=== PATIENT | female | born 1965 | race Caucasian/White ===

== ENCOUNTER 2018-01-13 14:55 | Emergency (ER) | payer MEDICARE, SELFPAY ==
[2018-01-13 14:55] VITALS: BP 124/55; PULSE 64; RESP 16; TEMP 36.6; O2SAT 97; BMI 36.5
--- NOTE | 2018-01-13 15:13 | RAD_ITS ---
STUDY: X-RAY - LUMBAR SPINE REASON FOR EXAM: Female, 52 years old. Was pumping gas and had a sharp pain in left hip TECHNIQUE: 3 view(s) of the lumbar spine were obtained. COMPARISON: None FINDINGS: Normal lumbar lordosis. There is no substantial scoliosis. There is a normal alignment of the vertebrae. There is multilevel endplate spondylosis of the lumbar vertebrae. There is multi-level degenerative disc disease with multi-level disc space narrowing. There are atherosclerotic vascular calcifications. There is bilateral facet arthropathy. The soft tissue structures are unremarkable. RAD/Lumbar Spine 2 or 3 Views IMPRESSION: Degenerative changes of the spine, as detailed above. There are atherosclerotic vascular calcifications. Electronically Signed: Maicol Rutherford MD at 16:25 EDT , Service support ,
[2018-01-13 15:47] LABS: International Normalized Ratio 2.4; Prothrombin Time (Protime)PT. 26.1 SECONDS (11.7-14.9)
[2018-01-13] MEDS: fentaNYL 100 MCG/2 ML Ampul 50 MCG IM (15:49)
[2018-01-13] MEDS: Ondansetron 4 MG/2 ML Vial IM (15:49)
--- NOTE | 2018-01-13 16:00 | RAD_ITS ---
STUDY: X-RAY - PELVIS AND LEFT HIP REASON FOR EXAM: Female, 52 years old. Was pumping gas and had a sharp pain in left hip TECHNIQUE: Radiological exam, hip, unilateral, with pelvis when performed; 2 or 3 views. COMPARISON: None. FINDINGS: There is a non-specific bowel gas pattern. Normal visualized soft tissue structures. Normal bilateral iliac wings, sacroiliac joints and visualized sacrum. Normal bilateral superior and inferior pubic rami. Normal pubic symphysis. Normal bilateral ischial tuberosities. Normal visualized femoral head. Normal acetabulum. Normal hip joint. RAD/Hip 2-3 Views with Pelvis IMPRESSION: Normal x-ray examination of the pelvis and hip. Electronically Signed: Maicol Rutherford MD at 16:35 EDT , Service support ,
--- NOTE | 2018-01-13 16:53 | ED.DCSUM_ITS ---
- ER Visit Summary Date of Service: 01/13/18 Chief Complaint: Left hip pain and back pain History of Present Illness: The patient is a 52 F who twisted her left hip and back when getting out of a car earlier today. This happened at 10 AM, and it has continued to get worse. She denies any history of this. She did not fall. The pain does radiate down her left leg and she reports some numbness and tingling in her left toes. Denies abdominal pain or GI symptoms. Denies any urinary symptoms. She does not make very much urine and has end-stage renal disease. She did go to dialysis today. She also takes Coumadin and she is unsure of her INR. No fevers, skin changes, or any other associated symptoms. Physical Examination: Vital signs unremarkable and patient is afebrile. She appears uncomfortable but not toxic or in distress. Heart regular. Lungs clear. Abdomen soft, nontender, nondistended, no masses. Back was nontender and showed a normal inspection. Left hip showed a normal inspection. She did have diffuse pain on palpation over the greater trochanter region. Negative logroll. No shortening or abnormal rotation. She was neurovascularly intact distally. The skin appeared normal. Test Results: X-rays of the lumbar back and left hip show degenerative changes and vascular calcifications, but otherwise no acute abnormalities. Emergency Department Course and Treatment: Patient was treated with fentanyl and Zofran while awaiting results. She did have improvement in her pain. Her INR was therapeutic at 2.4. Her symptoms improved, but she had no change in her exam. She was able to ambulate without assistance. She would like to go home. I encouraged her to monitor for any new or worsening symptoms, abdominal pain, change in sensation, redness, warmth, swelling, fevers, or any other concerning symptoms. Return right away for any problems. Treatment Plan: Prescription database was unremarkable for any opioids. She was given a short course of Percocet and also some Flexeril. Disposition: Discharged Impression: 1. Left hip pain This note was generated with [employer] dictation software. It may contain incorrect words, spelling, and punctuation that were not noted in review of the chart prior to signing ED Disposition - Plan for ED Patient: Chief Complaint: Back Referrals: Tai Vieyra MD [Primary Care Provider] -
--- NOTE | 2018-01-13 16:53 | ED.DEP ---
ED Disposition - Plan for ED Patient: Chief Complaint: Back Instructions: ED Low Back Pain Injury Prescriptions: Oxycodone HCl/Acetaminophen [Percocet 5/325] 1 tab PO Q6H PRN PRN 3 Days #12 tab PRN Reason: Pain Cyclobenzaprine [Flexeril] 10 mg PO TID PRN #20 tab PRN Reason: Muscle Spasm Referrals: Tai Vieyra MD [Primary Care Provider] -
== END 2018-01-13 17:10 | disposition home or self-care (01) ==
PROVIDERS: Emergency Provider Emergency Medicine; Family Provider Family Medicine; PCP Family Medicine
DX: M25.552 Pain in left hip (principal); I25.10 Atherosclerotic heart disease of native coronary artery without angina pectoris; I12.0 Hypertensive chronic kidney disease with stage 5 chronic kidney disease or end stage renal disease; N18.6 End stage renal disease; Z86.718 Personal history of other venous thrombosis and embolism; Z79.01 Long term (current) use of anticoagulants; Z79.899 Other long term (current) drug therapy
CPT/HCPCS: 72100; 73502; 85610; 96372; 99282; J7030; A4216; J2405

== ENCOUNTER → 2018-02-23 10:37 | Outpatient (CLI) | payer MEDICARE, SELFPAY | PROVIDERS: Family Provider Family Medicine; PCP Family Medicine; Visit Provider Family Medicine | DX: M17.0 Bilateral primary osteoarthritis of knee (principal) | CPT/HCPCS: 73564 ==

== ENCOUNTER → 2018-03-02 12:04 | Outpatient (CLI) | payer MEDICARE, SELFPAY | PROVIDERS: Family Provider Family Medicine; PCP Family Medicine; Visit Provider Family Medicine | DX: M19.91 Primary osteoarthritis, unspecified site (principal) | CPT/HCPCS: 73560 ==

== ENCOUNTER 2018-04-08 10:36 | Emergency (ER) | payer MEDICARE, SELFPAY ==
[2018-04-08 10:37] VITALS: BP 135/70; PULSE 71; RESP 16; TEMP 36.4; O2SAT 96; BMI 37.8
--- NOTE | 2018-04-08 10:56 | VDLE_ITS ---
Reason For Study: LEG PAIN RIGHT LEFT CFV is compressible, spontaneous, phasic, GSV is normal. competent and demonstrates normal CFV is compressible, spontaneous, phasic, augmentation. competent, and demonstrates normal Procedure augmentation. Exam performed portable in ED. FV is compressible, spontaneous, phasic, A preliminary report was called and/or faxed competent and demonstrates normal to Dr. Cadena. augmentation. POP V is compressible, spontaneous, phasic, competent and demonstrates normal augmentation. T/P Trunk is compressible. PTV is compressible. LT PerV is compressible. Interpretation Summary There is no evidence of left lower extremity deep vein thrombosis. Left greater saphenous vein appears patent and compressible segmentally. Normal flow patterns right common femoral vein Ordering Physician: Harrison Cadena Referring Physician: John Bell Performed By: Serena Palacios RVT
--- NOTE | 2018-04-08 12:12 | ED.DCSUM_ITS ---
- ER Visit Summary Date of Service: 04/08/18 Chief Complaint: [Left leg pain] History of Present Illness: The patient is a 52 F [since the emergency department complaint of pain in her left leg that started about 5 days ago. Patient denies any significant trauma other than her niece's dog jumped onto her left leg and caused a slight scratch the back of her calf. Patient describes pain mostly in her calf that is worse with standing and walking. Patient states that today she had severe pain in her left calf and foot kind of went numb so she fell and then did not want to bear any weight afterwards due to the pain. Patient denies any other injuries. Patient concerned that she does have a history of DVT in that leg however she is on Coumadin currently. Patient states that she had an INR checked 2 days ago and it was elevated 3.7 therefore she was told to hold her Coumadin and have it rechecked in 2 days.] Physical Examination: [HEENT-PERRLA, EOMI. Cranial nerves II through XII grossly intact. TMs clear. Mucous membranes moist. No adenopathy. Cardiovascular-regular rate and rhythm without murmur or ectopy Lungs-clear to auscultation, chest wall stable without crepitus or subcu emphysema Abdomen-normoactive bowel sounds, soft, nontender, no rebound or rigidity, no peritoneal signs. Extremities-intact ?4, normal range of motion, normal pulses. Left calf-patient has diffuse tenderness to palpation over the calf. There is no erythema or warmth noted. No ropes or cords are palpated. She is nervously intact with normal dorsal pedal, posterior tibial, popliteal, and femoral pulses in the leg. Test Results: [Venous duplex of the left lower extremity obtained showed no evidence of DVT.] Emergency Department Course and Treatment: [Patient will be given crutches and a prescription for [place] for pain.] Treatment Plan: [Patient will be given referral to orthopedics for follow-up.] Disposition: [Discharged home in stable condition] Impression: [Left calf strain] This note was generated with [employer] software. It may contain incorrect words, spelling, and punctuation that were not noted in review of the chart prior to signing ED Disposition - Plan for ED Patient: Chief Complaint: Lower Extremity Injury Referrals: Tai Vieyra MD [Primary Care Provider] -
--- NOTE | 2018-04-08 12:14 | DCINST.ED_ITS ---
ED Disposition - Plan for ED Patient: Chief Complaint: Lower Extremity Injury Instructions: ED Strain Muscle Ext Prescriptions: Hydrocodone/Acetaminophen [[place] 5-325 Tablet] 1 - 2 ea PO 4X/DAY PRN PRN 5 Days #20 tab PRN Reason: Pain Referrals: Tai Vieyra MD [Primary Care Provider] - Spencer Spivey MD [STAFF PHYSICIAN] - 3-5 Days
[2018-04-08 12:55] VITALS: BP 137/69; PULSE 77; RESP 15; O2SAT 96
== END 2018-04-08 12:56 | disposition home or self-care (01) ==
LOC: ED 11:08
PROVIDERS: Emergency Provider Emergency Medicine; Family Provider Family Medicine; PCP Family Medicine
DX: S86.912A Strain of unspecified muscle(s) and tendon(s) at lower leg level, left leg, initial encounter (principal); W54.1XXA Struck by dog, initial encounter; Y93.9 Activity, unspecified; Y92.9 Unspecified place or not applicable; I25.10 Atherosclerotic heart disease of native coronary artery without angina pectoris; E78.00 Pure hypercholesterolemia, unspecified; I12.9 Hypertensive chronic kidney disease with stage 1 through stage 4 chronic kidney disease, or unspecified chronic kidney disease; N18.9 Chronic kidney disease, unspecified; Z99.2 Dependence on renal dialysis; Z86.718 Personal history of other venous thrombosis and embolism; Z79.01 Long term (current) use of anticoagulants; Z79.899 Other long term (current) drug therapy; M79.662 Pain in left lower leg
CPT/HCPCS: 93971; 99283

== ENCOUNTER → 2019-01-25 | Outpatient (CLI) | payer MEDICARE, SELFPAY ==
[2018-08-10 10:39] VITALS: BMI 38.4
== END | disposition home or self-care (01) ==
LOC: LABSPEC 10:14
PROVIDERS: Family Provider Family Medicine; PCP Family Medicine; Referring Provider Family Medicine; Visit Provider Family Medicine
DX: J06.9 Acute upper respiratory infection, unspecified (principal)
CPT/HCPCS: 87070

== ENCOUNTER → 2019-07-07 12:00 | Outpatient (CLI) | payer MEDICARE, SELFPAY ==
[2019-03-13 07:52] VITALS: BMI 38.5
[2019-07-07 13:05] LABS: Potassium 4.7 mmol/L (3.5-5.1)
== END ==
PROVIDERS: Family Provider Family Medicine; PCP Family Medicine; Visit Provider Internal Medicine Nephrology
DX: E87.5 Hyperkalemia (principal); N18.6 End stage renal disease
CPT/HCPCS: 84132

== ENCOUNTER → 2019-11-16 14:26 | Outpatient (CLI) | payer MEDICARE, MEDICAID, SELFPAY ==
[2019-03-13 07:52] VITALS: BMI 38.5
[2019-11-16 17:37] LABS: Anion Gap 11 (5-15); BUN 30 mg/dL (7-18); BUN/Creat Ratio 4.1 RATIO (10-20); Calcium,Total 7.7 mg/dL (8.5-10.1); Chloride 95 mmol/L (98-107); Creatinine, Serum 7.28 mg/dL (0.55-1.02); EST Glomerular Filtration Rate 6 mL/min (>60); Est Glom Filt Rate - Afr Amer 8 mL/min (>60); Glucose 98 mg/dL (74-106); Potassium 3.6 mmol/L (3.5-5.1); Sodium Level 136 mmol/L (136-145)
[2019-11-16 17:39] LABS: Hematocrit 52.5 % (37-47); Hemoglobin 15.9 g/dL (12.0-15.0); Mean Corp Hgb Conc 30.3 g/dL (32-36); Mean Corpuscular Hgb 26.9 pg (27.0-32.0); Mean Corpuscular Volume 88.8 fL (81-99); Mean Platelet Vol. 9.1 fl (6.2-12.0); Platelet Count 338 K/mm3 (150-450); RBC Distribution Width CV 15.9 % (11.6-14.6); RBC Distribution Width SD 51.5 fl (35.1-43.9); Red Blood Count 5.91 M/mm3 (4.2-5.4); White Blood Count 8.1 K/mm3 (4.4-11.0)
[2019-11-16 17:44] LABS: Prothrombin Time (Protime)PT. 43.6 SECONDS (11.7-14.9)
[2019-11-16 18:50] LABS: International Normalized Ratio 4.6
== END ==
PROVIDERS: PCP Family Medicine
DX: Z01.818 Encounter for other preprocedural examination (principal); Z79.01 Long term (current) use of anticoagulants
CPT/HCPCS: 36415; 80048; 85027; 85610

== ENCOUNTER → 2019-11-29 13:26 | Outpatient (CLI) | payer MEDICARE, MEDICAID, SELFPAY ==
[2019-03-13 07:52] VITALS: BMI 38.5
[2019-11-29 15:44] LABS: International Normalized Ratio 2.3; Prothrombin Time (Protime)PT. 24.5 SECONDS (11.7-14.9)
== END ==
PROVIDERS: PCP Family Medicine; Referring Provider Family Medicine; Visit Provider Family Medicine
DX: I82.621 Acute embolism and thrombosis of deep veins of right upper extremity (principal)
CPT/HCPCS: 36415; 85610

== ENCOUNTER 2019-12-11 01:14 | Emergency (ER) | payer MEDICARE, MEDICAID, SELFPAY ==
[2019-03-13 07:52] VITALS: BMI 38.5
[2019-12-11 01:15] VITALS: BP 113/59; PULSE 78; RESP 16; TEMP 36.6; O2SAT 97; BMI 38.7
--- NOTE | 2019-12-11 01:43 | ED.DCSUM_ITS ---
History of Present Illness Chief Complaint: Nosebleed Informant: Patient Onset: Hours - 3 hours Current Severity: Mild Maximum Severity: Moderate Narrative: Patient presents with right-sided nosebleed for the past 3 hours. Symptoms started after she blew her nose. She is currently on Coumadin as well as Plavix. She denies recent URI symptoms or facial trauma. - Past Medical History (1) Atherosclerosis of coronary artery of [place] heart without angina pectoris Status: Chronic (2) Benign essential hypertension Status: Chronic (3) ESRD (end stage renal disease) on dialysis Status: Chronic (4) History of DVT (deep vein thrombosis) Status: Chronic Comment: LLE (5) Hyperlipidemia Status: Chronic (6) History of coronary artery stent placement Status: Resolved Comment: [id number] RCA w/ 3.5 x 15 mm Xience Stent, Mid RCA w/ 3.25 x 23 mm Xience Stent and POBA-RBLB 04/21/2016; PCI-Distal RCA/PDA B ifurcation with T stent w/ 2.75 x 18 mm Xience Stent and [id number] w/ 2.5 x 23 mm Xience Stent and Mid-LAD w/ 3.0 x 15 mm Xience Stent 04/22/16 Past Medical History - Allergies and Home Meds Allergies/Adverse Reactions: Allergies amoxicillin Allergy (Verified 12/11/19 01:52) Rash doxercalciferol [From Hectorol] Allergy (Verified 12/11/19 01:52) Hives etodolac Allergy (Verified 12/11/19 01:52) Rash Penicillins [PCN] Allergy (Verified 12/11/19 01:52) Rash sulfamethoxazole [From Bactrim] Allergy (Verified 12/11/19 01:52) Rash tramadol Allergy (Verified 12/11/19 01:52) Rash trimethoprim [From Bactrim] Allergy (Verified 12/11/19 01:52) Rash strawberry Adverse Reaction (Verified 12/11/19 01:52) Vomiting Primary Care Physician: Tai Vieyra MD [Primary Care Provider] - Prior records reviewed: Yes Surgical History: noncontributory, angioplasty Smoking Status: Never smoker - Family History Sibling Family History: Family History (Last Reviewed 01/30/19 @ 08:39 by Hanane Barth) Father Hypertension Kidney disease Mother Diabetes Family History: Reports: Renal Disease - Polycystic kidney disease?brother Paternal Family History: Family History (Last Reviewed 01/30/19 @ 08:39 by Hanane Barth) Father Hypertension Kidney disease Mother Diabetes Family History: Reports: Renal Disease - PCKD father; Maternal Family History: Family History (Last Reviewed 01/30/19 @ 08:39 by Hanane Barth) Father Hypertension Kidney disease Mother Diabetes Family History: Reports: Diabetes Review of Systems General: Denies: Chills, Fever Eyes: Denies: Visual changes - bilaterally ENT: Reports: - - Epistaxis right nare Cardiovascular: Denies: Chest pain Respiratory: Denies: Dyspnea, Cough Gastrointestinal: Denies: Abdominal pain, Nausea, Vomiting, Diarrhea Skin: Denies: Rash Neurological: Denies: Headache Hematologic: Denies: Easy bruising, Easy bleeding Allergy: Denies: Uticaria Physical Exam Vital Signs/Narrative: Vital Signs Temp Pulse Resp BP Pulse Ox 12/11/19 01:15 97.9 F 78 16 113/59 L 97 Inital Vital Signs reviewed: Yes General: Well nourished, Well developed Head: Normocephalic ENT: Moist mucous membranes Neck: Supple Cardiovascular: Regular rate, Regular rhythm Respiratory: No distress, CTA bilaterally Abdomen: Soft, Nontender Skin: Normal color Neurological: Alert, Oriented x3 Diagnostic/Tx/Re-eval Laboratory Results 12/11/19 12/11/19 02:21 02:21 WBC 7.3 RBC 5.26 Hgb 13.8 Hct 46.2 MCV 87.8 MCH 26.2 L MCHC 29.9 L RDW Std Deviation 52.8 H RDW Coeff of Tana 16.5 H Plt Count 308 MPV 8.9 Immature Gran % (Auto) 0.100 Neut % (Auto) 64.6 Lymph % (Auto) 18.1 L [place] % (Auto) 9.7 Eos % (Auto) 6.7 H Baso % (Auto) 0.8 Absolute Neuts (auto) 4.7 Absolute Lymphs (auto) 1.33 Nucleated RBC % 0 PT 34.9 H INR 3.5 H* - Medical Decision Making [place] soaked with Afrin and Cetacaine is placed in the right nare. After 5 minutes this is removed. Examination does reveal some blood noted in the proximal portion of the nose. There is inflammation but no definitive source of bleeding noted. Merisel packing is placed. On repeat evaluation she is had no further bleeding. INR is elevated at 3.5 and patient was advised to hold her Coumadin tonight. She is referred to Dr. Fleming for follow-up in the next 48 to 72 hours. ED Disposition - Plan for ED Patient: Disposition: Home or Assisted Living Diagnosis: Nosebleed Instructions: ED Epistaxis Adult Referrals: Jett Barron MD [STAFF PHYSICIAN] - 2 Days
[2019-12-11] MEDS: Oxymetazoline 0.05% 1 SPRAY SPRAY.BTL 2 SPRAY NASAL (02:16)
[2019-12-11] MEDS: Tetracaine/Benzocaine/Butamben 1 APPLIC TOPICAL (02:17)
[2019-12-11 02:27] LABS: Absolute Lymphocyte Count 1.33 X10^3/uL (0.83-4.51); Absolute Neutrophil Count 4.7 X10^3/uL (2.0-7.7); Basophil# 0.06 X10^3/uL; Basophil% 0.8 % (0-1); Eosinophil# 0.49 X10^3/uL; Eosinophils% 6.7 % (0-5); Hematocrit 46.2 % (37-47); Hemoglobin 13.8 g/dL (12.0-15.0); Lymphocyte # 1.33 X10^3/ul (4.0); Lymphocyte % 18.1 % (19-41); Mean Corp Hgb Conc 29.9 g/dL (32-36); Mean Corpuscular Hgb 26.2 pg (27.0-32.0); Mean Corpuscular Volume 87.8 fL (81-99); Mean Platelet Vol. 8.9 fl (6.2-12.0); Monocyte# 0.71 X10^3/uL; Monocyte% 9.7 % (0-10); NRBC Flagged by Analyzer 0 % (0-5); Neutrophil # 4.73 X10^3/uL (2.7-7.7); Neutrophil % 64.6 % (47-70); Platelet Count 308 K/mm3 (150-450); RBC Distribution Width CV 16.5 % (11.6-14.6); RBC Distribution Width SD 52.8 fl (35.1-43.9); Red Blood Count 5.26 M/mm3 (4.2-5.4); White Blood Count 7.3 K/mm3 (4.4-11.0)
[2019-12-11 02:36] LABS: Prothrombin Time (Protime)PT. 34.9 SECONDS (11.7-14.9)
[2019-12-11 02:40] LABS: International Normalized Ratio 3.5
[2019-12-11 02:54] VITALS: BP 139/74; PULSE 82; RESP 15; O2SAT 98
== END 2019-12-11 03:19 | disposition home or self-care (01) ==
LOC: ED 02:51
PROVIDERS: Emergency Provider Emergency Medicine; PCP Family Medicine
DX: R04.0 Epistaxis (principal); I12.0 Hypertensive chronic kidney disease with stage 5 chronic kidney disease or end stage renal disease; N18.6 End stage renal disease; Z99.2 Dependence on renal dialysis; I25.10 Atherosclerotic heart disease of native coronary artery without angina pectoris; E78.5 Hyperlipidemia, unspecified; Z79.01 Long term (current) use of anticoagulants; Z79.02 Long term (current) use of antithrombotics/antiplatelets; Z79.899 Other long term (current) drug therapy; Z88.0 Allergy status to penicillin; Z88.1 Allergy status to other antibiotic agents; Z88.2 Allergy status to sulfonamides; Z88.8 Allergy status to other drugs, medicaments and biological substances; Z88.5 Allergy status to narcotic agent; Z86.718 Personal history of other venous thrombosis and embolism; Z95.5 Presence of coronary angioplasty implant and graft
CPT/HCPCS: 36415; 85025; 85610; 99282

== ENCOUNTER → 2019-12-18 14:29 | Outpatient (CLI) | payer MEDICARE, MEDICAID, SELFPAY ==
[2019-12-11 01:15] VITALS: BMI 38.7
[2019-12-18 17:48] LABS: International Normalized Ratio 1.6; Prothrombin Time (Protime)PT. 18.5 SECONDS (11.7-14.9)
== END ==
PROVIDERS: PCP Family Medicine; Referring Provider Family Medicine; Visit Provider Family Medicine
DX: I82.621 Acute embolism and thrombosis of deep veins of right upper extremity (principal)
CPT/HCPCS: 36415; 85610

== ENCOUNTER 2019-12-28 14:27 | Outpatient (RCR) | payer MEDICARE, SELFPAY ==
[2019-12-25 11:31] VITALS: BMI 38.2
[2019-12-28 18:08] LABS: International Normalized Ratio 2.4; Prothrombin Time (Protime)PT. 25.9 SECONDS (11.7-14.9)
== END 2019-12-28 18:00 | disposition home or self-care (01) ==
LOC: MTLAB 14:27
PROVIDERS: PCP Family Medicine; Referring Provider Family Medicine; Visit Provider Family Medicine
DX: I82.621 Acute embolism and thrombosis of deep veins of right upper extremity (principal)
CPT/HCPCS: 36415; 85610

== ENCOUNTER 2020-02-19 13:54 | Outpatient (RCR) | payer MEDICARE, SELFPAY ==
[2019-12-25 11:31] VITALS: BMI 38.2
[2020-02-19 15:18] LABS: International Normalized Ratio 1.7; Prothrombin Time (Protime)PT. 19.7 SECONDS (11.7-14.9)
== END 2020-03-10 23:59 ==
LOC: MFPLAB 13:54
PROVIDERS: PCP Family Medicine; Referring Provider Family Medicine; Visit Provider Family Medicine
DX: I82.621 Acute embolism and thrombosis of deep veins of right upper extremity (principal)
CPT/HCPCS: 36415; 85610

== ENCOUNTER → 2020-02-22 08:47 | Outpatient (CLI) | payer MEDICARE, MEDICAID, SELFPAY ==
[2019-12-25 11:31] VITALS: BMI 38.2
[2020-02-22 10:02] LABS: International Normalized Ratio 1.9; Prothrombin Time (Protime)PT. 21.3 SECONDS (11.7-14.9)
== END ==
PROVIDERS: PCP Family Medicine; Referring Provider Family Medicine; Visit Provider Family Medicine
DX: I82.621 Acute embolism and thrombosis of deep veins of right upper extremity (principal)
CPT/HCPCS: 36415; 85610

== ENCOUNTER → 2020-02-28 14:33 | Outpatient (CLI) | payer MEDICARE, MEDICAID, SELFPAY ==
[2019-12-25 11:31] VITALS: BMI 38.2
[2020-02-28 18:20] LABS: International Normalized Ratio 2.3; Prothrombin Time (Protime)PT. 25.2 SECONDS (11.7-14.9)
== END ==
PROVIDERS: PCP Family Medicine; Referring Provider Family Medicine; Visit Provider Family Medicine
DX: I82.621 Acute embolism and thrombosis of deep veins of right upper extremity (principal)
CPT/HCPCS: 36415; 85610

== ENCOUNTER → 2020-03-13 09:06 | Outpatient (CLI) | payer MEDICARE, MEDICAID, SELFPAY ==
[2019-12-25 11:31] VITALS: BMI 38.2
--- NOTE | 2020-03-13 09:10 | RAD_ITS ---
STUDY: X-RAY - ABDOMEN/PELVIS REASON FOR EXAM: Female, 54 years old. Abdominal pain, colicky TECHNIQUE: 3 frontal images of the abdomen were obtained. COMPARISON: Lumbar spine dated 01/13/2018 FINDINGS: Normal visualized lung bases. There is an unremarkable bowel gas pattern. There is no demonstrated free abdominal air. There are grossly stable somewhat serpiginous calcifications projecting over the mid and lower abdomen. Normal soft tissue structures. Normal visualized osseous structures. RAD/Abd Inc Decub and/or Erect IMPRESSION: Nonspecific bowel gas pattern. Electronically Signed: Gabrielle Chandler MD at 19:46 EDT Tel , Service support ,
[2020-03-13 12:50] LABS: ALB/GLOB Ratio 0.9 RATIO (0.9-2.4); AST(SGOT) 20 U/L (15-37); Alanine Aminotransfer ALT/SGPT 25 U/L (13-56); Albumin, Serum 3.4 g/dL (3.2-5.0); Alkaline Phosphatase 84 U/L (45-117); Anion Gap 9 (5-15); BUN 39 mg/dL (7-18); BUN/Creat Ratio 3.8 RATIO (10-20); Calcium,Total 7.4 mg/dL (8.5-10.1); Chloride 99 mmol/L (98-107); EST Glomerular Filtration Rate 4 mL/min (>60); Est Glom Filt Rate - Afr Amer 5 mL/min (>60); Globulin 3.9 g/dL (2.2-4.2); Glucose 94 mg/dL (74-106); Potassium 4.4 mmol/L (3.5-5.1); Protein, Total 7.3 g/dL (6.4-8.2); Sodium Level 137 mmol/L (136-145)
[2020-03-13 12:51] LABS: Absolute Lymphocyte Count 0.88 X10^3/uL (0.83-4.51); Absolute Neutrophil Count 4.1 X10^3/uL (2.0-7.7); Basophil# 0.03 X10^3/uL; Basophil% 0.5 % (0-1); Eosinophil# 0.11 X10^3/uL; Hematocrit 48.9 % (37-47); Hemoglobin 14.8 g/dL (12.0-15.0); Lymphocyte # 0.88 X10^3/ul (4.0); Lymphocyte % 15.9 % (19-41); Mean Corp Hgb Conc 30.3 g/dL (32-36); Mean Corpuscular Hgb 25.5 pg (27.0-32.0); Mean Corpuscular Volume 84.3 fL (81-99); Mean Platelet Vol. 9.1 fl (6.2-12.0); Monocyte# 0.37 X10^3/uL; Monocyte% 6.7 % (0-10); NRBC Flagged by Analyzer 0 % (0-5); Neutrophil # 4.14 X10^3/uL (2.7-7.7); Neutrophil % 74.7 % (47-70); Platelet Count 326 K/mm3 (150-450); RBC Distribution Width CV 18.8 % (11.6-14.6); RBC Distribution Width SD 54.6 fl (35.1-43.9); White Blood Count 5.5 K/mm3 (4.4-11.0)
[2020-03-13 12:56] LABS: Erythrocyte Sedimentation Rate 35 mm/hr (0-30)
== END ==
PROVIDERS: PCP Family Medicine; Referring Provider Family Medicine; Visit Provider Family Medicine
DX: R10.84 Generalized abdominal pain (principal)
CPT/HCPCS: 36415; 74019; 80053; 85025; 85652; 86140; 87086; 87088

== ENCOUNTER → 2020-03-19 06:56 | Outpatient (CLI) | payer MEDICARE, MEDICAID, SELFPAY ==
[2019-12-25 11:31] VITALS: BMI 38.2
--- NOTE | 2020-03-19 06:56 | CT_ITS ---
STUDY: CT ABDOMEN WITHOUT CONTRAST REASON FOR EXAM: Female, 54 years old. Abdomen pain, fullness/distention, hx polycystic kidney disease on dialysis x 12 years, defibrillator. RADIATION DOSAGE (If Supplied By Facility): CTDIvol = ( 20.22 ) mGy, DLP = ( 970.51 ) mGycm TECHNIQUE: Transaxial images were obtained without intravenous contrast, and oral contrast. Sagittal and coronal images were reconstructed. Individualized dose optimization techniques were used for this CT. COMPARISON: None. FINDINGS: The visualized lung bases are unremarkable. Coronary artery calcification. Small pericardial effusion. There is decreased attenuation of the liver consistent with steatosis. Hepatomegaly. Normal gallbladder and extrahepatic biliary system. Normal spleen. Normal pancreas. Normal bilateral adrenal glands. Markedly enlarged bilateral kidneys with multiple cysts and rim-like calcifications involving the cysts in keeping with the patient''s history of polycystic kidney disease. Normal visualized stomach. Normal small intestine. Normal colon. The appendix is visualized and appears normal. There is diffuse atherosclerotic calcification of the abdominal aorta and its major visceral branches, without a demonstrated aneurysm. Normal inferior vena cava. Normal retroperitoneum. Normal abdominal wall. Straightening of the normal lumbar lordosis. CT/Abdomen without IV Contrast IMPRESSION: Marked enlargement of both kidneys with multiple bilateral renal cysts with rim-like calcifications. Hepatomegaly with fatty infiltration of the liver. Electronically Signed: West Best, at 10:40 EDT , Service support ,
== END ==
PROVIDERS: PCP Family Medicine; Referring Provider Family Medicine; Visit Provider Family Medicine
DX: R10.84 Generalized abdominal pain (principal)
CPT/HCPCS: 74150

== ENCOUNTER 2020-04-07 08:14 | Outpatient (RCR) | payer MEDICARE, MEDICAID, SELFPAY ==
[2019-12-25 11:31] VITALS: BMI 38.2
[2020-04-07 10:02] LABS: Prothrombin Time (Protime)PT. 41.2 SECONDS (11.7-14.9)
[2020-04-07 10:13] LABS: International Normalized Ratio 4.3
== END 2020-04-09 23:59 ==
LOC: MFPLAB 08:14
PROVIDERS: PCP Family Medicine; Referring Provider Family Medicine; Visit Provider Family Medicine
DX: I82.621 Acute embolism and thrombosis of deep veins of right upper extremity (principal)
CPT/HCPCS: 36415; 85610

== ENCOUNTER → 2020-04-11 09:01 | Outpatient (CLI) | payer MEDICARE, MEDICAID, SELFPAY ==
[2019-12-25 11:31] VITALS: BMI 38.2
[2020-04-11 10:25] LABS: International Normalized Ratio 2.1; Prothrombin Time (Protime)PT. 23.4 SECONDS (11.7-14.9)
== END ==
PROVIDERS: PCP Family Medicine; Referring Provider Family Medicine; Visit Provider Family Medicine
DX: I82.621 Acute embolism and thrombosis of deep veins of right upper extremity (principal)
CPT/HCPCS: 36415; 85610

== ENCOUNTER → 2020-06-13 08:45 | Outpatient (CLI) | payer MEDICARE, MEDICAID, SELFPAY ==
[2019-12-25 11:31] VITALS: BMI 38.2
[2020-06-13 10:27] LABS: Prothrombin Time (Protime)PT. 38.2 SECONDS (11.7-14.9)
[2020-06-13 10:53] LABS: International Normalized Ratio 3.9
== END ==
PROVIDERS: PCP Family Medicine; Referring Provider Family Medicine; Visit Provider Family Medicine
DX: I82.409 Acute embolism and thrombosis of unspecified deep veins of unspecified lower extremity (principal)
CPT/HCPCS: 36415; 85610

== ENCOUNTER → 2020-09-16 14:19 | Outpatient (CLI) | payer MEDICARE, MEDICAID, SELFPAY ==
[2019-12-25 11:31] VITALS: BMI 38.2
[2020-09-16 17:52] LABS: International Normalized Ratio 2.8; Prothrombin Time (Protime)PT. 29.1 SECONDS (11.7-14.9)
== END ==
PROVIDERS: PCP Family Medicine; Visit Provider Family Medicine
DX: I82.621 Acute embolism and thrombosis of deep veins of right upper extremity (principal)
CPT/HCPCS: 36415; 85610

== ENCOUNTER 2020-09-23 08:00 | Outpatient (RCR) | payer MEDICARE, SELFPAY ==
[2019-12-25 11:31] VITALS: BMI 38.2
[2020-09-23] MEDS: COVID-19 VACC, MRNA(PFIZER)/PF 30 MCG/0.3 ML SYRINGE IM (13:19)
[2020-10-14] MEDS: COVID-19 VACC, MRNA(PFIZER)/PF 30 MCG/0.3 ML SYRINGE IM (13:13)
== END 2020-12-16 23:59 ==
LOC: IMMUN 08:00
PROVIDERS: PCP Family Medicine; Visit Provider Family Medicine
DX: Z23 Encounter for immunization (principal)
CPT/HCPCS: 0001A; 0002A; 91300

== ENCOUNTER → 2020-10-07 09:57 | Outpatient (CLI) | payer MEDICARE, MEDICAID, SELFPAY ==
[2019-12-25 11:31] VITALS: BMI 38.2
[2020-09-30 09:36] VITALS: BMI 37.6
--- NOTE | 2020-10-07 09:59 | ART_ITS ---
Reason For Study: ATHEROSCLEROSIS Procedure A bilateral lower extremity continuous wave Doppler with analog waveform analysis,segmental pressures,and ankle brachial indexes with exercise. Ordered as KEITH w/ exercise. Left Segmental Pressures Left brachial= N/AmmHg. Left posterior tibial artery = 116mmHg. Left dorsalis pedis artery = 120mmHg. Left digit = 86 mmHg. The left dorsalis pedis waveforms are monophasic. The left posterior tibial artery waveforms are monophasic. Unable to get Left Brachial pressure d/t fistula placement for HD. Right Segmental Pressures Right brachial= 146mmHg. Right posterior tibial artery = NCmmHg. Right dorsalis pedis artery = 196mmHg. Right digit = 84 mmHg. The right posterior tibial artery waveforms are biphasic. The right dorsalis pedis waveforms are monophasic. Indices The right ankle brachial index by the dorsalis pedis is 1.34. The right ankle brachial index by the posterior tibial artery is N/A. The right digital-brachial index is .58. The right ankle brachial index by the dorsalis pedis post exercise is .89. The left ankle brachial index by the dorsalis pedis is .82. The left ankle brachial index by the posterior tibial artery is .79. The left digital- brachial index is .59. The left dorsalis pedis index post exercise is .78. VL/Ankle Brachial Index Interpretation Summary Artificially elevated systolic pressure right PT making the ankle-brachial inde x not calculable Right DP ankle-brachial index is normal but may also be artificially elevated. Abnormal Doppler waveforms right posterior tibial is biphasic and right dorsali s pedis monophasic consistent with multi segmental or severe disease Abnormal left PT and DP index consistent with moderately severe disease althoug h the left PT and DP Doppler waveforms are monophasic consistent with a more severe level disease. Abnormal bilateral digital brachial indices Exercise indices are difficult to interpret as the patient was not exercised on a treadmill. There is slight decline on the right with recovery by 5 minutes. There is no signific ant change after exercise on the left. These findings do not correlate well with the resting tadeo dy. Ordering Physician: Tai Vieyra Referring Physician: Tai Vieyra Performed By: CHIDI BLANDON JENN
== END ==
PROVIDERS: PCP Family Medicine; Referring Provider Family Medicine; Visit Provider Family Medicine
DX: I70.92 Chronic total occlusion of artery of the extremities (principal)
CPT/HCPCS: 93922

== ENCOUNTER → 2021-02-04 08:56 | Outpatient (CLI) | payer MEDICARE, MEDICAID, SELFPAY ==
[2020-09-30 09:36] VITALS: BMI 37.6
[2021-02-04 10:21] LABS: Prothrombin Time (Protime)PT. 38.4 SECONDS (11.7-14.9)
== END ==
PROVIDERS: PCP Family Medicine; Referring Provider Family Medicine; Visit Provider Family Medicine
DX: I82.621 Acute embolism and thrombosis of deep veins of right upper extremity (principal)
CPT/HCPCS: 36415; 85610

== ENCOUNTER → 2021-02-17 13:37 | Outpatient (CLI) | payer MEDICARE, MEDICAID, SELFPAY ==
[2020-09-30 09:36] VITALS: BMI 37.6
[2021-02-17 15:29] LABS: International Normalized Ratio 3.5; Prothrombin Time (Protime)PT. 34.4 SECONDS (11.7-14.9)
== END ==
PROVIDERS: PCP Family Medicine; Referring Provider Family Medicine; Visit Provider Family Medicine
DX: Z79.01 Long term (current) use of anticoagulants (principal)
CPT/HCPCS: 36415; 85610

== ENCOUNTER → 2021-02-26 16:19 | Outpatient (CLI) | payer MEDICARE, MEDICAID, SELFPAY ==
[2021-02-26 17:48] LABS: International Normalized Ratio 2.9; Prothrombin Time (Protime)PT. 29.4 SECONDS (11.7-14.9)
== END ==
PROVIDERS: PCP Family Medicine; Referring Provider Family Medicine; Visit Provider Family Medicine
DX: I82.621 Acute embolism and thrombosis of deep veins of right upper extremity (principal)
CPT/HCPCS: 36415; 85610

== ENCOUNTER 2021-04-07 15:08 | Outpatient (RCR) | payer MEDICARE, MEDICAID, SELFPAY ==
[2021-04-07 15:34] LABS: International Normalized Ratio 3.4; Prothrombin Time (Protime)PT. 33.8 SECONDS (11.7-14.9)
== END 2021-04-09 23:59 ==
LOC: LABSPEC 15:08
PROVIDERS: PCP Family Medicine; Visit Provider Family Medicine
DX: I82.401 Acute embolism and thrombosis of unspecified deep veins of right lower extremity (principal)
CPT/HCPCS: 36415; 85610

== ENCOUNTER → 2021-04-23 11:57 | Outpatient (CLI) | payer MEDICARE, MEDICAID, SELFPAY ==
[2021-04-23 15:00] LABS: International Normalized Ratio 3.2; Prothrombin Time (Protime)PT. 31.9 SECONDS (11.7-14.9)
== END ==
PROVIDERS: PCP Family Medicine; Referring Provider Family Medicine; Visit Provider Family Medicine
DX: Z79.01 Long term (current) use of anticoagulants (principal)
CPT/HCPCS: 36415; 85610

== ENCOUNTER → 2021-06-09 16:31 | Outpatient (CLI) | payer MEDICARE, MEDICAID, SELFPAY ==
[2021-06-09 17:56] LABS: International Normalized Ratio 3.7; Prothrombin Time (Protime)PT. 36.2 SECONDS (11.7-14.9)
== END ==
PROVIDERS: PCP Family Medicine; Referring Provider Family Medicine; Visit Provider Family Medicine
DX: Z79.01 Long term (current) use of anticoagulants (principal)
CPT/HCPCS: 36415; 85610

== ENCOUNTER → 2021-06-23 | Outpatient (CLI) | payer MEDICARE, MEDICAID, SELFPAY ==
[2021-06-29 14:17] LABS: HPV Reflexed? YES, CHARGE PATIENT
== END | disposition home or self-care (01) ==
LOC: LABSPEC 15:58
PROVIDERS: PCP Family Medicine; Referring Provider Family Medicine; Visit Provider Family Medicine
DX: Z12.4 Encounter for screening for malignant neoplasm of cervix (principal)
CPT/HCPCS: 87624; 88175; G0145

== ENCOUNTER 2021-07-21 15:14 | Outpatient (RCR) | payer MEDICARE, MEDICAID, SELFPAY ==
[2021-07-21 15:57] LABS: International Normalized Ratio 3.3; Prothrombin Time (Protime)PT. 32.6 SECONDS (11.7-14.9)
== END 2021-08-10 18:00 | disposition home or self-care (01) ==
LOC: LAB 15:14
PROVIDERS: PCP Family Medicine; Visit Provider Family Medicine
DX: I82.621 Acute embolism and thrombosis of deep veins of right upper extremity (principal)
CPT/HCPCS: 85610

== ENCOUNTER 2021-07-30 15:05 | Outpatient (CLI) | payer MEDICARE, MEDICAID, SELFPAY ==
[2021-07-30 18:00] LABS: International Normalized Ratio 2.6; Prothrombin Time (Protime)PT. 26.6 SECONDS (11.7-14.9)
== END 2021-07-30 23:59 | disposition short-term general hospital (02) ==
LOC: MFPLAB 15:08
PROVIDERS: PCP Family Medicine; Referring Provider Family Medicine; Visit Provider Family Medicine
DX: Z79.01 Long term (current) use of anticoagulants (principal)
CPT/HCPCS: 36415; 85610

== ENCOUNTER 2021-08-18 15:39 | Outpatient (RCR) | payer MEDICARE, MEDICAID, SELFPAY | END 2021-09-07 23:59 | LOC: LABSPEC 15:39 | PROVIDERS: PCP Family Medicine; Visit Provider Family Medicine | DX: I82.621 Acute embolism and thrombosis of deep veins of right upper extremity (principal) | CPT/HCPCS: 36415; 85610 ==

== ENCOUNTER 2021-09-29 15:23 | Outpatient (CLI) | payer MEDICARE, MEDICAID, SELFPAY ==
[2021-09-29 17:55] LABS: International Normalized Ratio 2.2; Prothrombin Time (Protime)PT. 23.5 SECONDS (11.7-14.9)
== END 2021-09-29 23:59 | disposition home or self-care (01) ==
LOC: MFPLAB 15:24
PROVIDERS: PCP Family Medicine; Referring Provider Family Medicine; Visit Provider Family Medicine
DX: I82.621 Acute embolism and thrombosis of deep veins of right upper extremity (principal)
CPT/HCPCS: 36415; 85610

== ENCOUNTER 2021-11-25 15:00 | Outpatient (RCR) | payer MEDICARE, MEDICAID, SELFPAY ==
[2021-11-25 18:34] LABS: International Normalized Ratio 2.7; Prothrombin Time (Protime)PT. 28.2 SECONDS (11.7-14.9)
[2022-01-06 20:19] LABS: International Normalized Ratio 3.4; Prothrombin Time (Protime)PT. 33.8 SECONDS (11.7-14.9)
== END 2021-12-08 23:59 ==
LOC: LAB 15:00
PROVIDERS: PCP Family Medicine; Visit Provider Family Medicine
DX: Z86.718 Personal history of other venous thrombosis and embolism (principal)
CPT/HCPCS: 36415; 85610

== ENCOUNTER → 2022-01-18 | Outpatient (CLI) | payer MEDICARE, MEDICAID, SELFPAY ==
--- NOTE | 2022-01-18 09:06 | BI_ITS ---
MAMMOGRAPHY - BILATERAL SCREENING REASON FOR EXAM: Female, 56 years old. Routine annual screening examination. PERTINENT HISTORY: Mother with breast cancer. TECHNIQUE: Digital bilateral breast becky (3D mammographic acquisition) in the CC and MLO projections. 2-D mediolateral oblique (MLO) and craniocaudad (CC) views of both breasts were obtained. CAD: Full Field Digital Mammography with Computer Added Detection was performed. COMPARISON: None. Baseline examination. FINDINGS: Breast Composition: There are scattered areas of fibroglandular density. There is a 1.6 cm x 2.5 cm lobular mass in the slightly upper inner aspect of the right breast. There is a 5.7 mm nodule in the slightly upper lateral aspect of the left breast. Correlation with ultrasound of both breasts recommended. No other significant abnormalities are identified. BI/SCRN MAMM (CAD)W/BECKY BILAT IMPRESSION: Bilateral breast nodules as described. Targeted bilateral breast ultrasound recommended. ASSESSMENT CATEGORY: BIRADS Category 0: Incomplete. Need additional imaging evaluation. A letter regarding these results will be sent to the patient by the facility within 30 days. Approximately 10% of breast cancers are not detected by mammography. A normal mammogram should not delay biopsy of a clinically suspicious abnormality. [id number] Electronically Signed: West Best MD at 10:22 EDT ,
== END | disposition home or self-care (01) ==
LOC: OPBI 09:04
PROVIDERS: PCP Family Medicine; Visit Provider Family Medicine
DX: Z12.31 Encounter for screening mammogram for malignant neoplasm of breast (principal); Z80.3 Family history of malignant neoplasm of breast
CPT/HCPCS: 77063; 77067

== ENCOUNTER → 2022-01-22 | Outpatient (CLI) | payer MEDICARE, MEDICAID, SELFPAY ==
--- NOTE | 2022-01-22 08:05 | US_ITS ---
STUDY: ULTRASOUND BREAST - RIGHT REASON FOR EXAM: Female, 56 years old. Abnormal screening mammogram. TECHNIQUE: Axial and longitudinal images of the RIGHT breast were performed with a high resolution ultrasound transducer. # OF IMAGES: 30 COMPARISON: Comparison is made with prior mammogram dated 01/18/2022. FINDINGS: RIGHT Breast: The mammographic abnormality corresponds to a 2.7 cm x 1.8 cm x 1.4 cm complex solid and cystic mass at the 1 o''clock position of the breast at 12 cm from nipple. Overlying this nodule, there is evidence of bruising from recent breast injury. With this history, a 3 month follow-up sonogram is recommended. IMPRESSION: The mammographic abnormality corresponds to a 2.7 cm x 1.8 cm x 1.4 cm complex solid and cystic nodule at the 1 o''clock position of the breast at 12 cm from nipple. With the history of bruising from recent injury, this may represent a resolving hematoma. A follow-up sonogram in 3 months is recommended. ASSESSMENT CATEGORY: BIRADS Category 3: Probably Benign - Short-Interval Follow-up Suggested. A letter regarding these results will be sent to the patient by the facility within 30 days. Electronically Signed: West Best MD at 9:37 EDT , STUDY: ULTRASOUND BREAST - LEFT REASON FOR EXAM: Female, 56 years old. Abnormal screening mammogram. TECHNIQUE: Axial and longitudinal images of the LEFT breast were performed with a high resolution ultrasound transducer. # OF IMAGES: 30 COMPARISON: Comparison is made with prior mammogram dated 01/18/2022. FINDINGS: LEFT Breast: The mammographic abnormality corresponds to a 8 mm x 8 mm x 4 mm cyst at the 2 o''clock position of the breast at 3 cm from the nipple. US/Breast Limited Unilateral IMPRESSION: The mammographic abnormality corresponds to an 8 mm x 8 mm x 4 mm cyst at the 2 o''clock position in the breast at 3 cm from the nipple. ASSESSMENT CATEGORY: BIRADS Category 2: Benign. A letter regarding these results will be sent to the patient by the facility within 30 days. Electronically Signed: West Best MD at 9:38 EDT ,
== END | disposition home or self-care (01) ==
LOC: OPUS 08:03
PROVIDERS: PCP Family Medicine; Visit Provider Family Medicine
DX: R92.8 Other abnormal and inconclusive findings on diagnostic imaging of breast (principal); N63.10 Unspecified lump in the right breast, unspecified quadrant; N63.20 Unspecified lump in the left breast, unspecified quadrant
CPT/HCPCS: 76642

== ENCOUNTER 2022-01-26 09:49 | Emergency (ER) | payer MEDICARE, MEDICAID, SELFPAY ==
[2022-01-26 09:49] VITALS: BP 154/70; PULSE 80; RESP 20; TEMP 36.8; BMI 36.3
[2022-01-26 09:52] VITALS: BP 154/70; PULSE 80; RESP 20; TEMP 36.8
--- NOTE | 2022-01-26 10:11 | US_ITS ---
STUDY: RENAL ULTRASOUND - COMPLETE REASON FOR EXAM: Female, 56 years old. Hematuria, hx of polycystic kidney disease TECHNIQUE: Ultrasound evaluation of the kidneys was performed with real-time and static huerta-scale imaging. COMPARISON: None. FINDINGS: RIGHT KIDNEY: with moderate renal hypertrophy. The right kidney measures 1.2 cm x 11.9 cm x 11 cm. There is diffuse thinning of the renal cortex. The renal cortex measures 0.6 cm. Multiple renal cysts. There are no right renal calculi. There is no right hydronephrosis. DISTAL RIGHT URETER: There is non-visualization of the distal right ureter. There is no demonstrated right ureterovesical junction calculus. There is no demonstrated right ureteral jet. LEFT KIDNEY: with moderate renal hypertrophy. The left kidney measures 21.1 cm x 10.7 cm x 10.9 cm. There is diffuse thinning of the renal cortex. The renal cortex measures 0.7 cm. There is no left renal mass or cyst. There are no left renal calculi. There is no left hydronephrosis. DISTAL LEFT URETER: There is non-visualization of the distal left ureter. There is no demonstrated left ureterovesical junction calculus. There is no demonstrated left ureteral jet. BLADDER: The urinary bladder is not adequately distended for assessment. US/Kidney and Bladder IMPRESSION: Bilateral renal atrophy with multiple bilateral renal cysts in keeping with polycystic kidney disease. Electronically Signed: West Best MD at 11:53 EDT ,
[2022-01-26 10:32] LABS: Absolute Lymphocyte Count 0.83 X10^3/uL (0.83-4.51); Absolute Neutrophil Count 4.1 X10^3/uL (2.0-7.7); Basophil# 0.04 X10^3/uL; Basophil% 0.7 % (0-1); Eosinophil# 0.18 X10^3/uL; Eosinophils% 3.2 % (0-5); Hematocrit 34.3 % (37-47); Hemoglobin 10.2 g/dL (12.0-15.0); Lymphocyte # 0.83 X10^3/ul (0.83-4.51); Lymphocyte % 14.8 % (19-41); Mean Corp Hgb Conc 29.7 g/dL (32-36); Mean Corpuscular Hgb 26.2 pg (27.0-32.0); Mean Corpuscular Volume 87.9 fL (81-99); Mean Platelet Vol. 9.1 fl (6.2-12.0); Monocyte# 0.42 X10^3/uL; Monocyte% 7.5 % (0-10); NRBC Flagged by Analyzer 0 % (0-5); Neutrophil # 4.13 X10^3/uL (2.7-7.7); Neutrophil % 73.6 % (47-70); Platelet Count 359 K/mm3 (150-450); RBC Distribution Width SD 50.7 fl (35.1-43.9); White Blood Count 5.6 K/mm3 (4.4-11.0)
--- NOTE | 2022-01-26 10:34 | EDS_ITS ---
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 Patient states she has been having some hematuria for the past month and a half however today she started passing significant clots. States she does not normally urinate more than 1/4 cup of urine regularly. She follows with a urologist and [facility], Dr. Nguyen, who recently performed MRI of her abdomen with IV contrast as well as an x-ray at last . She is scheduled to have cystoscopy shortly. Last night she noticed an increased pressure in her lower abdomen which has been going on for the past month and a half. Today she had urgency with urination and felt a pop and then started passing clots out of her urethra. She feels certain that this is not coming from her vagina. She notes for the past month or so she has been feeling a sensation of pressure in her lower abdomen and feel like she is constipated. She has been taking laxatives and has been passing gas and having bowel movements but just not large ones. Patient denies any other complaints at this time. Patient notes that her hemoglobin is normally normal and at dialysis yesterday they redrew her H&H. The month before it was 10. She does not receive the results back yet. [facility] Medical History (Updated 01/26/22 @ 15:[address] Padmini Wen, ) Atherosclerosis of coronary artery of [place] heart without angina pectoris Benign essential hypertension Congenital polycystic kidney disease ESRD (end stage renal disease) on dialysis History of allergic rhinitis History of DVT (deep vein thrombosis) History of recurrent miscarriages, not currently History of torsades de pointes Hyperlipidemia Hypertriglyceridemia Ischemic cardiomyopathy Nonsustained ventricular tachycardia Obesity Sudden cardiac Syncope and collapse Ventricular fibrillation Home Medications sertraline 50 mg tablet 50 mg PO QHS depression 01/19/17 [History Last Taken 12/10/19] warfarin 1 mg tablet 7.5 mg PO QHS blood thinner 01/19/17 [History Last Taken 12/10/19] zolpidem 5 mg tablet 10 mg PO QHS PRN PRN Insomnia 01/19/17 [History Last Taken 12/10/19] cholecalciferol (vitamin D3) 25 mcg (1,000 unit) tablet 1,000 unit PO QDAY 10/24/17 [History Last Taken 12/10/19] vitamin B complex-vitamin C-folic acid 0.8 mg tablet (Nephro-Yahir) 1 tab PO DAILY 03/13/19 [History Last Taken Unknown] nitroglycerin 0.4 mg sublingual tablet 0.4 mg sublingual Q5M PRN Chest Pain #25 tabs 06/23/20 [Rx Last Taken Unknown] clopidogrel 75 mg tablet 75 mg PO DAILY prevents clots #90 tabs 02/09/21 [Rx Last Taken Unknown] sevelamer carbonate 800 mg tablet 800 mg PO TID 30 days #90 tabs 06/11/21 [History Last Taken Unknown] atorvastatin 40 mg tablet 40 mg PO QHS cholesterol #90 tabs 11/20/21 [Rx Last Taken Unknown] metoprolol tartrate 25 mg tablet 25 mg PO DAILY This is a dose increase #90 tabs 11/20/21 [Rx Last Taken Unknown] cephalexin 500 mg capsule 500 mg PO DAILY #7 caps 01/26/22 [Rx Last Taken Unknown] hydrocodone-acetaminophen 5-325mg 5mg-325mg 1 tab PO TID PRN pain 3 days #9 tabs 01/26/22 [Rx Last Taken Unknown] Allergy/AdvReac Type Severity Reaction Status Date / Time amoxicillin Allergy Rash Verified 01/26/22 10:23 doxercalciferol Allergy Hives Verified 01/26/22 10:23 [From Hectorol] etodolac Allergy Rash Verified 01/26/22 10:23 Penicillins [PCN] Allergy Rash Verified 01/26/22 10:23 sulfamethoxazole Allergy Rash Verified 01/26/22 10:23 [From Bactrim] tramadol Allergy Rash Verified 01/26/22 10:23 trimethoprim [From Bactrim] Allergy Rash Verified 01/26/22 10:23 strawberry AdvReac Vomiting Verified 01/26/22 10:23 Family History Father Hypertension Kidney disease Mother Diabetes Surgical History fistulogram History of coronary artery stent placement (04/22/16) History of implantable cardiac defibrillator (ICD) (11/22/19) History of thyroid surgery Social History Smoking Status: Never smoker alcohol intake: never substance use type: does not use diet: other caffeine: No what type of physical activity do you participate in: none seatbelt use: always do you feel safe at home: Yes ROS ROS ED Constitutional Constitutional ED: Denies chills or fever(s) Eyes Eyes: Denies diplopia ENT ENT ED: Denies rhinorrhea or sore throat Cardiovascular Cardiovascular: Denies chest pain or palpitations Respiratory/Chest Respiratory/Chest: Denies cough Gastrointestinal Gastrointestinal: Reports abdominal pain and constipation; Denies melena, nausea or vomiting Genitourinary Genitourinary ED: Reports hematuria and other Details: urgency, large clots Integumentary Denies Abrasions or rash Neurologic Neurologic: Reports weakness; Denies headache(s) Psychiatric Psychiatric: Denies anxiety Hematologic/Lymphatic Hematologic/Lymphatic: Reports easy bleeding and easy bruising EXAM Physical Exam Const Vital Signs: 01/26/22 09:49 01/26/22 09:52 01/26/22 12:09 Temperature 98.3 F 98.3 F Temperature Source Temporal Temporal Pulse Rate 80 80 68 Respiratory Rate 20 H 20 H 16 Blood Pressure 154/70 H 154/70 H 129/56 H Blood Pressure Mean 98 80 Pulse Ox 99 Oxygen Delivery Method Room Air 01/26/22 13:01 Temperature Temperature Source Pulse Rate 70 Respiratory Rate 16 Blood Pressure 136/74 H Blood Pressure Mean 94 Pulse Ox 96 Oxygen Delivery Method Room Air Positive well nourished and well developed General Appearance ED: well developed and NAD HEENT Reports moist mucous membranes Negative for tenderness Eyes PERRL and EOMs intact bilaterally General Eye ED: Negative for pale conjunctiva Neck supple and no JVD Chest Wall inspection of chest normal and palpation of chest normal Resp normal respiratory effort and clear to auscultation bilaterally Cardio regular rate, regular rhythm and no murmurs GI non-distended GI Narrative: Palpable mass right lower quadrant Palpation: soft and tender suprapubic; Negative for guarding Back/Spine no CVA tenderness Extremity normal to inspection Extremity Narrative: AV fistula in the left upper extremity with palpable thrill. Neuro oriented x3 Motor Exam: Negative for general weakness Psych mental status grossly normal Skin no rashes or lesions noted and no wounds MDM MDM MDM Narrative Medical decision making narrative: Evaluated for pelvic discomfort and gross hematuria. She is a complex medical history including end-stage renal disease secondary to polycystic kidney disease. She is on dialysis had a full session yesterday. Hemoglobin is 10.2 today. Patient states she had a hemoglobin around 10 a month ago as well. This appears to be stable. She is hemodynamically stable in the emergency room. Her INR today is 4.2. Renal ultrasound obtained looking for signs of bladder distention. Renal ultrasound shows a decompressed bladder with renal atrophy and changes consistent with polycystic kidney disease. Case is discussed with her urologist, Dr. Juju Rowley. There was a delay in getting his call back which extended the patient's ER stay. Ultimately he recommended sending her urine for culture, course of antibiotics and outpatient follow-up. Patient is instructed to hold her INR for the next 2 doses and then half it after that. She is encouraged to follow-up closely with her PCP who does her INR checks. She is counseled she will need a repeat INR check in 2 to 3 days. They can make further adjustments as needed. Patient is placed on renally dosed Keflex. She is given return precautions. She is given a short course of pain medication for her pelvic pain. I suspect that is associated with irritation from the hematuria as well as her cyst. She is discharged home in stable condition. Lab Data Attestation: I reviewed the patient's lab results. Labs: Laboratory Results - last 24 hr 01/26/22 01/26/22 01/26/22 10:25 10:25 10:25 WBC 5.6 RBC 3.90 L Hgb 10.2 L Hct 34.3 L MCV 87.9 MCH 26.2 L MCHC 29.7 L RDW Std Deviation 50.7 H RDW Coeff of Tana 16.0 H Plt Count 359 MPV 9.1 Immature Gran % (Auto) 0.200 Neut % (Auto) 73.6 H Lymph % (Auto) 14.8 L Clark % (Auto) 7.5 Eos % (Auto) 3.2 Baso % (Auto) 0.7 Absolute Neuts (auto) 4.1 Absolute Lymphs (auto) 0.83 Nucleated RBC % 0 PT 40.1 H INR 4.2 H* Sodium 137 Potassium 4.8 Chloride 98 Carbon Dioxide 31.0 Anion Gap 8 BUN 23 H Creatinine 8.25 H* Estim Creat Clear Calc 5.95 Est GFR (MDRD) Af Amer 6 L Est GFR (MDRD) Non-Af 5 L BUN/Creatinine Ratio 2.8 L Glucose 105 Calcium 9.0 Radiography Diagnostic Testing: Clinical Impression(s) from Imaging Studies Renal Ultrasound 01/26/22 10:11 IMPRESSION: Bilateral renal atrophy with multiple bilateral renal cysts in keeping with polycystic kidney disease. Electronically Signed: West Best MD at 11:53 EDT , Discharge Plan Triage Chief Complaint: Complaint ED Provider: Padmini Wen Dx/Rx/DC Orders Clinical Impression: Gross hematuria, Supratherapeutic INR, Anemia Instructions: ED Hematuria Prescriptions: New hydrocodone-acetaminophen 5-325 mg tablet 1 tab PO TID PRN (Reason: pain) 3 Days Qty: 9 0RF cephalexin 500 mg capsule 500 mg PO DAILY Qty: 7 0RF Rx Instructions: renal dosed No Action cholecalciferol (vitamin D3) 1,000 unit tablet 1,000 unit PO QDAY sevelamer carbonate 800 mg tablet 800 mg PO TID 30 Days Qty: 90 Label Comments: 4 tabs tid Nephro-Yahir 0.8 mg tablet 1 tab PO DAILY zolpidem 5 MG tablet 10 mg PO QHS PRN PRN (Reason: Insomnia) warfarin 1 MG tablet 7.5 mg PO QHS sertraline 50 MG tablet 50 mg PO QHS nitroglycerin 0.4 mg tablet, sublingual 0.4 mg SUBLINGUAL Q5M PRN (Reason: Chest Pain) Qty: 25 2RF clopidogrel 75 mg tablet 75 mg PO DAILY Qty: 90 3RF metoprolol tartrate 25 mg tablet 25 mg PO DAILY Qty: 90 3RF atorvastatin 40 mg tablet 40 mg PO QHS Qty: 90 3RF Primary Care Provider: Tai Vieyra Referrals: Tai Vieyra MD [Primary Care Provider] - Activity Restrictions/Additional Instructions: Please call your urologist for outpatient follow-up. Your INR today was 4.2. Your hemoglobin 10.2. Please hold your Coumadin today and tomorrow. Cut your Coumadin in half after that. You have been placed on an antibiotic which will raise your INR further which is why we are making these adjustments. Please follow-up with Dr. Vieyra in 2 to 3 days for an INR check and for further recommendations for your Coumadin management. Disposition Disposition: Home, Self Care
[2022-01-26 10:46] LABS: Prothrombin Time (Protime)PT. 40.1 SECONDS (11.7-14.9)
[2022-01-26 10:49] LABS: International Normalized Ratio 4.2
[2022-01-26 10:58] LABS: BUN 23 mg/dL (7-18); BUN/Creat Ratio 2.8 RATIO (10-20); Chloride 98 mmol/L (98-107); Creatinine, Serum 8.25 mg/dL (0.55-1.02); EST Glomerular Filtration Rate 5 mL/min (>60); Est Glom Filt Rate - Afr Amer 6 mL/min (>60); Estimated Creatinine Clearance 5.95 ml/min; Glucose 105 mg/dL (74-106); Potassium 4.8 mmol/L (3.5-5.1); Sodium Level 137 mmol/L (136-145)
[2022-01-26 10:59] LABS: Anion Gap 8 (5-15)
--- NOTE | 2022-01-26 11:57 | NURSING ---
CALLING DR CHRISTIANO CLOUD [facility] UROLOGIST [phone]
[2022-01-26 12:09] VITALS: BP 129/56; PULSE 68; RESP 16; O2SAT 99
[2022-01-26] MEDS: fentaNYL 100 MCG/2 ML Ampul 50 MCG IV (13:00)
[2022-01-26 13:01] VITALS: BP 136/74; PULSE 70; RESP 16; O2SAT 96
--- NOTE | 2022-01-26 13:22 | NURSING ---
CALLED DR CLOUD'S OFFICE. HE'S IN A SURGERY CASE UNTIL [phone]
--- NOTE | 2022-01-26 14:18 | NURSING ---
CALLED DR CLOUD'S OFFICE. HIS SURGERY IS RUNNING LATE. ANOTHER MESSAGE WILL BE SENT TO HIM.
--- NOTE | 2022-01-26 15:04 | NURSING ---
DR CLOUD CALLED BACK
[2022-01-26] MEDS: Cephalexin 250 MG Capsule 500 MG PO (15:30)
== END 2022-01-26 15:39 | disposition home or self-care (01) ==
PROVIDERS: Emergency Provider Emergency Medicine; PCP Family Medicine; Visit Provider Emergency Medicine
DX: Q61.3 Polycystic kidney, unspecified (principal); Z99.2 Dependence on renal dialysis; I12.0 Hypertensive chronic kidney disease with stage 5 chronic kidney disease or end stage renal disease; N18.6 End stage renal disease; D68.8 Other specified coagulation defects; R31.0 Gross hematuria; D64.9 Anemia, unspecified; I25.10 Atherosclerotic heart disease of native coronary artery without angina pectoris; E78.5 Hyperlipidemia, unspecified; Z79.01 Long term (current) use of anticoagulants; Z79.899 Other long term (current) drug therapy
CPT/HCPCS: 76770; 80048; 85025; 85610; 87086; 87088; 96374; 99284; A4216

== ENCOUNTER 2022-01-30 15:40 | Emergency (ER) | payer MEDICARE, MEDICAID, SELFPAY ==
[2022-01-30 15:42] VITALS: BP 159/71; PULSE 80; RESP 16; TEMP 36.8; O2SAT 98; BMI 36.2
--- NOTE | 2022-01-30 16:12 | ED.VIS.FEGU ---
HPI HPI - Female History of Present Illness Chief Complaint: Complaint Informant: patient Narrative Narrative: 56-year-old female presenting to the emergency department stating she is unable to urinate. Patient states that she is a dialysis patient typically will urinate maybe 1/4 cup of urine a day. She has been experiencing intermittent hematuria with clots and was seen on Tuesday. She then followed up with her urologist Dr. Teo Reaves in [place] on and had a cystoscopy. She states that the cystoscopy was normal. She has polycystic kidney disease and they believe that the bleeding is coming from her kidney. Patient states that today she is experiencing pelvic pressure and burning that feels like spasms. She states she tries to urinate but just cannot. She wonders if there is a clot that is preventing her from urinating. She is currently on an antibiotic. Patient is on Plavix. She is also on Coumadin. [facility] Medical History (Updated 01/30/22 @ 16:[address] Vivek Corona, ) Atherosclerosis of coronary artery of [place] heart without angina pectoris Benign essential hypertension Congenital polycystic kidney disease ESRD (end stage renal disease) on dialysis History of allergic rhinitis History of DVT (deep vein thrombosis) History of recurrent miscarriages, not currently History of torsades de pointes Hyperlipidemia Hypertriglyceridemia Ischemic cardiomyopathy Nonsustained ventricular tachycardia Obesity Sudden cardiac Syncope and collapse Ventricular fibrillation Home Medications sertraline 50 mg tablet 50 mg PO QHS depression 01/19/17 [History Last Taken 12/10/19] warfarin 1 mg tablet 7.5 mg PO QHS blood thinner 01/19/17 [History Last Taken 12/10/19] zolpidem 5 mg tablet 10 mg PO QHS PRN PRN Insomnia 01/19/17 [History Last Taken 12/10/19] cholecalciferol (vitamin D3) 25 mcg (1,000 unit) tablet 1,000 unit PO QDAY 10/24/17 [History Last Taken 12/10/19] vitamin B complex-vitamin C-folic acid 0.8 mg tablet (Nephro-Yahir) 1 tab PO DAILY 03/13/19 [History Last Taken Unknown] nitroglycerin 0.4 mg sublingual tablet 0.4 mg sublingual Q5M PRN Chest Pain #25 tabs 06/23/20 [Rx Last Taken Unknown] clopidogrel 75 mg tablet 75 mg PO DAILY prevents clots #90 tabs 02/09/21 [Rx Last Taken Unknown] sevelamer carbonate 800 mg tablet 800 mg PO TID 30 days #90 tabs 06/11/21 [History Last Taken Unknown] atorvastatin 40 mg tablet 40 mg PO QHS cholesterol #90 tabs 11/20/21 [Rx Last Taken Unknown] metoprolol tartrate 25 mg tablet 25 mg PO DAILY This is a dose increase #90 tabs 11/20/21 [Rx Last Taken Unknown] cephalexin 500 mg capsule 500 mg PO DAILY #7 caps 01/26/22 [Rx Last Taken Unknown] hydrocodone-acetaminophen 5-325mg 5mg-325mg 1 tab PO TID PRN pain 3 days #9 tabs 01/26/22 [Rx Last Taken Unknown] belladonna alkaloids-opium 16.2 mg-30 mg rectal suppository 1 supp HI TID PRN pain 7 days #12 ea 01/30/22 [Rx Last Taken Unknown] Allergy/AdvReac Type Severity Reaction Status Date / Time amoxicillin Allergy Rash Verified 01/30/22 15:45 doxercalciferol Allergy Hives Verified 01/30/22 15:45 [From Hectorol] etodolac Allergy Rash Verified 01/30/22 15:45 Penicillins [PCN] Allergy Rash Verified 01/30/22 15:45 sulfamethoxazole Allergy Rash Verified 01/30/22 15:45 [From Bactrim] tramadol Allergy Rash Verified 01/30/22 15:45 trimethoprim [From Bactrim] Allergy Rash Verified 01/30/22 15:45 strawberry AdvReac Vomiting Verified 01/30/22 15:45 Family History Father Hypertension Kidney disease Mother Diabetes Surgical History fistulogram History of coronary artery stent placement (04/22/16) History of implantable cardiac defibrillator (ICD) (11/22/19) History of thyroid surgery Social History Smoking Status: Never smoker alcohol intake: never substance use type: does not use diet: other caffeine: No what type of physical activity do you participate in: none seatbelt use: always do you feel safe at home: Yes ROS ROS ED Constitutional Constitutional ED: Denies chills or weight loss Eyes Eyes: Denies change in vision or diplopia ENT ENT ED: Denies ear pain, rhinorrhea or sore throat Cardiovascular Cardiovascular: Denies chest pain, orthopnea, palpitations or racing heartbeat Respiratory/Chest Respiratory/Chest: Denies cough, dyspnea or orthopnea Gastrointestinal Gastrointestinal: Denies abdominal pain, diarrhea, nausea or vomiting Genitourinary Genitourinary ED: Reports dysuria, hematuria and other Details: Pelvic pressure ; Denies urinary frequency Musculoskeletal Musculoskeletal: Denies arthralgias or myalgias Integumentary Denies abscess or rash Neurologic Neurologic: Denies headache(s) or weakness Psychiatric Psychiatric: Denies anxiety, depression, suicidal ideation or suicidal thoughts Endocrine Endocrinology: Denies polydipsia, polyphagia or polyuria Allergic/Immunologic Allergic/Immunologic ED: Denies mouth swelling, tongue swelling or urticaria EXAM Physical Exam Const Vital Signs: 01/30/22 15:42 Temperature 98.3 F Temperature Source Temporal Pulse Rate 80 Respiratory Rate 16 Blood Pressure 159/71 H Blood Pressure Mean 100 Pulse Ox 98 Oxygen Delivery Method Room Air Positive well nourished and well developed General Appearance ED: well developed HEENT Reports normocephalic, head/scalp atraumatic and moist mucous membranes Eyes PERRL and EOMs intact bilaterally Neck no lymphadenopathy, supple and no JVD Resp normal respiratory effort and clear to auscultation bilaterally Cardio regular rate, regular rhythm and no murmurs GI normal to inspection, nondistended, normoactive bowel sounds and non-tender Palpation: soft Back/Spine no CVA tenderness and normal ROM Extremity normal to inspection General Extremety ED: Negative for edema General Extremity: Negative for edema Neuro oriented x3 and CN's II-XII intact bilaterally Sensorium / Orientation: alert Motor Exam: strength 5/5 throughout Psych mental status grossly normal Mood & Affect: Negative for depressed or tearful Skin no rashes or lesions noted and no wounds MDM MDM MDM Narrative Medical decision making narrative: Plan was to perform bladder irrigation. Fortunately however the patient was able to urinate and there was a substantial amount of clots. She states her pain has now resolved. Patient is in a difficult situation because it is apparently the polycystic kidney that is bleeding. I cannot have her drink more fluids because she does not make very much urine to begin with. I fear that if we place a Michaels catheter this will clot off. I will write for some BNO suppositories and have her call her urologist on Tuesday return if worsening or concerns Discharge Plan Triage Chief Complaint: Complaint ED Provider: Vivek Corona Dx/Rx/DC Orders Clinical Impression: Acute urinary retention, Gross hematuria Instructions: ED Hematuria Prescriptions: New belladonna alkaloids-opium 16.2-30 mg suppository 1 supp HI TID PRN (Reason: pain) 7 Days Qty: 12 0RF No Action cholecalciferol (vitamin D3) 1,000 unit tablet 1,000 unit PO QDAY sevelamer carbonate 800 mg tablet 800 mg PO TID 30 Days Qty: 90 Label Comments: 4 tabs tid Nephro-Yahir 0.8 mg tablet 1 tab PO DAILY zolpidem 5 MG tablet 10 mg PO QHS PRN PRN (Reason: Insomnia) warfarin 1 MG tablet 7.5 mg PO QHS sertraline 50 MG tablet 50 mg PO QHS hydrocodone-acetaminophen 5-325 mg tablet 1 tab PO TID PRN (Reason: pain) 3 Days Qty: 9 0RF cephalexin 500 mg capsule 500 mg PO DAILY Qty: 7 0RF Rx Instructions: renal dosed nitroglycerin 0.4 mg tablet, sublingual 0.4 mg SUBLINGUAL Q5M PRN (Reason: Chest Pain) Qty: 25 2RF clopidogrel 75 mg tablet 75 mg PO DAILY Qty: 90 3RF metoprolol tartrate 25 mg tablet 25 mg PO DAILY Qty: 90 3RF atorvastatin 40 mg tablet 40 mg PO QHS Qty: 90 3RF Primary Care Provider: Tai Vieyra Referrals: Tai Vieyra MD [Primary Care Provider] - Activity Restrictions/Additional Instructions: Please call your urologist office on Tuesday. Disposition Disposition: Home, Self Care
== END 2022-01-30 16:30 | disposition home or self-care (01) ==
PROVIDERS: Emergency Provider Emergency Medicine; PCP Family Medicine; Visit Provider Emergency Medicine
DX: R33.9 Retention of urine, unspecified (principal); I12.0 Hypertensive chronic kidney disease with stage 5 chronic kidney disease or end stage renal disease; N18.6 End stage renal disease; I82.621 Acute embolism and thrombosis of deep veins of right upper extremity; R31.0 Gross hematuria; E78.5 Hyperlipidemia, unspecified; I25.5 Ischemic cardiomyopathy; I25.10 Atherosclerotic heart disease of native coronary artery without angina pectoris; Q61.3 Polycystic kidney, unspecified; E78.1 Pure hyperglyceridemia; E66.9 Obesity, unspecified; Z79.01 Long term (current) use of anticoagulants; Z79.02 Long term (current) use of antithrombotics/antiplatelets; Z95.5 Presence of coronary angioplasty implant and graft; Z95.810 Presence of automatic (implantable) cardiac defibrillator
CPT/HCPCS: 36415; 85610; 99282

== ENCOUNTER 2022-01-30 16:47 | Outpatient (RCR) | payer MEDICARE, MEDICAID, SELFPAY ==
[2022-01-30 17:04] LABS: International Normalized Ratio 1.8; Prothrombin Time (Protime)PT. 20.6 SECONDS (11.7-14.9)
== END 2022-02-07 02:58 | disposition home or self-care (01) ==
LOC: LAB 16:47
PROVIDERS: PCP Family Medicine; Visit Provider Family Medicine
DX: I82.409 Acute embolism and thrombosis of unspecified deep veins of unspecified lower extremity (principal)
CPT/HCPCS: 36415; 85610

== ENCOUNTER → 2022-02-01 | Outpatient (CLI) | payer MEDICARE, MEDICAID, SELFPAY | END | disposition home or self-care (01) | LOC: LABSPEC 15:14 | PROVIDERS: PCP Family Medicine | DX: R31.9 Hematuria, unspecified (principal) | CPT/HCPCS: 85018 ==

== ENCOUNTER → 2022-02-18 | Outpatient (CLI) | payer MEDICARE, MEDICAID, SELFPAY ==
--- NOTE | 2022-02-18 07:35 | ECHOD_ITS ---
Version 2 Reason For Study: ARRYHTHMIA Procedure This was a 2D Doppler, Color Flow transthoracic echocardiogram. Exam performed in department. Left Ventricle Normal LV size. Left ventricular systolic function is normal. The estimated ejection fraction is 65 %. Stage 1 diastolic dysfunction. No regional wall motion abnormalities noted. Right Ventricle Normal RV size. ICD or pacer leads identified within the right ventricle. Normal systolic function. Atria Normal left atrium. Normal right atrium. Mitral Valve Normal mitral valve. Tricuspid Valve Normal tricuspid valve. Mild tricuspid valve insufficiency. Pulmonary artery systolic pressure is 34 mmHg. Aortic Valve Normal aortic valve. Trisinus/trileaflet aortic valve. Pulmonic Valve Normal pulmonic valve. Great Vessels Normal aortic root. The pulmonary artery is normal size. Normal inferior vena cava. Pericardium/Pleural No pericardial effusion. MMode/2D Measurements & Calculations LVIDd: 5.0 cm IVSd: 0.92 cm LVOT diam: 2.0 cm LVIDs: 3.1 cm LVPWd: 0.99 cm LVOT area: 3.0 cm2 RVDd: 3.3 cm FS: 36.9 % Ao root diam: 3.0 cm LAV(MOD-bp): 46.4 ml LVAd ap4: 28.8 cm2 LAV(MOD-bp) Indexed: 24.3 ml/m2 LVLd ap4: 7.2 cm LAV(MOD-sp2): 43.2 ml EDV(MOD-sp4): 92.2 ml LAV(MOD-sp4): 49.7 ml EDV(sp4-el): 97.0 ml LVAs ap4: 14.9 cm2 LVLs ap4: 5.9 cm ESV(MOD-sp4): 32.5 ml ESV(sp4-el): 31.7 ml EF(MOD-sp4): 64.7 % EF(sp4-el): 67.3 % SV(MOD-sp4): 59.6 ml SV(sp4-el): 65.3 ml LA A4 area: 17.4 cm2 LA dimension(2D): 4.4 cm RA A4 area: 14.4 cm2 Time Measurements MV dec time: 0.25 sec Doppler Measurements & Calculations MV E max navi: 98.8 cm/sec Lat Peak E' Navi: 7.3 cm/sec Med Peak E' Navi: 6.3 cm/sec MV A max navi: 118.7 cm/sec E/E' lat: 13.5 E/E' med: 15.7 MV E/A: 0.83 Ao V2 max: 172.4 cm/sec LV V1 max: 144.1 cm/sec PA V2 max: 133.8 cm/sec Ao max P.9 mmHg LV V1 max P.3 mmHg LORY(V,D): 2.5 cm2 TR max navi: 274.8 cm/sec TR max P.2 mmHg ECHO/Echo Complete Interpretation Summary Normal LV size. Left ventricular systolic function is normal. The estimated ejection fraction is 65 %. Stage 1 diastolic dysfunction. Pulmonary artery systolic pressure is 34 mmHg. Ordering Physician: Ernesto Garvin Referring Physician: TREVOR SCHULTE Performed By: Matilde Early RDCS
--- NOTE | 2022-02-18 14:55 | STRESSREP_ITS ---
Stress Test Report Pharmacologic myocardial perfusion stress test. 56-year-old lady with a history of chest pain for preop cardiac evaluation. Stress protocol: Resting EKG demonstrates normal sinus rhythm with a rate of 70 bpm normal intervals are noted. 0.4 mg of regadenoson was infused per usual protocol followed by rapid intravenous saline flush injection continuous EKG monitoring was performed. The maximum heart rate attained was 89 bpm which was 54% of max impacted heart rate the maximum workload was 1 metabolic equivalent. At rest there were no ST or T wave changes noted to suggest abnormal flow reserve and at peak infusion nonspecific ST changes were noted with did not meet the criteria for ischemia. No clinical angina was noted. The resting blood pressure was 124/70 and remained throughout the infusion. Myocardial perfusion protocol. 12.0 mCi of technetium 99m sestamibi was injected at rest. 0.4 mg of regadenoson was infused per usual protocol. At peak infusion 34.1 mCi of technetium 99m sestamibi was injected stress images were obtained stress and rest images were reconstructed in comparing the short axis vertical long and hor izontal long axis. Gated images were also obtained. Perfusion SPECT analysis: Review of the stress images demonstrate normal uptake of tracer noted in all areas of the myocardium. The resting images similarly demonstrate normal uptake of tracer noted in all areas of the myocardium. No areas of reversibility are noted to suggest ischemia and no previous infarct is noted. Gated SPECT analysis: The gated ejection fraction is 75%. Conclusion: Normal pharmacologic myocardial perfusion stress test. Preserved ejection fraction.
== END | disposition home or self-care (01) ==
LOC: CVS 07:34
PROVIDERS: PCP Family Medicine; Referring Provider Internal Medicine Cardiovascular Disease; Visit Provider Internal Medicine Cardiovascular Disease
DX: Q61.3 Polycystic kidney, unspecified (principal); Z99.2 Dependence on renal dialysis; I12.0 Hypertensive chronic kidney disease with stage 5 chronic kidney disease or end stage renal disease; N18.6 End stage renal disease; I46.9 Cardiac arrest, cause unspecified; Z95.810 Presence of automatic (implantable) cardiac defibrillator; R10.2 Pelvic and perineal pain; I25.10 Atherosclerotic heart disease of native coronary artery without angina pectoris; E78.1 Pure hyperglyceridemia; E78.5 Hyperlipidemia, unspecified; Z95.5 Presence of coronary angioplasty implant and graft; Z86.79 Personal history of other diseases of the circulatory system
CPT/HCPCS: 78452; 93017; 93306; A9500; A4216; J2785

== ENCOUNTER 2022-03-15 08:23 | Emergency (ER) | payer MEDICARE, MEDICAID, SELFPAY ==
[2022-03-15 08:24] VITALS: PULSE 83; RESP 20; TEMP 36.7; O2SAT 95; BMI 34.0
[2022-03-15 08:31] VITALS: O2SAT 98
[2022-03-15 08:32] VITALS: BP 199/72; PULSE 83; RESP 28; O2SAT 98
--- NOTE | 2022-03-15 09:03 | RAD_ITS ---
STUDY: X-RAY CHEST REASON FOR EXAM: Female, 56 years old. cough, sob TECHNIQUE: PA and lateral views of the chest. COMPARISON: 05/17/2017 FINDINGS: Electronic device in the left side of the chest. The lungs are clear and expanded. Small bilateral pleural effusions with some bibasilar atelectasis. Normal size heart. Normal mediastinum and ana. Normal visualized pulmonary arteries. Normal visualized aortic arch and descending thoracic aorta. Normal visualized thoracic spine. Normal visualized ribs, clavicles, and shoulders. There is no demonstrated abnormality of the visualized soft tissue structures of the upper abdomen. RAD/Chest PA and Lateral IMPRESSION: Small bilateral pleural effusions with some bibasilar atelectasis. Electronically Signed: Burke Louis MD at 9:46 EDT ,
--- NOTE | 2022-03-15 09:03 | EKG12_ITS ---
Test Reason : SOB Blood Pressure : / mmHG Vent. Rate : 081 BPM Atrial Rate : 081 BPM P-R Int : 148 ms QRS Dur : 074 ms QT Int : 416 ms P-R-T Axes : 038 041 052 degrees QTc Int : 483 ms Normal sinus rhythm Prolonged QT Abnormal ECG Confirmed by CALEB DAVIS, LOULOU ([id number]), editor trade journal FARHAN AGUILAR ([id number]) on 03/16/2022 9:47:18 AM Referred By: ROBB Confirmed By:LOULOU ELLIS MD
--- NOTE | 2022-03-15 09:05 | ED.VIS.DYS ---
HPI History of Present Illness Chief Complaint: Shortness of Breath Informant: patient Onset/Context/Timing Onset: Days (3) Context: gradual and onset Timing: Continuous Quality: Positive for Dyspnea on exertion Current Severity: Mild Maximum Severity: Moderate Worsened by: Exertion, Lying flat and Coughing Relieved by: Rest Associated Symptoms cough Chest Pain: Positive for None Narrative Narrative: Patient states she has had a cough and shortness of breath along with pain in the left mid-posterolateral back/ribs for the past 3 days (nursing note indicates it has been 3 weeks, since the patient's kidney surgery, patient denies this and states it has only been for the past 3 days). She had a nephrectomy 3 weeks ago at [facility], she states it was related to hematuria and polycystic kidney disease. She was on and off of her warfarin and Plavix as a result of this, she has coronary stents and an AICD, she states that the defibrillator is due to a dysrhythmia rather than congestive heart failure, and 1 week ago her left arm AV fistula clotted off and she needed to have surgery on that as well. Now she is getting dialysis again and using it without difficulty, her last dialysis session was 3 days ago when she started feeling symptoms. Also states that for the past 3 weeks since her nephrectomy she has been having soreness in her right abdomen, she does not state that the pain has been increasing there but since she has been having pain is just concerned about that area as well. [facility] Medical History Atherosclerosis of coronary artery of [place] heart without angina pectoris Benign essential hypertension Congenital polycystic kidney disease ESRD (end stage renal disease) on dialysis History of allergic rhinitis History of DVT (deep vein thrombosis) History of recurrent miscarriages, not currently History of torsades de pointes Hyperlipidemia Hypertriglyceridemia Ischemic cardiomyopathy Nonsustained ventricular tachycardia Obesity Polycystic kidney disease Sudden cardiac Syncope and collapse Ventricular fibrillation Home Medications sertraline 50 mg tablet 50 mg PO QHS depression 01/19/17 [History Last Taken 12/10/19] warfarin 1 mg tablet 7.5 mg PO QHS blood thinner 01/19/17 [History Last Taken 12/10/19] zolpidem 5 mg tablet 10 mg PO QHS PRN PRN Insomnia 01/19/17 [History Last Taken 12/10/19] cholecalciferol (vitamin D3) 25 mcg (1,000 unit) tablet 1,000 unit PO QDAY 10/24/17 [History Last Taken 12/10/19] vitamin B complex-vitamin C-folic acid 0.8 mg tablet (Nephro-Yahir) 1 tab PO DAILY 03/13/19 [History Last Taken Unknown] nitroglycerin 0.4 mg sublingual tablet 0.4 mg sublingual Q5M PRN Chest Pain #25 tabs 06/23/20 [Rx Last Taken Unknown] sevelamer carbonate 800 mg tablet 800 mg PO TID 30 days #90 tabs 06/11/21 [History Last Taken Unknown] metoprolol tartrate 25 mg tablet 25 mg PO DAILY This is a dose increase #90 tabs 11/20/21 [Rx Last Taken Unknown] cephalexin 500 mg capsule 500 mg PO DAILY #7 caps 01/26/22 [Rx Last Taken Unknown] hydrocodone-acetaminophen 5-325mg 5mg-325mg 1 tab PO TID PRN pain 3 days #9 tabs 01/26/22 [Rx Last Taken Unknown] belladonna alkaloids-opium 16.2 mg-30 mg rectal suppository 1 supp OR TID PRN pain 7 days #12 ea 01/30/22 [Rx Last Taken Unknown] clopidogrel 75 mg tablet 75 mg PO DAILY prevents clots #90 tabs 02/12/22 [Rx Last Taken Unknown] atorvastatin 40 mg tablet 40 mg PO QHS cholesterol #90 tabs 03/12/22 [Rx Last Taken Unknown] Allergy/AdvReac Type Severity Reaction Status Date / Time amoxicillin Allergy Rash Verified 03/15/22 08:24 doxercalciferol Allergy Hives Verified 03/15/22 08:24 [From Hectorol] etodolac Allergy Rash Verified 03/15/22 08:24 Penicillins [PCN] Allergy Rash Verified 03/15/22 08:24 sulfamethoxazole Allergy Rash Verified 03/15/22 08:24 [From Bactrim] tramadol Allergy Rash Verified 03/15/22 08:24 trimethoprim [From Bactrim] Allergy Rash Verified 03/15/22 08:24 strawberry AdvReac Vomiting Verified 03/15/22 08:24 Family History Father Hypertension Kidney disease Mother Diabetes Surgical History fistulogram History of coronary artery stent placement (04/22/16) History of implantable cardiac defibrillator (ICD) (11/22/19) History of thyroid surgery Social History Smoking Status: Never smoker alcohol intake: never substance use type: does not use diet: other caffeine: No what type of physical activity do you participate in: none seatbelt use: always do you feel safe at home: Yes ROS ROS ED Constitutional Constitutional ED: Denies chills or fever(s) Eyes Eyes: Denies change in vision or diplopia ENT ENT ED: Denies rhinorrhea or sore throat Cardiovascular Cardiovascular: Reports orthopnea; Denies chest pain or palpitations Respiratory/Chest Respiratory/Chest: Reports cough, dyspnea, dyspnea on exertion and orthopnea; Denies sputum Gastrointestinal Gastrointestinal: Reports abdominal pain and other Details: Nausea once after she coughed suggesting she swallows. ; Denies diarrhea or vomiting Genitourinary Genitourinary ED: Reports other Details: Patient barely produces any urine ; Denies dysuria or hematuria Musculoskeletal Musculoskeletal: Reports back pain; Denies neck pain Integumentary Denies abscess or rash Neurologic Neurologic: Denies headache(s), paresthesias or weakness Psychiatric Psychiatric: Denies anxiety or suicidal thoughts Hematologic/Lymphatic Hematologic/Lymphatic: Reports easy bleeding and easy bruising EXAM Physical Exam Const Vital Signs: 03/15/22 08:24 03/15/22 08:31 03/15/22 08:32 Temperature 98.1 F Temperature Source Temporal Pulse Rate 83 83 Respiratory Rate 20 H 28 H Respiratory Effort Short of Breath Respiratory Depth Normal Respiratory Pattern Normal Blood Pressure 199/72 H Blood Pressure Mean 114 Pulse Ox 95 98 Oxygen Delivery Method Room Air Nasal Cannula Nasal Cannula Oxygen Flow Rate (L/min) 2 2 03/15/22 09:49 03/15/22 10:51 03/15/22 11:02 Temperature Temperature Source Pulse Rate 79 83 77 Respiratory Rate 20 H 16 24 H Respiratory Effort Respiratory Depth Respiratory Pattern Blood Pressure 183/67 H 179/62 H Blood Pressure Mean 105 101 Pulse Ox 96 93 93 Oxygen Delivery Method Nasal Cannula Nasal Cannula Nasal Cannula Oxygen Flow Rate (L/min) 2 2 2 Positive well nourished and well developed General Appearance ED: well developed and NAD HEENT Reports moist mucous membranes normocephalic and atraumatic Eyes PERRL and EOMs intact bilaterally Neck full ROM, no lymphadenopathy, supple and no meningeal signs Chest Wall Chest Narrative: NT Resp normal respiratory effort and clear to auscultation bilaterally Effort and Inspection: other Pain in the left posterior lower rib cage with movement, states it hurts with breathing but no splinting Cardio regular rate, regular rhythm and no murmurs GI non-distended GI Narrative: Well-healed surgical incisions right abdomen, mild tenderness surrounding this area, no guarding or rebound, no palpable collections around the areas of several incisions. No signs of erythema or dehiscence. Auscultation: normoactive bowel sounds Palpation: soft Back/Spine no CVA tenderness Back/Spine Narrative: Tender in the left lower-middle lateral-posterior rib cage. No step-off, no signs of injury, no ecchymosis or purpura or other rash/lesions, fairly focal. General Back: tenderness and other FROM Extremity normal to inspection General Extremety ED: Negative for edema, pulses abnormal or tenderness General Extremity: Negative for edema or pulses abnormal Neuro oriented x3, CN's II-XII intact bilaterally and no sensory deficits noted Sensorium / Orientation: awake and alert Motor Exam: strength 5/5 throughout Skin no rashes or lesions noted and no wounds MDM MDM MDM Narrative Medical decision making narrative: Chest x-ray my interpretation shows and possibly some mild bibasilar edema, cardiomegaly, possibly small infiltrates. Radiology interpretation noted. She has significant renal failure with a creatinine over 10 she is due for dialysis today, she is anemia at a hemoglobin of 8.0 assume that this is related to her chronic renal disease, as she has had no bleeding from anywhere recently or melena. Her troponin is slightly elevated and her BNP are elevated but this could be related to her renal disease. Her EKG is normal except for a borderline prolonged QTC at 483. Given that her chest x-ray shows very mild abnormalities that do not necessarily explain her symptoms, especially her unilateral posterior thoracic discomfort on the left, and although her INR is therapeutic at 2.[address] her [address] angiography of the chest in order to evaluate for possible pulmonary embolus since she has been off and on her warfarin recently since she has had several surgical procedures. It showed no evidence of a pulmonary embolus locally, but it does confirm my suspicion for congestive heart failure. She had an echocardiogram just under 1 month ago that showed an ejection fraction of 55% and stage I diastolic dysfunction and really was not fairly unremarkable for the symptoms she is having now. Therefore discussed all this with cardiology Dr. Snyder. Discussed ancillaries with him as well. He suggest that the patient be discharged and have more fluid taken off at dialysis today, which is occurring right after she leaves the emergency department, and to follow-up with cardiology as an outpatient. Discussed with the patient and she is comfortable with that plan. With regards to her dialysis, because of her fistula not working she did have 5 days without dialysis, her AV fistula was fixed 1 week ago today, then she had dialysis sessions Tuesday, Tuesday, and Tuesday this past week and today is Tuesday. It is possible that she is playing catch up with regards to her fluid status and the fact that she recently had a nephrectomy as well. I spoke with the package checker on-call for her group, Dr. Maurice Acevedo, who will discuss with her dialysis center. Lab Data Attestation: I reviewed the patient's lab results. Labs: Laboratory Results - last 24 hr 03/15/22 03/15/22 03/15/22 08:49 08:49 08:49 WBC 6.2 RBC 3.17 L Hgb 8.0 L Hct 27.8 L MCV 87.7 MCH 25.2 L MCHC 28.8 L RDW Std Deviation 53.1 H RDW Coeff of Tana 17.0 H Plt Count 354 MPV 9.5 Immature Gran % (Auto) 0.300 Neut % (Auto) 66.6 Lymph % (Auto) 14.4 L Beaver % (Auto) 5.0 Eos % (Auto) 12.6 H Baso % (Auto) 1.1 H Absolute Neuts (auto) 4.1 Absolute Lymphs (auto) 0.89 Nucleated RBC % 0 PT 21.9 H INR 2.0 Sodium 143 Potassium 5.0 Chloride 105 Carbon Dioxide 28.0 Anion Gap 10 BUN 40 H Creatinine 10.30 H* Estim Creat Clear Calc 4.77 Est GFR (MDRD) Af Amer 5 L Est GFR (MDRD) Non-Af 4 L BUN/Creatinine Ratio 3.9 L Glucose 106 Calcium 9.1 Troponin I High Sens 62 H B-Natriuretic Peptide 03/15/22 08:49 WBC RBC Hgb Hct MCV MCH MCHC RDW Std Deviation RDW Coeff of Tana Plt Count MPV Immature Gran % (Auto) Neut % (Auto) Lymph % (Auto) Beaver % (Auto) Eos % (Auto) Baso % (Auto) Absolute Neuts (auto) Absolute Lymphs (auto) Nucleated RBC % PT INR Sodium Potassium Chloride Carbon Dioxide Anion Gap BUN Creatinine Estim Creat Clear Calc Est GFR (MDRD) Af Amer Est GFR (MDRD) Non-Af BUN/Creatinine Ratio Glucose Calcium Troponin I High Sens B-Natriuretic Peptide 972.2 H Radiography Diagnostic Testing: Clinical Impression(s) from Imaging Studies Chest X-Ray 03/15/22 09:03 IMPRESSION: Small bilateral pleural effusions with some bibasilar atelectasis. Electronically Signed: Burke Loius MD at 9:46 EDT Reading Location ID and State: [id number] / [employer] , Service support , Chest CTA 03/15/22 09:57 IMPRESSION: 1. No CT evidence of pulmonary embolism. 2. Suspect congestive heart failure with cardiomegaly, small pericardial effusion, early alveolar pulmonary edema, and moderate bilateral pleural effusions with bibasilar atelectasis. Electronically Signed: Burke Louis MD at 11:11 EDT Reading Location ID and State: [id number] / [employer] , Service support , Rhythm Strip Rhythm Strip: Sinus Rhythm Rate: 80 Ectopy: None EKG Initial EKG: Attestation: I personally reviewed and interpreted this EKG as follows: Interpretation: Sinus Rhythm and No Acute Injury Pattern Comments: QTC 483 Discharge Plan Triage Chief Complaint: Shortness of Breath ED Provider: Junior Bass Dx/Rx/DC Orders Clinical Impression: Acute diastolic CHF (congestive heart failure), Acute left-sided thoracic back pain, ESRD (end stage renal disease) on dialysis Instructions: ED Heart Failure, Congestive (CHF) Prescriptions: No Action cholecalciferol (vitamin D3) 1,000 unit tablet 1,000 unit PO QDAY sevelamer carbonate 800 mg tablet 800 mg PO TID 30 Days Qty: 90 Label Comments: 4 tabs tid Nephro-Yahir 0.8 mg tablet 1 tab PO DAILY zolpidem 5 MG tablet 10 mg PO QHS PRN PRN (Reason: Insomnia) warfarin 1 MG tablet 7.5 mg PO QHS sertraline 50 MG tablet 50 mg PO QHS hydrocodone-acetaminophen 5-325 mg tablet 1 tab PO TID PRN (Reason: pain) 3 Days Qty: 9 0RF cephalexin 500 mg capsule 500 mg PO DAILY Qty: 7 0RF Rx Instructions: renal dosed belladonna alkaloids-opium 16.2-30 mg suppository 1 supp OR TID PRN (Reason: pain) 7 Days Qty: 12 0RF nitroglycerin 0.4 mg tablet, sublingual 0.4 mg SUBLINGUAL Q5M PRN (Reason: Chest Pain) Qty: 25 2RF metoprolol tartrate 25 mg tablet 25 mg PO DAILY Qty: 90 3RF clopidogrel 75 mg tablet 75 mg PO DAILY Qty: 90 3RF atorvastatin 40 mg tablet 40 mg PO QHS Qty: 90 3RF Primary Care Provider: Tai Vieyra Referrals: Ernesto Garvin MD [Med Staff - Active Staff] - 3-5 Days (call for appt when office is open) Tai Vieyra MD [Primary Care Provider] - Activity Restrictions/Additional Instructions: Go directly to dialysis after you are discharged Disposition Disposition: Home, Self Care
[2022-03-15 09:22] LABS: Absolute Lymphocyte Count 0.89 X10^3/uL (0.83-4.51); Absolute Neutrophil Count 4.1 X10^3/uL (2.0-7.7); Basophil# 0.07 X10^3/uL; Basophil% 1.1 % (0-1); Eosinophil# 0.78 X10^3/uL; Eosinophils% 12.6 % (0-5); Hematocrit 27.8 % (37-47); Lymphocyte # 0.89 X10^3/ul (0.83-4.51); Lymphocyte % 14.4 % (19-41); Mean Corp Hgb Conc 28.8 g/dL (32-36); Mean Corpuscular Hgb 25.2 pg (27.0-32.0); Mean Corpuscular Volume 87.7 fL (81-99); Mean Platelet Vol. 9.5 fl (6.2-12.0); Monocyte# 0.31 X10^3/uL; NRBC Flagged by Analyzer 0 % (0-5); Neutrophil % 66.6 % (47-70); Platelet Count 354 K/mm3 (150-450); RBC Distribution Width SD 53.1 fl (35.1-43.9); Red Blood Count 3.17 M/mm3 (4.2-5.4); White Blood Count 6.2 K/mm3 (4.4-11.0)
[2022-03-15 09:34] LABS: Prothrombin Time (Protime)PT. 21.9 SECONDS (11.7-14.9)
[2022-03-15 09:47] LABS: Anion Gap 10 (5-15); BUN 40 mg/dL (7-18); BUN/Creat Ratio 3.9 RATIO (10-20); Calcium,Total 9.1 mg/dL (8.5-10.1); Chloride 105 mmol/L (98-107); EST Glomerular Filtration Rate 4 mL/min (>60); Est Glom Filt Rate - Afr Amer 5 mL/min (>60); Estimated Creatinine Clearance 4.77 ml/min; Glucose 106 mg/dL (74-106); Sodium Level 143 mmol/L (136-145); Troponin-I HS 62 pg/mL (3.0-54.0)
[2022-03-15] MEDS: Acetaminophen 500 MG Tablet 1000 MG PO (09:48)
[2022-03-15 09:49] VITALS: BP 183/67; PULSE 79; RESP 20; O2SAT 96
[2022-03-15 09:49] LABS: BNP,B-Type NATRIURETIC PEPTIDE 972.2 pg/mL (0-100)
--- NOTE | 2022-03-15 09:57 | CT_ITS ---
STUDY: CTA CHEST REASON FOR EXAM: Female, 56 years old. sob, left thoracic pain, hx clots RADIATION DOSAGE (If Supplied By Facility): CTDIvol = ( 11.96 ) mGy, DLP = ( 473.18 ) mGycm TECHNIQUE: The examination was performed with the intravenous administration of IV 75mL [id number]-370. Post-processing of the angiographic images was performed, with multiplanar reformation and 3D reconstruction. Individualized dose optimization techniques were used for this CT. COMPARISON: Chest x-ray earlier today FINDINGS: Electronic device in the left side of the chest. Normal enhancement of the main pulmonary artery and right and left pulmonary arteries. Normal enhancement of the bilateral peripheral pulmonary arteries. There is no demonstrated pulmonary embolism. Normal thoracic aorta and visualized great vessels. There is no demonstrated aortic dissection. There is a small pericardial effusion. There are calcifications of the coronary arteries. Normal mediastinum. Normal hilar regions. Normal visualized trachea and bronchi. The lungs are well expanded. Groundglass densities in the bilateral perihilar lungs consistent with the pulmonary edema. Moderate bilateral pleural effusions with bibasilar atelectasis. Normal chest wall structures. Normal osseous structures. 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 CT/CTA Chest W/WO Contrast IMPRESSION: 1. No CT evidence of pulmonary embolism. 2. Suspect congestive heart failure with cardiomegaly, small pericardial effusion, early alveolar pulmonary edema, and moderate bilateral pleural effusions with bibasilar atelectasis. Electronically Signed: Burke Louis MD at 11:11 EDT ,
[2022-03-15 10:51] VITALS: PULSE 83; RESP 16; O2SAT 93
[2022-03-15 11:02] VITALS: BP 179/62; PULSE 77; RESP 24; O2SAT 93
== END 2022-03-15 12:07 | disposition home or self-care (01) ==
PROVIDERS: Emergency Provider Emergency Medicine; PCP Family Medicine; Visit Provider Emergency Medicine
DX: I12.0 Hypertensive chronic kidney disease with stage 5 chronic kidney disease or end stage renal disease (principal); Z99.2 Dependence on renal dialysis; I50.31 Acute diastolic (congestive) heart failure; N18.6 End stage renal disease; R10.9 Unspecified abdominal pain; Q61.3 Polycystic kidney, unspecified; E78.5 Hyperlipidemia, unspecified; M54.6 Pain in thoracic spine; I25.5 Ischemic cardiomyopathy; R31.9 Hematuria, unspecified; I25.10 Atherosclerotic heart disease of native coronary artery without angina pectoris; E66.9 Obesity, unspecified; Z79.01 Long term (current) use of anticoagulants; Z79.899 Other long term (current) drug therapy; Z90.5 Acquired absence of kidney; Z95.5 Presence of coronary angioplasty implant and graft
CPT/HCPCS: 71046; 71275; 80048; 83880; 84484; 85025; 85610; 87428; 93005; 99285; Q9967

== ENCOUNTER 2022-03-30 15:00 | Outpatient (RCR) | payer MEDICARE, MEDICAID, SELFPAY ==
[2022-03-30 16:30] LABS: International Normalized Ratio 2.1
== END 2022-03-30 18:00 | disposition home or self-care (01) ==
LOC: LAB 15:00
PROVIDERS: PCP Family Medicine; Visit Provider Family Medicine
DX: Z79.01 Long term (current) use of anticoagulants (principal)
CPT/HCPCS: 36415; 85610

== ENCOUNTER → 2022-05-27 | Outpatient (CLI) | payer MEDICARE, MEDICAID, SELFPAY ==
[2022-05-27 16:49] LABS: International Normalized Ratio 3.6; Prothrombin Time (Protime)PT. 35.4 SECONDS (11.7-14.9)
== END | disposition home or self-care (01) ==
LOC: LAB 15:56
PROVIDERS: PCP Family Medicine; Visit Provider Family Medicine
DX: Z79.01 Long term (current) use of anticoagulants (principal)
CPT/HCPCS: 85610

== ENCOUNTER → 2022-07-20 | Outpatient (CLI) | payer MEDICARE, MEDICAID, SELFPAY ==
[2022-07-20 15:25] LABS: Prothrombin Time (Protime)PT. 43.9 SECONDS (11.7-14.9)
[2022-07-20 15:29] LABS: International Normalized Ratio 4.7
[2022-07-20 15:32] LABS: Hemoglobin A1c 5.4 % (3.8-5.6)
[2022-07-20 15:38] LABS: Cholesterol 167 mg/dL (200); High Density Lipoprotein 41 mg/dL; Thyroid Stim Hormone (TSH) 2.59 uIU/mL (0.358-3.74); Triglycerides 195 mg/dL; Very Low Density Lipoprotein 39 mg/dL (5-40)
== END | disposition home or self-care (01) ==
LOC: MFPLAB 11:49
PROVIDERS: PCP Family Medicine; Visit Provider Family Medicine
DX: E03.9 Hypothyroidism, unspecified (principal); E78.5 Hyperlipidemia, unspecified; Z79.01 Long term (current) use of anticoagulants
CPT/HCPCS: 36415; 80061; 83036; 84439; 84443; 85610

== ENCOUNTER → 2022-07-29 | Outpatient (CLI) | payer MEDICARE, MEDICAID, SELFPAY ==
[2022-07-29 17:55] LABS: International Normalized Ratio 1.9; Prothrombin Time (Protime)PT. 21.7 SECONDS (11.7-14.9)
== END | disposition home or self-care (01) ==
LOC: MFPLAB 16:24
PROVIDERS: PCP Family Medicine; Visit Provider Family Medicine
DX: Z79.01 Long term (current) use of anticoagulants (principal)
CPT/HCPCS: 36415; 85610

== ENCOUNTER 2022-08-17 15:11 | Outpatient (RCR) | payer MEDICARE, MEDICAID, SELFPAY ==
[2022-08-17 15:26] LABS: International Normalized Ratio 2.9; Prothrombin Time (Protime)PT. 30.1 SECONDS (11.7-14.9)
== END 2022-08-17 18:00 | disposition home or self-care (01) ==
LOC: LAB 15:11
PROVIDERS: PCP Family Medicine; Visit Provider Family Medicine
DX: Z79.01 Long term (current) use of anticoagulants (principal)
CPT/HCPCS: 36415; 85610

== ENCOUNTER 2022-09-09 16:00 | Outpatient (RCR) | payer MEDICARE, MEDICAID, SELFPAY ==
[2022-09-09 16:42] LABS: International Normalized Ratio 3.5; Prothrombin Time (Protime)PT. 35.2 SECONDS (11.7-14.9)
== END 2022-10-09 | disposition home or self-care (01) ==
LOC: LAB 16:00
PROVIDERS: PCP Family Medicine; Visit Provider Family Medicine
DX: Z79.01 Long term (current) use of anticoagulants (principal)
CPT/HCPCS: 36415; 85610

== ENCOUNTER → 2022-10-19 | Outpatient (CLI) | payer MEDICARE, MEDICAID, SELFPAY ==
[2022-10-19 12:44] LABS: Prothrombin Time (Protime)PT. 42.9 SECONDS (11.7-14.9)
[2022-10-19 13:52] LABS: International Normalized Ratio 4.5
== END | disposition home or self-care (01) ==
PROVIDERS: PCP Family Medicine; Referring Provider Family Medicine; Visit Provider Family Medicine
DX: Z79.01 Long term (current) use of anticoagulants (principal)
CPT/HCPCS: 36415; 85610

== ENCOUNTER 2022-10-25 15:10 | Outpatient (RCR) | payer MEDICARE, MEDICAID, SELFPAY ==
[2022-10-25 12:19] LABS: International Normalized Ratio 1.4; Prothrombin Time (Protime)PT. 17.1 SECONDS (11.7-14.9)
[2022-11-04 20:08] LABS: International Normalized Ratio 2.4; Prothrombin Time (Protime)PT. 25.4 SECONDS (11.7-14.9)
== END 2022-11-07 23:59 ==
LOC: MFPLAB 15:10
PROVIDERS: PCP Family Medicine; Visit Provider Family Medicine
DX: Z79.01 Long term (current) use of anticoagulants (principal)
CPT/HCPCS: 36415; 85610

== ENCOUNTER → 2022-10-28 | Outpatient (CLI) | payer MEDICARE, MEDICAID, SELFPAY ==
[2022-10-28 13:30] LABS: International Normalized Ratio 1.7
== END | disposition home or self-care (01) ==
LOC: MFPLAB 10:58
PROVIDERS: PCP Family Medicine; Visit Provider Family Medicine
DX: Z79.01 Long term (current) use of anticoagulants (principal)
CPT/HCPCS: 36415; 85610

== ENCOUNTER 2022-11-16 17:15 | Outpatient (RCR) | payer MEDICAID, SELFPAY ==
[2022-11-16 17:48] LABS: International Normalized Ratio 2.7; Prothrombin Time (Protime)PT. 28.8 SECONDS (11.7-14.9)
== END 2022-12-08 23:59 ==
LOC: MFPLAB 17:15
PROVIDERS: PCP Family Medicine; Visit Provider Family Medicine
DX: Z79.01 Long term (current) use of anticoagulants (principal)
CPT/HCPCS: 85610

== ENCOUNTER 2022-12-09 17:54 | Outpatient (RCR) | payer MEDICARE, MEDICAID, SELFPAY ==
[2022-12-09 18:19] LABS: International Normalized Ratio 2.8; Prothrombin Time (Protime)PT. 29.5 SECONDS (11.7-14.9)
== END 2022-12-09 18:00 | disposition home or self-care (01) ==
LOC: LAB 17:54
PROVIDERS: PCP Family Medicine; Visit Provider Family Medicine
DX: Z79.01 Long term (current) use of anticoagulants (principal)
CPT/HCPCS: 85610

== ENCOUNTER 2023-01-20 15:22 | Outpatient (RCR) | payer MEDICARE, MEDICAID, SELFPAY ==
[2023-01-20 15:52] LABS: Prothrombin Time (Protime)PT. 31.2 SECONDS (11.7-14.9)
== END 2023-02-07 18:00 | disposition home or self-care (01) ==
LOC: LAB 15:22
PROVIDERS: PCP Family Medicine; Visit Provider Family Medicine
DX: Z79.01 Long term (current) use of anticoagulants (principal)
CPT/HCPCS: 36415; 85610

== ENCOUNTER 2023-03-16 14:05 | Emergency (ER) | payer MEDICARE, MEDICAID, SELFPAY ==
[2023-03-16 14:07] VITALS: BP 158/70; PULSE 67; RESP 14; TEMP 36.8; O2SAT 94; BMI 34.0
--- NOTE | 2023-03-16 14:29 | EKG12_ITS ---
Test Reason : PALPATATIONS Blood Pressure : / mmHG Vent. Rate : 069 BPM Atrial Rate : 069 BPM P-R Int : 156 ms QRS Dur : 082 ms QT Int : 452 ms P-R-T Axes : 025 036 052 degrees QTc Int : 484 ms Normal sinus rhythm Prolonged QT Abnormal ECG Confirmed by CALEB DAVIS, LOULOU ([id number]), scientific publications editor GALO OLGUIN ([id number]) on 03/18/2023 1:13:47 PM Referred By: Confirmed By:LOULOU ELLIS MD
--- NOTE | 2023-03-16 14:31 | EX.ED.DYSGE1 ---
HPI History of Present Illness Chief Complaint: Palpitations Informant: patient Narrative Narrative: Presents with dyspnea palpitations and chest heaviness. This patient had the above symptoms that really kicked in after dialysis today. This patient has a history of polycystic kidney disease. She had her right kidney taken out about a year ago due to recurrent bleeding. 2 weeks ago she had her left kidney taken out at [facility] due to chronic discomfort in the area. She was already on dialysis. She was due to have dialysis on Tuesday. But her access on the left was clotted. They could not get this cleared out till yesterday so sure he had dialysis this morning between 8 AM and 1130. She states she has not been feeling well for the last few days. But not chest pain and dyspnea. They placed her on oxygen at dialysis but she does not recall why. They just stated they felt they should. There is no report of a low oxygen level or any other issues. She states they are still trying to sort out her dry weight because of the recent surgery. But she went in with what sounds like 3.2 kg of weight up and they were able to get 2.6 kg off today. Currently she has no symptoms and feels back to baseline except a little bit tired after dialysis. However, her daughter picked her up after dialysis. She was going home. She stated she felt like her heart was pounding. She could feel it pound. She had some heaviness in her chest. Triage note says 10 out of 10 pain. She denies any pain to me she states it did not hurt at all but it was just pressure. She also felt short of breath with it it is now gone. She states the nitroglycerin that was given her by EMS did not seem to do anything at all. She does have a history of heart disease and has 6 prior stents. I also reviewed her medical record where she had a relatively normal stress test about a year ago. She has been eating and drinking. No fevers. She is healing well from her surgery. With this episode she also stated that she just felt tingly all over and generalized weakness. This was not focal or limited to one side. [facility] Medical History Atherosclerosis of coronary artery of [place] heart without angina pectoris Benign essential hypertension Congenital polycystic kidney disease ESRD (end stage renal disease) on dialysis History of allergic rhinitis History of DVT (deep vein thrombosis) History of recurrent miscarriages, not currently History of torsades de pointes Hyperlipidemia Hypertriglyceridemia Ischemic cardiomyopathy Nonsustained ventricular tachycardia Obesity Polycystic kidney disease Sudden cardiac Syncope and collapse Ventricular fibrillation Home Medications sertraline 50 mg tablet 50 mg PO QHS depression 01/19/17 [History Last Taken 03/15/23] warfarin 1 mg tablet See Rx Instructions PO QHS blood thinner 01/19/17 [History Last Taken 03/15/23] zolpidem 5 mg tablet 10 mg PO QHS PRN PRN Insomnia 01/19/17 [History Last Taken 12/10/19] cholecalciferol (vitamin D3) 25 mcg (1,000 unit) tablet 1,000 unit PO QDAY 10/24/17 [History Last Taken 03/15/23] vitamin B complex-vitamin C-folic acid 0.8 mg tablet (Nephro-Yahir) 1 tab PO DAILY 03/13/19 [History Last Taken 03/15/23] sevelamer carbonate 800 mg tablet 800 mg PO TID 30 days #90 tabs 06/11/21 [History Last Taken 03/15/23] belladonna alkaloids-opium 16.2 mg-30 mg rectal suppository 1 supp TX TID PRN pain 7 days #12 ea 01/30/22 [Rx Last Taken 03/15/23] atorvastatin 40 mg tablet 40 mg PO QHS cholesterol #90 tabs 03/12/22 [Rx Last Taken 03/15/23] calcium carbonate 200 mg calcium (500 mg) chewable tablet (Tums) 400 mg PO BID 03/30/22 [History Last Taken 03/15/23] nitroglycerin 0.4 mg sublingual tablet 0.4 mg sublingual Q5M PRN Chest Pain #25 tabs 10/14/22 [Rx Last Taken 03/15/23] fludrocortisone 0.1 mg tablet 0.1 mg PO DAILY #30 tabs 01/20/23 [Rx Last Taken 03/15/23] Allergy/AdvReac Type Severity Reaction Status Date / Time amoxicillin Allergy Rash Verified 03/16/23 14:15 doxercalciferol Allergy Hives Verified 03/16/23 14:15 [From Hectorol] etodolac Allergy Rash Verified 03/16/23 14:15 Penicillins [PCN] Allergy Rash Verified 03/16/23 14:15 sulfamethoxazole Allergy Rash Verified 03/16/23 14:15 [From Bactrim] tramadol Allergy Rash Verified 03/16/23 14:15 trimethoprim [From Bactrim] Allergy Rash Verified 03/16/23 14:15 strawberry AdvReac Vomiting Verified 03/16/23 14:15 Family History Father Hypertension Kidney disease Mother Diabetes Surgical History fistulogram History of coronary artery stent placement (04/22/16) History of implantable cardiac defibrillator (ICD) (11/22/19) History of thyroid surgery Social History Smoking Status: Never smoker alcohol intake: never substance use type: does not use diet: other caffeine: No what type of physical activity do you participate in: none seatbelt use: always do you feel safe at home: Yes ROS ROS ED ROS Narrative A complete review of systems was performed and is negative except as documented in the history of present illness. Some specific details below. Constitutional: No recent fevers or chills. No malaise but she does feel a bit tired today. EYE: No discharge, visual complaints, or pain. ENT: No difficulty swallowing. No swelling. No pain. No reflux symptoms. CV: See history of present illness. Respiratory: See history of present illness. He also tells me that over the last day or 2 she has had a mild dry cough. No sputum production. She thinks she had this when she had congestive heart failure once. GI: No abdominal pain. No nausea vomiting diarrhea. No blood in stool. : No frequency dysuria or hematuria. Musculoskeletal: No recent trauma. No pains. She did have some swelling of her feet and hands when she missed dialysis for 5 days but she states after dialysis that is already better. Skin: No rash. Nondiaphoretic. Neuro: No or lateralizing weakness or numbness. EXAM Physical Exam Narrative Exam Narrative: CONSTITUTIONAL: Patient is nontoxic in appearance. The patient looks comfortable. Work of breathing looks normal. Done a normal uncomfortable conversation. HEENT: No notable trauma. Mucous membranes a little bit dry. No sinus tenderness. No indication of pain with swallowing. EYES: No conjunctival injection. No proptosis. NECK:No JVD. No stridor. CARDIOVASCULAR: Regular rate. Regular rhythm. No notable murmur. No JVD. Full tones. At first I thought I heard a slight systolic murmur near the right upper sternal border could not hear it consistently. RESPIRATORY: No respiratory distress. Breathing is unlabored. No wheezes. No rhonchi. Minimal crackles near the base. But these improved with several deep breaths. No pain with a deep breath. Her oxygen saturation is normal at 97% on the monitor on room air while I am in the room. She does have an occasional dry cough with taking deep breaths. GASTROINTESTINAL: Not distended. Bowel sounds are normal. Incision in the left lower quadrant as well as 3 port sites all look like they are healing well. They are not draining. No herniation. Overall her abdomen is relatively benign considering she had surgery just 2 weeks ago. GENITOURINARY: No tenderness over the bladder. No CVA tenderness. MUSCULOSKELETAL: Atraumatic. No peripheral edema at this time. No cord. No tenderness along the deep venous system. No asymmetry. No distended veins. NEUROLOGICAL: Patient is alert and appropriate. No focal deficit noted. SKIN: No noted rashes. No diaphoresis. Healing as above. PSYCHIATRIC: Patient is calm. Mood is appropriate. Const Vital Signs: 03/16/23 14:07 03/16/23 14:11 03/16/23 15:17 Temperature 98.2 F Temperature Source Oral Pulse Rate 67 Respiratory Rate 14 Respiratory Effort Normal Blood Pressure 158/70 H Blood Pressure Mean 99 Pulse Ox 94 Oxygen Delivery Method Room Air Room Air 03/16/23 16:56 03/16/23 17:50 Temperature Temperature Source Pulse Rate 64 62 Respiratory Rate 16 16 Respiratory Effort Blood Pressure 121/52 H 130/62 H Blood Pressure Mean 75 84 Pulse Ox 98 96 Oxygen Delivery Method Room Air Room Air MDM MDM MDM Narrative Medical decision making narrative: CBC shows improved hemoglobin. This may be due to removal of fluid at dialysis. White count is normal. Platelets are normal. Patient's INR is therapeutic at 2.6. Patient's electrolytes show overall relatively normal electrolytes but she has elevated creatinine consistent with her chronic kidney disease and dialysis. Patient's magnesium is normal. Patient's troponin is normal. Patient's BNP is elevated but less than other measures. It is currently 456. My independent interpretation of the patient's single AP chest x-ray shows presence of her ICD and a stent in the left arm area. There may be small amount of fluid on the left. Reading also notes possible left basilar infiltrate or atelectasis. John is unchanged at 27. Patient's been feeling well. We let her rest. We walked her then. She stated 96% sat and felt well. She would like to go home. She thinks a lot of this is due to the fluid shifts and problems that she has had getting dialysis for 5 days. They are getting get her in again tomorrow to slowly get her down to what they feels her dry weight. Although the x-ray is showing possible atelectasis versus infiltrate, she has no fever sputum production or high white count. At this point I do not think this is likely infectious but we discussed returning if she develops sputum fever shortness of breath or other symptoms. Lab Data Attestation: I reviewed the patient's lab results. Labs: Laboratory Results - last 24 hr 03/16/23 03/16/23 14:45 17:01 WBC 6.8 RBC 4.59 Hgb 11.8 L Hct 38.5 MCV 83.9 MCH 25.7 L MCHC 30.6 L RDW Std Deviation 53.7 H RDW Coeff of Tana 17.8 H Plt Count 300 MPV 9.0 Immature Gran % (Auto) 0.300 Neut % (Auto) 73.2 H Lymph % (Auto) 10.8 L Winkler % (Auto) 4.6 Eos % (Auto) 10.2 H Baso % (Auto) 0.9 Absolute Neuts (auto) 5.0 Absolute Lymphs (auto) 0.73 L Nucleated RBC % 0 PT 28.3 H INR 2.6 Sodium 135 L Potassium 4.4 Chloride 98 Carbon Dioxide 30.0 Anion Gap 7 BUN 26 H Creatinine 7.75 H* Estim Creat Clear Calc 6.26 Est GFR (MDRD) Af Amer 7 L Est GFR (MDRD) Non-Af 6 L BUN/Creatinine Ratio 3.4 L Glucose 108 H Calcium 9.1 Magnesium 2.4 Troponin I High Sens 27 27 B-Natriuretic Peptide 456.7 H Radiography Diagnostic Testing: Clinical Impression(s) from Imaging Studies Chest X-Ray 03/16/23 15:05 IMPRESSION: Left basilar infiltrate and/or atelectasis with small left pleural effusion. Electronically Signed: West Best MD at 15:24 EDT , EKG Initial EKG: Comments: Independent interpretation of this patient's EKG shows normal sinus rhythm with a rate of 69. No ectopy. No acute ST elevation or depression. TX interval, QRS duration are normal. QTc is a little bit toward the long end at 484 ms. Discharge Plan Triage Chief Complaint: Palpitations ED Provider: Salas Basilio Dx/Rx/DC Orders Clinical Impression: Heart palpitations, Chest pressure, ESRD (end stage renal disease) on dialysis Instructions: ED Palpitations Prescriptions: No Action cholecalciferol (vitamin D3) 1,000 unit tablet 1,000 unit PO QDAY sevelamer carbonate 800 mg tablet 800 mg PO TID 30 Days Qty: 90 Patient Comments: 4 tabs tid Nephro-Yahir 0.8 mg tablet 1 tab PO DAILY calcium carbonate [Tums] 200 mg calcium (500 mg) tablet,chewable 400 mg PO BID fludrocortisone 0.1 mg tablet 0.1 mg PO DAILY Qty: 30 6RF zolpidem 5 MG tablet 10 mg PO QHS PRN PRN (Reason: Insomnia) warfarin 1 MG tablet See Rx Instructions PO QHS Rx Instructions: 7 mg orally at bedtime; sertraline 50 MG tablet 50 mg PO QHS belladonna alkaloids-opium 16.2-30 mg suppository 1 supp TX TID PRN (Reason: pain) 7 Days Qty: 12 0RF atorvastatin 40 mg tablet 40 mg PO QHS Qty: 90 3RF nitroglycerin 0.4 mg tablet, sublingual 0.4 mg SUBLINGUAL Q5M PRN (Reason: Chest Pain) Qty: 25 2RF Primary Care Provider: Tai Vieyra Referrals: Tai Vieyra MD [Primary Care Provider] - 3-5 Days Disposition Disposition: Home, Self Care
[2023-03-16 14:56] LABS: Absolute Lymphocyte Count 0.73 X10^3/uL (0.83-4.51); Basophil# 0.06 X10^3/uL; Basophil% 0.9 % (0-1); Eosinophil# 0.69 X10^3/uL; Eosinophils% 10.2 % (0-5); Hematocrit 38.5 % (37-47); Hemoglobin 11.8 g/dL (12.0-15.0); Lymphocyte # 0.73 X10^3/ul (0.83-4.51); Lymphocyte % 10.8 % (19-41); Mean Corp Hgb Conc 30.6 g/dL (32-36); Mean Corpuscular Hgb 25.7 pg (27.0-32.0); Mean Corpuscular Volume 83.9 fL (81-99); Monocyte# 0.31 X10^3/uL; Monocyte% 4.6 % (0-10); NRBC Flagged by Analyzer 0 % (0-5); Neutrophil # 4.96 X10^3/uL (2.7-7.7); Neutrophil % 73.2 % (47-70); Platelet Count 300 K/mm3 (150-450); RBC Distribution Width CV 17.8 % (11.6-14.6); RBC Distribution Width SD 53.7 fl (35.1-43.9); Red Blood Count 4.59 M/mm3 (4.2-5.4); White Blood Count 6.8 K/mm3 (4.4-11.0)
--- NOTE | 2023-03-16 15:05 | RAD_ITS ---
STUDY: X-RAY CHEST REASON FOR EXAM: Female, 57 years old. Chest pain and chest heaviness. TECHNIQUE: Single AP portable view of the chest. COMPARISON: Comparison is made with prior study June 14, 2022. FINDINGS: EKG electrodes are seen. A left-sided pacemaker device is seen and this is unchanged. Vascular stents are seen in the left subclavian region. Small left pleural effusion with left basilar infiltrate and/or atelectasis. There is no demonstrated pleural abnormality. Normal size heart. Normal mediastinum and ana. Normal visualized pulmonary arteries. There is atherosclerotic calcification of the aortic arch with tortuosity. There are diffuse degenerative changes of the visualized thoracic spine. Normal visualized ribs, clavicles, and shoulders. There is no demonstrated abnormality of the visualized soft tissue structures of the upper abdomen. RAD/Chest 1 View (Portable) IMPRESSION: Left basilar infiltrate and/or atelectasis with small left pleural effusion. Electronically Signed: West Best MD at 15:24 EDT ,
[2023-03-16 15:11] LABS: BNP,B-Type NATRIURETIC PEPTIDE 456.7 pg/mL (0-100)
[2023-03-16 15:15] LABS: International Normalized Ratio 2.6; Prothrombin Time (Protime)PT. 28.3 SECONDS (11.7-14.9)
[2023-03-16 15:20] LABS: Anion Gap 7 (5-15); BUN 26 mg/dL (7-18); BUN/Creat Ratio 3.4 RATIO (10-20); Calcium,Total 9.1 mg/dL (8.5-10.1); Chloride 98 mmol/L (98-107); Creatinine, Serum 7.75 mg/dL (0.55-1.02); EST Glomerular Filtration Rate 6 mL/min (>60); Est Glom Filt Rate - Afr Amer 7 mL/min (>60); Estimated Creatinine Clearance 6.26 ml/min; Glucose 108 mg/dL (74-106); Magnesium 2.4 mg/dL (1.6-2.6); Potassium 4.4 mmol/L (3.5-5.1); Sodium Level 135 mmol/L (136-145); Troponin-I HS (w/2H Reflex) 27 pg/mL (3.0-54.0)
[2023-03-16 16:53] LABS: Reflex Troponin-HS? (from REC) Y
[2023-03-16 16:56] VITALS: BP 121/52; PULSE 64; RESP 16; O2SAT 98
[2023-03-16 17:29] LABS: Troponin-I HS 27 pg/mL (3.0-54.0)
[2023-03-16 17:50] VITALS: BP 130/62; PULSE 62; RESP 16; O2SAT 96
== END 2023-03-16 18:43 | disposition home or self-care (01) ==
PROVIDERS: Emergency Provider Emergency Medicine; PCP Family Medicine; Visit Provider Emergency Medicine
DX: R00.2 Palpitations (principal); Z99.2 Dependence on renal dialysis; I12.0 Hypertensive chronic kidney disease with stage 5 chronic kidney disease or end stage renal disease; N18.6 End stage renal disease; R07.89 Other chest pain; E78.5 Hyperlipidemia, unspecified; I25.10 Atherosclerotic heart disease of native coronary artery without angina pectoris; Q61.3 Polycystic kidney, unspecified; E66.9 Obesity, unspecified; Z68.34 Body mass index [BMI] 34.0-34.9, adult; Z90.5 Acquired absence of kidney; Z95.5 Presence of coronary angioplasty implant and graft; Z95.810 Presence of automatic (implantable) cardiac defibrillator; Z79.01 Long term (current) use of anticoagulants; Z79.899 Other long term (current) drug therapy; Z86.718 Personal history of other venous thrombosis and embolism
CPT/HCPCS: 71045; 80048; 83735; 83880; 84484; 85025; 85610; 93005; 99284; A4216

== ENCOUNTER 2023-03-31 08:28 | Outpatient (CLI) | payer MEDICARE, MEDICAID, SELFPAY ==
[2023-03-31 10:28] LABS: Prothrombin Time (Protime)PT. 22.4 SECONDS (11.7-14.9)
== END 2023-03-31 23:59 | disposition home or self-care (01) ==
LOC: MFPLAB 08:33
PROVIDERS: PCP Family Medicine; Visit Provider Family Medicine
DX: Z79.01 Long term (current) use of anticoagulants (principal)
CPT/HCPCS: 36415; 85610

== ENCOUNTER → 2023-04-07 | Outpatient (CLI) | payer MEDICARE, MEDICAID, SELFPAY ==
[2023-04-07 11:06] LABS: Syphilis Antibodies Non-reactive; Vitamin B12 883 pg/mL (211-911)
[2023-04-07 11:49] LABS: Ferritin 292 ng/mL (8-252); Free T3 2.3 pg/mL (2.18-3.98); Iron 118 ug/dL (50-170); T4 Free Direct 0.66 ng/dL (0.76-1.46); Thyroid Stim Hormone (TSH) 3.92 uIU/mL (0.358-3.74)
[2023-04-15 18:08] LABS: Zinc, Plasma or Serum 68 ug/dL (44-115)
== END | disposition home or self-care (01) ==
LOC: MFPLAB 08:51
PROVIDERS: PCP Family Medicine; Visit Provider Family Medicine
DX: R20.2 Paresthesia of skin (principal); N18.6 End stage renal disease
CPT/HCPCS: 36415; 82607; 82728; 82746; 83540; 84439; 84443; 84481; 84630; 86780

== ENCOUNTER 2023-05-10 09:00 | Outpatient (RCR) | payer MEDICARE, MEDICAID, SELFPAY ==
--- NOTE | 2023-04-12 15:55 | HP.OTEVAL ---
Patient's Visit Information Visit Information Visit Information: SPENCER ALLEN is a 57 year old F, referred to Occupational Therapy by Dr. Tai Vieyra MD, with a diagnosis of Bilateral. Date of Evaluation: 04/12/23 Occupational Therapist: Madya Bush, ANABELL/Valentine, CHT Subjective Subjective: This 57 year old female was seen for OT eval with dx of Bilateral hand paresthesia- right arm paresthesia. Pt states she has had increase numbness in right hand last two weeks where she wakes up and her arm is numb and needs to wake up and move around - pt states stays numb for almost an hour. Dialysis 3x week -- ( old fistula in right arm since 2011 but unable to get it to work ) left fistula placed 2011. pt states hand will also hurt pt states she can not put right hand behind her head it will go numb. pt states Dr. fu order bilateral wrist braces and she will get them this . Pt states in Feb. she had her Kidney removed and was walking with a walker and now uses can at times. pt states she may have been leaning heavily on the walker during this time and hunching forward as well. pt states she would like the numbness to decrease so she has less pain and interruption of sleep and use of right hand with ADLs and IADls. ADLs Kitchen: Open jars Miscellaneous: Use cell phone, Write and Drive Comments: all fingers will go numb with increase use of phone Comments: pt sates driving short distance hands will go numb Pain right: Current Pain Intensity: 0 Pain Intensity Range: 7 ROM Forearm: right sup 50 left 70 Wrist: right 40/45 left 45/45 ROM Comments: pt demo full composite fist Strength Certification Engineer: right 20# left 20# Lateral Pinch: right 4# left 8# Tripod Pinch: right 6# left 10# Tip-to-Tip Pinch: right 2# left 6# Sensation Thumb: right /left 2.83 interpretation Normal sensation Index: right /left 2.83 interpretation Normal sensation Middle: right /left 2.83 interpretation Normal sensation Ring: right /left 2.83 interpretation Normal sensation Little: right /left 2.83 interpretation Normal sensation Quick DASH-Disab of Arm,Shoulder& Hand Quick DASH Score: 43.1800 Goals Goal:: pt will demo a increase in bilateral customer operations intern strength by 10# to increase pts ind. with ADls and IADLS by dMaria Doloresc Goal:: pt will demo the ability to sit with correct seated posture for therapy session indicating pt is understanding how posture can affect UE circulation and nerve compression by dc. Pt will report the ability to ambulate with WW without leaning heavily throughout arms by end of 3rd session. Goal:: pt will demo the ability to mixing picker tender small and med. size objects without dropping to increase ind with ADLs by ines Goal:: pt will report a decrease in tingling/numbness by 50% indication of a decrease in nerve compression by d.c Goal:: Pt will demo understanding of using supportive bracing 80% of workday/ADLS to decrease stress on tendon origin to allow healing and decrease pain by end of 2nd session. Rehabilitation General Assessment: pt demo with positive symptoms of nerve compression in bilateral UE. Due to pts recent need of using a walker and cane to ambulate as well as posture concerns. pt would benefit from skilled OT services 1-2x week for 4 weeks to ed. pt on conservative treatment- median and ulnar nerve glides- use of brace and postural strengthening. pt demo understanding and agree to POC. Rehabilitation Potential: Good Anticipated Interventions Anticipated Interventions: A/AAROM/PROM, Strengthening, Triggerpoint Release, Modalities, Orthoses, Joint Protection/Energy Conservation, Education re Diagnosis and Home Program Visit Plan Frequency: 1-2x /Week Duration: 2 Months General Plan: median nerve glide ulnar nerve glide postural correction for seated/ww amb. etc (isometric) pt has fistula in bilateral UE no repetitive strengthening TEXT: Thank you for the opportunity to evaluate your patient. For Medicare and Medicare HMO plans, please review the plan of care and approve it. It will need to be FAXED BACK to us at [phone] for Medicare purposes. Please let me know if there are questions or concerns regarding this plan of care. Physician Signature: Date:
== END 2023-05-10 19:00 | disposition home or self-care (01) ==
LOC: OT 09:00
PROVIDERS: PCP Family Medicine; Visit Provider Family Medicine
DX: R20.2 Paresthesia of skin (principal)
CPT/HCPCS: 97110; 97140; 97166; 97530

== ENCOUNTER → 2023-06-15 | Outpatient (CLI) | payer MEDICARE, MEDICAID, SELFPAY ==
--- NOTE | 2023-06-15 12:38 | NEURO ---
NCS and/or EMG Patient Report Ordering Doctor: Tai Vieyra DATE OF SERVICE: 06/15/23 Kianna presents for electrodiagnostic testing of the upper limbs. She reports numbness and tingling in both hands over the past several months. Electrodiagnostic findings: Right median motor nerve demonstrates prolonged latency with normal amplitude and borderline reduced conduction velocity. Left median motor nerve demonstrates normal distal latency and amplitude with normal conduction conduction velocity. Normal right ulnar motor response. Left ulnar motor response above the elbow cannot be obtained, though this may be complicated by presence of a skin graft. Normal median and ulnar F-waves are noted. Prolonged right median sensory latency at the wrist. Normal left median sensory response. Absent right median palmar response. Normal radial and ulnar sensory responses bilaterally. Needle EMG testing was performed in the upper limbs. All muscles tested showed no evidence of denervation with normal motor unit action potentials. Electrodiagnostic impression: This is an abnormal study in the upper limbs 1. Electrodiagnostic findings suggestive of right-sided median mononeuropathy. This is consistent with a mild right carpal tunnel syndrome. There is no definitive electrodiagnostic evidence for a left-sided carpal tunnel syndrome. 2. No electrodiagnostic evidence is noted for cervical radiculopathy. Multi Select Codes Neurology Neurology Interp Codes: 81899-53 Musc test done w/n test comp (interp) (2) and 36918-10 Nrv cndj test 13/> studies (interp)
== END | disposition home or self-care (01) ==
LOC: PSN 09:59
PROVIDERS: PCP Family Medicine; Referring Provider Family Medicine; Visit Provider Family Medicine
DX: R20.2 Paresthesia of skin (principal)
CPT/HCPCS: 95886; 95913

== ENCOUNTER → 2023-06-23 | Outpatient (CLI) | payer MEDICARE, MEDICAID, SELFPAY ==
[2023-06-23 15:28] LABS: International Normalized Ratio 2.6; Prothrombin Time (Protime)PT. 27.9 SECONDS (11.7-14.9)
[2023-06-23 16:21] LABS: Free T3 2.6 pg/mL (2.18-3.98); T4 Free Direct 0.81 ng/dL (0.76-1.46); Thyroid Stim Hormone (TSH) 1.43 uIU/mL (0.358-3.74)
== END | disposition home or self-care (01) ==
LOC: MFPLAB 11:49
PROVIDERS: PCP Family Medicine; Visit Provider Family Medicine
DX: E03.9 Hypothyroidism, unspecified (principal); Z79.01 Long term (current) use of anticoagulants
CPT/HCPCS: 36415; 84439; 84443; 84481; 85610

== ENCOUNTER 2023-10-28 14:28 | Outpatient (RCR) | payer MEDICARE, MEDICAID, SELFPAY ==
[2023-10-28 14:52] LABS: International Normalized Ratio 2.3; Prothrombin Time (Protime)PT. 25.5 SECONDS (11.7-14.9)
== END 2023-11-08 23:47 | disposition home or self-care (01) ==
LOC: LAB 14:28
PROVIDERS: PCP Family Medicine; Visit Provider Family Medicine
DX: Z79.01 Long term (current) use of anticoagulants (principal)
CPT/HCPCS: 36415; 85610

== ENCOUNTER 2023-12-01 13:19 | Outpatient (RCR) | payer MEDICARE, MEDICAID, SELFPAY ==
[2023-12-01 15:39] LABS: International Normalized Ratio 1.8; Prothrombin Time (Protime)PT. 20.6 SECONDS (11.7-14.9)
== END 2023-12-01 18:00 | disposition home or self-care (01) ==
LOC: MTLAB 13:19
PROVIDERS: PCP Family Medicine; Referring Provider Family Medicine; Visit Provider Family Medicine
DX: Z79.01 Long term (current) use of anticoagulants (principal)
CPT/HCPCS: 36415; 85610

== ENCOUNTER 2024-03-27 09:00 | Outpatient (RCR) | payer MEDICARE, MEDICAID, SELFPAY ==
--- NOTE | 2024-02-27 17:57 | HP.OTEVAL ---
Patient's Visit Information Visit Information Visit Information: SPENCER ALLEN is a 58 year old F, referred to Occupational Therapy by Dr. Tai Vieyra MD, with a diagnosis of trigger thumb and 4th finger L hand. Date of Evaluation: 02/27/24 Occupational Therapist: Maday Bush, ANABELL/Valentine, CHT Subjective Subjective: This 58-year-old female arrives with dx of L trigger thumb. Started triggering about a month ago. Triggering gets worse throughout the day especially when repetitive squeezing and pinching. Pt is R handed. Currently not working. Pt states triggering affects her the most when driving, bathing (washing her back), pulling when dressing and putting on bra. Pain L thumb: Current Pain Intensity: 0 Pain Intensity Range: 8 Objective Objective/Observation: pt arrives using cane as means of mobility ROM MP: L 50* R 50* IP: L 54* R 80* ROM Comments: no noted trigger of her thumb with this session- but pt limited her ROM due to pain Strength Remote Computer Terminal Operator: L 13# R 25# Lateral Pinch: L 4# R 8# Tripod Pinch: L 2# 5# Strength Comments: pt demo with a decrease in left interim controller strength Sensation Sensation Comments: denies Quick DASH-Disab of Arm,Shoulder& Hand Quick DASH Score: 27.2725 Goals Goal:100% adherence to protocol: Yes Comment: trigger thumb guidelines Goal:ROM equal to unaffected hand: Yes Goal:Remote Computer Terminal Operator/Pinch strength at least 75% of unaffected hand: Yes Goal:No pain with affected hand use: Yes Goal:Full use of affected hand in daily activities including work: Yes Other Goal: pt will demo 100% adherence to joint protection techniques by end of POC. pt will demo understanding of using brace by end of 1st session Rehabilitation General Assessment: this 58-year-old female arrives with dx of L trigger thumb resulting in impairment in L hand ROM, strength, and pain impacting pt ability to bathe washing back, dressing putting on bra, driving, pinching/squeezing, and other daily functional activities. pt is recommended to complete OT services 2x a week for 3 weeks. Therapy session was directly supervised and doc. approved by Maday HUNG/Valentine,MELISSAT. Rehabilitation Potential: Good Anticipated Interventions Anticipated Interventions: A/AAROM/PROM, Strengthening, Triggerpoint Release, Modalities, Orthoses, Joint Protection/Energy Conservation, Ergonomic Education, Education re assistive Equipment, Education re Diagnosis and Home Program Visit Plan Frequency: 2x /Week Duration: 3 Weeks General Plan: decrease pain improve ROM increase strength use hand normally again TEXT: Thank you for the opportunity to evaluate your patient. For Medicare and Medicare HMO plans, please review the plan of care and approve it. It will need to be FAXED BACK to us at [phone] for Medicare purposes. Please let me know if there are questions or concerns regarding this plan of care. Physician Signature: Date:
--- NOTE | 2024-08-16 10:22 | HP.OT.NRP ---
Patient Information Patient Information: SPENCER ALLEN was seen in my office for initial evaluation on 02/27/24. The following Plan of Care was established for this patient: POC Established Initial Frequency: 2x /Week Initial Duration: 3 Weeks Anticipated Interventions Anticipated Interventions: A/AAROM/PROM, Strengthening, Triggerpoint Release, Modalities, Orthoses, Joint Protection/Energy Conservation, Ergonomic Education, Education re assistive Equipment, Education re Diagnosis and Home Program Last Seen Last Seen: This patient was last seen in our office 03/27/24. Pertinent comments regarding their Occupational therapy will appear below: Due to time lapse in services pt is d/c at this time. At this point I will be discontinuing this patient from occupational therapy. I would be happy to see this patient again in the future if found appropriate by the physician. Thank you! Maday Bush, OTR/L, CHT
== END 2024-03-27 19:00 | disposition home or self-care (01) ==
LOC: OT 09:00
PROVIDERS: PCP Family Medicine; Referring Provider Family Medicine; Visit Provider Family Medicine
DX: M65.312 Trigger thumb, left thumb (principal); M65.342 Trigger finger, left ring finger
CPT/HCPCS: 97035; 97140; 97165; 97166; 97530

== ENCOUNTER 2024-05-08 14:27 | Outpatient (RCR) | payer MEDICARE, MEDICAID, SELFPAY ==
[2024-05-08 17:21] LABS: International Normalized Ratio 2.1; Prothrombin Time (Protime)PT. 23.7 SECONDS (11.7-14.9)
== END 2024-05-10 23:59 ==
LOC: WOBLAB 14:27
PROVIDERS: PCP Family Medicine; Referring Provider Family Medicine; Visit Provider Family Medicine
DX: I25.10 Atherosclerotic heart disease of native coronary artery without angina pectoris (principal)
CPT/HCPCS: 36415; 85610

== ENCOUNTER 2024-06-06 16:38 | Outpatient (RCR) | payer MEDICARE, MEDICAID, SELFPAY ==
[2024-06-06 17:20] LABS: International Normalized Ratio 1.3; Prothrombin Time (Protime)PT. 16.6 SECONDS (11.7-14.9)
== END 2024-06-09 23:59 ==
LOC: BWCLAB 16:38
PROVIDERS: PCP Family Medicine; Referring Provider Family Medicine; Visit Provider Family Medicine
DX: I25.10 Atherosclerotic heart disease of native coronary artery without angina pectoris (principal)
CPT/HCPCS: 36415; 85610

== ENCOUNTER 2024-06-18 09:29 | Outpatient (RCR) | payer MEDICARE, MEDICAID, SELFPAY ==
[2024-06-18 11:47] LABS: International Normalized Ratio 1.9; Prothrombin Time (Protime)PT. 21.2 SECONDS (11.7-14.9)
[2024-07-05 18:06] LABS: International Normalized Ratio 1.8
== END 2024-07-10 23:59 ==
LOC: BWCLAB 09:29
PROVIDERS: PCP Family Medicine; Referring Provider Family Medicine; Visit Provider Family Medicine
DX: I25.10 Atherosclerotic heart disease of native coronary artery without angina pectoris (principal)
CPT/HCPCS: 36415; 85610

== ENCOUNTER 2024-07-08 16:36 | Emergency (ER) | payer MEDICARE, MEDICAID, SELFPAY ==
[2024-07-08 16:40] VITALS: BP 153/61; PULSE 78; RESP 18; TEMP 36.6; O2SAT 99; BMI 33.9
--- NOTE | 2024-07-08 16:48 | EDS_ITS ---
HPI History of Present Illness Chief Complaint: Palpitations Informant: patient Onset/Context/Timing Onset: Today Context: Sudden Onset Timing: Intermittent and Lasts (Approximately 20 minutes) Quality: Racing, heaviness Location: Chest Worsened by: Nothing Relieved by: Valsalva maneuver Narrative Narrative: Patient presents with palpitations that began today. Patient states she was towards the end of her dialysis when she felt her heart racing. Patient states she was having some heaviness in her chest at that time. Patient states she completed her dialysis. Patient states that EMS noted she was in A-fib with RVR. EMS had the patient perform a Valsalva maneuver which resolved her symptoms. Currently, patient denies any palpitations, chest pain, or shortness of breath. Patient denies any recent fevers or chills. [facility] Medical History Polycystic kidney disease Sudden cardiac Hypertriglyceridemia Hyperlipidemia History of torsades de pointes Atherosclerosis of coronary artery of [place] heart without angina pectoris Syncope and collapse Ventricular fibrillation Ischemic cardiomyopathy ESRD (end stage renal disease) on dialysis Nonsustained ventricular tachycardia History of recurrent miscarriages, not currently History of DVT (deep vein thrombosis) Congenital polycystic kidney disease History of allergic rhinitis Obesity Benign essential hypertension Home Medications ?Medication ?Instructions ?Recorded ?Last Taken ?Type sertraline 50 mg tablet 50 mg PO QHS depression 01/19/17 03/15/23 History warfarin 1 mg tablet See Rx Instructions PO QHS blood 01/19/17 03/15/23 History thinner cholecalciferol (vitamin D3) 25 1,000 unit PO QDAY 10/24/17 03/15/23 History mcg (1,000 unit) tablet vitamin B complex-vitamin C-folic 1 tab PO DAILY 03/13/19 03/15/23 History acid 0.8 mg tablet (Nephro-Yahir) sevelamer carbonate 800 mg tablet 800 mg PO TID 30 days #90 tabs 06/11/21 03/15/23 History belladonna alkaloids-opium 16.2 1 supp IN TID PRN pain 7 days #12 01/30/22 03/15/23 Rx mg-30 mg rectal suppository ea calcium carbonate (Tums) 400 mg PO BID 03/30/22 03/15/23 History nitroglycerin 0.4 mg sublingual 0.4 mg sublingual Q5M PRN Chest 10/14/22 03/15/23 Rx tablet Pain #25 tabs fludrocortisone 0.1 mg tablet 0.1 mg PO DAILY #30 tabs 01/20/23 03/15/23 Rx ipratropium bromide 21 mcg (0.03 2 spray intranasal BID 05/10/23 Unknown History %) nasal spray levothyroxine 25 mcg capsule 25 mcg PO DAILY 05/10/23 Unknown History zolpidem 5 mg tablet 10 mg PO QHS PRN PRN Insomnia 05/10/23 Unknown History midodrine 2.5 mg tablet 5 mg (2 x 2.5 mg) PO TID #90 tabs 06/01/23 Unknown Rx atorvastatin 40 mg tablet 40 mg PO QHS cholesterol #90 tabs 06/04/24 Unknown Rx Allergy/AdvReac Type Severity Reaction Status Date / Time amoxicillin Allergy Rash Verified 05/10/23 10:33 doxercalciferol (From Allergy Hives Verified 05/10/23 10:33 Hectorol) etodolac Allergy Rash Verified 05/10/23 10:33 Penicillins (PCN) Allergy Rash Verified 05/10/23 10:33 sulfamethoxazole (From Allergy Rash Verified 05/10/23 10:33 Bactrim) tramadol Allergy Rash Verified 05/10/23 10:33 trimethoprim (From Bactrim) Allergy Rash Verified 05/10/23 10:33 strawberry AdvReac Vomiting Verified 05/10/23 10:33 Family History Father Hypertension Kidney disease Mother Diabetes Surgical History Hx of kidney removal History of implantable cardiac defibrillator (ICD) (11/22/19) History of coronary artery stent placement (04/22/16) fistulogram History of thyroid surgery Social History Smoking Status: Never smoker alcohol intake: never substance use type: does not use diet: other caffeine: No what type of physical activity do you participate in: none seatbelt use: always do you feel safe at home: Yes ROS ROS ED Constitutional Constitutional ED: Denies chills or fever(s) Eyes Eyes: Denies blurry vision or change in vision ENT ENT ED: Denies rhinorrhea or sore throat Cardiovascular Cardiovascular: Reports chest pain and palpitations Respiratory/Chest Respiratory/Chest: Denies cough or dyspnea Gastrointestinal Gastrointestinal: Denies nausea or vomiting Genitourinary Genitourinary ED: Denies dysuria or hematuria Musculoskeletal Musculoskeletal: Reports back pain; Denies neck pain Integumentary Denies abscess or rash Neurologic Neurologic: Reports headache(s); Denies weakness Allergic/Immunologic Allergic/Immunologic ED: Denies mouth swelling or urticaria EXAM Physical Exam Const Vital Signs: 07/08/24 16:40 Temperature 98 F Temperature Source Oral Pulse Rate 78 Respiratory Rate 18 Blood Pressure 153/61 H Blood Pressure Mean 91 Pulse Ox 99 Oxygen Delivery Method Room Air Positive well nourished and well developed General Appearance ED: well developed and NAD HEENT Reports moist mucous membranes Neck supple and no JVD Resp normal respiratory effort and clear to auscultation bilaterally Cardio regular rate and regular rhythm GI non-tender and non-distended Palpation: soft Extremity General Extremety ED: Negative for edema or tenderness General Extremity: Negative for edema Neuro oriented x3 and CN's II-XII intact bilaterally Sensorium / Orientation: alert Motor Exam: strength 5/5 throughout Psych mental status grossly normal MDM MDM MDM Narrative Medical decision making narrative: Differential diagnosis includes cardiac dysrhythmia, cardiac ischemia, electrolyte abnormality, and congestive heart failure. EKG will be obtained to assess for cardiac dysrhythmia and cardiac ischemia. Chest x-ray will be obtained to assess for congestive heart failure. CBC will be obtained to assess for leukocytosis and anemia. Basic metabolic profile will be obtained to assess for electrolyte abnormality and renal function. High-sensitivity troponin will be obtained to assess for cardiac ischemia. History & Record Review Discussion w/independent historian: EMS personnel Additional record(s) reviewed:: Prior labs Lab Data Attestation: I reviewed the patient's lab results. Lab results narrative: CBC was reviewed. There is a mild anemia with a hemoglobin of 10.7 and alejandro tocrit of 32.3. White blood cell count was slightly low at 4.1. Platelets were normal. Basic metabolic profile was reviewed. Potassium was slightly low at 3.1. BUN was normal at 12. Creatinine was elevated at 4.21. This was improved from previous results. High-sensitivity troponin was reviewed and was normal at 42. Labs: Laboratory Results - last 24 hr 07/08/24 17:13 WBC 4.1 L RBC 3.46 L Hgb 10.7 L Hct 32.3 L MCV 93.4 MCH 30.9 MCHC 33.1 RDW Std Deviation 52.8 H RDW Coeff of Tana 15.9 H Plt Count 224 MPV 9.2 Immature Gran % (Auto) 0.200 Neut % (Auto) 56.4 Lymph % (Auto) 21.0 [place] % (Auto) 8.2 Eos % (Auto) 13.0 H Baso % (Auto) 1.2 H Absolute Neuts (auto) 2.3 Absolute Lymphs (auto) 0.87 Nucleated RBC % 0 Sodium 138 Potassium 3.1 L Chloride 94 L Carbon Dioxide 34.0 H Anion Gap 10 BUN 12 Creatinine 4.21 H Estim Creat Clear Calc 14.48 Est GFR (MDRD) Af Amer 14 L Est GFR (MDRD) Non-Af 11 L BUN/Creatinine Ratio 2.9 L Glucose 111 H Calcium 8.0 L Troponin I High Sens 42 EKG Initial EKG: Attestation: I personally reviewed and interpreted this EKG as follows: Interpretation: Sinus Rhythm (77) and No Acute Injury Pattern Comments: EKG was obtained. On my independent interpretation, it showed a normal sinus rhythm with a rate of 77. IN interval and QRS interval was within normal limits. QTc interval was slightly prolonged at 529 ms. Twisp was normal. There are no acute ST or T wave changes. Prior EKG tracings: available for review Prior: Unchanged (03/16/2023) Treatment and Re-Evaluation :: Patient was advised of her findings. Patient has a HEART score of 3. Patient was advised that this is low risk for acute cardiac event. Patient was instructed to follow-up with her primary care physician in 5 to 7 days. Patient was instructed to perform a Valsalva maneuver of her palpitations recurred. Patient was instructed return if the Valsalva maneuver does not convert her palpitations. Patient was instructed to return if worse in any way. Patient understood and was agreeable with the plan. All questions were answered. Discharge Plan Triage Chief Complaint: Palpitations ED Provider: Tai Preston Dx/Rx/DC Orders Clinical Impression: Heart palpitations, ESRD (end stage renal disease) on dialysis Instructions: ED Palpitations Prescriptions: No Action cholecalciferol (vitamin D3) 1,000 unit tablet 1,000 unit PO QDAY sevelamer carbonate 800 mg tablet 800 mg PO TID 30 Days Qty: 90 Patient Comments: 4 tabs tid Nephro-Yahir 0.8 mg tablet 1 tab PO DAILY calcium carbonate [Tums] 200 mg calcium (500 mg) tablet,chewable 400 mg PO BID fludrocortisone 0.1 mg tablet 0.1 mg PO DAILY Qty: 30 6RF levothyroxine 25 mcg capsule 25 mcg PO DAILY ipratropium bromide 21 mcg (0.03 %) spray,non-aerosol 2 spray intranasal BID Rx Instructions: administer into each nostril warfarin 1 MG tablet See Rx Instructions PO QHS Rx Instructions: 7 mg orally at bedtime; sertraline 50 MG tablet 50 mg PO QHS zolpidem 5 mg tablet 10 mg PO QHS PRN PRN (Reason: Insomnia) belladonna alkaloids-opium 16.2-30 mg suppository 1 supp IN TID PRN (Reason: pain) 7 Days Qty: 12 0RF nitroglycerin 0.4 mg tablet, sublingual 0.4 mg SUBLINGUAL Q5M PRN (Reason: Chest Pain) Qty: 25 2RF midodrine 2.5 mg tablet 5 mg PO TID Qty: 90 11RF atorvastatin 40 mg tablet 40 mg PO QHS Qty: 90 3RF Primary Care Provider: Tai Vieyra Referrals: Tai Vieyra MD [Primary Care Provider] - 5-7 Days Print Language: Bulgarian Disposition Disposition: Home, Self Care
--- NOTE | 2024-07-08 17:01 | EKG12_ITS ---
Test Reason : PALPITATIONS Blood Pressure : */* mmHG Vent. Rate : 77 BPM Atrial Rate : 77 BPM P-R Int : 174 ms QRS Dur : 84 ms QT Int : 468 ms P-R-T Axes : 59 43 64 degrees QTcB Int : 529 ms Normal sinus rhythm Abnormal ECG Confirmed by CALEB DAVIS, LOULOU ([id number]), loan expeditor FARHAN AGUILAR ([id number]) on 07/09/2024 11:05:44 AM Referred By: Confirmed By: LOULOU ELLIS MD
[2024-07-08 17:19] LABS: Absolute Lymphocyte Count 0.87 X10^3/uL (0.83-4.51); Absolute Neutrophil Count 2.3 X10^3/uL (2.0-7.7); Basophil# 0.05 X10^3/uL; Basophil% 1.2 % (0-1); Eosinophil# 0.54 X10^3/uL; Hematocrit 32.3 % (37-47); Hemoglobin 10.7 g/dL (12.0-15.0); Lymphocyte # 0.87 X10^3/ul (0.83-4.51); Mean Corp Hgb Conc 33.1 g/dL (32-36); Mean Corpuscular Hgb 30.9 pg (27.0-32.0); Mean Corpuscular Volume 93.4 fL (81-99); Mean Platelet Vol. 9.2 fl (6.2-12.0); Monocyte# 0.34 X10^3/uL; Monocyte% 8.2 % (0-10); NRBC Flagged by Analyzer 0 % (0-5); Neutrophil # 2.33 X10^3/uL (2.7-7.7); Neutrophil % 56.4 % (47-70); Platelet Count 224 K/mm3 (150-450); RBC Distribution Width CV 15.9 % (11.6-14.6); RBC Distribution Width SD 52.8 fl (35.1-43.9); Red Blood Count 3.46 M/mm3 (4.2-5.4); White Blood Count 4.1 K/mm3 (4.4-11.0)
[2024-07-08 17:37] LABS: Anion Gap 10 (5-15); BUN 12 mg/dL (7-18); BUN/Creat Ratio 2.9 RATIO (10-20); Chloride 94 mmol/L (98-107); Creatinine, Serum 4.21 mg/dL (0.55-1.02); EST Glomerular Filtration Rate 11 mL/min (>60); Est Glom Filt Rate - Afr Amer 14 mL/min (>60); Estimated Creatinine Clearance 14.48 ml/min; Glucose 111 mg/dL (74-106); Potassium 3.1 mmol/L (3.5-5.1); Sodium Level 138 mmol/L (136-145); Troponin-I HS 42 pg/mL (3.0-54.0)
--- NOTE | 2024-07-08 17:45 | RAD_ITS ---
STUDY: XR Chest 2 Views 07/08/2024 5:50 PM REASON FOR EXAM: Female, 58 years old. Palpitations COMPARISON: 9.6.23 TECHNIQUE: XR Chest 2 Views FINDINGS: There is no demonstrated pleural abnormality. Left axillary stent graft. Left-sided battery pack. Enlarged heart size. Normal mediastinum. Normal ana. Prominent appearing increased interstitial lung markings. Normal visualized pulmonary arteries. There is atherosclerotic calcification of the aortic arch with tortuosity. There are diffuse degenerative changes of the visualized thoracic spine. There is degenerative osteoarthritis of the bilateral shoulders. There are no acute findings of the upper abdomen. RAD/Chest PA and Lateral IMPRESSION: There are no acute findings. Electronically Signed: Maicol Rutherfodr MD at 18:19 EST ,
[2024-07-08 18:27] VITALS: BP 122/50; PULSE 69; RESP 18; TEMP 36.8; O2SAT 97
== END 2024-07-08 18:36 | disposition home or self-care (01) ==
PROVIDERS: Emergency Provider Emergency Medicine; PCP Family Medicine; Visit Provider Emergency Medicine
DX: R00.2 Palpitations (principal); N18.6 End stage renal disease; I12.0 Hypertensive chronic kidney disease with stage 5 chronic kidney disease or end stage renal disease; I25.10 Atherosclerotic heart disease of native coronary artery without angina pectoris; Z99.2 Dependence on renal dialysis; I25.5 Ischemic cardiomyopathy; E78.1 Pure hyperglyceridemia; E78.5 Hyperlipidemia, unspecified; Z79.890 Hormone replacement therapy; Z79.01 Long term (current) use of anticoagulants; Z79.899 Other long term (current) drug therapy; Z95.810 Presence of automatic (implantable) cardiac defibrillator; Z95.5 Presence of coronary angioplasty implant and graft
CPT/HCPCS: 71046; 80048; 84484; 85025; 93005; 99284; A4216

== ENCOUNTER 2024-07-18 10:32 | Outpatient (RCR) | payer MEDICARE, MEDICAID, SELFPAY ==
[2024-07-18 12:33] LABS: International Normalized Ratio 2.1; Prothrombin Time (Protime)PT. 23.8 SECONDS (11.7-14.9)
[2024-08-09 17:16] LABS: International Normalized Ratio 1.9; Prothrombin Time (Protime)PT. 22.2 SECONDS (11.7-14.9)
== END 2024-08-10 23:59 ==
LOC: BWCLAB 10:32
PROVIDERS: PCP Family Medicine; Referring Provider Family Medicine; Visit Provider Family Medicine
DX: I25.10 Atherosclerotic heart disease of native coronary artery without angina pectoris (principal)
CPT/HCPCS: 36415; 85610

== ENCOUNTER → 2024-07-23 | Outpatient (CLI) | payer MEDICARE, MEDICAID, SELFPAY ==
[2024-07-23 12:29] LABS: Prothrombin Time (Protime)PT. 22.8 SECONDS (11.7-14.9)
== END | disposition home or self-care (01) ==
LOC: MFPLAB 10:13
PROVIDERS: PCP Family Medicine; Referring Provider Family Medicine; Visit Provider Family Medicine
DX: I77.0 Arteriovenous fistula, acquired (principal)
CPT/HCPCS: 36415; 85610

== ENCOUNTER 2024-09-04 14:17 | Outpatient (RCR) | payer MEDICARE, MEDICAID, SELFPAY ==
[2024-08-28 12:35] LABS: International Normalized Ratio 2.4; Prothrombin Time (Protime)PT. 26.5 SECONDS (11.7-14.9)
[2024-09-04 15:32] LABS: International Normalized Ratio 2.1; Prothrombin Time (Protime)PT. 23.6 SECONDS (11.7-14.9)
== END 2024-09-07 23:59 ==
LOC: BWCLAB 14:17
PROVIDERS: PCP Family Medicine; Referring Provider Family Medicine; Visit Provider Family Medicine
DX: I25.10 Atherosclerotic heart disease of native coronary artery without angina pectoris (principal)
CPT/HCPCS: 36415; 85610

== ENCOUNTER 2024-09-11 16:28 | Outpatient (RCR) | payer MEDICARE, MEDICAID, SELFPAY ==
[2024-09-11 17:07] LABS: International Normalized Ratio 2.2; Prothrombin Time (Protime)PT. 25.3 SECONDS (11.7-14.9)
== END 2024-10-08 23:59 ==
LOC: BWCLAB 16:28
PROVIDERS: PCP Family Medicine; Referring Provider Family Medicine; Visit Provider Family Medicine
DX: I25.10 Atherosclerotic heart disease of native coronary artery without angina pectoris (principal)
CPT/HCPCS: 36415; 85610

== ENCOUNTER 2024-09-17 16:07 | Emergency (ER) | payer MEDICARE, MEDICAID, SELFPAY ==
[2024-09-17 16:08] VITALS: BP 127/104; PULSE 162; RESP 22; TEMP 37; O2SAT 99; BMI 34.4
--- NOTE | 2024-09-17 16:19 | EKG12_ITS ---
Test Reason : REPEAT Blood Pressure : */* mmHG Vent. Rate : 96 BPM Atrial Rate : 96 BPM P-R Int : 144 ms QRS Dur : 84 ms QT Int : 422 ms P-R-T Axes : * 19 64 degrees QTcB Int : 533 ms Sinus rhythm with frequent Premature ventricular complexes Prolonged QT Abnormal ECG Confirmed by Jeremy Vega ([id number]), editor publications FARHAN AGUILAR ([id number]) on 09/18/2024 10:56:35 AM Referred By: Confirmed By: Jeremy Vega
--- NOTE | 2024-09-17 16:20 | EX.ED.DYSGE1 ---
HPI History of Present Illness Chief Complaint: Chest Pain Narrative Narrative: 59-year-old female past medical history of end-stage renal disease, coronary artery disease and ICD presents with heart palpitations and minimal chest pressure at dialysis today. Started about 2 hours and 20 minutes ago. She was unable to receive her full dialysis, last was on Tuesday, 3 days ago as she usually receives it every Tuesday, Tuesday and Tuesday. She relates history that she had heart palpitations and rapid heart rate a few months ago, just before [place]. They never found what was going on. She states that EMS had have her do Valsalva maneuvers which alleviated her rapid heart rate. However, they tried this multiple times at dialysis without resolution. 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 [facility] Medical History Polycystic kidney disease Sudden cardiac Hypertriglyceridemia Hyperlipidemia History of torsades de pointes Atherosclerosis of coronary artery of [place] heart without angina pectoris Syncope and collapse Ventricular fibrillation Ischemic cardiomyopathy ESRD (end stage renal disease) on dialysis Nonsustained ventricular tachycardia History of recurrent miscarriages, not currently History of DVT (deep vein thrombosis) Congenital polycystic kidney disease History of allergic rhinitis Obesity Benign essential hypertension Home Medications ?Medication ?Instructions ?Recorded ?Last Taken ?Type sertraline 50 mg tablet 50 mg PO QHS depression 01/19/17 03/15/23 History warfarin 1 mg tablet See Rx Instructions PO QHS blood 01/19/17 03/15/23 History thinner cholecalciferol (vitamin D3) 25 1,000 unit PO QDAY 10/24/17 03/15/23 History mcg (1,000 unit) tablet vitamin B complex-vitamin C-folic 1 tab PO DAILY 03/13/19 03/15/23 History acid 0.8 mg tablet (Nephro-Yahir) sevelamer carbonate 800 mg tablet 800 mg PO TID 30 days #90 tabs 06/11/21 03/15/23 History belladonna alkaloids-opium 16.2 1 supp MA TID PRN pain 7 days #12 01/30/22 03/15/23 Rx mg-30 mg rectal suppository ea calcium carbonate (Tums) 400 mg PO BID 03/30/22 03/15/23 History nitroglycerin 0.4 mg sublingual 0.4 mg sublingual Q5M PRN Chest 10/14/22 03/15/23 Rx tablet Pain #25 tabs fludrocortisone 0.1 mg tablet 0.1 mg PO DAILY #30 tabs 01/20/23 03/15/23 Rx ipratropium bromide 21 mcg (0.03 2 spray intranasal BID 05/10/23 Unknown History %) nasal spray levothyroxine 25 mcg capsule 25 mcg PO DAILY 05/10/23 Unknown History zolpidem 5 mg tablet 10 mg PO QHS PRN PRN Insomnia 05/10/23 Unknown History midodrine 2.5 mg tablet 5 mg (2 x 2.5 mg) PO TID #90 tabs 06/01/23 Unknown Rx atorvastatin 40 mg tablet 40 mg PO QHS cholesterol #90 tabs 06/04/24 Unknown Rx methylprednisolone 4 mg tablets in See Rx Instructions PO PER PKG DIR 08/21/24 Unknown Rx a dose pack (Medrol (Aime)) #21 tabs digoxin 125 mcg (0.125 mg) tablet 125 mcg PO QODAY #30 tabs 09/17/24 Unknown Rx Allergy/AdvReac Type Severity Reaction Status Date / Time amoxicillin Allergy Rash Verified 09/17/24 16:08 doxercalciferol (From Allergy Hives Verified 09/17/24 16:08 Hectorol) etodolac Allergy Rash Verified 09/17/24 16:08 Penicillins (PCN) Allergy Rash Verified 09/17/24 16:08 sulfamethoxazole (From Allergy Rash Verified 09/17/24 16:08 Bactrim) tramadol Allergy Rash Verified 09/17/24 16:08 trimethoprim (From Bactrim) Allergy Rash Verified 09/17/24 16:08 strawberry AdvReac Vomiting Verified 09/17/24 16:08 Family History Father Hypertension Kidney disease Mother Diabetes Surgical History Hx of kidney removal History of implantable cardiac defibrillator (ICD) (11/22/19) History of coronary artery stent placement (04/22/16) fistulogram History of thyroid surgery Social History Smoking Status: Never smoker alcohol intake: never substance use type: does not use diet: other caffeine: No what type of physical activity do you participate in: none seatbelt use: always do you feel safe at home: Yes ROS ROS ED ROS Narrative Constitutional: No fever, no chills. HEENT: No sore throat. No neck pain. No loss of vision. No rhinorrhea. Cardiovascular: Minimal chest discomfort, feels more heart racing and positive heart palpitations and rapid heart rate. No pedal edema. Respiratory: No cough, no shortness of breath. Abdominal: No abdominal pain. No nausea. No vomiting. Genitourinary: No dysuria. No hematuria. Musculoskeletal: No myalgias. No arthralgias. Neurologic: No headaches. No dizziness. No lightheadedness. Skin: No rash. No change in color. Psychiatric: No depression. No anxiety. EXAM Physical Exam Narrative Exam Narrative: Afebrile. Vital signs noted. Nontoxic-appearing. Cardiovascular examination reveals an irregularly irregular tachycardia at 162 bpm. Lungs clear to auscultation bilaterally. Abdomen soft nontender. Neurological examination nonfocal and nonlateralizing. No appreciated pedal edema. Const Vital Signs: 09/17/24 16:08 09/17/24 17:11 Temperature 98.6 F Temperature Source Oral Pulse Rate 162 H 91 Respiratory Rate 22 H 17 Blood Pressure 127/104 H 102/51 L Blood Pressure Mean 111 68 Pulse Ox 99 95 MDM MDM MDM Narrative Medical decision making narrative: Differential diagnosis includes but not limited to paroxysmal SVT versus A-fib with RVR versus sinus tachycardia. Given her history of ICD as well as coronary artery disease, comprehensive workup was pursued. EKG obtained and interpreted by myself independently does show an irregularly irregular tachycardia at 162 bpm although it is being read as sinus tachycardia electronically. She will be given Cardizem as I feel she probably has more atrial fibrillation with RVR. It has not broken with Valsalva maneuvers already so I do not feel adenosine is indicated. I reviewed her laboratory work and she has normal white count of 5.9 with hemoglobin stable at 11.6 with platelet count normal at 207. INR is appropriately elevated at 2.5 with her use of Coumadin. I reviewed her BMP which shows BUN of 25 and creatinine 6.01 consistent with her end-stage renal disease. LFTs are grossly unremarkable. Anion gap slightly elevated at 17 with chloride low at 89. Chest x-ray in 1 view interpreted by myself independently shows no acute process, no pneumonia or pneumothorax. I reviewed the radiology report which confirms my independent interpretation. After 20 mg of Cardizem intravenously, repeat EKG was obtained and interpreted by myself which shows normal sinus rhythm at 96 bpm with PVCs. I discussed patient with Dr. Vega with cardiology as she sees Dr. Garvin. He would like her to have 0.5 mg of digoxin intravenously, then she was written a prescription for 125 mcg which she is supposed to take every other day for rate control. This was advised because she has history of hypotension. She is to follow-up in 2 to 3 weeks with cardiology for digoxin level. Repeat examination after rate control shows that she feels improved and is no longer having chest discomfort. She is currently rate controlled. I do feel that she cardioverted as well. I do not feel she requires observation or admission at this time. Disposition is discharged home in stable condition. History & Record Review Discussion w/independent historian: Patient Lab Data Attestation: I reviewed the patient's lab results. Labs: Laboratory Results - last 24 hr 09/17/24 16:23 WBC 5.9 RBC 3.51 L Hgb 11.6 L Hct 34.0 L MCV 96.9 MCH 33.0 H MCHC 34.1 RDW Std Deviation 51.5 H RDW Coeff of Tana 14.8 H Plt Count 207 MPV 9.3 Immature Gran % (Auto) 0.200 Neut % (Auto) 68.7 Lymph % (Auto) 18.8 L [place] % (Auto) 6.6 Eos % (Auto) 5.2 H Baso % (Auto) 0.5 Absolute Neuts (auto) 4.1 Absolute Lymphs (auto) 1.11 Nucleated RBC % 0 PT 27.9 H INR 2.5 Sodium 139 Potassium 3.5 Chloride 89 L Carbon Dioxide 33.0 H Anion Gap 17 H BUN 25 H Creatinine 6.01 H Estim Creat Clear Calc 10.10 L Est GFR (MDRD) Non-Af 7 L BUN/Creatinine Ratio 4.2 L Glucose 93 Calcium 8.5 Total Bilirubin 0.26 AST 25 ALT 23 Alkaline Phosphatase 96 Total Protein 7.6 Albumin 4.5 Globulin 3.1 Albumin/Globulin Ratio 1.4 Radiography Chest X-Ray - ED: 1 View, Read by ED Physician and Read by Radiologist Diagnostic Testing: Clinical Impression(s) from Imaging Studies Chest X-Ray 09/17/24 16:28 IMPRESSION: Stable chest radiograph. Reading Location: [facility] Management Discussion w/another healthcare provider: Monitor Worker (Dr. Vega, cardiology) Discharge Plan Triage Chief Complaint: Chest Pain ED Provider: Marques Peace Dx/Rx/DC Orders Clinical Impression: Atrial fibrillation with rapid ventricular response, ESRD (end stage renal disease) on dialysis, care home current use of anticoagulant Instructions: ED AFIB Prescriptions: New digoxin 125 mcg (0.125 mg) tablet 125 mcg PO QODAY Qty: 30 0RF No Action cholecalciferol (vitamin D3) 1,000 unit tablet 1,000 unit PO QDAY sevelamer carbonate 800 mg tablet 800 mg PO TID 30 Days Qty: 90 Patient Comments: 4 tabs tid Nephro-Yahir 0.8 mg tablet 1 tab PO DAILY calcium carbonate [Tums] 200 mg calcium (500 mg) tablet,chewable 400 mg PO BID fludrocortisone 0.1 mg tablet 0.1 mg PO DAILY Qty: 30 6RF levothyroxine 25 mcg capsule 25 mcg PO DAILY ipratropium bromide 21 mcg (0.03 %) spray,non-aerosol 2 spray intranasal BID Rx Instructions: administer into each nostril methylprednisolone [Medrol (Aime)] 4 mg tablets,dose pack See Rx Instructions PO PER PKG DIR Qty: 21 0RF Rx Instructions: PO PER PKG DIR warfarin 1 MG tablet See Rx Instructions PO QHS Rx Instructions: 7 mg orally at bedtime; sertraline 50 MG tablet 50 mg PO QHS zolpidem 5 mg tablet 10 mg PO QHS PRN PRN (Reason: Insomnia) belladonna alkaloids-opium 16.2-30 mg suppository 1 supp MA TID PRN (Reason: pain) 7 Days Qty: 12 0RF nitroglycerin 0.4 mg tablet, sublingual 0.4 mg SUBLINGUAL Q5M PRN (Reason: Chest Pain) Qty: 25 2RF midodrine 2.5 mg tablet 5 mg PO TID Qty: 90 11RF atorvastatin 40 mg tablet 40 mg PO QHS Qty: 90 3RF Primary Care Provider: Tai Vieyra Referrals: Ernesto Garvin MD [Med Staff - Active Staff] - 1-2 Weeks Tai Vieyra MD [Primary Care Provider] - Activity Restrictions/Additional Instructions: Take the digoxin every other day starting 2 days from now. You will need to have a digoxin level checked. Follow-up with your esthetics instructor in approximately 2 to 3 weeks. Return with elevated heart rate, new or worsening symptoms. Print Language: Vietnamese Disposition Disposition: Home, Self Care
--- NOTE | 2024-09-17 16:28 | RAD_ITS ---
PROCEDURE: CHEST 1 VIEW (PORTABLE) REASON FOR EXAM: 59-year-old female, palpitations, coronary artery disease. TECHNIQUE: Frontal view of the chest. COMPARISON: Chest radiograph 07/08/2024. FINDINGS: Partially visualized vascular stent overlying the left axilla. Left chest wall cardiac conduction device Stable mild cardiomegaly. Calcification of the thoracic aorta. No focal consolidation, pleural effusion or pneumothorax. Degenerative changes are identified within the thoracic spine. RAD/Chest 1 View (Portable) IMPRESSION: Stable chest radiograph. Reading Location: [id number]
[2024-09-17 16:29] LABS: Absolute Lymphocyte Count 1.11 X10^3/uL (0.83-4.51); Absolute Neutrophil Count 4.1 X10^3/uL (2.0-7.7); Basophil# 0.03 X10^3/uL; Basophil% 0.5 % (0-1); Eosinophil# 0.31 X10^3/uL; Eosinophils% 5.2 % (0-5); Hemoglobin 11.6 g/dL (12.0-15.0); Lymphocyte # 1.11 X10^3/ul (0.83-4.51); Lymphocyte % 18.8 % (19-41); Mean Corp Hgb Conc 34.1 g/dL (32-36); Mean Corpuscular Volume 96.9 fL (81-99); Mean Platelet Vol. 9.3 fl (6.2-12.0); Monocyte# 0.39 X10^3/uL; Monocyte% 6.6 % (0-10); NRBC Flagged by Analyzer 0 % (0-5); Neutrophil # 4.06 X10^3/uL (2.7-7.7); Neutrophil % 68.7 % (47-70); Platelet Count 207 K/mm3 (150-450); RBC Distribution Width CV 14.8 % (11.6-14.6); RBC Distribution Width SD 51.5 fl (35.1-43.9); Red Blood Count 3.51 M/mm3 (4.2-5.4); White Blood Count 5.9 K/mm3 (4.4-11.0)
[2024-09-17] MEDS: dilTIAZem 25 MG/5 ML Vial 20 MG IV BOLUS (16:33)
[2024-09-17 16:49] LABS: International Normalized Ratio 2.5; Prothrombin Time (Protime)PT. 27.9 SECONDS (11.7-14.9)
[2024-09-17 17:11] VITALS: BP 102/51; PULSE 91; RESP 17; O2SAT 95
--- NOTE | 2024-09-17 17:11 | EKG12_ITS ---
Test Reason : Blood Pressure : */* mmHG Vent. Rate : 162 BPM Atrial Rate : 162 BPM P-R Int : 136 ms QRS Dur : 74 ms QT Int : 268 ms P-R-T Axes : 40 49 220 degrees QTcB Int : 439 ms Critical Test Result: High HR Atrial fibrillation with rapid ventricular response Marked ST abnormality, possible lateral subendocardial injury Abnormal ECG Confirmed by Jeremy Vega ([id number]), news video editor FARHAN AGUILAR ([id number]) on 09/18/2024 10:48:43 AM Referred By: Confirmed By: Jeremy Vega
[2024-09-17 17:13] LABS: ALB/GLOB Ratio 1.4 RATIO (0.9-2.4); AST(SGOT) 25 U/L (<=31); Alanine Aminotransfer ALT/SGPT 23 U/L (<=34); Albumin, Serum 4.5 g/dL (3.4-4.8); Alkaline Phosphatase 96 U/L (35-104); Anion Gap 17 (5-15); BUN 25 mg/dL (4-19); BUN/Creat Ratio 4.2 RATIO (10-20); Calcium,Total 8.5 mg/dL (7.6-11.0); Chloride 89 mmol/L (98-108); Creatinine, Serum 6.01 mg/dL (0.70-1.20); EST Glomerular Filtration Rate 7 (>60); Globulin 3.1 g/dL (2.2-4.2); Glucose 93 mg/dL (70-99); Potassium 3.5 mmol/L (3.3-5.1); Protein, Total 7.6 g/dL (5.9-8.4); Sodium Level 139 mmol/L (133-145); Total Bilirubin 0.26 mg/dL (0.00-1.30)
[2024-09-17] MEDS: Digoxin 250 MCG/ML Ampul 500 MCG IV (18:31)
[2024-09-17 18:32] VITALS: BP 98/44; PULSE 92; RESP 20; O2SAT 97
== END 2024-09-17 18:37 | disposition home or self-care (01) ==
PROVIDERS: Emergency Provider Emergency Medicine; PCP Family Medicine; Visit Provider Emergency Medicine
DX: R07.9 Chest pain, unspecified (principal); I12.0 Hypertensive chronic kidney disease with stage 5 chronic kidney disease or end stage renal disease; N18.6 End stage renal disease; I48.91 Unspecified atrial fibrillation; I25.10 Atherosclerotic heart disease of native coronary artery without angina pectoris; E78.5 Hyperlipidemia, unspecified; Q61.3 Polycystic kidney, unspecified; E78.1 Pure hyperglyceridemia; E66.9 Obesity, unspecified; Z95.5 Presence of coronary angioplasty implant and graft; Z79.899 Other long term (current) drug therapy; Z99.2 Dependence on renal dialysis; Z79.01 Long term (current) use of anticoagulants
CPT/HCPCS: 71045; 80053; 85025; 85610; 93005; 96374; 96375; 99285

== ENCOUNTER 2024-10-11 10:37 | Outpatient (RCR) | payer MEDICARE, MEDICAID, SELFPAY ==
[2024-10-11 12:19] LABS: Prothrombin Time (Protime)PT. 23.1 SECONDS (11.7-14.9)
== END 2024-11-07 23:59 ==
LOC: BWCLAB 10:37
PROVIDERS: PCP Family Medicine; Referring Provider Family Medicine; Visit Provider Family Medicine
DX: I25.10 Atherosclerotic heart disease of native coronary artery without angina pectoris (principal)
CPT/HCPCS: 36415; 85610

== ENCOUNTER → 2024-10-18 | Outpatient (CLI) | payer MEDICARE, MEDICAID, SELFPAY ==
[2024-10-18 13:23] LABS: Digoxin Level 0.68 ng/mL (0.00-2.00)
== END | disposition home or self-care (01) ==
LOC: BWCLAB 08:49
PROVIDERS: PCP Family Medicine; Referring Provider Nurse Practitioner Family; Visit Provider Nurse Practitioner Family
DX: I48.0 Paroxysmal atrial fibrillation (principal)
CPT/HCPCS: 36415; 80162

== ENCOUNTER 2024-11-23 10:34 | Outpatient (RCR) | payer MEDICARE, MEDICAID, SELFPAY ==
[2024-11-15 17:06] LABS: International Normalized Ratio 1.6; Prothrombin Time (Protime)PT. 19.5 SECONDS (11.7-14.9)
[2024-11-23 12:15] LABS: International Normalized Ratio 1.9; Prothrombin Time (Protime)PT. 22.2 SECONDS (11.7-14.9)
[2024-11-30 11:40] LABS: International Normalized Ratio 2.5; Prothrombin Time (Protime)PT. 27.8 SECONDS (11.7-14.9)
== END 2024-12-08 23:59 ==
LOC: BWCLAB 10:34
PROVIDERS: PCP Family Medicine; Referring Provider Family Medicine; Visit Provider Family Medicine
DX: I25.10 Atherosclerotic heart disease of native coronary artery without angina pectoris (principal)
CPT/HCPCS: 36415; 85610

== ENCOUNTER 2024-12-17 10:36 | Outpatient (RCR) | payer MEDICARE, MEDICAID, SELFPAY ==
[2024-12-17 12:26] LABS: International Normalized Ratio 2.5; Prothrombin Time (Protime)PT. 27.3 SECONDS (11.7-14.9)
[2024-12-29 17:59] LABS: International Normalized Ratio 2.7; Prothrombin Time (Protime)PT. 28.9 SECONDS (11.7-14.9)
== END 2025-01-07 23:59 ==
LOC: BWCLAB 10:36
PROVIDERS: PCP Family Medicine; Referring Provider Family Medicine; Visit Provider Family Medicine
DX: Z00.00 Encounter for general adult medical examination without abnormal findings (principal)
CPT/HCPCS: 36415; 85610

== ENCOUNTER 2025-01-15 16:05 | Outpatient (RCR) | payer MEDICARE, MEDICAID, SELFPAY ==
[2025-01-15 16:51] LABS: Prothrombin Time (Protime)PT. 27.0 SECONDS (11.7-14.9)
== END 2025-02-07 23:59 ==
LOC: BWCLAB 16:05
PROVIDERS: PCP Family Medicine; Referring Provider Family Medicine; Visit Provider Family Medicine
DX: I25.10 Atherosclerotic heart disease of native coronary artery without angina pectoris (principal)
CPT/HCPCS: 36415; 85610

== ENCOUNTER 2025-02-19 15:29 | Outpatient (RCR) | payer MEDICARE, MEDICAID, SELFPAY ==
[2025-02-19 16:52] LABS: Prothrombin Time (Protime)PT. 28.4 SECONDS (11.7-14.9)
== END 2025-03-10 23:59 ==
LOC: BWCLAB 15:29
PROVIDERS: PCP Family Medicine; Referring Provider Family Medicine; Visit Provider Family Medicine
DX: Z00.00 Encounter for general adult medical examination without abnormal findings (principal)
CPT/HCPCS: 36415; 85610

== ENCOUNTER 2025-03-28 16:48 | Emergency (ER) | payer MEDICARE, MEDICAID, SELFPAY ==
[2025-03-28] VITALS (8 sets, daily range): BP systolic 191–219; BP diastolic 53–69; PULSE 63–75; RESP 12–21; TEMP 36.6–36.9; O2SAT 92–100; BMI 35.9
--- NOTE | 2025-03-28 17:17 | EKG12_ITS ---
Test Reason : CP Blood Pressure : */* mmHG Vent. Rate : 71 BPM Atrial Rate : 71 BPM P-R Int : 176 ms QRS Dur : 84 ms QT Int : 472 ms P-R-T Axes : 1 33 79 degrees QTcB Int : 512 ms Normal sinus rhythm Nonspecific ST and T wave abnormality Prolonged QT Abnormal ECG Confirmed by CALEB DAVIS, LOULOU ([id number]), design editor GALO OLGUIN ([id number]) on 03/29/2025 10:48:03 AM Referred By: LICO Confirmed By: LOULOU ELLIS MD
--- NOTE | 2025-03-28 17:30 | RAD_ITS ---
PROCEDURE: CHEST PA AND LATERAL 03/28/2025 REASON FOR EXAM: CHEST PRESSURE, DYSPNEA AND ELEVATED BLOOD PRESSUR TECHNIQUE: Procedure Code: RADCXR Modality: DX Procedure: CHEST PA AND LATERAL COMPARISON: 09/17/2024 FINDINGS: Devices: Anterior left chest wall subcutaneous ICD. Lungs/Pleura: Small bibasilar pleural effusions and/or atelectasis. No pneumothorax. No focal airspace consolidation. Heart/Mediastinum: Mildly enlarged. Aortic arch calcification. Bones/Soft tissues: Degenerative changes of the spine. Left axillary vascular stent. RAD/Chest PA and Lateral IMPRESSION: Mild cardiomegaly. Small bibasilar pleural effusions/atelectasis. Reading Location: [facility]
[2025-03-28 17:38] LABS: Hematocrit 28.5 % (37-47); Hemoglobin 9.1 g/dL (12.0-15.0); Immature Granulocytes Count 0.010 X10^3/uL (0.0-0.0); Mean Corp Hgb Conc 31.9 g/dL (32-36); Mean Corpuscular Volume 91.6 fL (81-99); Mean Platelet Vol. 9.4 fl (6.2-12.0); NRBC Flagged by Analyzer 0.6 % (0-5); Platelet Count 266 K/mm3 (150-450); RBC Distribution Width CV 16.6 % (11.6-14.6); RBC Distribution Width SD 52.5 fl (35.1-43.9); Red Blood Count 3.11 M/mm3 (4.2-5.4); White Blood Count 4.8 K/mm3 (4.4-11.0)
[2025-03-28 17:57] LABS: Anion Gap 16 (5-15); BUN 27 mg/dL (4-19); BUN/Creat Ratio 3.6 RATIO (10-20); Calcium,Total 8.7 mg/dL (7.6-11.0); Carbon Dioxide 28.8 mmol/L (21.0-32.0); Chloride 96 mmol/L (98-108); Glucose 115 mg/dL (70-99); Potassium 4.0 mmol/L (3.3-5.1)
[2025-03-28 18:00] LABS: Troponin T High Sensitivity 63 ng/L (<=14)
--- NOTE | 2025-03-28 20:27 | ED.VIS.CHEST ---
HPI History of Present Illness Chief Complaint: Chest Pain Detail of Chief Complaint: Chest pressure and elevated blood pressure. Informant: patient Onset/Context/Timing Onset: Today and Yesterday Activity at onset: sudden and rest (Today occurred during dialysis.) Timing: Continuous (Today) and Intermittent (Lasted approximate hour yesterday) Quality: Positive for Pressure Location: Substernal Current Severity: Mild Maximum Severity: Moderate Worsened By: - (Usually occurs during dialysis.) Relieved By: Nothing Associated Symptoms: Positive for Nausea and Dyspnea; Negative for Vomiting, Diaphoresis, Cough, Fever, Lightheadedness, Acid Reflux or Palpitations Narrative Narrative: Patient is a 59-year-old woman. She has history of end-stage renal dialysis status post bilateral nephrectomy due to polycystic kidney disease. She is on hemodialysis Tuesday, and Tuesday. She has a history of paroxysmal atrial fibrillation, DVT, ICD, coronary artery disease with stent placement many years ago. She also has history of torsades de point and benign essential hypertension. Patient presents because of chest discomfort. This occurred during dialysis. She still having some discomfort. She denies radiation of the pain. She has slight nausea and shortness of breath. She denies abdominal pain, vomiting or diarrhea. She makes no urine since she is status post nephrectomy bilaterally. She denies history of trauma. She denies headache, visual, ocular auditory symptoms. She has no upper respiratory tract infectious symptoms. She denies fever or chills. Prior Similar Symptoms: Yes Recent Illness/Hospitalization: No CVD Risk Factors: Positive for Hypertension and Hypercholesterolemia PE Risk Factors: Positive for Prior DVT or PE and OCP + Smoking + >/=35; Negative for Recent Travel/Surgery, Recent Immobilization or Cancer TAD Risk Factors: Positive for Hypertension; Negative for Marfan's Syndrome or Family History [facility] Medical History Polycystic kidney disease Sudden cardiac Hypertriglyceridemia Hyperlipidemia History of torsades de pointes Atherosclerosis of coronary artery of [place] heart without angina pectoris Syncope and collapse Ventricular fibrillation Ischemic cardiomyopathy ESRD (end stage renal disease) on dialysis Nonsustained ventricular tachycardia History of recurrent miscarriages, not currently History of DVT (deep vein thrombosis) Congenital polycystic kidney disease History of allergic rhinitis Obesity Benign essential hypertension Home Medications ?Medication ?Instructions ?Recorded ?Last Taken ?Type sertraline 50 mg tablet 50 mg PO QHS depression 01/19/17 03/15/23 History cholecalciferol (vitamin D3) 25 1,000 unit PO QDAY 10/24/17 03/15/23 History mcg (1,000 unit) tablet sevelamer carbonate 800 mg tablet 800 mg PO TID 30 days #90 tabs 06/11/21 03/15/23 History calcium carbonate (Tums) 400 mg PO BID 03/30/22 03/15/23 History nitroglycerin 0.4 mg sublingual 0.4 mg sublingual Q5M PRN Chest 10/14/22 03/15/23 Rx tablet Pain #25 tabs ipratropium bromide 21 mcg (0.03 2 spray intranasal BID 05/10/23 Unknown History %) nasal spray atorvastatin 10 mg tablet 10 mg PO DAILY #30 tabs 10/11/24 Unknown Rx levothyroxine 25 mcg tablet 25 mcg PO QDAY 10/11/24 Unknown History midodrine 10 mg tablet 10 mg PO DAILY 10/11/24 Unknown History vitamin B complex-vitamin C-folic 1 tab PO QDAY 10/11/24 Unknown History acid 0.8 mg tablet (Rani-Yahir) warfarin 2 mg tablet 2 mg PO QDAY 10/11/24 Unknown History warfarin 3 mg tablet 3 mg PO 3XW 10/11/24 Unknown History warfarin 5 mg tablet 5 mg PO QDAY 10/11/24 Unknown History zolpidem 10 mg tablet 10 mg PO QHS PRN insomnia 10/11/24 Unknown History digoxin 125 mcg (0.125 mg) tablet 125 mcg PO QODAY #30 tabs 01/09/25 Unknown Rx Allergy/AdvReac Type Severity Reaction Status Date / Time amoxicillin Allergy Rash Verified 03/28/25 16:50 doxercalciferol (From Allergy Hives Verified 03/28/25 16:50 Hectorol) etodolac Allergy Rash Verified 03/28/25 16:50 Penicillins (PCN) Allergy Rash Verified 03/28/25 16:50 sulfamethoxazole (From Allergy Rash Verified 03/28/25 16:50 Bactrim) tramadol Allergy Rash Verified 03/28/25 16:50 trimethoprim (From Bactrim) Allergy Rash Verified 03/28/25 16:50 strawberry AdvReac Vomiting Verified 03/28/25 16:50 Family History Father Hypertension Kidney disease Mother Diabetes Surgical History Hx of kidney removal History of implantable cardiac defibrillator (ICD) (11/22/19) History of coronary artery stent placement (04/22/16) fistulogram History of thyroid surgery Social History Smoking Status: Never smoker alcohol intake: never substance use type: does not use diet: other caffeine: No what type of physical activity do you participate in: none seatbelt use: always do you feel safe at home: Yes ROS ROS ED Constitutional Constitutional ED: Denies chills, fever(s), subjective or sweats Eyes Eyes: Reports none ENT ENT ED: Denies ear pain, rhinorrhea or sore throat Cardiovascular Cardiovascular: Reports as per HPI; Denies orthopnea or paroxysmal nocturnal dyspnea Respiratory/Chest Respiratory/Chest: Reports dyspnea; Denies cough, dyspnea on exertion, orthopnea, paroxysmal nocturnal dyspnea or sputum Gastrointestinal Gastrointestinal: Reports nausea; Denies abdominal pain, constipation, diarrhea, melena or vomiting Musculoskeletal Musculoskeletal: Denies arthralgias, back pain, myalgias or neck pain Integumentary Denies rash Neurologic Neurologic: Denies headache(s) or paresthesias Endocrine Endocrinology: Denies cold intolerance or heat intolerance Hematologic/Lymphatic Hematologic/Lymphatic: Denies easy bleeding or easy bruising EXAM Physical Exam Const Vital Signs: 03/28/25 16:49 03/28/25 17:04 03/28/25 17:05 Temperature 98.5 F Temperature Source Oral Pulse Rate 75 73 Respiratory Rate 16 21 H Respiratory Effort Normal Non-Labored Respiratory Pattern Normal Blood Pressure 219/69 H 200/59 H Blood Pressure Mean 119 106 Pulse Ox 100 92 Oxygen Delivery Method Room Air Room Air Oxygen Flow Rate (L/min) 03/28/25 18:34 03/28/25 18:37 03/28/25 19:00 Temperature Temperature Source Pulse Rate 67 66 Respiratory Rate 12 18 Respiratory Effort Respiratory Pattern Blood Pressure 194/59 H 196/56 H Blood Pressure Mean 104 102 Pulse Ox 94 97 95 Oxygen Delivery Method Nasal Cannula Nasal Cannula Oxygen Flow Rate (L/min) 2 2 03/28/25 20:00 03/28/25 21:00 Temperature Temperature Source Pulse Rate 66 65 Respiratory Rate 15 13 Respiratory Effort Respiratory Pattern Blood Pressure 192/58 H 191/53 H Blood Pressure Mean 102 99 Pulse Ox 98 99 Oxygen Delivery Method Nasal Cannula Nasal Cannula Oxygen Flow Rate (L/min) 2 2 Positive well nourished and well developed Constitutional Narrative: Patient appears in no distress. General Appearance ED: well developed HEENT Reports moist mucous membranes normocephalic Eyes PERRL and EOMs intact bilaterally General Eye ED: Negative for pale conjunctiva or scleral icterus Neck no lymphadenopathy, supple and no JVD Chest Wall inspection of chest normal and palpation of chest normal Resp normal respiratory effort and clear to auscultation bilaterally Cardio regular rate, regular rhythm, S1 normal heart sound, S2 normal heart sound and no murmurs GI normal to inspection, nondistended, normoactive bowel sounds, soft to palpation, non-tender, non-distended and no masses; Negative for hepatosplenomegaly Back/Spine no CVA tenderness and no thoracic nor lumbar tenderness Extremity normal to inspection Neuro oriented x3, CN's II-XII intact bilaterally and no sensory deficits noted Sensorium / Orientation: awake and alert Psych mental status grossly normal Skin no rashes or lesions noted and no wounds MDM MDM MDM Narrative Medical decision making narrative: Differential diagnosis cardiac versus noncardiac chest pain. Noncardiac would be reflux, hiatal hernia, peptic ulcer disease, pulmonary. History and physical not consistent with pulmonary embolus or aortic dissection. In light of her history of cardiac disease will obtain EKG troponins. CBC to assess H&H. BMP to assess BUN and creatinine. Her symptoms are consistent with pericarditis either. Lab Data Attestation: I reviewed the patient's lab results. Lab results narrative: CBC reveals mild anemia with an H&H of 9.1 and 28.5. Basic metabolic panel reveals a BUN and creatinine of 27 and 7.43. CO2 is normal. Glucose was slightly low at 115. First troponin is elevated 63. This is probably due to the fact that she has no kidneys. 2 hours pending. Labs: Laboratory Results - last 24 hr 03/28/25 03/28/25 17:30 19:32 WBC 4.8 RBC 3.11 L Hgb 9.1 L Hct 28.5 L MCV 91.6 MCH 29.3 MCHC 31.9 L RDW Std Deviation 52.5 H RDW Coeff of Tana 16.6 H Plt Count 266 MPV 9.4 Immature Gran % (Auto) 0.200 Neut % (Auto) 66.8 Lymph % (Auto) 16.3 L [place] % (Auto) 7.6 Eos % (Auto) 8.7 H Baso % (Auto) 0.4 Absolute Neuts (auto) 3.2 Absolute Lymphs (auto) 0.79 L Nucleated RBC % 0.6 Sodium 140 Potassium 4.0 Chloride 96 L Carbon Dioxide 28.8 Anion Gap 16 H BUN 27 H Creatinine 7.43 H* Est GFR (MDRD) Non-Af 6 L BUN/Creatinine Ratio 3.6 L Glucose 115 H Calcium 8.7 Troponin T High Sens 63 H* Troponin T Hi Sens 2 Hr 64 H* . 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 Suspect patient's troponin is elevated due to the fact she has had bilateral nephrectomy. Will discharge to home. Of note her blood pressure is elevated. Her blood pressure has been labile. She states is either very low or very high. 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 Since there is no evidence of endorgan dysfunction, aortic dissection, CT she will be discharged to home to have this treated as an outpatient Radiography Diagnostic Testing: Clinical Impression(s) from Imaging Studies Chest X-Ray 03/28/25 17:30 IMPRESSION: Mild cardiomegaly. Small bibasilar pleural effusions/atelectasis. Reading Location: [facility] Discharge Plan Triage Chief Complaint: Chest Pain Other Complaint: Hypertension ED Provider: Yaniv Aguero Dx/Rx/DC Orders Clinical Impression: Chest pressure, Accelerated essential hypertension, Atherosclerosis of coronary artery of [place] heart without angina pectoris, ESRD (end stage renal disease) on dialysis, Hyperlipidemia Instructions: ED Chest Pain, Uncertain Cause, ED High Blood Pressure Hypertension Prescriptions: No Action cholecalciferol (vitamin D3) 1,000 unit tablet 1,000 unit PO QDAY sevelamer carbonate 800 mg tablet 800 mg PO TID 30 Days Qty: 90 Patient Comments: 4 tabs tid calcium carbonate [Tums] 200 mg calcium (500 mg) tablet,chewable 400 mg PO BID ipratropium bromide 21 mcg (0.03 %) spray,non-aerosol 2 spray intranasal BID Rx Instructions: administer into each nostril midodrine 10 mg tablet 10 mg PO DAILY levothyroxine 25 mcg tablet 25 mcg PO QDAY warfarin 3 mg tablet 3 mg PO 3XW warfarin 2 mg tablet 2 mg PO QDAY warfarin 5 mg tablet 5 mg PO QDAY Rx Instructions: Managed by PCP Rani-Yahir 0.8 mg tablet 1 tab PO QDAY zolpidem 10 mg tablet 10 mg PO QHS PRN (Reason: insomnia) atorvastatin 10 mg tablet 10 mg PO DAILY Qty: 30 12RF sertraline 50 MG tablet 50 mg PO QHS nitroglycerin 0.4 mg tablet, sublingual 0.4 mg SUBLINGUAL Q5M PRN (Reason: Chest Pain) Qty: 25 2RF digoxin 125 mcg (0.125 mg) tablet 125 mcg PO QODAY Qty: 30 11RF Primary Care Provider: Tai Vieyra Referrals: Tai Vieyra MD [Primary Care Provider, Family Practice] - 3-5 Days Print Language: Yi Disposition Disposition: Home, Self Care
[2025-03-28 20:44] LABS: Troponin T High Sens 2 HR 64 ng/L (<=14)
[2025-03-28 22:15] LABS: Troponin T High Sens 4 HR 65 ng/L (<=14)
== END 2025-03-28 22:02 | disposition home or self-care (01) ==
PROVIDERS: Emergency Provider Emergency Medicine; PCP Family Medicine; Visit Provider Emergency Medicine
DX: R07.9 Chest pain, unspecified (principal); I12.0 Hypertensive chronic kidney disease with stage 5 chronic kidney disease or end stage renal disease; N18.6 End stage renal disease; I48.0 Paroxysmal atrial fibrillation; Z99.2 Dependence on renal dialysis; Z90.5 Acquired absence of kidney; E78.5 Hyperlipidemia, unspecified; I25.10 Atherosclerotic heart disease of native coronary artery without angina pectoris; Z95.5 Presence of coronary angioplasty implant and graft; Z79.899 Other long term (current) drug therapy; Z79.01 Long term (current) use of anticoagulants; Z95.810 Presence of automatic (implantable) cardiac defibrillator
CPT/HCPCS: 99285; 71046; 80048; 84484; 85025; 93005; A4216

== ENCOUNTER 2025-03-29 15:13 | Inpatient (IN) | payer MEDICARE, MEDICAID, SELFPAY ==
[2025-03-29] VITALS (9 sets, daily range): BP systolic 147–197; BP diastolic 54–66; PULSE 61–74; RESP 16–22; TEMP 36.6–36.9; O2SAT 93–96; BMI 33.5; BMI 32.3
[2025-03-29 16:24] LABS: Hematocrit 27.0 % (37-47); Hemoglobin 8.8 g/dL (12.0-15.0); Immature Granulocytes Count 0.010 X10^3/uL (0.0-0.0); Mean Corp Hgb Conc 32.6 g/dL (32-36); Mean Corpuscular Volume 91.2 fL (81-99); Mean Platelet Vol. 9.2 fl (6.2-12.0); NRBC Flagged by Analyzer 0 % (0-5); Platelet Count 220 K/mm3 (150-450); RBC Distribution Width CV 16.9 % (11.6-14.6); RBC Distribution Width SD 52.8 fl (35.1-43.9); Red Blood Count 2.96 M/mm3 (4.2-5.4); White Blood Count 4.2 K/mm3 (4.4-11.0)
--- NOTE | 2025-03-29 16:33 | RAD_ITS ---
EXAM: XR Chest, 1 View CLINICAL INDICATION: CHEST PAIN TECHNIQUE: Frontal view of the chest. COMPARISON: XR Chest dated 03/28/2025 FINDINGS: LUNGS AND PLEURAL SPACES: Bibasilar atelectasis or pneumonia. Bilateral pleural effusions. HEART: Cardiomegaly with mild congestion. MEDIASTINUM: Unremarkable. Normal mediastinal contour. BONES/JOINTS: Unremarkable. No acute fracture. SOFT TISSUES: Left axillary stents. TUBES, LINES AND DEVICES: Left-sided cardiac pacemaker. RAD/Chest PA and Lateral IMPRESSION: 1. Bibasilar atelectasis or pneumonia. 2. Cardiomegaly with mild congestion. 3. No significant change from the prior exam. 4. Bilateral pleural effusions. Reading Location: [id number]
[2025-03-29 17:12] LABS: Anion Gap 14 (5-15); BUN 19 mg/dL (4-19); BUN/Creat Ratio 3.4 RATIO (10-20); Calcium,Total 7.9 mg/dL (7.6-11.0); Carbon Dioxide 30.5 mmol/L (21.0-32.0); Chloride 94 mmol/L (98-108); Estimated Creatinine Clearance 10.56 ml/min (50-250); Glucose 101 mg/dL (70-99); Potassium 3.7 mmol/L (3.3-5.1); Troponin T High Sensitivity 62 ng/L (<=14)
[2025-03-29 17:18] LABS: Prothrombin Time (Protime)PT. 24.1 SECONDS (11.7-14.9)
--- NOTE | 2025-03-29 18:09 | ED.RN ---
Pt had approximately 10 beats of vtach on monitor. This RN tried to admitt Pt into monitor in order to print strip. When Pt entered into monitor the strip would no longer pull up. Dr Wen notified.
[2025-03-29 18:11] LABS: Magnesium 2.0 mg/dL (1.5-2.2)
--- NOTE | 2025-03-29 18:14 | ED.VIS.CHEST ---
HPI History of Present Illness Chief Complaint: Chest Pain Informant: patient Narrative Narrative: Patient is a 59 year old female with history of end-stage renal disease secondary to bilateral nephrectomy for polycystic kidney disease on hemodialysis ( M,W,F), coronary artery disease, history of torsades de point and ICD placement in 2019 as well as atrial fibrillation and history of DVT (on Coumadin). She is presenting today with recurrent episode of chest pain. Patient states that over the past few weeks has not been feeling right and they have been trying to manage her blood pressure. She has had blood pressures over 200. She is recently started on telmisartan, digoxin and carvedilol. She was seen in the ER yesterday for chest pressure as well and ultimately discharged home. She notes while at dialysis today her blood pressure was elevated and she started having chest pain. She was given nitroglycerin as well as clonidine 0.1 mg. She had dialysis for 2 hours and 10 minutes no sent to the ER for further evaluation. She states she has also been having ongoing cough. She states she feels short of breath and has to cough to clear it. She notes that she is actually under her dry weight. She denies any fever or chills. The pressure is on the left side of her chest. While in the ER patient did also have an episode of a burning chest pain that felt different than her other chest pains. Nursing states this correlated for about a 10 beat run of V. tach. [facility] Medical History Polycystic kidney disease Sudden cardiac Hypertriglyceridemia Hyperlipidemia History of torsades de pointes Atherosclerosis of coronary artery of [place] heart without angina pectoris Syncope and collapse Ventricular fibrillation Ischemic cardiomyopathy ESRD (end stage renal disease) on dialysis Nonsustained ventricular tachycardia History of recurrent miscarriages, not currently History of DVT (deep vein thrombosis) Congenital polycystic kidney disease History of allergic rhinitis Obesity Benign essential hypertension Home Medications ?Medication ?Instructions ?Recorded ?Last Taken ?Type sertraline 50 mg tablet 75 mg PO QHS depression 01/19/17 03/15/23 History cholecalciferol (vitamin D3) 25 1,000 unit PO QDAY 10/24/17 03/15/23 History mcg (1,000 unit) tablet sevelamer carbonate 800 mg tablet 4,000 mg PO TID 30 days #90 tabs 06/11/21 03/15/23 History calcium carbonate (Tums) 400 mg PO BID 03/30/22 03/15/23 History nitroglycerin 0.4 mg sublingual 0.4 mg sublingual Q5M PRN Chest 10/14/22 03/15/23 Rx tablet Pain #25 tabs ipratropium bromide 21 mcg (0.03 2 spray intranasal DAILY 05/10/23 Unknown History %) nasal spray atorvastatin 10 mg tablet 10 mg PO DAILY #30 tabs 10/11/24 Unknown Rx levothyroxine 25 mcg tablet 25 mcg PO QDAY 10/11/24 Unknown History vitamin B complex-vitamin C-folic 1 tab PO QDAY 10/11/24 Unknown History acid 0.8 mg tablet (Rani-Yahir) warfarin 2 mg tablet 9 mg PO SUTUTHSA 10/11/24 Unknown History warfarin 3 mg tablet 8 mg PO MOWEFR 10/11/24 Unknown History zolpidem 10 mg tablet 10 mg PO QHS PRN insomnia 10/11/24 Unknown History digoxin 125 mcg (0.125 mg) tablet 125 mcg PO QODAY #30 tabs 01/09/25 Unknown Rx carvedilol 6.25 mg tablet 6.25 mg PO BID blood pressure 03/29/25 Unknown History telmisartan 40 mg tablet 40 mg PO BID blood pressure 03/29/25 Unknown History Allergy/AdvReac Type Severity Reaction Status Date / Time amoxicillin Allergy Rash Verified 03/29/25 15:14 doxercalciferol (From Allergy Hives Verified 03/29/25 15:14 Hectorol) etodolac Allergy Rash Verified 03/29/25 15:14 Penicillins (PCN) Allergy Rash Verified 03/29/25 15:14 sulfamethoxazole (From Allergy Rash Verified 03/29/25 15:14 Bactrim) tramadol Allergy Rash Verified 03/29/25 15:14 trimethoprim (From Bactrim) Allergy Rash Verified 03/29/25 15:14 strawberry AdvReac Vomiting Verified 03/29/25 15:14 Family History Father Hypertension Kidney disease Mother Diabetes Family History no significant family his Surgical History Hx of kidney removal History of implantable cardiac defibrillator (ICD) (11/22/19) History of coronary artery stent placement (04/22/16) fistulogram History of thyroid surgery Surgical History no surgical history Social History household members: none Smoking Status: Never smoker alcohol intake: never substance use type: does not use diet: other caffeine: No what type of physical activity do you participate in: none seatbelt use: always do you feel safe at home: Yes ROS ROS ED Constitutional Constitutional ED: Reports other Details: Fatigue, increased sleeping ; Denies fever(s) ENT ENT ED: Denies rhinorrhea Cardiovascular Cardiovascular: Reports chest pain Respiratory/Chest Respiratory/Chest: Reports cough and dyspnea Gastrointestinal Gastrointestinal: Denies nausea or vomiting Musculoskeletal Musculoskeletal: Denies arthralgias or myalgias Integumentary Denies rash Neurologic Neurologic: Reports weakness Hematologic/Lymphatic Hematologic/Lymphatic: Reports easy bleeding, easy bruising and other Details: On Coumadin EXAM Physical Exam Const Vital Signs: 03/29/25 15:14 03/29/25 16:13 03/29/25 17:00 Temperature 98 F Temperature Source Oral Pulse Rate 64 61 65 Respiratory Rate 16 16 Blood Pressure 174/61 H 172/61 H 196/66 H Blood Pressure Mean 98 98 109 Pulse Ox 94 93 94 Oxygen Delivery Method Room Air Room Air Room Air 03/29/25 18:00 03/29/25 19:00 03/29/25 19:29 Temperature 98.4 F Temperature Source Pulse Rate 65 65 65 Respiratory Rate 20 H 20 H 20 H Blood Pressure 181/58 H 193/62 H 197/65 H Blood Pressure Mean 99 105 109 Pulse Ox 95 96 95 Oxygen Delivery Method Room Air Room Air Positive well nourished and well developed General Appearance ED: well developed and NAD; Negative for pallor HEENT Reports moist mucous membranes Neck supple and no JVD Chest Wall inspection of chest normal Resp normal respiratory effort Resp Narrative: Mildly diminished breath sounds at the bases Cardio regular rate, regular rhythm and no murmurs Cardio Narrative: AV fistula in the left upper extremity with palpable thrill GI normal to inspection, nondistended, normoactive bowel sounds and soft to palpation Extremity normal to inspection General Extremety ED: Negative for edema General Extremity: Negative for edema Neuro oriented x3 Sensorium / Orientation: awake Motor Exam: general weakness Psych mental status grossly normal Skin no rashes or lesions noted and no wounds General Skin Exam: Negative for pallor Heart Score History: Moderately Suspicious ECG: Nonspecific Repolarization Age: >45 - <65 years Risk Factors: >/= 3 Risk Factors or History of CAD Troponin: >1 - <3 Normal Limit Score: 6 MDM MDM MDM Narrative Medical decision making narrative: Patient evaluated for recurrent chest pressure while at dialysis today. Not been feeling well recently. 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 Differential includes not limited to hypertensive emergency, ACS, arrhythmia, symptomatic anemia, pneumonia, pneumothorax, pleural effusion, electrolyte derangements. While in the ER patient is also have a run of V. tach however she does have an ICD and it does not fire. Unfortunately it was witnessed by nurse staff on telemetry but not captured for the records. Patient's CBC shows anemia with a hemoglobin 8.8 which is consistent with her baseline. She has a mild leukopenia at a white blood cell count of 4.2 which is nonspecific. BMP consistent with end-stage renal disease with elevated creatinine however she otherwise does not have a significant Jennifer abnormalities. INR is therapeutic at 2.1. Low suspicion for PE as a cause of her symptoms. High since he troponin is elevated at 62 and 63 however this appears to be her baseline and consistent with where she was yesterday. Chest x-ray viewed by myself as well as radiology shows bibasilar atelectasis or pneumonia and cardiomegaly with mild congestion. CT of the chest is added on for further evaluation and to see if there is truly an underlying pneumonia versus this is more cardiac in nature. CT of the chest shows cardiomegaly with small pericardial effusion but no signs of pneumonia. Will hold off on any antibiotic treatment at this time so she has not been having any fevers. Patient was given hydralazine for hypertension in the emergency room. Given her recurrent chest pain, cardiac risk factors and elevated blood pressure in emergency room will admit for further cardiac workup to try to determine the cause for her pain and also obtain better blood pressure control. Patient agreeable with this. Case discussed with hospitalist, Dr. Valencia for admission. Lab Data Attestation: I reviewed the patient's lab results. Labs: Laboratory Results - last 24 hr 03/29/25 03/29/25 03/29/25 16:03 16:20 18:13 WBC 4.2 L RBC 2.96 L Hgb 8.8 L Hct 27.0 L MCV 91.2 MCH 29.7 MCHC 32.6 RDW Std Deviation 52.8 H RDW Coeff of Tana 16.9 H Plt Count 220 MPV 9.2 Immature Gran % (Auto) 0.200 Neut % (Auto) 67.8 Lymph % (Auto) 15.8 L [place] % (Auto) 8.0 Eos % (Auto) 7.5 H Baso % (Auto) 0.7 Absolute Neuts (auto) 2.9 Absolute Lymphs (auto) 0.67 L Nucleated RBC % 0 ESR 6 PT 24.1 H INR 2.1 Sodium 139 Potassium 3.7 Chloride 94 L Carbon Dioxide 30.5 Anion Gap 14 BUN 19 Creatinine 5.66 H Estim Creat Clear Calc 10.56 L Est GFR (MDRD) Non-Af 8 L BUN/Creatinine Ratio 3.4 L Glucose 101 H Calcium 7.9 Magnesium 2.0 Troponin T High Sens 62 H* Troponin T Hi Sens 2 Hr 63 H* C-React Prot Ext Range < 3.00 Radiography Diagnostic Testing: Clinical Impression(s) from Imaging Studies Chest X-Ray 03/29/25 16:33 IMPRESSION: 1. Bibasilar atelectasis or pneumonia. 2. Cardiomegaly with mild congestion. 3. No significant change from the prior exam. 4. Bilateral pleural effusions. Reading Location: [facility] Chest CT 03/29/25 18:15 IMPRESSION: 1. Cardiomegaly with small pericardial effusion. 2. Scattered mediastinal lymph nodes some of which are upper limits of normal in size and are most likely reactive lymph nodes. Reading Location: [facility] Rhythm Strip Rhythm Strip: Sinus Rhythm Rate: 62 Ectopy: None EKG Initial EKG: Attestation: I personally reviewed and interpreted this EKG as follows: Interpretation: Sinus Rhythm Comments: Normal sinus rhythm rate of 62 bpm Normal axis Nonspecific ST segment changes Mildly prolonged QTc No significant change prior to prior EKG Management Discussion w/another healthcare provider: Hospitalist Discharge Plan Dx/Rx/DC Orders Clinical Impression: Accelerated essential hypertension, Chest pressure, History of implantable cardiac defibrillator (ICD), ESRD (end stage renal disease) on dialysis Disposition Disposition: Acute Care Hospital [facility] Discharge Date/Time: 03/29/25 20:34
--- NOTE | 2025-03-29 18:15 | CT_ITS ---
EXAM: CT Chest Without Intravenous Contrast CLINICAL INDICATION: CHEST PAIN, ABNORMAL CXR TECHNIQUE: Axial computed tomography images of the chest without intravenous contrast. This CT exam was performed using one or more of the following dose reduction techniques: automated exposure control, adjustment of the mA and/or kV according to patient size, and/or use of iterative reconstruction technique. COMPARISON: CTA chest 03/15/2022 FINDINGS: LUNGS AND PLEURAL SPACES: Bilateral pleural effusion with compressive atelectasis. Superimposed pneumonia can not be excluded. Lung emphysema. No mass. HEART: Cardiomegaly with small pericardial effusion. Calcified coronary arterial disease. MEDIASTINUM: Scattered mediastinal lymph nodes some of which are upper limits of normal in size and are most likely reactive lymph nodes. BONES/JOINTS: Unremarkable. No acute fracture. SOFT TISSUES: Unremarkable. VASCULATURE: See above. LYMPH NODES: See above. CT/Chest without Contrast IMPRESSION: 1. Cardiomegaly with small pericardial effusion. 2. Scattered mediastinal lymph nodes some of which are upper limits of normal in size and are most likely reactive lymph nodes. Reading Location: [id number]
[2025-03-29 19:48] LABS: Troponin T High Sens 2 HR 63 ng/L (<=14)
--- NOTE | 2025-03-29 19:48 | PCM.HP.STD ---
HPI - General General Date of Admission: 03/29/25 Date of Service: 03/29/25 Chief Complaint: Chest pain, Dyspnea, elevated BP. HPI Narrative The patient is a 59 y/o F w/ PMHx: Polycystic kidney disease status post bilateral nephrectomies ESRD on HD M/W/F, Chronic normocytic anemia/AOCD, Orthostatic hypotension, CAD, PAF, history torsades/VT, Hypothyroidism, Obesity, HTN, HLD, Anxiety and Depression, recent ED evaluation 03/28/2025 secondary to chest pressure occurring during dialysis and intermittently in the last several weeks lasting approximately an hour in the substernal region described as mild to moderate usually occurring dialysis with associated nausea as well as dyspnea but no emesis nor any diaphoresis with no radiation of the chest discomfort with the ED evaluation at that time with indeterminate cardiac enzymes felt stable likely secondary to underlying renal disease status post bilateral nephrectomy with blood pressure labile with plan for discharge to home with follow-up with nephrology and cardiology as they are working on a regimen to improve her blood pressure control with also unremarkable chest x-ray and EKG with no acute evidence of ischemia now presenting again to the [facility] ED on 03/29/2025 with ongoing dyspnea in addition to a nonproductive cough reporting that she is actually at her dry weight with persistent pressure now on the left side of her chest with also an episode of burning sensation in the ED with at that time incidentally noted 10 beat run of V. tach with elevated persistent blood pressures despite recently initiated regimen of telmisartan, digoxin and Coreg prompting repeat ED evaluation. Workup in the ED included T98, heart rate 64, BP 174/61, respiratory rate 16, 94% on room air with most recent repeat vitals T98.4, heart rate 65, BP 197/65, respiratory rate 20, 95% room air, CBC with WBC 4.2, hemoglobin 8.8, MCV 91.2, platelet 220 with lymphopenia, coags with INR 2.1, BMP with chloride 94, BUN/creatinine 19/5.66, GFR 8, glucose 101, magnesium 2.0, troponin initial 62 with repeat delta 2-hour pending, chest x-ray with basilar atelectasis, cardiomegaly with mild congestion, bilateral pleural effusions with no significant change since prior evaluation, CT chest with cardiomegaly with small pericardial effusion, scattered mediastinal lymph nodes likely reactive, EKG with SR with mildly prolonged QTC, T wave morphology change of unclear significance with no acute evidence of ischemia similar to prior. In the ED patient ministered hydralazine 10 mg IV x 1. PFSH Medical History Polycystic kidney disease Sudden cardiac Hypertriglyceridemia Hyperlipidemia History of torsades de pointes Atherosclerosis of coronary artery of zuni heart without angina pectoris Syncope and collapse Ventricular fibrillation Ischemic cardiomyopathy ESRD (end stage renal disease) on dialysis Nonsustained ventricular tachycardia History of recurrent miscarriages, not currently History of DVT (deep vein thrombosis) Congenital polycystic kidney disease History of allergic rhinitis Obesity Benign essential hypertension Home Medications ?Medication ?Instructions ?Recorded ?Last Taken ?Type sertraline 50 mg tablet 75 mg PO QHS depression 01/19/17 03/15/23 History cholecalciferol (vitamin D3) 25 1,000 unit PO QDAY 10/24/17 03/15/23 History mcg (1,000 unit) tablet sevelamer carbonate 800 mg tablet 4,000 mg PO TID 30 days #90 tabs 06/11/21 03/15/23 History calcium carbonate (Tums) 400 mg PO BID 03/30/22 03/15/23 History nitroglycerin 0.4 mg sublingual 0.4 mg sublingual Q5M PRN Chest 10/14/22 03/15/23 Rx tablet Pain #25 tabs ipratropium bromide 21 mcg (0.03 2 spray intranasal DAILY 05/10/23 Unknown History %) nasal spray atorvastatin 10 mg tablet 10 mg PO DAILY #30 tabs 10/11/24 Unknown Rx levothyroxine 25 mcg tablet 25 mcg PO QDAY 10/11/24 Unknown History vitamin B complex-vitamin C-folic 1 tab PO QDAY 10/11/24 Unknown History acid 0.8 mg tablet (Rani-Yahri) warfarin 2 mg tablet 9 mg PO SUTUTHSA 10/11/24 Unknown History warfarin 3 mg tablet 8 mg PO MOWEFR 10/11/24 Unknown History zolpidem 10 mg tablet 10 mg PO QHS PRN insomnia 10/11/24 Unknown History digoxin 125 mcg (0.125 mg) tablet 125 mcg PO QODAY #30 tabs 01/09/25 Unknown Rx carvedilol 6.25 mg tablet 6.25 mg PO BID blood pressure 03/29/25 Unknown History telmisartan 40 mg tablet 40 mg PO BID blood pressure 03/29/25 Unknown History Allergy/AdvReac Type Severity Reaction Status Date / Time amoxicillin Allergy Rash Verified 03/29/25 15:14 doxercalciferol (From Allergy Hives Verified 03/29/25 15:14 Hectorol) etodolac Allergy Rash Verified 03/29/25 15:14 Penicillins (PCN) Allergy Rash Verified 03/29/25 15:14 sulfamethoxazole (From Allergy Rash Verified 03/29/25 15:14 Bactrim) tramadol Allergy Rash Verified 03/29/25 15:14 trimethoprim (From Bactrim) Allergy Rash Verified 03/29/25 15:14 strawberry AdvReac Vomiting Verified 03/29/25 15:14 Family History Father Hypertension Kidney disease Mother Diabetes Family History no significant family his Surgical History Hx of kidney removal History of implantable cardiac defibrillator (ICD) (11/22/19) History of coronary artery stent placement (04/22/16) fistulogram History of thyroid surgery Surgical History no surgical history Social History household members: none Smoking Status: Never smoker alcohol intake: never substance use type: does not use diet: other caffeine: No what type of physical activity do you participate in: none seatbelt use: always do you feel safe at home: Yes ROS ROS Narrative Admission Review of Systems: CONSTITUTIONAL: No weight loss, fever, chills, + weakness or fatigue. HEENT: Eyes: No visual loss, blurred vision, double vision or yellow sclerae. Ears, Nose, Throat: No hearing loss, sneezing, congestion, runny nose or sore throat. SKIN: No rash or itching, lesions, wounds. CARDIOVASCULAR: + Chest pain/burning sensation. No specific palpitations, edema, orthopnea, syncopal events. RESPIRATORY: + Dyspnea with nonproductive cough. No wheezing, hemoptysis. GASTROINTESTINAL: No anorexia, nausea, vomiting or diarrhea, abdominal pain, melena, BRBPR. GENITOURINARY: No dysuria, frequency, urgency or retention. NEUROLOGICAL: No headache, dizziness, syncope, paralysis, ataxia, numbness or tingling in the extremities, focal weakness, change in bowel or bladder control, seizure. MUSCULOSKELETAL: No muscle, back pain, joint pain or stiffness. HEMATOLOGIC: + Chronic anemia, easy bleeding/bruising. LYMPHATICS: No enlarged nodes. No history of splenectomy. PSYCHIATRIC: + History of anxiety and depression. ENDOCRINOLOGIC: No reports of sweating, cold or heat intolerance. No polyuria or polydipsia. ALLERGIES: + History of hives, allergic rhinitis. Vital Signs Vital Signs Vital Signs: 03/29/25 15:14 03/29/25 16:13 03/29/25 17:00 Temperature 98 F Temperature Source Oral Pulse Rate 64 61 65 Respiratory Rate 16 16 Blood Pressure 174/61 H 172/61 H 196/66 H Blood Pressure Mean 98 98 109 Pulse Ox 94 93 94 Oxygen Delivery Method Room Air Room Air Room Air 03/29/25 18:00 03/29/25 19:00 03/29/25 19:29 Temperature 98.4 F Temperature Source Pulse Rate 65 65 65 Respiratory Rate 20 H 20 H 20 H Blood Pressure 181/58 H 193/62 H 197/65 H Blood Pressure Mean 99 105 109 Pulse Ox 95 96 95 Oxygen Delivery Method Room Air Room Air Weight Weight: 182 lb 15.739 oz Body Mass Index (BMI) 33.5 Physical Exam Narrative Physical Examination: General: Awake, alert, oriented x 3 and cooperative, seated upright in the bed, notes currently mild generalized headache there is no current chest pain. Skin: Normal color, normal turgor, no icterus, no cyanosis except occasional stage ecchymoses, abrasions. HEENT: AT/NC, EOMI, PERRLA, mildly dry MM, no carotid bruits or JVD noted. Lungs: Mildly diminished, greater bases, poor effort, no rales, ronchi or wheezing, no pain elicited with palpation of the anterior chest. Heart: Regular rate and rhythm; no gallop, rub audible. Abdomen: Soft, obese, NTTP, ND, mildly hyperactive BS, no appreciated HSM. Extremities: No cyanosis, no clubbing, mild ankle not markedly pitting edema. Neurological: Patient awake, alert, oriented as noted, cognitive function intact; pupils equally reactive to light and accommodation, cranial nerves grossly normal, moving all 4 extremities, no focal deficits, strength mildly to moderately globally decreased. Psychiatric: Affect appears fatigued, no acute evidence of depressive or anxiety feelings, does have a history of insomnia. Results Lab / Micro Data 03/29/25 16:20 03/29/25 16:20 Labs: Laboratory Results - last 24 hr 03/29/25 16:03: Magnesium 2.0 03/29/25 16:20: WBC 4.2 L, RBC 2.96 L, Hgb 8.8 L, Hct 27.0 L, MCV 91.2, MCH 29.7, MCHC 32.6, RDW Std Deviation 52.8 H, RDW Coeff of Tana 16.9 H, Plt Count 220, MPV 9.2, Immature Gran % (Auto) 0.200, Neut % (Auto) 67.8, Lymph % (Auto) 15.8 L, [place] % (Auto) 8.0, Eos % (Auto) 7.5 H, Baso % (Auto) 0.7, Absolute Neuts (auto) 2.9, Absolute Lymphs (auto) 0.67 L, Nucleated RBC % 0, PT 24.1 H, INR 2.1, Sodium 139, Potassium 3.7, Chloride 94 L, Carbon Dioxide 30.5, Anion Gap 14, BUN 19, Creatinine 5.66 H, Estim Creat Clear Calc 10.56 L, Est GFR (MDRD) Non-Af 8 L, BUN/Creatinine Ratio 3.4 L, Glucose 101 H, Calcium 7.9, Troponin T High Sens 62 H* Imaging Radiology Impression Chest X-Ray 03/29/25 16:33 IMPRESSION: 1. Bibasilar atelectasis or pneumonia. 2. Cardiomegaly with mild congestion. 3. No significant change from the prior exam. 4. Bilateral pleural effusions. Reading Location: [facility] Chest CT 03/29/25 18:15 IMPRESSION: 1. Cardiomegaly with small pericardial effusion. 2. Scattered mediastinal lymph nodes some of which are upper limits of normal in size and are most likely reactive lymph nodes. Reading Location: [id number] Assessment & Plan Assessment/Plan (1) Chest pressure: PLAN: Plan The patient is a 59 y/o F w/ PMHx: Polycystic kidney disease status post bilateral nephrectomies ESRD on HD M/W/F, Chronic normocytic anemia/AOCD, Orthostatic hypotension, CAD, PAF, history torsades/VT, Hypothyroidism, Obesity, HTN, HLD, Anxiety and Depression, recent ED evaluation 03/28/2025 secondary to chest pressure occurring during dialysis and intermittently in the last several weeks lasting approximately an hour in the substernal region described as mild to moderate usually occurring dialysis with associated nausea as well as dyspnea but no emesis nor any diaphoresis with no radiation of the chest discomfort with the ED evaluation at that time with indeterminate cardiac enzymes felt stable likely secondary to underlying renal disease status post bilateral nephrectomy with blood pressure labile with plan for discharge to home with follow-up with nephrology and cardiology as they are working on a regimen to improve her blood pressure control with also unremarkable chest x-ray and EKG with no acute evidence of ischemia now presenting again to the [facility] ED on 03/29/2025 with ongoing dyspnea in addition to a nonproductive cough reporting that she is actually at her dry weight with persistent pressure now on the left side of her chest with also an episode of burning sensation in the ED with at that time incidentally noted 10 beat run of V. tach with elevated persistent blood pressures despite recently initiated regimen of telmisartan, digoxin and Coreg prompting repeat ED evaluation. #1. Concern Accelerated Hypertension/Urgency (suspect enzymes indeterminant secondary to her renal disease) with associated Chest Pain with incidentally noted small pericardial effusion: EKG with SR with mildly prolonged QTC, T wave morphology change of unclear significance with no acute evidence of ischemia similar to prior; however, patient did have burst of VT in the ED suspected to be symptomatic, CXR w/ with bibasilar atelectasis, cardiomegaly with mild congestion, bilateral pleural effusions, initial trop 62 with repeat delta pending. Will admit to PCU, place on a monitored bed to assure no acute myocardial infarction with serial cardiac enzymes and EKGs. Magnesium level per ED normal. Will monitor EKGs for QTc and adjust/alter/avoid medications as needed. Will obtain repeat echocardiogram given noted pericardial effusion to be cautious. ESR and CRP requested for trending purposes although would expect some elevation given underlying renal disease. If repeat serial cardiac enzymes remain similar will plan a.m. cardiac stress testing. ECHO requested given effusion noted. NG TD will be initiated, morphine. Interrogation attempted in the ED with noted AF with no firing. #2. Polycystic kidney disease status post bilateral nephrectomy with ESRD: Patient with ongoing dialysis Tuesday, Tuesday, Tuesday, encourage continued follow-up with nephrology given issues with blood pressure and low threshold to consult given they have been working with cardiology directly for an improved hypertensive regimen. Will continue patient home several [place] regimen. #3. Chronic normocytic anemia/AOCD: Admission hemoglobin 8.8, MCV 91.2, baseline hemoglobin ranges primarily 9-11, most recently previous 03/28/2025 hemoglobin 9.1, will continue to trend. #4. Orthostatic hypotension: Given patient recent increased blood pressures although labile especially dialysis will hold midodrine regimen at this time. #5. CAD: Status post previous PCI 2015, will continue Coumadin, statin, Coreg, telmisartan regimen with hold parameters as needed. #6. PAF: Will continue patient home digoxin and Coumadin regimen, not on any other rate or rhythm agent of note. #7. History of torsades, recent as noted symptomatic VT burst: Status post previous AICD placement 2019, Will continue digoxin, coreg regimen. Interrogation attempted in the ED with noted AF with no firing. #8. Hypothyroidism: Will continue patient levothyroxine regimen, TSH requested #9. Obesity: Weight loss and lifestyle changes encouraged. #10. Anxiety and depression: Will continue patient home sertraline regimen. #11. Hyperlipidemia: Will continue patient on statin therapy, FLP in AM. #12. DVT prophylaxis: Coumadin with INR trending. #13. CODE status: Patient NATALIIA is her daughter who is present and living will is currently in place. Discussed CODE status at length including difference between FULL code, DNR-CCA and DNR-CC status. Following discussions about the differences in these status, requested Full Code status. Advanced Care Planning Face to Face Time: 16 minutes. Charges/Coding Visit Charges Inpatient E&M: 64443 Init Hosp L3 Procedures Hospitalists Procedures: 03117 Advncd Care Plan 30 Min
--- NOTE | 2025-03-29 19:49 | ED.RN ---
Critical troponin of [address] Wen notified.
--- NOTE | 2025-03-29 19:57 | EKG12_ITS ---
Test Reason : Blood Pressure : */* mmHG Vent. Rate : 72 BPM Atrial Rate : 72 BPM P-R Int : 134 ms QRS Dur : 88 ms QT Int : 478 ms P-R-T Axes : -28 44 42 degrees QTcB Int : 523 ms Normal sinus rhythm Nonspecific ST and T wave abnormality Prolonged QT Abnormal ECG When compared with ECG of 31-Mar-2025 08:02, MANUAL COMPARISON REQUIRED DATA IS UNCONFIRMED Confirmed by CALEB DAVIS, LOULOU ([id number]), tape editor GALO OLGUIN ([id number]) on 04/01/2025 10:33:41 AM Referred By: Confirmed By: LOULOU ELLIS MD
--- OUTSIDE RECORDS SUMMARY | 2025-03-29 20:11 | XMS RPT_ITS | CCD ---
Author Organization [facility] CliniSyar Care Team Providers Care Entry Level Web Developer Name Role Phone Radha Blanton RN Unavailable Unavailable DeFinis, Harkathryn Y Unavailable Unavailable DeFinis, Harumi Y Unavailable Unavailable Mcshannic, Sandip Unavailable Unavailable Adalberto Vieyraic Unavailable Unavailable Vieyra, Trevor Unavailable Unavailable Mcshannic, Sandip Unavailable Unavailable Vieyra, Trevor Unavailable Unavailable Jarrell, Trevor Unavailable Unavailable KennyZunilda stephena Unavailable Unavailable Trevor Vieyra Unavailable Unavailable Jarrell, Trevor Unavailable Unavailable Zunilda Coxa Unavailable Unavailable Trevor Vieyra Unavailable Unavailable Trevor Vieyra Unavailable Unavailable Radha Blanton RN Unavailable Unavailable Trevor Vieyra Primary Care Provider Trevor Vieyra Primary Care Provider Trevor Vieyra Primary Care Provider [phone] Trevor Vieyra Primary Care Provider [phone] Trevor Vieyra Referring Provider Valarie RIGGINS, PA Maday Darby Attending Provider Trevor Vieyra MD Primary Care Provider Trevor Vieyra MD Primary Care Provider Dr. Trevor Vieyra Primary Care Provider Dr. Ernesto Garvin Attending Provider Trevor Vieyra MD Primary Care Provider Dr. Trevor Vieyra Referring Provider Valarie RIGGINS, PA Maday Darby Attending Provider Dr. Trevor Vieyra Primary Care Provider [phone] Ernesto Garvin Attending Provider Dr. Trevor Vieyra Referring Provider GILSON Whelan Attending Provider Dr. Trevor Vieyra Primary Care Provider Dr. Trevor Vieyra Referring Provider GILSON Whelan Attending Provider Dr. Trevor Vieyra Primary Care Provider [phone] Trevor Vieyra Referring Provider GILSON Whelan Attending Provider Jarrell DAVIS, Trevor Malone Primary Care Provider [phone] Trevor Vieyra Primary Care Provider [phone] CHRISTIANO HUNTLEY Attending Unavailable VIEYRA, TREVOR A Primary Care Unavailable CHRISTIANO HUNTLEY Referring Unavailable TREVOR VIEYRA A Primary Care Unavailable CHRISTIANO HUNTLEY Attending Unavailable JARRELL, TREVOR A Primary Care Unavailable Dr. Trevor Vieyra Primary Care Provider [phone] Trevor Vieyra Referring Provider [phone] GILSON Whelan Attending Provider Dr. Trevor Vieyra Other Provider Dr. Camille Heller Attending Provider Jarrell DAVIS, Trevor Malone Primary Care Provider [phone] CHRISTIANO HUNTLEY Referring Unavailable TREVOR VIEYRA A Primary Care Unavailable VIEYRA, TREVOR A Primary Care Unavailable CHRISTIANO HUNTLEY Referring Unavailable Dr. Trevor Vieyra MD Primary Care Provider Dr. Trevor Vieyra MD Attending Provider [phone] Trevor Vieyra MD Referring Provider [phone] Trevor Preston DO Attending Provider Dr. Trevor Preston DO Emergency Provider Kieran Hilton Attending Provider [phone] Marques Peace MD Emergency Provider Dr. Trevor Vieyra MD Primary Care Provider Jarrell DAVIS, Dr. Lujan Attending Provider [phone] Jarrell DAVIS, Dr. Lujan Referring Provider Marques Peace MD Attending Provider Jarrell DAVIS, Dr. Lujan Primary Care Provider Jarrell DAVIS, Dr. Lujan Attending Provider Jarrell DAVIS, Dr. Lujan Referring Provider Roof LEAD DATA ENTRY OPERATOR-C, Christiano H Attending Provider Roof LEAD DATA ENTRY OPERATOR-C, Christiano H Referring Provider Jarrell DAVIS, Dr. Lujan Primary Care Provider Jarrell DAVIS, Dr. Lujan Referring Provider Jarrell DAVIS, Dr. Lujan Attending Provider Jarrell DAVIS, Dr. Lujan Primary Care Provider Jarrell DAVIS, Dr. Lujan Attending Provider Jarrell DAVIS, Dr. Lujan Referring Provider Jarrell DAVIS, Dr. Lujan Primary Care Provider Jarrell DAVIS, Dr. Lujan Referring Provider Jarrell DAVIS, Dr. Lujan Attending Provider Jarrell DAVIS, Dr. Lujan Primary Care Provider Jarrell DAVIS, Dr. Lujan Attending Provider Jarrell DAVIS, Dr. Lujan Referring Provider Vieyra, Trevor Attending Unavailable Vieyra, Trevor Referring Unavailable Vieyra, Trevor Primary Care Unavailable Vieyra, Trevor Referring Unavailable Vieyra, Trevor Attending Unavailable Vieyra, Trevor Primary Care Unavailable Vieyra, Trevor Referring Unavailable Vieyra, Trevor Attending Unavailable Vieyra, Trevor Primary Care Unavailable Vieyra, Trevor Attending Unavailable Vieyra, Trevor Referring Unavailable Vieyra, Trevor Primary Care Unavailable Vieyra, Trevor Attending Unavailable Vieyra, Trevor Referring Unavailable Vieyra, Trevor Primary Care Unavailable Vieyra, Trevor Referring Unavailable Vieyra, Trevor Attending Unavailable Vieyra, Trevor Primary Care Unavailable Roof LEAD DATA ENTRY OPERATOR, Christiano H Referring Unavailable Roof LEAD DATA ENTRY OPERATOR, Christiano H Attending Unavailable Vieyra, Trevor Primary Care Unavailable Vieyra, Trevor Attending Unavailable Vieyra, Trevor Referring Unavailable Vieyra, Trevor Primary Care Unavailable Vieyra, Trevor Primary Care Unavailable Vieyra, Trevor Referring Unavailable Vieyra, Trevor Attending Unavailable Vieyra, Trevor Primary Care Unavailable Vieyra, Trevor Referring Unavailable Vieyra, Trevor Attending Unavailable Vieyra, Trevor Attending Unavailable Vieyra, Trevor Referring Unavailable Vieyra, Trevor Primary Care Unavailable Vieyra, Trevor Attending Unavailable Vieyra, Trevor Referring Unavailable Vieyra, Trevor Primary Care Unavailable Vieyra, Trevor Primary Care Unavailable Marques Peace Attending Unavailable Vieyra, Trevor Primary Care Unavailable Kary, Trevor Attending Unavailable Vieyra, Trevor Referring Unavailable Nay LEAD DATA ENTRY OPERATOR, Christiano Florez Attending Unavailable Vieyra, Trevor Primary Care Unavailable Vieyra, Trevor Referring Unavailable Vieyra, Trevor Primary Care Unavailable Memo RIGGINS, Kieran Darby Attending Unavailable Vieyra, Trevor Referring Unavailable Vieyra, Trevor Attending Unavailable Vieyra, Trevor Primary Care Unavailable Vieyra, Trevor Primary Care Unavailable Vieyra, Trevor Referring Unavailable Vieyra, Trevor Attending Unavailable Vieyra, Trevor Attending Unavailable Vieyra, Trevor Referring Unavailable Vieyra, Trevor Primary Care Unavailable VEIYRA, TREVOR Primary Care Unavailable VIEYRA, TREVOR Primary Care Unavailable VIEYRA, TREVOR Primary Care Unavailable VIEYRA, TREVOR Primary Care Unavailable GILBERTO VIEYRA Attending Unavailable VIEYRA, TREVOR Primary Care Unavailable Allergies Allergy Classification Reported Allergen(s) Allergy Type Date of Onset Reaction(s) Facility (20 sources) amoxicillin; Translations: [amoxicillin] Drug Allergy 05-03-20 16 Rash [facility] Work Phone: (4 sources) doxercalciferol Drug Allergy 05-03-20 16 Severe N/V [facility] Work Phone: (4 sources) etodolac Drug Allergy 05-03-20 16 Rash [facility] Work Phone: [phone] (4 sources) penicillin Drug Allergy 04-15-20 17 rash [facility] Work Phone: (4 sources) sevelamer Drug Allergy 05-03-20 16 Nausea [facility] Work Phone: [phone] (4 sources) strawberry; Translations: [STRAWBERRIES] food allergy 04-15-20 17 rash [facility] Work Phone: (4 sources) sulfamethoxazole / trimethoprim Drug Allergy 05-03-20 16 Nausea [facility] Work Phone: (20 sources) traMADol; Translations: [TRAMADOL] Drug Allergy 05-03-20 16 Rash, Intolerance [facility] Work Phone: (20 sources) Doxercalciferol Drug Allergy 11-04-19 16 Other (See Comments), Other: See Comments, Unknown [place], [place] (20 sources) Etodolac; Translations: [ETODOLAC] Drug Allergy 05-03-20 16 Other (See Comments), Rash [place], [place] (13 sources) Penicillins; Translations: [PENICILLINS] Propensity to adverse reactions to drug 11-05-19 16 Other (See Comments), Hives, Rash [place] (20 sources) Sulfamethoxazole / Trimethoprim; Translations: [SULFAMETHOXAZOLE-T RIMETHOPRIM] Drug Allergy 05-03-20 16 Rash, GI Upset [place], [place] (20 sources) strawberry allergenic extract Drug Allergy 04-15-20 17 Nausea And Vomiting, Vomiting, Rash [place] (20 sources) sevelamer; Translations: [SEVELAMER] Drug Allergy 05-03-20 16 GI Upset [facility] (20 sources) Sulfamethoxazole Drug Allergy 06-11-20 21 [facility] (20 sources) Trimethoprim Drug Allergy 10-01-19 21 [facility] (3 sources) Penicillins Drug Allergy 11-05-19 16 Hives, [facility] (20 sources) Penicillins Drug Allergy 11-05-19 16 Hives, [facility] (20 sources) Penicillins Allergy to substance 03-15-20 22 [facility] (3 sources) strawberry allergenic extract; Translations: [STRAWBERRY] Drug Allergy 04-15-20 17 [facility] (2 sources) Doxercalciferol Drug Allergy 11-04-19 16 [facility] (2 sources) Etodolac Allergy to substance 05-03-20 16 Rash [facility] (2 sources) Penicillins Drug Allergy 11-05-19 16 Hives, [facility] (2 sources) sevelamer Drug Allergy 05-03-20 16 [facility] (2 sources) [place] Allergy to substance 04-15-20 17 Nausea And Vomiting, Rash [facility] (2 sources) Sulfamethoxazole Allergy to substance 10-01-19 [facility] (1 source) Doxercalciferol Drug Allergy 10-12-19 [facility] (1 source) Etodolac Drug Allergy 10-12-19 [facility] (1 source) Penicillins Drug allergy (disorder) 10-12-19 [facility] (1 source) Sulfamethoxazole Drug Allergy 10-12-19 [facility] (1 source) Trimethoprim Drug Allergy 10-12-19 [facility] Medications Current Medications Medication Drug Class(es) Dates Sig (Normalized) Sig (Original) acetaminophen 325 mg oral tablet (1 source) Start: 11-22-2019 acetaminophen (TYLENOL) tablet 650 mg acetaminophen 325 mg / oxyCODONE hydrochloride 5 mg oral tablet (20 sources) Opioid Agonist Start: 03-03-2023 take 1 tablet by mouth every six hours as needed oxyCODONE-acetamino phen (Percocet) 5-325 MG tablet Take 1 tablet by mouth every 6 hours as needed. 03/03/2023 Active Start: 02-25-2022 End: 02-28-2022 take 1 tablet by mouth every four hours as needed for pain oxyCODONE-acetaminophen (PERCOCET) 5-325 mg tablet Indications: Polycystic kidney Take 1 tablet by mouth every 4 hours as needed for pain for up to 3 days. 5 tablet 0 02/25/2022 02/28/2022 Active Start: 11-22-2019 End: 11-29-2019 take 1 tablet by mouth every eight hours as needed for pain, then take 1 tablet by mouth as needed for pain oxyCODONE-acetaminophen (PERCOCET) 5-325 MG per tablet Indications: Acute pain Take 1 tablet by mouth every 8 hours as needed for Pain for up to 7 days. Intended supply: 7 days. Take lowest dose possible to manage pain 21 tablet 0 11/22/2019 11/29/2019 Active Start: 11-22-2019 oxyCODONE-acet aminophen (PERCOCET) 5-325 MG per tablet 1 tablet Start: 01-13-2018 End: 06-29-2018 Oxycodone-Acetaminophen 1 TA BLET tablet Discontinued 1 {tbl} PO EVERY 6 HOURS NEEDED as needed for Pain 12 3 0 January 13, 2018 12:00am June 29, 2018 1:54pm Pain of left hip Pain in left hip Start: 01-13-2018 End: 06-29-2018 take 1 tablet by mouth every six hours as needed Oxycodone-Acetaminophen Discontinued 1 TABLET PO EVERY 6 HOURS NEEDED 12 January 13, 2018 12:00am June 29, 2018 1:54pm Comment on above: Take 1 tablet by morgan th every 4 hours as needed for pain for up to 3 days. ascorbic acid / D-biotin / folic acid / niacinamide / pantothenate / pyridoxine / riboflavin / thiamine / vitamin B12 (5 sources) Vitamin B12, Vitamin C Start: 3 take 1 tablet by mouth once RANI-YAHIR 0.8 mg tab Take 1 tablet by mouth every afternoon. 0 11/28/2022 Active Comment on above: Take 1 tablet by morgan th every afternoon. atorvastatin 10 mg oral tablet (20 sources) HMG-CoA Reductase Inhibitor Start: 5 take 1 tablet by mouth once daily Atorvastatin 10 mg tablet Active 10 mg PO DAILY 30 October 11, 2024 12:00am Start: 08-24-2017 take 0.5 tablet by m outh once daily at bedtime atorvastatin (LIPITOR) 80 MG tablet Indications: Coronary artery disease involving [place] coronary artery of [place] heart, angina presence unspecified TAKE 1/2 TABLET BY MOUTH EVERY NIGHT AT BEDTIME 45 tablet 0 08/24/2017 Active Start: 01-19-2017 End: 02-20-2018 Atorvastatin 80 MG tablet Discontinued 40 mg PO AT BEDTIME January 19, 2017 12:00am February 20, 2018 8:38am cholesterol Start: 01-19-2017 End: 02-20-2018 take 40 mg by mouth at bedtime Atorvastatin Discontinu ed 40 MG PO AT BEDTIME January 19, 2017 12:00am February 20, 2018 8:38am Start: 06-08-2016 End: 10-11-2024 take 1 tablet by mouth at bedtime Atorvastatin 40 mg tablet Discontinued 40 mg PO AT BEDTIME 90 June 04, 2024 9:57am October 11, 2024 9:30am cholesterol Start: 06-08-2016 take 1 tablet by morgan th once daily in the evening ATORVASTATIN CALCIUM 80 MG TABS one tablet by mouth every evening ATORVASTATIN CALCIUM [id number] Hanane Barth RN Comment on above: TAKE 1 TABLET BY MORGAN TH EVERY DAY AT BEDTIME FOR CHOLESTEROL B Xiiirki-K-Dgfxz Acid (RANI-YAHIR PO) (2 sources) Start: 11-28-2022 take 1 tablet by mouth in the morning B Tuwzaoe-H-Jtqby Acid (RANI-YAHIR PO) Take 1 tablet by mouth in the morning. 11/28/2022 Active Start: 11-28-2022 take 1 tablet by morgan th in the morning B Nvvdhul-R-Wwkcg Acid (RANI-YAHIR PO) Take 1 tablet by mouth in the morning. 0 11/28/2022 Active B Complex-Vitamin C-Folic Acid (Nephro-Yahir) 0.8 mg tablet (20 sources) Start: 03-13-2019 take 1 tablet by mouth once daily B Complex-Vitamin C-Folic Acid (Nephro-Yahir) 0.8 mg tablet Active 1 TABLET PO DAILY March 13, 2019 10:15am Start: 03-13-2019 End: 10-11-2024 B Complex-Vitamin C-Folic Ac id (Nephro-Yahir) 0.8 mg tablet Discontinued 1 {tbl} PO DAILY March 13, 2019 12:00am October 11, 2024 9:29am Start: 03-13-2019 B Complex-Amna min C-Folic Acid (Nephro-Yahir) 0.8 mg tablet Active 1 {tbl} PO DAILY March 13, 2019 12:00am Start: 03-13-2019 take 1 tablet by morgan th once daily B Complex-Vitamin C-Folic Acid (Nephro-Yahir) 0.8 mg tablet Active 1 TABLET PO DAILY March 12, 2019 11:00pm Start: 03-13-2019 take 1 tablet by morgan th once daily B Complex-Vitamin C-Folic Acid (Nephro-Yahir) 0.8 mg tablet Active 1 TABLET PO DAILY March 13, 2019 12:00am B Complex-Vitamin C-Folic Acid (Rani-Yahir) 0.8 mg tablet (5 sources) Start: 10-11-2024 take 1 tablet by mouth once daily B Complex-Vitamin C-Folic Acid (Rani-Yahir) 0.8 mg tablet Active 1 {tbl} PO daily October 11, 2024 12:00am calcium carbonate 500 mg chewable tablet (20 sources) Start: 03-30-2022 take 1 tablet by mouth twice daily Calcium Carbonate (Tums) 200 mg calcium (500 mg) tablet,chewable Active 400 mg PO TWICE A DAY March 30, 2022 12:00am Start: 06-29-2018 End: 03-13-2019 take 1 tablet by mouth twice daily Calcium Carbonate 200 mg calcium (500 mg) tablet,chewable Discontinued 1000 mg PO TWICE A DAY June 29, 2018 1:54pm March 13, 2019 10:15am supplement Start: 05-17-2017 End: 06-29-2018 take 2 tablets by mouth three times daily at mealtime Calcium Carbonate 500 MG tablet Discontinued 1000 mg PO 3 TIMES DAILY WITH MEALS May 17, 2017 1:00am June 29, 2018 1:54pm supplement Start: 05-17-2017 End: 06-29-2018 take 1000 mg by mouth three times daily at mealtime Calcium Carbonate Discontinued 1000 MG PO 3 TIMES DAILY WITH MEALS May 17, 2017 1:00am June 29, 2018 1:54pm Start: 09-05-2014 End: 04-15-2017 take 2 tablets by mouth once daily CALCIUM CARBONATE ANTACID 500 MG CHEW Two tablets by mouth daily CALCIUM CARBONATE ANTACID [id number] Hanane Barth RN calcium carbonat e (Tums Ultra) 1000 MG chewable tablet Chew 1,000 mg in the morning. Active take 2 tablets by mo [facility] twice daily calcium carbonate (TUMS) 500 MG chewable tablet Take 2 tablets by mouth 2 times daily 0 Active Comment on above: Take 1,000 mg by morgan once daily. cholecalciferol 0.025 mg oral tablet (20 sources) Vitamin D Start: 10-25-19 take 1 tablet by mouth once daily Cholecalciferol (Vitamin D3) 1,000 unit tablet Active 1000 U PO daily October 24, 2017 12:00am cholecalciferol (Vitamin D-3) 50 MCG (2000 UT) capsule Take by mouth daily. Active Cholecalciferol, Vitamin D3, 50 mcg (2,000 unit) cap Take by mouth. 0 Active Comment on above: Take by mouth. Take by mouth once d aily. docusate sodium 100 mg oral capsule (13 sources) Start: 03-03-2023 End: 03-13-2023 take 1 capsule by mouth twice daily docusate sodium (COLACE) 100 mg capsule Take 1 capsule by mouth twice daily for 10 days. 20 capsule 0 03/03/2023 03/13/2023 Active Start: 02-25-2022 End: 02-28-2022 take 1 capsule by mouth twice daily docusate sodium (COLACE) 100 mg capsule Take 1 capsule by mouth twice daily for 3 days. 6 capsule 0 02/25/2022 02/28/2022 Active Start: 09-05-2014 End: 04-15-2017 take 1 tablet by mouth twice daily COLACE 100 MG CAPS One tablet by mouth twice daily DOCUSATE SODIUM [id number] Radha Blanton RN Comment on above: Take 1 capsule by mo ut twice daily for 3 days. Take 1 capsule by mo [facility] twice daily for 10 days. fluticasone propionate 0.05 mg/actuat metered dose nasal spray (9 sources) Corticosteroid Start: take 1 spray(s) nasal route twice daily fluticasone (Flonase) 50 MCG/ACT nasal spray 1 (ONE) SPRAY(S) TWICE DAILY EACH NOSTRIL 03/31/2023 Active Start: 09-05-2014 End: 04-26-2017 FLUTICASONE PROPIONATE 50 MC G/ACT SUSP 1-2 times daily FLUTICASONE PROPIONATE [id number] Teresita Dunaway gabapentin 600 mg oral tablet (20 sources) Anti-epileptic Agent take 1 tablet by mouth once daily at bedtime gabapentin (NEURONTIN) 600 mg tablet Take 600 mg by mouth daily at bedtime. 0 Active take 1 tablet by mouth twice kali ly gabapentin (NEURONTIN) 600 mg tablet Take 600 mg by mouth twice daily. 1/2 morning and 1 at night 0 Active Comment on above: Take 600 mg by mouth twice daily. 1/2 morning and 1 at night Take 600 mg by mouth daily at bedtime. ipratropium bromide 0.021 mg/actuat metered dose nasal spray (20 sources) Anticholinergic Start: 05-10-2023 Ipratropium [place] 21 mcg (0.03 %) spray,non-aerosol Active 2 NMA INTRANASAL TWICE A DAY May 10, 2023 12:00am administer into each nostril Start: 05-10-2023 take 1 spray(s) nasa l route twice daily Ipratropium [place] Active 2 SPRAY INTRANASAL TWICE A DAY May 10, 2023 12:00am administer into each nostril Start: 03-31-2023 take 1-2 spray(s) na [place] route every six hours at bedtime for cough ipratropium (Atrovent) 0.03 % nasal spray 1-2 SPRAY(S) EACH NOSTRIL BEFORE BEDTIME AND NEEDEDE EVERY 6 HOURS FOR COUGH, MUCOUS, RUNNY NOSE 03/31/2023 Active Start: 01-19-2017 End: 11-15-2017 Ipratropium [place] 15 ML spray,non-aerosol Discontinued 2 NMA NS EVERY 6 HOURS as needed for Not Specified January 19, 2017 12:00am November 15, 2017 3:57pm Start: 01-19-2017 End: 11-15-2017 Ipratropium [place] Disconti nued 2 SPRAY NS EVERY 6 HOURS January 19, 2017 12:00am November 15, 2017 3:57pm Start: 09-05-2014 IPRATROPIUM BR OMIDE 0.03 % SOLN as directed IPRATROPIUM BROMIDE [id number] Teresita Dunaway ipratropium (ATR OVENT) 0.03 % nasal spray 2 sprays by Nasal route as needed 0 Active ipratropium (ATR OVENT) 0.03 % nasal spray Indications: at bedtime prn 2 sprays by Nasal route daily Indications: at bedtime prn 0 Active iv contrast (will be provided with radiology test) (2 sources) Start: 12-16-2021 End: 12-17-2021 iv contrast (will be provided with radiology test) MRI ABD/PEL UROGRAM Inject, intravenously, once for 1 dose. No IV access, insert saline lock prior to the beginning of sedation, infusion, injection of imaging exam. Discontinue saline lock post exam. If Pt has a central line or IVAD, may access for administration according to line specific nursing protocol. Once exam is complete flush line and de-access according to line specific nursing protocol in the MR contrast administration guidelines link 1 Each 0 12/16/2021 12/17/2021 Active Comment on above: MRI ABD/PEL UROGRAM Inject, intravenously, once for 1 dose. No IV access, insert saline lock prior to the beginning of sedation, infusion, injection of imaging exam. Discontinue saline lock post exam. If Pt has a central line or IVAD, may access for administration according to line specific nursing protocol. Once exam is complete flush line and de-access according to line specific nursing protocol in the MR contrast administration guidelines link levothyroxine sodium 0.025 mg oral tablet (18 sources) l-Thyroxine Start: 10-11-2024 take 1 tablet by mouth once daily Levothyroxine 25 mcg tablet Active 25 ug PO daily October 11, 2024 12:00am Start: 05-10-2023 End: 10-11-2024 take 1 capsule by mouth once daily Levothyroxine 25 mcg capsule Discontinued 25 ug PO DAILY May 10, 2023 12:00am October 11, 2024 9:26am Start: 04-07-2023 take 1 tablet by morgan th once daily levothyroxine (Synthroid, Levoxyl) 25 MCG tablet Take 25 mcg by mouth daily. 04/07/2023 Active lidocaine 25 mg/ml / prilocaine 25 mg/ml topical cream (3 sources) Antiarrhythmic, Amide Local Anesthetic lidocaine-prilocaine (EMLA) 2.5-2.5 % cream Apply topically as needed for Pain Apply topically as needed. 0 Active midodrine hydrochloride 10 mg oral tablet (20 sources) alpha-Adrenergic Agonist Start: 2024 take 1 tablet by mouth once daily Midodrine 10 mg tablet Active 10 mg PO DAILY October 11, 2024 12:00am Start: 06-01-2023 End: 10-11-2024 take 2 tablets by mouth three times daily Midodrine 2.5 mg tablet Discontinued 5 mg PO THREE TIMES A DAY June 01, 2023 12:52pm October 11, 2024 9:25am Start: 06-01-2023 take 5 mg by mouth t hree times daily Midodrine Active 5 MG PO THREE TIMES A DAY June 01, 2023 12:52pm Start: 05-10-2023 End: 06-01-2023 take 1 tablet by mouth three times daily Midodrine 2.5 mg tablet Discontinued 2.5 mg PO THREE TIMES A DAY May 10, 2023 12:00am June 01, 2023 12:52pm Start: 11-26-2022 End: 01-20-2023 take 1 tablet by mouth once daily at bedtime Midodrine 5 mg tablet Discontinued 5 mg PO THREE TIMES A DAY 90 November 30, 2022 10:14am January 20, 2023 2:55pm this is a dose do not give last dose of day after 6PM or within 4 hrs of bedtime Start: 10-06-2022 End: 11-26-2022 take 1 tablet by mouth three times daily Midodrine 2.5 mg tablet Discontinued 2.5 mg PO THREE TIMES A DAY 90 October 29, 2022 1:45pm November 26, 2022 11:52am sertraline 50 mg oral tablet (20 sources) Serotonin Reuptake Inhibitor Start: 09-05-2014 take 1 tablet by mouth at bedtime Sertraline 50 MG tablet Active 50 mg PO AT BEDTIME January 19, 2017 12:00am depression take 1.5 tablets by mouth once d aily sertraline (ZOLOFT) 50 MG tablet Take 50 mg by mouth 1.5 tablets daily 0 Active Comment on above: Take 50 mg by mouth. Take 50 mg by mouth once daily. 1000 ml sodium chloride 9 mg/ml injection (3 sources) Start: 09-23-2021 0.9 % sodium chloride infusion Start: 11-22-2019 0.9 % sodium c hloride infusion Start: 11-13-2019 0.9 % sodium c hloride infusion warfarin sodium 3 mg oral tablet (20 sources) Vitamin K Antagonist Start: 10-11-2024 take 1 tablet by mouth once daily Warfarin 2 mg tablet Active 2 mg PO daily October 11, 2024 12:00am Start: 10-11-2024 take 1 tablet by morgan th three times weekly Warfarin 3 mg tablet Active 3 mg PO 3 TIMES A WEEK October 11, 2024 12:00am Start: 10-11-2024 take 1 tablet by morgan th once daily Warfarin 5 mg tablet Active 5 mg PO daily October 11, 2024 12:00am Managed by PCP Start: 12-01-2019 take 7 mg by mouth once daily warfarin (COUMADIN) 7.5 mg tablet Indications: ok to restart on 03/05 Take 7 mg by mouth once daily. 0 12/01/2019 Active Start: 01-19-2017 End: 10-11-2024 take 7 mg by mouth at bedtime Warfarin 1 MG tablet Dis continued 0 PO AT BEDTIME January 19, 2017 12:00am October 11, 2024 9:31am blood thinner 7 mg orally at bedtime; Start: 01-19-2017 take 7 mg by mouth at bedtime Warfarin Active 0 PO AT BEDTIME January 19, 2017 12:00am 7 mg orally at bedtime; Start: 01-19-2017 take 7.5 mg by mouth at bedtim e Warfarin Active 7.5 MG PO AT BEDTIME January 19, 2017 12:00am Start: 09-05-2014 End: 04-15-2017 take 1 tablet by mouth once daily COUMADIN 2.5 MG TABS One tablet by mouth daily WARFARIN SODIUM [id number] Teresita Da Silva Miomelissa Start: 09-05-2014 take 1 tablet by morgan th once daily warfarin (COUMADIN) 7.5 mg tablet Take 7.5 mg by mouth once daily. 0 12/01/2019 Active take 1 tablet by mouth once warf ashley (Coumadin) 2 MG tablet Take 2 mg by mouth. Take as directed per After Visit Summary. Active take 1 tablet by mouth once warf ashley (Coumadin) 5 MG tablet Take 5 mg by mouth. Take as directed per After Visit Summary. Active Comment on above: Take 7.5 mg by mouth once daily. Take 7 mg by mouth o nce daily. zolpidem tartrate 10 mg oral tablet (20 sources) gamma-Aminobutyric Acid-ergic Agonist Start: 10-11-2024 take 1 tablet by mouth at bedtime as needed Zolpidem 10 mg tablet Active 10 mg PO AT BEDTIME as needed for insomnia October 11, 2024 12:00am Start: 04-28-2023 take 1 tablet by morgan th once daily as needed zolpidem (Ambien) 10 MG tablet Take 10 mg by mouth Nightly as needed. 04/28/2023 Active Start: 01-19-2017 End: 05-10-2023 take 10 mg by mouth at bedtime as needed Zolpidem Active 10 MG PO AT BEDTIME NEEDED May 10, 2023 10:34am Start: 09-05-2014 End: 10-11-2024 take 2 tablets by mouth at bedtime as needed Zolpidem 5 mg tablet Discontinued 10 mg PO AT BEDTIME NEEDED as needed for Insomnia May 10, 2023 10:34am October 11, 2024 9:31am Start: 09-05-2014 take 1 tablet by morgan th at bedtime as needed ZOLPIDEM TARTRATE 5 MG TABS One tablet by mouth at bedtime. as needed ZOLPIDEM TARTRATE [id number] Ernesto Garvin MD Comment on above: Take 10 mg by mouth. Take 10 mg by mouth at bedtime as needed. Completed/Discontinued Medications Medication Drug Class(es) Dates Sig (Normalized) Sig (Original) acetaminophen 325 mg / HYDROcodone bitartrate 5 mg oral tablet (20 sources) Opioid Agonist Start: 01-26-2022 End: 03-30-2022 Hydrocodone-Acetami nophen 5-325 mg tablet Discontinued 1 {tbl} PO THREE TIMES A DAY as needed for pain 9 3 January 26, 2022 March 30, 2022 2:43pm Pain in pelvis Pelvic and perineal pain Start: 01-26-2022 End: 03-30-2022 take 1 tablet by mouth three times daily Hydrocodone-Acetaminophen Discontinued 1 TABLET PO THREE TIMES A DAY 9 3 January 26, 2022 March 30, 2022 2:43pm Start: 04-08-2018 End: 04-13-2018 Hydrocodone-Acetaminophen 1 EACH tablet Discontinued 1 - 2 NMA PO 4 TIMES DAILY NEEDED as needed for Pain 20 April 08, 2018 12:00am April 12, 2018 12:00am April 13, 2018 12:07am Pain of lower extremity Pain in leg, unspecified Start: 04-08-2018 End: 04-13-2018 Hydrocodone-Acetaminophen Di scontinued 1 - 2 EACH PO 4 TIMES DAILY NEEDED 27 11April 08, 2018 12:00am April 13, 2018 12:07am ascorbic acid 500 mg oral tablet (20 sources) Vitamin C Start: 05-17-2017 End: 11-15-2017 take 1 tablet by mouth once daily Ascorbic Acid (Vitamin C) 500 MG tablet Discontinued 500 mg PO DAILY@0800 May 17, 2017 1:00am November 15, 2017 3:57pm supplement Start: 09-05-2014 End: 04-15-2017 take 1 tablet by mouth once daily VITAMIN C 500 MG TABS One tablet by mouth daily ASCORBIC ACID [id number] Teresita Dunaway ascorbic acid 100 mg / biotin 0.15 mg / calcium pantothenate 5 mg / folic acid 1 mg / niacin 20 mg / pyridoxine 10 mg / riboflavin 1.7 mg / thiamine mononitrate 1.5 mg / vitamin b 12 0.006 mg oral capsule (7 sources) Nicotinic Acid, Vitamin B12, Vitamin C Start: 09-05-2014 take 1 tablet by mouth once daily NEPHROCAPS 1 MG CAPS One tablet by mouth daily B [id number] ACID [id number] Teresita Dunaway take 0.8 mg by mouth once daily b jsctglk-[id number] acid (NEPHROCAPS) 1 MG capsule Take 1 capsule by mouth daily 0.8 mg 0 Active aspirin 81 mg delayed release oral tablet (8 sources) Platelet Aggregation Inhibitor, Nonsteroidal Anti-inflammatory Drug Start: 06-08-2016 End: 04-15-2017 take 1 tablet by mouth once daily ASPIRIN EC 81 MG TBEC One tablet by mouth daily ASPIRIN [id number] Hanane Barth RN B [id number] ACID (4 sources) Start: 09-05-2014 take 1 tablet by mouth once daily RENAL-YAHIR 0.8 MG TABS One tablet by mouth daily B [id number] ACID [id number] Radha Blanton RN B Complex-Vitamin C-Folic Acid (20 sources) Start: 01-19-2017 End: 11-15-2017 take 1 tablet by mouth at bedtime B Complex-Vitamin C-Folic Acid Discontinued 1 TABLET PO AT BEDTIME January 19, 2017 2:50pm November 15, 2017 3:57pm Start: 01-19-2017 End: 11-15-2017 take 1 tablet by mouth at bedtime B Complex-Vitamin C-Folic Acid Discontinued 1 TABLET PO AT BEDTIME January 18, 2017 11:00pm November 15, 2017 2:57pm Start: 01-19-2017 End: 11-15-2017 take 1 tablet by mouth at bedtime B Complex-Vitamin C-Folic Acid Discontinued 1 TABLET PO AT BEDTIME January 19, 2017 12:00am November 15, 2017 3:57pm B Complex-Vitamin C-Folic Ac id 0.8 MG tablet (7 sources) Start: 01-19-2017 End: 11-15-2017 B Complex-Vitamin C-Folic Ac id 0.8 MG tablet Discontinued 1 {tbl} PO AT BEDTIME January 19, 2017 12:00am November 15, 2017 3:57pm supplement Start: 01-19-2017 End: 11-15-2017 B Complex-Vitamin C-Folic Ac id 0.8 MG tablet Discontinued 1 {tbl} PO AT BEDTIME January 19, 2017 12:00am November 15, 2017 3:57pm B-COMPLEX W/ C & FOLIC ACID CAPS (3 sources) Start: 04-26-2017 take 1 tablet by mouth once daily RENAL CAPS One tablet by mouth daily B-COMPLEX W/ C & FOLIC ACID CAPS [id number] Ernesto Garvin MD belladonna alkaloids 16.2 mg / opium 30 mg rectal suppository (20 sources) Start: 01-30-2022 End: 10-11-2024 Belladonna Alkaloids-Opium 16.2-30 mg suppository Discontinued 1 NMA RC THREE TIMES A DAY as needed for pain 12 7 0 January 30, 2022 October 11, 2024 9:30am Gross hematuria Gross hematuria Start: 01-30-2022 Belladonna Alk aloids-Opium Active 1 SUPP RC THREE TIMES A DAY 12 7 January 30, 2022 benzonatate 200 mg oral capsule (7 sources) Non-narcotic Antitussive Start: 08-21-2024 End: 09-17-2024 take 1 capsule by mouth three times daily as needed for cough Benzonatate 200 mg capsule Discontinued 200 mg PO THREE TIMES A DAY as needed for cough 20 0 August 21, 2024 1:00am September 17, 2024 4:16pm calcitriol 0.84611 mg oral capsule (8 sources) Vitamin D3 Analog Start: 06-08-2016 End: 04-15-2017 take 1 tablet by mouth at bedtime CALCITRIOL 0.25 MCG CAPS one tablet by mouth after meals and at bedtime CALCITRIOL [id number] Hanane Barth RN calcium acetate 667 mg oral capsule (4 sources) Start: 09-05-2014 take 1 tablet by mouth three times daily CALCIUM ACETATE 667 MG CAPS One tablet by mouth three times daily CALCIUM ACETATE (PHOS BINDER) [id number] Teresita Truongeloymelissa cephalexin 500 mg oral capsule (20 sources) Cephalosporin Antibacterial Start: 01-26-2022 End: 03-30-2022 take 1 capsule by mouth once daily Cephalexin 500 mg capsule Discontinued 500 mg PO DAILY 7 January 26, 2022 12:00am March 30, 2022 2:43pm renal dosed Comment on above: Take by mouth. cetirizine hydrochloride 10 mg oral tablet (8 sources) Histamine-1 Receptor Antagonist Start: 09-05-2014 End: 05-03-2016 take 1 tablet by mouth once daily SB ALLERGY 10 MG TABS One tablet by mouth daily CETIRIZINE HCL [id number] Maday Yee RN clopidogrel 75 mg oral tablet (20 sources) [id number] Platelet Inhibitor Start: 06-08-2016 End: 02-16-2023 take 1 tablet by mouth once daily Clopidogrel 75 mg tablet Discontinued 75 mg PO DAILY 90 February 12, 2022 4:48pm March 30, 2022 5:42pm prevents clots Comment on above: Take 75 mg by mouth. Take 75 mg by mouth once daily. cyclobenzaprine hydrochloride 10 mg oral tablet (20 sources) Muscle Relaxant Start: 01-13-2018 End: 06-29-2018 take 1 tablet by mouth three times daily as needed for muscle spasms Cyclobenzaprine 10 MG tablet Discontinued 10 mg PO THREE TIMES A DAY as needed for Muscle Spasm 20 January 13, 2018 12:00am June 29, 2018 1:54pm digoxin 0.125 mg oral tablet (16 sources) Cardiac Glycoside Start: 09-17-2024 End: 01-09-2025 take 1 tablet by mouth every other day Digoxin 125 mcg (0.125 mg) tablet Discontinued 125 ug PO EVERY OTHER DAY 09 06January 07, 2025 10:26am January 09, 2025 1:16pm 24 hr felodipine 10 mg extended release oral tablet (8 sources) Dihydropyridine Calcium Channel Genesis Start: 06-08-2016 End: 04-15-2017 FELODIPINE ER 10 MG [id number] one tabletevery night FELODIPINE [id number] Hanane Barth, CONSTANZA 2 ml fentaNYL 0.05 mg/ml injection (1 source) Opioid Agonist Start: 09-23-2021 End: 09-23-2021 fentaNYL (SUBLIMAZE) injection fludrocortisone acetate 0.1 mg oral tablet (18 sources) Start: 01-20-2023 End: 10-11-2024 take 1 tablet by mouth once daily Fludrocortisone 0.1 mg tablet Discontinued 0.1 mg PO DAILY 07 01January 20, 2023 12:00am October 11, 2024 9:29am Comment on above: Take 0.1 mg by mouth once daily. hydrOXYzine hydrochloride 25 mg oral tablet (12 sources) Antihistamine Start: 05-03-2016 End: 04-15-2017 take 1 tablet by mouth three times daily HYDROXYZINE HCL 25 MG TABS One tablet by mouth three times daily HYDROXYZINE HCL [id number] Hanane Barth RN Start: 05-03-2016 take 1 tablet by morgan th every eight hours HYDROXYZINE HCL 25 MG TABS One half tablet by mouth Q8Hrs HYDROXYZINE HCL [id number] Maday Yee RN lactulose 667 mg/ml oral solution (8 sources) Osmotic Laxative Start: 05-03-2016 End: 04-15-2017 take 1 [tsp_us] by mouth once daily LACTULOSE 10 GM/15ML SOLN 1 tsp by mouth daily LACTULOSE [id number] Radha Blanton RN lidocaine hydrochloride 0.02 mg/mg topical gel (3 sources) Antiarrhythmic, Amide Local Anesthetic Start: 01-28-2022 End: 01-28-2022 lidocaine 2 % (XYLOCAINE) Start: 09-23-2021 End: 09-23-2021 lidocaine PF 1 % injection Start: 11-13-2019 End: 11-13-2019 lidocaine PF 1 % injection lisinopril 10 mg oral tablet (20 sources) Angiotensin Converting Enzyme Inhibitor Start: 06-08-2016 End: 04-15-2017 take 1 tablet by mouth once daily Lisinopril 10 MG tablet Discontinued 10 mg PO DAILY January 19, 2017 12:00am March 08, 2017 5:31pm blood pressure methocarbamol 500 mg oral tablet (8 sources) Muscle Relaxant Start: 09-05-2014 End: 06-08-2016 take 1 tablet by mouth twice daily as needed METHOCARBAMOL 500 MG TABS One tablet by mouth twice daily as needed METHOCARBAMOL [id number] Teresita Da Silva Gume methylPREDNISolone 4 mg oral tablet (7 sources) Corticosteroid Start: 08-21-2024 End: 10-11-2024 take 1 tablet by mouth once Methylprednisolone (Medrol (Aime)) 4 mg tablets,dose pack Discontinued 0 PO per package directions 21 August 21, 2024 1:00am October 11, 2024 9:30am PO PER PKG DIR metoprolol tartrate 25 mg oral tablet (20 sources) beta-Adrenergic Genesis Start: 10-01-2021 End: 11-19-2021 take 0.5 tablet by mouth once daily Metoprolol Tartrate 25 mg tablet Discontinued 0 .ROUTE .COMPLEX 45 October 01, 2021 8:50am November 19, 2021 4:30pm TAKE 1/2 TABLET BY MOUTH DAY Start: 12-28-2019 End: 06-20-2023 take 1 tablet by mouth once daily Metoprolol Tartrate 25 mg tablet Discontinued 25 mg PO DAILY 90 November 20, 2021 9:21am October 06, 2022 10:18am This is a dose increase On Hold: low bp Start: 12-28-2019 metoprolol tar trate, short acting, (LOPRESSOR) 25 mg tablet Take 12.5 mg by mouth twice daily. 0 12/28/2019 Active Start: 12-11-2019 End: 11-21-2020 Metoprolol Tartrate 25 mg ta blet Discontinued 12.5 mg PO DAILY 45 3 September 30, 2020 10:01am November 21, 2020 2:08pm Start: 12-11-2019 End: 11-21-2020 take 12.5 mg by mouth once daily Metoprolol Tartrate Discontinued 12.5 MG PO DAILY 45 September 30, 2020 10:01am November 21, 2020 2:08pm Start: 05-18-2017 End: 12-11-2019 Metoprolol Tartrate 25 mg ta blet Discontinued 12.5 mg PO TWICE A DAY 09 07August 27, 2019 5:05pm December 11, 2019 1:47am Start: 05-18-2017 End: 12-11-2019 take 12.5 mg by mouth twice daily Metoprolol Tartrate Discontinued 12.5 MG PO TWICE A DAY August 27, 2019 5:05pm December 11, 2019 1:47am Start: 06-08-2016 End: 04-15-2017 take 1 tablet by mouth once daily METOPROLOL SUCCINATE ER 100 MG [id number] One tablet by mouth daily METOPROLOL SUCCINATE [id number] Hanane Barth RN take 0.5 tablet by m outh once daily metoprolol tartrate (LOPRESSOR) 25 MG tablet Take 25 mg by mouth Take 1/2 tab daily 0 Active take 0.5 tablet by m outh twice daily metoprolol tartrate (LOPRESSOR) 25 MG tablet Take 25 mg by mouth 2 times daily Take 1/2 tab twice a day 0 Active Comment on above: Take 12.5 mg by mout h twice daily. Take 25 mg by mouth once daily. 1 ml midazolam 5 mg/ml cartridge (1 source) Benzodiazepine Start: 09-23-2021 End: 09-23-2021 midazolam (VERSED) injection nitroglycerin 0.4 mg sublingual tablet (20 sources) Nitrate Vasodilator Start: 05-17-2017 End: 10-14-2022 Nitroglycerin 0.4 mg tablet, sublingual Discontinued 0.4 mg SL Q5M as needed for Chest Pain 04 09May 14, 2022 12:58pm October 14, 2022 1:33pm Start: 05-17-2017 End: 10-14-2022 nitroglycerin sublingual (NI TROQUICK) 0.4 mg SL tablet DISSOLVE 1 TAB UNDER THE TONGUE EVERY 5 MINUTES NEEDED FOR CHEST PAIN 0 12/28/2019 Active Comment on above: DISSOLVE 1 TAB UNDER THE TONGUE EVERY 5 MINUTES NEEDED FOR CHEST PAIN PROMETHAZINE HCL SOLN (8 sources) Phenothiazine Start: 06-08-2016 End: 04-15-2017 PHENERGAN SOLN as direceted PROMETHAZINE HCL SOLN [id number] Radha Blanton RN Start: 06-08-2016 PHENERGAN SOLN as direceted PROMETHAZINE HCL SOLN [id number] Hanane Barth RN sevelamer carbonate 800 mg oral tablet (20 sources) Phosphate Binder Start: 06-29-2018 End: 06-11-2021 take 1 tablet by mouth three times daily Sevelamer Carbonate 800 mg tablet Discontinued 800 mg PO THREE TIMES A DAY 90 30 0 March 13, 2019 10:13am June 11, 2021 2:56pm Start: 06-29-2018 End: 03-13-2019 Sevelamer Carbonate 800 mg t ablet Discontinued PO 270 30 0 June 29, 2018 1:00am March 13, 2019 10:15am Start: 05-17-2017 End: 11-15-2017 take 2 tablets by mouth three times daily at mealtime Sevelamer Carbonate 800 MG tablet Discontinued 1600 mg PO 3 TIMES DAILY WITH MEALS May 17, 2017 1:00am November 15, 2017 3:57pm kidneys Start: 05-17-2017 End: 11-15-2017 take 1600 mg by mouth three times daily at mealtime Sevelamer Carbonate Discontinued 1600 MG PO 3 TIMES DAILY WITH MEALS May 17, 2017 1:00am November 15, 2017 3:57pm Start: 05-03-2016 End: 04-15-2017 RENVELA 800 MG TABS As direc audelia SEVELAMER CARBONATE [id number] Maday Yee RN take 5 tablets by mo uth three times daily sevelamer carbonate (Renvela) 800 MG tablet Take 5 tablets by mouth 3 times daily. Active take 4 tablets by mo uth three times daily at mealtime sevelamer carbonate (RENVELA) 800 mg tablet Take 4 tablets by mouth three times daily with meals. 0 Active take 3 tablets by mo uth three times daily at mealtime sevelamer (RENVELA) 800 MG tablet Take 3 tablets by mouth 3 times daily (with meals) 0 Active Comment on above: Take 4 tablets by mo uth. Take 4 tablets by mo uth three times daily with meals. Take 5 tablets by mo uth three times daily with meals. sucroferric oxyhydroxide 500 mg chewable tablet (5 sources) Start: 04-15-2017 take 1 tablet by mouth three times daily VELPHORO 500 MG CHEW Two tablets by mouth three times daily SUCROFERRIC OXYHYDROXIDE [id number] Radha Blanton RN Sucroferric Oxyh ydroxide (VELPHORO) 500 MG CHEW Take by mouth 2 with every meal 0 Active sulfacetamide sodium 0.1 mg/mg ophthalmic ointment (20 sources) Sulfonamide Antibacterial Start: 05-17-2017 End: 11-15-2017 Sulfacetamide Sodium 3.5 GM ointment Discontinued 1 APPLICATIO EACH EYE 4 TIMES DAILY May 17, 2017 1:00am November 15, 2017 3:57pm to affected eye 200 ml vancomycin 5 mg/ml injection (1 source) Glycopeptide Antibacterial Start: 11-22-2019 End: 11-22-2019 vancomycin (VANCOCIN) 1000 mg in dextrose 5% 200 mL IVPB vitamin d 1000 unt oral tablet (3 sources) Start: 04-26-2017 take 1 tablet by mouth once daily VITAMIN D 1000 UNIT TABS One tablet by mouth daily CHOLECALCIFEROL [id number] Ernesto Garvin MD Problems Active Problems Problem Classification Problem Date Documented Da te Episodic/Chronic Abdominal pain (20 sources) Pain in pelvis; Translations: [Pelvic and perineal pain] Onset: 02-10-2023 Episodic Cardiac and circulatory congenital anomalies (17 sources) Disorder of coronary artery; Translations: [Malformation of coronary vessels] Onset: 02-03-2022 Chronic Cardiac arrest and ventricular fibrillation (20 sources) Ventricular fibrillation; Translations: [Sudden cardiac ] Onset: 06-08-2016 06-08-2016 Chronic Cardiac dysrhythmias (20 sources) Ventricular tachycardia; Translations: [Ventricular tachycardia] Onset: 06-08-2016 06-08-2016 Chronic Chronic kidney disease (20 sources) End stage renal disease; Translations: [End stage renal disease] Onset: 09-08-2007 05-03-2016 Chronic Comment on above: Congenital polycysti c kidney disease Coagulation and hemorrhagic disorders (20 sources) Platelet count below reference range; Translations: [Thrombocytopenia, unspecified] 12-11-2019 Chronic Conduction disorders (20 sources) Cardiac defibrillator in situ; Translations: [Presence of automatic (implantable) cardiac defibrillator] Onset: 06-21-2018 06-21-2018 Chronic Comment on above: subcutaneous ICD 06/2016 implant, gen changed 11/22/2019 Congestive heart failure; nonhypertensive (20 sources) Left ventricular cardiac dysfunction; Translations: [Heart disease, unspecified] Onset: 05-04-2016 05-04-2016 Chronic Coronary atherosclerosis and other heart disease (20 sources) Generalized ischemic myocardial dysfunction; Translations: [Coronary arteriosclerosis] Onset: 05-03-2016 06-08-2016 Chronic Coronary atherosclerosis and other heart disease (2 sources) Stented coronary artery; Translations: [Presence of stent in coronary artery] 05-04-2016 Deficiency and other anemia (20 sources) Anemia; Translations: [Anemia, unspecified] 02-03-2022 Episodic Disorders of lipid metabolism (20 sources) Hypertriglyceridemia ; Translations: [Pure hyperglyceridemia] Onset: 02-17-2023 Chronic Essential hypertension (20 sources) Hypertensive disorder; Translations: [Essential (primary) hypertension] Onset: 05-03-2016 05-03-2016 Chronic Fluid and electrolyte disorders (20 sources) Hypokalemia; Translations: [Hypokalemia] 12-11-2019 Episodic Genitourinary congenital anomalies (20 sources) Multiple congenital cysts of kidney; Translations: [Polycystic kidney, unspecified] Onset: 05-03-2016 05-03-2016 Chronic Genitourinary symptoms and ill-defined conditions (20 sources) Basil hematuria; Translations: [Gross hematuria] Onset: 01-28-2022 Episodic Other aftercare (7 sources) Long-term current use of anticoagulant; Translations: [snf (current) use of anticoagulants] 09-17-2024 Episodic Other circulatory disease (1 source) Arteriovenous fistula, acquired; Translations: [Arteriovenous fistula, acquired] Onset: 08-14-2024 Chronic Other circulatory disease (20 sources) History of torsades type ventricular tachycardia due to prolonged QT interval; Translations: [Personal history of other diseases of the circulatory system] 12-11-2019 Episodic Other circulatory disease (20 sources) Low blood pressure; Translations: [Hypotension, unspecified] 10-06-2022 Episodic Other nervous system disorders (20 sources) Paresthesia of hand ; Translations: [Anesthesia of skin] 12-11-2019 Episodic Other nutritional; endocrine; and metabolic disorders (14 sources) Obese class II; Translations: [Obesity, unspecified] Onset: 02-09-2022 02-09-2022 Chronic Other nutritional; endocrine; and metabolic disorders (6 sources) Obese class I; Translations: [Obesity, unspecified] Onset: 02-12-2023 02-12-2023 Chronic Other screening for suspected conditions (not mental disorders or infectious disease) (20 sources) INR raised; Translations: [Abnormal coagulation profile] 02-03-2022 Episodic Other upper respiratory disease (20 sources) Bleeding from nose; Translations: [Epistaxis] 12-12-2019 Episodic Mela-; endo-; and myocarditis; cardiomyopathy (except that caused by tuberculosis or sexually transmitted disease) (10 sources) Cardiomyopathy; Translations: [Cardiomyopathy, unspecified] Onset: 05-03-2016 05-03-2016 Chronic Phlebitis; thrombophlebitis and thromboembolism (20 sources) H/O: thrombosis; Translations: [Deep venous thrombosis] Onset: 07-11-2006 05-03-2016 Episodic Comment on above: LLE Residual codes; unclassified (1 source) Acute pain; Translations: [Acute pain] Episodic Residual codes; unclassified (1 source) Early satiety; Translations: [Early satiety] Episodic Spondylosis; intervertebral disc disorders; other back problems (8 sources) Degeneration of cervical intervertebral disc; Translations: [Cervical radiculopathy] Onset: 09-05-2014 09-13-2014 Chronic Spondylosis; intervertebral disc disorders; other back problems (20 sources) Neck pain; Translations: [Acute thoracic back pain] Onset: 09-05-2014 09-05-2014 Episodic Syncope (20 sources) Syncope and collapse; Translations: [Syncope and collapse] Onset: 05-03-2016 05-03-2016 Episodic Unclassified (4 sources) Drug therapy finding; Translations: [snf (current) use of anticoagulants] Onset: 05-03-2016 05-03-2016 Unclassified (4 sources) Warfarin therapy started; Translations: [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] Onset: 05-03-2016 05-03-2016 Unclassified (3 sources) Placement of stent in coronary artery ; Translations: [Presence of coronary angioplasty implant and graft] Onset: 06-08-2016 06-08-2016 Unclassified (1 source) Cough, unspecified; Translations: [Cough, unspecified] Onset: 08-21-2024 Unclassified (2 sources) Annual Exam; Translations: [Annual Exam] Onset: 07-09-2024 Past or Other Problems Problem Classification Problem Date Documented Da te Episodic/Chronic Cardiac dysrhythmias (20 sources) Palpitations; Translations: [Palpitations] Onset: 08-02-2024 03-16-2023 Episodic Coronary atherosclerosis and other heart disease (6 sources) Stented coronary artery; Translations: [Presence of coronary angioplasty implant and graft] Onset: 05-04-2016 05-04-2016 Episodic E Codes: Adverse effects of medical drugs (1 source) Adverse effect of cardiac-stimulant glycosides and drugs of similar action, initial encounter; Translations: [Adverse effect of cardiac-stimulant glycosides and drugs of similar action, initial encounter] Onset: 10-11-2024 Episodic Nonspecific chest pain (20 sources) Chest pain; Translations: [Chest pain, unspecified] Onset: 05-03-2016 Resolved: 06-08-2016 06-08-2016 Episodic Other aftercare (1 source) 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; Translations: [snf (current) use of anticoagulants] Onset: 07-11-2024 Episodic Other aftercare (1 source) Long-term (current) use of anticoagulants; Translations: [Long-term (current) use of anticoagulants] Onset: 07-11-2024 Episodic Other circulatory disease (12 sources) Hypotension, unspecified; Translations: [Hypotension, unspecified] Onset: 10-11-2024 10-06-2022 Episodic Other diseases of kidney and ureters (20 sources) Hydronephrosis; Translations: [Unspecified hydronephrosis] Onset: 01-28-2022 Episodic Other non-traumatic joint disorders (4 sources) Facet joint pain; Translations: [Dorsalgia, unspecified] Onset: 09-05-2014 09-13-2014 Episodic Results Test Name Value Interpretation Reference Range Facility 36on 03-18-2025 36 Per secure chaat pt needing 1yr fu w JKS, and in office device check JKS yrly fu 07/01/25 at 10am [facility] normalized rat io (INR) calculationOrdered By: Trevor Vieyra on 02-19-2025 INR Coag (Bld) [Relative time] 2.6 {INR} [facility] Prothrombin Time w/INRon INR Coag (PPP) [Relative time] 2.6 {INR} Normal [facility] Comment on above: Performed By: #### L 100.0100, L300.3900, L500.4050 #### [facility] [place] [address], [address] PT Coag (PPP) [Time] 28.4 s High 11.7-14.9 [facility] Comment on above: Performed By: #### L 100.0100, L300.3900, L500.4050 #### [facility] [address] [place], [address] Prothrombin timeOrdered By: Trevor Vieyra on 02-19-2025 PT Coag (PPP) [Time] 28.4 s High 11.7-14.9 [facility] normalized rat io (INR) calculationOrdered By: Trevor Vieyra on 01-15-2025 INR Coag (Bld) [Relative time] 2.4 {INR} [facility] Prothrombin Time w/INRon INR Coag (PPP) [Relative time] 2.4 {INR} Normal [facility] Comment on above: Performed By: #### L 100.0100, L300.3900, L500.4050 #### [facility] [address] [place], [address] PT Coag (PPP) [Time] 27.0 s High 11.7-14.9 [facility] Comment on above: Performed By: #### L 100.0100, L300.3900, L500.4050 #### [facility] [address] [place], [address] Prothrombin timeOrdered By: Trevor Vieyra on 01-15-2025 PT Coag (PPP) [Time] 27.0 s High 11.7-14.9 [facility] International normalized rat io (INR) calculationOrdered By: Trevor Vieyra on 12-29-2024 INR Coag (Bld) [Relative time] 2.7 {INR} [facility] Prothrombin Time w/INRon INR Coag (PPP) [Relative time] 2.7 {INR} Normal [facility] Comment on above: Performed By: #### L 100.0100, L300.3900, L500.4050 #### [facility] [address] [place], [address] Prothrombin timeOrdered By: Trevor Vieyra on 12-29-2024 PT Coag (PPP) [Time] 28.9 s High 11.7-14.9 [facility] Comment on above: Performed By: #### L 100.0100, L300.3900, L500.4050 #### [facility] [address] [place], [address] Prothrombin Time w/INRon INR Coag (PPP) [Relative time] 2.5 {INR} Normal [facility] Comment on above: Performed By: #### L 300.3900 #### [facility] [address] [place], [address] PT Coag (PPP) [Time] 27.3 s High 11.7-14.9 [facility] Comment on above: Performed By: #### L 300.3900 #### [facility] [address] [place], [address] International normalized rat io (INR) calculationOrdered By: Trevor Vieyra on 11-30-2024 INR Coag (Bld) [Relative time] 2.5 {INR} [facility] Prothrombin Time w/INRon INR Coag (PPP) [Relative time] 2.5 {INR} Normal [facility] Comment on above: Performed By: #### L 300.3900 #### [facility] [address] [place], [address] PT Coag (PPP) [Time] 27.8 s High 11.7-14.9 [facility] Comment on above: Performed By: #### L 300.3900 #### [facility] [address] [place], [address] Prothrombin timeOrdered By: Trevor Vieyra on 11-30-2024 PT Coag (PPP) [Time] 27.8 s High 11.7-14.9 [facility] Prothrombin Time w/INRon INR Coag (PPP) [Relative time] 1.9 {INR} Normal [facility] Comment on above: Performed By: #### L 100.0100, L300.3900, L500.4050 #### [facility] [address] [place], [address] PT Coag (PPP) [Time] 22.2 s High 11.7-14.9 [facility] Comment on above: Performed By: #### L 100.0100, L300.3900, L500.4050 #### [facility] [address] [place], [address] Prothrombin Time w/INRon INR Coag (PPP) [Relative time] 1.6 {INR} Normal [facility] Comment on above: Performed By: #### L 100.0100, L300.3900, L500.4050 #### [facility] [address] [place], [address] PT Coag (PPP) [Time] 19.5 s High 11.7-14.9 [facility] Comment on above: Performed By: #### L 100.0100, L300.3900, L500.4050 #### [facility] [address] [place], [address] Digoxin Levelon 10-18-2024 DIG 0.68 ng/mL Normal 0.00-2.00 [facility] Comment on above: Performed By: #### L 300.3900 #### [facility] [address] [place], [address] Digoxin [Mass/Vol]Ordered By : Christiano Tee on 10-18-2024 Digoxin Level 0.68 ng/mL 0.00-2.00 [facility] Serum or plasma digoxin destini urement (mass/volume)Ordered By: Christiano Tee on 10-18-2024 Digoxin [Mass/Vol] 0.68 ng/mL 0.00-2.00 [facility] 12 Lead EKG performed by [facility] [place] on 10-11-2024 12 Lead EKG performed by [facility] [address] [place] [address] 12 Lead EKG performed by [facility] [place] 10/11/2458 MR#: [id number] Acct: [id number] Name: SPENCER REDDING Rep #: [id number] : 1965 59 From: Christiano Tee NP LEAD DATA ENTRY OPERATOR-C Attending Dr: Christiano Tee LEAD DATA ENTRY OPERATOR-C Status: DEP AMB Ordering Dr: Christiano Tee NP LEAD DATA ENTRY OPERATOR-C Date: 10/11/24 [place] [facility] [place] Sex: F C Admitted: BMS/12 Lead EKG performed by [facility] [place] ECG Report Interpretation ---Atrial Rhythm P:QRS - 1:1, Abnormal P axis, H Rate 75WITHIN NORMAL LIMITSElectronically signed on 10/17/2024 at 11:37 by Ernesto Garvin Software Version 8610 10/17/24 1140 Date Christiano Tee NP LEAD DATA ENTRY OPERATOR-C CC: Dr. Trevor Vieyra MD Date Dictated: 10/11/24957 Date Transcribed: 10/11/24957 Centrifugal Extractor Operator: JJ Signed Normal [facility] Cardiology Visit Reporton Cardiology Visit Report [facility] [address] [place] [address] OFFICE VISIT Date of Service: 10/11/24 MR#: [id number] Acct: [id number] Name: SPENCER REDDING Rep #: [id number] : 1965 Provider: LEAD DATA ENTRY OPERATOR-C Christiano garcia Age/Sex: 59/F [place] [facility] [place] Status: Signed HPI HPI History of Present Illness Details: SPENCER REDDING, is a 59 F who presents for a cardiovascular outpatient follow-up. She has a history of coronary artery disease with a known high-grade lesion of the right coronary artery diagnosed in April 2016 after she had developed torsade de pointes. She underwent angioplasty and stenting of the above. She did have angioplasty and stenting of her moderate 60 to 70% lesion in the left anterior descending artery which was stented and a moderate 60% lesion in the circumflex artery which was managed medically. As a result of the above she also underwent implantation of a subcutaneous defibrillator in July 2016. She had generator changed in November 2019. She continues on dialysis 3 times a week M,W, and F. She also has a history of hypertension, hyperparathyroidism, and anemia. She does have her ICD checked routinely through [facility]. Her INR is managed by her PCP. She did have a left nephrectomy in February of 2023. Unfortunately she continues with low BP issues. She has tried compression stockings, this has not made a difference. BP have been low with dialysis. She presented to the Emergency Department on 09/17/2024 for chest pain. On account of such, her dialysis was cut short. Received Cardizem to assist with atrial fibrillation RVR. She was started on diltiazem therapy. Noted to be in sinus rhythm with a controlled rate. She denies chest, arm, jaw, or neck discomfort. She states infrequent palpitations that she describes as fast. She denies bilateral lower extremity edema. She denies claudication. She denies shortness of breath with activity, shortness of breath at rest, orthopnea, or PND. She denies chronic cough. She denies significant, sudden weight gain. She states lightheadedness, dizziness, near-syncope, and syncope. She denies blood in urine, blood in stool, or epistaxis. He denies fever with chills. She denies myalgia. She acknowledges fatigue. Her exercise level has remained stable. Intake Vital Signs 07/08/24 16:40 09/17/24 16:08 10/11/24 09:18 Height 5 ft 2 in 5 ft 2 in 5 ft 2 in Weight: 185 lb BMI 33.8 BP 92/61 Blood Pressure Location Rt brachial Position Sitting Respiration 18 Pulse 84 Pulse Source NIBP Intake Visit Reasons: S/P [facility] 09/17 Bung Sewer Required: No Is patient in pain?: No Allergies amoxicillin Allergy (Verified 10/11/24 09:23) Rash doxercalciferol (From Hectorol) Allergy (Verified 10/11/24 09:23) Hives etodolac Allergy (Verified 10/11/24 09:23) Rash Penicillins (PCN) Allergy (Verified 10/11/24 09:23) Rash sulfamethoxazole (From Bactrim) Allergy (Verified 10/11/24 09:23) Rash tramadol Allergy (Verified 10/11/24 09:23) Rash trimethoprim (From Bactrim) Allergy (Verified 10/11/24 09:23) Rash strawberry Adverse Reaction (Verified 10/11/24 09:23) Vomiting Medications ???Medication ???Instructions ???Recorded ???Confirmed ???Type sertraline 50 mg tablet 50 mg PO QHS depression 01/19/17 0 10/11/24 History cholecalciferol (vitamin D3) 25 1,000 unit PO QDAY 10/24/17 History mcg (1,000 unit) tablet sevelamer carbonate 800 mg tablet 800 mg PO TID 30 days #90 tabs 10/11/24 History calcium carbonate (Tums) 400 mg PO BID 03/30/22 10/11/24 Hi story nitroglycerin 0.4 mg sublingual 0.4 mg sublingual Q5M PRN Chest 10/11/24 Rx tablet Pain #25 tabs ipratropium bromide 21 mcg (0.03 2 spray intranasal BID 05/10/23 History %) nasal spray digoxin 125 mcg (0.125 mg) tablet 125 mcg PO QODAY #30 tabs 5 10/11/24 Rx atorvastatin 10 mg tablet 10 mg PO DAILY #30 tabs 10/11/24 0 10/11/24 Rx levothyroxine 25 mcg tablet 25 mcg PO QDAY 10/11/24 10/11/24 H istory midodrine 10 mg tablet 10 mg PO DAILY 10/11/24 10/11/24 H istory vitamin B complex-vitamin C-folic 1 tab PO QDAY 10/11/24 10/11/24 H istory acid 0.8 mg tablet (Rani-Yahir) warfarin 2 mg tablet 2 mg PO QDAY 10/11/24 10/11/24 His tory warfarin 3 mg tablet 3 mg PO 3XW 10/11/24 10/11/24 Hist ory warfarin 5 mg tablet 5 mg PO QDAY 10/11/24 10/11/24 His tory zolpidem 10 mg tablet 10 mg PO QHS PRN insomnia 10/11/24 10/11/24 History Ejection fraction %: 65 Have you fallen in the past year?: Yes (BP dropped and she went to the floor) PFSH Medical History Polycystic kidney disease Sudden cardiac Hypertriglyceridemia Hyperlipidemia History of torsades de pointes Atherosclerosis of patel (more content not included)... Normal [facility] International normalized rat io (INR) calculationOrdered By: Trevor Vieyra on 10-11-2024 INR Coag (Bld) [Relative time] 2.0 {INR} [facility] Prothrombin Time w/INRon INR Coag (PPP) [Relative time] 2.0 {INR} Normal [facility] Comment on above: Performed By: #### L 300.3900 #### [facility] [address] [place], [address] PT Coag (PPP) [Time] 23.1 s High 11.7-14.9 [facility] Comment on above: Performed By: #### L 300.3900 #### [facility] [address] [facility] [place], [address] Prothrombin timeOrdered By: Trevor Vieyra on 10-11-2024 PT Coag (PPP) [Time] 23.1 s High 11.7-14.9 [facility] 12 Lead EKGon 09-17-2024 12 Lead EKG [facility] Cardiovascular Services [address] [place] [address] 12 Lead EKG 09/17/24 1611 MR#: [id number] Acct: [id number] Name: SPENCER REDDING Rep #: [id number] : 1965 59 From: Jeremy Vega MD Attending Dr: Status: DEP ER Ordering Dr: Marques Peace MD Date: 09/17/24 Location: ED Sex: F C Admitted: Test Reason : Blood Pressure : */* mmHG Vent. Rate : 162 BPM Atrial Rate : 162 BPM P-R Int : 136 ms QRS Dur : 74 ms QT Int : 268 ms P-R-T Axes : 40 49 220 degrees QTcB Int : 439 ms Critical Test Result: High HR Atrial fibrillation with rapid ventricular response Marked ST abnormality, possible lateral subendocardial injury Abnormal ECG Confirmed by Jeremy Vega ([id number]), sports editor FARHAN AGUILAR ([id number]) on 09/18/2024 10:48:43 AM Referred By: Confirmed By: Jeremy Vega 09/18/24 1048 Date Jeremy Vega MD CC: Dr. Marques Peace MD; Dr. Trevor Vieyra MD Signed Normal [facility] 12 Lead EKG [facility] Cardiovascular Services [address] [place] [address] 12 Lead EKG 09/17/24 1648 MR#: [id number] Acct: [id number] Name: SPENCER REDDING Rep #: [id number] : 1965 59 From: Jeremy Vega MD Attending Dr: Status: DEP ER Ordering Dr: Marques Peace MD Date: 09/17/24 Location: ED Sex: F C Admitted: Test Reason : REPEAT Blood Pressure : */* mmHG Vent. Rate : 96 BPM Atrial Rate : 96 BPM P-R Int : 144 ms QRS Dur : 84 ms QT Int : 422 ms P-R-T Axes : * 19 64 degrees QTcB Int : 533 ms Sinus rhythm with frequent Premature ventricular complexes Prolonged QT Abnormal ECG Confirmed by Jeremy Vega ([id number]), sports editor FARHAN AGUILAR ([id number]) on 09/18/2024 10:56:35 AM Referred By: Confirmed By: Jeremy Vega 09/18/24 1056 Date Jeremy Vega MD CC: Dr. Marques Peace MD; Dr. Trevor Vieyra MD Signed Normal [facility] Absolute lymphocyte countOrd ered By: Marques Peace on 09-17-2024 Lymphocytes Auto (Unsp spec) [#/Vol] 1.11 10*3/uL 0.83-4.51 [facility] Absolute neutrophil countOrd ered By: Marques Peace on 09-17-2024 Neutrophils (Bld) [#/Vol] 4.1 10*3/uL 2.0-7.7 [facility] Anion gap in Serum or Plasma Ordered By: Marques Peace on 09-17-2024 Anion gap [Moles/Vol] 17 mmol/L High 5-15 [facility] Automated lymphocyte count a s percentage of total leukocytesOrdered By: Marques Peace on 09-17-2024 Lymphocytes/100 WBC Auto (Unsp spec) 18.8 % Low 19-41 [facility] BUN/creatinine ratioOrdered By: Marques Peace on 09-17-2024 Urea nitrogen/Creatinine [Mass ratio] 4.2 mg/mg Low 10-20 [facility] Basophil percentageOrdered B y: Marques Peace on 09-17-2024 Basophils/100 WBC (Bld) 0.5 % 0-1 [facility] Bilirubin, totalOrdered By: Marques Peace on 09-17-2024 Bilirubin [Mass/Vol] 0.26 mg/dL 0.00-1.30 [facility] CBC W/Diff, Automatedon 09-08 Absolute Lymph 1.11 X10 3/uL Normal 0.83-4.51 [facility] Comment on above: Performed By: #### L 100.0100, L300.3900, L500.4050 #### [facility] [address] [place], [address] Absolute Neut 4.1 X10 3/uL Normal 2.0-7.7 [facility] Comment on above: Performed By: #### L 100.0100, L300.3900, L500.4050 #### [facility] [address] [place], [address] Basophils/100 WBC (Bld) 0.5 % Normal 0-1 [facility] Comment on above: Performed By: #### L 100.0100, L300.3900, L500.4050 #### [facility] [address] [place], [address] Eosinophils/100 WBC (Bld) 5.2 % High 0-5 [facility] Comment on above: Performed By: #### L 100.0100, L300.3900, L500.4050 #### [facility] [address] [place], [address] Erythrocyte distribution width (RBC) [Ratio] 14.8 % High 11.6-14.6 [facility] Comment on above: Performed By: #### L 100.0100, L300.3900, L500.4050 #### [facility] [address] [place], [address] Hematocrit (Bld) [Volume fraction] 34.0 % Low 37-47 [facility] Comment on above: Performed By: #### L 100.0100, L300.3900, L500.4050 #### [facility] [address] [place], [address] Hemoglobin (Bld) [Mass/Vol] 11.6 g/dL Low 12.0-15.0 [facility] Comment on above: Performed By: #### L 100.0100, L300.3900, L500.4050 #### [facility] [address] [place], [address] IG% 0.200 Normal 0.0-0.9 [facility] Comment on above: Result Comment: IG% - Immature Granulocytes (promyelocytes, myelocytes and metamyelocytes) > 1% indicates that a LEFT SHIFT is Present. Performed By: #### L 100.0100, L300.3900, L500.4050 #### [facility] [address] [place], [address] Lymphocytes/100 WBC (Bld) 18.8 % Low 19-41 [facility] Comment on above: Performed By: #### L 100.0100, L300.3900, L500.4050 #### [facility] [address] [place], [address] MCH (RBC) [Entitic mass] 33.0 pg High 27.0-32.0 [facility] Comment on above: Performed By: #### L 100.0100, L300.3900, L500.4050 #### [facility] [address] [place], [address] MCHC (RBC) [Mass/Vol] 34.1 g/dL Normal 32-36 [facility] Comment on above: Performed By: #### L 100.0100, L300.3900, L500.4050 #### [facility] [address] [place], [address] MCV (RBC) [Entitic vol] 96.9 fL Normal 81-99 [facility] Comment on above: Performed By: #### L 100.0100, L300.3900, L500.4050 #### [facility] [address] [place], [address] Monocytes/100 WBC (Bld) 6.6 % Normal 0-10 [facility] Comment on above: Performed By: #### L 100.0100, L300.3900, L500.4050 #### [facility] [address] [place], [address] Neutrophils/100 WBC (Bld) 68.7 % Normal 47-70 [facility] Comment on above: Performed By: #### L 100.0100, L300.3900, L500.4050 #### [facility] [address] [place], [address] Nucleated RBC (Bld) [#/Vol] 0 10*3/uL Normal 0-5 [facility] Comment on above: Performed By: #### L 100.0100, L300.3900, L500.4050 #### [facility] [address] [place], [address] Platelet mean volume (Bld) [Entitic vol] 9.3 fL Normal 6.2-12.0 [facility] Comment on above: Performed By: #### L 100.0100, L300.3900, L500.4050 #### [facility] [address] [place], [address] Platelets (Bld) [#/Vol] 207 10*3/uL Normal 150-450 [facility] Comment on above: Performed By: #### L 100.0100, L300.3900, L500.4050 #### [facility] [address] [place], [address] RBC (Bld) [#/Vol] 3.51 10*6/uL Low 4.2-5.4 [facility] Comment on above: Performed By: #### L 100.0100, L300.3900, L500.4050 #### [facility] [address] [place], [address] RDW SD 51.5 fl High 35.1-43.9 [facility] Comment on above: Performed By: #### L 100.0100, L300.3900, L500.4050 #### [facility] [address] [place], [address] WBC (Bld) [#/Vol] 5.9 10*3/uL Normal 4.4-11.0 [facility] Comment on above: Performed By: #### L 100.0100, L300.3900, L500.4050 #### [facility] [address] [place], [place], [address] Carbon dioxide, total [Moles /volume] in Central venous bloodOrdered By: Marques Peace on 09-17-2024 CO2 [Moles/Vol] 33.0 mmol/L High 21.0-32.0 [facility] Chest 1 View (Portable)on Chest 1 View (Portable) [facility] Imaging Services [address] [place] [address] Chest 1 View (Portable) MR#: [id number] Acct: [id number] Name: SPENCER REDDING Rep #: [id number] : 1965 F 59 From: Yoon Olmos nd, MD PCP: Dr. Trevor Vieyra MD Status: PRE ER Study: Chest 1 View (Portable) Date of Exam: 09/17/24 Exam# [id number] Ordering Dr: Marques Peace MD PROCEDURE: CHEST 1 VIEW (PORTABLE) REASON FOR EXAM: 59-year-old female, palpitations, coronary artery disease. TECHNIQUE: Frontal view of the chest. COMPARISON: Chest radiograph 07/08/2024. FINDINGS: Partially visualized vascular stent overlying the left axilla. Left chest wall cardiac conduction device Stable mild cardiomegaly. Calcification of the thoracic aorta. No focal consolidation, pleural effusion or pneumothorax. Degenerative changes are identified within the thoracic spine. RAD/Chest 1 View (Portable) IMPRESSION: Stable chest radiograph. Reading Location: [facility] CC: Dr. Marques Peace MD; Dr. Trevor Vieyra MD Centrifugal Extractor Operator: Signed Normal [facility] Chloride assayOrdered By: Alfred Peace on 09-17-2024 Chloride [Moles/Vol] 89 mmol/L Low 98-108 [facility] Comprehensive Metabolic Prof ilon 09-17-2024 Albumin [Mass/Vol] 4.5 g/dL Normal 3.4-4.8 [facility] Comment on above: Performed By: #### L 100.0100, L300.3900, L500.4050 #### [facility] [address] [place], [address] Albumin/Globulin [Mass ratio] 1.4 {ratio} Normal 0.9-2.4 [facility] Comment on above: Performed By: #### L 100.0100, L300.3900, L500.4050 #### [facility] [address] [place], [address] ALK PHOS 96 U/L Normal 35-104 [facility] Comment on above: Performed By: #### L 100.0100, L300.3900, L500.4050 #### [facility] [address] [place], [address] ALT [Catalytic activity/Vol] 23 U/L Normal <=34 [facility] Comment on above: Performed By: #### L 100.0100, L300.3900, L500.4050 #### [facility] [address] [place], [address] AST [Catalytic activity/Vol] 25 U/L Normal <=31 [facility] Comment on above: Performed By: #### L 100.0100, L300.3900, L500.4050 #### [facility] [address] [place], [address] Bilirubin [Mass/Vol] 0.26 mg/dL Normal 0.00-1.30 [facility] Comment on above: Performed By: #### L 100.0100, L300.3900, L500.4050 #### [facility] [address] [place], [address] BUN/CRE 4.2 RATIO Low 10-20 [facility] Comment on above: Performed By: #### L 100.0100, L300.3900, L500.4050 #### [facility] [address] [place], [address] Calcium [Mass/Vol] 8.5 mg/dL Normal 7.6-11.0 [facility] Comment on above: Performed By: #### L 100.0100, L300.3900, L500.4050 #### [facility] [address] [place], [address] Chloride [Moles/Vol] 89 mmol/L Low 98-108 [facility] Comment on above: Performed By: #### L 100.0100, L300.3900, L500.4050 #### [facility] [address] [place], [address] CO2 [Moles/Vol] 33.0 mmol/L High 21.0-32.0 [facility] Comment on above: Performed By: #### L 100.0100, L300.3900, L500.4050 #### [facility] [address] [place], [address] Creatinine [Mass/Vol] 6.01 mg/dL High 0.70-1.20 [facility] Comment on above: Performed By: #### L 100.0100, L300.3900, L500.4050 #### [facility] [address] [place], [address] ECRCL 10.10 ml/min Low 50-250 [facility] Comment on above: Performed By: #### L 100.0100, L300.3900, L500.4050 #### [facility] [address] [place], [address] GAP 17 High 5-15 [facility] Comment on above: Performed By: #### L 100.0100, L300.3900, L500.4050 #### [facility] [address] [place], [address] GFR/1.73 sq M.predicted among non-blacks MDRD (S/P/Bld) [Vol rate/Area] 7 mL/min/{1.73_m2} Low >60 [facility] Comment on above: Result Comment: mL/m in/1.73m2 CKD-EPI Creatinine Equation (2020) Performed By: #### L 100.0100, L300.3900, L500.4050 #### [facility] [address] [place], [address] Globulin (S) [Mass/Vol] 3.1 g/dL Normal 2.2-4.2 [facility] Comment on above: Performed By: #### L 100.0100, L300.3900, L500.4050 #### [facility] [address] [place], [address] Glucose [Mass/Vol] 93 mg/dL Normal 70-99 [facility] Comment on above: Performed By: #### L 100.0100, L300.3900, L500.4050 #### [facility] [address] [place], [address] Potassium [Moles/Vol] 3.5 mmol/L Normal 3.3-5.1 [facility] Comment on above: Result Comment: Hemo lysis present, Results??could be affected. ?? Performed By: #### L 100.0100, L300.3900, L500.4050 #### [facility] [address] [place], [address] Sodium [Moles/Vol] 139 mmol/L Normal 133-145 [facility] Comment on above: Performed By: #### L 100.0100, L300.3900, L500.4050 #### [facility] [address] [place], [address] T PROT 7.6 g/dL Normal 5.9-8.4 [facility] Comment on above: Performed By: #### L 100.0100, L300.3900, L500.4050 #### [facility] [address] [place], [address] Urea nitrogen [Mass/Vol] 25 mg/dL High 4- [facility] Comment on above: Performed By: #### L 100.0100, L300.3900, L500.4050 #### [facility] [address] [place], [address] Emergency Department Summary on 09-17-2024 Emergency Department Summary [facility] Medical Records Department [address] [place] [address] Emergency Department Summary 09/17/24 MR#: [id number] Acct: [id number] Name: SPENCER REDDING Rep #: [id number] : 1965 59 From: Marques Peace MD PCP: Dr. Trevor Vieyra MD Status:REG ER Location: ED HPI History of Present Illness Chief Complaint: Chest Pain Narrative Narrative: 59-year-old female past medical history of end-stage renal disease, coronary artery disease and ICD presents with heart palpitations and minimal chest pressure at dialysis today. Started about 2 hours and 20 minutes ago. She was unable to receive her full dialysis, last was on Tuesday, 3 days ago as she usually receives it every Tuesday, Tuesday and Tuesday. She relates history that she had heart palpitations and rapid heart rate a few months ago, just before Leroy. They never found what was going on. She states that EMS had have her do Valsalva maneuvers which alleviated her rapid heart rate. However, they tried this multiple times at dialysis without resolution. 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 [facility] Medical History Polycystic kidney disease Sudden cardiac Hypertriglyceridemia Hyperlipidemia History of torsades de pointes Atherosclerosis of coronary artery of [place] heart without angina pectoris Syncope and collapse Ventricular fibrillation Ischemic cardiomyopathy ESRD (end stage renal disease) on dialysis Nonsustained ventricular tachycardia History of recurrent miscarriages, not currently History of DVT (deep vein thrombosis) Congenital polycystic kidney disease History of allergic rhinitis Obesity Benign essential hypertension Home Medications ???Medication ???Instructions ???Recorded ???Last Taken ???Type sertraline 50 mg tablet 50 mg PO QHS depression 01/19/17 0 03/15/23 History warfarin 1 mg tablet See Rx Instructions PO QHS blood 0 01/19/17 03/15/23 History thinner cholecalciferol (vitamin D3) 25 1,000 unit PO QDAY 10/24/17 History mcg (1,000 unit) tablet vitamin B complex-vitamin C-folic 1 tab PO DAILY 03/13/19 03/15/23 History acid 0.8 mg tablet (Nephro-Yahir) sevelamer carbonate 800 mg tablet 800 mg PO TID 30 days #90 tabs 03/15/23 History belladonna alkaloids-opium 16.2 1 supp ND TID PRN pain 7 days #12 01/30/22 03/15/23 Rx mg-30 mg rectal suppository ea calcium carbonate (Tums) 400 mg PO BID 03/30/22 03/15/23 Hi story nitroglycerin 0.4 mg sublingual 0.4 mg sublingual Q5M PRN Chest 03/15/23 Rx tablet Pain #25 tabs fludrocortisone 0.1 mg tablet 0.1 mg PO DAILY #30 tabs 01/20/23 03/15/23 Rx ipratropium bromide 21 mcg (0.03 2 spray intranasal BID 05/10/23 Un known History %) nasal spray levothyroxine 25 mcg capsule 25 mcg PO DAILY 05/10/23 Unknown H istory zolpidem 5 mg tablet 10 mg PO QHS PRN PRN Insomnia 04/12 08/02 Unknown History midodrine 2.5 mg tablet 5 mg (2 x 2.5 mg) PO TID #90 tabs 06/01/23 Unknown Rx atorvastatin 40 mg tablet 40 mg PO QHS cholesterol #90 tabs 06/04/24 Unknown Rx methylprednisolone 4 mg tablets in See Rx Instructions PO PER PKG D IR 08/21/24 Unknown Rx a dose pack (Medrol (Aime)) #21 tabs digoxin 125 mcg (0.125 mg) tablet 125 mcg PO QODAY #30 tabs 5 Unknown Rx Allergy/AdvReac Type Severity Reaction Status Date / Time amoxicillin Allergy Rash Verified 09/17/24 16:08 doxercalciferol (From Allergy Hives Verified 09/17/24 16:08 Hectorol) etodolac Allergy Rash Verified 09/17/24 16:08 Penicillins (PCN) Allergy Rash Verified 09/17/24 16:08 sulfamethoxazole (From Allergy Rash Verified 09/17/24 16:08 Bactrim) tramadol Allergy Rash Verified 09/17/24 16:08 trimethoprim (From Bactrim) Allergy Rash Verified 09/17/24 16:08 strawberry AdvReac Vomiting Verified 09/17/24 16:08 Family History Father Hypertension Kidney disease Mother Diabetes Surgical History Hx of kidney removal History of implantable cardiac defibrillator (ICD) (11/22/19) History of coronary artery stent placement (04/22/16) fistulogram History of thyroid surgery Social History Smoking Status: Never smoker alcohol intake: never substance use type: does not use diet: other caffeine: No what type of physical activity do you participate in: none seatbelt use: always do you feel safe at home: Yes ROS ROS ED ROS Narrative Constitutional: No fever, no chills. HEENT: No sore throat. No neck pain. No loss of vision. No rhinorrhea. Cardiovascular: Minimal chest discomfort, feels more heart racing and positive heart palpitations and rapid he (more content not included)... Normal [facility] Eosinophil percentageOrdered By: Marques Peace on 09-17-2024 Eosinophils/100 WBC (Bld) 5.2 % High 0-5 [facility] Erythrocyte distribution wid th ratioOrdered By: Marques Peace on 09-17-2024 Erythrocyte distribution width (RBC) [Ratio] 14.8 % High 11.6-14.6 [facility] Erythrocyte distribution wid th standard deviationOrdered By: Marques Peace on 09-17-2024 Erythrocyte distribution width (RBC) [Entitic vol] 51.5 fL High 35.1-43.9 [facility] Erythrocyte distribution width (RBC) [Ratio] 51.5 fl High 35.1-43.9 [facility] Estimation of creatinine anatoliy aranceOrdered By: Marques Peace on 09-17-2024 Estimated Creatinine Clearance Calc 10.10 ml/min Low 50-250 [facility] GFR/1.73 sq M.predicted anay g non-blacks MDRD (S/P/Bld) [Vol rate/Area]Ordered By: Marques Peace on 09-17-2024 Estimated GFR (MDRD) Non-Af Amer 7 Low >60 [facility] Comment on above: mL/min/1.73m2 CKD-EP I Creatinine Equation (2020) Glomerular filtration rate ( GFR) estimation/1.73 sq m using serum, plasma, or whole bOrdered By: Marques Peace on 09-17-2024 GFR/1.73 sq M.predicted among non-blacks MDRD (S/P/Bld) [Vol rate/Area] 7 mL/min/{1.73_m2} Low >60 [facility] Comment on above: mL/min/1.73m2 CKD-EP I Creatinine Equation (2020) Hematocrit Auto (Bld) [Volum e fraction]Ordered By: Marques Peace on 09-17-2024 Hematocrit (Bld) [Volume fraction] 34.0 % Low 37-47 [facility] Hemoglobin measurementOrdere d By: Marques Peace on 09-17-2024 Hemoglobin (Bld) [Mass/Vol] 11.6 g/dL Low 12.0-15.0 [facility] Immature granulocytes/100 WB C Auto (Bld)Ordered By: Marques Peace on 09-17-2024 Immature granulocytes/100 WBC (Bld) 0.200 % 0.0-0.9 [facility] Comment on above: IG% - Immature Granu locytes (promyelocytes, myelocytes and metamyelocytes) > 1% indicates that a LEFT SHIFT is Present. International normalized rat io (INR) calculationOrdered By: Marques Peace on 09-17-2024 INR Coag (Bld) [Relative time] 2.5 {INR} [facility] Laboratory - Chemistry and C hemistry - challengeOrdered By: Marques Peace on 09-17-2024 AST [Catalytic activity/Vol] 25 U/L <32 [facility] Lymphocytes Auto (Unsp spec) [#/Vol]Ordered By: Marques Peace on 09-17-2024 Lymphocytes (Bld) [#/Vol] 1.11 10*3/uL 0.83-4.51 [facility] Lymphocytes/100 WBC Auto (Un sp spec)Ordered By: Marques Peace on 09-17-2024 Lymphocytes/100 WBC (Bld) 18.8 % Low 19-41 [facility] MCV (mean corpuscular volume ) determinationOrdered By: Marques Peace on 09-17-2024 MCV (RBC) [Entitic vol] 96.9 fL 81-99 [facility] Mean corpuscular hemoglobin (MCH) determinationOrdered By: Marques Peace on 09-17-2024 MCH (RBC) [Entitic mass] 33.0 pg High 27.0-32.0 [facility] Mean corpuscular hemoglobin concentration (MCHC) determinationOrdered By: Marques Peace on 09-17-2024 MCHC (RBC) [Mass/Vol] 34.1 g/dL 32-36 [facility] Mean platelet volume determi nationOrdered By: Marques Peace on 09-17-2024 Platelet mean volume (Bld) [Entitic vol] 9.3 fL 6.2-12.0 [facility] Monocyte percentageOrdered B y: Marques Peace on 09-17-2024 Monocytes/100 WBC (Bld) 6.6 % 0-10 [facility] Neutrophil percentageOrdered By: Marques Peace on 09-17-2024 Neutrophils/100 WBC (Bld) 68.7 % 47-70 [facility] Nucleated red blood cell per centageOrdered By: Marques Peace on 09-17-2024 Nucleated RBC/100 WBC (Bld) [Ratio] 0 % 0-5 [facility] Platelet countOrdered By: Alfred Peace on 09-17-2024 Platelets (Bld) [#/Vol] 207 10*3/uL 150-450 [facility] Potassium (Unsp spec) [Mass/ Vol]Ordered By: Marques Peace on 09-17-2024 Potassium [Moles/Vol] 3.5 mmol/L 3.3-5.1 [facility] Comment on above: Hemolysis present, R esults could be affected. Potassium measurement (mass/ volume)Ordered By: Marques Peace on 09-17-2024 Potassium (Unsp spec) [Mass/Vol] 3.5 mmol/L 3.3-5.1 [facility] Comment on above: Hemolysis present, R esults could be affected. Prothrombin Time w/INRon INR Coag (PPP) [Relative time] 2.5 {INR} Normal [facility] Comment on above: Performed By: #### L 100.0100, L300.3900, L500.4050 #### [facility] [address] [place], [address] PT Coag (PPP) [Time] 27.9 s High 11.7-14.9 [facility] Comment on above: Performed By: #### L 100.0100, L300.3900, L500.4050 #### [facility] [address] [place], [address] Prothrombin timeOrdered By: Marques Peace on 09-17-2024 PT Coag (PPP) [Time] 27.9 s High 11.7-14.9 [facility] RBC Auto (Bld) [#/Vol]Ordere d By: Marques Peace on 09-17-2024 RBC (Bld) [#/Vol] 3.51 10*6/uL Low 4.2-5.4 [facility] Serum creatinine measurement (mass/volume)Ordered By: Marques Peace on 09-17-2024 Creatinine [Mass/Vol] 6.01 mg/dL High 0.70-1.20 [facility] Serum globulin measurementOr dered By: Marques Peace on 09-17-2024 Globulin (S) [Mass/Vol] 3.1 g/dL 2.2-4.2 [facility] Serum glucose measurement (m ass/volume)Ordered By: Marques Peace on 09-17-2024 Glucose [Mass/Vol] 93 mg/dL 70-99 [facility] Serum or plasma alanine cervantes otransferase (ALT) measurementOrdered By: Marques Peace on 09-17-2024 ALT [Catalytic activity/Vol] 23 U/L <35 [facility] Serum or plasma albumin destini urement (mass/volume)Ordered By: Marques Peace on 09-17-2024 Albumin [Mass/Vol] 4.5 g/dL 3.4-4.8 [facility] Serum or plasma albumin/glob ulin mass ratioOrdered By: Marques Peace on 09-17-2024 Albumin/Globulin [Mass ratio] 1.4 {ratio} 0.9-2.4 [facility] Serum or plasma alkaline josé miguel sphatase measurementOrdered By: Marques Peace on 09-17-2024 ALP [Catalytic activity/Vol] 96 U/L 35-104 [facility] Serum or plasma calcium destini urement (mass/volume)Ordered By: Marques Peace on 09-17-2024 Calcium [Mass/Vol] 8.5 mg/dL 7.6-11.0 [facility] Serum or plasma urea nitroge n measurement (mass/volume)Ordered By: Marques Peace on 09-17-2024 Urea nitrogen [Mass/Vol] 25 mg/dL High 4-19 [facility] Sodium levelOrdered By: Marques Peace on 09-17-2024 Sodium [Moles/Vol] 139 mmol/L 133-145 [facility] Total proteinOrdered By: Verito Peace on 09-17-2024 Protein [Mass/Vol] 7.6 g/dL 5.9-8.4 [facility] White blood cell (WBC) count Ordered By: Marques Peace on 09-17-2024 WBC (Bld) [#/Vol] 5.9 10*3/uL 4.4-11.0 [facility] International normalized rat io (INR) calculationOrdered By: Trevor Vieyra on 09-11-2024 INR Coag (Bld) [Relative time] 2.2 {INR} [facility] Prothrombin Time w/INRon INR Coag (PPP) [Relative time] 2.2 {INR} Normal [facility] Comment on above: Performed By: #### L 300.0223 #### [facility] [address] [place], [address] PT Coag (PPP) [Time] 25.3 s High 11.7-14.9 [facility] Comment on above: Performed By: #### L 300.3900 #### [facility] [address] [place], [address] Prothrombin timeOrdered By: Trevor Vieyra on 09-11-2024 PT Coag (PPP) [Time] 25.3 s High 11.7-14.9 [facility] International normalized rat io (INR) calculationOrdered By: Trevor Vieyra on 09-04-2024 INR Coag (Bld) [Relative time] 2.1 {INR} [facility] Prothrombin Time w/INRon INR Coag (PPP) [Relative time] 2.1 {INR} Normal [facility] Comment on above: Performed By: #### L 300.3900 #### [facility] [address] [place], [address] PT Coag (PPP) [Time] 23.6 s High 11.7-14.9 [facility] Comment on above: Performed By: #### L 300.3900 #### [facility] [address] [place], [address] Prothrombin timeOrdered By: Trevor Vieyra on 09-04-2024 PT Coag (PPP) [Time] 23.6 s High 11.7-14.9 [facility] Prothrombin Time w/INRon INR Coag (PPP) [Relative time] 2.4 {INR} Normal [facility] Comment on above: Performed By: #### L 100.0100, L300.3900, L500.4050 #### [facility] [address] [place], [address] PT Coag (PPP) [Time] 26.5 s High 11.7-14.9 [facility] Comment on above: Performed By: #### L 100.0100, L300.3900, L500.4054 #### [facility] [address] [place], [address] No Panel InformationOrdered By: Kieran Hampton on 08-21-2024 POC SARS CoV-2 Antigen Negative [facility] Influenza Types A,B Rapid (Clinic) Negative [facility] Urgent Care Visit Reporton 0 08-21-2024 Urgent Care Visit Report [facility] [address], [address] [place] [address] OFFICE VISIT Date of Service: 08/21/24 MR#: [id number] Acct: [id number] Name: SPENCER REDDING Rep #: [id number] : 1965 Provider: GILSON Ku Age/Sex: 58/F Location: [facility] Status: Signed Intake Vital Signs 07/08/24 16:40 08/21/24 08:58 Height 5 ft 2 in BP 118/60 Blood Pressure Location Lt brachial Position Sitting Respiration 12 Pulse 65 Pulse Source NIBP Temp 98.8 F Temp Source Oral Pulse Oximetry (%) 96 Oxygen Delivery Method room air Intake Visit Reasons: ST/COUGH/SINUS COMP/MOHAMUD Chief Complaint: st, cough, sinus congestion, MOHAMUD, BA Allergies amoxicillin Allergy (Verified 08/21/24 08:59) Rash doxercalciferol (From Hectorol) Allergy (Verified 08/21/24 08:59) Hives etodolac Allergy (Verified 08/21/24 08:59) Rash Penicillins (PCN) Allergy (Verified 08/21/24 08:59) Rash sulfamethoxazole (From Bactrim) Allergy (Verified 08/21/24 08:59) Rash tramadol Allergy (Verified 08/21/24 08:59) Rash trimethoprim (From Bactrim) Allergy (Verified 08/21/24 08:59) Rash strawberry Adverse Reaction (Verified 08/21/24 08:59) Vomiting Medications ???Medication ???Instructions ???Recorded ???Confirmed ???Type sertraline 50 mg tablet 50 mg PO QHS depression 01/19/17 0 08/21/24 History warfarin 1 mg tablet See Rx Instructions PO QHS blood 0 01/19/17 08/21/24 History thinner cholecalciferol (vitamin D3) 25 1,000 unit PO QDAY 10/24/17 History mcg (1,000 unit) tablet vitamin B complex-vitamin C-folic 1 tab PO DAILY 03/13/19 08/21/24 History acid 0.8 mg tablet (Nephro-Yahir) sevelamer carbonate 800 mg tablet 800 mg PO TID 30 days #90 tabs 08/21/24 History belladonna alkaloids-opium 16.2 1 supp ND TID PRN pain 7 days #12 01/30/22 08/21/24 Rx mg-30 mg rectal suppository ea calcium carbonate (Tums) 400 mg PO BID 03/30/22 08/21/24 Hi story nitroglycerin 0.4 mg sublingual 0.4 mg sublingual Q5M PRN Chest 08/21/24 Rx tablet Pain #25 tabs fludrocortisone 0.1 mg tablet 0.1 mg PO DAILY #30 tabs 01/20/23 08/21/24 Rx ipratropium bromide 21 mcg (0.03 2 spray intranasal BID 05/10/23 History %) nasal spray levothyroxine 25 mcg capsule 25 mcg PO DAILY 05/10/23 08/21/24 History zolpidem 5 mg tablet 10 mg PO QHS PRN PRN Insomnia 04/1208/21/24 History midodrine 2.5 mg tablet 5 mg (2 x 2.5 mg) PO TID #90 tabs 06/01/23 08/21/24 Rx atorvastatin 40 mg tablet 40 mg PO QHS cholesterol #90 tabs 06/04/24 08/21/24 Rx benzonatate 200 mg capsule 200 mg PO TID PRN cough #20 caps 0 08/21/24 08/21/24 Rx methylprednisolone 4 mg tablets in See Rx Instructions PO PER PKG D IR 08/21/24 08/21/24 Rx a dose pack (Medrol (Aime)) #21 tabs Nurse's Note: Patient here for BA, MOHAMUD, cough, congestion, ST x1 day. Ran rapid covid/flu. PFSH Medical History Polycystic kidney disease Sudden cardiac Hypertriglyceridemia Hyperlipidemia History of torsades de pointes Atherosclerosis of coronary artery of [place] heart without angina pectoris Syncope and collapse Ventricular fibrillation Ischemic cardiomyopathy ESRD (end stage renal disease) on dialysis Nonsustained ventricular tachycardia History of recurrent miscarriages, not currently History of DVT (deep vein thrombosis) Congenital polycystic kidney disease History of allergic rhinitis Obesity Benign essential hypertension Surgical History Hx of kidney removal History of implantable cardiac defibrillator (ICD) (11/22/19) History of coronary artery stent placement (04/22/16) fistulogram History of thyroid surgery Family History Father Hypertension Kidney disease Mother Diabetes Social History Smoking Status: Never smoker alcohol intake: never substance use type: does not use diet: other caffeine: No what type of physical activity do you participate in: none seatbelt use: always do you feel safe at home: Yes HPI HPI Chief Complaint: st, cough, sinus congestion, MOHAMUD, BA Details: SPENCER REDDING, is a 58 F who presents to the office today for initial evaluation in the [facility] for approximately 48-hour history of persistent chills, cough, MOHAMUD, myalgias, fatigue, congestion/ runny nose. Patient notes no complaints of chest pain or shortness of breath or dyspnea on exertion. Several close contacts recently dx???d w/ similar URI complaints. No [id number] taken to assist. No other associated symptoms and no other alleviating/aggravating factors. ROS Const (more content not included)... Normal [facility] OT D/C of Non Returning Pton 08-16-2024 OT D/C of Non Returning Pt [facility] Occupational Therapy [facility] [address] [place] [address] / REHABILITATION SERVICES DISCHARGE SUMMARY MR#: [id number] Acct: [id number] Name: SPENCER REDDING Rep #: [id number] : 1965 58 From: Maday Bush OTR/Valent[place], CHT Referring Dr.: Dr. Trevor Vieyra MD Status: REG R CR Eval Date: Discharge Date: Patient Information Patient Information: SPENCER REDDING was seen in my office for initial evaluation on 02/27/24. The following Plan of Care was established for this patient: POC Established Initial Frequency: 2x /Week Initial Duration: 3 Weeks Anticipated Interventions Anticipated Interventions: A/AAROM/PROM, Strengthening, Triggerpoint Release, Modalities, Orthoses, Joint Protection/Energy Conservation, Ergonomic Education, Education re assistive Equipment, Education re Diagnosis and Home Program Last Seen Last Seen: This patient was last seen in our office 03/27/24. Pertinent comments regarding their Occupational therapy will appear below: Due to time lapse in services pt is d/c at this time. At this point I will be discontinuing this patient from occupational therapy. I would be happy to see this patient again in the future if found appropriate by the physician. Thank you! Maday Bush, CATHRYNR/Valentine, CHT 08/16/24 1022 CC: Dr. Trevor Vieyra MD MK Signed Normal [facility] International normalized rat io (INR) calculationOrdered By: Trevor Vieyra on 08-09-2024 INR Coag (Bld) [Relative time] 1.9 {INR} [facility] Prothrombin Time w/INRon INR Coag (PPP) [Relative time] 1.9 {INR} Normal [facility] Comment on above: Performed By: #### L 100.0100, L300.3900, L500.4050 #### [facility] [address] [place], [address] PT Coag (PPP) [Time] 22.2 s High 11.7-14.9 [facility] Comment on above: Performed By: #### L 100.0100, L300.3900, L500.4050 #### [facility] [address] [place], [address] Prothrombin timeOrdered By: Trevor Vieyra on 08-09-2024 PT Coag (PPP) [Time] 22.2 s High 11.7-14.9 [facility] International normalized rat io (INR) calculationOrdered By: Trevor Vieyra on 07-23-2024 INR Coag (Bld) [Relative time] 2.0 {INR} [facility] Prothrombin Time w/INRon INR Coag (PPP) [Relative time] 2.0 {INR} Normal [facility] Comment on above: Order Comment: Inter face Comments:standing orderOrder Date: 07/23/24Order Info: [id number] - PTComments: standing order Performed By: #### L 100.0100, L300.3900, L500.4050 #### [facility] [address] [place], [place], [id number] PT Coag (PPP) [Time] 22.8 s High 11.7-14.9 [facility] Comment on above: Order Comment: Inter face Comments:standing orderOrder Date: 07/23/24Order Info: [id number] - PTComments: standing order Performed By: #### L 100.0100, L300.3900, L500.4050 #### [facility] [address] [place], [place], [address] Prothrombin timeOrdered By: Trevor Vieyra on 07-23-2024 PT Coag (PPP) [Time] 22.8 s High 11.7-14.9 [facility] Prothrombin Time w/INRon INR Coag (PPP) [Relative time] 2.1 {INR} Normal [facility] Comment on above: Performed By: #### L 300.3900 #### [facility] [address] [place], [address] PT Coag (PPP) [Time] 23.8 s High 11.7-14.9 [facility] Comment on above: Performed By: #### L 300.3900 #### [facility] [address] [place], [address] Office Visiton 07-09-2024 Follow-up visit [id number] Spencer Redding 1965 F Date Provider Department Center 07/09/2024 [id number] VIEYRA [facility] [address] Family History Problem Relation Age of Onset Cancer Mother Kidney disease Brother Kidney disease Father Heart disease Father High Blood Pressure Father Diabetes Mother Family Status - Relation Status Age at Mother Brother Father Level of Service:43721 ND OFFICE/OUTPATIENT ESTABLISHED LOW [facility] 20 MIN Reason for Visit and Comments: Annual Exam [83] Normal [employer] [facility] Progress Noteon 07-09-2024 Progress Note [facility] Cardiology Note Chief Complaint: Chief Complaint Patient presents with Annual Exam History of Present Illness: Spencer Redding is a 58 y.o. female presents for follow-up status post subcutaneous ICD implantation and generator change in the setting of ventricular tachycardia. She also had hypotension and was previously on midodrine and Florinef. As of late, the last 3 to 4 weeks she has been hypertensive. Today 162/70. No trouble at the ICD site. Device interrogations are reviewed demonstrating good sensing and impedance and no significant arrhythmia. Past Medical History: Past Medical History: Diagnosis Date Abnormal EKG CAD (coronary artery disease) Cardiac arrest ([facility]) Chest pain, unspecified CHF (congestive heart failure) ([facility]) ([facility]) Chronic kidney disease Depression DVT (deep venous thrombosis) ([facility]) 2006 Left below knee End stage renal disease on dialysis ([facility]) Endocarditis Hypertension Left ventricular dysfunction Osteoarthritis Presence of stent in coronary artery Ventricular tachycardia Past Surgical History Past Surgical History: Procedure Laterality Date AV FISTULA REPAIR Right 06/24/2015 CARDIAC DEFIBRILLATOR PLACEMENT 06/21/2016 SUBCUTANEOUS IMPLANTABLE CARDIOVERTER DEFIBRILLATOR SYSTEM IMPLANTATION CARDIAC DEFIBRILLATOR PLACEMENT 11/22/2019 SUBCUTANEOUS ICD SYSTEM GENERATOR CHANGE. CARDIAC PROCEDURE Bilateral 04/22/2016 Right and Left coronary angiography CARDIAC PROCEDURE Left 06/17/2016 CORONARY ANGIOPLASTY 04/22/2016 RCA/PDA, LAD. Balloon angioplasty/Stent. CORONARY ANGIOPLASTY WITH STENT PLACEMENT Left 04/21/2016 [facility] DIALYSIS FISTULA CREATION Left 12/23/2015 [place] [facility] DIALYSIS FISTULA CREATION Left 12/26/2006 upper arm DIALYSIS FISTULA CREATION Right 02/20/2015 brachiocephalic NEPHRECTOMY Right 02/2022 OTHER SURGICAL HISTORY removal of nodes x3 Family History Family History Problem Relation Name Age of Onset Cancer Mother Kidney disease Brother Kidney disease Father Heart disease Father High Blood Pressure Father Diabetes Mother Social History Social History Tobacco Use Smoking status: Never Smokeless tobacco: Never Substance Use Topics Alcohol use: No Alcohol/week: 0.0 standard drinks of alcohol Drug use: No Allergies: Allergies Allergen Reactions Doxercalciferol Other reaction(s): Hives, Hives, Other (See Comments), Severe N/V Penicillins Hives and Rash [place] Extract Nausea And Vomiting and Rash Other reaction(s): Vomiting, Vomiting Etodolac Rash Sevelamer Other reaction(s): GI Upset, Nausea, Unknown Sulfamethoxazole-Trimet hoprim Rash Other reaction(s): GI Upset Tramadol Rash Other reaction(s): Intolerance, Nausea Sulfamethoxazole Other reaction(s): Rash Trimethoprim Other reaction(s): Rash Medications: Current Outpatient Medications: atorvastatin (Lipitor) 40 MG tablet, Take 40 mg by mouth Nightly. for cholesterol, Disp: , Rfl: B Wrmhofc-M-Nrbal Acid (RANI-YAHIR PO), Take 1 tablet by mouth in the morning., Disp: , Rfl: calcium carbonate (Tums Ultra) 1000 MG chewable tablet, Chew 1,000 mg in the morning., Disp: , Rfl: cholecalciferol (Vitamin D-3) 50 MCG (2000 UT) capsule, Take by mouth daily., Disp: , Rfl: fluticasone (Flonase) 50 MCG/ACT nasal spray, 1 (ONE) SPRAY(S) TWICE DAILY EACH NOSTRIL, Disp: , Rfl: ipratropium (Atrovent) 0.03 % nasal spray, 1-2 SPRAY(S) EACH NOSTRIL BEFORE BEDTIME AND NEEDEDE EVERY 6 HOURS FOR COUGH, MUCOUS, RUNNY NOSE, Disp: , Rfl: levothyroxine (Synthroid, Levoxyl) 25 MCG tablet, Take 25 mcg by mouth daily., Disp: , Rfl: midodrine (Proamatine) 2.5 MG tablet, Take 2.5 mg by mouth 3 times daily., Disp: , Rfl: oxyCODONE-acetaminophen (Percocet) 5-325 MG tablet, Take 1 tablet by mouth every 6 hours as needed., Disp: , Rfl: sertraline (Zoloft) 50 MG tablet, Take 50 mg by mouth daily., Disp: , Rfl: sevelamer carbonate (Renvela) 800 MG tablet, Take 5 tablets by mouth 3 times daily., Disp: , Rfl: warfarin (Coumadin) 2 MG tablet, Take 2 mg by mouth. Take as directed per After Visit Summary., Disp: , Rfl: warfarin (Coumadin) 5 MG tablet, Take 5 mg by mouth. Take as directed per After Visit Summary., Disp: , Rfl: zolpidem (Ambien) 10 MG tablet, Take 10 mg by mouth Nightly as needed., Disp: , Rfl: Review of Systems: Review of Systems Constitutional: Negative. Negative for activity change, chills, diaphoresis, fatigue and fever. HENT: Negative. Negative for nosebleeds and trouble swallowing. Eyes: Negative. Negative for discharge and visual disturbance. Respiratory: Negative. Negative for apnea, cough, chest tightness, shortness of breath and wheezing. Cardiovascular: Positive for palpitations. Negative for chest pain and leg swelling. Gastrointestinal: Negative. Negative for abdominal distention, abdominal pain, blood in stool, diarrhea, nausea and vomiting. Endocrine: (more content not included)... Normal [facility] 12 Lead EKGon 07-08-2024 12 Lead EKG [facility] Cardiovascular Services [address] [place] [address] 12 Lead EKG 07/08/24 1657 MR#: [id number] Acct: [id number] Name: SPENCER REDDING Rep #: [id number] : 1965 58 From: Ernesto Garvin MD Attending Dr: Status: DEP ER Ordering Dr: Trevor Preston DO Date: 07/08/24 Location: ED Sex: F C Admitted: Test Reason : PALPITATIONS Blood Pressure : */* mmHG Vent. Rate : 77 BPM Atrial Rate : 77 BPM P-R Int : 174 ms QRS Dur : 84 ms QT Int : 468 ms P-R-T Axes : 59 43 64 degrees QTcB Int : 529 ms Normal sinus rhythm Abnormal ECG Confirmed by CALEB DAVIS, ERNESTO ([id number]), sports editor FARHAN AGUILAR ([id number]) on 07/09/2024 11:05:44 AM Referred By: Confirmed By: ERNESTO GARVIN MD 07/09/24 1105 Date Ernesto Garvin MD CC: Dr. Trevor Preston, DO; Dr. Trevor Vieyra MD Signed Normal [facility] Absolute neutrophil countOrd ered By: Trevor Preston on 07-08-2024 Neutrophils (Bld) [#/Vol] 2.3 10*3/uL 2.0-7.7 [facility] Basic Metabolic Profile (BMP )on 07-08-2024 BUN/CRE 2.9 RATIO Low 10-20 [facility] Comment on above: Order Comment: 'TROP ' Serial specimen #1, #2 or #3: 1 Performed By: #### L 501.4020, L500.2500, L100.0100 #### [facility] [address] [place], [address] CA,Total 8.0 mg/dL Low 8.5-10.1 [facility] Comment on above: Order Comment: 'TROP ' Serial specimen #1, #2 or #3: 1 Performed By: #### L 501.4020, L500.2500, L100.0100 #### [facility] [address] [place], [address] Chloride [Moles/Vol] 94 mmol/L Low 98-107 [facility] Comment on above: Order Comment: 'TROP ' Serial specimen #1, #2 or #3: 1 Performed By: #### L 501.4020, L500.2500, L100.0100 #### [facility] [address] [place], [address] CO2 [Moles/Vol] 34.0 mmol/L High 21.0-32.0 [facility] Comment on above: Order Comment: 'TROP ' Serial specimen #1, #2 or #3: 1 Performed By: #### L 501.4020, L500.2500, L100.0100 #### [facility] [address] [place], [address] Creatinine [Mass/Vol] 4.21 mg/dL High 0.55-1.02 [facility] Comment on above: Order Comment: 'TROP ' Serial specimen #1, #2 or #3: 1 Result Comment: The validity of the calculated GFR GFRAA in patients over 70 years has not been determined. Clinical correlation is essential. Performed By: #### L 501.4020, L500.2500, L100.0100 #### [facility] [address] [place], [address] ECRCL 14.48 ml/min Normal [facility] Comment on above: Order Comment: 'TROP ' Serial specimen #1, #2 or #3: 1 Performed By: #### L 501.4020, L500.2500, L100.0100 #### [facility] [address] [place], [address] EST GFR - AA 14 mL/min Low >60 [facility] Comment on above: Order Comment: 'TROP ' Serial specimen #1, #2 or #3: 1 Result Comment: Afri can Indonesian GFR Calc Performed By: #### L 501.4020, L500.2500, L100.0100 #### [facility] [address] [place], [address] GAP 10 Normal 5-15 [facility] Comment on above: Order Comment: 'TROP ' Serial specimen #1, #2 or #3: 1 Performed By: #### L 501.4020, L500.2500, L100.0100 #### [facility] [address] [place], [address] GFR/1.73 sq M.predicted among non-blacks MDRD (S/P/Bld) [Vol rate/Area] 11 mL/min/{1.73_m2} Low >60 [facility] Comment on above: Order Comment: 'TROP ' Serial specimen #1, #2 or #3: 1 Result Comment: Non- GFR Calc Performed By: #### L 501.4020, L500.2500, L100.0100 #### [facility] [address] [place], [address] Glucose [Mass/Vol] 111 mg/dL High 74-106 [facility] Comment on above: Order Comment: 'TROP ' Serial specimen #1, #2 or #3: 1 Result Comment: Fast ing Glucose result from 100 to 125 mg/dL suggests IMPAIRED HOMEOSTASIS per A.D.A. criteria. Performed By: #### L 501.4020, L500.2500, L100.0100 #### [facility] [address] [place], [address] Potassium [Moles/Vol] 3.1 mmol/L Low 3.5-5.1 [facility] Comment on above: Order Comment: 'TROP ' Serial specimen #1, #2 or #3: 1 Performed By: #### L 501.4020, L500.2500, L100.0100 #### [facility] [address] [place], [address] Sodium [Moles/Vol] 138 mmol/L Normal 136-145 [facility] Comment on above: Order Comment: 'TROP ' Serial specimen #1, #2 or #3: 1 Performed By: #### L 501.4020, L500.2500, L100.0100 #### [facility] [address] [place], [address] Urea nitrogen [Mass/Vol] 12 mg/dL Normal 7-18 [facility] Comment on above: Order Comment: 'TROP ' Serial specimen #1, #2 or #3: 1 Performed By: #### L 501.4020, L500.2500, L100.0100 #### [facility] [address] [place], [address] Basophil percentageOrdered B y: Trevor Preston on 07-08-2024 Basophils/100 WBC (Bld) 1.2 % High 0-1 [facility] Blood urea nitrogen (BUN)/cr eatinine ratioOrdered By: Trevor Preston on 07-08-2024 Urea nitrogen/Creatinine [Mass ratio] 2.9 mg/mg Low 10-20 [facility] CBC W/Diff, Automatedon - Absolute Lymph 0.87 X10 3/uL Normal 0.83-4.51 [facility] Comment on above: Performed By: #### L 501.4020, L500.2500, L100.0100 #### [facility] [address] [place], [address] Absolute Neut 2.3 X10 3/uL Normal 2.0-7.7 [facility] Comment on above: Performed By: #### L 501.4020, L500.2500, L100.0100 #### [facility] [address] [place], [address] Basophils/100 WBC (Bld) 1.2 % High 0-1 [facility] Comment on above: Performed By: #### L 501.4020, L500.2500, L100.0100 #### [facility] [address] [place], [address] Eosinophils/100 WBC (Bld) 13.0 % High 0-5 [facility] Comment on above: Performed By: #### L 501.4020, L500.2500, L100.0100 #### [facility] [address] [place], [address] Erythrocyte distribution width (RBC) [Ratio] 15.9 % High 11.6-14.6 [facility] Comment on above: Performed By: #### L 501.4020, L500.2500, L100.0100 #### [facility] [address] [place], [address] Hematocrit (Bld) [Volume fraction] 32.3 % Low 37-47 [facility] Comment on above: Performed By: #### L 501.4020, L500.2500, L100.0100 #### [facility] [address] [place], [address] Hemoglobin (Bld) [Mass/Vol] 10.7 g/dL Low 12.0-15.0 [facility] Comment on above: Performed By: #### L 501.4020, L500.2500, L100.0100 #### [facility] [address] [place], [address] IG% 0.200 Normal 0.0-0.9 [facility] Comment on above: Result Comment: IG% - Immature Granulocytes (promyelocytes, myelocytes and metamyelocytes) > 1% indicates that a LEFT SHIFT is Present. Performed By: #### L 501.4020, L500.2500, L100.0100 #### [facility] [address] [place], [address] Lymphocytes/100 WBC (Bld) 21.0 % Normal 19-41 [facility] Comment on above: Performed By: #### L 501.4020, L500.2500, L100.0100 #### [facility] [address] [place], [address] MCH (RBC) [Entitic mass] 30.9 pg Normal 27.0-32.0 [facility] Comment on above: Performed By: #### L 501.4020, L500.2500, L100.0100 #### [facility] [address] [place], [address] MCHC (RBC) [Mass/Vol] 33.1 g/dL Normal 32-36 [facility] Comment on above: Performed By: #### L 501.4020, L500.2500, L100.0100 #### [facility] [address] [place], [address] MCV (RBC) [Entitic vol] 93.4 fL Normal 81-99 [facility] Comment on above: Performed By: #### L 501.4020, L500.2500, L100.0100 #### [facility] [address] [place], [address] Monocytes/100 WBC (Bld) 8.2 % Normal 0-10 [facility] Comment on above: Performed By: #### L 501.4020, L500.2500, L100.0100 #### [facility] [address] [place], [address] Neutrophils/100 WBC (Bld) 56.4 % Normal 47-70 [facility] Comment on above: Performed By: #### L 501.4020, L500.2500, L100.0100 #### [facility] [address] [place], [address] Nucleated RBC (Bld) [#/Vol] 0 10*3/uL Normal 0-5 [facility] Comment on above: Performed By: #### L 501.4020, L500.2500, L100.0100 #### [facility] [address] [place], [address] Platelet mean volume (Bld) [Entitic vol] 9.2 fL Normal 6.2-12.0 [facility] Comment on above: Performed By: #### L 501.4020, L500.2500, L100.0100 #### [facility] [address] [place], [address] Platelets (Bld) [#/Vol] 224 10*3/uL Normal 150-450 [facility] Comment on above: Performed By: #### L 501.4020, L500.2500, L100.0100 #### [facility] [address] [place], [address] RBC (Bld) [#/Vol] 3.46 10*6/uL Low 4.2-5.4 [facility] Comment on above: Performed By: #### L 501.4020, L500.2500, L100.0100 #### [facility] [address] [place], [address] RDW SD 52.8 fl High 35.1-43.9 [facility] Comment on above: Performed By: #### L 501.4020, L500.2500, L100.0100 #### [facility] [address] [place], [address] WBC (Bld) [#/Vol] 4.1 10*3/uL Low 4.4-11.0 [facility] Comment on above: Performed By: #### L 501.4020, L500.2500, L100.0100 #### [facility] [address] [place], [address] Carbon dioxide measurementOr dered By: Trevor Preston on 07-08-2024 CO2 [Moles/Vol] 34.0 mmol/L High 21.0-32.0 [facility] Chest PA and Lateralon 07-08 Chest PA and Lateral [facility] Imaging Services [address] [place] [address] Chest PA and Lateral MR#: [id number] Acct: [id number] Name: SPENCER REDDING Rep #: [id number] : 1965 F 58 From: Maicol Martinez PCP: Dr. Trevor Vieyra MD Status: REG ER Study: Chest PA and Lateral Date of Exam: 07/08/24 Exam# [id number] Ordering Dr: [place] [id number] STUDY: XR Chest 2 Views 07/08/2024 5:50 PM REASON FOR EXAM: Female, 58 years old. Palpitations COMPARISON: 03.16.23 TECHNIQUE: XR Chest 2 Views FINDINGS: There is no demonstrated pleural abnormality. Left axillary stent graft. Left-sided battery pack. Enlarged heart size. Normal mediastinum. Normal ana. Prominent appearing increased interstitial lung markings. Normal visualized pulmonary arteries. There is atherosclerotic calcification of the aortic arch with tortuosity. There are diffuse degenerative changes of the visualized thoracic spine. There is degenerative osteoarthritis of the bilateral shoulders. There are no acute findings of the upper abdomen. RAD/Chest PA and Lateral IMPRESSION: There are no acute findings. Electronically Signed: Maicol Rutherford MD at 18:19 EST Reading Location ID and State: [facility] / [place] , Service support , CC: Dr. Trevor Preston DO; Dr. 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 Trevor Vieyra MD Status:DEP ER Location: ED HPI History of Present Illness Chief Complaint: Palpitations Informant: patient Onset/Context/Timing Onset: Today Context: Sudden Onset Timing: Intermittent and Lasts (Approximately 20 minutes) Quality: Racing, heaviness Location: Chest Worsened by: Nothing Relieved by: Valsalva maneuver Narrative Narrative: Patient presents with palpitations that began today. Patient states she was towards the end of her dialysis when she felt her heart racing. Patient states she was having some heaviness in her chest at that time. Patient states she completed her dialysis. Patient states that EMS noted she was in A-fib with RVR. EMS had the patient perform a Valsalva maneuver which resolved her symptoms. Currently, patient denies any palpitations, chest pain, or shortness of breath. Patient denies any recent fevers or chills. [facility] Medical History Polycystic kidney disease Sudden cardiac Hypertriglyceridemia Hyperlipidemia History of torsades de pointes Atherosclerosis of coronary artery of [place] heart without angina pectoris Syncope and collapse Ventricular fibrillation Ischemic cardiomyopathy ESRD (end stage renal disease) on dialysis Nonsustained ventricular tachycardia History of recurrent miscarriages, not currently History of DVT (deep vein thrombosis) Congenital polycystic kidney disease History of allergic rhinitis Obesity Benign essential hypertension Home Medications ???Medication ???Instructions ???Recorded ???Last Taken ???Type sertraline 50 mg tablet 50 mg PO QHS depression 01/19/17 03/15/23 History warfarin 1 mg tablet See Rx Instructions PO QHS blood 01/19/17 03/15/23 History thinner cholecalciferol (vitamin D3) 25 1,000 unit PO QDAY 10/24/17 03/15/23 History mcg (1,000 unit) tablet vitamin B complex-vitamin C-folic 1 tab PO DAILY 03/13/19 03/15/23 History acid 0.8 mg tablet (Nephro-Yahir) sevelamer carbonate 800 mg tablet 800 mg PO TID 30 days #90 tabs 06/11/21 03/15/23 History belladonna alkaloids-opium 16.2 1 supp ND TID PRN pain 7 days #12 01/30/22 03/15/23 Rx mg-30 mg rectal suppository ea calcium carbonate (Tums) 400 mg PO BID 03/30/22 03/15/23 History nitroglycerin 0.4 mg sublingual 0.4 mg sublingual Q5M PRN Chest 10/14/22 03/15/23 Rx tablet Pain #25 tabs fludrocortisone 0.1 mg tablet 0.1 mg PO DAILY #30 tabs 01/20/23 03/15/23 Rx ipratropium bromide 21 mcg (0.03 2 spray intranasal BID 05/10/23 Unknown History %) nasal spray levothyroxine 25 mcg capsule 25 mcg PO DAILY 05/10/23 Unknown History zolpidem 5 mg tablet 10 mg PO QHS PRN PRN Insomnia 05/10/23 Unknown History midodrine 2.5 mg tablet 5 mg (2 x 2.5 mg) PO TID #90 tabs 06/01/23 Unknown Rx atorvastatin 40 mg tablet 40 mg PO QHS cholesterol #90 tabs 06/04/24 Unknown Rx Allergy/AdvReac Type Severity Reaction Status Date / Time amoxicillin Allergy Rash Verified 05/10/23 10:33 doxercalciferol (From Allergy Hives Verified 05/10/23 10:33 Hectorol) etodolac Allergy Rash Verified 05/10/23 10:33 Penicillins (PCN) Allergy Rash Verified 05/10/23 10:33 sulfamethoxazole (From Allergy Rash Verified 05/10/23 10:33 Bactrim) tramadol Allergy Rash Verified 05/10/23 10:33 trimethoprim (From Bactrim) Allergy Rash Verified 05/10/23 10:33 strawberry AdvReac Vomiting Verified 05/10/23 10:33 Family History Father Hypertension Kidney disease Mother Diabetes Surgical History Hx of kidney removal History of implantable cardiac defibrillator (ICD) (11/22/19) History of coronary artery stent placement (04/22/16) fistulogram History of thyroid surgery Social History Smoking Status: Never smoker alcohol intake: never substance use type: does not use diet: other caffeine: No what type of physical activity do you participate in: none seatbelt use: always do you feel safe at home: Yes ROS ROS ED Constitutional Constitutional ED: Denies chills or fever(s) Eyes Eyes: Denies blurry vision or change in vision ENT ENT ED: Denies rhinorrhea or sore throat Cardiovascular Cardiovascular: Reports chest pain and palpitations Respiratory/Chest Respiratory/Chest: Denies cough or dyspnea Gastrointestinal Gastrointestinal: Denies nausea or vomiting Genitourinary Genitourinary ED: Denies dysuria or hematuria Musculoske (more content not included)... Normal [facility] Eosinophil percentageOrdered By: Trevor Preston on 07-08-2024 Eosinophils/100 WBC (Bld) 13.0 % High 0-5 [facility] Erythrocyte distribution wid th ratioOrdered By: Trevor Preston on 07-08-2024 Erythrocyte distribution width (RBC) [Ratio] 15.9 % High 11.6-14.6 [facility] Erythrocyte distribution wid th standard deviationOrdered By: Trevor Preston on 07-08-2024 Erythrocyte distribution width (RBC) [Entitic vol] 52.8 fL High 35.1-43.9 [facility] Estimated glomerular filtrat ion rate (GFR) AmericanOrdered By: Trevor Preston on 07-08-2024 Estimated GFR (MDRD) Amer 14 mL/min Low >60 [facility] Comment on above: GFR Calc Estimation of creatinine anatoliy aranceOrdered By: Trevor Preston on 07-08-2024 Estimated Creatinine Clearance Calc 14.48 ml/min [facility] Glomerular filtration rate ( GFR) estimationOrdered By: Trevor Preston on 07-08-2024 Estimated GFR (MDRD) Non-Af Amer 11 mL/min Low >60 [facility] Comment on above: Non- GFR Calc Glucose measurementOrdered B y: Trevor Prestno on 07-08-2024 Glucose [Mass/Vol] 111 mg/dL High 74-106 [facility] Comment on above: Fasting Glucose resu lt from 100 to 125 mg/dL suggests IMPAIRED HOMEOSTASIS per A.D.A. criteria. Hematocrit Auto (Bld) [Volum e fraction]Ordered By: Trevor Preston on 07-08-2024 Hematocrit (Bld) [Volume fraction] 32.3 % Low 37-47 [facility] Hemoglobin measurementOrdere d By: Trevor Preston on 07-08-2024 Hemoglobin (Bld) [Mass/Vol] 10.7 g/dL Low 12.0-15.0 [facility] Immature granulocytes/100 WB C Auto (Bld)Ordered By: Trevor Preston on 07-08-2024 Immature granulocytes/100 WBC (Bld) 0.200 % 0.0-0.9 [facility] Comment on above: IG% - Immature Granu locytes (promyelocytes, myelocytes and metamyelocytes) > 1% indicates that a LEFT SHIFT is Present. L501.4020on 07-08-2024 TROPONIN-I HS 42 pg/mL Normal 3.0-54.0 [facility] Comment on above: Order Comment: 'TROP ' Serial specimen #1, #2 or #3: 1 Result Comment: Plea se Note: New Test Units and Gender Specific Reference Ranges. For more information see Policy Stat Procedure [place] High Sensitivity Troponin (TNIH) and attachments. Performed By: #### L 501.4020, L500.2500, L100.0100 #### [facility] [address] [place], [place], [address] Lymphocytes Auto (Unsp spec) [#/Vol]Ordered By: Trevor Preston on 07-08-2024 Lymphocytes (Bld) [#/Vol] 0.87 10*3/uL 0.83-4.51 [facility] Lymphocytes/100 WBC Auto (Un sp spec)Ordered By: Trevor Preston on 07-08-2024 Lymphocytes/100 WBC (Bld) 21.0 % 19-41 [facility] MCV (mean corpuscular volume ) determinationOrdered By: Trevor Preston on 07-08-2024 MCV (RBC) [Entitic vol] 93.4 fL 81-99 [facility] Mean corpuscular hemoglobin (MCH) determinationOrdered By: Trevor Preston on 07-08-2024 MCH (RBC) [Entitic mass] 30.9 pg 27.0-32.0 [facility] Mean corpuscular hemoglobin concentration (MCHC) determinationOrdered By: Trevor Preston on 07-08-2024 MCHC (RBC) [Mass/Vol] 33.1 g/dL 32-36 [facility] Mean platelet volume determi nationOrdered By: Trevor Preston on 07-08-2024 Platelet mean volume (Bld) [Entitic vol] 9.2 fL 6.2-12.0 [facility] Monocyte percentageOrdered B y: Trevor Preston on 07-08-2024 Monocytes/100 WBC (Bld) 8.2 % 0-10 [facility] Neutrophil percentageOrdered By: Trevor Preston on 07-08-2024 Neutrophils/100 WBC (Bld) 56.4 % 47-70 [facility] Nucleated red blood cell per centageOrdered By: Trevor Preston on 07-08-2024 Nucleated RBC/100 WBC (Bld) [Ratio] 0 % 0-5 [facility] Platelet countOrdered By: Adalberto Preston on 07-08-2024 Platelets (Bld) [#/Vol] 224 10*3/uL 150-450 [facility] Potassium measurementOrdered By: Trevor Preston on 07-08-2024 Potassium [Moles/Vol] 3.1 mmol/L Low 3.5-5.1 [facility] RBC Auto (Bld) [#/Vol]Ordere d By: Trevor Preston on 07-08-2024 RBC (Bld) [#/Vol] 3.46 10*6/uL Low 4.2-5.4 [facility] Serum anion gap measurementO rdered By: Trevor Preston on 07-08-2024 Anion gap [Moles/Vol] 10 mmol/L 5-15 [facility] Serum or plasma calcium destini urement (mass/volume)Ordered By: Trevor Preston on 07-08-2024 Calcium [Mass/Vol] 8.0 mg/dL Low 8.5-10.1 [facility] Serum or plasma creatinine m easurement (mass/volume)Ordered By: Trevor Preston on 07-08-2024 Creatinine [Mass/Vol] 4.21 mg/dL High 0.55-1.02 [facility] Comment on above: The validity of the calculated GFR & GFRAA in patients over 70 years has not been determined. Clinical correlation is essential. Serum or plasma urea nitroge n measurement (mass/volume)Ordered By: Trevor Preston on 07-08-2024 Urea nitrogen [Mass/Vol] 12 mg/dL 7-18 [facility] Sodium levelOrdered By: Trevor Preston on 07-08-2024 Sodium [Moles/Vol] 138 mmol/L 136-145 [facility] Troponin IOrdered By: Trevor wick on 07-08-2024 Troponin I High Sensitivity 42 pg/mL 3.0-54.0 [facility] Comment on above: Please Note: New Chandrika t Units and Gender Specific Reference Ranges. For more information see Policy Stat Procedure [facility] High Sensitivity Troponin (TNIH) and attachments. White blood cell (WBC) count Ordered By: Trevor Preston on 07-08-2024 WBC (Bld) [#/Vol] 4.1 10*3/uL Low 4.4-11.0 [facility] International normalized rat io (INR) calculationOrdered By: Trevor Vieyra on 07-05-2024 INR Coag (Bld) [Relative time] 1.8 {INR} [facility] Prothrombin Time w/INRon INR Coag (PPP) [Relative time] 1.8 {INR} Normal [facility] Comment on above: Performed By: #### L 100.0100, L300.3900, L500.4050 #### [facility] [address] [place], [address] PT Coag (PPP) [Time] 21.0 s High 11.7-14.9 [facility] Comment on above: Performed By: #### L 100.0100, L300.3900, L500.4050 #### [facility] [address] [place], [address] Prothrombin timeOrdered By: Trevor Vieyra on 07-05-2024 PT Coag (PPP) [Time] 21.0 s High 11.7-14.9 [facility] Prothrombin Time w/INRon INR Coag (PPP) [Relative time] 1.9 {INR} Normal [facility] Comment on above: Order Comment: Order Date: 05/10/24Order Info: [id number] - PT Performed By: #### L 300.3900 #### [facility] [address] [place], [address] PT Coag (PPP) [Time] 21.2 s High 11.7-14.9 [facility] Comment on above: Order Comment: Order Date: 05/10/24Order Info: [id number] - PT Performed By: #### L 300.3900 #### [facility] [address] [place], [address] ([address] International normalized rat io (INR) calculationOrdered By: Trevor Vieyra on 06-06-2024 INR Coag (Bld) [Relative time] 1.3 {INR} [facility] Prothrombin Time w/INRon INR Coag (PPP) [Relative time] 1.3 {INR} Normal [facility] Comment on above: Order Comment: Order Date: 05/10/24Order Info: [id number] - PT Performed By: #### L 300.3900 #### [facility] [address] [place], [place], [address] ([address] PT Coag (PPP) [Time] 16.6 s High 11.7-14.9 [facility] Comment on above: Order Comment: Order Date: 05/10/24Order Info: [id number] - PT Performed By: #### L 300.3900 #### [facility] [address] [place], [place], [id number] ([address] Prothrombin timeOrdered By: Trevor Vieyra on 06-06-2024 PT Coag (PPP) [Time] 16.6 s High 11.7-14.9 [facility] Prothrombin Time w/INRon INR Coag (PPP) [Relative time] 2.1 {INR} Normal [facility] Comment on above: Order Comment: Order Date: 05/04/24Order Info: [id number] - PTComments: STANDING ORDER NEEDED X1 YEAR Performed By: #### L 300.3900 #### [facility] [address] [place], [address] PT Coag (PPP) [Time] 23.7 s High 11.7-14.9 [facility] Comment on above: Order Comment: Order Date: 05/04/24Order Info: [id number] - PTComments: STANDING ORDER NEEDED X1 YEAR Performed By: #### L [id number] #### [facility] [address] [place], [address] Laboratory - CoagulationOrde red By: Trevor Vieyra on 10-28-2023 INR Coag (Bld) [Relative time] 2.3 {INR} [facility] PT Coag (PPP) [Time] 25.5 s 11.7-14.9 [facility] INR in Blood by Coagulation assayOrdered By: Trevor Vieyra on 06-23-2023 INR Coag (Bld) [Relative time] 2.6 {INR} [facility] - Chemistry and C hemistry - challengeOrdered By: Trevor Vieyra on 06-23-2023 Free T4 [Mass/Vol] 0.81 ng/dL 0.76-1.46 [facility] Laboratory - CoagulationOrde red By: Trevor Vieyra on 06-23-2023 PT Coag (PPP) [Time] 27.9 s 11.7-14.9 [facility] No Panel InformationOrdered By: Trevor Vieyra on 06-23-2023 Free Triiodothyronine (T3) pg/dL 2.6 pg/mL 2.18-3.98 [facility] Thyroid Stimulating Hormone (TSH) 1.43 uIU/mL 0.358-3.74 [facility] CNOVon 04-28-2023 CNOV Office Visit (UROCAMILA ) SPENCER REDDING ([id number]) 1965 F Date Time Provider Department 04/28/23 11:15 AM CHRISTIANO HUNTLEY During your visit today, we recorded the following information about you: Christiano Huntley MD 04/28/2023 11:20 AM Signed HISTORY OF PRESENT ILLNESS: Spencer Redding is a 57 year old female with complaints of cystic kidneys status post left radical nephrectomy. She is recovered well from her procedure 02/28/2023: RAL Left Radical Nephrectomy: PCKD 02/22/2022: RAL Right Radical Nephrectomy: PCKD A. Kidney, right, radical nephrectomy: - Benign kidney with histologic changes of end stage renal disease, innumerable cysts, severe nephrocalcinosis and calcific arteriosclerosis, clinically polycystic kidney disease. - Unremarkable margins of the resection. 01/28/2022: Cystoscopy: Sunset appearing bladder, blood emanating from the right ureteral orifice 02/15/2020: Cystoscopy and pyelograms: (-). 2017: Coronary stents x 5 09/02/2015: Cystoscopy and pyelograms: Negative 06/27/2015: Right upper extremity fistula 07/11/2007: Left upper extremity fistula 2003: DVT without PE No results found for this basename: uglucpoc,ubilipoc,uketo npoc,usgpoc,uhbpoc,uphp oc,upropoc,uuropoc,unit poc,uwbcpo- c,ucolpoc,uclarpoc @[email or web address]@ ALLERGIES ALLERGIES Allergen Reactions Penicillins Hives, Rash [place] Vomiting, Rash Etodolac Rash Sevelamer GI Upset Sulfamethoxazole-Tr* GI Upset, Rash Tramadol Intolerance, Rash MEDICATIONS: fludrocortisone (FLORINEF) 0.1 mg tablet Take 0.1 mg by mouth once daily. RANI-YAHIR 0.8 mg tab Take 1 tablet by mouth every afternoon. calcium carbonate (TUMS ULTRA) 400 mg (1,000 mg) chew Take 1,000 mg by mouth once daily. gabapentin (NEURONTIN) 600 mg tablet Take 600 mg by mouth daily at bedtime. (Patient not taking: Reported on 02/18/2023) sevelamer carbonate (RENVELA) 800 mg tablet Take 5 tablets by mouth three times daily with meals. Cholecalciferol, Vitamin D3, 50 mcg (2,000 unit) cap Take by mouth once daily. zolpidem (AMBIEN) 5 mg tablet Take 10 mg by mouth at bedtime as needed. nitroglycerin sublingual (NITROQUICK) 0.4 mg SL tablet DISSOLVE 1 TAB UNDER THE TONGUE EVERY 5 MINUTES NEEDED FOR CHEST PAIN atorvastatin (LIPITOR) 40 mg tablet TAKE 1 TABLET BY MOUTH EVERY DAY AT BEDTIME FOR CHOLESTEROL metoprolol tartrate, short acting, (LOPRESSOR) 25 mg tablet Take 25 mg by mouth once daily. (Patient not taking: Reported on 02/18/2023) warfarin (COUMADIN) 7.5 mg tablet Take 7 mg by mouth once daily. sertraline (ZOLOFT) 50 mg tablet Take 50 mg by mouth once daily. HISTORIES PAST MEDICAL HISTORY Diagnosis Date AICD (automatic cardioverter/defibrilla tor) present 06/2016 Anxiety Arthritis Blood clot in vein lower left leg CAD (coronary artery disease) s/p cardiac stent x6 2015; last cardiology visit 12/25/[address] Garvin; pt taking Plavix Chronic kidney disease Delayed emergence from general anesthesia Depression DVT (deep vein thrombosis) in 2006 left below the knee ESRD (end stage renal disease) on dialysis (HCC) MWF/[facility] [place] 025 [id number] [id number] History of coronary artery stent placement 04/22/2016 Hx of cardiovascular stress test 2016 negative for ischemia, EF 70% Hx of echocardiogram 02/2017 EF 60% moderate LVH, no valvular abnormalities- received from [facility]- on hard chart Hx of sudden cardiac successfully resuscitated Hyperlipidemia Hypertension Osteoarthritis of multiple joints Polycystic kidney disease Thyroid disease Ventricular tachycardia (HCC) S/P defibrillator 2015 PAST SURGICAL HISTORY Procedure Laterality Date AV FISTULA OR GRAFT VENOUS Left 2016 AV FISTULA REPAIR HX Right 06/24/2015 CYST/MOLE REMOVAL benign- on neck CYSTOSCOPY 02/2020 RETROPYELOGRAM FISTULA Left 08/2016 dialysis FISTULA Right 2014 dialysis LEFT HEART CATH,PERCUTANEOUS 04/22/2016 PTCA stent RCA/PDA, LAD PAST SURGICAL HISTORY OF 06/2016 Defibrillator placed 2015; generator change 11/2019 PAST SURGICAL HISTORY OF 02/22/2022 obotic Assisted Laparoscopic Right Radical Nephrectomy, robotic renal cyst decortication Dr. Huntley PICC LINE PRQ CARDIAC STENT W/ANGIO 1 VSL 2015 6 cardic stents THYROIDECTOMY TOTAL/COMPLETE FAMILY HISTORY Problem Relation Age of Onset Diabetes Mother Cancer Mother Heart Father Kidney Disease Father other (HTN) Father Diabetes Sister Heart Brother Kidney Disease Brother Diabetes Maternal Grandmother Social History Tobacco Use Smoking status: Never Smokeless tobacco: Never Vaping Use Vaping Use: Never used Substance Use Topics Alcohol use: Not Currently Drug use: Never REVIEW OF SYSTEMS: Const: Well appearing, in no acute distress, well-hydrated, well-nourished, alert, awake, oriented to time, plac (more content not included)... Normal [facility] Iron measurement (mass/mass) Ordered By: Trevor Vieyra on 04-07-2023 Iron (Unsp spec) [Mass/Mass] 118 ug/dL 50-170 [facility] Laboratory - Chemistry and C hemistry - challengeOrdered By: Trevor Vieyra on 04-07-2023 Cobalamin (Vitamin B12) [Mass/Vol] 883 pg/mL 211-911 [facility] Free T4 [Mass/Vol] 0.66 ng/dL 0.76-1.46 [facility] No Panel InformationOrdered By: Trevor Vieyra on 04-07-2023 Free Triiodothyronine (T3) pg/dL 2.3 pg/mL 2.18-3.98 [facility] Thyroid Stimulating Hormone (TSH) 3.92 uIU/mL 0.358-3.74 [facility] Serum Treponema species anti body detectionOrdered By: Trevor Vieyra on 04-07-2023 Treponema sp Ab Ql (S) Non-Reactive [facility] Serum or plasma ferritin anthony surement (mass/volume)Ordered By: Trevor Vieyra on 04-07-2023 Ferritin [Mass/Vol] 292 ng/mL 8-252 [facility] Serum or plasma folate measu rement (mass/volume)Ordered By: Trevor Vieyra on 04-07-2023 Folate [Mass/Vol] 19.30 ng/mL 3.1-55.4 [facility] Serum or plasma zinc measure ment (mass/volume)Ordered By: Trevor Vieyra on 04-07-2023 Zinc [Mass/Vol] 68 ug/dL 44-115 [facility] Comment on above: Detection Limit = 5P erformed at: [facility] [id number] Director: Gloria Singer MD, Phone: [phone] INR in Blood by Coagulation assayOrdered By: Trevor Vieyra on 03-31-2023 INR Coag (Bld) [Relative time] 2.0 {INR} [facility] - CoagulationOrde red By: Trevor Vieyra on 03-31-2023 PT Coag (PPP) [Time] 22.4 s 11.7-14.9 [facility] Absolute lymphocyte countOrd ered By: Salas Basilio on 03-16-2023 Lymphocytes Auto (Unsp spec) [#/Vol] 0.73 10*3/uL 0.83-4.51 [facility] Basophil percentageOrdered B y: Salas Basilio on 03-16-2023 Basophils/100 WBC (Bld) 0.9 % 0-1 [facility] Chloride [Moles/Vol] 98 mmol/L 98-107 [facility] Eosinophils/100 WBC (Bld) 10.2 % 0-5 [facility] Glucose [Mass/Vol] 108 mg/dL 74-106 [facility] Comment on above: Fasting Glucose resu lt from 100 to 125 mg/dL suggests IMPAIRED HOMEOSTASIS per A.D.A. criteria. Neutrophils (Bld) [#/Vol] 5.0 10*3/uL 2.0-7.7 [facility] Neutrophils/100 WBC (Bld) 73.2 % 47-70 [facility] Potassium [Moles/Vol] 4.4 mmol/L 3.5-5.1 [facility] Sodium [Moles/Vol] 135 mmol/L 136-145 [facility] WBC (Bld) [#/Vol] 6.8 10*3/uL 4.4-11.0 [facility] Blood erythrocytes count (nu mber/volume)Ordered By: Salas Basilio on 03-16-2023 RBC (Bld) [#/Vol] 4.59 10*6/uL 4.2-5.4 [facility] Blood hemoglobin measurement (mass/volume)Ordered By: Salas Basilio on 03-16-2023 Hemoglobin (Bld) [Mass/Vol] 11.8 g/dL 12.0-15.0 [facility] Blood lymphocytes/100 leukoc ytesOrdered By: Salas Basilio on 03-16-2023 Lymphocytes/100 WBC (Bld) 10.8 % 19-41 [facility] Blood monocytes/100 leukocyt esOrdered By: Salas Basilio on 03-16-2023 Monocytes/100 WBC (Bld) 4.6 % 0-10 [facility] Blood platelet mean volumeOr dered By: Salas Basilio on 03-16-2023 Platelet mean volume (Bld) [Entitic vol] 9.0 fL 6.2-12.0 [facility] Determination of erythrocyte mean corpuscular volume (MCV)Ordered By: Salas Basilio on 03-16-2023 MCV (RBC) [Entitic vol] 83.9 fL 81-99 [facility] Hematocrit Auto (Bld) [Volum e fraction]Ordered By: Salas Basilio on 03-16-2023 Hematocrit (Bld) [Volume fraction] 38.5 % 37-47 [facility] INR in Blood by Coagulation assayOrdered By: Salas Basilio on 03-16-2023 INR Coag (Bld) [Relative time] 2.6 {INR} [facility] Laboratory - Chemistry and C hemistry - challengeOrdered By: Salas Basilio on 03-16-2023 CO2 [Moles/Vol] 30.0 mmol/L 21.0-32.0 [facility] Magnesium [Mass/Vol] 2.4 mg/dL 1.6-2.6 [facility] Natriuretic peptide B (Bld) [Mass/Vol] 456.7 pg/mL 0-100 [facility] Urea nitrogen/Creatinine [Mass ratio] 3.4 mg/mg 10-20 [facility] Laboratory - CoagulationOrde red By: Salas Basilio on 03-16-2023 PT Coag (PPP) [Time] 28.3 s 11.7-14.9 [facility] Laboratory - Hematology and Cell countsOrdered By: Salas Basilio on 03-16-2023 Erythrocyte distribution width (RBC) [Entitic vol] 53.7 fL 35.1-43.9 [facility] Erythrocyte distribution width (RBC) [Ratio] 17.8 % 11.6-14.6 [facility] Immature granulocytes/100 WBC (Bld) 0.300 % 0.0-0.9 [facility] Comment on above: IG% - Immature Granu locytes (promyelocytes, myelocytes and metamyelocytes) > 1% indicates that a LEFT SHIFT is Present. MCH (RBC) [Entitic mass] 25.7 pg 27.0-32.0 [facility] Nucleated RBC/100 WBC (Bld) [Ratio] 0 % 0-5 [facility] ([facility]BC) [Mass/Vol]Or dered By: Salas Basilio on 03-16-2023 MCHC (RBC) [Mass/Vol] 30.6 g/dL 32-36 [facility] No Panel InformationOrdered By: Salas Basilio on 03-16-2023 Troponin I High Sensitivity 27 pg/mL 3.0-54.0 [facility] Comment on above: Please Note: New Chandrika t Units and Gender Specific Reference Ranges. For more information see Policy Stat Procedure [facility] High Sensitivity Troponin (TNIH) and attachments. Estimated Creatinine Clearance Calc 6.26 ml/min [facility] Estimated GFR (MDRD) Amer 7 mL/min >60 [facility] Comment on above: GFR Calc Estimated GFR (MDRD) Non-Af Amer 6 mL/min >60 [facility] Comment on above: Non- GFR Calc Platelets bldOrdered By: Esteban Basilio on 03-16-2023 Platelets (Bld) [#/Vol] 300 10*3/uL 150-450 [facility] Serum or plasma calcium destini urement (mass/volume)Ordered By: Salas Basilio on 03-16-2023 Calcium [Mass/Vol] 9.1 mg/dL 8.5-10.1 [facility] Serum or plasma creatinine m easurement (mass/volume)Ordered By: Salas aBsilio on 03-16-2023 Creatinine [Mass/Vol] 7.75 mg/dL 0.55-1.02 [facility] Comment on above: Critical Result(s) C alled at: 15:17:43 03/16/2023 by: FRANKIE PATEL TO RENÉE VELASQUEZ. Results read back by same.The validity of the calculated GFR & GFRAA in patients over 70 years has not been determined. Clinical correlation is essential. Serum or plasma urea nitroge n measurement (mass/volume)Ordered By: Salas Basilio on 03-16-2023 Urea nitrogen [Mass/Vol] 26 mg/dL 7-18 [facility] Thin prep Papanicolaou smear with manual screeningOrdered By: Salas Basilio on 03-16-2023 Thin prep Papanicolaou smear with manual screening 7 5-15 [facility] CNPNon 03-08-2023 CNPN Telephone (PODCCP) SPENCER REDDING ([id number]) 1965 F Date Time Provider Department 03/08/23 ANDREA MADDEN PODCCP During your visit today, we recorded the following information about you: Andrea Madden RN 03/08/2023 3:36 PM Signed PATIENT INFORMATION Record ID: [id number] Patient Name: Spencer Redding Hospital: [facility] [place]: [facility] [place] Attending: Christiano Huntley Center: Urology INSTRUCTIONS All Clear If patient has a Physician- transfer to Appointment Center at [phone] at end of script [facility] to [place] [facility] [phone] (CARE) If patient has a community physician, transfer to [facility]; Any other physician recommend patient follow-up with their physician at the end of script All Clear All Clear All Clear SURVEY INFORMATION Medical/Nurse Social Science Teacher: Andrea Madden 1. Your discharge instructions are important in guiding you through the recovery process. Is there anything I could help you clarify on your discharge instructions? (Standard Question) No 2. Do you have your follow up appointment related to your hospital stay scheduled within the next 30 days? (Standard Question) No, patient prefers to schedule in own time 3. Do you have all the necessary equipment and supplies at home? (Standard Question) Yes 4. Many patients have concerns about their medications once they are home. Do you have any questions about getting or taking your medications? (Standard Question) No 5. Do you have any new or different symptoms? (Standard Question) No Allergies As of Date: 03/08/2023 Noted Allergy Reaction PENICILLINS 11/05/2015 4 - Hives 2 - Rash STRAWBERRY 04/15/2017 11 - Vomiting 2 - Rash ETODOLAC 05/03/2016 2 - Rash SEVELAMER 05/03/2016 8 - GI Upset SULFAMETHOXAZOLE-TRIMET HOPRIM 05/03/2016 8 - GI Upset 2 - Rash TRAMADOL 05/03/2016 5 - Intolerance 2 - Rash Date Reviewed: 03/03/2023 Reviewed by: Karissa Mesa RN - Fully Assessed Reason for Visit: Follow Up Phone Call [[phone]] Follow Up [171] Cmt: All Clear Prescriptions as of 03/08/2023 - docusate sodium (COLACE) 100 mg capsule Take 1 capsule by mouth twice daily for 10 days. - fludrocortisone (FLORINEF) 0.1 mg tablet Take 0.1 mg by mouth once daily. - RANI-YAHIR 0.8 mg tab Take 1 tablet by mouth every afternoon. - calcium carbonate (TUMS ULTRA) 400 mg (1,000 mg) chew Take 1,000 mg by mouth once daily. - gabapentin (NEURONTIN) 600 mg tablet Take 600 mg by mouth daily at bedtime. - sevelamer carbonate (RENVELA) 800 mg tablet Take 5 tablets by mouth three times daily with meals. - Cholecalciferol, Vitamin D3, 50 mcg (2,000 unit) cap Take by mouth once daily. - zolpidem (AMBIEN) 5 mg tablet Take 10 mg by mouth at bedtime as needed. - nitroglycerin sublingual (NITROQUICK) 0.4 mg SL tablet DISSOLVE 1 TAB UNDER THE TONGUE EVERY 5 MINUTES NEEDED FOR CHEST PAIN - atorvastatin (LIPITOR) 40 mg tablet TAKE 1 TABLET BY MOUTH EVERY DAY AT BEDTIME FOR CHOLESTEROL - metoprolol tartrate, short acting, (LOPRESSOR) 25 mg tablet Take 25 mg by mouth once daily. - warfarin (COUMADIN) 7.5 mg tablet Take 7 mg by mouth once daily. - sertraline (ZOLOFT) 50 mg tablet Take 50 mg by mouth once daily. Problem List As Of Date 03/08/2023 Noted Resolved Polycystic kidney [Q61.3] 01/28/2022 Gross hematuria [R31.0] 01/28/2022 Hydronephrosis of right kidney [N13.30] 01/28/2022 Coronary artery abnormality [Q24.5] 02/03/2022 History of recurrent deep vein thrombosis (DVT)*02/03/2022 Obesity, Class II, BMI 35-39.9 [E66.9] 02/09/2022 Abdominal pain [R10.9] 02/10/2023 Obesity, Class I, BMI 30-34.9 [E66.9] 02/12/2023 Preop examination [Z01.818] 02/16/2023 Primary hypertension [I10] 05/03/2016 Anemia in chronic kidney disease [N18.9, D63.1] 06/12/2013 Atherosclerosis of coronary artery [I25.10] 05/04/[address] [Z95.810] 06/21/2018 Cardiomyopathy (HCC) [I42.9] 05/03/2016 Dependence on renal dialysis (HCC) [Z99.2] 09/08/2007 DVT (deep venous thrombosis) (HCC) [I82.409] 07/11/2006 End-stage renal disease (HCC) [N18.6] 05/03/2016 History of thrombosis [Z86.718] 05/03/2016 Mixed hyperlipidemia [E78.2] 02/17/2023 Left flank pain [R10.9] 02/28/2023 Encounter Status:Closed by ANDREA MADDEN on 03/08/23 Normal [facility] Basic metabolic 2000 panelon 03-03-2023 Anion gap [Moles/Vol] 9 mmol/L Normal 9-18 [facility] Comment on above: Order Comment: Speci men Type: BLOOD SPECIMENOrdering Facility: [facility] Address: [address] [place] [address] Performed By: #### 2 4321-2 ####[facility] LABORATORYCLIA [id number] [place] [address] [place] Calcium [Mass/Vol] 7.6 mg/dL Low 8.5-10.2 [facility] Comment on above: Order Comment: Speci men Type: BLOOD SPECIMENOrdering Facility: [facility] Address: [address] [address] Performed By: #### 2 4321-2 ####[facility] LABORATORYCLIA [id number] [place] [address] [place] Chloride [Moles/Vol] 96 mmol/L Low 97-105 [facility] Comment on above: Order Comment: Speci men Type: BLOOD SPECIMENOrdering Facility: [facility] Address: [address] [place] [address] Performed By: #### 2 4321-2 ####[facility] LABORATORYCLIA [id number] [address] [place] CO2 [Moles/Vol] 26 mmol/L Normal 22-30 [facility] Comment on above: Order Comment: Speci men Type: BLOOD SPECIMENOrdering Facility: [facility] Address: [address] [place] [address] Performed By: #### 2 4321-2 ####[facility] [id number] [address] Creatinine [Mass/Vol] 8.32 mg/dL High 0.58-0.96 [facility] Comment on above: Order Comment: Speci men Type: BLOOD SPECIMENOrdering Facility: [facility] Address: [address] [address] Performed By: #### 2 4321-2 ####[facility] [id number] [address] Creatinine and Glomerular filtration rate.predicted panel (S/P/Bld) 5 mL/min/1.73m??? Low >=60 [facility] Comment on above: Order Comment: Speci men Type: BLOOD SPECIMENOrdering Facility: [facility] Address: [address] [place] [address] Result Comment: Lynne mated Glomerular Filtration Rate (eGFR) is calculated using the 2020 CKD-EPI creatinine equation. This equation utilizes serum creatinine, sex, and age as parameters. The creatinine assay has traceable calibration to isotope dilution-mass spectrometry. Refer to KDIGO guidelines for clinical interpretation. In patients with unstable renal function, e.g. those with acute kidney injury, the eGFR may not accurately reflect actual GFR. Performed By: #### 2 4321-2 ####[facility] LABORATORYCLIA [id number] [place] [address] [place] Glucose [Mass/Vol] 101 mg/dL High 74-99 [facility] Comment on above: Order Comment: Speci men Type: BLOOD SPECIMENOrdering Facility: [facility] Address: [address] [place] [address] Result Comment: The [place] [employer] (ADA) provides guidance for cutoff values for fasting glucose and random glucose. The ADA defines fasting as no caloric intake for at least 8 hours. Fasting plasma glucose results between 100 to 125 mg/dL indicate increased risk for diabetes (prediabetes). Fasting plasma glucose results greater than or equal to 126 mg/dL meet the criteria for diagnosis of diabetes. In the absence of unequivocal hyperglycemia, results should be confirmed by repeat testing. In a patient with classic symptoms of hyperglycemia or hyperglycemic crisis, random plasma glucose results greater than or equal to 200 mg/dL meet the criteria for diagnosis of diabetes. Reference: Standards of Medical Care in Diabetes 2016, [place] [employer]. Diabetes Care. 2016.39(Suppl 1). Performed By: #### 2 4321-2 ####[facility] LABORATORYCLIA [id number] [place] [address] [place] Potassium [Moles/Vol] 4.1 mmol/L Normal 3.7-5.1 [facility] Comment on above: Order Comment: Marielos siu Type: BLOOD SPECIMENOrdering Facility: [facility] Address: [address] [place] [address] Performed By: #### 2 4321-2 ####[facility] LABORATORYCLIA [id number] [place] [address] [place] Sodium [Moles/Vol] 131 mmol/L Low 136-144 [facility] Comment on above: Order Comment: Speci men Type: BLOOD SPECIMENOrdering Facility: [facility] Address: [address] [place] [address] Performed By: #### 2 4321-2 ####[facility] LABORATORYCLIA [id number] [place] [address] [place] Urea nitrogen [Mass/Vol] 30 mg/dL High 7-21 [facility] Comment on above: Order Comment: Speci men Type: BLOOD SPECIMENOrdering Facility: [facility] Address: [address] [address] Performed By: #### 2 4321-2 ####[employer] LABORATORYCLIA [id number] [address] CBC panel Auto (Bld)on 03-03 Erythrocyte distribution width (RBC) [Ratio] 19.5 % High 11.5-15.0 [facility] Comment on above: Order Comment: Speci men Type: BLOOD SPECIMEN Ordering Facility: [facility] Address: [address] [address] Performed By: #### 5 8410-2 #### [employer] [facility] CLIA [id number] [address] Hematocrit (Bld) [Volume fraction] 41.9 % Normal 36.0-46.0 [facility] Comment on above: Order Comment: Speci men Type: BLOOD SPECIMEN Ordering Facility: [facility] Address: [address] [address] Performed By: #### 5 8410-2 #### [facility] CLIA [id number] [address] Hemoglobin (Bld) [Mass/Vol] 12.5 g/dL Normal 11.5-15.5 [facility] Comment on above: Order Comment: Speci men Type: BLOOD SPECIMEN Ordering Facility: [facility] Address: [address] [address] Performed By: #### 5 8410-2 #### [employer] [facility] CLIA [id number] [address] MCH (RBC) [Entitic mass] 26.0 pg Normal 26.0-34.0 [facility] Comment on above: Order Comment: Speci men Type: BLOOD SPECIMEN Ordering Facility: [facility] Address: [address] [address] Performed By: #### 5 8410-2 #### [employer] [facility] CLIA [id number] [address] [place] [address] MCHC (RBC) [Mass/Vol] 29.8 g/dL Low 30.5-36.0 [facility] Comment on above: Order Comment: Speci men Type: BLOOD SPECIMEN Ordering Facility: [facility] Address: [address] [address] Performed By: #### 5 8410-2 #### [facility] CLIA [id number] [address] MCV (RBC) [Entitic vol] 87.3 fL Normal 80.0-100.0 [facility] Comment on above: Order Comment: Speci men Type: BLOOD SPECIMEN Ordering Facility: [facility] Address: [address] [address] Performed By: #### 5 8410-2 #### [facility] CLIA [id number] [address] Nucleated RBC (Bld) [#/Vol] 10*3/uL Normal <0.01 [facility] Comment on above: Order Comment: Speci men Type: BLOOD SPECIMEN Ordering Facility: [facility] Address: [address] [address] Performed By: #### 5 8410-2 #### [facility] CLIA [id number] [address] Platelet mean volume (Bld) [Entitic vol] 9.1 fL Normal 9.0-12.7 [facility] Comment on above: Order Comment: Speci men Type: BLOOD SPECIMEN Ordering Facility: [facility] Address: [address] [address] Performed By: #### 5 8410-2 #### [facility] CLIA [id number] [address] [place] Platelets (Bld) [#/Vol] 210 10*3/uL Normal 150-400 [facility] Comment on above: Order Comment: Speci men Type: BLOOD SPECIMEN Ordering Facility: [facility] Address: [address] [address] Performed By: #### 5 8410-2 #### [facility] CLIA [id number] [address] [facility] RBC (Bld) [#/Vol] 4.80 10*6/uL Normal 3.90-5.20 [facility] Comment on above: Order Comment: Speci men Type: BLOOD SPECIMEN Ordering Facility: [facility] Address: [address] [address] Performed By: #### 5 8410-2 #### [facility] CLIA [id number] [address] WBC (Bld) [#/Vol] 7.76 10*3/uL Normal 3.70-11.00 [facility] Comment on above: Order Comment: Speci men Type: BLOOD SPECIMEN Ordering Facility: [facility] Address: [address] [address] Performed By: #### 5 8410-2 #### [facility] CLIA [id number] [address] CNDSon 03-03-2023 CNDS HNO ID: [id number] Author: Christiano Huntley MD Service: Urology Author Type: Physician Type: Discharge Summary Filed: 03/03/2023 9:05 AM Note Text: DISCHARGE SUMMARY PATIENT NAME: Spencer Redding ADMISSION DATE: 02/28/2023 DISCHARGE DATE: 03/03/2023 Attending Physician: Christiano Huntley MD Reason for Hospitalization: Principal Problem: Left flank pain (POA: Yes) Active Problems: Obesity, Class I, BMI 30-34.9 (POA: Unknown) Resolved Problems: * No resolved hospital problems. 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 She tolerated well and was managed on the regular nursing floor. Nephrology was consulted for dialysis. She underwent dialysis on POD1 and POD2. She was ambulating, tolerating regular diet, and pain was controlled on POD3. After discussion with nephrology, she was deemed fit for discharge on POD3. Labs and Procedures Pending at Discharge: No pending results. Consulting Teams During Hospitalization: nephrology Patient Condition @ Discharge: Stable Discharge Disposition: Home with Self Care Information Provided to Patient: See discharge instructions Discharge Medications: Medication List START taking these medications docusate sodium 100 mg capsule Commonly known as: COLACE Take 1 capsule by mouth twice daily for 10 days. oxyCODONE-acetaminophen 5-325 mg tablet Commonly known as: PERCOCET Take 1 tablet by mouth every 6 hours as needed for pain for up to 3 days. CONTINUE taking these medications atorvastatin 40 mg tablet Commonly known as: LIPITOR Cholecalciferol (Vitamin D3) 50 mcg (2,000 unit) Cap fludrocortisone 0.1 mg tablet Commonly known as: FLORINEF nitroglycerin sublingual 0.4 mg SL tablet Commonly known as: NITROQUICK RANI-YAHIR 0.8 mg Tab Generic drug: B Complex-Vitamin C-Folic Acid sertraline 50 mg tablet Commonly known as: ZOLOFT sevelamer carbonate 800 mg tablet Commonly known as: RENVELA TUMS ULTRA 400 mg (1,000 mg) Chew Generic drug: calcium carbonate warfarin 7.5 mg tablet Commonly known as: COUMADIN zolpidem 5 mg tablet Commonly known as: AMBIEN ASK your doctor about these medications gabapentin 600 mg tablet Commonly known as: NEURONTIN metoprolol tartrate (short acting) 25 mg tablet Commonly known as: LOPRESSOR Where to Get Your Medications These medications were sent to e- [id number] [place] [address] - [address] [facility] - [phone] [facility] [place] [address] [address] [facility], [facility] [address] docusate sodium 100 mg capsule oxyCODONE-acetaminophen 5-325 mg tablet Future Appointments: Follow Up with Dr. Huntley TIME OF CARE: Discharge Management: I personally spent less than 30 minutes involved in the discharge management of this patient. SIGNATURE: Sandip Allen MD DATE: March 03, 2023 TIME: 8:24 AM I evaluated the patient. Discussed with the resident and agree with resident's findings and plan as documented in the resident's note. Normal [facility] Basic metabolic 2000 panelon 03-02-2023 Anion gap [Moles/Vol] 14 mmol/L Normal 9-18 [facility] Comment on above: Order Comment: Speci men Type: BLOOD SPECIMENOrdering Facility: [facility] Address: [address] [place] [address] Performed By: #### 2 4321-2 ####[facility] LABORATORYCLIA [id number] [place] [address] [place] Calcium [Mass/Vol] 7.4 mg/dL Low 8.5-10.2 [facility] Comment on above: Order Comment: Speci men Type: BLOOD SPECIMENOrdering Facility: [facility] Address: [address] [place] [address] Performed By: #### 2 4321-2 ####[facility] LABORATORYCLIA [id number] [place] [address] [place] Chloride [Moles/Vol] 93 mmol/L Low 97-105 [facility] Comment on above: Order Comment: Speci men Type: BLOOD SPECIMENOrdering Facility: [facility] Address: [address] [place] [address] Performed By: #### 2 4321-2 ####[facility] LABORATORYCLIA [id number] [place] [address] [place] CO2 [Moles/Vol] 26 mmol/L Normal 22-30 [facility] Comment on above: Order Comment: Speci men Type: BLOOD SPECIMENOrdering Facility: [facility] Address: [address] [address] Performed By: #### 2 4321-2 ####[facility] LABORATORYCLIA [id number] [place] [address] [place] Creatinine [Mass/Vol] 10.27 mg/dL High 0.58-0.96 [facility] Comment on above: Order Comment: Speci men Type: BLOOD SPECIMENOrdering Facility: [facility] Address: [address] [address] Performed By: #### 2 4321-2 ####[facility] LABORATORYCLIA [id number] [place] [address] [place] Creatinine and Glomerular filtration rate.predicted panel (S/P/Bld) 4 mL/min/1.73m??? Low >=60 [facility] Comment on above: Order Comment: Marielos siu Type: BLOOD SPECIMENOrdering Facility: [facility] Address: [address] [place] [address] Result Comment: Lynne mated Glomerular Filtration Rate (eGFR) is calculated using the 2020 CKD-EPI creatinine equation. This equation utilizes serum creatinine, sex, and age as parameters. The creatinine assay has traceable calibration to isotope dilution-mass spectrometry. Refer to KDIGO guidelines for clinical interpretation. In patients with unstable renal function, e.g. those with acute kidney injury, the eGFR may not accurately reflect actual GFR. Performed By: #### 2 4321-2 ####[facility] LABORATORYCLIA [id number] [place] [address] [place] Glucose [Mass/Vol] 99 mg/dL Normal 74-99 [facility] Comment on above: Order Comment: Marielos siu Type: BLOOD SPECIMENOrdering Facility: [facility] Address: [address] [address] Result Comment: The [place] Diabetes Association (ADA) provides guidance for cutoff values for fasting glucose and random glucose. The ADA defines fasting as no caloric intake for at least 8 hours. Fasting plasma glucose results between 100 to 125 mg/dL indicate increased risk for diabetes (prediabetes). Fasting plasma glucose results greater than or equal to 126 mg/dL meet the criteria for diagnosis of diabetes. In the absence of unequivocal hyperglycemia, results should be confirmed by repeat testing. In a patient with classic symptoms of hyperglycemia or hyperglycemic crisis, random plasma glucose results greater than or equal to 200 mg/dL meet the criteria for diagnosis of diabetes. Reference: Standards of Medical Care in Diabetes 2016, [place] [employer]. Diabetes Care. 2016.39(Suppl 1). Performed By: #### 2 4321-2 ####[facility] LABORATORYCLIA [id number] [place] [address] [place] Potassium [Moles/Vol] 4.0 mmol/L Normal 3.7-5.1 [facility] Comment on above: Order Comment: Speci men Type: BLOOD SPECIMENOrdering Facility: [facility] Address: [address] [address] Performed By: #### 2 4321-2 ####[facility] LABORATORYCLIA [id number] [address] Sodium [Moles/Vol] 133 mmol/L Low 136-144 [facility] Comment on above: Order Comment: Speci men Type: BLOOD SPECIMENOrdering Facility: [facility] Address: [address] [address] Performed By: #### 2 4321-2 ####[facility] LABORATORYCLIA [id number] [address] Urea nitrogen [Mass/Vol] 34 mg/dL High 7-21 [facility] Comment on above: Order Comment: Speci men Type: BLOOD SPECIMENOrdering Facility: [facility] Address: [address] [address] Performed By: #### 2 4321-2 ####[facility] LABORATORYCLIA [id number] [address] CBC panel Auto (Bld)on 03-02 Erythrocyte distribution width (RBC) [Ratio] 19.8 % High 11.5-15.0 [facility] Comment on above: Order Comment: Speci men Type: BLOOD SPECIMENOrdering Facility: [facility] Address: [address] [address] Performed By: #### 5 8410-2 ####[facility] LABORATORYCLIA [id number] [address] Hematocrit (Bld) [Volume fraction] 39.9 % Normal 36.0-46.0 [facility] Comment on above: Order Comment: Speci men Type: BLOOD SPECIMENOrdering Facility: [facility] Address: [address] [address] Performed By: #### 5 8410-2 ####[facility] LABORATORYCLIA [id number] [address] Hemoglobin (Bld) [Mass/Vol] 12.0 g/dL Normal 11.5-15.5 [facility] Comment on above: Order Comment: Speci men Type: BLOOD SPECIMENOrdering Facility: [facility] Address: [address] [address] Performed By: #### 5 8410-2 ####[facility] LABORATORYCLIA [id number] [address] MCH (RBC) [Entitic mass] 25.4 pg Low 26.0-34.0 [facility] Comment on above: Order Comment: Speci men Type: BLOOD SPECIMENOrdering Facility: [facility] Address: [address] [place] [address] Performed By: #### 5 8410-2 ####[facility] LABORATORYCLIA [id number] [address] MCHC (RBC) [Mass/Vol] 30.1 g/dL Low 30.5-36.0 [facility] Comment on above: Order Comment: Speci men Type: BLOOD SPECIMENOrdering Facility: [facility] Address: [address] [address] Performed By: #### 5 8410-2 ####[facility] LABORATORYCLIA [id number] [address] MCV (RBC) [Entitic vol] 84.4 fL Normal 80.0-100.0 [facility] Comment on above: Order Comment: Speci men Type: BLOOD SPECIMENOrdering Facility: [facility] Address: [address] [address] Performed By: #### 5 8410-2 ####[facility] LABORATORYCLIA [id number] [address] Nucleated RBC (Bld) [#/Vol] 10*3/uL Normal <0.01 [facility] Comment on above: Order Comment: Speci men Type: BLOOD SPECIMENOrdering Facility: [facility] Address: [address] [place], [place] [address] Performed By: #### 5 8410-2 ####[facility] LABORATORYCLIA [id number] [address] Platelet mean volume (Bld) [Entitic vol] 8.9 fL Low 9.0-12.7 [facility] Comment on above: Order Comment: Speci men Type: BLOOD SPECIMENOrdering Facility: [facility] Address: [address] [place] [address] Performed By: #### 5 8410-2 ####[facility] LABORATORYCLIA [id number] [address] [place] Platelets (Bld) [#/Vol] 193 10*3/uL Normal 150-400 [facility] Comment on above: Order Comment: Speci men Type: BLOOD SPECIMENOrdering Facility: [facility] Address: [address] [place] [address] Performed By: #### 5 8410-2 ####[facility] LABORATORYCLIA [id number] [address] [place] RBC (Bld) [#/Vol] 4.73 10*6/uL Normal 3.90-5.20 [facility] Comment on above: Order Comment: Speci men Type: BLOOD SPECIMENOrdering Facility: [facility] Address: [address] [place] [address] Performed By: #### 5 8410-2 ####[facility] LABORATORYCLIA [id number] [address] [place] WBC (Bld) [#/Vol] 7.49 10*3/uL Normal 3.70-11.00 [facility] Comment on above: Order Comment: Speci men Type: BLOOD SPECIMENOrdering Facility: [facility] Address: [address] [address] Performed By: #### 5 8410-2 ####[facility] LABORATORYCLIA [id number] [address] [place] NURSING PROGon 03-02-2023 NURSING PROG HNO ID: [id number] Author: Karissa Spivey, RN Service: Nursing Author Type: Registered Nurse Type: Nursing Progress Note Filed: 03/02/2023 12:39 PM Note Text: Pt bp 90/[address] Randa Reaves with urology notified. No new orders received at this time. Normal [facility] ALLIED HEALTHon 03-01-2023 ALLIED HEALTH HNO ID: [id number] Author: Sophia Bain Chaplain Service: Spiritual Care Author Type: Resource Manager Forester Type: Allied Health Filed: 03/01/2023 11:28 AM Note Text: SPIRITUAL CARE PROGRESS NOTE SERVICE DATE: 03/01/2023 SERVICE TIME: 10:28 am Short visit with patient. Mrs. Redding shared that she had no need for Spiritual Care services at this time. To contact the Spiritual Care Department: Please call [phone]. SIGNATURE: Chaplain Mark PATIENT NAME: Spencer Redding DATE: March 01, 2023 TIME: 11:27 AM PAGER/CONTACT #: [phone] Normal [facility] Basic metabolic 2000 panelon 03-01-2023 Anion gap [Moles/Vol] 18 mmol/L Normal 9-18 [facility] Comment on above: Order Comment: Speci men Type: BLOOD SPECIMENOrdering Facility: [facility] Address: [address] [address] Performed By: #### 2 4321-2, 2777- ####[facility] LABORATORYCLIA [id number] [place] [address] [place] Calcium [Mass/Vol] 8.2 mg/dL Low 8.5-10.2 [facility] Comment on above: Order Comment: Speci men Type: BLOOD SPECIMENOrdering Facility: [facility] Address: [address] [address] Performed By: #### 2 4321-2, 2777-1 ####[facility] LABORATORYCLIA [id number] [place] [address] [place] Chloride [Moles/Vol] 98 mmol/L Normal 97-105 [facility] Comment on above: Order Comment: Speci men Type: BLOOD SPECIMENOrdering Facility: [facility] Address: [address] [address] Performed By: #### 2 432-2, 2776-07 ####[facility] LABORATORYCLIA [id number] [address] CO2 [Moles/Vol] 23 mmol/L Normal 22-30 [facility] Comment on above: Order Comment: Speci men Type: BLOOD SPECIMENOrdering Facility: [facility] Address: [address] [address] Performed By: #### 2 4322, 2776-07 ####[facility] [id number] [address] Creatinine [Mass/Vol] 12.22 mg/dL High 0.58-0.96 [facility] Comment on above: Order Comment: Speci men Type: BLOOD SPECIMENOrdering Facility: [facility] Address: [address] [address] Performed By: #### 2 4322, 2776-07 ####[facility] [id number] [address] Creatinine and Glomerular filtration rate.predicted panel (S/P/Bld) 3 mL/min/1.73m??? Low >=60 [facility] Comment on above: Order Comment: Speci men Type: BLOOD SPECIMENOrdering Facility: [facility] Address: [address] [address] Result Comment: Lynne mated Glomerular Filtration Rate (eGFR) is calculated using the 2020 CKD-EPI creatinine equation. This equation utilizes serum creatinine, sex, and age as parameters. The creatinine assay has traceable calibration to isotope dilution-mass spectrometry. Refer to KDIGO guidelines for clinical interpretation. In patients with unstable renal function, e.g. those with acute kidney injury, the eGFR may not accurately reflect actual GFR. Performed By: #### 2 432-2, 2776-07 ####[facility] LABORATORYCLIA [id number] [place] [address] [place] Glucose [Mass/Vol] 95 mg/dL Normal 74-99 [facility] Comment on above: Order Comment: Speci men Type: BLOOD SPECIMENOrdering Facility: [facility] Address: [address] [address] Result Comment: The [place] Diabetes Association (ADA) provides guidance for cutoff values for fasting glucose and random glucose. The ADA defines fasting as no caloric intake for at least 8 hours. Fasting plasma glucose results between 100 to 125 mg/dL indicate increased risk for diabetes (prediabetes). Fasting plasma glucose results greater than or equal to 126 mg/dL meet the criteria for diagnosis of diabetes. In the absence of unequivocal hyperglycemia, results should be confirmed by repeat testing. In a patient with classic symptoms of hyperglycemia or hyperglycemic crisis, random plasma glucose results greater than or equal to 200 mg/dL meet the criteria for diagnosis of diabetes. Reference: Standards of Medical Care in Diabetes 2016, [place] [employer] Association. Diabetes Care. 2016.39(Suppl 1). Performed By: #### 2 432-2, 2776-07 ####[facility] LABORATORYCLIA [id number] [place] [address] [place] Potassium [Moles/Vol] 4.8 mmol/L Normal 3.7-5.1 [facility] Comment on above: Order Comment: Marielos siu Type: BLOOD SPECIMENOrdering Facility: [facility] Address: [address] [place] [address] Performed By: #### 2 43207-12, 2776-07 ####[facility] LABORATORYCLIA [id number] [place] [address] [place] Sodium [Moles/Vol] 139 mmol/L Normal 136-144 [facility] Comment on above: Order Comment: Lewisi men Type: BLOOD SPECIMENOrdering Facility: [facility] Address: [address] [address] Performed By: #### 2 43207-12, 2776-07 ####[facility] LABORATORYCLIA [id number] [place] [address] [place] Urea nitrogen [Mass/Vol] 41 mg/dL High 7-21 [facility] Comment on above: Order Comment: Speci men Type: BLOOD SPECIMENOrdering Facility: [facility] Address: [address] [place] [place] [address] Performed By: #### 2 4321-2, 2777-1 ####[facility] LABORATORYCLIA [id number] [address] STATES OF [facility] CBC panel Auto (Bld)on 03-01 Erythrocyte distribution width (RBC) [Ratio] 19.9 % High 11.5-15.0 [facility] Comment on above: Order Comment: Speci men Type: BLOOD SPECIMENOrdering Facility: [facility] Address: [address] [place] [address] Performed By: #### 5 8410-2 ####[facility] LABORATORYCLIA [id number] [address] STATES OF [facility] Hematocrit (Bld) [Volume fraction] 44.6 % Normal 36.0-46.0 [facility] Comment on above: Order Comment: Speci men Type: BLOOD SPECIMENOrdering Facility: [facility] Address: [address] [place] [address] Performed By: #### 5 8410-2 ####[facility] LABORATORYCLIA [id number] [address] [place] Hemoglobin (Bld) [Mass/Vol] 13.6 g/dL Normal 11.5-15.5 [facility] Comment on above: Order Comment: Speci men Type: BLOOD SPECIMENOrdering Facility: [facility] Address: [address] [place] [address] Performed By: #### 5 8410-2 ####[facility] LABORATORYCLIA [id number] [address] STATES [facility] MCH (RBC) [Entitic mass] 26.5 pg Normal 26.0-34.0 [facility] Comment on above: Order Comment: Speci men Type: BLOOD SPECIMENOrdering Facility: [facility] Address: [address] [place] [address] Performed By: #### 5 8410-2 ####[facility] LABORATORYCLIA [id number] [address] STATES OF [facility] MCHC (RBC) [Mass/Vol] 30.5 g/dL Normal 30.5-36.0 [facility] Comment on above: Order Comment: Speci men Type: BLOOD SPECIMENOrdering Facility: [facility] Address: [address] [place] [address] Performed By: #### 5 8410-2 ####[facility] LABORATORYCLIA [id number] [address] [place] MCV (RBC) [Entitic vol] 86.9 fL Normal 80.0-100.0 [facility] Comment on above: Order Comment: Speci men Type: BLOOD SPECIMENOrdering Facility: [facility] Address: [address] [place] [address] Performed By: #### 5 8410-2 ####[facility] LABORATORYCLIA [id number] [address] [place] Nucleated RBC (Bld) [#/Vol] 10*3/uL Normal <0.01 [facility] Comment on above: Order Comment: Speci men Type: BLOOD SPECIMENOrdering Facility: [facility] Address: [address] [place] [address] Performed By: #### 5 8410-2 ####[facility] LABORATORYCLIA [id number] [address] [place] Platelet mean volume (Bld) [Entitic vol] 9.8 fL Normal 9.0-12.7 [facility] Comment on above: Order Comment: Speci men Type: BLOOD SPECIMENOrdering Facility: [facility] Address: [address] [place] [address] Performed By: #### 5 8410-2 ####[facility] LABORATORYCLIA [id number] [address] [place] Platelets (Bld) [#/Vol] 227 10*3/uL Normal 150-400 [facility] Comment on above: Order Comment: Speci men Type: BLOOD SPECIMENOrdering Facility: [facility] Address: [address] [place] [address] Performed By: #### 5 8410-2 ####[facility] LABORATORYCLIA [id number] [address] OF [facility] RBC (Bld) [#/Vol] 5.13 10*6/uL Normal 3.90-5.20 [facility] Comment on above: Order Comment: Speci men Type: BLOOD SPECIMENOrdering Facility: [facility] Address: [address] [place] [address] Performed By: #### 5 8410-2 ####[facility] LABORATORYCLIA [id number] [address] WBC (Bld) [#/Vol] 6.21 10*3/uL Normal 3.70-11.00 [facility] Comment on above: Order Comment: Speci men Type: BLOOD SPECIMENOrdering Facility: [facility] Address: [address] [place] [address] Performed By: #### 5 8410-2 ####[facility] LABORATORYCLIA [id number] [address] CONSULTon 03-01-2023 CONSULT HNO ID: [id number] Author: Maurice Acevedo DO Service: Nephrology Author Type: Physician Type: Consults Filed: 03/01/2023 2:31 PM Note Text: NEPHROLOGY CONSULT NOTE PATIENT NAME: Spencer Redding ROOM: [id number]/[place] [address] 1* SERVICE DATE: 03/01/2023 SERVICE TIME: 2:05 PM LENGTH OF STAY: 1 day(s) REFERRING PHYSICIAN: Christiano Huntley MD PRIMARY CARE PHYSICIAN: Trevor Vieyra MD OUTPATIENT INVESTIGATOR INTERNAL REVENUE: Keyanna Castellanos MD Subjective/HPI Spencer Redding is a 57 year old female with PMHx significant for ESRD on HD (per MWF schedule at [facility]), ADPKD (with prior history of right nephrectomy in February 2022 2/2 hematuria), prior HTN (now with chronic hypotension on midodrine and fludrocortisone), HLD, CAD, VTach (s/p AICD placement), hyperparathyroidism (with history of parathyroidectomy), anemia, history of VTE (prior DVT), arthritis, anxiety, depression, obesity who initially presented to [facility] on 02/28/23 for scheduled surgery and was admitted following robotic assisted left radical nephrectomy. The nephrology service was consulted for the provision of inpatient dialysis. The patient was seen and examined this afternoon following her HD treatment, and family was present at the bedside. The patient last received dialysis on Tuesday02/26/23 off schedule in anticipation of the procedure she underwent yesterday. Patient reports that she experienced some cramping while on treatment earlier today and ended her session after 3 hours. She states that her ability to take analgesics is limited by her chronic hypotension, but she did earlier receive a medication that was not Tylenol. Patient states that she has not been able to pass flatus or have a BM as of yet. She notes that she does not feel ready for discharge at present as she has not been able to sit up yet. She completed a 3 hour HD treatment earlier today with 2 L UF. She is amenable to having dialysis tomorrow again to reestablish her usual MWF maintenance schedule. Review of Systems: Constitutional: +fatigue, no fever, no chills Eye: no double vision, no visual disturbances Ear/Nose/Mouth/Throat: no nasal congestion, no sore throat Respiratory: no shortness of breath, no cough, no sputum production Cardiovascular: no chest pain, no palpitations, no peripheral edema Gastrointestinal: +nausea, no vomiting, no diarrhea, no constipation, no abdominal pain Genitourinary: no dysuria, no hematuria, no change in urine stream Musculoskeletal: no joint pain, +muscle pain Integumentary: no rash, no breakdown, no skin lesion Neurologic: no confusion, no numbness, no tingling Medical History: PAST MEDICAL HISTORY Diagnosis Date AICD (automatic cardioverter/defibrilla tor) present 06/2016 Anxiety Arthritis Blood clot in vein lower left leg CAD (coronary artery disease) s/p cardiac stent x6 2015; last cardiology visit 12/25/[address] Garvin; pt taking Plavix Chronic kidney disease Delayed emergence from general anesthesia Depression DVT (deep vein thrombosis) in 2006 left below the knee ESRD (end stage renal disease) on dialysis (HCC) MWF/[facility] in [place] [phone] History of coronary artery stent placement 04/22/2016 Hx of cardiovascular stress test 2016 negative for ischemia, EF 70% Hx of echocardiogram 02/2017 EF 60% moderate LVH, no valvular abnormalities- received from [facility]- on hard chart Hx of sudden cardiac successfully resuscitated Hyperlipidemia Hypertension Osteoarthritis of multiple joints Polycystic kidney disease Thyroid disease Ventricular tachycardia (HCC) S/P defibrillator 2015 PAST SURGICAL HISTORY Procedure Laterality Date AV FISTULA OR GRAFT VENOUS Left 2016 AV FISTULA REPAIR HX Right 06/24/2015 CYST/MOLE REMOVAL benign- on neck CYSTOSCOPY 02/2020 RETROPYELOGRAM FISTULA Left 08/2016 dialysis FISTULA Right 2014 dialysis LEFT HEART CATH,PERCUTANEOUS 04/22/2016 PTCA stent RCA/PDA, LAD PAST SURGICAL HISTORY OF 06/2016 Defibrillator placed 2015; generator change 11/2019 PAST SURGICAL HISTORY OF 02/22/2022 obotic Assisted Laparoscopic Right Radical Nephrectomy, robotic renal cyst decortication Dr. Huntley PICC LINE PRQ CARDIAC STENT W/ANGIO 1 VSL 2015 6 cardic stents THYROIDECTOMY TOTAL/COMPLETE FAMILY HISTORY Problem Relation Age of Onset Diabetes Mother Cancer Mother Heart Father Kidney Disease Father other (HTN) Father Diabetes Sister Heart Brother Kidney Disease Brother Diabetes Maternal Grandmother Social History Tobacco Use Smoking status: Never Smokeless tobacco: Never Vaping Use Vaping Use: Never used Substance Use Topics Alcohol use: Not Currently Drug use: Never Allergies: ALLERGIES Allergen Reactions Penicillins Hives, Rash [place] Vomiting, Rash Etodolac Rash Sevelamer GI Upset Sulfamethoxazole-Tr* GI Upset, Rash Tramadol I (more content not included)... Normal [facility] Phosphate SerPl-mCncon 03-01 Phosphate [Mass/Vol] 7.5 mg/dL High 2.7-4.8 [facility] Comment on above: Order Comment: Speci men Type: BLOOD SPECIMENOrdering Facility: [facility] Address: [address] [place] [id number] Performed By: #### 2 4321-2, 2777-1 ####[facility] LABORATORYCLIA [id number] [place] [address] [place] ANES POSTPROC EVALon 023 ANES POSTPROC EVAL HNO ID: [id number] Author: Jeremy Scott DO Service: Anesthesiology Author Type: Physician Type: Anesthesia Postprocedure Evaluation Filed: 02/28/2023 5:35 PM Note Text: POST ANESTHESIA EVALUATION NOTE : 1965 Procedure Summary Date: 02/28/23 Room / Location: MD OR [address] [place] [address] OR Anesthesia Start: 1242 Anesthesia Stop: 1701 Procedure: XI ROBOTIC LAPAROSCOPIC NEPHRECTOMY RADICAL (Left: Kidney) Diagnosis: Polycystic kidney (Polycystic kidney [Q61.3]) Surgeons: Christiano Huntley MD Responsible Provider: Jeremy Scott DO Anesthesia Type: general ASA Status: 3 Anesthesia Type: general Airway Type: ETT Last Vitals Vitals Value Taken Time BP 99/43 02/28/23 1730 Temp 36.2 ?C (97.2 ?F) 02/28/23 1659 Pulse 67 02/28/23 1735 Resp 22 02/28/23 1735 SpO2 93 % 02/28/23 1735 Vitals shown include unvalidated device data. Post Anesthesia Patient Status Patient Evaluation: PACU. PACU/ICU Patient Condition: stable. Anticipated Disposition: inpatient floor planned admission. Neurological Status: sleepy but arousable. Pulmonary Status: breathing comfortably on supplemental oxygen Airway Control: returned to baseline unsupported. Cardiovascular Status: stable. Pain Management: clinically adequate Postoperative Hydration: acceptable. Intraoperative Events: no significant anesthesia events Post Operative Nausea/Vomiting Status: no significant post operative nausea or vomiting Recommendation: continue current plan of care. Anesthesia Observations No Documentation SIGNATURE: Jeremy Scott DO PATIENT NAME: Spencer Redding DATE: February 28, 2023 TIME: 5:35 PM CSN: [id number] [facility] ANES PRE-OPon 02-28-2023 ANES PRE-OP HNO ID: [id number] Author: Jeremy Scott DO Service: Anesthesiology Author Type: Physician Type: Anesthesia Preprocedure Evaluation Filed: 02/28/2023 5:34 PM Note Text: ANESTHESIOLOGY DAY OF SURGERY NOTE : 1965 Procedure Information Anesthesia Start Date/Time: 02/28/23 1242 Procedure: XI ROBOTIC LAPAROSCOPIC NEPHRECTOMY RADICAL (Left: Kidney) Location: [place] OR 03 / [place] Surgeons: Christiano Huntley MD Estimated body mass index is 34.02 kg/m? as calculated from the following: Height as of 02/18/23: 158.8 cm (5' 2.5). Weight as of 02/18/23: 85.7 kg (189 lb). Most recent hematocrit and potassium results: Hematocrit 50.7 02/28/2023 Potassium 4.7 02/28/2023 Relevant Problems CARDIO (+) Atherosclerosis of coronary artery (+) Coronary artery abnormality (+) DVT (deep venous thrombosis) (HCC) (+) Primary hypertension -RENAL (+) Dependence on renal dialysis (HCC) (+) End-stage renal disease (HCC) (+) Hydronephrosis of right kidney (+) Polycystic kidney NEURO-PSYCH (+) History of recurrent deep vein thrombosis (DVT) (+) History of thrombosis I - PHYSICAL EVALUATION AIRWAY Patient intubated: No. Tracheostomy tube not present Mallampati: II. TM distance: >3 FB. Neck ROM: full ROM without neurological symptoms. Mouth opening: adequate. Short neck: no. Thick neck: no DENTAL Dental findings: teeth intact. Additional exam findings: no II - ANESTHESIA PLAN ASA Score: 3 Anesthetic Plan: general Airway type: ETT NPO Status: adequate Beta [employer] Monitoring Plan Monitoring plan: standard ASA. Post Procedure Analgesic Plan Postoperative analgesic plan: multimodal analgesia and parenteral or oral opioids. Patient / Surrogate agrees to blood products: blood products not planned Significant changes in the patient condition since the History and Physical, not otherwise documented in primary service progress note: no. Potential Anesthesia issues that may suggest increased risk of complications or contraindication to planned procedure: none. Vitals Value Taken Time BP 115/64 02/28/23 1159 Pulse 70 02/28/23 1159 Resp 18 02/28/23 1159 Temp 36 ?C (96.8 ?F) 02/28/23 1159 SpO2 97 % 02/28/23 1159 Facility-Administered Medications as of 02/28/2023 Medication Dose Route Frequency - [COMPLETED] acetaminophen 975 mg tab(s) (TYLENOL) 975 mg ORAL Pre-Op Once - [COMPLETED] gabapentin 300 mg cap(s) (NEURONTIN) 300 mg ORAL Pre-Op Once - lactated ringers iv infusion 125 mL/hr INTRAVENOUS CONTINUOUS - fentaNYL 50 mcg/mL 50 mcg injection (SUBLIMAZE) 50 mcg INTRAVENOUS q 5 MIN PRN - HYDROmorphone (PF) 0.5 mg injection (DILAUDID) 0.5 mg INTRAVENOUS q 10 MIN PRN - oxyCODONE IR 5 mg tab(s) (ROXICODONE) 5 mg ORAL PRN - ondansetron (PF) 4 mg injection (ZOFRAN) 4 mg INTRAVENOUS PRN - diphenhydrAMINE 25 mg injection (BENADRYL) 25 mg INTRAVENOUS q 4 H PRN - haloperidol lactate 1 mg short-acting injection (HALDOL) 1 mg INTRAVENOUS ONCE Outpatient Medications as of 02/28/2023 Medication Sig - RANI-YAHIR 0.8 mg tab Take 1 tablet by mouth every afternoon. - Cholecalciferol, Vitamin D3, 50 mcg (2,000 unit) cap Take by mouth once daily. - zolpidem (AMBIEN) 5 mg tablet Take 10 mg by mouth at bedtime as needed. - atorvastatin (LIPITOR) 40 mg tablet TAKE 1 TABLET BY MOUTH EVERY DAY AT BEDTIME FOR CHOLESTEROL - sertraline (ZOLOFT) 50 mg tablet Take 50 mg by mouth once daily. - gabapentin (NEURONTIN) 600 mg tablet Take 600 mg by mouth daily at bedtime. (Patient not taking: Reported on 02/18/2023) - sevelamer carbonate (RENVELA) 800 mg tablet Take 5 tablets by mouth three times daily with meals. - nitroglycerin sublingual (NITROQUICK) 0.4 mg SL tablet DISSOLVE 1 TAB UNDER THE TONGUE EVERY 5 MINUTES NEEDED FOR CHEST PAIN - metoprolol tartrate, short acting, (LOPRESSOR) 25 mg tablet Take 25 mg by mouth once daily. (Patient not taking: Reported on 02/18/2023) - warfarin (COUMADIN) 7.5 mg tablet Take 7 mg by mouth once daily. I have interviewed and examined the patient. I have reviewed the medical record and/or the pre-anesthesia evaluation, pertinent labs, and test results. This contains updated information obtained within 48 hours of Surgery/Procedure. SIGNATURE: Jeremy Scott DO PATIENT NAME: Spencer Redding DATE: February 28, 2023 TIME: 5:33 PM CSN: [id number] [facility] Basic metabolic 2000 panelon 02-28-2023 Anion gap [Moles/Vol] 16 mmol/L Normal 9-18 [facility] Comment on above: Order Comment: Speci men Type: BLOOD SPECIMENOrdering Facility: [facility] Address: [address] [place] [address] Performed By: #### 2 4321-2 ####[facility] LABORATORYCLIA [id number] [place] [address] [place] Calcium [Mass/Vol] 9.4 mg/dL Normal 8.5-10.2 [facility] Comment on above: Order Comment: Speci men Type: BLOOD SPECIMENOrdering Facility: [facility] Address: [address] [place] [address] Performed By: #### 2 4321-2 ####[facility] LABORATORYCLIA [id number] [place] [address] [place] Chloride [Moles/Vol] 96 mmol/L Low 97-105 [facility] Comment on above: Order Comment: Speci men Type: BLOOD SPECIMENOrdering Facility: [facility] Address: [address] [place] [address] Performed By: #### 2 4321-2 ####[facility] LABORATORYCLIA [id number] [place] [address] [place] CO2 [Moles/Vol] 26 mmol/L Normal 22-30 [facility] Comment on above: Order Comment: Speci men Type: BLOOD SPECIMENOrdering Facility: [facility] Address: [address] [place] [address] Performed By: #### 2 4321-2 ####[facility] LABORATORYCLIA [id number] [place] [address] [place] Creatinine [Mass/Vol] 11.91 mg/dL High 0.58-0.96 [facility] Comment on above: Order Comment: Speci men Type: BLOOD SPECIMENOrdering Facility: [facility] Address: [address] [place] [address] Performed By: #### 2 4321-2 ####[facility] POINTCLIA [id number] [place] [id number] [place] Creatinine and Glomerular filtration rate.predicted panel (S/P/Bld) 3 mL/min/1.73m??? Low >=60 [facility] Comment on above: Order Comment: Lewistraci siu Type: BLOOD SPECIMENOrdering Facility: [facility] Address: [address] [address] Result Comment: Lynne mated Glomerular Filtration Rate (eGFR) is calculated using the 2020 CKD-EPI creatinine equation. This equation utilizes serum creatinine, sex, and age as parameters. The creatinine assay has traceable calibration to isotope dilution-mass spectrometry. Refer to KDIGO guidelines for clinical interpretation. In patients with unstable renal function, e.g. those with acute kidney injury, the eGFR may not accurately reflect actual GFR. Performed By: #### 2 4321-2 ####[facility] HOSPITALIA [id number] [place] [address] [place] Glucose [Mass/Vol] 86 mg/dL Normal 74-99 [facility] Comment on above: Order Comment: Spectraci siu Type: BLOOD SPECIMENOrdering Facility: [facility] Address: [address] [address] Result Comment: The [place] Diabetes Association (ADA) provides guidance for cutoff values for fasting glucose and random glucose. The ADA defines fasting as no caloric intake for at least 8 hours. Fasting plasma glucose results between 100 to 125 mg/dL indicate increased risk for diabetes (prediabetes). Fasting plasma glucose results greater than or equal to 126 mg/dL meet the criteria for diagnosis of diabetes. In the absence of unequivocal hyperglycemia, results should be confirmed by repeat testing. In a patient with classic symptoms of hyperglycemia or hyperglycemic crisis, random plasma glucose results greater than or equal to 200 mg/dL meet the criteria for diagnosis of diabetes. Reference: Standards of Medical Care in Diabetes 2016, [place] Diabetes Association. Diabetes Care. 2016.39(Suppl 1). Performed By: #### 2 4321-2 ####[facility] LABORATORYCLIA [id number] [place] [id number] [place] Potassium [Moles/Vol] 4.7 mmol/L Normal 3.7-5.1 [facility] Comment on above: Order Comment: Speci men Type: BLOOD SPECIMENOrdering Facility: [facility] Address: [address] [place] [address] Performed By: #### 2 4321-2 ####[facility] LABORATORYCLIA [id number] [address] STATES OF [facility] Sodium [Moles/Vol] 138 mmol/L Normal 136-144 [facility] Comment on above: Order Comment: Speci men Type: BLOOD SPECIMENOrdering Facility: [facility] Address: [address] [place] [address] Performed By: #### 2 4321-2 ####[facility] LABORATORYCLIA [id number] [address] [place] Urea nitrogen [Mass/Vol] 37 mg/dL High 7- [facility] Comment on above: Order Comment: Speci men Type: BLOOD SPECIMENOrdering Facility: [facility] Address: [address] [place] [address] Performed By: #### 2 4321-2 ####[facility] LABORATORYCLIA [id number] [address] [place] CBC panel Auto (Bld)on 02-28 Erythrocyte distribution width (RBC) [Ratio] 19.9 % High 11.5-15.0 [facility] Comment on above: Order Comment: Speci men Type: BLOOD SPECIMENOrdering Facility: [facility] Address: [address] [place] [place] [address] Performed By: #### 5 8410-2 ####[facility] LABORATORYCLIA [id number] [address] STATES [facility] Hematocrit (Bld) [Volume fraction] 50.7 % High 36.0-46.0 [facility] Comment on above: Order Comment: Speci men Type: BLOOD SPECIMENOrdering Facility: [facility] Address: [address] [address] Performed By: #### 5 8410-2 ####[facility] LABORATORYCLIA [id number] [address] OF [facility] Hemoglobin (Bld) [Mass/Vol] 15.3 g/dL Normal 11.5-15.5 [facility] Comment on above: Order Comment: Speci men Type: BLOOD SPECIMENOrdering Facility: [facility] Address: [address] [address] Performed By: #### 5 8410-2 ####[facility] LABORATORYCLIA [id number] [address] MCH (RBC) [Entitic mass] 25.7 pg Low 26.0-34.0 [facility] Comment on above: Order Comment: Speci men Type: BLOOD SPECIMENOrdering Facility: [facility] Address: [address] [address] Performed By: #### 5 8410-2 ####[facility] LABORATORYCLIA [id number] [address] MCHC (RBC) [Mass/Vol] 30.2 g/dL Low 30.5-36.0 [facility] Comment on above: Order Comment: Speci men Type: BLOOD SPECIMENOrdering Facility: [facility] Address: [address] [place] [address] Performed By: #### 5 8410-2 ####[facility] LABORATORYCLIA [id number] [address] OF [facility] MCV (RBC) [Entitic vol] 85.2 fL Normal 80.0-100.0 [facility] Comment on above: Order Comment: Speci men Type: BLOOD SPECIMENOrdering Facility: [facility] Address: [address] [address] Performed By: #### 5 8410-2 ####[facility] LABORATORYCLIA [id number] [address] Nucleated RBC (Bld) [#/Vol] 10*3/uL Normal <0.01 [facility] Comment on above: Order Comment: Speci men Type: BLOOD SPECIMENOrdering Facility: [facility] Address: [address] [place] [address] Performed By: #### 5 8410-2 ####[facility] LABORATORYCLIA [id number] [address] Platelet mean volume (Bld) [Entitic vol] 9.3 fL Normal 9.0-12.7 [facility] Comment on above: Order Comment: Speci men Type: BLOOD SPECIMENOrdering Facility: [facility] Address: [address] [place] [address] Performed By: #### 5 8410-2 ####[facility] LABORATORYCLIA [id number] [address] [place] Platelets (Bld) [#/Vol] 264 10*3/uL Normal 150-400 [facility] Comment on above: Order Comment: Speci men Type: BLOOD SPECIMENOrdering Facility: [facility] Address: [address] [place] [address] Performed By: #### 5 8410-2 ####[facility] LABORATORYCLIA [id number] [place] [address] [place] RBC (Bld) [#/Vol] 5.95 10*6/uL High 3.90-5.20 [facility] Comment on above: Order Comment: Speci men Type: BLOOD SPECIMENOrdering Facility: [facility] Address: [address] [place] [address] Performed By: #### 5 8410-2 ####[facility] LABORATORYCLIA [id number] [address] [place] WBC (Bld) [#/Vol] 6.35 10*3/uL Normal 3.70-11.00 [facility] Comment on above: Order Comment: Speci men Type: BLOOD SPECIMENOrdering Facility: [facility] Address: [address] [place] [address] Performed By: #### 5 8410-2 ####[facility] LABORATORYCLIA [id number] [place] [address] [place] Claudia 02-28-2023 ALFAN Telephone (UROLANikia) ALEJANDROSPENCER Valentine ([id number]) 1965 F Date Time Provider Department 02/28/23 CHRISTIANO HUNTLEY During your visit today, we recorded the following information about you: Christiano Huntley MD 02/28/2023 4:34 PM Signed 02/28/2023: RAL Left Radical Nephrectomy F/u 6 weeks Laya Alonzo 03/03/2023 11:13 AM Signed Patient is still admitted in the hospital. I will contact to arrange once she is discharged. Laya Alonzo 03/07/2023 3:05 PM Signed Patient was discharged on 03/03/23. Left message for her to call to make post op appointment. Laya Alonzo 03/10/2023 12:11 PM Signed I called and spoke with patient. Appointment made on 04/28/23 11:15 AM Janene. Allergies As of Date: 02/28/2023 Noted Allergy Reaction PENICILLINS 11/05/2015 4 - Hives 2 - Rash STRAWBERRY 04/15/2017 11 - Vomiting 2 - Rash ETODOLAC 05/03/2016 2 - Rash SEVELAMER 05/03/2016 8 - GI Upset SULFAMETHOXAZOLE-TRIMET HOPRIM 05/03/2016 8 - GI Upset 2 - Rash TRAMADOL 05/03/2016 5 - Intolerance 2 - Rash Date Reviewed: 02/28/2023 Reviewed by: Georgette Harvey, CONSTANZA - Fully Assessed Reason for Visit: Surgical Followup [104] Prescriptions as of 03/10/2023 - docusate sodium (COLACE) 100 mg capsule Take 1 capsule by mouth twice daily for 10 days. - fludrocortisone (FLORINEF) 0.1 mg tablet Take 0.1 mg by mouth once daily. - RANI-YAHIR 0.8 mg tab Take 1 tablet by mouth every afternoon. - calcium carbonate (TUMS ULTRA) 400 mg (1,000 mg) chew Take 1,000 mg by mouth once daily. - gabapentin (NEURONTIN) 600 mg tablet Take 600 mg by mouth daily at bedtime. - sevelamer carbonate (RENVELA) 800 mg tablet Take 5 tablets by mouth three times daily with meals. - Cholecalciferol, Vitamin D3, 50 mcg (2,000 unit) cap Take by mouth once daily. - zolpidem (AMBIEN) 5 mg tablet Take 10 mg by mouth at bedtime as needed. - nitroglycerin sublingual (NITROQUICK) 0.4 mg SL tablet DISSOLVE 1 TAB UNDER THE TONGUE EVERY 5 MINUTES NEEDED FOR CHEST PAIN - atorvastatin (LIPITOR) 40 mg tablet TAKE 1 TABLET BY MOUTH EVERY DAY AT BEDTIME FOR CHOLESTEROL - metoprolol tartrate, short acting, (LOPRESSOR) 25 mg tablet Take 25 mg by mouth once daily. - warfarin (COUMADIN) 7.5 mg tablet Take 7 mg by mouth once daily. - sertraline (ZOLOFT) 50 mg tablet Take 50 mg by mouth once daily. Problem List As Of Date 02/28/2023 Noted Resolved Polycystic kidney [Q61.3] 01/28/2022 Gross hematuria [R31.0] 01/28/2022 Hydronephrosis of right kidney [N13.30] 01/28/2022 Coronary artery abnormality [Q24.5] 02/03/2022 History of recurrent deep vein thrombosis (DVT)*02/03/2022 Obesity, Class II, BMI 35-39.9 [E66.9] 02/09/2022 Abdominal pain [R10.9] 02/10/2023 Obesity, Class I, BMI 30-34.9 [E66.9] 02/12/2023 Preop examination [Z01.818] 02/16/2023 Primary hypertension [I10] 05/03/2016 Anemia in chronic kidney disease [N18.9, D63.1] 06/12/2013 Atherosclerosis of coronary artery [I25.10] 05/04/[address] [Z95.810] 06/21/2018 Cardiomyopathy (HCC) [I42.9] 05/03/2016 Dependence on renal dialysis (HCC) [Z99.2] 09/08/2007 DVT (deep venous thrombosis) ([facility]) [I82.409] 07/11/2006 End-stage renal disease (HCC) [N18.6] 05/03/2016 History of thrombosis [Z86.718] 05/03/2016 Mixed hyperlipidemia [E78.2] 02/17/2023 Left flank pain [R10.9] 02/28/2023 Encounter Status:Closed by CHRISTIANO HUNTLEY on 02/28/23 [facility] NURSING PROGon 02-28-2023 NURSING PROG HNO ID: [id number] Author: Veronica Leon, CONSTANZA Service: Nursing Author Type: Registered Nurse Type: Nursing Progress Note Filed: 02/28/2023 8:58 PM Note Text: Notified Marlon Francis MD that patient is declining continual IV fluids and that the patient takes all her medications at night. Okay to retime medications for bedtime. Will monitor vitals without fluids given patients BP was running low. [facility] NURSING PROG HNO ID: [id number] Author: Lorena Freitas RN Service: Nursing Author Type: Registered Nurse Type: Nursing Progress Note Filed: 02/28/2023 12:31 PM Note Text: Notified edr gerardo prior to huddle that pt has icd [employer]... no pacing ability just defib. Recommendations to deactivate it pt is sinus rhythm . [facility] NURSING PROG HNO ID: [id number] Author: Lorena Freitas RN Service: Nursing Author Type: Registered Nurse Type: Nursing Progress Note Filed: 02/28/2023 12:21 PM Note Text: Device [facility]inic notified and recommends deactivating ICD pt has under lying rhytm of sinus no pacing . [place] [employer] [facility] OPERATIVE NOon 02-28-2023 OPERATIVE NO HNO ID: [id number] Author: Christiano Huntley MD Service: Urology Author Type: Physician Type: Operative Report Filed: 03/01/2023 9:10 AM Note Text: OPERATIVE/PROCEDURE REPORT LOG ID: [id number] SURGERY/PROCEDURE DATE: 02/28/2023 INCISION/PROCEDURE START TIME: 1:11 PM INCISION CLOSE/PROCEDURE END TIME: 4:50 PM SURGEON(S)/PROCEDURALIS T(S) AND INSTRUCTOR KINDERGARTEN(S): Surgeon(s) and Role: * Christiano Huntley MD - Primary * Sandip Allen MD - Resident - Assisting Natural Science Curator: Salma Almodovar, ; Paul Cherry (), ; Frankie Ely (), SURGERY/PROCEDURE(S): Robotic assisted left radical nephrectomy PRE-OP/PRE-PROCEDURE DIAGNOSIS: polycystic kidney disease, ESRD, flank pain POST-OP/POST-PROCEDURE DIAGNOSIS: same ANESTHESIA: General ESTIMATED BLOOD LOSS: 75 mls IVF: 1,000 milliliters crystalloid UO: 0 milliliters SPECIMENS: left kidney IMPLANTABLE DEVICES: NONE DRAINS: None COMPLICATIONS: None PARTICIPATION IN SURGERY/PROCEDURE: I/primary surgeon/proceduralist performed the procedure with assistance. OPERATIVE INDICATIONS: Spencer Redding is a 57 year old year old patient with history of polycystic kidney disease, ESRD on HD, and left flank pain presents for left radical nephrectomy. Patient was advised of her options for treatment including all risks, benefits and alternatives to surgery.She ultimately elected to undergo robotic left radical nephrectomy. Patient was explained the risks, benefits, options and expected outcomes of the procedure and possible complications preoperatively. Informed consent was obtained. Patient was given perioperative antibiotics in preop holding area. General anesthesia was administered. A time out was performed and all present were in agreement. OPERATIVE PROCEDURE: A Michaels catheter was placed. Patient was placed in the left lateral decubitus position. All the pressure points were padded and patient secured to the table with Velcro foam straps and tape. Patient was prepped with Chloroprep and draped in usual sterile fashion. A Veress needle was placed lateral to the palpable kidney at the level of the tip of the 11th rib through an incision. Appropriate placement was confirmed by aspiration, drop test and low initial pressures. Pneumoperitoneum of 20 mmHg was established with expected abdominal distention. Using a 8-mm cannula, a robotic port was placed at the site of the veress needle. Initial view of the peritoneum demonstrated no intraabdominal injuries from the Veress needle. There were no adhesions. All other ports were placed under direct vision. Two additional 8 mm robotic ports and one 12mm robotic port under direct visualization. An 8 mm airseal port was placed just lateral to umbilicus inferior to the camera port. After placing the ports the pneumoperitoneum pressure was decreased to 15 mmHg. The robot was then docked to the ports. The peritoneum was incised lateral to the colon at the white line of Toldt from the kidney to the pelvic brim. The plane was found between the mesentery and Gerota's fascia. The kidney was extremely large with many visible cysts. The size of the kidney made dissection much more difficult and time consuming, especially at the inferior aspect of the dissection. The ureter and gonadal vessels were then identified. The psoas muscle was found laterally. The gonadal vein was able to be traced to the renal hilum, where it was seen inserting into the renal vein. The renal hilum was carefully dissected to isolate the renal vessels. Single renal vein and single renal artery were found and isolated and skeletenized free of hilar fat. These vessels were smaller than normal because of her known kidney disease. A robotic stapler was then used to staple across the renal vein/artery. There was no bleeding from the vessels stumps. Dissection was continued superiorly in order to isolate the kidney from the medial attachments. An adrenal sparing approach was taken by staying close to the kidney both medially and superiorly. Next, the lateral attachments were taken down with electrocautery. The ureter was stapled along with a few adjacent vessels. The kidney was finally freed. Pneumoperitoneum was decreased to 5 mmHg and hemostasis checked. There was great hemostasis at this time. The robot was undocked. The camera port and the port inferior were connected with the knife. The fascia was incised and the muscle was split in order to gain access to the peritoneum. The kidney was removed in its entirety. The left renal fossa was packed. There was a small bleeder that was controlled with a clip. Hemostasis was excellent. The posterior sheath was closed in running fashion with 0 PDS suture. The anterior sheath was closed in the same manner. The subcutaneous tissue was closed in running fashion with 3-0 vicryl. Exparel was injected into each incision (60cc total). The skin was closed with 4-0 (more content not included)... Normal [facility] PT panel Coag (PPP)on 2022 INR Coag (PPP) [Relative time] 1.2 {INR} Normal 0.9-1.3 [facility] Comment on above: Order Comment: Marielos siu Type: BLOOD SPECIMENOrdering Facility: [facility] Address: [address] [address] Result Comment: Amna min K Antagonist (VKA) Therapeutic Range: INR 2 to 3 (Target INR of 2.5) Note: For patients treated with VKA drugs, such as warfarin, the [employer] 2012 Guideline recommends a therapeutic INR range of 2 to 3 (target INR of 2.5). This recommendation includes high-risk patients with antiphospholipid syndrome with previous arterial or venous thromboembolism, current-generation mechanical or bioprosthetic aortic heart valve replacement. Note: Patients with mechanical aortic valve replacement and additional risk factors for thromboembolic events (atrial fibrillation, previous thromboembolism, LV dysfunction, hypercoagulable conditions) or an older generation mechanical AVR (i.e., ball in-Cage) or any mechanical MVR should have a INR therapeutic range of 2.5 to 3.5 (target INR of 3). Meena GH, et al. Chest 2012, 141:7S-47S Vladislav RA, et al. [facility] 2017, 70: 252-289 Performed By: #### 3 4528-0 ####[facility] LABORATORYCLIA [id number] [place] [address] [place] PT Coag (PPP) [Time] 12.3 s Normal 9.7-13.0 [facility] Comment on above: Order Comment: Marielos siu Type: BLOOD SPECIMENOrdering Facility: [facility] Address: [address] [address] Performed By: #### 3 4528-0 ####[facility] LABORATORYCLIA [id number] [address] [place] SURGICAL PATHOLOGYon 023 CASE REPORT Normal [facility] Comment on above: Order Comment: Marielos siu Type: TISSUE SPECIMENOrdering Facility: [facility] Address: [address] [address] Result Comment: Surg ical Pathology Report Case: [id number] Authorizing Provider: Christiano Huntley MD Collected: 02/28/2023 02:15 PM Ordering Location: [facility] Received: 03/01/2023 09:08 AM Pathologist: Janneth Galdamez MD Specimen: KIDNEY RADICAL RESECTION LEFT, left kidney for permanent Performed By: #### S ####[facility] LABORATORYCLIA [id number] [address] CLINICAL HISTORY Normal [facility] Comment on above: Order Comment: Speci men Type: TISSUE SPECIMENOrdering Facility: [facility] Address: [address] [address] Result Comment: Pre- op diagnosis: Polycystic kidney [Q61.3] Performed By: #### S ####[facility] LABORATORYCLIA [id number] [address] FINAL DIAGNOSIS Normal [facility] Comment on above: Order Comment: Speci men Type: TISSUE SPECIMENOrdering Facility: [facility] Address: [address] [place] [address] Result Comment: Mercedes islas, left, radical nephrectomy: - Benign kidney with numerous cysts, global sclerosis, tubular atrophy, interstitial fibrosis, chronic inflammation and nephrocalcinosis, clinically polycystic kidney disease. - Vascular calcifications. - Unremarkable margins of resection. Performed By: #### S ####[facility] LABORATORYCLIA [id number] [address] FINAL PERFORMING LAB Normal [facility] Comment on above: Order Comment: Speci men Type: TISSUE SPECIMENOrdering Facility: [facility] Address: [address] [place] [address] Result Comment: Diag nostic interpretation performed at [facility], [address] [place] [address] CLIA# [id number] Mechanical Planner: Trevor Curry M.D. Performed By: #### S ####[facility] LABORATORYCLIA [id number] [address] GROSS DESCRIPTION Normal [facility] Comment on above: Order Comment: Speci men Type: TISSUE SPECIMENOrdering Facility: [facility] Address: [place] [address] Result Comment: Mercedes ISLAS RADICAL RESECTION LEFT Received in formalin labeled with patient's name and left radical kidney resection is a 2920 g, 28 x 18 x 10 cm product of a left nephrectomy.The ureter is 7 cm in length and of normal caliber. The arterial margins show soft, moderate atherosclerotic plaque. The venous margin appears dilated. Gerota's fascia is present. There is a moderate amount of adherent perirenal fat. The specimen is bivalved and sectioned to show innumerable cystic lesions measuring up to 6.5 x 3.5 x 3 cm. The lesions appear to be filled with brown (blood-tinged) fluid and a small amount of dark red clotted blood. The cyst hannon show scattered calcification. There is a small amount of intervening normal appearing parenchyma. The pelvis is pale-rodas smooth and dilated. No tumor masses are grossly identified. Gas Cutting Machine Operator sections are submitted following decalcification in 5 cassettes as follows: A1 vascular and ureteral margins A 2-4 cystic lesions and intervening renal parenchyma A5 pelvic mucosa Gross examination performed at [facility], [address] [place] [address] CLIA# [id number] [facility] March 01, 2023 11:00 AM Performed By: #### S ####[facility] LABORATORYCLIA [id number] [place] [address] [place] Claudia 02-18-2023 ALFAN Telephone (UROLAE) SPENCER REDDING ([id number]) 1965 F Date Time Provider Department 02/18/23 CHRISTIANO HUNTLEY During your visit today, we recorded the following information about you: Laya Alonzo 02/18/2023 3:40 PM Signed ----- Message from Christiano Huntley MD sent at 02/17/2023 4:55 PM EDT ----- Here are the test results.Keep follow up appointment for nephrectomy as planned Laya Alonzo 02/18/2023 3:41 PM Signed I called and notified the patient about the CT results and the message noted below from Dr. Huntley. She seemed to have a clear understanding. Allergies As of Date: 02/18/2023 Noted Allergy Reaction PENICILLINS 11/05/2015 4 - Hives 2 - Rash STRAWBERRY 04/15/2017 11 - Vomiting 2 - Rash ETODOLAC 05/03/2016 2 - Rash SEVELAMER 05/03/2016 8 - GI Upset SULFAMETHOXAZOLE-TRIMET HOPRIM 05/03/2016 8 - GI Upset 2 - Rash TRAMADOL 05/03/2016 5 - Intolerance 2 - Rash Date Reviewed: 02/18/2023 Reviewed by: Licha Hoffmann APRN.WIRE FRAME 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 - Fully Assessed Reason for Visit: Results (CT) [Other] Prescriptions as of 02/18/2023 - fludrocortisone (FLORINEF) 0.1 mg tablet Take 0.1 mg by mouth once daily. - RANI-YAHIR 0.8 mg tab Take 1 tablet by mouth every afternoon. - calcium carbonate (TUMS ULTRA) 400 mg (1,000 mg) chew Take 1,000 mg by mouth once daily. - gabapentin (NEURONTIN) 600 mg tablet Take 600 mg by mouth daily at bedtime. - sevelamer carbonate (RENVELA) 800 mg tablet Take 5 tablets by mouth three times daily with meals. - Cholecalciferol, Vitamin D3, 50 mcg (2,000 unit) cap Take by mouth once daily. - zolpidem (AMBIEN) 5 mg tablet Take 10 mg by mouth at bedtime as needed. - nitroglycerin sublingual (NITROQUICK) 0.4 mg SL tablet DISSOLVE 1 TAB UNDER THE TONGUE EVERY 5 MINUTES NEEDED FOR CHEST PAIN - atorvastatin (LIPITOR) 40 mg tablet TAKE 1 TABLET BY MOUTH EVERY DAY AT BEDTIME FOR CHOLESTEROL - metoprolol tartrate, short acting, (LOPRESSOR) 25 mg tablet Take 25 mg by mouth once daily. - warfarin (COUMADIN) 7.5 mg tablet Take 7 mg by mouth once daily. - sertraline (ZOLOFT) 50 mg tablet Take 50 mg by mouth once daily. Problem List As Of Date 02/18/2023 Noted Resolved Polycystic kidney [Q61.3] 01/28/2022 Gross hematuria [R31.0] 01/28/2022 Hydronephrosis of right kidney [N13.30] 01/28/2022 Coronary artery abnormality [Q24.5] 02/03/2022 History of recurrent deep vein thrombosis (DVT)*02/03/2022 Obesity, Class II, BMI 35-39.9 [E66.9] 02/09/2022 Abdominal pain [R10.9] 02/10/2023 Obesity, Class I, BMI 30-34.9 [E66.9] 02/12/2023 Preop examination [Z01.818] 02/16/2023 Primary hypertension [I10] 05/03/2016 Anemia in chronic kidney disease [N18.9, D63.1] 06/12/2013 Atherosclerosis of coronary artery [I25.10] 05/04/[address] [Z95.810] 06/21/2018 Cardiomyopathy (HCC) [I42.9] 05/03/2016 Dependence on renal dialysis (HCC) [Z99.2] 09/08/2007 DVT (deep venous thrombosis) (HCC) [I82.409] 07/11/2006 End-stage renal disease (HCC) [N18.6] 05/03/2016 History of thrombosis [Z86.718] 05/03/2016 Mixed hyperlipidemia [E78.2] 02/17/2023 Encounter Status:Closed by LAYA ALONZO on 02/18/23 [facility] HISTORY PHYSICALon 3 HISTORY PHYSICAL HNO ID: [id number] Author: Licha Hoffmann APRN.CNP Service: ? Author Type: Nurse Practitioner Type: HANDP Filed: 02/18/2023 12:24 PM Note Text: HISTORY AND PHYSICAL EXAMINATION SERVICE DATE: 02/18/2023 SERVICE TIME: 8:40 AM PRIMARY CARE PHYSICIAN: Trevor Vieyra MD REASON FOR VISIT: Spencer Redding is a 57 year old female who is scheduled for Procedure(s): XI ROBOTIC LAPAROSCOPIC NEPHRECTOMY RADICAL (Left) at the request of Dr. Christiano Huntley for routine HANDP. My final recommendation will be communicated back to the requesting physician by way of shared medical record or letter. To perform a comprehensive review of the patients past medical history, assess their current health status and obtain any additional testing required based on anesthesia guidelines. To assess and identify potential anesthesia problems, particularly those that may suggest potential complications or contraindications to the planned procedure. Subjective The patient has the following: ACTIVE PROBLEM LIST Polycystic Kidney Gross Hematuria Hydronephrosis of Right Kidney Coronary Artery Abnormality History of Recurrent Deep Vein Thrombosis (Dvt) Obesity, Class II, Bmi 35-39.9 Abdominal Pain Obesity, Class I, Bmi 30-34.9 Preop Examination Primary Hypertension Anemia in Chronic Kidney Disease Atherosclerosis of Coronary Artery Cardiac Defibrillator in Place Cardiomyopathy (Hcc) Dependence On Renal Dialysis (Hcc) Dvt (Deep Venous Thrombosis) (Hcc) End-Stage Renal Disease (Hcc) History of Thrombosis Mixed Hyperlipidemia COVID-19 Immunization Status Overdue - COVID-19 VACCINE (4 - Pfizer series) Overdue since 07/10/2021 05/15/2021 Imm Admin: COVID-19 original vaccine, full dose, monovalent (MODERNA) 10/14/2020 Imm Admin: COVID-19 original vaccine, age 12+ yr, monovalent (PFIZER-BIONTECH - PURPLE TOP) 09/23/2020 Imm Admin: COVID-19 original vaccine, age 12+ yr, monovalent (PFIZER-BIONTECH - PURPLE TOP) CHIEF COMPLAINT: Polycystic kidney, Preopeartive evaluation HPI: 57 year old female presents for presurgical testing. She has been diagnosed with polycystic kidney disease. She has been on hemodialysis for 15 years. She receives hemodialysis Tuesday, Tuesday and Tuesday at [facility]. She has a left upper arm graft. She is status post right radical nephrectomy 02/22/2022. Current surgery scheduled is left radical nephrectomy. She reports constant left back/kidney, flank and abdominal achiness 12/18. After discussion with the surgeon patient has agreed to surgical intervention. REVIEW OF SYSTEMS: General: No weight loss, malaise or fevers. Neurological: Negative for: dementia, headaches, impaired sensorium, multiple sclerosis, Parkinson's disease, seizures, TIA and strokes. Respiratory: No history of current cough or dyspnea, or pneumonia in the past 6 weeks. No history of respiratory/pulmonary symptoms or problems. Negative for: tobacco use and obstructive sleep apnea. Cardiovascular: Positive for: [facility] anticoagulation therapy, CAD and hypertension Patient's last office visit with liquid chlorine operator, Dr. Garvin, was February 2023. Negative for: angina, arrhythmia, atrial fibrillation, chest pain, CHF, DVT/PE, hyperlipidemia, murmur/valvular heart disease, PTCA, PVD, open heart surgery and valve surgery. GI: No history of GI symptoms or problems. No history of esophageal varices, recent ascites, or ETOH greater than 2 drinks per day. Negative for: abdominal pain, dysphagia, nausea and vomiting. : See HPI. Positive for: on dialysis and renal failure. The dialysis type is HD. Patient's renal failure is chronic. Endocrine: No history of diabetes. Has not taken steroids within the past 30 days. No history of endocrinological symptoms or problems. Hematology: Positive for: chronic anti-coagulation/platel et meds. Patient is on anti-coagulation/platel et medication(s): Coumadin. Negative for: anemia, bruises/bleeds easily, factor V Leiden, hemophilia, thrombocytopenia, von Willebrand disease and transfusion of at least 4 units within 72 hours prior to surgery. Oncology: No history of CA metastasis, chemo within 30 days, or radiotherapy within 90 days. No history of oncological symptoms or problems. Psych: No history of psychiatric symptoms or problems. Musculoskeletal: Negative for joint pain or swelling, back pain or muscle pain. Skin: Negative for lesions, rash and itching. PAST MEDICAL HISTORY Diagnosis Date AICD (automatic cardioverter/defibrilla tor) present 06/2016 Anxiety Arthritis Blood clot in vein lower left leg CAD (coronary artery disease) s/p cardiac stent x6 2015; last cardiology visit 12/25/[address] Garvin; pt taking Plavix Chronic kidney disease Delayed emergence from general anesthesia Depression DVT (deep vein thrombosis) in 2006 left bel (more content not included)... Normal [facility] TYPE AND SCREEN,30 DAYon ABO O Normal [facility] Comment on above: Order Comment: Speci men Type: BLOOD SPECIMENOrdering Facility: [facility] Address: [address] [place] [id number] Performed By: #### T SCR30 ####[facility] BLOOD BANKCLIA [id number] [address] HISTORICAL AB SCR STATUS Negative Normal [facility] Comment on above: Order Comment: Speci men Type: BLOOD SPECIMENOrdering Facility: [facility] Address: [address] [place] [address] Performed By: #### T SCR30 ####[facility] BLOOD BANKCLIA [id number] [address] Rh Nom (Bld) Negative Normal [facility] Comment on above: Order Comment: Speci men Type: BLOOD SPECIMENOrdering Facility: [facility] Address: [address] [place] [address] Performed By: #### T SCR30 ####[facility] BLOOD BANKCLIA [id number] [address] NURSING PROGon 02-17-2023 NURSING PROG HNO ID: [id number] Author: Gracie Glass RN Service: ? Author Type: Registered Nurse Type: Nursing Progress Note Filed: 02/17/2023 9:05 AM Note Text: Type of Device:SICD AICD?:Yes Brand: VivoText, Magnet rate: N/A Indication: NOT INDICATED Pacemaker Dependent: No Underlying Rhythm: SINUS AT 60 Recommendations: DEACTIVATE ICD Call back number with questions: [phone] Normal [facility] CT ABD/PEL WO IVCONon 2022 CT ABD/PEL WO IVCON * * *Final Report* * * DATE OF EXAM: Feb 16 2023 8:49AM [facility] 0531 - CT ABD/PEL WO IVCON / PROCEDURE REASON: Polycystic kidney * * * * Physician Interpretation * * * * EXAMINATION: CT ABDOMEN AND PELVIS WITHOUT IV CONTRAST CLINICAL HISTORY: Polycystic kidney. TECHNIQUE: Non-IV contrast imaging of the abdomen and pelvis was performed using standard technique, scanning from just above the dome of the diaphragm to the symphysis pubis. Unenhanced imaging is limited for the evaluation of some intra-abdominal and pelvic pathology. MQ: CTAPWO_3 Contrast: IV: None CT Radiation dose: Integrated Dose-length product (DLP) for this visit = 634 mGy*cm. CT Dose Reduction Employed: Automated exposure control(AEC) and iterative recon COMPARISON: CT flank on 02/25/2022 RESULT: Abdomen / Pelvis: Liver: Unremarkable. Biliary: No bile duct dilation. No visible gallbladder stones. Spleen: Borderline splenomegaly is noted. No mass lesion seen. Pancreas: Unremarkable. Adrenals: No mass. Kidneys: The right kidney is absent. There is a significantly enlarged left kidney, with innumerable cysts with variable sizes. Numerous punctate and linear calcifications also noted in the kidney. No left-sided hydronephrosis. GI Tract: No bowel dilation. The appendix is identified and normal in appearance. No diverticulitis. Lymph Nodes: No lymphadenopathy. Mesentery/peritoneum: No ascites. Retroperitoneum: No mass. Vasculature: There are atherosclerotic calcifications in the abdomen aorta and its branches. Pelvis: No mass or ascites. Bones/Soft Tissues: Small fat-containing paraumbilical hernia is visualized. The spine shows degenerative changes. Lower thorax: No pleural effusions. Mild left basilar atelectasis is demonstrated. There is a small hiatal hernia. There are atherosclerotic calcifications in the coronary circulations, with what appears to be a coronary stent. Anatomy Professor (topogram) images: No additional findings. IMPRESSION: Polycystic kidney disease. Borderline splenomegaly. Centrifugal Extractor Operator: ROSY Transcribe Date/Time: Feb 17 2023 3:01P Dictated by : MYLA EASON MD This examination was interpreted and the report reviewed and electronically signed by: MYLA EASON MD on Feb 17 2023 3:09PM EST [id number] Normal [facility] CNOVon 02-10-2023 CNOV Office Visit (UROLMD ) SPENCER REDDING ([id number]) 1965 F Date Time Provider Department 02/10/23 8:45 AM CHRISTIANO HUNTLEY UROLMD During your visit today, we recorded the following information about you: Weight Height 84.8 kg 1.588 m Christiano Huntley MD 02/10/2023 9:21 AM Signed HISTORY OF PRESENT ILLNESS: Spencer Redding is a 57 year old female with complaints of left flank pain. She is. That resolved after right radical nephrectomy. She currently makes urine. The drain was clear on the right side 02/22/2022: RAL Lap Right Radical Nephrectomy A. Kidney, right, radical nephrectomy: - Benign kidney with histologic changes of end stage renal disease, innumerable cysts, severe nephrocalcinosis and calcific arteriosclerosis, clinically polycystic kidney disease. - Unremarkable margins of the resection. 01/28/2022: Cystoscopy: Sunset appearing bladder, blood emanating from the right ureteral orifice 02/15/2020: Cystoscopy and pyelograms: (-). 2017: Coronary stents x 5 09/02/2015: Cystoscopy and pyelograms: Negative 06/27/2015: Right upper extremity fistula 07/11/2007: Left upper extremity fistula 2004: DVT without PE No results found for this basename: uglucpoc,ubilipoc,uketo npoc,usgpoc,uhbpoc,uphp oc,upropoc,uuropoc,unit poc,uwbcpo- c,ucolpoc,uclarpoc @[facility]@ ALLERGIES ALLERGIES Allergen Reactions Penicillins Hives, Rash [place] Vomiting, Rash Etodolac Rash Sevelamer GI Upset Sulfamethoxazole-Tr* GI Upset, Rash Tramadol Intolerance, Rash MEDICATIONS: gabapentin (NEURONTIN) 600 mg tablet Take 600 mg by mouth daily at bedtime. sevelamer carbonate (RENVELA) 800 mg tablet Take 5 tablets by mouth three times daily with meals. Cholecalciferol, Vitamin D3, 50 mcg (2,000 unit) cap Take by mouth once daily. clopidogrel (PLAVIX) 75 mg tablet Take 75 mg by mouth once daily. (Patient not taking: Reported on 04/08/2022) zolpidem (AMBIEN) 5 mg tablet Take 10 mg by mouth at bedtime as needed. nitroglycerin sublingual (NITROQUICK) 0.4 mg SL tablet DISSOLVE 1 TAB UNDER THE TONGUE EVERY 5 MINUTES NEEDED FOR CHEST PAIN atorvastatin (LIPITOR) 40 mg tablet TAKE 1 TABLET BY MOUTH EVERY DAY AT BEDTIME FOR CHOLESTEROL metoprolol tartrate, short acting, (LOPRESSOR) 25 mg tablet Take 25 mg by mouth once daily. warfarin (COUMADIN) 7.5 mg tablet Take 7.5 mg by mouth once daily. sertraline (ZOLOFT) 50 mg tablet Take 50 mg by mouth once daily. HISTORIES PAST MEDICAL HISTORY Diagnosis Date Anxiety Arthritis CAD (coronary artery disease) s/p cardiac stent x6 2015; last cardiology visit 12/25/[address] Garvin; pt taking Plavix Delayed emergence from general anesthesia Depression DVT (deep vein thrombosis) in 2006 pt taking Warfarin ESRD (end stage renal disease) on dialysis (HCC) MWF Hx of cardiovascular stress test 2016 negative for ischemia, EF 70% Hx of echocardiogram 02/2017 EF 60% moderate LVH, no valvular abnormalities- received from [facility]- on hard chart Hyperlipidemia Hypertension Polycystic kidney disease Thyroid disease Ventricular tachycardia (HCC) S/P defibrillator 2015 PAST SURGICAL HISTORY Procedure Laterality Date AV FISTULA OR GRAFT VENOUS Left 2016 AV FISTULA REPAIR HX Right 2014 CYST/MOLE REMOVAL benign- on neck CYSTOSCOPY 02/2020 RETROPYELOGRAM FISTULA Left 08/2016 dialysis FISTULA Right 2015 dialysis PAST SURGICAL HISTORY OF Defibrillator placed 2015; generator change 11/2019 PAST SURGICAL HISTORY OF 02/22/2022 obotic Assisted Laparoscopic Right Radical Nephrectomy, robotic renal cyst decortication Dr. Huntley PICC LINE PRQ CARDIAC STENT W/ANGIO 1 VSL 2015 6 cardic stents THYROIDECTOMY TOTAL/COMPLETE FAMILY HISTORY Problem Relation Age of Onset Diabetes Mother Diabetes Sister Diabetes Maternal Grandmother Heart Father Kidney Disease Father Heart Brother Kidney Disease Brother Social History Tobacco Use Smoking status: Never Smokeless tobacco: Never Vaping Use Vaping Use: Never used Substance Use Topics Alcohol use: Not Currently Drug use: Never REVIEW OF SYSTEMS: Const: Well appearing, in no acute distress, well-hydrated, well-nourished, alert, awake, oriented to time, place and person. : See HPI The remainder of the ROS was reviewed and is negative. PHYSICAL EXAMINATION: VITAL SIGNS: Ht 5' 2.5 (1.59m) Wt 187 lb (84.8kg) BMI 33.64 kg/(m2). General appearance: Well appearing, in no acute distress, well-hydrated, well-nourished, alert, awake, oriented to time, place and person. Heart: RRR without murmur, gallop, or rubs. No ectopy Lungs: Lungs clear to auscultation. No wheezing, rhonchi, rales Neck: Normal Abdomen: Normal abdominal exam, soft, nontender, right-sided incisions are all intact without evidence of hernia nor paresthesias. There is significa (more content not included)... Normal [facility] INR in Blood by Coagulation assayOrdered By: Trevor Vieyra on 01-20-2023 INR Coag (Bld) [Relative time] 3.0 {INR} [facility] Laboratory - CoagulationOrde red By: Trevor Vieyra on 01-20-2023 PT Coag (PPP) [Time] 31.2 s 11.7-14.9 [facility] INR in Blood by Coagulation assayOrdered By: Trevor Vieyra on 12-09-2022 INR Coag (Bld) [Relative time] 2.8 {INR} [facility] Laboratory - CoagulationOrde red By: Trevor Vieyra on 12-09-2022 PT Coag (PPP) [Time] 29.5 s 11.7-14.9 [facility] INR in Blood by Coagulation assayOrdered By: Dr. Vieyra on 11-16-2022 INR Coag (Bld) [Relative time] 2.7 {INR} [facility] Laboratory - CoagulationOrde red By: Dr. Vieyra on 11-16-2022 PT Coag (PPP) [Time] 28.8 s 11.7-14.9 [facility] INR in Blood by Coagulation assayOrdered By: Dr. Vieyra on 11-04-2022 INR Coag (Bld) [Relative time] 2.4 {INR} [facility] Laboratory - CoagulationOrde red By: Dr. Vieyra on 11-04-2022 PT Coag (PPP) [Time] 25.4 s 11.7-14.9 [facility] INR in Blood by Coagulation assayOrdered By: Dr. Vieyra on 10-28-2022 INR Coag (Bld) [Relative time] 1.7 {INR} [facility] Laboratory - CoagulationOrde red By: Dr. Vieyra on 10-28-2022 PT Coag (PPP) [Time] 20.0 s 11.7-14.9 [facility] INR in Blood by Coagulation assayOrdered By: Dr. Vieyra on 10-25-2022 INR Coag (Bld) [Relative time] 1.4 {INR} [facility] Laboratory - CoagulationOrde red By: Dr. Vieyra on 10-25-2022 PT Coag (PPP) [Time] 17.1 s 11.7-14.9 [facility] INR in Blood by Coagulation assayOrdered By: Dr. Vieyra on 10-19-2022 INR Coag (Bld) [Relative time] 4.5 {INR} [facility] Comment on above: CRITICAL VALUE VERIF IED. [facility] Queta Medeiros.RESULTS READ BACK BY SAME . Laboratory - CoagulationOrde red By: Dr. Vieyra on 10-19-2022 PT Coag (PPP) [Time] 42.9 s 11.7-14.9 [facility] INR in Blood by Coagulation assayOrdered By: Dr. Vieyra on 2022 INR Coag (Bld) [Relative time] 3.5 {INR} [facility] Laboratory - CoagulationOrde red By: Dr. Vieyra on 2022 PT Coag (PPP) [Time] 35.2 s 11.7-14.9 [facility] INR in Blood by Coagulation assayOrdered By: Dr. Vieyra on 08-17-2022 INR Coag (Bld) [Relative time] 2.9 {INR} [facility] Laboratory - CoagulationOrde red By: Dr. Vieyra on 08-17-2022 PT Coag (PPP) [Time] 30.1 s 11.7-14.9 [facility] INR in Blood by Coagulation assayOrdered By: Dr. Vieyra on 07-29-2022 INR Coag (Bld) [Relative time] 1.9 {INR} [facility] Laboratory - CoagulationOrde red By: Dr. Vieyra on 07-29-2022 PT Coag (PPP) [Time] 21.7 s 11.7-14.9 [facility] Basophil percentageOrdered B y: Dr. Vieyra on 07-20-2022 Cholesterol [Mass/Vol] 167 mg/dL <200 [facility] Comment on above: <200 mg/dL Desirable 200-240 mg/dL Borderline >240 mg/dL High Risk Triglyceride [Mass/Vol] 195 mg/dL <199 [facility] Comment on above: The drugs N-Acetylcy steine and Metamizole may falsely depress this assay.Serum Triglycerides Reference Interval Normal <150 mg/dL Borderline high 150 - 199 mg/dL High 200 - 499 mg/dL Very High > or = 500 mg/dL INR in Blood by Coagulation assayOrdered By: Dr. Vieyra on 07-20-2022 INR Coag (Bld) [Relative time] 4.7 {INR} [facility] Comment on above: CRITICAL VALUE VERIF IED. CALLED TO KIYA APODACA (PLAB)07/20/22 1528 Rl Gorman.RESULTS READ BACK BY SAME. Laboratory - Chemistry and C hemistry - challengeOrdered By: Dr. Vieyra on 07-20-2022 Free T4 [Mass/Vol] 0.60 ng/dL 0.76-1.46 [facility] Laboratory - CoagulationOrde red By: Dr. Vieyra on 07-20-2022 PT Coag (PPP) [Time] 43.9 s 11.7-14.9 [facility] No Panel InformationOrdered By: Dr. Vieyra on 07-20-2022 Thyroid Stimulating Hormone (TSH) 2.59 uIU/mL 0.358-3.74 [facility] Serum or plasma cholesterol in HDL measurement (mass/volume)Ordered By: Dr. Vieyra on 07-20-2022 Cholesterol in HDL [Mass/Vol] 41 mg/dL >40 [facility] Comment on above: The drugs N-Acetylcy steine and Metamizole may falsely depress this assay. Reference Range HDL <40 mg/dL Low HDL Cholesterol HDL >or= 60 mg/dL High HDL Cholesterol Serum or plasma cholesterol in VLDL measurement (mass/volume)Ordered By: Dr. Vieyra on 07-20-2022 Cholesterol in VLDL [Mass/Vol] 39 mg/dL 5-40 [facility] Serum or plasma low density lipoprotein (LDL) cholesterol measurement (mass/volume)Ordered By: Dr. Vieyra on 07-20-2022 Cholesterol in LDL [Mass/Vol] 87 mg/dL 0-130 [facility] Whole blood hemoglobin A1c/t otal hemoglobin ratio (mass fraction)Ordered By: Dr. Vieyra on 07-20-2022 HbA1c (Bld) [Mass fraction] 5.4 % 3.8-5.6 [facility] Comment on above: Normal < 5.7 % Predi abetic 5.7 - 6.4 % Diabetic >or= 6.5 % Please note range changes. INR in Blood by Coagulation assayOrdered By: Dr. Vieyra on 05-27-2022 INR Coag (Bld) [Relative time] 3.6 {INR} [facility] Laboratory - CoagulationOrde red By: Dr. Vieyra on 05-27-2022 PT Coag (PPP) [Time] 35.4 s 11.7-14.9 [facility] INR in Blood by Coagulation assayon 03-30-2022 INR Coag (Bld) [Relative time] 2.1 {INR} [facility] Work Phone: Laboratory - Coagulationon 0 03-30-2022 PT Coag (PPP) [Time] 23.0 s 11.7-14.9 [facility] Work Phone: Absolute lymphocyte counton 03-15-2022 Lymphocytes Auto (Unsp spec) [#/Vol] 0.89 10*3/uL 0.83-4.51 [facility] Work Phone: Basophil percentageon 2021 Basophils/100 WBC (Bld) 1.1 % 0-1 [facility] Work Phone: Chloride [Moles/Vol] 105 mmol/L 98-107 [facility] Work Phone: Eosinophils/100 WBC (Bld) 12.6 % 0-5 [facility] Work Phone: Glucose [Mass/Vol] 106 mg/dL 74-106 [facility] Work Phone: Comment on above: Fasting Glucose resu lt from 100 to 125 mg/dL suggests IMPAIRED HOMEOSTASIS per A.D.A. criteria. Neutrophils (Bld) [#/Vol] 4.1 10*3/uL 2.0-7.7 [facility] Work Phone: Neutrophils/100 WBC (Bld) 66.6 % 47-70 [facility] Work Phone: Potassium [Moles/Vol] 5.0 mmol/L 3.5-5.1 [facility] Work Phone: Sodium [Moles/Vol] 143 mmol/L 136-145 [facility] Work Phone: [phone] WBC (Bld) [#/Vol] 6.2 10*3/uL 4.4-11.[address] [facility] Work Phone: Blood erythrocytes count (nu mber/volume)on 03-15-2022 RBC (Bld) [#/Vol] 3.17 10*6/uL 4.2-5.4 [facility] Work Phone: Blood hemoglobin measurement (mass/volume)on 03-15-2022 Hemoglobin (Bld) [Mass/Vol] 8.0 g/dL 12.0-15.0 [facility] Work Phone: [phone] Blood lymphocytes/100 leukoc yteson 03-15-2022 Lymphocytes/100 WBC (Bld) 14.4 % 19-41 [facility] Work Phone: Blood monocytes/100 leukocyt eson 03-15-2022 Monocytes/100 WBC (Bld) 5.0 % 0-10 [facility] Work Phone: Blood platelet mean volumeon 03-15-2022 Platelet mean volume (Bld) [Entitic vol] 9.5 fL 6.2-12.0 [facility] Work Phone: Determination of erythrocyte mean corpuscular volume (MCV)on 03-15-2022 MCV (RBC) [Entitic vol] 87.7 fL 81-99 [facility] Work Phone: Hematocrit Auto (Bld) [Volum e fraction]on 03-15-2022 Hematocrit (Bld) [Volume fraction] 27.8 % 37-47 [facility] Work Phone: INR in Blood by Coagulation assayon 03-15-2022 INR Coag (Bld) [Relative time] 2.0 {INR} [facility] Work Phone: Laboratory - Chemistry and C hemistry - challengeon 03-15-2022 CO2 [Moles/Vol] 28.0 mmol/L 21.0-32.0 [facility] Work Phone: Natriuretic peptide B (Bld) [Mass/Vol] 972.2 pg/mL 0-100 [facility] Work Phone: Urea nitrogen/Creatinine [Mass ratio] 3.9 mg/mg 10-20 [facility] Work Phone: Laboratory - Coagulationon 0 03-15-2022 PT Coag (PPP) [Time] 21.9 s 11.7-14.9 [facility] Work Phone: Laboratory - Hematology and Cell countson 03-15-2022 Erythrocyte distribution width (RBC) [Entitic vol] 53.1 fL 35.1-43.9 [facility] Work Phone: Erythrocyte distribution width (RBC) [Ratio] 17.0 % 11.6-14.6 [facility] Work Phone: Immature granulocytes/100 WBC (Bld) 0.300 % 0.0-0.9 [facility] Work Phone: Comment on above: IG% - Immature Granu locytes (promyelocytes, myelocytes and metamyelocytes) > 1% indicates that a LEFT SHIFT is Present. MCH (RBC) [Entitic mass] 25.2 pg 27.0-32.0 [facility] Work Phone: Nucleated RBC/100 WBC (Bld) [Ratio] 0 % 0-5 [facility] Work Phone: MCHC Auto (RBC) [Mass/Vol]on 03-15-2022 MCHC (RBC) [Mass/Vol] 28.8 g/dL 32-36 [facility] Work Phone: No Panel Informationon 09-05 -2022 Estimated Creatinine Clearance Calc 4.77 ml/min [facility] Work Phone: Estimated GFR (MDRD) Amer 5 mL/min >60 [facility] Work Phone: Comment on above: GFR Calc Estimated GFR (MDRD) Non-Af Amer 4 mL/min >60 [facility] Work Phone: Comment on above: Non- GFR Calc Troponin I High Sensitivity 62 pg/mL 3.0-54.0 [facility] Work Phone: Comment on above: Please Note: New Chandrika t Units and Gender Specific Reference Ranges. For more information see Policy Stat Procedure [place] High Sensitivity Troponin (TNIH) and attachments. Platelets bldon 03-15-2022 Platelets (Bld) [#/Vol] 354 10*3/uL 150-450 [facility] Work Phone: Serum or plasma calcium destini urement (mass/volume)on 03-15-2022 Calcium [Mass/Vol] 9.1 mg/dL 8.5-10.1 [facility] Work Phone: Serum or plasma creatinine m easurement (mass/volume)on 03-15-2022 Creatinine [Mass/Vol] 10.30 mg/dL 0.55-1.02 [facility] Work Phone: Comment on above: Critical Result(s) C alled at: 09:52:38 03/15/2022 by: Víctor Wang. Niels Ott RN (ER). Results read back by same.The validity of the calculated GFR & GFRAA in patients over 70 years has not been determined. Clinical correlation is essential. Serum or plasma urea nitroge n measurement (mass/volume)on 03-15-2022 Urea nitrogen [Mass/Vol] 40 mg/dL 7-18 [facility] Work Phone: Thin prep Papanicolaou smear with manual screeningon 03-15-2022 Thin prep Papanicolaou smear with manual screening 10 5-15 [facility] Work Phone: [facility] CHECKon 2 Detection Configuration (Vent) 2 - Zone [facility] FastVT_Detection Interval 300 ms [facility] FastVT_Therapy Configuration 0 ATP(s) + 1 Shock(s) [facility] ICD FastVT DetectionStatus ENABLED [facility] ICD-Device Mfg BSX [facility] ICD-Rhythm Sinus rhythm @ 63 bpm [facility] [id number] 0 [facility] ICD-SHOCKSDELIVEREDVENT RICULAR 0 [facility] Lead1 Mfg [place] [employer] [facility] Location Unknown [facility] MDT_PROG_TACHY_ZONE_DET ECTIONS_STATUS ENABLED [facility] Model A219 EMBLEM MRI S-ICD [place] [facility] Model 3401 EMBLEM S-ICD Electrode [facility] Pacemaker Dependent? NO [facility] Serial Number [id number] [facility] Serial Number [id number] [facility] Therapy Status (Vent) Enabled [facility] VF Zone Detection Interval 240 ms [facility] VF Zone Therapy Configuration 0 ATP(s) + 1 Shock(s) [facility] No Panel Informationon 02-22 BLANK _ [facility] Implant Date 11/21/2019 [facility] CONFIRM BLOOD TYPEon 022 ABO O [facility] Rh Nom (Bld) Negative [facility] HEMOGLOBIN (HGB)on Hemoglobin (Bld) [Mass/Vol] 10.0 g/dL Low 11.5 - 15.5 g/dL [facility] Hematocrit Auto (Bld) [Volum e fraction]on 02-11-2022 Hematocrit (Bld) [Volume fraction] 35.7 % Low 36.0 - 46.0 % [facility] Blood hemoglobin measurement (mass/volume)on 02-01-2022 Hemoglobin (Bld) [Mass/Vol] 9.0 g/dL 12.0-15.0 [facility] Work Phone: INR in Blood by Coagulation assayon 01-30-2022 INR Coag (Bld) [Relative time] 1.8 {INR} [facility] Work Phone: Laboratory - Coagulationon 0 01-30-2022 PT Coag (PPP) [Time] 20.6 s 11.7-14.9 [facility] Work Phone: Absolute lymphocyte counton 01-26-2022 Lymphocytes Auto (Unsp spec) [#/Vol] 0.83 10*3/uL 0.83-4.51 [facility] Work Phone: Basophil percentageon 2021 Basophils/100 WBC (Bld) 0.7 % 0-1 [facility] Work Phone: Chloride [Moles/Vol] 98 mmol/L 98-107 [facility] Work Phone: Eosinophils/100 WBC (Bld) 3.2 % 0-5 [facility] Work Phone: Glucose [Mass/Vol] 105 mg/dL 74-106 [facility] Work Phone: Comment on above: Fasting Glucose resu lt from 100 to 125 mg/dL suggests IMPAIRED HOMEOSTASIS per A.D.A. criteria. Neutrophils (Bld) [#/Vol] 4.1 10*3/uL 2.0-7.7 [facility] Work Phone: Neutrophils/100 WBC (Bld) 73.6 % 47-70 [facility] Work Phone: Potassium [Moles/Vol] 4.8 mmol/L 3.5-5.1 [facility] Work Phone: Sodium [Moles/Vol] 137 mmol/L 136-145 [facility] Work Phone: WBC (Bld) [#/Vol] 5.6 10*3/uL 4.4-11.0 [facility] Work Phone: Blood erythrocytes count (nu mber/volume)on 01-26-2022 RBC (Bld) [#/Vol] 3.90 10*6/uL 4.2-5.4 [facility] Work Phone: Blood hemoglobin measurement (mass/volume)on 01-26-2022 Hemoglobin (Bld) [Mass/Vol] 10.2 g/dL 12.0-15.0 [facility] Work Phone: Blood lymphocytes/100 leukoc yteson 01-26-2022 Lymphocytes/100 WBC (Bld) 14.8 % 19-41 [facility] Work Phone: Blood monocytes/100 leukocyt eson 01-26-2022 Monocytes/100 WBC (Bld) 7.5 % 0-10 [facility] Work Phone: Blood platelet mean volumeon 01-26-2022 Platelet mean volume (Bld) [Entitic vol] 9.1 fL 6.2-12.0 [facility] Work Phone: Determination of erythrocyte mean corpuscular volume (MCV)on 01-26-2022 MCV (RBC) [Entitic vol] 87.9 fL 81-99 [facility] Work Phone: Hematocrit Auto (Bld) [Volum e fraction]on 01-26-2022 Hematocrit (Bld) [Volume fraction] 34.3 % 37-47 [facility] Work Phone: INR in Blood by Coagulation assayon 01-26-2022 INR Coag (Bld) [Relative time] 4.2 {INR} [facility] Work Phone: Comment on above: CRITICAL VALUE VERIF IED. CALLED TO CNOSTANZA MCCOY ED01/26/22 [facility] Lucita Chow.RESULTS READ BACK BY SAME . Laboratory - Chemistry and C hemistry - challengeon 01-26-2022 CO2 [Moles/Vol] 31.0 mmol/L 21.0-32.0 [facility] Work Phone: Urea nitrogen/Creatinine [Mass ratio] 2.8 mg/mg 10-20 [facility] Work Phone: Laboratory - Coagulationon 0 01-26-2022 PT Coag (PPP) [Time] 40.1 s 11.7-14.9 [facility] Work Phone: Laboratory - Hematology and Cell countson 01-26-2022 Erythrocyte distribution width (RBC) [Entitic vol] 50.7 fL 35.1-43.9 [facility] Work Phone: Erythrocyte distribution width (RBC) [Ratio] 16.0 % 11.6-14.6 [facility] Work Phone: Immature granulocytes/100 WBC (Bld) 0.200 % 0.0-0.9 [facility] Work Phone: Comment on above: IG% - Immature Granu locytes (promyelocytes, myelocytes and metamyelocytes) > 1% indicates that a LEFT SHIFT is Present. MCH (RBC) [Entitic mass] 26.2 pg 27.0-32.0 [facility] Work Phone: Nucleated RBC/100 WBC (Bld) [Ratio] 0 % 0-5 [facility] Work Phone: MCHC Auto (RBC) [Mass/Vol]on 01-26-2022 MCHC (RBC) [Mass/Vol] 29.7 g/dL 32-36 [facility] Work Phone: No Panel Informationon 01-26 Estimated Creatinine Clearance Calc 5.95 ml/min [facility] Work Phone: Estimated GFR (MDRD) Amer 6 mL/min >60 [facility] Work Phone: Comment on above: GFR Calc Estimated GFR (MDRD) Non-Af Amer 5 mL/min >60 [facility] Work Phone: Comment on above: Non- GFR Calc Platelets bldon 01-26-2022 Platelets (Bld) [#/Vol] 359 10*3/uL 150-450 [facility] Work Phone: Serum or plasma calcium destini urement (mass/volume)on 01-26-2022 Calcium [Mass/Vol] 9.0 mg/dL 8.5-10.1 [facility] Work Phone: Serum or plasma creatinine m easurement (mass/volume)on 01-26-2022 Creatinine [Mass/Vol] 8.25 mg/dL 0.55-1.02 [facility] Work Phone: Comment on above: Critical Result(s) C alled at: 11:04:48 01/26/2022 by: Ange Iraheta to [email or web address]. Results read back by same.The validity of the calculated GFR & GFRAA in patients over 70 years has not been determined. Clinical correlation is essential. Serum or plasma urea nitroge n measurement (mass/volume)on 01-26-2022 Urea nitrogen [Mass/Vol] 23 mg/dL 18 [facility] Work Phone: Thin prep Papanicolaou smear with manual screeningon 01-26-2022 Thin prep Papanicolaou smear with manual screening 8 11-22 [facility] Work Phone: ICD CLINIC CHECKon 2 Detection Configuration (Vent) 2 - Zone [facility] FastVT_Detection Interval 300 ms [facility] FastVT_Therapy Configuration 0 ATP(s) + 1 Shock(s) [facility] ICD FastVT DetectionStatus ENABLED [facility] ICD-Device Mfg BSX [facility] [id number] 0 [facility] ICD-SHOCKSDELIVEREDVENT RICULAR 0 [facility] Lead1 Mfg BSX [facility] Location Unknown [facility] MDT_PROG_TACHY_ZONE_DET ECTIONS_STATUS ENABLED [facility] Model 3401 SQ PARASTERNAL LEAD [facility] Serial Number [id number] [facility] Serial Number [id number] [facility] Therapy Status (Vent) Enabled [facility] VF Zone Detection Interval 240 ms [facility] VF Zone Therapy Configuration 0 ATP(s) + 1 Shock(s) [facility] Detection Configuration (Vent) 2 - Zone [facility] FastVT_Detection Interval 300 ms [facility] FastVT_Therapy Configuration 0 ATP(s) + 1 Shock(s) [facility] ICD FastVT DetectionStatus ENABLED [facility] ICD-Device Mfg BSX [facility] [id number] 0 [facility] ICD-SHOCKSDELIVEREDVENT RICULAR 0 [facility] Lead1 Mfg BSX [facility] Location Unknown [facility] MDT_PROG_TACHY_ZONE_DET ECTIONS_STATUS ENABLED [facility] Model A219 EMBM MRI S-ICD [facility] Model 3401 SQ PARASTERNAL LEAD [facility] Serial Number [id number] [facility] Serial Number [id number] [facility] Therapy Status (Vent) Enabled [facility] VF Zone Detection Interval 240 ms [facility] VF Zone Therapy Configuration 0 ATP(s) + 1 Shock(s) [facility] No Panel Informationon 01-21 BLANK _ [facility] Implant Date 11/22/2019 [facility] BLANK _ [facility] Implant Date 11/22/2019 [facility] XR CHEST 2V FRONTAL/LATon [facility] INR in Blood by Coagulation assayon 01-06-2022 INR Coag (Bld) [Relative time] 3.4 {INR} [facility] Work Phone: Laboratory - Coagulationon 0 01-06-2022 PT Coag (PPP) [Time] 33.8 s 11.7-14.9 [facility] Work Phone: Blood hemoglobin measurement (mass/volume)on 11-25-2021 Hemoglobin (Bld) [Mass/Vol] 12.5 g/dL 12.0-15.0 [facility] Work Phone: INR in Blood by Coagulation assayon 11-25-2021 INR Coag (Bld) [Relative time] 2.7 {INR} [facility] Work Phone: Laboratory - Coagulationon 0 11-25-2021 PT Coag (PPP) [Time] 28.2 s 11.7-14.9 [facility] Work Phone: INR in Blood by Coagulation assayon 09-29-2021 INR Coag (Bld) [Relative time] 2.2 {INR} [facility] Work Phone: Laboratory - Coagulationon 0 09-29-2021 PT Coag (PPP) [Time] 23.5 s 11.7-14.9 [facility] Work Phone: Platelet Counton 09-23-2021 Platelets (Bld) [#/Vol] 323 10*3/uL Normal 140-440 [facility] Comment on above: Performed By: #### P LTCT, PT #### [facility] [address] [place] [address] Platelets (Bld) [#/Vol] 323 10*3/uL 140 - 440 10*3/uL [facility] Test Performed by [facility], [address] [place] [address] - [facility] Prothrombin Timeon INR 2.0 High 0.9-1.1 [facility] Comment on above: Result Comment: Saroj mmended Anticoagulant Therapy: SEE BELOW ----- INR of 2.0 - 3.0 : - Prophylaxis of Venous Thrombosis (high-risk surgery) - Treatment of Venous Thrombosis - Treatment of Pulmonary Embolism (Includes tissue heart valves, Acute Myocardial Infarction to prevent systemic embolism, Valvular Heart Disease, and Atrial Fibrillation) ----- INR of 2.5 - 3.5 : - Mechanical Prosthetic Valves (high risk) - If oral anticoagulant therapy is used to prevent Myocardial Infarction Performed By: #### P LTCT, PT #### [place] [address] [place], [place] PT Coag (PPP) [Time] 20.3 s High 9.0-12.0 [facility] Comment on above: Result Comment: . Performed By: #### P LTCT, PT #### [place] [address] [place], [place] Protime-INRon 09-23-2021 INR Coag (Bld) [Relative time] 2.0 {INR} High [facility] Comment on above: Recommended Anticoag ulant Therapy: SEE BELOW ----- INR of 2.0 - 3.0 : - Prophylaxis of Venous Thrombosis (high-risk surgery) - Treatment of Venous Thrombosis - Treatment of Pulmonary Embolism (Includes tissue heart valves, Acute Myocardial Infarction to prevent systemic embolism, Valvular Heart Disease, and Atrial Fibrillation) ----- INR of 2.5 - 3.5 : - Mechanical Prosthetic Valves (high risk) - If oral anticoagulant therapy is used to prevent Myocardial Infarction Interpretation and review of laboratory results Abnormal [facility] PT Coag (PPP) [Time] 20.3 s High 9.0 - 1 2.0 s [facility] Comment on above: . Test Performed by [facility], [address] [place] [address] - [facility] 09-23-2021 Patient [facility]: [facility] REDD[id number] Special Procedures ACCESSION EXAM DATE/TIME PROCEDURE ORDERING PROVIDER [id number] 09/23/2021 14:10 EDT [facility] Special Angiography KEYANNA CASTELLANOS Procedure Reason For Exam ([facility] Special Angiography Procedure) fistulogram. decrease in access flow. dx code N18.6. Report AV fistulogram with angioplasty, 09/23/2021. Reason for procedure: Decreased access flow using left arm AV graft for dialysis. Anesthesia: The procedure was performed with local anesthesia and moderate intravenous sedation. Sedation consisted of 1 mg of Versed, IV, and 50 mcg of fentanyl, IV. Sedation was administered with continuous cardiopulmonary monitoring performed by myself and independent special procedure nursing. Intra service time was 30 minutes. Contrast: Approximately 50 mL of Isovue-300. Fluoroscopy time: 1.4 minutes. Images obtained: Two digital subtraction angiographic runs, two fluoroscopy cine loops, and seven fluoroscopy screen save images. COMPLICATIONS: None immediate. Procedure details and findings: Patient's previous studies were reviewed. After obtaining informed consent, the patient was brought to the special procedure suite and positioned supine on the angiographic table with left arm extended. Physical examination demonstrates a mildly pulsatile thrill in the patient's left arm AV graft. The left arm was prepped and draped in usual sterile fashion. Elements of sterile technique utilized include cap, mask, sterile gown, appropriate hand hygiene with sterile gloves, long sterile drape, and 2 percent chlorhexidine solution for skin antisepsis. Following administration of local anesthetic, and creation of a small dermatotomy, antegrade access was obtained into the graft near the arterial anastomosis using a micropuncture set. Fistulography was performed through the micropuncture sheath. Fistulography demonstrated three mild to moderate stenoses in the graft, as well as a small to moderate pseudoaneurysm in the arterial limb which appears relatively similar to the prior study. A short 6 [place]er vascular sheath was placed in the antegrade direction over a 0.035 inch angled tip Glidewire. Angioplasty was performed at the identified stenoses using a 7 x 80 mm balloon. Repeated and prolonged inflations were performed. Following angioplasty, there was no significant residual stenosis in the graft. There is brisk antegrade flow. Special Procedures Report The procedure was terminated at this point. Sheath and guidewire were removed. A tip stop was used for hemostasis at the access site. Sterile dressing was applied. IMPRESSION: 1. 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 2. Satisfactory treatment of these stenoses with angioplasty. 3. 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 Report Dictated on --- Final --- Dictated: 09/23/2021 2:10 pm Dictating Physician: MD SAUCEDA JOE M Signed Date and Time: 09/23/2021 2:21 pm Signed by: MD SAUCEDA JOE M Transcribed Date and Time: 09/23/2021 2:10 [facility] Juanpablo Sauceda MD - 09/23/2021 Patient Name: [facility] REDD[id number] Special Procedures ACCESSION EXAM DATE/TIME PROCEDURE ORDERING PROVIDER [id number] 09/23/2021 14:10 EDT XA Special Angiography KEYANNA CASTELLANOS Procedure Reason For Exam (XA Special Angiography Procedure) fistulogram. decrease in access flow. dx code N18.6. Report AV fistulogram with angioplasty, 09/23/2021. Reason for procedure: Decreased access flow using left arm AV graft for dialysis. Anesthesia: The procedure was performed with local anesthesia and moderate intravenous sedation. Sedation consisted of 1 mg of Versed, IV, and 50 mcg of fentanyl, IV. Sedation was administered with continuous cardiopulmonary monitoring performed by myself and independent special procedure nursing. Intra service time was 30 minutes. Contrast: Approximately 50 mL of Isovue-300. Fluoroscopy time: 1.4 minutes. Images obtained: Two digital subtraction angiographic runs, two fluoroscopy cine loops, and seven fluoroscopy screen save images. COMPLICATIONS: None immediate. Procedure details and findings: Patient's previous studies were reviewed. After obtaining informed consent, the patient was brought to the special procedure suite and positioned supine on the angiographic table with left arm extended. Physical examination demonstrates a mildly pulsatile thrill in the patient's left arm AV graft. The left arm was prepped and draped in usual sterile fashion. Elements of sterile technique utilized include cap, mask, sterile gown, appropriate hand hygiene with sterile gloves, long sterile drape, and 2 percent chlorhexidine solution for skin antisepsis. Following administration of local anesthetic, and creation of a small dermatotomy, antegrade access was obtained into the graft near the arterial anastomosis using a micropuncture set. Fistulography was performed through the micropuncture sheath. Fistulography demonstrated three mild to moderate stenoses in the graft, as well as a small to moderate pseudoaneurysm in the arterial limb which appears relatively similar to the prior study. A short 6 [place]er vascular sheath was placed in the antegrade direction over a 0.035 inch angled tip Glidewire. Angioplasty was performed at the identified stenoses using a 7 x 80 mm balloon. Repeated and prolonged inflations were performed. Following angioplasty, there was no significant residual stenosis in the graft. There is brisk antegrade flow. Special Procedures Report The procedure was terminated at this point. Sheath and guidewire were removed. A tip stop was used for hemostasis at the access site. Sterile dressing was applied. IMPRESSION: 1. 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 2. Satisfactory treatment of these stenoses with angioplasty. 3. 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 Report Dictated on --- Final --- Dictated: 09/23/2021 2:10 pm Dictating Physician: MD SAUCEDA JOE M Signed Date and Time: 09/23/2021 2:21 pm Signed by: MD SAUCEDA JOE M Transcribed Date and Time: 09/23/2021 2:10 [facility] Work Phone: [facility] Work Phone: Radiology Study observation (narrative) [facility] Work Phone: XA Special Angiography Proce amanda 09-23-2021 XA Special Angiography Procedure Patient Name: SPENECR REDDING [facility] [id number] Special Procedures ACCESSION EXAM DATE/TIME PROCEDURE ORDERING PROVIDER [id number] 09/23/2021 14:10 EDT XA Special Angiography KEYANNA CASTELLANOS Procedure Reason For Exam (XA Special Angiography Procedure) fistulogram. decrease in access flow. dx code N18.6. Report AV fistulogram with angioplasty, 09/23/2021. Reason for procedure: Decreased access flow using left arm AV graft for dialysis. Anesthesia: The procedure was performed with local anesthesia and moderate intravenous sedation. Sedation consisted of 1 mg of Versed, IV, and 50 mcg of fentanyl, IV. Sedation was administered with continuous cardiopulmonary monitoring performed by myself and independent special procedure nursing. Intra service time was 30 minutes. Contrast: Approximately 50 mL of Isovue-300. Fluoroscopy time: 1.4 minutes. Images obtained: Two digital subtraction angiographic runs, two fluoroscopy cine loops, and seven fluoroscopy screen save images. COMPLICATIONS: None immediate. Procedure details and findings: Patient's previous studies were reviewed. After obtaining informed consent, the patient was brought to the special procedure suite and positioned supine on the angiographic table with left arm extended. Physical examination demonstrates a mildly pulsatile thrill in the patient's left arm AV graft. The left arm was prepped and draped in usual sterile fashion. Elements of sterile technique utilized include cap, mask, sterile gown, appropriate hand hygiene with sterile gloves, long sterile drape, and 2 percent chlorhexidine solution for skin antisepsis. Following administration of local anesthetic, and creation of a small dermatotomy, antegrade access was obtained into the graft near the arterial anastomosis using a micropuncture set. Fistulography was performed through the micropuncture sheath. Fistulography demonstrated three mild to moderate stenoses in the graft, as well as a small to moderate pseudoaneurysm in the arterial limb which appears relatively similar to the prior study. A short 6 [place]er vascular sheath was placed in the antegrade direction over a 0.035 inch angled tip Glidewire. Angioplasty was performed at the identified stenoses using a 7 x 80 mm balloon. Repeated and prolonged inflations were performed. Following angioplasty, there was no significant residual stenosis in the graft. There is brisk antegrade flow. Special Procedures Report The procedure was terminated at this point. Sheath and guidewire were removed. A tip stop was used for hemostasis at the access site. Sterile dressing was applied. IMPRESSION: 1. 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 2. Satisfactory treatment of these stenoses with angioplasty. 3. 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 Report Dictated on Final Dictated: 09/23/2021 2:10 pm Dictating Physician: MD SAUCEDA JOE M Signed Date and Time: 09/23/2021 2:21 pm Signed by: MD SAUCEDA JOE M Transcribed Date and Time: 09/23/2021 2:10 Normal [facility] INR in Blood by Coagulation assayon 08-18-2021 INR Coag (Bld) [Relative time] 3.0 {INR} [facility] Work Phone: Laboratory - Coagulationon 0 08-18-2021 PT Coag (PPP) [Time] 30.0 s 11.7-14.9 [facility] Work Phone: INR in Blood by Coagulation assayon 07-30-2021 INR Coag (Bld) [Relative time] 2.6 {INR} [facility] Work Phone: Laboratory - Coagulationon 0 07-30-2021 PT Coag (PPP) [Time] 26.6 s 11.7-14.9 [facility] Work Phone: INR in Blood by Coagulation assayon 07-21-2021 INR Coag (Bld) [Relative time] 3.3 {INR} [facility] Work Phone: Laboratory - Coagulationon 0 07-21-2021 PT Coag (PPP) [Time] 32.6 s 11.7-14.9 [facility] Work Phone: Cervical or vagninal specime n microscopic examination by cytology stain (reported ason 06-23-2021 Cytology report Cyto stain Doc (Cvx/Vag) Comment [facility] Work Phone: Comment on above: The Pap smear is a s creening test designed to aid in thedetection of premalignant and malignant conditions of theuterine cervix. It is not a diagnostic procedure andshould not be used as the sole means of detecting cervicalcancer. Both false-positive and false-negative reports dooccur. Laboratory - Cytologyon - Net Sorter Cyto stain Nom (Cvx/Vag) [ID] Comment [facility] Work Phone: Comment on above: Shannen Burnett [employer] hnologist (ASCP) Laboratory - Miscellaneous t estson 06-23-2021 Service comment (Unsp spec) [Interp] Comment [facility] Work Phone: Comment on above: This liquid based Th inPrep(R) pap test was screened withthe use of an image guided system. Service comment (Unsp spec) [Interp] . [facility] Work Phone: No Panel Informationon 06-23 Pathology report final diagnosis Narrative Comment [facility] Work Phone: Comment on above: NEGATIVE FOR INTRAEP ITHELIAL LESION OR MALIGNANCY. XR RETROGRADE PYELOGRAM RTon 02-15-2020 XR RETROGRADE PYELOGRAM RT Final Report DATE OF EXAM: Feb 15 2020 1:04PM [id number] - XR RETROGRADE PYELOGRAM RT / PROCEDURE REASON: surgery Physician Interpretation EXAM TITLE: XR RETROGRADE PYELOGRAM RT, XR RETROGRADE PYELOGRAM LT DATE: 02/15/2020 1:49 PM INDICATION: Intraoperative examination. Hematuria. Polycystic kidney disease COMPARISON: Ultrasound from 01/29/2020 FINDINGS: 43 seconds of fluoroscopy time was provided. 6 spot images were obtained. These views demonstrate retrograde injection of radiographic contrast into the ureters. There is no evidence for hydroureter. There is distortion of the pelvicalyceal system bilaterally consistent with numerous cysts causing mass effect on these structures. Otherwise, no filling defects are noted. IMPRESSION: Intraoperative exam. Refer to the operative report for details. Centrifugal Extractor Operator: PSCB Transcribe Date/Time: Feb 15 2020 1:49P Dictated by : HEATHER BRICE MD This examination was interpreted and the report reviewed and electronically signed by: HEATHER BRICE MD on Feb 15 2020 1:51PM EST Normal [facility] XR RETROGRADE PYELOGRAM LTon 02-15-2020 XR RETROGRADE PYELOGRAM LT Final Report DATE OF EXAM: Feb 15 2020 1:04PM [id number] - XR RETROGRADE PYELOGRAM LT / PROCEDURE REASON: surgery Physician Interpretation EXAM TITLE: XR RETROGRADE PYELOGRAM RT, XR RETROGRADE PYELOGRAM LT DATE: 02/15/2020 1:49 PM INDICATION: Intraoperative examination. Hematuria. Polycystic kidney disease COMPARISON: Ultrasound from 01/29/2020 FINDINGS: 43 seconds of fluoroscopy time was provided. 6 spot images were obtained. These views demonstrate retrograde injection of radiographic contrast into the ureters. There is no evidence for hydroureter. There is distortion of the pelvicalyceal system bilaterally consistent with numerous cysts causing mass effect on these structures. Otherwise, no filling defects are noted. IMPRESSION: Intraoperative exam. Refer to the operative report for details. Centrifugal Extractor Operator: PSCB Transcribe Date/Time: Feb 15 2020 1:49P Dictated by : HEATHER BRICE MD This examination was interpreted and the report reviewed and electronically signed by: HEATHER BRICE MD on Feb 15 2020 1:51PM EST Normal [facility] Otheron 01-18-2020 Bacteria Auto (Urine sed) [#/Area] NONE None [facility] Bilirubin Ql (U) * Negative [facility] Epithelial cells Auto (Urine sed) [#/Area] NONE 0.0 - 5.0 /hpf [facility] Hemoglobin Ql (U) * Negative [facility] Hyaline casts Auto (Urine sed) [#/Area] 0.0-2 0.0 - 1.0 /lpf [facility] Leukocyte esterase Auto test strip Ql (U) * Negative [facility] Nitrite Auto test strip Ql (U) * Negative [facility] pH (U) * 5.0 - 8.0 [facility] Protein Ql (U) * Negative mg/dL [facility] RBC Auto (Urine sed) [#/Area] >50.0 High 0.0 - 5.0 /hpf [facility] Urobilinogen Auto test strip Ql (U) * 0.2 - 1.0 EU/dL [facility] WBC Auto (Urine sed) [#/Area] 2.0-5 0.0 - 5.0 /hpf [facility] Urinalysison 01-18-2020 Appearance (U) BLOODY [facility] Color (U) RED [facility] Glucose Ql (U) * Negative mg/dL [facility] Ketones Ql (U) * Negative mg/dL [facility] Specific gravity (U) [Rel density] 1.002 1.005 - 1.030 [facility] Urine sediment comments LM Maxx (Urine sed) See Below [facility] Urinalysis Routineon 020 Appearance (U) BLOODY Normal [facility] Comment on above: Performed By: #### U RIN2 #### [place] [address] Bacteria LM.HPF (Urine sed) [#/Area] NONE Normal None [facility] Comment on above: Performed By: #### U RIN2 #### [place] [address] Bilirubin (U) [Mass/Vol] * Normal Negative [facility] Comment on above: Performed By: #### U RIN2 #### [place] [address] Color (U) RED Normal [facility] Comment on above: Performed By: #### U RIN2 #### [place] [address] Comment Urines See Below Normal [facility] Comment on above: Result Comment: [place] r abnormal-macroscopic not done. Performed By: #### U RIN2 #### [place] [address] Ep Cells Urine NONE Normal 0.0-5.0 [facility] Comment on above: Performed By: #### U RIN2 #### [place] [address] Glucose Ql (U) * Normal Negative [facility] Comment on above: Performed By: #### U RIN2 #### [place] [address] Hemoglobin,Urine * Normal Negative [facility] Comment on above: Performed By: #### U RIN2 #### [place] [address] Hyaline Cast 0.0-2 Normal 0.0-1.0 [facility] Comment on above: Performed By: #### U RIN2 #### [place] [address] Ketone Urine * Normal Negative [facility] Comment on above: Performed By: #### U RIN2 #### [address] [place], [place] [address] Leukocytes Esterase * Normal Negative [facility] Comment on above: Performed By: #### U RIN2 #### [facility] [address] [place] [address] Nitrites Urine * Normal Negative [facility] Comment on above: Performed By: #### U RIN2 #### [facility] [address] [place] [address] pH (U) * Normal 5.0-8.0 [facility] Comment on above: Performed By: #### U RIN2 #### [facility] [address] [place] [address] Protein (U) [Mass/Vol] * Normal Negative [facility] Comment on above: Performed By: #### U RIN2 #### [place] [address] RBC LM.HPF (Urine sed) [#/Area] /[HPF] High 0.0-5.0 [facility] Comment on above: Performed By: #### U RIN2 #### [place] [address] Specific [place], Ur 1.002 Normal 1.005-1.030 [facility] Comment on above: Performed By: #### U RIN2 #### [place] [address] Urobilinogen,Ur * Normal 0.2-1.0 [facility] Comment on above: Performed By: #### U RIN2 #### [place] [address] WBC LM.HPF (Urine sed) [#/Area] 2.0-5 Normal 0.0-5.0 [facility] Comment on above: Performed By: #### U RIN2 #### [place] [address] Cult Urineon 01-17-2020 Cult Urine Test performed at [facility] No growth <1,000 CFU/ml. Normal [facility] Comment on above: Performed By: #### C _URI #### [place] [address] CBCon 11-22-2019 Erythrocyte distribution width (RBC) [Ratio] 18.0 % High 11.5 - 14.5 % [place], [place] Hematocrit (Bld) [Volume fraction] 47.8 % High 35 - 47 % [place] Hemoglobin (Bld) [Mass/Vol] 15.4 g/dL 11.7 - 16 g/dL [place] Interpretation and review of laboratory results Abnormal [place] MCH (RBC) [Entitic mass] 27.8 pg 26 - 34 pg [place] MCHC (RBC) [Mass/Vol] 32.2 % 32 - 36 % [place] MCV (RBC) [Entitic vol] 86.2 fL 79 - 98 fL [place], [place] Platelet mean volume (Bld) [Entitic vol] 7.6 fL 7.4 - 10.4 fL [place] Platelets (Bld) [#/Vol] 302 10*3/uL 140 - 440 10*3/uL [place] RBC (Bld) [#/Vol] 5.54 10*6/uL High 3.8 - 5.2 10*6/uL [place] WBC (Bld) [#/Vol] 7.8 10*3/uL 3.6 - 10.7 10*3/uL [place] Test Performed by [facility], [address] [place] [id number] [place] [address] ELECTROPHYSIOLOGYon 11-22-19 20 Gilberto Vieyra M D - 11/22/2019 9:48 AM EDT [facility] PATIENT: SPENCER REDDING MEDICAL RECORD#: [id number] LOCATION: [place] [address] DATE OF SERVICE: 11/22/2019 DATE OF : 1965 AGE: 54 REFERRING PHYSICIAN: DICTATING PHYSICIAN: Gilberto Vieyra MD CASE #: ?? ELECTROPHYSIOLOGY STUDY Procedure: SUBCUTANEOUS ICD SYSTEM GENERATOR CHANGE. History Of Present Illness: The patient is a 54-year-old woman, status post implantation of subcutaneous of ICD system. Her current device is at elective replacement. Description of Procedure: After informed consent was obtained, the patient was brought to the electrophysiology laboratory in the fasting non-sedated state. The left lateral chest was prepped and draped in the usual sterile fashion. Using 2% Xylocaine and 0.5% bupivacaine and a regional block per Anesthesia, the subcutaneous tissues in the left infraclavicular space were anesthetized. After anesthesia, 15-blade was used to open the old incision. Blunt dissection and electrocautery were taken down to the level of the ICD pocket. The ICD pocket was fully opened with a combination of blunt dissection and electrocautery. The device was explanted. Disconnected from the lead. The tip was cleaned, dry, and fasted into the new device. The system was placed inside the pocket with care taken to orient the leads in its chronic position. The wound was then vigorously irrigated with gentamicin solution, closed in several layers with the lowest layer being interrupted 2-0 Vicryl followed by running 3-0 and 4-0 Dexon. Steri-Strips were placed across the incision and a dry sterile dressing was placed atop the ICD implantation site. The patient tolerated the procedure very well, and left the EP lab in stable condition. There were no apparent complications. Device Data: The implanted device is a [employer], model A219, serial [id number]. Summary: Status post subcutaneous ICD system generator change. Diskriter Job ID: [id number] Gilberto Vieyra MD DOD: 11/22/2019 09:16 A Shantel DOT: 11/22/2019 09:48 A Job Number: [id number] Document Number: [id number] cc: [place], [place] POC INRon 11-22-2019 INR Coag (Bld) [Relative time] 1.4 {INR} High [place], [place] Comment on above: Performed by [employer] CLIA ID: [id number] [place], [place] Recommended Anticoagulant Therapy: See Below ----- INR of 2.0 - 3.0: - Prophylaxis of Venous Thrombosis (high-risk surgery) - Treatment of Venous Thrombosis - Treatment of Pulmonary Embolism (includes tissue heart valves, Acute Myocardial Infarction to prevent systemic embolism, Valvular Heart Disease, and Atrial Fibrillation) ----- INR of 2.5 - 3.5: - Mechanical Prosthetic Valves (high risk) - If oral anticoagulant therapy is used to prevent Myocardial Infarction Interpretation and review of laboratory results Abnormal [facility] [place], [place] Office Visiton 04-26-2017 Dietary management education, guidance, and counseling (procedure) yes Invalid Interpretation Code [facility] Work Phone: [phone] Documentation of current medications (procedure) Done Invalid Interpretation Code [facility] Work Phone: [phone] Clinical Lists Update: 04-15-2017 Left ventricular Ejection fraction 60 % Invalid Interpretation Code [facility] Work Phone: [phone] Clinical Lists Update: 05-03-2016 Tobacco smoking status NHIS Never smoker Invalid Interpretation Code [facility] Work Phone: [phone] Tobacco use CPHS Never smoker Invalid Interpretation Code [facility] Work Phone: [phone] Clinical Lists Update: 04-10-2016 Calcium mass conc 7.9 mg/dL Invalid Interpretation Code [facility] Work Phone: [phone] Chloride molar conc 99 mmol/L Invalid Interpretation Code [facility] Work Phone: [phone] CO2 31.0 mmol/L Invalid Interpretation Code [facility] Work Phone: [phone] CO2 ppres (BldV) 31.0 mmol/L Invalid Interpretation Code [facility] Work Phone: [phone] Creatinine mass conc 6.40 mg/dL Invalid Interpretation Code [facility] Work Phone: [phone] Glucose mass conc 94 mg/dL Invalid Interpretation Code [facility] Work Phone: [phone] Hematocrit Auto Volume Fraction (Bld) 34.2 % Invalid Interpretation Code [facility] Work Phone: [phone] Hemoglobin mass conc (Bld) 10.6 g/dL Invalid Interpretation Code [facility] Work Phone: [phone] Platelets Auto #/vol (Bld) 223 10*3/mm3 Invalid Interpretation Code [facility] Work Phone: [phone] Potassium molar conc 4.0 mmol/L Invalid Interpretation Code [facility] Work Phone: [phone] Sodium molar conc 137 mmol/L Invalid Interpretation Code [facility] Work Phone: [phone] Urea nitrogen mass conc 25 mg/dL Invalid Interpretation Code [facility] Work Phone: [phone] Urea nitrogen/Creatinine mass ratio 3.9 mg/mg Invalid Interpretation Code [facility] Work Phone: [phone] WBC Auto #/vol (Bld) 4.4 10*3/uL Invalid Interpretation Code [facility] Work Phone: [phone] Clinical Lists Update: 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 Trevor Vieyra MD Work Phone: [facility] 10-11-2024 09:18-0400 Body mass index (BMI) [Ratio] 33.8 kg/m2 Dr. Trevor Vieyra MD Work Phone: [facility] 10-11-2024 09:18-0400 Body weight 83.[address] Trevor Vieyra MD Work Phone: [facility] 10-11-2024 09:18-0400 Diastolic blood pressure 61 mm[Hg] Dr. Trevor Vieyra MD Work Phone: [facility] 10-11-2024 09:18-0400 Heart rate 84 /min Dr. Trevor Vieyra MD Work Phone: [facility] 10-11-2024 09:18-0400 Respiratory rate 18 /min Dr. Trevor Vieyra MD Work Phone: 2(872)875-162537 [place] [address] 10-11-2024 09:18-0400 Systolic blood pressure 92 mm[Hg] Dr. Trevor Vieyra MD Work Phone: 1(952)557-738537 [place] [address] 09-17-2024 18:32-0400 Diastolic blood pressure 44 mm[Hg] Dr. Trevor Vieyra MD Work Phone: 8(801)402-775437 [place] [address] 09-17-2024 18:32-0400 Heart rate 92 /min Dr. Trevor Vieyra MD Work Phone: 9(600)558-864937 [place] [address] 09-17-2024 18:32-0400 Respiratory rate 20 /min Dr. Trevor Vieyra MD Work Phone: 3(886)875-920037 [place] [address] 09-17-2024 18:32-0400 SaO2% (BldA) [Mass fraction] 97 % Dr. Trevor Vieyra MD Work Phone: 1(717)376-043537 [place] [address] 09-17-2024 18:32-0400 Systolic blood pressure 98 mm[Hg] Dr. Trevor Vieyra MD Work Phone: 1(958)478-550237 [place] [address] 09-17-2024 16:08-0400 Body height 157.[address] Trevor Vieyra MD Work Phone: 3(249)315-669737 [place] [address] 09-17-2024 16:08-0400 Body mass index (BMI) [Ratio] 34.4 kg/m2 Dr. Trevor Vieyra MD Work Phone: 0(948)102-668437 [place] [address] 09-17-2024 16:08-0400 Body temperature 98.6 [degF] Dr. Trevor Vieyra MD Work Phone: 9(763)512-219737 [place] [address] 09-17-2024 16:08-0400 Body weight 85.[address] Trevor Vieyra MD Work Phone: 5(086)402-982537 [place] [address] 08-21-2024 08:58-0500 Body temperature 98.8 [degF] Dr. Trevor Vieyra MD Work Phone: 7(251)601-957037 [place] [address] 08-21-2024 08:58-0500 Diastolic blood pressure 60 mm[Hg] Dr. Trevor Vieyra MD Work Phone: 3(724)697-272237 [place] [address] 08-21-2024 08:58-0500 Heart rate 65 /min Dr. Trevor Vieyra MD Work Phone: [facility] 08-21-2024 08:58-0500 Respiratory rate 12 /min Dr. Trevor Vieyra MD Work Phone: [facility] 08-21-2024 08:58-0500 SaO2% (BldA) [Mass fraction] 96 % Dr. Trevor Vieyra MD Work Phone: [facility] 08-21-2024 08:58-0500 Systolic blood pressure 118 mm[Hg] Dr. Trevor Vieyra MD Work Phone: [facility] 07-09-2024 10:11-0500 Diastolic blood pressure 70 mm[Hg] Gilberto Vieyra MD Work Phone: [facility] 07-09-2024 10:11-0500 Systolic blood pressure 162 mm[Hg] Gilberto Vieyra MD Work Phone: [facility] 07-09-2024 09:57-0500 Body height 152.4 cm Gilberto Vieyra MD Work Phone: [facility] 07-09-2024 09:57-0500 Body mass index (BMI) [Ratio] 35.74 kg/m2 Gilberto Vieyra MD Work Phone: [facility] 07-09-2024 09:57-0500 Body weight 83.01 kg Gilberto Vieyra MD Work Phone: [facility] 07-09-2024 09:57-0500 Heart rate 72 /min Gilberto Vieyra MD Work Phone: [facility] 07-09-2024 09:57-0500 SaO2% (BldA) [Mass fraction] 98 % Gilberto Vieyra MD Work Phone: [facility] 07-08-2024 18:27-0500 Body temperature 98.2 [degF] Dr. Trevor Vieyra MD Work Phone: [facility] 07-08-2024 18:27-0500 Diastolic blood pressure 50 mm[Hg] Dr. Trevor Vieyra MD Work Phone: [facility] 07-08-2024 18:27-0500 Heart rate 69 /min Dr. Trevor Vieyra MD Work Phone: [facility] 07-08-2024 18:27-0500 Respiratory rate 18 /min Dr. Trevor Vieyra MD Work Phone: [facility] 07-08-2024 18:27-0500 SaO2% (BldA) [Mass fraction] 97 % Dr. Trevor Vieyra MD Work Phone: [facility] 07-08-2024 18:27-0500 Systolic blood pressure 122 mm[Hg] Dr. Trevor Vieyra MD Work Phone: [facility] 07-08-2024 16:40-0500 Body mass index (BMI) [Ratio] 33.9 kg/m2 Dr. Trevor Vieyra MD Work Phone: [facility] 07-08-2024 16:40-0500 Body weight 84.[address] Trevor Vieyra MD Work Phone: [facility] 06-20-2023 09:16-0500 Body mass index (BMI) [Ratio] 33.62 kg/m2 Gilberto Vieyra MD Work Phone: [facility] 06-20-2023 09:16-0500 Body weight 84.73 kg Gilberto Vieyra MD Work Phone: [facility] 06-20-2023 09:16-0500 Diastolic blood pressure 54 mm[Hg] Gilberto Vieyra MD Work Phone: [facility] 06-20-2023 09:16-0500 Heart rate 59 /min Gilberto Vieyra MD Work Phone: [facility] 06-20-2023 09:16-0500 SaO2% (BldA) [Mass fraction] 98 % Gilberto Vieyra MD Work Phone: [facility] 06-20-2023 09:16-0500 Systolic blood pressure 128 mm[Hg] Gilberto Vieyra MD Work Phone: [facility] 05-10-2023 10:32-0400 Body height 157.[address] Trevor Vieyra Work Phone: [facility] 05-10-2023 10:32-0400 Body mass index (BMI) [Ratio] 33.5 kg/m2 Dr. Trevor Vieyra Work Phone: [facility] 05-10-2023 10:32-0400 Body weight [address] Trevor Vieyra Work Phone: [facility] 05-10-2023 10:32-0400 Diastolic blood pressure 61 mm[Hg] Dr. Trevor Vieyra Work Phone: [facility] 05-10-2023 10:32-0400 Heart rate 79 /min Dr. Trevor Vieyra Work Phone: [facility] 05-10-2023 10:32-0400 Respiratory rate 16 /min Dr. Trevor Vieyra Work Phone: [facility] 05-10-2023 10:32-0400 Systolic blood pressure 98 mm[Hg] Dr. Trevor Vieyra Work Phone: [facility] 03-16-2023 17:50-0400 Diastolic blood pressure 62 mm[Hg] Dr. Trevor Vieyra Work Phone: [facility] 03-16-2023 17:50-0400 Heart rate 62 /min Dr. Trevor Vieyra Work Phone: [facility] 03-16-2023 17:50-0400 Respiratory rate 16 /min Dr. Trevor Vieyra Work Phone: [facility] 03-16-2023 17:50-0400 SaO2% (BldA) [Mass fraction] 96 % Dr. Trevor Vieyra Work Phone: [facility] 03-16-2023 17:50-0400 Systolic blood pressure 130 mm[Hg] Dr. Trevor Vieyra Work Phone: [facility] 03-16-2023 14:07-0400 Body height 157.[address] Trevor Vieyra Work Phone: [facility] 03-16-2023 14:07-0400 Body mass index (BMI) [Ratio] 34 kg/m2 Dr. Trevor Vieyra Work Phone: [facility] 03-16-2023 14:07-0400 Body temperature 98.2 [degF] Dr. Trevor Vieyra Work Phone: [facility] 03-16-2023 14:07-0400 Body weight 84.[address] Trevor Vieyra Work Phone: [facility] 02-18-2023 09:05-0400 Body height 158.8 cm P[address] 1 [facility] 02-18-2023 09:05-0400 Body temperature 97.3 [degF] Pst 1 [facility] 02-18-2023 09:05-0400 Body weight 85.73 kg Pst 1 [facility] 02-18-2023 09:05-0400 Diastolic blood pressure 66 mm[Hg] Pst 1 [facility] 02-18-2023 09:05-0400 Heart rate 77 /min Pst 1 [facility] 02-18-2023 09:05-0400 Respiratory rate 18 /min Pst 1 [facility] 02-18-2023 09:05-0400 SaO2% (BldA) [Mass fraction] 99 % Pst 1 [facility] 02-18-2023 09:05-0400 Systolic blood pressure 104 mm[Hg] Pst 1 [facility] 02-10-2023 08:43-0400 Body height 158.8 cm Christiano Huntley MD Work Phone: [facility] 02-10-2023 08:43-0400 Body weight 84.82 kg Christiano Huntley MD Work Phone: [facility] 01-20-2023 14:33-0400 Body height 157.[address] Trevor Vieyra Work Phone: [facility] 01-20-2023 14:33-0400 Body mass index (BMI) [Ratio] 34.4 kg/m2 Dr. Trevor Vieyra Work Phone: [facility] 01-20-2023 14:33-0400 Body weight 85.[address] Trevor Vieyra Work Phone: [facility] 01-20-2023 14:33-0400 Diastolic blood pressure 68 mm[Hg] Dr. Trevor Vieyra Work Phone: [facility] 01-20-2023 14:33-0400 Heart rate 85 /min Dr. Trevor Vieyra Work Phone: [facility] 01-20-2023 14:33-0400 Respiratory rate 18 /min Dr. Trevor Vieyra Work Phone: [facility] 01-20-2023 14:33-0400 SaO2% (BldA) [Mass fraction] 94 % Dr. Trevor Vieyra Work Phone: [facility] 01-20-2023 14:33-0400 Systolic blood pressure 109 mm[Hg] Dr. Trevor Vieyra Work Phone: [facility] 10-06-2022 10:05-0400 Body height 157.[address] Trevor Vieyra Work Phone: [facility] 10-06-2022 10:05-0400 Body mass index (BMI) [Ratio] 34.4 kg/m2 Dr. Trevor Vieyra Work Phone: [facility] 10-06-2022 10:05-0400 Body weight 85.[address] Trevor Vieyra Work Phone: [facility] 10-06-2022 10:05-0400 Diastolic blood pressure 72 mm[Hg] Dr. Trevor Vieyra Work Phone: [facility] 10-06-2022 10:05-0400 Heart rate 82 /min Dr. Trevor Vieyra Work Phone: [facility] 10-06-2022 10:05-0400 Respiratory rate 18 /min Dr. Trevor Vieyra Work Phone: [facility] 10-06-2022 10:05-0400 SaO2% (BldA) [Mass fraction] 97 % Dr. Trevor Vieyra Work Phone: [facility] 10-06-2022 10:05-0400 Systolic blood pressure 127 mm[Hg] Dr. Trevor Vieyra Work Phone: [facility] 04-08-2022 10:57-0400 Body height 158.8 cm Christiano Huntley MD Work Phone: [facility] 04-08-2022 10:57-0400 Body weight 79.88 kg Christiano Huntley MD Work Phone: [facility] 03-30-2022 14:39-0400 Body height 157.[address] Trevor Vieyra Work Phone: [facility] Work Phone: 03-30-2022 14:39-0400 Body mass index (BMI) [Ratio] 32.5 kg/m2 Dr. Trevor Vieyra Work Phone: [facility] Work Phone: 03-30-2022 14:39-0400 Body weight 80.[address] Trevor Vieyra Work Phone: [facility] Work Phone: 03-30-2022 14:39-0400 Diastolic blood pressure 64 mm[Hg] Dr. Trevor Vieyra Work Phone: [facility] Work Phone: 03-30-2022 14:39-0400 Heart rate 82 /min Dr. Trevor Vieyra Work Phone: [facility] Work Phone: 03-30-2022 14:39-0400 Respiratory rate 16 /min Dr. Trevor Vieyra Work Phone: [facility] Work Phone: 03-30-2022 14:39-0400 Systolic blood pressure 112 mm[Hg] Dr. Trevor Vieyra Work Phone: [facility] Work Phone: 03-15-2022 11:02-0400 Diastolic blood pressure 62 mm[Hg] Dr. Trevor Vieyra Work Phone: [facility] Work Phone: 03-15-2022 11:02-0400 Heart rate 77 /min Dr. Trevor Vieyra Work Phone: [facility] Work Phone: 03-15-2022 11:02-0400 Inhaled oxygen flow rate 2 L/min Dr. Trevor Vieyra Work Phone: [facility] Work Phone: 03-15-2022 11:02-0400 Respiratory rate 24 /min Dr. Trevor Vieyra Work Phone: [facility] Work Phone: 03-15-2022 11:02-0400 SaO2% (BldA) [Mass fraction] 93 % Dr. Trevor Vieyra Work Phone: [facility] Work Phone: 03-15-2022 11:02-0400 Systolic blood pressure 179 mm[Hg] Dr. Trevor Vieyra Work Phone: [facility] Work Phone: 03-15-2022 08:24-0400 Body height 157.[address] Trevor Vieyra Work Phone: [facility] Work Phone: 03-15-2022 08:24-0400 Body mass index (BMI) [Ratio] 34 kg/m2 Dr. Trevor Vieyra Work Phone: [facility] Work Phone: 03-15-2022 08:24-0400 Body temperature 98.1 [degF] Dr. Trevor Vieyra Work Phone: [facility] Work Phone: 03-15-2022 08:24-0400 Body weight 84.[address] Trevor Vieyra Work Phone: [facility] Work Phone: 02-11-2022 13:30-0400 Body height 158.8 cm Pst 2 [facility] 02-11-2022 13:30-0400 Body temperature 97.5 [degF] Pst 2 [facility] 02-11-2022 13:30-0400 Body weight 90.54 kg Pst 2 [facility] 02-11-2022 13:30-0400 Diastolic blood pressure 49 mm[Hg] Pst 2 [facility] 02-11-2022 13:30-0400 Heart rate 78 /min Pst 2 [facility] 02-11-2022 13:30-0400 Respiratory rate 18 /min Pst 2 [facility] 02-11-2022 13:30-0400 SaO2% (BldA) [Mass fraction] 98 % Pst 2 [facility] 02-11-2022 13:30-0400 Systolic blood pressure 121 mm[Hg] Pst 2 [facility] 02-03-2022 10:28-0400 Body height 158.8 cm Christiano Huntley MD Work Phone: [facility] 02-03-2022 10:28-0400 Body weight 90.27 kg Christiano Huntley MD Work Phone: [facility] 02-03-2022 10:28-0400 Diastolic blood pressure 70 mm[Hg] Christiano Huntley MD Work Phone: [facility] 02-03-2022 10:28-0400 Systolic blood pressure 124 mm[Hg] Christiano Huntley MD Work Phone: [facility] 01-30-2022 15:42-0400 Body height 157.48 cm [facility] Work Phone: 01-30-2022 15:42-0400 Body mass index (BMI) [Ratio] 36.2 kg/m2 [facility] Work Phone: 01-30-2022 15:42-0400 Body temperature 98.3 [degF] [facility] Work Phone: 01-30-2022 15:42-0400 Body weight 89.81 kg [facility] Work Phone: 01-30-2022 15:42-0400 Diastolic blood pressure 71 mm[Hg] [facility] Work Phone: 01-30-2022 15:42-0400 Heart rate 80 /min [facility] Work Phone: 01-30-2022 15:42-0400 Respiratory rate 16 /min [facility] Work Phone: 01-30-2022 15:42-0400 SaO2% (BldA) [Mass fraction] 98 % [facility] Work Phone: 01-30-2022 15:42-0400 Systolic blood pressure 159 mm[Hg] [facility] Work Phone: 01-28-2022 10:49-0400 Body height 158.8 cm Christiano Huntley MD Work Phone: [facility] 01-28-2022 10:49-0400 Body weight 91.63 kg Christiano Huntley MD Work Phone: [facility] 01-28-2022 10:49-0400 Diastolic blood pressure 64 mm[Hg] Christiano Huntley MD Work Phone: [facility] 01-28-2022 10:49-0400 Heart rate 87 /min Christiano Huntley MD Work Phone: [facility] 01-28-2022 10:49-0400 Respiratory rate 20 /min Christiano Huntley MD Work Phone: [facility] 01-28-2022 10:49-0400 Systolic blood pressure 125 mm[Hg] Christiano Huntley MD Work Phone: [facility] 01-26-2022 13:01-0400 Diastolic blood pressure 74 mm[Hg] [facility] Work Phone: 01-26-2022 13:01-0400 Heart rate 70 /min [facility] Work Phone: 01-26-2022 13:01-0400 Respiratory rate 16 /min [facility] Work Phone: 01-26-2022 13:01-0400 SaO2% (BldA) [Mass fraction] 96 % [facility] Work Phone: 01-26-2022 13:01-0400 Systolic blood pressure 136 mm[Hg] [facility] Work Phone: 01-26-2022 09:52-0400 Body temperature 98.3 [degF] [facility] Work Phone: 01-26-2022 09:49-0400 Body height 157.48 cm [facility] Work Phone: 01-26-2022 09:49-0400 Body mass index (BMI) [Ratio] 36.3 kg/m2 [facility] Work Phone: 01-26-2022 09:49-0400 Body weight 90.3 kg [facility] Work Phone: 01-21-2022 14:40-0400 Diastolic blood pressure 48 mm[Hg] Mri (I-Stat/1.5t/3t) Work Phone: [facility] 01-21-2022 14:40-0400 Heart rate 69 /min Mri (I-Stat/1.5t/3t) Work Phone: [facility] 01-21-2022 14:40-0400 SaO2% (BldA) [Mass fraction] 99 % Mri (I-Stat/1.5t/3t) Work Phone: [facility] 01-21-2022 14:40-0400 Systolic blood pressure 131 mm[Hg] Mri (I-Stat/1.5t/3t) Work Phone: [facility] 12-15-2021 10:25-0400 Body height 158.8 cm Deb Howard 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 Work Phone: [facility] 12-15-2021 10:25-0400 Body weight 91.17 kg Deb Howard 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 Work Phone: [facility] 09-23-2021 14:00-0400 Diastolic blood pressure 64 mm[Hg] Keyanna Castellanos MD Work Phone: [facility] 09-23-2021 14:00-0400 Heart rate 68 /min Keyanna Castellanos MD Work Phone: [facility] 09-23-2021 14:00-0400 Respiratory rate 17 /min Keyanna Castellanos MD Work Phone: [facility] 09-23-2021 14:00-0400 SaO2% (BldA) [Mass fraction] 98 % Keyanna Castellanos MD Work Phone: [facility] 09-23-2021 14:00-0400 Systolic blood pressure 134 mm[Hg] Keyanna Castellanos MD Work Phone: [facility] 09-23-2021 12:13-0400 Body height 158.8 cm Keyanna Castellanos MD Work Phone: [facility] 09-23-2021 12:13-0400 Body mass index (BMI) [Ratio] 36.36 kg/m2 Keyanna Castellanos MD Work Phone: [facility] 09-23-2021 12:13-0400 Body temperature 98.1 [degF] Keyanna Castellanos MD Work Phone: [facility] 09-23-2021 12:13-0400 Body weight 91.63 kg Keyanna Castellanos MD Work Phone: [facility] 06-11-2021 11:51-0500 Body height 157.[address] Trevor Vieyra Work Phone: [facility] Work Phone: 06-11-2021 11:51-0500 Body weight 92.[address] Trevor Vieyra Work Phone: [facility] Work Phone: 06-11-2021 11:51-0500 Diastolic blood pressure 73 mm[Hg] Dr. Trevor Veiyra Work Phone: [facility] Work Phone: 06-11-2021 11:51-0500 Heart rate 73 /min Dr. Trevor Vieyra Work Phone: [facility] Work Phone: 06-11-2021 11:51-0500 Respiratory rate 18 /min Dr. Trevor Vieyra Work Phone: [facility] Work Phone: 06-11-2021 11:51-0500 SaO2% (BldA) [Mass fraction] 94 % Dr. Trevor Vieyra Work Phone: [facility] Work Phone: 06-11-2021 11:51-0500 Systolic blood pressure 137 mm[Hg] Dr. Trevor Vieyra Work Phone: [facility] Work Phone: 09-30-2020 09:36-0400 Body mass index (BMI) [Ratio] 37.6 kg/m2 Dr. Trevor Vieyra Work Phone: [facility] Work Phone: 11-22-2019 10:45-0400 BP Diastolic 53 mm[Hg] [facility] , [place] 11-22-2019 10:45-0400 BP Systolic 104 mm[Hg] [place] 11-22-2019 10:45-0400 Pulse (Heart Rate) 71 /min [place], [place] 11-22-2019 10:45-0400 Respiratory Rate 11 /min [facility], [place] 11-22-2019 10:15-0400 Body Temperature 97 [degF] [place], [place] 11-22-2019 10:15-0400 Pulse Oximetry 99 % [place] 11-13-2019 15:35-0400 BP Diastolic 63 mm[Hg] [facility] , [place] 11-13-2019 15:35-0400 BP Systolic 118 mm[Hg] [place], [place] 11-13-2019 15:35-0400 Pulse (Heart Rate) 71 /min [facility] [place] 11-13-2019 15:35-0400 Pulse [facility] 98 % [facility] [place] 11-13-2019 15:35-0400 Respiratory Rate 17 /min Queta Kenny [facility], [place] 11-13-2019 12:15-0400 BMI (Body Mass Index) 37.58 [facility] [place] 11-13-2019 12:15-0400 Body Temperature 97.81 [degF] [facility] [place] 11-13-2019 12:15-0400 Body weight 94.7 kg [facility] , [place] 11-13-2019 12:15-0400 Height 158.8 cm [place], [place] 04-26-2017 12:58-0400 BMI (Body Mass Index) 35.84 kg/m2 [facility] Judysamir [facility] Work Phone: 04-26-2017 12:58-0400 BP Diastolic 60 mm[Hg] Harumi DeFinis [facility] Work Phone: 04-26-2017 12:58-0400 BP Systolic 108 mm[Hg] Harumi DeFinis [facility] Work Phone: 04-26-2017 12:58-0400 [facility] Work Phone: 04-26-2017 12:58-0400 Pulse (Heart Rate) 78 /min Harumi DeFinis [facility] Work Phone: 04-26-2017 12:58-0400 Respiratory Rate 18 /min Harumi DeFinis [facility] Work Phone: 04-26-2017 12:58-0400 Weight 88.91 kg Rohanumi DeFinis [facility] Work Phone: 09-05-2014 14:22-0500 BMI (Body Mass Index) 38.41 kg/m2 Radha Blanton RN [facility] Work Phone: 09-05-2014 14:22-0500 BP Diastolic 72 mm[Hg] Radha Blanton RN [facility] Work Phone: 09-05-2014 14:22-0500 BP Systolic 104 mm[Hg] Radha Blanton RN [facility] Work Phone: 09-05-2014 14:22-0500 Height 157.48 cm Radha Blanton RN [facility] Work Phone: 09-05-2014 14:22-0500 Pulse (Heart Rate) 89 /min Radha Blanton RN [facility] Work Phone: 09-05-2014 14:22-0500 Weight 95.26 kg Radha Blanton RN [facility] Work Phone: Encounters Encounter Date Encounter Type Care Provider Facility Start: 03-21-2025 ambulatory Trevor Vieyra Facility:[facility] Start: 03-18-2025 End: 03-18-2025 ambulatory [facility] Start: 02-19-2025 End: 03-10-[address] Trevor Vieyra MD -Lab [facility] Start: 02-19-2025 End: 03-10-[address] Trevor Vieyra MD Work Phone: -[facility] Start: 01-15-2025 End: 02-07-[address] Trevor Vieyra MD -Lab [facility] Start: 01-15-2025 End: 02-07-[address] Trevor Vieyra MD Work Phone: -Lab [facility] Start: 12-17-2024 End: 01-07-[address] Trevor Vieyra MD -Lab [facility] Start: 12-17-2024 End: 01-07-[address] Trevor Vieyra MD Work Phone: -Lab [facility] Start: 12-10-2024 End: 12-10-2024 ambulatory [facility] Start: 11-23-2024 End: 12-08-[address] Trevor Vieyra MD Work Phone: [facility] Work Phone: Start: 11-23-2024 End: 12-08-[address] Trevor Amaro [facility] Start: 10-18-2024 End: 10-18-[address] Trevor Vieyra MD Work Phone: [facility] Work Phone: Start: 10-18-2024 End: 10-18-2024 Patient encounter procedure Christiano Tee NP-C -Lab, [facility] Start: 10-18-2024 End: 10-18-2024 ambulatory Christiano Tee NP Facility:[facility] Start: 10-11-2024 End: 11-07-[address] Trevor Amaro [facility] Start: 10-11-[address] 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 Trevor Vieyra MD Work Phone: -Emergency Department Work Phone: Start: 09-11-2024 End: 10-08-[address] Trevor FloresLab, [facility] Start: 09-11-[address] Trevor FloresLab, [facility] Start: 09-11-2024 End: 10-08-[address] Trevor Vieyra MD Work Phone: [facility] Work Phone: Start: 09-04-2024 End: 09-07-2024 ambulatory Trevor [place] Facility:[facility] Start: 09-04-2024 End: 09-07-[address] Trevor Vieyra MD -Lab, [facility] Start: 09-03-2024 End: 09-03-2024 ambulatory [facility] Start: 08-21-2024 End: 08-21-2024 Patient encounter procedure Kieran Hampton [facility] -[facility] Work Phone: Start: 08-21-2024 End: 08-21-2024 ambulatory [facility] Facility:[facility] Start: 07-23-2024 End: 07-23-[address] Trevor Vieyra MD -Laboratory, [facility] Start: 07-23-2024 End: 07-23-2024 ambulatory Trevor Vieyra Facility:[facility] Start: 07-18-2024 End: 08-10-[address] Trevor Vieyra MD -Lab, [facility] Start: 07-18-2024 End: 08-10-2024 ambulatory Trevor Vieyra Facility:[facility] Start: 07-09-2024 End: 07-09-2024 Office outpatient visit 15 minutes Gilberto Vieyra MD Work Phone: [facility] - [place] Comment on above: Ventricular tachycar pradeep (HCC) (Primary Dx) Start: 07-09-2024 End: 07-09-2024 ambulatory [facility] Start: 07-08-2024 End: 07-08-2024 Emergency department patient visit Dr. Trevor Preston DO -Emergency Department Work Phone: Start: 06-18-2024 End: 07-10-[address] Trevor Vieyra MD -Lab, [facility] Start: 06-18-2024 End: 07-10-2024 ambulatory Trevor Vieyra [facility] Start: 06-06-2024 End: 06-09-[address] Trevor Vieyra MD -Lab, [facility] Start: 06-06-2024 End: 06-09-2024 ambulatory Trevor Vieyra Facility:[facility] Start: 05-28-2024 End: 05-28-2024 ambulatory TREVORSTEPH VIEYRA [facility] Start: 05-08-2024 End: 05-10-2024 ambulatory Trevor Vieyra Facility:[facility] Start: 03-27-2024 End: 03-27-2024 ambulatory Trevor Jarrell Facility:[facility] Start: 02-13-2024 ambulatory Lucas Ruff RN AG [facility] Start: 02-13-2024 Home visit Lucas Ruff RN AG [facility] Comment on above: Population Health Na vigation Outreach ([facility] Attributed Member - Added to Attribution List ) Start: 10-28-2023 End: 11-08-2023 ambulatory [facility] Work Phone: Start: 10-28-2023 End: 11-08-2023 Discharged Recurring [facility]-Laboratory Work Phone: Start: 06-23-2023 End: 06-23-[address] Trevor Vieyra Work Phone: [facility] Work Phone: Start: 06-23-2023 End: 06-23-[address] [facility]ieyra [facility] Start: 06-20-2023 End: 06-20-2023 Office outpatient visit 25 minutes Gilberto Vieyra MD Work Phone: [facility] Cardiology Comment on above: Ventricular tachycar pradeep (HCC) Start: 06-15-2023 Non-patient / Non-visit Dr. Adalberto Vieyra Work Phone: [facility] Start: 06-15-2023 End: 06-15-[address] Trevor Vieyra Work Phone: [facility] Work Phone: Start: 06-15-2023 End: 06-15-[address] Trevor Vieyra Work Phone: [facility]-Pulmonary Services/Neurology Work Phone: Start: 05-11-2023 Telephone encounter Gilberto Vieyra MD Work Phone: [facility] Cardiology Comment on above: Missed Appointment Start: 05-10-2023 End: 05-10-[address] Trevor Vieyra Work Phone: [facility] Work Phone: Start: 05-10-2023 End: 05-10-[address] Trevor Vieyra Work Phone: [facility] Work Phone: Start: 05-10-2023 End: 05-10-[address] Trevor Vieyra Work Phone: [facility]-Occupational Therapy Work Phone: Start: 05-10-[address] Trevor Vieyra Work Phone: [facility]Occ[facility]ational Therapy Work Phone: Start: 04-28-2023 End: 04-28-2023 ambulatory CHRISTIANO HUNTLEY Facility:[facility] Start: 04-28-2023 End: 04-28-2023 Patient encounter procedure Christiano Huntley MD Work Phone: Urology Comment on above: Polycystic kidney, u nspecified (Primary Dx) Start: 04-07-2023 End: 04-07-[address] Trevor Vieyra Work Phone: [facility] Start: 03-31-2023 End: 03-31-[address] Trevor Vieyra Work Phone: [facility] Start: 03-16-2023 End: 03-16-2023 Emergency department patient visit Dr. [facility]ra [facility] Work [facility]: Start: 03-08-2023 Telephone encounter Andrea Madden RN NOC Comment on above: Follow Up Phone Call ; Follow Up (All Clear) Start: 02-18-2023 Telephone encounter Christiano Huntley MD Work Phone: Urology Comment on above: Results (CT) Start: 02-18-2023 End: 02-18-2023 Admission to establishment [facility] Start: 02-18-2023 End: 02-18-2023 Preprocedural examination done Pst 1 [facility] Work Phone: Start: 02-18-2023 End: 02-18-2023 ambulatory TREVOR VIEYRA Pre Surgical Testing Comment on above: Preop examination; Polycystic kidney; Cardiac defibrillator in place; Atherosclerosis of [place] coronary artery of [place] heart without angina pectoris; Mixed hyperlipidemia; End-stage renal disease (HCC) Start: 02-16-2023 Preprocedural examin ation done Pst 1 [facility] Work Phone: Start: 02-16-2023 Telephone encounter Doris Garvin [facility] Cardiology Start: 02-16-2023 Encounter for other preprocedural examination CHRISTIANO HUNTLEY [facility] Start: 02-16-2023 End: 02-16-2023 ambulatory CHRISTIANO HUNTLEY Facility:[facility] Start: 02-16-2023 End: 02-16-2023 Subsequent hospital visit by physician [facility] W[facility] (I-Stat) Work Phone: Cat Scan Comment on above: Polycystic kidney [Q 61.3] Start: 02-11-2023 Orders Only Christiano lópez MD Work Phone: Urology Comment on above: Polycystic kidney (P rimary Dx) Start: 02-10-2023 End: 02-10-2023 ambulatory CHRISTIANO HUNTLEY Facility:[facility] Start: 02-10-2023 End: 02-10-2023 Patient encounter procedure Christiano Huntely MD Work Phone: Urology Comment on above: Polycystic kidney (P rimary Dx); Abdominal pain, unspecified abdominal location Start: 01-20-2023 End: 02-07-[address] Trevor Vieyra Work Phone: [facility] Work Phone: Start: 01-20-2023 End: 02-07-[address] [facility]ra [facility]: Start: 01-20-2023 End: 01-20-[address] Trevor Vieyra Work Phone: [facility] Work Phone: Start: 12-09-2022 End: 12-09-[address] Trevor Vieyra Work Phone: [facility] Work Phone: Start: 12-09-2022 End: 12-09-[address] [facility] Vieyra [facility]: Start: 11-16-2022 End: 12-08-[address] Trevor Vieyra Work Phone: [facility] Work Phone: Start: 11-16-2022 End: 12-08-[address] Trevor Vieyra Work Phone: [facility] Start: 10-28-2022 End: 10-28-[address] Trevor Vieyra Work Phone: [facility] Work Phone: Start: 10-28-2022 End: 10-28-[address] Trevor Vieyra Work Phone: [facility] Start: 10-25-2022 End: 11-07-[address] Trevor Vieyra Work Phone: [facility] Work Phone: Start: 10-25-2022 End: 11-07-[address] Trevor Vieyra Work Phone: [facility] Start: 10-25-[address] Trevor Vieyra Work Phone: [facility] Start: 10-19-2022 End: 10-19-[address] Trevor Vieyra Work Phone: [facility] Work Phone: Start: 10-19-2022 End: 10-19-[address] Trevor Vieyra Work Phone: [facility] Start: 10-06-2022 End: 10-06-[address] Trevor Vieyra Work Phone: [facility] Start: 2022 End: 10-09-[address] Trevor Vieyra Work Phone: [facility] Work Phone: Start: 2022 End: 10-09-[address] Trevor Vieyra Work Phone: [facility] Start: 08-17-2022 End: 08-17-2022 ambulatory [facility] Work Phone: Start: 08-17-2022 End: 08-17-2022 Discharged Recurring [facility] Start: 07-29-2022 End: 07-29-2022 ambulatory [facility] Work Phone: Start: 07-29-2022 End: 07-29-2022 Patient encounter procedure [facility] Start: 07-20-2022 End: 07-20-2022 ambulatory [facility] Work Phone: Start: 07-20-2022 End: 07-20-2022 Patient encounter procedure [facility] Start: 05-27-2022 End: 05-27-[address] Trevor Vieyra Work Phone: [facility] Work Phone: Start: 05-27-2022 End: 05-27-[address] Trevor Vieyra Work Phone: [facility]-Laboratory Start: 04-08-2022 End: 04-08-2022 Patient encounter procedure Christiano Huntley MD Work Phone: Urology Comment on above: Polycystic kidney (P rimary Dx); Gross hematuria Start: 03-30-2022 End: 03-30-[address] Trevor Vieyra Work Phone: [facility] Work Phone: Start: 03-30-2022 End: 03-30-[address] Trevor Vieyra Work Phone: [facility]-Laboratory Start: 03-30-2022 End: 03-30-[address] Trevor Vieyra Work Phone: [facility] Start: 03-15-2022 End: 03-15-2022 Emergency department patient visit Dr. Trevor Vieyra Work Phone: [facility]-Emergency Department Start: 02-27-2022 Telephone encounter Eduardo Martinez [facility] Department Comment on above: PostOp Follow-up Start: 02-24-2022 Telephone encounter Christiano Huntley MD Work Phone: [place] [facility] Comment on above: Results Start: 02-22-2022 Follow-up encounter Ann-Marie Figueroa MD Work Phone: [facility] Start: 02-22-2022 Patient encounter procedure Ann-Marie iFgueroa MD Work Phone: [place] [facility] Start: 02-22-2022 Telephone encounter Christiano Huntley MD Work Phone: Urology Comment on above: Surgical Followup Start: 02-18-2022 Non-patient / Non-visit Dr. Adalberto Vieyra Work Phone: [facility] Start: 02-18-2022 End: 02-18-[address] Trevor Vieyra Work Phone: [facility]-Cardiovascula r Services Start: 02-11-2022 End: 02-11-2022 Admission to [facility] Start: 02-11-2022 End: 02-11-2022 ambulatory Pst 2 Pre Surgical Testing Comment on above: Pre-op exam (Primary Dx); Polycystic kidney disease; Coronary artery disease involving [place] heart without angina pectoris, unspecified vessel or lesion type; Primary hypertension; Hyperlipidemia, unspecified hyperlipidemia type; Stage 5 chronic kidney disease not on chronic dialysis (HCC); History of DVT (deep vein thrombosis) Start: 02-11-2022 End: 02-11-2022 Preprocedural examination done Pst 2 Pre Surgical Testing Start: 02-08-2022 Telephone encounter Christiano Huntley MD Work Phone: Urology Comment on above: Surgery Scheduled Start: 02-03-2022 End: 02-03-2022 Patient encounter procedure Christiano Huntley MD Work Phone: Urology Comment on above: Gross hematuria (Delisa janet Dx); Polycystic kidney; Coronary artery abnormality; History of recurrent deep vein thrombosis (DVT); Early satiety; Abdominal pain, unspecified abdominal location Start: 02-02-2022 Orders Only Christiano lópez MD Work Phone: Urology Comment on above: Polycystic kidney (P rimary Dx) Start: 02-01-2022 End: 02-01-2022 Patient encounter procedure [facility]-Laboratory, Specimen Start: 01-30-2022 End: 02-07-2022 Discharged Recurring [facility] Start: 01-30-2022 End: 01-30-2022 Emergency department patient visit [facility]-Emergency Department Start: 01-29-2022 Telephone encounter Christiano Huntley MD Work Phone: Urology Comment on above: Surgery Scheduled Gross hematuria (Delisa janet Dx) Start: 01-28-2022 End: 01-28-2022 Patient encounter procedure Christiano Huntley MD Work Phone: Urology Comment on above: Gross hematuria (Delisa janet Dx); Polycystic kidney, unspecified; Hydronephrosis of right kidney Start: 01-26-2022 Telephone encounter Christiano Huntley MD Work Phone: Urology Comment on above: Please Return ER Luis najera Call Start: 01-26-2022 End: 01-26-2022 Emergency department patient visit [facility]-Emergency Department Start: 01-22-2022 Telephone encounter Deb lester 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 Work Phone: Urology Comment on above: Results; Appointment Start: 01-22-2022 End: 01-22-2022 Patient encounter procedure [facility]patient Pav[facility] Ultrasound Start: 01-21-2022 Follow-up encounter Matthew Chen MD Work Phone: [facility] Start: 01-21-2022 Patient encounter procedure Matthew Chen MD Work Phone: [facility] Department Start: 01-21-2022 End: 01-21-2022 Subsequent hospital visit by physician Mri 3 Radio Main Q (I-Stat/1.5t/3t) Work Phone: MRI Q Comment on above: Gross hematuria [R31 .0] Start: 01-21-2022 End: 01-21-2022 Subsequent hospital visit by physician Xr Chest Main J1 Work Phone: Radiology Comment on above: Microscopic hematuri a [R31.29] Start: 01-18-2022 End: 01-18-2022 Patient encounter procedure [facility]-Outpatient Breast Imaging Start: 12-17-2021 Telephone encounter Deb lester 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 Work Phone: Urology Comment on above: Results Start: 12-16-2021 Telephone encounter Deb lester 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 Work Phone: General Surgery Comment on above: Results Start: 12-15-2021 End: 12-15-2021 Patient encounter procedure Deb Howard 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 Work Phone: Urology Comment on above: Gross hematuria (Delisa janet Dx); Polycystic kidney, unspecified Start: 11-25-2021 End: 12-08-2021 [facility]charged [facility] Start: 11-25-2021 [facility] Start: 09-29-2021 End: 09-29-[address] Trevor [facility]ieyra [facility] Start: 09-23-2021 End: 09-23-2021 Subsequent hospital visit by physician Keyanna Castellanos MD Work Phone: [facility] General Surgery Start: 08-18-2021 End: 09-07-[address] Trevor Vieyra [facility] Start: 07-30-2021 End: 07-30-[address] Trevor Vieyra Work Phone: [facility] Start: 07-21-2021 End: 08-10-[address] Trevor [facility]ra [facility] Start: 06-23-2021 End: 06-23-[address] Trveor Vieyra [facility] Start: 06-11-2021 End: 06-11-[address] Trevor Vieyra Work Phone: [facility] Start: 01-17-2020 End: 01-17-2020 Subsequent hospital visit by physician Trevor Vieyra LAB E[facility] Comment on above: Gross hematuria [R31 .0] Start: 11-22-2019 End: 11-22-2019 Subsequent hospital visit by physician Gilberto Vieyra Work Phone: [facility] [employer] Comment on above: Acute pain (Primary Dx) Start: 11-13-2019 End: 11-13-2019 Subsequent hospital visit by physician Queta Cox Work Phone: [facility] General Surgery Comment on above: Arrived Start: 12-13-[address] [facility] Start: 08-25-[address] [facility] Start: 05-26-2017 Ambulatory Sandip [facility] Start: 05-24-2017 [facility] Sandip [facility] Procedures Date Procedure Procedure Detail Performing Clinician Start: 10-11-2024 Evaluation of diagno stic study results Dr. Trevor Vieyra MD Work Phone: Start: 09-17-2024 Plain chest X-ray Dr. Nikia Vieyra MD Work Phone: Start: 09-17-[address] Trevor Vieyra MD Work Phone: Start: 07-08-2024 X-ray of chest, PA a nd lateral views Dr. Trevor Vieyra MD Work Phone: Start: 06-20-2023 Ecg routine ecg w/le ast 12 lds trcg only w/o i&r Gilberto Vieyra MD Work Phone: Start: 03-16-2023 Plain chest X-ray Dr. Nikia Vieyra Work Phone: Start: 02-18-2023 Antibody screen CHRISTIANO KINNEY Comment on above: Order Comment: Speci men Type: BLOOD SPECIMENOrdering Facility: [facility] Address: [address] [place], [place] [id number] Performed By: #### T [id number] ####[facility] BLOOD BANKCLIA [id number] [place] [address] [place] Start: 02-16-2023 Ct abdomen & pelvis w/o contrast material Christiano Huntley MD Work Phone: Start: 03-15-2022 CT angiography of ch est with contrast Dr. Trevor Vieyra Work Phone: Start: 03-15-2022 Plain chest X-ray Dr. Nikia Vieyra Work Phone: Start: 02-22-2022 ICD CLINIC CHECK Anjelica Figueroa MD Work Phone: Start: 02-18-2022 Cardiovascular stres s test using pharmacologic stress agent Dr. Trevor Vieyra Work Phone: Start: 01-26-2022 US urinary tract Start: 01-22-2022 End: 01-22-2022 Ultrasonography of breast Start: 01-21-2022 Mri abdomen w/o & w/ contrast material Deb Howard 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 Work Phone: Start: 01-21-2022 ICD CLINIC CHECK Rafiq Chen MD Work Phone: Start: 01-21-2022 ICD CLINIC CHECK Rafiq Chen MD Work Phone: Start: 01-21-2022 Radiologic exam ches t 2 views Deb Howard 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 Work Phone: Start: 01-18-2022 End: 01-18-2022 Screening mammography Start: 09-23-2021 Special diagnostic procedures Keyanna Castellanos MD Work Phone: Start: 09-23-2021 Blood count platelet automated Juanpablo Sauceda MD Work Phone: Start: 01-17-2020 URINALYSIS, WITH MICROSCOPIC Sophia (Pa) Valarie Work Phone: Start: 11-22-2019 ELECTROPHYSIOLOGY Gilberto Vieyra Work Phone: Start: 11-22-2019 EP NURSE PROCEDURE REPORT 3m Scanning Start: 11-22-2019 Ecg routine ecg w/le ast 12 lds w/i&r Radha P Lute Work Phone: Start: 11-22-2019 Blood count complete automated Radha P Lute Work Phone: Start: 11-22-2019 POC INR Unknown Pr ovider Result Start: 04-26-2017 End: 04-26-2017 Follow Up Appt 6 months Mehnaz Parker Start: 04-26-2017 End: 04-26-2017 CAMACHO Garvin MD Start: 06-08-2016 Placement of stent i n coronary artery Status post cardiac stent placement Radha Blanton RN Start: 04-22-2016 History of placement of stent for coronary artery disease History of coronary artery stent placement Christiano Tee LEAD DATA ENTRY OPERATORMarkC Comment on above: TDE-[id number] RCA w/ 3.5 x 15 mm Xience Stent, Mid RCA w/ 3.25 x 23 mm Xience Stent and POBA-RBLB 04/21/2016; PCI-Distal RCA/PDA Bifurcation with T stent w/ 2.75 x 18 mm Xience Stent and DUD-Xcml-CLF w/ 2.5 x 23 mm Xience Stent and Mid-LAD w/ 3.0 x 15 mm Xience Stent 04/22/16 SARS-CoV-2 & FLU Ant igen (Rapid) Dr. Trevor Vieyra Work Phone: Urine culture Plan of Treatment Date Care Activity Detail Author Start: 09-10-2039 RSV Immunization for Adults (1 - 1-dose 75+ series) RSV Immunization for Adults (1 - 1-dose 75+ series) [facility] Start: 10-19-2032 DTaP/Tdap/Td Vaccines (2 - Td or Tdap) DTaP/Tdap/Td Vaccines (2 - Td or Tdap) [facility] Start: 10-19-2032 Urine microalbumin profile DTaP,Tdap,Td Vaccine (2 - Td or Tdap) [facility] Start: 2029 PNEUMOCOCCAL (4 - PPSV23 or PCV20) PNEUMOCOCCAL (4 - PPSV23 or PCV20) [facility] Start: 2029 Pneumococcal 0-64 years Vaccine (4 of 4 - PPSV23) Pneumococcal 0-64 years Vaccine (4 of 4 - PPSV23) [facility] Start: 2029 Pneumococcal vaccination [facility] Start: 2029 Pneumococcal Vaccine: Pediatrics (0 to 5 Years) and At-Risk Patients (6 to 64 Years) (4 - PPSV23 if available, else PCV20) Pneumococcal Vaccine: Pediatrics (0 to 5 Years) and At-Risk Patients (6 to 64 Years) (4 - PPSV23 if available, else PCV20) [facility] Start: 2029 Pneumococcal Vaccine: Pediatrics (0 to 5 Years) and At-Risk Patients (6 to 64 Years) (4 - PPSV23 or PCV20) Pneumococcal Vaccine: Pediatrics (0 to 5 Years) and At-Risk Patients (6 to 64 Years) (4 - PPSV23 or PCV20) [facility] Start: 06-26-2026 Pneumococcal Vaccine: 50+ Years (3 of 3 - PCV20 or PCV21) Pneumococcal Vaccine: 50+ Years (3 of 3 - PCV20 or PCV21) [facility] Start: 03-03-2026 DIABETES SCREEN DIABETES SCREEN [facility] Start: 03-03-2026 Diabetes Screening Diabetes Screening [facility] Start: 02-25-2025 DIABETES SCREEN DIABETES SCREEN [facility] Start: 02-24-2025 DIABETES SCREEN DIABETES SCREEN [facility] Start: 02-22-2025 DIABETES SCREEN DIABETES SCREEN [facility] Start: 09-17-2024 [facility] Start: 2024 RSV Immunization aged 60 or older (1 - 1-dose 60+ series) RSV Immunization aged 60 or older (1 - 1-dose 60+ series) [facility] Start: 09-03-2024 End: 09-03-2024 Professional / ancillary services management 09/03/2024 4:30 PM EST Ancillary Procedure [facility] [address] [place] [address] [facility] Start: 07-08-2024 [facility] Start: 06-20-2024 End: 06-20-2024 Patient encounter procedure 06/20/2024 8:30 AM EST Office Visit [facility] [address] [place] [address] Gilberto Vieyra MD [address] [address] [facility] Start: 03-11-2024 COVID-19 Vaccine ( season) COVID-19 Vaccine ( season) [facility] Start: 03-11-2024 Influenza vaccination Influenza Vaccine (#1) [facility] Start: 03-03-2024 Complete blood count Hemoglobin/Hematocrit [facility] Start: 03-03-2024 Creatinine measurement Serum Creatinine [facility] Start: 03-03-2024 HEMOGLOBIN/HEMATOCRIT HEMOGLOBIN/HEMATOCRIT [facility] Start: 03-03-2024 SERUM CREATININE SERUM CREATININE [facility] Start: 02-19-2024 BP CONTROLLED (<130/80) BP CONTROLLED (<130/80) [facility] Start: 07-19-2023 End: 07-19-2023 Professional / ancillary services management 07/19/2023 7:00 AM EST Ancillary Procedure [facility] [address] [place] [id number] [facility] Start: 07-11-2023 Medicare Advantage Annual Wellness Visit Medicare [facility] Annual Wellness Visit [facility] Start: 06-20-2023 End: 06-20-2023 Patient encounter procedure 06/20/2023 9:00 AM EST Office Visit [facility] [address] [place] [address] Gilberto Vieyra MD [address] [address] [facility] Start: 03-21-2023 End: 03-21-2023 Professional / ancillary services management 03/21/2023 7:00 AM EDT Ancillary Procedure [facility] [address] [place] [address] [facility] Start: 03-16-2023 [facility] Start: 03-11-2023 Covid-19 Vaccine ( season) Covid-19 Vaccine ( season) [facility] Start: 03-11-2023 Influenza vaccination [facility] Start: 02-25-2023 HEMOGLOBIN/HEMATOCRIT HEMOGLOBIN/HEMATOCRIT [facility] Start: 02-25-2023 SERUM CREATININE SERUM CREATININE [facility] Start: 02-18-2023 End: 04-20-2023 Bacteria identified in Urine by Culture URINE CULTURE Microbiology Routine Polycystic kidney Expected: 02/18/2023, Expires: 04/20/2023 [facility] Work Phone: Comment on above: Expected: 02/18/2023, Expires: Start: 02-18-2023 End: 04-20-2023 TYPE AND SCREEN,30 DAY TYPE AND SCREEN,30 DAY Blood Bank Routine Polycystic kidney Expected: 02/18/2023, Expires: 04/20/2023 [facility] Work Phone: Comment on above: Expected: 02/18/2023, Expires: 3 Start: 01-18-2023 Screening for malignant neoplasm of breast Mammogram [facility] Start: 07-11-2022 DEPRESSION ASSESSMENT DEPRESSION ASSESSMENT [facility] Start: 03-11-2022 Influenza vaccination INFLUENZA (#1) [facility] Start: 02-22-2022 End: 04-24-2022 Bacteria identified in Urine by Culture URINE CULTURE Microbiology Routine Gross hematuria Expected: 02/22/2022, Expires: 04/24/2022 [facility] Work Phone: Comment on above: Expected: 02/22/2022, Expires: 2 Start: 02-02-2022 End: 02-02-2023 SARS-CoV-2 (COVID-19) RNA [Presence] in Respiratory specimen by MISAEL with probe detection PRE-PROCEDURE & PRE-OPERATIVE COVID Microbiology Routine Polycystic kidney Expected: 02/02/2022, Expires: 02/02/2023 [facility] Work Phone: Comment on above: Expected: 02/02/2022, Expires: 3 Start: 12-29-2021 End: 12-29-2021 Nursing evaluation of patient and report 12/29/2021 Nurse Only Cardiology [facility] Start: 09-12-2021 COVID-19 VACCINE (4 - Booster for Pfizer series) COVID-19 VACCINE (4 - Booster for Pfizer series) [facility] Start: 07-11-2021 DEPRESSION ASSESSMENT DEPRESSION ASSESSMENT [facility] Start: 07-10-2021 COVID-19 VACCINE (4 - Booster for Pfizer series) COVID-19 VACCINE (4 - Booster for Pfizer series) [facility] Start: 07-10-2021 COVID-19 VACCINE (4 - Pfizer series) COVID-19 VACCINE (4 - Pfizer series) [facility] Start: 03-16-2021 COVID-19 Vaccine (3 - Booster for Pfizer series) COVID-19 Vaccine (3 - Booster for Pfizer series) [facility] Start: 03-11-2020 Influenza vaccination [facility] [place] Start: 12-06-2019 End: 12-06-2019 Nurse Only 12/06/2019 Nurse Only Cardiology Doris Webber, RN [facility] Start: 06-17-2019 Diabetes screen Diabetes screen [place], [place] Start: 12-27-2018 Annual Wellness Visit (AWV) Annual Wellness Visit (AWV) [facility] Start: 10-25-2017 End: 10-25-2017 Appointment Appointment [facility] Work Phone: Start: 06-21-2017 Creatinine measurement Creatinine monitoring [facility] Start: 06-21-2017 Potassium monitoring Potassium monitoring [facility] Start: 04-26-2017 End: 04-26-2017 Follow Up Appt 6 months Follow Up Appt 6 months [facility] Work Phone: Start: 04-26-2017 End: 04-26-2017 MMM MMM [facility] [employer] Work Phone: Start: 04-26-2017 End: 04-26-2017 Appointment Appointment [facility] Work Phone: Start: 04-22-2017 Lipid panel Lipid screen [facility] Start: 02-08-2017 Pneumococcal 0-64 years Vaccine (2 of 3 - PCV13) Pneumococcal 0-64 years Vaccine (2 of 3 - PCV13) [place], [place] Start: 09-25-2014 End: 09-25-2014 Mri spinal canal cervical w/o contrast matrl MRI Cervical Spine [facility] Work Phone: Start: 2014 Screening for malignant neoplasm of breast Breast cancer screen [facility] Start: 2014 Screening for malignant neoplasm of colon Colon cancer screen colonoscopy [place], [place] Start: 2014 Shingles Vaccine (1 of 2) Shingles Vaccine (1 of 2) [facility] Start: 2014 SHINGRIX VACCINE (1 of 2) SHINGRIX VACCINE (1 of 2) [facility] Start: 2014 Tuberculosis screening COLORECTAL CANCER SCREENING,SEE MODIFIER [facility] Start: 2014 Zoster Vaccines (1 of 2) Zoster Vaccines (1 of 2) [facility] Start: 09-05-2014 End: 09-05-2014 Radex spine cervical 2 or 3 views X-Ray, Spine, Cervical [facility] Work Phone: Start: 04-23-2014 Hepatitis B Vaccine (4 of 5 - Risk Dialysis 4-dose series) Hepatitis B Vaccine (4 of 5 - Risk Dialysis 4-dose series) [facility] Start: 04-23-2014 Hepatitis B Vaccines (3 of 3 - 19+ 3-dose series) Hepatitis B Vaccines (3 of 3 - 19+ 3-dose series) [facility] Start: 02-11-2014 HEPATITIS B (4 of 4 - 4-dose series) HEPATITIS B (4 of 4 - 4-dose series) [facility] Start: 02-11-2014 Hepatitis B Vaccines (4 of 4 - 4-dose series) Hepatitis B Vaccines (4 of 4 - 4-dose series) [facility] Start: 2009 COLOGUARD (FIT-DNA) COLOGUARD (FIT-DNA) [facility] Start: 2009 Colonoscopy COLONOSCOPY [facility] Start: 2009 COLORECTAL CANCER SCREENING COLORECTAL CANCER SCREENING [facility] Start: [address] COLONOGRAPHY [facility] Start: 2009 DIABETES SCREEN DIABETES SCREEN [facility] Start: 2009 FECAL OCCULT BLOOD FECAL OCCULT BLOOD [facility] Start: 2009 Lipid 1996 panel - Serum or Plasma Lipid Screening [facility] Start: 2009 Lipid panel Lipid Screening [facility] Start: 2009 LIPID SCREEN LIPID SCREEN [facility] Start: 2009 Screening for malignant neoplasm of colon [facility] Start: 2009 SIGMOIDOSCOPY SIGMOIDOSCOPY [facility] Start: 2004 Mammography [facility] Start: 2004 Screening for malignant neoplasm of breast Mammogram Screening [facility] Start: 1994 HPV TESTING HPV TESTING [facility] Start: 1994 Screening for malignant neoplasm of cervix [facility] Start: 1985 PAP TESTING PAP TESTING [facility] Start: 1985 Screening for malignant neoplasm of cervix [facility] Start: 09-10-1983 DTaP/Tdap/Td vaccine (1 - Tdap) DTaP/Tdap/Td vaccine (1 - Tdap) [facility] Start: 09-10-1983 DTaP/Tdap/Td Vaccines (1 - Tdap) DTaP/Tdap/Td Vaccines (1 - Tdap) [facility] Start: 09-10-1983 Urine microalbumin profile DTAP,TDAP,TD (1 - Tdap) [facility] Start: 1982 ANNUAL PCP TEAM CHRONIC DISEASE VISIT ANNUAL PCP TEAM CHRONIC DISEASE VISIT [facility] Start: 1982 Anxiety Screening Anxiety Screening [facility] Start: 1982 Depression Screening Depression Screening [facility] Start: 1982 Diabetes mellitus screening Diabetes Screening [facility] Start: 1982 Hepatitis B surface antibody level LDL CHOLESTEROL [facility] Start: 1982 HEPATITIS C SCREENING HEPATITIS C SCREENING [facility] Start: 1982 Hepatitis C screening Hepatitis C Screening [facility] Start: 1982 HIV SCREENING HIV SCREENING [facility] Start: 1982 HIV screening HIV Screening [facility] Start: 09-10-1979 HIV screening HIV screen [facility] Start: 1976 Adult depression screening assessment DEPRESSION SCREENING [facility] Start: 1976 Depression Screen Depression Screen [facility] Start: 1965 MMR Vaccines (1 of 1 - Standard series) MMR Vaccines (1 of 1 - Standard series) [facility] Start: 1964 HEPATITIS B (1 of 3 - 3-dose series) HEPATITIS B (1 of 3 - 3-dose series) [facility] Start: 1964 Hepatitis C screening Hepatitis C screen [facility] Start: 1964 HIV screening HIV Screening [facility] Start: 1964 Lipid panel Lipid Panel [facility] Start: 1964 Medicare Advantage Annual Wellness Visit (AWV) Medicare Advantage Annual Wellness Visit (AWV) [facility] Start: 1964 Screening for malignant neoplasm of colon [facility] Start: 1964 Thyroid stimulating hormone measurement TSH Level [facility] Bacteria identified in Urine by Culture URINE CULTURE Microbiology Routine Gross hematuria Polycystic kidney, unspecified Ordered: 12/15/2021 [facility] Work Phone: Comment on above: Ordered: 12/15/2021 End: 03-11-2024 Ct abdomen & pelvis w/o contrast material CT ABD/PEL WO IVCON Radiology Routine Polycystic kidney 1 Occurrences starting 02/10/2023 until 03/11/2024 [facility] Work Phone: Comment on above: 1 Occurrences starting 02/10/2023 until 03/11/2024 Cystourethroscopy CYSTO.PANENDO Procedures Routine Gross hematuria Ordered: 12/16/2021 [facility] Work Phone: Comment on above: Ordered: 12/16/2021 End: 11-22-2019 Diagnostic Cardiac Bowling Pin Refinisher Procedure Diagnostic Cardiac Bowling Pin Refinisher Procedure Cardiac Cath Routine One Time for 1 Occurrences starting 11/22/2019 until 11/22/2019 [facility] Comment on above: One Time for 1 Occurrences starting 11/08 until 11/22/2019 ECG 12 lead - CLINIC PERFORMED ECG 12 lead - CLINIC PERFORMED CV ECG Routine Ventricular tachycardia (HCC) 06/20/2023 9:15 AM [facility] [employer] Work Phone: Electrocardiogram, 12-lead Elect rocardiogram, 12-lead ECG Routine 11/22/2019 8:00 AM EDT [facility] [place] End: 11-22-2019 ELECTROPHYSIOLOGY DEVICE ELECTROPHYSIOLOGY DEVICE Echocardiography Routine One Time for 1 Occurrences starting 11/22/2019 until 11/22/2019 [facility] Comment on above: One Time for 1 Occurrences starting 11/08 until 11/22/2019 H&P for surgery H&P FOR SURGERY Procedures Routine Gross hematuria Ordered: 01/29/2022 [facility] Work Phone: Comment on above: Ordered: 01/29/2022 H&P for surgery H&P FOR SURGERY Procedures Routine Polycystic kidney Ordered: 02/11/2023 [facility] Work Phone: Comment on above: Ordered: 02/11/2023 Initiate Oxygen Ther apy Protocol Initiate Oxygen Therapy Protocol Respiratory Care Routine Daily until discontinued starting 11/22/2019 [facility] Comment on above: Daily until discontinued starting 2019 End: 01-15-2023 Mri abdomen w/o & w/contrast material MRI ABDOMEN URO WO/W IVCON Radiology Routine Gross hematuria 1 Occurrences starting 12/16/2021 until 01/15/2023 [facility] Work Phone: Comment on above: 1 Occurrences starting 12/16/2021 until 01/15/2023 Mri abdomen w/o & w/contrast material MRI ABDOMEN URO WO/W IVCON Radiology Routine Gross hematuria 01/21/2022 2:51 PM EDT [facility] Work Phone: End: 01-15-2023 Mri pelvis w/o & w/contrast material MRI PELVIS URO WO/W IVCON Radiology Routine Gross hematuria 1 Occurrences starting 12/16/2021 until 01/15/2023 [facility] Work Phone: Comment on above: 1 Occurrences starting 12/16/2021 until 01/15/2023 Mri pelvis w/o & w/contrast material MRI PELVIS URO WO/W IVCON Radiology Routine Gross hematuria 01/21/2022 2:51 PM EDT [facility] Work Phone: Patient Education [facility] Work Phone: Patient referral [facility] Work Phone: End: 11-13-2019 XA SPECIAL PROCEDURE XA SPECIAL PROCEDURE Imaging Routine Once for 1 Occurrences starting 11/13/2019 until 11/13/2019 [place] Comment on above: Once for 1 Occurrences starting 11/13/19 20 until 11/13/2019 XA SPECIAL PROCEDURE XA SPECIAL PROCEDURE Imaging Routine 11/13/2019 3:00 PM EDT [facility] Immunizations Immunization Date Immunization Notes Care Provider [facility] 04-18-2023 Seasonal, quadrivale nt, recombinant, injectable influenza vaccine, preservative free Christiano Huntley MD Work Phone: [facility] 04-18-2023 influenza virus vacc ine, unspecified formulation Lucas Ruff RN [facility] 10-19-2022 tetanus toxoid, redu colten diphtheria toxoid, and acellular pertussis vaccine, adsorbed Christiano Huntley MD Work Phone: [facility] 03-29-2022 influenza, injectabl e, quadrivalent, preservative free Christiano Huntley MD Work Phone: [facility] 03-29-2022 influenza virus vacc ine, unspecified formulation Doris Webber RN [facility] 06-26-2021 pneumococcal polysaccharide vaccine, 23 valalicia Huntley MD Work Phone: [facility] 04-06-2021 influenza, injectabl e, quadrivalent, preservative free Christiano Huntley MD Work Phone: [facility] 04-06-2021 influenza, seasonal, injectable, preservative free Deb Coyner 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 Work Phone: [facility] 10-14-2020 Covid (Pfizer) Dr. Trevor florez Work Phone: [facility] 09-23-2020 Covid (Pfizer) Dr. Trevor florez Work Phone: [facility] 07-18-2019 pneumococcal conjuga te vaccine, 13 valalicia Huntley MD Work Phone: [facility] 04-09-2019 influenza, seasonal, injectable, preservative free Deb Coyner 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 Work Phone: [facility] 03-26-2019 influenza, seasonal, injectable, preservative free Deb Coyner 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 Work Phone: [facility] 04-05-2018 influenza, seasonal, injectable, preservative free Deb Coyner 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 Work Phone: [facility] 03-13-2018 influenza, seasonal, injectable, preservative free Deb Coyner 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 Work Phone: [facility] 04-20-2017 influenza, seasonal, injectable, preservative free Deb Coyner 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 Work Phone: [facility] 04-08-[address] Trevor Vieyra Work Phone: [facility] 04-08-2017 influenza, seasonal, injectable, preservative free Deb Coyner 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 Work Phone: [facility] 03-11-2017 influenza, seasonal, injectable, preservative free Deb Coyner 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 Work Phone: [facility] 04-26-[address] Trevor Vieyra Work Phone: [facility] 04-26-2016 influenza, seasonal, injectable, preservative free Deb Coyner 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 Work Phone: [facility] 02-09-2016 pneumococcal polysaccharide vaccine, [address] Trevor Vieyra Work Phone: [facility] 12-12-2015 pneumococcal polysaccharide vaccine, 23 valent Christiano Huntley MD Work Phone: [facility] 12-24-2013 hepatitis B vaccine, adult dosage Christiano Huntley MD Work Phone: [facility] 12-24-2013 hepatitis B vaccine, unspecified formulation Christiano Huntley MD Work Phone: [facility] 11-21-2013 hepatitis B vaccine, adult dosage Christiano Huntley MD Work Phone: [facility] 10-22-2013 hepatitis B vaccine, adult dosage Christiano Huntley MD Work Phone: [facility] 04-10-2013 influenza, seasonal, injectable Christiano Huntley MD Work Phone: [facility] Payers Date Payer Category Payer Self-pay [id number] 2024 Unknown [id number] 2022 Medicare HMO [employer] JOY ROY [id number] 2020 Medicaid [facility] MEDICAID [facility] ARE [facility] MEDICAID [id number] 2020-Present [phone] [address] [place] [address] Medicaid [id number] 2019 Medicaid [id number] 2019 Medicare 2019 Medicare [facility] MEDICARE [facility] MEDICARE COMPLETE xxxxxxxxx 2019-Present xxxxxxxxx [id number] 2019 Private Health Insurance [id number]. [id number] 2007 Medicare [id number] Unknown [id number] 2.840.1.148094.3.579.2. 462 Unknown [id number] 2.840.1.763266.3.579.2. 462 Unknown [id number] 2.840.1.175465.3.579.2. 462 Unknown [id number] 2.840.1.676849.3.579.2. 462 Unknown [id number] 2.840.1.071598.3.579.2. 462 Unknown [id number] 2.840.1.163297.3.579.2. 462 Unknown [id number] 2.840.1.000053.3.579.2. 462 Unknown [id number] 2.840.1.777791.3.579.2. 462 Unknown [id number] 2.16.840.1.312777.3.579.2. 462 Unknown [id number] 2.16.840.1.855261.3.579.2. 462 Unknown [id number] 2.16.840.1.301900.3.579.2. 462 Unknown [id number] 2.16.840.1.925671.3.579.2. 462 Unknown [id number] 2.16.840.1.335140.3.579.2. 462 Unknown [id number] 2.16.840.1.879671.3.579.2. 462 Unknown [id number] 2.16.840.1.690510.3.579.2. 462 Unknown [id number] 2.16.840.1.428924.3.579.2. 462 Unknown [id number] 2.16.840.1.579745.3.579.2. 462 Unknown [id number] 2.16.840.1.385796.3.579.2. 462 Unknown [id number] 2.16.840.1.862536.3.579.2. 462 Social History Date Type Detail Facility Start: 11-13-2019 End: 09-17-2024 Tobacco smoking status NHIS Never smoker [place], [place] Start: 11-13-2019 End: 04-20-2022 Alcohol intake Current non-drinker of alcohol (finding) [place], [place] Start: 1965 Sex Assigned At Not on file M [place], [place] Start: 01-17-2020 End: 02-22-2022 Tobacco use and exposure [facility] used [facility] Start: 01-17-2020 End: 02-28-2023 Alcohol intake Ex-drinker (finding) [facility] Start: 01-17-2020 End: 02-15-2020 History SDOH Alcohol Frequency 1 [facility] Start: 12-05-2021 End: 04-08-2022 Exposure to SARS-CoV-2 (event) Not sure [facility] Start: 09-23-2021 End: 04-20-2022 Alcohol intake [facility] Work Phone: Start: 06-24-2020 End: 05-10-2023 Tobacco smoking status NHIS Unknown if ever smoked [facility] Start: 02-04-2021 None [facility] Start: 02-04-2021 Homeless [facility] Start: 05-17-2017 Non-smoker [facility] Start: 1965 Sex Assigned At Female W [facility] Start: 02-15-2020 End: 04-20-2022 Alcohol Use Disorder Identification Test - Consumption [AUDIT-C] [facility] Work Phone: How often to you hav e a drink containing alcohol? Never [facility] Work Phone: Average Number of Drinks Not on file [facility] Work Phone: How hard is it for y ou to pay for the very basics like food, housing, medical care, and heating Not very hard [facility] Work Phone: (I/We) worried cindy er (my/our) food would run out before (I/we) got money to buy more. Never true [facility] Work Phone: In the past 12 month s, was there a time when you were not able to pay the mortgage or rent on time? No [facility] Work Phone: Start: 02-08-2022 End: 10-23-2024 Sex Female (finding) [facility] Medical Equipment Procedure Code Equipment Code Equipment Origin al Text Equipment Identifier Dates Clip Weck Hem-O- Janelle Xl Gold Polymer Internal Ligate Laparoscopic Sterile - [id number] Start: 02-22-2022 Cheryl [id number] Sq-[id number] St art: 06-20-2016 Cheryl A219 Barnett Mri [id number] Start: 11-21-2019 Clip Weck Hem-O- Janelle Xl Gold Polymer Internal Ligate Laparoscopic Sterile - [id number] Start: 02-22-2022 Icd-A219 Barnett Mri [id number] Start: 11-22-2019 Mental Status Date Assessment Result Facility 09-17-2024 Cognitive function Voice/Name [facility] Work Phone: 03-16-2023 Cognitive function Level Of Cons ciousness Awake;Alert [facility] Work Phone: Clinical Notes 11-22-2019 to 10-11-2024 Note Date & Type Note Facility 10-11-2024 Evaluation note Diagnosis Onset Date Resolution History of DVT (deep vein thrombosis) acute October 11, 2024 9:07am Hypotension acute October 11 9:07am Paroxysmal atrial fibrillation acute October 11, 2024 9:07am History of implantable cardiac defibrillator (ICD) November 22, 2019 chronic October 11, 2024 9:07am Hyperlipidemia chronic October 11, 2024 9:07am History of coronary artery stent placement April 22, 2016 resolved October 11, 2024 9:07am [facility] Work Phone: 1(137) 425-117403-31-2025 Hospital Discharge instructions Additional Instructions Take the digoxin every other day starting 2 days from now. You will need to have a digoxin level checked. Follow-up with your liquid chlorine operator in approximately 2 to 3 weeks. Return with elevated heart rate, new or worsening symptoms.[facility] Work Phone: 1(972) 861-418403-10-2025 Discharge summary [facility] Medical Records Department [address] [place] [address] Emergency Department Summary 09/17/24 MR#: [id number] Acct: [id number] Name: PSENCER REDDING Rep #:[id number] : 1965 59 From: Marques Peace MD PCP: Dr. Trevor Vieyra MD Status:REG ER Location: ED HPI History of Present Illness Chief Complaint: Chest Pain Narrative Narrative: 59-year-old female past medical history of end-stage renal disease, coronary artery disease and ICDpresents with heart palpitations and minimal chest pressure at dialysis today. Started about 2 hours and 20 minutes ago. She was unable to receive her full dialysis, last was on Tuesday, 3 days ago asshe usually receives it every Tuesday, Tuesday and Tuesday. She relates history that she had heart palpitations and rapid heart rate a few months ago, just before [place]. They never found what wasgoing on. She states that EMS had have her do Valsalva maneuvers which alleviated her rapid heart rate. However, they tried this multiple times at dialysis without resolution. 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 [facility] Medical History Polycystic kidney disease Sudden cardiac Hypertriglyceridemia Hyperlipidemia History of torsades de pointes Atherosclerosis of coronary artery of [place] heart without angina pectoris Syncope and collapse Ventricular fibrillation Ischemic cardiomyopathy ESRD (end stage renal disease) on dialysis Nonsustained ventricular tachycardia History of recurrent miscarriages, not currently History of DVT (deep vein thrombosis) Congenital polycystic kidney disease History of allergic rhinitis Obesity Benign essential hypertension Home Medications ?Medication ?Instructions ?Recorded ?Last Taken ?Type sertraline 50 mg tablet 50 mg PO QHS depression 01/0803/15/23 History warfarin 1 mg tablet See Rx Instructions PO QHS b lood 01/19/17 03/15/23 History thinner cholecalciferol (vitamin D3) 25 1,000 unit PO QDAY 03/15/23 History mcg (1,000 unit) tablet vitamin B complex-vitamin C-folic 1 tab PO DAILY 03/1303/15/23 History acid 0.8 mg tablet (Nephro-Yahir) sevelamer carbonate 800 mg tablet 800 mg PO TID 30 day s #90 tabs 06/11/21 03/15/23 History belladonna alkaloids-opium 16.2 1 supp ND TID PRN pain 7 days #12 01/30/22 03/15/23 Rx mg-30 mg rectal suppository ea calcium carbonate (Tums) 400 mg PO BID 03/30/2203/15 History nitroglycerin 0.4 mg sublingual 0.4 mg sublingual Q5M PRN Chest 10/14/22 03/15/23 Rx tablet Pain #25 tabs fludrocortisone 0.1 mg tablet 0.1 mg PO DAILY #30 tabs 01/20/23 03/15/23 Rx ipratropium bromide 21 mcg (0.03 2 spray intranasal BI D 05/10/23 Unknown History %) nasal spray levothyroxine 25 mcg capsule 25 mcg PO DAILY 05/10/23 Unknown History zolpidem 5 mg tablet 10 mg PO QHS PRN PRN Insomni a 05/10/23 Unknown History midodrine 2.5 mg tablet 5 mg (2 x 2.5 mg) PO TID #90 tabs 06/01/23 Unknown Rx atorvastatin 40 mg tablet 40 mg PO QHS cholesterol #90 tabs 06/04/24 Unknown Rx methylprednisolone 4 mg tablets in See Rx Instructions PO PER PKG DIR 08/21/24 Unknown Rx a dose pack (Medrol (Aime)) #21 tabs digoxin 125 mcg (0.125 mg) tablet 125 mcg PO QODAY #30 tabs 09/17/24 Unknown Rx Allergy/AdvReac Type Severity Reaction Status Date / Time amoxicillin Allergy Rash Verified 09/17/24 16:08 doxercalciferol (From Allergy Hives Verified 09/17/24 16:08 Hectorol) etodolac Allergy Rash Verified 09/17/24 16:08 Penicillins (PCN) Allergy Rash Verified 09/17/24 16:08 sulfamethoxazole (From Allergy Rash Verified 09/17/24 16:08 Bactrim) tramadol Allergy Rash Verified 09/17/24 16:08 trimethoprim (From Bactrim) Allergy Rash Verified 09/17/24 16:08 strawberry AdvReac Vomiting Verified 09/17/24 16:08 Family History Father Hypertension Kidney disease Mother Diabetes Surgical History Hx of kidney removal History of implantable cardiac defibrillator (ICD) (11/22/19) History of coronary artery stent placement (04/22/16) fistulogram History of thyroid surgery Social History Smoking Status: Never smoker alcohol intake: never substance use type: does not use diet: other caffeine: No what type of physical activity do you participate in: none seatbelt use: always do you feel safe at home: Yes ROS ROS ED ROS Narrative Constitutional: No fever, no chills. HEENT: No sore throat. No neck pain. No loss of vision. No rhinorrhea. Cardiovascular: Minimal chest discomfort, feels more heart racing and positive heart palpitations and rapid heart rate. No pedal edema. Respiratory: No cough, no shortness of breath. Abdominal: No abdominal pain. No nausea. No vomiting. Genitourinary: No dysuria. No hematuria. Musculoskeletal: No myalgias. No arthralgias. Neurologic: No headaches. No dizziness. No lightheadedness. Skin: No rash. No change in color. Psychiatric: No depression. No anxiety. EXAM Physical Exam Narrative Exam Narrative: Afebrile. Vital signs noted. Nontoxic-appearing. Cardiovascular examination reveals an irregularly irregular tachycardia at 162 bpm. Lungs clear to auscultation bilaterally. Abdomen soft nontender. Neurological examination nonfocal and nonlateralizing. No appreciated pedal edema. Const Vital Signs: 09/17/24 16:08 09/17/24 17:11 Temperature 98.6 F Temperature Source Oral Pulse Rate 162 H 91 Respiratory Rate 22 H 17 Blood Pressure 127/104 H 102/51 L Blood Pressure Mean 111 68 Pulse Ox 99 95 MDM MDM MDM Narrative Medical decision making narrative: Differential diagnosis includes but not limited to paroxysmal SVT versus A-fib with RVR versus sinus tachycardia. Given her history of ICD as well as coronaryartery disease, comprehensive workup was pursued. EKG obtained and interpreted by myself independently does show an irregularly irregular tach ycardia at 162 bpm although it is being read as sinus tachycardia electronically. She will be givenCardizem as I feel she probably has more atrial fibrillation with RVR. Ithas not broken with Valsalva maneuvers already so I do not feel adenosine is indicated. I reviewed her laboratory work and she has normal white count of 5.9 with hemoglobin stable at 11.6with platelet count normal at 207. INR is appropriately elevated at 2.5 with her use of Coumadin. Ireviewed her BMP which shows BUN of 25 and creatinine 6.01 consistent with her end-stage renal disease. LFTs are grossly unremarkable. Anion gap slightly elevated at 17 withchloride low at 89. Chest x-ray in 1 view interpreted by myself independently shows no acute process, no pneumonia or pneumothorax. I reviewed the radiology report which confirms my independent interpretation. After 20 mg of Cardizem intravenously, repeat EKG was obtained and interpreted by myself which shows normal sinus rhythm at 96 bpm with PVCs. I discussed patient with Dr. Vega with cardiology as she sees Dr. Garvin. He would like her to have 0.5 mg of digoxin intravenously, then she was written a prescription for 125 mcg which she is supposed to take every other day for rate control. This was advised because she has history of hypotension. She is to follow-up in 2 to 3 weeks with cardiology for digoxin level. Repeat examinationafter rate control shows that she feels improved and is no longer having chest discomfort. She is currentlyrate controlled. I do feel that she cardioverted as well. I do not feel she requires observation oradmission at this time. Disposition is discharged home in stable condition. History & Record Review Discussion w/independent historian: Patient Lab Data Attestation: I reviewed the patient's lab results. Labs: Laboratory Results - last 24 hr 09/17/24 16:23 WBC 5.9 RBC 3.51 L Hgb 11.6 L Hct 34.0 L MCV 96.9 MCH 33.0 H MCHC 34.1 RDW Std Deviation 51.5 H RDW Coeff of Tana 14.8 H Plt Count 207 MPV 9.3 Immature Gran % (Auto) 0.200 Neut % (Auto) 68.7 Lymph % (Auto) 18.8 L [place] % (Auto) 6.6 Eos % (Auto) 5.2 H Baso % (Auto) 0.5 Absolute Neuts (auto) 4.1 Absolute Lymphs (auto) 1.11 Nucleated RBC % 0 PT 27.9 H INR 2.5 Sodium 139 Potassium 3.5 Chloride 89 L Carbon Dioxide 33.0 H Anion Gap 17 H BUN 25 H Creatinine 6.01 H Estim Creat Clear Calc 10.10 L Est GFR (MDRD) Non-Af 7 L BUN/Creatinine Ratio 4.2 L Glucose 93 Calcium 8.5 Total Bilirubin 0.26 AST 25 ALT 23 Alkaline Phosphatase 96 Total Protein 7.6 Albumin 4.5 Globulin 3.1 Albumin/Globulin Ratio 1.4 Radiography Chest X-Ray - ED: 1 View, Read by ED Physician and Read by Radiologist Diagnostic Testing: Clinical Impression(s) from Imaging Studies Chest X-Ray 09/17/24 16:28 IMPRESSION: Stable chest radiograph. Reading Location: [facility] Management Discussion w/another healthcare provider: Engineering Recruiter (Dr. Vega, cardiology) Discharge Plan Triage Chief Complaint: Chest Pain ED Provider: Marques Peace Dx/Rx/DC Orders Clinical Impression: Atrial fibrillation with rapid ventricular response, ESRD (end stage renal disease) on dialysis, snf current use of anticoagulant Instructions: ED AFIB Prescriptions: New digoxin 125 mcg (0.125 mg) tablet 125 mcg PO QODAY Qty: 30 0RF No Action cholecalciferol (vitamin D3) 1,000 unit tablet 1,000 unit PO QDAY sevelamer carbonate 800 mg tablet 800 mg PO TID 30 Days Qty: 90 Patient Comments: 4 tabs tid Nephro-Yahir 0.8 mg tablet 1 tab PO DAILY calcium carbonate [Tums] 200 mg calcium (500 mg) tablet,chewable 400 mg PO BID fludrocortisone 0.1 mg tablet 0.1 mg PO DAILY Qty: 30 6RF levothyroxine 25 mcg capsule 25 mcg PO DAILY ipratropium bromide 21 mcg (0.03 %) spray,non-aerosol 2 spray intranasal BID Rx Instructions: administer into each nostril methylprednisolone [Medrol (Aime)] 4 mg tablets,dose pack See Rx Instructions PO PER PKG DIR Qty: 21 0RF Rx Instructions: PO PER PKG DIR warfarin 1 MG tablet See Rx Instructions PO QHS Rx Instructions: 7 mg orally at bedtime; sertraline 50 MG tablet 50 mg PO QHS zolpidem 5 mg tablet 10 mg PO QHS PRN PRN (Reason: Insomnia) belladonna alkaloids-opium 16.2-30 mg suppository 1 supp ND TID PRN (Reason: pain) 7 Days Qty: 12 0RF nitroglycerin 0.4 mg tablet, sublingual 0.4 mg SUBLINGUAL Q5M PRN (Reason: Chest Pain) Qty: 25 2RF midodrine 2.5 mg tablet 5 mg PO TID Qty: 90 11RF atorvastatin 40 mg tablet 40 mg PO QHS Qty: 90 3RF Primary Care Provider: Trevor Vieyra Referrals: Ernesto Garvin MD [Med Staff - Active Staff] - 1-2 Weeks Trevor Vieyra MD [Primary Care Provider] - Activity Restrictions/Additional Instructions: Take the digoxin every other day starting 2 days from now. You will need to have a digoxin level checked. Follow-up with your liquid chlorine operator in approximately2 to 3 weeks. Return with elevated heart rate, new or worsening symptoms. Print Language: Palestinian Disposition Disposition: Home, Self Care What to do if you have Problems For any increased pain, shortness of breath, bleeding, nausea or vomiting, chestpain, or any unexpected problems, contact your Primary Care Provider. Call [facility] ([phone]) or report tothe closest Emergency Room. Call 911 if necessary. 09/17/24 1821 Cosigner Signature (if applicable): CC: Dr. Trevor Vieyra MD ~ Signed [facility]03-10-2025 Radiology Diagnostic study note [facility] Imaging Services [address] [place] [address] Chest 1 View (Portable) MR#: [id number] Acct: [id number] Name: SPENCER REDDING Rep #: [id number] : 1965 F 59 From: Joycelyn Hernandez MD PCP: Dr. Trevor Vieyra MD Status: PRE ER Study:Chest 1 View (Portable) Date of Exam: 09/17/24 Exam# [id number] Ordering Dr: Marques Peace MD PROCEDURE: CHEST 1 VIEW (PORTABLE) REASON FOR EXAM: 59-year-old female, palpitations, coronary artery disease. TECHNIQUE: Frontal view of the chest. COMPARISON: Chest radiograph 07/08/2024. FINDINGS: Partially visualized vascular stent overlying the left axilla. Left chest wall cardiac conduction device Stable mild cardiomegaly. Calcification of the thoracic aorta. No focal consolidation, pleural effusion or pneumothorax. Degenerative changes are identified within the thoracic spine. RAD/Chest 1 View (Portable) IMPRESSION: Stable chest radiograph. Reading Location: [id number] CC: Dr. Marques Peace MD; Dr. Trevor Vieyra MD ~ Centrifugal Extractor Operator: Signed [facility]03-10-2025 Discharge summary Author Marques Peace [facility] Note Date/Time September 17, 2024 6:2 1pm [facility] Medical Records Department [address] [place] [address] Emergency Department Summary 09/17/24 MR#: [id number] Acct: [id number] Name: SPENCER REDDING Rep #:[id number] : 1965 59 From: Marques Peace MD PCP: Dr. Trevor Vieyra MD Status:REG ER Location: ED HPI History of Present Illness Chief Complaint: Chest Pain Narrative Narrative: 59-year-old female past medical history of end-stage renal disease, coronary artery disease and ICD presents with heart palpitations and minimal chest pressure at dialysis today. Started about 2 hours and 20 minutes ago. She was unable to receive her full dialysis, last was on Tuesday, 3 days ago as she usually receives it every Tuesday, Tuesday and Tuesday. She relates history that she had heart palpitations and rapid heart rate a few months ago, just before [place]. They never found what was going on. She states that EMS had have her do Valsalva maneuvers which alleviated her rapid heart rate. However, they tried this multiple times at dialysis without resolution. 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 [facility]SH [facility] Medical History Polycystic kidney disease Sudden cardiac Hypertriglyceridemia Hyperlipidemia History of torsades de pointes Atherosclerosis of coronary artery of [place] heart without angina pectoris Syncope and collapse Ventricular fibrillation Ischemic cardiomyopathy ESRD (end stage renal disease) on dialysis Nonsustained ventricular tachycardia History of recurrent miscarriages, not currently History of DVT (deep vein thrombosis) Congenital polycystic kidney disease History of allergic rhinitis Obesity Benign essential hypertension Home Medications ?Medication ?Instructions ?Recorded ?Last Taken ?Type sertraline 50 mg tablet 50 mg PO QHS depression 01/0803/15/23 History warfarin 1 mg tablet See Rx Instructions PO QHS b lood 01/19/17 03/15/23 History thinner cholecalciferol (vitamin D3) 25 1,000 unit PO QDAY 03/15/23 History mcg (1,000 unit) tablet vitamin B complex-vitamin C-folic 1 tab PO DAILY 03/1303/15/23 History acid 0.8 mg tablet (Nephro-Yahir) sevelamer carbonate 800 mg tablet 800 mg PO TID 30 day s #90 tabs 06/11/21 03/15/23 History belladonna alkaloids-opium 16.2 1 supp ND TID PRN pain 7 days #12 01/30/22 03/15/23 Rx mg-30 mg rectal suppository ea calcium carbonate (Tums) 400 mg PO BID 03/30/2203/15 History nitroglycerin 0.4 mg sublingual 0.4 mg sublingual Q5M PRN Chest 10/14/22 03/15/23 Rx tablet Pain #25 tabs fludrocortisone 0.1 mg tablet 0.1 mg PO DAILY #30 tabs 01/20/23 03/15/23 Rx ipratropium bromide 21 mcg (0.03 2 spray intranasal BI D 05/10/23 Unknown History %) nasal spray levothyroxine 25 mcg capsule 25 mcg PO DAILY 05/10/23 Unknown History zolpidem 5 mg tablet 10 mg PO QHS PRN PRN Insomni a 05/10/23 Unknown History midodrine 2.5 mg tablet 5 mg (2 x 2.5 mg) PO TID #90 tabs 06/01/23 Unknown Rx atorvastatin 40 mg tablet 40 mg PO QHS cholesterol #90 tabs 06/04/24 Unknown Rx methylprednisolone 4 mg tablets in See Rx Instructions PO PER PKG DIR 08/21/24 Unknown Rx a dose pack (Medrol (Aime)) #21 tabs digoxin 125 mcg (0.125 mg) tablet 125 mcg PO QODAY #30 tabs 09/17/24 Unknown Rx Allergy/AdvReac Type Severity Reaction Status Date / Time amoxicillin Allergy Rash Verified 09/17/24 16:08 doxercalciferol (From Allergy Hives Verified 09/17/24 16:08 Hectorol) etodolac Allergy Rash Verified 09/17/24 16:08 Penicillins (PCN) Allergy Rash Verified 09/17/24 16:08 sulfamethoxazole (From Allergy Rash Verified 09/17/24 16:08 Bactrim) tramadol Allergy Rash Verified 09/17/24 16:08 trimethoprim (From Bactrim) Allergy Rash Verified 09/17/24 16:08 strawberry AdvReac Vomiting Verified 09/17/24 16:08 Family History Father Hypertension Kidney disease Mother Diabetes Surgical History Hx of kidney removal History of implantable cardiac defibrillator (ICD) (11/22/19) History of coronary artery stent placement (04/22/16) fistulogram History of thyroid surgery Social History Smoking Status: Never smoker alcohol intake: never substance use type: does not use diet: other caffeine: No what type of physical activity do you participate in: none seatbelt use: always do you feel safe at home: Yes ROS ROS ED ROS Narrative Constitutional: No fever, no chills. HEENT: No sore throat. No neck pain. No loss of vision. No rhinorrhea. Cardiovascular: Minimal chest discomfort, feels more heart racing and positive heart palpitations and rapid heart rate. No pedal edema. Respiratory: No cough, no shortness of breath. Abdominal: No abdominal pain. No nausea. No vomiting. Genitourinary: No dysuria. No hematuria. Musculoskeletal: No myalgias. No arthralgias. Neurologic: No headaches. No dizziness. No lightheadedness. Skin: No rash. No change in color. Psychiatric: No depression. No anxiety. EXAM Physical Exam Narrative Exam Narrative: Afebrile. Vital signs noted. Nontoxic-appearing. Cardiovascular examination reveals an irregularly irregular tachycardia at 162 bpm. Lungs clear to auscultation bilaterally. Abdomen soft nontender. Neurological examination nonfocal and nonlateralizing. No appreciated pedal edema. Const Vital Signs: 09/17/24 16:08 09/17/24 17:11 Temperature 98.6 F Temperature Source Oral Pulse Rate 162 H 91 Respiratory Rate 22 H 17 Blood Pressure 127/104 H 102/51 L Blood Pressure Mean 111 68 Pulse Ox 99 95 MDM MDM MDM Narrative Medical decision making narrative: Differential diagnosis includes but not limited to paroxysmal SVT versus A-fib with RVR versus sinus tachycardia. Given her history of ICD as well as coronaryartery disease, comprehensive workup was pursued. EKG obtained and interpreted by myself independently does show an irregularly irregular tachycardia at 162 bpm although it is being read as sinus tachycardia electronically. She will be given Cardizem as I feel she probably has more atrial fibrillation with RVR. Ithas not broken with Valsalva maneuvers already so I do not feel adenosine is indicated. I reviewed her laboratory work and she has normal white count of 5.9 with hemoglobin stable at 11.6 with platelet count normal at 207. INR is appropriately elevated at 2.5 with her use of Coumadin. I reviewed her BMP which shows BUN of 25 and creatinine 6.01 consistent with her end-stage renal disease. LFTs are grossly unremarkable. Anion gap slightly elevated at 17 withchloride low at 89. Chest x-ray in 1 view interpreted by myself independently shows no acute process, no pneumonia or pneumothorax. I reviewed the radiology report which confirms my independent interpretation. After 20 mg of Cardizem intravenously, repeat EKG was obtained and interpreted by myself which shows normal sinus rhythm at 96 bpm with PVCs. I discussed patient with Dr. Vega with cardiology as she sees Dr. Garvin. He would like her to have 0.5 mg of digoxin intravenously, then she was written a prescription for 125 mcg which she is supposed to take every other day for rate control. This was advised because she has history of hypotension. She is to follow-up in 2 to 3 weeks with cardiology for digoxin level. Repeat examinationafter rate control shows that she feels improved and is no longer having chest discomfort. She is currently rate controlled. I do feel that she cardioverted as well. I do not feel she requires observation or admission at this time. Disposition is discharged home in stable condition. History & Record Review Discussion w/independent historian: Patient Lab Data Attestation: I reviewed the patient's lab results. Labs: Laboratory Results - last 24 hr 09/17/24 16:23 WBC 5.9 RBC 3.51 L Hgb 11.6 L Hct 34.0 L MCV 96.9 MCH 33.0 H MCHC 34.1 RDW Std Deviation 51.5 H RDW Coeff of Tana 14.8 H Plt Count 207 MPV 9.3 Immature Gran % (Auto) 0.200 Neut % (Auto) 68.7 Lymph % (Auto) 18.8 L [place] % (Auto) 6.6 Eos % (Auto) 5.2 H Baso % (Auto) 0.5 Absolute Neuts (auto) 4.1 Absolute Lymphs (auto) 1.11 Nucleated RBC % 0 PT 27.9 H INR 2.5 Sodium 139 Potassium 3.5 Chloride 89 L Carbon Dioxide 33.0 H Anion Gap 17 H BUN 25 H Creatinine 6.01 H Estim Creat Clear Calc 10.10 L Est GFR (MDRD) Non-Af 7 L BUN/Creatinine Ratio 4.2 L Glucose 93 Calcium 8.5 Total Bilirubin 0.26 AST 25 ALT 23 Alkaline Phosphatase 96 Total Protein 7.6 Albumin 4.5 Globulin 3.1 Albumin/Globulin Ratio 1.4 Radiography Chest X-Ray - ED: 1 View, Read by ED Physician and Read by Radiologist Diagnostic Testing: Clinical Impression(s) from Imaging Studies Chest X-Ray 09/17/24 16:28 IMPRESSION: Stable chest radiograph. Reading Location: [facility] Management Discussion w/another healthcare provider: Engineering Recruiter (Dr. Vega, cardiology) Discharge Plan Triage Chief Complaint: Chest Pain ED Provider: Marques Peace Dx/Rx/DC Orders Clinical Impression: Atrial fibrillation with rapid ventricular response, ESRD (end stage renal disease) on dialysis, snf current use of anticoagulant Instructions: ED AFIB Prescriptions: New digoxin 125 mcg (0.125 mg) tablet 125 mcg PO QODAY Qty: 30 0RF No Action cholecalciferol (vitamin D3) 1,000 unit tablet 1,000 unit PO QDAY sevelamer carbonate 800 mg tablet 800 mg PO TID 30 Days Qty: 90 Patient Comments: 4 tabs tid Nephro-Yahir 0.8 mg tablet 1 tab PO DAILY calcium carbonate [Tums] 200 mg calcium (500 mg) tablet,chewable 400 mg PO BID fludrocortisone 0.1 mg tablet 0.1 mg PO DAILY Qty: 30 6RF levothyroxine 25 mcg capsule 25 mcg PO DAILY ipratropium bromide 21 mcg (0.03 %) spray,non-aerosol 2 spray intranasal BID Rx Instructions: administer into each nostril methylprednisolone [Medrol (Aime)] 4 mg tablets,dose pack See Rx Instructions PO PER PKG DIR Qty: 21 0RF Rx Instructions: PO PER PKG DIR warfarin 1 MG tablet See Rx Instructions PO QHS Rx Instructions: 7 mg orally at bedtime; sertraline 50 MG tablet 50 mg PO QHS zolpidem 5 mg tablet 10 mg PO QHS PRN PRN (Reason: Insomnia) belladonna alkaloids-opium 16.2-30 mg suppository 1 supp ND TID PRN (Reason: pain) 7 Days Qty: 12 0RF nitroglycerin 0.4 mg tablet, sublingual 0.4 mg SUBLINGUAL Q5M PRN (Reason: Chest Pain) Qty: 25 2RF midodrine 2.5 mg tablet 5 mg PO TID Qty: 90 11RF atorvastatin 40 mg tablet 40 mg PO QHS Qty: 90 3RF Primary Care Provider: Trevor Vieyra Referrals: Ernesto Garvin MD [Med Staff - Active Staff] - 1-2 Weeks Trevor Vieyra MD [Primary Care Provider] - Activity Restrictions/Additional Instructions: Take the digoxin every other day starting 2 days from now. You will need to have a digoxin level checked. Follow-up with your liquid chlorine operator in approximately2 to 3 weeks. Return with elevated heart rate, new or worsening symptoms. Print Language: Palestinian Disposition Disposition: Home, Self Care What to do if you have Problems For any increased pain, shortness of breath, bleeding, nausea or vomiting, chestpain, or any unexpected problems, contact your Primary Care Provider. Call [facility] ([phone]) or report to the closest Emergency Room. Call 911 if necessary. 09/17/241820 <Electronically signed by Marques Peace MD> Cosigner Signature (if applicable): CC: Dr. Trevor Vieyra MD ~ Signed [facility] Work Phone: 1(394) 336-920412-30-2024 History of Present illness Narrative* Gilberto Vieyra MD - 07/09/2024 10:00 AM EST [facility] Cardiology Note Chief Complaint: Chief Complaint Patient presents with Annual Exam History of Present Illness: Spencer Redding is a 58 y.o. female presents for follow-up status post subcutaneous ICD implantation and generator change in the setting of ventricular tachycardia. She also had hypotension and was previously on midodrine and Florinef. As of late, the last 3 to 4 weeks she has been hypertensive. Birxb105/70. No trouble at the ICD site. Device interrogations are reviewed demonstrating good sensing and impedance and no significant arrhythmia. Past Medical History: Past Medical History: Diagnosis Date Abnormal EKG CAD (coronary artery disease) Cardiac arrest (HCC) Chest pain, unspecified CHF (congestive heart failure) ([facility]/HCC) ([facility]) Chronic kidney disease Depression DVT (deep venous thrombosis) ([facility]) 2006 Left below knee End stage renal disease on dialysis ([facility]) Endocarditis Hypertension Left ventricular dysfunction Osteoarthritis Presence of stent in coronary artery Ventricular tachycardia Past Surgical History Past Surgical History: Procedure Laterality Date AV FISTULA REPAIR Right 06/24/2015 CARDIAC DEFIBRILLATOR PLACEMENT 06/21/2016 SUBCUTANEOUS IMPLANTABLE CARDIOVERTER DEFIBRILLATOR SYSTEM IMPLANTATION CARDIAC DEFIBRILLATOR PLACEMENT 11/22/2019 SUBCUTANEOUS ICD SYSTEM GENERATOR CHANGE. CARDIAC PROCEDURE Bilateral 04/22/2016 Right and Left coronary angiography CARDIAC PROCEDURE Left 06/17/2016 CORONARY ANGIOPLASTY 04/22/2016 RCA/PDA, LAD. Balloon angioplasty/Stent. CORONARY ANGIOPLASTY WITH STENT PLACEMENT Left 04/21/2016 [facility] DIALYSIS FISTULA CREATION Left 12/23/2015 [facility] AVG DIALYSIS FISTULA CREATION Left 12/26/2006 upper arm DIALYSIS FISTULA CREATION Right 02/20/2015 brachiocephalic NEPHRECTOMY Right 02/2022 OTHER SURGICAL HISTORY removal of nodes x3 Family History Family History Problem Relation Name Age of Onset Cancer Mother Kidney disease Brother Kidney disease Father Heart disease Father High Blood Pressure Father Diabetes Mother Social History Social History Tobacco Use Smoking status: Never Smokeless tobacco: Never Substance Use Topics Alcohol use: No Alcohol/week: 0.0 standard drinks of alcohol Drug use: No Allergies: Allergies Allergen Reactions Doxercalciferol Other reaction(s): Hives, Hives, Other (See Comments), Severe N/V Penicillins Hives and Rash [place] Extract Nausea And Vomiting and Rash Other reaction(s): Vomiting, Vomiting Etodolac Rash Sevelamer Other reaction(s): GI Upset, Nausea, Unknown Sulfamethoxazole-Trimethoprim Rash Other reaction(s): GI Upset Tramadol Rash Other reaction(s): Intolerance, Nausea Sulfamethoxazole Other reaction(s): Rash Trimethoprim Other reaction(s): Rash Medications: Current Outpatient Medications: atorvastatin (Lipitor) 40 MG tablet, Take 40 mg by mouth Nightly. for cholesterol, Disp: , Rfl: B Lpabgjd-P-Xadks Acid (RANI-YAHIR PO), Take 1 tablet by mouth in the morning., Disp: , Rfl: calcium carbonate (Tums Ultra) 1000 MG chewable tablet, Chew 1,000 mg in the morning., Disp: , Rfl: cholecalciferol (Vitamin D-3) 50 MCG (1999) capsule, Take by mouth daily., Disp: , Rfl: fluticasone (Flonase) 50 MCG/ACT nasal spray, 1 (ONE) SPRAY(S) TWICE DAILY EACH NOSTRIL, Disp: , Rfl: ipratropium (Atrovent) 0.03 % nasal spray, 1-2 SPRAY(S) EACH NOSTRIL BEFORE BEDTIME AND NEEDEDE EVERY 6 HOURS FOR COUGH, MUCOUS, RUNNY NOSE, Disp: , Rfl: levothyroxine (Synthroid, Levoxyl) 25 MCG tablet, Take 25 mcg by mouth daily., Disp: , Rfl: midodrine (Proamatine) 2.5 MG tablet, Take 2.5 mg by mouth 3 times daily., Disp: , Rfl: oxyCODONE-acetaminophen (Percocet) 5-325 MG tablet, Take 1 tablet by mouth every 6 hours as needed., Disp: , Rfl: sertraline (Zoloft) 50 MG tablet, Take 50 mg by mouth daily., Disp: , Rfl: sevelamer carbonate (Renvela) 800 MG tablet, Take 5 tablets by mouth 3 times daily., Disp: , Rfl: warfarin (Coumadin) 2 MG tablet, Take 2 mg by mouth. Take as directed per After Visit Summary., Disp: , Rfl: warfarin (Coumadin) 5 MG tablet, Take 5 mg by mouth. Take as directed per After Visit Summary., Disp: , Rfl: zolpidem (Ambien) 10 MG tablet, Take 10 mg by mouth Nightly as needed., Disp: , Rfl: Review of Systems: Review of Systems Constitutional: Negative. Negative for activity change, chills, diaphoresis, fatigue and fever. HENT: Negative. Negative for nosebleeds and trouble swallowing. Eyes: Negative. Negative for discharge and visual disturbance. Respiratory: Negative. Negative for apnea, cough, chest tightness, shortness of breath and wheezing. Cardiovascular: Positive for palpitations. Negative for chest pain and leg swelling. Gastrointestinal: Negative. Negative for abdominal distention, abdominal pain, blood in stool, diarrhea, nausea and vomiting. Endocrine: Negative. Negative for cold intolerance and heat intolerance. Genitourinary: Negative. Negative for hematuria. Musculoskeletal: Negative. Negative for gait problem and myalgias. Skin: Negative. Negative for color change and rash. Neurological: Negative. Negative for dizziness, seizures, syncope, facial asymmetry, speech difficulty, weakness, light-headedness, numbness and headaches. Hematological: Negative. Does not bruise/bleed easily. Psychiatric/Behavioral: Negative. Negative for dysphoric mood. Physical Examination: Vitals: Vitals: 07/09/24 0957 BP: (!) 152/70 BP Location: Right arm Patient Position: Sitting BP Cuff Size: Large adult Pulse: 72 SpO2: 98% Weight: 183 lb (83 kg) Height: 5' (1.524 m) Body mass index is 35.74 kg/m . Physical Exam Vitals reviewed. Constitutional: Appearance: Normal appearance. HENT: Head: Normocephalic. Right Ear: External ear normal. Left Ear: External ear normal. Nose: Nose normal. Mouth/Throat: Mouth: Mucous membranes are moist. Eyes: Pupils: Pupils are equal, round, and reactive to light. Cardiovascular: Rate and Rhythm: Normal rate and regular rhythm. Heart sounds: No murmur heard. Pulmonary: Effort: No respiratory distress. Musculoskeletal: General: Normal range of motion. Right lower leg: No edema. Left lower leg: No edema. Skin: General: Skin is warm and dry. Coloration: Skin is not jaundiced. Neurological: General: No focal deficit present. Mental Status: She is alert. Motor: No weakness. Psychiatric: Mood and Affect: Mood normal. Behavior: Behavior normal. Thought Content: Thought content normal. Judgment: Judgment normal. Laboratory Tests: Lab Results Component Value Date WBC 7.8 11/22/2019 HGB 15.4 11/22/2019 MCV 86.2 11/22/2019 No results found for: GLUCOSE, CALCIUM, NA, K, CO2, CL, BUN, CREATININE @LASTCMP@ No results found for: CHLPL, CHOL No results found for: TRIG No results found for: HDL No results found for: LDLCALC Assessment and Plan: Ventricular tachycardia: Status post subcutaneous ICD implantation. Device remains well-healed and is functioning normally. We will continue to follow device clinic per routine. Now that she is hypertensive beta-genesis is being added by her coupon collection clerk. From a rhythm standpoint she is doing well we will see her yearly documented in this [facility]08-05-2024 NoteHNO ID: [id number] Author: LUCAS RUFF RN Service: ? Author Type: Registered Nurse Type: Progress Notes Filed: 02/13/2024 13:26 Note Text: [facility] POPULATION HEALTH NAVIGATION OUTREACH Action/FYI Patient Identified by Name and : Yes, via phone Reason for Outreach Attribution: Attribution review/confirmation Care Gap Reviewed:: Outreach Outcome/Action Unable to reach patient: Left message Population Health Navigation Workflow Attribution Payer: [facility] Navigation Signature: Lucas Ruff RN February 13, 2024 1:25 [facility]08-05-2024 History of Present illness Narrative* Lucas Ruff RN - 02/13/2024 1:25 PM EDT [facility] POPULATION HEALTH NAVIGATION OUTREACH Action/FYI Patient Identified by Name and : Yes, via phone Reason for Outreach Attribution: Attribution review/confirmation Care Gap Reviewed:: Outreach Outcome/Action Unable to reach patient: Left message Population Health Navigation Workflow Attribution Payer: [facility] Navigation Signature: Lucas Ruff RN February 13, 2024 1:25 PM [facility] NotePatient Outreach (AGACM) SPENCER REDDING ([id number]) 1965 F Date Time Provider Department 02/13/24 LUCAS RUFF AGA During your visit today, we recorded the following information about you: Lucas Ruff RN 02/13/2024 1:26 PM Signed [facility] POPUL[facility] HEALTH NAVIGATION OUTREACH Action/FYI Patient Identified by Name and : Yes, via phone Reason for Outreach Attribution: Attribution review/confirmation Care Gap Reviewed:: Outreach Outcome/Action Unable to reach patient: Left message Population Health Navigation Workflow Attribution Payer: [facility] Navigation Signature: Lucas Ruff RN February 13, 2024 1:25 PM Allergies As of Date: 02/13/2024 Noted Allergy Reaction PENICILLINS 11/05/2015 4 - Hives 2 - Rash STRAWBERRY 04/15/2017 11 - Vomiting 2 - Rash ETODOLAC 05/03/2016 2 - Rash SEVELAMER 05/03/2016 8 - GI Upset SULFAMETHOXAZOLE-TRIMETHOPRIM 05/03/2016 8 - GI Upset 2 - Rash TRAMADOL 05/03/2016 5 - Intolerance 2 - Rash Date Reviewed: 04/28/2023 Reviewed by: Baljit Hernandez MA - Fully Assessed Reason for Visit: Population Health Navigation Outreach [[id number]] Cmt: [facility] Attributed Member - Added to Attribution List Prescriptions as of 02/13/2024 - fludrocortisone (FLORINEF) 0.1 mg tablet Take 0.1 mg by mouth once daily. - RANI-YAHIR 0.8 mg tab Take 1 tablet by mouth every afternoon. - calcium carbonate (TUMS ULTRA) 400 mg (1,000 mg) chew Take 1,000 mg by mouth once daily. - gabapentin (NEURONTIN) 600 mg tablet Take 600 mg by mouth daily at bedtime. - sevelamer carbonate (RENVELA) 800 mg tablet Take 5 tablets by mouth three times daily with meals. - Cholecalciferol, Vitamin D3, 50 mcg (2,000 unit) cap Take by mouth once daily. - zolpidem (AMBIEN) 5 mg tablet Take 10 mg by mouth at bedtime as needed. - nitroglycerin sublingual (NITROQUICK) 0.4 mg SL tablet DISSOLVE 1 TAB UNDER THE TONGUE EVERY 5 MINUTES NEEDED FOR CHEST PAIN - atorvastatin (LIPITOR) 40 mg tablet TAKE 1 TABLET BY MOUTH EVERY DAY AT BEDTIME FOR CHOLESTEROL - metoprolol tartrate, short acting, (LOPRESSOR) 25 mg tablet Take 25 mg by mouth once daily. - warfarin (COUMADIN) 7.5 mg tablet Take 7 mg by mouth once daily. - sertraline (ZOLOFT) 50 mg tablet Take 50 mg by mouth once daily. Problem List As Of Date 02/13/2024 Noted Resolved Polycystic kidney [Q61.3] 01/28/2022 Gross hematuria [R31.0] 01/28/2022 Hydronephrosis of right kidney [N13.30] 01/28/2022 Coronary artery abnormality [Q24.5] 02/03/2022 History of recurrent deep vein thrombosis (DVT)*02/03/2022 Obesity, Class II, BMI 35-39.9 [E66.9] 02/09/2022 Abdominal pain [R10.9] 02/10/2023 Obesity, Class I, BMI 30-34.9 [E66.9] 02/12/2023 Preop examination [Z01.818] 02/16/2023 Primary hypertension [I10] 05/03/2016 Anemia in chronic kidney disease [N18.9, D63.1] 06/12/2013 Atherosclerosis of coronary artery [I25.10] 05/04/[address] [Z95.810] 06/21/2018 Cardiomyopathy (HCC) [I42.9] 05/03/2016 Dependence on renal dialysis (HCC) [Z99.2] 09/08/2007 DVT (deep venous thrombosis) (HCC) [I82.409] 07/11/2006 End-stage renal disease (HCC) [N18.6] 05/03/2016 History of thrombosis [Z86.718] 05/03/2016 Mixed hyperlipidemia [E78.2] 02/17/2023 Left flank pain [R10.9] 02/28/2023 Encounter Status:Closed by LUCAS RUFF on 02/13/24[facility]-20-[facility] History of Present illness Narrative* Gilberto Vieyra MD - 06/20/2023 9:00 AM EST [facility] Cardiology Note Chief Complaint: Chief Complaint Patient presents with 1 Year Follow-up History of Present Illness: Spencer Redding is a 57 y.o. female presenting for follow-up status post subcutaneous ICD generator change the setting of ventricular tachycardia renal failure on dialysis. She is now status post left nephrectomy. She had significant issue with hypotension. Pressures with sustained in the 80s. She is now off of her beta-genesis on midodrine and feeling much improved. It was to the point where she was reluctantto leave her home. She was symptomatic with hypotension while driving. No further issues once medications had been discontinued. No significant shortness of breath. No trouble at the site. Past Medical History: Past Medical History: Diagnosis Date Abnormal EKG CAD (coronary artery disease) Cardiac arrest ([facility]) Chest pain, unspecified CHF (congestive heart failure) ([facility]/HCC) ([facility]) Chronic kidney disease Depression DVT (deep venous thrombosis) ([facility]) 2006 Left below knee End stage renal disease on dialysis ([facility]) Endocarditis Hypertension Left ventricular dysfunction Osteoarthritis Presence of stent in coronary artery Ventricular tachycardia Past Surgical History Past Surgical History: Procedure Laterality Date AV FISTULA REPAIR Right 06/24/2015 CARDIAC DEFIBRILLATOR PLACEMENT 06/21/2016 SUBCUTANEOUS IMPLANTABLE CARDIOVERTER DEFIBRILLATOR SYSTEM IMPLANTATION CARDIAC DEFIBRILLATOR PLACEMENT 11/22/2019 SUBCUTANEOUS ICD SYSTEM GENERATOR CHANGE. CARDIAC PROCEDURE Bilateral 04/22/2016 Right and Left coronary angiography CARDIAC PROCEDURE Left 06/17/2016 CORONARY ANGIOPLASTY 04/22/2016 RCA/PDA, LAD. Balloon angioplasty/Stent. CORONARY ANGIOPLASTY WITH STENT PLACEMENT Left 04/21/2016 [facility] DIALYSIS FISTULA CREATION Left 12/23/2015 [facility] AVG DIALYSIS FISTULA CREATION Left 12/26/2006 upper arm DIALYSIS FISTULA CREATION Right 02/20/2015 brachiocephalic NEPHRECTOMY Right 02/2022 OTHER SURGICAL HISTORY removal of nodes x3 Family History Family History Problem Relation Name Age of Onset Cancer Mother Kidney disease Brother Kidney disease Father Heart disease Father High Blood Pressure Father Diabetes Mother Social History Social History Tobacco Use Smoking status: Never Smokeless tobacco: Never Substance Use Topics Alcohol use: No Alcohol/week: 0.0 standard drinks of alcohol Drug use: No Allergies: Allergies Allergen Reactions Doxercalciferol Other reaction(s): Hives, Hives, Other (See Comments), Severe N/V Penicillins Hives and Rash [place] Extract Nausea And Vomiting and Rash Other reaction(s): Vomiting, Vomiting Etodolac Rash Sevelamer Other reaction(s): GI Upset, Nausea, Unknown Sulfamethoxazole-Trimethoprim Rash Other reaction(s): GI Upset Tramadol Rash Other reaction(s): Intolerance, Nausea Sulfamethoxazole Other reaction(s): Rash Trimethoprim Other reaction(s): Rash Medications: Current Outpatient Medications: atorvastatin (Lipitor) 40 MG tablet, Take 40 mg by mouth Nightly. for cholesterol, Disp: , Rfl: B Bhfzldj-M-Dnkwn Acid (RANI-YAHIR PO), Take 1 tablet by mouth in the morning., Disp: , Rfl: calcium carbonate (Tums Ultra) 1000 MG chewable tablet, Chew 1,000 mg in the morning., Disp: , Rfl: cholecalciferol (Vitamin D-3) 50 MCG (2000 UT) capsule, Take by mouth daily., Disp: , Rfl: fluticasone (Flonase) 50 MCG/ACT nasal spray, 1 (ONE) SPRAY(S) TWICE DAILY EACH NOSTRIL, Disp: , Rfl: ipratropium (Atrovent) 0.03 % nasal spray, 1-2 SPRAY(S) EACH NOSTRIL BEFORE BEDTIME AND NEEDEDE EVERY 6 HOURS FOR COUGH, MUCOUS, RUNNY NOSE, Disp: , Rfl: levothyroxine (Synthroid, Levoxyl) 25 MCG tablet, Take 25 mcg by mouth daily., Disp: , Rfl: metoprolol tartrate (Lopressor) 25 MG tablet, Take 25 mg by mouth daily., Disp: , Rfl: oxyCODONE-acetaminophen (Percocet) 5-325 MG tablet, Take 1 tablet by mouth every 6 hours as needed., Disp: , Rfl: sertraline (Zoloft) 50 MG tablet, Take 50 mg by mouth daily., Disp: , Rfl: sevelamer carbonate (Renvela) 800 MG tablet, Take 5 tablets by mouth 3 times daily., Disp: , Rfl: zolpidem (Ambien) 10 MG tablet, Take 10 mg by mouth Nightly as needed., Disp: , Rfl: Review of Systems: Review of Systems Constitutional: Negative. Negative for activity change, chills, diaphoresis, fatigue and fever. HENT: Negative. Negative for nosebleeds and trouble swallowing. Eyes: Negative. Negative for discharge and visual disturbance. Respiratory: Negative. Negative for apnea, cough, chest tightness, shortness of breath and wheezing. Cardiovascular: Negative. Negative for chest pain, palpitations and leg swelling. Gastrointestinal: Negative. Negative for abdominal distention, abdominal pain, blood in stool, diarrhea, nausea and vomiting. Endocrine: Negative. Negative for cold intolerance and heat intolerance. Genitourinary: Negative. Negative for hematuria. Musculoskeletal: Negative. Negative for gait problem and myalgias. Skin: Negative. Negative for color change and rash. Neurological: Positive for light-headedness. Negative for dizziness, seizures, syncope, facial asymmetry, speech difficulty, weakness, numbness and headaches. Hematological: Negative. Does not bruise/bleed easily. Psychiatric/Behavioral: Negative. Negative for dysphoric mood. Physical Examination: Vitals: Vitals: 06/20/23 0916 BP: 128/54 BP Location: Right arm Patient Position: Sitting BP Cuff Size: Large adult Pulse: 59 SpO2: 98% Weight: 186 lb 12.8 oz (84.7 kg) Body mass index is 33.62 kg/m . Physical Exam Vitals reviewed. Constitutional: Appearance: Normal appearance. HENT: Head: Normocephalic. Right Ear: External ear normal. Left Ear: External ear normal. Nose: Nose normal. Mouth/Throat: Mouth: Mucous membranes are moist. Eyes: Pupils: Pupils are equal, round, and reactive to light. Cardiovascular: Rate and Rhythm: Normal rate and regular rhythm. Heart sounds: Murmur heard. Pulmonary: Effort: No respiratory distress. Breath sounds: No wheezing. Musculoskeletal: General: Normal range of motion. Right lower leg: No edema. Left lower leg: No edema. Skin: General: Skin is warm and dry. Coloration: Skin is not jaundiced. Neurological: General: No focal deficit present. Mental Status: She is alert. Psychiatric: Mood and Affect: Mood normal. Behavior: Behavior normal. Thought Content: Thought content normal. Judgment: Judgment normal. Laboratory Tests: Lab Results Component Value Date WBC 7.8 11/22/2019 HGB 15.4 11/22/2019 MCV 86.2 11/22/2019 No results found for: GLUCOSE, CALCIUM, NA, K, CO2, CL, BUN, CREATININE @LASTCMP@ No results found for: CHLPL, CHOL No results found for: TRIG No results found for: HDL No results found for: LDLCALC Assessment and Plan: Ventricular tachycardia: Status post ICD implantation with subsequent generator change with a subcutaneous system. Rhythm has remained stable. Device interrogations normal. She unfortunately is unable to take beta-blockade given significant hypotension. We discussed that though this is not ideal, it has allowed her to be more functional. LV dysfunction: Ejection fraction last time around 40. Given hypotension she cannot take any of theguideline directed medical therapy. Certainly not ideal but again she feels much improved and prefers quality over quantity of life at this point. DVT: She maintains warfarin for an INR between 2 and 3. documented in this [facility]12-06-2023 Procedure [facility]11-02-2023 Telephone encounter Note* Telephone Encounter - Jaquelin Moyer RN - 05/12/2023 9:22 AM EDT Patient came to office today. Thought both JKS and Clinic appts were today. Will check device. [facility] be [id number] Miscellaneous Notes* Telephone Encounter - Jaquelin Moyer RN - 05/12/2023 9:22 AM EDT Patient came to office today. Thought both JKS and Clinic appts were today. Will check device. JKS appt to be rescheduled * Telephone Encounter - Aym Terry RN - 05/11/2023 3:29 PM EDT Barbra pt missed her in OV device check appt today w/ JKS appt to follow. She is due for software update on her device. Doris follows her so I tentatively arranged a remote for 07/19/23. Can you please call or send pt a letter advising of missed appt and need to contact office to reschedule both appts. Device check can be with which ever device nurse is available. Also noted, her transmitter box is not connected per website. Maybe send certified letter? Ty documented in this [facility]11-01-2023 Telephone encounter Note* Telephone Encounter - Amy Terry RN - 05/11/2023 3:29 PM EDT Barbra pt missed her in OV device check appt today w/ JKS appt to follow. She is due for software update on her device. Doris follows her so I tentatively arranged a remote for 07/19/23. Can you please call or send pt a letter advising of missed appt and need to contact office to reschedule both appts. Device check can be with which ever device nurse is available. Also noted, her transmitter box is not connected per website. Maybe send certified letter? Ty Keyshawn [id number] NoteHNO ID: [id number] Author: Christiano Huntley MD Service: ? Author Type: Physician Type: Progress Notes Filed: 04/28/2023 11:20 AM Note Text: HISTORY OF PRESENT ILLNESS: Spencer Redding is a 57 year old female with complaints of cystic kidneys status post left radical nephrectomy. She is recovered well from her procedure 02/28/2023: RAL Left Radical Nephrectomy: PCKD 02/22/2022: RAL Right Radical Nephrectomy: PCKD A. Kidney, right, radical nephrectomy: - Benign kidney with histologic changes of end stage renal disease, innumerable cysts, severe nephrocalcinosis and calcific arteriosclerosis, clinically polycystic kidney disease. - Unremarkable margins of the resection. 01/28/2022: Cystoscopy: Sunset appearing bladder, blood emanating from the right ureteral orifice 02/15/2020: Cystoscopy and pyelograms: (-). 2017: Coronary stents x 5 09/02/2015: Cystoscopy and pyelograms: Negative 06/27/2015: Right upper extremity fistula 07/11/2007: Left upper extremity fistula 2004: DVT without PE No results found for this basename: uglucpoc,ubilipoc,uketonpoc,usgpoc,uhbpoc,uphpoc,upropoc,uuropoc,unitpoc,uw bcpoc,ucolpoc,uclarpoc @KATTY@ ALLERGIES ALLERGIES Allergen Reactions Penicillins Hives, Rash [place] Vomiting, Rash Etodolac Rash Sevelamer GI Upset Sulfamethoxazole-Tr* GI Upset, Rash Tramadol Intolerance, Rash MEDICATIONS: fludrocortisone (FLORINEF) 0.1 mg tablet Take 0.1 mg by mouth once daily. RANI-YAHIR 0.8 mg tab Take 1 tablet by mouth every afternoon. calcium carbonate (TUMS ULTRA) 400 mg (1,000 mg) chew Take 1,000 mg by mouth once daily. gabapentin (NEURONTIN) 600 mg tablet Take 600 mg by mouth daily at bedtime. (Patient not taking: Reported on 02/18/2023) sevelamer carbonate (RENVELA) 800 mg tablet Take 5 tablets by mouth three times daily with meals. Cholecalciferol, Vitamin D3, 50 mcg (2,000 unit) cap Take by mouth once daily. zolpidem (AMBIEN) 5 mg tablet Take 10 mg by mouth at bedtime as needed. nitroglycerin sublingual (NITROQUICK) 0.4 mg SL tablet DISSOLVE 1 TAB UNDER THE TONGUE EVERY 5 MINUTES NEEDED FOR CHEST PAIN atorvastatin (LIPITOR) 40 mg tablet TAKE 1 TABLET BY MOUTH EVERY DAY AT BEDTIME FOR CHOLESTEROL metoprolol tartrate, short acting, (LOPRESSOR) 25 mg tablet Take 25 mg by mouth once daily. (Patient not taking: Reported on 02/18/2023) warfarin (COUMADIN) 7.5 mg tablet Take 7 mg by mouth once daily. sertraline (ZOLOFT) 50 mg tablet Take 50 mg by mouth once daily. HISTORIES PAST MEDICAL HISTORY Diagnosis Date AICD (automatic cardioverter/defibrillator) present 06/2016 Anxiety Arthritis Blood clot in vein lower left leg CAD (coronary artery disease) s/p cardiac stent x6 2015; last cardiology visit 12/25/[address] Garvin; pt taking Plavix Chronic kidney disease Delayed emergence from general anesthesia Depression DVT (deep vein thrombosis) in 2006 left below the knee ESRD (end stage renal disease) on dialysis ([facility]) MWF/[facility] [place] [phone] History of coronary artery stent placement 04/22/2016 Hx of cardiovascular stress test 2017 negative for ischemia, EF 70% Hx of echocardiogram 02/2017 EF 60% moderate LVH, no valvular abnormalities- received from [facility]- on hard chart Hx of sudden cardiac successfully resuscitated Hyperlipidemia Hypertension Osteoarthritis of multiple joints Polycystic kidney disease Thyroid disease Ventricular tachycardia (HCC) S/P defibrillator 2016 PAST SURGICAL HISTORY Procedure Laterality Date AV FISTULA OR GRAFT VENOUS Left 2016 AV FISTULA REPAIR HX Right 06/24/2015 CYST/MOLE REMOVAL benign- on neck CYSTOSCOPY 02/2020 RETROPYELOGRAM FISTULA Left 08/2016 dialysis FISTULA Right 2014 dialysis LEFT HEART CATH,PERCUTANEOUS 04/22/2016 PTCA stent RCA/PDA, LAD PAST SURGICAL HISTORY OF 06/2016 Defibrillator placed 2015; generator change 11/2019 PAST SURGICAL HISTORY OF 02/22/2022 obotic Assisted Laparoscopic Right Radical Nephrectomy, robotic renal cyst decortication Dr. Huntley PICC LINE PRQ CARDIAC STENT W/ANGIO 1 VSL 2015 6 cardic stents THYROIDECTOMY TOTAL/COMPLETE FAMILY HISTORY Problem Relation Age of Onset Diabetes Mother Cancer Mother Heart Father Kidney Disease Father other (HTN) Father Diabetes Sister Heart Brother Kidney Disease Brother Diabetes Maternal Grandmother Social History Tobacco Use Smoking status: Never Smokeless tobacco: Never Vaping Use Vaping Use: Never used Substance Use Topics Alcohol use: Not Currently Drug use: Never REVIEW OF SYSTEMS: Const: Well appearing, in no acute distress, well-hydrated, well-nourished, alert, awake, oriented to time, place and person. : See HPI The remainder of the ROS was reviewed and is negative. PHYSICAL EXAMINATION: VITAL SIGNS: There were no vitals taken for this visit. General appearance: We (more content not included)...[facility] 04-28-2023 History of Present illness Narrative* Christiano Huntley MD - 04/28/2023 11:13 AM EDT HISTORY OF PRESENT ILLNESS: Spencer Redding is a 57 year old female with complaints of cystic kidneys status post left radical nephrectomy. She is recovered well from her procedure 02/28/2023: RAL Left Radical Nephrectomy: PCKD 02/22/2022: RAL Right Radical Nephrectomy: PCKD A. Kidney, right, radical nephrectomy: - Benign kidney with histologic changes of end stage renal disease, innumerable cysts, severe nephrocalcinosis and calcific arteriosclerosis, clinically polycystic kidney disease. - Unremarkable margins of the resection. 01/28/2022: Cystoscopy: Sunset appearing bladder, blood emanating from the right ureteral orifice 02/15/2020: Cystoscopy and pyelograms: (-). 2017: Coronary stents x 5 09/02/2015: Cystoscopy and pyelograms: Negative 06/27/2015: Right upper extremity fistula 07/11/2007: Left upper extremity fistula 2004: DVT without PE No results found for this basename: uglucpoc,ubilipoc,uketonpoc,usgpoc,uhbpoc,uphpoc,upropoc,uuropoc ,unitpoc,bcpoc,olpoc,[facility] @KATTY@ ALLERGIES ALLERGIES Allergen Reactions Penicillins Hives, Rash [place] Vomiting, Rash Etodolac Rash Sevelamer GI Upset Sulfamethoxazole-Tr* GI Upset, Rash Tramadol Intolerance, Rash MEDICATIONS: fludrocortisone (FLORINEF) 0.1 mg tablet Take 0.1 mg by mouth once daily. RANI-YAHIR 0.8 mg tab Take 1 tablet by mouth every afternoon. calcium carbonate (TUMS ULTRA) 400 mg (1,000 mg) chew Take 1,000 mg by mouth once daily. gabapentin (NEURONTIN) 600 mg tablet Take 600 mg by mouth daily at bedtime. (Patient not taking: Reported on 02/18/2023) sevelamer carbonate (RENVELA) 800 mg tablet Take 5 tablets by mouth three times daily with meals. Cholecalciferol, Vitamin D3, 50 mcg (2,000 unit) cap Take by mouth once daily. zolpidem (AMBIEN) 5 mg tablet Take 10 mg by mouth at bedtime as needed. nitroglycerin sublingual (NITROQUICK) 0.4 mg SL tablet DISSOLVE 1 TAB UNDER THE TONGUE EVERY 5 MINUTES NEEDED FOR CHEST PAIN atorvastatin (LIPITOR) 40 mg tablet TAKE 1 TABLET BY MOUTH EVERY DAY AT BEDTIME FOR CHOLESTEROL metoprolol tartrate, short acting, (LOPRESSOR) 25 mg tablet Take 25 mg by mouth once daily. (Patient not taking: Reported on 02/18/2023) warfarin (COUMADIN) 7.5 mg tablet Take 7 mg by mouth once daily. sertraline (ZOLOFT) 50 mg tablet Take 50 mg by mouth once daily. HISTORIES PAST MEDICAL HISTORY Diagnosis Date AICD (automatic cardioverter/defibrillator) present 06/2016 Anxiety Arthritis Blood clot in vein lower left leg CAD (coronary artery disease) s/p cardiac stent x6 2015; last cardiology visit 12/25/[address] Garvin; pt taking Plavix Chronic kidney disease Delayed emergence from general anesthesia Depression DVT (deep vein thrombosis) in 2006 left below the knee ESRD (end stage renal disease) on dialysis ([facility]) MWF/[facility] [place] [phone] History of coronary artery stent placement 04/22/2016 Hx of cardiovascular stress test 2017 negative for ischemia, EF 70% Hx of echocardiogram 02/2017 EF 60% moderate LVH, no valvular abnormalities- received from [facility]- on hard chart Hx of sudden cardiac successfully resuscitated Hyperlipidemia Hypertension Osteoarthritis of multiple joints Polycystic kidney disease Thyroid disease Ventricular tachycardia (HCC) S/P defibrillator 2015 PAST SURGICAL HISTORY Procedure Laterality Date AV FISTULA OR GRAFT VENOUS Left 2015 AV FISTULA REPAIR HX Right 06/24/2015 CYST/MOLE REMOVAL benign- on neck CYSTOSCOPY 02/2020 RETROPYELOGRAM FISTULA Left 08/2016 dialysis FISTULA Right 2014 dialysis LEFT HEART CATH,PERCUTANEOUS 04/22/2016 PTCA stent RCA/PDA, LAD PAST SURGICAL HISTORY OF 06/2016 Defibrillator placed 2015; generator change 11/2019 PAST SURGICAL HISTORY OF 02/22/2022 obotic Assisted Laparoscopic Right Radical Nephrectomy, robotic renal cyst decortication Dr. Huntley PICC LINE PRQ CARDIAC STENT W/ANGIO 1 VSL 2015 6 cardic stents THYROIDECTOMY TOTAL/COMPLETE FAMILY HISTORY Problem Relation Age of Onset Diabetes Mother Cancer Mother Heart Father Kidney Disease Father other (HTN) Father Diabetes Sister Heart Brother Kidney Disease Brother Diabetes Maternal Grandmother Social History Tobacco Use Smoking status: Never Smokeless tobacco: Never Vaping Use Vaping Use: Never used Substance Use Topics Alcohol use: Not Currently Drug use: Never REVIEW OF SYSTEMS: Const: Well appearing, in no acute distress, well-hydrated, well-nourished, alert, awake, oriented to time, place and person. : See HPI The remainder of the ROS was reviewed and is negative. PHYSICAL EXAMINATION: VITAL SIGNS: There were no vitals taken for this visit. General appearance: Well appearing, in no acute distress, well-hydrated, well- nourished, alert, awake, oriented to time, place and person. Abdomen: Normal abdominal exam, soft, nontender, incisions have all healed without evidence of hernia nor paresthesias I personally reviewed the patient's radiology images and dictation and I agree with the radiologist's opinion. I personally reviewed the patient's laboratory studies. 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 Patient will call if worsening symptoms, no improvement, or any other concerns. Plan discussed. Christiano Huntley MD Electronically Signed: Christiano Huntley MD April 28, 2023 11:17 AM This note was partially created using voice recognition software and is inherently subject to errors including those of syntax and sound-alike substitutions which may escape proofreading. In such instances, original meaning may be extrapolated by contextual derivation. [facility] Discharge summary Author Salas Basilio [facility] March 16, 2023 6:09pm Note Date/Time March 16, 2023 2:37pm [facility] Medical Records Department [address] [place] [address] Emergency Department Summary 03/16/23 MR#: [id number] Acct: [id number] Name: SPENCER REDDING Rep #:[id number] : 1965 57 From: Salas Basilio MD PCP: Dr. Trevor Vieyra MD Status:REG ER Location: ED HPI History of Present Illness Chief Complaint: Palpitations Informant: patient Narrative Narrative: Presents with dyspnea palpitations and chest heaviness. This patient had the above symptoms that really kicked in after dialysis today. This patient has a history of polycystic kidney disease. She had her right kidney taken out about a year ago due to recurrent bleeding. 2 weeks ago she had her left kidney taken out at [facility] due to chronic discomfort in the area. She was already on dialysis. She was due to have dialysis on Tuesday. But her access on the left was clotted. They could not get this cleared out till yesterday so sure he had dialysis this morning between 8 AM and 1130. She states she has not been feeling well for the last few days. But not chest pain and dyspnea. They placed her on oxygen at dialysis but she does not recall why. They just stated they felt they should. There is no report of a low oxygen level or any other issues. She states they are still trying to sort out her dryweight because of the recent surgery. But she went in with what sounds like 3.2kg of weight up and they were able to get 2.6 kg off today. Currently she has no symptoms and feels back to baseline except a little bit tired after dialysis. However, her daughter picked her up after dialysis. She was going home. She stated she felt like her heart was pounding. She could feel it pound. She had some heaviness in her chest. Triage note says 10 out of 10 pain. She denies any pain to me she states it did not hurt at all but it was just pressure. She also felt short of breath with it it is now gone. She states the nitroglycerin that was given her by EMS did not seem to do anything at all. She does have a history of heart disease and has 6 prior stents. I also reviewed her medical record where she had a relatively normal stress test about a year ago. She has been eating and drinking. No fevers. She is healing well from her surgery. With this episode she also stated that she just felt tingly all over and generalized weakness. This was not focal or limited to one side. [facility] Medical History Atherosclerosis of coronary artery of [place] heart without angina pectoris Benign essential hypertension Congenital polycystic kidney disease ESRD (end stage renal disease) on dialysis History of allergic rhinitis History of DVT (deep vein thrombosis) History of recurrent miscarriages, not currently History of torsades de pointes Hyperlipidemia Hypertriglyceridemia Ischemic cardiomyopathy Nonsustained ventricular tachycardia Obesity Polycystic kidney disease Sudden cardiac Syncope and collapse Ventricular fibrillation Home Medications sertraline 50 mg tablet 50 mg PO QHS depression 01/19/17 [History Last Taken 03/15/23] warfarin 1 mg tablet See Rx Instructions PO QHS blood thinner 01/19/17 [History Last Taken 03/15/23] zolpidem 5 mg tablet 10 mg PO QHS PRN PRN Insomnia 01/19/17 [History Last Taken 12/10/19] cholecalciferol (vitamin D3) 25 mcg (1,000 unit) tablet 1,000 unit PO QDAY 10/24/17 [History Last Taken 03/15/23] vitamin B complex-vitamin C-folic acid 0.8 mg tablet (Nephro-Yahir) 1 tab PO DAILY 03/13/19 [History Last Taken 03/15/23] sevelamer carbonate 800 mg tablet 800 mg PO TID 30 days #90 tabs 06/11/21 [History Last Taken 03/15/23] belladonna alkaloids-opium 16.2 mg-30 mg rectal suppository 1 supp ND TID PRN pain 7 days #12 ea 01/30/22 [Rx Last Taken 03/15/23] atorvastatin 40 mg tablet 40 mg PO QHS cholesterol #90 tabs 03/12/22 [Rx Last Taken 03/15/23] calcium carbonate 200 mg calcium (500 mg) chewable tablet (Tums) 400 mg PO BID 03/30/22 [History Last Taken 03/15/23] nitroglycerin 0.4 mg sublingual tablet 0.4 mg sublingual Q5M PRN Chest Pain #25 tabs 10/14/22 [Rx Last Taken 03/15/23] fludrocortisone 0.1 mg tablet 0.1 mg PO DAILY #30 tabs 01/20/23 [Rx Last Taken 03/15/23] Allergy/AdvReac Type Severity Reaction Status Date / Time amoxicillin Allergy Rash Verified 03/16/23 14:15 doxercalciferol Allergy Hives Verified 03/16/23 14:15 [From Hectorol] etodolac Allergy Rash Verified 03/16/23 14:15 Penicillins [PCN] Allergy Rash Verified 03/16/23 14:15 sulfamethoxazole Allergy Rash Verified 03/16/23 14:15 [From Bactrim] tramadol Allergy Rash Verified 03/16/23 14:15 trimethoprim [From Bactrim] Allergy Rash Verified 03/16/23 14:15 strawberry AdvReac Vomiting Verified 03/16/23 14:15 Family History Father Hypertension Kidney disease Mother Diabetes Surgical History fistulogram History of coronary artery stent placement (04/22/16) History of implantable cardiac defibrillator (ICD) (11/22/19) History of thyroid surgery Social History Smoking Status: Never smoker alcohol intake: never substance use type: does not use diet: other caffeine: No what type of physical activity do you participate in: none seatbelt use: always do you feel safe at home: Yes ROS ROS ED ROS Narrative A complete review of systems was performed and is negative except as documented in the history of present illness. Some specific details below. Constitutional: No recent fevers or chills. No malaise but she does feel a bit tired today. EYE: No discharge, visual complaints, or pain. ENT: No difficulty swallowing. No swelling. No pain. No reflux symptoms. CV: See history of present illness. Respiratory: See history of present illness. He also tells me that over the last day or 2 she has had a mild dry cough. No sputum production. She thinks she had this when she had congestive heart failure once. GI: No abdominal pain. No nausea vomiting diarrhea. No blood in stool. : No frequency dysuria or hematuria. Musculoskeletal: No recent trauma. No pains. She did have some swelling of her feet and hands when she missed dialysis for 5 days but she states after dialysisthat is already better. Skin: No rash. Nondiaphoretic. Neuro: No or lateralizing weakness or numbness. EXAM Physical Exam Narrative Exam Narrative: CONSTITUTIONAL: Patient is nontoxic in appearance. The patient looks comfortable. Work of breathing looks normal. Done a normal uncomfortable conversation. HEENT: No notable trauma. Mucous membranes a little bit dry. No sinus tenderness. No indication of pain with swallowing. EYES: No conjunctival injection. No proptosis. NECK:No JVD. No stridor. CARDIOVASCULAR: Regular rate. Regular rhythm. No notable murmur. No JVD. Full tones. At first I thought I heard a slight systolic murmur near the right uppersternal border could not hear it consistently. RESPIRATORY: No respiratory distress. Breathing is unlabored. No wheezes. No rhonchi. Minimal crackles near the base. But these improved with several deep breaths. No pain with a deep breath. Her oxygen saturation is normal at 97% onthe monitor on room air while I am in the room. She does have an occasional drycough with taking deep breaths. GASTROINTESTINAL: Not distended. Bowel sounds are normal. Incision in the left lower quadrant as well as 3 port sites all look like they are healing well. They are not draining. No herniation. Overall her abdomen is relatively benignconsidering she had surgery just 2 weeks ago. GENITOURINARY: No tenderness over the bladder. No CVA tenderness. MUSCULOSKELETAL: Atraumatic. No peripheral edema at this time. No cord. No tenderness along the deep venous system. No asymmetry. No distended veins. NEUROLOGICAL: Patient is alert and appropriate. No focal deficit noted. SKIN: No noted rashes. No diaphoresis. Healing as above. PSYCHIATRIC: Patient is calm. Mood is appropriate. Const Vital Signs: 03/16/23 14:07 03/16/23 14:11 03/16/23 15:17 Temperature 98.2 F Temperature Source Oral Pulse Rate 67 Respiratory Rate 14 Respiratory Effort Normal Blood Pressure 158/70 H Blood Pressure Mean 99 Pulse Ox 94 Oxygen Delivery Method Room Air Room Air 03/16/23 16:56 03/16/23 17:50 Temperature Temperature Source Pulse Rate 64 62 Respiratory Rate 16 16 Respiratory Effort Blood Pressure 121/52 H 130/62 H Blood Pressure Mean 75 84 Pulse Ox 98 96 Oxygen Delivery Method Room Air Room Air MDM MDM MDM Narrative Medical decision making narrative: CBC shows improved hemoglobin. This may be due to removal of fluid at dialysis. White count is normal. Platelets are normal. Patient's INR is therapeutic at 2.6. Patient's electrolytes show overall relatively normal electrolytes but she has elevated creatinine consistent with her chronic kidney disease and dialysis. Patient's magnesium is normal. Patient's troponin is normal. Patient's BNP is elevated but less than other measures. It is currently 456. My independent interpretation of the patient's single AP chest x-ray shows presence of her ICD and a stent in the left arm area. There may be small amountof fluid on the left. Reading also notes possible left basilar infiltrate or atelectasis. John is unchanged at 27. Patient's been feeling well. We let her rest. We walked her then. She stated 96% sat and felt well. She would like to go home. She thinks a lot of this is due to the fluid shifts and problems that she has had getting dialysis for 5 days. They are getting get her in again tomorrow to slowly get her down to whatthey feels her dry weight. Although the x-ray is showing possible atelectasis versus infiltrate, she has no fever sputum production or high white count. At this point I do not think this is likely infectious but we discussed returning if she develops sputum fever shortness of breath or other symptoms. Lab Data Attestation: I reviewed the patient's lab results. Labs: Laboratory Results - last 24 hr 03/16/23 03/16/23 14:45 17:01 WBC 6.8 RBC 4.59 Hgb 11.8 L Hct 38.5 MCV 83.9 MCH 25.7 L MCHC 30.6 L RDW Std Deviation 53.7 H RDW Coeff of Tana 17.8 H Plt Count 300 MPV 9.0 Immature Gran % (Auto) 0.300 Neut % (Auto) 73.2 H Lymph % (Auto) 10.8 L [place] % (Auto) 4.6 Eos % (Auto) 10.2 H Baso % (Auto) 0.9 Absolute Neuts (auto) 5.0 Absolute Lymphs (auto) 0.73 L Nucleated RBC % 0 PT 28.3 H INR 2.6 Sodium 135 L Potassium 4.4 Chloride 98 Carbon Dioxide 30.0 Anion Gap 7 BUN 26 H Creatinine 7.75 H* Estim Creat Clear Calc 6.26 Est GFR (MDRD) Af Amer 7 L Est GFR (MDRD) Non-Af 6 L BUN/Creatinine Ratio 3.4 L Glucose 108 H Calcium 9.1 Magnesium 2.4 Troponin I High Sens 27 27 B-Natriuretic Peptide 456.7 H Radiography Diagnostic Testing: Clinical Impression(s) from Imaging Studies Chest X-Ray 03/16/23 15:05 IMPRESSION: Left basilar infiltrate and/or atelectasis with small left pleural effusion. Electronically Signed: West Best MD at 15:24 EDT , EKG Initial EKG: Comments: Independent interpretation of this patient's EKG shows normal sinus rhythm with a rate of 69. No ectopy. No acute ST elevation or depression. ND interval, QRS duration are normal. QTc is a little bit toward the long end at 484 ms. Discharge Plan Triage Chief Complaint: Palpitations ED Provider: Salas Basilio Dx/Rx/DC Orders Clinical Impression: Heart palpitations, Chest pressure, ESRD (end stage renal disease) on dialysis Instructions: ED Palpitations Prescriptions: No Action cholecalciferol (vitamin D3) 1,000 unit tablet 1,000 unit PO QDAY sevelamer carbonate 800 mg tablet 800 mg PO TID 30 Days Qty: 90 Patient Comments: 4 tabs tid Nephro-Yahir 0.8 mg tablet 1 tab PO DAILY calcium carbonate [Tums] 200 mg calcium (500 mg) tablet,chewable 400 mg PO BID fludrocortisone 0.1 mg tablet 0.1 mg PO DAILY Qty: 30 6RF zolpidem 5 MG tablet 10 mg PO QHS PRN PRN (Reason: Insomnia) warfarin 1 MG tablet See Rx Instructions PO QHS Rx Instructions: 7 mg orally at bedtime; sertraline 50 MG tablet 50 mg PO QHS belladonna alkaloids-opium 16.2-30 mg suppository 1 supp ND TID PRN (Reason: pain) 7 Days Qty: 12 0RF atorvastatin 40 mg tablet 40 mg PO QHS Qty: 90 3RF nitroglycerin 0.4 mg tablet, sublingual 0.4 mg SUBLINGUAL Q5M PRN (Reason: Chest Pain) Qty: 25 2RF Primary Care Provider: Trevor Vieyra Referrals: Trevor Vieyra MD [Primary Care Provider] - 3-5 Days Disposition Disposition: Home, Self Care What to do if you have Problems For any increased pain, shortness of breath, bleeding, nausea or vomiting, chestpain, or any unexpected problems, contact your Primary Care Provider. Call [facility] ([phone]) or report to the closest Emergency Room. Call 911 if necessary. 03/16/231808 <Electronically signed by Salas Basilio MD> Cosigner Signature (if applicable): CC: Dr. Trevor Vieyra MD ~ Signed [facility] Work Phone: [phone] 151-282008-29-2023 Miscellaneous Notes* Telephone Encounter - Andrea Madden RN - 03/08/2023 3:35 PM EDT PATIENT INFORMATION Record ID: [id number] Patient Name: [facility]: [facility] [place]: [facility] [place] Attending: Christiano Huntley Center: Urology INSTRUCTIONS All Clear If patient has a CC Physician- transfer to Appointment Center at [phone] at end of script [facility]- [facility] to [facility] [phone] (CARE) If patient has a community physician, transfer to [facility]; Any other physician recommend patient follow-up with their physician at the end of script All Clear All Clear All Clear SURVEY INFORMATION Medical/Nurse Social Science Teacher: Andrea Madden 1. Your discharge instructions are important in guiding you through the recovery process. Is there anything I could help you clarify on your discharge instructions? (Standard Question) No 2. Do you have your follow up appointment related to your hospital stay scheduled within the next 30 days? (Standard Question) No, patient prefers to schedule in own time 3. Do you have all the necessary equipment and supplies at home? (Standard Question) Yes 4. Many patients have concerns about their medications once they are home. Do you have any questions about getting or taking your medications? (Standard Question) No 5. Do you have any new or different symptoms? (Standard Question) No [facility]23 NoteHNO ID: [id number] Author: Jaquelin Tinoco RN Service: Care Management Author Type: Registered Nurse Type: Care Mgt Progress Note Filed: 03/03/2023 11:31 AM Note Text: CARE MANAGEMENT DISCHARGE NOTE SERVICE DATE: March 03, 2023 SERVICE TIME: 9:29 AM Admission Date: 02/28/2023 LOS: 3 days Discharge Arrangement Discharge Arrangement: Home with Self Care Services Arranged Medical Services: Other: See Comment (none indicated) Caregiver Assessment Caregiver is ready, willing and able to meet the patient's needs as recommended by the inter-professional team: No Caregiver needed Transportation Arrangements Transportation Arrangements: Car Handoff Communication: Handoff to: Primary Care Physician Primary Care Physician Name/Phone: summary of care to PCPTrevor Additional Information: Met with patient in room. DC plan is home with self care and resumption of HD at [facility] tomorrow. Patient is in agreement with plans. Her daughter will be picking her up. Discussed again with patient that if she has issues finding transport for HD sessions that she can utilize her [facility] transport benefit and will need to schedule transport 48 hrs in advance. IMM Follow Up Copy Given: Yes Copy given to:: Patient Method: In Person SIGNATURE: Jaquelin Tinoco RN PATIENT NAME: Spencer Redding DATE: March 03, 2023 TIME: 11:28 AM CONTACT #: [phone]-24-[facility]23 NoteHNO ID: [id number] Author: Sandip Allen MD Service: Urology Author Type: Resident Type: Progress Notes Filed: 03/03/2023 8:15 AM Note Text: Attestation signed by Silverio Reaves MD at 03/03/2023 5:06 PM Urology Attending Attestation: Discussed with the resident and agree with resident's findings and plan as documented in the resident's note. Silverio Reaves MD [facility] [place] [facility] UROLOGY PROGRESS NOTE PATIENT NAME: Spencer Redding DATE OF : 1965 ADMISSION DATE: 02/28/2023 10:35 AM Subjective Doing well this morning Up and out of bed some yesterday Tolerating regular diet No nausea or vomiting Dialysis yesterday, feels better today Feels up to going home today Objective VS: BP 112/50 Pulse 67 Temp 36.5 ?C (97.7 ?F) (Oral) Resp 18 Ht 158.8 cm (5' 2.5) Wt 87.1 kg (192 lb 0.3 oz) SpO2 97% BMI 34.56 kg/m? I AND O - 24hr: Intake/Output Summary (Last 24 hours) at 03/03/2023 0813 Last data filed at 03/03/2023 0403 Gross per 24 hour Intake 760 ml Output 2300 ml Net -1540 ml Physical Exam: General: Neck: Resp: Abdomen: No acute distress Supple Normal effort Soft, tender on left, non-distended. Clean, dry, intact incision sites. : Deferred Labs and Imaging Studies LABS: BMP: Component Ref Range AND Units 5:48 AM (03/01/23) 1 d ago (02/28/23) 1 yr ago (02/25/22) 1 yr ago (02/24/22) 1 yr ago (02/23/22) 1 yr ago (02/23/22) 1 yr ago (02/22/22) Glucose 74 - 99 mg/dL 95 86 CM 98 CM 99 CM 93 CM 109 High CM 86 CM BUN 7 - 21 mg/dL 41 High 37 High 28 High 44 High 36 High 33 High 24 High Creatinine 0.58 - 0.96 mg/dL 12.22 High 11.91 High 7.86 High 11.69 High 10.15 High 9.47 High 7.88 High Sodium 136 - 144 mmol/L 139 138 134 Low 131 Low 137 138 140 Potassium 3.7 - 5.1 mmol/L 4.8 4.7 4.9 5.4 High 5.0 5.6 High 4.5 Chloride 97 - 105 mmol/L 98 96 Low 94 Low 91 Low 95 Low 96 Low 98 CO2 22 - 30 mmol/L 23 26 28 26 27 28 31 High Anion Gap 9 - 18 mmol/L 18 16 12 14 15 14 11 Calcium, Total 8.5 - 10.2 mg/dL 8.2 Low 9.4 8.1 Low 8.1 Low 8.2 Low 8.1 Low 9.0 Estimated Glomerular Filtration Rate >=60 mL/min/1.73m? 3 Low 3 Low CM 6 Low CM CBC: Component Ref Range AND Units 5:48 AM (03/01/23) 1 d ago (02/28/23) 1 yr ago (02/25/22) 1 yr ago (02/24/22) 1 yr ago (02/23/22) 1 yr ago (02/11/22) 1 yr ago (02/11/22) WBC 3.70 - 11.00 k/uL 6.21 6.35 5.30 6.38 6.01 RBC 3.90 - 5.20 m/uL 5.13 5.95 High 3.34 Low 3.66 Low 3.76 Low Hemoglobin 11.5 - 15.5 g/dL 13.6 15.3 8.5 Low 9.3 Low 9.4 Low 10.0 Low Hematocrit 36.0 - 46.0 % 44.6 50.7 High 28.0 Low 31.8 Low 33.2 Low 35.7 Low MCV 80.0 - 100.0 fL 86.9 85.2 83.8 86.9 88.3 MCH 26.0 - 34.0 pg 26.5 25.7 Low 25.4 Low 25.4 Low 25.0 Low MCHC 30.5 - 36.0 g/dL 30.5 30.2 Low 30.4 Low 29.2 Low 28.3 Low RDW-CV 11.5 - 15.0 % 19.9 High 19.9 High 17.0 High 17.5 High 17.1 High Platelet Count 150 - 400 k/uL 227 264 280 282 310 MPV 9.0 - 12.7 fL 9.8 9.3 9.5 9.5 9.8 Absolute nRBC <0.01 k/uL <0.01 <0.01 <0.01 <0.01 Urinalysis: Specific [place], Ur Date Value Ref Range Status 01/17/2020 1.002 1.005 - 1.030 Final Glucose, Urine Date Value Ref Range Status 01/17/2020 * Negative mg/dL Final Bilirubin, Urine Date Value Ref Range Status 01/17/2020 * Negative Final Ketones, Urine Date Value Ref Range Status 01/17/2020 * Negative mg/dL Final Protein, Urine Date Value Ref Range Status 01/17/2020 * Negative mg/dL Final Urobilinogen, Urine Date Value Ref Range Status 01/17/2020 * 0.2 - 1.0 EU/dL Final Nitrites Urine Date Value Ref Range Status 01/17/2020 * Negative Final WBC, Urine Date Value Ref Range Status 01/17/2020 2.0-5 0.0 - 5.0 /hpf Final Urine Culture: Urine Culture (no units) Date Value 01/17/2020 No growth <1,000 CFU/ml. RADIOLOGY: Pre-operative imaging reviewed Assessment/Plan ASSESSMENT: 57 year old female POD3 robotic left radical nephrectomy PLAN: -nephro c/s - dialysis last two days -fluids per nephro -Pain control -Diet: Regular -Incentive spirometry -continue to encourage ambulation -DVT ppx: SCDs, SQH -coumadin plan - restart 5 days post-op -potential discharge later today Ezequiel Allen MD Urology, PGY-5 March 03, 2023 8:[address] supervisor [facility] Note HNO ID: [id number] Author: Maurice Acevedo DO Service: Nephrology Author Type: Physician Type: Progress Notes Filed: 03/02/2023 1:31 PM Note Text: NEPHROLOGY PROGRESS NOTE PATIENT NAME: Spencer Redding ROOM: [place] [address] [address]* SERVICE DATE: 03/02/2023 SERVICE TIME: 1:25 PM LENGTH OF STAY: 2 day(s) REFERRING PHYSICIAN: Christiano Huntley MD PRIMARY CARE PHYSICIAN: Trevor Vieyra MD OUTPATIENT INVESTIGATOR INTERNAL REVENUE: Keyanna Castellanos MD Subjective/HPI Patient was seen and examined this afternoon following her dialysis session, and she admits to increased pain following treatment. She denies dyspnea, nausea, pruritus, or worsening peripheral edema. She admits to increased pain to her surgical site also with coughing. Family was present at the bedside on evaluation. She completed a 4 hour HD session today with 1.9 L UF. Objective Physical Exam Patient Vitals for the past 24 hrs: BP Temp Temp src Pulse Resp SpO2 Height Weight 03/01/23 1233 (!) 83/39 36.4 ?C (97.5 ?F) Axillary 60 15 95 % -- -- 03/01/23 0740 (!) 97/45 (!) 35.8 ?C (96.4 ?F) Axillary 62 14 96 % -- -- 03/01/23 0447 112/50 36.4 ?C (97.5 ?F) Axillary 61 14 97 % -- -- 03/01/23 0131 116/55 -- -- -- -- -- -- -- 02/28/23 2337 (!) 90/41 36.3 ?C (97.3 ?F) Oral 62 17 96 % -- -- 08/21/23 1917 -- -- -- -- -- -- 158.8 cm (5' 2.5) 87.1 kg (192 lb 0.3 oz) 02/28/231914 (!) 43 36.4 ?C (97.5 ?F) Oral 67 18 98 % -- -- 02/28/23 1851 -- -- -- 66 18 96 % -- -- 02/28/23 1850 104/53 -- -- 65 14 95 % -- -- 02/28/23 184 101/51 -- -- 64 12 93 % -- -- 02/28/23 184 97/52 -- -- 63 12 93 % -- -- 02/28/23 183 (!) 95/38 -- -- 63 15 94 % -- -- 02/28/231821 (!) 10148 -- -- 70 14 96 % -- -- 02/28/23 182 (!) 48 -- -- 67 16 96 % -- -- 02/28/23 181 (!) -- -- 68 13 94 % -- -- 02/28/23 181 (!) -- -- 69 19 93 % -- -- 02/28/23 1800 (!) -- -- 66 17 94 % -- -- 02/28/23 175 (!) 95/46 36.3 ?C (97.3 ?F) Temporal 65 14 94 % -- -- 02/28/23 174 (!) 94/44 -- -- 67 16 94 % -- -- 02/28/23 173 (!) 98/44 -- -- 66 16 94 % -- -- 02/28/23 173 -- -- -- 69 19 96 % -- -- 02/28/23 173 (!) 99/ -- -- 66 15 94 % -- -- 02/28/23 172 (!) / -- -- 68 18 94 % -- -- 02/28/23 172 (!) -- -- 68 19 94 % -- -- 02/28/23 171 (!) -- -- 72 14 93 % -- -- 02/28/23 1707 -- -- -- 70 17 93 % -- -- 02/28/23 1700 (!) -- -- 71 17 92 % -- -- 02/28/23 1659 (!) 116/42 36.2 ?C (97.2 ?F) Temporal 70 19 92 % -- -- I/Os: Intake/Output 02/28/23 0700 - 03/01/23 0659 03/01/23 0700 - 03/02/23 0659 03/02/23 0700 - 03/03/23 0659 Intake (ml) 1804.4 -- 400 Output (ml) -- -- 2300 Net (ml) 1804.4 -- -1900 Weight: Weight on Admission: 87.1 kg (192 lb 0.3 oz) Last Wt 02/28/23 : 87.1 kg (192 lb 0.3 oz) 02/18/23 : 85.7 kg (189 lb) 02/10/23 : 84.8 kg (187 lb) 04/08/22 : 79.9 kg (176 lb 1.6 oz) 02/24/22 : 90.5 kg (199 lb 8.3 oz) General: NAD, pleasant, cooperative Head: normocephalic, atraumatic Eyes: EOMI, sclera are anicteric ENT: hearing intact to spoken voice, mucus membranes are moist Cardiovascular: +S1 AND S2 sounds, regular rate and rhythm, there is no LE edema, with LUE AVG in place with +thrill AND bruit Pulmonary: lungs are grossly CTA anteriorly Gastrointestinal: abdomen is soft, non-tender, non-distended Neurological: awake, alert Skin: warm and dry, without rash to visible skin, with SCDs to B/L LEs Recent Labs: Recent Labs 03/02/23 0222 03/01/23 0548 02/28/23 1216 NA 133* 139 138 K 4.0 4.8 4.7 CHLOR 93* 98 96* CO2 26 23 26 BUN 34* 41* 37* CREAT 10.27* 12.22* 11.91* GLUC 99 95 86 ANION 14 18 16 CA 7.4* 8.2* 9.4 P -- 7.5* -- No results for input(s): LACT, AST, ALT, TBILI, DIRBILI in the last 168 hours. No results for input(s): PTH, IMVJHUPI79W, TSHREFL, URICACID, AMM, VANCORA in the last 2160 hours. Recent Labs 03/02/23 0222 03/01/23 0548 02/28/23 1216 WBC 7.49 6.21 6.35 HB 12.0 13.6 15.3 HCT 39.9 44.6 50.7* PLT 193 227 264 MCV 84.4 86.9 85.2 No results for input(s): FE, TRANSFERSAT, DAVID, FOLATE, B12 in the last 2160 hours. Recent Labs 02/28/23 1216 02/28/23 1215 INR 1.2 1.3* No results for input(s): HGBU, NITRITES, SPGR, UPH, LEUKEST, URBC, UWBC, BACTERIAUR, HYALC in the last 168 hours. No results for input(s): MACREATRAT, UPROT, PCRAT, EOSINSCRN, UCR, SSNA24, UUNUR, SSK24U in the last 2160 hours. No results for input(s): JESSICA, ANAEIA, CANCAFL, CANCA, PANCAF, PANCA, ANCSTF, RF, HBSAG, AHBSQ in the last 720 hours. No results for input(s): MPAIGG, MPAIGA, MPAIGM, INTP, MPASTF, UMPARSLT, UMPASTREV in the last 720 hours. No results for input(s): CCLUR24, CA24HR, UCITC, UNAT, UOXALC, UURICC in the last 720 hours. Current Inpatient Medications: Current Facility-Administered Medications Medication Dose Route Frequency (more content not included)...[facility]08-23-2023 NoteHNO ID: [id number] Author: Kimberlyn Reaves, RN Service: ? Author Type: Registered Nurse Type: Progress Notes Filed: 03/02/2023 12:34 PM Note Text: Hemodialysis completed, pt tolerated well. See flow sheet. Fluid balance -1900 [facility]08-23-2023 NoteHNO ID: [id number] Author: Sandip Allen MD Service: Urology Author Type: Resident Type: Progress Notes Filed: 03/02/2023 6:46 AM Note Text: Attestation signed by Sarkis Murguia MD at 03/02/2023 8:41 AM Attending Note I evaluated the patient and personally participated in the lam components. I agree with the resident's findings and plan as documented and have discussed the case and management of the patient's care with the resident. Sarkis Murguia MD Date: 03/02/23 Time: 8:41 AM UROLOGY PROGRESS NOTE PATIENT NAME: Spencer Redding DATE OF : 1965 ADMISSION DATE: 02/28/2023 10:35 AM Subjective Sleeping but arousable Doing ok, having a decent amount of pain No nausea or vomiting Tolerating diet Ambulating a small amount, pain limits Objective VS: BP (!) 121/41 Pulse 71 Temp 37 ?C (98.6 ?F) (Oral) Resp 14 Ht 158.8 cm (5' 2.5) Wt 87.1 kg (192 lb 0.3 oz) SpO2 93% BMI 34.56 kg/m? I AND O - 24hr: No intake or output data in the 24 hours ending 03/02/23 0643 Physical Exam: General: Neck: Resp: Abdomen: No acute distress Supple Normal effort Soft, tender on left, non-distended. Clean, dry, intact incision sites. : Deferred Labs and Imaging Studies LABS: BMP: Component Ref Range AND Units 5:48 AM (03/01/23) 1 d ago (02/28/23) 1 yr ago (02/25/22) 1 yr ago (02/24/22) 1 yr ago (02/23/22) 1 yr ago (02/23/22) 1 yr ago (02/22/22) Glucose 74 - 99 mg/dL 95 86 CM 98 CM 99 CM 93 CM 109 High CM 86 CM BUN 7 - 21 mg/dL 41 High 37 High 28 High 44 High 36 High 33 High 24 High Creatinine 0.58 - 0.96 mg/dL 12.22 High 11.91 High 7.86 High 11.69 High 10.15 High 9.47 High 7.88 High Sodium 136 - 144 mmol/L 139 138 134 Low 131 Low 137 138 140 Potassium 3.7 - 5.1 mmol/L 4.8 4.7 4.9 5.4 High 5.0 5.6 High 4.5 Chloride 97 - 105 mmol/L 98 96 Low 94 Low 91 Low 95 Low 96 Low 98 CO2 22 - 30 mmol/L 23 26 28 26 27 28 31 High Anion Gap 9 - 18 mmol/L 18 16 12 14 15 14 11 Calcium, Total 8.5 - 10.2 mg/dL 8.2 Low 9.4 8.1 Low 8.1 Low 8.2 Low 8.1 Low 9.0 Estimated Glomerular Filtration Rate >=60 mL/min/1.73m? 3 Low 3 Low CM 6 Low CM CBC: Component Ref Range AND Units 5:48 AM (03/01/23) 1 d ago (02/28/23) 1 yr ago (02/25/22) 1 yr ago (02/24/22) 1 yr ago (02/23/22) 1 yr ago (02/11/22) 1 yr ago (02/11/22) WBC 3.70 - 11.00 k/uL 6.21 6.35 5.30 6.38 6.01 RBC 3.90 - 5.20 m/uL 5.13 5.95 High 3.34 Low 3.66 Low 3.76 Low Hemoglobin 11.5 - 15.5 g/dL 13.6 15.3 8.5 Low 9.3 Low 9.4 Low 10.0 Low Hematocrit 36.0 - 46.0 % 44.6 50.7 High 28.0 Low 31.8 Low 33.2 Low 35.7 Low MCV 80.0 - 100.0 fL 86.9 85.2 83.8 86.9 88.3 MCH 26.0 - 34.0 pg 26.5 25.7 Low 25.4 Low 25.4 Low 25.0 Low MCHC 30.5 - 36.0 g/dL 30.5 30.2 Low 30.4 Low 29.2 Low 28.3 Low RDW-CV 11.5 - 15.0 % 19.9 High 19.9 High 17.0 High 17.5 High 17.1 High Platelet Count 150 - 400 k/uL 227 264 280 282 310 MPV 9.0 - 12.7 fL 9.8 9.3 9.5 9.5 9.8 Absolute nRBC <0.01 k/uL <0.01 <0.01 <0.01 <0.01 Urinalysis: Specific [place], Ur Date Value Ref Range Status 01/17/2020 1.002 1.005 - 1.030 Final Glucose, Urine Date Value Ref Range Status 01/17/2020 * Negative mg/dL Final Bilirubin, Urine Date Value Ref Range Status 01/17/2020 * Negative Final Ketones, Urine Date Value Ref Range Status 01/17/2020 * Negative mg/dL Final Protein, Urine Date Value Ref Range Status 01/17/2020 * Negative mg/dL Final Urobilinogen, Urine Date Value Ref Range Status 01/17/2020 * 0.2 - 1.0 EU/dL Final Nitrites Urine Date Value Ref Range Status 01/17/2020 * Negative Final WBC, Urine Date Value Ref Range Status 01/17/2020 2.0-5 0.0 - 5.0 /hpf Final Urine Culture: Urine Culture (no units) Date Value 01/17/2020 No growth <1,000 CFU/ml. RADIOLOGY: Pre-operative imaging reviewed Assessment/Plan ASSESSMENT: 57 year old female POD2 robotic left radical nephrectomy PLAN: -nephro consulted - dialysis again today to establish MWF routine -fluids per nephro -Pain control with tylenol/hydromorphone/oxycodone as ordered -Diet: Regular -Incentive spirometry -continue to encourage ambulation -DVT ppx: SCDs, SQH -coumadin plan TBD -potential discharge later today after dialysis Ezequiel Allen MD Urology, PGY-5 March 02, 2023 6:[address] supervisor [facility] Note HNO ID: [id number] Author: Jaquelin Tinoco RN Service: Care Management Author Type: Registered Nurse Type: Care Mgt Initial Assessment Filed: 03/01/2023 3:46 PM Note Text: CARE MANAGEMENT: ASSESSMENT AND DISCHARGE PLAN SERVICE DATE: March 01, 2023 SERVICE TIME: 3:18 PM PCP: Trevor Vieyra MD Primary Contact: Extended Emergency Contact Information Primary Emergency Contact: Jaquelin Redding Mobile Relation: Daughter Admission Status: Inpatient Insurance Provider: ANA [facility] MEDICARE Discharge Planning requested by: Per Department Practice Potential Transition Plans Home Advance Directives Current Advance Directive: Health Care Power of Produce Service Team Member In Chart: Yes Up To Date and Valid: Yes Current Living Arrangements and Support Lives with: Children Type of Residence: Private Residence (Apartment or Condo) Support: Family members How do you manage to accomplish the following: Independent: Ambulation;Bathe/Shower;Dress;Meals/Meal Prep;Going to the bathroom;Medication Management;Transportation to appointments/community Current Services/Equipment Current Post-Acute Service(s): DME, Dialysis Current DME Type: Cane Current Post-Acute Service(s) Provider: [facility] Discharge Planning Patient Goal(s): Be able to go home, General wellness [place] of Choice Explained: [place] of Choice Given: No Reason Not Given: No placements necessary Are you interested in bedside delivery of your medications? No Discharge Planning Participant(s): Patient Patient/Family Comments: Caregiver Assessment: Caregiver is ready, willing and able to meet the patient's needs as recommended by the inter-professional team: No Caregiver needed Transport at Discharge: Transportation Arrangements: To Be Determined Needs Prior to Discharge: Needs Prior to Discharge: To Be Determined Post-Acute Discharge Plan: Chart reviewed and met with patient. Patient is from home with her daughter. 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 Patient is active with Yes[facility] Crain for HD on MWF schedule. DC plan is home, patient is unsure if she will have transport. Her daughter works 2nd shift so would prefer AM discharge. Did discuss with her that transport home could be arranged through her insurance if needed. No skilled needs indicated at this time. SIGNATURE: Jaquelin Tinoco RN PATIENT NAME: Spencer Redding DATE: March 01, 2023 TIME: 3:40 PM CONTACT #: [phone]23 Note HNO ID: [id number] Author: Gabrielle Sotomayor RN Service: Dialysis Author Type: Registered Nurse Type: Progress Notes Filed: 03/01/2023 12:45 PM Note Text: Tolerated 3 hr tx well, net UF 2000 ml. See scanned treatment sheet for details.[facility]08[facility]-2023 NoteHNO ID: [id number] Author: Maurice Acevedo DO Service: Nephrology Author Type: Physician Type: Plan of Care Filed: 03/01/2023 7:48 AM Note Text: Brief nephrology note Patient's primary coupon collection clerk Dr. Castellanos provided notice that patient is currently hospitalized - [facility] will assume nephrology care of this patient. We will continue to follow along with you. Please text/call/page with any questions or concerns. Maurice Acevedo DO Nephrology [facility] ([facility]) Pager: [phone] Office Office Electronically Signed on 03/01/2023 at 7:47 AMMainegeneral [facility] 03-01-2023 NoteHNO ID: [id number] Author: Christiano Huntley MD Service: Urology Author Type: Physician Type: Progress Notes Filed: 03/01/2023 11:32 AM Note Text: UROLOGY PROGRESS NOTE PATIENT NAME: Spencer Redding DATE OF : 1965 ADMISSION DATE: 02/28/2023 10:35 AM Subjective Patient declined maintenance IV LR overnight. Patient is in 5/10 pain and reports no fevers/chills or nausea/vomiting. Patient has no concerns at this time. Objective VS: BP 112/50 Pulse 61 Temp 36.4 ?C (97.5 ?F) (Axillary) Resp 14 Ht 158.8 cm (5' 2.5) Wt 87.1 kg (192 lb 0.3 oz) SpO2 97% BMI 34.56 kg/m? I AND O - 24hr: Intake/Output Summary (Last 24 hours) at 03/01/2023 0526 Last data filed at 02/28/2023 1838 Gross per 24 hour Intake 1804.38 ml Output -- Net 1804.38 ml Physical Exam: General: Neck: Resp: Abdomen: No acute distress Supple Normal effort Soft, tender on left, non-distended. Clean, dry, intact incision sites. : Deferred Labs and Imaging Studies LABS: BMP: Component Ref Range AND Units 5:48 AM (03/01/23) 1 d ago (02/28/23) 1 yr ago (02/25/22) 1 yr ago (02/24/22) 1 yr ago (02/23/22) 1 yr ago (02/23/22) 1 yr ago (02/22/22) Glucose 74 - 99 mg/dL 95 86 CM 98 CM 99 CM 93 CM 109 High CM 86 CM BUN 7 - 21 mg/dL 41 High 37 High 28 High 44 High 36 High 33 High 24 High Creatinine 0.58 - 0.96 mg/dL 12.22 High 11.91 High 7.86 High 11.69 High 10.15 High 9.47 High 7.88 High Sodium 136 - 144 mmol/L 139 138 134 Low 131 Low 137 138 140 Potassium 3.7 - 5.1 mmol/L 4.8 4.7 4.9 5.4 High 5.0 5.6 High 4.5 Chloride 97 - 105 mmol/L 98 96 Low 94 Low 91 Low 95 Low 96 Low 98 CO2 22 - 30 mmol/L 23 26 28 26 27 28 31 High Anion Gap 9 - 18 mmol/L 18 16 12 14 15 14 11 Calcium, Total 8.5 - 10.2 mg/dL 8.2 Low 9.4 8.1 Low 8.1 Low 8.2 Low 8.1 Low 9.0 Estimated Glomerular Filtration Rate >=60 mL/min/1.73m? 3 Low 3 Low CM 6 Low CM CBC: Component Ref Range AND Units 5:48 AM (03/01/23) 1 d ago (02/28/23) 1 yr ago (02/25/22) 1 yr ago (02/24/22) 1 yr ago (02/23/22) 1 yr ago (02/11/22) 1 yr ago (02/11/22) WBC 3.70 - 11.00 k/uL 6.21 6.35 5.30 6.38 6.01 RBC 3.90 - 5.20 m/uL 5.13 5.95 High 3.34 Low 3.66 Low 3.76 Low Hemoglobin 11.5 - 15.5 g/dL 13.6 15.3 8.5 Low 9.3 Low 9.4 Low 10.0 Low Hematocrit 36.0 - 46.0 % 44.6 50.7 High 28.0 Low 31.8 Low 33.2 Low 35.7 Low MCV 80.0 - 100.0 fL 86.9 85.2 83.8 86.9 88.3 MCH 26.0 - 34.0 pg 26.5 25.7 Low 25.4 Low 25.4 Low 25.0 Low MCHC 30.5 - 36.0 g/dL 30.5 30.2 Low 30.4 Low 29.2 Low 28.3 Low RDW-CV 11.5 - 15.0 % 19.9 High 19.9 High 17.0 High 17.5 High 17.1 High Platelet Count 150 - 400 k/uL 227 264 280 282 310 MPV 9.0 - 12.7 fL 9.8 9.3 9.5 9.5 9.8 Absolute nRBC <0.01 k/uL <0.01 <0.01 <0.01 <0.01 Urinalysis: Specific [place], Ur Date Value Ref Range Status 01/17/2020 1.002 1.005 - 1.030 Final Glucose, Urine Date Value Ref Range Status 01/17/2020 * Negative mg/dL Final Bilirubin, Urine Date Value Ref Range Status 01/17/2020 * Negative Final Ketones, Urine Date Value Ref Range Status 01/17/2020 * Negative mg/dL Final Protein, Urine Date Value Ref Range Status 01/17/2020 * Negative mg/dL Final Urobilinogen, Urine Date Value Ref Range Status 01/17/2020 * 0.2 - 1.0 EU/dL Final Nitrites Urine Date Value Ref Range Status 01/17/2020 * Negative Final WBC, Urine Date Value Ref Range Status 01/17/2020 2.0-5 0.0 - 5.0 /hpf Final Urine Culture: Urine Culture (no units) Date Value 01/17/2020 No growth <1,000 CFU/ml. 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 Discussed with the resident and agree with resident's findings and plan as documented in the resident's note.[facility]08-21-2023 NoteHNO ID: [id number] Author: Georgette Harvey RN Service: Nursing Author Type: Registered Nurse Type: Nursing Progress Note Filed: 02/28/2023 6:31 PM Note Text: Dr. Scott at bedsideMainegeneral Medical Center08-21-2023 NoteHNO ID: [id number] Author: Georgette Harvey RN Service: Nursing Author Type: Registered Nurse Type: Nursing Progress Note Filed: 02/28/2023 6:19 PM Note Text: Pt instructed on use of IS, able to return demonstrate proper use.[facility]08-21-2023 NoteHNO ID: [id number] Author: Georgette Harvey RN Service: Nursing Author Type: Registered Nurse Type: Nursing Progress Note Filed: 02/28/2023 6:05 PM Note Text: Dr. Scott in to see pt. Sat's 92-94 on 3liters, BP 80's. Pt asymptomatic. New orders receivedMainegeneral Medical Center08-21-2023 NoteHNO ID: [id number] Author: Sugar Rhodes APRN.MUD WORKER Service: Anesthesiology Author Type: Nurse Respiratory Technician Type: Anesthesia Procedure Notes Filed: 02/28/2023 1:28 PM Note Text: ANESTHESIOLOGY PROCEDURE NOTE Airway General Information Procedure Start Time/Medication Administration: 02/28/2023 12:53 PM Patient location during procedure: OR Consent Obtained: Yes Patient identity confirmed: arm band Staffing Anesthesiologist: Jeremy Scott DO MUD WORKER: Sugar Rhodes APRN.MUD WORKER Performed by: ROSELYN Indications and Patient Condition Indications for airway management: anesthesia Preoxygenated: yes anesthesia circuit Patient position: sniffing Method: sleep Cricoid Pressure: No Manual In-Line Stabilization: No Difficult Mask: No Final Airway Details Final airway type: endotracheal airway Final Endotracheal Airway: ETT Cuffed: yes Successful intubation technique: direct laryngoscopy Endotracheal tube insertion site: oral Blade: Shane Blade size: #4 ETT size (mm): 7.0 Measured from: gums Measurement (cm): 22 Placement verified by: capnometry Cormack-Lehane Classification: grade I - full view of glottis Number of attempts at approach: 1 Failed airway: no Unrecognized esophageal intubation: no Airway not difficult SIGNATURE: Sugar Rhodes APRN.MUD WORKER PATIENT NAME: Spencer Redding DATE: February 28, 2023 TIME: 1:27 PM CSN: [id number] NoteHNO ID: [id number] Author: Mayda Jaramillo APRN.CNP Service: General Surgery Author Type: Nurse Practitioner Type: Progress Notes Filed: 02/22/2023 12:50 PM Note Text: Summary: PAT LISA Asif at Dr. Huntley's office asking for cardiac and medical optimization to be scanned in epic. Richelle please follow up.[facility]08-11-2023 Miscellaneous Notes* Telephone Encounter - Laya Alonzo - 02/18/2023 3:40 PM EDT I called and notified the patient about the CT results and the message noted below from Dr. Huntley.She seemed to have a clear understanding. * Telephone Encounter - Laya Alonzo - 02/18/2023 3:40 PM EDT ----- Message from Christiano Huntley MD sent at 02/17/2023 4:55 PM EDT ----- Here are the test results.Keep follow up appointment for nephrectomy as planned [facility] History and physical note * Licha Hoffmann APRN.WIRE FRAME 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 - 02/18/2023 8:40 AM EDT HISTORY AND PHYSICAL EXAMINATION SERVICE DATE: 02/18/2023 SERVICE TIME: 8:40 AM PRIMARY CARE PHYSICIAN: Trevor Vieyra MD REASON FOR VISIT: Spencer Redding is a 57 year old female who is scheduled for Procedure(s): XI ROBOTIC LAPAROSCOPIC NEPHRECTOMY RADICAL (Left) at the request of Dr. Christiano Huntley for routine H&P. My final recommendation will be communicated back to the requesting physician by way ofshared medical record or letter. To perform a comprehensive review of the patients past medical history, assess their current healthstatus and obtain any additional testing required based on anesthesia guidelines. To assess and identify potential anesthesia problems, particularly those that may suggest potential complications or contraindications to the planned procedure. Subjective The patient has the following: ACTIVE PROBLEM LIST Polycystic Kidney Gross Hematuria Hydronephrosis of Right Kidney Coronary Artery Abnormality History of Recurrent Deep Vein Thrombosis (Dvt) Obesity, Class II, Bmi 35-39.9 Abdominal Pain Obesity, Class I, Bmi 30-34.9 Preop Examination Primary Hypertension Anemia in Chronic Kidney Disease Atherosclerosis of Coronary Artery Cardiac Defibrillator in Place Cardiomyopathy (Hcc) Dependence On Renal Dialysis (Hcc) Dvt (Deep Venous Thrombosis) (Hcc) End-Stage Renal Disease (Hcc) History of Thrombosis Mixed Hyperlipidemia COVID-19 Immunization Status Overdue - COVID-19 VACCINE (4 - Pfizer series) Overdue since 07/10/2021 05/15/2021 Imm Admin: COVID-19 original vaccine, full dose, monovalent (MODERNA) 10/14/2020 Imm Admin: COVID-19 original vaccine, age 12+ yr, monovalent (PFIZER- BIONTECH - PURPLE TOP) 09/23/2020 Imm Admin: COVID-19 original vaccine, age 12+ yr, monovalent (PFIZER- BIONTECH - PURPLE TOP) CHIEF COMPLAINT: Polycystic kidney, Preopeartive evaluation HPI: 57 year old female presents for presurgical testing. She has been diagnosed with polycystic kidney disease. She has been on hemodialysis for 15 years. She receives hemodialysis Tuesday, Tuesdayand Tuesday at [facility] in [place]. She has a left upper arm graft. She is status post right radical nephrectomy 02/22/2022. Current surgery scheduled is left radical nephrectomy. She reports constant left back/kidney, flank and abdominal achiness 12/18. After discussion with the surgeon patient has agreed to surgical intervention. REVIEW OF SYSTEMS: General: No weight loss, malaise or fevers. Neurological: Negative for: dementia, headaches, impaired sensorium, multiple sclerosis, Parkinson's disease, seizures, TIA and strokes. Respiratory: No history of current cough or dyspnea, or pneumonia in the past 6 weeks. No history of respiratory/pulmonary symptoms or problems. Negative for: tobacco use and obstructive sleep apnea. Cardiovascular: Positive for: AICD/PPM (followed by [facility]. Recommendations in [facility]), anticoagulation therapy, CAD and hypertension Patient's last office visit with liquid chlorine operator, Dr. Garvin, was February 2023. Negative for: angina, arrhythmia, atrial fibrillation, chest pain, CHF, DVT/PE, hyperlipidemia, murmur/valvular heart disease, PTCA, PVD, open heart surgery and valve surgery. GI: No history of GI symptoms or problems. No history of esophageal varices, recent ascites, or ETOH greater than 2 drinks per day. Negative for: abdominal pain, dysphagia, nausea and vomiting. : See HPI. Positive for: on dialysis and renal failure. The dialysis type is HD. Patient's renal failure is chronic. Endocrine: No history of diabetes. Has not taken steroids within the past 30 days. No history of endocrinological symptoms or problems. Hematology: Positive for: chronic anti-coagulation/platelet meds. Patient is on anti- coagulation/platelet medication(s): Coumadin. Negative for: anemia, bruises/bleeds easily, factor V Leiden, hemophilia, thrombocytopenia, von Willebrand disease and transfusion of at least 4 units within 72 hours prior to surgery. Oncology: No history of CA metastasis, chemo within 30 days, or radiotherapy within 90 days. No history of oncological symptoms or problems. Psych: No history of psychiatric symptoms or problems. Musculoskeletal: Negative for joint pain or swelling, back pain or muscle pain. Skin: Negative for lesions, rash and itching. PAST MEDICAL HISTORY Diagnosis Date AICD (automatic cardioverter/defibrillator) present 06/2016 Anxiety Arthritis Blood clot in vein lower left leg CAD (coronary artery disease) s/p cardiac stent x6 2015; last cardiology visit 12/25/[address] Garvin; pt taking Plavix Chronic kidney disease Delayed emergence from general anesthesia Depression DVT (deep vein thrombosis) in 2006 left below the knee ESRD (end stage renal disease) on dialysis ([facility]) MWF/[facility] in [place] [id number] History of coronary artery stent placement 04/22/2016 Hx of cardiovascular stress test 2017 negative for ischemia, EF 70% Hx of echocardiogram 02/2017 EF 60% moderate LVH, no valvular abnormalities- received from [facility]- on hard chart Hx of sudden cardiac successfully resuscitated Hyperlipidemia Hypertension Osteoarthritis of multiple joints Polycystic kidney disease Thyroid disease Ventricular tachycardia (HCC) S/P defibrillator 2015 PAST SURGICAL HISTORY Procedure Laterality Date AV FISTULA OR GRAFT VENOUS Left 2016 AV FISTULA REPAIR HX Right 06/24/2015 CYST/MOLE REMOVAL benign- on neck CYSTOSCOPY 02/2020 RETROPYELOGRAM FISTULA Left 08/2016 dialysis FISTULA Right 2014 dialysis LEFT HEART CATH,PERCUTANEOUS 04/22/2016 PTCA stent RCA/PDA, LAD PAST SURGICAL HISTORY OF 06/2016 Defibrillator placed 2015; generator change 11/2019 PAST SURGICAL HISTORY OF 02/22/2022 obotic Assisted Laparoscopic Right Radical Nephrectomy, robotic renal cyst decortication Dr. Huntley PICC LINE PRQ CARDIAC STENT W/ANGIO 1 VSL 2015 6 cardic stents THYROIDECTOMY TOTAL/COMPLETE FAMILY HISTORY Problem Relation Age of Onset Diabetes Mother Cancer Mother Heart Father Kidney Disease Father other (HTN) Father Diabetes Sister Heart Brother Kidney Disease Brother Diabetes Maternal Grandmother Social History Tobacco Use Smoking status: Never Smokeless tobacco: Never Vaping Use Vaping Use: Never used Substance Use Topics Alcohol use: Not Currently Drug use: Never Prior to Admission medications as of 02/18/23 0852 Medication Sig Last Dose Taking fludrocortisone (FLORINEF) 0.1 mg tablet Take 0.1 mg by mouth once daily. Taking Yes RANI-YAHIR 0.8 mg tab Take 1 tablet by mouth every afternoon. Taking Yes calcium carbonate (TUMS ULTRA) 400 mg (1,000 mg) chew Take 1,000 mg by mouth once daily. Taking Yes sevelamer carbonate (RENVELA) 800 mg tablet Take 5 tablets by mouth three times daily with meals. Taking Yes Cholecalciferol, Vitamin D3, 50 mcg (2,000 unit) cap Take by mouth once daily. Taking Yes zolpidem (AMBIEN) 5 mg tablet Take 10 mg by mouth at bedtime as needed. Taking Yes atorvastatin (LIPITOR) 40 mg tablet TAKE 1 TABLET BY MOUTH EVERY DAY AT BEDTIME FOR CHOLESTEROL Taking Yes warfarin (COUMADIN) 7.5 mg tablet Take 7 mg by mouth once daily. Taking Yes sertraline (ZOLOFT) 50 mg tablet Take 50 mg by mouth once daily. Taking Yes gabapentin (NEURONTIN) 600 mg tablet Take 600 mg by mouth daily at bedtime. Patient not taking: Reported on 02/18/2023 Not Taking nitroglycerin sublingual (NITROQUICK) 0.4 mg SL tablet DISSOLVE 1 TAB UNDER THE TONGUE EVERY 5 MINUTES NEEDED FOR CHEST PAIN metoprolol tartrate, short acting, (LOPRESSOR) 25 mg tablet Take 25 mg by mouth once daily. Patient not taking: Reported on 02/18/2023 Not Taking No medication comments found. ALLERGIES Allergen Reactions Penicillins Hives, Rash [place] Vomiting, Rash Etodolac Rash Sevelamer GI Upset Sulfamethoxazole-Tr* GI Upset, Rash Tramadol Intolerance, Rash Objective PHYSICAL EXAM: General: alert and oriented and healthy appearance. Pertinent negatives noted - not distressed. Skin: normal color, no rash or lesions. HEENT: No additional findings for patient's neck. Cardiovascular: regular rate and rhythm, normal S1 and S2, no rub, murmurs, or gallop. Respiratory: normal breath sounds, no wheezes or crackles. Abdomen: bowel sounds present and soft. Pertinent negatives noted - not tender. Extremities: no deformity, no edema or tenderness, no joint swelling or clubbing. Neurological: normal cognition and motor skills. PAIN ASSESSMENT: Pain Pain Level: 6 VITALS: BP 104/66 Pulse 77 Temp 97.3 Resp 18 Ht 5' 2.5 (1.59m) Wt 189 lb (85.7kg) SpO2 99% BMI 34.00 kg/(m^2). Diagnostic tests reviewed for today's visit: Lab Value Units Date High Low HB No results within date range. HCT No results within date range. WBC No results within date range. PLT No results within date range. NA No results within date range. K No results within date range. GLUC No results within date range. BUN No results within date range. CREAT No results within date range. PTSEC No results within date range. INR No results within date range. APTT No results within date range. ALT No results within date range. AST No results within date range. TBILI No results within date range. TSH No results within date range. Lab Value Units Date High Low HCGQT No results within date range. UHCG No results within date range. HCG, BODY* No results within date range. Lab Value Units Date High Low ABORHD No results within date range. ABSCREEN No results within date range. No results found for: HBA1C No results found for this or any previous visit (from the past 8760 hour(s)). No results found for this or any previous visit (from the past 49079 hour(s)). Assessment Implantable Devices: AICD Blood thinners: Pt. taking warfarin. Instructed to call surgeon and prescribing provider for preop instructions. Assessment/Plan DIAGNOSIS Preoperative evaluation Polycystic kidney [Q61.3] PLAN Planned Procedure: Procedure(s): XI ROBOTIC LAPAROSCOPIC NEPHRECTOMY RADICAL (Left) The Following Tests/Procedures Have Been Initiated: Orders Placed This Encounter fludrocortisone (FLORINEF) 0.1 mg tablet Sig: Take 0.1 mg by mouth once daily. RANI-YAHIR 0.8 mg tab Sig: Take 1 tablet by mouth every afternoon. calcium carbonate (TUMS ULTRA) 400 mg (1,000 mg) chew Sig: Take 1,000 mg by mouth once daily. Ordered per surgeon in [facility]: Urine culture, type and screen H&H 14.2/42.6 02/07/23 at [facility]. Results on chart. BMP 01/17/23 from [facility] reviewed Pt. Reports she is anuric and she is unable to give urine sample Pt. Reports labs to be drawn again 02/21 at dialysis I spent a total of 65 minutes on the date of the service which included preparing to see the patient, [id number] patient care, completing clinical documentation, obtaining and/or reviewing separately obtained history, performing a medically appropriate examination, counseling and educating the pat ient/family/caregiver, ordering medications, tests, or procedures, communicating with other HCPs (not separately reported), independently interpreting results (not separately reported), communicatingresults to the patient/family/caregiver, and care coordination (not separately reported). Patient has the following medical conditions which may affect mela-operative course: Preop examination See A/P for medical conditions which may affect mela-operative course Polycystic kidney For surgery Cardiac defibrillator in place Hx of sudden cardiac successfully resuscitated Hx of Ventricular tachycardia S/P AICD 06/2016; generator change 2019 Managed by [facility] device clinic and [facility] cardiologyGilberto. Remote device check 01/21/23. Report in [facility]. Device recommendations in [facility] Atherosclerosis of coronary artery Stable. Denies cardiac symptoms Hx of coronary artery stent 2015 Medically managed. Advised to continue same medication and take day of surgery. Cardiac clearance is pending Mixed hyperlipidemia Statin. Advised to continue same medication and take day of surgery. End-stage renal disease (HCC) Hemodialysis Tuesday [facility] in [place] Chávez Activity Status Index: METS: Climb a flight of stairs or walk up a hill (5.50 METs) DASI Score: 5.5 Patient denies any chest pain or undue shortness of breath with the above physical activity. ARISCAT Score: Age: 51-80 Preoperative SpO2: >=96% Respiratory infection in the last month: No Preoperative anemia: Yes Surgical incision: upper abdominal Duration of surgery: >3 hrs Emergency procedure: No ARISCAT Score: 52 ANESTHESIA FINDINGS: Intubation History: Significant Anesthesia Considerations: potential slow emergence Airway History: I - PHYSICAL EVALUATION AIRWAY Patient intubated: No. DENTAL Dental findings: teeth intact and missing tooth/teeth. II - ANESTHESIA PLAN Anesthetic Plan: general Beta Genesis Monitoring Plan Post Procedure Analgesic Plan Prepared for Surgery: CONSULTS: The following consults have been initiated at this time: cardiology, primary care/internal medicine and renal (in [facility]). Planned Anesthetic: general The Following Tests/Procedures Have Been Initiated: Orders Placed This Encounter fludrocortisone (FLORINEF) 0.1 mg tablet Sig: Take 0.1 mg by mouth once daily. RANI-YAHIR 0.8 mg tab Sig: Take 1 tablet by mouth every afternoon. calcium carbonate (TUMS ULTRA) 400 mg (1,000 mg) chew Sig: Take 1,000 mg by mouth once daily. Instructions Given to Patient: Instructions located in the after visit summary. Patient given verbal and written preop instructions and voices comprehension and compliance. SIGNATURE: Licha Hoffmann APRN.CNP PATIENT NAME: Spencer Redding DATE: February 18, 2023 TIME: 7:55 AM PAGER/CONTACT #: documented in this [facility]-09-2023 Telephone encounter Note * Telephone Encounter - Barbra Clark - 02/16/2023 2:55 PM EDT Faxed over per their request latest interrogation. [phone] Miscellaneous Notes* Telephone Encounter - Barbra Clark - 02/16/2023 2:55 PM EDT Faxed over per their request latest interrogation. documented in this encounterSUniversity Hospitals Conneaut Medical [id number] Instructions* Patient Instructions* Licha Hoffmann APRN.CNP - 02/16/2023 2:00 PM EDT PATIENT PREOPERATIVE INSTRUCTIONS Christiano Huntley MD has scheduled you for your procedure at this surgery center: [facility]: [phone], [address] [phone] Please read below carefully for your personalized instructions. Surgery: DATE: 02/28/2023 Your surgeon's office will call you with your ARRIVAL TIME for surgery the afternoon before surgerywith a scheduled arrival time. If you are scheduled for a Tuesday surgery they will call you Tuesday for your arrival time. Please be aware that emergency situations arise, which may delay or change your surgical time. If this happens, we will notify you as soon as possible and regret any inconvenience. Dietary Restrictions: - No solid food after midnight. - You may have 12 ounces of clear liquids (water, clear juices such as apple juice or gatorade, carbonated beverages, clear tea, black coffee, jello) until 2 hours before scheduled arrival at facility. Do not eat or drink anything, including water and coffee, after that time on the morning of your surgery. This is important because if you do, your surgery may have to be cancelled - Do not drink any alcohol after midnight the night before your surgery. Medications: Approved medications can be taken the morning of surgery with a sip of water. AVS was given to patient and specific instructions for each medication reviewed. See medication list. Please continue to take blood pressure medications including day of surgery. Approved medications to take the morning of surgery with a sip of water: blood pressure, heart, thyroid, psych, seizure, and pain medications excluding NSAIDS. Use inhalersas prescribed. Please bring inhalers. Please follow up with the provider that manages your diabetes on how to prepare you for surgery. Any oral diabetic medications should be held day of surgery. Do not take the morning of surgery; Trajenta, Metformin, Actos/Pioglitazone and Amaryl/Glimepiride. For the following Medications, please HOLD 2 DAYS PRIOR TO SURGERY: Glucotrol/Glipizide, Januvia/Sitagliptin, Glyburide, Prandin/Repaglinide, Starlix/Nateglinide,Symlin/Pramlintide, Dulaglutide/Trulicity, Exenatide (Bydureon/Byetta), Semaglutide (Ozempic, Rybelsus, Wegovy), Laraglutide (Victoza/Saxenda), Lixsenstide (Adlyxin), Mounjaro. For the following Medications, please HOLD 3 DAYS PRIOR TO SURGERY: Canagliflozin/Invokana, Dapagliflozin/Farxiga ,Empagliflozin/Jardiance, Invokamet/canagliflozin and metformin, Xigduo XR/ dapagliglozin and metformin, Glyxambi/ empagliflozin and metformin, Syndardy/ empagliflozin and metformin For the following Medications, please HOLD 4 DAYS PRIOR TO SURGERY: Ertugliflozin/Steglatro Insulin Medication Instructions: Please follow up with the provider that manages your Insulin and how to prepare you for surgery. Blood Thinning Medications: - Stop NSAIDS (Ibuprofen, Advil, Aleve, Motrin, Celebrex, Mobic, etc.) 7 days before surgery, as directed by your surgeon. - If you take any of the following blood thinners, please contact your surgeon and the physician who prescribes it for you in order to get perioperative instructions as soon as possible Blood thinners: Aspirin,Coumadin, Plavix, Eliquis, Pradaxa, Xarelto, Lovenox, Brilinta, Effient, Savaysa, Arixtra etc. - Stop Vitamin E, fish oil, Ginko, [place]'s Wort, flax seed oil, multivitamins, CBD oil, marijuana and other over the counter herbals and dietary supplements 7 days before surgery. - This would not apply to cancer patients who are prescribed Marinol or any other prescription formof marijuana or CBD. Pain Medications: - You may take Tylenol (Acetaminophen) or any of your current prescribed pain medications that do not contain aspirin or NSAIDS as needed. If you start any new medications after today's visit, please contact the surgeon's office. Important Reminders: - If you have a stimulator, implant or pump that requires a remote please bring the remote with youday of surgery - If you use CPAP/BIPAP, bring the machine with you to the surgery center. - If you are prescribed inhalers for breathing, continue using them AND bring them to the surgery center. - Candy, mints, gum and tobacco products are NOT permitted the morning of surgery. - Hearing aids, dentures and glasses may be worn the morning of surgery. - NO jewelry, body piercings, makeup, hairpins or contacts are to be worn the day of surgery. - NO keys, wallet, watches, or purses - NO lotion, creams, powders or deodorants on the skin the day of surgery - Wear loose, comfortable clothing that will accommodate bandages. - Your length of stay will be determined by your surgeon - You will need to have someone else (Family or friend) drive you home once discharged from the hospital. You are not allowed to drive yourself home after surgery. - YOU MUST HAVE A RESPONSIBLE SAXOPHONE ASSEMBLER TAKE YOU HOME. A CHEMIST ASSISTANT, CAB OR UBER SAXOPHONE ASSEMBLER CANNOT BE MADEA RESPONSIBLE SAXOPHONE ASSEMBLER. - We recommend that a responsible person stays with you overnight to take care of you. - You cannot stay in a hotel alone after outpatient surgery. You will not be permitted to have yoursurgery, if you do not have someone to take care of you. --IF you are having a TOTAL KNEE, HIP REPLACEMENT OR ORTHOPEDIC SURGERY: -Ambulatory surgery center [place] - orthopedic patients needing a walker should bring the walker intothe building day of surgery. -[facility] into [facility]. -Orthopedic patients having surgery [facility] listed as to be admitted should leave their walkers in the car or with a family member. Surgical scrub given day of PST. Oral hygiene and a shower or bath is required the evening before or the morning of surgery. Use the Hibiclens body wash supplied to you along with the instruction. It is recommended patients have a 72 hour period between getting a vaccine and date of surgery. If you develop symptoms such as a fever, cold, or flu, or have other changes to your health within TWO DAYS of scheduled surgery or the morning of surgery, please contact the surgery center above. Personal Belongings: - Leave ALL valuables and money at home or with family members. - You will need a form of ID and insurance card to check in the morning of surgery. - You will have to wear a hospital gown during your stay but if you wish to bring undergarments forafter surgery you may. Current policy will allow for up to 2 visitors on the day of surgery/procedure. ASC Pre surgery - One visitor in Pre-surgery due to limited space. ASC PACU - No visitors in PACU unless it's a minor due to limited space. If you already have an Advance Directive, please fax a copy to [phone] or email to for it to be added to your chart. If you do not have an Advance Directive, you can find the appropriate form and more information at [email or web address]. We recommend that youcomplete the Advance Directive form found on the website and bring it with you the day of your surgery. It can be witnessed and scanned into your chart that day. Licha Hoffmann APRN.CNP documented in this encounterC[facility]-09-[facility]23 NoteHNO ID: [id number] Author: Shanika Ewing RT(R) Service: ? Author Type: Wash Driller Type: Progress Notes Filed: 02/16/2023 1:50 PM Note Text: Radiology Service Progress Note PATIENT NAME: Spencer Redding DATE OF SERVICE: February 16, 2023 TIME: 1:50 PM PATIENT IDENTITY VERIFICATION COMPLETED USING TWO (2) IDENTIFIERS: Name and Date of confirmed by patient verbally. FALL SCREENING: Has the patient had 2 falls in the last year or 1 fall with injury or currently using an Ambulatory Assistive Device (Walker, Cane, Wheelchair, Crutches, etc.)? No PATIENT GENDER DATA: Female. status: : No status: NO. PATIENT RELEVANT IMPLANT DATA REVIEWED: Yes RADIOLOGY DEPARTMENT: CT; Exam(s) Completed: Abdomen/Pelvis PERIPHERAL IV DATA: Not applicable SIGNED BY: RT Yg(Lelia) February 16, 2023 1:50 [facility]08-09-2023 History of Present illness Narrative* Shanika Ewing RT(R) - 02/16/2023 8:20 AM EDT Radiology Service Progress Note PATIENT NAME: Spencer Redding DATE OF SERVICE: February 16, 2023 TIME: 1:50 PM PATIENT IDENTITY VERIFICATION COMPLETED USING TWO (2) IDENTIFIERS: Name and Date of confirmedby patient verbally. FALL SCREENING: Has the patient had 2 falls in the last year or 1 fall with injury or currently using an Ambulatory Assistive Device (Walker, Cane, Wheelchair, Crutches, etc.)? No PATIENT GENDER DATA: Female. status: : No status: NO. PATIENT RELEVANT IMPLANT DATA REVIEWED: Yes RADIOLOGY DEPARTMENT: CT; Exam(s) Completed: Abdomen/Pelvis PERIPHERAL IV DATA: Not applicable SIGNED BY: RT Yg(R) February 16, 2023 1:50 PM documented in this encounterC[facility]08-09-2023 Miscellaneous Notes* Result Encounter Note - Christiano Huntley MD - 02/16/2023 8:20 AM EDT Here are the test results.Keep follow up appointment for nephrectomy as planned documented in this encounterC[facility]08-03-2023 NoteHNO ID: [id number] Author: Christiano Huntley MD Service: ? Author Type: Physician Type: Progress Notes Filed: 02/10/2023 9:21 AM Note Text: HISTORY OF PRESENT ILLNESS: Spencer Redding is a 57 year old female with complaints of left flank pain. She is. That resolved after right radical nephrectomy. She currently makes urine. The drain was clear on the right side 02/22/2022: RAL Lap Right Radical Nephrectomy A. Kidney, right, radical nephrectomy: - Benign kidney with histologic changes of end stage renal disease, innumerable cysts, severe nephrocalcinosis and calcific arteriosclerosis, clinically polycystic kidney disease. - Unremarkable margins of the resection. 01/28/2022: Cystoscopy: Sunset appearing bladder, blood emanating from the right ureteral orifice 02/15/2020: Cystoscopy and pyelograms: (-). 2017: Coronary stents x 5 09/02/2015: Cystoscopy and pyelograms: Negative 06/27/2015: Right upper extremity fistula 07/11/2007: Left upper extremity fistula 2004: DVT without PE No results found for this basename: uglucpoc,ubilipoc,uketonpoc,usgpoc,uhbpoc,uphpoc,upropoc,uuropoc,unitpoc,uw bcpoc,ucolpoc,[facility] @KATTY@ ALLERGIES ALLERGIES Allergen Reactions Penicillins Hives, Rash [place] Vomiting, Rash Etodolac Rash Sevelamer GI Upset Sulfamethoxazole-Tr* GI Upset, Rash Tramadol Intolerance, Rash MEDICATIONS: gabapentin (NEURONTIN) 600 mg tablet Take 600 mg by mouth daily at bedtime. sevelamer carbonate (RENVELA) 800 mg tablet Take 5 tablets by mouth three times daily with meals. Cholecalciferol, Vitamin D3, 50 mcg (2,000 unit) cap Take by mouth once daily. clopidogrel (PLAVIX) 75 mg tablet Take 75 mg by mouth once daily. (Patient not taking: Reported on 04/08/2022) zolpidem (AMBIEN) 5 mg tablet Take 10 mg by mouth at bedtime as needed. nitroglycerin sublingual (NITROQUICK) 0.4 mg SL tablet DISSOLVE 1 TAB UNDER THE TONGUE EVERY 5 MINUTES NEEDED FOR CHEST PAIN atorvastatin (LIPITOR) 40 mg tablet TAKE 1 TABLET BY MOUTH EVERY DAY AT BEDTIME FOR CHOLESTEROL metoprolol tartrate, short acting, (LOPRESSOR) 25 mg tablet Take 25 mg by mouth once daily. warfarin (COUMADIN) 7.5 mg tablet Take 7.5 mg by mouth once daily. sertraline (ZOLOFT) 50 mg tablet Take 50 mg by mouth once daily. HISTORIES PAST MEDICAL HISTORY Diagnosis Date Anxiety Arthritis CAD (coronary artery disease) s/p cardiac stent x6 2015; last cardiology visit 12/25/[address] Garvin; pt taking Plavix Delayed emergence from general anesthesia Depression DVT (deep vein thrombosis) in 2006 pt taking Warfarin ESRD (end stage renal disease) on dialysis (HCC) MWF Hx of cardiovascular stress test 2016 negative for ischemia, EF 70% Hx of echocardiogram 02/2017 EF 60% moderate LVH, no valvular abnormalities- received from [facility]- on hard chart Hyperlipidemia Hypertension Polycystic kidney disease Thyroid disease Ventricular tachycardia (HCC) S/P defibrillator 2016 PAST SURGICAL HISTORY Procedure Laterality Date AV FISTULA OR GRAFT VENOUS Left 2016 AV FISTULA REPAIR HX Right 2015 CYST/MOLE REMOVAL benign- on neck CYSTOSCOPY 02/2020 RETROPYELOGRAM FISTULA Left 08/2016 dialysis FISTULA Right 2014 dialysis PAST SURGICAL HISTORY OF Defibrillator placed 2015; generator change 11/2019 PAST SURGICAL HISTORY OF 02/22/2022 obotic Assisted Laparoscopic Right Radical Nephrectomy, robotic renal cyst decortication Dr. Huntley PICC LINE PRQ CARDIAC STENT W/ANGIO 1 VSL 2016 6 cardic stents THYROIDECTOMY TOTAL/COMPLETE FAMILY HISTORY Problem Relation Age of Onset Diabetes Mother Diabetes Sister Diabetes Maternal Grandmother Heart Father Kidney Disease Father Heart Brother Kidney Disease Brother Social History Tobacco Use Smoking status: Never Smokeless tobacco: Never Vaping Use Vaping Use: Never used Substance Use Topics Alcohol use: Not Currently Drug use: Never REVIEW OF SYSTEMS: Const: Well appearing, in no acute distress, well-hydrated, well-nourished, alert, awake, oriented to time, place and person. : See HPI The remainder of the ROS was reviewed and is negative. PHYSICAL EXAMINATION: VITAL SIGNS: Ht 5' 2.5 (1.59m) Wt 187 lb (84.8kg) BMI 33.64 kg/(m2). General appearance: Well appearing, in no acute distress, well-hydrated, well-nourished, alert, awake, oriented to time, place and person. Heart: RRR without murmur, gallop, or rubs. No ectopy Lungs: Lungs clear to auscultation. No wheezing, rhonchi, rales Neck: Normal Abdomen: Normal abdominal exam, soft, nontender, right-sided incisions are all intact without evidence of hernia nor paresthesias. There is significant fullness left side of the abdomen related to the kidney. I personally reviewed the patient's radiology images and dictation and I agree with the radiologist's opinion. I personally reviewed the patient's laborat (more content not included)... [facility]08-03-2023 History of Present illness Narrative* Christiano Huntley MD - 02/10/2023 9:04 AM EDT HISTORY OF PRESENT ILLNESS: Spencer Redding is a 57 year old female with complaints of left flank pain. She is. That resolved after right radical nephrectomy. She currently makes urine. The drain was clear on the right side 02/22/2022: RAL Lap Right Radical Nephrectomy A. Kidney, right, radical nephrectomy: - Benign kidney with histologic changes of end stage renal disease, innumerable cysts, severe nephrocalcinosis and calcific arteriosclerosis, clinically polycystic kidney disease. - Unremarkable margins of the resection. 01/28/2022: Cystoscopy: Sunset appearing bladder, blood emanating from the right ureteral orifice 02/15/2020: Cystoscopy and pyelograms: (-). 2017: Coronary stents x 5 09/02/2015: Cystoscopy and pyelograms: Negative 06/27/2015: Right upper extremity fistula 07/11/2007: Left upper extremity fistula 2003: DVT without PE No results found for this basename: uglucpoc,ubilipoc,uketonpoc,usgpoc,uhbpoc,uphpoc,upropoc,uuropoc ,unitpoc,uwbcpoc,ucolpoc,uclarpoc @KATTY@ ALLERGIES ALLERGIES Allergen Reactions Penicillins Hives, Rash [place] Vomiting, Rash Etodolac Rash Sevelamer GI Upset Sulfamethoxazole-Tr* GI Upset, Rash Tramadol Intolerance, Rash MEDICATIONS: gabapentin (NEURONTIN) 600 mg tablet Take 600 mg by mouth daily at bedtime. sevelamer carbonate (RENVELA) 800 mg tablet Take 5 tablets by mouth three times daily with meals. Cholecalciferol, Vitamin D3, 50 mcg (2,000 unit) cap Take by mouth once daily. clopidogrel (PLAVIX) 75 mg tablet Take 75 mg by mouth once daily. (Patient not taking: Reported on 04/08/2022) zolpidem (AMBIEN) 5 mg tablet Take 10 mg by mouth at bedtime as needed. nitroglycerin sublingual (NITROQUICK) 0.4 mg SL tablet DISSOLVE 1 TAB UNDER THE TONGUE EVERY 5 MINUTES NEEDED FOR CHEST PAIN atorvastatin (LIPITOR) 40 mg tablet TAKE 1 TABLET BY MOUTH EVERY DAY AT BEDTIME FOR CHOLESTEROL metoprolol tartrate, short acting, (LOPRESSOR) 25 mg tablet Take 25 mg by mouth once daily. warfarin (COUMADIN) 7.5 mg tablet Take 7.5 mg by mouth once daily. sertraline (ZOLOFT) 50 mg tablet Take 50 mg by mouth once daily. HISTORIES PAST MEDICAL HISTORY Diagnosis Date Anxiety Arthritis CAD (coronary artery disease) s/p cardiac stent x6 2015; last cardiology visit 12/25/[address] Garvin; pt taking Plavix Delayed emergence from general anesthesia Depression DVT (deep vein thrombosis) in 2006 pt taking Warfarin ESRD (end stage renal disease) on dialysis ([facility]) MWF Hx of cardiovascular stress test 2016 negative for ischemia, EF 70% Hx of echocardiogram 02/2017 EF 60% moderate LVH, no valvular abnormalities- received from [facility]- on hard chart Hyperlipidemia Hypertension Polycystic kidney disease Thyroid disease Ventricular tachycardia (HCC) S/P defibrillator 2016 PAST SURGICAL HISTORY Procedure Laterality Date AV FISTULA OR GRAFT VENOUS Left 2016 AV FISTULA REPAIR HX Right 2015 CYST/MOLE REMOVAL benign- on neck CYSTOSCOPY 02/2020 RETROPYELOGRAM FISTULA Left 08/2016 dialysis FISTULA Right 2014 dialysis PAST SURGICAL HISTORY OF Defibrillator placed 2015; generator change 11/2019 PAST SURGICAL HISTORY OF 02/22/2022 obotic Assisted Laparoscopic Right Radical Nephrectomy, robotic renal cyst decortication Dr. Huntley PICC LINE PRQ CARDIAC STENT W/ANGIO 1 VSL 2015 6 cardic stents THYROIDECTOMY TOTAL/COMPLETE FAMILY HISTORY Problem Relation Age of Onset Diabetes Mother Diabetes Sister Diabetes Maternal Grandmother Heart Father Kidney Disease Father Heart Brother Kidney Disease Brother Social History Tobacco Use Smoking status: Never Smokeless tobacco: Never Vaping Use Vaping Use: Never used Substance Use Topics Alcohol use: Not Currently Drug use: Never REVIEW OF SYSTEMS: Const: Well appearing, in no acute distress, well-hydrated, well-nourished, alert, awake, oriented to time, place and person. : See HPI The remainder of the ROS was reviewed and is negative. PHYSICAL EXAMINATION: VITAL SIGNS: Ht 5' 2.5 (1.59m) Wt 187 lb (84.8kg) BMI 33.64 kg/(m^2). General appearance: Well appearing, in no acute distress, well-hydrated, well- nourished, alert, awake, oriented to time, place and person. Heart: RRR without murmur, gallop, or rubs. No ectopy Lungs: Lungs clear to auscultation. No wheezing, rhonchi, rales Neck: Normal Abdomen: Normal abdominal exam, soft, nontender, right-sided incisions are all intact without evidence of hernia nor paresthesias. There is significant fullness left side of the abdomen related to the kidney. I personally reviewed the patient's radiology images and dictation and I agree with the radiologist's opinion. I personally reviewed the patient's laboratory studies. IMPRESSION: Polycystic kidney disease End stage renal disease on dialysis History of right nephrectomy. The adrenal was spared Worsening left flank pain renal cystic kidneys. We discussed risk benefits options patient She is at increased risk of bowel injury due to her previous surgeries and possible scar tissue. We discussed loss of her adrenal gland and the indication of bilateral adrenal loss. Indication from her previous surgery present the adrenal gland was spared. The pathology adrenal and her interval CT clearly demonstrates a right adrenal. PLAN: CT scan without contrast to rule out other causes for her pain. Bladder cystoscopy laparoscopic left radical nephrectomy Plan to spare the adrenal gland We will try to get a urine culture preoperatively patient presents the urine. We will get clearance from her medical team and nephrology preoperative Written and verbal health teaching given to patient, patient verbalizes understanding and agrees with treatment plan. Patient will call if worsening symptoms, no improvement, or any other concerns. Plan discussed. Christiano Huntley MD Electronically Signed: Christiano Huntley MD February 10, 2023 9:04 AM This note was partially created using voice recognition software and is inherently subject to errors including those of syntax and sound-alike substitutions which may escape proofreading. In such instances, original meaning may be extrapolated by contextual derivation. Medical Decision Making: Problems: Moderate: 2+ stable chronic illnesses Data: Unique test result(s) reviewed: 2 Unique test(s) ordered: 2 Risk: Moderate: Decision on elective major surgery w/o risk factors Medical Decision Making Level: 4 - Moderate documented in this encounterC[facility]09-29-2022 History of Present illness Narrative* Christiano Huntley MD - 04/08/2022 11:15 AM EDT HISTORY OF PRESENT ILLNESS: Spencer Redding is a 56 year old female with complaints of cholecystic kidneys. She underwent a robotic right nephrectomy due to bleeding cysts and hematuria.She has had no further hematuria since her surgery. She is recovered very nicely from her surgery. 02/22/2022: RAL Lap Right Radical Nephrectomy A. Kidney, right, radical nephrectomy: - Benign kidney with histologic changes of end stage renal disease, innumerable cysts, severe nephrocalcinosis and calcific arteriosclerosis, clinically polycystic kidney disease. - Unremarkable margins of the resection. 01/28/2022: Cystoscopy: Sunset appearing bladder, blood emanating from the right ureteral orifice 02/15/2020: Cystoscopy and pyelograms: (-). 2017: Coronary stents x 5 09/02/2015: Cystoscopy and pyelograms: Negative 06/27/2015: Right upper extremity fistula 07/11/2007: Left upper extremity fistula 2004: DVT without PE No results found for this basename: uglucpoc,ubilipoc,uketonpoc,usgpoc,uhbpoc,uphpoc,upropoc,uuropoc ,unitpoc,uwbcpoc,ucolpoc,[facility] @KATTY@ ALLERGIES ALLERGIES Allergen Reactions Penicillins Hives, Rash [place] Vomiting, Rash Etodolac Rash Sevelamer GI Upset Sulfamethoxazole-Tr* GI Upset, Rash Tramadol Intolerance, Rash MEDICATIONS: gabapentin (NEURONTIN) 600 mg tablet Take 600 mg by mouth daily at bedtime. sevelamer carbonate (RENVELA) 800 mg tablet Take 5 tablets by mouth three times daily with meals. Cholecalciferol, Vitamin D3, 50 mcg (2,000 unit) cap Take by mouth once daily. zolpidem (AMBIEN) 5 mg tablet Take 10 mg by mouth at bedtime as needed. nitroglycerin sublingual (NITROQUICK) 0.4 mg SL tablet DISSOLVE 1 TAB UNDER THE TONGUE EVERY 5 MINUTES NEEDED FOR CHEST PAIN atorvastatin (LIPITOR) 40 mg tablet TAKE 1 TABLET BY MOUTH EVERY DAY AT BEDTIME FOR CHOLESTEROL metoprolol tartrate, short acting, (LOPRESSOR) 25 mg tablet Take 25 mg by mouth once daily. warfarin (COUMADIN) 7.5 mg tablet Take 7.5 mg by mouth once daily. sertraline (ZOLOFT) 50 mg tablet Take 50 mg by mouth once daily. clopidogrel (PLAVIX) 75 mg tablet Take 75 mg by mouth once daily. (Patient not taking: Reported on 04/08/2022) HISTORIES PAST MEDICAL HISTORY Diagnosis Date Anxiety Arthritis CAD (coronary artery disease) s/p cardiac stent x6 2015; last cardiology visit 12/25/[address] Garvin; pt taking Plavix Delayed emergence from general anesthesia Depression DVT (deep vein thrombosis) in 2006 pt taking Warfarin ESRD (end stage renal disease) on dialysis (HCC) MWF Hx of cardiovascular stress test 2016 negative for ischemia, EF 70% Hx of echocardiogram 02/2017 EF 60% moderate LVH, no valvular abnormalities- received from [facility]- on hard chart Hyperlipidemia Hypertension Polycystic kidney disease Thyroid disease Ventricular tachycardia (HCC) S/P defibrillator 2016 PAST SURGICAL HISTORY Procedure Laterality Date AV FISTULA OR GRAFT VENOUS Left 2016 AV FISTULA REPAIR HX Right 2015 CYST/MOLE REMOVAL benign- on neck CYSTOSCOPY 02/2020 RETROPYELOGRAM FISTULA Left 08/2016 dialysis FISTULA Right 2015 dialysis PAST SURGICAL HISTORY OF Defibrillator placed 2016; generator change 11/2019 PAST SURGICAL HISTORY OF 02/22/2022 obotic Assisted Laparoscopic Right Radical Nephrectomy, robotic renal cyst decortication Dr. Huntley PICC LINE PRQ CARDIAC STENT W/ANGIO 1 VSL 2016 6 cardic stents THYROIDECTOMY TOTAL/COMPLETE FAMILY HISTORY Problem Relation Age of Onset Diabetes Mother Diabetes Sister Diabetes Maternal Grandmother Heart Father Kidney Disease Father Heart Brother Kidney Disease Brother Social History Tobacco Use Smoking status: Never Smokeless tobacco: Never Vaping Use Vaping Use: Never used Substance Use Topics Alcohol use: Not Currently Drug use: Never REVIEW OF SYSTEMS: Const: Well appearing, in no acute distress, well-hydrated, well-nourished, alert, awake, oriented to time, place and person. : See HPI The remainder of the ROS was reviewed and is negative. PHYSICAL EXAMINATION: VITAL SIGNS: Ht 5' 2.52 (1.59m) Wt 176 lb 1.6 oz (79.9kg) BMI 31.68 kg/(m^2). General appearance: Well appearing, in no acute distress, well-hydrated, well- nourished, alert, awake, oriented to time, place and person. Abdomen: Normal abdominal exam, soft, nontender, incisions are all healing nicely without evidence of hernia. She does have some paresthesias associated with her paramedian incision I personally reviewed the patient's radiology images and dictation and I agree with the radiologist's opinion. I personally reviewed the patient's laboratory studies. IMPRESSION: Polycystic kidney disease status post right nephrectomy for bleeding. Her hematuria has resolved No current indication for a left nephrectomy. PLAN: Follow-up with me as needed Written and verbal health teaching given to patient, patient verbalizes understanding and agrees with treatment plan. Patient will call if worsening symptoms, no improvement, or any other concerns. Plan discussed. Christiano Huntley MD Electronically Signed: Christiano Huntley MD April 08, 2022 11:20 AM This note was partially created using voice recognition software and is inherently subject to errors including those of syntax and sound-alike substitutions which may escape proofreading. In such instances, original meaning may be extrapolated by contextual derivation. documented in this encounterC[facility]08-20-2022 Miscellaneous Notes* Telephone Encounter - Eduardo - 02/27/2022 1:33 AM EDT Record ID: [id number] Patient name: Spencer Redding Date: February 26, 2022 - 08:33 Administered by: EDUARDO Protocol: Did you receive your discharge instructions? -> yes Do you have any questions about your discharge instructions? Or do you need clarification on anything? -> no Is that correct? -> yes Do you think you'll be able to attend your follow-up appointment? -> yes Do you have any questions about getting or taking your medications? -> no Do you have any new or worsening symptoms? -> no How likely is it that you would recommend [facility] to a friend or family member? -> likely Please tell me what you liked best about your hospital experience: -> The nurses were all very kind documented in this encounterCleveland Clinic [facility]08-17-2022 Miscellaneous Notes* Telephone Encounter - LONG Addison - 02/24/2022 3:46 PM EDT Phoned patient and notified of results as /per provider . Patient acknowledge understanding of instructions and has no further questions. LONG Addison * Telephone Encounter - LONG Addison - 02/24/2022 3:46 PM EDT ----- Message from Christiano Huntley MD sent at 02/24/2022 2:17 PM EDT ----- Great. No cancer! Here are the test results.Keep follow up appointment to discuss the results. documented in this encounterC[facility] Clinic [facility]08-15-2022 Miscellaneous Notes* Telephone Encounter - Christiano Huntley MD - 02/22/2022 1:26 PM EDT 02/22/2022: RAL Lap Right Radical Nephrectomy F/u 6 weeks documented in this encounterCleveland Clinic [facility]08-04-2022 History of Present illness Narrative* Anitha Cobian APRN.ALFA - 02/11/2022 1:51 PM EDT Patient is oliguric, states she barely urinates once a day. Unable to provide urine sample for urine culture ordered by surgeon. Notified Laya in Dr. Huntley's office whom states she will notify Dr. Huntley. documented in this encounterCleveland Clinic [facility]08-04-2022 History and physical note * Anitha Cobian APRN.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 - 02/11/2022 1:40 PM EDT HISTORY AND PHYSICAL EXAMINATION SERVICE DATE: 02/11/2022 SERVICE TIME: 1:32 PM PRIMARY CARE PHYSICIAN: Trevor Vieyra MD, MD REASON FOR VISIT: Spencer Redding is a 56 year old female who is scheduled for Procedure(s): XI ROBOTIC LAPAROSCOPIC NEPHRECTOMY RADICAL (Right) at the request of Dr. Christiano Huntley for routine H&P. My final recommendation will be communicated back to the requesting physician by way of shared medical record or letter. Subjective The patient has the following: ACTIVE PROBLEM LIST Polycystic Kidney Gross Hematuria Hydronephrosis of Right Kidney Coronary Artery Abnormality History of Recurrent Deep Vein Thrombosis (Dvt) Obesity, Class II, Bmi 35-39.9 COVID-19 Immunization Status Overdue - COVID-19 VACCINE (4 - Booster for Pfizer series) Overdue since 09/12/2021 05/15/2021 Imm Admin: COVID-19 vaccine, full dose (MODERNA) 10/14/2020 Imm Admin: COVID-19 vaccine, age 12+ yr (PFIZER-BIONTECH - PURPLE TOP) 09/23/2020 Imm Admin: COVID-19 vaccine, age 12+ yr (PFIZER-BIONTECH - PURPLE TOP) CHIEF COMPLAINT: pre-op exam HPI: Spencer is a 56 year old female who presents for presurgical testing. She has a history of polycystic kidney disease and has been on dialysis for the past 14 years. She states she has had blood andblots in her urine for the past two months. She had imaging done, discussed options with the surgeon and is agreeable to surgical intervention. REVIEW OF SYSTEMS: General: No weight loss, malaise or fevers. Neurological: Negative for: headaches, seizures and strokes. Respiratory: Negative for: asthma, COPD, current cough, dyspnea, tobacco use and obstructive sleep apnea. Cardiovascular: Positive for: AICD/PPM (Defibrillator ), anticoagulation therapy, CAD, DVT/PE (LLE ), hyperlipidemia and hypertension Patient's last office visit with liquid chlorine operator, Dr. Unger , The following tests and/or procedures were performed: cardiac stents (x 6- last stent in 2018). Negative for: arrhythmia, atrial fibrillation, chest pain and CHF. GI: Negative for: abdominal pain, dysphagia, nausea and vomiting. : + polycystic kidney disease + dialysis Mon, Tue, Tue Dialysis for 14 years Positive for: hematuria (+ oliguria ) and renal failure. Patient's renal failure is chronic. Negative for: frequent urination and urgency. Endocrine: Negative for: diabetes mellitus, hyperthyroidism, hypothyroidism and hyperparathyroidism. Hematology: Positive for: chronic anti-coagulation/platelet meds. Patient is on anti- coagulation/platelet medication(s): Plavix and Coumadin. Negative for: anemia and bruises/bleeds easily. Oncology: No history of CA metastasis, chemo within 30 days, or radiotherapy within 90 days. No history of oncological symptoms or problems. Psych: Positive for: anxiety and depression. Musculoskeletal: + right knee pain Skin: Negative for lesions, rash and itching. PAST MEDICAL HISTORY Diagnosis Date Anxiety CAD (coronary artery disease) s/p cardiac stent x6 2015; last cardiology visit 12/25/[address] Garvin; pt taking Plavix Depression DVT (deep vein thrombosis) in 2006 pt taking Warfarin ESRD (end stage renal disease) on dialysis (HCC) MWF Hx of cardiovascular stress test 2017 negative for ischemia, EF 70% Hx of echocardiogram 02/2017 EF 60% moderate LVH, no valvular abnormalities- received from [facility]- on hard chart Hyperlipidemia Hypertension Polycystic kidney disease Ventricular tachycardia (HCC) S/P defibrillator 2016 PAST SURGICAL HISTORY Procedure Laterality Date AV FISTULA OR GRAFT VENOUS Left 2016 AV FISTULA REPAIR HX Right 2015 CYST/MOLE REMOVAL benign- on neck CYSTOSCOPY 02/2020 RETROPYELOGRAM FISTULA Left 08/2016 dialysis FISTULA Right 2014 dialysis PAST SURGICAL HISTORY OF Defibrillator placed 2015; generator change 11/2019 PICC LINE PRQ CARDIAC STENT W/ANGIO 1 VSL 2016 6 cardic stents THYROIDECTOMY TOTAL/COMPLETE FAMILY HISTORY Problem Relation Age of Onset Diabetes Mother Diabetes Sister Diabetes Maternal Grandmother Heart Father Kidney Disease Father Heart Brother Kidney Disease Brother Social History Tobacco Use Smoking status: Never Smoker Smokeless tobacco: Never Used Vaping Use Vaping Use: Never used Substance Use Topics Alcohol use: Not Currently Drug use: Never Prior to Admission medications as of 02/11/22 1319 Medication Sig Last Dose Taking gabapentin (NEURONTIN) 600 mg tablet Take 600 mg by mouth daily at bedtime. Taking Yes sevelamer carbonate (RENVELA) 800 mg tablet Take 5 tablets by mouth three times daily with meals. Taking Yes Cholecalciferol, Vitamin D3, 50 mcg (2,000 unit) cap Take by mouth once daily. Taking Yes clopidogrel (PLAVIX) 75 mg tablet Take 75 mg by mouth once daily. Taking Yes zolpidem (AMBIEN) 5 mg tablet Take 10 mg by mouth at bedtime as needed. Taking Yes nitroglycerin sublingual (NITROQUICK) 0.4 mg SL tablet DISSOLVE 1 TAB UNDER THE TONGUE EVERY 5 MINUTES NEEDED FOR CHEST PAIN Taking Yes atorvastatin (LIPITOR) 40 mg tablet TAKE 1 TABLET BY MOUTH EVERY DAY AT BEDTIME FOR CHOLESTEROL Taking Yes metoprolol tartrate, short acting, (LOPRESSOR) 25 mg tablet Take 25 mg by mouth once daily. Taking Yes warfarin (COUMADIN) 7.5 mg tablet Take 7.5 mg by mouth once daily. Taking Yes sertraline (ZOLOFT) 50 mg tablet Take 50 mg by mouth once daily. Taking Yes No medication comments found. ALLERGIES Allergen Reactions Doxercalciferol Other: See Comments, Unknown Unknown Penicillins Hives, Rash [place] Vomiting, Rash Etodolac Rash Sevelamer GI Upset Sulfamethoxazole-Tr* GI Upset, Rash Tramadol Intolerance, Rash Objective PHYSICAL EXAM: General: alert and oriented and healthy appearance. Pertinent negatives noted - not distressed. Skin: normal color, no rash or lesions. HEENT: EOM intact and pupils equal round. Cardiovascular: regular rate and rhythm, normal S1 and S2, no rub, murmurs, or gallop. Respiratory: normal breath sounds, no wheezes or crackles. No chest wall deformity or tenderness. Abdomen: bowel sounds present and soft. Pertinent negatives noted - not tender. Extremities: no deformity, no edema or tenderness, no joint swelling or clubbing. + CAMELIA AV graft- . Neurological: normal cognition and motor skills. Positive for abnormal gait (ambulating with cane ). PAIN ASSESSMENT: VITALS: There were no vitals taken for this visit. Diagnostic tests reviewed for today's visit: No results found for: HBA1C No results found for this or any previous visit (from the past 8760 hour(s)). No results found for this or any previous visit (from the past 48393 hour(s)). Assessment No problem-specific Assessment & Plan notes found for this encounter. Chávez Activity Status Index: METS: Climb a flight of stairs or walk up a hill (5.50 METs) DASI Score: 5.5 Patient denies any chest pain or undue shortness of breath with the above physical activity. Clinical Frailty Scale: 3. Well, with treated comorbid disease ARISCAT Score: Age: 51-80 Preoperative SpO2: >=96% Respiratory infection in the last month: No Preoperative anemia: No Surgical incision: peripheral Duration of surgery: >3 hrs Emergency procedure: No ARISCAT Score: 26 ANESTHESIA FINDINGS: Intubation History: No history of difficult intubation Significant Anesthesia Considerations: none Airway History: No history of difficult airway I - PHYSICAL EVALUATION DENTAL Dental findings: teeth intact and missing tooth/teeth. II - ANESTHESIA PLAN Prepared for Surgery: CONSULTS: The following consults have been initiated at this time: cardiology (letter sent to liquid chlorine operator- pt has stress test and EKG scheduled next 02/18/2022) and primary care/internal medicine (letter sent to PCP ). Planned Anesthetic: The Following Tests/Procedures Have Been Initiated: Orders Placed This Encounter HEMOGLOBIN (HGB) Standing Status: Future Standing Expiration Date: 04/13/2022 HEMATOCRIT (HCT) Standing Status: Future Standing Expiration Date: 04/13/2022 Confirm Blood Type Order Comments: Draw separate from TSCR Standing Status: Future Standing Expiration Date: 04/13/2022 Order Specific Question: Did Blood Bank direct you to place this order: Answer: No - Presurgical Workflow Implantable Devices: cardiac stents x 6 Patient has the following medical conditions which may affect mela-operative course CAD - Stable and medication(s) reviewed. Pt has history of cardiac stents x 6. On plavix. Followingwith cardiology- Dr. Unger. Pt has cardiac clearance appt coming up- scheduled for stress test andEKG next . Instructed to talk to liquid chlorine operator about plavix instructions. CIED - Defibrillator last checked 12/29/2021. . HTN - Well controlled, 121/49. Metoprolol- pt takes at bedtime. Hyperlipidemia- statin Renal Failure - ESRD on HD Hx of DVT LLE- pt has been on coumadin for the past several years for history of LLE DVT- states she has tried to come off of it three times however has not been successful. Managed by PCP. Last INR last Tuesday per pt- between 2-3 no changes made to her dose. Per pt is to hold coumadin for 5 days before procedure- no bridge. Medical clearance appt tomorrow with PCP. Assessment/Plan PLAN Diagnosis: Procedure Diagnosis: Polycystic kidney [Q61.3] Planned Procedure: Procedure(s): XI ROBOTIC LAPAROSCOPIC NEPHRECTOMY RADICAL (Right) The Following Tests/Procedures Have Been Initiated: COVID testing ordered per surgeon. T/S and urine culture ordered per surgeon. CONABO and H/H ordered per AMPOULE SEALER. FERMINICLENS chlorhexidine gluconate wash given with patient instructions. Instructions Given to Patient: Instructions located in the after visit summary. Patient given verbal and written preop instructions and voices comprehension and compliance. SIGNATURE: Anitha Cobian APRN.CNP PATIENT NAME: Spencer Redding DATE: February 11, 2022 TIME: 7:42 AM PAGER/CONTACT #: documented in this encounterC[facility] Instructions* Patient Instructions* Anitha Cobian APRN.CNP - 02/11/2022 1:40 PM EDT PATIENT PREOPERATIVE INSTRUCTIONS Christiano Huntley MD has scheduled you for your procedure at this surgery center: [facility]: [phone], [address], [place] [address] Please read below carefully for your personalized instructions. Arrive at main entrance of hospital. Follow the sign to the blue elevators, the surgery welcome center will be on the left hand side. Date of Surgery:02/22/2022 Time of surgery:8 am Arrival Time for Surgery: 6 am Please be aware that emergency situations arise, which may delay or change your surgical time. If this happens, we will notify you as soon as possible and regret any inconvenience. Dietary Restrictions: -Nothing to eat or drink after midnight except small sip of water with approved medications on AVS. Medications: AVS was given to patient and specific instructions for each medication reviewed. Please continue totake blood pressure medications including day of surgery. Any oral diabetic medications should be held day of surgery. If you are taking insulin please discuss with prescribing physician for pre op instructions. Blood Thinning Medications: - Stop NSAIDS (Ibuprofen, Advil, Aleve, Motrin, Celebrex, Mobic, naproxen, diclofenac, voltaren etc.) 7 days before surgery, as directed by your surgeon. - If you take any of the following blood thinners, please contact your surgeon and the physician who prescribes it for you in order to get perioperative instructions as soon as possible Blood thinners: Aspirin,Coumadin, Plavix, Eliquis, Pradaxa, Xarelto, Lovenox, Brilinta, Effient, Savaysa, etc. - Stop Vitamin E, fish oil, Ginko, Sheila's Wort, flax seed oil, multivitamins, CBD oil, marijuana and other over the counter herbals and dietary supplements 7 days before surgery. This would not apply to cancer patients who are prescribed Marinol or any other prescription form of marijuana or CBD. Please follow up with the provider that manages your diabetes on how to prepare you for surgery. If you are taking the following medications for Type 2 diabetes: Canagliflozin (INVOKANA), dapagliflozin (FARXIGA), and empagliflozin (JARDIANCE) should each be discontinued at least 3 days before scheduled surgery. Ertugliflozin (STEGLATRO) should be discontinued at least four days before scheduled surgery. Pain Medications: - You may take Tylenol (Acetaminophen) or any of your current prescribed pain medications that do not contain aspirin or NSAIDS as needed. Approved medications can be taken the morning of surgery with a sip of water. If you start any new medications after today's visit, please contact the surgeon's office. Important Reminders: - If you use CPAP/BIPAP, bring the machine with you to the surgery center. - If you are prescribed inhalers for breathing, continue using them AND bring them to the surgery center. - Candy, mints, gum and tobacco products are NOT permitted the morning of surgery. - Hearing aids, dentures and glasses may be worn the morning of surgery. - NO jewelry, body piercings, makeup, hairpins or contacts are to be worn the day of surgery. - NO lotion, creams, powders or deodorants on the skin the day of surgery - You will need to have someone else (Family or friend) drive you home once discharged from the hospital. You cannot take a cab or Uber. You are not allowed to drive yourself home after surgery. -If you have a stimulator, implant or pump that requires a remote please bring the remote with you day of surgery. - testing Anesthesia requires testing on all females under the age of 55 without history of tubal ligation or hysterectomy. - If you are scheduled for a COVID vaccine please make sure it is atleast 72 hours before your scheduled surgery. Surgical scrub given day of PST. Please wash with soap either the night before or morning of surgery. Use directly on your skin or with a washcloth. No sponge or loofa. You can use it everywhere except your face. If you are a joint replacement please wash with soap on both the night before and morning of surgery. If you develop symptoms such as a fever, cold, or flu, or have other changes to your health within TWO DAYS of scheduled surgery or the morning of surgery, please contact the surgery center above. Please confirm with your surgeon's office if you need a COVID test prior to your procedure. Currently we are allowing two visitors to accompany you prior to surgery. When you go into surgery your visitors will be able to go the the surgery [facility] if they have a mask on. You are allowed to have one visitor with you back in pre-op. Personal Belongings: - Leave ALL valuables and money at home or with family members. - You will need a form of ID and insurance card to check in the morning of surgery. - You will have to wear a hospital gown during your stay but if you wish to bring undergarments forafter surgery you may. Our anesthesia department recommends reading Prepare for Surgery, Heal Faster: A Guide of [employer] by Carina Mohr prior to surgery. Anitha Cobian APRN.ALFA documented in this encounterC[facility]08-01-2022 Miscellaneous Notes* Telephone Encounter - Laya Cordova - 02/08/2022 1:50 PM EDT I called and spoke with patient. She was at dialysis and said she will call me tomorrow morning to confirm so she can check the dates and write everything down. * Telephone Encounter - Laya Cordova - 02/08/2022 11:55 AM EDT RAL Right Radical Nephrectomy Polycystic kidney PST: 02/11/22 1:40 PM [facility] UCX, H&P, T&S Covid Test: 02/19/22 11:00 AM [facility] Surgery: 02/22/22 8:00 AM [facility] Arrive at 6:00 AM Takes Coumadin & Plavix - stop 5 days prior Surgical Clearance: Trevor Vieyra MD (PCP, manages Warfarin)\ Ernesto Unger MD (Dry Cleaning Machine Operator, manages Plavix) Contact patient to confirm surgery. documented in this encounterC[facility]07-27-2022 History of Present illness Narrative* Christiano Huntley MD - 02/03/2022 10:38 AM EDT HISTORY OF PRESENT ILLNESS: Spencer Redding is a 56 year old female with complaints of recurrent gross hematuria and polycystic kidneys She has end-stage renal disease 01/28/2022: Cystoscopy: Sunset appearing bladder, blood emanating from the right ureteral orifice 02/15/2020: Cystoscopy and pyelograms: (-). 09/02/2015: Cystoscopy and pyelograms: Negative 06/27/2015: Right upper extremity fistula 07/11/2007: Left upper extremity fistula No results found for this basename: uglucpoc,ubilipoc,uketonpoc,usgpoc,uhbpoc,uphpoc,upropoc,uuropoc ,unitpoc,uwbcpoc,ucolpoc,uclarpoc @[email or web address]@ [email or web address] ALLERGIES Allergen Reactions Doxercalciferol Other: See Comments, Unknown Unknown Penicillins Hives, Rash [place] Vomiting, Rash Etodolac Rash Sevelamer GI Upset Sulfamethoxazole-Tr* GI Upset, Rash Tramadol Intolerance, Rash MEDICATIONS: cephALEXin (KEFLEX) 500 mg capsule Take by mouth. gabapentin (NEURONTIN) 600 mg tablet Take 600 mg by mouth twice daily. 1/2 morning and 1 at night sevelamer carbonate (RENVELA) 800 mg tablet Take 4 tablets by mouth three times daily with meals. Cholecalciferol, Vitamin D3, 50 mcg (2,000 unit) cap Take by mouth. clopidogrel (PLAVIX) 75 mg tablet Take 75 mg by mouth once daily. zolpidem (AMBIEN) 5 mg tablet Take 10 mg by mouth at bedtime as needed. nitroglycerin sublingual (NITROQUICK) 0.4 mg SL tablet DISSOLVE 1 TAB UNDER THE TONGUE EVERY 5 MINUTES NEEDED FOR CHEST PAIN atorvastatin (LIPITOR) 40 mg tablet TAKE 1 TABLET BY MOUTH EVERY DAY AT BEDTIME FOR CHOLESTEROL metoprolol tartrate, short acting, (LOPRESSOR) 25 mg tablet Take 12.5 mg by mouth twice daily. warfarin (COUMADIN) 7.5 mg tablet Take 7.5 mg by mouth once daily. sertraline (ZOLOFT) 50 mg tablet Take 50 mg by mouth once daily. HISTORIES PAST MEDICAL HISTORY Diagnosis Date Anxiety CAD (coronary artery disease) s/p cardiac stent x6 2015; last cardiology visit 12/25/[address] Garvin; pt taking Plavix Depression DVT (deep vein thrombosis) in 2006 pt taking Warfarin ESRD (end stage renal disease) on dialysis (HCC) MWF Hx of cardiovascular stress test 2016 negative for ischemia, EF 70% Hx of echocardiogram 02/2017 EF 60% moderate LVH, no valvular abnormalities- received from [facility]- on hard chart Hyperlipidemia Hypertension Polycystic kidney disease Ventricular tachycardia (HCC) S/P defibrillator 2015 PAST SURGICAL HISTORY Procedure Laterality Date CYST/MOLE REMOVAL benign- on neck PAST SURGICAL HISTORY OF Defibrillator placed 2015; generator change 11/2019 PICC LINE PRQ CARDIAC STENT W/ANGIO 1 VSL 6 cardic stents THYROIDECTOMY TOTAL/COMPLETE FAMILY HISTORY Problem Relation Age of Onset Diabetes Mother Diabetes Sister Diabetes Maternal Grandmother Heart Father Kidney Disease Father Heart Brother Kidney Disease Brother Social History Tobacco Use Smoking status: Never Smoker Smokeless tobacco: Never Used Vaping Use Vaping Use: Never used Substance Use Topics Alcohol use: Not Currently Drug use: Never REVIEW OF SYSTEMS: Const: Well appearing, in no acute distress, well-hydrated, well-nourished, alert, awake, oriented to time, place and person. : See HPI The remainder of the ROS was reviewed and is negative. PHYSICAL EXAMINATION: VITAL SIGNS: BP 124/70 Ht 5' 2.5 (1.59m) Wt 199 lb (90.3kg) BMI 35.80 kg/(m^2). General appearance: Well appearing, in no acute distress, well-hydrated, well- nourished, alert, awake, oriented to time, place and person. Heart: RRR with murmur, without gallop, or rubs. No ectopy Lungs: Lungs clear to auscultation. No wheezing, rhonchi, rales Neck: Normal Abdomen: Normal abdominal exam, soft, nontender, Obese I personally reviewed the patient's radiology images and dictation and I agree with the radiologist's opinion. I personally reviewed the patient's laboratory studies. I had an extended discussion with the patient regarding renal lesion and further evaluation modalities including serial ultrasound, CT, MRI and biopsy. I had an extended discussion with the patient regarding renal lesion and treatment options: observation, cryotherapy, RFA (radio frequency ablation), partial and radical nephrectomy with open and laparoscopic technique. I explained that solid masses have approximately 80% chance malignancy. 20-30% of renal malignancies are aggressive. Small lesions (<3cm) have <3% chance spread annually with growth likely <3mm annually. I explained the various possible complications of this surgical procedure. These included perforation of the colon, a possible temporary or permanent colostomy, sudden and chronic blood loss during surgery, possible ureteral injury, swelling of the abdomen post-operatively, post-operative ileus, post-operative infection of the wound, thrombophlebitis, incisional hernia and wound separation. I explained the possibility of lung injury, liver/spleen injury, large and small bowel injury, treatment failure, heart attack, stroke and . IMPRESSION: Polycystic kidney disease with early satiety and abdominal discomfort. Gross hematuria coming from her right kidney. End-stage kidney disease Anuria History of DVT on Coumadin History of coronary stents x5 on Plavix We discussed the risk benefits options and expectations regarding further evaluation treatment. At this point I think she has enough indications to proceed with right radical nephrectomy. She understands that if this happened to log turner to be a urothelial malignancy that the ureteral stump may be left behind. She also understands that she may have an increased chance of complications secondary to interrupting her anticoagulation for both DVT and coronary stents. We have agreed to proceed with right radical nephrectomy as this is the kidney that has been causing her bleeding. She does comment that the left kidney has historically been the 1 that has given her more discomfort. We could always consider left nephrectomy in the future if indicated. PLAN: Robot-assisted laparoscopic right radical nephrectomy Urine culture 10 days preoperatively Clearance from Dr. Vieyra to interrupt Coumadin perioperatively Clearance from Dr. Vanegas to interrupt Plavix perioperatively. We will certainly permit a baby aspirin daily perioperatively Questions were answered and consent was obtained Written and verbal health teaching given to patient, patient verbalizes understanding and agrees with treatment plan. Patient will call if worsening symptoms, no improvement, or any other concerns. Plan discussed. Christiano Huntley MD Electronically Signed: Christiano Huntley MD February 03, 2022 10:38 AM This note was partially created using voice recognition software and is inherently subject to errors including those of syntax and sound-alike substitutions which may escape proofreading. In such instances, original meaning may be extrapolated by contextual derivation. Medical Decision Making: Problems: Moderate: 1+ chronic illnesses with change and 2+ stable chronic illnesses Data: Unique test result(s) reviewed: 2 Unique test(s) ordered: 1 Risk: Moderate: Decision on elective major surgery w/o risk factors Medical Decision Making Level: 4 - Moderate documented in this encounterC[facility]07-22-2022 Miscellaneous Notes* Telephone Encounter - Laya Cordova - 01/29/2022 12:36 PM EDT Cystoscopy & Pyelogram Gross hematuria PST: 02/22/22 1:40 PM [facility] UCx, H&P Surgery: 03/05/22 12:15 PM [facility] Arrive at 10:15 AM Takes Warfarin & Plavix - stop 5 days prior (cleared to stop both 02/05/20, check w/ Dr. Huntley to see if it is okay to use) Surgical Clearance: Trevor Vieyra MD (PCP, manages Warfarin)\ Ernesto Unger MD (Dry Cleaning Machine Operator, manages Plavix) Contact patient to confirm surgery. documented in this encounterCleveland Clinic [facility]07-21-2022 Nurse Note* Magali Terrazas LPN - 01/28/2022 11:55 AM EDT AMBULATORY CYSTOSCOPY PROCEDURE PREOPERATIVE/PROCEDURAL VERIFICATION: Patient verified by: Name and Date of UNIVERSAL PROTOCOL / SAFETY CHECKLIST Procedure to be Performed: Cystoscopy Sign In: A Moment of CARE was completed. Personnel directly involved with the procedure wore the appropriate PPE (Personal Protective Equipment). Patient/Surrogate Stated/Verified: PATIENT VERIFIED(optional for EMERGENT procedures): Patient name, Date of , Relevant allergies and The intended procedure Time Out Communication: Intended patient and procedure match the source documents. Consent documented and matches the intended procedure. Sign Out: SIGN OUT (optional for EMERGENT procedures): No specimen collected. Magali Terrazas LPN Medications and allergies reviewed and updated. Latex Allergy:No Pre-Procedure Antibiotics: Keflex 500 mg orally given during visit @ 10:56 , by patient brought medication with her took in front of this nurse as preventative Pre-Procedure Vital Signs: BP BP 125/64 Pulse 87 Resp 20 Ht 158.8 cm (5' 2.5) Wt 91.6 kg (202 lb) BMI 36.36 kg/m . Current pain intensity is 0 on a scale of 0-10. Patient Prepped with Betadine Scrub to perineum and placement of sterile drape. Anesthetic Given: 6cc 2% Lidocaine Jelly into Urethra. Instruction sheet given and reviewed: Yes Patient verbalizes understanding: Yes Post- procedure Vital Signs: B/P: 135/64 P: 82 R:20 Pain Ratin on a scale of 0 to 10. Specimens: Unable to give urine specimen. Dr notified. Nurse: Magali Terrazas LPN documented in this encounterCleveland Clinic [facility]07-21-2022 Procedure note* Christiano Huntley MD - 01/28/2022 11:26 AM EDT CYSTOSCOPY PROCEDURE NOTE: Spencer Redding is a 56 year old female who presents with Hematuria gross for cystoscopy. Pt ID verified with patient: Yes Procedure verified with patient: Yes Procedure confirmed with physician and product support technician: Yes UNIVERSAL PROTOCOL / SAFETY CHECKLIST Procedure to be Performed: [id number] Sign In: A Moment of CARE was completed. Personnel directly involved with the procedure wore the appropriate PPE (Personal Protective Equipment). Patient/Surrogate Stated/Verified: PATIENT VERIFIED(optional for EMERGENT procedures): Patient name, Date of , Relevant allergies and The intended procedure Time Out Communication: Intended patient and procedure match the source documents. Consent documented and matches the intended procedure. Sign Out: SIGN OUT (optional for EMERGENT procedures): No specimen collected. Christiano Huntley MD A urinalysis was performed revealing no evidence of infection. The benefits, risks, alternatives of the cystoscopy procedure and personnel were discussed with thepatient. The verbal consent was obtained and the patient agrees to proceed. Procedure: The patient was placed on the procedure table in the supine position and prepped and draped in the usual sterile fashion. 2% Lidocaine Jelly was placed per urethra as an anesthetic in the standard fashion. Once adequate local anesthesia was achieved, the tip of the flexible cystoscope was carefully placed into the urethra under direct visual guidance. with no evidence of stricture. Thebladder was entered and careful arrieta endoscopy was carried out. The posterior, superior and lateral hannon and dome of the bladder were all well visualized and the scope was retroflexed upon itself. The findings were consistent with no evidence of bladder mucosal pathology. The findings were consistent with smooth, not trabeculated. At the conclusion of the procedure, the flexible cystoscope was removed atraumatically. The patienttolerated the procedure without complications. Patient was given standard post-procedure instructions, and was directed to complete the course of oral antibiotics and increase oral fluid intake as directed. IMPRESSION: Gross hematuria Polycystic kidneys Anuria LARGE AMOUNT OF NON-ENHANCING BLOOD BYPRODUCTS WITHIN THE MARKEDLY DILATED RIGHT PELVICALYCEAL SYSTEM TO THE LEVEL OF THE UPJ PLAN: Cystoscopy and pyelograms with ureteral barbotage Ureteroscopy is not likely to be possible secondary to her anuria and likely atretic ureters Blood was seen emanating from the right ureteral orifice on today cystoscopy. This is consistent with her MRI findings. Additionally she has significant early satiety, constipation and generalized discomfort from her polycystic kidneys. I think she would be a good candidate for a right nephrectomy once her hematuria work-up is completed Christiano Huntley MD Electronically Signed: Christiano Huntley MD January 28, 2022 11:26 AM This note was partially created using voice recognition software and is inherently subject to errors including those of syntax and sound-alike substitutions which may escape proofreading. In such instances, original meaning may be extrapolated by contextual derivation. documented in this encounterC[facility]-2022 Instructions* Patient Instructions* Magali Terrazas LPN - 01/28/2022 10:41 AM EDT [facility] Department of Urology After your Cystoscopy You have undergone a cystoscopy. Your doctor has inserted a telescope into your urinary bladder through your urethra to view the inside of your bladder. WHAT TO EXPECT: Possible burning during urination and /or blood tinged urine. WHAT TO DO: Resume normal activity and medications. Drink 6-8 glasses of fluid each day for 3 days to help flush your urinary system. MEDICATIONS: You were given Keflex, a preventative antibiotic, prior to the procedure. WHEN TO CALL DOCTOR: IF you have a fever over 100 degrees Farenheit. IF you are unable to urinate IF blood clots form in your urine IF your urine becomes very bloody and does not clear with drinking extra fluids. Please call [facility] office at [phone] M-F 8:00 am to 5:00pm With any questions you may have and ask for the Triage Nurse After 5:00 pm or weekends [phone] Thank you 05/16/13 KW documented in this encounterC[facility]07-19-2022 Miscellaneous Notes* Telephone Encounter - Christiano Huntley MD - 01/26/2022 3:09 PM EDT Need appt * Telephone Encounter - Anastasiia Barrett PSS - 01/26/2022 12:00 PM EDT [facility] called requesting you call their ER physician. Her name is Dr. Padmini Wen and she canbe reached at [phone]. FYI...patient is scheduled for a Cysto with you on 01/28/22. Thank you, Anastasiia Barrett PSS documented in this encounterC[facility]07-17-2022 Miscellaneous Notes* Telephone Encounter - Christiano Huntley MD - 01/24/2022 5:48 PM EDT She needs an appt with me * Telephone Encounter - Deb Howard APRN.W[employer] 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 - 01/22/2022 3:14 PM EDT MRI reviewed Contacted by radiologist. I would like the patient to be seen by Dr. Huntley to discuss the findings and determine if she needs to complete retrograde pyelograms. Please schedule with Dr. Huntley in person or virtual. I contacted the patient regarding her results documented in this encounterC[facility]07-14-2022 History of Present illness Narrative* RT Zhang(R) - 01/21/2022 1:00 PM EDT Radiology Service Progress Note PATIENT NAME: Spencer Redding DATE OF SERVICE: January 21, 2022 TIME: 2:12 PM PATIENT IDENTITY VERIFICATION COMPLETED USING TWO (2) IDENTIFIERS: Name and Date of confirmedby patient verbally. FALL SCREENING: Has the patient had 2 falls in the last year or 1 fall with injury or currently using an Ambulatory Assistive Device (Walker, Cane, Wheelchair, Crutches, etc.)? No PATIENT GENDER DATA: Female. status: : No status: NO. PATIENT RELEVANT IMPLANT DATA REVIEWED: Yes All precautions followed for cardiac device RADIOLOGY DEPARTMENT: MR; Exam(s) Completed: Body: MRUrogram PERIPHERAL IV DATA: Site assessment: Clean,Dry and Intact, Site disposition Discontinued SIGNED BY: RT Zhang(R) January 21, 2022 2:12 PM * Luli Scott RN - 01/21/2022 1:00 PM EDT Radiology Service Progress Note PATIENT NAME: Spencer Redding DATE OF SERVICE: January 21, 2022 TIME: 1:21 PM PATIENT IDENTITY VERIFICATION COMPLETED USING TWO (2) STANDARD IDENTIFIERS: Name and Date of confirmed by patient verbally and Name and Date of confirmed by identification band. PATIENT GENDER DATA: Female. status: : No status: NO. PATIENT RELEVANT IMPLANT DATA REVIEWED: Yes ALLERGIES: Reviewed and unchanged MEDICATIONS REVIEWED: YES PROCEDURE: MRI -ICD IV SITE: Ambulatory: A peripheral IV was started in the Right forearm with a Angio cath: 22 gauge. and A Saline lock was inserted per protocol PERIPHERAL IV ACCESS: Discontinued PATIENT TOLERATED PROCEDURE: Without incident. PATIENT DISCHARGED TO: Home/Self Care SIGNED BY: Luli Scott RN January 21, 2022 1:21 PM * Jany Choudhury RN - 01/21/2022 1:00 PM EDT Radiology Service Progress Note DATE OF SERVICE: January 21, 2022 TIME: 12:26 PM PATIENT WEIGHT: 201LBS PATIENT IDENTITY VERIFICATION COMPLETED USING TWO (2) STANDARD IDENTIFIERS: Name and Date of confirmed by patient verbally and Name and Date of confirmed by identification band. FALL SCREENING: Has the patient had 2 falls in the last year or 1 fall with injury or currently using an Ambulatory Assistive Device (Walker, Cane, Wheelchair, Crutches, etc.)? No PATIENT GENDER DATA: Female. status: : No status: NO. ALLERGIES: Reviewed and unchanged CONTRAST ALLERGY: No EXAM: MRI - CONTRAST TYPE: GROUP II IV SITE: Ambulatory: A peripheral IV was started in the Right forearm with a Angio cath: 22 gauge. and A Saline lock was inserted per protocol IV SITE APPEARANCE: Clean,Dry and Intact SIGNATURE: Jany Choudhury RN PATIENT NAME: Spencer Redding DATE: January 21, 2022 TIME: 12:26 PM documented in this encounterC[facility]07-14-2022 History of Present illness Narrative* RT Addy(R) - 01/21/2022 10:45 AM EDT Radiology Service Progress Note PATIENT NAME: Spencer Redding DATE OF SERVICE: January 21, 2022 TIME: 10:17 AM PATIENT IDENTITY VERIFICATION COMPLETED USING TWO (2) IDENTIFIERS: Name and Date of confirmedby patient verbally. FALL SCREENING: Has the patient had 2 falls in the last year or 1 fall with injury or currently using an Ambulatory Assistive Device (Walker, Cane, Wheelchair, Crutches, etc.)? No PATIENT GENDER DATA: Female. status: : No status: NO. PATIENT RELEVANT IMPLANT DATA REVIEWED: Not Applicable RADIOLOGY DEPARTMENT: General X-ray: Exam(s) Completed: Chest X-Ray PERIPHERAL IV DATA: Not applicable SIGNED BY: RT Addy(R) January 21, 2022 10:17 AM documented in this encounterCleveland Clinic [facility]06-09-2022 Miscellaneous Notes* Telephone Encounter - Dedra Engle RN - 12/17/2021 11:43 AM EDT Patient made aware of message. Aware of plan of care. No other questions. Encounter closed. * Telephone Encounter - Dedra Engle RN - 12/17/2021 11:42 AM EDT ----- Message from Maday Loco APRN.W[employer] 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 sent at 12/16/2021 4:04 PM EDT ----- Deb is out of the office today. Please let her patient know that the urine culture was negative for an infection Maday Loco APRN.ALFA documented in this encounterC[facility] Clinic [facility]06-09-2022 Miscellaneous Notes* Telephone Encounter - Monalisa Delgado - 12/17/2021 8:49 AM EDT Spoke with Spencer and let her know that Deb orderd these tests/procedures for her. I provided the number for her to schedule these and she thanked me for my call * Telephone Encounter - Deb Howard APRN.CNP - 12/16/2021 8:58 PM EDT Please let the patient know that I have placed an order for a mr urogram and cystoscopy. She can call [phone] to schedule. The MR urogram can be done at [facility] if that is better for her. Cystoscopy at [facility] * Telephone Encounter - Monalisa Delgado - 12/16/2021 4:15 PM EDT Made Spencer aware of her negative urine culture. She would like to know what the next steps are regarding her hematuria. Please advise. documented in this encounterC[facility]06-07-2022 History of Present illness Narrative* Deb Howard APRN.CNP - 12/15/2021 10:44 AM EDT Spencer Redding is a 56 year old female who presents today for a follow up for Patient presents with: Blood In Urine CHIEF COMPLAINT & HISTORY OF PRESENT ILLNESS CC: blood in urine 56 year old female with a history of DVT, CAD, hematuria presents today for complaints of gross hematuria that began 6 days ago, she currently is on HD for polycystic disease, 3 times per week, she denies fever, chills, flank pain. She typically voids 2-3 times per day in a very small amount. 04/2020 negative hematuria work up 02/15/2020: Cystoscopy and pyelograms: (-). 09/02/2015: Cystoscopy and pyelograms: Negative Never smoked No family history of urological cancer VITALS: Height 158.8 cm (5' 2.5), weight 91.2 kg (201 lb). ALLERGIES: Doxercalciferol, Penicillins, [place], Etodolac, Sevelamer, Sulfamethoxazole-Trimethoprim, and Tramadol MEDICATIONS: Current Outpatient Medications Medication Sig Dispense Refill gabapentin (NEURONTIN) 600 mg tablet Take 600 mg by mouth twice daily. 1/2 morning and 1 at night sevelamer carbonate (RENVELA) 800 mg tablet Take 4 tablets by mouth three times daily with meals. Cholecalciferol, Vitamin D3, 50 mcg (2,000 unit) cap Take by mouth. clopidogrel (PLAVIX) 75 mg tablet Take 75 mg by mouth once daily. zolpidem (AMBIEN) 5 mg tablet Take 10 mg by mouth at bedtime as needed. nitroglycerin sublingual (NITROQUICK) 0.4 mg SL tablet DISSOLVE 1 TAB UNDER THE TONGUE EVERY 5 MINUTES NEEDED FOR CHEST PAIN atorvastatin (LIPITOR) 40 mg tablet TAKE 1 TABLET BY MOUTH EVERY DAY AT BEDTIME FOR CHOLESTEROL metoprolol tartrate, short acting, (LOPRESSOR) 25 mg tablet Take 12.5 mg by mouth twice daily. warfarin (COUMADIN) 7.5 mg tablet Take 7.5 mg by mouth once daily. sertraline (ZOLOFT) 50 mg tablet Take 50 mg by mouth once daily. No current facility-administered medications for this visit. SOCIAL HISTORY: Social History Tobacco Use Smoking status: Never Smoker Smokeless tobacco: Never Used Vaping Use Vaping Use: Never used Substance Use Topics Alcohol use: Not Currently Drug use: Never PAST MEDICAL HISTORY: PAST MEDICAL HISTORY Diagnosis Date Anxiety CAD (coronary artery disease) s/p cardiac stent x6 2015; last cardiology visit 12/25/[address] Garvin; pt taking Plavix Depression DVT (deep vein thrombosis) in 2006 pt taking Warfarin ESRD (end stage renal disease) on dialysis (HCC) MWF Hx of cardiovascular stress test 2016 negative for ischemia, EF 70% Hx of echocardiogram 02/2017 EF 60% moderate LVH, no valvular abnormalities- received from [facility]- on hard chart Hyperlipidemia Hypertension Polycystic kidney disease Ventricular tachycardia (HCC) S/P defibrillator 2015 PAST SURGICAL HISTORY: PAST SURGICAL HISTORY Procedure Laterality Date CYST/MOLE REMOVAL benign- on neck PAST SURGICAL HISTORY OF Defibrillator placed 2015; generator change 11/2019 PICC LINE PRQ CARDIAC STENT W/ANGIO 1 VSL 6 cardic stents THYROIDECTOMY TOTAL/COMPLETE FAMILY HISTORY: FAMILY HISTORY Problem Relation Age of Onset Diabetes Mother Diabetes Sister Diabetes Maternal Grandmother Heart Father Kidney Disease Father Heart Brother Kidney Disease Brother All histories reviewed on this date 12/15/2021: Yes REVIEW OF SYSTEMS: CONSTITUTIONAL: Patient reports no recent fever or weight loss EYES: Negative for redness, blurry vision, double vision or loss of vision EAR, NOSE AND THROAT: DENIES HAVING: Dysphagia CARDIOVASCULAR: Negative for chest pain. RESPIRATORY: Negative for cough, hemoptysis, wheezing, COPD, dyspnea or shortness of breath GI: No nausea, vomiting, or diarrhea MUSCULOSKELETAL: denies back pain or muscular weakness SKIN: Negative for lesions, rash, and itching PSYCH: Negative for sleep disturbance, mood disorder and recent psychosocial stressors. HEMATOLOGY/LYMPHOLOGY Negative for prolonged bleeding, bruising easily or swollen nodes ENDOCRINE: Negative for cold or heat intolerance, polyuria, polydipsia and goiter All other systems reviewed and are negative other than HPI. PHYSICAL EXAM: constitutional: appears healthy in no acute distress respiratory: normal respiratory motion gi: abdomen soft, non-tender without masses, hernia or organomegaly gu: bladder: not palpable, no tenderness. no CVAT Neuro: Gait normal. Sensation grossly intact. RADIOLOGY REPORTS REVIEWED: Yes LAB RESULTS REVIEWED: Yes IMAGING STUDIES INDEPENDENTLY REVIEWED: No OLD RECORDS REVIEWED: Yes: Extensive: No ASSESSMENT/PLAN: ASSESSMENT/PLAN: 1. Gross hematuria - ICD9: 599.71, ICD10: R31.0 (primary diagnosis) -rule out infection if negative then she will need a MR urogram and cystoscopy -last hematuria work up in 2019 was negative -currently on plavix and coumadin - URINE CULTURE 2. Polycystic kidney, unspecified - ICD9: 753.12, ICD10: Q61.3 -noted -currently on HD -no recent labs in [facility] - URINE CULTURE Patient is instructed to schedule a follow up based on results Deb Howard APRN.ALFA documented in this encounterCleveland [facility]03-16-2022 Hospital Discharge instructions* Instructions* Michelle Cole, RN - 09/23/2021 Fistulagram Hemodialysis Access: What to Expect at Home You have had a procedure to evaluate your fistula or graft. These instructions will help you to care for the procedure site(s), tell you what you can and cannot do, and give you helpful information when you are at home. Hemodialysis is a way to remove wastes from the blood when your kidneys can no longer do the job. It is not a cure, but it can help you live longer and feel better. It is a lifesaving treatment when you have kidney failure. Hemodialysis is often called dialysis. Your doctor created a place (called an access or fistula) in your arm for your blood to flow in and out of your body during your dialysis sessions. You should always be able to feel blood rushing through the fistula or graft. It feels like a slight vibration when you put your fingers on the skin over the fistula or graft. This feeling is called a thrill or pulse. How can you care for yourself at home? Rest when you feel tired. Getting enough sleep will help you recover. Do not lie on or sleep on thearm with the access. Avoid activities such as washing windows or gardening that put stress on the arm with the access. You may use your arm, but do not lift anything that weighs more than about 5 pounds for 24 hours.. This may include a child, heavy grocery bags, a heavy briefcase or backpack, cat litter or dog food bags, or a vacuum graffiti cleaner. Your dressing will be removed at your next dialysis treatment. If there are stitches, they may be removed by your dialysis nurse after your next dialysis treatment or they may request that you return to Special Procedures for suture removal. If there is a small pad that is dried and crusted, it may be gently soaked and removed with your next dialysis treatment. If your dressing gets soaked with blood, apply pressure, and go to the nearest Emergency room. Soreness or tenderness can last up to a week A small (quarter size) spot with blood from your incision is normal Bruising can last up to two weeks Diet Follow an eating plan that is good for your kidneys. A registered dietitian can help you make a meal plan that is right for you. You may need to limit protein, salt, fluids, and certain foods Other instructions Every day, check your access for a pulse or thrill in the fistula or graft area. A thrill is a vibration. To feel a pulse or thrill, place the first two fingers of your hand over the access. Do not bump your arm. Do not wear tight clothing, jewelry, or anything else that may squeeze the access. Use your other arm to have blood drawn or blood pressure taken. Do not put cream or lotion on or near the access. Make sure all doctors you deal with know you have a vascular access. Follow-up care is a lam part of your treatment and safety. Be sure to make and go to all appointments, and call your doctor if you are having problems. It's also a good idea to know your test resultsand keep a list of the medicines you take. When should you call for help? Call 911 anytime you think you may need emergency care. For example, call if: You passed out (lost consciousness). You have severe trouble breathing. You have sudden chest pain and shortness of breath, or you cough up blood. You have a rapid pulse or heartbeat. Call your doctor now or seek immediate medical care if: Your hand or arm is cold or dark-colored. You have sudden bulging around your access. You have no pulse or thrill in your access, or you hear no sound of blood in your access. Bleeding after dialysis lasts longer than usual. You have severe pain that does not get better after you take pain medicine. You have a fever over 100 F. You have signs of infection, such as: Increased pain, swelling, warmth, or redness. Red streaks leading from the incision. Pus draining from the incision. Swollen lymph nodes in your neck, armpits, or groin. A fever. Watch closely for changes in your health, and be sure to contact your doctor if you have any problems. If you have any questions or problems following your procedure, please call: Special Procedures at . After hours (before 7 am and after 4 pm) call and ask for the Interventional Radiologist division road supervisor. Where can you learn more? Go to [email or web address] and sign in to your [employer] account. Enter P616 in the Search Health Information box to learn more about Hemodialysis Access: What to Expect at Home. If you do not have an account, please click on the Sign Up Now link. Current as of: May 26, 2016 Content Version: 11.2 5180-9137 [employer]. Care instructions adapted under license by [employer]. If youhave questions about a medical condition or this instruction, always ask your healthcare professional. [employer] disclaims any warranty or liability for your use of this information. SEDATION / ANALGESIA INFORMATION / HOME GOING ADVICE You have received the sedation/analgesia medication during your visit Sedation/analgesia is used during short medical procedures under controlled supervision. The medication will produce a strong relaxation. You will be able to hear, speak and follow instructions, but your memory and alertness will be decreased. You will be able to swallow and breathe on your own. During sedation/analgesia your blood pressure,heart and breathing will be watched closely. After the procedure, you may not remember what was said or done. You may have the following effects from the medication. Drowsiness, dizziness, sleepiness or confusion. Difficulty remembering or delayed reaction times. Loss of fine muscle control or difficulty with your balance especially while walking. Difficulty focusing or blurred vision. You may not be aware of slight changes in your behavior and/or your reaction time because of the medication used during the procedure. Therefore you should follow these instructions. Have someone responsible help you with your care. Do not drive for 24 hours. Do not operate equipment for 24 hours (lawnmowers, power tools, kitchen accessories, stove). Do not drink any alcoholic beverages for a minimum of 24 hours. Do not make important personal, legal or business decisions for 24 hours. You may experience dizziness or lightheadedness. Move slowly and carefully, do not make sudden position changes. Drink extra amounts of fluids today. Increase your diet as tolerated (unless you have received specific instructions from your doctor). If you feel nauseated, continue with liquids until the nausea is gone. Notify your physician if you have not urinated within 8 hours after the procedure. Resume your medications unless otherwise instructed. Contact your physician if you have any questions or concerns. You may contact Special Procedures at with any questions or concerns. After hours (before 7 am and after 5 pm) call and ask for the Interventional Radiologist division road supervisor. IF YOU REPORT TO AN EMERGENCY ROOM, DOCTOR'S OFFICE OR HOSPITAL WITHIN 24 HOURS AFTER YOUR PROCEDURE, BRING THIS SHEET AND YOUR AFTER VISIT SUMMARY WITH YOU AND GIVE IT TO THE PHYSICIAN OR NURSE ATTENDING YOU. documented in this encounterSUMMA Work Phone: [phone]) 432-563603-16-2022 History of Present illness Narrative* Michelle Cole RN - 09/23/2021 1:49 PM EDT Patient arrived from [facility], Dr. Sauceda in to speak with the patient regarding CAMELIA fistulagram, consent obtained. Patient was placed supine on exam table prepped and draped in sterile fashion. Telemetry monitors placed, 2L NC, continuous VS and conscious sedation administered. Pt remained stabke throughout procedure. Sutures placed at completion and dressing applied. Site hemostatic. Patient tolerated procedure well. Education and discharge instructions attached and reviewed with patient. All questions answered and patient verbalizes understanding. Transfer to IR observation for discharge. documented in this [facility] Work Phone: 1(818) 240-567012-14-2021 NotePap Smear Specimen AdequacyDecember 2020 10:17aommentSatisfactory for evaluation. Endocervical and/or squamous metaplasticcells (endocervical component)are present.[facility] INTERFACED A#[id number] Work Phone: Comment on above:Satisfactory for evaluation. Endocervical and/or squamous metaplasticcells (endocervical component)are present.11-22-2019 Evaluation note* Diagnosis Onset Date Resolution Status Atherosclerosis of coronary artery of [place] heart without angina pectoris chronic Benign essential hypertension chronic History of implantable cardiac defibrillator (ICD) November 22, 2019 chronic Hyperlipidemia chronic [facility] Work Phone: [phone]) 263-401505-14-2020 Evaluation note* Diagnosis Onset Date Resolution Status History of DVT (deep vein thrombosis) acute Hypotension acute Atherosclerosis of coronary artery of [place] heart without angina pectoris chronic History of implantable cardiac defibrillator (ICD) November 22, 2019 chronic Hyperlipidemia chronic [facility] Work Phone: Evaluation noteNo assessment information available [facility] Work Phone: Evaluiqopn note* Diagnosis Gross hematuria- Primary Polycystic kidney, unspecified documented in this encounter [facility]* Diagnosis Gross hematuria- Primary documented in this [facility] Diagnosis Microscopic hematuria [facility] Diagnosis Gross hematuria- Primary Polycystic kidney, unspecified Hydronephrosis of right kidney Hydronephrosis [facility] Diagnosis Gross hematuria- Primary Gross hematuria [facility] Diagnosis Polycystic kidney- Primary Polycystic kidney, unspecified type [facility] Diagnosis Gross hematuria- Primary Polycystic kidney Polycystic kidney, unspecified type 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) Early satiety Abdominal pain, unspecified abdominal location [facility] Diagnosis Obesity, Class II, BMI 35-39.9 Obesity, unspecified Pre-op exam- Primary Preoperative examination, unspecified Polycystic kidney disease Polycystic kidney, unspecified type Coronary artery disease involving [place] heart without angina pectoris, unspecified vessel or lesion type Primary hypertension Unspecified essential hypertension Hyperlipidemia, unspecified hyperlipidemia type Stage 5 chronic kidney disease not on chronic dialysis (HCC) History of DVT (deep vein thrombosis) Personal history of venous thrombosis and embolism Polycystic kidney Polycystic kidney, unspecified type documented in this encounter [facility] note* Diagnosis Polycystic kidney- Primary Polycystic kidney, unspecified type Gross hematuria documented in this encounter [facility] note* Diagnosis Polycystic kidney- Primary Polycystic kidney, unspecified type Abdominal pain, unspecified abdominal location documented in this encounter [facility] note* Diagnosis Polycystic kidney- Primary Polycystic kidney, unspecified type Polycystic kidney Polycystic kidney, unspecified type documented in this encounter [facility] note* Diagnosis Obesity, Class I, BMI 30-34.9 Obesity, unspecified Preop examination Preoperative examination, unspecified Polycystic kidney Polycystic kidney, unspecified type Cardiac defibrillator in place Automatic implantable cardiac defibrillator in situ Atherosclerosis of [place] coronary artery of [place] heart without angina pectoris Mixed hyperlipidemia End-stage renal disease (HCC) End stage renal disease Polycystic kidney Polycystic kidney, unspecified type documented in this encounter [facility] note* Diagnosis Polycystic kidney, unspecified- Primary documented in this encounter [facility] note* Diagnosis Polycystic kidney Polycystic kidney, unspecified type documented in this encounter [facility] note* Diagnosis Ventricular tachycardia (HCC) Paroxysmal ventricular tachycardia Encounter for adjustment or management of cardiac device documented in this encounter [facility] note* Diagnosis Ventricular tachycardia (HCC)- Primary Paroxysmal ventricular tachycardia Encounter for adjustment or management of cardiac device documented in this encounter [facility] Discharge instructions Additional Instructions [facility] Hospital Discharge instructions Additional Instructions Take the digoxin every other day starting 2 days from now. You will need to have a digoxin level checked. Follow-up with your liquid chlorine operator in approximately 2 to 3 weeks. 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 Advance Directives and Living Will Power of Produce Service Team Member Latest Code Status on File Code Status Date Activated Date Inactivated Comments Full Code 11/22/2019 10:17 AM Full Code 11/22/2019 7:25 AM 11/22/2019 10:17 AM Documents on File Type Date Recorded Patient Gas Cutting Machine Operator Expl anation ACP-Advance Directive ACP-Power of Produce Service Team Member Latest Code Status on File Code Status Date Activated Date Inactivated Comments Full Code 11/22/2019 10:17 AM 11/22/2019 4:07 PM Advance Directive Response Recorded Date/ Time Advance Directives No June 3:58pm Living Will No December 11, 2019 1 :17am Power of Produce Service Team Member No December 11, 2019 1:17am Documents on File Type Date Recorded Patient Gas Cutting Machine Operator Expl anation Advance Directive(s) 02/15/2020 8:23 AM Documents on File Type Date Recorded Patient Gas Cutting Machine Operator Expl anation Advance Directive(s) 02/15/2020 8:23 AM Advance Directive Response Recorded Date/ Time Advance Directives No June 3:58pm Living Will No January 26, 2022 10:22am Power of Produce Service Team Member No January 26 10:22am Advance Directive Response Recorded Date/ Time Advance Directives No June 3:58pm Living Will No January 30, 2022 4:19pm Power of Produce Service Team Member No January 30 4:19pm Advance Directive Response Recorded Date/ Time Name of Medical Power of Produce Service Team Member Katrin, sister, Jaquelin-daughter March 15, 2022 8:30am Advance Directives No June 3:58pm Living Will No March 15 8:30am Power of Produce Service Team Member Yes March 15, 2022 8:30am Advance Directive Response Recorded Date/ Time Name of Medical Power of Produce Service Team Member Katrin, sister, Jaquelin-daughter March 15, 2022 7:30am Advance Directives No June 2:58pm Living Will No Sara 5th, 2 022 7:30am Power of Produce Service Team Member Yes March 15, 2022 7:30am Advance Directive Response Recorded Date/ Time Advance Directives No June 2:58pm Living Will No March 15, 2 022 7:30am Power of Produce Service Team Member Yes March 15, 2022 7:30am Advance Directive Response Recorded Date/ Time Advance Directives No June 3:58pm Living Will No March 15, 022 8:30am Power of Produce Service Team Member Yes March 15, 2022 8:30am Documents on File Type Date Recorded Patient Gas Cutting Machine Operator Expl anation Advance Directive(s) 02/28/2023 10:29 AM Advance Directive Response Recorded Date/ Time Name of Medical Power of Produce Service Team Member Katrin Cardoza & Jaquelin Redding March 16, 2023 2:11pm Advance Directives No June 3:58pm Living Will No March 16, 023 2:11pm Power of Produce Service Team Member Yes March 16, 2023 2:11pm Documents on File Type Date Recorded Patient Gas Cutting Machine Operator Expl anation Advance Directive(s) 02/28/2023 10:29 AM Advance Directive Response Recorded Date/ Time Name of Medical Power of Produce Service Team Member Katrin Cardoza & Jaquelin Redding March 16, 2023 1:11pm Advance Directives No June 2:58pm Living Will No March 16, 2 023 1:11pm Power of Produce Service Team Member Yes March 16, 2023 1:11pm Advance Directive Response Recorded Date/ Time Advance Directives No June 2:58pm Living Will No March 16, 2 023 1:11pm Power of Produce Service Team Member Yes March 16, 2023 1:11pm Advance Directive Response Recorded Date/ Time Advance Directives No June 3:58pm Living Will No March 16, 2 023 2:11pm Power of Produce Service Team Member Yes March 16, 2023 2:11pm Advance Directive Response Recorded Date/ Time Living Will No August 11 3:25am Power of Produce Service Team Member Yes August 11, 2024 3:25am Living Will No September 08, 2024 2:19am Power of Produce Service Team Member Yes September 08 2:19am Living Will No March 16, 2 023 2:11pm Power of Produce Service Team Member Yes March 16, 2023 2:11pm Living Will No June 10 1:53am Power of Produce Service Team Member Yes June 10, 2024 1:53am Living Will No July 08 024 5:43pm Power of Produce Service Team Member Yes July 08, 2024 5:43pm Name of Medical Power of Produce Service Team Member LIZZETH July 08, 2024 5:43pm Living Will No July 11 1:48am Power of Produce Service Team Member Yes July 11 025 1:48am Living Will No September 17, 2024 4:34pm Power of Produce Service Team Member No September 17 4:34pm Advance Directives No June 3:58pm Advance Directive Response Recorded Date/ Time Living Will No August 11 3:25am Do you have a Healthcare Power of Produce Service Team Member? Yes August 11, 2024 3:25am Living Will No September 08, 2024 2:19am Do you have a Healthcare Power of Produce Service Team Member? Yes September 08, 2024 2:19am Living Will No June 10 1:53am Do you have a Healthcare Power of Produce Service Team Member? Yes June 10, 2024 1:53am Living Will No July 08 024 5:43pm Do you have a Healthcare Power of Produce Service Team Member? Yes July 08, 2024 5:43pm Name of Medical Power of Produce Service Team Member LIZZETH July 08, 2024 5:43pm Living Will No July 11 1:48am Do you have a Healthcare Power of Produce Service Team Member? Yes July 11, 2024 1:48am Living Will No September 17, 2024 4:34pm Do you have a Healthcare Power of Produce Service Team Member? No September 17, 2024 4:34pm Advance Directives No June 3:58pm Advance Directive Response Recorded Date/ Time Living Will No August 11 3:25am Do you have a Healthcare Power of Produce Service Team Member? Yes August 11, 2024 3:25am Living Will No September 08, 2024 2:19am Do you have a Healthcare Power of Produce Service Team Member? Yes September 08, 2024 2:19am Living Will No July 08 024 5:43pm Do you have a Healthcare Power of Produce Service Team Member? Yes July 08, 2024 5:43pm Name of Medical Power of Produce Service Team Member LIZZETH July 08, 2024 5:43pm Living Will No July 11 1:48am Do you have a Healthcare Power of Produce Service Team Member? Yes July 11, 2024 1:48am Living Will No September 17, 2024 4:34pm Do you have a Healthcare Power of Produce Service Team Member? No September 17, 2024 4:34pm Living Will No October 09, 2024 12:21am Do you have a Healthcare Power of Produce Service Team Member? Yes October 09, 2024 12:21am Advance Directives No June 3:58pm Advance Directive Response Recorded Date/ Time Living Will No August 11 3:25am Do you have a Healthcare Power of Produce Service Team Member? Yes August 11, 2024 3:25am Living Will No September 08, 2024 2:19am Do you have a Healthcare Power of Produce Service Team Member? Yes September 08, 2024 2:19am Living Will No September 17, 2024 4:34pm Do you have a Healthcare Power of Produce Service Team Member? No September 17, 2024 4:34pm Living Will No October 09, 2024 12:21am Do you have a Healthcare Power of Produce Service Team Member? Yes October 09, 2024 12:21am Living Will No November 08, 2024 12 :29am Do you have a Healthcare Power of Produce Service Team Member? Yes November 08, 2024 12:29am Advance Directives No June 3:58pm Advance Directive Response Recorded Date/ Time Living Will No September 08, 2024 2:19am Do you have a Healthcare Power of Produce Service Team Member? Yes September 08, 2024 2:19am Living Will No December 09, 2024 1 2:35am Do you have a Healthcare Power of Produce Service Team Member? Yes December 09, 2024 12:35am Living Will No September 17, 2024 4:34pm Do you have a Healthcare Power of Produce Service Team Member? No September 17, 2024 4:34pm Living Will No October 09, 2024 12:21am Do you have a Healthcare Power of Produce Service Team Member? Yes October 09, 2024 12:21am Living Will No November 08, 2024 12 :29am Do you have a Healthcare Power of Produce Service Team Member? Yes November 08, 2024 12:29am Advance Directives No June 3:58pm Advance Directive Response Recorded Date/ Time Living Will No December 09, 2024 1 2:35am Do you have a Healthcare Power of Produce Service Team Member? Yes December 09, 2024 12:35am Living Will No October 09, 2024 12:21am Do you have a Healthcare Power of Produce Service Team Member? Yes October 09, 2024 12:21am Living Will No November 08, 2024 12 :29am Do you have a Healthcare Power of Produce Service Team Member? Yes November 08, 2024 12:29am Advance Directives No June 3:58pm Advance Directive Response Recorded Date/ Time Living Will No December 09, 2024 1 2:35am Do you have a Healthcare Power of Produce Service Team Member? Yes December 09, 2024 12:35am Living Will No November 08, 2024 12 :29am Do you have a Healthcare Power of Produce Service Team Member? Yes November 08, 2024 12:29am Advance Directives No June 3:58pm Discharge Instructions * Instructions* Nikky Meza RN - 11/13/2019 Fistulagram Hemodialysis Access: What to Expect at Home You have had a procedure to evaluate your fistula or graft. These instructions will help you to care for the procedure site(s), tell you what you can and cannot do, and give you helpful information when you are at home. Hemodialysis is a way to remove wastes from the blood when your kidneys can no longer do the job. It is not a cure, but it can help you live longer and feel better. It is a lifesaving treatment when you have kidney failure. Hemodialysis is often called dialysis. Your doctor created a place (called an access or fistula) in your arm for your blood to flow in and out of your body during your dialysis sessions. You should always be able to feel blood rushing through the fistula or graft. It feels like a slight vibration when you put your fingers on the skin over the fistula or graft. This feeling is called a thrill or pulse. How can you care for yourself at home? Rest when you feel tired. Getting enough sleep will help you recover. Do not lie on or sleep on thearm with the access. Avoid activities such as washing windows or gardening that put stress on the arm with the access. You may use your arm, but do not lift anything that weighs more than about 5 pounds for 24 hours.. This may include a child, heavy grocery bags, a heavy briefcase or backpack, cat litter or dog food bags, or a vacuum graffiti cleaner. Your dressing will be removed at your next dialysis treatment. If there are stitches, they may be removed by your dialysis nurse after your next dialysis treatment or they may request that you return to Special Procedures for suture removal. If there is a small pad that is dried and crusted, it may be gently soaked and removed with your next dialysis treatment. If your dressing gets soaked with blood, apply pressure, and go to the nearest Emergency room. Soreness or tenderness can last up to a week A small (quarter size) spot with blood from your incision is normal Bruising can last up to two weeks Diet Follow an eating plan that is good for your kidneys. A registered dietitian can help you make a meal plan that is right for you. You may need to limit protein, salt, fluids, and certain foods Other instructions Every day, check your access for a pulse or thrill in the fistula or graft area. A thrill is a vibration. To feel a pulse or thrill, place the first two fingers of your hand over the access. Do not bump your arm. Do not wear tight clothing, jewelry, or anything else that may squeeze the access. Use your other arm to have blood drawn or blood pressure taken. Do not put cream or lotion on or near the access. Make sure all doctors you deal with know you have a vascular access. Follow-up care is a lam part of your treatment and safety. Be sure to make and go to all appointments, and call your doctor if you are having problems. It's also a good idea to know your test resultsand keep a list of the medicines you take. When should you call for help? Call 911 anytime you think you may need emergency care. For example, call if: You passed out (lost consciousness). You have severe trouble breathing. You have sudden chest pain and shortness of breath, or you cough up blood. You have a rapid pulse or heartbeat. Call your doctor now or seek immediate medical care if: Your hand or arm is cold or dark-colored. You have sudden bulging around your access. You have no pulse or thrill in your access, or you hear no sound of blood in your access. Bleeding after dialysis lasts longer than usual. You have severe pain that does not get better after you take pain medicine. You have a fever over 100 F. You have signs of infection, such as: Increased pain, swelling, warmth, or redness. Red streaks leading from the incision. Pus draining from the incision. Swollen lymph nodes in your neck, armpits, or groin. A fever. Watch closely for changes in your health, and be sure to contact your doctor if you have any problems. If you have any questions or problems following your procedure, please call: Special Procedures at . After hours (before 7 am and after 4 pm) call and ask for the Interventional Radiologist division road supervisor. Where can you learn more? Go to [email or web address] and sign in to your [employer] account. Enter P616 in the Search Health Information box to learn more about Hemodialysis Access: What to Expect at Home. If you do not have an account, please click on the Sign Up Now link. Current as of: May 26, 2016 Content Version: 11.2 9238-5055 [employer]. Care instructions adapted under license by [employer]. If youhave questions about a medical condition or this instruction, always ask your healthcare professional. [employer] disclaims any warranty or liability for your use of this information. documented in this encounter* Instructions* Radha [facility], ANDI - WIRE FRAME 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 - 11/22/2019 Generator Change Discharge Instructions Incision Care: 1. Keep original bandage on. Remove it on__11/27/2019 . Leave incision open to air. Donot remove steri-strips (tape) from incision line if present. Do not put any creams, powders or ointments on incision. Allow steri- strips to fall off naturally. If still on 10 days post-op may remove. 2. If you have a pressure dressing (rodas colored, elastic tape covering your shoulder) remove this when you get home. Pull the tape off slowly to avoid skin tears. There will be another dressing underneath-leave this one on for 5 days. 3. You may take a sponge bath up until __11/24/19 , and then you may shower. 4. Observe area for redness, swelling or drainage. If these symptoms occur, notify the device clinic immediately. [phone]. 5. If the area around your generator/incision becomes painful to touch after early soreness has gone away, or if you experience chills or fever, notify the device clinic immediately 6. For bleeding that does not stop or increased swelling, come to the Emergency Department. Sedation: 1. If you have received sedation: you must have someone drive you home 2. You should not drive a car, operate machinery, drink alcohol or perform any activity that requires alertness for the rest of the day. The effects of the sedative should resolve by tomorrow. Activity: 1. Activity may be gradually increased as tolerated. 2. You may resume driving in 3-4 days or as instructed by your doctor. 3. Always avoid activity that involves rough contact with the upper chest area. Follow up care and appointments: 1. Take all your medications as prescribed by your doctor Please have your INR checked 11/26/2019. documented in this encounter History of Present Illness * Ruth Santiago RN - 11/13/2019 12:30 PM EDT Patient arrived ambulatory and ID verified. Vital signs stable. Call light in reach. Denies nausea and vomiting. Daughter at bedside. Pt states has defibrillator that is at 16% per last check. Info passed to anesthesia. documented in this encounter Assessments Diagnosis Acute pain Other acute pain Cardiac defibrillator in place Automatic implantable cardiac defibrillator in situ Chief Complaint and Reason for Visit Chief Complaint Admit Date S/P [facility] 09/17October 11, 2024 9:07 am Reason for Visit Admit Date History of DVT (deep vein thrombosis) Ap ril 2024 9:07am Hypotension October 11, 2024 9:07 am Paroxysmal atrial fibrillation October 9:07am History of implantable cardiac defibrill ator (ICD) October 11, 2024 9:07am Hyperlipidemia October 11, 2024 9:07 am History of coronary artery stent placeme nt October 11, 2024 9:07am Chief Complaint Admit Date high heart rate September 17, 2024 4:0 7pm S/P [facility] 09/17October 11, 2024 9:07 am Chief Complaint 6-8 MO 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 Reason for Visit Atherosclerosis of c oronary artery of [place] heart without angina pectoris Benign essential hypertension History of implantable cardiac defibrillator (ICD) Hyperlipidemia Chief Complaint DX-ESRD Chief Complaint DX-ESRD SCREENING ABNORMAL MAMMOGRAM Chief Complaint DX-ESRD SCREENING ABNORMAL MAMMOGRAM HEMATURIA Chief Complaint DX-ESRD SCREENING ABNORMAL MAMMOGRAM HEMATURIA UNABLE TO URINATE Chief Complaint DX-ESRD SCREENING ABNORMAL MAMMOGRAM HEMATURIA UNABLE TO URINATE DX-HEMATURIA Chief Complaint DX-ESRD SCREENING ABNORMAL MAMMOGRAM HEMATURIA UNABLE TO URINATE DX-HEMATURIA CAD LEXISCAN Chief Complaint DX-ESRD SCREENING ABNORMAL MAMMOGRAM HEMATURIA UNABLE TO URINATE DX-HEMATURIA CAD LEXISCAN SOB Chief Complaint SCREENING ABNORMAL MAMMOGRAM HEMATURIA UNABLE TO URINATE DX-HEMATURIA CAD LEXISCAN SOB 1 Y FU/ was in ER 03-15-22 Reason for Visit Atherosclerosis of c oronary artery of [place] heart without angina pectoris Benign essential hypertension History of implantable cardiac defibrillator (ICD) Hyperlipidemia Chief Complaint CAD LEXISCAN SOB 1 Y FU/ was in ER 03-15-22 Reason for Visit Atherosclerosis of c oronary artery of [place] heart without angina pectoris Benign essential hypertension History of implantable cardiac defibrillator (ICD) Hyperlipidemia Chief Complaint 6 M FU Reason for Visit History of DVT (deep vein thrombosis) Hypotension Atherosclerosis of coronary artery of [place] heart without angina pectoris History of implantable cardiac defibrillator (ICD) Hyperlipidemia Chief Complaint FU PER MMM Reason for Visit History of DVT (deep vein thrombosis) Hypotension Atherosclerosis of coronary artery of [place] heart without angina pectoris History of implantable cardiac defibrillator (ICD) Hyperlipidemia Chief Complaint FU PER MMM palpitations Reason for Visit History of DVT (deep vein thrombosis) Hypotension Atherosclerosis of coronary artery of [place] heart without angina pectoris History of implantable cardiac defibrillator (ICD) Hyperlipidemia Chief Complaint palpitations BILATERAL HAND PARESTHESIA. RX HERE 1 Y FU/PREV PFM BILAT UPPER EXT PARESTHESIA BILAT UPPER EXT PARESTHESIA Reason for Visit History of DVT (deep vein thrombosis) Hypotension Atherosclerosis of coronary artery of [place] heart without angina pectoris History of implantable cardiac defibrillator (ICD) Hyperlipidemia Chief Complaint BILATERAL HAND PARES THESIA. RX HERE 1 Y FU/PREV PFM BILAT UPPER EXT PARESTHESIA BILAT UPPER EXT PARESTHESIA Reason for Visit History of DVT (deep vein thrombosis) Hypotension Atherosclerosis of coronary artery of [place] heart without angina pectoris History of implantable cardiac defibrillator (ICD) Hyperlipidemia Chief Complaint Admit Date PALPATION July 08, 2024 4:36pm ST/COUGH/SINUS COMP/MOHAMUD August 21 8:45am high heart rate September 17, 2024 4:0 7pm Chief Complaint Admit Date PALPATION July 08, 2024 4:36pm ST/COUGH/SINUS COMP/MOHAMUD August 21 8:45am high heart rate September 17, 2024 4:0 7pm S/P [facility] 09/17October 11, 2024 9:07 am Chief Complaint Admit Date ST/COUGH/SINUS COMP/MOHAMUD August 21 8:45am high heart rate September 17, 2024 4:0 7pm S/P [facility] 09/17October 11, 2024 9:07 am Reason for Referral Specialty Diagnoses / Procedures Referred By Contac t Referred To Contact MR IMAGING Diagnoses Gross hematuria Procedures MRI PELVIS URO WO/W IVCON MRI PELVIS W/O & W/CONTRAST MATERIAL Deb Howard, 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 [address] [place] [address] Mr Imaging Referral ID Status Reason Start Date Expiration Date Visits Requested Visits Authorized [id number] Pending Review Auto-Generat ed Referral 12/16/2021 01/15/2023 1 1 Specialty Diagnoses / Procedures Referred By Contac t Referred To Contact MR IMAGING Diagnoses Gross hematuria Procedures MRI ABDOMEN URO WO/W IVCON MRI ABDOMEN W/O & W/CONTRAST MATERIAL Deb Howard, 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 [address] [place] [address] Mr Imaging Referral ID Status Reason Start Date Expiration Date Visits Requested Visits Authorized [id number] Pending Review Auto-Generat ed Referral 12/16/2021 01/15/2023 1 1 Referral ID Status Reason Start Date Expiration Date V isits Requested Visits Authorized [id number] Closed Auto-Generate d Referral 12/16/2021 01/15/2023 1 1 Referral ID Status Reason Start Date Expiration Date V isits Requested Visits Authorized [id number] Closed Auto-Generate d Referral 12/16/2021 01/15/2023 1 1 Specialty Diagnoses / Procedures Referred By Contac t Referred To Contact CT IMAGING Diagnoses Polycystic kidney Procedures CT ABD/PEL WO IVCON CT ABD & PELVIS W/O CONTRAST Christiano Huntley MD [address] [place] [address] Ct Imaging Referral ID Status Reason Start Date Expiration Date Visits Requested Visits Authorized [id number] Pending Review Auto-Generat ed Referral 02/10/2023 03/11/2024 1 1 Specialty Diagnoses / Procedures Referred By Contac t Referred To Contact CT IMAGING Diagnoses Polycystic kidney Procedures CT ABD/PEL WO IVCON CT ABD & PELVIS W/O CONTRAST Christiano Huntley MD [address] [place] [address] Ct Imaging [id number] Referral ID Status Reason Start Date Expiration Date V isits Requested Visits Authorized [id number] Closed Auto-Generate d Referral 02/10/2023 03/11/2024 1 1 Medications Administered Section Inactive Administered Medications - up to 3 most recent administrations Medication Order MAR Action Action Date Dose Rate Site lidocaine 2 % (XYLOCAINE) URETHRAL, ONCE, 1 dose, On Sissy 01/28/22 at 1130, FOR EXTERNAL USE ONLY APPLY TO: 6 ml Given 01/28/2022 11:00 AM EDT 6 mL Additional Source Comments INFORMATION SOURCE (unrecogn ized section and content) DATE CREATED AUTHOR 01/14/2018 [facility] DATE CREATED AUTHOR AUTHOR'S ORGANIZ ATION 04/10/2020 [facility] DATE CREATED AUTHOR AUTHOR'S ORGANIZ ATION 05/07/2022 [facility] DATE CREATED AUTHOR AUTHOR'S ORGANIZ ATION 04/30/2023 [facility] DATE CREATED AUTHOR AUTHOR'S ORGANIZ ATION 02/15/2024 [facility] DATE CREATED AUTHOR AUTHOR'S ORGANIZ ATION 03/11/2025 [facility] DATE CREATED AUTHOR AUTHOR'S ORGANIZ ATION 03/23/2025 [facility] Source Comments (unrecognize d section and content) In the event this informatio n is protected by the Federal Confidentiality of Alcohol and Drug Abuse Patient Records regulations: The Federal rules restrict any use of the information to criminally investigate or prosecute any alcohol or drug abuse patient.[facility] the event this information is protected by the Federal Confidentiality of Alcohol and Drug Abuse Patient Records regulations: The Federal rules restrict any use of the information to criminally investigate or prosecute any alcohol or drug abuse patient.[facility] GeneralIn the event this information is protected by the Federal Confidentiality of Alcohol and Drug Abuse Patient Records regulations: The Federal rules restrict any use of the information to criminally investigate or prosecute any alcohol or drug abuse patient.[facility] GeneralIn the event this information is protected by the Federal Confidentiality of Alcohol and Drug Abuse Patient Records regulations: The Federal rules restrict any use of the information to criminally investigate or prosecute any alcohol or drug abuse patient.[facility] GeneralIn the event this information is protected by the Federal Confidentiality of Alcohol and Drug Abuse Patient Records regulations: The Federal rules restrict any use of the information to criminally investigate or prosecute any alcohol or drug abuse patient.[facility] GeneralIn the event this information is protected by the Federal Confidentiality of Alcohol and Drug Abuse Patient Records regulations: The Federal rules restrict any use of the information to criminally investigate or prosecute any alcohol or drug abuse patient.[facility] GeneralIn the event this information is protected by the Federal Confidentiality of Alcohol and Drug Abuse Patient Records regulations: The Federal rules restrict any use of the information to criminally investigate or prosecute any alcohol or drug abuse patient.[facility] GeneralIn the event this information is protected by the Federal Confidentiality of Alcohol and Drug Abuse Patient Records regulations: The Federal rules restrict any use of the information to criminally investigate or prosecute any alcohol or drug abuse patient.[facility] GeneralIn the event this information is protected by the Federal Confidentiality of Alcohol and Drug Abuse Patient Records regulations: The Federal rules restrict any use of the information to criminally investigate or prosecute any alcohol or drug abuse patient.[facility] GeneralIn the event this information is protected by the Federal Confidentiality of Alcohol and Drug Abuse Patient Records regulations: The Federal rules restrict any use of the information to criminally investigate or prosecute any alcohol or drug abuse patient.[facility] GeneralIn the event this information is protected by the Federal Confidentiality of Alcohol and Drug Abuse Patient Records regulations: The Federal rules restrict any use of the information to criminally investigate or prosecute any alcohol or drug abuse patient.[facility] GeneralIn the event this information is protected by the Federal Confidentiality of Alcohol and Drug Abuse Patient Records regulations: The Federal rules restrict any use of the information to criminally investigate or prosecute any alcohol or drug abuse patient.[facility] GeneralIn the event this information is protected by the Federal Confidentiality of Alcohol and Drug Abuse Patient Records regulations: The Federal rules restrict any use of the information to criminally investigate or prosecute any alcohol or drug abuse patient.[facility] GeneralIn the event this information is protected by the Federal Confidentiality of Alcohol and Drug Abuse Patient Records regulations: The Federal rules restrict any use of the information to criminally investigate or prosecute any alcohol or drug abuse patient.[facility] GeneralIn the event this information is protected by the Federal Confidentiality of Alcohol and Drug Abuse Patient Records regulations: The Federal rules restrict any use of the information to criminally investigate or prosecute any alcohol or drug abuse patient.[facility] GeneralIn the event this information is protected by the Federal Confidentiality of Alcohol and Drug Abuse Patient Records regulations: The Federal rules restrict any use of the information to criminally investigate or prosecute any alcohol or drug abuse patient.[facility] GeneralIn the event this information is protected by the Federal Confidentiality of Alcohol and Drug Abuse Patient Records regulations: The Federal rules restrict any use of the information to criminally investigate or prosecute any alcohol or drug abuse patient.[facility] GeneralIn the event this information is protected by the Federal Confidentiality of Alcohol and Drug Abuse Patient Records regulations: The Federal rules restrict any use of the information to criminally investigate or prosecute any alcohol or drug abuse patient.[facility] GeneralIn the event this information is protected by the Federal Confidentiality of Alcohol and Drug Abuse Patient Records regulations: The Federal rules restrict any use of the information to criminally investigate or prosecute any alcohol or drug abuse patient.[facility] GeneralIn the event this information is protected by the Federal Confidentiality of Alcohol and Drug Abuse Patient Records regulations: The Federal rules restrict any use of the information to criminally investigate or prosecute any alcohol or drug abuse patient.[facility] GeneralIn the event this information is protected by the Federal Confidentiality of Alcohol and Drug Abuse Patient Records regulations: The Federal rules restrict any use of the information to criminally investigate or prosecute any alcohol or drug abuse patient.[facility] GeneralIn the event this information is protected by the Federal Confidentiality of Alcohol and Drug Abuse Patient Records regulations: The Federal rules restrict any use of the information to criminally investigate or prosecute any alcohol or drug abuse patient.[facility] GeneralIn the event this information is protected by the Federal Confidentiality of Alcohol and Drug Abuse Patient Records regulations: The Federal rules restrict any use of the information to criminally investigate or prosecute any alcohol or drug abuse patient.[facility] GeneralIn the event this information is protected by the Federal Confidentiality of Alcohol and Drug Abuse Patient Records regulations: The Federal rules restrict any use of the information to criminally investigate or prosecute any alcohol or drug abuse patient.[facility] GeneralIn the event this information is protected by the Federal Confidentiality of Alcohol and Drug Abuse Patient Records regulations: The Federal rules restrict any use of the information to criminally investigate or prosecute any alcohol or drug abuse patient.[facility] GeneralIn the event this information is protected by the Federal Confidentiality of Alcohol and Drug Abuse Patient Records regulations: The Federal rules restrict any use of the information to criminally investigate or prosecute any alcohol or drug abuse patient.[facility] GeneralIn the event this information is protected by the Federal Confidentiality of Alcohol and Drug Abuse Patient Records regulations: The Federal rules restrict any use of the information to criminally investigate or prosecute any alcohol or drug abuse patient.[facility] GeneralIn the event this information is protected by the Federal Confidentiality of Alcohol and Drug Abuse Patient Records regulations: The Federal rules restrict any use of the information to criminally investigate or prosecute any alcohol or drug abuse patient.[facility] GeneralIn the event this information is protected by the [facility] Confidentiality of Alcohol and Drug Abuse Patient Records regulations: The Federal rules restrict any use of the information to criminally investigate or prosecute any alcohol or drug abuse patient.[facility] GeneralIn the event this information is protected by the Federal Confidentiality of Alcohol and Drug Abuse Patient Records regulations: The Federal rules restrict any use of the information to criminally investigate or prosecute any alcohol or drug abuse patient.[facility] Continuous Active and Recently Administ ered Medications (unrecognized section and content) Medication Order 09/21/2021 09/22/2021 09/23/2021 0.9 % sodium chloride infusion IntraVENous, at 50 mL/hr, CONTINUOUS, Starting on Tue09/23/21 at 1230, Pre-op (day of surgery) 1230 (Due) PRN Medication Order 09/21/2021 09/22/2021 09/23/2021 fentaNYL (SUBLIMAZE) injection (COMPLETED) ONCE PRN, Starting on Tue09/23/21 at 1345, For 1 dose 1345 (Given - Provid er: Michelle Cole RN) lidocaine PF 1 % injection (COMPLETED) ONCE PRN, Starting on Tue09/23/21 at 1345, For 1 dose 1345 (Given - Provid er: Juanpablo Sauceda MD) midazolam (VERSED) injection (COMPLETED) ONCE PRN, Starting on Tue09/23/21 at 1345, For 1 dose 1345 (Given - Provid er: Michelle Cloe RN) Care Teams (unrecognized sec tion and content) Entry Level Web Developer Relationship Specialty Start Date End Date Trevor Vieyra PCP - General 02/03/15 [facility] 10/10/15 Entry Level Web Developer Relationship Specialty Start Date End Date Trevor Vieyra MD [address] [place] [address] PCP - General Family Practice 01/16/20 Entry Level Web Developer Relationship Specialty Start Date End Date Trevor Vieyra MD [address] [place] [address] PCP - General Family Practice 01/16/20 Entry Level Web Developer Relationship Specialty Start Date End Date Trevor Vieyra MD [address] [place] [address] PCP - General Family Practice 01/16/20 Entry Level Web Developer Relationship Specialty Start Date End Date Trevor Vieyra MD [address] [place] [address] PCP - General Family Practice 01/16/20 Entry Level Web Developer Relationship Specialty Start Date End Date Trevor Vieyra MD [address] [place] [address] PCP - General Family Practice 01/16/20 Entry Level Web Developer Relationship Specialty Start Date End Date Trevor Vieyra MD [address] [place] [address] PCP - General Family Practice 01/16/20 Entry Level Web Developer Relationship Specialty Start Date End Date Trevor Vieyra MD [address] [place] [address] PCP - General Family Practice 01/16/20 Entry Level Web Developer Relationship Specialty Start Date End Date Trevor Vieyra MD [address] [place] [address] PCP - General Family Practice 01/16/20 Entry Level Web Developer Relationship Specialty Start Date End Date Trevor Vieyra MD [address] [place] [address] PCP - General Family Practice 01/16/20 Entry Level Web Developer Relationship Specialty Start Date End Date Trevor Vieyra MD [address] [place] [address] PCP - General Family Practice 01/16/20 Entry Level Web Developer Relationship Specialty Start Date End Date Trevor Vieyra MD [address] [place] [address] PCP - General Family Practice 01/16/20 Entry Level Web Developer Relationship Specialty Start Date End Date Trevor Vieyra MD [address] [place] [address] PCP - General Family Practice 01/16/20 Entry Level Web Developer Relationship Specialty Start Date End Date Trevor Vieyra MD [address] [place] [address] PCP - General Family Practice 01/16/20 Entry Level Web Developer Relationship Specialty Start Date End Date Trevor Vieyra MD [address] [place] [address] PCP - General Family Practice 01/16/20 Entry Level Web Developer Relationship Specialty Start Date End Date Trevor Vieyra MD [address] [place] [address] PCP - General Family Medicine 01/16/20 Team Status: Active Member Role Status Dates Dr. Trevor Vieyra MD Family Provider Active Dr. Trevor Vieyra MD Primary Care Provider Active Team Status: Inactive Member Role Status Dates Dr. Trevor Vieyra MD Primary Care Provider, Attending P rowes Active Team Status: Active Member Role Status Dates Dr. Trevor Vieyra MD Primary Care Provider, Attending P rowes Active Team Status: Inactive Member Role Status Dates Dr. Trevor Vieyra MD Primary Care Provider, Referring P rovider Active Maday Sheppard PA, PA Attending Provider Active Team Status: Active Member Role Status Dates Dr. Trevor Vieyra MD Primary Care Provide r, Attending Provider, Referring Provider Active Team Status: Inactive Member Role Status Dates Dr. Trevor Vieyra MD Primary Care Provide r, Attending Provider, Referring Provider Active Entry Level Web Developer Relationship Specialty Start Date End Date Trevor Vieyra MD [address] [place], [place] [address] PCP - General Family Medicine 01/16/20 Entry Level Web Developer Relationship Specialty Start Date End Date Trevor Vieyra MD [address] [facility] [address] [place], [place] [address] PCP - General Family Medicine 01/16/20 Entry Level Web Developer Relationship Specialty Start Date End Date Trevor Vieyra [address] [facility] [address] [place] [address] PCP - General 02/03/15 Entry Level Web Developer Relationship Specialty Start Date End Date Trevor Vieyra MD [address] [facility] [address] [place] [id number] PCP - General Family Medicine 01/16/20 Entry Level Web Developer Relationship Specialty Start Date End Date Trevor Vieyra MD [address] [facility] [address] [place], [place] [id number] PCP - General Family Medicine 01/16/20 Entry Level Web Developer Relationship Specialty Start Date End Date Trevor Vieyra MD [address] [place] [address] PCP - General Family Medicine 01/16/20 Team Status: Inactive Member Role Status Dates Dr. Trevor Vieyra MD Primary Care Provider Active Dr. Salas Basilio MD Emergency Provider Active Entry Level Web Developer Relationship Specialty Start Date End Date Trevor Vieyra MD [address] [facility] [address] [place] [address] PCP - General Family Medicine 01/16/20 Entry Level Web Developer Relationship Specialty Start Date End Date Trevor Vieyra [address] [place] [address] PCP - General 02/03/15 Entry Level Web Developer Relationship Specialty Start Date End Date Trevor Vieyra [address] [place] [address] PCP - General 02/03/15 Team Status: Active Member Role Status Dates Dr. Trevor Vieyra MD Primary Care Provide r, Referring Provider, Other Provider Active Dr. Camille Heller MD Attending Provider Active Team Status: Inactive Member Role Status Dates Dr. Trevor Vieyra MD Primary Care Provider Active Dr. Salas Basilio MD Attending Provider, Emergency Provider Active Entry Level Web Developer Relationship Specialty Start Date End Date Trevor Vieyra MD [address] [place] [address] PCP - General Family Medicine 01/16/20 Entry Level Web Developer Relationship Specialty Start Date End Date Trevor Vieyra [address] [place] [address] PCP - General 7/27/15 Team Status: Active Member Role Status Dates Dr. Trevor Vieyra MD Primary Care Provider Active Team Status: Inactive Member Role Status Dates Dr. Trevor Vieyra MD Primary Care Provider Active Start: June 06, 2024 End: June 09, 2024 Dr. Trevor Vieyra MD Attending Provider Active St art: June 06, 2024 End: June 09, 2024 Dr. Trevor Vieyra MD Referring Provider Active St art: June 06, 2024 End: June 09, 2024 Team Status: Inactive Member Role Status Dates Dr. Trevor Vieyra MD Primary Care Provider Active Start: June 18, 2024 End: July 10, 2024 Dr. Trevor Vieyra MD Attending Provider Active St art: June 18, 2024 End: July 10, 2024 Dr. Trevor Vieyra MD Referring Provider Active St art: June 18, 2024 End: July 10, 2024 Team Status: Inactive Member Role Status Dates Dr. Trevor Vieyra MD Primary Care Provider Active Start: July 08, 2024 End: July 08, 2024 Dr. Trevor Preston DO Attending Provider Active Start: July 08, 2024 End: July 08, 2024 Dr. Trevor Preston DO Emergency Provider Active Start: July 08, 2024 End: July 08, 2024 Team Status: Inactive Member Role Status Dates Dr. Trevor Vieyra MD Primary Care Provider Active Start: July 18, 2024 End: August 10, 2024 Dr. Trevor Vieyra MD Attending Provider Active St art: July 18, 2024 End: August 10, 2024 Dr. Trevor Vieyra MD Referring Provider Active St art: July 18, 2024 End: August 10, 2024 Team Status: Inactive Member Role Status Dates Dr. Trevor Vieyra MD Primary Care Provider Active Start: July 23, 2024 End: July 23, 2024 Dr. Trevor Vieyra MD Attending Provider Active St art: July 23, 2024 End: July 23, 2024 Dr. Trevor Vieyra MD Referring Provider Active St art: July 23, 2024 End: July 23, 2024 Team Status: Inactive Member Role Status Dates Dr. Trevor Vieyra MD Primary Care Provider Active Start: August 21, 2024 End: August 21, 2024 Dr. Trevor Vieyra MD Referring Provider Active St art: August 21, 2024 End: August 21, 2024 Kieran Hampton PA, PA Attending Provider Active Start: August 21, 2024 End: August 21, 2024 Team Status: Inactive Member Role Status Dates Dr. Trevor Vieyra MD Primary Care Provider Active Start: September 04, 2024 End: September 07, 2024 Dr. Trevor Vieyra MD Attending Provider Active St art: September 04, 2024 End: September 07, 2024 Dr. Trevor Vieyra MD Referring Provider Active St art: September 04, 2024 End: September 07, 2024 Team Status: Active Member Role Status Dates Dr. Trevor Vieyra MD Primary Care Provider Active Start: September 11, 2024 Dr. Trevor Vieyra MD Attending Provider Active St art: September 11, 2024 Dr. Trevor Vieyra MD Referring Provider Active St art: September 11, 2024 Team Status: Inactive Member Role Status Dates Dr. Trevor Vieyra MD Primary Care Provider Active Start: September 17, 2024 End: September 17, 2024 Marques Peace MD Emergency Provider Active Star t: September 17, 2024 End: September 17, 2024 Team Status: Inactive Member Role Status Dates Dr. Trevor Vieyra MD Primary Care Provider Active Start: September 11, 2024 End: October 08, 2024 Dr. Trevor Vieyra MD Attending Provider Active St art: September 11, 2024 End: October 08, 2024 Dr. Trevor Vieyra MD Referring Provider Active St art: September 11, 2024 End: October 08, 2024 Team Status: Inactive Member Role Status Dates Dr. Trevor Vieyra MD Primary Care Provider Active Start: September 17, 2024 End: September 17, 2024 Marques Peace MD Attending Provider Active Star t: September 17, 2024 End: September 17, 2024 Marques Peace MD Emergency Provider Active Star t: September 17, 2024 End: September 17, 2024 Team Status: Inactive Member Role Status Dates Dr. Trevor Vieyra MD Primary Care Provider Active Start: October 11, 2024 End: October 11, 2024 Dr. Trevor Vieyra MD Referring Provider Active St art: October 11, 2024 End: October 11, 2024 Christiano Tee LEAD DATA ENTRY OPERATOR, LEAD DATA ENTRY OPERATOR-C Attending Provider Active S tart: October 11, 2024 End: October 11, 2024 Team Status: Active Member Role Status Dates Dr. Trevor Vieyra MD Primary Care Provider Active Start: October 11, 2024 Dr. Trevor Vieyra MD Attending Provider Active St art: October 11, 2024 Dr. Trevor Vieyra MD Referring Provider Active St art: October 11, 2024 Team Status: Inactive Member Role Status Dates Dr. Trevor Vieyra MD Primary Care Provider Active Start: October 18, 2024 End: October 18, 2024 Chrisitano Tee LEAD DATA ENTRY OPERATOR, LEAD DATA ENTRY OPERATOR-C Attending Provider Active S tart: October 18, 2024 End: October 18, 2024 Christiano Tee LEAD DATA ENTRY OPERATOR, LEAD DATA ENTRY OPERATOR-C Referring Provider Active S tart: October 18, 2024 End: October 18, 2024 Team Status: Inactive Member Role Status Dates Dr. Trevor Vieyra MD Primary Care Provider Active Start: October 11, 2024 End: November 07, 2024 Dr. Trevor Vieyra MD Attending Provider Active St art: October 11, 2024 End: November 07, 2024 Dr. Trevor Vieyra MD Referring Provider Active St art: October 11, 2024 End: November 07, 2024 Team Status: Inactive Member Role Status Dates Dr. Trevor Vieyra MD Primary Care Provider Active Start: November 23, 2024 End: December 08, 2024 Dr. Trevor Vieyra MD Attending Provider Active St art: November 23, 2024 End: December 08, 2024 Dr. Trevor Vieyra MD Referring Provider Active St art: November 23, 2024 End: December 08, 2024 Team Status: Active Member Role/Relationship Status Dates Dr. Trevor Vieyra MD Primary Care Provider Active Team Status: Inactive Member Role/Relationship Status Dates Dr. Trevor Vieyra MD Primary Care Provider Active Start: September 11, 2024 End: October 08, 2024 Dr. Trevor Vieyra MD Attending Provider Active St art: September 11, 2024 End: October 08, 2024 Dr. Trevor Vieyra MD Referring Provider Active St art: September 11, 2024 End: October 08, 2024 Team Status: Inactive Member Role/Relationship Status Dates Dr. Trevor Vieyra MD Primary Care Provider Active Start: September 17, 2024 End: September 17, 2024 Marques Peace MD Attending Provider Active Star t: September 17, 2024 End: September 17, 2024 Marques Peace MD Emergency Provider Active Star t: September 17, 2024 End: September 17, 2024 Team Status: Inactive Member Role/Relationship Status Dates Dr. Trevor Vieyra MD Primary Care Provider Active Start: October 11, 2024 End: October 11, 2024 Dr. Trevor Vieyra MD Referring Provider Active St art: October 11, 2024 End: October 11, 2024 Christiano Tee LEAD DATA ENTRY OPERATOR, LEAD DATA ENTRY OPERATOR-C Attending Provider Active S tart: October 11, 2024 End: October 11, 2024 Team Status: Inactive Member Role/Relationship Status Dates Dr. Trevor Vieyra MD Primary Care Provider Active Start: October 11, 2024 End: November 07, 2024 Dr. Trevor Vieyra MD Attending Provider Active St art: October 11, 2024 End: November 07, 2024 Dr. Trevor Vieyra MD Referring Provider Active St art: October 11, 2024 End: November 07, 2024 Team Status: Inactive Member Role/Relationship Status Dates Dr. Trevor Vieyra MD Primary Care Provider Active Start: October 18, 2024 End: October 18, 2024 Christiano Tee LEAD DATA ENTRY OPERATOR, LEAD DATA ENTRY OPERATOR-C Attending Provider Active S tart: October 18, 2024 End: October 18, 2024 Christiano Tee LEAD DATA ENTRY OPERATOR, LEAD DATA ENTRY OPERATOR-C Referring Provider Active S tart: October 18, 2024 End: October 18, 2024 Team Status: Inactive Member Role/Relationship Status Dates Dr. Trevor Vieyra MD Primary Care Provider Active Start: November 23, 2024 End: December 08, 2024 Dr. Trevor Vieyra MD Attending Provider Active St art: November 23, 2024 End: December 08, 2024 Dr. Trevor Vieyra MD Referring Provider Active St art: November 23, 2024 End: December 08, 2024 Team Status: Inactive Member Role/Relationship Status Dates Dr. Trevor Vieyra MD Primary Care Provider Active Start: December 17, 2024 End: January 07, 2025 Dr. Trevor Vieyra MD Attending Provider Active St art: December 17, 2024 End: January 07, 2025 Dr. Trevor Vieyra MD Referring Provider Active St art: December 17, 2024 End: January 07, 2025 Team Status: Inactive Member Role/Relationship Status Dates Dr. Trevor Vieyra MD Primary Care Provider Active Start: October 11, 2024 End: October 11, 2024 Dr. Trevor Vieyra MD Referring Provider Active St art: October 11, 2024 End: October 11, 2024 Christiano Tee LEAD DATA ENTRY OPERATOR, LEAD DATA ENTRY OPERATOR-C Attending Provider Active S tart: October 11, 2024 End: October 11, 2024 Team Status: Inactive Member Role/Relationship Status Dates Dr. Trevor Vieyra MD Primary Care Provider Active Start: October 11, 2024 End: November 07, 2024 Dr. Trevor Vieyra MD Attending Provider Active St art: October 11, 2024 End: November 07, 2024 Dr. Trevor Vieyra MD Referring Provider Active St art: October 11, 2024 End: November 07, 2024 Team Status: Inactive Member Role/Relationship Status Dates Dr. Trevor Vieyra MD Primary Care Provider Active Start: October 18, 2024 End: October 18, 2024 Christiano Tee LEAD DATA ENTRY OPERATOR, LEAD DATA ENTRY OPERATOR-C Attending Provider Active S tart: October 18, 2024 End: October 18, 2024 Christiano Tee LEAD DATA ENTRY OPERATOR, LEAD DATA ENTRY OPERATOR-C Referring Provider Active S tart: October 18, 2024 End: October 18, 2024 Team Status: Inactive Member Role/Relationship Status Dates Dr. Trevor Vieyra MD Primary Care Provider Active Start: November 23, 2024 End: December 08, 2024 Dr. Trevor Vieyra MD Attending Provider Active St art: November 23, 2024 End: December 08, 2024 Dr. Trevor Vieyra MD Referring Provider Active St art: November 23, 2024 End: December 08, 2024 Team Status: Inactive Member Role/Relationship Status Dates Dr. Trevor Vieyra MD Primary Care Provider Active Start: December 17, 2024 End: January 07, 2025 Dr. Trevor Vieyra MD Attending Provider Active St art: December 17, 2024 End: January 07, 2025 Dr. Trevor Vieyra MD Referring Provider Active St art: December 17, 2024 End: January 07, 2025 Team Status: Inactive Member Role/Relationship Status Dates Dr. Trevor Vieyra MD Primary Care Provider Active Start: January 15, 2025 End: February 07, 2025 Dr. Trevor Vieyra MD Attending Provider Active St art: January 15, 2025 End: February 07, 2025 Dr. Trevor Vieyra MD Referring Provider Active St art: January 15, 2025 End: February 07, 2025 Team Status: Inactive Member Role/Relationship Status Dates Dr. Trevor Vieyra MD Primary Care Provider Active Start: November 23, 2024 End: December 08, 2024 Dr. Trevor Vieyra MD Attending Provider Active St art: November 23, 2024 End: December 08, 2024 Dr. Trevor Vieyra MD Referring Provider Active St art: November 23, 2024 End: December 08, 2024 Team Status: Inactive Member Role/Relationship Status Dates Dr. Trevor iVeyra MD Primary Care Provider Active Start: December 17, 2024 End: January 07, 2025 Dr. Trevor Vieyra MD Attending Provider Active St art: December 17, 2024 End: January 07, 2025 Dr. Trevor Vieyra MD Referring Provider Active St art: December 17, 2024 End: January 07, 2025 Team Status: Inactive Member Role/Relationship Status Dates Dr. Trevor Vieyra MD Primary Care Provider Active Start: January 15, 2025 End: February 07, 2025 Dr. Trevor Vieyar MD Attending Provider Active St art: January 15, 2025 End: February 07, 2025 Dr. Trevor Vieyra MD Referring Provider Active St art: January 15, 2025 End: February 07, 2025 Team Status: Inactive Member Role/Relationship Status Dates Dr. Trevor Vieyra MD Primary Care Provider Active Start: February 19, 2025 End: March 10, 2025 Dr. Trevor Vieyra MD Attending Provider Active St art: February 19, 2025 End: March 10, 2025 Dr. Trevor Vieyra MD Referring Provider Active St art: February 19, 2025 End: March 10, 2025 Goals (unrecognized section and content) Goals may be documented in a n alternate sectionGoals may be documented in an alternate sectionGoals may be documented in an alternate sectionGoals may be documented in an alternate sectionGoals may be documented in an alternate sectionGoals may be documented in an alternate sectionGoals may be documented in an alternate sectionGoals may be documented in an alternate sectionGoals may be documented in an alternate sectionGoals may be documented in an alternate sectionGoals may be documented in an alternate sectionGoals may be documented in an alternate sectionGoals may be documented in an alternate sectionGoals may be documented in an alternate sectionGoals may be documented in an alternate sectionGoals may be documented in an alternate sectionGoals may be documented in an alternate sectionGoals may be documented in an alternate sectionGoals may be documented in an alternate sectionGoals may be documented in an alternate sectionGoals may be documented in an alternate sectionGoals may be documented in an alternate sectionGoals may be documented in an alternate sectionGoals may be documented in an alternate sectionGoals may be documented in an alternate sectionGoals may be documented in an alternate sectionGoals may be documented in an alternate sectionGoals may be documented in an alternate sectionGoals may be documented in an alternate sectionGoals may be documented in an alternate sectionGoals may be documented in an alternate sectionGoals may be documented in an alternate section Reason for Visit (unrecogniz ed section and content) Reason Comments Blood In Urine Reason Comments Results Reason Comments Results Reason Comments Radiology MRI Urogram Specialty Diagnoses / Procedures [facility] To Contact [facility] IMAGING Diagnoses Gross hematuria Procedures MRI PELVIS URO WO/W IVCON MRI PELVIS W/O & W/CONTRAST MATERIAL Deb Howard, 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 [address] [place] [address] Mr Imaging Referral ID Status Reason Start Date Expiration Date V isits Requested Visits Authorized [id number] Closed Auto-Generate d Referral 12/16/2021 01/15/2023 1 1 Reason Comments Radio Main J1 Reason Comments Results Appointment Reason Comments Please Return ER Physician Call Reason Comments Cystoscopy-1 Reason Comments Surgery Scheduled Reason Comments Surgical Followup Reason Comments Post Op 02/22/22- Robotic Ass isted Laparoscopic Right Radical Nephrectomy, robotic renal cyst decortication Reason Comments Established Patient Left kidney issues Reason Comments Results (CT) Reason Comments Follow Up Phone Call Follow Up All Clear Reason Comments Post-Op Visit Reason Comments Radiology CT Specialty Diagnoses / Procedures [facility] Ref[facility] To Contact CT IMAGING Diagnoses Polycystic kidney Procedures CT ABD/PEL WO IVCON CT ABD & PELVIS W/O CONTRAST Christiano Huntley MD [address] [place] [address] [place] [address] Referral ID Status Reason Start Date Expiration Date V isits Requested Visits Authorized [id number] Closed Auto-Generate d Referral 02/10/2023 03/11/2024 1 1 Reason Onset Date Comments Missed Appointment 05/11/2023 Reason Comments 1 Year Follow-up Reason Onset Date Comments Population Health Navigation Outreach 02/13/2024 [facility] Attributed Member - Added to Attribution List Reason Comments Annual Exam FOR RECORDS PERTAINING TO PATIENTS WHO ARE OR HAVE BEEN ENROLLED IN A CHEMICAL DEPENDENCY/SUBSTANCEABUSE PROGRAM, SOME INFORMATION MAY BE OMITTED. This clinical summary was aggregated from multiple sources. Caution should be exercised in using it in the provision of clinical care. This summary normalizes information from multiple sources, and as a consequence, information in this document may materially change the coding, format and clinical context of patient data. In addition, data may be omitted in some cases. CLINICAL DECISIONS SHOULD BE BASED ON THE PRIMARY CLINICAL RECORDS. [employer] provides no warranty or guarantee of the accuracy or completeness of information in this document.
[2025-03-29 20:32] LABS: CRP < 3.00 mg/L (0.0-3.0)
--- NOTE | 2025-03-29 20:38 | ECHOD_ITS ---
Reason For Study : PERICARDIAL EFFUSION Procedure This was a 2D Doppler, Color Flow transthoracic echocardiogram. The patient was scanned supine. Exam performed in department. Left Ventricle Normal LV size. Left ventricular systolic function is normal. The left ventricular ejection fraction is 65 %. Stage 2 diastolic dysfunction. No regional wall motion abnormalities noted. Right Ventricle Normal RV size. Normal systolic function. Atria Normal left atrium. Normal right atrium. Mitral Valve There is moderate mitral annular calcification. Mild-Moderate (1-2+) eccentric mitral valve insufficiency. Tricuspid Valve Normal tricuspid valve. Mild (1+) tricuspid valve insufficiency. Pulmonary artery systolic pressure is 40 mmHg. Aortic Valve Trisinus/trileaflet aortic valve. Mild focal aortic valve calcification. Pulmonic Valve Normal pulmonic valve. Great Vessels Normal aortic root. The pulmonary artery is normal size. Inferior vena cava collapse with respiration. Pericardium/Pleural Small (<1.0 cm) pericardial effusion. MMode/2D Measurements & Calculations LVIDd: 5.3 cm IVSd: 1.1 cm LVOT diam: 1.9 cm LVIDs: 3.8 cm LVPWd: 0.96 cm LVOT area: 2.8 cm2 RVDd: 3.3 cm FS: 28.0 % asc Aorta Diam: 3.4 cm LAV(MOD-bp): 78.9 ml LVAd ap4: 31.5 cm2 LAV(MOD-bp) Indexed: 43.6 ml/m2 LVLd ap4: 8.0 cm LAV(MOD-sp2): 66.0 ml EDV(MOD-sp4): 100.2 ml LAV(MOD-sp4): 84.1 ml EDV(sp4-el): 105.8 ml LVAs ap4: 16.7 cm2 LVLs ap4: 6.5 cm ESV(MOD-sp4): 36.3 ml ESV(sp4-el): 36.3 ml EF(MOD-sp4): 63.8 % EF(sp4-el): 65.7 % LVAd ap2: 31.3 cm2 SV(MOD-sp4): 63.9 ml SV(MOD-sp2): 57.9 ml LVLd ap2: 8.4 cm SI(MOD-sp4): 35.3 ml/m2 SI(MOD-sp2): 32.0 ml/m2 EDV(MOD-sp2): 98.9 ml EDV(sp2-el): 99.4 ml LVAs ap2: 18.3 cm2 LVLs ap2: 7.0 cm ESV(MOD-sp2): 41.0 ml ESV(sp2-el): 40.3 ml EF(MOD-sp2): 58.5 % SV(sp4-el): 69.5 ml Ao sinus diam: 2.[address] Junction: 2.0 cm LA dimension(2D): 4.8 cm LA A4 area: 25.2 cm2 RA A4 area: 10.7 cm2 TAPSE: 1.6 cm Time Measurements MV dec time: 0.13 sec Doppler Measurements & Calculations MV E max navi: 151.8 cm/sec Lat Peak E' Navi: 10.6 cm/sec Med Peak E' Navi: 9.3 cm/sec MV A max navi: 128.7 cm/sec E/E' lat: 14.3 E/E' med: 16.3 MV E/A: 1.2 MV V2 max: 159.4 cm/sec MV dec slope: 1130 cm/sec2 Ao V2 max: 215.7 cm/sec MV max P.2 mmHg Ao max P.6 mmHg MV V2 mean: 109.3 cm/sec Ao V2 mean: 141.3 cm/sec MV mean P.3 mmHg Ao mean P.2 mmHg MV V2 VTI: 48.4 cm Ao V2 VTI: 51.2 cm MVA(VTI): 1.9 cm2 AV (velocity ratio): 0.66 LORY(I,D): 1.8 cm2 LORY(V,D): 1.8 cm2 LV V1 max: 137.6 cm/sec SV(LVOT): 93.7 ml PA V2 max: 130.4 cm/sec LV V1 max P.6 mmHg LV V1 mean P.0 mmHg LV V1 mean: 93.8 cm/sec LV V1 VTI: 33.7 cm PI end-d navi: 165.1 cm/sec TR max navi: 297.5 cm/sec TR max P.4 mmHg ECHO/Echo Complete Interpretation Summary Normal LV size. Left ventricular systolic function is normal. The left ventricular ejection fraction is 65 %. Stage 2 diastolic dysfunction. Pulmonary artery systolic pressure is 40 mmHg. Small (<1.0 cm) pericardial effusion. Ordering Physician: Saadia Valencia Performed By: Jane Arnold RDCS
[2025-03-29] MEDS: Warfarin (PBKC) 4 MG Tablet 8 MG PO (21:29)
[2025-03-29] MEDS: Nitroglycerin Oint 1 INCH PACKET 0.5 INCH TD (21:29)
[2025-03-29 21:45] LABS: Troponin T High Sens 4 HR 66 ng/L (<=14)
--- NOTE | 2025-03-29 22:13 | EKG12_ITS ---
Test Reason : CP Blood Pressure : */* mmHG Vent. Rate : 62 BPM Atrial Rate : 62 BPM P-R Int : 170 ms QRS Dur : 88 ms QT Int : 540 ms P-R-T Axes : 5 43 68 degrees QTcB Int : 548 ms Normal sinus rhythm Nonspecific ST abnormality Prolonged QT Abnormal ECG Confirmed by CALEB DAVIS, LOULOU ([id number]), editor managing newspaper GALO OLGUIN ([id number]) on 04/01/2025 8:13:12 AM Referred By: CG/ER Confirmed By: LOULOU ELLIS MD
--- NOTE | 2025-03-29 23:03 | PCM.HOSP.N ---
Hospitalist Note C/o burning in her chest, repeat EKG performed at 2226-No STEMI, no change except for continued prolongation of QT/QTc lengths, 502/537ms up to 510/558ms, when compared to EKG from ER time at 2013. Noted EKG from 9.18.25 with QT/QTc of 472/512ms. Reviewed current medication list for QT prolonging medications: Zolpidem was not continued from home med list; stopped ondansetron, prochlorperazine, and sertraline. Pharmacy asked to review medlist as well, they concur wuth actions taken.
[2025-03-30] VITALS (15 sets, daily range): BP systolic 162–202; BP diastolic 49–85; PULSE 63–83; RESP 16–28; TEMP 36.4–36.9; O2SAT 90–100; BMI 32.3
[2025-03-30] MEDS: Nitroglycerin Oint 1 INCH PACKET 0.5 INCH TD (00:23)
[2025-03-30] MEDS: Scopolamine 1mg/72hr Patch 1 PATCH TD (04:41)
--- NOTE | 2025-03-30 05:55 | EKG12_ITS ---
Test Reason : AM EKG Blood Pressure : */* mmHG Vent. Rate : 67 BPM Atrial Rate : 67 BPM P-R Int : 176 ms QRS Dur : 88 ms QT Int : 490 ms P-R-T Axes : 7 48 85 degrees QTcB Int : 517 ms Normal sinus rhythm Nonspecific ST and T wave abnormality Prolonged QT Abnormal ECG When compared with ECG of 29-Mar-2025 22:26, MANUAL COMPARISON REQUIRED DATA IS UNCONFIRMED Confirmed by CALEB DAVIS, LOULOU ([id number]), web editor GALO OLGUIN ([id number]) on 04/01/2025 8:32:49 AM Referred By: Confirmed By: LOULOU ELLIS MD
[2025-03-30 07:35] LABS: AST(SGOT) 23 U/L (<=31); Alanine Aminotransfer ALT/SGPT 19 U/L (<=34); Albumin, Serum 3.6 g/dL (3.4-4.8); Alkaline Phosphatase 47 U/L (35-104); Anion Gap 15 (5-15); BUN 27 mg/dL (4-19); BUN/Creat Ratio 3.6 RATIO (10-20); CRP < 3.00 mg/L (0.0-3.0); Calcium,Total 8.2 mg/dL (7.6-11.0); Carbon Dioxide 27.1 mmol/L (21.0-32.0); Chloride 95 mmol/L (98-108); Estimated Creatinine Clearance 8.07 ml/min (50-250); Globulin 2.2 g/dL (2.2-4.2); Glucose 102 mg/dL (70-99); Magnesium 2.3 mg/dL (1.5-2.2); Potassium 3.9 mmol/L (3.3-5.1)
--- NOTE | 2025-03-30 07:42 | PCM.PN.HOSP ---
Reason for Visit Chief Complaint: Chest pain, Dyspnea, elevated BP. Objective Data Objective Data Vital Signs: Vital Signs Temp Pulse Resp BP Pulse Ox O2 Del Method 97.8 F 64 16 180/57 H 93 Room Air 03/30/25 04:20 03/30/25 04:20 03/30/25 04:20 03/30/25 04:20 03/30/25 07:29 03/30/25 07:29 Oxygen Delivery Method Room Air Weight: 176 lb 12.972 oz Body Mass Index (BMI) 32.3 Intake & Output: Intake and Output for Last 24 Hours 03/28/25 03/29/25 03/30/25 23:59 23:59 23:59 Intake Total 400 / 400 0 / 0 Balance 400 / 400 0 / 0 Lab / Micro Data 03/30/25 05:22 03/30/25 05:22 Labs: Laboratory Results - last 24 hr 03/29/25 16:03: Magnesium 2.0 03/29/25 16:20: WBC 4.2 L, RBC 2.96 L, Hgb 8.8 L, Hct 27.0 L, MCV 91.2, MCH 29.7, MCHC 32.6, RDW Std Deviation 52.8 H, RDW Coeff of Tana 16.9 H, Plt Count 220, MPV 9.2, Immature Gran % (Auto) 0.200, Neut % (Auto) 67.8, Lymph % (Auto) 15.8 L, Levy % (Auto) 8.0, Eos % (Auto) 7.5 H, Baso % (Auto) 0.7, Absolute Neuts (auto) 2.9, Absolute Lymphs (auto) 0.67 L, Nucleated RBC % 0, ESR 6, PT 24.1 H, INR 2.1, Sodium 139, Potassium 3.7, Chloride 94 L, Carbon Dioxide 30.5, Anion Gap 14, BUN 19, Creatinine 5.66 H, Estim Creat Clear Calc 10.56 L, Est GFR (MDRD) Non-Af 8 L, BUN/Creatinine Ratio 3.4 L, Glucose 101 H, Calcium 7.9, Troponin T High Sens 62 H* 03/29/25 18:13: Troponin T Hi Sens 2 Hr 63 H*, C-React Prot Ext Range < 3.00 03/29/25 21:00: Troponin T Hi Sens 4Hr 66 H* 03/30/25 05:22: ESR 4, Sodium 136, Potassium 3.9, Chloride 95 L, Carbon Dioxide 27.1, Anion Gap 15, BUN 27 H, Creatinine 7.27 H, Estim Creat Clear Calc 8.07 L*, Est GFR (MDRD) Non-Af 6 L, BUN/Creatinine Ratio 3.6 L, Glucose 102 H, Calcium 8.2, Phosphorus 4.0, Magnesium 2.3 H, Total Bilirubin 0.54, AST 23, ALT 19, Alkaline Phosphatase 47, C-React Prot Ext Range < 3.00, Total Protein 5.8 L, Albumin 3.6, Globulin 2.2, Albumin/Globulin Ratio 1.6, TSH 3.440 Radiography Diagnostic Testing: Radiology Impression Chest X-Ray 03/29/25 16:33 IMPRESSION: 1. Bibasilar atelectasis or pneumonia. 2. Cardiomegaly with mild congestion. 3. No significant change from the prior exam. 4. Bilateral pleural effusions. Reading Location: [facility] Chest CT 03/29/25 18:15 IMPRESSION: 1. Cardiomegaly with small pericardial effusion. 2. Scattered mediastinal lymph nodes some of which are upper limits of normal in size and are most likely reactive lymph nodes. Reading Location: [facility] Rhythm Strip Rhythm Strip: Sinus Rhythm Rate: 62 Ectopy: None Physical Exam Narrative Patient said she has high blood pressure at home systolic more than 200s. Yesterday in dialysis session, she felt chest pain more like a squeezing sensation/tightness over left chest without radiation. She was not feeling short of breath though she was put on oxygen. No syncope. She had a stress test in the morning. She has bilateral mastectomy in the past for polycystic kidney disease. She is on hemodialysis for 17 years. Loose bowel movement yesterday. Denies URI symptoms Physical exam General: Alert, Oriented x3, Cooperative HEENT: Atraumatic, PERRLA, EOMI, Normocephalic. Oral: No Gingival or Mucosal Lesions/ Ulcerations Neck: Supple, No JVD, Negative Carotid Bruits Chest wall/Lungs: Air entry diminished in bilateral lung bases. No crepitation/rhonchi Cardiovascular: Regular rate and rhythm, Normal S1,S2, No M/G/R Abdomen: Bowel Sounds Present, Soft, Non Tender, Non-Distended : Anuric. Status post bilateral nephrectomy. Extremities: No edema, Capillary Refill Less than 3 Seconds Skin: No rashes, No breakdown Musculoskeletal: No Tenderness to Palpation of Joints or Extremities Neurological: Cranial nerves II-XII grossly intact, DTR 2+/4. No acute focal neurological deficit. Psych/Mental Status: Normal Affect, Appropriate. Assessment & Plan Assessment/Plan (1) Chest pressure: PLAN: Plan The patient is a 59 y/o F who was admitted with left-sided chest pain and upper abdominal pain while on dialysis. She also noted 10 weeks of NSVT. She states her blood pressure at home is more than 200 systolic. #1. Hypertensive urgency: Patient blood pressure is high chronically systolic more than 200. At home patient is on telmisartan, carvedilol and digoxin but not on diuretic. Patient is started on chlorthalidone 12.5 mg daily. On IV hydralazine and labetalol as needed SBP more than 180 mmHg. Blood pressure still high 180/57, 172/56. and blood pressure is controlled about systolic 150s patient can be discharged and advised follow-up with brand attendant for better control of blood pressure. 2. Atypical chest pain, localized: ACS ruled out. Twelve-lead EKG nondiagnostic of ACS. Serial troponins were mildly elevated 60-63 and 66. patient had nuclear stress test negative for acute ischemia. ACS ruled out. 2D echo shows EF 65% with stage II diastolic dysfunction, mild TR PASP 43. Overall suggestive of chronic HFpEF #2. Polycystic kidney disease status post bilateral nephrectomy with ESRD: Patient with ongoing dialysis Tuesday, Tuesday, Tuesday,: Patient did not have any need for hemodialysis. Pipe Processor consulted electrolytes in normal limit. BUN/creatinine high 27/7.27. Serum magnesium 2.0. #3. Chronic normocytic anemia/AOCD: Admission hemoglobin 8.8, MCV 91.2, baseline hemoglobin ranges primarily 9-11, most recently previous 03/28/2025 hemoglobin 9.1, hemoglobin 8.8. On baseline #4. Orthostatic hypotension: Given patient recent increased blood pressures although labile especially dialysis will hold midodrine regimen at this time. #5. CAD: Status post previous PCI 2015, continue Coumadin, statin, Coreg, telmisartan regimen with hold parameters as needed. #6. PAF: continue patient home digoxin and Coumadin regimen, INR 2.3, therapeutic #7. History of torsades, recent as noted symptomatic VT burst: Status post previous AICD placement 2019, Will continue digoxin, coreg regimen. Interrogation attempted in the ED with noted AF with no firing. #8. Hypothyroidism: On levothyroxine. TSH normal. #9. Obesity: Weight loss and lifestyle changes encouraged. #10. Anxiety and depression: Will continue patient home sertraline regimen. #11. Hyperlipidemia: Will continue patient on statin therapy, #12. DVT prophylaxis: Coumadin with INR trending. #13. CODE status: Patient NATALIIA is her daughter who is present and living will is currently in place. Discussed CODE status at length including difference between FULL code, DNR-CCA and DNR-CC status. Following discussions about the differences in these status, requested Full Code status. Laboratory Results 03/29/25 16:03: Magnesium 2.0 03/29/25 16:20: WBC 4.2 L, RBC 2.96 L, Hgb 8.8 L, Hct 27.0 L, MCV 91.2, MCH 29.7, MCHC 32.6, RDW Std Deviation 52.8 H, RDW Coeff of Tana 16.9 H, Plt Count 220, MPV 9.2, Immature Gran % (Auto) 0.200, Neut % (Auto) 67.8, Lymph % (Auto) 15.8 L, Levy % (Auto) 8.0, Eos % (Auto) 7.5 H, Baso % (Auto) 0.7, Absolute Neuts (auto) 2.9, Absolute Lymphs (auto) 0.67 L, Nucleated RBC % 0, ESR 6, PT 24.1 H, INR 2.1, Sodium 139, Potassium 3.7, Chloride 94 L, Carbon Dioxide 30.5, Anion Gap 14, BUN 19, Creatinine 5.66 H, Estim Creat Clear Calc 10.56 L, Est GFR (MDRD) Non-Af 8 L, BUN/Creatinine Ratio 3.4 L, Glucose 101 H, Calcium 7.9, Troponin T High Sens 62 H* 03/29/25 18:13: Troponin T Hi Sens 2 Hr 63 H*, C-React Prot Ext Range < 3.00 03/29/25 21:00: Troponin T Hi Sens 4Hr 66 H* 03/30/25 05:22: WBC 4.5, RBC 2.93 L, Hgb 8.6 L, Hct 26.9 L, MCV 91.8, MCH 29.4, MCHC 32.0, RDW Std Deviation 53.4 H, RDW Coeff of Tana 17.2 H, Plt Count 230, MPV 10.1, Immature Gran % (Auto) 0.400, Neut % (Auto) 70.6 H, Lymph % (Auto) 14.4 L, Levy % (Auto) 7.3, Eos % (Auto) 6.4 H, Baso % (Auto) 0.9, Absolute Neuts (auto) 3.2, Absolute Lymphs (auto) 0.65 L, Nucleated RBC % 0, ESR 4, PT 26.2 H, INR 2.3, Sodium 136, Potassium 3.9, Chloride 95 L, Carbon Dioxide 27.1, Anion Gap 15, BUN 27 H, Creatinine 7.27 H, Estim Creat Clear Calc 8.07 L*, Est GFR (MDRD) Non-Af 6 L, BUN/Creatinine Ratio 3.6 L, Glucose 102 H, Calcium 8.2, Phosphorus 4.0, Magnesium 2.3 H, Total Bilirubin 0.54, AST 23, ALT 19, Alkaline Phosphatase 47, C-React Prot Ext Range < 3.00, Total Protein 5.8 L, Albumin 3.6, Globulin 2.2, Albumin/Globulin Ratio 1.6, TSH 3.440 Echo 03/30/2025 Interpretation Summary Normal LV size. Left ventricular systolic function is normal. The left ventricular ejection fraction is 65 %. Stage 2 diastolic dysfunction. Pulmonary artery systolic pressure is 40 mmHg. Charges/Coding Visit Charges Inpatient E&M: 60932 Subs Hosp L2
[2025-03-30 07:43] LABS: Hematocrit 26.9 % (37-47); Hemoglobin 8.6 g/dL (12.0-15.0); Immature Granulocytes Count 0.020 X10^3/uL (0.0-0.0); Mean Corp Hgb Conc 32.0 g/dL (32-36); Mean Corpuscular Volume 91.8 fL (81-99); Mean Platelet Vol. 10.1 fl (6.2-12.0); NRBC Flagged by Analyzer 0 % (0-5); Platelet Count 230 K/mm3 (150-450); RBC Distribution Width CV 17.2 % (11.6-14.6); RBC Distribution Width SD 53.4 fl (35.1-43.9); Red Blood Count 2.93 M/mm3 (4.2-5.4); White Blood Count 4.5 K/mm3 (4.4-11.0)
[2025-03-30 07:44] LABS: Prothrombin Time (Protime)PT. 26.2 SECONDS (11.7-14.9)
--- NOTE | 2025-03-30 12:31 | STRESSREP ---
Stress Test Report Pharmacologic myocardial perfusion stress test. 59-year-old lady with a history of chest pain, coronary disease, ischemic cardiomyopathy. Resting EKG demonstrates normal sinus rhythm with a rate of 69 bpm. Resting blood pressure is 192/60 mmHg. 0.4 mg of regadenoson was infused per usual protocol followed by rapid intravenous saline flush injection. Continuous EKG monitoring was performed. The maximum heart rate was 83 bpm which was 51% of max impacted heart rate the maximum workload was 1 metabolic equivalent. At rest there were no ST or T wave changes noted to suggest ischemia and at peak infusion nonspecific ST changes were noted which did not meet the criteria for ischemia. No clinical angina is noted. The final blood pressure was 180/52 mmHg. Myocardial perfusion protocol. 12 mCi of technetium 99m sestamibi was injected at rest. 0.4 mg of regadenoson was infused per usual protocol. At peak infusion 36 mCi of technetium 99m sestamibi was injected stress images were obtained stress and rest images were reconstructed and compared in the short axis vertical long and horizontal long axis. Gated images were also obtained. Perfusion SPECT analysis: Review of the stress images demonstrate normal uptake of tracer noted in all areas of the myocardium. The resting images similar demonstrated normal uptake of tracer noted in all areas of the myocardium. No areas of reversibility are noted to suggest ischemia and no previous infarct is noted. Gated SPECT analysis: The gated ejection fraction is 56%. Conclusion: Normal pharmacologic myocardial perfusion stress test. Preserved ejection fraction.
[2025-03-30] MEDS: 0.9% Saline Lock 10 ML Syringe IV ×2 (14:55→19:45)
--- NOTE | 2025-03-30 15:23 | CASEMGMT ---
CONSTANZA CM in to complete JENSEN Form with patient. RN VELVET explained JENSEN Form to patient, patient voiced understanding. Patient signed JENSEN Form and filed in chart. Patient provided with copy of signed JENSEN Form. Patient had no further questions or concerns.
--- NOTE | 2025-03-30 15:30 | NURSING ---
Addendum entered by Kimber Browning 03/31/25 08:57: Dr. Garcia was notified of unsuccessful interrogation attempt. Elizabeth APODACA Original Note: Attempt was made x3 to interrogate Pt ICD, located at L ribcage, but was unsuccessful. Interrogation monitor continuously read identifying device but was never able to read pts ICD. Malinda
--- NOTE | 2025-03-30 16:05 | RAD_ITS ---
PROCEDURE: ABD INC DECUB AND/OR ERECT 03/30/2025 REASON FOR EXAM: CONSTIPATION TECHNIQUE: Procedure Code: RADABDMV Modality: DX Procedure: ABD INC DECUB AND/OR ERECT COMPARISON: None FINDINGS: Limitation: Free air and air-fluid levels can not be assessed on the views obtained. Gastrointestinal: Small amount of gas seen within the left upper quadrant, likely gastric and nonspecific. No asymmetric significant gaseous small bowel dilation to suggest a complete obstruction. No significant gaseous or fecal distention of colon to suggest significant constipation. Nonspecific gas is seen overlying the abdomen as well as the pelvis. If intraperitoneal inflammatory changes are suspected, consider CT with contrast. Soft tissue: Extensive vascular calcifications noted. Soft tissue abnormality is not well assessed by this technique. Lung bases: Bibasal opacities noted which may be due to trace amount of pleural fluid, atelectasis and/or scarring. Osseous: Bony degenerative changes noted. RAD/Abd Inc Decub and/or Erect IMPRESSION: Nonspecific findings. - Findings and recommendations discussed above in detail. Reading Location: [id number]
[2025-03-30] MEDS: Warfarin (PBKC) 3 MG Tablet 9 MG PO (17:14)
[2025-03-30] MEDS: SEVELAMER CARBONATE 800 MG TABLET 4000 MG PO (17:14)
--- NOTE | 2025-03-30 18:31 | EKG12_ITS ---
Test Reason : CHEST BURNING Blood Pressure : */* mmHG Vent. Rate : 72 BPM Atrial Rate : 72 BPM P-R Int : 176 ms QRS Dur : 86 ms QT Int : 510 ms P-R-T Axes : 8 42 10 degrees QTcB Int : 558 ms Critical Test Result: Long QTc Normal sinus rhythm ST & T wave abnormality, consider anterior ischemia Prolonged QT Abnormal ECG When compared with ECG of 29-Mar-2025 20:14, MANUAL COMPARISON REQUIRED DATA IS UNCONFIRMED Confirmed by CALEB DAVIS, LOULOU ([id number]), editorial assistant GALO OLGUIN ([id number]) on 04/01/2025 8:33:18 AM Referred By: Confirmed By: LOULOU ELLIS MD
--- NOTE | 2025-03-30 19:42 | PN.HOSP_ITS ---
Hospitalist Note Patient had runs of NSVT about 7 to 8 weeks since afternoon. one strip looked like changing QRS axes therefore suspicious of torsade. Magnesium was 2.20, confirmed). Due to recurrent NSVT, twelve-lead EKG was done. QTc interval 543 ms. 12 lead EKG shows NSR 66b/m, pr 172 ms. She has PPM/ICD. Pacemaker interrogation was ordered but couldnt be done. Server Manager consulted. Magnesium sulphate 2 gm IV one dose ordered for Prolonged QTc. Web Application Developer is also consulted. Clinical Impression(s) from Imaging Studies Chest X-Ray 03/29/25 16:33 IMPRESSION: 1. Bibasilar atelectasis or pneumonia. 2. Cardiomegaly with mild congestion. 3. No significant change from the prior exam. 4. Bilateral pleural effusions. Reading Location: [facility] Chest CT 03/29/25 18:15 IMPRESSION: 1. Cardiomegaly with small pericardial effusion. 2. Scattered mediastinal lymph nodes some of which are upper limits of normal in size and are most likely reactive lymph nodes. Reading Location: [facility] Echocardiogram 03/29/25 20:38 Interpretation Summary Normal LV size. Left ventricular systolic function is normal. The left ventricular ejection fraction is 65 %. Stage 2 diastolic dysfunction. Pulmonary artery systolic pressure is 40 mmHg. Ordering Physician: Saadia Valencia Performed By: Jane Arnold RDCS Abdomen X-Ray 03/30/25 16:05 IMPRESSION: Nonspecific findings. - Findings and recommendations discussed above in detail. Reading Location: [facility]
[2025-03-30] MEDS: Magnesium Sulfate 2 GM in Dextrose 5%-Water (100mL Bag) 100 ML IV (19:45)
--- NOTE | 2025-03-30 19:57 | CON.PCM.RE_ITS ---
Assessment & Plan Assessment/Plan (1) ESRD (end stage renal disease) on dialysis: (2) Benign essential hypertension: PLAN: Plan Assessment/Plan: Patient is a 59-year-old female with past history of ESRD secondary to ADPKD status post bilateral nephrectomies, hypertension, CAD, paroxysmal atrial fibrillation, ventricular tachycardia, hypothyroidism, hyperlipidemia, anemia, major depressive disorder, and generalized anxiety disorder. Patient presented to hospital on 03/29/2025 with chest pain, abdominal pain and dyspnea while she is getting dialysis on 03/29/2025. Patient was also found to have severe hypertension on presentation. Nephrology is asked to see the patient because of ESRD and for dialysis management. ESRD. Patient usually dialyzes on MWF schedule. Patient was dialyzed yesterday on 03/29/2025 prior to admission. There is no hyperkalemia, metabolic acidosis or significant volume overload today. There is no need for dialysis today. Will plan on dialyzing patient on 04/01/2025 on her usual schedule. Hypertension. BP has been as high as 219/69 mmHg when patient presented on 03/28/2025. BP has trended down since admission. Patient is currently on carvedilol 12.5 mg twice daily, losartan 100 mg daily, and chlorthalidone 12.5 mg daily. Chlorthalidone is unlikely to be effective for BP control in the setting of ESRD. Patient is also anephric from bilateral nephrectomy. I would recommend stopping chlorthalidone and starting calcium channel genesis such as amlodipine instead. HPI Consult Data Date of Consult: 03/31/25 HPI Narrative Reason for Consultation: ESRD. 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 Patient presented to hospital on 03/29/2025 with chest pain, abdominal pain and dyspnea while she is getting dialysis on 03/29/2025. Patient was also found to have severe hypertension on presentation. Nephrology is asked to see the patient because of ESRD and for dialysis management. Patient normally dialyzes on MWF schedule. She was dialyzed prior to admission. Patient denies chest pain, dyspnea, or nausea/vomiting. There has been no diarrhea. Patient does complain of cough which is productive for the past 2 weeks. [facility] Medical History Polycystic kidney disease Sudden cardiac Hypertriglyceridemia Hyperlipidemia History of torsades de pointes Atherosclerosis of coronary artery of [place] heart without angina pectoris Syncope and collapse Ventricular fibrillation Ischemic cardiomyopathy ESRD (end stage renal disease) on dialysis Nonsustained ventricular tachycardia History of recurrent miscarriages, not currently History of DVT (deep vein thrombosis) Congenital polycystic kidney disease History of allergic rhinitis Obesity Benign essential hypertension Home Medications ?Medication ?Instructions ?Recorded ?Last Taken ?Type sertraline 50 mg tablet 75 mg PO QHS depression 01/0803/15/23 History cholecalciferol (vitamin D3) 25 1,000 unit PO QDAY sup plement 10/24/17 03/15/23 History mcg (1,000 unit) tablet sevelamer carbonate 800 mg tablet 4,000 mg PO TID bind er 30 days #90 06/11/21 03/15/23 History tabs calcium carbonate (Tums) 400 mg PO BID 03/30/2203/15 History nitroglycerin 0.4 mg sublingual 0.4 mg sublingual Q5M PRN Chest 10/14/22 03/15/23 Rx tablet Pain #25 tabs ipratropium bromide 21 mcg (0.03 2 spray intranasal DA SHANNON 05/10/23 Unknown History %) nasal spray atorvastatin 10 mg tablet 10 mg PO DAILY cholesterol # 30 tabs 10/11/24 Unknown Rx levothyroxine 25 mcg tablet 25 mcg PO QDAY thyroid 10/02 Unknown History vitamin B complex-vitamin C-folic 1 tab PO QDAY supple ment 10/11/24 Unknown History acid 0.8 mg tablet (Rani-Yahir) warfarin 2 mg tablet 9 mg PO SUTUTHSA blood thinn er 10/11/24 Unknown History warfarin 3 mg tablet 8 mg PO MOWEFR blood thinner 10/11/24 Unknown History zolpidem 10 mg tablet 10 mg PO QHS PRN insomnia Unknown History digoxin 125 mcg (0.125 mg) tablet 125 mcg PO QODAY hea rt #30 tabs 01/09/25 Unknown Rx carvedilol 6.25 mg tablet 6.25 mg PO BID blood pressur e 03/29/25 Unknown History telmisartan 40 mg tablet 40 mg PO BID blood pressure 03/29/25 Unknown History Allergy/AdvReac Type Severity Reaction Status Date / Time amoxicillin Allergy Rash Verified 03/29/25 15:14 doxercalciferol (From Allergy Hives Verified 03/29/25 15:14 Hectorol) etodolac Allergy Rash Verified 03/29/25 15:14 Penicillins (PCN) Allergy Rash Verified 03/29/25 15:14 sulfamethoxazole (From Allergy Rash Verified 03/29/25 15:14 Bactrim) tramadol Allergy Rash Verified 03/29/25 15:14 trimethoprim (From Bactrim) Allergy Rash Verified 03/29/25 15:14 strawberry AdvReac Vomiting Verified 03/29/25 15:14 Family History Father Hypertension Kidney disease Mother Diabetes Family History no significant family his Surgical History Hx of kidney removal History of implantable cardiac defibrillator (ICD) (11/22/19) History of coronary artery stent placement (04/22/16) fistulogram History of thyroid surgery Surgical History no surgical history Social History household members: none Smoking Status: Never smoker alcohol intake: never substance use type: does not use diet: other caffeine: No what type of physical activity do you participate in: none seatbelt use: always do you feel safe at home: Yes ROS ROS Narrative As per HPI, otherwise noncontributory. Physical Exam Narrative General: Alert and oriented x3, NAD. HEENT: Normocephalic, atraumatic. Mucous membrane moist without erythema. PERRLA, EOMI. Hearing is intact. Neck: Supple, no JVD. Trachea is midline. No thyromegaly or lymphadenopathy. Cardiovascular: Normal S1, S2. No rubs, murmurs, or gallops. Respiratory: Lungs are clear to auscultation bilaterally. No wheezing, rhonchi, or rales. Abdomen: Normal bowel sounds, soft, nontender, no guarding or rebound, no organomegaly. Extremities: No clubbing, cyanosis, or edema. Musculoskeletal: Full passive range of motion, no joint swelling. Psychiatric: Normal mood and affect. Skin: Warm and dry, no rash. Neurologic: Cranial nerve II to XII are grossly intact. No focal neurologic deficits. Lab / Micro Data 03/30/25 05:22 03/30/25 05:22 Labs: Laboratory Results - last 24 hr 03/29/25 16:20: ESR 6 03/29/25 18:13: C-React Prot Ext Range < 3.00 03/29/25 21:00: Troponin T Hi Sens 4Hr 66 H* 03/30/25 05:22: WBC 4.5, RBC 2.93 L, Hgb 8.6 L, Hct 26.9 L, MCV 91.8, MCH 29.4, MCHC 32.0, RDW Std Deviation 53.4 H, RDW Coeff of Tana 17.2 H, Plt Count 230, MPV 10.1, Immature Gran % (Auto) 0.400, Neut % (Auto) 70.6 H, Lymph % (Auto) 14.4 L, [place] % (Auto) 7.3, Eos % (Auto) 6.4 H, Baso % (Auto) 0.9, Absolute Neuts (auto) 3.2, Absolute Lymphs (auto) 0.65 L, Nucleated RBC % 0, ESR 4, PT 26.2 H, INR 2.3, Sodium 136, Potassium 3.9, Chloride 95 L, Carbon Dioxide 27.1, Anion Gap 15, BUN 27 H, Creatinine 7.27 H, Estim Creat Clear Calc 8.07 L*, Est GFR (MDRD) Non-Af 6 L, BUN/Creatinine Ratio 3.6 L, Glucose 102 H, Calcium 8.2, Phosphorus 4.0, Magnesium 2.3 H, Total Bilirubin 0.54, AST 23, ALT 19, Alkaline Phosphatase 47, C-React Prot Ext Range < 3.00, Total Protein 5.8 L, Albumin 3.6, Globulin 2.2, Albumin/Globulin Ratio 1.6, TSH 3.440 Rhythm Strip Rhythm Strip: Sinus Rhythm Rate: 62 Ectopy: None Imaging Radiology Impression Echocardiogram 03/29/25 20:38 Interpretation Summary Normal LV size. Left ventricular systolic function is normal. The left ventricular ejection fraction is 65 %. Stage 2 diastolic dysfunction. Pulmonary artery systolic pressure is 40 mmHg. Ordering Physician: Saadia Valencia Performed By: Jane Arnold RDCS Abdomen X-Ray 03/30/25 16:05 IMPRESSION: Nonspecific findings. - Findings and recommendations discussed above in detail. Reading Location: [id number]
--- NOTE | 2025-03-30 20:02 | PN.HOSP_ITS ---
Hospitalist Note Patient with intermittent bursts torsades, symptomatic. Hospitalist team reviewed case with Cardiology Dr. Garvin, recommended transition to the ICU and will initiate Isoproterenol at 5 mcg/min. Will also continue mag infusion. Changed her status to full admission. Yarn Mercerizer Operator Helper and PCU updated about plan of care.
[2025-03-30] MEDS: DEXTROSE 5% IV (21:14)
[2025-03-30] MEDS: WATER IV (21:14)
[2025-03-30] MEDS: ISOPROTERENOL HCL IV (21:14)
[2025-03-31] VITALS (23 sets, daily range): BP systolic 139–183; BP diastolic 41–75; PULSE 60–107; RESP 14–30; O2SAT 87–100; BMI 32.5
[2025-03-31] MEDS: WATER IV ×4 (00:35→11:14)
[2025-03-31] MEDS: ISOPROTERENOL HCL IV ×4 (00:35→11:14)
[2025-03-31] MEDS: DEXTROSE 5% IV ×4 (00:35→11:14)
[2025-03-31 06:23] LABS: Hematocrit 27.7 % (37-47); Hemoglobin 9.1 g/dL (12.0-15.0); Immature Granulocytes Count 0.020 X10^3/uL (0.0-0.0); Mean Corp Hgb Conc 32.9 g/dL (32-36); Mean Corpuscular Volume 90.5 fL (81-99); Mean Platelet Vol. 9.1 fl (6.2-12.0); NRBC Flagged by Analyzer 0 % (0-5); Platelet Count 232 K/mm3 (150-450); RBC Distribution Width CV 17.6 % (11.6-14.6); RBC Distribution Width SD 54.9 fl (35.1-43.9); Red Blood Count 3.06 M/mm3 (4.2-5.4); White Blood Count 6.5 K/mm3 (4.4-11.0)
[2025-03-31 07:06] LABS: Cholesterol 155 mg/dL (<=200); Low Density Lipoprotein Calc. 95 mg/dL; Triglycerides 166 mg/dL; Very Low Density Lipoprotein 33 mg/dL (5-40); cholesterol:hdl ratio screen 5.83
[2025-03-31 07:07] LABS: Anion Gap 18 (5-15); BUN 37 mg/dL (4-19); BUN/Creat Ratio 4.0 RATIO (10-20); Calcium,Total 8.0 mg/dL (7.6-11.0); Carbon Dioxide 23.0 mmol/L (21.0-32.0); Chloride 89 mmol/L (98-108); Estimated Creatinine Clearance 6.33 ml/min (50-250); Glucose 156 mg/dL (70-99); Potassium 3.5 mmol/L (3.3-5.1)
--- NOTE | 2025-03-31 08:02 | EKG12_ITS ---
Test Reason : O Blood Pressure : */* mmHG Vent. Rate : 81 BPM Atrial Rate : 81 BPM P-R Int : 160 ms QRS Dur : 88 ms QT Int : 498 ms P-R-T Axes : 45 43 57 degrees QTcB Int : 578 ms Critical Test Result: Long QTc Sinus rhythm with frequent and consecutive Premature ventricular complexes in a pattern of bigeminy Nonspecific ST and T wave abnormality Abnormal ECG When compared with ECG of 30-Mar-2025 19:03, MANUAL COMPARISON REQUIRED DATA IS UNCONFIRMED Confirmed by CALEB DAVIS, LOULOU ([id number]), editor greeting card GALO OLGUIN ([id number]) on 04/01/2025 10:41:18 AM Referred By: Confirmed By: LOULOU ELLIS MD
--- NOTE | 2025-03-31 08:25 | CON.PCM.CA_ITS ---
Assessment & Plan Assessment/Plan (1) Torsades de pointes: PLAN: She does present with symptomatic torsade de pointes. The plan will be to try and keep her potassium at 4.0 or higher. She will be given extra potassium this morning not with standing renal problems. She is also on the Isopril which will be continued but we will reduce the dose to 2.5 mics per minute. Will continue to monitor her with serial EKGs. (2) Accelerated essential hypertension: PLAN: Her blood pressure was elevated overnight. Will adjust her medications and increase amlodipine to 10 mg a day and continue her other current medications. Will discuss with nephrology about continued use of [place]. (3) History of implantable cardiac defibrillator (ICD): PLAN: She is status post implantable defibrillator. No defibrillator discharges have been noted. (4) History of coronary artery stent placement: PLAN: She does have a history of coronary artery disease coronary artery stenting of the right coronary artery and the left anterior descending artery. Stress test performed during this admission demonstrates no evidence of ischemia. (5) Benign essential hypertension: PLAN: Her blood pressure is elevated and we will try and make appropriate adjustments. Echocardiogram demonstrated preserved ejection fraction of 65%. (6) Hyperlipidemia: QUALIFIERS: Hyperlipidemia type: unspecified Qualified Code(s): E 78.5 - Hyperlipidemia, unspecified PLAN: She does have a history of hyperlipidemia and will continue with risk factor modification. HPI Consult Data Date of Consult: 03/31/25 HPI Narrative HPI Narrative: SPENCER ALLEN, is a 59 F who presents to the emergency room with complaints of chest discomfort, dyspnea and elevated blood pressure. She was also noted to have a 10 beat run of a wide-complex tachycardia. She was admitted to the telemetry unit and underwent an echocardiogram which demonstrated preserved ejection fraction as well as myocardial perfusion stress test which demonstrated no evidence of ischemia. While on the telemetry floor the patient was noted to have wide-complex tachycardia in the pattern of torsade. Cardiology was called for evaluation and management. Patient was noted to have a prolonged QT interval. She had been on digoxin. She has a history of coronary artery disease with a known high-grade lesion of the right coronary artery diagnosed in April 2016 after she had developed torsade de pointes. She underwent angioplasty and stenting of the above. She did have angioplasty and stenting of her moderate 60 to 70% lesion in the left anterior descending artery which was stented and a moderate 60% lesion in the circumflex artery which was managed medically. As a result of her rhythm abnormalities of the above she also underwent implantation of a subcutaneous defibrillator in July 2016. She had generator changed in November 2019. She continues on dialysis 3 times a week M,W, and F. She also has a history of hypertension, hyperparathyroidism, and anemia. She does have her ICD checked routinely through [facility]. Her INR is managed by her PCP. When she was last seen in the office,She denies chest, arm, jaw, or neck discomfort. She states infrequent palpitations that she describes as fast. She denies bilateral lower extremity edema. She denies claudication. She denies shortness of breath with activity, shortness of breath at rest, orthopnea, or PND. She denies chronic cough. She denies significant, sudden weight gain. She states lightheadedness, dizziness, near-syncope, and syncope. She denies blood in urine, blood in stool, or epistaxis. He denies fever with chills. She denies myalgia. She acknowledges fatigue. Her exercise level has remained stable. EKG on the telemetry floor demonstrated prolonged QT of 540 ms and resulting torsade de pointes. She was transferred to the telemetry intensive care unit and started on intravenous Isopril. This morning she is doing so much better with no further rhythm abnormalities present. [facility] Medical History Polycystic kidney disease Sudden cardiac Hypertriglyceridemia Hyperlipidemia History of torsades de pointes Atherosclerosis of coronary artery of [place]' heart without angina pectoris Syncope and collapse Ventricular fibrillation Ischemic cardiomyopathy ESRD (end stage renal disease) on dialysis Nonsustained ventricular tachycardia History of recurrent miscarriages, not currently History of DVT (deep vein thrombosis) Congenital polycystic kidney disease History of allergic rhinitis Obesity Benign essential hypertension Home Medications ?Medication ?Instructions ?Recorded ?Last Taken ?Type sertraline 50 mg tablet 75 mg PO QHS depression 01/0803/15/23 History cholecalciferol (vitamin D3) 25 1,000 unit PO QDAY sup plement 10/24/17 03/15/23 History mcg (1,000 unit) tablet sevelamer carbonate 800 mg tablet 4,000 mg PO TID bind er 30 days #90 06/11/21 03/15/23 History tabs calcium carbonate (Tums) 400 mg PO BID 03/30/2203/15 History nitroglycerin 0.4 mg sublingual 0.4 mg sublingual Q5M PRN Chest 10/14/22 03/15/23 Rx tablet Pain #25 tabs ipratropium bromide 21 mcg (0.03 2 spray intranasal DA SHANNON 05/10/23 Unknown History %) nasal spray atorvastatin 10 mg tablet 10 mg PO DAILY cholesterol # 30 tabs 10/11/24 Unknown Rx levothyroxine 25 mcg tablet 25 mcg PO QDAY thyroid 10/02 Unknown History vitamin B complex-vitamin C-folic 1 tab PO QDAY supple ment 10/11/24 Unknown History acid 0.8 mg tablet (Rani-Yahir) warfarin 2 mg tablet 9 mg PO SUTUTHSA blood thinn er 10/11/24 Unknown History warfarin 3 mg tablet 8 mg PO MOWEFR blood thinner 10/11/24 Unknown History zolpidem 10 mg tablet 10 mg PO QHS PRN insomnia Unknown History digoxin 125 mcg (0.125 mg) tablet 125 mcg PO QODAY hea rt #30 tabs 01/09/25 Unknown Rx carvedilol 6.25 mg tablet 6.25 mg PO BID blood pressur e 03/29/25 Unknown History telmisartan 40 mg tablet 40 mg PO BID blood pressure 03/29/25 Unknown History Allergy/AdvReac Type Severity Reaction Status Date / Time amoxicillin Allergy Rash Verified 03/29/25 15:14 doxercalciferol (From Allergy Hives Verified 03/29/25 15:14 Hectorol) etodolac Allergy Rash Verified 03/29/25 15:14 Penicillins (PCN) Allergy Rash Verified 03/29/25 15:14 sulfamethoxazole (From Allergy Rash Verified 03/29/25 15:14 Bactrim) tramadol Allergy Rash Verified 03/29/25 15:14 trimethoprim (From Bactrim) Allergy Rash Verified 03/29/25 15:14 strawberry AdvReac Vomiting Verified 03/29/25 15:14 Family History Father Hypertension Kidney disease Mother Diabetes Family History no significant family his Surgical History Hx of kidney removal History of implantable cardiac defibrillator (ICD) (11/22/19) History of coronary artery stent placement (04/22/16) fistulogram History of thyroid surgery Surgical History no surgical history Social History household members: none Smoking Status: Never smoker alcohol intake: never substance use type: does not use diet: other caffeine: No what type of physical activity do you participate in: none seatbelt use: always do you feel safe at home: Yes ROS Constitutional Constitutional: Denies fever(s) or weight loss Eyes Eyes: Reports systems reviewed and no addt'l complaints, except as documented ENT HEENT: Reports systems reviewed and no addt'l complaints, except as documented Cardiovascular Cardiovascular: Denies chest pain at rest, chest pain with activity, dyspnea at rest, dyspnea on exertion, edema, palpitations or paroxysmal nocturnal dyspnea Respiratory/Chest Respiratory/Chest: Denies dyspnea on exertion, productive cough, shortness of breath at rest or shortness of breath with exertion Gastrointestinal Gastrointestinal: Denies change in bowel habits, nausea, vomiting or weight changes Genitourinary Genitourinary: Denies difficulty urinating Musculoskeletal Musculoskeletal: Denies joint stiffness or muscle weakness Integumentary Integumentary: Denies lesions Neurologic Neurologic: Denies dizziness or syncope Psychiatric Psychiatric: Denies anxiety Endocrine Endocrinology: Denies excessive sweating or fatigue Hematologic/Lymphatic Hematologic/Lymphatic: Denies anemia Allergic/Immunologic Allergic/Immunologic: Denies seasonal rhinorrhea Objective Data Vital Signs: Vital Signs Temp Pulse Resp BP Pulse Ox O2 Del Method O2 Flow Rate 98.0 F 88 23 H 163/62 H 100 Nasal Cannula 2 03/30/25 20:30 03/31/25 06:00 03/31/25 06:00 03/31/25 06:00 03/31/25 06:00 03/31/25 06:00 03/31/25 06:00 Oxygen Flow Rate (L/min) 2 Oxygen Delivery Method Nasal Cannula Weight: 178 lb 5.663 oz Body Mass Index (BMI) 32.5 Intake & Output: Intake and Output for Last 24 Hours 03/29/25 03/30/25 03/31/25 23:59 23:59 23:59 Intake Total 400 / 400 104 / 104 676.25 / 676.25 Output Total 0 / 0 Balance 400 / 400 104 / 104 676.25 / 676.25 Lab / Micro Data 03/31/25 06:08 03/31/25 06:08 Labs: Laboratory Results - last 24 hr 03/31/25 06:08: WBC 6.5, RBC 3.06 L, Hgb 9.1 L, Hct 27.7 L, MCV 90.5, MCH 29.7, MCHC 32.9, RDW Std Deviation 54.9 H, RDW Coeff of Tana 17.6 H, Plt Count 232, MPV 9.1, Immature Gran % (Auto) 0.300, Neut % (Auto) 77.4 H, Lymph % (Auto) 11.1 L, [place] % (Auto) 8.0, Eos % (Auto) 2.9, Baso % (Auto) 0.3, Absolute Neuts (auto) 5.0, Absolute Lymphs (auto) 0.72 L, Nucleated RBC % 0, Sodium 130 L, Potassium 3.5, Chloride 89 L, Carbon Dioxide 23.0, Anion Gap 18 H, BUN 37 H, Creatinine 9.32 H*, Estim Creat Clear Calc 6.33 L*, Est GFR (MDRD) Non-Af 4 L, B UN/Creatinine Ratio 4.0 L, Glucose 156 H, Calcium 8.0, Triglycerides 166, Cholesterol 155, LDL Cholesterol, Calc 95, VLDL Cholesterol 33, HDL Cholesterol 27 L, Cholesterol/HDL Ratio 5.83 Rhythm Strip Rhythm Strip: Sinus Rhythm Rate: 62 Ectopy: None Cardiology Labs/Tests 03/31/25 06:08: WBC 6.5, RBC 3.06 L, Hgb 9.1 L, Hct 27.7 L, MCV 90.5, MCH 29.7, MCHC 32.9, Plt Count 232, MPV 9.1, Immature Gran % (Auto) 0.300, Neut % (Auto) 77.4 H, Lymph % (Auto) 11.1 L, [place] % (Auto) 8.0, Eos % (Auto) 2.9, Baso % (Auto) 0.3, Absolute Neuts (auto) 5.0, Nucleated RBC % 0, Sodium 130 L, Potassium 3.5, Chloride 89 L, Carbon Dioxide 23.0, Anion Gap 18 H, BUN 37 H, C reatinine 9.32 H*, Est GFR (MDRD) Non-Af 4 L, BUN/Creatinine Ratio 4.0 L, G lucose 156 H, Calcium 8.0, Triglycerides 166, Cholesterol 155, VLDL Cholesterol 33, HDL Cholesterol 27 L, Cholesterol/HDL Ratio 5.83 Rhythm: EKG: ECHO: Stress Test: Cardiac Cath: PCI: CT Surgery: Holter monitor: EPS: PPM: CXR: Chest CT Scan: Radiography Diagnostic Testing: Radiology Impression Echocardiogram 03/29/25 20:38 Interpretation Summary Normal LV size. Left ventricular systolic function is normal. The left ventricular ejection fraction is 65 %. Stage 2 diastolic dysfunction. Pulmonary artery systolic pressure is 40 mmHg. Ordering Physician: Saadia Valencia Performed By: Jane Arnold, CS Abdomen X-Ray 03/30/25 16:05 IMPRESSION: Nonspecific findings. - Findings and recommendations discussed above in detail. Reading Location: [facility] Risk Score for UA/STEMI Assesmment (YES = 1) Risk Stratification Applicable: No
--- NOTE | 2025-03-31 08:25 | EKG12_ITS ---
Test Reason : ARRYTHMIA Blood Pressure : */* mmHG Vent. Rate : 66 BPM Atrial Rate : 66 BPM P-R Int : 172 ms QRS Dur : 86 ms QT Int : 518 ms P-R-T Axes : 5 39 60 degrees QTcB Int : 543 ms Normal sinus rhythm Nonspecific ST and T wave abnormality Prolonged QT Abnormal ECG When compared with ECG of 30-Mar-2025 05:12, MANUAL COMPARISON REQUIRED DATA IS UNCONFIRMED Confirmed by CALEB DAVIS, LOULOU ([id number]), editor school photograph GALO OLGUIN ([id number]) on 04/01/2025 10:32:28 AM Referred By: AMANDA Confirmed By: LOULOU ELLIS MD
[2025-03-31 08:44] LABS: Magnesium 2.8 mg/dL (1.5-2.2)
[2025-03-31] MEDS: TITRATION PARAMETER CHANGE 1 EACH IV (08:53)
[2025-03-31] MEDS: SEVELAMER CARBONATE 800 MG TABLET 4000 MG PO ×3 (08:53→16:53)
[2025-03-31] MEDS: Potassium Chloride Oral Tablet 20 MEQ 40 MEQ PO (09:04)
--- NOTE | 2025-03-31 09:51 | PN.HOSP_ITS ---
Subjective Subjective She went into torsades last night and had to be transferred back to the ICU. No chest pain or lightheadedness. Objective Data Objective Data Vital Signs: Vital Signs Temp Pulse Resp BP Pulse Ox O2 Del Method O2 Flow Rate 98.0 F 72 18 151/65 H 95 Room Air 2 03/30/25 20:30 03/31/25 09:00 03/31/25 09:00 03/31/25 09:00 03/31/25 09:00 03/31/25 09:00 03/31/25 06:00 Oxygen Flow Rate (L/min) 2 Oxygen Delivery Method Room Air Weight: 178 lb 5.663 oz Body Mass Index (BMI) 32.5 Intake & Output: Intake and Output for Last 24 Hours 03/30/25 03/31/25 04/01/25 03:59 03:59 03:59 Intake Total 400 / 400 564 / 564 386.88 / 386.88 Output Total 0 / 0 0 / 0 Balance 400 / 400 564 / 564 386.88 / 386.88 Lab / Micro Data 03/31/25 06:08 03/31/25 06:08 Labs: Laboratory Results - last 24 hr 03/31/25 06:08: WBC 6.5, RBC 3.06 L, Hgb 9.1 L, Hct 27.7 L, MCV 90.5, MCH 29.7, MCHC 32.9, RDW Std Deviation 54.9 H, RDW Coeff of Tana 17.6 H, Plt Count 232, MPV 9.1, Immature Gran % (Auto) 0.300, Neut % (Auto) 77.4 H, Lymph % (Auto) 11.1 L, [place] % (Auto) 8.0, Eos % (Auto) 2.9, Baso % (Auto) 0.3, Absolute Neuts (auto) 5.0, Absolute Lymphs (auto) 0.72 L, Nucleated RBC % 0, Sodium 130 L, Potassium 3.5, Chloride 89 L, Carbon Dioxide 23.0, Anion Gap 18 H, BUN 37 H, Creatinine 9.32 H*, Estim Creat Clear Calc 6.33 L*, Est GFR (MDRD) Non-Af 4 L, B UN/Creatinine Ratio 4.0 L, Glucose 156 H, Calcium 8.0, Magnesium 2.8 H, Triglycerides 166, Cholesterol 155, LDL Cholesterol, Calc 95, VLDL Cholesterol 33, HDL Cholesterol 27 L, Cholesterol/HDL Ratio 5.83 Radiography Diagnostic Testing: Radiology Impression Echocardiogram 03/29/25 20:38 Interpretation Summary Normal LV size. Left ventricular systolic function is normal. The left ventricular ejection fraction is 65 %. Stage 2 diastolic dysfunction. Pulmonary artery systolic pressure is 40 mmHg. Ordering Physician: Saadia Valencia Performed By: Jane Arnold RDCS Abdomen X-Ray 03/30/25 16:05 IMPRESSION: Nonspecific findings. - Findings and recommendations discussed above in detail. Reading Location: [facility] Rhythm Strip Rhythm Strip: Sinus Rhythm Rate: 62 Ectopy: None Physical Exam Narrative General: Alert, Oriented x3, Cooperative, No apparent distress HEENT: Atraumatic, PERRLA, EOMI, Normocephalic Oral: Moist Mucosa Neck: Supple, No JVD Lungs: Diminished, Normal air movement, No rhonchi, No wheeze, No rales Cardiovascular: Regular rate, Regular Rhythm, Normal S1, Normal S2, No murmurs Abdomen: Soft, Non Tender, Non-Distended, No Hepato-splenomegaly Extremities: No edema, Capillary Refill Less than 3 Seconds Skin: No rashes, No breakdown Musculoskeletal: No Tenderness to Palpation of Joints or Extremities Neurological: No focal neurological deficits, Motor Exam 5/5 strength throughout, Sensory exam intact to light touch and pain Psych/Mental Status: Normal Affect, Appropriate Assessment & Plan Assessment/Plan (1) Chest pressure: PLAN: Plan #1. Hypertensive urgency: Patient blood pressure is high chronically systolic more than 200. At home patient is on telmisartan, carvedilol and digoxin but not on diuretic. Patient is started on chlorthalidone 12.5 mg daily. On IV hydralazine and labetalol as needed SBP more than 180 mmHg. Blood pressure still high 180/57, 172/56. and blood pressure is controlled about systolic 150s patient can be discharged and advised follow-up with aquatic performer for better control of blood pressure. 2. Atypical chest pain, localized: ACS ruled out. Twelve-lead EKG nondiagnostic of ACS. Serial troponins were mildly elevated 60-63 and 66. patient had nuclear stress test negative for acute ischemia. ACS ruled out. 2D echo shows EF 65% with stage II diastolic dysfunction, mild TR PASP 43. Overall suggestive of chronic HFpEF #2. Polycystic kidney disease status post bilateral nephrectomy with ESRD: Patient with ongoing dialysis Tuesday, Tuesday, Tuesday,: Patient did not have any need for hemodialysis. Head Of Ethics And Compliance consulted electrolytes in normal limit. BUN/creatinine high 27/7.27. Serum magnesium 2.0. 03/31/2025: Appreciate nephrology's assistance #3. Chronic normocytic anemia/AOCD: Admission hemoglobin 8.8, MCV 91.2, baseline hemoglobin ranges primarily 9-11, most recently previous 03/28/2025 hemoglobin 9.1, hemoglobin 8.8. On baseline #4. Orthostatic hypotension: Given patient recent increased blood pressures although labile especially dialysis will hold midodrine regimen at this time. #5. CAD: Status post previous PCI 2015, continue Coumadin, statin, Coreg, telmisartan regimen with hold parameters as needed. #6. PAF: continue patient home digoxin and Coumadin regimen, INR 2.3, therapeutic #7. History of torsades, recent as noted symptomatic VT burst: Status post previous AICD placement 2019, Will continue digoxin, coreg regimen. Interrogation attempted in the ED with noted AF with no firing. 03/31/2025: Transferred to the ICU overnight for symptomatic torsades, appreciate cardiology's assistance. Will maintain potassium greater than 4 and magnesium is 2.8 today #8. Hypothyroidism: On levothyroxine. TSH normal. #9. Obesity: Weight loss and lifestyle changes encouraged. #10. Anxiety and depression: Will continue patient home sertraline regimen. #11. Hyperlipidemia: Will continue patient on statin therapy, DVT: Coumadin Charges/Coding Visit Charges Inpatient E&M: 24257 Subs Hosp L2
[2025-03-31 15:35] LABS: Prothrombin Time (Protime)PT. 29.6 SECONDS (11.7-14.9)
[2025-03-31] MEDS: Warfarin (PBKC) 3 MG Tablet 9 MG PO (16:53)
[2025-03-31] MEDS: 0.9% Saline Lock 10 ML Syringe IV (16:54)
[2025-04-01] VITALS (31 sets, daily range): BP systolic 153–208; BP diastolic 48–80; PULSE 53–76; RESP 15–26; TEMP 36.2–36.4; O2SAT 91–98; BMI 32.8; BMI 33.0; BMI 31.9
[2025-04-01 06:06] LABS: Hematocrit 27.6 % (37-47); Hemoglobin 9.1 g/dL (12.0-15.0); Immature Granulocytes Count 0.030 X10^3/uL (0.0-0.0); Mean Corp Hgb Conc 33.0 g/dL (32-36); Mean Corpuscular Volume 91.4 fL (81-99); Mean Platelet Vol. 9.2 fl (6.2-12.0); NRBC Flagged by Analyzer 0 % (0-5); Platelet Count 246 K/mm3 (150-450); RBC Distribution Width CV 18.0 % (11.6-14.6); RBC Distribution Width SD 58.0 fl (35.1-43.9); Red Blood Count 3.02 M/mm3 (4.2-5.4); White Blood Count 7.2 K/mm3 (4.4-11.0)
[2025-04-01 06:39] LABS: Anion Gap 18 (5-15); BUN 50 mg/dL (4-19); BUN/Creat Ratio 4.5 RATIO (10-20); Calcium,Total 7.7 mg/dL (7.6-11.0); Carbon Dioxide 22.4 mmol/L (21.0-32.0); Chloride 91 mmol/L (98-108); Estimated Creatinine Clearance 5.33 ml/min (50-250); Glucose 91 mg/dL (70-99); Potassium 4.5 mmol/L (3.3-5.1)
--- NOTE | 2025-04-01 06:46 | PN.CARD_ITS ---
Subjective Subjective Patient seen and evaluated. Doing well. No complaints. No further rhythm disturbances Objective Data Vital Signs: Vital Signs Temp Pulse Resp BP Pulse Ox O2 Del Method O2 Flow Rate 98.0 F 65 16 168/65 H 95 Nasal Cannula 2 03/30/25 20:30 04/01/25 06:00 04/01/25 06:00 04/01/25 06:00 04/01/25 06:00 04/01/25 06:00 04/01/25 06:00 Oxygen Flow Rate (L/min) 2 Oxygen Delivery Method Nasal Cannula Weight: 179 lb 7.3 oz Body Mass Index (BMI) 32.8 Intake & Output: Intake and Output for Last 24 Hours 03/30/25 03/31/25 04/01/25 23:59 23:59 23:59 Intake Total 104 / 104 1015.00 / 1015.00 Output Total 0 / 0 0 / 0 Balance 104 / 104 1015.00 / 1015.00 0 / 0 Lab / Micro Data 04/01/25 05:55 04/01/25 05:55 Labs: Laboratory Results - last 24 hr 03/31/25 06:08: Sodium 130 L, Potassium 3.5, Chloride 89 L, Carbon Dioxide 23.0, Anion Gap 18 H, BUN 37 H, Creatinine 9.32 H*, Estim Creat Clear Calc 6.33 L*, E st GFR (MDRD) Non-Af 4 L, BUN/Creatinine Ratio 4.0 L, Glucose 156 H, Calcium 8.0, Magnesium 2.8 H, Triglycerides 166, Cholesterol 155, LDL Cholesterol, Calc 95, VLDL Cholesterol 33, HDL Cholesterol 27 L, Cholesterol/HDL Ratio 5.83 03/31/25 15:15: PT 29.6 H, INR 2.7 04/01/25 05:55: WBC 7.2, RBC 3.02 L, Hgb 9.1 L, Hct 27.6 L, MCV 91.4, MCH 30.1, MCHC 33.0, RDW Std Deviation 58.0 H, RDW Coeff of Tana 18.0 H, Plt Count 246, MPV 9.2, Immature Gran % (Auto) 0.400, Neut % (Auto) 66.8, Lymph % (Auto) 16.4 L, [place] % (Auto) 7.5, Eos % (Auto) 8.2 H, Baso % (Auto) 0.7, Absolute Neuts (auto) 4.8, Absolute Lymphs (auto) 1.18, Nucleated RBC % 0, Sodium 131 L, Potassium 4.5, Chloride 91 L, Carbon Dioxide 22.4, Anion Gap 18 H, BUN 50 H, Creatinine 11.10 H*, Estim Creat Clear Calc 5.33 L*, Est GFR (MDRD) Non-Af 4 L, B UN/Creatinine Ratio 4.5 L, Glucose 91, Calcium 7.7 Rhythm Strip Rhythm Strip: Sinus Rhythm Rate: 62 Ectopy: None Cardiology Labs/Tests 03/31/25 06:08: Sodium 130 L, Potassium 3.5, Chloride 89 L, Carbon Dioxide 23.0, Anion Gap 18 H, BUN 37 H, Creatinine 9.32 H*, Est GFR (MDRD) Non-Af 4 L, B UN/Creatinine Ratio 4.0 L, Glucose 156 H, Calcium 8.0, Magnesium 2.8 H, Triglycerides 166, Cholesterol 155, VLDL Cholesterol 33, HDL Cholesterol 27 L, Cholesterol/HDL Ratio 5.83 03/31/25 15:15: PT 29.6 H, INR 2.7 04/01/25 05:55: WBC 7.2, RBC 3.02 L, Hgb 9.1 L, Hct 27.6 L, MCV 91.4, MCH 30.1, MCHC 33.0, Plt Count 246, MPV 9.2, Immature Gran % (Auto) 0.400, Neut % (Auto) 66.8, Lymph % (Auto) 16.4 L, [place] % (Auto) 7.5, Eos % (Auto) 8.2 H, Baso % (Auto) 0.7, Absolute Neuts (auto) 4.8, Nucleated RBC % 0, Sodium 131 L, Potassium 4.5, Chloride 91 L, Carbon Dioxide 22.4, Anion Gap 18 H, BUN 50 H, C reatinine 11.10 H*, Est GFR (MDRD) Non-Af 4 L, BUN/Creatinine Ratio 4.5 L, Glucose 91, Calcium 7.7 Rhythm: EKG: ECHO: Stress Test: Cardiac Cath: PCI: CT Surgery: Holter monitor: EPS: PPM: CXR: Chest CT Scan: Physical Exam Const alert, oriented x3 and no apparent distress General Appearance: cooperative HEENT hearing grossly normal bilaterally Head and Scalp: atraumatic Eyes EOMs intact bilaterally Neck General: normal visual inspection Chest inspection of chest normal and palpation of chest normal Resp normal respiratory effort Auscultation: clear to auscultation bilaterally Cardio regular rate, regular rhythm, S1 normal heart sound and S2 normal heart sound Jugular Venous Distention: JVD GI normal to inspection, nondistended, normoactive bowel sounds Extremity normal capillary refill and no pedal edema Peripheral Pulses: Yes pulses 2+ throughout and femoral pulses present Skin no rashes or lesions noted Neuro oriented x3 and CN's II-XII intact bilaterally Psych Appearance: grossly normal and appropriate Assessment & Plan Assessment/Plan (1) Torsades de pointes: PLAN: She does present with symptomatic torsade de pointes. This was likely due to digoxin. The above has resolved. Isopril can be discontinued She can undergo dialysis today then consider discharge with outpatient Holter monitor. (2) Accelerated essential hypertension: PLAN: Her blood pressure was elevated overnight. Continue current antihypertensive medications. (3) History of implantable cardiac defibrillator (ICD): PLAN: She is status post implantable defibrillator. No defibrillator discharges have been noted. (4) History of coronary artery stent placement: PLAN: She does have a history of coronary artery disease coronary artery stenting of the right coronary artery and the left anterior descending artery. Stress test performed during this admission demonstrates no evidence of ischemia. (5) Benign essential hypertension: PLAN: Her blood pressure is elevated and we will try and make appropriate adjustments. Echocardiogram demonstrated preserved ejection fraction of 65%. (6) Hyperlipidemia: QUALIFIERS: Hyperlipidemia type: unspecified Qualified Code(s): E 78.5 - Hyperlipidemia, unspecified PLAN: She does have a history of hyperlipidemia and will continue with risk factor modification.
[2025-04-01] MEDS: 0.9% Normal Saline 1,000 ML IV.SOLN. 1000 ML OPERA.SITE (08:41)
[2025-04-01] MEDS: PureFlow B 3K Dialysis Soln 1 BAG 6 BAG PF (08:41)
--- NOTE | 2025-04-01 10:59 | CON.PCM.RE_ITS ---
Assessment & Plan Assessment/Plan (1) ESRD (end stage renal disease) on dialysis: PLAN: Seen on dialysis today. See orders/flowsheets. Will use 3K bath in view of arrhythmia. HPI Consult Data Date of Consult: 04/01/25 HPI Narrative Reason for Consultation: ESRD HPI Narrative: SPENCER ALLEN, is a 59 F who presents to the hospital with tachyarrhythmias. Nephrology on consultation in view of ESRD. On hemodialysis Tuesday, Tuesday, Tuesday. [facility] Medical History Polycystic kidney disease Sudden cardiac Hypertriglyceridemia Hyperlipidemia History of torsades de pointes Atherosclerosis of coronary artery of [place] heart without angina pectoris Syncope and collapse Ventricular fibrillation Ischemic cardiomyopathy ESRD (end stage renal disease) on dialysis Nonsustained ventricular tachycardia History of recurrent miscarriages, not currently History of DVT (deep vein thrombosis) Congenital polycystic kidney disease History of allergic rhinitis Obesity Benign essential hypertension Home Medications ?Medication ?Instructions ?Recorded ?Last Taken ?Type sertraline 50 mg tablet 75 mg PO QHS depression 01/0803/15/23 History cholecalciferol (vitamin D3) 25 1,000 unit PO QDAY sup plement 10/24/17 03/15/23 History mcg (1,000 unit) tablet sevelamer carbonate 800 mg tablet 4,000 mg PO TID bind er 30 days #90 06/11/21 03/15/23 History tabs calcium carbonate (Tums) 400 mg PO BID 03/30/2203/15 History nitroglycerin 0.4 mg sublingual 0.4 mg sublingual Q5M PRN Chest 10/14/22 03/15/23 Rx tablet Pain #25 tabs ipratropium bromide 21 mcg (0.03 2 spray intranasal DA SHANNON 05/10/23 Unknown History %) nasal spray atorvastatin 10 mg tablet 10 mg PO DAILY cholesterol # 30 tabs 10/11/24 Unknown Rx levothyroxine 25 mcg tablet 25 mcg PO QDAY thyroid 10/02 Unknown History vitamin B complex-vitamin C-folic 1 tab PO QDAY supple ment 10/11/24 Unknown History acid 0.8 mg tablet (Rani-Yahir) warfarin 2 mg tablet 9 mg PO SUTUTHSA blood thinn er 10/11/24 Unknown History warfarin 3 mg tablet 8 mg PO MOWEFR blood thinner 10/11/24 Unknown History zolpidem 10 mg tablet 10 mg PO QHS PRN insomnia Unknown History digoxin 125 mcg (0.125 mg) tablet 125 mcg PO QODAY hea rt #30 tabs 01/09/25 Unknown Rx carvedilol 6.25 mg tablet 6.25 mg PO BID blood pressur e 03/29/25 Unknown History telmisartan 40 mg tablet 40 mg PO BID blood pressure 03/29/25 Unknown History Allergy/AdvReac Type Severity Reaction Status Date / Time amoxicillin Allergy Rash Verified 03/29/25 15:14 doxercalciferol (From Allergy Hives Verified 03/29/25 15:14 Hectorol) etodolac Allergy Rash Verified 03/29/25 15:14 Penicillins (PCN) Allergy Rash Verified 03/29/25 15:14 sulfamethoxazole (From Allergy Rash Verified 03/29/25 15:14 Bactrim) tramadol Allergy Rash Verified 03/29/25 15:14 trimethoprim (From Bactrim) Allergy Rash Verified 03/29/25 15:14 strawberry AdvReac Vomiting Verified 03/29/25 15:14 Family History Father Hypertension Kidney disease Mother Diabetes Family History no significant family his Surgical History Hx of kidney removal History of implantable cardiac defibrillator (ICD) (11/22/19) History of coronary artery stent placement (04/22/16) fistulogram History of thyroid surgery Surgical History no surgical history Social History household members: none Smoking Status: Never smoker alcohol intake: never substance use type: does not use diet: other caffeine: No what type of physical activity do you participate in: none seatbelt use: always do you feel safe at home: Yes ROS ROS Narrative Negative except above Physical Exam Narrative no obvious distress no pallor no icterus no JVD s1s2 no murmurs lungs clear abdomen soft no organomegaly no edema Lab / Micro Data 04/01/25 05:55 04/01/25 05:55 Labs: Laboratory Results - last 24 hr 03/31/25 15:15: PT 29.6 H, INR 2.7 04/01/25 05:55: WBC 7.2, RBC 3.02 L, Hgb 9.1 L, Hct 27.6 L, MCV 91.4, MCH 30.1, MCHC 33.0, RDW Std Deviation 58.0 H, RDW Coeff of Tana 18.0 H, Plt Count 246, MPV 9.2, Immature Gran % (Auto) 0.400, Neut % (Auto) 66.8, Lymph % (Auto) 16.4 L, [place] % (Auto) 7.5, Eos % (Auto) 8.2 H, Baso % (Auto) 0.7, Absolute Neuts (auto) 4.8, Absolute Lymphs (auto) 1.18, Nucleated RBC % 0, Sodium 131 L, Potassium 4.5, Chloride 91 L, Carbon Dioxide 22.4, Anion Gap 18 H, BUN 50 H, Creatinine 11.10 H*, Estim Creat Clear Calc 5.33 L*, Est GFR (MDRD) Non-Af 4 L, B UN/Creatinine Ratio 4.5 L, Glucose 91, Calcium 7.7 Rhythm Strip Rhythm Strip: Sinus Rhythm Rate: 62 Ectopy: None
--- NOTE | 2025-04-01 11:50 | PCM.DC ---
Discharge Instructions DC O2, CPAP, BIPAP needs Home O2 Discharge instructions: No Dressing / Incision Discharge Activity: Return to Normal Activity Dressing / Incision Call your doctor if you observe: Fever of 101 or Higher, Shortness of breath, Dizziness, Fainting spells, Swelling in the ankles, Chest pain and Increased palpitations (irregular heartbeat) Follow Up Care Test Results: Test results from this visit will be discussed in further detail at your follow-up appointment, if applicable. Discharge Plan Admission Admit Date/Time: 03/30/25 20:01 Attending Provider: Armando Booker Primary Care Provider: Tai Vieyra Consulting Providers: Saadia Valencia; Ernesto Garvin; Watson Dalal; Sudarshan Garcia Discharge Orders/Prescriptions Prescriptions: New amlodipine 10 mg Tablet 10 mg PO DAILY 30 Days Qty: 30 0RF Continued cholecalciferol (vitamin D3) 1,000 unit tablet 1,000 unit PO QDAY sevelamer carbonate 800 mg tablet 4,000 mg PO TID 30 Days Qty: 90 calcium carbonate [Tums] 200 mg calcium (500 mg) tablet,chewable 400 mg PO BID ipratropium bromide 21 mcg (0.03 %) spray,non-aerosol 2 spray intranasal DAILY Rx Instructions: administer into each nostril levothyroxine 25 mcg tablet 25 mcg PO QDAY warfarin 3 mg tablet 8 mg PO MOWEFR warfarin 2 mg tablet 9 mg PO SUTUTHSA Rani-Yahir 0.8 mg tablet 1 tab PO QDAY zolpidem 10 mg tablet 10 mg PO QHS PRN (Reason: insomnia) atorvastatin 10 mg tablet 10 mg PO DAILY Qty: 30 12RF sertraline 50 MG tablet 75 mg PO QHS carvedilol 6.25 mg tablet 6.25 mg PO BID telmisartan 40 mg tablet 40 mg PO BID nitroglycerin 0.4 mg tablet, sublingual 0.4 mg SUBLINGUAL Q5M PRN (Reason: Chest Pain) Qty: 25 2RF Discontinued digoxin 125 mcg (0.125 mg) tablet 125 mcg PO QODAY Qty: 30 11RF Other Ambulatory Orders: Cardiac Holter Monitor, 48 Hrs (Routine) Timeframe: 1 Day Facility: [facility] - Location: Cardiovascular Services Ordered By: Dr. Armando F Kotsonis Referrals / Follow Up: Ernesto Garvin MD [Med Staff - Active Staff, Cardiology] - Within 1 Month Tai Vieyra MD [Primary Care Provider, Family Practice] - Within 1 Week Disposition Disposition (needs filled in before D/C Order can be placed): Home, Self Care
--- NOTE | 2025-04-01 12:15 | CASEMGMT ---
RN CM Assessment Face to Face with patient for initial transition planning/care coordination assessment. RN CM introduced self and role at [facility], pt voices understanding. Pt is A&Ox4 and is resting comfortably in bed and is calm. Care providers, pharmacy, and demographics verified. Admitting dx: ALBERTO BUSBY Strata: 3 PCP: Tai Vieyra Specialists: Emanuel (Nephro) [facility]erred Pharmacy: [facility] Insurance: [facility] , [facility]. Pt states that she has a CM through her insurance but cannot recall the name and does not currently have their number. Pt states that her CM calls her once a month and offers resources but the pt declines and states that she currently does not need any. Prescription Benefit: Yes LNOK: Jaquelin Redding (Daughter), Katrin Cardoza (Sister) Living Arrangements: Pt lives with her daughter in a single story home with 2 steps to enter ADLs/IADLs: Pt states that she is indep and denies needs or concerns. Current 6-Click score is 20 Transportation: Self, daughter. Pt states that her daughter will be her ride home once she gets off. Pt states that she normally drives herself to HD DME: [employer]. Cane. Shower chair. Grab bar HHC/SNF: Denies hx or needs OP HD: Pt states that she [facility] with a chair time of 1230. Per chart review and ICU rounds, pt was sent to [facility] from the dialysis center so they are aware of pt's admission. Pt?s goal: Home Plan: Home with the continuation of OP HD. Pt denies the need for HH or OP Tx. Pt states that she feels safe returning home with her daughter. Pt states that her daughter works at [facility] and that she will not be able to get a ride home until she gets off around 1630. Noted the pt's most recent BP reading is significantly elevated. Notified the HD nurse and pt's RN who report they will notify the MD. Pt denies further questions or concerns at this time. Pedro Spivey RN, CM
[2025-04-01] MEDS: SEVELAMER CARBONATE 800 MG TABLET 4000 MG PO (12:48)
--- NOTE | 2025-04-01 15:18 | PCM.DC.SUM ---
Providers Date of Admission: 03/30/25 Primary Care Physician: Dr. Tai Vieyra MD Consultations 03/30/25 07:42 Consult: Nephrology Routine Consulting Provider: Watson Dalal Reason for Consult: ESRD m,w,f EMERGENT Consult: No Notified: Yes Date Notified: 03/30/25 Time Notified: 07:43 Method of Notification: Text 03/30/25 19:47 Consult: Cardiology Routine Consulting Provider: Ernesto Garvin Reason for Consult: Prolonged QTc, recurrent NSVT. stress test negative. EMERGENT Consult: No Notified: Yes Date Notified: 03/30/25 Time Notified: 19:20 Method of Notification: Text Reason For Visit: CHEST PAIN Diagnosis Discharge Diagnosis (1) ESRD (end stage renal disease) on dialysis: Status: Chronic Code(s): N18.6 - End stage renal disease; Z99.2 - Dependence on renal dialysis Medications at Discharge Home Medications sertraline 50 mg tablet 75 mg PO QHS depression 01/19/17 cholecalciferol (vitamin D3) 25 mcg (1,000 unit) tablet 1,000 unit PO QDAY supplement 10/24/17 sevelamer carbonate 800 mg tablet 4,000 mg PO TID binder 30 days #90 tabs 06/11/21 calcium carbonate (Tums) 400 mg PO BID 03/30/22 nitroglycerin 0.4 mg sublingual tablet 0.4 mg sublingual Q5M PRN Chest Pain #25 tabs 10/14/22 ipratropium bromide 21 mcg (0.03 %) nasal spray 2 spray intranasal DAILY 05/10/23 atorvastatin 10 mg tablet 10 mg PO DAILY cholesterol #30 tabs 10/11/24 levothyroxine 25 mcg tablet 25 mcg PO QDAY thyroid 10/11/24 vitamin B complex-vitamin C-folic acid 0.8 mg tablet (Rani-Yahir) 1 tab PO QDAY supplement 10/11/24 warfarin 2 mg tablet 9 mg PO SUTUTHSA blood thinner 10/11/24 warfarin 3 mg tablet 8 mg PO MOWEFR blood thinner 10/11/24 zolpidem 10 mg tablet 10 mg PO QHS PRN insomnia 10/11/24 carvedilol 6.25 mg tablet 6.25 mg PO BID blood pressure 03/29/25 telmisartan 40 mg tablet 40 mg PO BID blood pressure 03/29/25 amlodipine 10 mg tablet 10 mg PO DAILY 30 days #30 tabs 04/01/25 Hospital Course Operations None Procedures 2-D Echocardiogram Summary of Care Provided Minutes Spent on Discharge: 37 Hospital Course: Per HPI: The patient is a 59 y/o F w/ PMHx: Polycystic kidney disease status post bilateral nephrectomies ESRD on HD M/W/F, Chronic normocytic anemia/AOCD, Orthostatic hypotension, CAD, PAF, history torsades/VT, Hypothyroidism, Obesity, HTN, HLD, Anxiety and Depression, recent ED evaluation 03/28/2025 secondary to chest pressure occurring during dialysis and intermittently in the last several weeks lasting approximately an hour in the substernal region described as mild to moderate usually occurring dialysis with associated nausea as well as dyspnea but no emesis nor any diaphoresis with no radiation of the chest discomfort with the ED evaluation at that time with indeterminate cardiac enzymes felt stable likely secondary to underlying renal disease status post bilateral nephrectomy with blood pressure labile with plan for discharge to home with follow-up with nephrology and cardiology as they are working on a regimen to improve her blood pressure control with also unremarkable chest x-ray and EKG with no acute evidence of ischemia now presenting again to the [facility] ED on 03/29/2025 with ongoing dyspnea in addition to a nonproductive cough reporting that she is actually at her dry weight with persistent pressure now on the left side of her chest with also an episode of burning sensation in the ED with at that time incidentally noted 10 beat run of V. tach with elevated persistent blood pressures despite recently initiated regimen of telmisartan, digoxin and Coreg prompting repeat ED evaluation. Workup in the ED included T98, heart rate 64, BP 174/61, respiratory rate 16, 94% on room air with most recent repeat vitals T98.4, heart rate 65, BP 197/65, respiratory rate 20, 95% room air, CBC with WBC 4.2, hemoglobin 8.8, MCV 91.2, platelet 220 with lymphopenia, coags with INR 2.1, BMP with chloride 94, BUN/creatinine 19/5.66, GFR 8, glucose 101, magnesium 2.0, troponin initial 62 with repeat delta 2-hour pending, chest x-ray with basilar atelectasis, cardiomegaly with mild congestion, bilateral pleural effusions with no significant change since prior evaluation, CT chest with cardiomegaly with small pericardial effusion, scattered mediastinal lymph nodes likely reactive, EKG with SR with mildly prolonged QTC, T wave morphology change of unclear significance with no acute evidence of ischemia similar to prior. In the ED patient ministered hydralazine 10 mg IV x 1. Hospital Course: #1. Hypertensive urgency: Patient blood pressure is high chronically systolic more than 200. At home patient is on telmisartan, carvedilol and digoxin but not on diuretic. Patient is started on chlorthalidone 12.5 mg daily. On IV hydralazine and labetalol as needed SBP more than 180 mmHg. Blood pressure still high 180/57, 172/56. 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 04/01/2025: Chlorthalidone was discontinued given her renal failure. She was started on Norvasc and resumed on her Coreg at 6.25 mg p.o. twice daily. I recommend outpatient monitoring with her PCP and cardiology for further adjustments. I discussed with her the plan for discharge and she expressed understanding of the risks and benefits of going home and would like to go home today. Her digoxin was also discontinued as there was concern that this was the cause of her symptomatic episode of torsades. 2. Atypical chest pain, localized: ACS ruled out. Twelve-lead EKG nondiagnostic of ACS. Serial troponins were mildly elevated 60-63 and 66. patient had nuclear stress test negative for acute ischemia. ACS ruled out. 2D echo shows EF 65% with stage II diastolic dysfunction, mild TR PASP 43. Overall suggestive of chronic HFpEF #2. Polycystic kidney disease status post bilateral nephrectomy with ESRD: Patient with ongoing dialysis Tuesday, Tuesday, Tuesday,: Patient did not have any need for hemodialysis. Dehydration Plant Operator consulted electrolytes in normal limit. BUN/creatinine high 27/7.27. Serum magnesium 2.0. 03/31/2025: Appreciate nephrology's assistance #3. Chronic normocytic anemia/AOCD: Admission hemoglobin 8.8, MCV 91.2, baseline hemoglobin ranges primarily 9-11, most recently previous 03/28/2025 hemoglobin 9.1, hemoglobin 8.8. On baseline #4. Orthostatic hypotension: Given patient recent increased blood pressures although labile especially dialysis will hold midodrine regimen at this time. #5. CAD: Status post previous PCI 2015, continue Coumadin, statin, Coreg, telmisartan regimen with hold parameters as needed. #6. PAF: continue patient home digoxin and Coumadin regimen, INR 2.3, therapeutic #7. History of torsades, recent as noted symptomatic VT burst: Status post previous AICD placement 2019, Will continue digoxin, coreg regimen. Interrogation attempted in the ED with noted AF with no firing. 03/31/2025: Transferred to the ICU overnight for symptomatic torsades, appreciate cardiology's assistance. Will maintain potassium greater than 4 and magnesium is 2.8 today 04/01/2025: Potassium is greater than 4 and her torsades has resolved. Will place her on a Holter monitor on discharge and have her follow-up with cardiology and her primary care physician on discharge #8. Hypothyroidism: On levothyroxine. TSH normal. #9. Obesity: Weight loss and lifestyle changes encouraged. #10. Anxiety and depression: Will continue patient home sertraline regimen. #11. Hyperlipidemia: Will continue patient on statin therapy, Physical Exam Narrative General: Alert, Oriented x3, Cooperative, No apparent distress HEENT: Atraumatic, PERRLA, EOMI, Normocephalic Oral: Moist Mucosa Neck: Supple, No JVD Lungs: Diminished, Normal air movement, No rhonchi, No wheeze, No rales Cardiovascular: Regular rate, Regular Rhythm, Normal S1, Normal S2, No murmurs Abdomen: Soft, Non Tender, Non-Distended, No Hepato-splenomegaly Extremities: No edema, Capillary Refill Less than 3 Seconds Skin: No rashes, No breakdown Musculoskeletal: No Tenderness to Palpation of Joints or Extremities Neurological: No focal neurological deficits, Motor Exam 5/5 strength throughout, Sensory exam intact to light touch and pain Psych/Mental Status: Normal Affect, Appropriate Weight / BMI Weight Weight: 173 lb 11.588 oz Body Mass Index (BMI) 31.9 ABG / Lab / Microbiology Data 04/01/25 05:55 04/01/25 05:55 Laboratory: Laboratory Results - last 24 hr 03/31/25 15:15: PT 29.6 H, INR 2.7 04/01/25 05:55: WBC 7.2, RBC 3.02 L, Hgb 9.1 L, Hct 27.6 L, MCV 91.4, MCH 30.1, MCHC 33.0, RDW Std Deviation 58.0 H, RDW Coeff of Tana 18.0 H, Plt Count 246, MPV 9.2, Immature Gran % (Auto) 0.400, Neut % (Auto) 66.8, Lymph % (Auto) 16.4 L, [place] % (Auto) 7.5, Eos % (Auto) 8.2 H, Baso % (Auto) 0.7, Absolute Neuts (auto) 4.8, Absolute Lymphs (auto) 1.18, Nucleated RBC % 0, Sodium 131 L, Potassium 4.5, Chloride 91 L, Carbon Dioxide 22.4, Anion Gap 18 H, BUN 50 H, Creatinine 11.10 H*, Estim Creat Clear Calc 5.33 L*, Est GFR (MDRD) Non-Af 4 L, BUN/Creatinine Ratio 4.5 L, Glucose 91, Calcium 7.7 Radiography Diagnostic Testing: Radiology Impression Echocardiogram 03/29/25 20:38 Interpretation Summary Normal LV size. Left ventricular systolic function is normal. The left ventricular ejection fraction is 65 %. Stage 2 diastolic dysfunction. Pulmonary artery systolic pressure is 40 mmHg. Small (<1.0 cm) pericardial effusion. Ordering Physician: Saadia Valencia Performed By: Jane Arnold RDCS D/C Instructions Call your doctor if you observe: Fever of 101 or Higher, Shortness of breath, Dizziness, Fainting spells, Swelling in the ankles, Chest pain and Increased palpitations (irregular heartbeat) DC O2, CPAP, BIPAP Needs Home O2 Discharge instructions: No Meaningful Use Info Meaningful Use Meaningful Use Diagnoses (Choose all that apply): None applicable Discharge Plan Admission Admit Date/Time: 03/30/25 20:01 Attending Provider: Armando Booker Primary Care Provider: Tai Vieyra Consulting Providers: Saadia Valencia; Ernesto Garvin; Watson Dalal; Sudarshan Garcia Discharge Orders/Prescriptions Prescriptions: New amlodipine 10 mg Tablet 10 mg PO DAILY 30 Days Qty: 30 0RF Continued cholecalciferol (vitamin D3) 1,000 unit tablet 1,000 unit PO QDAY sevelamer carbonate 800 mg tablet 4,000 mg PO TID 30 Days Qty: 90 calcium carbonate [Tums] 200 mg calcium (500 mg) tablet,chewable 400 mg PO BID ipratropium bromide 21 mcg (0.03 %) spray,non-aerosol 2 spray intranasal DAILY Rx Instructions: administer into each nostril levothyroxine 25 mcg tablet 25 mcg PO QDAY warfarin 3 mg tablet 8 mg PO MOWEFR warfarin 2 mg tablet 9 mg PO SUTUTHSA Rani-Yahir 0.8 mg tablet 1 tab PO QDAY zolpidem 10 mg tablet 10 mg PO QHS PRN (Reason: insomnia) atorvastatin 10 mg tablet 10 mg PO DAILY Qty: 30 12RF sertraline 50 MG tablet 75 mg PO QHS carvedilol 6.25 mg tablet 6.25 mg PO BID telmisartan 40 mg tablet 40 mg PO BID nitroglycerin 0.4 mg tablet, sublingual 0.4 mg SUBLINGUAL Q5M PRN (Reason: Chest Pain) Qty: 25 2RF Discontinued digoxin 125 mcg (0.125 mg) tablet 125 mcg PO QODAY Qty: 30 11RF Other Ambulatory Orders: Cardiac Holter Monitor, 48 Hrs (Routine) Timeframe: 1 Day Facility: [facility] - Location: Cardiovascular Services Ordered By: Dr. Armando Booker Referrals / Follow Up: Ernesto Garvin MD [Med Staff - Active Staff, Cardiology] - Within 1 Month aTi Vieyra MD [Primary Care Provider, Family Practice] - Within 1 Week Disposition Disposition (needs filled in before D/C Order can be placed): Home, Self Care Charges/Coding Visit Charges Inpatient E&M: 95693 Subs Hosp L2
== END 2025-04-01 17:15 | disposition home or self-care (01) | DRG 308 ==
LOC: ED 19:59 → PCU 20:05 → ICU 03-30 20:34
PROVIDERS: Internal Medicine; Internal Medicine Cardiovascular Disease; Admitting Provider Family Medicine; Emergency Provider Emergency Medicine; PCP Family Medicine; Visit Provider Family Medicine
DX: I47.21 Torsades de pointes (principal); N18.6 End stage renal disease; I13.2 Hypertensive heart and chronic kidney disease with heart failure and with stage 5 chronic kidney disease, or end stage renal disease; Q61.2 Polycystic kidney, adult type; I50.32 Chronic diastolic (congestive) heart failure; D63.1 Anemia in chronic kidney disease; I16.0 Hypertensive urgency; E03.9 Hypothyroidism, unspecified; I07.1 Rheumatic tricuspid insufficiency; E66.9 Obesity, unspecified; I48.0 Paroxysmal atrial fibrillation; I95.1 Orthostatic hypotension; I25.10 Atherosclerotic heart disease of native coronary artery without angina pectoris; I25.5 Ischemic cardiomyopathy; D72.819 Decreased white blood cell count, unspecified; E78.5 Hyperlipidemia, unspecified; F41.9 Anxiety disorder, unspecified; Z99.2 Dependence on renal dialysis; K52.9 Noninfective gastroenteritis and colitis, unspecified; T46.0X5A Adverse effect of cardiac-stimulant glycosides and drugs of similar action, initial encounter; Y92.239 Unspecified place in hospital as the place of occurrence of the external cause; Z68.33 Body mass index [BMI] 33.0-33.9, adult; Z79.01 Long term (current) use of anticoagulants; Z79.890 Hormone replacement therapy; Z79.899 Other long term (current) drug therapy; Z90.5 Acquired absence of kidney; Z95.5 Presence of coronary angioplasty implant and graft; Z95.810 Presence of automatic (implantable) cardiac defibrillator
CPT/HCPCS: 36415; 71046; 71250; 74019; 78452; 80048; 80053; 80061; 83735; 84100; 84443; 84484; 85025; 85610; 85652; 86140; 90937; 93005; 93017; 93225; 93226; 93306; 94668; 94762; 99285; A9500; A4216; G0257; J2785

== ENCOUNTER 2025-04-25 02:21 | Emergency (ER) | payer MEDICARE, MEDICAID, SELFPAY ==
[2025-04-25 02:22] VITALS: BP 152/72; PULSE 75; RESP 18; TEMP 36.9; O2SAT 96
--- NOTE | 2025-04-25 02:29 | EKG12_ITS ---
Test Reason : CP Blood Pressure : */* mmHG Vent. Rate : 75 BPM Atrial Rate : 75 BPM P-R Int : 168 ms QRS Dur : 86 ms QT Int : 468 ms P-R-T Axes : 4 47 59 degrees QTcB Int : 522 ms Normal sinus rhythm Prolonged QT Abnormal ECG Confirmed by CALEB DAVIS, LOULOU ([id number]), avid editor FARHAN AGUILAR ([id number]) on 04/25/2025 9:57:58 AM Referred By: SUSAN Confirmed By: LOULOU ELLIS MD
[2025-04-25 02:42] LABS: Hematocrit 31.6 % (37-47); Hemoglobin 9.8 g/dL (12.0-15.0); Immature Granulocytes Count 0.010 X10^3/uL (0.0-0.0); Mean Corp Hgb Conc 31.0 g/dL (32-36); Mean Corpuscular Volume 91.3 fL (81-99); Mean Platelet Vol. 10.2 fl (6.2-12.0); NRBC Flagged by Analyzer 0 % (0-5); Platelet Count 309 K/mm3 (150-450); RBC Distribution Width CV 16.4 % (11.6-14.6); RBC Distribution Width SD 54.1 fl (35.1-43.9); Red Blood Count 3.46 M/mm3 (4.2-5.4); White Blood Count 4.6 K/mm3 (4.4-11.0)
--- NOTE | 2025-04-25 02:42 | RAD_ITS ---
PROCEDURE: CHEST PA AND LATERAL 04/25/2025 REASON FOR EXAM: CHEST PAIN TECHNIQUE: Procedure Code: RADCXR Modality: DX Procedure: CHEST PA AND LATERAL COMPARISON: CT scan on 03/29/2025. FINDINGS: Mild decrease in bilateral pleural effusions. Mild decrease in passive atelectatic airspace disease of the lower lobes. Unchanged mild central pulmonary venous congestion. Unchanged cardiac pacer device. Unremarkable left brachial/axillary endovascular stents. Enlarged cardiac silhouette. Normal mediastinum and ana. Normal visualized pulmonary arteries. Atheromatous plaques of the visualized aortic arch and descending thoracic aorta. Diffuse spondylosis of the visualized thoracic spine. Normal visualized ribs, clavicles. Degenerative joint disease. There is no demonstrated abnormality of the visualized soft tissue structures of the upper abdomen. RAD/Chest PA and Lateral IMPRESSION: Mild decrease in bilateral pleural effusions. Mild decrease in passive atelectatic airspace disease of the lower lobes. Unchanged mild central pulmonary venous congestion. Unchanged cardiac pacer device. Unremarkable left brachial/axillary endovascular stents. Enlarged cardiac silhouette. [facility]
--- NOTE | 2025-04-25 02:44 | ED.VIS.CHEST ---
HPI History of Present Illness Chief Complaint: Chest Pain Narrative Narrative: Patient is a 59-year-old female past medical history of polycystic kidney disease, hyperlipidemia, ventricular fibrillation, end-stage renal disease on dialysis Tuesday, DVT on warfarin, hypertension who presented to the emergency department the chief complaint of chest pain. Patient states that she was lying in bed this evening and notes that she developed chest pain and she states that it this had been progressively getting worse prompting her to come to the emergency department. Patient states that coughing makes this worse and notes that her chest pain has been constant. Patient once again is a work-related injury she has been taking her medications as prescribed not missing any doses. Patient had her full dialysis session today. Patient states that she was recently here had full cardiac workup including stress testing that was normal. [facility] Medical History Polycystic kidney disease Sudden cardiac Hypertriglyceridemia Hyperlipidemia History of torsades de pointes Atherosclerosis of coronary artery of [place] heart without angina pectoris Syncope and collapse Ventricular fibrillation Ischemic cardiomyopathy ESRD (end stage renal disease) on dialysis Nonsustained ventricular tachycardia History of recurrent miscarriages, not currently History of DVT (deep vein thrombosis) Congenital polycystic kidney disease History of allergic rhinitis Obesity Benign essential hypertension Home Medications ?Medication ?Instructions ?Recorded ?Last Taken ?Type sertraline 50 mg tablet 75 mg PO QHS depression 01/19/17 03/15/23 History cholecalciferol (vitamin D3) 25 1,000 unit PO QDAY supplement 10/24/17 03/15/23 History mcg (1,000 unit) tablet sevelamer carbonate 800 mg tablet 4,000 mg PO TID binder 30 days #90 06/11/21 03/15/23 History tabs calcium carbonate (Tums) 400 mg PO BID 03/30/22 03/15/23 History nitroglycerin 0.4 mg sublingual 0.4 mg sublingual Q5M PRN Chest 10/14/22 03/15/23 Rx tablet Pain #25 tabs ipratropium bromide 21 mcg (0.03 2 spray intranasal DAILY 05/10/23 Unknown History %) nasal spray atorvastatin 10 mg tablet 10 mg PO DAILY cholesterol #30 tabs 10/11/24 Unknown Rx levothyroxine 25 mcg tablet 25 mcg PO QDAY thyroid 10/11/24 Unknown History vitamin B complex-vitamin C-folic 1 tab PO QDAY supplement 10/11/24 Unknown History acid 0.8 mg tablet (Rani-Yahir) warfarin 2 mg tablet 9 mg PO SUTUTHSA blood thinner 10/11/24 Unknown History warfarin 3 mg tablet 8 mg PO MOWEFR blood thinner 10/11/24 Unknown History zolpidem 10 mg tablet 10 mg PO QHS PRN insomnia 10/11/24 Unknown History carvedilol 6.25 mg tablet 6.25 mg PO BID blood pressure 03/29/25 Unknown History telmisartan 40 mg tablet 80 mg PO BID blood pressure 03/29/25 Unknown History amlodipine 10 mg tablet 10 mg PO DAILY 30 days #30 tabs 04/01/25 Unknown Rx azelastine 137 mcg (0.1 %) nasal 1 spray intranasal BID 04/16/25 Unknown History spray baclofen 10 mg tablet 10 mg PO TID PRN pain 04/16/25 Unknown History Held on 04/25/25. Instructions: pt stopped taking gabapentin 100 mg capsule 100 mg PO TID 04/16/25 Unknown History Held on 04/25/25. Instructions: pt not taking benzonatate 100 mg capsule 100 mg PO TID PRN cough #30 caps 04/25/25 Unknown Rx Allergy/AdvReac Type Severity Reaction Status Date / Time amoxicillin Allergy Rash Verified 04/25/25 02:22 doxercalciferol (From Allergy Hives Verified 04/25/25 02:22 Hectorol) etodolac Allergy Rash Verified 04/25/25 02:22 Penicillins (PCN) Allergy Rash Verified 04/25/25 02:22 sulfamethoxazole (From Allergy Rash Verified 04/25/25 02:22 Bactrim) tramadol Allergy Rash Verified 04/25/25 02:22 trimethoprim (From Bactrim) Allergy Rash Verified 04/25/25 02:22 strawberry AdvReac Vomiting Verified 04/25/25 02:22 Family History Father Hypertension Kidney disease Mother Diabetes Surgical History Hx of kidney removal History of implantable cardiac defibrillator (ICD) (11/22/19) History of coronary artery stent placement (04/22/16) fistulogram History of thyroid surgery Social History household members: none Smoking Status: Never smoker alcohol intake: never substance use type: does not use diet: other caffeine: No what type of physical activity do you participate in: none seatbelt use: always do you feel safe at home: Yes ROS ROS ED ROS Narrative Constitutional: Complains of chills denies any fevers, headaches Eyes: Denies double vision Cardiovascular: Complains of chest pain as noted above denies palpitations Respiratory: Complains of cough as noted above Abdomen: Denies abdominal pain nausea vomit diarrhea : Denies urinary symptoms Neurological: Denies any numbness, weakness, tingling Musculoskeletal: Denies back pain Skin: Denies any rashes or lesions EXAM Physical Exam Narrative Exam Narrative: General: Patient lying in bed rest comfortably did not appear to be in acute distress Head: Atraumatic, normocephalic Eyes: PERRL bilaterally, EOMI bilaterally, no conjunctival injection noted Neck: Soft, supple, trachea midline Cardiovascular: Regular rate and rhythm Respiratory: Clear to auscultation bilaterally Abdomen: No tenderness to palpation Extremities: +5/5 strength noted in the bilateral upper and lower extremities Neurological: Patient follow commands that she was at [facility] year is 2024 Skin: Warm, dry, intact no rashes or lesions noted Const Vital Signs: 04/25/25 02:22 04/25/25 02:28 04/25/25 04:21 Temperature 98.5 F Temperature Source Oral Pulse Rate 75 60 Respiratory Rate 18 18 Respiratory Effort Normal Blood Pressure 152/72 H 177/60 H Blood Pressure Mean 98 99 Pulse Ox 96 Oxygen Delivery Method Room Air MDM MDM MDM Narrative Medical decision making narrative: Patient is a 59-year-old female who presents to the emergency department the chief complaint of chest pain. On the differential diagnose includes but not limited to ACS, pneumonia, pneumothorax, pleural effusion. Once workup is obtained reviewed she will be reevaluated Patient CBC reviewed and showed no evidence leukocytosis white blood count of 4.6, hemoglobin 9.8, platelet count was noted to be 309. Patient INR was therapeutic at 2.8, she is on warfarin. Patient sodium was 136, potassium was 4.3, creatinine was elevated 5.96 however she is on dialysis and just had dialysis today. Patient's troponin was 61 with a delta troponin of 62 this is likely secondary to her end-stage renal disease and when compared to her blood draw from March these were same. Patient is EKG reviewed which showed sinus rhythm rate of 75 bpm MD interval 168. Patient chest x-ray reviewed by myself and by radiology which showed mild decrease in bilateral pleural effusions. Mild decrease in passive atelectatic airspace disease of the lower lobes. Unchanged central pulmonary venous congestion. Unchanged cardiac pacemaker device and unremarkable left brachial/axillary and vascular stents. Enlarged cardiac silhouette noted. I did review the patient's stress test that she had on 03/30/2025 that was unremarkable. I reviewed the patient's most recent cardiology visit from earlier this month April 16, 2025 which states he will continue current plan Patient ambulated here in the emergency department without any hypoxia or tachycardia. At this point have a low suspicion for cardiac etiology given her recent cardiac workup and her pain is constant and is worse with coughing does not get worse with exertion or any other activity. Patient was vies follow-up with her doctors outpatient setting return with worsening symptoms or concerns. She is given prescription for Tessalon Perles for cough. She is agreeable to plan all course concerns answered she was discharged home in stable condition. Lab Data Labs: Laboratory Results - last 24 hr 04/25/25 04/25/25 02:35 04:40 WBC 4.6 RBC 3.46 L Hgb 9.8 L Hct 31.6 L MCV 91.3 MCH 28.3 MCHC 31.0 L RDW Std Deviation 54.1 H RDW Coeff of Tana 16.4 H Plt Count 309 MPV 10.2 Immature Gran % (Auto) 0.200 Neut % (Auto) 68.9 Lymph % (Auto) 16.9 L [place] % (Auto) 7.2 Eos % (Auto) 5.9 H Baso % (Auto) 0.9 Absolute Neuts (auto) 3.2 Absolute Lymphs (auto) 0.78 L Nucleated RBC % 0 PT 29.9 H INR 2.8 APTT 47.4 H Sodium 136 Potassium 4.3 Chloride 94 L Carbon Dioxide 29.3 Anion Gap 13 BUN 22 H Creatinine 5.96 H Est GFR (MDRD) Non-Af 8 L BUN/Creatinine Ratio 3.6 L Glucose 113 H Calcium 8.7 Troponin T High Sens 61 H* Troponin T Hi Sens 2 Hr 62 H* Radiography Diagnostic Testing: Clinical Impression(s) from Imaging Studies Chest X-Ray 04/25/25 02:42 IMPRESSION: Mild decrease in bilateral pleural effusions. Mild decrease in passive atelectatic airspace disease of the lower lobes. Unchanged mild central pulmonary venous congestion. Unchanged cardiac pacer device. Unremarkable left brachial/axillary endovascular stents. Enlarged cardiac silhouette. Reading Location: [place] [address] Discharge Plan Triage Chief Complaint: Chest Pain ED Provider: Cong Powers Dx/Rx/DC Orders Clinical Impression: Benign essential hypertension, ESRD (end stage renal disease) on dialysis, Chest pain, Cough Prescriptions: New benzonatate 100 mg capsule 100 mg PO TID PRN (Reason: cough) Qty: 30 0RF No Action cholecalciferol (vitamin D3) 1,000 unit tablet 1,000 unit PO QDAY sevelamer carbonate 800 mg tablet 4,000 mg PO TID 30 Days Qty: 90 calcium carbonate [Tums] 200 mg calcium (500 mg) tablet,chewable 400 mg PO BID ipratropium bromide 21 mcg (0.03 %) spray,non-aerosol 2 spray intranasal DAILY Rx Instructions: administer into each nostril levothyroxine 25 mcg tablet 25 mcg PO QDAY warfarin 3 mg tablet 8 mg PO MOWEFR warfarin 2 mg tablet 9 mg PO SUTUTHSA Rani-Yahir 0.8 mg tablet 1 tab PO QDAY zolpidem 10 mg tablet 10 mg PO QHS PRN (Reason: insomnia) atorvastatin 10 mg tablet 10 mg PO DAILY Qty: 30 12RF baclofen 10 mg tablet 10 mg PO TID PRN (Reason: pain) Rx Instructions: 1/2 tab tid for cough or chest wall pain gabapentin 100 mg capsule 100 mg PO TID azelastine 137 mcg (0.1 %) spray,non-aerosol 1 spray intranasal BID Rx Instructions: administer into each nostril sertraline 50 MG tablet 75 mg PO QHS carvedilol 6.25 mg tablet 6.25 mg PO BID telmisartan 40 mg tablet 80 mg PO BID amlodipine 10 mg Tablet 10 mg PO DAILY 30 Days Qty: 30 0RF nitroglycerin 0.4 mg tablet, sublingual 0.4 mg SUBLINGUAL Q5M PRN (Reason: Chest Pain) Qty: 25 2RF Primary Care Provider: Tai Vieyra Referrals: Tai Vieyra MD [Primary Care Provider, Family Practice] Activity Restrictions/Additional Instructions: Follow-up your doctors in outpatient setting. Return with worsening symptoms or other concerns. Use prescriptions have sent to your pharmacy as prescribed. Your blood work and your chest x-ray did not show any acute findings today. Print Language: Macedonian Disposition Disposition: Home, Self Care
--- OUTSIDE RECORDS SUMMARY | 2025-04-25 02:44 | XMS RPT_ITS | CCD ---
Author Organization [facility] CliniSyin Care Team Providers Care Operations/Dispatch Name Role Phone Radha Blanotn RN Unavailable Unavailable DeFinis, Harumi Y Unavailable Unavailable DeFinis, Harumi Y Unavailable [...] Unavailable VIEYRA, TREVOR A Primary Care Unavailable CHRISTINAO HUNTLEY Referring Unavailable Dr. Trevor Vieyra MD Primary Care Provider Dr. Trevor Vieyra MD Attending Provider [phone] Trevor Vieyra MD Referring Provider [phone] Trevor Preston DO Attending Provider Dr. Trevor Preston DO Emergency Provider Kieran Hilton Attending Provider Marques Peace MD Emergency Provider [phone] Trevor Vieyra MD Primary Care Provider Jarrell DAVIS, Dr. Lujan Attending Provider Jarrell DAVIS, Dr. Lujan Referring Provider Marques Peace MD Attending Provider Jarrell DAVIS, Dr. Lujan Primary Care Provider Jarrell DAVIS, Dr. Lujan Attending Provider Jarrell DAVIS, Dr. Lujan Referring Provider Roof BOARD OF DIRECTORS-C, Christiano H Attending Provider Roof BOARD OF DIRECTORS-C, Christiano H Referring Provider Jarrell DAVIS, Dr. [...] Provider Jarrell DAVIS, Dr. Lujan Primary Care Physician Jarrell DAVIS, Dr. Lujan Attending Physician Jarrell DAVIS, Dr. Lujan Referring Provider Laci DAVIS, Dr. Purvis Attending Physician [phone] Laci DAVIS, Dr. Purvis Emergency Department Physician Dr. Padmini Wen DO Emergency Department Physi segundo Annie DAVIS, Dr. Saadia Grijalva Admitting Physician Annie DAVIS, Dr. Saadia Grijalva Attending Physician Annie DAVIS, Dr. Saadia Grijalva Nurse Practitioner Jose DAVIS, Dr. Heaton Attending Physician Jose DAVIS, Dr. Heaton Nurse Practitioner Mulugeta DAVIS, Dr. Chaudhari Nurse Practitioner Bharathi DAVIS, Dr. Orozco Attending Physician Bharathi DAVIS, Dr. Orozco Nurse Practitioner Ade DAVIS, Dr. Armando Marquez Attending Physician Ade DAVIS, Dr. Armando Marquez Nurse Practitioner Ade DAVIS, Dr. Armando Marquez Referring Provider Nay NELSON-Christiano Martinez Attending Physician Vieyra, Trevor Referring Unavailable Kieran Hilton Attending Unavailable Vieyra, Trevor Primary Care Unavailable Christiano Tee NP Attending Unavailable Vieyra, Trevor Primary Care Unavailable Vieyra, Trevor Referring Unavailable Marques Peace Attending Unavailable Vieyra, Trevor Primary Care Unavailable Armando Booker Attending Unavailable Saadia Valencia Consulting Unavailable Vieyra, Trevor Primary Care Unavailable Saadia Valencia Admitting Unavailable Bharathi, [place] Consulting Unavailable Mulugeta, Jayaprakas Consulting Unavailable Jose, Sudarshan Consulting Unavailable Armando Booker Consulting Unavailable WhiteSaadia Consulting Unavailable Saadia Valencia Admitting Unavailable Jose, Sudarshan Attending Unavailable Vieyra, Trevor Primary Care Unavailable Mulugeta, Jayaprakas Consulting Unavailable Jose, Sudarshan Consulting Unavailable WhiteSaadia L Attending Unavailable Vieyra, Trevor Primary Care Unavailable Vieyra, Trevor Referring Unavailable Vieyra, Trevor Attending Unavailable Vieyra, Trevor Attending Unavailable Vieyra, Trevor Primary Care Unavailable Vieyra, Trevor Referring Unavailable Yaniv Aguero Attending Unavailable Vieyra, Trevor Primary Care Unavailable Vieyra, Trevor Primary Care Unavailable Schwjonathan, Trevor Attending Unavailable Vieyra, Trevor Attending Unavailable Vieyra, Trevor Primary Care Unavailable Vieyra, Trevor Referring Unavailable Vieyra, Trevor Attending Unavailable Vieyra, Trevor Primary Care Unavailable Vieyra, Trevor Referring Unavailable Christiano Tee NP Referring Unavailable Nay NELSON, Christiano Florez Attending Unavailable Vieyra, Trevor Primary Care Unavailable Bharathi, Ernesto Attending Unavailable Bharathi, [place] Attending Unavailable Vieyra, Trevor Primary Care Unavailable Vieyra, Trevor Primary Care Unavailable Seth Figueroa Attending Unavailable Vieyra, Trevor Referring Unavailable Armando Booker Attending Unavailable White, Saadia L Consulting Unavailable White, Saadia L Admitting Unavailable Vieyra, Trevor Primary Care Unavailable Bharathi, [place] Consulting Unavailable Armaan Dalalkas Consulting Unavailable Sudarshan Garcia Consulting Unavailable Roof BOARD OF DIRECTORS, Christiano Florez Attending Unavailable Vieyra, Trevor Primary [...] Primary Care Unavailable Vieyra, Trevor Attending Unavailable VIEYRA, TREVOR Primary Care Unavailable VIEYRA, TREVOR Primary Care Unavailable VIEYRA, TREVOR Primary Care Unavailable VIEYRA, TREVOR Primary Care Unavailable VIEYRAFLOYDGILBERTO Attending Unavailable VIEYRA, TREVOR Primary Care Unavailable Allergies Allergy Classification Reported Allergen(s) Allergy Type Date of Onset Reaction(s) Facility (20 sources) amoxicillin; Translations: [amoxicillin] Drug Allergy 05-03-20 16 Rash [facility] Work Phone: (4 sources) doxercalciferol Drug Allergy 05-03-20 16 Severe N/V [facility] Work Phone: (4 sources) etodolac Drug Allergy 05-03-20 16 Rash [facility] Work Phone: (4 sources) penicillin Drug Allergy 04-15-20 17 rash [facility] Work Phone: (4 sources) sevelamer Drug Allergy 05-03-20 16 Nausea [facility] Work Phone: (4 sources) strawberry; Translations: [STRAWBERRIES] food allergy 04-15-20 17 rash [facility] Work Phone: (4 sources) sulfamethoxazole / trimethoprim Drug Allergy 05-03-20 16 Nausea [facility] Work Phone: (20 sources) traMADol; Translations: [TRAMADOL] Drug Allergy 05-03-20 16 Rash, Intolerance [facility] Work Phone: (20 sources) Doxercalciferol Drug Allergy 11-04-19 16 Other (See Comments), Other: See Comments, Unknown [place], [place] (20 sources) Etodolac; Translations: [ETODOLAC] Drug Allergy 05-03-20 16 Other (See Comments), [place], [place] (13 sources) Penicillins; Translations: [PENICILLINS] Propensity to adverse reactions to drug 11-05-19 16 Other (See Comments), Hives, [place], [place] (20 sources) Sulfamethoxazole / Trimethoprim; Translations: [SULFAMETHOXAZOLE-T RIMETHOPRIM] Drug Allergy 05-03-20 16 Rash, GI Upset [place], [place] (20 sources) strawberry allergenic extract Drug Allergy 04-15-20 17 Nausea And Vomiting, Vomiting, [place], [place] (20 sources) sevelamer; Translations: [SEVELAMER] Drug Allergy 05-03-20 16 GI Upset [facility] (20 sources) Sulfamethoxazole Drug Allergy 06-11-20 21 [facility] (20 sources) Trimethoprim Drug Allergy 10-01-19 21 [facility] (3 sources) Penicillins Drug Allergy 11-05-19 16 Hives, [facility] (20 sources) Penicillins Drug Allergy 11-05-19 16 Hives, [facility] (20 sources) Penicillins Allergy to substance 03-15-20 22 [facility] (3 sources) strawberry allergenic extract; Translations: [STRAWBERRY] Drug Allergy 04-15-20 17 [facility] (3 sources) Doxercalciferol Drug Allergy 11-04-19 16 [facility] (3 sources) Etodolac Allergy to substance 05-03-20 16 [facility] (3 sources) Penicillins Drug Allergy 11-05-19 16 Hives, [facility] (3 sources) sevelamer Drug Allergy 05-03-20 16 [facility] (3 sources) [place] Allergy to substance 04-15-20 17 Nausea And Vomiting, [facility] (3 sources) Sulfamethoxazole Allergy to substance 10-01-19 [facility] (1 source) Doxercalciferol Drug Allergy 04-16-20 [facility] (1 source) Etodolac Drug Allergy 04-16-20 [facility] (1 source) Penicillins Drug allergy (disorder) 04-16-20 [facility] (1 source) Sulfamethoxazole Drug Allergy 04-16-20 [facility] (1 source) Trimethoprim Drug Allergy 04-16-20 [facility] Medications Current Medications Medication Drug [...] HOURS NEEDED as needed for Pain 12 January 13, 2018 12:00am June 29, [...] for pain for up to 3 days. amLODIPine 10 mg oral tablet (4 sources) Dihydropyridine Calcium Channel Genesis Start: take 1 tablet by mouth once daily Amlodipine 10 mg Tablet Active 10 mg PO DAILY April 01, 2025 12:00am Complies with drug therapy Start: 04-01-2025 take 1 tablet by mouth once da bhanu Start: 04-01-2025 take 1 tablet by mouth once da bhanu ascorbic acid / D-biotin / folic acid / niacinamide / pantothenate / pyridoxine / riboflavin / thiamine / vitamin B12 (5 sources) Vitamin B12, Vitamin C Start: 11-28-2022 take 1 tablet by mouth once RANI-YAHIR 0.8 mg tab Take 1 tablet by mouth every afternoon. 0 11/28/2022 Active Comment on above: Take 1 tablet by morgan th every afternoon. atorvastatin 10 mg oral tablet (20 sources) HMG-CoA Reductase Inhibitor Start: 10-11-2024 take 1 tablet by mouth once daily Atorvastatin 10 mg tablet Active 10 mg PO DAILY 09 07October 11, 2024 12:00am cholesterol Complies with drug therapy Start: 08-24-2017 take 0.5 tablet by m outh once daily at bedtime atorvastatin (LIPITOR) 80 MG tablet Indications: Coronary artery disease involving [place] coronary artery of [place] heart, angina presence unspecified TAKE 1/2 TABLET [...] take 1 tablet by mouth once daily for hyperlipidemia atorvastatin (Lipitor) 40 MG tablet Take 40 mg by mouth Nightly. for cholesterol 02/25/2023 Active Start: 06-08-2016 take 1 tablet by morgan th once daily in the evening ATORVASTATIN CALCIUM 80 MG TABS one tablet by mouth every evening ATORVASTATIN CALCIUM [id number] Hanane Barth RN Comment on above: TAKE 1 TABLET BY MORGAN TH EVERY DAY AT BEDTIME FOR CHOLESTEROL azelastine hydrochloride 0.137 mg/actuat metered dose nasal spray (1 source) Histamine-1 Receptor Antagonist Start: 5 Azelastine 137 mcg (0.1 %) spray,non-aerosol Active 1 NMA INTRANASAL TWICE A DAY April 16, 2025 12:00am administer into each nostril Complies with drug therapy B Pxehakw-D-Qwebm Acid (RANI-YAHIR PO) (3 sources) Start: 3 take 1 tablet by mouth in the morning B Qmoylad-G-Qrkzk Acid (RANI-YAHIR PO) Take 1 tablet by mouth in the morning. 11/28/2022 Active Start: 11-28-2022 take 1 tablet by morgan th in the morning B Elhsktc-V-Ylbwk Acid (RANI-YAHIR PO) Take 1 tablet by [...] Complex-Vitamin C-Folic Acid (Rani-Yahir) 0.8 mg tablet (9 sources) Start: 10-11-2024 take 1 tablet by mouth once daily B Complex-Vitamin C-Folic Acid (Rani-Yahir) 0.8 mg tablet Active 1 {tbl} PO daily October 11, 2024 12:00am supplement Complies with drug therapy Start: 10-11-2024 take 1 tablet by mouth once da bhanu Start: 10-11-2024 take 1 tablet by mouth once da bhanu B Complex-Vitamin C-Folic Acid (Rani-Yahir) 0.8 mg tablet Active 1 {tbl} PO daily October 11, 2024 12:00am baclofen 10 mg oral tablet (1 source) gamma-Aminobutyric Acid-ergic Agonist Start: 04-16-2025 take 0.5 tablet by mouth three times daily as needed for pain Baclofen 10 mg tablet Active 10 mg PO THREE TIMES A DAY as needed April 16, 2025 12:00am 1/2 tab tid for cough or chest wall pain Complies with drug therapy calcium carbonate 500 mg chewable tablet (20 sources) Start: 03-30-2022 take 1 tablet by mouth twice daily Calcium Carbonate (Tums) 200 mg calcium (500 mg) tablet,chewable Active 400 mg PO TWICE A DAY March 30, 2022 12:00am Complies with drug therapy Start: 06-29-2018 End: 03-13-2019 take 1 tablet [...] tablets by mouth daily CALCIUM CARBONATE ANTACID [id number] Hanane Barth RN calcium carbonat e (Tums Ultra) 1000 MG chewable tablet Chew 1,000 mg in the morning. Active take 2 tablets by mo [facility] twice daily calcium carbonate (TUMS) 500 MG chewable tablet Take 2 tablets by mouth 2 times daily 0 Active Comment on above: Take 1,000 mg by morgan once daily. carvedilol 6.25 mg oral tablet (4 sources) alpha-Adrenergic Genesis, beta-Adrenergic Genesis Start: 03-29-20 25 take 1 tablet by mouth twice daily Carvedilol 6.25 mg tablet Active 6.25 mg PO TWICE A DAY March 29, 2025 12:00am blood pressure Complies with drug therapy cholecalciferol 0.025 mg oral tablet (20 sources) Vitamin D Start: 10-25-19 18 take 1 tablet by mouth once daily Cholecalciferol (Vitamin D3) 1,000 unit tablet Active 1000 U PO daily October 24, 2017 12:00am supplement Complies with drug therapy cholecalciferol (Vitamin D-3) 50 MCG (2000 UT) [...] tablet by mouth twice daily DOCUSATE SODIUM [id number] Radha Blanton RN Comment on above: Take 1 capsule by [facility] twice daily for 3 days. Take 1 capsule by [facility] twice daily for 10 days. fluticasone propionate 0.05 mg/actuat metered dose nasal spray (10 sources) Corticosteroid Start: take 1 spray(s) nasal route twice daily fluticasone (Flonase) 50 MCG/ACT nasal spray 1 (ONE) SPRAY(S) TWICE DAILY EACH NOSTRIL 03/31/2023 Active Start: 09-05-2014 End: 04-26-2017 FLUTICASONE PROPIONATE 50 MC G/ACT SUSP 1-2 times daily FLUTICASONE PROPIONATE [id number] Teresita Dunaway gabapentin 100 mg oral capsule (20 sources) Anti-epileptic Agent Start: 04-16-2025 take 1 capsule by mouth three times daily Gabapentin 100 mg capsule Active 100 mg PO THREE TIMES A DAY April 16, 2025 12:00am Complies with drug therapy take 1 tablet by morgan once daily at bedtime gabapentin (NEURONTIN) 600 mg tablet Yosvany e 600 mg by mouth daily at bedtime. [...] spray (20 sources) Anticholinergic Start: 05-10-2023 Ipratropium [place] 21 mcg (0.03 %) spray,non-aerosol Active 2 NMA INTRANASAL DAILY May 10, 2023 12:00am administer into each nostril Complies with drug therapy Start: 05-10-2023 Ipratropium Br omide 21 mcg (0.03 %) spray,non-aerosol Active 2 NMA INTRANASAL TWICE A DAY May 10, 2023 12:00am administer into each nostril Start: 05-10-2023 take 1 spray(s) nasa l route twice daily Ipratropium [place] Active 2 SPRAY INTRANASAL TWICE A DAY May 10, 2023 12:00am administer into each nostril Start: 03-31-2023 take 1-2 spray(s) na [place] route every six hours at bedtime for cough ipratropium (Atrovent) 0.03 % nasal spray 1-2 SPRAY(S) EACH NOSTRIL BEFORE BEDTIME AND NEEDEDE EVERY 6 HOURS FOR COUGH, MUCOUS, RUNNY NOSE 03/31/2023 Active Start: 01-19-2017 End: 11-15-2017 Ipratropium [place] 15 ML spray,non-aerosol Discontinued 2 NMA NS EVERY 6 HOURS as needed for Not Specified January 19, 2017 12:00am November 15, 2017 3:57pm Start: 01-19-2017 End: 11-15-2017 Ipratropium [place] Disconti nued 2 SPRAY NS EVERY 6 HOURS January 19, 2017 12:00am November 15, 2017 3:57pm Start: 09-05-2014 IPRATROPIUM BR OMIDE 0.03 % SOLN as directed IPRATROPIUM BROMIDE [id number] Teresita Dunaway ipratropium (ATR OVENT) 0.03 % [...] link levothyroxine sodium 0.025 mg oral tablet (20 sources) l-Thyroxine Start: 05-10-2023 End: 10-11-2024 take 1 capsule by mouth once daily Levothyroxine 25 mcg capsule Discontinued 25 ug PO DAILY May 10, 2023 12:00am October 11, 2024 9:26am Start: 04-07-2023 take 1 tablet by morgan th once daily Levothyroxine 25 mcg tablet Active 25 ug PO daily October 11, 2024 12:00am thyroid Complies with drug therapy lidocaine 25 mg/ml / prilocaine 25 mg/ml topical cream (3 sources) Antiarrhythmic, Amide Local Anesthetic lidocaine-prilocaine (EMLA) 2.5-2.5 % cream Apply topically as needed for Pain Apply topically as needed. 0 Active sertraline 50 mg oral tablet (20 sources) Serotonin Reuptake Inhibitor Start: 7 Sertraline 50 MG tablet Active 75 mg PO AT BEDTIME January 19, 2017 12:00am depression Complies with drug therapy Start: 09-05-2014 take 1 tablet by morgan th once daily sertraline (Zoloft) 50 MG tablet Take 50 mg by mouth daily. 04/07/2023 Active take 1.5 tablets by mouth once daily sertraline (ZOLOFT) 50 MG tablet Take 50 mg by mouth 1.5 tablets daily 0 Active Comment on above: Take 50 mg by mouth. Take 50 mg by mouth once daily. sevelamer carbonate 800 mg oral tablet (20 sources) Phosphate Binder Start: 06-11-2021 take 5 tablets by mouth three times daily Start: 06-29-2018 End: 06-11-2021 take 1 tablet [...] MG TABS As direc audelia SEVELAMER CARBONATE [id number] Maday Yee RN take 4 tablets by mo ut three times daily at mealtime sevelamer carbonate (RENVELA) 800 mg tablet Take 4 tablets by mouth three times daily with meals. 0 Active take 3 tablets by mo ut three times daily at mealtime sevelamer (RENVELA) 800 MG tablet Take 3 tablets by mouth 3 times daily (with meals) 0 Active Comment on above: Take 4 tablets by mo uth. Take 4 tablets by mo uth three times daily with meals. Take 5 tablets by mo uth three times daily with meals. 1000 ml sodium chloride 9 mg/ml injection (3 sources) Start: 09-23-2021 0.9 % sodium chloride infusion Start: 11-22-2019 0.9 % sodium c hloride infusion Start: 11-13-2019 0.9 % sodium c hloride infusion telmisartan 40 mg oral tablet (4 sources) Angiotensin 2 Receptor Genesis Start: 03-29-2025 take 1 tablet by mouth twice daily Telmisartan 40 mg tablet Active 40 mg PO TWICE A DAY March 29, 2025 12:00am blood pressure Complies with drug therapy warfarin sodium 3 mg oral tablet (20 sources) Vitamin K Antagonist Start: 10-11-2024 take 1 tablet by mouth once daily Warfarin 2 mg tablet Active 2 mg PO daily October 11, 2024 12:00am Start: 10-11-2024 take 9 mg by mouth once Warfar in 2 mg tablet Active 9 mg PO every Tuesday, , Th, Sat October 11, 2024 12:00am blood thinner Complies with drug therapy Start: 10-11-2024 Warfarin 3 mg tablet Active 8 mg PO MOWEFR October 11, 2024 12:00am blood thinner Complies with drug therapy Start: 10-11-2024 take 1 tablet by morgan th three times weekly Warfarin 3 mg tablet Active 3 mg PO 3 TIMES A WEEK October 11, 2024 12:00am Start: 10-11-2024 End: 03-29-2025 take 1 tablet by mouth once daily Warfarin 5 mg tablet Discontinued 5 mg PO daily October 11, 2024 12:00am March 29, 2025 7:26pm Managed by PCP Start: 12-01-2019 take 7 [...] One tablet by mouth daily WARFARIN SODIUM [id number] Teresita Dunaway Start: 09-05-2014 take 1 tablet by morgan th once daily warfarin (COUMADIN) 7.5 mg tablet Take 7.5 mg by mouth once daily. 0 12/01/2019 Active Comment on above: Take 7.5 mg by mouth once daily. Take 7 mg by mouth o nce daily. zolpidem tartrate 10 mg oral tablet (20 sources) gamma-Aminobutyric Acid-ergic Agonist Start: 04-28-2023 take 1 tablet by mouth at bedtime as needed Zolpidem 10 mg tablet Active 10 mg PO AT BEDTIME as needed for insomnia October 11, 2024 12:00am Complies with drug therapy Start: 01-19-2017 End: 05-10-2023 take 10 mg [...] mouth at bedtime. as needed ZOLPIDEM TARTRATE [id number] Ernesto Garvin MD Comment on above: Take [...] DAY as needed for pain 9 3 0 January 26, 2022 March 30, 2022 2:43pm [...] DAILY NEEDED as needed for Pain 20 5 0 April 08, 2018 12:00am April 12, 2018 [...] One tablet by mouth daily ASCORBIC ACID [id number] Teresita Dunaway ascorbic acid 100 mg / [...] CAPS One tablet by mouth daily B OCEDOVA-W-BGFGA ACID [id number] Teresita Dunaway take 0.8 mg by mouth once daily b iauumlo-D-lvjaj acid (NEPHROCAPS) 1 MG capsule Take 1 capsule by mouth daily 0.8 mg 0 Active aspirin 81 mg delayed release oral tablet (8 sources) Platelet Aggregation Inhibitor, Nonsteroidal Anti-inflammatory Drug Start: 06-08-2016 End: 04-15-2017 take 1 tablet by mouth once daily ASPIRIN EC 81 MG TBEC One tablet by mouth daily ASPIRIN [id number] Hanane Barth RN B DYVYKRR-Z-[id number] ACID (4 sources) Start: 09-05-2014 take 1 tablet by mouth once daily RENAL-YAHIR 0.8 MG TABS One tablet by mouth daily B LUUPLGG-N-[id number] ACID [id number] Radha Blanton RN B Complex-Vitamin C-Folic Acid [...] Complex-Vitamin C-Folic Ac id 0.8 MG tablet (11 sources) Start: 01-19-2017 End: 11-15-2017 B Complex-Vitamin [...] B-COMPLEX W/ C & FOLIC ACID CAPS [id number] Ernesto Garvin MD belladonna alkaloids 16.2 mg / opium 30 mg rectal suppository (20 sources) Start: 01-30-2022 End: 10-11-2024 Belladonna Alkaloids-Opium 16.2-30 mg suppository Discontinued 1 NMA RC THREE TIMES A DAY as needed for pain 7 January 30, 2022 October 11, 2024 9:30am Gross hematuria Gross hematuria Start: 01-30-2022 Belladonna Alk aloids-Opium Active 1 SUPP RC THREE TIMES A DAY 12 January 30, 2022 benzonatate 200 mg oral capsule (11 sources) Non-narcotic Antitussive Start: 08-21-2024 End: 09-17-2024 take 1 capsule by mouth three times daily as needed for cough Benzonatate 200 mg capsule Discontinued 200 mg PO THREE TIMES A DAY as needed for cough August 21, 2024 1:00am September 17, 2024 4:16pm calcitriol 0.71723 mg oral capsule (8 sources) Vitamin D3 Analog Start: 06-08-2016 End: 04-15-2017 take 1 tablet by mouth at bedtime CALCITRIOL 0.25 MCG CAPS one tablet by mouth after meals and at bedtime CALCITRIOL [id number] Hanane Barth RN calcium acetate 667 mg oral capsule (4 sources) Start: 09-05-2014 take 1 tablet by mouth three times daily CALCIUM ACETATE 667 MG CAPS One tablet by mouth three times daily CALCIUM ACETATE (PHOS BINDER) [id number] Teresita Dunaway cephalexin 500 mg oral capsule (20 sources) Cephalosporin Antibacterial Start: 01-26-2022 End: 03-30-2022 take 1 capsule by mouth once daily Cephalexin 500 mg capsule Discontinued 500 mg PO DAILY January 26, 2022 12:00am March 30, 2022 2:43pm renal dosed Comment on above: Take by mouth. cetirizine hydrochloride 10 mg oral tablet (8 sources) Histamine-1 Receptor Antagonist Start: 09-05-2014 End: 05-03-2016 take 1 tablet by mouth once daily SB ALLERGY 10 MG TABS One tablet by mouth daily CETIRIZINE HCL [id number] Maday Yee RN clopidogrel 75 mg oral tablet (20 sources) [id number] Platelet Inhibitor Start: 06-08-2016 End: 02-16-2023 take 1 tablet by mouth once daily Clopidogrel 75 mg tablet Discontinued 75 mg PO DAILY February 12, 2022 4:48pm March 30, 2022 [...] 2018 1:54pm digoxin 0.125 mg oral tablet (20 sources) Cardiac Glycoside Start: 09-17-2024 End: 04-01-2025 take 1 tablet by mouth every other day Digoxin 125 mcg (0.125 mg) tablet Discontinued 125 ug PO EVERY OTHER DAY 30 January 09, 2025 1:16pm April 01, 2025 11:51am heart 24 hr felodipine 10 mg extended release oral tablet (8 sources) Dihydropyridine Calcium Channel Genesis Start: 06-08-2016 End: 04-15-2017 FELODIPINE ER 10 MG [id number] one tabletevery night FELODIPINE [id number] Hanane Barth RN 2 ml fentaNYL 0.05 mg/ml injection (1 source) Opioid Agonist Start: 09-23-2021 End: 09-23-2021 fentaNYL (SUBLIMAZE) injection fludrocortisone acetate 0.1 mg oral tablet (20 sources) Start: 01-20-2023 End: 10-11-2024 take 1 [...] by mouth three times daily HYDROXYZINE HCL [id number] Hanane Barth RN Start: 05-03-2016 take 1 tablet by morgan th every eight hours HYDROXYZINE HCL 25 MG TABS One half tablet by mouth Q8Hrs HYDROXYZINE HCL [id number] Maday Yee RN lactulose 667 mg/ml oral solution (8 sources) Osmotic Laxative Start: 05-03-2016 End: 04-15-2017 take 1 [tsp_us] by mouth once daily LACTULOSE 10 GM/15ML SOLN 1 tsp by mouth daily LACTULOSE [id number] Radha A Franny RN lidocaine hydrochloride 0.02 mg/mg topical gel [...] by mouth twice daily as needed METHOCARBAMOL [id number] Teresita Dunaway methylPREDNISolone 4 mg oral tablet (11 sources) Corticosteroid Start: 08-21-2024 End: 10-11-2024 take 1 tablet by mouth once Methylprednisolone (Medrol (Aime)) 4 mg tablets,dose pack Discontinued 0 PO per package directions August 21, 2024 1:00am October 11, 2024 9:30am PO PER PKG DIR metoprolol tartrate 25 mg oral tablet (20 sources) beta-Adrenergic Genesis Start: 10-01-2021 End: 11-19-2021 take 0.5 tablet by mouth once daily Metoprolol Tartrate 25 mg tablet Discontinued 0 .ROUTE .COMPLEX 45 October 01, 2021 8:50am November 19, 2021 4:30pm TAKE 1/2 TABLET BY MOUTH RICHIE DAY Start: 12-28-2019 End: 06-20-2023 take 1 tablet by mouth once daily Metoprolol Tartrate 25 mg tablet Discontinued 25 mg PO DAILY 90 3 November 20, 2021 9:21am October 06, 2022 10:18am This is a dose increase On Hold: low bp Start: 12-28-2019 metoprolol tar trate, short acting, (LOPRESSOR) 25 mg tablet Take 12.5 mg by mouth twice daily. 0 12/28/2019 Active Start: 12-11-2019 End: 11-21-2020 Metoprolol Tartrate 25 mg ta blet Discontinued 12.5 mg PO DAILY 45 September 30, 2020 10:01am November 21, 2020 2:08pm Start: 12-11-2019 End: 11-21-2020 take 12.5 mg by mouth once daily Metoprolol Tartrate Discontinued 12.5 MG PO DAILY 45 September 30, 2020 10:01am November 21, 2020 2:08pm Start: 05-18-2017 End: 12-11-2019 Metoprolol Tartrate 25 mg ta blet Discontinued 12.5 mg PO TWICE A DAY 30 August 27, 2019 5:05pm December 11, 2019 1:47am Start: 05-18-2017 End: 12-11-2019 take 12.5 mg by mouth twice daily Metoprolol Tartrate Discontinued 12.5 MG PO TWICE A DAY August 27, 2019 5:05pm December 11, 2019 1:47am Start: 06-08-2016 End: 04-15-2017 take 1 tablet by mouth once daily METOPROLOL SUCCINATE ER 100 MG [id number] One tablet by mouth daily METOPROLOL SUCCINATE [id number] Hanane Barth RN take 0.5 tablet by [...] 5 mg/ml cartridge (1 source) Benzodiazepine Start: 09-24-19 End: 09-24-19 midazolam (VERSED) injection midodrine hydrochloride 10 mg oral tablet (20 sources) alpha-Adrenergic Agonist Start: 10-12-19 End: 03-29-20 take 1 tablet by mouth once daily Midodrine 10 mg tablet Discontinued 10 mg PO DAILY October 11, 2024 12:00am March 29, 2025 7:28pm Start: 06-01-2023 End: 10-11-2024 take 2 tablets by mouth three times daily Midodrine 2.5 mg tablet Discontinued 5 mg PO THREE TIMES A DAY 90 June 01, 2023 12:52pm October 11, 2024 9:25am Start: 06-01-2023 take 5 mg by mouth t hree times daily Midodrine Active 5 MG PO THREE TIMES A DAY 90 June 01, 2023 12:52pm Start: 05-10-2023 End: 06-01-2023 take 1 tablet by mouth three times daily Midodrine 2.5 mg tablet Discontinued 2.5 mg PO THREE TIMES A DAY 90 May 10, 2023 12:00am June 01, 2023 [...] 29, 2022 1:45pm November 26, 2022 11:52am nitroglycerin 0.4 mg sublingual tablet (20 sources) [...] PHENERGAN SOLN as direceted PROMETHAZINE HCL SOLN [id number] Radha Blanton RN Start: 06-08-2016 PHENERGAN SOLN as direceted PROMETHAZINE HCL SOLN [id number] Hanane Barth RN sucroferric oxyhydroxide 500 mg chewable tablet (5 sources) Start: 04-15-2017 take 1 tablet by mouth three times daily VELPHORO 500 MG CHEW Two tablets by mouth three times daily SUCROFERRIC OXYHYDROXIDE [id number] Radha Blanton RN Sucroferric Oxyh ydroxide (VELPHORO) [...] TABS One tablet by mouth daily CHOLECALCIFEROL [id number] Ernesto Garvin MD Problems Active Problems Problem [...] Chronic Coronary atherosclerosis and other heart disease (8 sources) Stented coronary artery; Translations: [Presence of coronary angioplasty implant and graft] Onset: 05-04-2016 05-04-2016 Episodic Coronary atherosclerosis and other heart disease (2 [...] hematuria; Translations: [Gross hematuria] Onset: 01-28-2022 Episodic Nonspecific chest pain (20 sources) Chest pain; Translations: [Chest pain, unspecified] Onset: 05-03-2016 Resolved: 06-08-2016 06-08-2016 Episodic Other aftercare (11 sources) Long-term current use of anticoagulant; Translations: [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 anticoagulants] 09-17-2024 Episodic Other [...] Translations: [Cardiomyopathy, unspecified] Onset: 05-03-2016 05-03-2016 Chronic Residual codes; unclassified (1 source) Acute pain; [...] Unclassified (4 sources) Drug therapy finding; Translations: [prison (current) use of anticoagulants] Onset: 05-03-2016 05-03-2016 Unclassified (4 sources) Warfarin therapy started; Translations: [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 anticoagulants] Onset: 05-03-2016 05-03-2016 Unclassified (3 sources) Placement of stent in coronary artery ; Translations: [Presence of coronary angioplasty implant and graft] Onset: 06-08-2016 06-08-2016 Unclassified (2 sources) Torsades de pointes; Translations: [Torsades de pointes] Onset: 04-12-2025 Unclassified (1 source) Cough, unspecified; Translations: [Cough, unspecified] Onset: 08-21-2024 Unclassified (2 sources) Annual Exam; Translations: [Annual Exam] Onset: 07-09-2024 Past or Other Problems Problem Classification Problem Date Documented Da te Episodic/Chronic Cardiac dysrhythmias (20 sources) Palpitations; Translations: [Palpitations] Onset: 08-02-2024 03-16-2023 Episodic E Codes: Adverse effects of medical drugs (1 source) Adverse effect of cardiac-stimulant glycosides and drugs of similar action, initial encounter; Translations: [Adverse effect of cardiac-stimulant glycosides and drugs of similar action, initial encounter] Onset: 10-11-2024 Episodic Other aftercare (1 source) prison (current) use of anticoagulants; Translations: [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 Placed on the desk of [email or web address] for review. Patient has an upcoming visit on 07/01. Normal [facility] Cardiology Visit Reporton Cardiology Visit Report [facility] [address] [place] [address] OFFICE VISIT Date of Service: 04/16/25 MR#: [id number] Acct: [id number] Name: SPENCER REDDING Rep #: [id number] : 1965 Provider: LEILA marquez Age/Sex: 59/F Location: [facility] Status: Signed HPI HPI History of Present [...] does have her ICD checked routinely through [facility]. Her INR is managed by her [...] sinus rhythm with a controlled rate. She presented to the emergency room on 03/29/2025 for chest pain. In the ER she was noted to have a 10 beat run of ventricular tachycardia. She was started on chlorthalidone for better blood pressure control, but ultimately discontinued due to kidney function. She was started on Norvasc and resumed back on carvedilol. During hospitalization she was noted to have symptomatic torsades de pointes that was related to digoxin therapy in the setting of kidney disease. Noted goal was to keep potassium is close to 4 as possible. Echocardiogram showed ejection fraction 65%. She had a stress test that was negative for ischemia. She denies chest, arm, jaw, or neck discomfort. She denies palpitations. She states occasional, bilateral lower extremity edema. This is worse after longer periods sitting. She denies claudication. She denies shortness of breath with activity, shortness of breath at rest, orthopnea, or PND. She denies chronic cough. She denies significant, sudden weight gain. She denies lightheadedness, dizziness, near-syncope, or syncope. She denies blood in urine, blood in stool, or epistaxis. He denies fever with chills. She denies myalgia. She denies fatigue. Her exercise level has remained stable. Intake Vital Signs 04/01/25 10:02 04/16/25 07:48 Height 5 ft 2 in 5 ft 2 in Weight: 177 lb BMI 32.3 BP 141/76 H Blood Pressure Location Rt brachial Position Sitting Respiration 18 Pulse 63 Pulse Source Monitor Pulse Oximetry (%) 97 Intake Visit Reasons: S/P [facility] 04/01 Manager Acquisition Required: No Is patient in pain?: No Allergies amoxicillin Allergy (Verified 04/16/25 10:00) Rash doxercalciferol (From Hectorol) Allergy (Verified 04/16/25 10:00) Hives etodolac Allergy (Verified 04/16/25 10:00) Rash Penicillins (PCN) Allergy (Verified 04/16/25 10:00) Rash sulfamethoxazole (From Bactrim) Allergy (Verified 04/16/25 10:00) Rash tramadol Allergy (Verified 04/16/25 10:00) Rash trimethoprim (From Bactrim) Allergy (Verified 04/16/25 10:00) Rash strawberry Adverse Reaction (Verified 04/16/25 10:00) Vomiting Medications ???Medication ???Instructions ???Recorded ???Confirmed ???Type sertraline 50 mg tablet 75 mg PO QHS depression 01/19/17 1 History cholecalciferol (vitamin D3) 25 1,000 unit PO QDAY supplement 10/0904/16/25 History mcg (1,000 unit) tablet sevelamer carbonate 800 mg tablet 4,000 mg PO TID binder 30 days #9 0 06/11/21 03/30/25 History tabs calcium carbonate (Tums) 400 mg PO BID 03/30/22 04/16/25 Hi story nitroglycerin 0.4 mg sublingual 0.4 mg sublingual Q5M PRN Chest 04/16/25 Rx tablet Pain #25 tabs ipratropium bromide 21 mcg (0.03 2 spray intranasal DAILY 05/10/23 04/16/25 History %) nasal spray atorvastatin 10 mg tablet 10 mg PO DAILY cholesterol #30 tab s 10/11/24 04/16/25 Rx levothyroxine 25 mcg tablet 25 mcg PO QDAY thyroid 10/11/24 History vitamin B complex-vitamin C-folic 1 tab PO QDAY supplement 10/11/24 04/16/25 History acid 0.8 mg tablet (Rani-Yahir) warfarin 2 mg tablet 9 mg PO SUTUTHSA blood thinner (more content not included)... Normal [facility] Prothrombin Time w/INRon INR Normal [facility] Comment on above: Result Comment: Canc elled via OM: Order cancelled - Patient discharged Performed By: #### L 300.3900 #### [facility] [address] [place], [place], [id number] PROTIME Normal 11.7-14.9 [facility] Comment on above: Result Comment: Canc elled via OM: Order cancelled - Patient discharged Performed By: #### L 300.3900 #### [facility] [address] [place], [address] Absolute lymphocyte countOrd ered By: Armando Booker on 04-01-2025 Lymphocytes Auto (Unsp spec) [#/Vol] 1.18 10*3/uL 0.83-4.51 [facility] Absolute neutrophil countOrd ered By: Armando Booker on 04-01-2025 Neutrophils (Bld) [#/Vol] 4.8 10*3/uL 2.0-7.7 [facility] Anion gap in Serum or Plasma Ordered By: Armando Booker on 04-01-2025 Anion gap [Moles/Vol] 18 mmol/L High 5-15 [facility] Automated lymphocyte count a s percentage of total leukocytesOrdered By: Armando Booker on 04-01-2025 Lymphocytes/100 WBC Auto (Unsp spec) 16.4 % Low 19-41 [facility] BUN/creatinine ratioOrdered By: Armando Booker on 04-01-2025 Urea nitrogen/Creatinine [Mass ratio] 4.5 mg/mg Low 10-20 [facility] Basic Metabolic Profile (BMP )on 04-01-2025 BUN/CRE 4.5 RATIO Low 10-20 [facility] Comment on above: Performed By: #### L 300.3900, L500.4050, L100.0100 #### [facility] [address] [place], [address] Calcium [Mass/Vol] 7.7 mg/dL Normal 7.6-11.0 [facility] Comment on above: Performed By: #### L 300.3900, L500.4050, L100.0100 #### [facility] [address] [place], [address] Chloride [Moles/Vol] 91 mmol/L Low 98-108 [facility] Comment on above: Performed By: #### L 300.3900, L500.4050, L100.0100 #### [facility] [address] [place], [address] CO2 [Moles/Vol] 22.4 mmol/L Normal 21.0-32.0 [facility] Comment on above: Performed By: #### L 300.3900, L500.4050, L100.0100 #### [facility] [address] [place], [address] Creatinine [Mass/Vol] 11.10 mg/dL Invalid Interpretation Code 0.70-1.20 [facility] Comment on above: Result Comment: Crit ical Result(s) Called at 0638: by: MAKSIM IRAHETA TO RAYA. ??Results read back by same. Performed By: #### L 300.3900, L500.4050, L100.0100 #### [facility] [address] [place], [address] ECRCL 5.33 ml/min Invalid Interpretation Code 50-250 [facility] Comment on above: Performed By: #### L 300.3900, L500.4050, L100.0100 #### [facility] [address] [place], [address] GAP 18 High 5-15 [facility] Comment on above: Performed By: #### L 300.3900, L500.4050, L100.0100 #### [facility] [address] [place], [address] GFR/1.73 sq M.predicted among non-blacks MDRD (S/P/Bld) [Vol rate/Area] 4 mL/min/{1.73_m2} Low >60 [facility] Comment on above: Result Comment: mL/m in/1.73m2 CKD-EPI Creatinine Equation (2020) Performed By: #### L 300.3900, L500.4050, L100.0100 #### [facility] [address] [place], [address] Glucose [Mass/Vol] 91 mg/dL Normal 70-99 [facility] Comment on above: Performed By: #### L 300.3900, L500.4050, L100.0100 #### [facility] [address] [place], [address] Potassium [Moles/Vol] 4.5 mmol/L Normal 3.3-5.1 [facility] Comment on above: Performed By: #### L 300.3900, L500.4050, L100.0100 #### [facility] [address] [place], [address] Sodium [Moles/Vol] 131 mmol/L Low 133-145 [facility] Comment on above: Performed By: #### L 300.3900, L500.4050, L100.0100 #### [facility] [address] [place], [address] Urea nitrogen [Mass/Vol] 50 mg/dL High 4-19 [facility] Comment on above: Performed By: #### L 300.3900, L500.4050, L100.0100 #### [facility] [address] [place], [address] Basophil percentageOrdered B y: Armando Booker on 04-01-2025 Basophils/100 WBC (Bld) 0.7 % 0-[address] [facility] CBC W/Diff, Automatedon 03-12 Absolute Lymph 1.18 X10 3/uL Normal 0.83-4.51 [facility] Comment on above: Performed By: #### L 300.3900, L500.4050, L100.0100 #### [facility] [address] [place], [address] Absolute Neut 4.8 X10 3/uL Normal 2.0-7.7 [facility] Comment on above: Performed By: #### L 300.3900, L500.4050, L100.0100 #### [facility] [address] [place], [address] Basophils/100 WBC (Bld) 0.7 % Normal 0-[address] [facility] Comment on above: Performed By: #### L 300.3900, L500.4050, L100.0100 #### [facility] [address] [place], [address] Eosinophils/100 WBC (Bld) 8.2 % High 0-5 [facility] Comment on above: Performed By: #### L 300.3900, L500.4050, L100.0100 #### [facility] [address] [place], [address] Erythrocyte distribution width (RBC) [Ratio] 18.0 % High 11.6-14.6 [facility] Comment on above: Performed By: #### L 300.3900, L500.4050, L100.0100 #### [facility] [address] [place], [address] Hematocrit (Bld) [Volume fraction] 27.6 % Low 37-47 [facility] Comment on above: Performed By: #### L 300.3900, L500.4050, L100.0100 #### [facility] [address] [place], [address] Hemoglobin (Bld) [Mass/Vol] 9.1 g/dL Low 12.0-15.0 [facility] Comment on above: Performed By: #### L 300.3900, L500.4050, L100.0100 #### [facility] [address] [place], [address] IG% 0.400 Normal 0.0-0.9 [facility] Comment on above: Result Comment: IG% - Immature Granulocytes (promyelocytes, myelocytes and metamyelocytes) > 1% indicates that a LEFT SHIFT is Present. Performed By: #### L 300.3900, L500.4050, L100.0100 #### [facility] [address] [place], [address] Lymphocytes/100 WBC (Bld) 16.4 % Low 19-41 [facility] Comment on above: Performed By: #### L 300.3900, L500.4050, L100.0100 #### [facility] [address] [place], [address] MCH (RBC) [Entitic mass] 30.1 pg Normal 27.0-32.0 [facility] Comment on above: Performed By: #### L 300.3900, L500.4050, L100.0100 #### [facility] [address] [place], [address] MCHC (RBC) [Mass/Vol] 33.0 g/dL Normal 32-36 [facility] Comment on above: Performed By: #### L 300.3900, L500.4050, L100.0100 #### [facility] [address] [place], [address] MCV (RBC) [Entitic vol] 91.4 fL Normal 81-99 [facility] Comment on above: Performed By: #### L 300.3900, L500.4050, L100.0100 #### [facility] [address] [place], [address] Monocytes/100 WBC (Bld) 7.5 % Normal 0-10 [facility] Comment on above: Performed By: #### L 300.3900, L500.4050, L100.0100 #### [facility] [address] [place], [address] Neutrophils/100 WBC (Bld) 66.8 % Normal 47-70 [facility] Comment on above: Performed By: #### L 300.3900, L500.4050, L100.0100 #### [facility] [address] [place], [address] Nucleated RBC (Bld) [#/Vol] 0 10*3/uL Normal 0-5 [facility] Comment on above: Performed By: #### L 300.3900, L500.4050, L100.0100 #### [facility] [address] [place], [address] Platelet mean volume (Bld) [Entitic vol] 9.2 fL Normal 6.2-12.0 [facility] Comment on above: Performed By: #### L 300.3900, L500.4050, L100.0100 #### [facility] [address] [place], [address] Platelets (Bld) [#/Vol] 246 10*3/uL Normal 150-450 [facility] Comment on above: Performed By: #### L 300.3900, L500.4050, L100.0100 #### [facility] [address] [place], [address] RBC (Bld) [#/Vol] 3.02 10*6/uL Low 4.2-5.4 [facility] Comment on above: Performed By: #### L 300.3900, L500.4050, L100.0100 #### [facility] [address] [place], [address] RDW SD 58.0 fl High 35.1-43.9 [facility] Comment on above: Performed By: #### L 300.3900, L500.4050, L100.0100 #### [facility] [address] [place], [address] WBC (Bld) [#/Vol] 7.2 10*3/uL Normal 4.4-11.0 [facility] Comment on above: Performed By: #### L 300.3900, L500.4050, L100.0100 #### [facility] [address] [place], [address] Carbon dioxide, total [Moles /volume] in Central venous bloodOrdered By: Armando Booker on 04-01-2025 CO2 [Moles/Vol] 22.4 mmol/L 21.0-32.0 [facility] Chloride assayOrdered By: Radha Booker on 04-01-2025 Chloride [Moles/Vol] 91 mmol/L Low 98-108 [facility] Consultation - Nephrologyon 04-01-2025 Consultation - Nephrology [facility] Medical Records Department [address] [place] [address] Consultation - Nephrology 04/01/25 1059 MR#: [id number] Acct: [id number] Name: SPENCER REDDING Rep #: [id number] : 1965 59 From: Watson Dalal MD PCP: Dr. Trevor Vieyra MD Status:ADM IN Location: ICU ICU02-1 Assessment Plan Assessment/Plan (1) ESRD (end stage renal disease) on dialysis: PLAN: Seen on dialysis today. See orders/flowsheets. Will use 3K bath in view of arrhythmia. HPI Consult Data Date of Consult: 04/01/25 HPI Narrative Reason for Consultation: ESRD HPI Narrative: SPENCER REDDING, is a 59 F who presents to the hospital with tachyarrhythmias. Nephrology on consultation in view of ESRD. On hemodialysis Tuesday, Tuesday, Tuesday. [facility] Medical History Polycystic kidney disease Sudden cardiac Hypertriglyceridemia Hyperlipidemia History of torsades de pointes Atherosclerosis of coronary artery of [place] heart without angina pectoris Syncope and collapse Ventricular fibrillation Ischemic cardiomyopathy ESRD (end stage renal disease) on dialysis Nonsustained ventricular tachycardia History of recurrent miscarriages, not currently History of DVT (deep vein thrombosis) Congenital polycystic kidney disease History of allergic rhinitis Obesity Benign essential hypertension Home Medications ???Medication ???Instructions ???Recorded ???Last Taken ???Type sertraline 50 mg tablet 75 mg PO QHS depression 01/19/17 0 03/15/23 History cholecalciferol (vitamin D3) 25 1,000 unit PO QDAY supplement 10/0903/15/23 History mcg (1,000 unit) tablet sevelamer carbonate 800 mg tablet 4,000 mg PO TID binder 30 days #9 0 06/11/21 03/15/23 History tabs calcium carbonate (Tums) 400 mg PO BID 03/30/22 03/15/23 Hi story nitroglycerin 0.4 mg sublingual 0.4 mg sublingual Q5M PRN Chest 03/15/23 Rx tablet Pain #25 tabs ipratropium bromide 21 mcg (0.03 2 spray intranasal DAILY 05/10/23 Unknown History %) nasal spray atorvastatin 10 mg tablet 10 mg PO DAILY cholesterol #30 tab s 10/11/24 Unknown Rx levothyroxine 25 mcg tablet 25 mcg PO QDAY thyroid 10/11/24 Un known History vitamin B complex-vitamin C-folic 1 tab PO QDAY supplement 10/11/24 Unknown History acid 0.8 mg tablet (Rani-Yahir) warfarin 2 mg tablet 9 mg PO SUTUTHSA blood thinner 10/02 Unknown History warfarin 3 mg tablet 8 mg PO MOWEFR blood thinner 10/11 Unknown History zolpidem 10 mg tablet 10 mg PO QHS PRN insomnia 10/11/24 Unknown History digoxin 125 mcg (0.125 mg) tablet 125 mcg PO QODAY heart #30 tabs 0 01/09/25 Unknown Rx carvedilol 6.25 mg tablet 6.25 mg PO BID blood pressure 03/11 04/04 Unknown History telmisartan 40 mg tablet 40 mg PO BID blood pressure Unknown History Allergy/AdvReac Type Severity Reaction Status Date / Time amoxicillin Allergy Rash Verified 03/29/25 15:14 doxercalciferol (From Allergy Hives Verified 03/29/25 15:14 Hectorol) etodolac Allergy Rash Verified 03/29/25 15:14 Penicillins (PCN) Allergy Rash Verified 03/29/25 15:14 sulfamethoxazole (From Allergy Rash Verified 03/29/25 15:14 Bactrim) tramadol Allergy Rash Verified 03/29/25 15:14 trimethoprim (From Bactrim) Allergy Rash Verified 03/29/25 15:14 strawberry AdvReac Vomiting Verified 03/29/25 15:14 Family History Father Hypertension Kidney disease Mother Diabetes Family History no significant family his Surgical History Hx of kidney removal History of implantable cardiac defibrillator (ICD) (11/22/19) History of coronary artery stent placement (04/22/16) fistulogram History of thyroid surgery Surgical History no surgical history Social History household members: none Smoking Status: Never smoker alcohol intake: never substance use type: does not use diet: other caffeine: No what type of physical activity do you participate in: none seatbelt use: always do you feel safe at home: Yes ROS ROS Narrative Negative except above Physical Exam Narrative no obvious distress no pallor no icterus no JVD s1s2 no murmurs lungs clear abdomen soft no organomegaly no edema Lab / Micro Data 04/01/25 05:55 04/01/25 05:55 Labs: Laboratory Results - last 24 hr 03/31/25 15:15: PT 29.6 H, INR 2.7 04/01/25 05:55: WBC 7.2, RBC 3.02 L, Hgb 9.1 L, Hct 27.6 L, MCV 91.4, MCH 30.1, MCHC 33.0, RDW Std Deviation 58.0 H, RDW Coeff of Tana 18.0 H, Plt Count 246, MPV 9.2, Immature Gran % (Auto) 0.400, Neut % (Auto) 66.8, Lymph % (Auto) 16.4 L, [place] % (Auto) 7.5, Eos % (Auto) (more content not included)... Normal [facility] Discharge Instructionon 03-12 Discharge Instruction [facility] Medical Records Department [address] [place] [address] Instructions for Home/Discharge Instructions 04/01/25 1150 MR#: [id number] Acct: [id number] Name: SPENCER REDDING Rep #: [id number] : 1965 59 From: Armando Booker MD PCP: Dr. Trevor Vieyra MD Status:ADM IN Discharge Instructions DC O2, CPAP, BIPAP needs Home O2 Discharge instructions: No Dressing / Incision Discharge Activity: Return to Normal Activity Dressing / Incision Call your doctor if you observe: Fever of 101 or Higher, Shortness of breath, Dizziness, Fainting spells, Swelling in the ankles, Chest pain and Increased palpitations (irregular heartbeat) Follow Up Care Test Results: Test results from this visit will be discussed in further detail at your follow-up appointment, if applicable. Discharge Plan Admission Admit Date/Time: 03/30/25 20:01 Attending Provider: Armando Booker Primary Care Provider: Trevor Vieyra Consulting Providers: Saadia Valencia; Ernesto Garvin; Watson Dalal; Sudarshan Garcia Discharge Orders/Prescriptions Prescriptions: New amlodipine 10 mg Tablet 10 mg PO DAILY 30 Days Qty: 30 0RF Continued cholecalciferol (vitamin D3) 1,000 unit tablet 1,000 unit PO QDAY sevelamer carbonate 800 mg tablet 4,000 mg PO TID 30 Days Qty: 90 calcium carbonate [Tums] 200 mg calcium (500 mg) tablet,chewable 400 mg PO BID ipratropium bromide 21 mcg (0.03 %) spray,non-aerosol 2 spray intranasal DAILY Rx Instructions: administer into each nostril levothyroxine 25 mcg tablet 25 mcg PO QDAY warfarin 3 mg tablet 8 mg PO MOWEFR warfarin 2 mg tablet 9 mg PO SUTUTHSA Rani-Yahir 0.8 mg tablet 1 tab PO QDAY zolpidem 10 mg tablet 10 mg PO QHS PRN (Reason: insomnia) atorvastatin 10 mg tablet 10 mg PO DAILY Qty: 30 12RF sertraline 50 MG tablet 75 mg PO QHS carvedilol 6.25 mg tablet 6.25 mg PO BID telmisartan 40 mg tablet 40 mg PO BID nitroglycerin 0.4 mg tablet, sublingual 0.4 mg SUBLINGUAL Q5M PRN (Reason: Chest Pain) Qty: 25 2RF Discontinued digoxin 125 mcg (0.125 mg) tablet 125 mcg PO QODAY Qty: 30 11RF Other Ambulatory Orders: Cardiac Holter Monitor, 48 Hrs (Routine) Timeframe: 1 Day Facility: [facility] - Location: Cardiovascular Services Ordered By: Dr. Armando Booker Referrals / Follow Up: Ernesto Garvin MD [Med Staff - Active Staff, Cardiology] - Within 1 Month Trevor Vieyra MD [Primary Care Provider, Family Practice] - Within 1 Week Disposition Disposition (needs filled in before D/C Order can be placed): Home, Self Care 04/01/25 1157 Armando Booker MD CC: Dr. Saadia Valencia MD; Dr. Ernesto Garvin MD; Dr. Trevor Vieyra MD; Dr. Watson Dalal MD; Dr. Sudarshan Garcia MD Signed Normal [facility] Echocardiogram study reportO rdered By: Ernesto Garvin on 04-01-2025 Study report [facility] Cardiovascular Services [address] [place] [address] Echo Complete 03/30/25 0843 MR#: [id number] Acct: [id number] Name: SPENCER REDDING Rep #:[id number] : 1965 59 From: Ernesto Martinez Attending Dr: Dr. Armando Booker MD Status: ADM IN Ordering Dr: Saadia Valencia MD Date: 03/29/25 Location: ICU Sex: F C Admitted: 03/30/25 Reason For Study : PERICARDIAL EFFUSION Procedure This was a 2D Doppler, Color Flow transthoracic echocardiogram. The patient was scanned supine. Exam performed in department. Left Ventricle Normal LV size. Left ventricular systolic function is normal. The left ventricular ejection fraction is 65 %. Stage 2 diastolic dysfunction. No regional wall motion abnormalities noted. Right Ventricle Normal RV size. Normal systolic function. Atria Normal left atrium. Normal right atrium. Mitral Valve There is moderate mitral annular calcification. Mild-Moderate (1-2+) eccentric mitral valve insufficiency. Tricuspid Valve Normal tricuspid valve. Mild (1+) tricuspid valve insufficiency. Pulmonary artery systolic pressure is 40 mmHg. Aortic Valve Trisinus/trileaflet aortic valve. Mild focal aortic valve calcification. Pulmonic Valve Normal pulmonic valve. Great Vessels Normal aortic root. The pulmonary artery is normal size. Inferior vena cava collapse with respiration. Pericardium/Pleural Small (<1.0 cm) pericardial effusion. MMode/2D Measurements & Calculations LVIDd: 5.3 cm IVSd: 1.1 cm LVOT diam: 1.9 cm LVIDs: 3.8 cm LVPWd: 0.96 cm LVOT area: 2.8 cm2 RVDd: 3.3 cm FS: 28.0 % asc Aorta Diam: 3.4 cm LAV(MOD-bp): 78.9 ml LVAd ap4: 31.5 cm2 LAV(MOD-bp) Indexed: 43.6 ml/m2 LVLd ap4: 8.0 cm LAV(MOD-sp2): 66.0 ml EDV(MOD-sp4): 100.2 ml LAV(MOD-sp4): 84.1 ml EDV(sp4-el): 105.8 ml LVAs ap4: 16.7 cm2 LVLs ap4: 6.5 cm ESV(MOD-sp4): 36.3 ml ESV(sp4-el): 36.3 ml EF(MOD-sp4): 63.8 % EF(sp4-el): 65.7 % LVAd ap2: 31.3 cm2 SV(MOD-sp4): 63.9 ml SV(MOD-sp2): 57.9 ml LVLd ap2: 8.4 cm SI(MOD-sp4): 35.3 ml/m2 SI(MOD-sp2): 32.0 ml/m2 EDV(MOD-sp2): 98.9 ml EDV(sp2-el): 99.4 ml LVAs ap2: 18.3 cm2 LVLs ap2: 7.0 cm ESV(MOD-sp2): 41.0 ml ESV(sp2-el): 40.3 ml EF(MOD-sp2): 58.5 % SV(sp4-el): 69.5 ml Ao sinus diam: 2.[address] Junction: 2.0 cm LA dimension(2D): 4.8 cm LA A4 area: 25.2 cm2 RA A4 area: 10.7 cm2 TAPSE: 1.6 cm Time Measurements MV dec time: 0.13 sec Doppler Measurements & Calculations MV E max nicolasa: 151.8 cm/sec Lat Peak E' Nicolasa: 10.6 cm/sec Med Peak E' Nicolasa: 9.3 cm/sec MV A max nicolasa: 128.7 cm/sec E/E' lat: 14.3 E/E' med: 16.3 MV E/A: 1.2 MV V2 max: 159.4 cm/sec MV dec slope: 1130 cm/sec2 Ao V2 max: 215.7 cm/sec MV max P.2 mmHg Ao max P.6 mmHg MV V2 mean: 109.3 cm/sec Ao V2 mean: 141.3 cm/sec MV mean P.3 mmHg Ao mean P.2 mmHg MV V2 VTI: 48.4 cm Ao V2 VTI: 51.2 cm MVA(VTI): 1.9 cm2 AV (velocity ratio): 0.66 LORY(I,D): 1.8 cm2 LORY(V,D): 1.8 cm2 LV V1 max: 137.6 cm/sec SV(LVOT): 93.7 ml PA V2 max: 130.4 cm/sec LV V1 max P.6 mmHg LV V1 mean P.0 mmHg LV V1 mean: 93.8 cm/sec LV V1 VTI: 33.7 cm PI end-d nicolasa: 165.1 cm/sec TR max nicolasa: 297.5 cm/sec TR max P.4 mmHg ECHO/Echo Complete Interpretation Summary Normal LV size. Left ventricular systolic function is normal. The left ventricular ejection fraction is 65 %. Stage 2 diastolic dysfunction. Pulmonary artery systolic pressure is 40 mmHg. Small (<1.0 cm) pericardial effusion. Ordering Physician: Saadia Valencia Performed By: Jane Arnold RDCS 04/01/25 1419 Date _ Ernesto Garvin MD CC: Dr. Saadia Valencia MD; Dr. Trevor Vieyra MD; Dr. Armando Booker MD ~ Date Dictated: 03/30/25 0843 Date Transcribed: 03/30/25 1105 Clearing Distribution Clerk: Signed [facility] Work Phone: Electrocardiogram reportOrde red By: Ernesto Garvin on 04-01-2025 EKG study [facility] Cardiovascular Services [address] [place] [address] 12 Lead EKG 03/31/25 0802 MR#: [id number] Acct: [id number] Name: SPENCER REDDING Rep #:[id number] : 1965 59 From: Ernesto Garvin MD Attending Dr: Dr. Armando Booker MD Status: ADM IN Ordering Dr: Armando Booker MD Da te: 03/31/25 Location: ICU Sex: F C Admitted: 03/30/25 Test Reason : O Blood Pressure : */* mmHG Vent. Rate : 81 BPM Atrial Rate : 81 BPM P-R Int : 160 ms QRS Dur : 88 ms QT Int : 498 ms P-R-T Axes : 45 43 57 degrees QTcB Int : 578 ms Critical Test Result: Long QTc Sinus rhythm with frequent and consecutive Premature ventricular complexes in a pattern of bigeminy Nonspecific ST and T wave abnormality Abnormal ECG When compared with ECG of 30-Mar-2025 19:03, MANUAL COMPARISON REQUIRED DATA IS UNCONFIRMED Confirmed by ERNESTO GARVIN MD ([id number]), fashion editor GALO OLGUIN ([id number]) on 04/01/2025 10:41:18 AM Referred By: Confirmed By: ERNESTO GARVIN MD 04/01/25 1041 Date _ Ernesto Garvin MD CC: Dr. Trevor Vieyra MD; Dr. Armando Booker MD ~ Signed [facility] Work Phone: EKG study [facility] Cardiovascular Services [address] [place] [address] 12 Lead EKG 03/31/25 0950 MR#: [id number] Acct: [id number] Name: SPENCER REDDING Rep #:[id number] : 1965 59 From: Ernesto Garvin MD Attending Dr: Dr. Armando Bookre MD Status: ADM IN Ordering Dr: Saadia Valencia MD Date: 03/29/25 Location: ICU Sex: F C Admitted: 03/30/25 Test Reason : Blood Pressure : */* mmHG Vent. Rate : 72 BPM Atrial Rate : 72 BPM P-R Int : 134 ms QRS Dur : 88 ms QT Int : 478 ms P-R-T Axes : -28 44 42 degrees QTcB Int : 523 ms Normal sinus rhythm Nonspecific ST and T wave abnormality Prolonged QT Abnormal ECG When compared with ECG of 31-Mar-2025 08:02, MANUAL COMPARISON REQUIRED DATA IS UNCONFIRMED Confirmed by ERNESTO GARVIN MD ([id number]), fashion editor GALO OLGUIN ([id number]) on 04/01/2025 10:33:41 AM Referred By: Confirmed By: ERNESTO GARVIN MD 04/01/25 1033 Date _ Ernesto Garvin MD CC: Dr. Saadia Valencia MD; Dr. Trevor Vieyra MD; Dr. Armando Booker MD ~ Signed [facility] Work Phone: EKG study [facility] Cardiovascular Services [address] [place] [address] 12 Lead EKG 03/30/25 1903 MR#: [id number] Acct: [id number] Name: SPENCER REDDING Rep #:[id number] : 1965 59 From: Ernesto Garvin MD Attending Dr: Dr. Armando Booker MD Status: ADM IN Ordering Dr: Ernesto Garvin MD Date: Location: ICU Sex: F C Admitted: 03/30/25 Test Reason : ARRYTHMIA Blood Pressure : */* mmHG Vent. Rate : 66 BPM Atrial Rate : 66 BPM P-R Int : 172 ms QRS Dur : 86 ms QT Int : 518 ms P-R-T Axes : 5 39 60 degrees QTcB Int : 543 ms Normal sinus rhythm Nonspecific ST and T wave abnormality Prolonged QT Abnormal ECG When compared with ECG of 30-Mar-2025 05:12, MANUAL COMPARISON REQUIRED DATA IS UNCONFIRMED Confirmed by BHARATHI DAVIS, ERNESTO ([id number]), fashion editor GALO OLGUIN ([id number]) on 04/01/2025 10:32:28 AM Referred By: ANNIE Confirmed By: ERNESTO GARVIN MD 04/01/25 1032 Date _ Ernesto Garvin MD CC: Dr. Ernesto Garvin MD; Dr. Trevor Vieyra MD; Dr. Armando Booker MD ~ Signed [facility] Work Phone: EKG study [facility] Cardiovascular Services [address] [place] [address] 12 Lead EKG 03/29/25 2226 MR#: [id number] Acct: [id number] Name: SPENCER REDDING Rep #:[id number] : 1965 59 From: Ernesto Garvin MD Attending Dr: Dr. Armando Booker MD Status: ADM IN Ordering Dr: Sudarshan Garcia MD Date: 0 03/30/25 Location: ICU Sex: F C Admitted: 03/30/25 Test Reason : CHEST BURNING Blood Pressure : */* mmHG Vent. Rate : 72 BPM Atrial Rate : 72 BPM P-R Int : 176 ms QRS Dur : 86 ms QT Int : 510 ms P-R-T Axes : 8 42 10 degrees QTcB Int : 558 ms Critical Test Result: Long QTc Normal sinus rhythm ST & T wave abnormality, consider anterior ischemia Prolonged QT Abnormal ECG When compared with ECG of 29-Mar-2025 20:14, MANUAL COMPARISON REQUIRED DATA IS UNCONFIRMED Confirmed by BHARATHI DAVIS, ERNESTO ([id number]), fashion editor GALO OLGUIN ([id number]) on 04/01/2025 8:33:18 AM Referred By: Confirmed By: ERNESTO GARVIN MD 04/01/25 0833 Date _ Ernesto Garvin MD CC: Dr. Trevor Vieyra MD; Dr. Armando Booker MD; Dr. Sudarshan Garcia MD ~ Signed [facility] Work Phone: EKG study [facility] Cardiovascular Services [address] [place] [address] 12 Lead EKG 03/30/25 0512 MR#: [id number] Acct: [id number] Name: SPENCER REDDING Rep #:[id number] : 1965 59 From: Ernesto Garvin MD Attending Dr: Dr. Armando Booker MD Status: ADM IN Ordering Dr: Saadia Valencia MD Date: 03/30/25 Location: ICU Sex: F C Admitted: 03/30/25 Test Reason : AM EKG Blood Pressure : */* mmHG Vent. Rate : 67 BPM Atrial Rate : 67 BPM P-R Int : 176 ms QRS Dur : 88 ms QT Int : 490 ms P-R-T Axes : 7 48 85 degrees QTcB Int : 517 ms Normal sinus rhythm Nonspecific ST and T wave abnormality Prolonged QT Abnormal ECG When compared with ECG of 29-Mar-2025 22:26, MANUAL COMPARISON REQUIRED DATA IS UNCONFIRMED Confirmed by ERNESTO GARVIN MD ([id number]), fashion editor GALO OLGUIN ([id number]) on 04/01/2025 8:32:49 AM Referred By: Confirmed By: ERNESTO GARVIN MD 04/01/25 0832 Date _ Ernesto Garvin MD CC: Dr. Saadia Valencia MD; Dr. Trevor Vieyra MD; Dr. Armando Booker MD ~ Signed [facility] Work Phone: EKG study [facility] Cardiovascular Services [address] [place] [address] 12 Lead EKG 03/29/25 1525 MR#: [id number] Acct: [id number] Name: SPENCER REDDING Rep #:[id number] : 1965 59 From: Ernesto Garvin MD Attending Dr: Dr. Armando Booker MD Status: ADM IN Ordering Dr: Saadia Valencia MD Date: 03/29/25 Location: ICU Sex: F C Admitted: 03/30/25 Test Reason : CP Blood Pressure : */* mmHG Vent. Rate : 62 BPM Atrial Rate : 62 BPM P-R Int : 170 ms QRS Dur : 88 ms QT Int : 540 ms P-R-T Axes : 5 43 68 degrees QTcB Int : 548 ms Normal sinus rhythm Nonspecific ST abnormality Prolonged QT Abnormal ECG Confirmed by ERNESTO GARVIN MD ([id number]), fashion editor GALO OLGUIN ([id number]) on 04/01/2025 8:13:12 AM Referred By: CG/ER Confirmed By: ERNESTO GARVIN MD 04/01/2513 Date _ Ernesto Garvin MD CC: Dr. Saadia Valencia MD; Dr. Trevor Vieyra MD; Dr. Armando Booker MD ~ Signed [facility] Work Phone: [phone] Eosinophil percentageOrdered By: Armando Booker on 04-01-2025 Eosinophils/100 WBC (Bld) 8.2 % High 0-5 [facility] Erythrocyte distribution wid th ratioOrdered By: Armando Booker on 04-01-2025 Erythrocyte distribution width (RBC) [Ratio] 18.0 % High 11.6-14.6 [facility] Erythrocyte distribution wid th standard deviationOrdered By: Armando Booker on 04-01-2025 Erythrocyte distribution width (RBC) [Ratio] 58.0 fl High 35.1-43.9 [facility] Glomerular filtration rate ( GFR) estimation/1.73 sq m using serum, plasma, or whole bOrdered By: Armando Booker on 04-01-2025 GFR/1.73 sq M.predicted among non-blacks MDRD (S/P/Bld) [Vol rate/Area] 4 mL/min/{1.73_m2} Low >60 [facility] Comment on above: mL/min/1.73m2 CKD-EP I Creatinine Equation (2020) Hematocrit Auto (Bld) [Volum e fraction]Ordered By: Armando Booker on 04-01-2025 Hematocrit (Bld) [Volume fraction] 27.6 % Low 37-47 [facility] Hemoglobin measurementOrdere d By: Armando Booker on 04-01-2025 Hemoglobin (Bld) [Mass/Vol] 9.1 g/dL Low 12.0-15.0 [facility] Immature granulocytes/100 WB C Auto (Bld)Ordered By: Armando Booker on 04-01-2025 Immature granulocytes/100 WBC (Bld) 0.400 % 0.0-0.9 [facility] Comment on above: IG% - Immature Granu locytes (promyelocytes, myelocytes and metamyelocytes) > 1% indicates that a LEFT SHIFT is Present. MCV (mean corpuscular volume ) determinationOrdered By: Armando Booker on 04-01-2025 MCV (RBC) [Entitic vol] 91.4 fL 81-[address] [facility] Mean corpuscular hemoglobin (MCH) determinationOrdered By: Armando Booker on 04-01-2025 MCH (RBC) [Entitic mass] 30.1 pg 27.0-32.0 [facility] Mean corpuscular hemoglobin concentration (MCHC) determinationOrdered By: Armando Booker on 04-01-2025 MCHC (RBC) [Mass/Vol] 33.0 g/dL 32-36 [facility] Mean platelet volume determi nationOrdered By: Armando Booker on 04-01-2025 Platelet mean volume (Bld) [Entitic vol] 9.2 fL 6.2-12.0 [facility] Monocyte percentageOrdered B y: Armando Booker on 04-01-2025 Monocytes/100 WBC (Bld) 7.5 % 0-[address] [facility] Neutrophil percentageOrdered By: Armando Booker on 04-01-2025 Neutrophils/100 WBC (Bld) 66.8 % 47-70 [facility] Nucleated red blood cell per centageOrdered By: Armando Booker on 04-01-2025 Nucleated RBC/100 WBC (Bld) [Ratio] 0 % 0-5 [facility] Platelet countOrdered By: Radha Booker on 04-01-2025 Platelets (Bld) [#/Vol] 246 10*3/uL 150-450 [facility] Potassium measurement (mass/ volume)Ordered By: Armando Booker on 04-01-2025 Potassium (Unsp spec) [Mass/Vol] 4.5 mmol/L 3.3-5.1 [facility] Prothrombin Time w/INRon INR Normal [facility] Comment on above: Result Comment: ZENAIDA ENT DISCHARGED, NEVER RECEIVED SPECIMEN 04/01/252150 Amy Thomas Performed By: #### L 300.3900, L500.4050, L100.0100 #### [facility] Laboratory [address] [place], [address] PROTIME Normal 11.7-14.9 [facility] Comment on above: Result Comment: ZENAIDA ENT DISCHARGED, NEVER RECEIVED SPECIMEN 04/01/252150 Amy Chamberlainard Performed By: #### L 300.3900, L500.4050, L100.0100 #### [facility] [address] [place], [address] RBC Auto (Bld) [#/Vol]Ordere d By: Armando Booker on 04-01-2025 RBC (Bld) [#/Vol] 3.02 10*6/uL Low 4.2-5.4 [facility] Serum creatinine measurement (mass/volume)Ordered By: Armando Booker on 04-01-2025 Creatinine [Mass/Vol] 11.10 mg/dL Critically high 0.70-1.2 0 [facility] Comment on above: Critical Result(s) C alled at 0638: by: MAKSIM DOS SANTOS. Results read back by same. Serum glucose measurement (m ass/volume)Ordered By: Armando Booker on 04-01-2025 Glucose [Mass/Vol] 91 mg/dL 70-99 [facility] Serum or plasma calcium destini urement (mass/volume)Ordered By: Armando Booker on 04-01-2025 Calcium [Mass/Vol] 7.7 mg/dL 7.6-11.0 [facility] Serum or plasma urea nitroge n measurement (mass/volume)Ordered By: Armando Booker on 04-01-2025 Urea nitrogen [Mass/Vol] 50 mg/dL High 4-19 [facility] Sodium levelOrdered By: Marino Booker on 04-01-2025 Sodium [Moles/Vol] 131 mmol/L Low 133-145 [facility] White blood cell (WBC) count Ordered By: Armando Booker on 04-01-2025 WBC (Bld) [#/Vol] 7.2 10*3/uL 4.4-11.0 [facility] 12 Lead EKGon 03-31-2025 12 Lead EKG [facility] Cardiovascular Services [address] [place] [address] 12 Lead EKG 03/30/25 1903 MR#: [id number] Acct: [id number] Name: SPENCER REDDING Rep #: [id number] : 1965 59 From: Ernesto Garvin MD Attending Dr: Dr. Armando Booker MD Status : ADM IN Ordering Dr: Ernesto Garvin MD Date: 03/31/25 Location: ICU Sex: F C Admitted: 03/30/25 Test Reason : ARRYTHMIA Blood Pressure : */* mmHG Vent. Rate : 66 BPM Atrial Rate : 66 BPM P-R Int : 172 ms QRS Dur : 86 ms QT Int : 518 ms P-R-T Axes : 5 39 60 degrees QTcB Int : 543 ms Normal sinus rhythm Nonspecific ST and T wave abnormality Prolonged QT Abnormal ECG When compared with ECG of 30-Mar-2025 05:12, MANUAL COMPARISON REQUIRED DATA IS UNCONFIRMED Confirmed by BHARATHI DAVIS, ERNESTO ([id number]), fashion editor GALO OLGUIN ([id number]) on 04/01/2025 10:32:28 AM Referred By: ANNIE Confirmed By: ERNESTO GARVIN MD 04/01/25 1032 Date Ernesto Garvin MD CC: Dr. Ernesto Garvin MD; Dr. Trevor Vieyra MD; Dr. Armando Booker MD Signed Normal [facility] 12 Lead EKG [facility] Cardiovascular Services [address] [place] [address] 12 Lead EKG 03/31/25 0802 MR#: [id number] Acct: [id number] Name: CORNELIUS REDDINGKira Grijalva Rep #: [id number] : 1965 59 From: Ernesto Garvin MD Attending Dr: Dr. Armando Booker MD Status : ADM IN Ordering Dr: Armando Booker MD Date: 03/31/25 Location: ICU Sex: F C Admitted: 03/30/25 Test Reason : O Blood Pressure : */* mmHG Vent. Rate : 81 BPM Atrial Rate : 81 BPM P-R Int : 160 ms QRS Dur : 88 ms QT Int : 498 ms P-R-T Axes : 45 43 57 degrees QTcB Int : 578 ms Critical Test Result: Long QTc Sinus rhythm with frequent and consecutive Premature ventricular complexes in a pattern of bigeminy Nonspecific ST and T wave abnormality Abnormal ECG When compared with ECG of 30-Mar-2025 19:03, MANUAL COMPARISON REQUIRED DATA IS UNCONFIRMED Confirmed by BHARATHI DAVIS, ERNESTO ([id number]), fashion editor GALO OLGUIN ([id number]) on 04/01/2025 10:41:18 AM Referred By: Confirmed By: ERNESTO GARVIN MD 04/01/25 1041 Date Ernesto Garvin MD CC: Dr. Trevor Vieyra MD; Dr. Armando Booker MD Signed Normal [facility] Basic Metabolic Profile (BMP )on 03-31-2025 BUN/CRE 4.0 RATIO Low - [facility] Comment on above: Performed By: #### L 300.3900, L500.4050, L100.0100 #### [facility] [address] [place], [address] Calcium [Mass/Vol] 8.0 mg/dL Normal 7.6-11.0 [facility] Comment on above: Performed By: #### L 300.3900, L500.4050, L100.0100 #### [facility] [address] [place], [address] Chloride [Moles/Vol] 89 mmol/L Low 98-108 [facility] Comment on above: Performed By: #### L 300.3900, L500.4050, L100.0100 #### [facility] [address] [place], [address] CO2 [Moles/Vol] 23.0 mmol/L Normal 21.0-32.0 [facility] Comment on above: Performed By: #### L 300.3900, L500.4050, L100.0100 #### [facility] [address] [place], [address] Creatinine [Mass/Vol] 9.32 mg/dL Invalid Interpretation Code 0.70-1.20 [facility] Comment on above: Result Comment: Crit ical Result(s) Called at 0707: by:?? MAKSIM JAMISON. Results read back by same. Performed By: #### L 300.3900, L500.4050, L100.0100 #### [facility] [address] [place], [address] ECRCL 6.33 ml/min Invalid Interpretation Code 50-250 [facility] Comment on above: Performed By: #### L 300.3900, L500.4050, L100.0100 #### [facility] [address] [place], [address] GAP 18 High 5-15 [facility] Comment on above: Performed By: #### L 300.3900, L500.4050, L100.0100 #### [facility] [address] [place], [address] GFR/1.73 sq M.predicted among non-blacks MDRD (S/P/Bld) [Vol rate/Area] 4 mL/min/{1.73_m2} Low >60 [facility] Comment on above: Result Comment: mL/m in/1.73m2 CKD-EPI Creatinine Equation (2021) Performed By: #### L 300.3900, L500.4050, L100.0100 #### [facility] [address] [place], [address] Glucose [Mass/Vol] 156 mg/dL High 70-99 [facility] Comment on above: Performed By: #### L 300.3900, L500.4050, L100.0100 #### [facility] [address] [place], [address] Potassium [Moles/Vol] 3.5 mmol/L Normal 3.3-5.1 [facility] Comment on above: Performed By: #### L 300.3900, L500.4050, L100.0100 #### [facility] [address] [place], [address] Sodium [Moles/Vol] 130 mmol/L Low 133-145 [facility] Comment on above: Performed By: #### L 300.3900, L500.4050, L100.0100 #### [facility] [address] [place], [address] Urea nitrogen [Mass/Vol] 37 mg/dL High 4-19 [facility] Comment on above: Performed By: #### L 300.3900, L500.4050, L100.0100 #### [facility] [address] [place], [address] CBC W/Diff, Automatedon 09-2 Absolute Lymph 0.72 X10 3/uL Low 0.83-4.51 [facility] Comment on above: Performed By: #### L 300.3900, L500.4050, L100.0100 #### [facility] [address] [place], [address] Absolute Neut 5.0 X10 3/uL Normal 2.0-7.7 [facility] Comment on above: Performed By: #### L 300.3900, L500.4050, L100.0100 #### [facility] [address] [place], [address] Basophils/100 WBC (Bld) 0.3 % Normal 0-[address] [facility] Comment on above: Performed By: #### L 300.3900, L500.4050, L100.0100 #### [facility] [address] [place], [address] Eosinophils/100 WBC (Bld) 2.9 % Normal 0-5 [facility] Comment on above: Performed By: #### L 300.3900, L500.4050, L100.0100 #### [facility] [address] [place], [address] Erythrocyte distribution width (RBC) [Ratio] 17.6 % High 11.6-14.6 [facility] Comment on above: Performed By: #### L 300.3900, L500.4050, L100.0100 #### [facility] [address] [place], [address] Hematocrit (Bld) [Volume fraction] 27.7 % Low 37-47 [facility] Comment on above: Performed By: #### L 300.3900, L500.4050, L100.0100 #### [facility] [address] [place], [address] Hemoglobin (Bld) [Mass/Vol] 9.1 g/dL Low 12.0-15.0 [facility] Comment on above: Performed By: #### L 300.3900, L500.4050, L100.0100 #### [facility] [address] [place], [address] IG% 0.300 Normal 0.0-0.9 [facility] Comment on above: Result Comment: IG% - Immature Granulocytes (promyelocytes, myelocytes and metamyelocytes) > 1% indicates that a LEFT SHIFT is Present. Performed By: #### L 300.3900, L500.4050, L100.0100 #### [facility] [address] [place], [address] Lymphocytes/100 WBC (Bld) 11.1 % Low 19-41 [facility] Comment on above: Performed By: #### L 300.3900, L500.4050, L100.0100 #### [facility] [address] [place], [address] MCH (RBC) [Entitic mass] 29.7 pg Normal 27.0-32.0 [facility] Comment on above: Performed By: #### L 300.3900, L500.4050, L100.0100 #### [facility] [address] [place], [address] MCHC (RBC) [Mass/Vol] 32.9 g/dL Normal 32-36 [facility] Comment on above: Performed By: #### L 300.3900, L500.4050, L100.0100 #### [facility] [address] [place], [address] MCV (RBC) [Entitic vol] 90.5 fL Normal 81-[address] [facility] Comment on above: Performed By: #### L 300.3900, L500.4050, L100.0100 #### [facility] [address] [place], [address] Monocytes/100 WBC (Bld) 8.0 % Normal 0-[address] [facility] Comment on above: Performed By: #### L 300.3900, L500.4050, L100.0100 #### [facility] [address] [place], [address] Neutrophils/100 WBC (Bld) 77.4 % High 47-70 [facility] Comment on above: Performed By: #### L 300.3900, L500.4050, L100.0100 #### [facility] [address] [place], [address] Nucleated RBC (Bld) [#/Vol] 0 10*3/uL Normal 0-5 [facility] Comment on above: Performed By: #### L 300.3900, L500.4050, L100.0100 #### [facility] [address] [place], [address] Platelet mean volume (Bld) [Entitic vol] 9.1 fL Normal 6.2-12.0 [facility] Comment on above: Performed By: #### L 300.3900, L500.4050, L100.0100 #### [facility] [address] [place], [address] Platelets (Bld) [#/Vol] 232 10*3/uL Normal 150-450 [facility] Comment on above: Performed By: #### L 300.3900, L500.4050, L100.0100 #### [facility] [address] [place], [address] RBC (Bld) [#/Vol] 3.06 10*6/uL Low 4.2-5.4 [facility] Comment on above: Performed By: #### L 300.3900, L500.4050, L100.0100 #### [facility] [address] [place], [address] RDW SD 54.9 fl High 35.1-43.9 [facility] Comment on above: Performed By: #### L 300.3900, L500.4050, L100.0100 #### [facility] [address] [place], [address] WBC (Bld) [#/Vol] 6.5 10*3/uL Normal 4.4-11.0 [facility] Comment on above: Performed By: #### L 300.3900, L500.4050, L100.0100 #### [facility] [address] [place], [address] Calculated very low density lipoprotein (VLDL) cholesterol measurementOrdered By: Sudarshan Garcia on 03-31-2025 Calculated very low density lipoprotein (VLDL) cholesterol measurement 33 mg/dL 5-40 [facility] Consultation - Cardiologyon 03-31-2025 Consultation - Cardiology [facility] Medical Records Department [address] [place] [address] Consultation - Cardiology 03/31/25 0825 MR#: [id number] Acct: [id number] Name: SPENCER REDDING Rep #: [id number] : 1965 59 From: Ernesto Garvin MD PCP: Dr. Trevor Vieyra MD Status:DIS IN Location: ICU ICU02-1 Assessment Plan Assessment/Plan (1) Torsades de pointes: PLAN: She does present with symptomatic torsade de pointes. The plan will be to try and keep her potassium at 4.0 or higher. She will be given extra potassium this morning not with standing renal problems. She is also on the Isopril which will be continued but we will reduce the dose to 2.5 mics per minute. Will continue to monitor her with serial EKGs. (2) Accelerated essential hypertension: PLAN: Her blood pressure was elevated overnight. Will adjust her medications and increase amlodipine to 10 mg a day and continue her other current medications. Will discuss with nephrology about continued use of [place]. (3) History of implantable cardiac defibrillator (ICD): PLAN: She is status post implantable defibrillator. No defibrillator discharges have been noted. (4) History of coronary artery stent placement: PLAN: She does have a history of coronary artery disease coronary artery stenting of the right coronary artery and the left anterior descending artery. Stress test performed during this admission demonstrates no evidence of ischemia. (5) Benign essential hypertension: PLAN: Her blood pressure is elevated and we will try and make appropriate adjustments. Echocardiogram demonstrated preserved ejection fraction of 65%. (6) Hyperlipidemia: QUALIFIERS: Hyperlipidemia type: unspecified Qualified Code(s): E78.5 - Hyperlipidemia, unspecified PLAN: She does have a history of hyperlipidemia and will continue with risk factor modification. HPI Consult Data Date of Consult: 03/31/25 HPI Narrative HPI Narrative: SPENCER REDDING, is a 59 F who presents to the emergency room with complaints of chest discomfort, dyspnea and elevated blood pressure. She was also noted to have a 10 beat run of a wide-complex tachycardia. She was admitted to the telemetry unit and underwent an echocardiogram which demonstrated preserved ejection fraction as well as myocardial perfusion stress test which demonstrated no evidence of ischemia. While on the telemetry floor the patient was noted to have wide-complex tachycardia in the pattern of torsade. Cardiology was called for evaluation and management. Patient was noted to have a prolonged QT interval. She had been on digoxin. She has a history of coronary artery [...] was managed medically. As a result of her rhythm abnormalities of the above she also underwent implantation of a subcutaneous defibrillator in July 2016. She had generator changed in November 2019. She continues on dialysis 3 times a week M,W, and F. She also has a history of hypertension, hyperparathyroidism, and anemia. She does have her ICD checked routinely through [facility]. Her INR is managed by her PCP. When she was last seen in the office,She denies chest, arm, jaw, or neck discomfort. [...] fatigue. Her exercise level has remained stable. EKG on the telemetry floor demonstrated prolonged QT of 540 ms and resulting torsade de pointes. She was transferred to the telemetry intensive care unit and started on intravenous Isopril. This morning she is doing so much better with no further rhythm abnormalities present. [facility] Medical History Polycystic kidney disease Sudden cardiac Hypertriglyceridemia Hyperlipidemia History of torsades de pointes Atherosclerosis of coronary artery of [place] heart without angina pectoris Syncope and collapse Ventricular fibrillation Ischemic cardiomyopathy ESRD (end stage renal disease) on dialysis Nonsustained ventricular tachycardia History of recurrent miscarriages, not currently History of DVT (deep vein thrombosis) Congenital polycystic kidney disease History (more content not included)... Normal [facility] normalized rat io (INR) calculationOrdered By: Sudarshan Garcia on 03-31-2025 INR Coag (Bld) [Relative time] 2.7 {INR} [facility] LDL calc ser/plasOrdered By: Sudarshan Garcia on 03-31-2025 Cholesterol in LDL [Mass/Vol] 95 mg/dL [facility] Comment on above: Woyugknrhw=707-453 m g/dL & Higher Dkkb=725 mg/dL or greaterFriedwald Equation for LDL-C Lipid Profileon 03-31-2025 CHOL:HDL 5.83 Normal [facility] Comment on above: Performed By: #### L 300.3900, L500.4050, L100.0100 #### [facility] [address] [place], [address] Cholesterol [Mass/Vol] 155 mg/dL Normal <=[address] [facility] Comment on above: Result Comment: Chol esterol level, Desirable <200 mg/dL Borderline high cholesterol 200-239 mg/dL High cholesterol >=240 mg/dL Recommendations of the NCEP Adult Treatment Panel for the following risk-cutoff thresholds for the [place] population. Performed By: #### L 300.3900, L500.4050, L100.0100 #### [facility] [address] [place], [address] Cholesterol in HDL [Mass/Vol] 27 mg/dL Low [facility] Comment on above: Result Comment: Susana onal Cholesterol Education Program (NCEP) guidelines: <40 mg/dL: Low HDL-cholesterol (major risk factor for CHD) >= 60 mg/dL: High HDL-cholesterol (negative risk factor for CHD) HDL-cholesterol is affected by a number of factors, e.g. smoking, exercise, hormones, sex and age. Performed By: #### L 300.3900, L500.4050, L100.0100 #### [facility] [address] [place], [address] Cholesterol in LDL [Mass/Vol] 95 mg/dL Normal [facility] Comment on above: Result Comment: Bord wybzyw=579-825 mg/dL Higher Ipih=775 mg/dL or greater Friedwald Equation for LDL-C Performed By: #### L 300.3900, L500.4050, L100.0100 #### [facility] [address] [place], [address] Cholesterol in VLDL [Mass/Vol] 33 mg/dL Normal 5-40 [facility] Comment on above: Performed By: #### L 300.3900, L500.4050, L100.0100 #### [facility] [address] [place], [address] Triglyceride [Mass/Vol] 166 mg/dL Normal [facility] Comment on above: Result Comment: The drugs N-Acetylcysteine and Metamizole may falsely depress this assay. Normal range: <150 mg/dL Borderline High: 150-199 mg/dL High: 200-499 mg/dL Very High: >500 mg/dL Performed By: #### L 300.3900, L500.4050, L100.0100 #### [facility] [address] [place], [address] Magnesiumon 03-31-2025 Magnesium [Mass/Vol] 2.8 mg/dL High 1.5-2.2 [facility] Comment on above: Performed By: #### L 300.3900, L500.4050, L100.0100 #### [facility] [address] [place], [address] Magnesium measurement (mass/ volume)Ordered By: Ernesto Garvin on 03-31-2025 Magnesium (Unsp spec) [Mass/Vol] 2.8 mg/dL High 1.5-2.2 [facility] Prothrombin Time w/INRon INR Coag (PPP) [Relative time] 2.7 {INR} Normal [facility] Comment on above: Performed By: #### L 300.3900, L500.4050, L100.0100 #### [facility] [address] [place], [address] PT Coag (PPP) [Time] 29.6 s High 11.7-14.9 [facility] Comment on above: Performed By: #### L 300.3900, L500.4050, L100.0100 #### [facility] [address] [place], [address] Prothrombin timeOrdered By: Sudarshan Garcia on 03-31-2025 PT Coag (PPP) [Time] 29.6 s High 11.7-14.9 [facility] Screening total cholesterol/ high density lipoprotein (HDL) cholesterol ratioOrdered By: Sudarshan Garcia on 03-31-2025 Cholesterol.total/Shelbie sterol in HDL [Mass ratio] 5.83 {ratio} [facility] Serum or plasma cholesterol in HDL measurement (mass/volume)Ordered By: Sudarshan Garcia on 03-31-2025 Cholesterol in HDL [Mass/Vol] 27 mg/dL Low >40 [facility] Comment on above: National Cholesterol Education Program (NCEP) guidelines:<40 mg/dL: Low HDL-cholesterol (major risk factor for CHD)>= 60 mg/dL: High HDL-cholesterol (negative risk factor for CHD)HDL-cholesterol is affected by a number of factors, e.g. smoking, exercise, hormones, sex and age. Serum or plasma cholesterol measurement (mass/volume)Ordered By: Sudarshan Garcia on 03-31-2025 Cholesterol [Mass/Vol] 155 mg/dL <[address] [facility] Comment on above: Cholesterol level, D esirable <200 mg/dLBorderline high cholesterol 200-239 mg/dLHigh cholesterol >=240 mg/dLRecommendations of the NCEP Adult Treatment Panel for the following risk-cutoff thresholds for the [place] population. Triglycerides measurementOrd ered By: Sudarshan Garcia on 03-31-2025 Triglyceride [Mass/Vol] 166 mg/dL <[address] [facility] Comment on above: The drugs N-Acetylcy steine and Metamizole may falsely depress this assay. Normal range: <150 mg/dLBorderline High: 150-199 mg/dLHigh: 200-499 mg/dLVery High: >500 mg/dL 12 Lead EKGon 03-30-2025 12 Lead EKG [facility] Cardiovascular Services [address] [place] [address] 12 Lead EKG 03/29/25 2226 MR#: [id number] Acct: [id number] Name: SPENCER REDDING Rep #: [id number] : 1965 59 From: Ernesto Garvin MD Attending Dr: Dr. Armando Booker MD Status : ADM IN Ordering Dr: Sudarshan Garcia MD Date: 03/30/25 Location: ICU Sex: F C Admitted: 03/30/25 Test Reason : CHEST BURNING Blood Pressure : */* mmHG Vent. Rate : 72 BPM Atrial Rate : 72 BPM P-R Int : 176 ms QRS Dur : 86 ms QT Int : 510 ms P-R-T Axes : 8 42 10 degrees QTcB Int : 558 ms Critical Test Result: Long QTc Normal sinus rhythm ST T wave abnormality, consider anterior ischemia Prolonged QT Abnormal ECG When compared with ECG of 29-Mar-2025 20:14, MANUAL COMPARISON REQUIRED DATA IS UNCONFIRMED Confirmed by ERNESTO GARVIN MD ([id number]), fashion editor GALO OLGUIN ([id number]) on 04/01/2025 8:33:18 AM Referred By: Confirmed By: ERNESTO GARVIN MD 04/01/25 0833 Date Ernesto Garvin MD CC: Dr. Trevor Vieyra MD; Dr. Armando Booker MD; Dr. Sudarshan Garcia MD Signed [facility] 12 Lead EKG [facility] Cardiovascular Services [address] [place] [address] 12 Lead EKG 03/30/25 0512 MR#: [id number] Acct: [id number] Name: SPENCER REDDING Rep #: [id number] : 1965 59 From: Ernesto Garvin MD Attending Dr: Dr. Armando Booker MD Status : ADM IN Ordering Dr: Saadia Valencia MD Date: 03/30/25 Location: ICU Sex: F C Admitted: 03/30/25 Test Reason : AM EKG Blood Pressure : */* mmHG Vent. Rate : 67 BPM Atrial Rate : 67 BPM P-R Int : 176 ms QRS Dur : 88 ms QT Int : 490 ms P-R-T Axes : 7 48 85 degrees QTcB Int : 517 ms Normal sinus rhythm Nonspecific ST and T wave abnormality Prolonged QT Abnormal ECG When compared with ECG of 29-Mar-2025 22:26, MANUAL COMPARISON REQUIRED DATA IS UNCONFIRMED Confirmed by BHARATHI DAVIS, ERNESTO ([id number]), fashion editor GALO OLGUIN ([id number]) on 04/01/2025 8:32:49 AM Referred By: Confirmed By: ERNESTO GARVIN MD 04/01/25 0832 Date Ernesto Garvin MD CC: Dr. Saadia Valencia MD; Dr. Trevor Vieyra MD; Dr. Armando Booker MD Signed [facility] Abd Inc Decub and/or Erecton 03-30-2025 Abd Inc Decub and/or Erect [facility] Imaging Services [address] [place] [address] Abd Inc Decub and/or Erect MR#: [id number] Acct: [id number] Name: SPENCER REDDING Rep #: [id number] : 1965 F 59 From: Marcin Keller MD PCP: Dr. Trevor Vieyra MD Status: ADM ISAIAS Study: Abd Inc Decub and/or Erect Date of Exam: 03/30 Exam# [id number] Ordering Dr: Sudarshan Garcia MD PROCEDURE: ABD INC DECUB AND/OR ERECT 03/30/2025 REASON FOR EXAM: CONSTIPATION TECHNIQUE: Procedure Code: RADABDMV Modality: DX Procedure: ABD INC DECUB AND/OR ERECT COMPARISON: None FINDINGS: Limitation: Free air and air-fluid levels can not be assessed on the views obtained. Gastrointestinal: Small amount of gas seen within the left upper quadrant, likely gastric and nonspecific. No asymmetric significant gaseous small bowel dilation to suggest a complete obstruction. No significant gaseous or fecal distention of colon to suggest significant constipation. Nonspecific gas is seen overlying the abdomen as well as the pelvis. If intraperitoneal inflammatory changes are suspected, consider CT with contrast. Soft tissue: Extensive vascular calcifications noted. Soft tissue abnormality is not well assessed by this technique. Lung bases: Bibasal opacities noted which may be due to trace amount of pleural fluid, atelectasis and/or scarring. Osseous: Bony degenerative changes noted. RAD/Abd Inc Decub and/or Erect IMPRESSION: Nonspecific findings. - Findings and recommendations discussed above in detail. Reading Location: [facility] CC: Dr. Trevor Vieyra MD; Dr. Sudarshan Garcia MD Clearing Distribution Clerk: Signed Normal [facility] Bilirubin, totalOrdered By: Saadia Valencia on 03-30-2025 Bilirubin [Mass/Vol] 0.54 mg/dL 0.00-1.30 [facility] CBC W/Diff, Automatedon 03-12 Absolute Lymph 0.65 X10 3/uL Low 0.83-4.51 [facility] Comment on above: Performed By: #### L 300.3900, L500.4050, L100.0100 #### [facility] [address] [place], [address] Absolute Neut 3.2 X10 3/uL Normal 2.0-7.7 [facility] Comment on above: Performed By: #### L 300.3900, L500.4050, L100.0100 #### [facility] [address] [place], [address] Basophils/100 WBC (Bld) 0.9 % Normal 0-[address] [facility] Comment on above: Performed By: #### L 300.3900, L500.4050, L100.0100 #### [facility] [address] [place], [address] Eosinophils/100 WBC (Bld) 6.4 % High 0-5 [facility] Comment on above: Performed By: #### L 300.3900, L500.4050, L100.0100 #### [facility] [address] [place], [address] Erythrocyte distribution width (RBC) [Ratio] 17.2 % High 11.6-14.6 [facility] Comment on above: Performed By: #### L 300.3900, L500.4050, L100.0100 #### [facility] [address] [place], [address] Hematocrit (Bld) [Volume fraction] 26.9 % Low 37-47 [facility] Comment on above: Performed By: #### L 300.3900, L500.4050, L100.0100 #### [facility] [address] [place], [address] Hemoglobin (Bld) [Mass/Vol] 8.6 g/dL Low 12.0-15.0 [facility] Comment on above: Performed By: #### L 300.3900, L500.4050, L100.0100 #### [facility] [address] [place], [address] IG% 0.400 Normal 0.0-0.9 [facility] Comment on above: Result Comment: IG% - Immature Granulocytes (promyelocytes, myelocytes and metamyelocytes) > 1% indicates that a LEFT SHIFT is Present. Performed By: #### L 300.3900, L500.4050, L100.0100 #### [facility] [address] [place], [address] Lymphocytes/100 WBC (Bld) 14.4 % Low 19-41 [facility] Comment on above: Performed By: #### L 300.3900, L500.4050, L100.0100 #### [facility] [address] [place], [address] MCH (RBC) [Entitic mass] 29.4 pg Normal 27.0-32.0 [facility] Comment on above: Performed By: #### L 300.3900, L500.4050, L100.0100 #### [facility] [address] [place], [address] MCHC (RBC) [Mass/Vol] 32.0 g/dL Normal 32-36 [facility] Comment on above: Performed By: #### L 300.3900, L500.4050, L100.0100 #### [facility] [address] [place], [address] MCV (RBC) [Entitic vol] 91.8 fL Normal 81-[address] [facility] Comment on above: Performed By: #### L 300.3900, L500.4050, L100.0100 #### [facility] [address] [place], [address] Monocytes/100 WBC (Bld) 7.3 % Normal 0-[address] [facility] Comment on above: Performed By: #### L 300.3900, L500.4050, L100.0100 #### [facility] [address] [place], [address] Neutrophils/100 WBC (Bld) 70.6 % High 47-70 [facility] Comment on above: Performed By: #### L 300.3900, L500.4050, L100.0100 #### [facility] [address] [place], [address] Nucleated RBC (Bld) [#/Vol] 0 10*3/uL Normal 0-5 [facility] Comment on above: Performed By: #### L 300.3900, L500.4050, L100.0100 #### [facility] [address] [place], [address] Platelet mean volume (Bld) [Entitic vol] 10.1 fL Normal 6.2-12.0 [facility] Comment on above: Performed By: #### L 300.3900, L500.4050, L100.0100 #### [facility] [address] [place], [address] Platelets (Bld) [#/Vol] 230 10*3/uL Normal 150-450 [facility] Comment on above: Performed By: #### L 300.3900, L500.4050, L100.0100 #### [facility] [address] [place], [address] RBC (Bld) [#/Vol] 2.93 10*6/uL Low 4.2-5.4 [facility] Comment on above: Performed By: #### L 300.3900, L500.4050, L100.0100 #### [facility] [address] [place], [address] RDW SD 53.4 fl High 35.1-43.9 [facility] Comment on above: Performed By: #### L 300.3900, L500.4050, L100.0100 #### [facility] [address] [place], [address] WBC (Bld) [#/Vol] 4.5 10*3/uL Normal 4.4-11.0 [facility] Comment on above: Performed By: #### L 300.3900, L500.4050, L100.0100 #### [facility] [address] [place], [address] CRPon 03-30-2025 C-REACTIVE PROT < 3.00 Normal 0.0-3.0 [facility] Comment on above: Performed By: #### L 300.3900, L500.4050, L100.0100 #### [facility] [address] [place], [address] Cardiovascular stress test r eportOrdered By: Ernesto Garvin on 03-30-2025 Study report [facility] Cardiovascular Services [address] [place] [address] MR#: [id number] Acct: [id number] Name: SPENCER REDDING Rep #: [id number] : 1965 59 From: Ernesto Garvin MD Primary Care: Dr. Trevor Vieyra MD Status: ADM ISAIAS Referring Dr: Sex: F C Stress Test Report Pharmacologic myocardial perfusion stress test. 59-year-old lady with a history of chest pain, coronary disease, ischemic cardiomyopathy. Resting EKG demonstrates normal sinus rhythm with a rate of 69 bpm. Resting blood pressure is 192/60 mmHg. 0.4 mg of regadenoson was infused per usual protocol followed by rapid intravenous saline flush injection. Continuous EKG monitoring was performed. The maximum heart rate was 83 bpm which was 51% of maximpacted heart rate the maximum workload was 1 metabolic equivalent. At rest there were no ST or T wave changes noted to suggest ischemia and at peak infusion nonspecific ST changes were noted which did not meet the criteria for ischemia. No clinical angina is noted. The final blood pressure was 180/52 mmHg. Myocardial perfusion protocol. 12 mCi of technetium 99m sestamibi was injected at rest. 0.4 mg of regadenoson was infused per usual protocol. At peak infusion 36 mCi of technetium 99m sestamibi was injected stress images were obtained stress and rest images were reconstructed and compared in the short axis vertical long and horizontal long axis. Gated images were also obtained. Perfusion SPECT analysis: Review of the stress images demonstrate normal uptake of tracer noted in all areas of the myocardium. The resting images similar demonstrated normal uptake of tracer noted in all areas of the myocardium. No areas of reversibility are noted to suggest ischemia and no previous infarct is noted. Gated SPECT analysis: The gated ejection fraction is 56%. Conclusion: Normal pharmacologic myocardial perfusion stress test. Preserved ejection fraction. 03/30/25 1233 Date _ Ernesto Garvin MD CC: Dr. Saadia Valencia MD; Dr. Padmini Wen DO; Dr. Trevor Vieyra MD; Dr. Watson Dalal MD; Dr. Sudarshan Garcia MD ~ Date Dictated: 03/30/25 1231 Date Transcribed: 03/30/25 1231 Clearing Distribution Clerk: [place] Signed [facility] Work Phone: Comprehensive Metabolic Prof [facility] 03-30-2025 Albumin [Mass/Vol] 3.6 g/dL Normal 3.4-4.8 [facility] Comment on above: Performed By: #### L 300.3900, L500.4050, L100.0100 #### [facility] Laboratory [address] [place], [address] Albumin/Globulin [Mass ratio] 1.6 {ratio} Normal 0.9-2.4 [facility] Comment on above: Performed By: #### L 300.3900, L500.4050, L100.0100 #### [facility] [address] [place], [address] ALK PHOS 47 U/L Normal 35-104 [facility] Comment on above: Performed By: #### L 300.3900, L500.4050, L100.0100 #### [facility] [address] [place], [address] ALT [Catalytic activity/Vol] 19 U/L Normal <=34 [facility] Comment on above: Performed By: #### L 300.3900, L500.4050, L100.0100 #### [facility] [address] [place], [address] AST [Catalytic activity/Vol] 23 U/L Normal <=31 [facility] Comment on above: Performed By: #### L 300.3900, L500.4050, L100.0100 #### [facility] [address] [place], [address] Bilirubin [Mass/Vol] 0.54 mg/dL Normal 0.00-1.30 [facility] Comment on above: Performed By: #### L 300.3900, L500.4050, L100.0100 #### [facility] [address] [place], [address] BUN/CRE 3.6 RATIO Low 10-20 [facility] Comment on above: Performed By: #### L 300.3900, L500.4050, L100.0100 #### [facility] [address] [place], [address] Calcium [Mass/Vol] 8.2 mg/dL Normal 7.6-11.0 [facility] Comment on above: Performed By: #### L 300.3900, L500.4050, L100.0100 #### [facility] [address] [place], [address] Chloride [Moles/Vol] 95 mmol/L Low 98-108 [facility] Comment on above: Performed By: #### L 300.3900, L500.4050, L100.0100 #### [facility] [address] [place], [address] CO2 [Moles/Vol] 27.1 mmol/L Normal 21.0-32.0 [facility] Comment on above: Performed By: #### L 300.3900, L500.4050, L100.0100 #### [facility] [address] [place], [address] Creatinine [Mass/Vol] 7.27 mg/dL High 0.70-1.20 [facility] Comment on above: Performed By: #### L 300.3900, L500.4050, L100.0100 #### [facility] [address] [place], [address] ECRCL 8.07 ml/min Invalid Interpretation Code 50-250 [facility] Comment on above: Performed By: #### L 300.3900, L500.4050, L100.0100 #### [facility] [address] [place], [address] GAP 15 Normal 5-15 [facility] Comment on above: Performed By: #### L 300.3900, L500.4050, L100.0100 #### [facility] [address] [place], [address] GFR/1.73 sq M.predicted among non-blacks MDRD (S/P/Bld) [Vol rate/Area] 6 mL/min/{1.73_m2} Low >60 [facility] Comment on above: Result Comment: mL/m in/1.73m2 CKD-EPI Creatinine Equation (2020) Performed By: #### L 300.3900, L500.4050, L100.0100 #### [facility] [address] [place], [address] Globulin (S) [Mass/Vol] 2.2 g/dL Normal 2.2-4.2 [facility] Comment on above: Performed By: #### L 300.3900, L500.4050, L100.0100 #### [facility] [address] [place], [address] Glucose [Mass/Vol] 102 mg/dL High 70-99 [facility] Comment on above: Performed By: #### L 300.3900, L500.4050, L100.0100 #### [facility] [address] [place], [address] Potassium [Moles/Vol] 3.9 mmol/L Normal 3.3-5.1 [facility] Comment on above: Performed By: #### L 300.3900, L500.4050, L100.0100 #### [facility] [address] [place], [address] Sodium [Moles/Vol] 136 mmol/L Normal 133-145 [facility] Comment on above: Performed By: #### L 300.3900, L500.4050, L100.0100 #### [facility] [address] [place], [address] T PROT 5.8 g/dL Low 5.9-8.4 [facility] Comment on above: Performed By: #### L 300.3900, L500.4050, L100.0100 #### [facility] [address] [place], [address] Urea nitrogen [Mass/Vol] 27 mg/dL High 4-19 [facility] Comment on above: Performed By: #### L 300.3900, L500.4050, L100.0100 #### [facility] [address] [place], [address] Consultation - Nephrologyon 03-30-2025 Consultation - Nephrology [facility] Medical Records Department [address] [place] [address] Consultation - Nephrology 03/30/251956 MR#: [id number] Acct: [id number] Name: SPENCER REDDING Rep #: [id number] : 1965 59 From: Ace Salgado MD PCP: Dr. 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 Patient presented to hospital on 03/29/2025 with chest pain, abdominal pain and dyspnea while she is getting dialysis on 03/29/2025. Patient was also found to have severe hypertension on presentation. Nephrology is asked to see the patient because of ESRD and for dialysis management. ESRD. Patient usually dialyzes on MWF schedule. Patient was dialyzed yesterday on 03/29/2025 prior to admission. There is no hyperkalemia, metabolic acidosis or significant volume overload today. There is no need for dialysis today. Will plan on dialyzing patient on 04/01/2025 on her usual schedule. Hypertension. BP has been as high as 219/69 mmHg when patient presented on 03/28/2025. BP has trended down since admission. Patient is currently on carvedilol 12.5 mg twice daily, losartan 100 mg daily, and chlorthalidone 12.5 mg daily. Chlorthalidone is unlikely to be effective for BP control in the setting of ESRD. Patient is also anephric from bilateral nephrectomy. I would recommend stopping chlorthalidone and starting calcium channel genesis such as amlodipine instead. HPI Consult Data Date of Consult: 03/31/25 HPI Narrative Reason for Consultation: ESRD. 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 Patient presented to hospital on 03/29/2025 with chest pain, abdominal pain and dyspnea while she is getting dialysis on 03/29/2025. Patient was also found to have severe hypertension on presentation. Nephrology is asked to see the patient because of ESRD and for dialysis management. Patient normally dialyzes on MWF schedule. She was dialyzed prior to admission. Patient denies chest pain, dyspnea, or nausea/vomiting. There has been no diarrhea. Patient does complain of cough which is productive for the past 2 weeks. [facility] Medical History Polycystic kidney disease Sudden cardiac Hypertriglyceridemia Hyperlipidemia History of torsades de pointes Atherosclerosis of coronary artery of [place] heart without angina pectoris Syncope and collapse Ventricular fibrillation Ischemic cardiomyopathy ESRD (end stage renal disease) on dialysis Nonsustained ventricular tachycardia History of recurrent miscarriages, not currently History of DVT (deep vein thrombosis) Congenital polycystic kidney disease History of allergic rhinitis Obesity Benign essential hypertension Home Medications ???Medication ???Instructions ???Recorded ???Last Taken ???Type sertraline 50 mg tablet 75 mg PO QHS depression 01/19/17 0 03/15/23 History cholecalciferol (vitamin D3) 25 1,000 unit PO QDAY supplement 10/0903/15/23 History mcg (1,000 unit) tablet sevelamer carbonate 800 mg tablet 4,000 mg PO TID binder 30 days #9 0 06/11/21 03/15/23 History tabs calcium carbonate (Tums) 400 mg PO BID 03/30/22 03/15/23 Hi story nitroglycerin 0.4 mg sublingual 0.4 mg sublingual Q5M PRN Chest 03/15/23 Rx tablet Pain #25 tabs ipratropium bromide 21 mcg (0.03 2 spray intranasal DAILY 05/10/23 Unknown History %) nasal spray atorvastatin 10 mg tablet 10 mg PO DAILY cholesterol #30 tab s 10/11/24 Unknown Rx levothyroxine 25 mcg tablet 25 mcg PO QDAY thyroid 10/11/24 Un known History vitamin B complex-vitamin C-folic 1 tab PO QDAY supplement 10/11/24 Unknown History acid 0.8 mg tablet (Rani-Yahir) warfarin 2 mg tablet 9 mg PO SUTUTHSA blood thinner 10/02 Unknown History warfarin 3 mg tablet 8 mg PO MOWEFR blood thinner 10/11 Unknown History zolpidem 10 mg tablet 10 mg PO QHS PRN insomnia 10/11/24 Unknown History digoxin 125 mcg (0.125 mg) tablet 125 mcg PO QODAY heart #30 tabs 0 01/09/25 Unknown Rx carvedilol 6.25 mg tablet 6.25 mg PO BID blood pressure 03/11 04/04 Unknown History telmisartan 40 mg tablet 40 mg PO BID blood pressure (more content not included)... Normal [facility] Erythrocyte Sed Rateon 03-30 SED RATE 4 mm/hr Normal 0-30 [facility] Comment on above: Performed By: #### L 300.3900, L500.4050, L100.0100 #### [facility] [address] [place], [address] Erythrocyte sedimentation ra teOrdered By: Saadia Valencia on 03-30-2025 ESR (Bld) [Velocity] 4 mm/h 0-30 [facility] - Chemistry and C hemistry - challengeOrdered By: Saadia Valencia on 03-30-2025 AST [Catalytic activity/Vol] 23 U/L <32 [facility] Magnesiumon 03-30-2025 Magnesium [Mass/Vol] 2.3 mg/dL High 1.5-2.2 [facility] Comment on above: Performed By: #### L 300.3900, L500.4050, L100.0100 #### [facility] [address] [place], [address] Phosphoruson 03-30-2025 Phosphate [Mass/Vol] 4.0 mg/dL Normal 2.7-4.5 [facility] Comment on above: Performed By: #### L 300.3900, L500.4050, L100.0100 #### [facility] [address] [place], [address] Prothrombin Time w/INRon INR Coag (PPP) [Relative time] 2.3 {INR} Normal [facility] Comment on above: Performed By: #### L 300.3900, L500.4050, L100.0100 #### [facility] [address] [place], [address] PT Coag (PPP) [Time] 26.2 s High 11.7-14.9 [facility] Comment on above: Performed By: #### L 300.0440, L500.7770, L100.0100 #### [facility] [address] [place], [address] Serum globulin measurementOr dered By: [facility] on 03-30-2025 Globulin (S) [Mass/Vol] 2.2 g/dL 2.2-4.[address] [facility] Serum or plasma C reactive p rotein measurement (mass/volume)Ordered By: [facility] on 03-30-2025 CRP [Mass/Vol] mg/L 0.0-3.0 [facility] Serum or plasma alanine cervantes otransferase (ALT) measurementOrdered By: [facility] on 03-30-2025 ALT [Catalytic activity/Vol] 19 U/L <35 [facility] Serum or plasma albumin destini urement (mass/volume)Ordered By: [facility] on 03-30-2025 Albumin [Mass/Vol] 3.6 g/dL 3.4-4.8 [facility] Serum or plasma albumin/glob ulin mass ratioOrdered By: [facility] on 03-30-2025 Albumin/Globulin [Mass ratio] 1.6 {ratio} 0.9-2.4 [facility] Serum or plasma alkaline josé miguel sphatase measurementOrdered By: [facility] on 03-30-2025 ALP [Catalytic activity/Vol] 47 U/L 35-104 [facility] Stress Reporton 03-30-2025 Stress Report [facility] Cardi[facility] [address] [place] [address] MR#: [id number] Acct: [id number] Name: SPENCER REDDING Rep #: [id number] : 1965 59 From: Ernesto Garvin MD Primary Care: Dr. Trevor Vieyra MD Status: A DM ISAIAS Referring Dr: Sex: F C Stress Test Report Pharmacologic myocardial perfusion stress test. 59-year-old lady with a history of chest pain, coronary disease, ischemic cardiomyopathy. Resting EKG demonstrates normal sinus rhythm with a rate of 69 bpm. Resting blood pressure is 192/60 mmHg. 0.4 mg of regadenoson was infused per usual protocol followed by rapid intravenous saline flush injection. Continuous EKG monitoring was performed. The maximum heart rate was 83 bpm which was 51% of max impacted heart rate the maximum workload was 1 metabolic equivalent. At rest there were no ST or T wave changes noted to suggest ischemia and at peak infusion nonspecific ST changes were noted which did not meet the criteria for ischemia. No clinical angina is noted. The final blood pressure was 180/52 mmHg. Myocardial perfusion protocol. 12 mCi of technetium 99m sestamibi was injected at rest. 0.4 mg of regadenoson was infused per usual protocol. At peak infusion 36 mCi of technetium 99m sestamibi was injected stress images were obtained stress and rest images were reconstructed and compared in the short axis vertical long and horizontal long axis. Gated images were also obtained. Perfusion SPECT analysis: Review of the stress images demonstrate normal uptake of tracer noted in all areas of the myocardium. The resting images similar demonstrated normal uptake of tracer noted in all areas of the myocardium. No areas of reversibility are noted to suggest ischemia and no previous infarct is noted. Gated SPECT analysis: The gated ejection fraction is 56%. Conclusion: Normal pharmacologic myocardial perfusion stress test. Preserved ejection fraction. 03/30/25 1233 Date Ernesto Garvin MD CC: Dr. Saadia Valencia MD; Dr. Padmini Wen DO; Dr. Trevor Vieyra MD; Dr. Watson Dalal MD; Dr. Sudarshan Garcia MD Date Dictated: 03/30/25 123 Date Transcribed: 03/30/25 123 Clearing Distribution Clerk: [place] Signed Normal [facility] TSH DL <= 0.005 mIU/L QnOrde red By: Saadia Valencia on 03-30-2025 TSH Qn 3.440 uIU/mL 0.300-4.200 [facility] Thyroid Stim Hormone (TSH)on 03-30-2025 TSH 3.440 uIU/mL Normal 0.300-4.200 [facility] Comment on above: Performed By: #### L 300.3900, L500.4050, L100.0100 #### [facility] [address] [place], [address] Total proteinOrdered By: Patito Valencia on 03-30-2025 Protein [Mass/Vol] 5.8 g/dL Low 5.9-8.4 [facility] 12 Lead EKGon 03-29-2025 12 Lead EKG [facility] Cardiovascular Services [address] [place] [address] 12 Lead EKG 03/29/25 1525 MR#: [id number] Acct: [id number] Name: CHRISTINACORNELIUSKira Grijalva Rep #: [id number] : 1965 59 From: Ernesto Garvin MD Attending Dr: Dr. Armando Booker MD Status : ADM IN Ordering Dr: Saadia Valencia MD Date: 03/29/25 Location: ICU Sex: F C Admitted: 03/30/25 Test Reason : CP Blood Pressure : */* mmHG Vent. Rate : 62 BPM Atrial Rate : 62 BPM P-R Int : 170 ms QRS Dur : 88 ms QT Int : 540 ms P-R-T Axes : 5 43 68 degrees QTcB Int : 548 ms Normal sinus rhythm Nonspecific ST abnormality Prolonged QT Abnormal ECG Confirmed by ERNESTO GARVIN MD ([id number]), fashion editor GALO OLGUIN ([id number]) on 04/01/2025 8:13:12 AM Referred By: CG/ER Confirmed By: ERNESOT GARVIN MD 04/01/25 0813 Date Ernesto Garvin MD CC: Dr. Saadia Valencia MD; Dr. Trevor Vieyra MD; Dr. Armando Booker MD Signed Normal [facility] 12 Lead EKG [facility] Cardiovascular Services [address] [place] [address] 12 Lead EKG 03/31/25 0950 MR#: [id number] Acct: [id number] Name: SPENCER REDDING Rep #: [id number] : 1965 59 From: Ernesto Garvin MD Attending Dr: Dr. Armando Booker MD Status : ADM IN Ordering Dr: Saadia Valencia MD Date: 03/29/25 Location: ICU Sex: F C Admitted: 03/30/25 Test Reason : Blood Pressure : */* mmHG Vent. Rate : 72 BPM Atrial Rate : 72 BPM P-R Int : 134 ms QRS Dur : 88 ms QT Int : 478 ms P-R-T Axes : -28 44 42 degrees QTcB Int : 523 ms Normal sinus rhythm Nonspecific ST and T wave abnormality Prolonged QT Abnormal ECG When compared with ECG of 31-Mar-2025 08:02, MANUAL COMPARISON REQUIRED DATA IS UNCONFIRMED Confirmed by BHARATHI DAVIS, ERNESTO ([id number]), fashion editor GALO OLGUIN ([id number]) on 04/01/2025 10:33:41 AM Referred By: Confirmed By: ERNESTO GARVIN MD 04/01/25 1033 Date Ernesto Garvin MD CC: Dr. Saadia Valencia MD; Dr. Trevor Vieyra MD; Dr. Armando Booker MD Signed Normal [facility] Basic Metabolic Profile (BMP )on 03-29-2025 BUN/CRE 3.4 RATIO Low 10-20 [facility] Comment on above: Performed By: #### L 300.3900, L500.4050, L100.0100 #### [facility] Laboratory [address] [place], [address] Calcium [Mass/Vol] 7.9 mg/dL Normal 7.6-11.0 [facility] Comment on above: Performed By: #### L 300.3900, L500.4050, L100.0100 #### [facility] [address] [place], [address] Chloride [Moles/Vol] 94 mmol/L Low 98-108 [facility] Comment on above: Performed By: #### L 300.3900, L500.4050, L100.0100 #### [facility] [address] [place], [address] CO2 [Moles/Vol] 30.5 mmol/L Normal 21.0-32.0 [facility] Comment on above: Performed By: #### L 300.3900, L500.4050, L100.0100 #### [facility] [address] [place], [address] Creatinine [Mass/Vol] 5.66 mg/dL High 0.70-1.20 [facility] Comment on above: Performed By: #### L 300.3900, L500.4050, L100.0100 #### [facility] [address] [place], [address] ECRCL 10.56 ml/min Low 50-250 [facility] Comment on above: Performed By: #### L 300.3900, L500.4050, L100.0100 #### [facility] [address] [place], [address] GAP 14 Normal 5-15 [facility] Comment on above: Performed By: #### L 300.3900, L500.4050, L100.0100 #### [facility] [address] [place], [address] GFR/1.73 sq M.predicted among non-blacks MDRD (S/P/Bld) [Vol rate/Area] 8 mL/min/{1.73_m2} Low >60 [facility] Comment on above: Result Comment: mL/m in/1.73m2 CKD-EPI Creatinine Equation (2020) Performed By: #### L 300.3900, L500.4050, L100.0100 #### [facility] [address] [place], [address] Glucose [Mass/Vol] 101 mg/dL High 70-99 [facility] Comment on above: Performed By: #### L 300.3900, L500.4050, L100.0100 #### [facility] [address] [place], [address] Potassium [Moles/Vol] 3.7 mmol/L Normal 3.3-5.1 [facility] Comment on above: Result Comment: Hemo lysis present, Results??could be affected. ?? Performed By: #### L 300.3900, L500.4050, L100.0100 #### [facility] [address] [place], [address] Sodium [Moles/Vol] 139 mmol/L Normal 133-145 [facility] Comment on above: Performed By: #### L 300.3900, L500.4050, L100.0100 #### [facility] [address] [place], [address] Urea nitrogen [Mass/Vol] 19 mg/dL Normal 4-19 [facility] Comment on above: Performed By: #### L 300.3900, L500.4050, L100.0100 #### [facility] [address] [place], [address] CBC W/Diff, Automatedon 03-11 Absolute Lymph 0.67 X10 3/uL Low 0.83-4.51 [facility] Comment on above: Performed By: #### L 300.3900, L500.4050, L100.0100 #### [facility] [address] [place], [address] Absolute Neut 2.9 X10 3/uL Normal 2.0-7.7 [facility] Comment on above: Performed By: #### L 300.3900, L500.4050, L100.0100 #### [facility] [address] [place], [address] Basophils/100 WBC (Bld) 0.7 % Normal 0-[address] [facility] [facility] Comment on above: Performed By: #### L 300.3900, L500.4050, L100.0100 #### [facility] [address] [place], [address] Eosinophils/100 WBC (Bld) 7.5 % High 0-5 [facility] Comment on above: Performed By: #### L 300.3900, L500.4050, L100.0100 #### [facility] [address] [place], [address] Erythrocyte distribution width (RBC) [Ratio] 16.9 % High 11.6-14.6 [facility] Comment on above: Performed By: #### L 300.3900, L500.4050, L100.0100 #### [facility] [address] [place], [address] Hematocrit (Bld) [Volume fraction] 27.0 % Low 37-47 [facility] Comment on above: Performed By: #### L 300.3900, L500.4050, L100.0100 #### [facility] [address] [place], [address] Hemoglobin (Bld) [Mass/Vol] 8.8 g/dL Low 12.0-15.0 [facility] Comment on above: Performed By: #### L 300.3900, L500.4050, L100.0100 #### [facility] [address] [place], [address] IG% 0.200 Normal 0.0-0.9 [facility] Comment on above: Result Comment: IG% - Immature Granulocytes (promyelocytes, myelocytes and metamyelocytes) > 1% indicates that a LEFT SHIFT is Present. Performed By: #### L 300.3900, L500.4050, L100.0100 #### [facility] [address] [place], [address] Lymphocytes/100 WBC (Bld) 15.8 % Low 19-41 [facility] Comment on above: Performed By: #### L 300.3900, L500.4050, L100.0100 #### [facility] [address] [place], [address] MCH (RBC) [Entitic mass] 29.7 pg Normal 27.0-32.0 [facility] Comment on above: Performed By: #### L 300.3900, L500.4050, L100.0100 #### [facility] [address] [place], [address] MCHC (RBC) [Mass/Vol] 32.6 g/dL Normal 32-36 [facility] Comment on above: Performed By: #### L 300.3900, L500.4050, L100.0100 #### [facility] [address] [place], [address] MCV (RBC) [Entitic vol] 91.2 fL Normal 81-99 [facility] Comment on above: Performed By: #### L 300.3900, L500.4050, L100.0100 #### [facility] [address] [place], [address] Monocytes/100 WBC (Bld) 8.0 % Normal 0-10 [facility] Comment on above: Performed By: #### L 300.3900, L500.4050, L100.0100 #### [facility] [address] [place], [address] Neutrophils/100 WBC (Bld) 67.8 % Normal 47-70 [facility] Comment on above: Performed By: #### L 300.3900, L500.4050, L100.0100 #### [facility] [address] [place], [address] Nucleated RBC (Bld) [#/Vol] 0 10*3/uL Normal 0-5 [facility] Comment on above: Performed By: #### L 300.3900, L500.4050, L100.0100 #### [facility] [address] [place], [address] Platelet mean volume (Bld) [Entitic vol] 9.2 fL Normal 6.2-12.0 [facility] Comment on above: Performed By: #### L 300.3900, L500.4050, L100.0100 #### [facility] [address] [place], [address] Platelets (Bld) [#/Vol] 220 10*3/uL Normal 150-450 [facility] Comment on above: Performed By: #### L 300.3900, L500.4050, L100.0100 #### [facility] [address] [place], [address] RBC (Bld) [#/Vol] 2.96 10*6/uL Low 4.2-5.4 [facility] Comment on above: Performed By: #### L 300.3900, L500.4050, L100.0100 #### [facility] [address] [place], [address] RDW SD 52.8 fl High 35.1-43.9 [facility] Comment on above: Performed By: #### L 300.3900, L500.4050, L100.0100 #### [facility] [address] [place], [address] WBC (Bld) [#/Vol] 4.2 10*3/uL Low 4.4-11.0 [facility] Comment on above: Performed By: #### L 300.3900, L500.4050, L100.0100 #### [facility] [address] [place], [address] CRPon 03-29-2025 C-REACTIVE PROT < 3.00 Normal 0.0-3.0 [facility] Comment on above: Order Comment: Comme nts: May add to ED labs Performed By: #### L 300.3900, L500.4050, L100.0100 #### [facility] [address] [place], [address] Chest PA and Lateralon 03-29 Chest PA and Lateral [facility] Imaging Services [address] [place] [address] Chest PA and Lateral MR#: [id number] Acct: [id number] Name: SPENCER REDDING Rep #: [id number] : 1965 F 59 From: Kenyon Miles MD PCP: Dr. Trevor Vieyra MD Status: REG ER Study: Chest PA and Lateral Date of Exam: 03/29/25 Exam# [id number] Ordering Dr: Padmini Wen DO EXAM: XR Chest, 1 View CLINICAL INDICATION: CHEST PAIN TECHNIQUE: Frontal view of the chest. COMPARISON: XR Chest dated 03/28/2025 FINDINGS: LUNGS AND PLEURAL SPACES: Bibasilar atelectasis or pneumonia. Bilateral pleural effusions. HEART: Cardiomegaly with mild congestion. MEDIASTINUM: Unremarkable. Normal mediastinal contour. BONES/JOINTS: Unremarkable. No acute fracture. SOFT TISSUES: Left axillary stents. TUBES, LINES AND DEVICES: Left-sided cardiac pacemaker. RAD/Chest PA and Lateral IMPRESSION: 1. Bibasilar atelectasis or pneumonia. 2. Cardiomegaly with mild congestion. 3. No significant change from the prior exam. 4. Bilateral pleural effusions. Reading Location: [facility] CC: Dr. Padmini Wen DO; Dr. Trevor Vieyra MD Clearing Distribution Clerk: Signed Normal [facility] Chest without Contraston Chest without Contrast [facility] Imaging Services [address] [place] [address] Chest without Contrast MR#: [id number] Acct: [id number] Name: SPENCER REDDING Rep #: [id number] : 1965 F 59 From: Kenyon Miles MD PCP: Dr. Trevor Vieyra MD Status: [facility] ER Study: Chest without Contrast Date of Exam: 03/29/25 Exam# [id number] Ordering Dr: Padmini Wen DO EXAM: CT Chest Without Intravenous Contrast CLINICAL INDICATION: CHEST PAIN, ABNORMAL CXR TECHNIQUE: Axial computed tomography images of the chest without intravenous contrast. This CT exam was performed using one or more of the following dose reduction techniques: automated exposure control, adjustment of the mA and/or kV according to patient size, and/or use of iterative reconstruction technique. COMPARISON: CTA chest 03/15/2022 FINDINGS: LUNGS AND PLEURAL SPACES: Bilateral pleural effusion with compressive atelectasis. Superimposed pneumonia can not be excluded. Lung emphysema. No mass. HEART: Cardiomegaly with small pericardial effusion. Calcified coronary arterial disease. MEDIASTINUM: Scattered mediastinal lymph nodes some of which are upper limits of normal in size and are most likely reactive lymph nodes. BONES/JOINTS: Unremarkable. No acute fracture. SOFT TISSUES: Unremarkable. VASCULATURE: See above. LYMPH NODES: See above. CT/Chest without Contrast IMPRESSION: 1. Cardiomegaly with small pericardial effusion. 2. Scattered mediastinal lymph nodes some of which are upper limits of normal in size and are most likely reactive lymph nodes. Reading Location: [facility] CC: Dr. Padmini Wen DO; Dr. Trevor Vieyra MD Clearing Distribution Clerk: Signed Normal [facility] Echo Completeon 03-29-2025 Echo Complete [facility] [address] [place] [address] Echo Complete 03/30/25 0843 MR#: [id number] Acct: [id number] Name: SPENCER REDDING Rep #: [id number] : 1965 59 From: Ernesto Garvin MD Attending Dr: Dr. Armando Booker MD Status : ADM IN Ordering Dr: Saadia Valencia MD Date: 03/29/25 Location: ICU Sex: F C Admitted: 03/30/25 Reason For Study : PERICARDIAL EFFUSION Procedure This was a 2D Doppler, Color Flow transthoracic echocardiogram. The patient was scanned supine. Exam performed in department. Left Ventricle Normal LV size. Left ventricular systolic function is normal. The left ventricular ejection fraction is 65 %. Stage 2 diastolic dysfunction. No regional wall motion abnormalities noted. Right Ventricle Normal RV size. Normal systolic function. Atria Normal left atrium. Normal right atrium. Mitral Valve There is moderate mitral annular calcification. Mild-Moderate (1-2+) eccentric mitral valve insufficiency. Tricuspid Valve Normal tricuspid valve. Mild (1+) tricuspid valve insufficiency. Pulmonary artery systolic pressure is 40 mmHg. Aortic Valve Trisinus/trileaflet aortic valve. Mild focal aortic valve calcification. Pulmonic Valve Normal pulmonic valve. Great Vessels Normal aortic root. The pulmonary artery is normal size. Inferior vena cava collapse with respiration. Pericardium/Pleural Small (<1.0 cm) pericardial effusion. MMode/2D Measurements Calculations LVIDd: 5.3 cm IVSd: 1.1 cm LVOT diam: 1.9 cm LVIDs: 3.8 cm LVPWd: 0.96 cm LVOT area: 2.8 cm2 RVDd: 3.3 cm FS: 28.0 % asc Aorta Diam: 3.4 cm LAV(MOD-bp): 78.9 ml LVAd ap4: 31.5 cm2 LAV(MOD-bp) Indexed: 43.6 ml/m2 LVLd ap4: 8.0 cm LAV(MOD-sp2): 66.0 ml EDV(MOD-sp4): 100.2 ml LAV(MOD-sp4): 84.1 ml EDV(sp4-el): 105.8 ml LVAs ap4: 16.7 cm2 LVLs ap4: 6.5 cm ESV(MOD-sp4): 36.3 ml ESV(sp4-el): 36.3 ml EF(MOD-sp4): 63.8 % EF(sp4-el): 65.7 % LVAd ap2: 31.3 cm2 SV(MOD-sp4): 63.9 ml SV(MOD-sp2): 57.9 ml LVLd ap2: 8.4 cm SI(MOD-sp4): 35.3 ml/m2 SI(MOD-sp2): 32.0 ml/m2 EDV(MOD-sp2): 98.9 ml EDV(sp2-el): 99.4 ml LVAs ap2: 18.3 cm2 LVLs ap2: 7.0 cm ESV(MOD-sp2): 41.0 ml ESV(sp2-el): 40.3 ml EF(MOD-sp2): 58.5 % SV(sp4-el): 69.5 ml Ao sinus diam: 2.[address] Junction: 2.0 cm LA dimension(2D): 4.8 cm LA A4 area: 25.2 cm2 RA A4 area: 10.7 cm2 TAPSE: 1.6 cm Time Measurements MV dec time: 0.13 sec Doppler Measurements Calculations MV E max nicolasa: 151.8 cm/sec Lat Peak E' Nicolasa: 10.6 cm/sec Med Peak E' Nicolasa: 9.3 cm/sec MV A max nicolasa: 128.7 cm/sec E/E' lat: 14.3 E/E' med: 16.3 MV E/A: 1.2 MV V2 max: 159.4 cm/sec MV dec slope: 1130 cm/sec2 Ao V2 max: 215.7 cm/sec MV max P.2 mmHg Ao max P.6 mmHg MV V2 mean: 109.3 cm/sec Ao V2 mean: 141.3 cm/sec MV mean P.3 mmHg Ao mean P.2 mmHg MV V2 VTI: 48.4 cm Ao V2 VTI: 51.2 cm MVA(VTI): 1.9 cm2 AV (velocity ratio): 0.66 LORY(I,D): 1.8 cm2 LORY(V,D): 1.8 cm2 LV V1 max: 137.6 cm/sec SV(LVOT): 93.7 ml PA V2 max: 130.4 cm/sec LV V1 max P.6 mmHg LV V1 mean P.0 mmHg LV V1 mean: 93.8 cm/sec LV V1 VTI: 33.7 cm PI end-d nicolasa: 165.1 cm/sec TR max nicolasa: 297.5 cm/sec TR max P.4 mmHg ECHO/Echo Complete Interpretation Summary Normal LV size. Left ventricular systolic function is normal. The left ventricular ejection fraction is 65 %. Stage 2 diastolic dysfunction. Pulmonary artery systolic pressure is 40 mmHg. Small (<1.0 cm) pericardial effusion. Ordering Physician: Saadia Valencia Performed By: Jane Arnold RDCS 04/01/25 1419 Date Ernesto Garvin MD CC: Dr. Saadia Valencia MD; Dr. Trevor Vieyra MD; Dr. Armando Booker MD Date Dictated: 03/30/25 0843 Date Transcribed: 03/30/25 1105 Clearing Distribution Clerk: Signed Normal [facility] Emergency Department Summary on 03-29-2025 Emergency Department Summary [facility] Medical Records Department [address] [place] [address] Emergency Department Summary 03/29/25 MR#: [id number] Acct: [id number] Name: SPENCER REDDING Rep #: [id number] : 1965 59 From: Padmini Wen DO PCP: Dr. Trevor Vieyra MD Status:ADM ISAIAS Location: [address] History of Present Illness Chief Complaint: Chest Pain Informant: patient Narrative Narrative: Patient is a 59 year old female with history of end-stage renal disease secondary to bilateral nephrectomy for polycystic kidney disease on hemodialysis ( M,W,F), coronary artery disease, history of torsades de point and ICD placement in 2019 as well as atrial fibrillation and history of DVT (on Coumadin). She is presenting today with recurrent episode of chest pain. Patient states that over the past few weeks has not been feeling right and they have been trying to manage her blood pressure. She has had blood pressures over 200. She is recently started on telmisartan, digoxin and carvedilol. She was seen in the ER yesterday for chest pressure as well and ultimately discharged home. She notes while at dialysis today her blood pressure was elevated and she started having chest pain. She was given nitroglycerin as well as clonidine 0.1 mg. She had dialysis for 2 hours and 10 minutes no sent to the ER for further evaluation. She states she has also been having ongoing cough. She states she feels short of breath and has to cough to clear it. She notes that she is actually under her dry weight. She denies any fever or chills. The pressure is on the left side of her chest. While in the ER patient did also have an episode of a burning chest pain that felt different than her other chest pains. Nursing states this correlated for about a 10 beat run of V. tach. [facility] Medical History Polycystic kidney disease Sudden cardiac Hypertriglyceridemia Hyperlipidemia History of torsades de pointes Atherosclerosis of coronary artery of [place] heart without angina pectoris Syncope and collapse Ventricular fibrillation Ischemic cardiomyopathy ESRD (end stage renal disease) on dialysis Nonsustained ventricular tachycardia History of recurrent miscarriages, not currently History of DVT (deep vein thrombosis) Congenital polycystic kidney disease History of allergic rhinitis Obesity Benign essential hypertension Home Medications ???Medication ???Instructions ???Recorded ???Last Taken ???Type sertraline 50 mg tablet 75 mg PO QHS depression 01/19/17 0 03/15/23 History cholecalciferol (vitamin D3) 25 1,000 unit PO QDAY 10/24/17 History mcg (1,000 unit) tablet sevelamer carbonate 800 mg tablet 4,000 mg PO TID 30 days #90 tabs 06/11/21 03/15/23 History calcium carbonate (Tums) 400 mg PO BID 03/30/22 03/15/23 Hi story nitroglycerin 0.4 mg sublingual 0.4 mg sublingual Q5M PRN Chest 03/15/23 Rx tablet Pain #25 tabs ipratropium bromide 21 mcg (0.03 2 spray intranasal DAILY 05/10/23 Unknown History %) nasal spray atorvastatin 10 mg tablet 10 mg PO DAILY #30 tabs 10/11/24 U nknown Rx levothyroxine 25 mcg tablet 25 mcg PO QDAY 10/11/24 Unknown Hi story vitamin B complex-vitamin C-folic 1 tab PO QDAY 10/11/24 Unknown Hi story acid 0.8 mg tablet (Rani-Yahir) warfarin 2 mg tablet 9 mg PO SUTUTHSA 10/11/24 Unknown History warfarin 3 mg tablet 8 mg PO MOWEFR 10/11/24 Unknown Hi story zolpidem 10 mg tablet 10 mg PO QHS PRN insomnia 10/11/24 Unknown History digoxin 125 mcg (0.125 mg) tablet 125 mcg PO QODAY #30 tabs 5 Unknown Rx carvedilol 6.25 mg tablet 6.25 mg PO BID blood pressure 03/11 04/04 Unknown History telmisartan 40 mg tablet 40 mg PO BID blood pressure Unknown History Allergy/AdvReac Type Severity Reaction Status Date / Time amoxicillin Allergy Rash Verified 03/29/25 15:14 doxercalciferol (From Allergy Hives Verified 03/29/25 15:14 Hectorol) etodolac Allergy Rash Verified 03/29/25 15:14 Penicillins (PCN) Allergy Rash Verified 03/29/25 15:14 sulfamethoxazole (From Allergy Rash Verified 03/29/25 15:14 Bactrim) tramadol Allergy Rash Verified 03/29/25 15:14 trimethoprim (From Bactrim) Allergy Rash Verified 03/29/25 15:14 strawberry AdvReac Vomiting Verified 03/29/25 15:14 Family History Father Hypertension Kidney disease Mother Diabetes Family History no significant family his Surgical History Hx of kidney removal History of implantable cardiac defibrillator (ICD) (11/22/19) History of coronary artery stent placement (04/22/16) fistulogram History of thyroid surgery Surgical History no surgical (more content not included)... Normal [facility] Erythrocyte Sed Rateon 03-29 SED RATE 6 mm/hr Normal 0-30 [facility] Comment on above: Performed By: #### L 300.3900, L500.4050, L100.0100 #### [facility] [address], [address] H AND P Exam - Hospitaliston 03-29-2025 H&P Exam - Hospitalist [facility] Medical Records Department [address] [place] [address] H P Exam - Hospitalist 03/29/251947 MR#: [id number] Acct: [id number] Name: SPENCER REDDING Agustin Rep #: [id number] : 1965 59 From: Saadia Valencia MD PCP: Dr. Trevor Vieyra MD Status:ADM ISAIAS Location: [place] [address] HPI - General General Date of Admission: 03/29/25 Date of Service: 03/29/25 Chief Complaint: Chest pain, Dyspnea, elevated BP. HPI Narrative The patient is a 59 y/o F w/ PMHx: Polycystic kidney disease status post bilateral nephrectomies ESRD on HD M/W/F, Chronic normocytic anemia/AOCD, Orthostatic hypotension, CAD, PAF, history torsades/VT, Hypothyroidism, Obesity, HTN, HLD, Anxiety and Depression, recent ED evaluation 03/28/2025 secondary to chest pressure occurring during dialysis and intermittently in the last several weeks lasting approximately an hour in the substernal region described as mild to moderate usually occurring dialysis with associated nausea as well as dyspnea but no emesis nor any diaphoresis with no radiation of the chest discomfort with the ED evaluation at that time with indeterminate cardiac enzymes felt stable likely secondary to underlying renal disease status post bilateral nephrectomy with blood pressure labile with plan for discharge to home with follow-up with nephrology and cardiology as they are working on a regimen to improve her blood pressure control with also unremarkable chest x-ray and EKG with no acute evidence of ischemia now presenting again to the [facility] ED on 03/29/2025 with ongoing dyspnea in addition to a nonproductive cough reporting that she is actually at her dry weight with persistent pressure now on the left side of her chest with also an episode of burning sensation in the ED with at that time incidentally noted 10 beat run of V. tach with elevated persistent blood pressures despite recently initiated regimen of telmisartan, digoxin and Coreg prompting repeat ED evaluation. Workup in the ED included T98, heart rate 64, BP 174/61, respiratory rate 16, 94% on room air with most recent repeat vitals T98.4, heart rate 65, BP 197/65, respiratory rate 20, 95% room air, CBC with WBC 4.2, hemoglobin 8.8, MCV 91.2, platelet 220 with lymphopenia, coags with INR 2.1, BMP with chloride 94, BUN/creatinine 19/5.66, GFR 8, glucose 101, magnesium 2.0, troponin initial 62 with repeat delta 2- hour pending, chest x-ray with basilar atelectasis, cardiomegaly with mild congestion, bilateral pleural effusions with no significant change since prior evaluation, CT chest with cardiomegaly with small pericardial effusion, scattered mediastinal lymph nodes likely reactive, EKG with SR with mildly prolonged QTC, T wave morphology change of unclear significance with no acute evidence of ischemia similar to prior. In the ED patient ministered hydralazine 10 mg IV x 1. PFSH Medical History Polycystic kidney disease Sudden cardiac Hypertriglyceridemia Hyperlipidemia History of torsades de pointes Atherosclerosis of coronary artery of [place] heart without angina pectoris Syncope and collapse Ventricular fibrillation Ischemic cardiomyopathy ESRD (end stage renal disease) on dialysis Nonsustained ventricular tachycardia History of recurrent miscarriages, not currently History of DVT (deep vein thrombosis) Congenital polycystic kidney disease History of allergic rhinitis Obesity Benign essential hypertension Home Medications ???Medication ???Instructions ???Recorded ???Last Taken ???Type sertraline 50 mg tablet 75 mg PO QHS depression 01/19/17 0 03/15/23 History cholecalciferol (vitamin D3) 25 1,000 unit PO QDAY 10/24/17 History mcg (1,000 unit) tablet sevelamer carbonate 800 mg tablet 4,000 mg PO TID 30 days #90 tabs 06/11/21 03/15/23 History calcium carbonate (Tums) 400 mg PO BID 03/30/22 03/15/23 Hi story nitroglycerin 0.4 mg sublingual 0.4 mg sublingual Q5M PRN Chest 03/15/23 Rx tablet Pain #25 tabs ipratropium bromide 21 mcg (0.03 2 spray intranasal DAILY 05/10/23 Unknown History %) nasal spray atorvastatin 10 mg tablet 10 mg PO DAILY #30 tabs 10/11/24 U nknown Rx levothyroxine 25 mcg tablet 25 mcg PO QDAY 10/11/24 Unknown Hi story vitamin B complex-vitamin C-folic 1 tab PO QDAY 10/11/24 Unknown Hi story acid 0.8 mg tablet (Rani-Yahir) warfarin 2 mg tablet 9 mg PO SUTUTHSA 10/11/24 Unknown History warfarin 3 mg tablet 8 mg PO MOWEFR 10/11/24 Unknown Hi story zolpidem 10 mg tablet 10 mg PO QHS PRN insomnia 10/11/24 Unknown History digoxin 125 mcg (0.125 mg) tablet 125 mcg PO QODAY #30 tabs 5 Unknown Rx carvedilol 6.25 mg tablet 6.25 mg PO BID blood pressure 09/1 9/25 Unknown History telmisartan 40 mg tablet 40 mg PO BI (more content not included)... Normal [facility] L501.4021on 03-29-2025 Trop T High Sen 62 ng/L Invalid Interpretation Code <=14 [facility] Comment on above: Result Comment: Crit ical Result(s) Called to: Oksana APODACA (ER) by: Kristy??Results read back by same. Performed By: #### L 300.3900, L500.4050, L100.0100 #### [facility] [address] [place], [address] Magnesiumon 03-29-2025 Magnesium [Mass/Vol] 2.0 mg/dL Normal 1.5-2.2 [facility] Comment on above: Performed By: #### L 300.3900 #### [facility] [address] [place], [address] Prothrombin Time w/INRon INR Coag (PPP) [Relative time] 2.1 {INR} Normal [facility] Comment on above: Performed By: #### L 300.3900, L500.4050, L100.0100 #### [facility] [address] [place], [address] PT Coag (PPP) [Time] 24.1 s High 11.7-14.9 [facility] Comment on above: Performed By: #### L 300.3900, L500.4050, L100.0100 #### [facility] [address] [place], [address] Troponin T HS 2 HRon 025 Trop T High Sen 63 ng/L Invalid Interpretation Code <=14 [facility] Comment on above: Result Comment: Crit ical Result(s) Called at: 1947 by:??TERRY ROBERTS Results read back by same. Performed By: #### L 300.3900, L500.4050, L100.0100 #### [facility] [address] [place], [address] Troponin T HS 4 HRon 025 Trop T High Sen 66 ng/L Invalid Interpretation Code <=14 [facility] Comment on above: Result Comment: Crit icaagustin Result(s) Called at: 2144 by:??TERRY DIXON TO IRMA ARIZA Results read back by same. Performed By: #### L 300.3900 #### [facility] [address] [place], [address] Troponin T.cardiac [Mass/vol ume] in Serum or Plasma by High sensitivity methodOrdered By: Padmini Wen on 03-29-2025 Troponin T.cardiac High sensitivity method [Mass/Vol] 66 ng/L Critically high <14 [facility] Comment on above: Critical Result(s) C alled at: 2144 by: TERRY ARIZA Results read back by same. Troponin T.cardiac High sensitivity method [Mass/Vol] 63 ng/L Critically high <14 [facility] Comment on above: Critical Result(s) C alled at: 1947 by: TERRY ROBERTS Results read back by same. Troponin T.cardiac High sensitivity method [Mass/Vol] 62 ng/L Critically high <14 [facility] Comment on above: Critical Result(s) C alled to: Oksana APODACA (ER) by: Kristy Results read back by same. 12 Lead EKGon 03-28-2025 12 Lead EKG [facility] Cardiovascular Services [address] [place] [address] 12 Lead EKG 03/28/25 1659 MR#: [id number] Acct: [id number] Name: SPENCER REDDING Rep #: [id number] : 1965 59 From: Ernesto Garvin MD Attending Dr: Status: DEP ER Ordering Dr: Yaniv Aguero MD Date: 03/28/25 Location: ED Sex: F C Admitted: Test Reason : CP Blood Pressure : */* mmHG Vent. Rate : 71 BPM Atrial Rate : 71 BPM P-R Int : 176 ms QRS Dur : 84 ms QT Int : 472 ms P-R-T Axes : 1 33 79 degrees QTcB Int : 512 ms Normal sinus rhythm Nonspecific ST and T wave abnormality Prolonged QT Abnormal ECG Confirmed by ERNESTO GARVIN MD ([id number]), fashion editor GALO OLGUIN ([id number]) on 03/29/2025 10:48:03 AM Referred By: LICO Confirmed By: ERNESTO GARVIN MD 03/29/25 1048 Date Ernesto Garvin MD CC: Dr. Trevor Vieyra MD; Dr. Yaniv Aguero MD Signed Normal [facility] Absolute lymphocyte countOrd ered By: Yaniv Aguero on 03-28-2025 Lymphocytes Auto (Unsp spec) [#/Vol] 0.79 10*3/uL Low 0.83-4.51 [facility] Absolute neutrophil countOrd ered By: Yaniv Aguero on 03-28-2025 Neutrophils (Bld) [#/Vol] 3.2 10*3/uL 2.0-7.7 [facility] Anion gap in Serum or Plasma Ordered By: Yaniv Aguero on 03-28-2025 Anion gap [Moles/Vol] 16 mmol/L High 5-15 [facility] Automated lymphocyte count a s percentage of total leukocytesOrdered By: Yaniv Aguero on 03-28-2025 Lymphocytes/100 WBC Auto (Unsp spec) 16.3 % Low 19-41 [facility] BUN/creatinine ratioOrdered By: Yaniv Aguero on 03-28-2025 Urea nitrogen/Creatinine [Mass ratio] 3.6 mg/mg Low 10-20 [facility] Basic Metabolic Profile (BMP )on 03-28-2025 BUN/CRE 3.6 RATIO Low - [facility] Comment on above: Performed By: #### L 300.3900, L500.4050, L100.0100 #### [facility] Laboratory [address] [place], [address] Calcium [Mass/Vol] 8.7 mg/dL Normal 7.6-11.0 [facility] Comment on above: Performed By: #### L 300.3900, L500.4050, L100.0100 #### [facility] [address] [place], [address] Chloride [Moles/Vol] 96 mmol/L Low 98-108 [facility] Comment on above: Performed By: #### L 300.3900, L500.4050, L100.0100 #### [facility] [address] [place], [address] CO2 [Moles/Vol] 28.8 mmol/L Normal 21.0-32.0 [facility] Comment on above: Performed By: #### L 300.3900, L500.4050, L100.0100 #### [facility] [address] [place], [address] Creatinine [Mass/Vol] 7.43 mg/dL Invalid Interpretation Code 0.70-1.20 [facility] Comment on above: Performed By: #### L 300.3900, L500.4050, L100.0100 #### [facility] [address] [place], [address] GAP 16 High 5-15 [facility] Comment on above: Performed By: #### L 300.3900, L500.4050, L100.0100 #### [facility] [address] [place], [address] GFR/1.73 sq M.predicted among non-blacks MDRD (S/P/Bld) [Vol rate/Area] 6 mL/min/{1.73_m2} Low >60 [facility] Comment on above: Result Comment: mL/m in/1.73m2 CKD-EPI Creatinine Equation (2020) Performed By: #### L 300.3900, L500.4050, L100.0100 #### [facility] [address] [place], [address] Glucose [Mass/Vol] 115 mg/dL High 70-99 [facility] Comment on above: Performed By: #### L 300.3900, L500.4050, L100.0100 #### [facility] [address] [place], [address] Potassium [Moles/Vol] 4.0 mmol/L Normal 3.3-5.1 [facility] Comment on above: Performed By: #### L 300.3900, L500.4050, L100.0100 #### [facility] [address] [place], [address] Sodium [Moles/Vol] 140 mmol/L Normal 133-145 [facility] Comment on above: Performed By: #### L 300.3900, L500.4050, L100.0100 #### [facility] [address] [place], [address] Urea nitrogen [Mass/Vol] 27 mg/dL High 4-19 [facility] Comment on above: Performed By: #### L 300.3900, L500.4050, L100.0100 #### [facility] [address] [place], [address] Basophil percentageOrdered B y: Yaniv Aguero on 03-28-2025 Basophils/100 WBC (Bld) 0.4 % 0-[address] [facility] CBC W/Diff, Automatedon 03-11 Absolute Lymph 0.79 X10 3/uL Low 0.83-4.51 [facility] Comment on above: Performed By: #### L 300.3900, L500.4050, L100.0100 #### [facility] [address] [place], [address] Absolute Neut 3.2 X10 3/uL Normal 2.0-7.7 [facility] Comment on above: Performed By: #### L 300.3900, L500.4050, L100.0100 #### [facility] [address] [place], [address] Basophils/100 WBC (Bld) 0.4 % Normal 0-[address] [facility] Comment on above: Performed By: #### L 300.3900, L500.4050, L100.0100 #### [facility] [address] [place], [address] Eosinophils/100 WBC (Bld) 8.7 % High 0-5 [facility] Comment on above: Performed By: #### L 300.3900, L500.4050, L100.0100 #### [facility] [address] [place], [address] Erythrocyte distribution width (RBC) [Ratio] 16.6 % High 11.6-14.6 [facility] Comment on above: Performed By: #### L 300.3900, L500.4050, L100.0100 #### [facility] [address] [place], [address] Hematocrit (Bld) [Volume fraction] 28.5 % Low 37-47 [facility] Comment on above: Performed By: #### L 300.3900, L500.4050, L100.0100 #### [facility] [address] [place], [address] Hemoglobin (Bld) [Mass/Vol] 9.1 g/dL Low 12.0-15.0 [facility] Comment on above: Performed By: #### L 300.3900, L500.4050, L100.0100 #### [facility] [address] [place], [address] IG% 0.200 Normal 0.0-0.9 [facility] Comment on above: Result Comment: IG% - Immature Granulocytes (promyelocytes, myelocytes and metamyelocytes) > 1% indicates that a LEFT SHIFT is Present. Performed By: #### L 300.3900, L500.4050, L100.0100 #### [facility] [address] [place], [address] Lymphocytes/100 WBC (Bld) 16.3 % Low 19-41 [facility] Comment on above: Performed By: #### L 300.3900, L500.4050, L100.0100 #### [facility] [address] [place], [address] MCH (RBC) [Entitic mass] 29.3 pg Normal 27.0-32.0 [facility] Comment on above: Performed By: #### L 300.3900, L500.4050, L100.0100 #### [facility] [address] [place], [address] MCHC (RBC) [Mass/Vol] 31.9 g/dL Low 32-36 [facility] Comment on above: Performed By: #### L 300.3900, L500.4050, L100.0100 #### [facility] [address] [place], [address] MCV (RBC) [Entitic vol] 91.6 fL Normal 81-[address] [facility] Comment on above: Performed By: #### L 300.3900, L500.4050, L100.0100 #### [facility] [address] [place], [address] Monocytes/100 WBC (Bld) 7.6 % Normal 0-[address] [facility] Comment on above: Performed By: #### L 300.3900, L500.4050, L100.0100 #### [facility] [address] [place], [address] Neutrophils/100 WBC (Bld) 66.8 % Normal 47-70 [facility] Comment on above: Performed By: #### L 300.3900, L500.4050, L100.0100 #### [facility] [address] [place], [address] Nucleated RBC (Bld) [#/Vol] 0.6 10*3/uL Normal 0-5 [facility] Comment on above: Performed By: #### L 300.3900, L500.4050, L100.0100 #### [facility] [address] [place], [address] Platelet mean volume (Bld) [Entitic vol] 9.4 fL Normal 6.2-12.0 [facility] Comment on above: Performed By: #### L 300.3900, L500.4050, L100.0100 #### [facility] [address] [place], [address] Platelets (Bld) [#/Vol] 266 10*3/uL Normal 150-450 [facility] Comment on above: Performed By: #### L 300.3900, L500.4050, L100.0100 #### [facility] [address] [place], [address] RBC (Bld) [#/Vol] 3.11 10*6/uL Low 4.2-5.4 [facility] Comment on above: Performed By: #### L 300.3900, L500.4050, L100.0100 #### [facility] [address] [place], [address] RDW SD 52.5 fl High 35.1-43.9 [facility] Comment on above: Performed By: #### L 300.3900, L500.4050, L100.0100 #### [facility] [address] [place], [address] WBC (Bld) [#/Vol] 4.8 10*3/uL Normal 4.4-11.0 [facility] Comment on above: Performed By: #### L 300.3900, L500.4050, L100.0100 #### [facility] [address] [place], [address] Carbon dioxide, total [Moles /volume] in Central venous bloodOrdered By: Yaniv Aguero on 03-28-2025 CO2 [Moles/Vol] 28.8 mmol/L 21.0-32.0 [facility] Chest PA and Lateralon 03-28 Chest PA and Lateral [facility] Imaging Services [address] [place], [place] [address] Chest PA and Lateral MR#: [id number] Acct: [id number] Name: SPENCER REDDING Rep #: [id number] : 1965 F 59 From: Honorio Magallon MD PCP: Dr. Trevor Vieyra MD Status: [facility] ER Study: Chest PA and Lateral Date of Exam: 03/28/25 Exam# [id number] Ordering Dr: Yaniv Aguero MD PROCEDURE: CHEST PA AND LATERAL 03/28/2025 REASON FOR EXAM: CHEST PRESSURE, DYSPNEA AND ELEVATED BLOOD PRESSUR TECHNIQUE: Procedure Code: RADCXR Modality: DX Procedure: CHEST PA AND LATERAL COMPARISON: 09/17/2024 FINDINGS: Devices: Anterior left chest wall subcutaneous ICD. Lungs/Pleura: Small bibasilar pleural effusions and/or atelectasis. No pneumothorax. No focal airspace consolidation. Heart/Mediastinum: Mildly enlarged. Aortic arch calcification. Bones/Soft tissues: Degenerative changes of the spine. Left axillary vascular stent. RAD/Chest PA and Lateral IMPRESSION: Mild cardiomegaly. Small bibasilar pleural effusions/atelectasis. Reading Location: [facility] CC: Dr. Trevor Vieyra MD; Dr. Yaniv Aguero MD Clearing Distribution Clerk: Signed Normal [facility] Chloride assayOrdered By: Joe Aguero on 03-28-2025 Chloride [Moles/Vol] 96 mmol/L Low 98-108 [facility] Electrocardiogram reportOrde red By: Ernesto Garvin on 03-28-2025 EKG study [facility] Cardiovascular Services [address] [place] [address] 12 Lead EKG 03/28/25 1659 MR#: [id number] Acct: [id number] Name: SPENCER REDDING Rep #:[id number] : 1965 59 From: Ernesto Garvin MD Attending Dr: Status: DEP E R Ordering Dr: Yaniv Aguero MD Date: 03/28 Location: ED Sex: F C Admitted: Test Reason : CP Blood Pressure : */* mmHG Vent. Rate : 71 BPM Atrial Rate : 71 BPM P-R Int : 176 ms QRS Dur : 84 ms QT Int : 472 ms P-R-T Axes : 1 33 79 degrees QTcB Int : 512 ms Normal sinus rhythm Nonspecific ST and T wave abnormality Prolonged QT Abnormal ECG Confirmed by ERNESTO GARVIN MD ([id number]), fashion editor GALO OLGUIN ([id number]) on 03/29/2025 10:48:03 AM Referred By: LICO Confirmed By: ERNESTO GARVIN MD 03/29/25 1048 Date _ Ernesto Garvin MD CC: Dr. Trevor Vieyra MD; Dr. Yaniv Aguero MD ~ Signed [facility] Work Phone: Emergency Department Summary on 03-28-2025 Emergency Department Summary [facility] Medical Records Department [address] [place] [address] Emergency Department Summary 03/28/25 MR#: [id number] Acct: [id number] Name: SPENCER REDDING Rep #: [id number] : 1965 59 From: Yaniv Aguero MD PCP: Dr. Trevor Vieyra MD Status:REG ER Location: ED HPI History of Present Illness Chief Complaint: Chest Pain Detail of Chief Complaint: Chest pressure and elevated blood pressure. Informant: patient Onset/Context/Timing Onset: Today and Yesterday Activity at onset: sudden and rest (Today occurred during dialysis.) Timing: Continuous (Today) and Intermittent (Lasted approximate hour yesterday) Quality: Positive for Pressure Location: Substernal Current Severity: Mild Maximum Severity: Moderate Worsened By: - (Usually occurs during dialysis.) Relieved By: Nothing Associated Symptoms: Positive for Nausea and Dyspnea; Negative for Vomiting, Diaphoresis, Cough, Fever, Lightheadedness, Acid Reflux or Palpitations Narrative Narrative: Patient is a 59-year-old woman. She has history of end-stage renal dialysis status post bilateral nephrectomy due to polycystic kidney disease. She is on hemodialysis Tuesday, and Tuesday. She has a history of paroxysmal atrial fibrillation, DVT, ICD, coronary artery disease with stent placement many years ago. She also has history of torsades de point and benign essential hypertension. Patient presents because of chest discomfort. This occurred during dialysis. She still having some discomfort. She denies radiation of the pain. She has slight nausea and shortness of breath. She denies abdominal pain, vomiting or diarrhea. She makes no urine since she is status post nephrectomy bilaterally. She denies history of trauma. She denies headache, visual, ocular auditory symptoms. She has no upper respiratory tract infectious symptoms. She denies fever or chills. Prior Similar Symptoms: Yes Recent Illness/Hospitalization : No CVD Risk Factors: Positive for Hypertension and Hypercholesterolemia PE Risk Factors: Positive for Prior DVT or PE and OCP + Smoking + >/=35; Negative for Recent Travel/Surgery, Recent Immobilization or Cancer TAD Risk Factors: Positive for Hypertension; Negative for Marfan's Syndrome or Family History [facility] Medical History Polycystic kidney disease Sudden cardiac Hypertriglyceridemia Hyperlipidemia History of torsades de pointes Atherosclerosis of coronary artery of [place] heart without angina pectoris Syncope and collapse [...] PO QHS depression 01/19/17 0 03/15/23 History cholecalciferol (vitamin D3) 25 1,000 unit PO QDAY 10/24/17 History mcg (1,000 unit) tablet sevelamer carbonate 800 mg tablet 800 mg PO TID 30 days #90 tabs 03/15/23 History calcium carbonate (Tums) 400 mg PO BID 03/30/22 03/15/23 Hi story nitroglycerin 0.4 mg sublingual 0.4 mg sublingual Q5M PRN Chest 03/15/23 Rx tablet Pain #25 tabs ipratropium bromide 21 mcg (0.03 2 spray intranasal BID 05/10/23 Un known History %) nasal spray atorvastatin 10 mg tablet 10 mg PO DAILY #30 tabs 10/11/24 U nknown Rx levothyroxine 25 mcg tablet 25 mcg PO QDAY 10/11/24 Unknown Hi story midodrine 10 mg tablet 10 mg PO DAILY 10/11/24 Unknown Hi story vitamin B complex-vitamin C-folic 1 tab PO QDAY 10/11/24 Unknown Hi story acid 0.8 mg tablet (Rani-Yahir) warfarin 2 mg tablet 2 mg PO QDAY 10/11/24 Unknown Hist ory warfarin 3 mg tablet 3 mg PO 3XW 10/11/24 Unknown Histo ry warfarin 5 mg tablet 5 mg PO QDAY 10/11/24 Unknown Hist ory zolpidem 10 mg tablet 10 mg PO QHS PRN insomnia 10/11/24 Unknown History digoxin 125 mcg (0.125 mg) tablet 125 mcg PO QODAY #30 tabs 5 Unknown Rx Allergy/AdvReac Type Severity Reaction Status Date / Time amoxicillin Allergy Rash Verified 03/28/25 16:50 doxercalciferol (From Allergy Hives Verified 03/28/25 16:50 Hectorol) etodolac Allergy Rash Verified 03/28/25 16:50 Penicillins (PCN) Allergy Rash Verified 03/28/25 16:50 sulfamethoxazole (From Allergy Rash Verified 03/28/25 16:50 Bactrim) tramadol Allergy Rash Verified 03/28/25 16:50 trimethoprim (From Bactrim) Allergy Rash Verified 03/28/25 16:50 strawberry AdvReac Vomiting Verified 03/28/25 16:50 Family History (Reviewed 03/28/25 @ 20 (more content not included)... Normal [facility] Eosinophil percentageOrdered By: Yaniv Aguero on 03-28-2025 Eosinophils/100 WBC (Bld) 8.7 % High 0-5 [facility] Erythrocyte distribution wid th ratioOrdered By: Yanivtenisha Aguero on 03-28-2025 Erythrocyte distribution width (RBC) [Ratio] 16.6 % High 11.6-14.6 [facility] Erythrocyte distribution wid th standard deviationOrdered By: Yanivtenisha Aguero on 03-28-2025 Erythrocyte distribution width (RBC) [Ratio] 52.5 fl High 35.1-43.9 [facility] Glomerular filtration rate ( GFR) estimation/1.73 sq m using serum, plasma, or whole bOrdered By: Yanivtenisha Aguero on 03-28-2025 GFR/1.73 sq M.predicted among non-blacks MDRD (S/P/Bld) [Vol rate/Area] 6 mL/min/{1.73_m2} Low >60 [facility] Comment on above: mL/min/1.73m2 CKD-EP I Creatinine Equation (2020) Hematocrit Auto (Bld) [Volum e fraction]Ordered By: Yaniv Aguero on 03-28-2025 Hematocrit (Bld) [Volume fraction] 28.5 % Low 37-47 [facility] Hemoglobin measurementOrdere d By: Yaniv Aguero on 03-28-2025 Hemoglobin (Bld) [Mass/Vol] 9.1 g/dL Low 12.0-15.0 [facility] Immature granulocytes/100 WB C Auto (Bld)Ordered By: Yanivtenisha Aguero on 03-28-2025 Immature granulocytes/100 WBC (Bld) 0.200 % 0.0-0.9 [facility] Comment on above: IG% - Immature Granu locytes (promyelocytes, myelocytes and metamyelocytes) > 1% indicates that a LEFT SHIFT is Present. L501.4021on 03-28-2025 Trop T High Sen 63 ng/L Invalid Interpretation Code <=14 [facility] Comment on above: Result Comment: Crit ical Result(s) Called at: 1759 by:??TERRY DIXON TO LINUS BARGER Results read back by same. Performed By: #### L 300.3900, L500.4050, L100.0100 #### [facility] Laboratory [address] [place], [address] MCV (mean corpuscular volume ) determinationOrdered By: Yaniv Aguero on 03-28-2025 MCV (RBC) [Entitic vol] 91.6 fL 81-[address] [facility] Mean corpuscular hemoglobin (MCH) determinationOrdered By: [facility] on 03-28-2025 MCH (RBC) [Entitic mass] 29.3 pg 27.0-32.0 [facility] Mean corpuscular hemoglobin concentration (MCHC) determinationOrdered By: [facility] on 03-28-2025 MCHC (RBC) [Mass/Vol] 31.9 g/dL Low 32-36 [facility] Mean platelet volume determi nationOrdered By: [facility] on 03-28-2025 Platelet mean volume (Bld) [Entitic vol] 9.4 fL 6.2-12.0 [facility] Monocyte percentageOrdered B y: [facility] on 03-28-2025 Monocytes/100 WBC (Bld) 7.6 % 0-[address] [facility] Neutrophil percentageOrdered By: [facility] on 03-28-2025 Neutrophils/100 WBC (Bld) 66.8 % 47-70 [facility] Nucleated red blood cell per centageOrdered By: Yaniv Aguero on 03-28-2025 Nucleated RBC/100 WBC (Bld) [Ratio] 0.6 % 0-5 [facility] Platelet countOrdered By: [facility] on 03-28-2025 Platelets (Bld) [#/Vol] 266 10*3/uL 150-450 [facility] Potassium measurement (mass/ volume)Ordered By: Yaniv Aguero on 03-28-2025 Potassium (Unsp spec) [Mass/Vol] 4.0 mmol/L 3.3-5.1 [facility] RBC Auto (Bld) [#/Vol]Ordere d By: Yanivtenisha Hunto on 03-28-2025 RBC (Bld) [#/Vol] 3.11 10*6/uL Low 4.2-5.4 [facility] Serum creatinine measurement (mass/volume)Ordered By: Yanivtenisha Hunto on 03-28-2025 Creatinine [Mass/Vol] 7.43 mg/dL Critically high 0.70-1.20 [facility] Serum glucose measurement (m ass/volume)Ordered By: Yanivtenisha Hunto on 03-28-2025 Glucose [Mass/Vol] 115 mg/dL High 70-99 [facility] Serum or plasma calcium destini urement (mass/volume)Ordered By: Yaniv Aguero on 03-28-2025 Calcium [Mass/Vol] 8.7 mg/dL 7.6-11.0 [facility] Serum or plasma urea nitroge n measurement (mass/volume)Ordered By: Yaniv Aguero on 03-28-2025 Urea nitrogen [Mass/Vol] 27 mg/dL High 4-19 [facility] Sodium levelOrdered By: Yaniv Aguero on 03-28-2025 Sodium [Moles/Vol] 140 mmol/L 133-145 [facility] Troponin T HS 2 HRon 025 Trop T High Sen 64 ng/L Invalid Interpretation Code <=14 [facility] Comment on above: Result Comment: Crit ical Result(s) Called at: 2043 by: ??TERRY HILDALLO TO SHANI SPARR??Results read back by same. Performed By: #### L 300.3900, L500.4050, L100.0100 #### [facility] [address] [place], [place], [id number] Troponin T HS 4 HRon 025 Trop T High Sen 65 ng/L Invalid Interpretation Code <=14 [facility] Comment on above: Result Comment: Crit ical Result(s) Called at: 2214 by: ??TERRY LOLLO TO TYLER AGUILLON??Results read back by same. Performed By: #### L 300.3900, L500.4050, L100.0100 #### [facility] [address] [place], [address] Troponin T.cardiac [Mass/vol ume] in Serum or Plasma by High sensitivity methodOrdered By: Yainv Aguero on 03-28-2025 Troponin T.cardiac High sensitivity method [Mass/Vol] 65 ng/L Critically high <14 [facility] Comment on above: Critical Result(s) C alled at: 2215 by: TERRY AGUILLON Results read back by same. Troponin T.cardiac High sensitivity method [Mass/Vol] 64 ng/L Critically high <14 [facility] Comment on above: Critical Result(s) C alled at: 2043 by: TERRY DIXON TO SHANI KAPLAN Results read back by same. Troponin T.cardiac High sensitivity method [Mass/Vol] 63 ng/L Critically high <14 [facility] Comment on above: Critical Result(s) C alled at: 1759 by: TERRY BARGER Results read back by same. White blood cell (WBC) count Ordered By: Yaniv Aguero on 03-28-2025 WBC (Bld) [#/Vol] 4.8 10*3/uL 4.4-11.0 [facility] 36on 03-18-2025 36 Per secure chaat pt needing 1yr fu w JKS, and in office device check JKS yrly fu 07/01/[address] [facility] International normalized rat io (INR) calculationOrdered By: Trevor Vieyra on 02-19-2025 INR Coag (Bld) [Relative time] 2.6 {INR} [facility] Prothrombin Time w/INRon INR Coag (PPP) [Relative time] 2.6 {INR} Normal [facility] Comment on above: Performed By: #### L 300.3900, L500.4050, L100.0100 #### [facility] [address] [place], [address] PT Coag (PPP) [Time] 28.4 s High 11.7-14.9 [facility] Comment on above: Performed By: #### L 300.3900, L500.4050, L100.0100 #### [facility] [address] [place], [address] Prothrombin timeOrdered By: Trevor Vieyra on 02-19-2025 PT Coag (PPP) [Time] 28.4 s High 11.7-14.9 [facility] International normalized rat io (INR) calculationOrdered By: Trevor Vieyra on 01-15-2025 INR Coag (Bld) [Relative time] 2.4 {INR} [facility] Prothrombin Time w/INRon INR Coag (PPP) [Relative time] 2.4 {INR} Normal [facility] Comment on above: Performed By: #### L 300.3900, L500.4050, L100.0100 #### [facility] [address] [place], [address] PT Coag (PPP) [Time] 27.0 s High 11.7-14.9 [facility] Comment on above: Performed By: #### L 300.3900, L500.4050, L100.0100 #### [facility] [address] [place], [address] Prothrombin timeOrdered By: Trevor Vieyra on 01-15-2025 PT Coag (PPP) [Time] 27.0 s High 11.7-14.9 [facility] International normalized rat io (INR) calculationOrdered By: Trevor Vieyra on 12-29-2024 INR Coag (Bld) [Relative time] 2.7 {INR} [facility] Prothrombin Time w/INRon INR Coag (PPP) [Relative time] 2.7 {INR} Normal [facility] Comment on above: Performed By: #### L 300.3900 #### [facility] [address] [place], [address] Prothrombin timeOrdered By: Trevor Vieyra on 12-29-2024 PT Coag (PPP) [Time] 28.9 s High 11.7-14.9 [facility] Comment on above: Performed By: #### L 300.3900 #### [facility] [address] [place], [address] Prothrombin Time w/INRon INR Coag (PPP) [Relative time] 2.5 {INR} Normal [facility] Comment on above: Performed By: #### L 300.3900 #### [facility] [address] [place], [address] PT Coag (PPP) [Time] 27.3 s High 11.7-14.9 [facility] Comment on above: Performed By: #### L 300.3900 #### [facility] [place], [address] International normalized rat io (INR) calculationOrdered By: Trevor Vieyra on 11-30-2024 INR Coag (Bld) [Relative time] 2.5 {INR} [facility] Prothrombin Time w/INRon INR Coag (PPP) [Relative time] 2.5 {INR} Normal [facility] Comment on above: Performed By: #### L 300.3900 #### [facility] [place], [address] PT Coag (PPP) [Time] 27.8 s High 11.7-14.9 [facility] Comment on above: Performed By: #### L 300.3900 #### [facility] [address] [place], [address] Prothrombin timeOrdered By: Trevor Vieyra on 11-30-2024 PT Coag (PPP) [Time] 27.8 s High 11.7-14.9 [facility] Prothrombin Time w/INRon INR Coag (PPP) [Relative time] 1.9 {INR} Normal [facility] Comment on above: Performed By: #### L 300.3900 #### [facility] [address] [place], [address] PT Coag (PPP) [Time] 22.2 s High 11.7-14.9 [facility] Comment on above: Performed By: #### L 300.3900 #### [facility] [address] [place], [address] Prothrombin Time w/INRon INR Coag (PPP) [Relative time] 1.6 {INR} Normal [facility] Comment on above: Performed By: #### L 300.3900 #### [facility] [address] [place], [address] PT Coag (PPP) [Time] 19.5 s High 11.7-14.9 [facility] Comment on above: Performed By: #### L 300.3900 #### [facility] [address] [place], [address] Digoxin Levelon 10-18-2024 DIG 0.68 ng/mL Normal 0.00-2.00 [facility] Comment on above: Performed By: #### L 300.3900 #### [facility] [address] [place], [address] Digoxin [Mass/Vol]Ordered By : Christiano Tee on 10-18-2024 Digoxin Level 0.68 ng/mL 0.00-2.00 [facility] Serum or plasma digoxin destini urement (mass/volume)Ordered By: Christiano Tee on 10-18-2024 Digoxin [Mass/Vol] 0.68 ng/mL 0.00-2.00 [facility] 12 Lead [place] [facility] [place] 10-11-2024 12 Lead EKG performed by [facility] [address] [place] [address] 12 Lead EKG performed [place] [facility] 10/11/24 0958 MR#: [id number] Acct: [id number] Name: SPENCER REDDING #: [id number] : 1965 59 From: Christiano DEE Attending Dr: LEILA Kidd Status: DEP AMB Ordering Dr: Christiano Tee NP Date: 10/11/24 Location: [facility] Sex: F C Admitted: [facility]/12 Lead E[place] performed [place] [facility] ECG Report Interpretation ---Atrial Rhythm P:QRS - 1:1, Abnormal P axis, H Rate 75WITHIN NORMAL LIMITSElectronically signed on 10/17/2024 at 11:37 by Ernesto Garvin Software Version 8610 10/17/24 1140 Date Christiano DEE CC: Dr. Trevor Vieyra MD Date Dictated: 10/11/24957 Date Transcribed: 10/11/24957 Clearing Distribution Clerk: JJ Signed Normal [facility] Cardiology Visit Reporton Cardiology Visit Report [facility] [address] [place] [address] OFFICE VISIT Date of Service: 10/11/24 MR#: [id number] Acct: [id number] Name: SPENCER REDDING Rep #: [id number] : 1965 Provider: LEILA marquez Age/Sex: 59/F Location: [facility] Status: Signed HPI HPI History of Present [...] does have her ICD checked routinely through [facility]. Her INR is managed by her [...] Pulse Source NIBP Intake Visit Reasons: S/P [facility] 09/17 Manager Acquisition Required: No Is patient in pain?: No [...] dropped and she went to the floor) [facility] Medical History Polycystic kidney disease Sudden cardiac Hypertriglyceridemia Hyperlipidemia History of torsades de pointes Atherosclerosis of patel (more content not included)... Normal [facility] International normalized rat io (INR) calculationOrdered By: Trevor Vieyra on 10-11-2024 INR Coag (Bld) [Relative time] 2.0 {INR} [facility] Prothrombin Time w/INRon INR Coag (PPP) [Relative time] 2.0 {INR} Normal [facility] Comment on above: Performed By: #### L 300.3900 #### [facility] [address] [place], [address] PT Coag (PPP) [Time] 23.1 s High 11.7-14.9 [facility] Comment on above: Performed By: #### L 300.3900 #### [facility] [address] [place], [address] Prothrombin timeOrdered By: Trevor Vieyra on 10-11-2024 PT Coag (PPP) [Time] 23.1 s High 11.7-14.9 [facility] 12 Lead EKGon 09-17-2024 12 Lead EKG [facility] Cardiovascular Services [address] [place] [address] 12 Lead EKG 09/17/24 1611 MR#: [id number] Acct: [id number] Name: SPENCER REDDING Rep #: [id number] : 1965 59 From: Jeremy Vega MD [...] injury Abnormal ECG Confirmed by Jeremy Vega ([id number]), fashion editor FARHAN AGUILAR ([id number]) on 09/18/2024 10:48:43 AM Referred By: Confirmed By: Jeremy Vega 09/18/24 1048 Date Jeremy Vega MD CC: Dr. Marques Peace MD; Dr. Trevor Vieyra MD Signed [facility] 12 Lead EKG [facility] Cardiovascular Services [address] [place] [address] 12 Lead EKG 09/17/24 1648 MR#: [id number] Acct: [id number] Name: SPENCER REDDING Rep #: [id number] : 1965 59 From: Jeremy Vega MD Attending Dr: Status: DEP ER Ordering Dr: Marques Paece MD Date: 09/17/24 Location: ED Sex: F [...] QT Abnormal ECG Confirmed by Jeremy Vega ([id number]), fashion editor FARHAN AGUILAR ([id number]) on 09/18/2024 10:56:35 AM Referred By: Confirmed By: Jeremy Vega 09/18/24 1056 Date Jeremy Vega MD CC: Dr. Marques Peace MD; Dr. Trevor Vieyra MD Signed [facility] Absolute lymphocyte countOrd ered By: Marques Peace on 09-17-2024 Lymphocytes Auto (Unsp spec) [#/Vol] 1.11 10*3/uL 0.83-4.51 [facility] Absolute neutrophil countOrd ered By: Marques Peace on 09-17-2024 Neutrophils (Bld) [#/Vol] 4.1 10*3/uL 2.0-7.7 [facility] Anion gap in Serum or Plasma Ordered By: Marques Peace on 09-17-2024 Anion gap [Moles/Vol] 17 mmol/L High 5-15 [facility] Automated lymphocyte count a s percentage of total leukocytesOrdered By: Marques Peace on 09-17-2024 Lymphocytes/100 WBC Auto (Unsp spec) 18.8 % Low 19-41 [facility] BUN/creatinine ratioOrdered By: Marques Peace on 09-17-2024 Urea nitrogen/Creatinine [Mass ratio] 4.2 mg/mg Low 10-20 [facility] Basophil percentageOrdered B y: Marques Peace on 09-17-2024 Basophils/100 WBC (Bld) 0.5 % 0-[address] [facility] Bilirubin, totalOrdered By: Marques Peace on 09-17-2024 Bilirubin [Mass/Vol] 0.26 mg/dL 0.00-1.30 [facility] CBC W/Diff, Automatedon 09-08 Absolute Lymph 1.11 X10 3/uL Normal 0.83-4.51 [facility] Comment on above: Performed By: #### L 300.3900, L500.4050, L100.0100 #### [facility] [address] [place], [address] Absolute Neut 4.1 X10 3/uL Normal 2.0-7.7 [facility] Comment on above: Performed By: #### L 300.3900, L500.4050, L100.0100 #### [facility] [address] [place], [address] Basophils/100 WBC (Bld) 0.5 % Normal 0-[address] [facility] Comment on above: Performed By: #### L 300.3900, L500.4050, L100.0100 #### [facility] [address] [place], [address] Eosinophils/100 WBC (Bld) 5.2 % High 0-5 [facility] Comment on above: Performed By: #### L 300.3900, L500.4050, L100.0100 #### [facility] [address] [place], [address] Erythrocyte distribution width (RBC) [Ratio] 14.8 % High 11.6-14.6 [facility] Comment on above: Performed By: #### L 300.3900, L500.4050, L100.0100 #### [facility] [address] [place], [address] Hematocrit (Bld) [Volume fraction] 34.0 % Low 37-47 [facility] Comment on above: Performed By: #### L 300.3900, L500.4050, L100.0100 #### [facility] [address] [place], [address] Hemoglobin (Bld) [Mass/Vol] 11.6 g/dL Low 12.0-15.0 [facility] Comment on above: Performed By: #### L 300.3900, L500.4050, L100.0100 #### [facility] [address] [place], [address] IG% 0.200 Normal 0.0-0.9 [facility] Comment on above: Result Comment: IG% - Immature Granulocytes (promyelocytes, myelocytes and metamyelocytes) > 1% indicates that a LEFT SHIFT is Present. Performed By: #### L 300.3900, L500.4050, L100.0100 #### [facility] [address] [place], [address] Lymphocytes/100 WBC (Bld) 18.8 % Low 19-41 [facility] Comment on above: Performed By: #### L 300.3900, L500.4050, L100.0100 #### [facility] [address] [place], [address] MCH (RBC) [Entitic mass] 33.0 pg High 27.0-32.0 [facility] Comment on above: Performed By: #### L 300.3900, L500.4050, L100.0100 #### [facility] [address] [place], [address] MCHC (RBC) [Mass/Vol] 34.1 g/dL Normal 32-36 [facility] Comment on above: Performed By: #### L 300.3900, L500.4050, L100.0100 #### [facility] [address] [place], [address] MCV (RBC) [Entitic vol] 96.9 fL Normal 81-99 [facility] Comment on above: Performed By: #### L 300.3900, L500.4050, L100.0100 #### [facility] [address] [place], [address] Monocytes/100 WBC (Bld) 6.6 % Normal 0-10 [facility] Comment on above: Performed By: #### L 300.3900, L500.4050, L100.0100 #### [facility] [address] [place], [address] Neutrophils/100 WBC (Bld) 68.7 % Normal 47-70 [facility] Comment on above: Performed By: #### L 300.3900, L500.4050, L100.0100 #### [facility] [address] [place], [address] Nucleated RBC (Bld) [#/Vol] 0 10*3/uL Normal 0-5 [facility] Comment on above: Performed By: #### L 300.3900, L500.4050, L100.0100 #### [facility] [address] [place], [address] Platelet mean volume (Bld) [Entitic vol] 9.3 fL Normal 6.2-12.0 [facility] Comment on above: Performed By: #### L 300.3900, L500.4050, L100.0100 #### [facility] [address] [place], [address] Platelets (Bld) [#/Vol] 207 10*3/uL Normal 150-450 [facility] Comment on above: Performed By: #### L 300.3900, L500.4050, L100.0100 #### [facility] [address] [place], [address] RBC (Bld) [#/Vol] 3.51 10*6/uL Low 4.2-5.4 [facility] Comment on above: Performed By: #### L 300.3900, L500.4050, L100.0100 #### [facility] [address] [place], [address] RDW SD 51.5 fl High 35.1-43.9 [facility] Comment on above: Performed By: #### L 300.3900, L500.4050, L100.0100 #### [facility] [address] [place], [address] WBC (Bld) [#/Vol] 5.9 10*3/uL Normal 4.4-11.0 [facility] Comment on above: Performed By: #### L 300.3900, L500.4050, L100.0100 #### [facility] [address] [place], [address] Carbon dioxide, total [Moles /volume] in Central venous bloodOrdered By: Marques Peace on 09-17-2024 CO2 [Moles/Vol] 33.0 mmol/L High 21.0-32.0 [facility] Chest 1 View (Portable)on Chest 1 View (Portable) [facility] Imaging Services [address] [place], [place] [id number] Chest 1 View (Portable) MR#: [id number] Acct: [id number] Name: SPENCER REDDING Rep #: [id number] : 1965 F 59 From: Yoon Olmos nd, MD PCP: Dr. Trevor Vieyra MD Status: PRE ER Study: Chest 1 View (Portable) Date of Exam: 09/17/24 Exam# [id number] Ordering Dr: Marques Peace MD PROCEDURE: CHEST [...] (Portable) IMPRESSION: Stable chest radiograph. Reading Location: [facility] CC: Dr. Marques Peace MD; Dr. Trevor Vieyra MD Clearing Distribution Clerk: Signed Normal [facility] Chloride assayOrdered By: Alfred Peace on 09-17-2024 Chloride [Moles/Vol] 89 mmol/L Low 98-108 [facility] Comprehensive Metabolic Prof ilon 09-17-2024 Albumin [Mass/Vol] 4.5 g/dL Normal 3.4-4.8 [facility] Comment on above: Performed By: #### L 300.3900, L500.4050, L100.0100 #### [facility] [address] [place], [place], [address] Albumin/Globulin [Mass ratio] 1.4 {ratio} Normal 0.9-2.4 [facility] Comment on above: Performed By: #### L 300.3900, L500.4050, L100.0100 #### [facility] [address] [place], [address] ALK PHOS 96 U/L Normal 35-104 [facility] Comment on above: Performed By: #### L 300.3900, L500.4050, L100.0100 #### [facility] [address] [place], [address] ALT [Catalytic activity/Vol] 23 U/L Normal <=34 [facility] Comment on above: Performed By: #### L 300.3900, L500.4050, L100.0100 #### [facility] [address] [place], [address] AST [Catalytic activity/Vol] 25 U/L Normal <=31 [facility] Comment on above: Performed By: #### L 300.3900, L500.4050, L100.0100 #### [facility] [address] [place], [address] Bilirubin [Mass/Vol] 0.26 mg/dL Normal 0.00-1.30 [facility] Comment on above: Performed By: #### L 300.3900, L500.4050, L100.0100 #### [facility] [address] [place], [address] BUN/CRE 4.2 RATIO Low 10-20 [facility] Comment on above: Performed By: #### L 300.3900, L500.4050, L100.0100 #### [facility] [address] [place], [address] Calcium [Mass/Vol] 8.5 mg/dL Normal 7.6-11.0 [facility] Comment on above: Performed By: #### L 300.3900, L500.4050, L100.0100 #### [facility] [address] [place], [address] Chloride [Moles/Vol] 89 mmol/L Low 98-108 [facility] Comment on above: Performed By: #### L 300.3900, L500.4050, L100.0100 #### [facility] [address] [place], [address] CO2 [Moles/Vol] 33.0 mmol/L High 21.0-32.0 [facility] Comment on above: Performed By: #### L 300.3900, L500.4050, L100.0100 #### [facility] [address] [place], [address] Creatinine [Mass/Vol] 6.01 mg/dL High 0.70-1.20 [facility] Comment on above: Performed By: #### L 300.3900, L500.4050, L100.0100 #### [facility] [address] [place], [address] ECRCL 10.10 ml/min Low 50-250 [facility] Comment on above: Performed By: #### L 300.3900, L500.4050, L100.0100 #### [facility] [address] [place], [address] GAP 17 High 5-15 [facility] Comment on above: Performed By: #### L 300.3900, L500.4050, L100.0100 #### [facility] [address] [place], [address] GFR/1.73 sq M.predicted among non-blacks MDRD (S/P/Bld) [Vol rate/Area] 7 mL/min/{1.73_m2} Low >60 [facility] Comment on above: Result Comment: mL/m in/1.73m2 CKD-EPI Creatinine Equation (2020) Performed By: #### L 300.3900, L500.4050, L100.0100 #### [facility] [address] [place], [address] Globulin (S) [Mass/Vol] 3.1 g/dL Normal 2.2-4.2 [facility] Comment on above: Performed By: #### L 300.3900, L500.4050, L100.0100 #### [facility] [address] [place], [address] Glucose [Mass/Vol] 93 mg/dL Normal 70-99 [facility] Comment on above: Performed By: #### L 300.3900, L500.4050, L100.0100 #### [facility] [address] [place], [address] Potassium [Moles/Vol] 3.5 mmol/L Normal 3.3-5.1 [facility] Comment on above: Result Comment: Hemo lysis present, Results??could be affected. ?? Performed By: #### L 300.3900, L500.4050, L100.0100 #### [facility] [address] [place], [address] Sodium [Moles/Vol] 139 mmol/L Normal 133-145 [facility] Comment on above: Performed By: #### L 300.3900, L500.4050, L100.0100 #### [facility] [address] [place], [address] T PROT 7.6 g/dL Normal 5.9-8.4 [facility] Comment on above: Performed By: #### L 300.3900, L500.4050, L100.0100 #### [facility] [address] [place], [address] Urea nitrogen [Mass/Vol] 25 mg/dL High 4-19 [facility] Comment on above: Performed By: #### L 300.3900, L500.4050, L100.0100 #### [facility] [address] [place], [address] Emergency Department Summary on 09-17-2024 Emergency Department Summary [facility] Medical Records Department [address] [place] [address] Emergency Department Summary 09/17/24 MR#: [id number] Acct: [id number] Name: SPENCER REDDING Rep #: [id number] : 1965 59 From: Marques Peace MD [...] just before Darnell. They never found what was going on. She states that EMS had have her do Valsalva maneuvers which alleviated her rapid heart rate. However, they tried this multiple times at dialysis without resolution. 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 [facility] Medical History Polycystic kidney disease Sudden cardiac Hypertriglyceridemia Hyperlipidemia History of torsades de pointes Atherosclerosis of coronary artery of [place] heart without angina pectoris Syncope and collapse [...] 03/15/23 History belladonna alkaloids-opium 16.2 1 supp [facility] TID PRN pain 7 days #12 01/30/22 [...] rapid he (more content not included)... Normal [facility] Eosinophil percentageOrdered By: Marques Peace on 09-17-2024 Eosinophils/100 WBC (Bld) 5.2 % High 0-5 [facility] Erythrocyte distribution wid th ratioOrdered By: Marques Peace on 09-17-2024 Erythrocyte distribution width (RBC) [Ratio] 14.8 % High 11.6-14.6 [facility] Erythrocyte distribution wid th standard deviationOrdered By: Marques Peace on 09-17-2024 Erythrocyte distribution width (RBC) [Entitic vol] 51.5 fL High 35.1-43.9 [facility] Erythrocyte distribution width (RBC) [Ratio] 51.5 fl High 35.1-43.9 [facility] Estimation of creatinine leo aranceOrdered By: Marques Peace on 09-17-2024 Estimated Creatinine Clearance Calc 10.10 ml/min Low 50-250 [facility] GFR/1.73 sq M.predicted anay g non-blacks MDRD (S/P/Bld) [Vol rate/Area]Ordered By: Marques Peace on 09-17-2024 Estimated GFR (MDRD) Non-Af Amer 7 Low >60 [facility] Comment on above: mL/min/1.73m2 CKD-EP I Creatinine Equation (2020) Glomerular filtration rate ( GFR) estimation/1.73 sq m using serum, plasma, or whole bOrdered By: Marques Peace on 09-17-2024 GFR/1.73 sq M.predicted among non-blacks MDRD (S/P/Bld) [Vol rate/Area] 7 mL/min/{1.73_m2} Low >60 [facility] Comment on above: mL/min/1.73m2 CKD-EP I Creatinine Equation (2020) Hematocrit Auto (Bld) [Volum e fraction]Ordered By: Marques Peace on 09-17-2024 Hematocrit (Bld) [Volume fraction] 34.0 % Low 37-47 [facility] Hemoglobin measurementOrdere d By: Marques Peace on 09-17-2024 Hemoglobin (Bld) [Mass/Vol] 11.6 g/dL Low 12.0-15.0 [facility] Immature granulocytes/100 WB C Auto (Bld)Ordered By: Marques Peace on 09-17-2024 Immature granulocytes/100 WBC (Bld) 0.200 % 0.0-0.9 [facility] Comment on above: IG% - Immature Granu locytes (promyelocytes, myelocytes and metamyelocytes) > 1% indicates that a LEFT SHIFT is Present. International normalized rat io (INR) calculationOrdered By: Marques Peace on 09-17-2024 INR Coag (Bld) [Relative time] 2.5 {INR} [facility] Laboratory - Chemistry and C hemistry - challengeOrdered By: Marques Peace on 09-17-2024 AST [Catalytic activity/Vol] 25 U/L <32 [facility] Lymphocytes Auto (Unsp spec) [#/Vol]Ordered By: Marques Peace on 09-17-2024 Lymphocytes (Bld) [#/Vol] 1.11 10*3/uL 0.83-4.51 [facility] Lymphocytes/100 WBC Auto (Un sp spec)Ordered By: Marques Peace on 09-17-2024 Lymphocytes/100 WBC (Bld) 18.8 % Low 19-41 [facility] MCV (mean corpuscular volume ) determinationOrdered By: Marques Peace on 09-17-2024 MCV (RBC) [Entitic vol] 96.9 fL 81-[address] [facility] Mean corpuscular hemoglobin (MCH) determinationOrdered By: Marques Peace on 09-17-2024 MCH (RBC) [Entitic mass] 33.0 pg High 27.0-32.0 [facility] Mean corpuscular hemoglobin concentration (MCHC) determinationOrdered By: Marques Peace on 09-17-2024 MCHC (RBC) [Mass/Vol] 34.1 g/dL 32-36 [facility] Mean platelet volume determi nationOrdered By: Marques Peace on 09-17-2024 Platelet mean volume (Bld) [Entitic vol] 9.3 fL 6.2-12.0 [facility] Monocyte percentageOrdered B y: Marques Peace on 09-17-2024 Monocytes/100 WBC (Bld) 6.6 % 0-[address] [facility] Neutrophil percentageOrdered By: Marques Peace on 09-17-2024 Neutrophils/100 WBC (Bld) 68.7 % 47-70 [facility] Nucleated red blood cell per centageOrdered By: Marques Peace on 09-17-2024 Nucleated RBC/100 WBC (Bld) [Ratio] 0 % 0-5 [facility] Platelet countOrdered By: Alfred Peace on 09-17-2024 Platelets (Bld) [#/Vol] 207 10*3/uL 150-450 [facility] Potassium (Unsp spec) [Mass/ Vol]Ordered By: Marques Peace on 09-17-2024 Potassium [Moles/Vol] 3.5 mmol/L 3.3-5.1 [facility] Comment on above: Hemolysis present, R esults could be affected. Potassium measurement (mass/ volume)Ordered By: Marques Peace on 09-17-2024 Potassium (Unsp spec) [Mass/Vol] 3.5 mmol/L 3.3-5.1 [facility] Comment on above: Hemolysis present, R esults could be affected. Prothrombin Time w/INRon INR Coag (PPP) [Relative time] 2.5 {INR} Normal [facility] Comment on above: Performed By: #### L 300.3900, L500.4050, L100.0100 #### [facility] Laboratory [address] [place], [address] PT Coag (PPP) [Time] 27.9 s High 11.7-14.9 [facility] Comment on above: Performed By: #### L 300.3900, L500.4050, L100.0100 #### [facility] [address] [place], [address] Prothrombin timeOrdered By: Marques Peace on 09-17-2024 PT Coag (PPP) [Time] 27.9 s High 11.7-14.9 [facility] RBC Auto (Bld) [#/Vol]Ordere d By: Marques Peace on 09-17-2024 RBC (Bld) [#/Vol] 3.51 10*6/uL Low 4.2-5.4 [facility] Serum creatinine measurement (mass/volume)Ordered By: Marques Peace on 09-17-2024 Creatinine [Mass/Vol] 6.01 mg/dL High 0.70-1.20 [facility] Serum globulin measurementOr dered By: Marques Peace on 09-17-2024 Globulin (S) [Mass/Vol] 3.1 g/dL 2.2-4.2 [facility] Serum glucose measurement (m ass/volume)Ordered By: Marques Peace on 09-17-2024 Glucose [Mass/Vol] 93 mg/dL 70-99 [facility] Serum or plasma alanine cervantes otransferase (ALT) measurementOrdered By: Marques Peace on 09-17-2024 ALT [Catalytic activity/Vol] 23 U/L <35 [facility] Serum or plasma albumin destini urement (mass/volume)Ordered By: Marques Peace on 09-17-2024 Albumin [Mass/Vol] 4.5 g/dL 3.4-4.8 [facility] Serum or plasma albumin/glob ulin mass ratioOrdered By: Marques Peace on 09-17-2024 Albumin/Globulin [Mass ratio] 1.4 {ratio} 0.9-2.4 [facility] Serum or plasma alkaline josé miguel sphatase measurementOrdered By: Marques Peace on 09-17-2024 ALP [Catalytic activity/Vol] 96 U/L 35-104 [facility] Serum or plasma calcium destini urement (mass/volume)Ordered By: Marques Peace on 09-17-2024 Calcium [Mass/Vol] 8.5 mg/dL 7.6-11.0 [facility] Serum or plasma urea nitroge n measurement (mass/volume)Ordered By: Marques Peace on 09-17-2024 Urea nitrogen [Mass/Vol] 25 mg/dL High 4-19 [facility] Sodium levelOrdered By: Marques Peace on 09-17-2024 Sodium [Moles/Vol] 139 mmol/L 133-145 [facility] Total proteinOrdered By: Verito Peace on 09-17-2024 Protein [Mass/Vol] 7.6 g/dL 5.9-8.4 [facility] White blood cell (WBC) count Ordered By: Marques Peace on 09-17-2024 WBC (Bld) [#/Vol] 5.9 10*3/uL 4.4-11.0 [facility] International normalized rat io (INR) calculationOrdered By: Trevor Vieyra on 09-11-2024 INR Coag (Bld) [Relative time] 2.2 {INR} [facility] Prothrombin Time w/INRon INR Coag (PPP) [Relative time] 2.2 {INR} Normal [facility] Comment on above: Performed By: #### L 527.1670 #### [facility] [address] [place], [place], [address] PT Coag (PPP) [Time] 25.3 s High 11.7-14.9 [facility] Comment on above: Performed By: #### L [id number] #### [facility] [address] [place], [place], [id number] Prothrombin timeOrdered By: Trevor Vieyra on 09-11-2024 PT Coag (PPP) [Time] 25.3 s High 11.7-14.9 [facility] International normalized rat io (INR) calculationOrdered By: Trevor Vieyra on 09-04-2024 INR Coag (Bld) [Relative time] 2.1 {INR} [facility] Prothrombin Time w/INRon INR Coag (PPP) [Relative time] 2.1 {INR} Normal [facility] Comment on above: Performed By: #### L [id number] #### [facility] [address] [place], [address] PT Coag (PPP) [Time] 23.6 s High 11.7-14.9 [facility] Comment on above: Performed By: #### L [id number] #### [facility] [address] [place], [place], [id number] Prothrombin timeOrdered By: Trevor Vieyra on 09-04-2024 PT Coag (PPP) [Time] 23.6 s High 11.7-14.9 [facility] Prothrombin Time w/INRon INR Coag (PPP) [Relative time] 2.4 {INR} Normal [facility] Comment on above: Performed By: #### L 300.3900 #### [facility] [address] [place], [address] PT Coag (PPP) [Time] 26.5 s High 11.7-14.9 [facility] Comment on above: Performed By: #### L 300.3900 #### [facility] [address] [place], [address] No Panel InformationOrdered By: Kieran Hampton on 08-21-2024 POC SARS CoV-2 Antigen Negative [facility] Influenza Types A,B Rapid (Clinic) Negative [facility] Urgent Care Visit Reporton 0 08-21-2024 Urgent Care Visit Report [facility] [address], [address] [place] [address] OFFICE VISIT Date of Service: 08/21/24 MR#: [id number] Acct: [id number] Name: SPENCER REDDING Rep #: [id number] : 1965 Provider: GILSON Ku Age/Sex: 58/F [place] [facility] Status: Signed Intake Vital Signs 07/08/24 16:40 [...] 08/21/24 History belladonna alkaloids-opium 16.2 1 supp [facility] TID PRN pain 7 days #12 01/30/22 [...] 08/21/24 08/21/24 Rx a dose pack (Medrol (Iame)) #21 tabs Nurse's Note: Patient here for BA, MOHAMUD, cough, congestion, ST x1 day. Ran rapid covid/flu. [facility] Medical History Polycystic kidney disease Sudden cardiac Hypertriglyceridemia Hyperlipidemia History of torsades de pointes Atherosclerosis of coronary artery of [place] heart without angina pectoris Syncope and collapse [...] recently dx???d w/ similar URI complaints. No epyx-mpz-zqkzsow taken to assist. No other associated symptoms and no other alleviating/aggravating factors. ROS Const (more content not included)... Normal [facility] OT D/C of Non Returning Pton 08-16-2024 OT D/C of Non Returning Pt [facility] Occupational Therapy [facility] [address] [place] [address] / REHABILITATION SERVICES DISCHARGE SUMMARY MR#: [id number] Acct: [id number] Name: PSENCER REDDING Rep #: [id number] : 1965 58 From: Maday HUNG/Agustin, CHT Referring Dr.: Dr. Trevor Vieyra MD [...] by the physician. Thank you! Maday Bush, OTR/L, CHT 08/16/24 1022 CC: Dr. Trevor Vieyra MD MK Signed Normal [facility] International normalized rat io (INR) calculationOrdered By: Trevor Vieyra on 08-09-2024 INR Coag (Bld) [Relative time] 1.9 {INR} [facility] Prothrombin Time w/INRon INR Coag (PPP) [Relative time] 1.9 {INR} Normal [facility] Comment on above: Performed By: #### L 300.3900 #### [facility] [address] [place], [place], [id number] PT Coag (PPP) [Time] 22.2 s High 11.7-14.9 [facility] Comment on above: Performed By: #### L [id number] #### [facility] [address] [place], [address] Prothrombin timeOrdered By: Trevor Vieyra on 08-09-2024 PT Coag (PPP) [Time] 22.2 s High 11.7-14.9 [facility] International normalized rat io (INR) calculationOrdered By: Trevor Vieyra on 07-23-2024 INR Coag (Bld) [Relative time] 2.0 {INR} [facility] Prothrombin Time w/INRon INR Coag (PPP) [Relative time] 2.0 {INR} Normal [facility] Comment on above: Order Comment: Inter face Comments: standing order Order Date: 07/23/24 Order Info: [id number] - PT Comments: standing order Performed By: #### L 300.3900 #### [facility] [address] [place], [place], [id number] PT Coag (PPP) [Time] 22.8 s High 11.7-14.9 [facility] Comment on above: Order Comment: Inter face Comments: standing order Order Date: 07/23/24 Order Info: [id number] - PT Comments: standing order Performed By: #### L 300.3900 #### [facility] [address] [place], [place], [address] Prothrombin timeOrdered By: Trevor Vieyra on 07-23-2024 PT Coag (PPP) [Time] 22.8 s High 11.7-14.9 [facility] Prothrombin Time w/INRon INR Coag (PPP) [Relative time] 2.1 {INR} Normal [facility] Comment on above: Performed By: #### L 300.3900 #### [facility] [address] [place], [place], [address] PT Coag (PPP) [Time] 23.8 s High 11.7-14.9 [facility] Comment on above: Performed By: #### L 300.3900 #### [facility] [address] [place], [place], [address] Office Visiton 07-09-2024 Follow-up visit [id number] Spencer Redding 1965 F Date Provider Department Center 07/09/2024 [facility] [address] Family History Problem Relation Age of Onset Cancer Mother Kidney disease Brother Kidney disease Father Heart disease Father High Blood Pressure Father Diabetes Mother Family Status - Relation Status Age at Mother Brother Father Level of Service:98624 [facility] OFFICE/OUTPATIENT ESTABLISHED LOW MDM 20 MIN Reason for Visit and Comments: Annual Exam [83] Normal [facility] Progress Noteon 07-09-2024 Progress Note [facility] Cardiology Note Chief Complaint: Chief [...] EKG CAD (coronary artery disease) Cardiac arrest ([facility]) Chest pain, unspecified CHF (congestive heart failure) ([facility]) ([facility]) Chronic kidney disease Depression DVT (deep venous thrombosis) ([facility]) 2006 Left below knee End stage renal disease on dialysis ([facility]) Endocarditis Hypertension Left ventricular dysfunction Osteoarthritis Presence [...] CORONARY ANGIOPLASTY WITH STENT PLACEMENT Left 04/21/2016 [facility] Left 12/23/2015 [facility] [...] Comments), Severe N/V Penicillins Hives and Rash [place] Extract Nausea And Vomiting and Rash Other reaction(s): Vomiting, Vomiting Etodolac Rash Sevelamer Other reaction(s): GI Upset, Nausea, Unknown Sulfamethoxazole-Trimet hoprim Rash Other reaction(s): GI Upset Tramadol Rash Other reaction(s): Intolerance, Nausea Sulfamethoxazole Other reaction(s): Rash Trimethoprim Other reaction(s): Rash Medications: Current Outpatient Medications: atorvastatin (Lipitor) 40 MG tablet, Take 40 mg by mouth Nightly. for cholesterol, Disp: , Rfl: B Fliucwy-B-Fynmf Acid (RANI-YAHIR PO), Take 1 tablet by [...] vomiting. Endocrine: (more content not included)... Normal [facility] 12 Lead EKGon 07-08-2024 12 Lead EKG [facility]ovascular Services [address] [place] [address] 12 Lead EKG 07/08/24 1657 MR#: [id number] Acct: [id number] Name: SPENCER REDDING Rep #: [id number] : 1965 58 From: Ernesto Garvin MD [...] Normal sinus rhythm Abnormal ECG Confirmed by ERNESTO GARVIN MD ([id number]), fashion editor FARHAN AGUILAR ([id number]) on 07/09/2024 11:05:44 AM Referred By: Confirmed By: ERNESTO GARVIN MD 07/09/24 1105 Date Ernesto Garvin MD CC: Dr. Trevor Preston DO; Dr. Trevor Vieyra MD Signed Normal [facility] Absolute neutrophil countOrd ered By: Trevor Preston on 07-08-2024 Neutrophils (Bld) [#/Vol] 2.3 10*3/uL 2.0-7.7 [facility] Basic Metabolic Profile (BMP )on 07-08-2024 BUN/CRE 2.9 RATIO Low 10-20 [facility] Comment on above: Order Comment: 'TROP ' Serial specimen #1, #2 or #3: 1 Performed By: #### L 300.3900 #### [facility] [address] [place], [address] CA,Total 8.0 mg/dL Low 8.5-10.1 [facility] Comment on above: Order Comment: 'TROP ' Serial specimen #1, #2 or #3: 1 Performed By: #### L 300.3900 #### [facility] [address] [place], [address] Chloride [Moles/Vol] 94 mmol/L Low 98-107 [facility] Comment on above: Order Comment: 'TROP ' Serial specimen #1, #2 or #3: 1 Performed By: #### L 300.3900 #### [facility] [address] [place], [address] CO2 [Moles/Vol] 34.0 mmol/L High 21.0-32.0 [facility] Comment on above: Order Comment: 'TROP ' Serial specimen #1, #2 or #3: 1 Performed By: #### L 300.3900 #### [facility] [address] [place], [address] Creatinine [Mass/Vol] 4.21 mg/dL High 0.55-1.02 [facility] Comment on above: Order Comment: 'TROP ' Serial specimen #1, #2 or #3: 1 Result Comment: The validity of the calculated GFR GFRAA in patients over 70 years has not been determined. Clinical correlation is essential. Performed By: #### L 300.3900 #### [facility] [address] [place], [address] ECRCL 14.48 ml/min Normal [facility] Comment on above: Order Comment: 'TROP ' Serial specimen #1, #2 or #3: 1 Performed By: #### L 300.3900 #### [facility] [address] [place], [address] EST GFR - AA 14 mL/min Low >60 [facility] Comment on above: Order Comment: 'TROP ' Serial specimen #1, #2 or #3: 1 Result Comment: Afri can Lithuanian GFR Calc Performed By: #### L 300.3900 #### [facility] [address] [place], [address] GAP 10 Normal 5-15 [facility] Comment on above: Order Comment: 'TROP ' Serial specimen #1, #2 or #3: 1 Performed By: #### L 300.3900 #### [facility] [address] [place], [address] GFR/1.73 sq M.predicted among non-blacks MDRD (S/P/Bld) [Vol rate/Area] 11 mL/min/{1.73_m2} Low >60 [facility] Comment on above: Order Comment: 'TROP ' Serial specimen #1, #2 or #3: 1 Result Comment: Non- GFR Calc Performed By: #### L 300.3900 #### [facility] [address] [place], [address] Glucose [Mass/Vol] 111 mg/dL High 74-106 [facility] Comment on above: Order Comment: 'TROP ' Serial specimen #1, #2 or #3: 1 Result Comment: Fast ing Glucose result from 100 to 125 mg/dL suggests IMPAIRED HOMEOSTASIS per A.D.A. criteria. Performed By: #### L 300.3900 #### [facility] [address] [place], [address] Potassium [Moles/Vol] 3.1 mmol/L Low 3.5-5.1 [facility] Comment on above: Order Comment: 'TROP ' Serial specimen #1, #2 or #3: 1 Performed By: #### L 300.3900 #### [facility] [address] [place], [address] Sodium [Moles/Vol] 138 mmol/L Normal 136-145 [facility] Comment on above: Order Comment: 'TROP ' Serial specimen #1, #2 or #3: 1 Performed By: #### L 300.3900 #### [facility] [address] [place], [address] Urea nitrogen [Mass/Vol] 12 mg/dL Normal 7-18 [facility] Comment on above: Order Comment: 'TROP ' Serial specimen #1, #2 or #3: 1 Performed By: #### L 300.3900 #### [facility] [address] [place], [address] Basophil percentageOrdered B y: Trevor Preston on 07-08-2024 Basophils/100 WBC (Bld) 1.2 % High 0-[address] [facility] Blood urea nitrogen (BUN)/cr eatinine ratioOrdered By: Trevor Preston on 07-08-2024 Urea nitrogen/Creatinine [Mass ratio] 2.9 mg/mg Low 10-20 [facility] CBC W/Diff, Automatedon - Absolute Lymph 0.87 X10 3/uL Normal 0.83-4.51 [facility] Comment on above: Performed By: #### L 300.3900 #### [facility] [address] [place], [address] Absolute Neut 2.3 X10 3/uL Normal 2.0-7.7 [facility] Comment on above: Performed By: #### L 300.3900 #### [facility] [address] [place], [address] Basophils/100 WBC (Bld) 1.2 % High 0-[address] [facility] Comment on above: Performed By: #### L 300.3900 #### [facility] [address] [place], [address] Eosinophils/100 WBC (Bld) 13.0 % High 0-5 [facility] Comment on above: Performed By: #### L 300.3900 #### [facility] [address] [place], [address] Erythrocyte distribution width (RBC) [Ratio] 15.9 % High 11.6-14.6 [facility] Comment on above: Performed By: #### L 300.3900 #### [facility] [address] [place], [address] Hematocrit (Bld) [Volume fraction] 32.3 % Low 37-47 [facility] Comment on above: Performed By: #### L 300.3900 #### [facility] [address] [place], [address] Hemoglobin (Bld) [Mass/Vol] 10.7 g/dL Low 12.0-15.0 [facility] Comment on above: Performed By: #### L 300.3900 #### [facility] [address] [place], [address] IG% 0.200 Normal 0.0-0.9 [facility] Comment on above: Result Comment: IG% - Immature Granulocytes (promyelocytes, myelocytes and metamyelocytes) > 1% indicates that a LEFT SHIFT is Present. Performed By: #### L 300.3900 #### [facility] [address] [place], [address] Lymphocytes/100 WBC (Bld) 21.0 % Normal 19-41 [facility] Comment on above: Performed By: #### L 300.3900 #### [facility] [address] [place], [address] MCH (RBC) [Entitic mass] 30.9 pg Normal 27.0-32.0 [facility] Comment on above: Performed By: #### L 300.3900 #### [facility] [address] [place], [address] MCHC (RBC) [Mass/Vol] 33.1 g/dL Normal 32-36 [facility] Comment on above: Performed By: #### L 300.3900 #### [facility] [address] [place], [address] MCV (RBC) [Entitic vol] 93.4 fL Normal 81-[address] [facility] Comment on above: Performed By: #### L 300.3900 #### [facility] [address] [place], [address] Monocytes/100 WBC (Bld) 8.2 % Normal 0-10 [facility] Comment on above: Performed By: #### L 300.3900 #### [facility] [address] [place], [address] Neutrophils/100 WBC (Bld) 56.4 % Normal 47-70 [facility] Comment on above: Performed By: #### L 300.3900 #### [facility] [address] [place], [address] Nucleated RBC (Bld) [#/Vol] 0 10*3/uL Normal 0-5 [facility] Comment on above: Performed By: #### L 300.3900 #### [facility] [address] [place], [address] Platelet mean volume (Bld) [Entitic vol] 9.2 fL Normal 6.2-12.0 [facility] Comment on above: Performed By: #### L 300.3900 #### [facility] [address] [place], [address] Platelets (Bld) [#/Vol] 224 10*3/uL Normal 150-450 [facility] Comment on above: Performed By: #### L 300.3900 #### [facility] [address] [place], [address] RBC (Bld) [#/Vol] 3.46 10*6/uL Low 4.2-5.4 [facility] Comment on above: Performed By: #### L 300.3900 #### [facility] [address] [place], [address] RDW SD 52.8 fl High 35.1-43.9 [facility] Comment on above: Performed By: #### L 300.3900 #### [facility] [address] [place], [address] WBC (Bld) [#/Vol] 4.1 10*3/uL Low 4.4-11.0 [facility] Comment on above: Performed By: #### L 300.3900 #### [facility] [address] [facility] [place], [address] Carbon dioxide measurementOr dered By: Trevor Preston on 07-08-2024 CO2 [Moles/Vol] 34.0 mmol/L High 21.0-32.0 [facility] Chest PA and Lateralon 07-08 Chest PA and Lateral [facility] Imaging Services [address] [place] [address] Chest PA and Lateral MR#: [id number] Acct: [id number] Name: SPENCER REDDING Rep #: [id number] : 1965 F 58 From: Maicol Martinez PCP: Dr. Trevor Vieyra MD Status: [facility] ER Study: Chest PA and Lateral Date of Exam: 07/08/24 Exam# [id number] Ordering Dr: [place] [id number] STUDY: XR Chest 2 Views 07/08/2024 5:50 [...] 18:19 EST Reading Location ID and State: [facility] / [place] , Service support , CC: Dr. Trevor Preston DO; Dr. 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 [facility] Medical History Polycystic kidney disease Sudden cardiac Hypertriglyceridemia Hyperlipidemia History of torsades de pointes Atherosclerosis of coronary artery of [place] heart without angina pectoris Syncope and collapse [...] 03/15/23 History belladonna alkaloids-opium 16.2 1 supp [facility] TID PRN pain 7 days #12 01/30/22 [...] hematuria Musculoske (more content not included)... Normal [facility] Eosinophil percentageOrdered By: Trevor Preston on 07-08-2024 Eosinophils/100 WBC (Bld) 13.0 % High 0-5 [facility] Erythrocyte distribution wid th ratioOrdered By: Trevor Preston on 07-08-2024 Erythrocyte distribution width (RBC) [Ratio] 15.9 % High 11.6-14.6 [facility] Erythrocyte distribution wid th standard deviationOrdered By: Trevor Preston on 07-08-2024 Erythrocyte distribution width (RBC) [Entitic vol] 52.8 fL High 35.1-43.9 [facility] Estimated glomerular filtrat ion rate (GFR) AmericanOrdered By: Trevor Preston on 07-08-2024 Estimated GFR (MDRD) Amer 14 mL/min Low >60 [facility] Comment on above: GFR Calc Estimation of creatinine leo aranceOrdered By: Trevor Preston on 07-08-2024 Estimated Creatinine Clearance Calc 14.48 ml/min [facility] Glomerular filtration rate ( GFR) estimationOrdered By: Trevor Preston on 07-08-2024 Estimated GFR (MDRD) Non-Af Amer 11 mL/min Low >60 [facility] Comment on above: Non- GFR Calc Glucose measurementOrdered B y: Trevor Preston on 07-08-2024 Glucose [Mass/Vol] 111 mg/dL High 74-106 [facility] Comment on above: Fasting Glucose resu lt from 100 to 125 mg/dL suggests IMPAIRED HOMEOSTASIS per A.D.A. criteria. Hematocrit Auto (Bld) [Volum e fraction]Ordered By: Trevor Preston on 07-08-2024 Hematocrit (Bld) [Volume fraction] 32.3 % Low 37-47 [facility] Hemoglobin measurementOrdere d By: Trevor Preston on 07-08-2024 Hemoglobin (Bld) [Mass/Vol] 10.7 g/dL Low 12.0-15.0 [facility] Immature granulocytes/100 WB C Auto (Bld)Ordered By: Trevor Preston on 07-08-2024 Immature granulocytes/100 WBC (Bld) 0.200 % 0.0-0.9 [facility] Comment on above: IG% - Immature Granu locytes (promyelocytes, myelocytes and metamyelocytes) > 1% indicates that a LEFT SHIFT is Present. L501.4020on 07-08-2024 TROPONIN-I HS 42 pg/mL Normal 3.0-54.0 [facility] Comment on above: Order Comment: 'TROP ' Serial specimen #1, #2 or #3: 1 Result Comment: Heather tolliver Note: New Test Units and Gender Specific Reference Ranges. For more information see Policy Stat Procedure [place] High Sensitivity Troponin (TNIH) and attachments. Performed By: #### L 300.3900 #### [facility] [address] [place], [address] Lymphocytes Auto (Unsp spec) [#/Vol]Ordered By: Trevor Preston on 07-08-2024 Lymphocytes (Bld) [#/Vol] 0.87 10*3/uL 0.83-4.51 [facility] Lymphocytes/100 WBC Auto (Un sp spec)Ordered By: Trevor Preston on 07-08-2024 Lymphocytes/100 WBC (Bld) 21.0 % 19-41 [facility] MCV (mean corpuscular volume ) determinationOrdered By: Trevor Preston on 07-08-2024 MCV (RBC) [Entitic vol] 93.4 fL 81-[address] [facility] Mean corpuscular hemoglobin (MCH) determinationOrdered By: Trevor Preston on 07-08-2024 MCH (RBC) [Entitic mass] 30.9 pg 27.0-32.0 [facility] Mean corpuscular hemoglobin concentration (MCHC) determinationOrdered By: Trevor Preston on 07-08-2024 MCHC (RBC) [Mass/Vol] 33.1 g/dL 32-36 [facility] Mean platelet volume determi nationOrdered By: Trevor Preston on 07-08-2024 Platelet mean volume (Bld) [Entitic vol] 9.2 fL 6.2-12.0 [facility] Monocyte percentageOrdered B y: Trevor Preston on 07-08-2024 Monocytes/100 WBC (Bld) 8.2 % 0-[address] [facility] Neutrophil percentageOrdered By: Trevor Preston on 07-08-2024 Neutrophils/100 WBC (Bld) 56.4 % 47-70 [facility] Nucleated red blood cell per centageOrdered By: Trevor Preston on 07-08-2024 Nucleated RBC/100 WBC (Bld) [Ratio] 0 % 0-5 [facility] Platelet countOrdered By: Adalberto Preston on 07-08-2024 Platelets (Bld) [#/Vol] 224 10*3/uL 150-450 [facility] Potassium measurementOrdered By: Trevor Preston on 07-08-2024 Potassium [Moles/Vol] 3.1 mmol/L Low 3.5-5.1 [facility] RBC Auto (Bld) [#/Vol]Ordere d By: Trevor Preston on 07-08-2024 RBC (Bld) [#/Vol] 3.46 10*6/uL Low 4.2-5.4 [facility] Serum anion gap measurementO rdered By: Trevor Preston on 07-08-2024 Anion gap [Moles/Vol] 10 mmol/L 5-15 [facility] Serum or plasma calcium destini urement (mass/volume)Ordered By: Trevor Preston on 07-08-2024 Calcium [Mass/Vol] 8.0 mg/dL Low 8.5-10.1 [facility] Serum or plasma creatinine m easurement (mass/volume)Ordered By: Trevor Preston on 07-08-2024 Creatinine [Mass/Vol] 4.21 mg/dL High 0.55-1.02 [facility] Comment on above: The validity of the calculated GFR & GFRAA in patients over 70 years has not been determined. Clinical correlation is essential. Serum or plasma urea nitroge n measurement (mass/volume)Ordered By: Trevor Preston on 07-08-2024 Urea nitrogen [Mass/Vol] 12 mg/dL 7-18 [facility] Sodium levelOrdered By: Trevor Preston on 07-08-2024 Sodium [Moles/Vol] 138 mmol/L 136-145 [facility] Troponin IOrdered By: Trevor wick on 07-08-2024 Troponin I High Sensitivity 42 pg/mL 3.0-54.0 [facility] Comment on above: Please Note: New Chandrika t Units and Gender Specific Reference Ranges. For more information see Policy Stat Procedure [place] High Sensitivity Troponin (TNIH) and attachments. White blood cell (WBC) count Ordered By: Trevor Preston on 07-08-2024 WBC (Bld) [#/Vol] 4.1 10*3/uL Low 4.4-11.0 [facility] International normalized rat io (INR) calculationOrdered By: Trevor Vieyra on 07-05-2024 INR Coag (Bld) [Relative time] 1.8 {INR} [facility] Prothrombin Time w/INRon INR Coag (PPP) [Relative time] 1.8 {INR} Normal [facility] Comment on above: Performed By: #### L 300.3900 #### [facility] [address] [place], [address] PT Coag (PPP) [Time] 21.0 s High 11.7-14.9 [facility] Comment on above: Performed By: #### L 300.3900 #### [facility] [address] [place], [address] Prothrombin timeOrdered By: Trevor Vieyra on 07-05-2024 PT Coag (PPP) [Time] 21.0 s High 11.7-14.9 [facility] Prothrombin Time w/INRon INR Coag (PPP) [Relative time] 1.9 {INR} Normal [facility] Comment on above: Order Comment: Order Date: 05/10/24 Order Info: [id number] - PT Performed By: #### L 300.3900 #### [facility] [address] [place], [address] PT Coag (PPP) [Time] 21.2 s High 11.7-14.9 [facility] Comment on above: Order Comment: Order Date: 05/10/24 Order Info: [id number] - PT Performed By: #### L 300.3900 #### [facility] [address] [place], [address] International normalized rat io (INR) calculationOrdered By: Trevor Vieyra on 06-06-2024 INR Coag (Bld) [Relative time] 1.3 {INR} [facility] Prothrombin Time w/INRon INR Coag (PPP) [Relative time] 1.3 {INR} Normal [facility] Comment on above: Order Comment: Order Date: 05/10/24 Order Info: [id number] - PT Performed By: #### L 300.3900 #### [facility] [address] [place], [place], [address] PT Coag (PPP) [Time] 16.6 s High 11.7-14.9 [facility] Comment on above: Order Comment: Order Date: 05/10/24 Order Info: [id number] - PT Performed By: #### L 300.3900 #### [facility] [address] [place], [address] Prothrombin timeOrdered By: Trevor Vieyra on 06-06-2024 PT Coag (PPP) [Time] 16.6 s High 11.7-14.9 [facility] Prothrombin Time w/INRon INR Coag (PPP) [Relative time] 2.1 {INR} Normal [facility] Comment on above: Order Comment: Order Date: 05/04/24Order Info: [id number] - PTComments: STANDING ORDER NEEDED X1 YEAR Performed By: #### L 300.3900 #### [facility] [address] [place], [place], [address] PT Coag (PPP) [Time] 23.7 s High 11.7-14.9 [facility] Comment on above: Order Comment: Order Date: 05/04/24Order Info: [id number] - PTComments: STANDING ORDER NEEDED X1 YEAR Performed By: #### L 300.3900 #### [facility] [address] [place], [address] Laboratory - CoagulationOrde red By: Trevor Vieyra on 10-28-2023 INR Coag (Bld) [Relative time] 2.3 {INR} [facility] PT Coag (PPP) [Time] 25.5 s 11.7-14.9 [facility] INR in Blood by Coagulation assayOrdered By: Trevor Vieyra on 06-23-2023 INR Coag (Bld) [Relative time] 2.6 {INR} [facility] - Chemistry and C hemistry - challengeOrdered By: Trevor Vieyra on 06-23-2023 Free T4 [Mass/Vol] 0.81 ng/dL 0.76-1.46 [facility] - CoagulationOrde red By: Trevor Vieyra on 06-23-2023 PT Coag (PPP) [Time] 27.9 s 11.7-14.9 [facility] No Panel InformationOrdered By: Trevor Vieyra on 06-23-2023 Free Triiodothyronine (T3) pg/dL 2.6 pg/mL 2.18-3.98 [facility] Thyroid Stimulating Hormone (TSH) 1.43 uIU/mL 0.358-3.74 [facility] CNOVon 04-28-2023 CNOV Office Visit (UROLMD ) SPENCER REDDING ([id number]) 1965 F Date Time Provider Department 04/28/23 [...] Unremarkable margins of the resection. 01/28/2022: Cystoscopy: [place] appearing bladder, blood emanating from the right ureteral orifice 02/15/2020: Cystoscopy and pyelograms: (-). 2017: Coronary stents x 5 09/02/2015: Cystoscopy and pyelograms: Negative 06/27/2015: Right upper extremity fistula 07/11/2007: Left upper extremity fistula 2004: DVT without PE No results found for this basename: uglucpoc,ubilipoc,uketo npoc,usgpoc,uhbpoc,uphp oc,upropoc,uuropoc,unit poc,uwbcpo- c,ucolpoc,uclarpoc @KATTY@ ALLERGIES ALLERGIES Allergen Reactions Penicillins Hives, Rash [place] Vomiting, Rash Etodolac Rash Sevelamer GI Upset [...] disease) on dialysis (HCC) MWF/[facility] in [place] [phone] History of coronary artery stent placement 04/22/2016 Hx of cardiovascular stress test 2017 negative for ischemia, EF 70% Hx of echocardiogram 02/2017 EF 60% moderate LVH, no valvular abnormalities- received from [facility]- on hard chart Hx of sudden [...] time, plac (more content not included)... Normal [facility] Iron measurement (mass/mass) Ordered By: Trevor Vieyra on 04-07-2023 Iron (Unsp spec) [Mass/Mass] 118 ug/dL 50-170 [facility] - Chemistry and C hemistry - challengeOrdered By: Trevor Vieyra on 04-07-2023 Cobalamin (Vitamin B12) [Mass/Vol] 883 pg/mL 211-911 [facility] Free T4 [Mass/Vol] 0.66 ng/dL 0.76-1.46 [facility] No Panel InformationOrdered By: Trevor Vieyra on 04-07-2023 Free Triiodothyronine (T3) pg/dL 2.3 pg/mL 2.18-3.98 [facility] Thyroid Stimulating Hormone (TSH) 3.92 uIU/mL 0.358-3.74 [facility] Serum Treponema species anti body detectionOrdered By: Trevor Vieyra on 04-07-2023 Treponema sp Ab Ql (S) Non-Reactive [facility] Serum or plasma ferritin anthony surement (mass/volume)Ordered By: Trevor Vieyra on 04-07-2023 Ferritin [Mass/Vol] 292 ng/mL 8-252 [facility] Serum or plasma folate measu rement (mass/volume)Ordered By: Trevor Vieyra on 04-07-2023 Folate [Mass/Vol] 19.30 ng/mL 3.1-55.4 [facility] Serum or plasma zinc measure ment (mass/volume)Ordered By: Trevor Vieyra on 04-07-2023 Zinc [Mass/Vol] 68 ug/dL 44-115 [facility] Comment on above: Detection Limit = 5P erformed at: [facility] [id number] Director: Gloria Singer MD, Phone: [phone] INR in Blood by Coagulation assayOrdered By: Trevor Vieyra on 03-31-2023 INR Coag (Bld) [Relative time] 2.0 {INR} [facility] - CoagulationOrde red By: Trevor Vieyra on 03-31-2023 PT Coag (PPP) [Time] 22.4 s 11.7-14.9 [facility] Absolute lymphocyte countOrd ered By: Salas Basilio on 03-16-2023 Lymphocytes Auto (Unsp spec) [#/Vol] 0.73 10*3/uL 0.83-4.51 [facility] Basophil percentageOrdered B y: Salas Basilio on 03-16-2023 Basophils/100 WBC (Bld) 0.9 % 0-[address] [facility] Chloride [Moles/Vol] 98 mmol/L 98-107 [facility] Eosinophils/100 WBC (Bld) 10.2 % 0-5 [facility] Glucose [Mass/Vol] 108 mg/dL 74-106 [facility] Comment on above: Fasting Glucose resu lt from 100 to 125 mg/dL suggests IMPAIRED HOMEOSTASIS per A.D.A. criteria. Neutrophils (Bld) [#/Vol] 5.0 10*3/uL 2.0-7.7 [facility] Neutrophils/100 WBC (Bld) 73.2 % 47-70 [facility] Potassium [Moles/Vol] 4.4 mmol/L 3.5-5.1 [facility] Sodium [Moles/Vol] 135 mmol/L 136-145 [facility] WBC (Bld) [#/Vol] 6.8 10*3/uL 4.4-11.0 [facility] Blood erythrocytes count (nu mber/volume)Ordered By: Salas Basilio on 03-16-2023 RBC (Bld) [#/Vol] 4.59 10*6/uL 4.2-5.4 [facility] Blood hemoglobin measurement (mass/volume)Ordered By: Salas Basilio on 03-16-2023 Hemoglobin (Bld) [Mass/Vol] 11.8 g/dL 12.0-15.0 [facility] Blood lymphocytes/100 leukoc ytesOrdered By: Salas Basilio on 03-16-2023 Lymphocytes/100 WBC (Bld) 10.8 % 19-41 [facility] Blood monocytes/100 leukocyt esOrdered By: Salas Basilio on 03-16-2023 Monocytes/100 WBC (Bld) 4.6 % 0-[address] [facility] Blood platelet mean volumeOr dered By: Salas Basilio on 03-16-2023 Platelet mean volume (Bld) [Entitic vol] 9.0 fL 6.2-12.0 [facility] Determination of erythrocyte mean corpuscular volume (MCV)Ordered By: Salas Basilio on 03-16-2023 MCV (RBC) [Entitic vol] 83.9 fL 81-[address] [facility] Hematocrit Auto (Bld) [Volum e fraction]Ordered By: Salas Basilio on 03-16-2023 Hematocrit (Bld) [Volume fraction] 38.5 % 37-47 [facility] INR in Blood by Coagulation assayOrdered By: Salas Basilio on 03-16-2023 INR Coag (Bld) [Relative time] 2.6 {INR} [facility] - Chemistry and C hemistry - challengeOrdered By: Salas Basilio on 03-16-2023 CO2 [Moles/Vol] 30.0 mmol/L 21.0-32.0 [facility] Magnesium [Mass/Vol] 2.4 mg/dL 1.6-2.6 [facility] Natriuretic peptide B (Bld) [Mass/Vol] 456.7 pg/mL 0-100 [facility] Urea nitrogen/Creatinine [Mass ratio] 3.4 mg/mg 10-20 [facility] - CoagulationOrde red By: Salas Basilio on 03-16-2023 PT Coag (PPP) [Time] 28.3 s 11.7-14.9 [facility] - Hematology and Cell countsOrdered By: Salas Basilio on 03-16-2023 Erythrocyte distribution width (RBC) [Entitic vol] 53.7 fL 35.1-43.9 [facility] Erythrocyte distribution width (RBC) [Ratio] 17.8 % 11.6-14.6 [facility] Immature granulocytes/100 WBC (Bld) 0.300 % 0.0-0.9 [facility] Comment on above: IG% - Immature Granu locytes (promyelocytes, myelocytes and metamyelocytes) > 1% indicates that a LEFT SHIFT is Present. MCH (RBC) [Entitic mass] 25.7 pg 27.0-32.0 [facility] Nucleated RBC/100 WBC (Bld) [Ratio] 0 % 0-5 [facility] MCHC Auto (RBC) [Mass/Vol]Or dered By: Salas Basilio on 03-16-2023 MCHC (RBC) [Mass/Vol] 30.6 g/dL 32-36 [facility] No Panel InformationOrdered By: Salas Basilio on 03-16-2023 Troponin I High Sensitivity 27 pg/mL 3.0-54.0 [facility] Comment on above: Please Note: New Chandrika t Units and Gender Specific Reference Ranges. For more information see Policy Stat Procedure [place] High Sensitivity Troponin (TNIH) and attachments. Estimated Creatinine Clearance Calc 6.26 ml/min [facility] Estimated GFR (MDRD) Amer 7 mL/min >60 [facility] Comment on above: GFR Calc Estimated GFR (MDRD) Non-Af Amer 6 mL/min >60 [facility] Comment on above: Non- GFR Calc Platelets bldOrdered By: Esteban Basilio on 03-16-2023 Platelets (Bld) [#/Vol] 300 10*3/uL 150-450 [facility] Serum or plasma calcium destini urement (mass/volume)Ordered By: Salas Basilio on 03-16-2023 Calcium [Mass/Vol] 9.1 mg/dL 8.5-10.1 [facility] Serum or plasma creatinine m easurement (mass/volume)Ordered By: Salas Basilio on 03-16-2023 Creatinine [Mass/Vol] 7.75 mg/dL 0.55-1.02 [facility] Comment on above: Critical Result(s) C alled at: 15:17:43 03/16/2023 by: FRANKIE VALENCIA TO RENÉE VELASQUEZ. Results read back by same.The validity of the calculated GFR & GFRAA in patients over 70 years has not been determined. Clinical correlation is essential. Serum or plasma urea nitroge n measurement (mass/volume)Ordered By: Salas Basilio on 03-16-2023 Urea nitrogen [Mass/Vol] 26 mg/dL 7-18 [facility] Thin prep Papanicolaou smear with manual screeningOrdered By: Salas Basilio on 03-16-2023 Thin prep Papanicolaou smear with manual screening 7 5- [facility] CNPNon 03-08-2023 CNPN Telephone (PODCCP) SPENCER REDDING ([id number]) 1965 F Date Time Provider Department 03/08/23 ANDREA MADDEN During your visit today, we recorded the following information about you: Andrea Madden RN 03/08/2023 3:36 PM Signed PATIENT INFORMATION Record ID: [id number] Patient Name: Spencer Redding [facility]: [facility] [place]: [facility] [place] Attending: Christiano Huntley Center: Urology INSTRUCTIONS All Clear If patient has a Physician- transfer to Appointment Center at [phone] at end of script If patient has [facility] Physician- transfer to [place] [facility] [phone] (CARE) If patient has a community physician, transfer to [facility]; Any other physician recommend patient follow-up with their physician at the end of script All Clear All Clear All Clear SURVEY INFORMATION Medical/Nurse Manager Winter: Andrea Madden 1. Your discharge instructions are [...] Reason for Visit: Follow Up Phone Call [2554] Follow Up [171] Cmt: All Clear Prescriptions [...] Status:Closed by ANDREA MADDEN on 03/08/23 Normal [facility] Basic metabolic 2000 panelon 03-03-2023 Anion gap [Moles/Vol] 9 mmol/L Normal 9-18 [facility] Comment on above: Order Comment: Speci men Type: BLOOD SPECIMENOrdering Facility: [facility] Address: [address] [address] Performed By: #### 2 4321-2 ####[facility] LABORATORYCLIA [id number] [place] [address] [place] Calcium [Mass/Vol] 7.6 mg/dL Low 8.5-10.2 [facility] Comment on above: Order Comment: Speci men Type: BLOOD SPECIMENOrdering Facility: [facility] Address: [address] [address] Performed By: #### 2 4321-2 ####[facility] LABORATORYCLIA [id number] [place] [address] [place] Chloride [Moles/Vol] 96 mmol/L Low 97-105 [facility] Comment on above: Order Comment: Speci men Type: BLOOD SPECIMENOrdering Facility: [facility] Address: [address] [address] Performed By: #### 2 4321-2 ####[facility] LABORATORYCLIA [id number] [address] STATES OF [facility] CO2 [Moles/Vol] 26 mmol/L Normal 22-30 [facility] Comment on above: Order Comment: Speci men Type: BLOOD SPECIMENOrdering Facility: [facility] Address: [address] [place] [address] Performed By: #### 2 4321-2 ####[facility] LABORATORYCLIA [id number] [address] STATES OF [facility] Creatinine [Mass/Vol] 8.32 mg/dL High 0.58-0.96 [facility] Comment on above: Order Comment: Speci men Type: BLOOD SPECIMENOrdering Facility: [facility] Address: [address] [place] [address] Performed By: #### 2 4321-2 ####[facility]OSPITALIA [id number] [address] Creatinine and Glomerular filtration rate.predicted panel (S/P/Bld) 5 mL/min/1.73m??? Low >=60 [facility] Comment on above: Order Comment: Speci men Type: BLOOD SPECIMENOrdering Facility: [facility] Address: [address] [place] [address] Result Comment: Lynne mated Glomerular Filtration Rate [...] actual GFR. Performed By: #### 2 4321-2 ####[facility]ATORYCLIA [id number] [address] Glucose [Mass/Vol] 101 mg/dL High 74-99 [facility] Comment on above: Order Comment: Speci men Type: BLOOD SPECIMENOrdering Facility: [facility] Address: [address] [place] [address] Result Comment: The [place] Diabetes Association (ADA) provides guidance for cutoff [...] Standards of Medical Care in Diabetes 2016, [place] [employer]. Diabetes Care. 2016.39(Suppl 1). Performed By: #### 2 4321-2 ####[facility]ORATORYCLIA [id number] [address] OF [facility] Potassium [Moles/Vol] 4.1 mmol/L Normal 3.7-5.1 [facility] Comment on above: Order Comment: Speci men Type: BLOOD SPECIMENOrdering Facility: [facility] Address: [address] [address] Performed By: #### 2 4321-2 ####[facility]ATORYCLIA [id number] [address] Sodium [Moles/Vol] 131 mmol/L Low 136-144 [facility] Comment on above: Order Comment: [facility] Type: BLOOD SPECIMENOrdering Facility: [facility] Address: [address] [address] Performed By: #### 2 4321-2 ####[facility]ATORYCLIA [id number] [address] Urea nitrogen [Mass/Vol] 30 mg/dL High 7-21 [facility] Comment on above: Order Comment: Speci men Type: BLOOD SPECIMENOrdering Facility: [facility] Address: [address] [address] Performed By: #### 2 4321-2 ####[facility]ATORYCLIA [id number] [address] CBC panel Auto (Bld)on 03-03 Erythrocyte distribution width (RBC) [Ratio] 19.5 % High 11.5-15.0 [facility] Comment on above: Order Comment: Speci men Type: BLOOD SPECIMEN [facility] Address: [address] [place] [address] Performed By: #### 5 8410-2 #### [facility] CLIA [id number] [address] Hematocrit (Bld) [Volume fraction] 41.9 % Normal 36.0-46.0 [facility] Comment on above: Order Comment: Speci men Type: BLOOD SPECIMEN [facility] Address: [address] [place] [address] Performed By: #### 5 8410-2 #### [facility] CLIA [id number] [address] Hemoglobin (Bld) [Mass/Vol] 12.5 g/dL Normal 11.5-15.5 [facility] Comment on above: Order Comment: Speci men Type: BLOOD SPECIMEN [facility] Address: [address] [place] [address] Performed By: #### 5 8410-2 #### [facility] CLIA [id number] [address] MCH (RBC) [Entitic mass] 26.0 pg Normal 26.0-34.0 [facility] Comment on above: Order Comment: Speci men Type: BLOOD SPECIMEN [facility] Address: [address] [place] [address] Performed By: #### 5 8410-2 #### [facility] CLIA [id number] [address] MCHC (RBC) [Mass/Vol] 29.8 g/dL Low 30.5-36.0 [facility] Comment on above: Order Comment: Speci men Type: BLOOD SPECIMEN [facility] Address: [address] [address] Performed By: #### 5 8410-2 #### [facility] CLIA [id number] [address] MCV (RBC) [Entitic vol] 87.3 fL Normal 80.0-100.0 [facility] Comment on above: Order Comment: Speci men Type: BLOOD SPECIMEN [facility] Address: [address] [address] Performed By: #### 5 8410-2 #### [facility] CLIA [id number] [address] Nucleated RBC (Bld) [#/Vol] 10*3/uL Normal <0.01 [facility] Comment on above: Order Comment: Speci men Type: BLOOD SPECIMEN [facility] Address: [address] [address] Performed By: #### 5 8410-2 #### [facility] CLIA [id number] [address] Platelet mean volume (Bld) [Entitic vol] 9.1 fL Normal 9.0-12.7 [facility] Comment on above: Order Comment: Speci men Type: BLOOD SPECIMEN [facility] Address: [address] [address] Performed By: #### 5 8410-2 #### [facility] CLIA [id number] [address] Platelets (Bld) [#/Vol] 210 10*3/uL Normal 150-400 [facility] Comment on above: Order Comment: Speci men Type: BLOOD SPECIMEN [facility] Address: [address] [address] Performed By: #### 5 8410-2 #### [facility] CLIA [id number] [address] [place] RBC (Bld) [#/Vol] 4.80 10*6/uL Normal 3.90-5.20 [facility] Comment on above: Order Comment: Speci men Type: BLOOD SPECIMEN [facility] Address: [address] [address] Performed By: #### 5 8410-2 #### [facility] CLIA [id number] [address] WBC (Bld) [#/Vol] 7.76 10*3/uL Normal 3.70-11.00 [facility] Comment on above: Order Comment: Speci men Type: BLOOD SPECIMEN [facility] Address: [address] [address] Performed By: #### 5 8410-2 #### [facility] CLIA [id number] [address] CNDSon 03-03-2023 CNDS HNO ID: [id number] Author: Christiano Huntley MD Service: Urology Author [...] Medications These medications were sent to e- [facility]/pharmacy #[id number] [place] [address] [address] [facility]. - [phone] [facility] [id number] [address] [facility] [address] docusate sodium 100 mg capsule oxyCODONE-acetaminophen 5-325 [...] as documented in the resident's note. Normal [facility] Basic metabolic 2000 panelon 03-02-2023 Anion gap [Moles/Vol] 14 mmol/L Normal 9-18 [facility] Comment on above: Order Comment: Speci men Type: BLOOD SPECIMENOrdering Facility: [facility] Address: [address] [place] [id number] Performed By: #### 2 4321-2 ####[facility]ATORYCLIA [id number] [address] [place] Calcium [Mass/Vol] 7.4 mg/dL Low 8.5-10.2 [facility] Comment on above: Order Comment: Speci men Type: BLOOD SPECIMENOrdering Facility: [facility] Address: [address] [place] [address] Performed By: #### 2 4321-2 ####[facility]ATORYCLIA [id number] [place] [address] [place] Chloride [Moles/Vol] 93 mmol/L Low 97-105 [facility] Comment on above: Order Comment: Speci men Type: BLOOD SPECIMENOrdering Facility: [facility] Address: [address] [place] [address] Performed By: #### 2 4321-2 ####[facility]ATORYCLIA [id number] [address] [place] CO2 [Moles/Vol] 26 mmol/L Normal 22-30 [facility] Comment on above: Order Comment: Speci men Type: BLOOD SPECIMENOrdering Facility: [facility] Address: [address] [place] [address] Performed By: #### 2 4321-2 ####[facility]ATORYCLIA [id number] [address] [place] Creatinine [Mass/Vol] 10.27 mg/dL High 0.58-0.96 [facility] Comment on above: Order Comment: Speci men Type: BLOOD SPECIMENOrdering Facility: [facility] Address: [address] [place] [address] Performed By: #### 2 4321-2 ####[facility]ATORYCLIA [id number] [address] Creatinine and Glomerular filtration rate.predicted panel (S/P/Bld) 4 mL/min/1.73m??? Low >=60 [facility] Comment on above: Order Comment: Speci men Type: BLOOD SPECIMENOrdering Facility: [facility] Address: [address] [phone] Result Comment: Lynne mated Glomerular Filtration Rate [...] actual GFR. Performed By: #### 2 4321-2 ####[facility]ATORYCLIA [id number] [place] [address] [place] Glucose [Mass/Vol] 99 mg/dL Normal 74-99 [facility] Comment on above: Order Comment: Marielos siu Type: BLOOD SPECIMENOrdering Facility: [facility] Address: [address] [place] [address] Result Comment: The [place] Diabetes Association (ADA) provides guidance for cutoff [...] Standards of Medical Care in Diabetes 2016, [place] [employer]. Diabetes Care. 2016.39(Suppl 1). Performed By: #### 2 4321-2 ####[facility]ATORYCLIA [id number] [place] [address] [place] Potassium [Moles/Vol] 4.0 mmol/L Normal 3.7-5.1 [facility] Comment on above: Order Comment: Marielos siu Type: BLOOD SPECIMENOrdering Facility: [facility] Address: [address] [phone] Performed By: #### 2 4321-2 ####[facility]ATORYCLIA [id number] [address] [place] Sodium [Moles/Vol] 133 mmol/L Low 136-144 [facility] Comment on above: Order Comment: Speci men Type: BLOOD SPECIMENOrdering Facility: [facility] Address: [address] [place] [address] Performed By: #### 2 4321-2 ####[facility]ATORYCLIA [id number] [address] [place] Urea nitrogen [Mass/Vol] 34 mg/dL High 7-21 [facility] Comment on above: Order Comment: Speci men Type: BLOOD SPECIMENOrdering Facility: [facility] Address: [address] [place] [address] Performed By: #### 2 4321-2 ####[facility]ATORYCLIA [id number] [address] [place] CBC panel Auto (Bld)on 03-02 Erythrocyte distribution width (RBC) [Ratio] 19.8 % High 11.5-15.0 [facility] Comment on above: Order Comment: Speci men Type: BLOOD SPECIMENOrdering Facility: [facility] Address: [address] [place] [address] Performed By: #### 5 8410-2 ####[facility]ATORYCLIA [id number] [address] [place] Hematocrit (Bld) [Volume fraction] 39.9 % Normal 36.0-46.0 [facility] Comment on above: Order Comment: Speci men Type: BLOOD SPECIMENOrdering Facility: [facility] Address: [address] [place] [address] Performed By: #### 5 8410-2 ####[facility]ATORYCLIA [id number] [address] [place] Hemoglobin (Bld) [Mass/Vol] 12.0 g/dL Normal 11.5-15.5 [facility] Comment on above: Order Comment: Speci men Type: BLOOD SPECIMENOrdering Facility: [facility] Address: [address] [place], [place] [phone] Performed By: #### 5 8410-2 ####[facility]ATORYCLIA [id number] [address] MCH (RBC) [Entitic mass] 25.4 pg Low 26.0-34.0 [facility] Comment on above: Order Comment: Speci men Type: BLOOD SPECIMENOrdering Facility: [facility] Address: [address] [place] [address] Performed By: #### 5 8410-2 ####[facility]ATORYCLIA [id number] [address] MCHC (RBC) [Mass/Vol] 30.1 g/dL Low 30.5-36.0 [facility] Comment on above: Order Comment: Speci men Type: BLOOD SPECIMENOrdering Facility: [facility] Address: [address] [place] [address] Performed By: #### 5 8410-2 ####[facility]ATORYCLIA [id number] [address] MCV (RBC) [Entitic vol] 84.4 fL Normal 80.0-100.0 [facility] Comment on above: Order Comment: Speci men Type: BLOOD SPECIMENOrdering Facility: [facility] Address: [address] [place] [address] Performed By: #### 5 8410-2 ####[facility]ATORYCLIA [id number] [address] Nucleated RBC (Bld) [#/Vol] 10*3/uL Normal <0.01 [facility] Comment on above: Order Comment: Speci men Type: BLOOD SPECIMENOrdering Facility: [facility] Address: [address] [place] [address] Performed By: #### 5 8410-2 ####[facility]ATORYCLIA [id number] [address] Platelet mean volume (Bld) [Entitic vol] 8.9 fL Low 9.0-12.7 [facility] Comment on above: Order Comment: Speci men Type: BLOOD SPECIMENOrdering Facility: [facility] Address: [address] [place] [address] Performed By: #### 5 8410-2 ####[facility]ORATORYCLIA [id number] [address] OF [facility] Platelets (Bld) [#/Vol] 193 10*3/uL Normal 150-400 [facility] Comment on above: Order Comment: Speci men Type: BLOOD SPECIMENOrdering Facility: [facility] Address: [address] [place] [address] Performed By: #### 5 8410-2 ####[facility]ATORYCLIA [id number] [address] RBC (Bld) [#/Vol] 4.73 10*6/uL Normal 3.90-5.20 [facility] Comment on above: Order Comment: Speci men Type: BLOOD SPECIMENOrdering Facility: [facility] Address: [address] [place] [address] Performed By: #### 5 8410-2 ####[facility]ATORYCLIA [id number] [address] WBC (Bld) [#/Vol] 7.49 10*3/uL Normal 3.70-11.00 [facility] Comment on above: Order Comment: Speci men Type: BLOOD SPECIMENOrdering Facility: [facility] Address: [address] [place] [address] Performed By: #### 5 8410-2 ####[facility]ATORYCLIA [id number] [address] NURSING PROGon 03-02-2023 NURSING PROG HNO ID: [id number] Author: Karissa Spivey, RN Service: Nursing Author Type: Registered Nurse Type: Nursing Progress Note Filed: 03/02/2023 12:39 PM Note Text: Pt bp 90/[address] Randa Reaves with urology notified. No new orders received at this time. Normal [facility] ALLIED HEALTHon 03-01-2023 ALLIED HEALTH HNO ID: [id number] Author: Sophia Bain Chaplain Service: Spiritual Care Author Type: Type: Allied Health Filed: 03/01/2023 11:28 AM Note Text: SPIRITUAL CARE PROGRESS NOTE SERVICE DATE: 03/01/2023 SERVICE TIME: 10:28 am Short visit with patient. Mrs. Redding shared that she had no need for Spiritual Care services at this time. To contact the Spiritual Care Department: Please call [phone]. SIGNATURE: Chaplain Mark PATIENT NAME: Spencer Redding DATE: March 01, 2023 TIME: 11:27 AM PAGER/CONTACT #: [phone] Normal [facility] Basic metabolic 2000 panelon 03-01-2023 Anion gap [Moles/Vol] 18 mmol/L Normal 9-18 [facility] Comment on above: Order Comment: Speci men Type: BLOOD SPECIMENOrdering Facility: [facility] Address: [address] [place] [address] Performed By: #### 2 432-2, 27701-08 ####[facility]ATORYCLIA [id number] [place] [address] [place] Calcium [Mass/Vol] 8.2 mg/dL Low 8.5-10.2 [facility] Comment on above: Order Comment: Speci men Type: BLOOD SPECIMENOrdering Facility: [facility] Address: [address] [place] [address] Performed By: #### 2 432-2, 27701-08 ####[facility]ATORYCLIA [id number] [place] [address] [place] Chloride [Moles/Vol] 98 mmol/L Normal 97-105 [facility] Comment on above: Order Comment: Speci men Type: BLOOD SPECIMENOrdering Facility: [facility] Address: [address] [place] [address] Performed By: #### 2 432-2, 277- ####[facility]ATORYCLIA [id number] [address] [place] CO2 [Moles/Vol] 23 mmol/L Normal 22-30 [facility] Comment on above: Order Comment: Marielos siu Type: BLOOD SPECIMENOrdering Facility: [facility] Address: [address] [address] Performed By: #### 2 4321-2, 2777- ####[facility] [id number] [address] OF [facility] Creatinine [Mass/Vol] 12.22 mg/dL High 0.58-0.96 [facility] Comment on above: Order Comment: Marielos siu Type: BLOOD SPECIMENOrdering Facility: [facility] Address: [address] [place] [address] Performed By: #### 2 432-2, 277- ####[facility]PITALIA [id number] [address] Creatinine and Glomerular filtration rate.predicted panel (S/P/Bld) 3 mL/min/1.73m??? Low >=60 [facility] Comment on above: Order Comment: Marielos siu Type: BLOOD SPECIMENOrdering Facility: [facility] Address: [address] [place] [address] Result Comment: Lynne mated Glomerular Filtration Rate [...] reflect actual GFR. Performed By: #### 2 4321-2, 2777- ####[facility]ATORYCLIA [id number] [address] Glucose [Mass/Vol] 95 mg/dL Normal 74-99 [facility] Comment on above: Order Comment: Marielos siu Type: BLOOD SPECIMENOrdering Facility: [facility] Address: [address] [place] [address] Result Comment: The [place] Diabetes Association (ADA) provides guidance for cutoff [...] Standards of Medical Care in Diabetes 2016, [place] [employer]. Diabetes Care. 2016.39(Suppl 1). Performed By: #### 2 432-2, 2776-07 ####[facility]ATORYCLIA [id number] [place] [address] [place] Potassium [Moles/Vol] 4.8 mmol/L Normal 3.7-5.1 [facility] Comment on above: Order Comment: Speci men Type: BLOOD SPECIMENOrdering Facility: [facility] Address: [address] [address] Performed By: #### 2 4320-08, 2776-07 ####[facility]ATORYCLIA [id number] [place] [address] [place] Sodium [Moles/Vol] 139 mmol/L Normal 136-144 [facility] Comment on above: Order Comment: Speci men Type: BLOOD SPECIMENOrdering Facility: [facility] Address: [address] [address] Performed By: #### 2 43207-12, 2776-07 ####[facility]ATORYCLIA [id number] [place] [address] [place] Urea nitrogen [Mass/Vol] 41 mg/dL High 7-21 [facility] Comment on above: Order Comment: Speci men Type: BLOOD SPECIMENOrdering Facility: [facility] Address: [address] [address] Performed By: #### 2 43207-12, 2776-07 ####[facility]ATORYCLIA [id number] [address] STATES OF [facility] CBC panel Auto (Bld)on 03-01 Erythrocyte distribution width (RBC) [Ratio] 19.9 % High 11.5-15.0 [facility] Comment on above: Order Comment: Speci men Type: BLOOD SPECIMENOrdering Facility: [facility] Address: [address] [place] [address] Performed By: #### 5 8410-2 ####[facility]ATORYCLIA [id number] [address] Hematocrit (Bld) [Volume fraction] 44.6 % Normal 36.0-46.0 [facility] Comment on above: Order Comment: Speci men Type: BLOOD SPECIMENOrdering Facility: [facility] Address: [address] [place] [address] Performed By: #### 5 8410-2 ####[facility]ATORYCLIA [id number] [address] OF [facility] Hemoglobin (Bld) [Mass/Vol] 13.6 g/dL Normal 11.5-15.5 [facility] Comment on above: Order Comment: Speci men Type: BLOOD SPECIMENOrdering Facility: [facility] Address: [address] [place] [address] Performed By: #### 5 8410-2 ####[facility]ORATORYCLIA [id number] [address] STATES [facility] MCH (RBC) [Entitic mass] 26.5 pg Normal 26.0-34.0 [facility] Comment on above: Order Comment: Speci men Type: BLOOD SPECIMENOrdering Facility: [facility] Address: [address] [place] [address] Performed By: #### 5 8410-2 ####[facility]ATORYCLIA [id number] [address] [place] MCHC (RBC) [Mass/Vol] 30.5 g/dL Normal 30.5-36.0 [facility] Comment on above: Order Comment: Speci men Type: BLOOD SPECIMENOrdering Facility: [facility] Address: [address] [place] [address] Performed By: #### 5 8410-2 ####[facility]ATORYCLIA [id number] [address] [place] MCV (RBC) [Entitic vol] 86.9 fL Normal 80.0-100.0 [facility] Comment on above: Order Comment: Speci men Type: BLOOD SPECIMENOrdering Facility: [facility] Address: [address] [place] [address] Performed By: #### 5 8410-2 ####[facility]ATORYCLIA [id number] [address] [place] Nucleated RBC (Bld) [#/Vol] 10*3/uL Normal <0.01 [facility] Comment on above: Order Comment: Speci men Type: BLOOD SPECIMENOrdering Facility: [facility] Address: [address] [address] Performed By: #### 5 8410-2 ####[facility]ATORYCLIA [id number] [address] [place] Platelet mean volume (Bld) [Entitic vol] 9.8 fL Normal 9.0-12.7 [facility] Comment on above: Order Comment: Speci men Type: BLOOD SPECIMENOrdering Facility: [facility] Address: [address] [place] [address] Performed By: #### 5 8410-2 ####[facility]ATORYCLIA [id number] [address] [place] Platelets (Bld) [#/Vol] 227 10*3/uL Normal 150-400 [facility] Comment on above: Order Comment: Speci men Type: BLOOD SPECIMENOrdering Facility: [facility] Address: [address] [place] [address] Performed By: #### 5 8410-2 ####[facility]ATORYCLIA [id number] [address] STATES OF [facility] RBC (Bld) [#/Vol] 5.13 10*6/uL Normal 3.90-5.20 [facility] Comment on above: Order Comment: Speci men Type: BLOOD SPECIMENOrdering Facility: [facility] Address: [address] [place] [address] Performed By: #### 5 8410-2 ####[facility] LABORATORYCLIA [id number] [address] WBC (Bld) [#/Vol] 6.21 10*3/uL Normal 3.70-11.00 [facility] Comment on above: Order Comment: Speci men Type: BLOOD SPECIMENOrdering Facility: [facility] Address: [address] [place] [address] Performed By: #### 5 8410-2 ####[facility] LABORATORYCLIA [id number] [address] CONSULTon 03-01-2023 CONSULT HNO ID: [id number] Author: Maurice Acevedo DO Service: Nephrology Author Type: Physician Type: Consults Filed: 03/01/2023 2:31 PM Note Text: NEPHROLOGY CONSULT NOTE PATIENT NAME: Spencer Redding ROOM: [place] [address] 1* SERVICE DATE: 03/01/2023 SERVICE TIME: 2:05 PM LENGTH OF STAY: 1 day(s) REFERRING PHYSICIAN: Christiano Huntley MD PRIMARY CARE PHYSICIAN: Trevor Vieyra MD OUTPATIENT VACUUM FRAME OPERATOR: Keyanna Castellanos MD Subjective/HPI Spencer Redding is a 57 year old female with PMHx significant for ESRD on HD (per MWF schedule at [facility]), ADPKD (with prior history of right nephrectomy in February 2022 2/2 hematuria), prior HTN (now with chronic hypotension on midodrine and fludrocortisone), HLD, CAD, VTach (s/p AICD placement), hyperparathyroidism (with history of parathyroidectomy), anemia, history of VTE (prior DVT), arthritis, anxiety, depression, obesity who initially presented to [facility] on 02/28/23 for scheduled surgery and [...] disease) on dialysis (HCC) MWF/[facility] in [place] [phone] History of coronary artery stent placement 04/22/2016 Hx of cardiovascular stress test 2016 negative for ischemia, EF 70% Hx of echocardiogram 02/2017 EF 60% moderate LVH, no valvular abnormalities- received from [facility]- on hard chart Hx of sudden [...] Allergies: ALLERGIES Allergen Reactions Penicillins Hives, Rash [place] Vomiting, Rash Etodolac Rash Sevelamer GI Upset Sulfamethoxazole-Tr* GI Upset, Rash Tramadol I (more content not included)... Normal [facility] Phosphate SerPl-mCncon 03-01 Phosphate [Mass/Vol] 7.5 mg/dL High 2.7-4.8 [facility] Comment on above: Order Comment: Speci men Type: BLOOD SPECIMENOrdering Facility: [facility] Address: [address] [place] [phone] Performed By: #### 2 4321-2, 2777-1 ####[facility] LABORATORYCLIA [id number] [place] [address] [place] ANES POSTPROC EVALon 023 ANES POSTPROC EVAL HNO ID: [id number] Author: Jeremy Scott DO Service: Anesthesiology Author Type: Physician Type: Anesthesia Postprocedure Evaluation Filed: 02/28/2023 5:35 PM Note Text: POST ANESTHESIA EVALUATION NOTE : 1965 Procedure Summary Date: 02/28/23 Room / Location: [place] Anesthesia Start: 124 Anesthesia Stop: 170 Procedure: XI ROBOTIC LAPAROSCOPIC NEPHRECTOMY RADICAL (Left: [...] February 28, 2023 TIME: 5:35 PM CSN: [id number] [facility] ANES PRE-OPon 02-28-2023 ANES PRE-OP HNO ID: [id number] Author: Jeremy Scott DO Service: Anesthesiology Author Type: Physician Type: Anesthesia Preprocedure Evaluation Filed: 02/28/2023 5:34 PM Note Text: ANESTHESIOLOGY DAY OF SURGERY NOTE : 1965 Procedure Information Anesthesia Start Date/Time: 02/28/23 1242 Procedure: XI ROBOTIC LAPAROSCOPIC NEPHRECTOMY RADICAL (Left: Kidney) Location: [place] Surgeons: Chrsitiano Huntley MD Estimated body mass index is [...] February 28, 2023 TIME: 5:33 PM CSN: [id number] Normal [facility] Basic metabolic 2000 panelon 02-28-2023 Anion gap [Moles/Vol] 16 mmol/L Normal 9-18 [facility] Comment on above: Order Comment: Speci men Type: BLOOD SPECIMENOrdering Facility: [facility] Address: [address] [address] Performed By: #### 2 4321-2 ####[facility] LABORATORYCLIA [id number] [address] [place] Calcium [Mass/Vol] 9.4 mg/dL Normal 8.5-10.2 [facility] Comment on above: Order Comment: Speci men Type: BLOOD SPECIMENOrdering Facility: [facility] Address: [address] [address] Performed By: #### 2 4321-2 ####[facility] LABORATORYCLIA [id number] [place] [address] [place] Chloride [Moles/Vol] 96 mmol/L Low 97-105 [facility] Comment on above: Order Comment: Speci men Type: BLOOD SPECIMENOrdering Facility: [facility] Address: [address] [place] [address] Performed By: #### 2 4321-2 ####[facility] LABORATORYCLIA [id number] [place] [address] [place] CO2 [Moles/Vol] 26 mmol/L Normal 22-30 [facility] Comment on above: Order Comment: Speci men Type: BLOOD SPECIMENOrdering Facility: [facility] Address: [address] [place] [address] Performed By: #### 2 4321-2 ####[facility] LABORATORYCLIA [id number] [address] [place] Creatinine [Mass/Vol] 11.91 mg/dL High 0.58-0.96 [facility] Comment on above: Order Comment: Speci men Type: BLOOD SPECIMENOrdering Facility: [facility] Address: [address] [place] [address] Performed By: #### 2 4321-2 ####[facility] LABORATORYCLIA [id number] [address] [place] Creatinine and Glomerular filtration rate.predicted panel (S/P/Bld) 3 mL/min/1.73m??? Low >=60 [facility] Comment on above: Order Comment: Marielos siu Type: BLOOD SPECIMENOrdering Facility: [facility] Address: [address] [place] [address] Result Comment: Lynne mated Glomerular Filtration Rate [...] actual GFR. Performed By: #### 2 4321-2 ####[facility] LABORATORYCLIA [id number] [place] [address] [place] Glucose [Mass/Vol] 86 mg/dL Normal 74-99 [facility] Comment on above: Order Comment: Marielos siu Type: BLOOD SPECIMENOrdering Facility: [facility] Address: [address] [place] [address] Result Comment: The [place] Diabetes Association (ADA) provides guidance for cutoff [...] Standards of Medical Care in Diabetes 2016, [place] [employer] Association. Diabetes Care. 2016.39(Suppl 1). Performed By: #### 2 4321-2 ####[facility] LABORATORYCLIA [id number] [place] [address] [place] Potassium [Moles/Vol] 4.7 mmol/L Normal 3.7-5.1 [facility] Comment on above: Order Comment: Marielos siu Type: BLOOD SPECIMENOrdering Facility: [facility] Address: [address] [place] [address] Performed By: #### 2 4321-2 ####[facility] LABORATORYCLIA [id number] [address] [place] Sodium [Moles/Vol] 138 mmol/L Normal 136-144 [facility] Comment on above: Order Comment: Speci men Type: BLOOD SPECIMENOrdering Facility: [facility] Address: [address] [place] [address] Performed By: #### 2 4321-2 ####[facility] LABORATORYCLIA [id number] [address] [place] Urea nitrogen [Mass/Vol] 37 mg/dL High 7-21 [facility] Comment on above: Order Comment: Speci men Type: BLOOD SPECIMENOrdering Facility: [facility] Address: [address] [place] [address] Performed By: #### 2 4321-2 ####[facility] LABORATORYCLIA [id number] [address] [place] CBC panel Auto (Bld)on 02-28 Erythrocyte distribution width (RBC) [Ratio] 19.9 % High 11.5-15.0 [facility] Comment on above: Order Comment: Speci men Type: BLOOD SPECIMENOrdering Facility: [facility] Address: [address] [place] [address] Performed By: #### 5 8410-2 ####[facility] LABORATORYCLIA [id number] [address] [place] Hematocrit (Bld) [Volume fraction] 50.7 % High 36.0-46.0 [facility] Comment on above: Order Comment: Speci men Type: BLOOD SPECIMENOrdering Facility: [facility] Address: [address] [place] [address] Performed By: #### 5 8410-2 ####[facility] LABORATORYCLIA [id number] [address] [place] Hemoglobin (Bld) [Mass/Vol] 15.3 g/dL Normal 11.5-15.5 [facility] Comment on above: Order Comment: Speci men Type: BLOOD SPECIMENOrdering Facility: [facility] Address: [address] [place] [address] Performed By: #### 5 8410-2 ####[facility] LABORATORYCLIA [id number] [address] MCH (RBC) [Entitic mass] 25.7 pg Low 26.0-34.0 [facility] Comment on above: Order Comment: Speci men Type: BLOOD SPECIMENOrdering Facility: [facility] Address: [address] [place] [address] Performed By: #### 5 8410-2 ####[facility] LABORATORYCLIA [id number] [address] MCHC (RBC) [Mass/Vol] 30.2 g/dL Low 30.5-36.0 [facility] Comment on above: Order Comment: Speci men Type: BLOOD SPECIMENOrdering Facility: [facility] Address: [address] [place] [address] Performed By: #### 5 8410-2 ####[facility] LABORATORYCLIA [id number] [address] MCV (RBC) [Entitic vol] 85.2 fL Normal 80.0-100.0 [facility] Comment on above: Order Comment: Speci men Type: BLOOD SPECIMENOrdering Facility: [facility] Address: [address] [place] [address] Performed By: #### 5 8410-2 ####[facility] LABORATORYCLIA [id number] [address] Nucleated RBC (Bld) [#/Vol] 10*3/uL Normal <0.01 [facility] Comment on above: Order Comment: Speci men Type: BLOOD SPECIMENOrdering Facility: [facility] Address: [address] [place] [address] Performed By: #### 5 8410-2 ####[facility] LABORATORYCLIA [id number] [address] [place] Platelet mean volume (Bld) [Entitic vol] 9.3 fL Normal 9.0-12.7 [facility] Comment on above: Order Comment: Speci men Type: BLOOD SPECIMENOrdering Facility: [facility] Address: [address] [place] [address] Performed By: #### 5 8410-2 ####[facility] LABORATORYCLIA [id number] [address] [place] Platelets (Bld) [#/Vol] 264 10*3/uL Normal 150-400 [facility] Comment on above: Order Comment: Speci men Type: BLOOD SPECIMENOrdering Facility: [facility] Address: [address] [place] [address] Performed By: #### 5 8410-2 ####[facility] LABORATORYCLIA [id number] [address] RBC (Bld) [#/Vol] 5.95 10*6/uL High 3.90-5.20 [facility] Comment on above: Order Comment: Speci men Type: BLOOD SPECIMENOrdering Facility: [facility] Address: [address] [place] [address] Performed By: #### 5 8410-2 ####[facility] LABORATORYCLIA [id number] [address] WBC (Bld) [#/Vol] 6.35 10*3/uL Normal 3.70-11.00 [facility] Comment on above: Order Comment: Speci men Type: BLOOD SPECIMENOrdering Facility: [facility] Address: [address] [place] [address] Performed By: #### 5 8410-2 ####[facility] LABORATORYCLIA [id number] [address] Claudia 02-28-2023 TRENT Telephone (UROLAE) SPENCER REDDING ([id number]) 1965 F Date Time Provider Department 02/28/23 [...] Encounter Status:Closed by CHRISTIANO HUNTLEY on 02/28/23 [facility] NURSING PROGon 02-28-2023 NURSING PROG HNO ID: [id number] Author: Veronica Leon, RN Service: Nursing Author Type: Registered Nurse Type: Nursing Progress Note Filed: 02/28/2023 8:58 PM Note Text: Notified Marlon Francis MD that patient is declining continual IV fluids and that the patient takes all her medications at night. Okay to retime medications for bedtime. Will monitor vitals without fluids given patients BP was running low. [facility] NURSING PROG HNO ID: [id number] Author: Irma Freitas RN Service: Nursing Author Type: Registered Nurse Type: Nursing Progress Note Filed: 02/28/2023 12:31 PM Note Text: Notified edr carrillo prior to huddle that pt has icd [employer]... no pacing ability just defib. Recommendations to deactivate it pt is sinus rhythm . [facility] NURSING PROG HNO ID: [id number] Author: Irma Freitas RN Service: Nursing Author Type: Registered Nurse Type: Nursing Progress Note Filed: 02/28/2023 12:21 PM Note Text: Device cflinic notified and recommends deactivating ICD pt has under lying rhytm of sinus no pacing . [place] [facility] OPERATIVE NOon 02-28-2023 OPERATIVE NO HNO ID: [id number] Author: Christiano Huntley MD Service: Urology Author Type: Physician Type: Operative Report Filed: 03/01/2023 9:10 AM Note Text: OPERATIVE/PROCEDURE REPORT LOG ID: [id number] SURGERY/PROCEDURE DATE: 02/28/2023 INCISION/PROCEDURE START TIME: 1:11 PM INCISION CLOSE/PROCEDURE END TIME: 4:50 PM SURGEON(S)/PROCEDURALIS T(S) AND TRACK MOVING MACHINE OPERATOR(S): Surgeon(s) and Role: * Christiano Huntley MD - Primary * Sandip Allen MD - Resident - Assisting Websphere Architect: Salma Almodovar, ; Paul Cherry (), SA; Frankie Ely (), SA SURGERY/PROCEDURE(S): Robotic assisted left radical nephrectomy PRE-OP/PRE-PROCEDURE [...] with 4-0 (more content not included)... Normal [facility] PT panel Coag (PPP)on 2022 INR Coag (PPP) [Relative time] 1.2 {INR} Normal 0.9-1.3 [facility] Comment on above: Order Comment: Speci men Type: BLOOD SPECIMENOrdering Facility: [facility] Address: [address] [place] [phone] Result Comment: Amna min K Antagonist (VKA) Therapeutic Range: INR 2 to 3 (Target INR of 2.5) Note: For patients treated with VKA drugs, such as warfarin, the [place] [employer] 2012 Guideline recommends [...] GH, et al. Chest 2012, 141:7S-47S Vladislav RA et al. [facility] 2017, 70: 252-289 Performed By: #### 3 4528-0 ####[facility] LABORATORYCLIA [id number] [place] [address] [place] PT Coag (PPP) [Time] 12.3 s Normal 9.7-13.0 [facility] Comment on above: Order Comment: Spectraci siu Type: BLOOD SPECIMENOrdering Facility: [facility] Address: [address] [place] [address] Performed By: #### 3 4528-0 ####[facility] LABORATORYCLIA [id number] [address] STATES OF [facility] SURGICAL PATHOLOGYon 023 CASE REPORT Normal [facility] Comment on above: Order Comment: Speci men Type: TISSUE SPECIMENOrdering Facility: [facility] Address: [address] [place] [address] Result Comment: Surg ical Pathology Report Case: [id number] Authorizing Provider: Christiano Huntley MD Collected: 02/28/2023 02:15 PM Ordering Location[place] [facility] Received: 03/01/2023 09:08 AM Pathologist: Janneth Galdamez MD Specimen: KIDNEY RADICAL RESECTION LEFT, left kidney for permanent Performed By: #### S ####[facility] LABORATORYCLIA [id number] [address] CLINICAL HISTORY Normal [facility] Comment on above: Order Comment: Speci men Type: TISSUE SPECIMENOrdering Facility: [facility] Address: [address] [place] [address] Result Comment: Pre- op diagnosis: Polycystic kidney [Q61.3] Performed By: #### S ####[facility] LABORATORYCLIA [id number] [address] FINAL DIAGNOSIS Normal [facility] Comment on above: Order Comment: Speci men Type: TISSUE SPECIMENOrdering Facility: [facility] Address: [address] [place] [address] Result Comment: Merecdes islas, left, radical nephrectomy: - Benign kidney with numerous cysts, global sclerosis, tubular atrophy, interstitial fibrosis, chronic inflammation and nephrocalcinosis, clinically polycystic kidney disease. - Vascular calcifications. - Unremarkable margins of resection. Performed By: #### S ####[facility] LABORATORYCLIA [id number] [address] FINAL PERFORMING LAB Normal [facility] Comment on above: Order Comment: Speci men Type: TISSUE SPECIMENOrdering Facility: [facility] Address: [address] [place] [address] Result Comment: Diag nostic interpretation performed at [facility], [address] [place] [address] CLIA# [id number] Director Of Graduate Medical Education: Trevor Curry M.D. Performed By: #### S ####[facility] LABORATORYCLIA [id number] [address] GROSS DESCRIPTION Normal [facility] Comment on above: Order Comment: Speci men Type: TISSUE SPECIMENOrdering Facility: [facility] Address: [address] [place] [address] Result Comment: Mercedes ISLAS RADICAL RESECTION LEFT [...] dilated. No tumor masses are grossly identified. Edger Machine Helper sections are submitted following decalcification in 5 cassettes as follows: A1 vascular and ureteral margins A 2-4 cystic lesions and intervening renal parenchyma A5 pelvic mucosa Gross examination performed at [facility], [address] [place] [address] CLIA# [id number] [facility] March 01, 2023 11:00 AM Performed By: #### S ####[facility] LABORATORYCLIA [id number] [address] OF [facility] Claudia 02-18-2023 CNPN Telephone (UROLAE) SPENCER REDDING ([id number]) 1965 F Date Time Provider Department 02/18/23 [...] Date Reviewed: 02/18/2023 Reviewed by: Licha Hoffmann APRN.COAL WHEELER - Fully Assessed Reason for Visit: Results [...] Encounter Status:Closed by LAYA ALONZO on 02/18/23 [facility] HISTORY PHYSICALon HISTORY PHYSICAL HNO ID: [id number] Author: Licha Hoffmann APRN.COAL WHEELER Service: ? Author Type: Nurse Practitioner Type: [...] receives hemodialysis Tuesday, Tuesday and Tuesday at [facility] in [place]. She has a left upper arm graft. [...] apnea. Cardiovascular: Positive for[facility] anticoagulation therapy, CAD and hypertension Patient's last office visit with portrait photographer, Dr. Garvin, was February 2023. Negative for: [...] left bel (more content not included)... Normal [facility] TYPE AND SCREEN,30 DAYon ABO O Normal [facility] Comment on above: Order Comment: Speci men Type: BLOOD SPECIMENOrdering Facility: [facility] Address: [address] [place] [phone] Performed By: #### T SCR30 ####[facility] BLOOD BANKCLIA [id number] [place] [address] [place] HISTORICAL AB SCR STATUS Negative Normal [facility] Comment on above: Order Comment: Speci men Type: BLOOD SPECIMENOrdering Facility: [facility] Address: [address] [place] [address] Performed By: #### T SCR30 ####[facility] BLOOD BANKCLIA [id number] [place] [id number] [place] Rh Nom (Bld) Negative Normal [facility] Comment on above: Order Comment: Speci men Type: BLOOD SPECIMENOrdering Facility: [facility] Address: [address] [place] [address] Performed By: #### T SCR30 ####[facility] BLOOD BANKCLIA [id number] [place] [id number] [facility] [place] NURSING PROGon 02-17-2023 NURSING PROG HNO ID: [id number] Author: Gracie Glass RN Service: ? Author Type: Registered Nurse Type: Nursing Progress Note Filed: 02/17/2023 9:05 AM Note Text: Type of Device:SICD AICD?:Yes Brand: Carweez, Magnet rate: N/A Indication: NOT INDICATED Pacemaker Dependent: No Underlying Rhythm: SINUS AT 60 Recommendations: DEACTIVATE ICD Call back number with questions: [phone] [facility] [address] ABD/PEL WO IVCONon 2022 CT ABD/PEL WO IVCON * * *Final Report* * * DATE OF EXAM: Feb 16 2023 8:49AM [facility] 0531 - CT ABD/PEL WO IVCON / [...] what appears to be a coronary stent. Tank Car Cleaner (topogram) images: No additional findings. IMPRESSION: Polycystic kidney disease. Borderline splenomegaly. Clearing Distribution Clerk: ROSY Transcribe Date/Time: Feb 17 2023 3:01P Dictated by : MYLA EASON MD This examination was interpreted and the report reviewed and electronically signed by: MYLA EASON MD on Feb 17 2023 3:09PM EST [id number] Normal [facility] CNOVon 02-10-2023 CNOV Office Visit (UROLMD ) SPENCER REDDING ([id number]) 1965 F Date Time Provider Department 02/10/23 8:45 AM CHRISTIANO HUNTLEY UROCAMILA During your visit today, we recorded the [...] Unremarkable margins of the resection. 01/28/2022: Cystoscopy: [place] appearing bladder, blood emanating from the right ureteral orifice 02/15/2020: Cystoscopy and pyelograms: (-). 2017: Coronary stents x 5 09/02/2015: Cystoscopy and pyelograms: Negative 06/27/2015: Right upper extremity fistula 07/11/2007: Left upper extremity fistula 2003: DVT without PE No results found for this basename: uglucpoc,ubilipoc,uketo npoc,usgpoc,uhbpoc,uphp oc,upropoc,uuropoc,unit poc,uwbcpo- c,ucolpoc,[facility] @[facility]@ ALLERGIES ALLERGIES Allergen Reactions Penicillins Hives, Rash [place] Vomiting, Rash Etodolac Rash Sevelamer GI Upset [...] moderate LVH, no valvular abnormalities- received from [facility]- on hard chart Hyperlipidemia Hypertension Polycystic [...] is significa (more content not included)... Normal [facility] INR in Blood by Coagulation assayOrdered By: Trevor Vieyra on 01-20-2023 INR Coag (Bld) [Relative time] 3.0 {INR} [facility] Laboratory - CoagulationOrde red By: Trevor Vieyra on 01-20-2023 PT Coag (PPP) [Time] 31.2 s 11.7-14.9 [facility] INR in Blood by Coagulation assayOrdered By: Trevor Vieyra on 12-09-2022 INR Coag (Bld) [Relative time] 2.8 {INR} [facility] Laboratory - CoagulationOrde red By: Trevor Vieyra on 12-09-2022 PT Coag (PPP) [Time] 29.5 s 11.7-14.9 [facility] INR in Blood by Coagulation assayOrdered By: Dr. Vieyra on 11-16-2022 INR Coag (Bld) [Relative time] 2.7 {INR} [facility] Laboratory - CoagulationOrde red By: Dr. Vieyra on 11-16-2022 PT Coag (PPP) [Time] 28.8 s 11.7-14.9 [facility] INR in Blood by Coagulation assayOrdered By: Dr. Vieyra on 11-04-2022 INR Coag (Bld) [Relative time] 2.4 {INR} [facility] Laboratory - CoagulationOrde red By: Dr. Vieyra on 11-04-2022 PT Coag (PPP) [Time] 25.4 s 11.7-14.9 [facility] INR in Blood by Coagulation assayOrdered By: Dr. Vieyra on 10-28-2022 INR Coag (Bld) [Relative time] 1.7 {INR} [facility] Laboratory - CoagulationOrde red By: Dr. Vieyra on 10-28-2022 PT Coag (PPP) [Time] 20.0 s 11.7-14.9 [facility] INR in Blood by Coagulation assayOrdered By: Dr. Vieyra on 10-25-2022 INR Coag (Bld) [Relative time] 1.4 {INR} [facility] Laboratory - CoagulationOrde red By: Dr. Vieyra on 10-25-2022 PT Coag (PPP) [Time] 17.1 s 11.7-14.9 [facility] INR in Blood by Coagulation assayOrdered By: Dr. Vieyra on 10-19-2022 INR Coag (Bld) [Relative time] 4.5 {INR} [facility] Comment on above: CRITICAL VALUE VERIF IED. [facility]10/19/22 1352 Qu[address] Medeiros.RESULTS READ BACK BY SAME . Laboratory - CoagulationOrde red By: Dr. Vieyra on 10-19-2022 PT Coag (PPP) [Time] 42.9 s 11.7-14.9 [facility] INR in Blood by Coagulation assayOrdered By: Dr. Vieyra on 2022 INR Coag (Bld) [Relative time] 3.5 {INR} [facility] Laboratory - CoagulationOrde red By: Dr. Vieyra on 2022 PT Coag (PPP) [Time] 35.2 s 11.7-14.9 [facility] INR in Blood by Coagulation assayOrdered By: Dr. Vieyra on 08-17-2022 INR Coag (Bld) [Relative time] 2.9 {INR} [facility] Laboratory - CoagulationOrde red By: Dr. Vieyra on 08-17-2022 PT Coag (PPP) [Time] 30.1 s 11.7-14.9 [facility] INR in Blood by Coagulation assayOrdered By: Dr. Vieyra on 07-29-2022 INR Coag (Bld) [Relative time] 1.9 {INR} [facility] Laboratory - CoagulationOrde red By: Dr. Vieyra on 07-29-2022 PT Coag (PPP) [Time] 21.7 s 11.7-14.9 [facility] Basophil percentageOrdered B y: Dr. Vieyra on 07-20-2022 Cholesterol [Mass/Vol] 167 mg/dL <[address] [facility] Comment on above: <200 mg/dL Desirable 200-240 mg/dL Borderline >240 mg/dL High Risk Triglyceride [Mass/Vol] 195 mg/dL <199 [facility] Comment on above: The drugs N-Acetylcy steine and Metamizole may falsely depress this assay.Serum Triglycerides Reference Interval Normal <150 mg/dL Borderline high 150 - 199 mg/dL High 200 - 499 mg/dL Very High > or = 500 mg/dL INR in Blood by Coagulation assayOrdered By: Dr. Vieyra on 07-20-2022 INR Coag (Bld) [Relative time] 4.7 {INR} [facility] Comment on above: CRITICAL VALUE VERIF IED. CALLED TO KIYA APODACA (PLAB)07/20/22 1528 Rl Gorman.RESULTS READ BACK BY SAME. Laboratory - Chemistry and C hemistry - challengeOrdered By: Dr. Vieyra on 07-20-2022 Free T4 [Mass/Vol] 0.60 ng/dL 0.76-1.46 [facility] Laboratory - CoagulationOrde red By: Dr. Vieyra on 07-20-2022 PT Coag (PPP) [Time] 43.9 s 11.7-14.9 [facility] No Panel InformationOrdered By: Dr. Vieyra on 07-20-2022 Thyroid Stimulating Hormone (TSH) 2.59 uIU/mL 0.358-3.74 [facility] Serum or plasma cholesterol in HDL measurement (mass/volume)Ordered By: Dr. Vieyra on 07-20-2022 Cholesterol in HDL [Mass/Vol] 41 mg/dL >40 [facility] Comment on above: The drugs N-Acetylcy steine and Metamizole may falsely depress this assay. Reference Range HDL <40 mg/dL Low HDL Cholesterol HDL >or= 60 mg/dL High HDL Cholesterol Serum or plasma cholesterol in VLDL measurement (mass/volume)Ordered By: Dr. Vieyra on 07-20-2022 Cholesterol in VLDL [Mass/Vol] 39 mg/dL 5-40 [facility] Serum or plasma low density lipoprotein (LDL) cholesterol measurement (mass/volume)Ordered By: Dr. Vieyra on 07-20-2022 Cholesterol in LDL [Mass/Vol] 87 mg/dL 0-130 [facility] Whole blood hemoglobin A1c/t otal hemoglobin ratio (mass fraction)Ordered By: Dr. Vieyra on 07-20-2022 HbA1c (Bld) [Mass fraction] 5.4 % 3.8-5.6 [facility] Comment on above: Normal < 5.7 % Predi abetic 5.7 - 6.4 % Diabetic >or= 6.5 % Please note range changes. INR in Blood by Coagulation assayOrdered By: Dr. Vieyra on 05-27-2022 INR Coag (Bld) [Relative time] 3.6 {INR} [facility] Laboratory - CoagulationOrde red By: Dr. Vieyra on 05-27-2022 PT Coag (PPP) [Time] 35.4 s 11.7-14.9 [facility] INR in Blood by Coagulation assayon 03-30-2022 INR Coag (Bld) [Relative time] 2.1 {INR} [facility] Work Phone: Laboratory - Coagulationon 0 03-30-2022 PT Coag (PPP) [Time] 23.0 s 11.7-14.9 [facility] Work Phone: Absolute lymphocyte counton 03-15-2022 Lymphocytes Auto (Unsp spec) [#/Vol] 0.89 10*3/uL 0.83-4.51 [facility] Work Phone: Basophil percentageon 2021 Basophils/100 WBC (Bld) 1.1 % 0-1 [facility] Work Phone: [phone] Chloride [Moles/Vol] 105 mmol/L 98-107 [facility] Work Phone: [phone] Eosinophils/100 WBC (Bld) 12.6 % 0-5 [facility] Work Phone: Glucose [Mass/Vol] 106 mg/dL 74-106 [facility] Work Phone: [phone] Comment on above: Fasting Glucose resu lt from 100 to 125 mg/dL suggests IMPAIRED HOMEOSTASIS per A.D.A. criteria. Neutrophils (Bld) [#/Vol] 4.1 10*3/uL 2.0-7.7 [facility] Work Phone: Neutrophils/100 WBC (Bld) 66.6 % 47-70 [facility] Work Phone: Potassium [Moles/Vol] 5.0 mmol/L 3.5-5.1 [facility] Work Phone: Sodium [Moles/Vol] 143 mmol/L 136-145 [facility] Work Phone: WBC (Bld) [#/Vol] 6.2 10*3/uL 4.4-11.0 [facility] Work Phone: Blood erythrocytes count (nu mber/volume)on 03-15-2022 RBC (Bld) [#/Vol] 3.17 10*6/uL 4.2-5.4 [facility] Work Phone: Blood hemoglobin measurement (mass/volume)on 03-15-2022 Hemoglobin (Bld) [Mass/Vol] 8.0 g/dL 12.0-15.0 [facility] Work Phone: Blood lymphocytes/100 leukoc yteson 03-15-2022 Lymphocytes/100 WBC (Bld) 14.4 % 19-41 [facility] Work Phone: Blood monocytes/100 leukocyt eson 03-15-2022 Monocytes/100 WBC (Bld) 5.0 % 0-[address] [facility] Work Phone: Blood platelet mean volumeon 03-15-2022 Platelet mean volume (Bld) [Entitic vol] 9.5 fL 6.2-12.0 [facility] Work Phone: Determination of erythrocyte mean corpuscular volume (MCV)on 03-15-2022 MCV (RBC) [Entitic vol] 87.7 fL 81-[address] [facility] Work Phone: Hematocrit Auto (Bld) [Volum e fraction]on 03-15-2022 Hematocrit (Bld) [Volume fraction] 27.8 % 37-47 [facility] Work Phone: INR in Blood by Coagulation assayon 03-15-2022 INR Coag (Bld) [Relative time] 2.0 {INR} [facility] Work Phone: Laboratory - Chemistry and C hemistry - challengeon 03-15-2022 CO2 [Moles/Vol] 28.0 mmol/L 21.0-32.0 [facility] Work Phone: Natriuretic peptide B (Bld) [Mass/Vol] 972.2 pg/mL 0-100 [facility] Work Phone: Urea nitrogen/Creatinine [Mass ratio] 3.9 mg/mg 10-20 [facility] Work Phone: Laboratory - Coagulationon 0 03-15-2022 PT Coag (PPP) [Time] 21.9 s 11.7-14.9 [facility] Work Phone: Laboratory - Hematology and Cell countson 03-15-2022 Erythrocyte distribution width (RBC) [Entitic vol] 53.1 fL 35.1-43.9 [facility] Work Phone: Erythrocyte distribution width (RBC) [Ratio] 17.0 % 11.6-14.6 [facility] Work Phone: Immature granulocytes/100 WBC (Bld) 0.300 % 0.0-0.9 [facility] Work Phone: Comment on above: IG% - Immature Granu locytes (promyelocytes, myelocytes and metamyelocytes) > 1% indicates that a LEFT SHIFT is Present. MCH (RBC) [Entitic mass] 25.2 pg 27.0-32.0 [facility] Work Phone: Nucleated RBC/100 WBC (Bld) [Ratio] 0 % 0-5 [facility] Work Phone: MCHC Auto (RBC) [Mass/Vol]on 03-15-2022 MCHC (RBC) [Mass/Vol] 28.8 g/dL 32-36 [facility] Work Phone: No Panel Informationon 03-15 Estimated Creatinine Clearance Calc 4.77 ml/min [facility] Work Phone: Estimated GFR (MDRD) Amer 5 mL/min >60 [facility] Work Phone: Comment on above: GFR Calc Estimated GFR (MDRD) Non-Af Amer 4 mL/min >60 [facility] Work Phone: Comment on above: Non- GFR Calc Troponin I High Sensitivity 62 pg/mL 3.0-54.0 [facility] Work Phone: Comment on above: Please Note: New Chandrika t Units and Gender Specific Reference Ranges. For more information see Policy Stat Procedure [place] High Sensitivity Troponin (TNIH) and attachments. Platelets bldon 03-15-2022 Platelets (Bld) [#/Vol] 354 10*3/uL 150-450 [facility] Work Phone: Serum or plasma calcium destini urement (mass/volume)on 03-15-2022 Calcium [Mass/Vol] 9.1 mg/dL 8.5-10.1 [facility] Work Phone: Serum or plasma creatinine m easurement (mass/volume)on 03-15-2022 Creatinine [Mass/Vol] 10.30 mg/dL 0.55-1.[address] [facility] Work Phone: Comment on above: Critical Result(s) C alled at: 09:52:38 03/15/2022 by: Víctor Wang. Niels Ott RN (ER). Results read back by same.The validity of the calculated GFR & GFRAA in patients over 70 years has not been determined. Clinical correlation is essential. Serum or plasma urea nitroge n measurement (mass/volume)on 03-15-2022 Urea nitrogen [Mass/Vol] 40 mg/dL 7-18 [facility] Work Phone: Thin prep Papanicolaou smear with manual screeningon 03-15-2022 Thin prep Papanicolaou smear with manual screening 10 5-15 [facility] Work Phone: ICD CLINIC CHECKon 2 Detection Configuration (Vent) 2 - Zone [facility] FastVT_Detection Interval 300 ms [facility] FastVT_Therapy Configuration 0 ATP(s) + 1 Shock(s) [facility] ICD FastVT DetectionStatus ENABLED [facility] ICD-Device Mfg BSX [facility] ICD-Rhythm Sinus rhythm @ 63 bpm [facility] [id number] 0 Clev [facility] ICD-SHOCKSDELIVEREDVENT RICULAR 0 [facility] Lead1 Mfg [facility] Location Unknown [facility] MDT_PROG_TACHY_ZONE_DET ECTIONS_STATUS ENABLED [facility] Model A219 EMBLEM MRI S-ICD [facility] Model 3401 EMBLEM S-ICD Electrode [facility] Pacemaker Dependent? NO [facility] Serial Number [id number] [facility] Serial Number [id number] [facility] Therapy Status (Vent) Enabled [facility] VF Zone Detection Interval 240 ms [facility] VF Zone Therapy Configuration 0 ATP(s) + 1 Shock(s) [facility] No Panel Informationon 02-22 BLANK _ [facility] Implant Date 11/21/2019 [facility] CONFIRM BLOOD TYPEon 022 ABO O [facility] Rh Nom (Bld) Negative [facility] HEMOGLOBIN (HGB)on Hemoglobin (Bld) [Mass/Vol] 10.0 g/dL Low 11.5 - 15.5 g/dL [facility] Hematocrit Auto (Bld) [Volum e fraction]on 02-11-2022 Hematocrit (Bld) [Volume fraction] 35.7 % Low 36.0 - 46.0 % [facility] Blood hemoglobin measurement (mass/volume)on 02-01-2022 Hemoglobin (Bld) [Mass/Vol] 9.0 g/dL 12.0-15.0 [facility] Work Phone: INR in Blood by Coagulation assayon 01-30-2022 INR Coag (Bld) [Relative time] 1.8 {INR} [facility] Work Phone: Laboratory - Coagulationon 0 01-30-2022 PT Coag (PPP) [Time] 20.6 s 11.7-14.9 [facility] Work Phone: Absolute lymphocyte counton 01-26-2022 Lymphocytes Auto (Unsp spec) [#/Vol] 0.83 10*3/uL 0.83-4.51 [facility] Work Phone: Basophil percentageon 2021 Basophils/100 WBC (Bld) 0.7 % 0-[address] [facility] Work Phone: Chloride [Moles/Vol] 98 mmol/L 98-107 [facility] Work Phone: Eosinophils/100 WBC (Bld) 3.2 % 0-5 [facility] Work Phone: Glucose [Mass/Vol] 105 mg/dL 74-106 [facility] Work Phone: Comment on above: Fasting Glucose resu lt from 100 to 125 mg/dL suggests IMPAIRED HOMEOSTASIS per A.D.A. criteria. Neutrophils (Bld) [#/Vol] 4.1 10*3/uL 2.0-7.7 [facility] Work Phone: Neutrophils/100 WBC (Bld) 73.6 % 47-70 [facility] Work Phone: Potassium [Moles/Vol] 4.8 mmol/L 3.5-5.1 [facility] Work Phone: Sodium [Moles/Vol] 137 mmol/L 136-145 [facility] Work Phone: WBC (Bld) [#/Vol] 5.6 10*3/uL 4.4-11.0 [facility] Work Phone: [phone] Blood erythrocytes count (nu mber/volume)on 01-26-2022 RBC (Bld) [#/Vol] 3.90 10*6/uL 4.2-5.4 [facility] Work Phone: Blood hemoglobin measurement (mass/volume)on 01-26-2022 Hemoglobin (Bld) [Mass/Vol] 10.2 g/dL 12.0-15.0 [facility] Work Phone: [phone] Blood lymphocytes/100 leukoc yteson 01-26-2022 Lymphocytes/100 WBC (Bld) 14.8 % 19-41 [facility] Work Phone: Blood monocytes/100 leukocyt eson 01-26-2022 Monocytes/100 WBC (Bld) 7.5 % 0-[address] [facility] Work Phone: Blood platelet mean volumeon 01-26-2022 Platelet mean volume (Bld) [Entitic vol] 9.1 fL 6.2-12.0 [facility] Work Phone: Determination of erythrocyte mean corpuscular volume (MCV)on 01-26-2022 MCV (RBC) [Entitic vol] 87.9 fL 81-[address] [facility] Work Phone: Hematocrit Auto (Bld) [Volum e fraction]on 01-26-2022 Hematocrit (Bld) [Volume fraction] 34.3 % 37-47 [facility] Work Phone: INR in Blood by Coagulation assayon 01-26-2022 INR Coag (Bld) [Relative time] 4.2 {INR} [facility] Work Phone: Comment on above: CRITICAL VALUE VERIF IED. CALLED TO CONSTANZA MCCOY ED01/26/22 1047 uLcita Chow.RESULTS READ BACK BY SAME . Laboratory - Chemistry and C hemistry - challengeon 01-26-2022 CO2 [Moles/Vol] 31.0 mmol/L 21.0-32.0 [facility] Work Phone: Urea nitrogen/Creatinine [Mass ratio] 2.8 mg/mg 10-20 [facility] Work Phone: Laboratory - Coagulationon 0 01-26-2022 PT Coag (PPP) [Time] 40.1 s 11.7-14.9 [facility] Work Phone: Laboratory - Hematology and Cell countson 01-26-2022 Erythrocyte distribution width (RBC) [Entitic vol] 50.7 fL 35.1-43.9 [facility] Work Phone: Erythrocyte distribution width (RBC) [Ratio] 16.0 % 11.6-14.6 [facility] Work Phone: Immature granulocytes/100 WBC (Bld) 0.200 % 0.0-0.9 [facility] Work Phone: Comment on above: IG% - Immature Granu locytes (promyelocytes, myelocytes and metamyelocytes) > 1% indicates that a LEFT SHIFT is Present. MCH (RBC) [Entitic mass] 26.2 pg 27.0-32.0 [facility] Work Phone: Nucleated RBC/100 WBC (Bld) [Ratio] 0 % 0-5 [facility] Work Phone: MCHC Auto (RBC) [Mass/Vol]on 01-26-2022 MCHC (RBC) [Mass/Vol] 29.7 g/dL 32-36 [facility] Work Phone: No Panel Informationon 01-26 Estimated Creatinine Clearance Calc 5.95 ml/min [facility] Work Phone: Estimated GFR (MDRD) Amer 6 mL/min >60 [facility] Work Phone: Comment on above: GFR Calc Estimated GFR (MDRD) Non-Af Amer 5 mL/min >60 [facility] Work Phone: Comment on above: Non- GFR Calc Platelets bldon 01-26-2022 Platelets (Bld) [#/Vol] 359 10*3/uL 150-450 [facility] Work Phone: Serum or plasma calcium destini urement (mass/volume)on 01-26-2022 Calcium [Mass/Vol] 9.0 mg/dL 8.5-10.1 [facility] Work Phone: Serum or plasma creatinine m easurement (mass/volume)on 01-26-2022 Creatinine [Mass/Vol] 8.25 mg/dL 0.55-1.02 [facility] Work Phone: Comment on above: Critical Result(s) C alled at: 11:04:48 01/26/2022 by: Maksim Iraheta to AMEraymond. Results read back by same.The validity of the calculated GFR & GFRAA in patients over 70 years has not been determined. Clinical correlation is essential. Serum or plasma urea nitroge n measurement (mass/volume)on 01-26-2022 Urea nitrogen [Mass/Vol] 23 mg/dL 01-25 [facility] Work Phone: Thin prep Papanicolaou smear with manual screeningon 01-26-2022 Thin prep Papanicolaou smear with manual screening 8 11-22 [facility] Work Phone: ICD CLINIC CHECKon 2 Detection Configuration (Vent) 2 - Zone [facility] FastVT_Detection Interval 300 ms [facility] FastVT_Therapy Configuration 0 ATP(s) + 1 Shock(s) [facility] ICD FastVT DetectionStatus ENABLED [facility] ICD-Device Mfg BSX [facility] [id number] [facility] ICD-SHOCKSDELIVEREDVENT RICULAR 0 [facility] Lead1 Mfg BSX [facility] Location Unknown [facility] MDT_PROG_TACHY_ZONE_DET ECTIONS_STATUS ENABLED [facility] Model A219 EMBLEM MRI S-ICD [facility] Model 3401 SQ PARASTERNAL LEAD [facility] Serial Number [id number] [facility] Serial Number [id number] [facility] Therapy Status (Vent) Enabled [facility] VF Zone Detection Interval 240 ms [facility] VF Zone Therapy Configuration 0 ATP(s) + 1 Shock(s) [facility] Detection Configuration (Vent) 2 - Zone [facility] FastVT_Detection Interval 300 ms [facility] FastVT_Therapy Configuration 0 ATP(s) + 1 Shock(s) [facility] ICD FastVT DetectionStatus ENABLED [facility] ICD-Device Mfg BSX [facility] [id number] 0 [facility] ICD-SHOCKSDELIVEREDVENT RICULAR 0 [facility] Lead1 Mfg BSX [facility] Location Unknown [facility] MDT_PROG_TACHY_ZONE_DET ECTIONS_STATUS ENABLED [facility] Model A219 EMBLEM MRI S-ICD [facility] Model 3401 SQ PARASTERNAL LEAD [facility] Serial Number [id number] [facility] Serial Number [id number] [facility] Therapy Status (Vent) Enabled [facility] VF Zone Detection Interval 240 ms [facility] VF Zone Therapy Configuration 0 ATP(s) + 1 Shock(s) [facility] No Panel Informationon 01-21 BLANK _ [facility] Implant Date 11/22/2019 [facility] BLANK _ [facility] Implant Date 11/22/2019 [facility] XR CHEST 2V FRONTAL/LATon [facility] INR in Blood by Coagulation assayon 01-06-2022 INR Coag (Bld) [Relative time] 3.4 {INR} [facility] Work Phone: [phone] Laboratory - Coagulationon 0 01-06-2022 PT Coag (PPP) [Time] 33.8 s 11.7-14.9 [facility] Work Phone: Blood hemoglobin measurement (mass/volume)on 11-25-2021 Hemoglobin (Bld) [Mass/Vol] 12.5 g/dL 12.0-15.0 [facility] Work Phone: INR in Blood by Coagulation assayon 11-25-2021 INR Coag (Bld) [Relative time] 2.7 {INR} [facility] Work Phone: Laboratory - Coagulationon 0 11-25-2021 PT Coag (PPP) [Time] 28.2 s 11.7-14.9 [facility] Work Phone: INR in Blood by Coagulation assayon 09-29-2021 INR Coag (Bld) [Relative time] 2.2 {INR} [facility] Work Phone: Laboratory - Coagulationon 0 09-29-2021 PT Coag (PPP) [Time] 23.5 s 11.7-14.9 [facility] Work Phone: Platelet Counton 09-23-2021 Platelets (Bld) [#/Vol] 323 10*3/uL Normal 140-440 [facility] Comment on above: Performed By: #### P LTCT, PT #### [address] [id number] Platelets (Bld) [#/Vol] 323 10*3/uL 140 - 440 10*3/uL [facility] Test Performed by [facility] [employer] [facility], [address] [place] [id number] [facility] Prothrombin Timeon INR 2.0 High 0.9-1.1 [facility] Comment on above: Result Comment: Saroj [...] Performed By: #### P LTCT, PT #### [address] [id number] PT Coag (PPP) [Time] 20.3 s High 9.0-12.0 [facility] Comment on above: Result Comment: . Performed By: #### P LTCT, PT #### [address] [phone] [facility] 09-23-2021 INR Coag (Bld) [Relative time] 2.0 {INR} High [facility] Comment on above: Recommended Anticoag ulant [...] Interpretation and review of laboratory results Abnormal [facility] PT Coag (PPP) [Time] 20.3 s High 9.0 - 1 2.0 s [facility] Comment on above: . Test Performed by [facility], [address] [place] [id number] [facility] Special treatments and proce dureson 09-23-2021 Patient Name: SPENCER REDDING Special Procedures ACCESSION EXAM DATE/TIME PROCEDURE ORDERING PROVIDER [id number] 09/23/2021 14:10 EDT XA Special Angiography KEYANNA [...] to the prior study. A short 6 Chadian vascular sheath was placed in the antegrade [...] M Transcribed Date and Time: 09/23/2021 2:10 [facility] Juanpablo Sauceda MD - 09/23/2021 Patient Name: SPENCER REDDING Special Procedures ACCESSION EXAM DATE/TIME PROCEDURE ORDERING PROVIDER [id number] 09/23/2021 14:10 EDT XA Special Angiography KEYANNA [...] to the prior study. A short 6 Chadian vascular sheath was placed in the antegrade [...] (narrative) [facility] Work Phone: XA Special Angiography [facility] 09-23-2021 XA Special Angiography Procedure Patient Name: SPENCER REDDING Special Procedures ACCESSION EXAM DATE/TIME PROCEDURE ORDERING PROVIDER [id number] 09/23/2021 14:10 EDT XA Special Angiography KEYANNA [...] to the prior study. A short 6 Chadian vascular sheath was placed in the antegrade [...] Transcribed Date and Time: 09/23/2021 2:10 Normal [facility] INR in Blood by Coagulation assayon 08-18-2021 INR Coag (Bld) [Relative time] 3.0 {INR} [facility] Work Phone: Laboratory - Coagulationon 0 08-18-2021 PT Coag (PPP) [Time] 30.0 s 11.7-14.9 [facility] Work Phone: INR in Blood by Coagulation assayon 07-30-2021 INR Coag (Bld) [Relative time] 2.6 {INR} [facility] Work Phone: Laboratory - Coagulationon 0 07-30-2021 PT Coag (PPP) [Time] 26.6 s 11.7-14.9 [facility] Work Phone: INR in Blood by Coagulation assayon 07-21-2021 INR Coag (Bld) [Relative time] 3.3 {INR} [facility] Work Phone: Laboratory - Coagulationon 0 07-21-2021 PT Coag (PPP) [Time] 32.6 s 11.7-14.9 [facility] Work Phone: Cervical or vagninal specime n microscopic examination by cytology stain (reported ason 06-23-2021 Cytology report Cyto stain Doc (Cvx/Vag) Comment [facility] Work Phone: Comment on above: The Pap smear is a s creening test designed to aid in thedetection of premalignant and malignant conditions of theuterine cervix. It is not a diagnostic procedure andshould not be used as the sole means of detecting cervicalcancer. Both false-positive and false-negative reports dooccur. Laboratory - Cytologyon 06-10 Undercar Specialist Cyto stain Nom (Cvx/Vag) [ID] Comment [facility] Work Phone: Comment on above: Shannen Burnett, [employer] hnologist (ASCP) Laboratory - Miscellaneous t estson 06-23-2021 Service comment (Unsp spec) [Interp] Comment [facility] Work Phone: Comment on above: This liquid based Th inPrep(R) pap test was screened withthe use of an image guided system. Service comment (Unsp spec) [Interp] . [facility] Work Phone: No Panel Informationon 06-23 Pathology report final diagnosis Narrative Comment [facility] Work Phone: Comment on above: NEGATIVE [...] Refer to the operative report for details. Clearing Distribution Clerk: ROSY Transcribe Date/Time: Feb 15 2020 1:49P Dictated by : HEATHER BRICE MD This examination was interpreted and the report reviewed and electronically signed by: HEATHER BRICE MD on Feb 15 2020 1:51PM EST Normal [facility] XR RETROGRADE PYELOGRAM LTon 02-15-2020 XR RETROGRADE [...] Refer to the operative report for details. Clearing Distribution Clerk: ROSY Transcribe Date/Time: Feb 15 2020 1:49P Dictated by : HEATHER BRICE MD This examination was interpreted and the report reviewed and electronically signed by: HEATHER BRICE MD on Feb 15 2020 1:51PM EST Normal [facility] Otheron 01-18-2020 Bacteria Auto (Urine sed) [#/Area] NONE None [facility] Bilirubin Ql (U) * Negative [facility] Epithelial cells Auto (Urine sed) [#/Area] NONE 0.0 - 5.0 /hpf [facility] Hemoglobin Ql (U) * Negative [facility] Hyaline casts Auto (Urine sed) [#/Area] 0.0-2 0.0 - 1.0 /lpf [facility] Leukocyte esterase Auto test strip Ql (U) * Negative [facility] Nitrite Auto test strip Ql (U) * Negative [facility] pH (U) * 5.0 - 8.0 [facility] Protein Ql (U) * Negative mg/dL [facility] RBC Auto (Urine sed) [#/Area] >50.0 High 0.0 - 5.0 /hpf [facility] Urobilinogen Auto test strip Ql (U) * 0.2 - 1.0 EU/dL [facility] WBC Auto (Urine sed) [#/Area] 2.0-5 0.0 - 5.0 /hpf [facility] Urinalysison 01-18-2020 Appearance (U) BLOODY [facility] Color (U) RED [facility] Glucose Ql (U) * Negative mg/dL [facility] Ketones Ql (U) * Negative mg/dL [facility] Specific gravity (U) [Rel density] 1.002 1.005 - 1.030 [facility] Urine sediment comments LM Maxx (Urine sed) See Below [facility] Urinalysis Routineon 020 Appearance (U) BLOODY Normal [facility] Comment on above: Performed By: #### U RIN2 #### [facility] [address] [place], [place] [address] Bacteria LM.HPF (Urine sed) [#/Area] NONE Normal None [facility] Comment on above: Performed By: #### U RIN2 #### [facility] [address] [place] [address] Bilirubin (U) [Mass/Vol] * Normal Negative [facility] Comment on above: Performed By: #### U RIN2 #### [place] [address] Color (U) RED Normal [facility] Comment on above: Performed By: #### U RIN2 #### [place] [address] Comment Urines See Below Normal [facility] Comment on above: Result Comment: Davis r abnormal-macroscopic not done. Performed By: #### U RIN2 #### [place] [address] Ep Cells Urine NONE Normal 0.0-5.0 [facility] Comment on above: Performed By: #### U RIN2 #### [facility] [address] [place] [address] Glucose Ql (U) * Normal Negative [facility] Comment on above: Performed By: #### U RIN2 #### [place] [address] Hemoglobin,Urine * Normal Negative [facility] Comment on above: Performed By: #### U RIN2 #### [place] [address] Hyaline Cast 0.0-2 Normal 0.0-1.0 [facility] Comment on above: Performed By: #### U RIN2 #### [facility] [address] [place] [address] Ketone Urine * Normal Negative [facility] Comment on above: Performed By: #### U RIN2 #### [place] [address] Leukocytes Esterase * Normal Negative [facility] Comment on above: Performed By: #### U RIN2 #### [place] [address] Nitrites Urine * Normal Negative [facility] Comment on above: Performed By: #### U RIN2 #### [facility] [address] [place] [address] pH (U) * Normal 5.0-8.0 [facility] Comment on above: Performed By: #### U RIN2 #### [facility] [address] [place] [address] Protein (U) [Mass/Vol] * Normal Negative [facility] Comment on above: Performed By: #### U RIN2 #### [facility] [address] [place] [address] RBC LM.HPF (Urine sed) [#/Area] /[HPF] High 0.0-5.0 [facility] Comment on above: Performed By: #### U RIN2 #### [place] [address] Specific [place], Ur 1.002 Normal 1.005-1.030 [facility] Comment on above: Performed By: #### U RIN2 #### [facility] [address] [place] [address] Urobilinogen,Ur * Normal 0.2-1.0 [facility] Comment on above: Performed By: #### U RIN2 #### [place] [address] WBC LM.HPF (Urine sed) [#/Area] 2.0-5 Normal 0.0-5.0 [facility] Comment on above: Performed By: #### U RIN2 #### [place] [address] Cult Urineon 01-17-2020 Cult Urine Test performed at [facility] No growth <1,000 CFU/ml. Normal [facility] Comment on above: Performed By: #### C _URI #### [place] [address] CBCon 11-22-2019 Erythrocyte distribution width (RBC) [Ratio] 18.0 % High 11.5 - 14.5 % [facility] [place] Hematocrit (Bld) [Volume fraction] 47.8 % High 35 - 47 % [place], [place] Hemoglobin (Bld) [Mass/Vol] 15.4 g/dL 11.7 - 16 g/dL [place] Interpretation and review of laboratory results Abnormal [place] MCH (RBC) [Entitic mass] 27.8 pg 26 - 34 pg [place] MCHC (RBC) [Mass/Vol] 32.2 % 32 - 36 % [place], [place] MCV (RBC) [Entitic vol] 86.2 fL 79 - 98 fL [place], [place] Platelet mean volume (Bld) [Entitic vol] 7.6 fL 7.4 - 10.4 fL [place] Platelets (Bld) [#/Vol] 302 10*3/uL 140 - 440 10*3/uL [place] RBC (Bld) [#/Vol] 5.54 10*6/uL High 3.8 - 5.2 10*6/uL [place] WBC (Bld) [#/Vol] 7.8 10*3/uL 3.6 - 10.7 10*3/uL [place] Test Performed by [id number] [place] [address] ELECTROPHYSIOLOGYon 11-22-19 Gilberto Vieyra M D - 11/22/2019 9:48 AM EDT [facility] PATIENT: SPENCER REDDING MEDICAL RECORD#: [id number] LOCATION: [place] [address] DATE OF SERVICE: 11/22/2019 DATE OF : [...] Device Data: The implanted device is a [employer] Emblem, model A219, serial [id number]. Summary: Status post subcutaneous ICD system generator change. Diskriter Job ID: [id number] Gilberto Vieyra MD DOD: 11/22/2019 09:16 A MARTHA/shira DOT: 11/22/2019 09:48 A Job Number: [id number] Document Number: [id number] cc: [place], [place] POC INRon 11-22-2019 INR Coag (Bld) [Relative time] 1.4 {INR} High [place], [place] Comment on above: Performed by Jaz [facility] CLIA ID: [id number] [place], [place] Recommended Anticoagulant Therapy: See Below ----- [...] Interpretation and review of laboratory results Abnormal [place], [place] Office Visiton 04-26-2017 Dietary management education, guidance, and counseling (procedure) yes Invalid Interpretation Code [facility] Work Phone: [phone] Documentation of current medications (procedure) Done Invalid Interpretation Code [facility] Work Phone: [phone] Clinical Lists Update: Pre cdl program coordinator 04-15-2017 Left ventricular Ejection fraction 60 % Invalid Interpretation Code [facility] Work Phone: [phone] Clinical Lists Update: Pre 05-03-2016 Tobacco smoking status NHIS Never smoker Invalid Interpretation Code [facility] Work Phone: [phone] Tobacco use CPHS Never smoker Invalid Interpretation Code [facility] Work Phone: [phone] Clinical Lists Update: 04-10-2016 Calcium mass conc 7.9 mg/dL Invalid Interpretation Code [facility] Work Phone: [phone] Chloride molar conc 99 mmol/L Invalid Interpretation Code [facility] Work Phone: [phone] CO2 31.0 mmol/L Invalid Interpretation Code [facility] Work Phone: [phone] CO2 ppres (BldV) 31.0 mmol/L Invalid Interpretation Code [facility] Work Phone: [phone] Creatinine mass conc 6.40 mg/dL Invalid Interpretation Code [facility] Work Phone: [phone] Glucose mass conc 94 mg/dL Invalid Interpretation Code [facility] Work Phone: [phone] Hematocrit Auto Volume Fraction (Bld) 34.2 % Invalid Interpretation Code [facility] Work Phone: [phone] Hemoglobin mass conc (Bld) 10.6 g/dL Invalid Interpretation Code [facility] Work Phone: [phone] Platelets Auto #/vol (Bld) 223 10*3/mm3 Invalid Interpretation Code [facility] Work Phone: [phone] Potassium molar conc 4.0 mmol/L Invalid Interpretation Code [facility] Work Phone: [phone] Sodium molar conc 137 mmol/L Invalid Interpretation Code [facility] Work Phone: [phone] Urea nitrogen mass conc 25 mg/dL Invalid Interpretation Code [facility] Work Phone: [phone] Urea nitrogen/Creatinine mass ratio 3.9 mg/mg Invalid Interpretation Code [facility] Work Phone: WBC Auto #/vol (Bld) 4.4 10*3/uL Invalid Interpretation Code [facility] Work Phone: Clinical Lists Update: 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 Trevor Vieyra MD Work Phone: [facility] 04-16-2025 07:48-0400 Body weight 80.[address] Trevor Vieyra MD Work Phone: [facility] 04-16-2025 07:48-0400 Diastolic blood pressure 76 mm[Hg] Dr. Trevor Vieyra MD Work Phone: [facility] 04-16-2025 07:48-0400 Heart rate 63 /min Dr. Trevor Vieyra MD Work Phone: [facility] 04-16-2025 07:48-0400 Respiratory rate 18 /min Dr. Trevor Vieyra MD Work Phone: [facility] 04-16-2025 07:48-0400 SaO2% (BldA) [Mass fraction] 97 % Dr. Trevor Vieyra MD Work Phone: [facility] 04-16-2025 07:48-0400 Systolic blood pressure 141 mm[Hg] Dr. Trevor Vieyra MD Work Phone: [facility] 04-01-2025 16:00-0400 Diastolic blood pressure 60 mm[Hg] Dr. Trevor Vieyra MD Work Phone: 9(978)119-587100 [place] [address] 04-01-2025 16:00-0400 Heart rate 66 /min Dr. Trevor Vieyra MD Work Phone: 2(212)582-674994 [place] [address] 04-01-2025 16:00-0400 Respiratory rate 25 /min Dr. Trevor Vieyra MD Work Phone: 9(083)908-655394 [place] [address] 04-01-2025 16:00-0400 SaO2% (BldA) [Mass fraction] 93 % Dr. Trevor Vieyra MD Work Phone: 7(048)999-300194 [place] [address] 04-01-2025 16:00-0400 Systolic blood pressure 167 mm[Hg] Dr. Trevor Vieyra MD Work Phone: 7(555)169-226394 [place] [address] 04-01-2025 14:00-0400 Body temperature 97.4 [degF] Dr. Trevor Vieyra MD Work Phone: 5(922)626-783994 [place] [address] 04-01-2025 12:30-0400 Body mass index (BMI) [Ratio] 31.9 kg/m2 Dr. Trevor Vieyra MD Work Phone: 1(447)576-409994 [place] [address] 04-01-2025 12:30-0400 Body weight 78.[address] Trevor Vieyra MD Work Phone: 7(666)552-630394 [place] [address] 04-01-2025 10:02-0400 Body height 157.[address] Trevor Vieyra MD Work Phone: 4(490)403-159594 [place] [address] 04-01-2025 06:00-0400 Inhaled oxygen flow rate 2 L/min Dr. Trevor Vieyra MD Work Phone: 6(156)339-495994 [place] [address] 03-28-2025 21:56-0400 Body temperature 98 [degF] Dr. Trevor Vieyra MD Work Phone: 8(756)490-643894 [place] [address] 03-28-2025 21:56-0400 Diastolic blood pressure 58 mm[Hg] Dr. Trevor Vieyra MD Work Phone: 0(228)397-794794 [place] [address] 03-28-2025 21:56-0400 Heart rate 63 /min Dr. Trevor Vieyra MD Work Phone: [facility] 03-28-2025 21:56-0400 Respiratory rate 17 /min Dr. Trevor Vieyra MD Work Phone: 8(044)325-101[address] [place] [address] 03-28-2025 21:56-0400 SaO2% (BldA) [Mass fraction] 99 % Dr. Trevor Vieyra MD Work Phone: 1(468)007-710794 [place] [address] 03-28-2025 21:56-0400 Systolic blood pressure 195 mm[Hg] Dr. Trevor Vieyra MD Work Phone: 6(652)924-103394 [place] [address] 03-28-2025 21:00-0400 Inhaled oxygen flow rate 2 L/min Dr. Trevor Vieyra MD Work Phone: 1(650)871-472794 [place] [address] 03-28-2025 18:34-0400 Body mass index (BMI) [Ratio] 35.9 kg/m2 Dr. Trevor Vieyra MD Work Phone: 5(573)668-149294 [place] [address] 03-28-2025 18:34-0400 Body weight 89.[address] Trevor Vieyra MD Work Phone: 5(410)478-209994 [place] [address] 10-11-2024 09:18-0400 Body height 157.[address] Trevor Vieyra MD Work Phone: 3(659)733-559094 [place] [address] 10-11-2024 09:18-0400 Body mass index (BMI) [Ratio] 33.8 kg/m2 Dr. Trevor Vieyra MD Work Phone: 5(332)622-917400 [place] [address] 10-11-2024 09:18-0400 Body weight 83.[address] Trevor Vieyra MD Work Phone: 6(094)001-690512 [address] 10-11-2024 09:18-0400 Diastolic blood pressure 61 mm[Hg] Dr. Trevor Vieyra MD Work Phone: 4(436)136-918700 [place] [address] 10-11-2024 09:18-0400 Heart rate 84 /min Dr. Trevor Vieyra MD Work Phone: 1(571)089-290600 [place] [address] 10-11-2024 09:18-0400 Respiratory rate 18 /min Dr. Trevor Vieyra MD Work Phone: [facility] 10-11-2024 09:18-0400 Systolic blood pressure 92 mm[Hg] Dr. Trevor Vieyra MD Work Phone: [facility] 09-17-2024 18:32-0400 Diastolic blood pressure 44 mm[Hg] Dr. Trevor Vieyra MD Work Phone: [facility] 09-17-2024 18:32-0400 Heart rate 92 /min Dr. Trevor Vieyra MD Work Phone: [facility] 09-17-2024 18:32-0400 Respiratory rate 20 /min Dr. Trevor Vieyra MD Work Phone: [facility] 09-17-2024 18:32-0400 SaO2% (BldA) [Mass fraction] 97 % Dr. Trevor Vieyra MD Work Phone: 1(332)171-154600 [place] [address] 09-17-2024 18:32-0400 Systolic blood pressure 98 mm[Hg] Dr. Trevor Vieyra MD Work Phone: [facility] 09-17-2024 16:08-0400 Body height 157.[address] Trevor Vieyra MD Work Phone: [facility] 09-17-2024 16:08-0400 Body mass index (BMI) [Ratio] 34.4 kg/m2 Dr. Trevor Vieyra MD Work Phone: [facility] 09-17-2024 16:08-0400 Body temperature 98.6 [degF] Dr. Treovr Vieyra MD Work Phone: [facility] 09-17-2024 16:08-0400 Body weight 85.[address] Trevor Vieyra MD Work Phone: [facility] 08-21-2024 08:58-0500 Body temperature 98.8 [degF] Dr. Trevor Vieyra MD Work Phone: [facility] 08-21-2024 08:58-0500 Diastolic blood pressure 60 mm[Hg] Dr. Trevor Vieyra MD Work Phone: [facility] 08-21-2024 08:58-0500 Heart rate 65 /min Dr. Trevor Vieyra MD Work Phone: [facility] 08-21-2024 08:58-0500 Respiratory rate 12 /min Dr. Trevor Vieyra MD Work Phone: [facility] 08-21-2024 08:58-0500 SaO2% (BldA) [Mass fraction] 96 % Dr. Trevor Vieyra MD Work Phone: [facility] 08-21-2024 08:58-0500 Systolic blood pressure 118 mm[Hg] Dr. Trevor Vieyra MD Work Phone: [facility] 07-09-2024 10:11-0500 Diastolic blood pressure 70 mm[Hg] Gilberto Vieyra MD Work Phone: [facility] 07-09-2024 10:11-0500 Systolic blood pressure 162 mm[Hg] Gilberto Vieyra MD Work Phone: [facility] 07-09-2024 09:57-0500 Body height 152.4 cm Gilberto Vieyra MD Work Phone: [facility] 07-09-2024 09:57-0500 Body mass index (BMI) [Ratio] 35.74 kg/m2 Gilberto Vieyra MD Work Phone: [facility] 07-09-2024 09:57-0500 Body weight 83.01 kg Gilberto Vieyra MD Work Phone: [facility] 07-09-2024 09:57-0500 Heart rate 72 /min Gilberto Vieyra MD Work Phone: [facility] 07-09-2024 09:57-0500 SaO2% (BldA) [Mass fraction] 98 % Gilberto Vieyra MD Work Phone: [facility] 07-08-2024 18:27-0500 Body temperature 98.2 [degF] Dr. Trevor Vieyra MD Work Phone: [facility] 07-08-2024 18:27-0500 Diastolic blood pressure 50 mm[Hg] Dr. Trevor Vieyra MD Work Phone: [facility] 07-08-2024 18:27-0500 Heart rate 69 /min Dr. Trevor Vieyra MD Work Phone: [facility] 07-08-2024 18:27-0500 Respiratory rate 18 /min Dr. Trevor Vieyra MD Work Phone: [facility] 07-08-2024 18:27-0500 SaO2% (BldA) [Mass fraction] 97 % Dr. Trevor Vieyra MD Work Phone: [facility] 07-08-2024 18:27-0500 Systolic blood pressure 122 mm[Hg] Dr. Trevor Vieyra MD Work Phone: [facility] 07-08-2024 16:40-0500 Body mass index (BMI) [Ratio] 33.9 kg/m2 Dr. Trevor Vieyra MD Work Phone: [facility] 07-08-2024 16:40-0500 Body weight 84.[address] Trevor Vieyra MD Work Phone: [facility] 06-20-2023 09:16-0500 Body mass index (BMI) [Ratio] 33.62 kg/m2 Gilberto Vieyra MD Work Phone: [facility] 06-20-2023 09:16-0500 Body weight 84.73 kg Gilberto Vieyra MD Work Phone: [facility] 06-20-2023 09:16-0500 Diastolic blood pressure 54 mm[Hg] Gilberto Vieyra MD Work Phone: [facility] 06-20-2023 09:16-0500 Heart rate 59 /min Gilberto Vieyra MD Work Phone: [facility] 06-20-2023 09:16-0500 SaO2% (BldA) [Mass fraction] 98 % Gilberto Vieyra MD Work Phone: [facility] 06-20-2023 09:16-0500 Systolic blood pressure 128 mm[Hg] Gilberto Vieyra MD Work Phone: [facility] 05-10-2023 10:32-0400 Body height 157.[address] Trevor Vieyra Work Phone: [facility] 05-10-2023 10:32-0400 Body mass index (BMI) [Ratio] 33.5 kg/m2 Dr. Trevor Vieyra Work Phone: [facility] 05-10-2023 10:32-0400 Body weight [address] Trevor Vieyra Work Phone: [facility] 05-10-2023 10:32-0400 Diastolic blood pressure 61 mm[Hg] Dr. Trevor Vieyra Work Phone: [facility] 05-10-2023 10:32-0400 Heart rate 79 /min Dr. Trevor Vieyra Work Phone: [facility] 05-10-2023 10:32-0400 Respiratory rate 16 /min Dr. Trevor Vieyra Work Phone: [facility] 05-10-2023 10:32-0400 Systolic blood pressure 98 mm[Hg] Dr. Trevor Vieyra Work Phone: [facility] 03-16-2023 17:50-0400 Diastolic blood pressure 62 mm[Hg] Dr. Trevor Vieyra Work Phone: [facility] 03-16-2023 17:50-0400 Heart rate 62 /min Dr. Trevor Vieyra Work Phone: [facility] 03-16-2023 17:50-0400 Respiratory rate 16 /min Dr. Trevor Vieyra Work Phone: [facility] 03-16-2023 17:50-0400 SaO2% (BldA) [Mass fraction] 96 % Dr. Trevor Vieyra Work Phone: [facility] 03-16-2023 17:50-0400 Systolic blood pressure 130 mm[Hg] Dr. Trevor Vieyra Work Phone: [facility] 03-16-2023 14:07-0400 Body height 157.[address] Trevor Vieyra Work Phone: [facility] 03-16-2023 14:07-0400 Body mass index (BMI) [Ratio] 34 kg/m2 Dr. Trevor Vieyra Work Phone: [facility] 03-16-2023 14:07-0400 Body temperature 98.2 [degF] Dr. Trevor Vieyra Work Phone: [facility] 03-16-2023 14:07-0400 Body weight 84.[address] Trevor Vieyra Work Phone: [facility] 02-18-2023 09:05-0400 Body height 158.[address] cm [address] 1 [facility] 02-18-2023 09:05-0400 Body temperature 97.3 [degF] Pst 1 [facility] 02-18-2023 09:05-0400 Body weight 85.73 kg [address] 1 [facility] 02-18-2023 09:05-0400 Diastolic blood pressure 66 mm[Hg] Pst 1 [facility] 02-18-2023 09:05-0400 Heart rate 77 /min Pst 1 [facility] 02-18-2023 09:05-0400 Respiratory rate 18 /min Pst 1 [facility] 02-18-2023 09:05-0400 SaO2% (BldA) [Mass fraction] 99 % Pst 1 [facility] 02-18-2023 09:05-0400 Systolic blood pressure 104 mm[Hg] Pst 1 [facility] 02-10-2023 08:43-0400 Body height 158.8 cm Christiano Huntley MD Work Phone: [facility] 02-10-2023 08:43-0400 Body weight 84.82 kg Christiano Huntley MD Work Phone: [facility] 01-20-2023 14:33-0400 Body height 157.[address] Trevor Vieyra Work Phone: [facility] 01-20-2023 14:33-0400 Body mass index (BMI) [Ratio] 34.4 kg/m2 Dr. Trevor Vieyra Work Phone: [facility] 01-20-2023 14:33-0400 Body weight 85.[address] Trevor Vieyra Work Phone: [facility] 01-20-2023 14:33-0400 Diastolic blood pressure 68 mm[Hg] Dr. Trevor Vieyra Work Phone: [facility] 01-20-2023 14:33-0400 Heart rate 85 /min Dr. Trevor Vieyra Work Phone: [facility] 01-20-2023 14:33-0400 Respiratory rate 18 /min Dr. Trevor Vieyra Work Phone: [facility] 01-20-2023 14:33-0400 SaO2% (BldA) [Mass fraction] 94 % Dr. Trevor Vieyra Work Phone: [facility] 01-20-2023 14:33-0400 Systolic blood pressure 109 mm[Hg] Dr. Trevor Vieyra Work Phone: [facility] 10-06-2022 10:05-0400 Body height 157.[address] Trevor Vieyra Work Phone: 3(184)988-357900 [place] [address] 10-06-2022 10:05-0400 Body mass index (BMI) [Ratio] 34.4 kg/m2 Dr. Trevor Vieyra Work Phone: [facility] 10-06-2022 10:05-0400 Body weight 85.[address] Trevor Vieyra Work Phone: [facility] 10-06-2022 10:05-0400 Diastolic blood pressure 72 mm[Hg] Dr. Trevor Vieyra Work Phone: [facility] 10-06-2022 10:05-0400 Heart rate 82 /min Dr. Trevor Vieyra Work Phone: [facility] 10-06-2022 10:05-0400 Respiratory rate 18 /min Dr. Trevor Vieyra Work Phone: [facility] 10-06-2022 10:05-0400 SaO2% (BldA) [Mass fraction] 97 % Dr. Trevor Vieyra Work Phone: [facility] 10-06-2022 10:05-0400 Systolic blood pressure 127 mm[Hg] Dr. Trevor Vieyra Work Phone: [facility] 04-08-2022 10:57-0400 Body height 158.8 cm Christiano Huntley MD Work Phone: [facility] 04-08-2022 10:57-0400 Body weight 79.88 kg Christiano Huntley MD Work Phone: [facility] 03-30-2022 14:39-0400 Body height 157.[address] Trevor Vieyra Work Phone: [facility] Work Phone: 03-30-2022 14:39-0400 Body mass index (BMI) [Ratio] 32.5 kg/m2 Dr. Trevor Vieyra Work Phone: [facility] Work Phone: 03-30-2022 14:39-0400 Body weight 80.[address] Trevor Vieyra Work Phone: [facility] Work Phone: 03-30-2022 14:39-0400 Diastolic blood pressure 64 mm[Hg] Dr. Trevor Vieyra Work Phone: [facility] Work Phone: 03-30-2022 14:39-0400 Heart rate 82 /min Dr. Trevor Vieyra Work Phone: [facility] Work Phone: 03-30-2022 14:39-0400 Respiratory rate 16 /min Dr. Trevor Vieyra Work Phone: [facility] Work Phone: 03-30-2022 14:39-0400 Systolic blood pressure 112 mm[Hg] Dr. Trevor Vieyra Work Phone: [facility] Work Phone: 03-15-2022 11:02-0400 Diastolic blood pressure 62 mm[Hg] Dr. Trevor Vieyra Work Phone: [facility] Work Phone: 03-15-2022 11:02-0400 Heart rate 77 /min Dr. Trevor Vieyra Work Phone: [facility] Work Phone: 03-15-2022 11:02-0400 Inhaled oxygen flow rate 2 L/min Dr. Trevor Vieyra Work Phone: [facility] Work Phone: 03-15-2022 11:02-0400 Respiratory rate 24 /min Dr. Trevor Vieyra Work Phone: [facility] Work Phone: 03-15-2022 11:02-0400 SaO2% (BldA) [Mass fraction] 93 % Dr. Trevor Vieyra Work Phone: [facility] Work Phone: 03-15-2022 11:02-0400 Systolic blood pressure 179 mm[Hg] Dr. Trevor Vieyra Work Phone: [facility] Work Phone: 03-15-2022 08:24-0400 Body height 157.[address] Trevor Vieyra Work Phone: [facility] Work Phone: 03-15-2022 08:24-0400 Body mass index (BMI) [Ratio] 34 kg/m2 Dr. Trevor Vieyra Work Phone: [facility] Work Phone: 03-15-2022 08:24-0400 Body temperature 98.1 [degF] Dr. Trevor Vieyra Work Phone: [facility] Work Phone: 03-15-2022 08:24-0400 Body weight 84.[address] Trevor Vieyra Work Phone: [facility] Work Phone: 02-11-2022 13:30-0400 Body height 158.8 cm [address] 2 [facility] 02-11-2022 13:30-0400 Body temperature 97.5 [degF] Pst 2 [facility] 02-11-2022 13:30-0400 Body weight 90.54 kg [address] 2 [facility] 02-11-2022 13:30-0400 Diastolic blood pressure 49 mm[Hg] Pst 2 [facility] 02-11-2022 13:30-0400 Heart rate 78 /min Pst 2 [facility] 02-11-2022 13:30-0400 Respiratory rate 18 /min Pst 2 [facility] 02-11-2022 13:30-0400 SaO2% (BldA) [Mass fraction] 98 % Pst 2 [facility] 02-11-2022 13:30-0400 Systolic blood pressure 121 mm[Hg] Pst 2 [facility] 02-03-2022 10:28-0400 Body height 158.8 cm Christiano Huntley MD Work Phone: [facility] 02-03-2022 10:28-0400 Body weight 90.27 kg Christiano Huntley MD Work Phone: [facility] 02-03-2022 10:28-0400 Diastolic blood pressure 70 mm[Hg] Christiano Huntley MD Work Phone: [facility] 02-03-2022 10:28-0400 Systolic blood pressure 124 mm[Hg] Christiano Huntley MD Work Phone: [facility] 01-30-2022 15:42-0400 Body height 157.48 cm [facility] Work Phone: 01-30-2022 15:42-0400 Body mass index (BMI) [Ratio] 36.2 kg/m2 [facility] Work Phone: 01-30-2022 15:42-0400 Body temperature 98.3 [degF] [facility] Work Phone: 01-30-2022 15:42-0400 Body weight 89.81 kg [facility] Work Phone: 01-30-2022 15:42-0400 Diastolic blood pressure 71 mm[Hg] [facility] Work Phone: 01-30-2022 15:42-0400 Heart rate 80 /min [facility] Work Phone: 01-30-2022 15:42-0400 Respiratory rate 16 /min [facility] Work Phone: 01-30-2022 15:42-0400 SaO2% (BldA) [Mass fraction] 98 % [facility] Work Phone: 01-30-2022 15:42-0400 Systolic blood pressure 159 mm[Hg] [facility] Work Phone: 01-28-2022 10:49-0400 Body height 158.8 cm Christiano Huntley MD Work Phone: [facility] 01-28-2022 10:49-0400 Body weight 91.63 kg Christiano Huntley MD Work Phone: [facility] 01-28-2022 10:49-0400 Diastolic blood pressure 64 mm[Hg] Christiano Huntley MD Work Phone: [facility] 01-28-2022 10:49-0400 Heart rate 87 /min Christiano Huntley MD Work Phone: [facility] 01-28-2022 10:49-0400 Respiratory rate 20 /min Christiano Huntley MD Work Phone: [facility] 01-28-2022 10:49-0400 Systolic blood pressure 125 mm[Hg] Christiano Huntley MD Work Phone: [facility] 01-26-2022 13:01-0400 Diastolic blood pressure 74 mm[Hg] [facility] Work Phone: 01-26-2022 13:01-0400 Heart rate 70 /min [facility] Work Phone: 01-26-2022 13:01-0400 Respiratory rate 16 /min [facility] Work Phone: 01-26-2022 13:01-0400 SaO2% (BldA) [Mass fraction] 96 % [facility] Work Phone: 01-26-2022 13:01-0400 Systolic blood pressure 136 mm[Hg] [facility] Work Phone: 01-26-2022 09:52-0400 Body temperature 98.3 [degF] [facility] Work Phone: 01-26-2022 09:49-0400 Body height 157.48 cm [facility] Work Phone: 01-26-2022 09:49-0400 Body mass index (BMI) [Ratio] 36.3 kg/m2 [facility] Work Phone: 01-26-2022 09:49-0400 Body weight 90.3 kg [facility] Work Phone: 01-21-2022 14:40-0400 Diastolic blood pressure 48 mm[Hg] Mri (I-Stat/1.5t/3t) Work Phone: [facility] 01-21-2022 14:40-0400 Heart rate 69 /min Mri (I-Stat/1.5t/3t) Work Phone: [facility] 01-21-2022 14:40-0400 SaO2% (BldA) [Mass fraction] 99 % Mri (I-Stat/1.5t/3t) Work Phone: [facility] 01-21-2022 14:40-0400 Systolic blood pressure 131 mm[Hg] Mri (I-Stat/1.5t/3t) Work Phone: [facility] 12-15-2021 10:25-0400 Body height 158.8 cm Deb Howard [employer] Work Phone: [facility] 12-15-2021 10:25-0400 Body weight 91.17 kg Deb Mitchellr [employer] Work Phone: [facility] 09-23-2021 14:00-0400 Diastolic blood pressure 64 mm[Hg] Keyanna Castellanos MD Work Phone: [facility] 09-23-2021 14:00-0400 Heart rate 68 /min Keyanna Castellanos MD Work Phone: [facility] 09-23-2021 14:00-0400 Respiratory rate 17 /min Keyanna Castellanos MD Work Phone: [facility] 09-23-2021 14:00-0400 SaO2% (BldA) [Mass fraction] 98 % Keyanna Castellanos MD Work Phone: [facility] 09-23-2021 14:00-0400 Systolic blood pressure 134 mm[Hg] Keyanna Castellanos MD Work Phone: [facility] 09-23-2021 12:13-0400 Body height 158.8 cm Keyanna Castellanos MD Work Phone: [facility] 09-23-2021 12:13-0400 Body mass index (BMI) [Ratio] 36.36 kg/m2 Keyanna Castellanos MD Work Phone: [facility] 09-23-2021 12:13-0400 Body temperature 98.1 [degF] Keyanna Castellanos MD Work Phone: [facility] 09-23-2021 12:13-0400 Body weight 91.63 kg Keyanna Castellanos MD Work Phone: [facility] 06-11-2021 11:51-0500 Body height 157.[address] Trevor Vieyra Work Phone: [facility] Work Phone: 06-11-2021 11:51-0500 Body weight 92.[address] Trevor Vieyra Work Phone: [facility] Work Phone: 06-11-2021 11:51-0500 Diastolic blood pressure 73 mm[Hg] Dr. Trevor Vieyra Work Phone: [facility] Work Phone: 06-11-2021 11:51-0500 Heart rate 73 /min Dr. Trevor Vieyra Work Phone: [facility] Work Phone: 06-11-2021 11:51-0500 Respiratory rate 18 /min Dr. Trevor Vieyra Work Phone: [facility] Work Phone: 06-11-2021 11:51-0500 SaO2% (BldA) [Mass fraction] 94 % Dr. Trevor Vieyra Work Phone: [facility] Work Phone: 06-11-2021 11:51-0500 Systolic blood pressure 137 mm[Hg] Dr. Trevor Vieyra Work Phone: [facility] Work Phone: 09-30-2020 09:36-0400 Body mass index (BMI) [Ratio] 37.6 kg/m2 Dr. Trevor Vieyra Work Phone: [facility] Work Phone: 11-22-2019 10:45-0400 BP Diastolic 53 mm[Hg] [facility] [place] 11-22-2019 10:45-0400 BP Systolic 104 mm[Hg] [place], [place] 11-22-2019 10:45-0400 Pulse (Heart Rate) 71 /min [facility] [place] 11-22-2019 10:45-0400 Respiratory Rate 11 /min [facility] 11-22-2019 10:15-0400 Body Temperature 97 [degF] [facility] 11-22-2019 10:15-0400 Pulse Oximetry 99 % [facility] [place] 11-13-2019 15:35-0400 BP Diastolic 63 mm[Hg] [facility] , [place] 11-13-2019 15:35-0400 BP Systolic 118 mm[Hg] [facility] , [place] 11-13-2019 15:35-0400 Pulse (Heart Rate) 71 /min [facility] [place] 11-13-2019 15:35-0400 Pulse Oximetry 98 % Queta Kenny [facility] , [place] 11-13-2019 15:35-0400 Respiratory Rate 17 /min Queta [facility], [place] 11-13-2019 12:15-0400 BMI (Body Mass Index) 37.58 kg/m2 Queta [facility], [place] 11-13-2019 12:15-0400 Body Temperature 97.81 [degF] [facility] [place] 11-13-2019 12:15-0400 Body weight 94.7 kg [facility] [place] 11-13-2019 12:15-0400 Height 158.8 cm [place] 04-26-2017 12:58-0400 BMI (Body Mass Index) 35.84 kg/m2 [facility] [employer] Work Phone: 04-26-2017 12:58-0400 BP Diastolic 60 mm[Hg] [facility] Work Phone: 04-26-2017 12:58-0400 BP Systolic 108 mm[Hg] [facility] Work Phone: 04-26-2017 12:58-0400 Height 157.48 cm Harumi DeFinis [facility] Work Phone: 04-26-2017 12:58-0400 Pulse (Heart Rate) 78 /min Harumi DeFinis [facility] Work Phone: 04-26-2017 12:58-0400 Respiratory Rate 18 /min Harumi DeFinis [facility] Work Phone: 04-26-2017 12:58-0400 Weight 88.91 kg [employer]OT[employer]kathryn DeFinis [facility] Work Phone: 09-05-2014 14:22-0500 BMI (Body Mass Index) 38.41 kg/m2 [facility] Work Phone: 09-05-2014 14:22-0500 BP Diastolic 72 mm[Hg] Radha Blanton RN [facility] Work Phone: 09-05-2014 14:22-0500 BP Systolic 104 mm[Hg] Radha Blanton RN [facility] Work Phone: 09-05-2014 14:22-0500 Height 157.48 cm Radha Blanton RN [facility] Work Phone: 09-05-2014 14:22-0500 Pulse (Heart Rate) 89 /min Radha Blanton RN [facility] Work Phone: 09-05-2014 14:22-0500 Weight 95.26 kg Radha Blanton RN [facility] Work Phone: Encounters Encounter Date Encounter Type Care Provider Facility Start: 04-16-2025 End: 04-16-2025 Patient encounter procedure Christiano Tee NP-C -[facility] Work Phone: Start: 04-16-2025 End: 04-16-[address] Trevor Vieyra MD Work Phone: [facility] Start: 04-01-2025 Non-patient / Non-visit Dr. Radha Booker MD [facility] Work Phone: Start: 04-01-2025 ambulatory Trevor Vieyra Facility:[facility] Start: 04-01-2025 Non-patient / Non-visit Dr. Orozco Of [facility] Start: 03-31-2025 Non-patient / Non-[facility] Work [facility]: Start: 03-31-2025 Non-patient / Non-visit Dr. Orozco Of [facility] Start: 03-30-2025 ambulatory Armando Booker Fac ility:[facility] Start: 03-30-2025 End: 04-01-2025 Evaluation and management of inpatient Dr. Armando Booker MD -Intensive Care Unit Work Phone: Start: 03-30-2025 ambulatory Ernesto Garvin Facility:[facility] Start: 03-30-2025 Non-patient / Non-visit Dr. Anam [facility] Start: 03-30-2025 Non-patient / Non-visit Dr. Sudarshan Garcia MD [facility] Work Phone: Start: 03-29-2025 ambulatory Saadia Agustin Valencia Facility :[facility] Start: 03-29-2025 Non-patient / Non-visit Dr. Heather Valencia MD -[facility] Work Phone: Start: 03-28-2025 End: 03-28-2025 Emergency department patient visit Dr. Yaniv Aguero MD -Emergency Department Work Phone: Start: 03-21-2025 ambulatory Trevor Vieyra Facility:[facility] Start: 03-18-2025 End: 03-18-2025 Telephone encounter Gilberto Vieyra MD Work Phone: [facility] [place] Comment on above: Appointment Request Start: 03-18-2025 End: 03-18-2025 ambulatory [facility] Start: 02-19-2025 End: 03-10-[address] Trevor Vieyra MD -Lab [facility] Start: 02-19-2025 End: 03-10-[address] Trevor Vieyra MD Work Phone: -Lab [facility] Start: 01-15-2025 End: 02-07-[address] Trevor Vieyra MD -Lab [facility] Start: 01-15-2025 End: 02-07-[address] Trevor Vieyra MD Work Phone: -Lab [facility] Start: 12-17-2024 End: 01-07-[address] Trevor Vieyra MD -Lab [facility] Start: 12-17-2024 End: 01-07-[address] Trevor Vieyra MD Work Phone: -Lab [facility] Start: 12-10-2024 End: 12-10-2024 ambulatory TREVOR VIEYRA [facility] Start: 11-23-2024 End: 12-08-[address] Trevor Vieyra MD Work Phone: [facility] Work Phone: Start: 11-23-2024 End: 12-08-[address] Trevor Vieyra MD -Lab [facility] Start: 10-18-2024 End: 10-18-[address] Tervor Vieyra MD Work Phone: [facility] Work Phone: Start: 10-18-2024 End: 10-18-2024 Patient encounter procedure Christiano Tee [employer]-C -Lab, [facility] Start: 10-18-2024 End: 10-18-2024 ambulatory Christiano Tee [employer] Facility:[facility] Start: 10-11-2024 End: 11-07-[address] Trevor Vieyra MD -Lab [facility] Start: 10-11-[address] Trevor Vieyra MD -Lab, [facility] Start: 10-11-2024 End: 11-07-2024 ambulatory Trevor Vieyra Facility:[facility] Start: 10-11-2024 End: 10-11-2024 Patient encounter procedure Christiano Tee [employer]ARD OF DIRECT[employer]-C -[facility] Work Phone: Start: 10-11-2024 End: 10-11-2024 ambulatory Christiano Tee [employer] [place] Start: 09-17-2024 End: 09-17-2024 Emergency department patient visit Dr. Trevor Vieyra MD Work Phone: -Emergency Department Work Phone: Start: 09-11-2024 End: 10-08-[address] Trevor Vieyra MD -Lab, [facility] Start: 09-11-[address] Trevor Vieyra MD -Lab, [facility] Start: 09-11-2024 End: 10-08-[address] Trevor Vieyra MD Work Phone: [facility] Work Phone: Start: 09-04-2024 End: 09-07-2024 ambulatory [facility] Start: 09-04-2024 End: 09-07-[address] Trevor Vieyra MD -Lab, [facility] Start: 09-03-2024 End: 09-03-2024 ambulatory [facility] Start: 08-21-2024 End: 08-21-2024 Patient encounter procedure Kieran Hampton PA -[facility] Work Phone: Start: 08-21-2024 End: 08-21-2024 ambulatory [facility] Start: 07-23-2024 End: 07-23-[address] Trevor Vieyra MD -Laboratory, [facility] Start: 07-23-2024 End: 07-23-2024 ambulatory Trevor Vieyra [facility] Start: 07-18-2024 End: 08-10-[address] Trevor Vieyra MD -Lab, [facility] Start: 07-18-2024 End: 08-10-2024 [facility] Start: 07-09-2024 End: 07-09-2024 Office outpatient visit 15 minutes Gilberto Vieyra MD Work Phone: [facility] [place] Comment on above: Ventricular tachycar pradeep (HCC) (Primary Dx) Start: 07-09-2024 End: 07-09-2024 ambulatory [facility] Start: 07-08-2024 End: 07-08-2024 Emergency department patient visit Dr. Trevor Preston DO -Emergency Department Work Phone: Start: 06-18-2024 End: 07-10-[address] Trevor Vieyra MD -Lab, [facility] Start: 06-18-2024 End: 07-10-2024 [facility] Start: 06-06-2024 End: 06-09-[address] Trevor Vieyra MD -Lab, [facility] Start: 06-06-2024 End: 06-09-2024 ambulatory Trevor Vieyra Facility:[facility] Start: 05-28-2024 End: 05-28-2024 ambulatory TREVOR VIEYRA [facility] Start: 05-08-2024 End: 05-10-2024 ambulatory Trevor Vieyra Facility:[facility] Start: 02-13-2024 ambulatory Lucas Ruff RN [facility] Start: 02-13-2024 Home visit Lucas Ruff RN [facility] Comment on above: Population Health Na vigation Outreach ([facility] Attributed Member - Added to Attribution List ) Start: 10-28-2023 End: 11-08-2023 ambulatory [facility] Work Phone: Start: 10-28-2023 End: 11-08-2023 Discharged Recurring [facility]-Laboratory Work Phone: Start: 06-23-2023 End: 06-23-[address] Trevor Vieyra Work Phone: [facility] Work Phone: Start: 06-23-2023 End: 06-23-[address] Trevor Vieyra Work Phone: [facility]-Laboratory, [facility] Start: 06-20-2023 End: 06-20-2023 Office outpatient visit 25 minutes Gilberto Vieyra MD Work Phone: [facility] Comment on above: Ventricular tachycar pradeep (HCC) Start: 06-15-2023 Non-patient / Non-visit Dr. Adalberto Vieyra Work Phone: [facility] Start: 06-15-2023 End: 06-15-[address] Trevor Vieyra Work Phone: [facility] Work Phone: Start: 06-15-2023 End: 06-15-[address] [facility] Work Phone: Start: 05-11-2023 Telephone encounter Gilberto Vieyra MD Work Phone: [facility] Comment on above: Missed Appointment Start: 05-10-2023 End: 05-10-[address] Trevor Vieyra Work Phone: [facility] Work Phone: Start: 05-10-2023 End: 05-10-[address] Trevor Vieyra Work Phone: [facility] Work Phone: Start: 05-10-2023 End: 05-10-[address] Trevor Vieyra Work Phone: [facility]-Occupational Therapy Work Phone: Start: 05-10-[address] [facility] Work [facility]: Start: 04-28-2023 End: 04-28-2023 ambulatory CHRISTIANO HUNTLEY Facility:[facility] Start: 04-28-2023 End: 04-28-2023 Patient encounter procedure Christiano Huntley MD Work Phone: Urology Comment on above: Polycystic kidney, u nspecified (Primary Dx) Start: 04-07-2023 End: 04-07-[address] Trevor Vieyra Work Phone: [facility] Start: 03-31-2023 End: 03-31-[address] Trevor Vieyra Work Phone: [facility] Start: 03-16-2023 End: 03-16-2023 Emergency department patient visit Dr. Trevor Vieyra Work Phone: [facility]-Emergency Department Work Phone: Start: 03-08-2023 Telephone encounter Andrea CALDERA Comment on above: Follow Up Phone Call ; Follow Up (All Clear) Start: 02-18-2023 Telephone encounter Christiano Huntley MD Work Phone: Urology Comment on above: Results (CT) Start: 02-18-2023 End: 02-18-2023 Admission to establishment [facility] Start: 02-18-2023 End: 02-18-2023 Preprocedural examination done Pst 1 [facility] Work Phone: Start: 02-18-2023 End: 02-18-2023 ambulatory TREVOR VIEYRA Pre Surgical Testing Comment on above: Preop examination; Polycystic kidney; Cardiac defibrillator in place; Atherosclerosis of [place] coronary artery of [place] heart without angina pectoris; Mixed hyperlipidemia; End-stage renal disease (HCC) Start: 02-16-2023 Preprocedural examin ation done Pst 1 [facility] Work Phone: Start: 02-16-2023 Telephone encounter Doris Garvin [facility] Start: 02-16-2023 Encounter for other preprocedural examination CHRISTIANO HUNTLEY [facility] Start: 02-16-2023 End: 02-16-2023 ambulatory CHRISTIANO HUNTLEY Facility:[facility] Start: 02-16-2023 End: 02-16-2023 Subsequent hospital visit by physician [facility] (I-Stat) Work Phone: Cat Scan Comment on above: Polycystic kidney [Q 61.3] Start: 02-11-2023 Orders Only Christiano lópez MD Work Phone: Urology Comment on above: Polycystic kidney (P rimary Dx) Start: 02-10-2023 End: 02-10-2023 ambulatory CHRISTIANO HUNTLEY Facility:[facility] Start: 02-10-2023 End: 02-10-2023 Patient encounter procedure Christiano Huntley MD Work Phone: Urology Comment on above: Polycystic kidney (P rimary Dx); Abdominal pain, unspecified abdominal location Start: 01-20-2023 End: 02-07-[address] Trevor Vieyra Work Phone: [facility] Work Phone: Start: 01-20-2023 End: 02-07-[address] Trevor [facility] Work Phone: Start: 01-20-2023 End: 01-20-[address] Trevor Vieyra Work Phone: [facility] Work Phone: Start: 12-09-2022 End: 12-09-[address] Trevor Vieyra Work Phone: [facility] Work Phone: Start: 12-09-2022 End: 12-09-[address] Trevor Vieyra Work Phone: [facility] Work Phone: Start: 11-16-2022 End: 12-08-[address] Trevor Vieyra Work Phone: [facility] Work Phone: Start: 11-16-2022 End: 12-08-[address] Trevor Vieyra Work Phone: [facility] Start: 10-28-2022 End: 10-28-[address] Trevor Vieyra Work Phone: [facility] Work Phone: Start: 10-28-2022 End: 10-28-[address] Trevor Vieyra Work Phone: [facility] Start: 10-25-2022 End: 11-07-[address] Trevor Vieyra Work Phone: [facility] Work Phone: Start: 10-25-2022 End: 11-07-[address] Trevor Vieyra Work Phone: [facility] Start: 10-25-[address] Trevor Vieyra Work Phone: [facility] Start: 10-19-2022 End: 10-19-[address] Trevor Vieyra Work Phone: [facility] Work Phone: Start: 10-19-2022 End: 10-19-[address] Trevor Vieyra Work Phone: [facility] Start: 10-06-2022 End: 10-06-[address] Trevor Vieyra Work Phone: [facility] Start: 2022 End: 10-09-[address] Trevor Vieyra Work Phone: [facility] Work Phone: Start: 2022 End: 10-09-[address] Trevor Vieyra Work Phone: [facility] Start: 08-17-2022 End: 08-17-2022 ambulatory [facility] Work Phone: Start: 08-17-2022 End: 08-17-2022 Discharged Recurring [facility] Start: 07-29-2022 End: 07-29-2022 ambulatory [facility] Work Phone: Start: 07-29-2022 End: 07-29-2022 Patient encounter procedure [facility] Start: 07-20-2022 End: 07-20-2022 ambulatory [facility] Work Phone: Start: 07-20-2022 End: 07-20-2022 Patient encounter procedure [facility] Start: 05-27-2022 End: 05-27-[address] Trevor Vieyra Work Phone: [facility] Work Phone: Start: 05-27-2022 End: 05-27-[address] Trevor Vieyra Work Phone: [facility]-Laboratory Start: 04-08-2022 End: 04-08-2022 Patient encounter procedure Christiano Huntley MD Work Phone: Urology Comment on above: Polycystic kidney (P rimary Dx); Gross hematuria Start: 03-30-2022 End: 03-30-[address] Trevor Vieyra Work Phone: [facility] Work Phone: Start: 03-30-2022 End: 03-30-[address] Trevor Vieyra Work Phone: [facility]-Laboratory Start: 03-30-2022 End: 03-30-[address] Trevor Vieyra Work Phone: [facility] Start: 03-15-2022 End: 03-15-2022 Emergency department patient visit Dr. Trevor Vieyra Work Phone: [facility]-Emergency Department Start: 02-27-2022 Telephone encounter Eduardo Martinez [facility] Department Comment on above: PostOp Follow-up Start: 02-24-2022 Telephone encounter Christiano Huntley MD Work Phone: [facility] Comment on above: Results Start: 02-22-2022 Follow-up encounter Ann-Marie Figueroa MD Work Phone: [facility] Start: 02-22-2022 Patient encounter procedure Ann-Marie Figueroa MD Work Phone: [place] [facility] NOT LISTED Start: 02-22-2022 Telephone encounter Christiano Huntley MD Work Phone: Urology Comment on above: Surgical Followup Start: 02-18-2022 Non-patient / Non-visit Dr. Adalberto Vieyra Work Phone: [facility] Start: 02-18-2022 End: 02-18-[address] Trevor Vieyra Work Phone: [facility]-Cardiovascula r Services Start: 02-11-2022 End: 02-11-2022 Admission to [address] Start: 02-11-2022 End: 02-11-[address] 2 Pre Surgical Testing Comment on above: Pre-op exam (Primary Dx); Polycystic kidney disease; Coronary artery disease involving [place] heart without angina pectoris, unspecified vessel or [...] Start: 02-01-2022 End: 02-01-2022 Patient encounter procedure [facility]-Laboratory, Specimen Start: 01-30-2022 End: 02-07-2022 Discharged Recurring [facility]-Laboratory Start: 01-30-2022 End: 01-30-2022 Emergency department patient visit [facility]-Emergency Department Start: 01-29-2022 Telephone encounter Christiano [...] 01-26-2022 End: 01-26-2022 Emergency department patient visit [facility]-Emergency Department Start: 01-22-2022 Telephone encounter Deb lester VENEER TRIMMER.COAL WHEELER Work Phone: Urology Comment on above: Results; Appointment Start: 01-22-2022 End: 01-22-2022 Patient encounter procedure [facility]-Outpatient Pavilion Ultrasound Start: 01-21-2022 Follow-up encounter Matthew Chen MD Work Phone: [facility] Start: 01-21-2022 Patient encounter procedure Matthew Chen MD Work Phone: [facility] Department Start: 01-21-2022 End: 01-21-2022 Subsequent hospital visit by physician Mri 3 Radio Main Q (I-Stat/1.5t/3t) Work Phone: MRI Q Comment on above: Gross hematuria [R31 .0] Start: 01-21-2022 End: 01-21-2022 Subsequent hospital visit by physician Xr Chest Main J1 Work Phone: Radiology Comment on above: Microscopic hematuri a [R31.29] Start: 01-18-2022 End: 01-18-2022 Patient encounter procedure [facility]-Outpatient Breast Imaging Start: 12-17-2021 Telephone encounter Deb lester VENEER TRIMMER.COAL WHEELER Work Phone: Urology Comment on above: Results Start: 12-16-2021 Telephone encounter Deb lester APRN.COAL WHEELER Work Phone: General Surgery Comment on above: Results Start: 12-15-2021 End: 12-15-2021 Patient encounter procedure Deb Howard VENEER TRIMMER.COAL WHEELER Work Phone: Urology Comment on above: Gross hematuria (Delisa janet Dx); Polycystic kidney, unspecified Start: 11-25-2021 End: 12-08-2021 [facility] [facility] Start: 11-25-2021 [facility] Start: 09-29-2021 End: 09-29-[address] [facility] Start: 09-23-2021 End: 09-23-2021 Subsequent hospital visit by physician Keyanna Castellanos MD Work Phone: [facility] General Surgery Start: 08-18-2021 End: 09-07-[address] Trevor Vieyra Work Phone: [facility] Start: 07-30-2021 End: 07-30-[address] Trevor Vieyra Work Phone: [facility] Start: 07-21-2021 End: 08-10-[address] Trevor Vieyra Work Phone: [facility] Start: 06-23-2021 End: 06-23-[address] Trevor Vieyra Work Phone: [facility] Start: 06-11-2021 End: 06-11-[address] Trevor Vieyra Work Phone: [facility] Start: 01-17-2020 End: 01-17-2020 Subsequent hospital visit by physician Trevor Vieyra LAB [facility] Comment on above: Gross hematuria [R31 .0] Start: 11-22-2019 End: 11-22-2019 Subsequent hospital visit by physician Gilberto Vieyra Work Phone: [facility] Action Installer Comment on above: Acute pain (Primary Dx) Start: 11-13-2019 End: 11-13-2019 Subsequent hospital visit by physician Queta Cox Work Phone: [facility] General Surgery Comment on above: Arrived Start: 12-13-2017 Ambulatory Queta Cox [facility] System Start: 08-25-2017 Ambulatory Queta Cox [facility] Start: 05-26-2017 Ambulatory [facility] Start: 05-24-2017 [facility] Procedures Date Procedure Procedure Detail Performing Clinician Start: 04-01-[address] Trevor Vieyra MD Work Phone: Start: 04-01-[address] Adalberto Vieyra MD Work Phone: Start: 03-30-2025 Plain X-ray abdomen Dr. Trevor Vieyra MD Work Phone: Start: 03-30-2025 Cardiovascular stres s test using pharmacologic stress agent Dr. Trevor Vieyra MD Work Phone: Start: 03-30-2025 Serum inorganic phos phate measurement Dr. Trevor Vieyra MD Work Phone: Start: 03-29-2025 CT of chest without contrast Dr. Trevor Vieyra MD Work Phone: Start: 03-29-2025 Radiologic exam ches t [address] Trevor Vieyra MD Work Phone: Start: 03-28-2025 Radiologic exam ches t [address] Trevor Vieyra MD Work Phone: Start: 10-11-2024 Evaluation of diagno stic study [...] Comment: Speci men Type: BLOOD SPECIMENOrdering Facility: [facility] Address: [place] [address] Performed By: #### T [id number] ####[facility] BLOOD BANKCLIA [id number] [place] [address] [place] Start: 02-16-2023 Ct abdomen [...] w/o & w/ contrast material Deb Howard VENEER TRIMMER.COAL WHEELER Work Phone: Start: 01-21-2022 ICD CLINIC CHECK Rafiq Chen MD Work Phone: Start: 01-21-2022 ICD CLINIC CHECK Rafiq Chen MD Work Phone: Start: 01-21-2022 Radiologic exam ches t 2 views Deb Howard VENEER TRIMMER.COAL WHEELER Work Phone: Start: 01-18-2022 End: 01-18-2022 Screening [...] months Mehnaz Parker Start: 04-26-2017 End: 04-26-2017 MMM Ernesto Garvin MD Start: 06-08-2016 Placement of stent i n coronary artery Status post cardiac stent placement Radha Blanton RN Start: 04-22-2016 History of placement of stent for coronary artery disease History of coronary artery stent placement Christiano Tee [employer]-C Comment on above: XAN-KUU-Tiqh RCA w/ 3.5 x 15 mm Xience Stent, Mid RCA w/ 3.25 x 23 mm Xience Stent and POBA-RBLB 04/21/2016; PCI-Distal RCA/PDA Bifurcation with T stent w/ 2.75 x 18 mm Xience Stent and PGV-Fnth-WFD w/ 2.5 x 23 mm Xience Stent and Mid-LAD w/ 3.0 x 15 mm Xience Stent 04/22/16 SARS-CoV-2 & FLU Ant igen (Rapid) Dr. Trevor Vieyra Work Phone: Urine culture Plan of Treatment Date Care Activity Detail Author Start: 09-10-2039 RSV Immunization for Adults (1 - 1-dose 75+ series) RSV Immunization for Adults (1 - 1-dose 75+ series) [employer] Start: 10-19-2032 DTaP/Tdap/Td Vaccines (2 - Td or Tdap) DTaP/Tdap/Td Vaccines (2 - Td or Tdap) [facility] Start: 10-19-2032 Urine microalbumin profile DTaP,Tdap,Td Vaccine (2 - Td or Tdap) [facility] Start: 2029 PNEUMOCOCCAL (4 - PPSV23 or PCV20) PNEUMOCOCCAL (4 - PPSV23 or PCV20) [facility] Start: 2029 Pneumococcal 0-64 years Vaccine (4 of 4 - PPSV23) Pneumococcal 0-64 years Vaccine (4 of 4 - PPSV23) [facility] Start: 2029 Pneumococcal vaccination [facility] Start: 2029 Pneumococcal Vaccine: Pediatrics (0 to 5 Years) and At-Risk Patients (6 to 64 Years) (4 - PPSV23 if available, else PCV20) Pneumococcal Vaccine: Pediatrics (0 to 5 Years) and At-Risk Patients (6 to 64 Years) (4 - PPSV23 if available, else PCV20) [facility] Start: 2029 Pneumococcal Vaccine: Pediatrics (0 to 5 Years) and At-Risk Patients (6 to 64 Years) (4 - PPSV23 or PCV20) Pneumococcal Vaccine: Pediatrics (0 to 5 Years) and At-Risk Patients (6 to 64 Years) (4 - PPSV23 or PCV20) [facility] Start: 06-26-2026 Pneumococcal Vaccine: 50+ Years (3 of 3 - PCV20 or PCV21) Pneumococcal Vaccine: 50+ Years (3 of 3 - PCV20 or PCV21) [facility] Start: 03-03-2026 DIABETES SCREEN DIABETES SCREEN [facility] Start: 03-03-2026 Diabetes Screening Diabetes Screening [facility] Start: 09-30-2025 End: 09-30-2025 Professional / ancillary services management 09/30/2025 8:30 AM EDT Ancillary Procedure [facility] - [facility] [address] [place] [phone] [facility] Start: 07-01-2025 End: 07-01-2025 Patient encounter procedure 07/01/2025 10:00 AM EST Office Visit [facility] [address] [place] [phone] Gilberto Vieyra MD [address] [place], [place] [phone] [facility] Start: 07-01-2025 End: 07-01-2025 Professional / ancillary services management 07/01/2025 9:30 AM EST Ancillary Procedure [facility] [address] [place] [phone] [facility] Start: 04-01-2025 Non-patient / Non-visit Non-patient / Non-visit -[facility] Work Phone: Start: 04-01-2025 Patient discharge [facility] Start: 04-01-2025 End: 04-01-2025 [facility] Start: 04-01-2025 Hemodialysis care [facility] Start: 04-01-2025 Non-patient / Non-visit Non-patient / Non-visit [facility] Start: 03-31-2025 Non-patient / Non-visit Non-patient / Non-visit [facility] Work Phone: Start: 03-31-2025 Non-patient / Non-visit Non-patient / Non-visit [facility] Start: 03-31-2025 [facility] Start: 03-30-2025 Admission procedure [facility] Start: 03-30-2025 End: 04-01-2025 Evaluation and management of inpatient [facility] essential hypertension -Intensive Care Unit Work Phone: Start: 03-30-2025 Referral to portrait photographer [facility] Start: 03-30-2025 [facility] Start: 03-30-2025 Referral to director of player personnel [facility] Start: 03-29-2025 Following clinical pathway protocol [facility] Start: 03-29-2025 Assessment of risk of venous thromboembolism [facility] Start: 03-29-2025 Incentive spirometry [facility] Start: 03-29-2025 Inhalation therapy procedure [facility] Start: 03-29-2025 Insertion of catheter into peripheral vein [facility] Start: 03-29-2025 Introduction of urinary catheter [facility] Start: 03-29-2025 Measuring intake and output [facility] Start: 03-29-2025 Oxygen therapy [facility] Start: 03-29-2025 Providing care according to standard [facility] Start: 03-29-2025 Provision of activity privileges [facility] Start: 03-29-2025 Referral to service [facility] Start: 03-29-2025 Tobacco use cessation education [facility] Start: 03-29-2025 [facility] Start: 03-29-2025 Admission procedure [facility] Start: 03-29-2025 [facility] Start: 03-28-2025 [facility] Start: 03-28-2025 [facility] Start: 03-28-2025 [facility] Start: 03-28-2025 Emergency dept visit high severity&threat funcj EMERGENCY DEPT VISIT HI MDM [facility] Start: 03-11-2025 COVID-19 Vaccine ( season) COVID-19 Vaccine () [facility] Start: 03-11-2025 Influenza vaccination Influenza Vaccine (#1) [facility] Start: 02-25-2025 DIABETES SCREEN DIABETES SCREEN [facility] Start: 02-24-2025 DIABETES SCREEN DIABETES SCREEN [facility] Start: 02-22-2025 DIABETES SCREEN DIABETES SCREEN [facility] Start: 09-17-2024 [facility] Start: 2024 RSV Immunization aged 60 or older (1 - 1-dose 60+ series) RSV Immunization aged 60 or older (1 - 1-dose 60+ series) [facility] Start: 2024 RSV Immunization for Adults (1 - Risk 60-74 years 1-dose series) RSV Immunization for Adults (1 - Risk 60-74 years 1-dose series) [facility] Start: 09-03-2024 End: 09-03-2024 Professional / ancillary services management 09/03/2024 4:30 PM EST Ancillary Procedure [facility] [address] [place] [phone] [facility] Start: 07-11-2024 Medicare Advantage Annual Wellness Visit Medicare [facility] Annual Wellness Visit [facility] Start: 07-08-2024 [facility] Start: 06-20-2024 End: 06-20-2024 Patient encounter procedure 06/20/2024 8:30 AM EST Office Visit [facility] [address] [place] [phone] Gilberto Vieyra MD [address] [place] [address] [place] [phone] [facility] Start: 03-11-2024 COVID-19 Vaccine () COVID-19 Vaccine () [facility] Start: 03-11-2024 Influenza vaccination Influenza Vaccine (#[facility] Start: 03-03-2024 Complete blood count Hemoglobin/Hematocrit [facility] Start: 03-03-2024 Creatinine measurement Serum Creatinine [facility] Start: 03-03-2024 HEMOGLOBIN/HEMATOCRIT HEMOGLOBIN/HEMATOCRIT [facility] Start: 03-03-2024 SERUM CREATININE SERUM CREATININE [facility] Start: 02-19-2024 BP CONTROLLED (<130/80) BP CONTROLLED (<130/80) [facility] in Start: 07-19-2023 End: 07-19-2023 Professional / ancillary services management 07/19/2023 7:00 AM EST Ancillary Procedure [facility] [address] [place] [phone] [facility] Start: 07-11-2023 Medicare Advantage Annual Wellness Visit Medicare Advantage Annual Wellness Visit [facility] Start: 06-20-2023 End: 06-20-2023 Patient encounter procedure 06/20/2023 9:00 AM EST Office Visit [facility] [address] [place] [phone] Gilberto Vieyra MD [address] [place] [address] [place] [phone] [facility] Start: 03-21-2023 End: 03-21-2023 Professional / ancillary services management 03/21/2023 7:00 AM EDT Ancillary Procedure [facility] [address] [place] [phone] [facility] Start: 03-16-2023 [facility] Start: 03-11-2023 Covid-19 Vaccine () Covid-19 Vaccine () [facility] Start: 03-11-2023 Influenza vaccination [facility] Start: 02-25-2023 HEMOGLOBIN/HEMATOCRIT HEMOGLOBIN/HEMATOCRIT [facility] Start: 02-25-2023 SERUM CREATININE SERUM CREATININE [facility] Start: 02-18-2023 End: 04-20-2023 Bacteria identified in Urine by Culture URINE CULTURE Microbiology Routine Polycystic kidney Expected: 02/18/2023, Expires: 04/20/2023 [facility] Work Phone: Comment on above: Expected: 02/18/2023, Expires: 3 Start: 02-18-2023 End: 04-20-2023 TYPE AND SCREEN,30 DAY TYPE AND SCREEN,30 DAY Blood Bank Routine Polycystic kidney Expected: 02/18/2023, Expires: 04/20/2023 [facility] Work Phone: Comment on above: Expected: 02/18/2023, Expires: 3 Start: 01-18-2023 Screening for malignant neoplasm of breast Mammogram [facility] Start: 07-11-2022 DEPRESSION ASSESSMENT DEPRESSION ASSESSMENT [facility] Start: 03-11-2022 Influenza vaccination INFLUENZA (#1) [facility] Start: 02-22-2022 End: 04-24-2022 Bacteria identified in Urine by Culture URINE CULTURE Microbiology Routine Gross hematuria Expected: 02/22/2022, Expires: 04/24/2022 [facility] Work Phone: Comment on above: Expected: 02/22/2022, Expires: 2 Start: 02-02-2022 End: 02-02-2023 SARS-CoV-2 (COVID-19) RNA [Presence] in Respiratory specimen by MISAEL with probe detection PRE-PROCEDURE & PRE-OPERATIVE COVID Microbiology Routine Polycystic kidney Expected: 02/02/2022, Expires: 02/02/2023 [facility] Work Phone: Comment on above: Expected: 02/02/2022, Expires: 3 Start: 12-29-2021 End: 12-29-2021 Nursing evaluation of patient and report 12/29/2021 Nurse Only Cardiology [facility] Webber[facility] Start: 09-12-2021 COVID-19 VACCINE (4 - Booster for Pfizer series) COVID-19 VACCINE (4 - Booster for Pfizer series) [facility] Start: 07-11-2021 DEPRESSION ASSESSMENT DEPRESSION ASSESSMENT [facility] Start: 07-10-2021 COVID-19 VACCINE (4 - Booster for Pfizer series) COVID-19 VACCINE (4 - Booster for Pfizer series) [facility] Start: 07-10-2021 COVID-19 VACCINE (4 - Pfizer series) COVID-19 VACCINE (4 - Pfizer series) [facility] Start: 03-16-2021 COVID-19 Vaccine (3 - Booster for Pfizer series) COVID-19 Vaccine (3 - Booster for Pfizer series) [facility] Start: 03-11-2020 Influenza vaccination [place], [place] Start: 12-06-2019 End: 12-06-2019 Nurse Only 12/06/2019 Nurse Only Cardiology Doris Webber RN [facility] Start: 06-17-2019 Diabetes screen Diabetes screen [place], [place] Start: 12-27-2018 Annual Wellness Visit (AWV) Annual Wellness Visit (AWV) [facility] Start: 10-25-2017 End: 10-25-2017 Appointment Appointment [facility] Work Phone: Start: 06-21-2017 Creatinine measurement Creatinine monitoring [facility] Start: 06-21-2017 Potassium monitoring Potassium monitoring [facility] Start: 04-26-2017 End: 04-26-2017 Follow Up Appt 6 months Follow Up Appt 6 months [facility] Work Phone: Start: 04-26-2017 End: 04-26-2017 MMM MMM [facility] Work Phone: Start: 04-26-2017 End: 04-26-2017 Appointment Appointment [facility] Work Phone: Start: 04-22-2017 Lipid [facility] Start: 02-08-2017 Pneumococcal 0-64 years Vaccine (2 of 3 - PCV13) Pneumococcal 0-64 years Vaccine (2 of 3 - PCV13) [place], [place] Start: 09-25-2014 End: 09-25-2014 Mri spinal canal cervical w/o contrast matrl MRI Cervical Spine [facility] Work Phone: Start: 2014 Screening for malignant neoplasm of breast Breast cancer screen [facility] Start: 2014 Screening for malignant neoplasm of colon Colon cancer screen colonoscopy [place], [place] Start: 2014 Shingles Vaccine (1 of 2) Shingles Vaccine (1 of 2) [facility] Start: 2014 SHINGRIX VACCINE (1 of 2) SHINGRIX VACCINE (1 of 2) [facility] Start: 2014 Tuberculosis screening COLORECTAL CANCER SCREENING,SEE MODIFIER [facility] Start: 2014 Zoster Vaccines (1 of 2) Zoster Vaccines (1 of 2) [facility] Start: 09-05-2014 End: 09-05-2014 Radex spine cervical 2 or 3 views X-Ray, Spine, Cervical [facility] Work Phone: Start: 04-23-2014 Hepatitis B Vaccine (4 of 5 - Risk Dialysis 4-dose series) Hepatitis B Vaccine (4 of 5 - Risk Dialysis 4-dose series) [facility] Start: 04-23-2014 Hepatitis B Vaccines (3 of 3 - 19+ 3-dose series) Hepatitis B Vaccines (3 of 3 - 19+ 3-dose series) [facility] Start: 02-11-2014 HEPATITIS B (4 of 4 - 4-dose series) HEPATITIS B (4 of 4 - 4-dose series) [facility] Start: 02-11-2014 Hepatitis B Vaccines (4 of 4 - 4-dose series) Hepatitis B Vaccines (4 of 4 - 4-dose series) [facility] Start: 2009 COLOGUARD (FIT-DNA) COLOGUARD (FIT-DNA) [facility] Start: 2009 Colonoscopy COLONOSCOPY [facility] Start: 2009 COLORECTAL CANCER SCREENING COLORECTAL CANCER SCREENING [facility] Start: [address] COLONOGRAPHY [facility] Start: 2009 DIABETES SCREEN DIABETES SCREEN [facility] Start: 2009 FECAL OCCULT BLOOD FECAL OCCULT BLOOD [facility] Start: 2009 Lipid 1996 panel - Serum or Plasma Lipid Screening [facility] Start: 2009 Lipid panel Lipid Screening [facility] Start: 2009 LIPID SCREEN LIPID SCREEN [facility] Start: 2009 Screening for malignant neoplasm of colon [facility] Start: 2009 SIGMOIDOSCOPY SIGMOIDOSCOPY [facility] Start: 2004 Mammography [facility] Start: 2004 Screening for malignant neoplasm of breast Mammogram Screening [facility] Start: 1994 HPV TESTING HPV TESTING [facility] Start: 1994 Screening for malignant neoplasm of cervix [facility] Start: 1985 PAP TESTING PAP TESTING [facility] Start: 1985 Screening for malignant neoplasm of cervix [facility] Start: 09-10-1983 DTaP/Tdap/Td vaccine (1 - Tdap) DTaP/Tdap/Td vaccine (1 - Tdap) [facility] Start: 09-10-1983 DTaP/Tdap/Td Vaccines (1 - Tdap) DTaP/Tdap/Td Vaccines (1 - Tdap) [facility] Start: 09-10-1983 Urine microalbumin profile DTAP,TDAP,TD (1 - Tdap) [facility] Start: 1982 ANNUAL PCP TEAM CHRONIC DISEASE VISIT ANNUAL PCP TEAM CHRONIC DISEASE VISIT [facility] Start: 1982 Anxiety Screening Anxiety Screening [facility] Start: 1982 Depression Screening Depression Screening [facility] Start: 1982 Diabetes mellitus screening Diabetes Screening [facility] Start: 1982 Hepatitis B surface antibody level LDL CHOLESTEROL [facility] Start: 1982 HEPATITIS C SCREENING HEPATITIS C SCREENING [facility] Start: 1982 Hepatitis C screening Hepatitis C Screening [facility] Start: 1982 HIV SCREENING HIV SCREENING [facility] Start: 1982 HIV screening HIV Screening [facility] [facility] Start: 09-10-1979 HIV screening HIV screen [facility] Start: 1976 Adult depression screening assessment DEPRESSION SCREENING [facility] Start: 1976 Depression Screen Depression Screen [facility] Start: 1965 MMR Vaccines (1 of 1 - Standard series) MMR Vaccines (1 of 1 - Standard series) [facility] Start: 1964 HEPATITIS B (1 of 3 - 3-dose series) HEPATITIS B (1 of 3 - 3-dose series) [facility] Start: 1964 Hepatitis C screening Hepatitis C screen [facility] Start: 1964 HIV screening HIV Screening [facility] Start: 1964 Lipid panel Lipid Panel [facility] Start: 1964 Medicare Advantage Annual Wellness Visit (AWV) Medicare Advantage Annual Wellness Visit (AWV) [facility] Start: 1964 Screening for malignant neoplasm of colon [facility] Start: 1964 Thyroid stimulating hormone measurement TSH Level [facility] Ambulatory ECG [facility] Bacteria identified in Urine by Culture URINE CULTURE Microbiology Routine Gross hematuria Polycystic kidney, unspecified Ordered: 12/15/2021 [facility] Work Phone: Comment on above: Ordered: 12/15/2021 End: 03-11-2024 Ct abdomen & pelvis w/o contrast material CT ABD/PEL WO IVCON Radiology Routine Polycystic kidney 1 Occurrences starting 02/10/2023 until 03/11/2024 [facility] Work Phone: Comment on above: 1 Occurrences starting 02/10/2023 until 03/11/2024 Cystourethroscopy CYSTO.PANENDO Procedures Routine Gross hematuria Ordered: 12/16/2021 [facility] Work Phone: Comment on above: Ordered: 12/16/2021 End: 11-22-2019 Diagnostic Cardiac Action Installer Procedure Diagnostic Cardiac Action Installer Procedure Cardiac Cath Routine One Time for 1 Occurrences starting 11/22/2019 until 11/22/2019 [facility] Comment on above: One Time for 1 Occurrences starting 11/08 until 11/22/2019 ECG 12 lead - CLINIC PERFORMED ECG 12 lead - CLINIC PERFORMED CV ECG Routine Ventricular tachycardia (HCC) 06/20/2023 9:15 AM EST [facility] Work Phone: Electrocardiogram, 12-lead Elect rocardiogram, 12-lead ECG Routine 11/22/2019 8:00 AM EDT [facility] End: 11-22-2019 ELECTROPHYSIOLOGY DEVICE ELECTROPHYSIOLOGY DEVICE Echocardiography Routine One Time for 1 Occurrences starting 11/22/2019 until 11/22/2019 [facility] Comment on above: One Time for 1 Occurrences starting 11/08 until 11/22/2019 H&P for surgery H&P FOR SURGERY Procedures Routine Gross hematuria Ordered: 01/29/2022 [facility] Work Phone: Comment on above: Ordered: 01/29/2022 H&P for surgery H&P FOR SURGERY Procedures Routine Polycystic kidney Ordered: 02/11/2023 [facility] Work Phone: Comment on above: Ordered: 02/11/2023 Initiate Oxygen Ther apy Protocol Initiate Oxygen Therapy Protocol Respiratory Care Routine Daily until discontinued starting 11/22/2019 [facility] Comment on above: Daily until discontinued starting 2019 End: 01-15-2023 Mri abdomen w/o & w/contrast material MRI ABDOMEN URO WO/W IVCON Radiology Routine Gross hematuria 1 Occurrences starting 12/16/2021 until 01/15/2023 [facility] Work Phone: Comment on above: 1 Occurrences starting 12/16/2021 until 01/15/2023 Mri abdomen w/o & w/contrast material MRI ABDOMEN URO WO/W IVCON Radiology Routine Gross hematuria 01/21/2022 2:51 PM EDT [facility] Work Phone: End: 01-15-2023 Mri pelvis w/o & w/contrast material MRI PELVIS URO WO/W IVCON Radiology Routine Gross hematuria 1 Occurrences starting 12/16/2021 until 01/15/2023 [facility] Work Phone: Comment on above: 1 Occurrences starting 12/16/2021 until 01/15/2023 Mri pelvis w/o & w/contrast material MRI PELVIS URO WO/W IVCON Radiology Routine Gross hematuria 01/21/2022 2:51 PM EDT [facility] Work Phone: Patient Education [facility] Work Phone: Patient referral [facility] Work Phone: End: 11-13-2019 XA SPECIAL PROCEDURE XA SPECIAL PROCEDURE Imaging Routine Once for 1 Occurrences starting 11/13/2019 until 11/13/2019 [facility] Comment on above: Once for 1 Occurrences starting 11/13/19 until 11/13/2019 XA SPECIAL PROCEDURE XA SPECIAL PROCEDURE Imaging Routine 11/13/2019 3:00 PM EDT [facility] [place] [place] [facility] Immunizations Immunization Date Immunization Notes Care Provider Juli vaughn 05-04-2024 influenza virus vacc ine, unspecified formulation Gilberto Vieyra MD Work Phone: [facility] 04-18-2023 Seasonal, quadrivale nt, recombinant, injectable influenza vaccine, preservative free Christiano Huntley MD Work Phone: [facility] 04-18-2023 influenza virus vacc ine, unspecified formulation Lucas Ruff RN [facility] 10-19-2022 tetanus toxoid, redu colten diphtheria toxoid, and acellular pertussis vaccine, adsorbed Christiano Huntley MD Work Phone: [facility] 03-29-2022 influenza, injectabl e, quadrivalent, preservative free Christiano Huntley MD Work Phone: [facility] 03-29-2022 influenza virus vacc ine, unspecified formulation Doris Webber RN [facility] 06-26-2021 pneumococcal polysaccharide vaccine, 23 valent Christiano Huntley MD Work Phone: [facility] 05-15-2021 Covid (Moderna) Dr. Trevor hobson MD Work Phone: [facility] 04-06-2021 influenza, injectabl e, quadrivalent, preservative free Christiano Huntley MD Work Phone: [facility] 04-06-2021 influenza, seasonal, injectable, preservative free Deb Howard [employer] Work Phone: [facility] 10-14-2020 Covid (Pfizer) Dr. Trevor florez Work Phone: [facility] 09-23-2020 Covid (Pfizer) Dr. Trevor florez Work Phone: [facility] 07-18-2019 pneumococcal conjuga te vaccine, 13 valent Christiano Huntley MD Work Phone: [facility] 04-09-2019 influenza, seasonal, injectable, preservative free Deb Coyner [employer]ER Work Phone: [facility] 03-26-2019 influenza, seasonal, injectable, preservative free Deb Coyner VENEER TR[employer]MER[employer] WHEELER Work Phone: [facility] 04-05-2018 influenza, seasonal, injectable, preservative free Deb Coyner VENEER TR[employer]MER[employer] WHEELER Work Phone: [facility] 03-13-2018 influenza, seasonal, injectable, preservative free Deb Coyner VENEER TR[employer]MER[employer] WHEELER Work Phone: [facility] 04-20-2017 influenza, seasonal, injectable, preservative free Deb Coyner VENEER TR[employer]MER[employer] WHEELER Work Phone: [facility] 04-08-[address] Trevor Vieyra Work Phone: [facility] 04-08-2017 influenza, seasonal, injectable, preservative free Deb Coyner VENEER TRIMMER[employer] WHEELER Work Phone: [facility] 03-11-2017 influenza, seasonal, injectable, preservative free Deb Coyner [employer]ENEER TR[employer]MER[employer] WHEELER Work Phone: [facility] 04-26-[address] Trevor Vieyra Work Phone: [facility] 04-26-2016 influenza, seasonal, injectable, preservative free Deb Coyner [employer]ER [employer]MER[employer]ER Work Phone: [facility] 02-09-2016 pneumococcal polysaccharide vaccine, [address] Trevor Vieyra Work Phone: [facility] 12-12-2015 pneumococcal polysaccharide vaccine, 23 valent Christiano Huntley MD Work Phone: [facility] 12-24-2013 hepatitis B vaccine, adult dosage Christiano Huntley MD Work Phone: [facility] 12-24-2013 hepatitis B vaccine, unspecified formulation Christiano Huntley MD Work Phone: [facility] 11-21-2013 hepatitis B vaccine, adult dosage Christiano Huntley MD Work Phone: [facility] 10-22-2013 hepatitis B vaccine, adult dosage Christiano Huntley MD Work Phone: [facility] 04-10-2013 influenza, injectabl e, quadrivalent, preservative free Dr. Trevor Vieyra MD Work Phone: [facility] 04-10-2013 influenza, seasonal, injectable Christiano Huntley MD Work Phone: [facility] Payers Date Payer Category Payer Self-pay [id number] 2024 Unknown [id number] 2022 Medicare HMO UHC JOY ROY [facility] Address: [address] [place] [address] [id number] 2020 Medicaid [facility] MEDICAID MYC LETITIA [facility] MEDICAID [id number] 2020-Present [phone] [address] [place] [id number] Medicaid [id number] 2019 Medicaid [id number] 2019 Medicare 2019 Medicare [facility] MEDICARE [facility] MEDICARE COMPLETE xxxxxxxxx 2019-Present xxxxxxxxx [id number] 2019 Private Health Insurance [id number] 2007 Medicare [id number] Unknown [id number] 2.16.840.1.074969.3.579.2. 462 Unknown [id number] 2.16.840.1.665462.3.579.2. 462 Unknown [id number] 2.16.840.1.036108.3.579.2. 462 Unknown [id number] 2.16.840.1.117547.3.579.2. 462 Unknown [id number] 2.16.840.1.558927.3.579.2. 462 Unknown [id number] 2.16.840.1.990667.3.579.2. 462 Unknown [id number] 2.16.840.1.236404.3.579.2. 462 Unknown [id number] 2.16.840.1.387344.3.579.2. 462 Unknown [id number] 2.16.840.1.316244.3.579.2. 462 Unknown [id number] 2.16.840.1.685805.3.579.2. 462 Unknown [id number] 2.16.840.1.315282.3.579.2. 462 Unknown [id number] 2.16.840.1.206674.3.579.2. 462 Unknown [id number] 2.16.840.1.709769.3.579.2. 462 Unknown [id number] 2.16.840.1.939166.3.579.2. 462 Unknown [id number] 2.16.840.1.222477.3.579.2. 462 Unknown [id number] 2.16.840.1.290749.3.579.2. 462 Unknown [id number] 2.16.840.1.261902.3.579.2. 462 Unknown [id number] 2.16.840.1.173586.3.579.2. 462 Unknown [id number] 2.16.840.1.167521.3.579.2. 462 Unknown [id number] 2.16.840.1.213195.3.579.2. 462 Unknown [id number] 2.16.840.1.830503.3.579.2. 462 Unknown [id number] 2.16.840.1.315322.3.579.2. 462 Unknown [id number] 2.16.840.1.465218.3.579.2. 462 Unknown [id number] 2.16.840.1.495306.3.579.2. 462 Unknown [id number] 2.16.840.1.889177.3.579.2. 462 Unknown [id number] 2.16.840.1.410536.3.579.2. 462 Unknown [id number] 2.16.840.1.760149.3.579.2. 462 Unknown [id number] 2.16.840.1.639633.3.579.2. 462 Unknown [id number] 2.16.840.1.307973.3.579.2. 462 Social History Date Type Detail Facility Start: 11-13-2019 End: 03-29-2025 Tobacco smoking status NHIS Never smoker [place], [place] Start: 11-13-2019 End: 04-20-2022 Alcohol intake Current non-drinker of alcohol (finding) [place], [place] Start: 1965 Sex Assigned At Not on file M [place], [place] Start: 01-17-2020 End: 02-22-2022 Tobacco use and exposure Never used [facility] Start: 01-17-2020 End: 02-28-2023 Alcohol intake Ex-drinker (finding) [facility] Start: 01-17-2020 End: 02-15-2020 History SDOH Alcohol Frequency 1 [facility] Start: 12-05-2021 End: 04-08-2022 Exposure to SARS-CoV-2 (event) Not sure [facility] Start: 09-23-2021 End: 04-20-2022 Alcohol intake [facility] Work Phone: Start: 06-24-2020 End: 05-10-2023 Tobacco smoking status NHIS Unknown if ever smoked [facility] Start: 02-04-2021 None [facility] Start: 02-04-2021 Homeless [facility] Start: 05-17-2017 Non-smoker [facility] Start: 1965 Sex Assigned At Female W [facility] Start: 02-15-2020 End: 04-20-2022 Alcohol Use Disorder Identification Test - Consumption [AUDIT-C] [facility] Work Phone: How often to you hav e a drink containing alcohol? Never [facility] Work Phone: Average Number of Drinks Not on file [facility] Work Phone: How hard is it for y ou to pay for the very basics like food, housing, medical care, and heating Not very hard [facility] Work Phone: (I/We) worried wheth er (my/our) food would run out before (I/we) got money to buy more. Never true [facility] Work Phone: In the past 12 month s, was there a time when you were not able to pay the mortgage or rent on time? No [facility] Work Phone: Start: 02-08-2022 End: 10-23-2024 Sex Female (finding) [facility] Procedure Code Equipment Code Equipment Origin al Text Equipment Identifier Dates Clip Weck Hem-O- Janelle Xl Gold Polymer Internal Ligate Laparoscopic Sterile - [id number] Start: 02-22-2022 Cheryl 3401 Sq-[id number] [address] art: 06-20-2016 Cheryl A219 Emblem Mri S-Icd [id number] Start: 11-21-2019 Clip Jaredck Hem-O- Janelle Xl Gold Polymer Internal Ligate Laparoscopic Sterile - [id number] Start: 02-22-2022 Icd-A219 Emblem Mri [id number] Start: 11-22-2019 Goals Date Patient Goal Desired Activity /State Functional Status Date Assessment Result Facility 04-01-2025 Functional status Ambulates [facility] Work Phone: Mental Status Date Assessment Result Facility 04-01-2025 Cognitive function Voice/Name [facility] Work Phone: 03-28-2025 Cognitive function Voice/Name [facility] Work Phone: 09-17-2024 Cognitive function Voice/Name [facility] Work Phone: 03-16-2023 Cognitive function Level Of Cons ciousness Awake;Alert [facility] Work Phone: Clinical Notes 11-22-2019 to 04-19-2025 Telephone Encounter - Janneth Murcia - 04/19/2025 3:11 PM EDTTelephone Encounter - Janneth Murcia - 04/19/2025 3:11 PM EDTTelephone Encounter - Mary Ellen Sharif - 03/18/2025 1:51 PM EDT Note Date & Type Note Facility 04-19-2025 Telephone encounter Note Form atting of this note might be different from the original. Received fax from [employer] of the patient's recent office visit notes from 04/16/25. Placed on the desk of [email or web address] for review. Patient has an upcoming visit on 07/01. [facility] 04-19-2025 Miscellaneous Notes Formattin g of this note might be different from the original. Received fax from [facility] of the patient's recent office visit notes from 04/16/25. Placed on the desk of [facility] for review. Patient has an upcoming visit on 07/01. Per secure chaat pt needing 1yr fu w JKS, and in office device check [facility] yrly fu 07/01/25 at 10am documented in this encounter [facility] 04-01-2025 Discharge summary Note Date/Time April 01, 2025 3:23pm [facility] Medical Records Department [address] [place] [id number] Discharge Summary 04/01/25 1518 MR#: [id number] Acct: [id number] Name: SPENCER REDDING Rep #:[id number] : 1965 59 From: Armando paul MD PCP: Dr. Trevor Vieyra MD Status:ADM IN Location: ICU ICU02-1 Providers Date of Admission: 03/30/25 Primary Care Physician: Dr. Trevor Vieyra MD Consultations 03/30/25 07:42 Consult: Nephrology Routine Consulting Provider: Watson Dalal Reason for Consult: ESRD m,w,f EMERGENT Consult: No Notified: Yes Date Notified: 03/30/25 Time Notified: 07:43 Method of Notification: Text 03/30/25 19:47 Consult: Cardiology Routine Consulting Provider: Ernesot Garvin Reason for Consult: Prolonged QTc, recurrent NSVT. stress test negative. EMERGENT Consult: No Notified: Yes Date Notified: 03/30/25 Time Notified: 19:20 Method of Notification: Text Reason For Visit: CHEST PAIN Diagnosis Discharge Diagnosis (1) ESRD (end stage renal disease) on dialysis: Status: Chronic Code(s): N18.6 - End stage renal disease; Z99.2 - Dependence on renal dialysis Medications at Discharge Home Medications sertraline 50 mg tablet 75 mg PO QHS depression 01/19/17 cholecalciferol (vitamin D3) 25 mcg (1,000 unit) tablet 1,000 unit PO QDAY supplement 10/24/17 sevelamer carbonate 800 mg tablet 4,000 mg PO TID binder 30 days #90 tabs 06/11/21 calcium carbonate (Tums) 400 mg PO BID 03/30/22 nitroglycerin 0.4 mg sublingual tablet 0.4 mg sublingual Q5M PRN Chest Pain #25 tabs 10/14/22 ipratropium bromide 21 mcg (0.03 %) nasal spray 2 spray intranasal DAILY 05/10/23 atorvastatin 10 mg tablet 10 mg PO DAILY cholesterol #30 tabs 10/11/24 levothyroxine 25 mcg tablet 25 mcg PO QDAY thyroid 10/11/24 vitamin B complex-vitamin C-folic acid 0.8 mg tablet (Rani-Yahir) 1 tab PO QDAY supplement 10/11/24 warfarin 2 mg tablet 9 mg PO SUTUTHSA blood thinner 10/11/24 warfarin 3 mg tablet 8 mg PO MOWEFR blood thinner 10/11/24 zolpidem 10 mg tablet 10 mg PO QHS PRN insomnia 10/11/24 carvedilol 6.25 mg tablet 6.25 mg PO BID blood pressure 03/29/25 telmisartan 40 mg tablet 40 mg PO BID blood pressure 03/29/25 amlodipine 10 mg tablet 10 mg PO DAILY 30 days #30 tabs 04/01/25 Hospital Course Operations None Procedures 2-D Echocardiogram Summary of Care Provided Minutes Spent on Discharge: 37 Hospital Course: Per HPI: The patient is a 59 y/o F w/ PMHx: Polycystic kidney disease status post bilateral nephrectomies ESRD on HD M/W/F, Chronic normocytic anemia/AOCD, Orthostatic hypotension, CAD, PAF, history torsades/VT, Hypothyroidism, Obesity,HTN, HLD, Anxiety and Depression, recent ED evaluation 03/28/2025 secondary to chest pressure occurring during dialysis and intermittently in the last several weeks lasting approximately an hour in the substernal region described as mild to moderate usually occurring dialysis with associated nausea as well as dyspneabut no emesis nor any diaphoresis with no radiation of the chest discomfort withthe ED evaluation at that time with indeterminate cardiac enzymes felt stable likely secondary to underlying renal disease status post bilateral nephrectomy with blood pressure labile with plan for discharge to home with follow-up with nephrology and cardiology as they are working on a regimen to improve her blood pressure control with also unremarkable chest x-ray and EKG with no acute evidence of ischemia now presenting again to the [facility] ED on 03/29/2025 with ongoing dyspnea in addition to a nonproductive cough reportingthat she is actually at her dry weight with persistent pressure now on the left side of her chest with also an episode of burning sensation in the ED with at that time incidentally noted 10 beat run of V. tach with elevated persistent blood pressures despite recently initiated regimen of telmisartan, digoxin and Coreg prompting repeat ED evaluation. Workup in the ED included T98, heart rate64, BP 174/61, respiratory rate 16, 94% on room air with most recent repeat vitals T98.4, heart rate 65, BP 197/65, respiratory rate 20, 95% room air, CBC with WBC 4.2, hemoglobin 8.8, MCV 91.2, platelet 220 with lymphopenia, coags with INR 2.1, BMP with chloride 94, BUN/creatinine 19/5.66, GFR 8, glucose 101, magnesium 2.0, troponin initial 62 with repeat delta 2-hour pending, chest x-raywith basilar atelectasis, cardiomegaly with mild congestion, bilateral pleural effusions with no significant change since prior evaluation, CT chest with cardiomegaly with small pericardial effusion, scattered mediastinal lymph nodes likely reactive, EKG with SR with mildly prolonged QTC, T wave morphology changeof unclear significance with no acute evidence of ischemia similar to prior. Inthe ED patient ministered hydralazine 10 mg IV x 1. Hospital Course: #1. Hypertensive urgency: Patient blood pressure is high chronically systolic more than 200. At home patient is on telmisartan, carvedilol and digoxin but not on diuretic. Patient is started on chlorthalidone 12.5 mg daily. On IV hydralazine and labetalol as needed SBP more than 180 mmHg. Blood pressure still high 180/57, 172/56. and blood pressure is controlled about systolic 150spatient can be discharged and advised follow-up with director of player personnel for better control of blood pressure. 04/01/2025: Chlorthalidone was discontinued given her renal failure. She was started on Norvasc and resumed on her Coreg at 6.25 mg p.o. twice daily. I recommend outpatient monitoring with her PCP and cardiology for further adjustments. I discussed with her the plan for discharge and she expressed understanding of the risks and benefits of going home and would like to go home today. Her digoxin was also discontinued as there was concern that this was thecause of her symptomatic episode of torsades. 2. Atypical chest pain, localized: ACS ruled out. Twelve-lead EKG nondiagnostic of ACS. Serial troponins were mildly elevated 60-63 and 66. patient had nuclear stress test negative for acute ischemia. ACS ruled out. 2Decho shows EF 65% with stage II diastolic dysfunction, mild TR PASP 43. Overallsuggestive of chronic HFpEF #2. Polycystic kidney disease status post bilateral nephrectomy with ESRD: Patient with ongoing dialysis Tuesday, Tuesday, Tuesday,: Patient did not have any need for hemodialysis. Operations Coordinator consulted electrolytes in normal limit. BUN/creatinine high 27/7.27. Serum magnesium 2.0. 03/31/2025: Appreciate nephrology's assistance #3. Chronic normocytic anemia/AOCD: Admission hemoglobin 8.8, MCV 91.2, baseline hemoglobin ranges primarily 9-11, most recently previous 03/28/2025 hemoglobin 9.1, hemoglobin 8.8. On baseline #4. Orthostatic hypotension: Given patient recent increased blood pressures although labile especially dialysis will hold midodrine regimen at this time. #5. CAD: Status post previous PCI 2015, continue Coumadin, statin, Coreg, telmisartan regimen with hold parameters as needed. #6. PAF: continue patient home digoxin and Coumadin regimen, INR 2.3, therapeutic #7. History of torsades, recent as noted symptomatic VT burst: Status post previous AICD placement 2019, Will continue digoxin, coreg regimen. Interrogation attempted in the ED with noted AF with no firing. 03/31/2025: Transferred to the ICU overnight for symptomatic torsades, appreciatecardiology's assistance. Will maintain potassium greater than 4 and magnesium is 2.8 today 04/01/2025: Potassium is greater than 4 and her torsades has resolved. Will place her on a Holter monitor on discharge and have her follow-up with cardiology and her primary care physician on discharge #8. Hypothyroidism: On levothyroxine. TSH normal. #9. Obesity: Weight loss and lifestyle changes encouraged. #10. Anxiety and depression: Will continue patient home sertraline regimen. #11. Hyperlipidemia: Will continue patient on statin therapy, Physical Exam Narrative General: Alert, Oriented x3, Cooperative, No apparent distress HEENT: Atraumatic, PERRLA, EOMI, Normocephalic Oral: Moist Mucosa Neck: Supple, No JVD Lungs: Diminished, Normal air movement, No rhonchi, No wheeze, No rales Cardiovascular: Regular rate, Regular Rhythm, Normal S1, Normal S2, No murmurs Abdomen: Soft, Non Tender, Non-Distended, No Hepato-splenomegaly Extremities: No edema, Capillary Refill Less than 3 Seconds Skin: No rashes, No breakdown Musculoskeletal: No Tenderness to Palpation of Joints or Extremities Neurological: No focal neurological deficits, Motor Exam 5/5 strength throughout, Sensory exam intact to light touch and pain Psych/Mental Status: Normal Affect, Appropriate Weight / BMI Weight Weight: 173 lb 11.588 oz Body Mass Index (BMI) 31.9 ABG / Lab / Microbiology Data 04/01/25 05:55 04/01/25 05:55 Laboratory: Laboratory Results - last 24 hr 03/31/25 15:15: PT 29.6 H, INR 2.7 04/01/25 05:55: WBC 7.2, RBC 3.02 L, Hgb 9.1 L, Hct 27.6 L, MCV 91.4, MCH 30.1, MCHC 33.0, RDW Std Deviation 58.0 H, RDW Coeff of Tana 18.0 H, Plt Count 246, MPV9.2, Immature Gran % (Auto) 0.400, Neut % (Auto) 66.8, Lymph % (Auto) 16.4 L, [place] % (Auto) 7.5, Eos % (Auto) 8.2 H, Baso % (Auto) 0.7, Absolute Neuts (auto) 4.8, Absolute Lymphs (auto) 1.18, Nucleated RBC % 0, Sodium 131 L, Potassium 4.5, Chloride 91 L, Carbon Dioxide 22.4, Anion Gap 18 H, BUN 50 H, Creatinine 11.10 H*, Estim Creat Clear Calc 5.33 L*, Est GFR (MDRD) Non-Af 4 L, BUN/Creatinine Ratio 4.5 L, Glucose 91, Calcium 7.7 Radiography Diagnostic Testing: Radiology Impression Echocardiogram 03/29/25 20:38 Interpretation Summary Normal LV size. Left ventricular systolic function is normal. The left ventricular ejection fraction is 65 %. Stage 2 diastolic dysfunction. Pulmonary artery systolic pressure is 40 mmHg. Small (<1.0 cm) pericardial effusion. Ordering Physician: Saadia Valencia Performed By: Jane Arnold RDCS D/C Instructions Call your doctor if you observe: Fever of 101 or Higher, Shortness of breath, Dizziness, Fainting spells, Swelling in the ankles, Chest pain and Increased palpitations (irregular heartbeat) DC O2, CPAP, BIPAP Needs Home O2 Discharge instructions: No Meaningful Use Info Meaningful Use Meaningful Use Diagnoses (Choose all that apply): None applicable Discharge Plan Admission Admit Date/Time: 03/30/25 20:01 Attending Provider: Armando Booker Primary Care Provider: Trevor Vieyra Consulting Providers: Saadia Valencia; Ernesto Garvin; Watson Dalal; Sudarshan Garcia Discharge Orders/Prescriptions Prescriptions: New amlodipine 10 mg Tablet 10 mg PO DAILY 30 Days Qty: 30 0RF Continued cholecalciferol (vitamin D3) 1,000 unit tablet 1,000 unit PO QDAY sevelamer carbonate 800 mg tablet 4,000 mg PO TID 30 Days Qty: 90 calcium carbonate [Tums] 200 mg calcium (500 mg) tablet,chewable 400 mg PO BID ipratropium bromide 21 mcg (0.03 %) spray,non-aerosol 2 spray intranasal DAILY Rx Instructions: administer into each nostril levothyroxine 25 mcg tablet 25 mcg PO QDAY warfarin 3 mg tablet 8 mg PO MOWEFR warfarin 2 mg tablet 9 mg PO SUTUTHSA Rani-Yahir 0.8 mg tablet 1 tab PO QDAY zolpidem 10 mg tablet 10 mg PO QHS PRN (Reason: insomnia) atorvastatin 10 mg tablet 10 mg PO DAILY Qty: 30 12RF sertraline 50 MG tablet 75 mg PO QHS carvedilol 6.25 mg tablet 6.25 mg PO BID telmisartan 40 mg tablet 40 mg PO BID nitroglycerin 0.4 mg tablet, sublingual 0.4 mg SUBLINGUAL Q5M PRN (Reason: Chest Pain) Qty: 25 2RF Discontinued digoxin 125 mcg (0.125 mg) tablet 125 mcg PO QODAY Qty: 30 11RF Other Ambulatory Orders: Cardiac Holter Monitor, 48 Hrs (Routine) Timeframe: 1 Day Facility: [facility] - Location: Cardiovascular Services Ordered By: Dr. Armando Booker Referrals / Follow Up: Ernesto Garvin MD [Med Staff - Active Staff, Cardiology] - Within 1 Month Trevor Vieyra MD [Primary Care Provider, Family Practice] - Within 1 Week Disposition Disposition (needs filled in before D/C Order can be placed): Home, Self Care Charges/Coding Visit Charges Inpatient E&M: 00656 Subs Hosp L2 04/01/25 1523 <Electronically signed by Armando Booker MD> Cosigner Signature (if applicable): CC: Dr. Trevor Vieyra MD; Dr. Armando Booker MD~ Signed [facility] Work Phone: [phone]) 196-204609-22-2025 Consult note [facility] Medical Records Department [address] [place] [address] Consultation - Cardiology 03/31/25 0825 MR#: [id number] Acct: [id number] Name: SPENCER REDDING Rep #:[id number] : 1965 59 From: Ernesto Garvin MD PCP: Dr. Trevor Vieyra MD Status:DIS IN Location: ICU ICU02-1 Assessment & Plan Assessment/Plan (1) Torsades de pointes: PLAN: She does present with symptomatic torsade de pointes. The plan will be totry and keep her potassium at 4.0 or higher. She will be given extra potassium this morning not with standing renal problems. She is also on the Isopril whichwill be continued but we will reduce the dose to 2.5 mics per minute. Will continue to monitor her with serial EKGs. (2) Accelerated essential hypertension: PLAN: Her blood pressure was elevated overnight. Will adjust her medications and increase amlodipine to 10 mg a day and continue her other current medications. Will discuss with nephrology about continued use of [place]. (3) History of implantable cardiac defibrillator (ICD): PLAN: She is status post implantable defibrillator. No defibrillator dischargeshave been noted. (4) History of coronary artery stent placement: PLAN: She does have a history of coronary artery disease coronary artery stenting of the right coronary artery and the left anterior descending artery. Stress test performed during this admission demonstrates no evidence of ischemia. (5) Benign essential hypertension: PLAN: Her blood pressure is elevated and we will try and make appropriate adjustments. Echocardiogram demonstrated preserved ejection fraction of 65%. (6) Hyperlipidemia: QUALIFIERS: Hyperlipidemia type: unspecified Qualified Code(s): E78.5 - Hyperlipidemia, unspecified PLAN: She does have a history of hyperlipidemia and will continue with risk factor modification. HPI Consult Data Date of Consult: 03/31/25 HPI Narrative HPI Narrative: SPENCER REDDING, is a 59 F who presents to the emergency room with complaints of chest discomfort, dyspnea and elevated blood pressure. She was also noted to have a 10 beat run of a wide-complex tachycardia. She was admitted to the telemetry unit and underwent an echocardiogram which demonstrated preserved ejection fraction as well as myocardial perfusion stress test which demonstratedno evidence of ischemia. While on the telemetry floor the patient was noted to have wide-complex tachycardia in the pattern of torsade. Cardiology was called for evaluation and management. Patient was noted to have aprolonged QT interval. She had been on digoxin. She has a history of coronary artery disease with aknown high-grade lesion of the right coronary artery diagnosed 2015 after she had developed torsade de pointes. She underwent angioplasty and stenting of the above. She did have angioplastyand stenting ofher moderate 60 to 70% lesion in the left anterior descending artery which was stented and a moderate 60% lesion in the circumflex artery which was managed medically. As a result of her rhythm abnormalities of the above she also underwent implantation of a subcutaneous defibrillator in July 2016. She hadgenerator changed in November 2019. She continues on dialysis 3 times a week M,W, and F. She also has a history of hypertension, hyperparathyroidism, and anemia.She does have her ICD checked routinely through [facility]. Her INR is managed by her PCP. When she was last seen in the office,She denies chest, arm, jaw, or neck discomfort. She states infrequent palpitations that she describes as fast. Shedenies bilateral lower extremity edema. She denies claudication. She denies shortness of breath with activity, shortness of breath at rest, orthopnea, or PND. She denies chronic cough. She denies significant, sudden weight gain. She states lightheadedness, dizziness, near-syncope, and syncope. She denies blood in urine, blood in stool, or epistaxis. He denies fever with chills. Shedenies myalgia. She acknowledges fatigue. Her exercise level hasremained stable. EKG on the telemetry floor demonstrated prolonged QT of 540 ms and resulting torsade de pointes. She was transferred to the telemetry intensive care unit and started on intravenous Isopril. This morning she is doing so muchbetter with no further rhythm abnormalities present. [facility] Medical History Polycystic kidney disease Sudden cardiac Hypertriglyceridemia Hyperlipidemia History of torsades de pointes Atherosclerosis of coronary artery of [place] heart without angina pectoris Syncope and collapse Ventricular fibrillation Ischemic cardiomyopathy ESRD (end stage renal disease) on dialysis Nonsustained ventricular tachycardia History of recurrent miscarriages, not currently History of DVT (deep vein thrombosis) Congenital polycystic kidney disease History of allergic rhinitis Obesity Benign essential hypertension Home Medications ?Medication ?Instructions ?Recorded ?Last Taken ?Type sertraline 50 mg tablet 75 mg PO QHS depression 01/0803/15/23 History cholecalciferol (vitamin D3) 25 1,000 unit PO QDAY sup plement 10/24/17 03/15/23 History mcg (1,000 unit) tablet sevelamer carbonate 800 mg tablet 4,000 mg PO TID bind er 30 days #90 06/11/21 03/15/23 History tabs calcium carbonate (Tums) 400 mg PO BID 03/30/2203/15 History nitroglycerin 0.4 mg sublingual 0.4 mg sublingual Q5M PRN Chest 10/14/22 03/15/23 Rx tablet Pain #25 tabs ipratropium bromide 21 mcg (0.03 2 spray intranasal DA BHANU 05/10/23 Unknown History %) nasal spray atorvastatin 10 mg tablet 10 mg PO DAILY cholesterol # 30 tabs 10/11/24 Unknown Rx levothyroxine 25 mcg tablet 25 mcg PO QDAY thyroid 10/02 Unknown History vitamin B complex-vitamin C-folic 1 tab PO QDAY supple ment 10/11/24 Unknown History acid 0.8 mg tablet (Rani-Yahir) warfarin 2 mg tablet 9 mg PO SUTUTHSA blood thinn er 10/11/24 Unknown History warfarin 3 mg tablet 8 mg PO MOWEFR blood thinner 10/11/24 Unknown History zolpidem 10 mg tablet 10 mg PO QHS PRN insomnia Unknown History digoxin 125 mcg (0.125 mg) tablet 125 mcg PO QODAY hea rt #30 tabs 01/09/25 Unknown Rx carvedilol 6.25 mg tablet 6.25 mg PO BID blood pressur e 03/29/25 Unknown History telmisartan 40 mg tablet 40 mg PO BID blood pressure 03/29/25 Unknown History Allergy/AdvReac Type Severity Reaction Status Date / Time amoxicillin Allergy Rash Verified 03/29/25 15:14 doxercalciferol (From Allergy Hives Verified 03/29/25 15:14 Hectorol) etodolac Allergy Rash Verified 03/29/25 15:14 Penicillins (PCN) Allergy Rash Verified 03/29/25 15:14 sulfamethoxazole (From Allergy Rash Verified 03/29/25 15:14 Bactrim) tramadol Allergy Rash Verified 03/29/25 15:14 trimethoprim (From Bactrim) Allergy Rash Verified 03/29/25 15:14 strawberry AdvReac Vomiting Verified 03/29/25 15:14 Family History Father Hypertension Kidney disease Mother Diabetes Family History no significant family his Surgical History Hx of kidney removal History of implantable cardiac defibrillator (ICD) (11/22/19) History of coronary artery stent placement (04/22/16) fistulogram History of thyroid surgery Surgical History no surgical history Social History household members: none Smoking Status: Never smoker alcohol intake: never substance use type: does not use diet: other caffeine: No what type of physical activity do you participate in: none seatbelt use: always do you feel safe at home: Yes ROS Constitutional Constitutional: Denies fever(s) or weight loss Eyes Eyes: Reports systems reviewed and no addt'l complaints, except as documented ENT HEENT: Reports systems reviewed and no addt'l complaints, except as documented Cardiovascular Cardiovascular: Denies chest pain at rest, chest pain with activity, dyspnea at rest, dyspnea on exertion, edema, palpitations or paroxysmal nocturnal dyspnea Respiratory/Chest Respiratory/Chest: Denies dyspnea on exertion, productive cough, shortness of breath at rest or shortness of breath with exertion Gastrointestinal Gastrointestinal: Denies change in bowel habits, nausea, vomiting or weight changes Genitourinary Genitourinary: Denies difficulty urinating Musculoskeletal Musculoskeletal: Denies joint stiffness or muscle weakness Integumentary Integumentary: Denies lesions Neurologic Neurologic: Denies dizziness or syncope Psychiatric Psychiatric: Denies anxiety Endocrine Endocrinology: Denies excessive sweating or fatigue Hematologic/Lymphatic Hematologic/Lymphatic: Denies anemia Allergic/Immunologic Allergic/Immunologic: Denies seasonal rhinorrhea Objective Data Vital Signs: Vital Signs Temp Pulse Resp BP Pulse Ox O2 Del Method O2 Flow Rate 98.0 F 88 23 H 163/62 H 100 Nasal Cannula 2 03/30/25 20:30 03/31/25 06:00 03/31/25 06:00 03/31/25 06:00 03/31/25 06:00 03/31/25 06:00 03/31/25 06:00 Oxygen Flow Rate (L/min) 2 Oxygen Delivery Method Nasal Cannula Weight: 178 lb 5.663 oz Body Mass Index (BMI) 32.5 Intake & Output: Intake and Output for Last 24 Hours 03/29/25 03/30/25 03/31/25 23:59 23:59 23:59 Intake Total 400 / 400 104 / 104 676.25 / 676.25 Output Total 0 / 0 Balance 400 / 400 104 / 104 676.25 / 676.25 Lab / Micro Data 03/31/25 06:08 03/31/25 06:08 Labs: Laboratory Results - last 24 hr 03/31/25 06:08: WBC 6.5, RBC 3.06 L, Hgb 9.1 L, Hct 27.7 L, MCV 90.5, MCH 29.7, MCHC 32.9, RDW Std Deviation 54.9 H, RDW Coeff of Tana 17.6 H, Plt Count 232, MPV9.1, Immature Gran % (Auto) 0.300, Neut% (Auto) 77.4 H, Lymph % (Auto) 11.1 L, [place] % (Auto) 8.0, Eos % (Auto) 2.9, Baso % (Auto) 0.3, Absolute Neuts (auto) 5.0, Absolute Lymphs (auto) 0.72 L, Nucleated RBC % 0, Sodium 130 L, Potassium 3.5, Chloride 89 L, Carbon Dioxide 23.0, Anion Gap 18 H, BUN 37 H, Creatinine 9.32 H*, Estim Creat Clear Calc 6.33 L*, Est GFR (MDRD) Non-Af 4 L, BUN/Creatinine Ratio 4.0 L, Glucose 156 H, Calcium 8.0, Triglycerides 166, Cholesterol 155, LDL Cholesterol, Calc 95, VLDL Cholesterol 33, HDL Cholesterol 27 L, Cholesterol/HDL Ratio 5.83 Rhythm Strip Rhythm Strip: Sinus Rhythm Rate: 62 Ectopy: None Cardiology Labs/Tests 03/31/25 06:08: WBC 6.5, RBC 3.06 L, Hgb 9.1 L, Hct 27.7 L, MCV 90.5, MCH 29.7, MCHC 32.9, Plt Count 232, MPV 9.1, Immature Gran % (Auto) 0.300, Neut % (Auto) 77.4 H, Lymph % (Auto) 11.1 L, [place] % (Auto) 8.0, Eos % (Auto) 2.9, Baso % (Auto) 0.3, Absolute Neuts (auto) 5.0, Nucleated RBC % 0, Sodium 130 L, Potassium 3.5, Chloride 89 L, Carbon Dioxide 23.0, Anion Gap 18 H, BUN 37 H, Creatinine 9.32 H*, Est GFR (MDRD) Non-Af 4 L, BUN/Creatinine Ratio 4.0 L, Glucose 156 H, Calcium 8.0, [id number], Cholesterol 155, VLDL Cholesterol 33, HDL Cholesterol 27 L, Cholesterol/HDL Ratio 5.83 Rhythm: EKG: ECHO: Stress Test: Cardiac Cath: PCI: CT Surgery: Holter monitor: EPS: PPM: CXR: Chest CT Scan: Radiography Diagnostic Testing: Radiology Impression Echocardiogram 03/29/25 20:38 Interpretation Summary Normal LV size. Left ventricular systolic function is normal. The left ventricular ejection fraction is 65 %. Stage 2 diastolic dysfunction. Pulmonary artery systolic pressure is 40 mmHg. Ordering Physician: Saadia Valencia Performed By: Jane Arnold RDCS Abdomen X-Ray 03/30/25 16:05 IMPRESSION: Nonspecific findings. - Findings and recommendations discussed above in detail. Reading Location: [facility] Risk Score for UA/STEMI Assesmment (YES = 1) Risk Stratification Applicable: No 04/02/25 0635 Cosigner Signature (if applicable): CC: Dr. Trevor Vieyra MD~ Signed [facility]09-22-2025 Discharge summary [facility] Medical Records Department [address] [place] [address] Discharge Summary 04/01/25 1518 MR#: [id number] Acct: [id number] Name: SPENCER REDDING Rep #:[id number] : 1965 59 From: Armando paul MD PCP: Dr. Trevor Vieyra MD Status:ADM IN Location: ICU ICU02-1 Providers Date of Admission: 03/30/25 Primary Care Physician: Dr. Trevor Vieyra MD Consultations 03/30/25 07:42 Consult: Nephrology Routine Consulting Provider: Watson Dalal Reason for Consult: ESRD m,w,f EMERGENT Consult: No MD Notified: Yes Date Notified: 03/30/25 Time Notified: 07:43 Method of Notification: Text 03/30/25 19:47 Consult: Cardiology Routine Consulting Provider: Ernesto Garvin Reason for Consult: Prolonged QTc, recurrent NSVT. stress test negative. EMERGENT Consult: No MD Notified: Yes Date Notified: 03/30/25 Time Notified: 19:20 Method of Notification: Text Reason For Visit: CHEST PAIN Diagnosis Discharge Diagnosis (1) ESRD (end stage renal disease) on dialysis: Status: Chronic Code(s): N18.6 - End stage renal disease; Z99.2 - Dependence on renal dialysis Medications at Discharge Home Medications sertraline 50 mg tablet 75 mg PO QHS depression 01/19/17 cholecalciferol (vitamin D3) 25 mcg (1,000 unit) tablet 1,000 unit PO QDAY supplement 10/24/17 sevelamer carbonate 800 mg tablet 4,000 mg PO TID binder 30 days #90 tabs 06/11/21 calcium carbonate (Tums) 400 mg PO BID 03/30/22 nitroglycerin 0.4 mg sublingual tablet 0.4 mg sublingual Q5M PRN Chest Pain #25 tabs 10/14/22 ipratropium bromide 21 mcg (0.03 %) nasal spray 2 spray intranasal DAILY 05/10/23 atorvastatin 10 mg tablet 10 mg PO DAILY cholesterol #30 tabs 10/11/24 levothyroxine 25 mcg tablet 25 mcg PO QDAY thyroid 10/11/24 vitamin B complex-vitamin C-folic acid 0.8 mg tablet (Rani-Yahir) 1 tab PO QDAY supplement 10/11/24 warfarin 2 mg tablet 9 mg PO SUTUTHSA blood thinner 10/11/24 warfarin 3 mg tablet 8 mg PO MOWEFR blood thinner 10/11/24 zolpidem 10 mg tablet 10 mg PO QHS PRN insomnia 10/11/24 carvedilol 6.25 mg tablet 6.25 mg PO BID blood pressure 03/29/25 telmisartan 40 mg tablet 40 mg PO BID blood pressure 03/29/25 amlodipine 10 mg tablet 10 mg PO DAILY 30 days #30 tabs 04/01/25 Hospital Course Operations None Procedures 2-D Echocardiogram Summary of Care Provided Minutes Spent on Discharge: 37 Hospital Course: Per HPI: The patient is a 59 y/o F w/ PMHx: Polycystic kidney disease status post bilateral nephrectomies ESRD on HD M/W/F, Chronic normocytic anemia/AOCD, Orthostatic hypotension, CAD, PAF, history torsades/VT, Hypothyroidism, Obesity,HTN, HLD, Anxiety and Depression, recent ED evaluation 03/28/2025 secondary to chest pressure occurring during dialysis and intermittently in the last several weekslasting approximately an hour in the substernal region described as mild to moderate usually occurring dialysis with associated nausea as well as dyspneabut no emesis nor any diaphoresis with no radiation of the chest discomfort withthe ED evaluation at that time with indeterminate cardiac enzymes felt stable likely secondary to underlying renal disease status post bilateral nephrectomy with blood pressure labile with plan for discharge to home with follow-up with nephrology and cardiology as they are working on a regimen to improve her blood pressure control with also unremarkable chest x-ray and EKG with no acute evidence of ischemia now presenting again to the [facility] ED on 03/29/2025 with ongoing dyspnea in addition to a nonproductive cough reportingthat she is actually at her dry weight with persistent pressure now on the left side of her chest with also an episode of burning sensation in the ED with at that time incidentally noted 10 beat run of V. tach with elevated persistent blood pressures despite recently initiated regimen of telmisartan, digoxin and Coreg prompting repeat ED evaluation. Workup in the ED included T98, heart rate64, BP 174/61, respiratory rate 16, 94% on room air with most recent repeat vitals T98.4, heart rate 65, BP 197/65, respiratory rate 20, 95% room air, CBC with WBC 4.2, hemoglobin 8.8, MCV 91.2, platelet 220 with lymphopenia, coags with INR 2.1, BMP with chloride 94, BUN/creatinine 19/5.66, GFR 8, glucose 101, magnesium 2.0, troponin initial 62 with repeat delta 2-hour pending, chest x-raywith basilar atelectasis, cardiomegaly with mild congestion, bilateral pleural effusions with no significant change since prior evaluation, CT chest with cardiomegaly with small pericardial effusion, scattered mediastinal lymph nodes likely reactive, EKG with SR with mildly prolonged QTC, T wave morphology changeof unclear significance with no acute evidence of ischemia similar to prior. Inthe ED patient ministered hydralazine 10 mg IV x 1. Hospital Course: #1. Hypertensive urgency: Patient blood pressure is high chronically systolic more than 200. At home patient is on telmisartan, carvedilol and digoxin but not on diuretic. Patient is started on chlorthalidone 12.5 mg daily. On IV hydralazine and labetalol as needed SBP more than 180 mmHg. Blood pressure still high 180/57, 172/56. and blood pressure is controlled about systolic 150spatient can be discharged and advised follow-up with director of player personnel for better control of blood pressure. 04/01/2025: Chlorthalidone was discontinued given her renal failure. She was started on Norvasc and resumed on her Coreg at 6.25 mg p.o. twice daily. I recommend outpatient monitoring with her PCP andcardiology for further adjustments. I discussed with her the plan for discharge and she expressed un derstanding of the risks and benefits of going home and would like to go home today. Her digoxin was also discontinued as there was concern that this was thecause of her symptomatic episode of torsades. 2. Atypical chest pain, localized: ACS ruled out. Twelve-lead EKG nondiagnostic of ACS. Serial troponins were mildly elevated 60-63 and 66. patient had nuclear stress test negative for acute ischemia. ACS ruled out. 2Decho shows EF 65% with stage II diastolic dysfunction, mild TR PASP 43. Overallsuggestive of chronic HFpEF #2. Polycystic kidney disease status post bilateral nephrectomy with ESRD: Patient with ongoing dialysis Tuesday, Tuesday, Tuesday,: Patient did not have any need for hemodialysis. Operations Coordinator consulted electrolytes in normal limit. BUN/creatinine high 27/7.27. Serum magnesium 2.0. 03/31/2025: Appreciate nephrology's assistance #3. Chronic normocytic anemia/AOCD: Admission hemoglobin 8.8, MCV 91.2, baseline hemoglobin ranges primarily 9-11, most recently previous 03/28/2025 hemoglobin 9.1, hemoglobin 8.8. On baseline #4. Orthostatic hypotension: Given patient recent increased blood pressures although labile especially dialysis will hold midodrine regimen at this time. #5. CAD: Status post previous PCI 2015, continue Coumadin, statin, Coreg, telmisartan regimen with hold parameters as needed. #6. PAF: continue patient home digoxin and Coumadin regimen, INR 2.3, therapeutic #7. History of torsades, recent as noted symptomatic VT burst: Status post previous AICD placement 2019, Will continue digoxin, coreg regimen. Interrogation attempted in the ED with noted AF with no firing. 03/31/2025: Transferred to the ICU overnight for symptomatic torsades, appreciatecardiology's assistance. Will maintain potassium greater than 4 and magnesium is 2.8 today 04/01/2025: Potassium is greater than 4 and her torsades has resolved. Will place her on a Holter monitor on discharge and have her follow-up with cardiology and her primary care physician on discharge #8. Hypothyroidism: On levothyroxine. TSH normal. #9. Obesity: Weight loss and lifestyle changes encouraged. #10. Anxiety and depression: Will continue patient home sertraline regimen. #11. Hyperlipidemia: Will continue patient on statin therapy, Physical Exam Narrative General: Alert, Oriented x3, Cooperative, No apparent distress HEENT: Atraumatic, PERRLA, EOMI, Normocephalic Oral: Moist Mucosa Neck: Supple, No JVD Lungs: Diminished, Normal air movement, No rhonchi, No wheeze, No rales Cardiovascular: Regular rate, Regular Rhythm, Normal S1, Normal S2, No murmurs Abdomen: Soft, Non Tender, Non-Distended, No Hepato-splenomegaly Extremities: No edema, Capillary Refill Less than 3 Seconds Skin: No rashes, No breakdown Musculoskeletal: No Tenderness to Palpation of Joints or Extremities Neurological: No focal neurological deficits, Motor Exam 5/5 strength throughout, Sensory exam intact to light touch and pain Psych/Mental Status: Normal Affect, Appropriate Weight / BMI Weight Weight: 173 lb 11.588 oz Body Mass Index (BMI) 31.9 ABG / Lab / Microbiology Data 04/01/25 05:55 04/01/25 05:55 Laboratory: Laboratory Results - last 24 hr 03/31/25 15:15: PT 29.6 H, INR 2.7 04/01/25 05:55: WBC 7.2, RBC 3.02 L, Hgb 9.1 L, Hct 27.6 L, MCV 91.4, MCH 30.1, MCHC 33.0, RDW Std Deviation 58.0 H, RDW Coeff of Tana 18.0 H, Plt Count 246, MPV9.2, Immature Gran % (Auto) 0.400, Neut% (Auto) 66.8, Lymph % (Auto) 16.4 L, [place] % (Auto) 7.5, Eos % (Auto) 8.2 H, Baso % (Auto) 0.7, Absolute Neuts (auto) 4.8, Absolute Lymphs (auto) 1.18, Nucleated RBC % 0, Sodium 131 L, Potassium 4.5,Chloride 91 L, Carbon Dioxide 22.4, Anion Gap 18 H, BUN 50 H, Creatinine 11.10 H*, Estim Creat Clear Calc 5.33 L*, Est GFR (MDRD) Non-Af 4 L, BUN/Creatinine Ratio 4.5 L, Glucose 91, Calcium 7.7 Radiography Diagnostic Testing: Radiology Impression Echocardiogram 03/29/25 20:38 Interpretation Summary Normal LV size. Left ventricular systolic function is normal. The left ventricular ejection fraction is 65 %. Stage 2 diastolic dysfunction. Pulmonary artery systolic pressure is 40 mmHg. Small (<1.0 cm) pericardial effusion. Ordering Physician: Saadia Valencia Performed By: Jane Arnold RDCS D/C Instructions Call your doctor if you observe: Fever of 101 or Higher, Shortness of breath, Dizziness, Fainting spells, Swelling in the ankles, Chest pain and Increased palpitations (irregular heartbeat) DC O2, CPAP, BIPAP Needs Home O2 Discharge instructions: No Meaningful Use Info Meaningful Use Meaningful Use Diagnoses (Choose all that apply): None applicable Discharge Plan Admission Admit Date/Time: 03/30/25 20:01 Attending Provider: Armando Booker Primary Care Provider: Trevor Vieyra Consulting Providers: Saadia Valencia; Ernesto Garvin; Watson Dalal; Sudarshan Garcia Discharge Orders/Prescriptions Prescriptions: New amlodipine 10 mg Tablet 10 mg PO DAILY 30 Days Qty: 30 0RF Continued cholecalciferol (vitamin D3) 1,000 unit tablet 1,000 unit PO QDAY sevelamer carbonate 800 mg tablet 4,000 mg PO TID 30 Days Qty: 90 calcium carbonate [Tums] 200 mg calcium (500 mg) tablet,chewable 400 mg PO BID ipratropium bromide 21 mcg (0.03 %) spray,non-aerosol 2 spray intranasal DAILY Rx Instructions: administer into each nostril levothyroxine 25 mcg tablet 25 mcg PO QDAY warfarin 3 mg tablet 8 mg PO MOWEFR warfarin 2 mg tablet 9 mg PO SUTUTHSA Rani-Yahir 0.8 mg tablet 1 tab PO QDAY zolpidem 10 mg tablet 10 mg PO QHS PRN (Reason: insomnia) atorvastatin 10 mg tablet 10 mg PO DAILY Qty: 30 12RF sertraline 50 MG tablet 75 mg PO QHS carvedilol 6.25 mg tablet 6.25 mg PO BID telmisartan 40 mg tablet 40 mg PO BID nitroglycerin 0.4 mg tablet, sublingual 0.4 mg SUBLINGUAL Q5M PRN (Reason: Chest Pain) Qty: 25 2RF Discontinued digoxin 125 mcg (0.125 mg) tablet 125 mcg PO QODAY Qty: 30 11RF Other Ambulatory Orders: Cardiac Holter Monitor, 48 Hrs (Routine) Timeframe: 1 Day Facility: [facility] - Location: Cardiovascular Services Ordered By: Dr. Armando Booker Referrals / Follow Up: Ernesto Garvin MD [Med Staff - Active Staff, Cardiology] - Within 1 Month Trevor Vieyra MD [Primary Care Provider, Family Practice] - Within 1 Week Disposition Disposition (needs filled in before D/C Order can be placed): Home, Self Care Charges/Coding Visit Charges Inpatient E&M: 79015 Subs Hosp L2 04/01/25 1523 Cosigner Signature (if applicable): CC: Dr. Trevor Vieyra MD; Dr. Armando Booker MD~ Signed [facility]09-22-2025 [facility] Medical Records Department [address] [place] [address] Discharge Summary 04/01/25 1518 MR#: [id number] Acct: [id number] Name: CHRISTINASPENCER L Rep #: [id number] : 1965 59 From: Armando Booker MD PCP: Dr. Trevor Vieyra MD Status:ADM IN Location: ICU ICU02-1 Providers Date of Admission: 03/30/25 Primary Care Physician: Dr. Trevor Vierya MD Consultations 03/30/25 07:42 Consult: Nephrology Routine Consulting Provider: Watson Dalal Reason for Consult: ESRD m,w,f EMERGENT Consult: No MD Notified: Yes Date Notified: 03/30/25 Time Notified: 07:43 Method of Notification: Text 03/30/25 19:47 Consult: Cardiology Routine Consulting Provider: Ernesto Garvin Reason for Consult: Prolonged QTc, recurrent NSVT. stress test negative. EMERGENT Consult: No MD Notified: Yes Date Notified: 03/30/25 Time Notified: 19:20 Method of Notification: Text Reason For Visit: CHEST PAIN Diagnosis Discharge Diagnosis (1) ESRD (end stage renal disease) on dialysis: Status: Chronic Code(s): N18.6 - End stage renal disease; Z99.2 - Dependence on renal dialysis Medications at Discharge Home Medications sertraline 50 mg tablet 75 mg PO QHS depression 01/19/17 cholecalciferol (vitamin D3) 25 mcg (1,000 unit) tablet 1,000 unit PO QDAY supplement 10/24/17 sevelamer carbonate 800 mg tablet 4,000 mg PO TID binder 30 days #90 tabs 06/11/21 calcium carbonate (Tums) 400 mg PO BID 03/30/22 nitroglycerin 0.4 mg sublingual tablet 0.4 mg sublingual Q5M PRN Chest Pain #25 tabs 10/14/22 ipratropium bromide 21 mcg (0.03 %) nasal spray 2 spray intranasal DAILY 05/10/23 atorvastatin 10 mg tablet 10 mg PO DAILY cholesterol #30 tabs 10/11/24 levothyroxine 25 mcg tablet 25 mcg PO QDAY thyroid 10/11/24 vitamin B complex-vitamin C-folic acid 0.8 mg tablet (Rani-Yahir) 1 tab PO QDAY supplement 10/11/24 warfarin 2 mg tablet 9 mg PO SUTUTHSA blood thinner 10/11/24 warfarin 3 mg tablet 8 mg PO MOWEFR blood thinner 10/11/24 zolpidem 10 mg tablet 10 mg PO QHS PRN insomnia 10/11/24 carvedilol 6.25 mg tablet 6.25 mg PO BID blood pressure 03/29/25 telmisartan 40 mg tablet 40 mg PO BID blood pressure 03/29/25 amlodipine 10 mg tablet 10 mg PO DAILY 30 days #30 tabs 04/01/25 Hospital Course Operations None Procedures 2-D Echocardiogram Summary of Care Provided Minutes Spent on Discharge: 37 Hospital Course: Per HPI: The patient is a 59 y/o F w/ PMHx: Polycystic kidney disease status post bilateral nephrectomies ESRD on HD M/W/F, Chronic normocytic anemia/AOCD, Orthostatic hypotension, CAD, PAF, history torsades/VT, Hypothyroidism, Obesity, HTN, HLD, Anxiety and Depression, recent ED evaluation 03/28/2025 secondary to chest pressure occurring during dialysis and intermittently in the last several weeks lasting approximately an hour in the substernal region described as mild to moderate usually occurring dialysis with associated nausea as well as dyspnea but no emesis nor any diaphoresis with no radiation of the chest discomfort with the ED evaluation at that time with indeterminate cardiac enzymes felt stable likely secondary to underlying renal disease status post bilateral nephrectomy with blood pressure labile with plan for discharge to home with follow-up with nephrology and cardiology as they are working on a regimen to improve her blood pressure control with also unremarkable chest x-ray and EKG with no acute evidence of ischemia now presenting again to the [facility] ED on 03/29/2025 with ongoing dyspnea in addition to a nonproductive cough reporting that she is actually at her dry weight with persistent pressure now on the left side of her chest with also an episode of burning sensation in the ED with at that time incidentally noted 10 beat run of V. tach with elevated persistent blood pressures despite recently initiated regimen of telmisartan, digoxin and Coreg prompting repeat ED evaluation. Workup in the ED included T98, heart rate 64, BP 174/61, respiratory rate 16, 94% on room air with most recent repeat vitals T98.4, heart rate 65, BP 197/65, respiratory rate 20, 95% room air, CBC with WBC 4.2, hemoglobin 8.8, MCV 91.2, platelet 220 with lymphopenia, coags with INR 2.1, BMP with chloride 94, BUN/creatinine 19/5.66, GFR 8, glucose 101, magnesium 2.0, troponin initial 62 with repeat delta 2- hour pending, chest x-ray with basilar atelectasis, cardiomegaly with mild congestion, bilateral pleural effusions with no significant change since prior evaluation, CT chest with cardiomegaly with small pericardial effusion, scattered mediastinal lymph nodes likely reactive, EKG with SR with mildly prolonged QTC, T wave morphology change of unclear significance with no acute evidence of ischemia similar to prior. In the ED patient ministered hydralazine 10 mg IV x 1. Hospital Course: #1. (more content not included)...[facility]09-22-2025 Discharge summary Author Armando Booker [facility] Note Date/Time April 01, 2025 11:57am [facility] Medical Records Department [address] [place] [address] Instructions for Home/Discharge Instructions 04/01/25 1150 MR#: [id number] Acct: [id number] Name: SPENCER REDDING Rep #:[id number] : 1965 59 From: Armando paul MD PCP: Dr. Trevor Vieyra MD Status:ADM IN Discharge Instructions DC O2, CPAP, BIPAP needs Home O2 Discharge instructions: No Dressing / Incision Discharge Activity: Return to Normal Activity Dressing / Incision Call your doctor if you observe: Fever of 101 or Higher, Shortness of breath, Dizziness, Fainting spells, Swelling in the ankles, Chest pain and Increased palpitations (irregular heartbeat) Follow Up Care Test Results: Test results from this visit will be discussed in further detail at your follow- up appointment, if applicable. Discharge Plan Admission Admit Date/Time: 03/30/25 20:01 Attending Provider: Armando Booker Primary Care Provider: Trevor Vieyra Consulting Providers: Saadia Valencia; Ernesto Garvin; Watson Dalal; Sudarshan Garcia Discharge Orders/Prescriptions Prescriptions: New amlodipine 10 mg Tablet 10 mg PO DAILY 30 Days Qty: 30 0RF Continued cholecalciferol (vitamin D3) 1,000 unit tablet 1,000 unit PO QDAY sevelamer carbonate 800 mg tablet 4,000 mg PO TID 30 Days Qty: 90 calcium carbonate [Tums] 200 mg calcium (500 mg) tablet,chewable 400 mg PO BID ipratropium bromide 21 mcg (0.03 %) spray,non-aerosol 2 spray intranasal DAILY Rx Instructions: administer into each nostril levothyroxine 25 mcg tablet 25 mcg PO QDAY warfarin 3 mg tablet 8 mg PO MOWEFR warfarin 2 mg tablet 9 mg PO SUTUTHSA Rani-Yahir 0.8 mg tablet 1 tab PO QDAY zolpidem 10 mg tablet 10 mg PO QHS PRN (Reason: insomnia) atorvastatin 10 mg tablet 10 mg PO DAILY Qty: 30 12RF sertraline 50 MG tablet 75 mg PO QHS carvedilol 6.25 mg tablet 6.25 mg PO BID telmisartan 40 mg tablet 40 mg PO BID nitroglycerin 0.4 mg tablet, sublingual 0.4 mg SUBLINGUAL Q5M PRN (Reason: Chest Pain) Qty: 25 2RF Discontinued digoxin 125 mcg (0.125 mg) tablet 125 mcg PO QODAY Qty: 30 11RF Other Ambulatory Orders: Cardiac Holter Monitor, 48 Hrs (Routine) Timeframe: 1 Day Facility: [facility] - Location: Cardiovascular Services Ordered By: Dr. Armando Booker Referrals / Follow Up: Ernesto Garvin MD [Med Staff - Active Staff, Cardiology] - Within 1 Month Trevor Vieyra MD [Primary Care Provider, Family Practice] - Within 1 Week Disposition Disposition (needs filled in before D/C Order can be placed): Home, Self Care 04/01/25 1157<Electronically signed by Armando Booker MD>Armando Booker MD CC: Dr. Saadia Valencia MD; Dr. Ernesto Garvin MD; Dr. Trevor Vieyra MD; Dr. Watson Dalal MD; Dr. Sudarshan Garcia MD ~ Signed [facility] Work Phone: 1(845) 134-602909-22-2025 Consult note Author Watson Dalal [facility] Note Date/Time April 01, 2025 11:00am [facility] Medical Records Department [facility] [place] [place] [address] Consultation - Nephrology 04/01/25 1059 MR#: [id number] Acct: [id number] Name: SPENCER REDDING Rep #:[id number] : 1965 59 From: Watson garcía MD PCP: Dr. Trevor Vieyra MD Status:ADM IN Location: ICU ICU02-1 Assessment & Plan Assessment/Plan (1) ESRD (end stage renal disease) on dialysis: PLAN: Seen on dialysis today. See orders/flowsheets. Will use 3K bath in view of arrhythmia. HPI Consult Data Date of Consult: 04/01/25 HPI Narrative Reason for Consultation: ESRD HPI Narrative: SPENCER REDDING, is a 59 F who presents to the hospital with tachyarrhythmias. Nephrology on consultation in view of ESRD. On hemodialysis Tuesday, Tuesday, Tuesday. [facility] Medical History Polycystic kidney disease Sudden cardiac Hypertriglyceridemia Hyperlipidemia History of torsades de pointes Atherosclerosis of coronary artery of [place] heart without angina pectoris Syncope and collapse Ventricular fibrillation Ischemic cardiomyopathy ESRD (end stage renal disease) on dialysis Nonsustained ventricular tachycardia History of recurrent miscarriages, not currently History of DVT (deep vein thrombosis) Congenital polycystic kidney disease History of allergic rhinitis Obesity Benign essential hypertension Home Medications ?Medication ?Instructions ?Recorded ?Last Taken ?Type sertraline 50 mg tablet 75 mg PO QHS depression 01/0803/15/23 History cholecalciferol (vitamin D3) 25 1,000 unit PO QDAY sup plement 10/24/17 03/15/23 History mcg (1,000 unit) tablet sevelamer carbonate 800 mg tablet 4,000 mg PO TID bind er 30 days #90 06/11/21 03/15/23 History tabs calcium carbonate (Tums) 400 mg PO BID 03/30/2203/15 History nitroglycerin 0.4 mg sublingual 0.4 mg sublingual Q5M PRN Chest 10/14/22 03/15/23 Rx tablet Pain #25 tabs ipratropium bromide 21 mcg (0.03 2 spray intranasal DA BHANU 05/10/23 Unknown History %) nasal spray atorvastatin 10 mg tablet 10 mg PO DAILY cholesterol # 30 tabs 10/11/24 Unknown Rx levothyroxine 25 mcg tablet 25 mcg PO QDAY thyroid 10/02 Unknown History vitamin B complex-vitamin C-folic 1 tab PO QDAY supple ment 10/11/24 Unknown History acid 0.8 mg tablet (Rani-Yahir) warfarin 2 mg tablet 9 mg PO SUTUTHSA blood thinn er 10/11/24 Unknown History warfarin 3 mg tablet 8 mg PO MOWEFR blood thinner 10/11/24 Unknown History zolpidem 10 mg tablet 10 mg PO QHS PRN insomnia Unknown History digoxin 125 mcg (0.125 mg) tablet 125 mcg PO QODAY hea rt #30 tabs 01/09/25 Unknown Rx carvedilol 6.25 mg tablet 6.25 mg PO BID blood pressur e 03/29/25 Unknown History telmisartan 40 mg tablet 40 mg PO BID blood pressure 03/29/25 Unknown History Allergy/AdvReac Type Severity Reaction Status Date / Time amoxicillin Allergy Rash Verified 03/29/25 15:14 doxercalciferol (From Allergy Hives Verified 03/29/25 15:14 Hectorol) etodolac Allergy Rash Verified 03/29/25 15:14 Penicillins (PCN) Allergy Rash Verified 03/29/25 15:14 sulfamethoxazole (From Allergy Rash Verified 03/29/25 15:14 Bactrim) tramadol Allergy Rash Verified 03/29/25 15:14 trimethoprim (From Bactrim) Allergy Rash Verified 03/29/25 15:14 strawberry AdvReac Vomiting Verified 03/29/25 15:14 Family History Father Hypertension Kidney disease Mother Diabetes Family History no significant family his Surgical History Hx of kidney removal History of implantable cardiac defibrillator (ICD) (11/22/19) History of coronary artery stent placement (04/22/16) fistulogram History of thyroid surgery Surgical History no surgical history Social History household members: none Smoking Status: Never smoker alcohol intake: never substance use type: does not use diet: other caffeine: No what type of physical activity do you participate in: none seatbelt use: always do you feel safe at home: Yes ROS ROS Narrative Negative except above Physical Exam Narrative no obvious distress no pallor no icterus no JVD s1s2 no murmurs lungs clear abdomen soft no organomegaly no edema Lab / Micro Data 04/01/25 05:55 04/01/25 05:55 Labs: Laboratory Results - last 24 hr 03/31/25 15:15: PT 29.6 H, INR 2.7 04/01/25 05:55: WBC 7.2, RBC 3.02 L, Hgb 9.1 L, Hct 27.6 L, MCV 91.4, MCH 30.1, MCHC 33.0, RDW Std Deviation 58.0 H, RDW Coeff of Tana 18.0 H, Plt Count 246, MPV9.2, Immature Gran % (Auto) 0.400, Neut % (Auto) 66.8, Lymph % (Auto) 16.4 L, [place] % (Auto) 7.5, Eos % (Auto) 8.2 H, Baso % (Auto) 0.7, Absolute Neuts (auto) 4.8, Absolute Lymphs (auto) 1.18, Nucleated RBC % 0, Sodium 131 L, Potassium 4.5, Chloride 91 L, Carbon Dioxide 22.4, Anion Gap 18 H, BUN 50 H, Creatinine 11.10 H*, Estim Creat Clear Calc 5.33 L*, Est GFR (MDRD) Non-Af 4 L, BUN/Creatinine Ratio 4.5 L, Glucose 91, Calcium 7.7 Rhythm Strip Rhythm Strip: Sinus Rhythm Rate: 62 Ectopy: None 04/01/25 1100 <Electronically signed by Watson Dalal MD> Cosigner Signature (if applicable): CC: Dr. Trevor Vieyra MD~ Signed [facility] Work Phone: 1(454) 189-428009-22-2025 Discharge summary [facility] Medical Records Department [facility] [place] [address] Instructions for Home/Discharge Instructions 04/01/25 1150 MR#: [id number] Acct: [id number] Name: SPENCER REDDING Rep #:[id number] : 1965 59 From: Armando paul MD PCP: Dr. Trevor Vieyra MD Status:ADM IN Discharge Instructions DC O2, CPAP, BIPAP needs Home O2 Discharge instructions: No Dressing / Incision Discharge Activity: Return to Normal Activity Dressing / Incision Call your doctor if you observe: Fever of 101 or Higher, Shortness of breath, Dizziness, Fainting spells, Swelling in the ankles, Chest pain and Increased palpitations (irregular heartbeat) Follow Up Care Test Results: Test results from this visit will be discussed in further detail at your follow- up appointment, if applicable. Discharge Plan Admission Admit Date/Time: 03/30/25 20:01 Attending Provider: Armando Booker Primary Care Provider: Trevor Vieyra Consulting Providers: Saadia Valencia; Ernesto Garvin; Watson Dalal; Sudarshan Garcia Discharge Orders/Prescriptions Prescriptions: New amlodipine 10 mg Tablet 10 mg PO DAILY 30 Days Qty: 30 0RF Continued cholecalciferol (vitamin D3) 1,000 unit tablet 1,000 unit PO QDAY sevelamer carbonate 800 mg tablet 4,000 mg PO TID 30 Days Qty: 90 calcium carbonate [Tums] 200 mg calcium (500 mg) tablet,chewable 400 mg PO BID ipratropium bromide 21 mcg (0.03 %) spray,non-aerosol 2 spray intranasal DAILY Rx Instructions: administer into each nostril levothyroxine 25 mcg tablet 25 mcg PO QDAY warfarin 3 mg tablet 8 mg PO MOWEFR warfarin 2 mg tablet 9 mg PO SUTUTHSA Rani-Yahir 0.8 mg tablet 1 tab PO QDAY zolpidem 10 mg tablet 10 mg PO QHS PRN (Reason: insomnia) atorvastatin 10 mg tablet 10 mg PO DAILY Qty: 30 12RF sertraline 50 MG tablet 75 mg PO QHS carvedilol 6.25 mg tablet 6.25 mg PO BID telmisartan 40 mg tablet 40 mg PO BID nitroglycerin 0.4 mg tablet, sublingual 0.4 mg SUBLINGUAL Q5M PRN (Reason: Chest Pain) Qty: 25 2RF Discontinued digoxin 125 mcg (0.125 mg) tablet 125 mcg PO QODAY Qty: 30 11RF Other Ambulatory Orders: Cardiac Holter Monitor, 48 Hrs (Routine) Timeframe: 1 Day Facility: [facility] - Location: Cardiovascular Services Ordered By: Dr. Armando Booker Referrals / Follow Up: Ernesto Garvin MD [Med Staff - Active Staff, Cardiology] - Within 1 Month Trevor Vieyra MD [Primary Care Provider, Family Practice] - Within 1 Week Disposition Disposition (needs filled in before D/C Order can be placed): Home, Self Care 04/01/25 1157Armando Booker MD CC: Dr. Saadia Valencia MD; Dr. Ernesto Garvin MD; Dr. Trevor Vieyra MD; Dr. Watson Dalal MD; Dr.Prakash Jose MD ~ Signed [facility]09-22-2025 Consult note [facility] Medical Records Department [address] [place] [address] Consultation - Nephrology 04/01/25 1059 MR#: [id number] Acct: [id number] Name: SPENCER REDDING Rep #:[id number] : 1965 59 From: Watson garcía MD PCP: Dr. Trevor Vieyra MD Status:ADM IN Location: ICU ICU02-1 Assessment & Plan Assessment/Plan (1) ESRD (end stage renal disease) on dialysis: PLAN: Seen on dialysis today. See orders/flowsheets. Will use 3K bath in view of arrhythmia. HPI Consult Data Date of Consult: 04/01/25 HPI Narrative Reason for Consultation: ESRD HPI Narrative: SPECNER REDDING, is a 59 F who presents to the hospital with tachyarrhythmias. Nephrology on consultation in view of ESRD. On hemodialysis Tuesday, Tuesday, Tuesday. [facility] Medical History Polycystic kidney disease Sudden cardiac Hypertriglyceridemia Hyperlipidemia History of torsades de pointes Atherosclerosis of coronary artery of [place] heart without angina pectoris Syncope and collapse Ventricular fibrillation Ischemic cardiomyopathy ESRD (end stage renal disease) on dialysis Nonsustained ventricular tachycardia History of recurrent miscarriages, not currently History of DVT (deep vein thrombosis) Congenital polycystic kidney disease History of allergic rhinitis Obesity Benign essential hypertension Home Medications ?Medication ?Instructions ?Recorded ?Last Taken ?Type sertraline 50 mg tablet 75 mg PO QHS depression 01/0803/15/23 History cholecalciferol (vitamin D3) 25 1,000 unit PO QDAY sup plement 10/24/17 03/15/23 History mcg (1,000 unit) tablet sevelamer carbonate 800 mg tablet 4,000 mg PO TID bind er 30 days #90 06/11/21 03/15/23 History tabs calcium carbonate (Tums) 400 mg PO BID 03/30/2203/15 History nitroglycerin 0.4 mg sublingual 0.4 mg sublingual Q5M PRN Chest 10/14/22 03/15/23 Rx tablet Pain #25 tabs ipratropium bromide 21 mcg (0.03 2 spray intranasal DA BHANU 05/10/23 Unknown History %) nasal spray atorvastatin 10 mg tablet 10 mg PO DAILY cholesterol # 30 tabs 10/11/24 Unknown Rx levothyroxine 25 mcg tablet 25 mcg PO QDAY thyroid 10/02 Unknown History vitamin B complex-vitamin C-folic 1 tab PO QDAY supple ment 10/11/24 Unknown History acid 0.8 mg tablet (Rani-Yahir) warfarin 2 mg tablet 9 mg PO SUTUTHSA blood thinn er 10/11/24 Unknown History warfarin 3 mg tablet 8 mg PO MOWEFR blood thinner 10/11/24 Unknown History zolpidem 10 mg tablet 10 mg PO QHS PRN insomnia Unknown History digoxin 125 mcg (0.125 mg) tablet 125 mcg PO QODAY hea rt #30 tabs 01/09/25 Unknown Rx carvedilol 6.25 mg tablet 6.25 mg PO BID blood pressur e 03/29/25 Unknown History telmisartan 40 mg tablet 40 mg PO BID blood pressure 03/29/25 Unknown History Allergy/AdvReac Type Severity Reaction Status Date / Time amoxicillin Allergy Rash Verified 03/29/25 15:14 doxercalciferol (From Allergy Hives Verified 03/29/25 15:14 Hectorol) etodolac Allergy Rash Verified 03/29/25 15:14 Penicillins (PCN) Allergy Rash Verified 03/29/25 15:14 sulfamethoxazole (From Allergy Rash Verified 03/29/25 15:14 Bactrim) tramadol Allergy Rash Verified 03/29/25 15:14 trimethoprim (From Bactrim) Allergy Rash Verified 03/29/25 15:14 strawberry AdvReac Vomiting Verified 03/29/25 15:14 Family History Father Hypertension Kidney disease Mother Diabetes Family History no significant family his Surgical History Hx of kidney removal History of implantable cardiac defibrillator (ICD) (11/22/19) History of coronary artery stent placement (04/22/16) fistulogram History of thyroid surgery Surgical History no surgical history Social History household members: none Smoking Status: Never smoker alcohol intake: never substance use type: does not use diet: other caffeine: No what type of physical activity do you participate in: none seatbelt use: always do you feel safe at home: Yes ROS ROS Narrative Negative except above Physical Exam Narrative no obvious distress no pallor no icterus no JVD s1s2 no murmurs lungs clear abdomen soft no organomegaly no edema Lab / Micro Data 04/01/25 05:55 04/01/25 05:55 Labs: Laboratory Results - last 24 hr 03/31/25 15:15: PT 29.6 H, INR 2.7 04/01/25 05:55: WBC 7.2, RBC 3.02 L, Hgb 9.1 L, Hct 27.6 L, MCV 91.4, MCH 30.1, MCHC 33.0, RDW Std Deviation 58.0 H, RDW Coeff of Tana 18.0 H, Plt Count 246, MPV9.2, Immature Gran % (Auto) 0.400, Neut% (Auto) 66.8, Lymph % (Auto) 16.4 L, [place] % (Auto) 7.5, Eos % (Auto) 8.2 H, Baso % (Auto) 0.7, Absolute Neuts (auto) 4.8, Absolute Lymphs (auto) 1.18, Nucleated RBC % 0, Sodium 131 L, Potassium 4.5,Chloride 91 L, Carbon Dioxide 22.4, Anion Gap 18 H, BUN 50 H, Creatinine 11.10 H*, Estim Creat Clear Calc 5.33 L*, Est GFR (MDRD) Non-Af 4 L, BUN/Creatinine Ratio 4.5 L, Glucose 91, Calcium 7.7 Rhythm Strip Rhythm Strip: Sinus Rhythm Rate: 62 Ectopy: None 04/01/25 1100 Cosigner Signature (if applicable): CC: Dr. Trevor Vieyra MD~ Signed [facility]09-22-2025 Progress note Author Ernesto Garvin [facility] Note Date/Time April 01, 2025 7:04am [facility] Medical Records Department [address] [place] [address] Progress Note - Cardiology 04/01/25 0646 MR#: [id number] Acct: [id number] Name: SPENCER REDDING Rep #:[id number] : 1965 59 From: Ernesto Garvin MD PCP: Dr. Trevor Vieyra MD Status:ADM IN Location: ICU ICU02-1 Subjective Subjective Patient seen and evaluated. Doing well. No complaints. No further rhythm disturbances Objective Data Vital Signs: Vital Signs Temp Pulse Resp BP Pulse Ox O2 Del Method O2 Flow Rate 98.0 F 65 16 168/65 H 95 Nasal Cannula 2 03/30/25 20:30 04/01/25 06:00 04/01/25 06:00 04/01/25 06:00 04/01/25 06:00 04/01/25 06:00 04/01/25 06:00 Oxygen Flow Rate (L/min) 2 Oxygen Delivery Method Nasal Cannula Weight: 179 lb 7.3 oz Body Mass Index (BMI) 32.8 Intake & Output: Intake and Output for Last 24 Hours 03/30/25 03/31/25 04/01/25 23:59 23:59 23:59 Intake Total 104 / 104 1015.00 / 1015.00 Output Total 0 / 0 0 / 0 Balance 104 / 104 1015.00 / 1015.00 0 / 0 Lab / Micro Data 04/01/25 05:55 04/01/25 05:55 Labs: Laboratory Results - last 24 hr 03/31/25 06:08: Sodium 130 L, Potassium 3.5, Chloride 89 L, Carbon Dioxide 23.0,Anion Gap 18 H, BUN 37 H, Creatinine 9.32 H*, Estim Creat Clear Calc 6.33 L*, Est GFR (MDRD) Non-Af 4 L, BUN/Creatinine Ratio 4.0 L, Glucose 156 H, Calcium 8.0, Magnesium 2.8 H, Triglycerides 166, Cholesterol 155, LDL Cholesterol, Calc 95, VLDL Cholesterol 33, HDL Cholesterol 27 L, Cholesterol/HDL Ratio 5.83 03/31/25 15:15: PT 29.6 H, INR 2.7 04/01/25 05:55: WBC 7.2, RBC 3.02 L, Hgb 9.1 L, Hct 27.6 L, MCV 91.4, MCH 30.1, MCHC 33.0, RDW Std Deviation 58.0 H, RDW Coeff of Tana 18.0 H, Plt Count 246, MPV9.2, Immature Gran % (Auto) 0.400, Neut % (Auto) 66.8, Lymph % (Auto) 16.4 L, [place] % (Auto) 7.5, Eos % (Auto) 8.2 H, Baso % (Auto) 0.7, Absolute Neuts (auto) 4.8, Absolute Lymphs (auto) 1.18, Nucleated RBC % 0, Sodium 131 L, Potassium 4.5, Chloride 91 L, Carbon Dioxide 22.4, Anion Gap 18 H, BUN 50 H, Creatinine 11.10 H*, Estim Creat Clear Calc 5.33 L*, Est GFR (MDRD) Non-Af 4 L, BUN/Creatinine Ratio 4.5 L, Glucose 91, Calcium 7.7 Rhythm Strip Rhythm Strip: Sinus Rhythm Rate: 62 Ectopy: None Cardiology Labs/Tests 03/31/25 06:08: Sodium 130 L, Potassium 3.5, Chloride 89 L, Carbon Dioxide 23.0,Anion Gap 18 H, BUN 37 H, Creatinine 9.32 H*, Est GFR (MDRD) Non-Af 4 L, BUN/Creatinine Ratio 4.0 L, Glucose 156 H, Calcium 8.0, Magnesium 2.8 H, Triglycerides 166, Cholesterol 155, VLDL Cholesterol 33, HDL Cholesterol 27 L, Cholesterol/HDL Ratio 5.83 03/31/25 15:15: PT 29.6 H, INR 2.7 04/01/25 05:55: WBC 7.2, RBC 3.02 L, Hgb 9.1 L, Hct 27.6 L, MCV 91.4, MCH 30.1, MCHC 33.0, Plt Count 246, MPV 9.2, Immature Gran % (Auto) 0.400, Neut % (Auto) 66.8, Lymph % (Auto) 16.4 L, [place] % (Auto) 7.5, Eos % (Auto) 8.2 H, Baso % (Auto) 0.7, Absolute Neuts (auto) 4.8, Nucleated RBC % 0, Sodium 131 L, Potassium 4.5, Chloride 91 L, Carbon Dioxide 22.4, Anion Gap 18 H, BUN 50 H, Creatinine 11.10 H*, Est GFR (MDRD) Non-Af 4 L, BUN/Creatinine Ratio 4.5 L, Glucose 91, Calcium 7.7 Rhythm: EKG: ECHO: Stress Test: Cardiac Cath: PCI: CT Surgery: Holter monitor: EPS: PPM: CXR: Chest CT Scan: Physical Exam Const alert, oriented x3 and no apparent distress General Appearance: cooperative HEENT hearing grossly normal bilaterally Head and Scalp: atraumatic Eyes EOMs intact bilaterally Neck General: normal visual inspection Chest inspection of chest normal and palpation of chest normal Resp normal respiratory effort Auscultation: clear to auscultation bilaterally Cardio regular rate, regular rhythm, S1 normal heart sound and S2 normal heart sound Jugular Venous Distention: JVD GI normal to inspection, nondistended, normoactive bowel sounds Extremity normal capillary refill and no pedal edema Peripheral Pulses: Yes pulses 2+ throughout and femoral pulses present Skin no rashes or lesions noted Neuro oriented x3 and CN's II-XII intact bilaterally Psych Appearance: grossly normal and appropriate Assessment & Plan Assessment/Plan (1) Torsades de pointes: PLAN: She does present with symptomatic torsade de pointes. This was likely dueto digoxin. The above has resolved. Isopril can be discontinued She can undergo dialysis today then consider discharge with outpatient Holter monitor. (2) Accelerated essential hypertension: PLAN: Her blood pressure was elevated overnight. Continue current antihypertensive medications. (3) History of implantable cardiac defibrillator (ICD): PLAN: She is status post implantable defibrillator. No defibrillator dischargeshave been noted. (4) History of coronary artery stent placement: PLAN: She does have a history of coronary artery disease coronary artery stenting of the right coronary artery and the left anterior descending artery. Stress test performed during this admission demonstrates no evidence of ischemia. (5) Benign essential hypertension: PLAN: Her blood pressure is elevated and we will try and make appropriate adjustments. Echocardiogram demonstrated preserved ejection fraction of 65%. (6) Hyperlipidemia: QUALIFIERS: Hyperlipidemia type: unspecified Qualified Code(s): E78.5 - Hyperlipidemia, unspecified PLAN: She does have a history of hyperlipidemia and will continue with risk factor modification. 04/01/25 0704 <Electronically signed by Ernesto Garvin MD> Cosigner Signature (if applicable): CC: ~ Signed [facility] Work Phone: 1(376) 650-344709-22-2025 Progress note [facility] Medical Records Department [address] [place] [address] Progress Note - Cardiology 04/01/25 0646 MR#: [id number] Acct: [id number] Name: SPENCER REDDING Rep #:[id number] : 1965 59 From: Ernesto Garvin MD PCP: Dr. Trevor Vieyra MD Status:ADM IN Location: ICU ICU02-1 Subjective Subjective Patient seen and evaluated. Doing well. No complaints. No further rhythm disturbances Objective Data Vital Signs: Vital Signs Temp Pulse Resp BP Pulse Ox O2 Del Method O2 Flow Rate 98.0 F 65 16 168/65 H 95 Nasal Cannula 2 03/30/25 20:30 04/01/25 06:00 04/01/25 06:00 04/01/25 06:00 04/01/25 06:00 04/01/25 06:00 04/01/25 06:00 Oxygen Flow Rate (L/min) 2 Oxygen Delivery Method Nasal Cannula Weight: 179 lb 7.3 oz Body Mass Index (BMI) 32.8 Intake & Output: Intake and Output for Last 24 Hours 03/30/25 03/31/25 04/01/25 23:59 23:59 23:59 Intake Total 104 / 104 1015.00 / 1015.00 Output Total 0 / 0 0 / 0 Balance 104 / 104 1015.00 / 1015.00 0 / 0 Lab / Micro Data 04/01/25 05:55 04/01/25 05:55 Labs: Laboratory Results - last 24 hr 03/31/25 06:08: Sodium 130 L, Potassium 3.5, Chloride 89 L, Carbon Dioxide 23.0,Anion Gap 18 H, BUN37 H, Creatinine 9.32 H*, Estim Creat Clear Calc 6.33 L*, Est GFR (MDRD) Non-Af 4 L, BUN/CreatinineRatio 4.0 L, Glucose 156 H, Calcium 8.0, Magnesium 2.8 H, Triglycerides 166, Cholesterol 155, LDL Cholesterol, Calc 95, VLDL Cholesterol 33, HDL Cholesterol 27 L, Cholesterol/HDL Ratio 5.83 03/31/25 15:15: PT 29.6 H, INR 2.7 04/01/25 05:55: WBC 7.2, RBC 3.02 L, Hgb 9.1 L, Hct 27.6 L, MCV 91.4, MCH 30.1, MCHC 33.0, RDW Std Deviation 58.0 H, RDW Coeff of Tana 18.0 H, Plt Count 246, MPV9.2, Immature Gran % (Auto) 0.400, Neut% (Auto) 66.8, Lymph % (Auto) 16.4 L, [place] % (Auto) 7.5, Eos % (Auto) 8.2 H, Baso % (Auto) 0.7, Absolute Neuts (auto) 4.8, Absolute Lymphs (auto) 1.18, Nucleated RBC % 0, Sodium 131 L, Potassium 4.5,Chloride 91 L, Carbon Dioxide 22.4, Anion Gap 18 H, BUN 50 H, Creatinine 11.10 H*, Estim Creat Clear Calc 5.33 L*, Est GFR (MDRD) Non-Af 4 L, BUN/Creatinine Ratio 4.5 L, Glucose 91, Calcium 7.7 Rhythm Strip Rhythm Strip: Sinus Rhythm Rate: 62 Ectopy: None Cardiology Labs/Tests 03/31/25 06:08: Sodium 130 L, Potassium 3.5, Chloride 89 L, Carbon Dioxide 23.0,Anion Gap 18 H, BUN37 H, Creatinine 9.32 H*, Est GFR (MDRD) Non-Af 4 L, BUN/Creatinine Ratio 4.0 L, Glucose 156 H, Calcium 8.0, Magnesium 2.8 H, Triglycerides 166, Cholesterol 155, VLDL Cholesterol 33, HDL Cholesterol 27 L, Cholesterol/HDL Ratio 5.83 03/31/25 15:15: PT 29.6 H, INR 2.7 04/01/25 05:55: WBC 7.2, RBC 3.02 L, Hgb 9.1 L, Hct 27.6 L, MCV 91.4, MCH 30.1, MCHC 33.0, Plt Count 246, MPV 9.2, Immature Gran % (Auto) 0.400, Neut % (Auto) 66.8, Lymph % (Auto) 16.4 L, [place] % (Auto) 7.5, Eos % (Auto) 8.2 H, Baso % (Auto) 0.7, Absolute Neuts (auto) 4.8, Nucleated RBC % 0, Sodium 131 L, Potassium 4.5, Chloride 91 L, Carbon Dioxide 22.4, Anion Gap 18 H, BUN 50 H, Creatinine 11.10H*, Est GFR (MDRD) Non-Af 4 L, BUN/Creatinine Ratio 4.5 L, Glucose 91, Calcium 7.7 Rhythm: EKG: ECHO: Stress Test: Cardiac Cath: PCI: CT Surgery: Holter monitor: EPS: PPM: CXR: Chest CT Scan: Physical Exam Const alert, oriented x3 and no apparent distress General Appearance: cooperative HEENT hearing grossly normal bilaterally Head and Scalp: atraumatic Eyes EOMs intact bilaterally Neck General: normal visual inspection Chest inspection of chest normal and palpation of chest normal Resp normal respiratory effort Auscultation: clear to auscultation bilaterally Cardio regular rate, regular rhythm, S1 normal heart sound and S2 normal heart sound Jugular Venous Distention: JVD GI normal to inspection, nondistended, normoactive bowel sounds Extremity normal capillary refill and no pedal edema Peripheral Pulses: Yes pulses 2+ throughout and femoral pulses present Skin no rashes or lesions noted Neuro oriented x3 and CN's II-XII intact bilaterally Psych Appearance: grossly normal and appropriate Assessment & Plan Assessment/Plan (1) Torsades de pointes: PLAN: She does present with symptomatic torsade de pointes. This was likely dueto digoxin. The above has resolved. Isopril can be discontinued She can undergo dialysis today then consider discharge with outpatient Holter monitor. (2) Accelerated essential hypertension: PLAN: Her blood pressure was elevated overnight. Continue current antihypertensive medications. (3) History of implantable cardiac defibrillator (ICD): PLAN: She is status post implantable defibrillator. No defibrillator dischargeshave been noted. (4) History of coronary artery stent placement: PLAN: She does have a history of coronary artery disease coronary artery stenting of the right coronary artery and the left anterior descending artery. Stress test performed during this admission demonstrates no evidence of ischemia. (5) Benign essential hypertension: PLAN: Her blood pressure is elevated and we will try and make appropriate adjustments. Echocardiogram demonstrated preserved ejection fraction of 65%. (6) Hyperlipidemia: QUALIFIERS: Hyperlipidemia type: unspecified Qualified Code(s): E78.5 - Hyperlipidemia, unspecified PLAN: She does have a history of hyperlipidemia and will continue with risk factor modification. 04/01/25 0704 Cosigner Signature (if applicable): CC: ~ Signed [facility]09-21-2025 Progress note Author Armando Booker [facility] Note Date/Time March 31, 2025 9:56am [facility] Medical Records Department [address] [place] [address] Progress Note - Hospitalist 03/31/2551 MR#: [id number] Acct: [id number] Name: SPENCER REDDING Rep #:[id number] : 1965 59 From: Armando paul MD PCP: Dr. Trevor Vieyra MD Status:ADM IN Location: ICU ICU02-1 Subjective Subjective She went into torsades last night and had to be transferred back to the ICU. Nochest pain or lightheadedness. Objective Data Objective Data Vital Signs: Vital Signs Temp Pulse Resp BP Pulse Ox O2 Del Method O2 Flow Rate 98.0 F 72 18 151/65 H 95 Room Air 2 03/30/25 20:30 03/31/25 09:00 03/31/25 09:00 03/31/25 09:00 03/31/25 09:00 03/31/25 09:00 03/31/25 06:00 Oxygen Flow Rate (L/min) 2 Oxygen Delivery Method Room Air Weight: 178 lb 5.663 oz Body Mass Index (BMI) 32.5 Intake & Output: Intake and Output for Last 24 Hours 03/30/25 03/31/25 04/01/25 03:59 03:59 03:59 Intake Total 400 / 400 564 / 564 386.88 / 386.88 Output Total 0 / 0 0 / 0 Balance 400 / 400 564 / 564 386.88 / 386.88 Lab / Micro Data 03/31/25 06:08 03/31/25 06:08 Labs: Laboratory Results - last 24 hr 03/31/25 06:08: WBC 6.5, RBC 3.06 L, Hgb 9.1 L, Hct 27.7 L, MCV 90.5, MCH 29.7, MCHC 32.9, RDW Std Deviation 54.9 H, RDW Coeff of Tana 17.6 H, Plt Count 232, MPV9.1, Immature Gran % (Auto) 0.300, Neut % (Auto) 77.4 H, Lymph % (Auto) 11.1 L, [place] % (Auto) 8.0, Eos % (Auto) 2.9, Baso % (Auto) 0.3, Absolute Neuts (auto) 5.0, Absolute Lymphs (auto) 0.72 L, Nucleated RBC % 0, Sodium 130 L, Potassium 3.5, Chloride 89 L, Carbon Dioxide 23.0, Anion Gap 18 H, BUN 37 H, Creatinine 9.32 H*, Estim Creat Clear Calc 6.33 L*, Est GFR (MDRD) Non-Af 4 L, BUN/Creatinine Ratio 4.0 L, Glucose 156 H, Calcium 8.0, Magnesium 2.8 H, Triglycerides 166, Cholesterol 155, LDL Cholesterol, Calc 95, VLDL Cholesterol 33, HDL Cholesterol 27 L, Cholesterol/HDL Ratio 5.83 Radiography Diagnostic Testing: Radiology Impression Echocardiogram 03/29/25 20:38 Interpretation Summary Normal LV size. Left ventricular systolic function is normal. The left ventricular ejection fraction is 65 %. Stage 2 diastolic dysfunction. Pulmonary artery systolic pressure is 40 mmHg. Ordering Physician: Saadia Valencia Performed By: Jane Arnold RDCS Abdomen X-Ray 03/30/25 16:05 IMPRESSION: Nonspecific findings. - Findings and recommendations discussed above in detail. Reading Location: [facility] Rhythm Strip Rhythm Strip: Sinus Rhythm Rate: 62 Ectopy: None Physical Exam Narrative General: Alert, Oriented x3, Cooperative, No apparent distress HEENT: Atraumatic, PERRLA, EOMI, Normocephalic Oral: Moist Mucosa Neck: Supple, No JVD Lungs: Diminished, Normal air movement, No rhonchi, No wheeze, No rales Cardiovascular: Regular rate, Regular Rhythm, Normal S1, Normal S2, No murmurs Abdomen: Soft, Non Tender, Non-Distended, No Hepato-splenomegaly Extremities: No edema, Capillary Refill Less than 3 Seconds Skin: No rashes, No breakdown Musculoskeletal: No Tenderness to Palpation of Joints or Extremities Neurological: No focal neurological deficits, Motor Exam 5/5 strength throughout, Sensory exam intact to light touch and pain Psych/Mental Status: Normal Affect, Appropriate Assessment & Plan Assessment/Plan (1) Chest pressure: PLAN: Plan #1. Hypertensive urgency: Patient blood pressure is high chronically systolic more than 200. At home patient is on telmisartan, carvedilol and digoxin but not on diuretic. Patient is started on chlorthalidone 12.5 mg daily. On IV hydralazine and labetalol as needed SBP more than 180 mmHg. Blood pressure still high 180/57, 172/56. and blood pressure is controlled about systolic 150spatient can be discharged and advised follow-up with director of player personnel for better control of blood pressure. 2. Atypical chest pain, localized: ACS ruled out. Twelve-lead EKG nondiagnostic of ACS. Serial troponins were mildly elevated 60-63 and 66. patient had nuclear stress test negative for acute ischemia. ACS ruled out. 2Decho shows EF 65% with stage II diastolic dysfunction, mild TR PASP 43. Overallsuggestive of chronic HFpEF #2. Polycystic kidney disease status post bilateral nephrectomy with ESRD: Patient with ongoing dialysis Tuesday, Tuesday, Tuesday,: Patient did not have any need for hemodialysis. Operations Coordinator consulted electrolytes in normal limit. BUN/creatinine high 27/7.27. Serum magnesium 2.0. 03/31/2025: Appreciate nephrology's assistance #3. Chronic normocytic anemia/AOCD: Admission hemoglobin 8.8, MCV 91.2, baseline hemoglobin ranges primarily 9-11, most recently previous 03/28/2025 hemoglobin 9.1, hemoglobin 8.8. On baseline #4. Orthostatic hypotension: Given patient recent increased blood pressures although labile especially dialysis will hold midodrine regimen at this time. #5. CAD: Status post previous PCI 2015, continue Coumadin, statin, Coreg, telmisartan regimen with hold parameters as needed. #6. PAF: continue patient home digoxin and Coumadin regimen, INR 2.3, therapeutic #7. History of torsades, recent as noted symptomatic VT burst: Status post previous AICD placement 2019, Will continue digoxin, coreg regimen. Interrogation attempted in the ED with noted AF with no firing. 03/31/2025: Transferred to the ICU overnight for symptomatic torsades, appreciatecardiology's assistance. Will maintain potassium greater than 4 and magnesium is 2.8 today #8. Hypothyroidism: On levothyroxine. TSH normal. #9. Obesity: Weight loss and lifestyle changes encouraged. #10. Anxiety and depression: Will continue patient home sertraline regimen. #11. Hyperlipidemia: Will continue patient on statin therapy, DVT: Coumadin Charges/Coding Visit Charges Inpatient E&M: 41867 Subs Hosp L2 03/31/25 0956 <Electronically signed by Armando Booker MD> Cosigner Signature (if applicable): CC: ~ Signed [facility] Work Phone: 1(954) 411-802309-21-2025 Consult note Author Ernesto Garvin [facility] Note Date/Time April 01, 2025 5:15pm [facility] Medical Records Department [address] [place] [id number] Consultation - Cardiology 03/31/2525 MR#: [id number] Acct: [id number] Name: SPENCER REDDING Rep #:[id number] : 1965 59 From: Ernesto Garvin MD PCP: Dr. Trevor Vieyra MD Status:DIS IN Location: ICU ICU02-1 Assessment & Plan Assessment/Plan (1) Torsades de pointes: PLAN: She does present with symptomatic torsade de pointes. The plan will be totry and keep her potassium at 4.0 or higher. She will be given extra potassium this morning not with standing renal problems. She is also on the Isopril whichwill be continued but we will reduce the dose to 2.5 mics per minute. Will continue to monitor her with serial EKGs. (2) Accelerated essential hypertension: PLAN: Her blood pressure was elevated overnight. Will adjust her medications and increase amlodipine to 10 mg a day and continue her other current medications. Will discuss with nephrology about continued use of [place]. (3) History of implantable cardiac defibrillator (ICD): PLAN: She is status post implantable defibrillator. No defibrillator dischargeshave been noted. (4) History of coronary artery stent placement: PLAN: She does have a history of coronary artery disease coronary artery stenting of the right coronary artery and the left anterior descending artery. Stress test performed during this admission demonstrates no evidence of ischemia. (5) Benign essential hypertension: PLAN: Her blood pressure is elevated and we will try and make appropriate adjustments. Echocardiogram demonstrated preserved ejection fraction of 65%. (6) Hyperlipidemia: QUALIFIERS: Hyperlipidemia type: unspecified Qualified Code(s): E78.5 - Hyperlipidemia, unspecified PLAN: She does have a history of hyperlipidemia and will continue with risk factor modification. HPI Consult Data Date of Consult: 03/31/25 HPI Narrative HPI Narrative: SPENCER REDDING, is a 59 F who presents to the emergency room with complaints of chest discomfort, dyspnea and elevated blood pressure. She was also noted to have a 10 beat run of a wide-complex tachycardia. She was admitted to the telemetry unit and underwent an echocardiogram which demonstrated preserved ejection fraction as well as myocardial perfusion stress test which demonstratedno evidence of ischemia. While on the telemetry floor the patient was noted to have wide-complex tachycardia in the pattern of torsade. Cardiology was called for evaluation and management. Patient was noted to have a prolonged QT interval. She had been on digoxin. She has a history of coronary artery disease with a known high-grade lesion of the right coronary artery diagnosed 2015 after she had developed torsade de pointes. She underwent angioplasty and stenting of the above. She did have angioplasty and stenting ofher moderate 60 to 70% lesion in the left anterior descending artery which was stented and a moderate 60% lesion in the circumflex artery which was managed medically. As a result of her rhythm abnormalities of the above she also underwent implantation of a subcutaneous defibrillator in July 2016. She hadgenerator changed in November 2019. She continues on dialysis 3 times a week M,W, and F. She also has a history of hypertension, hyperparathyroidism, and anemia.She does have her ICD checked routinely through [facility]. Her INR is managed by her PCP. When she was last seen in the office,She denies chest, arm, jaw, or neck discomfort. She states infrequent palpitations that she describes as fast. Shedenies bilateral lower extremity edema. She denies claudication. She denies shortness of breath with activity, shortness of breath at rest, orthopnea, or PND. She denies chronic cough. She denies significant, sudden weight gain. She states lightheadedness, dizziness, near-syncope, and syncope. She denies blood in urine, blood in stool, or epistaxis. He denies fever with chills. Shedenies myalgia. She acknowledges fatigue. Her exercise level has remained stable. EKG on the telemetry floor demonstrated prolonged QT of 540 ms and resulting torsade de pointes. She was transferred to the telemetry intensive care unit and started on intravenous Isopril. This morning she is doing so muchbetter with no further rhythm abnormalities present. [facility] Medical History Polycystic kidney disease Sudden cardiac Hypertriglyceridemia Hyperlipidemia History of torsades de pointes Atherosclerosis of coronary artery of [place] heart without angina pectoris Syncope and collapse Ventricular fibrillation Ischemic cardiomyopathy ESRD (end stage renal disease) on dialysis Nonsustained ventricular tachycardia History of recurrent miscarriages, not currently History of DVT (deep vein thrombosis) Congenital polycystic kidney disease History of allergic rhinitis Obesity Benign essential hypertension Home Medications ?Medication ?Instructions ?Recorded ?Last Taken ?Type sertraline 50 mg tablet 75 mg PO QHS depression 01/0803/15/23 History cholecalciferol (vitamin D3) 25 1,000 unit PO QDAY sup plement 10/24/17 03/15/23 History mcg (1,000 unit) tablet sevelamer carbonate 800 mg tablet 4,000 mg PO TID bind er 30 days #90 06/11/21 03/15/23 History tabs calcium carbonate (Tums) 400 mg PO BID 03/30/2203/15 History nitroglycerin 0.4 mg sublingual 0.4 mg sublingual Q5M PRN Chest 10/14/22 03/15/23 Rx tablet Pain #25 tabs ipratropium bromide 21 mcg (0.03 2 spray intranasal DA BHANU 05/10/23 Unknown History %) nasal spray atorvastatin 10 mg tablet 10 mg PO DAILY cholesterol # 30 tabs 10/11/24 Unknown Rx levothyroxine 25 mcg tablet 25 mcg PO QDAY thyroid 10/02 Unknown History vitamin B complex-vitamin C-folic 1 tab PO QDAY supple ment 10/11/24 Unknown History acid 0.8 mg tablet (Rani-Yahir) warfarin 2 mg tablet 9 mg PO SUTUTHSA blood thinn er 10/11/24 Unknown History warfarin 3 mg tablet 8 mg PO MOWEFR blood thinner 10/11/24 Unknown History zolpidem 10 mg tablet 10 mg PO QHS PRN insomnia Unknown History digoxin 125 mcg (0.125 mg) tablet 125 mcg PO QODAY hea rt #30 tabs 01/09/25 Unknown Rx carvedilol 6.25 mg tablet 6.25 mg PO BID blood pressur e 03/29/25 Unknown History telmisartan 40 mg tablet 40 mg PO BID blood pressure 03/29/25 Unknown History Allergy/AdvReac Type Severity Reaction Status Date / Time amoxicillin Allergy Rash Verified 03/29/25 15:14 doxercalciferol (From Allergy Hives Verified 03/29/25 15:14 Hectorol) etodolac Allergy Rash Verified 03/29/25 15:14 Penicillins (PCN) Allergy Rash Verified 03/29/25 15:14 sulfamethoxazole (From Allergy Rash Verified 03/29/25 15:14 Bactrim) tramadol Allergy Rash Verified 03/29/25 15:14 trimethoprim (From Bactrim) Allergy Rash Verified 03/29/25 15:14 strawberry AdvReac Vomiting Verified 03/29/25 15:14 Family History Father Hypertension Kidney disease Mother Diabetes Family History no significant family his Surgical History Hx of kidney removal History of implantable cardiac defibrillator (ICD) (11/22/19) History of coronary artery stent placement (04/22/16) fistulogram History of thyroid surgery Surgical History no surgical history Social History household members: none Smoking Status: Never smoker alcohol intake: never substance use type: does not use diet: other caffeine: No what type of physical activity do you participate in: none seatbelt use: always do you feel safe at home: Yes ROS Constitutional Constitutional: Denies fever(s) or weight loss Eyes Eyes: Reports systems reviewed and no addt'l complaints, except as documented ENT HEENT: Reports systems reviewed and no addt'l complaints, except as documented Cardiovascular Cardiovascular: Denies chest pain at rest, chest pain with activity, dyspnea at rest, dyspnea on exertion, edema, palpitations or paroxysmal nocturnal dyspnea Respiratory/Chest Respiratory/Chest: Denies dyspnea on exertion, productive cough, shortness of breath at rest or shortness of breath with exertion Gastrointestinal Gastrointestinal: Denies change in bowel habits, nausea, vomiting or weight changes Genitourinary Genitourinary: Denies difficulty urinating Musculoskeletal Musculoskeletal: Denies joint stiffness or muscle weakness Integumentary Integumentary: Denies lesions Neurologic Neurologic: Denies dizziness or syncope Psychiatric Psychiatric: Denies anxiety Endocrine Endocrinology: Denies excessive sweating or fatigue Hematologic/Lymphatic Hematologic/Lymphatic: Denies anemia Allergic/Immunologic Allergic/Immunologic: Denies seasonal rhinorrhea Objective Data Vital Signs: Vital Signs Temp Pulse Resp BP Pulse Ox O2 Del Method O2 Flow Rate 98.0 F 88 23 H 163/62 H 100 Nasal Cannula 2 03/30/25 20:30 03/31/25 06:00 03/31/25 06:00 03/31/25 06:00 03/31/25 06:00 03/31/25 06:00 03/31/25 06:00 Oxygen Flow Rate (L/min) 2 Oxygen Delivery Method Nasal Cannula Weight: 178 lb 5.663 oz Body Mass Index (BMI) 32.5 Intake & Output: Intake and Output for Last 24 Hours 03/29/25 03/30/25 03/31/25 23:59 23:59 23:59 Intake Total 400 / 400 104 / 104 676.25 / 676.25 Output Total 0 / 0 Balance 400 / 400 104 / 104 676.25 / 676.25 Lab / Micro Data 03/31/25 06:08 03/31/25 06:08 Labs: Laboratory Results - last 24 hr 03/31/25 06:08: WBC 6.5, RBC 3.06 L, Hgb 9.1 L, Hct 27.7 L, MCV 90.5, MCH 29.7, MCHC 32.9, RDW Std Deviation 54.9 H, RDW Coeff of Tana 17.6 H, Plt Count 232, MPV9.1, Immature Gran % (Auto) 0.300, Neut % (Auto) 77.4 H, Lymph % (Auto) 11.1 L, [place] % (Auto) 8.0, Eos % (Auto) 2.9, Baso % (Auto) 0.3, Absolute Neuts (auto) 5.0, Absolute Lymphs (auto) 0.72 L, Nucleated RBC % 0, Sodium 130 L, Potassium 3.5, Chloride 89 L, Carbon Dioxide 23.0, Anion Gap 18 H, BUN 37 H, Creatinine 9.32 H*, Estim Creat Clear Calc 6.33 L*, Est GFR (MDRD) Non-Af 4 L, BUN/Creatinine Ratio 4.0 L, Glucose 156 H, Calcium 8.0, Triglycerides 166, Cholesterol 155, LDL Cholesterol, Calc 95, VLDL Cholesterol 33, HDL Cholesterol 27 L, Cholesterol/HDL Ratio 5.83 Rhythm Strip Rhythm Strip: Sinus Rhythm Rate: 62 Ectopy: None Cardiology Labs/Tests 03/31/25 06:08: WBC 6.5, RBC 3.06 L, Hgb 9.1 L, Hct 27.7 L, MCV 90.5, MCH 29.7, MCHC 32.9, Plt Count 232, MPV 9.1, Immature Gran % (Auto) 0.300, Neut % (Auto) 77.4 H, Lymph % (Auto) 11.1 L, [place] % (Auto) 8.0, Eos % (Auto) 2.9, Baso % (Auto) 0.3, Absolute Neuts (auto) 5.0, Nucleated RBC % 0, Sodium 130 L, Potassium 3.5, Chloride 89 L, Carbon Dioxide 23.0, Anion Gap 18 H, BUN 37 H, Creatinine 9.32 H*, Est GFR (MDRD) Non-Af 4 L, BUN/Creatinine Ratio 4.0 L, Glucose 156 H, Calcium 8.0, Triglycerides 166, Cholesterol 155, VLDL Cholesterol 33, HDL Cholesterol 27 L, Cholesterol/HDL Ratio 5.83 Rhythm: EKG: ECHO: Stress Test: Cardiac Cath: PCI: CT Surgery: Holter monitor: EPS: PPM: CXR: Chest CT Scan: Radiography Diagnostic Testing: Radiology Impression Echocardiogram 03/29/25 20:38 Interpretation Summary Normal LV size. Left ventricular systolic function is normal. The left ventricular ejection fraction is 65 %. Stage 2 diastolic dysfunction. Pulmonary artery systolic pressure is 40 mmHg. Ordering Physician: Saadia Valencia Performed By: Jane Arnold RDCS Abdomen X-Ray 03/30/25 16:05 IMPRESSION: Nonspecific findings. - Findings and recommendations discussed above in detail. Reading Location: [facility] Risk Score for UA/STEMI Assesmment (YES = 1) Risk Stratification Applicable: No 04/02/25 0635 <Electronically signed by Ernesto Garvin MD> Cosigner Signature (if applicable): CC: Dr. Trevor Vieyra MD~ Signed [facility] Work Phone: [phone]) 519-930609-21-2025 Progress note [facility] Medical Records Department [address] [place] [address] Progress Note - Hospitalist 03/31/25 0951 MR#: [id number] Acct: [id number] Name: SPENCER REDDING Rep #:[id number] : 1965 59 From: Armando paul MD PCP: Dr. Trevor Vieyra MD Status:ADM IN Location: ICU ICU02-1 Subjective Subjective She went into torsades last night and had to be transferred back to the ICU. Nochest pain or lightheadedness. Objective Data Objective Data Vital Signs: Vital Signs Temp Pulse Resp BP Pulse Ox O2 Del Method O2 Flow Rate 98.0 F 72 18 151/65 H 95 Room Air 2 03/30/25 20:30 03/31/25 09:00 03/31/25 09:00 03/31/25 09:00 03/31/25 09:00 03/31/25 09:00 03/31/25 06:00 Oxygen Flow Rate (L/min) 2 Oxygen Delivery Method Room Air Weight: 178 lb 5.663 oz Body Mass Index (BMI) 32.5 Intake & Output: Intake and Output for Last 24 Hours 03/30/25 03/31/25 04/01/25 03:59 03:59 03:59 Intake Total 400 / 400 564 / 564 386.88 / 386.88 Output Total 0 / 0 0 / 0 Balance 400 / 400 564 / 564 386.88 / 386.88 Lab / Micro Data 03/31/25 06:08 03/31/25 06:08 Labs: Laboratory Results - last 24 hr 03/31/25 06:08: WBC 6.5, RBC 3.06 L, Hgb 9.1 L, Hct 27.7 L, MCV 90.5, MCH 29.7, MCHC 32.9, RDW Std Deviation 54.9 H, RDW Coeff of Tana 17.6 H, Plt Count 232, MPV9.1, Immature Gran % (Auto) 0.300, Neut% (Auto) 77.4 H, Lymph % (Auto) 11.1 L, [place] % (Auto) 8.0, Eos % (Auto) 2.9, Baso % (Auto) 0.3, Absolute Neuts (auto) 5.0, Absolute Lymphs (auto) 0.72 L, Nucleated RBC % 0, Sodium 130 L, Potassium 3.5, Chloride 89 L, Carbon Dioxide 23.0, Anion Gap 18 H, BUN 37 H, Creatinine 9.32 H*, Estim Creat Clear Calc 6.33 L*, Est GFR (MDRD) Non-Af 4 L, BUN/Creatinine Ratio 4.0 L, Glucose 156 H, Calcium 8.0, Magnesium 2.8 H, Triglycerides 166, Cholesterol 155, LDL Cholesterol, Calc 95, VLDL Cholesterol 33, HDL Cholesterol 27 L, Cholesterol/HDL Ratio 5.83 Radiography Diagnostic Testing: Radiology Impression Echocardiogram 09/19/25 20:38 Interpretation Summary Normal LV size. Left ventricular systolic function is normal. The left ventricular ejection fraction is 65 %. Stage 2 diastolic dysfunction. Pulmonary artery systolic pressure is 40 mmHg. Ordering Physician: Saadia Valencia Performed By: Jane Arnold RDCS Abdomen X-Ray 03/30/25 16:05 IMPRESSION: Nonspecific findings. - Findings and recommendations discussed above in detail. Reading Location: [facility] Rhythm Strip Rhythm Strip: Sinus Rhythm Rate: 62 Ectopy: None Physical Exam Narrative General: Alert, Oriented x3, Cooperative, No apparent distress HEENT: Atraumatic, PERRLA, EOMI, Normocephalic Oral: Moist Mucosa Neck: Supple, No JVD Lungs: Diminished, Normal air movement, No rhonchi, No wheeze, No rales Cardiovascular: Regular rate, Regular Rhythm, Normal S1, Normal S2, No murmurs Abdomen: Soft, Non Tender, Non-Distended, No Hepato-splenomegaly Extremities: No edema, Capillary Refill Less than 3 Seconds Skin: No rashes, No breakdown Musculoskeletal: No Tenderness to Palpation of Joints or Extremities Neurological: No focal neurological deficits, Motor Exam 5/5 strength throughout, Sensory exam intact to light touch and pain Psych/Mental Status: Normal Affect, Appropriate Assessment & Plan Assessment/Plan (1) Chest pressure: PLAN: Plan #1. Hypertensive urgency: Patient blood pressure is high chronically systolic more than 200. At home patient is on telmisartan, carvedilol and digoxin but not on diuretic. Patient is started on chlorthalidone 12.5 mg daily. On IV hydralazine and labetalol as needed SBP more than 180 mmHg. Blood pressure still high 180/57, 172/56. and blood pressure is controlled about systolic 150spatient can be discharged and advised follow-up with director of player personnel for better control of blood pressure. 2. Atypical chest pain, localized: ACS ruled out. Twelve-lead EKG nondiagnostic of ACS. Serial troponins were mildly elevated 60-63 and 66. patient had nuclear stress test negative for acute ischemia. ACS ruled out. 2Decho shows EF 65% with stage II diastolic dysfunction, mild TR PASP 43. Overallsuggestive of chronic HFpEF #2. Polycystic kidney disease status post bilateral nephrectomy with ESRD: Patient with ongoing dialysis Tuesday, Tuesday, Tuesday,: Patient did not have any need for hemodialysis. Operations Coordinator consulted electrolytes in normal limit. BUN/creatinine high 27/7.27. Serum magnesium 2.0. 03/31/2025: Appreciate nephrology's assistance #3. Chronic normocytic anemia/AOCD: Admission hemoglobin 8.8, MCV 91.2, baseline hemoglobin ranges primarily 9-11, most recently previous 03/28/2025 hemoglobin 9.1, hemoglobin 8.8. On baseline #4. Orthostatic hypotension: Given patient recent increased blood pressures although labile especially dialysis will hold midodrine regimen at this time. #5. CAD: Status post previous PCI 2015, continue Coumadin, statin, Coreg, telmisartan regimen with hold parameters as needed. #6. PAF: continue patient home digoxin and Coumadin regimen, INR 2.3, therapeutic #7. History of torsades, recent as noted symptomatic VT burst: Status post previous AICD placement 2019, Will continue digoxin, coreg regimen. Interrogation attempted in the ED with noted AF with no firing. 03/31/2025: Transferred to the ICU overnight for symptomatic torsades, appreciatecardiology's assistance. Will maintain potassium greater than 4 and magnesium is 2.8 today #8. Hypothyroidism: On levothyroxine. TSH normal. #9. Obesity: Weight loss and lifestyle changes encouraged. #10. Anxiety and depression: Will continue patient home sertraline regimen. #11. Hyperlipidemia: Will continue patient on statin therapy, DVT: Coumadin Charges/Coding Visit Charges Inpatient E&M: 80003 Subs Hosp L2 03/31/25 0153 Cosigner Signature (if applicable): CC: ~ Signed [facility]09-21-2025 Consult note Author Ace Worley tr [facility] Note Date/Time March 31, 2025 2:43am [facility] Medical Records Department [address] [place] [address] Consultation - Nephrology 03/30/251956 MR#: [id number] Acct: [id number] Name: SPENCER REDDING Rep #:[id number] : 1965 59 From: Ace george MD PCP: Dr. Trevor Vieyra MD Status:ADM IN Location: ICU ICU02-1 Assessment & Plan Assessment/Plan (1) ESRD (end stage renal disease) on dialysis: (2) Benign essential hypertension: PLAN: Plan Assessment/Plan: Patient is a 59-year-old female with past history of ESRD secondary to ADPKD status post bilateral nephrectomies, hypertension, CAD, paroxysmal atrial fibrillation, ventricular tachycardia, hypothyroidism, hyperlipidemia, anemia, major depressive disorder, and generalized anxiety disorder. Patient presented to hospital on 03/29/2025 with chest pain, abdominal pain and dyspnea while she is getting dialysis on 03/29/2025. Patient was also found to have severe hypertension on presentation. Nephrology is asked to see the patient because of ESRD and for dialysis management. ESRD. Patient usually dialyzes on MWF schedule. Patient was dialyzed yesterday on 03/29/2025 prior to admission. There is no hyperkalemia, metabolic acidosis or significant volume overload today. There is no need for dialysis today. Will plan on dialyzing patient on 04/01/2025 on her usual schedule. Hypertension. BP has been as high as 219/69 mmHg when patient presented on 03/28/2025. BP has trended down since admission. Patient is currently on carvedilol 12.5 mg twice daily, losartan 100 mg daily, and chlorthalidone 12.5 mg daily. Chlorthalidone is unlikely to be effective for BP control in the setting of ESRD. Patient is also anephric from bilateral nephrectomy. I would recommend stopping chlorthalidone and starting calcium channel genesis such as amlodipine instead. HPI Consult Data Date of Consult: 03/31/25 HPI Narrative Reason for Consultation: ESRD. 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 Patient presented to hospital on 03/29/2025 with chest pain, abdominal pain and dyspnea while she is getting dialysis on 03/29/2025. Patient was also found to have severe hypertension on presentation. Nephrology is asked to see the patient because of ESRD and for dialysis management. Patient normally dialyzes on MWF schedule. She was dialyzed prior to admission. Patient denies chest pain, dyspnea, or nausea/vomiting. There has been no diarrhea. Patient does complain of cough which is productive for the past 2 weeks. [facility] Medical History Polycystic kidney disease Sudden cardiac Hypertriglyceridemia Hyperlipidemia History of torsades de pointes Atherosclerosis of coronary artery of [place] heart without angina pectoris Syncope and collapse Ventricular fibrillation Ischemic cardiomyopathy ESRD (end stage renal disease) on dialysis Nonsustained ventricular tachycardia History of recurrent miscarriages, not currently History of DVT (deep vein thrombosis) Congenital polycystic kidney disease History of allergic rhinitis Obesity Benign essential hypertension Home Medications ?Medication ?Instructions ?Recorded ?Last Taken ?Type sertraline 50 mg tablet 75 mg PO QHS depression 01/0803/15/23 History cholecalciferol (vitamin D3) 25 1,000 unit PO QDAY sup plement 10/24/17 03/15/23 History mcg (1,000 unit) tablet sevelamer carbonate 800 mg tablet 4,000 mg PO TID bind er 30 days #90 06/11/21 03/15/23 History tabs calcium carbonate (Tums) 400 mg PO BID 03/30/2203/15 History nitroglycerin 0.4 mg sublingual 0.4 mg sublingual Q5M PRN Chest 10/14/22 03/15/23 Rx tablet Pain #25 tabs ipratropium bromide 21 mcg (0.03 2 spray intranasal DA BHANU 05/10/23 Unknown History %) nasal spray atorvastatin 10 mg tablet 10 mg PO DAILY cholesterol # 30 tabs 10/11/24 Unknown Rx levothyroxine 25 mcg tablet 25 mcg PO QDAY thyroid 10/02 Unknown History vitamin B complex-vitamin C-folic 1 tab PO QDAY supple ment 10/11/24 Unknown History acid 0.8 mg tablet (Rani-Yahir) warfarin 2 mg tablet 9 mg PO SUTUTHSA blood thinn er 10/11/24 Unknown History warfarin 3 mg tablet 8 mg PO MOWEFR blood thinner 10/11/24 Unknown History zolpidem 10 mg tablet 10 mg PO QHS PRN insomnia Unknown History digoxin 125 mcg (0.125 mg) tablet 125 mcg PO QODAY hea rt #30 tabs 01/09/25 Unknown Rx carvedilol 6.25 mg tablet 6.25 mg PO BID blood pressur e 03/29/25 Unknown History telmisartan 40 mg tablet 40 mg PO BID blood pressure 03/29/25 Unknown History Allergy/AdvReac Type Severity Reaction Status Date / Time amoxicillin Allergy Rash Verified 03/29/25 15:14 doxercalciferol (From Allergy Hives Verified 03/29/25 15:14 Hectorol) etodolac Allergy Rash Verified 03/29/25 15:14 Penicillins (PCN) Allergy Rash Verified 03/29/25 15:14 sulfamethoxazole (From Allergy Rash Verified 03/29/25 15:14 Bactrim) tramadol Allergy Rash Verified 03/29/25 15:14 trimethoprim (From Bactrim) Allergy Rash Verified 03/29/25 15:14 strawberry AdvReac Vomiting Verified 03/29/25 15:14 Family History Father Hypertension Kidney disease Mother Diabetes Family History no significant family his Surgical History Hx of kidney removal History of implantable cardiac defibrillator (ICD) (11/22/19) History of coronary artery stent placement (04/22/16) fistulogram History of thyroid surgery Surgical History no surgical history Social History household members: none Smoking Status: Never smoker alcohol intake: never substance use type: does not use diet: other caffeine: No what type of physical activity do you participate in: none seatbelt use: always do you feel safe at home: Yes ROS ROS Narrative As per HPI, otherwise noncontributory. Physical Exam Narrative General: Alert and oriented x3, NAD. HEENT: Normocephalic, atraumatic. Mucous membrane moist without erythema. PERRLA, EOMI. Hearing is intact. Neck: Supple, no JVD. Trachea is midline. No thyromegaly or lymphadenopathy. Cardiovascular: Normal S1, S2. No rubs, murmurs, or gallops. Respiratory: Lungs are clear to auscultation bilaterally. No wheezing, rhonchi,or rales. Abdomen: Normal bowel sounds, soft, nontender, no guarding or rebound, no organomegaly. Extremities: No clubbing, cyanosis, or edema. Musculoskeletal: Full passive range of motion, no joint swelling. Psychiatric: Normal mood and affect. Skin: Warm and dry, no rash. Neurologic: Cranial nerve II to XII are grossly intact. No focal neurologic deficits. Lab / Micro Data 03/30/25 05:22 03/30/25 05:22 Labs: Laboratory Results - last 24 hr 03/29/25 16:20: ESR 6 03/29/25 18:13: C-React Prot Ext Range < 3.00 03/29/25 21:00: Troponin T Hi Sens 4Hr 66 H* 03/30/25 05:22: WBC 4.5, RBC 2.93 L, Hgb 8.6 L, Hct 26.9 L, MCV 91.8, MCH 29.4, MCHC 32.0, RDW Std Deviation 53.4 H, RDW Coeff of Tana 17.2 H, Plt Count 230, MPV10.1, Immature Gran % (Auto) 0.400, Neut % (Auto) 70.6 H, Lymph % (Auto) 14.4 L,[place] % (Auto) 7.3, Eos % (Auto) 6.4 H, Baso % (Auto) 0.9, Absolute Neuts (auto) 3.2, Absolute Lymphs (auto) 0.65 L, Nucleated RBC % 0, ESR 4, PT 26.2 H, INR 2.3, Sodium 136, Potassium 3.9, Chloride 95 L, Carbon Dioxide 27.1, Anion Gap 15, BUN 27 H, Creatinine 7.27 H, Estim Creat Clear Calc 8.07 L*, Est GFR (MDRD) Non-Af 6 L, BUN/Creatinine Ratio 3.6 L, Glucose 102 H, Calcium 8.2, Phosphorus 4.0, Magnesium 2.3 H, Total Bilirubin 0.54, AST 23, ALT 19, Alkaline [id number], C-React Prot Ext Range < 3.00, Total Protein 5.8 L, Albumin 3.6, Globulin 2.2, Albumin/Globulin Ratio 1.6, TSH 3.440 Rhythm Strip Rhythm Strip: Sinus Rhythm Rate: 62 Ectopy: None Imaging Radiology Impression Echocardiogram 03/29/25 20:38 Interpretation Summary Normal LV size. Left ventricular systolic function is normal. The left ventricular ejection fraction is 65 %. Stage 2 diastolic dysfunction. Pulmonary artery systolic pressure is 40 mmHg. Ordering Physician: Saadia Valencia Performed By: Jane Arnold RDCS Abdomen X-Ray 03/30/25 16:05 IMPRESSION: Nonspecific findings. - Findings and recommendations discussed above in detail. Reading Location: [facility] 03/31/25 0243 <Electronically signed by Ace Salgado MD> Cosigner Signature (if applicable): CC: Dr. Trevor Vieyra MD~ Signed [facility] Work Phone: [phone]) [phone] Consult note [facility] Medical Records Department [address] [place] [address] Consultation - Nephrology 03/30/251956 MR#: [id number] Acct: [id number] Name: SPENCER REDDING Rep #:[id number] : 1965 59 From: Ace george MD PCP: Dr. Trevor Vieyra MD Status:ADM IN Location: ICU ICU02-1 Assessment & Plan Assessment/Plan (1) ESRD (end stage renal disease) on dialysis: (2) Benign essential hypertension: PLAN: Plan Assessment/Plan: Patient is a 59-year-old female with past history of ESRD secondary to ADPKD status post bilateral nephrectomies, hypertension, CAD, paroxysmal atrial fibrillation, ventricular tachycardia, hypothyroidism, hyperlipidemia, anemia, major depressive disorder, and generalized anxiety disorder. Patient presented to hospital on 03/29/2025 with chest pain, abdominal pain and dyspnea while she isgetting dialysis on 03/29/2025. Patient was also found to have severe hypertension on presentation. Nephrology is asked to see the patient because of ESRD and for dialysis management. ESRD. Patient usually dialyzes on MWF schedule. Patient was dialyzed yesterday on 03/29/2025 prior to admission. There is no hyperkalemia, metabolic acidosis or significant volume overload today. There is no need for dialysis today. Will plan on dialyzing patient on 04/01/2025 on her usual schedule. Hypertension. BP has been as high as 219/69 mmHg when patient presented on 03/28/2025. BP has trended down since admission. Patient is currently on carvedilol 12.5 mg twice daily, losartan 100 mg daily, and chlorthalidone 12.5 mg daily. Chlorthalidone is unlikely to be effective for BP control in the setting of ESRD. Patient is also anephric from bilateral nephrectomy. I would recommend stopping chlorthalidone and starting calcium channel genesis such as amlodipine instead. HPI Consult Data Date of Consult: 03/31/25 HPI Narrative Reason for Consultation: ESRD. 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 Patient presented to hospital on 03/29/2025 with chest pain, abdominal pain and dyspnea while she isgetting dialysis on 03/29/2025. Patient was also found to have severe hypertension on presentation. Nephrology is asked to see the patient because of ESRD and for dialysis management. Patient normally dialyzes on MWF schedule. She was dialyzed prior to admission. Patient denies chest pain, dyspnea, or nausea/vomiting. There has been no diarrhea. Patient does complain of cough which is productive for the past 2 weeks. [facility] Medical History Polycystic kidney disease Sudden cardiac Hypertriglyceridemia Hyperlipidemia History of torsades de pointes Atherosclerosis of coronary artery of [place] heart without angina pectoris Syncope and collapse Ventricular fibrillation Ischemic cardiomyopathy ESRD (end stage renal disease) on dialysis Nonsustained ventricular tachycardia History of recurrent miscarriages, not currently History of DVT (deep vein thrombosis) Congenital polycystic kidney disease History of allergic rhinitis Obesity Benign essential hypertension Home Medications ?Medication ?Instructions ?Recorded ?Last Taken ?Type sertraline 50 mg tablet 75 mg PO QHS depression 01/0803/15/23 History cholecalciferol (vitamin D3) 25 1,000 unit PO QDAY sup plement 10/24/17 03/15/23 History mcg (1,000 unit) tablet sevelamer carbonate 800 mg tablet 4,000 mg PO TID bind er 30 days #90 06/11/21 03/15/23 History tabs calcium carbonate (Tums) 400 mg PO BID 03/30/2203/15 History nitroglycerin 0.4 mg sublingual 0.4 mg sublingual Q5M PRN Chest 10/14/22 03/15/23 Rx tablet Pain #25 tabs ipratropium bromide 21 mcg (0.03 2 spray intranasal DA BHANU 05/10/23 Unknown History %) nasal spray atorvastatin 10 mg tablet 10 mg PO DAILY cholesterol # 30 tabs 10/11/24 Unknown Rx levothyroxine 25 mcg tablet 25 mcg PO QDAY thyroid 10/02 Unknown History vitamin B complex-vitamin C-folic 1 tab PO QDAY supple ment 10/11/24 Unknown History acid 0.8 mg tablet (Rani-Yahir) warfarin 2 mg tablet 9 mg PO SUTUTHSA blood thinn er 10/11/24 Unknown History warfarin 3 mg tablet 8 mg PO MOWEFR blood thinner 10/11/24 Unknown History zolpidem 10 mg tablet 10 mg PO QHS PRN insomnia Unknown History digoxin 125 mcg (0.125 mg) tablet 125 mcg PO QODAY hea rt #30 tabs 01/09/25 Unknown Rx carvedilol 6.25 mg tablet 6.25 mg PO BID blood pressur e 03/29/25 Unknown History telmisartan 40 mg tablet 40 mg PO BID blood pressure 03/29/25 Unknown History Allergy/AdvReac Type Severity Reaction Status Date / Time amoxicillin Allergy Rash Verified 03/29/25 15:14 doxercalciferol (From Allergy Hives Verified 03/29/25 15:14 Hectorol) etodolac Allergy Rash Verified 03/29/25 15:14 Penicillins (PCN) Allergy Rash Verified 03/29/25 15:14 sulfamethoxazole (From Allergy Rash Verified 03/29/25 15:14 Bactrim) tramadol Allergy Rash Verified 03/29/25 15:14 trimethoprim (From Bactrim) Allergy Rash Verified 03/29/25 15:14 strawberry AdvReac Vomiting Verified 03/29/25 15:14 Family History Father Hypertension Kidney disease Mother Diabetes Family History no significant family his Surgical History Hx of kidney removal History of implantable cardiac defibrillator (ICD) (11/22/19) History of coronary artery stent placement (04/22/16) fistulogram History of thyroid surgery Surgical History no surgical history Social History household members: none Smoking Status: Never smoker alcohol intake: never substance use type: does not use diet: other caffeine: No what type of physical activity do you participate in: none seatbelt use: always do you feel safe at home: Yes ROS ROS Narrative As per HPI, otherwise noncontributory. Physical Exam Narrative General: Alert and oriented x3, NAD. HEENT: Normocephalic, atraumatic. Mucous membrane moist without erythema. PERRLA, EOMI. Hearing is intact. Neck: Supple, no JVD. Trachea is midline. No thyromegaly or lymphadenopathy. Cardiovascular: Normal S1, S2. No rubs, murmurs, or gallops. Respiratory: Lungs are clear to auscultation bilaterally. No wheezing, rhonchi,or rales. Abdomen: Normal bowel sounds, soft, nontender, no guarding or rebound, no organomegaly. Extremities: No clubbing, cyanosis, or edema. Musculoskeletal: Full passive range of motion, no joint swelling. Psychiatric: Normal mood and affect. Skin: Warm and dry, no rash. Neurologic: Cranial nerve II to XII are grossly intact. No focal neurologic deficits. Lab / Micro Data 03/30/25 05:22 03/30/25 05:22 Labs: Laboratory Results - last 24 hr 03/29/25 16:20: ESR 6 03/29/25 18:13: C-React Prot Ext Range < 3.00 03/29/25 21:00: Troponin T Hi Sens 4Hr 66 H* 03/30/25 05:22: WBC 4.5, RBC 2.93 L, Hgb 8.6 L, Hct 26.9 L, MCV 91.8, MCH 29.4, MCHC 32.0, RDW Std Deviation 53.4 H, RDW Coeff of Tana 17.2 H, Plt Count 230, MPV10.1, Immature Gran % (Auto) 0.400, Neut % (Auto) 70.6 H, Lymph % (Auto) 14.4 L,[place] % (Auto) 7.3, Eos % (Auto) 6.4 H, Baso % (Auto) 0.9, Absolute Neuts (auto) 3.2, Absolute Lymphs (auto) 0.65 L, Nucleated RBC % 0, ESR 4, PT 26.2 H, INR 2.3, Sodium 136, Potassium 3.9, Chloride 95 L, Carbon Dioxide 27.1, Anion Gap 15, BUN 27 H, Creatinine7.27 H, Estim Creat Clear Calc 8.07 L*, Est GFR (MDRD) Non-Af 6 L, BUN/Creatinine Ratio 3.6 L, Glucose 102 H, Calcium 8.2, Phosphorus 4.0, Magnesium 2.3 H, Total Bilirubin 0.54, AST 23, ALT 19, Alkaline [id number], C-React Prot Ext Range < 3.00, Total Protein 5.8 L, Albumin 3.6, Globulin 2.2,Albumin/Globulin Ratio 1.6, TSH 3.440 Rhythm Strip Rhythm Strip: Sinus Rhythm Rate: 62 Ectopy: None Imaging Radiology Impression Echocardiogram 03/29/25 20:38 Interpretation Summary Normal LV size. Left ventricular systolic function is normal. The left ventricular ejection fraction is 65 %. Stage 2 diastolic dysfunction. Pulmonary artery systolic pressure is 40 mmHg. Ordering Physician: Saadia Valencia Performed By: Jane Arnold RDCS Abdomen X-Ray 03/30/25 16:05 IMPRESSION: Nonspecific findings. - Findings and recommendations discussed above in detail. Reading Location: [facility] 03/31/25 0243 Cosigner Signature (if applicable): CC: Dr. Trevor Vieyra MD~ Signed [facility]09-20-2025 Progress note Author Saadia Valencia [facility] Note Date/Time March 30, 2025 8:03pm [facility] Medical Records Department [address] [place] [address] Progress Note - Hospitalist 03/30/252001 MR#: [id number] Acct: [id number] Name: SPENCER REDDING Rep #:[id number] : 1965 59 From: Saadia Valencia MD PCP: Dr. Trevor Vieyra MD Status:ADM ISAIAS Location: [place] [address] Hospitalist Note Patient with intermittent bursts torsades, symptomatic. Hospitalist team reviewed case with Cardiology Dr. Garvin, recommended transition to the ICU and will initiate Isoproterenol at 5 mcg/min. Will also continue mag infusion. Changed her status to full admission. Senior Grants Officer and PCU updated about plan of care. 03/30/252002 <Electronically signed by Saadia Valencia MD> Cosigner Signature (if applicable): CC: ~ Signed [facility] Work Phone: 1(936) 916-220109-20-2025 Evaluation note* Diagnosis Onset Date Resolution Status Admit Date Accelerated essential hypertension acute March 30, 2025 8:01pm Chest pressure acute March 30, 2025 8:01pm Benign essential hypertension chronic March 30, 2025 8:01pm ESRD (end stage renal disease) on dialysis chronic March 122024 8:01pm History of implantable cardiac defibrillator (ICD) November 22, 2019 chronic March 30, 2025 8:01pm Hyperlipidemia chronic March 30, 2025 8:01pm History of coronary artery stent placement April 22, 2016 resolved March 8:01pm Torsades de pointes resolved Septe 2024 8:01pm [facility] Work Phone: 1(821) 374-133809-20-2025 Evaluation note* Diagnosis Onset Date Resolution Status Admit Date Accelerated essential hypertension acute March 30, 2025 8:01pm Chest pressure acute March 30, 2025 8:01pm Benign essential hypertension chronic March 30, 2025 8:01pm ESRD (end stage renal disease) on dialysis chronic March 122024 8:01pm History of implantable cardiac defibrillator (ICD) November 22, 2019 chronic March 30, 2025 8:01pm Hyperlipidemia chronic March 30, 2025 8:01pm History of coronary artery stent placement April 22, 2016 resolved March 8:01pm Torsades de pointes resolved Sept2024 8:01pm History of DVT (deep vein thrombosis) acute April 16 9:56am Hypotension acute April 16, 2025 9:56am Paroxysmal atrial fibrillation acute April 16 9:56am ESRD (end stage renal disease) on dialysis chronic April 9:56am History of implantable cardiac defibrillator (ICD) November 22, 2019 chronic April 16 9:56am Hyperlipidemia chronic April 9:56am History of coronary artery stent placement April 22, 2016 resolved April 16, 2025 9:56am [facility] Work Phone: 1(554) 568-789509-20-2025 Progress note Author Sudarshan Garcia [facility] Note Date/Time March 30, 2025 7:48pm [facility] Medical Records Department [address] [place] [address] Progress Note - Hospitalist 03/30/251941 MR#: [id number] Acct: [id number] Name: SPENCER REDDING Rep #:[id number] : 1965 59 From: Sudarshan Martinez PCP: Dr. Trevor Vieyra MD Status:ADM ISAIAS Location: [place] [address] Hospitalist Note Patient had runs of NSVT about 7 to 8 weeks since afternoon. one strip looked like changing QRS axes therefore suspicious of torsade. Magnesium was 2.20, confirmed). Due to recurrent NSVT, twelve-lead EKG was done. QTc interval 543 ms. 12 lead EKG shows NSR 66b/m, pr 172 ms. She has PPM/ICD. Pacemaker interrogation was ordered but couldnt be done. Undercar Specialist consulted.Magnesium sulphate 2 gm IV one dose ordered for Prolonged QTc. Operations Coordinator is also consulted. Clinical Impression(s) from Imaging Studies Chest X-Ray 03/29/25 16:33 IMPRESSION: 1. Bibasilar atelectasis or pneumonia. 2. Cardiomegaly with mild congestion. 3. No significant change from the prior exam. 4. Bilateral pleural effusions. Reading Location: [facility] Chest CT 03/29/25 18:15 IMPRESSION: 1. Cardiomegaly with small pericardial effusion. 2. Scattered mediastinal lymph nodes some of which are upper limits of normal in size and are most likely reactive lymph nodes. Reading Location: [facility] Echocardiogram 03/29/25 20:38 Interpretation Summary Normal LV size. Left ventricular systolic function is normal. The left ventricular ejection fraction is 65 %. Stage 2 diastolic dysfunction. Pulmonary artery systolic pressure is 40 mmHg. Ordering Physician: Saadia Valencia Performed By: Jane Arnold RDCS Abdomen X-Ray 03/30/25 16:05 IMPRESSION: Nonspecific findings. - Findings and recommendations discussed above in detail. Reading Location: [facility] 03/30/251947 <Electronically signed by Sudarshan Garcia MD> Cosigner Signature (if applicable): CC: ~ Signed [facility] Work Phone: 1([phone]) 543-613409-20-2025 Progress note [facility] Medical Records Department [address] [place] [address] Progress Note - Hospitalist 03/30/252001 MR#: [id number] Acct: [id number] Name: SPENCER REDDING Rep #:[id number] : 1965 59 From: Saadia Valencia MD PCP: Dr. Trevor Vieyra MD Status:ADM ISAIAS Location: [place] [address] Hospitalist Note Patient with intermittent bursts torsades, symptomatic. Hospitalist team reviewed case with Cardiology Dr. Garvin, recommended transition to the ICU and will initiate Isoproterenol at 5 mcg/min. Will also continue mag infusion. Changed her status to full admission. Senior Grants Officer and PCU updated about plan of care. 03/30/252002 Cosigner Signature (if applicable): CC: ~ Signed [facility]09-20-2025 Progress note [facility] Medical Records Department [address] [place] [address] Progress Note - Hospitalist 03/30/251941 MR#: [id number] Acct: [id number] Name: SPENCER REDDING Rep #:[id number] : 1965 59 From: Sudarshan Martinez PCP: Dr. Trevor Vieyra MD Status:ADM ISAIAS Location: [place] [address] Hospitalist Note Patient had runs of NSVT about 7 to 8 weeks since afternoon. one strip looked like changing QRS axes therefore suspicious of torsade. Magnesium was 2.20, confirmed). Due to recurrent NSVT, twelve-lead EKG was done. QTc interval 543 ms. 12 lead EKG shows NSR 66b/m, pr 172 ms. She has PPM/ICD. Pacemaker interrogation was ordered but couldnt be done. Undercar Specialist consulted.Magnesium sulphate 2 gm IV one dose ordered for Prolonged QTc. Operations Coordinator is also consulted. Clinical Impression(s) from Imaging Studies Chest X-Ray 03/29/25 16:33 IMPRESSION: 1. Bibasilar atelectasis or pneumonia. 2. Cardiomegaly with mild congestion. 3. No significant change from the prior exam. 4. Bilateral pleural effusions. Reading Location: [facility] Chest CT 03/29/25 18:15 IMPRESSION: 1. Cardiomegaly with small pericardial effusion. 2. Scattered mediastinal lymph nodes some of which are upper limits of normal in size and are most likely reactive lymph nodes. Reading Location: [facility] Echocardiogram 03/29/25 20:38 Interpretation Summary Normal LV size. Left ventricular systolic function is normal. The left ventricular ejection fraction is 65 %. Stage 2 diastolic dysfunction. Pulmonary artery systolic pressure is 40 mmHg. Ordering Physician: Saadia Valencia Performed By: Jane Arnold RDCS Abdomen X-Ray 03/30/25 16:05 IMPRESSION: Nonspecific findings. - Findings and recommendations discussed above in detail. Reading Location: [facility] 03/30/251947 Cosigner Signature (if applicable): CC: ~ Signed [facility]09-20-2025 Radiology Diagnostic study note [facility] Imaging Services [address] [place], [place] [id number] Abd Inc Decub and/or Erect MR#: [id number] Acct: [id number] Name: SPENCER REDDING Rep #: [id number] : 1965 F 59 From: Marilu Keller MD PCP: Dr. Trevor Vieyra MD Status: ADM ISAIAS Study:Abd Inc Decub and/or Erect Date of Exam : 03/30/25 Exam# [id number] Ordering Dr: Ilir Garcia MD PROCEDURE: ABD INC DECUB AND/OR ERECT 03/30/2025 REASON FOR EXAM: CONSTIPATION TECHNIQUE: Procedure Code: RADABDMV Modality: DX Procedure: ABD INC DECUB AND/OR ERECT COMPARISON: None FINDINGS: Limitation: Free air and air-fluid levels can not be assessed on the views obtained. Gastrointestinal: Small amount of gas seen within the left upper quadrant, likely gastric and nonspecific. No asymmetric significant gaseous small bowel dilation to suggest a complete obstruction. No significant gaseous or fecal distention of colon to suggest significant constipation. Nonspecific gas is seen overlying the abdomen as well as the pelvis. If intraperitoneal inflammatory changes are suspected, consider CT with contrast. Soft tissue: Extensive vascular calcifications noted. Soft tissue abnormality is not well assessed by this technique. Lung bases: Bibasal opacities noted which may be due to trace amount of pleural fluid, atelectasis and/or scarring. Osseous: Bony degenerative changes noted. RAD/Abd Inc Decub and/or Erect IMPRESSION: Nonspecific findings. - Findings and recommendations discussed above in detail. Reading Location: [id number] CC: Dr. Trevor Vieyra MD; Dr. Sudarshan Garcia MD ~ Clearing Distribution Clerk: Signed [facility]09-20-2025 Progress note Author Sudarshan Garcia [facility] Note Date/Time March 30, 2025 2:54pm [facility] Medical Records Department [address] [place] [address] Progress Note - Hospitalist 03/30/25 0742 MR#: [id number] Acct: [id number] Name: SPENCER REDDING Rep #:[id number] : 1965 59 From: Sudarshan Martinez PCP: Dr. Trevor Vieyra MD Status:ADM ISAIAS Location: [place] [address] Reason for Visit Chief Complaint: Chest pain, Dyspnea, elevated BP. Objective Data Objective Data Vital Signs: Vital Signs Temp Pulse Resp BP Pulse Ox O2 Del Method 97.8 F 64 16 180/57 H 93 Room Air 03/30/25 04:20 03/30/25 04:20 03/30/25 04:20 03/30/25 04:20 03/30/25 07:29 03/30/25 07:29 Oxygen Delivery Method Room Air Weight: 176 lb 12.972 oz Body Mass Index (BMI) 32.3 Intake & Output: Intake and Output for Last 24 Hours 03/28/25 03/29/25 03/30/25 23:59 23:59 23:59 Intake Total 400 / 400 0 / 0 Balance 400 / 400 0 / 0 Lab / Micro Data 03/30/25 05:22 03/30/25 05:22 Labs: Laboratory Results - last 24 hr 03/29/25 16:03: Magnesium 2.0 03/29/25 16:20: WBC 4.2 L, RBC 2.96 L, Hgb 8.8 L, Hct 27.0 L, MCV 91.2, MCH 29.7, MCHC 32.6, RDW Std Deviation 52.8 H, RDW Coeff of Tana 16.9 H, Plt Count 220, MPV 9.2, Immature Gran % (Auto) 0.200, Neut % (Auto) 67.8, Lymph % (Auto) 15.8 L, [place] % (Auto) 8.0, Eos % (Auto) 7.5 H, Baso % (Auto) 0.7, Absolute Neuts(auto) 2.9, Absolute Lymphs (auto) 0.67 L, Nucleated RBC % 0, ESR 6, PT 24.1 H, INR 2.1, Sodium 139, Potassium 3.7, Chloride 94 L, Carbon Dioxide 30.5, Anion Gap 14, BUN 19, Creatinine 5.66 H, Estim Creat Clear Calc 10.56 L, Est GFR (MDRD) Non-Af 8 L, BUN/Creatinine Ratio 3.4 L, Glucose 101 H, Calcium 7.9, Troponin T High Sens 62 H* 03/29/25 18:13: Troponin T Hi Sens 2 Hr 63 H*, C-React Prot Ext Range < 3.00 03/29/25 21:00: Troponin T Hi Sens 4Hr 66 H* 03/30/25 05:22: ESR 4, Sodium 136, Potassium 3.9, Chloride 95 L, Carbon Dioxide 27.1, Anion Gap 15, BUN 27 H, Creatinine 7.27 H, Estim Creat Clear Calc 8.07 L*,Est GFR (MDRD) Non-Af 6 L, BUN/Creatinine Ratio 3.6 L, Glucose 102 H, Calcium 8.2, Phosphorus 4.0, Magnesium 2.3 H, Total Bilirubin 0.54, AST 23, ALT 19, Alkaline Phosphatase 47, C-React Prot Ext Range < 3.00, Total Protein 5.8 L, Albumin 3.6, Globulin 2.2, Albumin/Globulin Ratio 1.6, TSH 3.440 Radiography Diagnostic Testing: Radiology Impression Chest X-Ray 03/29/25 16:33 IMPRESSION: 1. Bibasilar atelectasis or pneumonia. 2. Cardiomegaly with mild congestion. 3. No significant change from the prior exam. 4. Bilateral pleural effusions. Reading Location: [facility] Chest CT 03/29/25 18:15 IMPRESSION: 1. Cardiomegaly with small pericardial effusion. 2. Scattered mediastinal lymph nodes some of which are upper limits of normal in size and are most likely reactive lymph nodes. Reading Location: [facility] Rhythm Strip Rhythm Strip: Sinus Rhythm Rate: 62 Ectopy: None Physical Exam Narrative Patient said she has high blood pressure at home systolic more than 200s. Yesterday in dialysis session, she felt chest pain more like a squeezing sensation/tightness over left chest without radiation. She was not feeling short of breath though she was put on oxygen. No syncope. She had a stress test in the morning. She has bilateral mastectomy in the past for polycystic kidney disease. She is on hemodialysis for 17 years. Loose bowel movement yesterday. Denies URI symptoms Physical exam General: Alert, Oriented x3, Cooperative HEENT: Atraumatic, PERRLA, EOMI, Normocephalic. Oral: No Gingival or Mucosal Lesions/ Ulcerations Neck: Supple, No JVD, Negative Carotid Bruits Chest wall/Lungs: Air entry diminished in bilateral lung bases. No crepitation/rhonchi Cardiovascular: Regular rate and rhythm, Normal S1,S2, No M/G/R Abdomen: Bowel Sounds Present, Soft, Non Tender, Non-Distended : Anuric. Status post bilateral nephrectomy. Extremities: No edema, Capillary Refill Less than 3 Seconds Skin: No rashes, No breakdown Musculoskeletal: No Tenderness to Palpation of Joints or Extremities Neurological: Cranial nerves II-XII grossly intact, DTR 2+/4. No acute focal neurological deficit. Psych/Mental Status: Normal Affect, Appropriate. Assessment & Plan Assessment/Plan (1) Chest pressure: PLAN: Plan The patient is a 59 y/o F who was admitted with left-sided chest pain and upper abdominal pain while on dialysis. She also noted 10 weeks of NSVT. She states her blood pressure at home is more than 200 systolic. #1. Hypertensive urgency: Patient blood pressure is high chronically systolic more than 200. At home patient is on telmisartan, carvedilol and digoxin but not on diuretic. Patient is started on chlorthalidone 12.5 mg daily. On IV hydralazine and labetalol as needed SBP more than 180 mmHg. Blood pressure still high 180/57, 172/56. and blood pressure is controlled about systolic 150spatient can be discharged and advised follow-up with director of player personnel for better control of blood pressure. 2. Atypical chest pain, localized: ACS ruled out. Twelve-lead EKG nondiagnostic of ACS. Serial troponins were mildly elevated 60-63 and 66. patient had nuclear stress test negative for acute ischemia. ACS ruled out. 2Decho shows EF 65% with stage II diastolic dysfunction, mild TR PASP 43. Overallsuggestive of chronic HFpEF #2. Polycystic kidney disease status post bilateral nephrectomy with ESRD: Patient with ongoing dialysis Tuesday, Tuesday, Tuesday,: Patient did not have any need for hemodialysis. Operations Coordinator consulted electrolytes in normal limit. BUN/creatinine high 27/7.27. Serum magnesium 2.0. #3. Chronic normocytic anemia/AOCD: Admission hemoglobin 8.8, MCV 91.2, baseline hemoglobin ranges primarily 9-11, most recently previous 03/28/2025 hemoglobin 9.1, hemoglobin 8.8. On baseline #4. Orthostatic hypotension: Given patient recent increased blood pressures although labile especially dialysis will hold midodrine regimen at this time. #5. CAD: Status post previous PCI 2015, continue Coumadin, statin, Coreg, telmisartan regimen with hold parameters as needed. #6. PAF: continue patient home digoxin and Coumadin regimen, INR 2.3, therapeutic #7. History of torsades, recent as noted symptomatic VT burst: Status post previous AICD placement 2019, Will continue digoxin, coreg regimen. Interrogation attempted in the ED with noted AF with no firing. #8. Hypothyroidism: On levothyroxine. TSH normal. #9. Obesity: Weight loss and lifestyle changes encouraged. #10. Anxiety and depression: Will continue patient home sertraline regimen. #11. Hyperlipidemia: Will continue patient on statin therapy, #12. DVT prophylaxis: Coumadin with INR trending. #13. CODE status: Patient NATALIIA is her daughter who is present and living will is currently in place. Discussed CODE status at length including difference between FULL code, DNR-CCA and DNR-CC status. Following discussions about the differences in these status, requested Full Code status. Laboratory Results 03/29/25 16:03: Magnesium 2.0 03/29/25 16:20: WBC 4.2 L, RBC 2.96 L, Hgb 8.8 L, Hct 27.0 L, MCV 91.2, MCH 29.7, MCHC 32.6, RDW Std Deviation 52.8 H, RDW Coeff of Tana 16.9 H, Plt Count 220, MPV 9.2, Immature Gran % (Auto) 0.200, Neut % (Auto) 67.8, Lymph % (Auto) 15.8 L, [place] % (Auto) 8.0, Eos % (Auto) 7.5 H, Baso % (Auto) 0.7, Absolute Neuts(auto) 2.9, Absolute Lymphs (auto) 0.67 L, Nucleated RBC % 0, ESR 6, PT 24.1 H, INR 2.1, Sodium 139, Potassium 3.7, Chloride 94 L, Carbon Dioxide 30.5, Anion Gap 14, BUN 19, Creatinine 5.66 H, Estim Creat Clear Calc 10.56 L, Est GFR (MDRD) Non-Af 8 L, BUN/Creatinine Ratio 3.4 L, Glucose 101 H, Calcium 7.9, Troponin T High Sens 62 H* 03/29/25 18:13: Troponin T Hi Sens 2 Hr 63 H*, C-React Prot Ext Range < 3.00 03/29/25 21:00: Troponin T Hi Sens 4Hr 66 H* 03/30/25 05:22: WBC 4.5, RBC 2.93 L, Hgb 8.6 L, Hct 26.9 L, MCV 91.8, MCH 29.4, MCHC 32.0, RDW Std Deviation 53.4 H, RDW Coeff of Tana 17.2 H, Plt Count 230, MPV10.1, Immature Gran % (Auto) 0.400, Neut % (Auto) 70.6 H, Lymph % (Auto) 14.4 L,[place] % (Auto) 7.3, Eos % (Auto) 6.4 H, Baso % (Auto) 0.9, Absolute Neuts (auto) 3.2, Absolute Lymphs (auto) 0.65 L, Nucleated RBC % 0, ESR 4, PT 26.2 H, INR 2.3, Sodium 136, Potassium 3.9, Chloride 95 L, Carbon Dioxide 27.1, Anion Gap 15, BUN 27 H, Creatinine 7.27 H, Estim Creat Clear Calc 8.07 L*, Est GFR (MDRD) Non-Af 6 L, BUN/Creatinine Ratio 3.6 L, Glucose 102 H, Calcium 8.2, Phosphorus 4.0, Magnesium 2.3 H, Total Bilirubin 0.54, AST 23, ALT 19, Alkaline Phosphatase 47, C-React Prot Ext Range < 3.00, Total Protein 5.8 L, Albumin 3.6, Globulin 2.2, Albumin/Globulin Ratio 1.6, TSH 3.440 Echo 03/30/2025 Interpretation Summary Normal LV size. Left ventricular systolic function is normal. The left ventricular ejection fraction is 65 %. Stage 2 diastolic dysfunction. Pulmonary artery systolic pressure is 40 mmHg. Charges/Coding Visit Charges Inpatient E&M: 45210 Subs Hosp L2 03/30/25 1450 <Electronically signed by Sudarshan Garcia MD> Cosigner Signature (if applicable): CC: ~ Signed ADDENDUM by Dr. Sudarshan Garcia MD on 03/30/25 at 1454 Addendum Patient also complained of nausea and loose bowel movement. Has chronic diarrhea. Home supportive treatment and Imodium. Patient also had 10 beats of NSVT. Pacemaker interrogation ordered as per family request. 03/30/25 145<Electronically signed by Sudarshan Garcia MD> Cosigner Signature (if applicable): cc: ~* Signed [facility] Work Phone: 1(390) 182-584009-20-2025 Progress note [facility] Medical Records Department [address] [place] [address] Progress Note - Hospitalist 03/30/25 0742 MR#: [id number] Acct: [id number] Name: SPENCER REDDING Rep #:[id number] : 1965 59 From: Sudarshan Martinez PCP: Dr. Trevor Vieyra MD Status:ADM ISAIAS Location: [place] [address] Reason for Visit Chief Complaint: Chest pain, Dyspnea, elevated BP. Objective Data Objective Data Vital Signs: Vital Signs Temp Pulse Resp BP Pulse Ox O2 Del Method 97.8 F 64 16 180/57 H 93 Room Air 03/30/25 04:20 03/30/25 04:20 03/30/25 04:20 03/30/25 04:20 03/30/25 07:29 03/30/25 07:29 Oxygen Delivery Method Room Air Weight: 176 lb 12.972 oz Body Mass Index (BMI) 32.3 Intake & Output: Intake and Output for Last 24 Hours 03/28/25 03/29/25 03/30/25 23:59 23:59 23:59 Intake Total 400 / 400 0 / 0 Balance 400 / 400 0 / 0 Lab / Micro Data 03/30/25 05:22 03/30/25 05:22 Labs: Laboratory Results - last 24 hr 03/29/25 16:03: Magnesium 2.0 03/29/25 16:20: WBC 4.2 L, RBC 2.96 L, Hgb 8.8 L, Hct 27.0 L, MCV 91.2, MCH 29.7, MCHC 32.6, RDW Std Deviation 52.8 H, RDW Coeff of Tana 16.9 H, Plt Count 220, MPV 9.2, Immature Gran % (Auto) 0.200, Neut % (Auto) 67.8, Lymph % (Auto) 15.8 L, [place] % (Auto) 8.0, Eos % (Auto) 7.5 H, Baso % (Auto) 0.7, Absolute Neuts(auto) 2.9, Absolute Lymphs (auto) 0.67 L, Nucleated RBC % 0, ESR 6, PT 24.1 H, INR 2.1, Sodium 139, Potassium 3.7, Chloride 94 L, Carbon Dioxide 30.5, Anion Gap 14, BUN 19, Creatinine 5.66 H, Estim Creat Clear Calc 10.56 L, Est GFR (MDRD) Non-Af 8 L, BUN/Creatinine Ratio 3.4 L, Glucose 101 H, Calcium 7.9, Troponin T High Sens 62 H* 03/29/25 18:13: Troponin T Hi Sens 2 Hr 63 H*, C-React Prot Ext Range < 3.00 03/29/25 21:00: Troponin T Hi Sens 4Hr 66 H* 03/30/25 05:22: ESR 4, Sodium 136, Potassium 3.9, Chloride 95 L, Carbon Dioxide 27.1, Anion Gap 15,BUN 27 H, Creatinine 7.27 H, Estim Creat Clear Calc 8.07 L*,Est GFR (MDRD) Non-Af 6 L, BUN/Creatinine Ratio 3.6 L, Glucose 102 H, Calcium 8.2, Phosphorus 4.0, Magnesium 2.3 H, Total Bilirubin 0.54, AST 23, ALT 19, Alkaline Phosphatase 47, C-React Prot Ext Range < 3.00, Total Protein 5.8 L, Albumin 3.6, Globulin 2.2, Albumin/Globulin Ratio 1.6, TSH 3.440 Radiography Diagnostic Testing: Radiology Impression Chest X-Ray 03/29/25 16:33 IMPRESSION: 1. Bibasilar atelectasis or pneumonia. 2. Cardiomegaly with mild congestion. 3. No significant change from the prior exam. 4. Bilateral pleural effusions. Reading Location: [facility] Chest CT 03/29/25 18:15 IMPRESSION: 1. Cardiomegaly with small pericardial effusion. 2. Scattered mediastinal lymph nodes some of which are upper limits of normal in size and are most likely reactive lymph nodes. Reading Location: [facility] Rhythm Strip Rhythm Strip: Sinus Rhythm Rate: 62 Ectopy: None Physical Exam Narrative Patient said she has high blood pressure at home systolic more than 200s. Yesterday in dialysis session, she felt chest pain more like a squeezing sensation/tightness over left chest without radiation. She was not feeling short of breath though she was put on oxygen. No syncope. She had a stress test in the morning. She has bilateral mastectomy in the past for polycystic kidney disease. She is onhemodialysis for 17 years. Loose bowel movement yesterday. Denies URI symptoms Physical exam General: Alert, Oriented x3, Cooperative HEENT: Atraumatic, PERRLA, EOMI, Normocephalic. Oral: No Gingival or Mucosal Lesions/ Ulcerations Neck: Supple, No JVD, Negative Carotid Bruits Chest wall/Lungs: Air entry diminished in bilateral lung bases. No crepitation/rhonchi Cardiovascular: Regular rate and rhythm, Normal S1,S2, No M/G/R Abdomen: Bowel Sounds Present, Soft, Non Tender, Non-Distended : Anuric. Status post bilateral nephrectomy. Extremities: No edema, Capillary Refill Less than 3 Seconds Skin: No rashes, No breakdown Musculoskeletal: No Tenderness to Palpation of Joints or Extremities Neurological: Cranial nerves II-XII grossly intact, DTR 2+/4. No acute focal neurological deficit. Psych/Mental Status: Normal Affect, Appropriate. Assessment & Plan Assessment/Plan (1) Chest pressure: PLAN: Plan The patient is a 59 y/o F who was admitted with left-sided chest pain and upper abdominal pain while on dialysis. She also noted 10 weeks of NSVT. She states her blood pressure at home is more than 200 systolic. #1. Hypertensive urgency: Patient blood pressure is high chronically systolic more than 200. At home patient is on telmisartan, carvedilol and digoxin but not on diuretic. Patient is started on chlorthalidone 12.5 mg daily. On IV hydralazine and labetalol as needed SBP more than 180 mmHg. Blood pressure still high 180/57, 172/56. and blood pressure is controlled about systolic 150spatient can be discharged and advised follow-up with director of player personnel for better control of blood pressure. 2. Atypical chest pain, localized: ACS ruled out. Twelve-lead EKG nondiagnostic of ACS. Serial troponins were mildly elevated 60-63 and 66. patient had nuclear stress test negative for acute ischemia. ACS ruled out. 2Decho shows EF 65% with stage II diastolic dysfunction, mild TR PASP 43. Overallsuggestive of chronic HFpEF #2. Polycystic kidney disease status post bilateral nephrectomy with ESRD: Patient with ongoing dialysis [place], Tuesday, Tuesday,: Patient did not have any need for hemodialysis. Operations Coordinator consulted electrolytes in normal limit. BUN/creatinine high 27/7.27. Serum magnesium 2.0. #3. Chronic normocytic anemia/AOCD: Admission hemoglobin 8.8, MCV 91.2, baseline hemoglobin ranges primarily 9-11, most recently previous 03/28/2025 hemoglobin 9.1, hemoglobin 8.8. On baseline #4. Orthostatic hypotension: Given patient recent increased blood pressures although labile especially dialysis will hold midodrine regimen at this time. #5. CAD: Status post previous PCI 2015, continue Coumadin, statin, Coreg, telmisartan regimen with hold parameters as needed. #6. PAF: continue patient home digoxin and Coumadin regimen, INR 2.3, therapeutic #7. History of torsades, recent as noted symptomatic VT burst: Status post previous AICD placement 2019, Will continue digoxin, coreg regimen. Interrogation attempted in the ED with noted AF with no firing. #8. Hypothyroidism: On levothyroxine. TSH normal. #9. Obesity: Weight loss and lifestyle changes encouraged. #10. Anxiety and depression: Will continue patient home sertraline regimen. #11. Hyperlipidemia: Will continue patient on statin therapy, #12. DVT prophylaxis: Coumadin with INR trending. #13. CODE status: Patient NATALIIA is her daughter who is present and living will is currently in place. Discussed CODE status at length including difference between FULL code, DNR-CCA and DNR-CC status. Following discussions about the differences in these status, requested Full Code status. Laboratory Results 03/29/25 16:03: Magnesium 2.0 03/29/25 16:20: WBC 4.2 L, RBC 2.96 L, Hgb 8.8 L, Hct 27.0 L, MCV 91.2, MCH 29.7, MCHC 32.6, RDW Std Deviation 52.8 H, RDW Coeff of Tana 16.9 H, Plt Count 220, MPV 9.2, Immature Gran % (Auto) 0.200, Neut % (Auto) 67.8, Lymph % (Auto) 15.8 L, [place] % (Auto) 8.0, Eos % (Auto) 7.5 H, Baso % (Auto) 0.7, Absolute Neuts(auto) 2.9, Absolute Lymphs (auto) 0.67 L, Nucleated RBC % 0, ESR 6, PT 24.1 H, INR 2.1, Sodium 139, Potassium 3.7, Chloride 94 L, Carbon Dioxide 30.5, Anion Gap 14, BUN 19, Creatinine 5.66 H, Estim Creat Clear Calc 10.56 L, Est GFR (MDRD) Non-Af 8 L, BUN/Creatinine Ratio 3.4 L, Glucose 101 H, Calcium 7.9, Troponin T High Sens 62 H* 03/29/25 18:13: Troponin T Hi Sens 2 Hr 63 H*, C-React Prot Ext Range < 3.00 03/29/25 21:00: Troponin T Hi Sens 4Hr 66 H* 03/30/25 05:22: WBC 4.5, RBC 2.93 L, Hgb 8.6 L, Hct 26.9 L, MCV 91.8, MCH 29.4, MCHC 32.0, RDW Std Deviation 53.4 H, RDW Coeff of Tana 17.2 H, Plt Count 230, MPV10.1, Immature Gran % (Auto) 0.400, Neut % (Auto) 70.6 H, Lymph % (Auto) 14.4 L,[place] % (Auto) 7.3, Eos % (Auto) 6.4 H, Baso % (Auto) 0.9, Absolute Neuts (auto) 3.2, Absolute Lymphs (auto) 0.65 L, Nucleated RBC % 0, ESR 4, PT 26.2 H, INR 2.3, Sodium 136, Potassium 3.9, Chloride 95 L, Carbon Dioxide 27.1, Anion Gap 15, BUN 27 H, Creatinine 7.27 H, Estim Creat Clear Calc 8.07 L*, Est GFR (MDRD) Non-Af 6 L, BUN/Creatinine Ratio 3.6 L, Glucose 102 H, Calcium 8.2, Phosphorus 4.0, Magnesium 2.3 H, Total Bilirubin 0.54, AST 23, ALT 19, Alkaline Phosphatase 47, C-React Prot Ext Range < 3.00, Total Protein 5.8 L, Albumin 3.6, Globulin 2.2, A lbumin/Globulin Ratio 1.6, TSH 3.440 Echo 03/30/2025 Interpretation Summary Normal LV size. Left ventricular systolic function is normal. The left ventricular ejection fraction is 65 %. Stage 2 diastolic dysfunction. Pulmonary artery systolic pressure is 40 mmHg. Charges/Coding Visit Charges Inpatient E&M: 41120 Subs Hosp L2 03/30/25 1450 Cosigner Signature (if applicable): CC: ~ Signed ADDENDUM by Dr. Sudarshan Garcia MD on 03/30/25 at 1454 Addendum Patient also complained of nausea and loose bowel movement. Has chronic diarrhea. Home supportive treatment and Imodium. Patient also had 10 beats of NSVT. Pacemaker interrogation ordered as per family request. 03/30/25 1454 Cosigner Signature (if applicable): cc: ~* Signed [facility]09-20-2025 Discharge summary Author Padmini [facility] Note Date/Time March 30, 2025 1:08am [facility] Medical Records Department [address] [place] [address] Emergency Department Summary 03/29/25 MR#: [id number] Acct: [id number] Name: SPENCER REDDING Rep #:[id number] : 1965 59 From: Padmini Rice PCP: Dr. Trevor Vieyra MD Status:ADM ISAIAS Location: [address] History of Present Illness Chief Complaint: Chest Pain Informant: patient Narrative Narrative: Patient is a 59 year old female with history of end-stage renal disease secondary to bilateral nephrectomy for polycystic kidney disease on hemodialysis( M,W,F), coronary artery disease, history of torsades de point and ICD placement in 2019 as well as atrial fibrillation and history of DVT (on Coumadin). She is presenting today with recurrent episode of chest pain. Patient states that over the past few weeks has not been feeling right and they have been trying to manage her blood pressure. She has had blood pressures [id number]. She is recently started on telmisartan, digoxin and carvedilol. She was seen in the ER yesterday for chest pressure as well and ultimately discharged home. She notes while at dialysis today her blood pressure was elevated and shestarted having chest pain. She was given nitroglycerin as well as clonidine 0.1mg. She had dialysis for 2 hours and 10 minutes no sent to the ER for further evaluation. She states she has also been having ongoing cough. She states she feels short of breath and has to cough to clear it. She notes that she is actually under her dry weight. She denies any fever or chills. The pressure dio the left side of her chest. While in the ER patient did also have an episode of a burning chest pain that felt different than her other chest pains. Nursing states this correlated for about a 10 beat run of V. tach. [facility] Medical History Polycystic kidney disease Sudden cardiac Hypertriglyceridemia Hyperlipidemia History of torsades de pointes Atherosclerosis of coronary artery of [place] heart without angina pectoris Syncope and collapse Ventricular fibrillation Ischemic cardiomyopathy ESRD (end stage renal disease) on dialysis Nonsustained ventricular tachycardia History of recurrent miscarriages, not currently History of DVT (deep vein thrombosis) Congenital polycystic kidney disease History of allergic rhinitis Obesity Benign essential hypertension Home Medications ?Medication ?Instructions ?Recorded ?Last Taken ?Type sertraline 50 mg tablet 75 mg PO QHS depression 01/0803/15/23 History cholecalciferol (vitamin D3) 25 1,000 unit PO QDAY 03/15/23 History mcg (1,000 unit) tablet sevelamer carbonate 800 mg tablet 4,000 mg PO TID 30 d ays #90 tabs 06/11/21 03/15/23 History calcium carbonate (Tums) 400 mg PO BID 03/30/2203/15 History nitroglycerin 0.4 mg sublingual 0.4 mg sublingual Q5M PRN Chest 10/14/22 03/15/23 Rx tablet Pain #25 tabs ipratropium bromide 21 mcg (0.03 2 spray intranasal DA BHANU 05/10/23 Unknown History %) nasal spray atorvastatin 10 mg tablet 10 mg PO DAILY #30 tabs 10/02 Unknown Rx levothyroxine 25 mcg tablet 25 mcg PO QDAY 10/11/24 Un known History vitamin B complex-vitamin C-folic 1 tab PO QDAY Unknown History acid 0.8 mg tablet (Rani-Yahir) warfarin 2 mg tablet 9 mg PO SUTUTHSA 10/11/24 Un known History warfarin 3 mg tablet 8 mg PO MOWEFR 10/11/24 Unkn own History zolpidem 10 mg tablet 10 mg PO QHS PRN insomnia Unknown History digoxin 125 mcg (0.125 mg) tablet 125 mcg PO QODAY #30 tabs 01/09/25 Unknown Rx carvedilol 6.25 mg tablet 6.25 mg PO BID blood pressur e 03/29/25 Unknown History telmisartan 40 mg tablet 40 mg PO BID blood pressure 03/29/25 Unknown History Allergy/AdvReac Type Severity Reaction Status Date / Time amoxicillin Allergy Rash Verified 03/29/25 15:14 doxercalciferol (From Allergy Hives Verified 03/29/25 15:14 Hectorol) etodolac Allergy Rash Verified 03/29/25 15:14 Penicillins (PCN) Allergy Rash Verified 03/29/25 15:14 sulfamethoxazole (From Allergy Rash Verified 03/29/25 15:14 Bactrim) tramadol Allergy Rash Verified 03/29/25 15:14 trimethoprim (From Bactrim) Allergy Rash Verified 03/29/25 15:14 strawberry AdvReac Vomiting Verified 03/29/25 15:14 Family History Father Hypertension Kidney disease Mother Diabetes Family History no significant family his Surgical History Hx of kidney removal History of implantable cardiac defibrillator (ICD) (11/22/19) History of coronary artery stent placement (04/22/16) fistulogram History of thyroid surgery Surgical History no surgical history Social History household members: none Smoking Status: Never smoker alcohol intake: never substance use type: does not use diet: other caffeine: No what type of physical activity do you participate in: none seatbelt use: always do you feel safe at home: Yes ROS ROS ED Constitutional Constitutional ED: Reports other Details: Fatigue, increased sleeping ; Denies fever(s) ENT ENT ED: Denies rhinorrhea Cardiovascular Cardiovascular: Reports chest pain Respiratory/Chest Respiratory/Chest: Reports cough and dyspnea Gastrointestinal Gastrointestinal: Denies nausea or vomiting Musculoskeletal Musculoskeletal: Denies arthralgias or myalgias Integumentary Denies rash Neurologic Neurologic: Reports weakness Hematologic/Lymphatic Hematologic/Lymphatic: Reports easy bleeding, easy bruising and other Details: On Coumadin EXAM Physical Exam Const Vital Signs: 03/29/25 15:14 03/29/25 16:13 03/29/25 17:00 Temperature 98 F Temperature Source Oral Pulse Rate 64 61 65 Respiratory Rate 16 16 Blood Pressure 174/61 H 172/61 H 196/66 H Blood Pressure Mean 98 98 109 Pulse Ox 94 93 94 Oxygen Delivery Method Room Air Room Air Room Air 03/29/25 18:00 03/29/25 19:00 03/29/25 19:29 Temperature 98.4 F Temperature Source Pulse Rate 65 65 65 Respiratory Rate 20 H 20 H 20 H Blood Pressure 181/58 H 193/62 H 197/65 H Blood Pressure Mean 99 105 109 Pulse Ox 95 96 95 Oxygen Delivery Method Room Air Room Air Positive well nourished and well developed General Appearance ED: well developed and NAD; Negative for pallor HEENT Reports moist mucous membranes Neck supple and no JVD Chest Wall inspection of chest normal Resp normal respiratory effort Resp Narrative: Mildly diminished breath sounds at the bases Cardio regular rate, regular rhythm and no murmurs Cardio Narrative: AV fistula in the left upper extremity with palpable thrill GI normal to inspection, nondistended, normoactive bowel sounds and soft to palpation Extremity normal to inspection General Extremety ED: Negative for edema General Extremity: Negative for edema Neuro oriented x3 Sensorium / Orientation: awake Motor Exam: general weakness Psych mental status grossly normal Skin no rashes or lesions noted and no wounds General Skin Exam: Negative for pallor Heart Score History: Moderately Suspicious ECG: Nonspecific Repolarization Age: >45 - <65 years Risk Factors: >/= 3 Risk Factors or History of CAD Troponin: >1 - <3 Normal Limit Score: 6 MDM MDM MDM Narrative Medical decision making narrative: Patient evaluated for recurrent chest pressure while at dialysis today. Not been feeling well recently. 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 Differential includes not limited to hypertensive emergency, ACS, arrhythmia, symptomatic anemia, pneumonia, pneumothorax, pleural effusion, electrolyte derangements. While in the ER patient is also have a run of V. tach however she does have an ICD and it does not fire. Unfortunately it was witnessed by nurse staff on telemetry but not captured for the records. Patient's CBC shows anemia with a hemoglobin 8.8 which is consistent with her baseline. She has a mild leukopenia at a white blood cell count of 4.2 which isnonspecific. BMP consistent with end-stage renal disease with elevated creatinine however she otherwise does not have a significant Jennifer abnormalities. INR is therapeutic at 2.1. Low suspicion for PE as a cause of her symptoms. High since he troponin is elevated at 62 and 63 however this appears to be her baseline and consistent with where she was yesterday. Chest x-ray viewed by myself as well as radiology shows bibasilar atelectasis orpneumonia and cardiomegaly with mild congestion. CT of the chest is added on for further evaluation and to see if there is truly an underlying pneumonia versus this is more cardiac in nature. CT of the chest shows cardiomegaly with small pericardial effusion but no signs of pneumonia. Will hold off on any antibiotic treatment at this time so she has not been having any fevers. Patient was given hydralazine for hypertension in the emergency room. Given herrecurrent chest pain, cardiac risk factors and elevated blood pressure in emergency room will admit for further cardiac workup to try to determine the cause for her pain and also obtain better blood pressure control. Patient agreeable with this. Case discussed with hospitalist, Dr. Valencia for admission. Lab Data Attestation: I reviewed the patient's lab results. Labs: Laboratory Results - last 24 hr 03/29/25 03/29/25 03/29/25 16:03 16:20 18:13 WBC 4.2 L RBC 2.96 L Hgb 8.8 L Hct 27.0 L MCV 91.2 MCH 29.7 MCHC 32.6 RDW Std Deviation 52.8 H RDW Coeff of Tana 16.9 H Plt Count 220 MPV 9.2 Immature Gran % (Auto) 0.200 Neut % (Auto) 67.8 Lymph % (Auto) 15.8 L [place] % (Auto) 8.0 Eos % (Auto) 7.5 H Baso % (Auto) 0.7 Absolute Neuts (auto) 2.9 Absolute Lymphs (auto) 0.67 L Nucleated RBC % 0 ESR 6 PT 24.1 H INR 2.1 Sodium 139 Potassium 3.7 Chloride 94 L Carbon Dioxide 30.5 Anion Gap 14 BUN 19 Creatinine 5.66 H Estim Creat Clear Calc 10.56 L Est GFR (MDRD) Non-Af 8 L BUN/Creatinine Ratio 3.4 L Glucose 101 H Calcium 7.9 Magnesium 2.0 Troponin T High Sens 62 H* Troponin T Hi Sens 2 Hr 63 H* C-React Prot Ext Range < 3.00 Radiography Diagnostic Testing: Clinical Impression(s) from Imaging Studies Chest X-Ray 03/29/25 16:33 IMPRESSION: 1. Bibasilar atelectasis or pneumonia. 2. Cardiomegaly with mild congestion. 3. No significant change from the prior exam. 4. Bilateral pleural effusions. Reading Location: [facility] Chest CT 03/29/25 18:15 IMPRESSION: 1. Cardiomegaly with small pericardial effusion. 2. Scattered mediastinal lymph nodes some of which are upper limits of normal in size and are most likely reactive lymph nodes. Reading Location: [facility] Rhythm Strip Rhythm Strip: Sinus Rhythm Rate: 62 Ectopy: None EKG Initial EKG: Attestation: I personally reviewed and interpreted this EKG as follows: Interpretation: Sinus Rhythm Comments: Normal sinus rhythm rate of 62 bpm Normal axis Nonspecific ST segment changes Mildly prolonged QTc No significant change prior to prior EKG Management Discussion w/another healthcare provider: Hospitalist Discharge Plan Dx/Rx/DC Orders Clinical Impression: Accelerated essential hypertension, Chest pressure, History of implantable cardiac defibrillator (ICD), ESRD (end stage renal disease) on dialysis Disposition Disposition: Acute Care [facility] Discharge Date/Time: 03/29/25 20:34 What to do if you have Problems For any increased pain, shortness of breath, bleeding, nausea or vomiting, chestpain, or any unexpected problems, contact your Primary Care Provider. Call [facility] ([phone]) or report to the closest Emergency Room. Call 911 if necessary. 03/30/25 010 <Electronically signed by Padmini Wen DO> Cosigner Signature (if applicable): CC: Dr. Trevor Vieyra MD ~ Signed [facility] Work Phone: 1(335) 456-474509-20-2025 Progress note Author Michelle Bee [facility] Note Date/Time March 29, 2025 11:20pm [facility] Medical Records Department [address] [place] [address] Progress Note - Hospitalist 03/29/252302 MR#: [id number] Acct: [id number] Name: SPENCER REDDING Rep #:[id number] : 1965 59 From: Michelle Frye PCP: Dr. Trevor Vieyra MD Status:ADM ISAIAS Location: [place] [address] Hospitalist Note C/o burning in her chest, repeat EKG performed at 2226-No STEMI, no change except for continued prolongation of QT/QTc lengths, 502/537ms up to 510/558ms, when compared to EKG from ER time at 2013. Noted EKG from .. with QT/QTc of472/512ms. Reviewed current medication list for QT prolonging medications: Zolpidem was not continued from home med list; stopped ondansetron, prochlorperazine, and sertraline. Pharmacy asked to review medlist as well, theyconcur wu actions taken. 03/29/252319 <Electronically signed by Michelle DEE> Cosigner Signature (if applicable): CC: ~ Signed [facility] Work Phone: 1(930) 778-944809-20-2025 Discharge summary [facility] Medical Records Department [address] [place] [address] Emergency Department Summary 03/29/25 MR#: [id number] Acct: [id number] Name: SPENCER REDDING Rep #:[id number] : 1965 59 From: Padmini Rice PCP: Dr. Trevor Vieyra MD Status:ADM ISAIAS Location: [place] [address] HPI History of Present Illness Chief Complaint: Chest Pain Informant: patient Narrative Narrative: Patient is a 59 year old female with history of end-stage renal disease secondary to bilateral nephrectomy for polycystic kidney disease on hemodialysis( M,W,F), coronary artery disease, history of torsades de point and ICD placement in 2019 as well as atrial fibrillation and history of DVT (on Coum abdulkadir). She is presenting today with recurrent episode of chest pain. Patient states that over the past few weeks has not been feeling right and they have been trying to manage her blood pressure. [place] had blood pressures [id number]. She is recently started on telmisartan, digoxin and carvedilol. She was seen in the ER yesterday for chest pressure as well and ultimately discharged home. She notes while at dialysis today her blood pressure was elevated and shestarted having chest pain. She was given nitroglycerin as well as clonidine 0.1mg. She had dialysis for 2 hours and 10 minutes no sent tothe ER for further evaluation. She states she has also been having ongoing cough. She states she feels short of breath and has to cough to clear it. She notes that she is actually under her dry weight. She denies any fever or chills. The pressure dio the left side of her chest. While in the ER patient did also have an episode of a burning chest pain that felt different than her other chest pains. Nursing states this correlated for about a 10 beat run of V. tach. [facility] Medical History Polycystic kidney disease Sudden cardiac Hypertriglyceridemia Hyperlipidemia History of torsades de pointes Atherosclerosis of coronary artery of [place] heart without angina pectoris Syncope and collapse Ventricular fibrillation Ischemic cardiomyopathy ESRD (end stage renal disease) on dialysis Nonsustained ventricular tachycardia History of recurrent miscarriages, not currently History of DVT (deep vein thrombosis) Congenital polycystic kidney disease History of allergic rhinitis Obesity Benign essential hypertension Home Medications ?Medication ?Instructions ?Recorded ?Last Taken ?Type sertraline 50 mg tablet 75 mg PO QHS depression 01/0803/15/23 History cholecalciferol (vitamin D3) 25 1,000 unit PO QDAY 03/15/23 History mcg (1,000 unit) tablet sevelamer carbonate 800 mg tablet 4,000 mg PO TID 30 d ays #90 tabs 06/11/21 03/15/23 History calcium carbonate (Tums) 400 mg PO BID 03/30/2203/15 History nitroglycerin 0.4 mg sublingual 0.4 mg sublingual Q5M PRN Chest 10/14/22 03/15/23 Rx tablet Pain #25 tabs ipratropium bromide 21 mcg (0.03 2 spray intranasal DA BHANU 05/10/23 Unknown History %) nasal spray atorvastatin 10 mg tablet 10 mg PO DAILY #30 tabs 10/02 Unknown Rx levothyroxine 25 mcg tablet 25 mcg PO QDAY 10/11/24 Un known History vitamin B complex-vitamin C-folic 1 tab PO QDAY Unknown History acid 0.8 mg tablet (Rani-Yahir) warfarin 2 mg tablet 9 mg PO SUTUTHSA 10/11/24 Un known History warfarin 3 mg tablet 8 mg PO MOWEFR 10/11/24 Unkn own History zolpidem 10 mg tablet 10 mg PO QHS PRN insomnia Unknown History digoxin 125 mcg (0.125 mg) tablet 125 mcg PO QODAY #30 tabs 01/09/25 Unknown Rx carvedilol 6.25 mg tablet 6.25 mg PO BID blood pressur e 03/29/25 Unknown History telmisartan 40 mg tablet 40 mg PO BID blood pressure 03/29/25 Unknown History Allergy/AdvReac Type Severity Reaction Status Date / Time amoxicillin Allergy Rash Verified 03/29/25 15:14 doxercalciferol (From Allergy Hives Verified 03/29/25 15:14 Hectorol) etodolac Allergy Rash Verified 03/29/25 15:14 Penicillins (PCN) Allergy Rash Verified 03/29/25 15:14 sulfamethoxazole (From Allergy Rash Verified 03/29/25 15:14 Bactrim) tramadol Allergy Rash Verified 03/29/25 15:14 trimethoprim (From Bactrim) Allergy Rash Verified 03/29/25 15:14 strawberry AdvReac Vomiting Verified 03/29/25 15:14 Family History Father Hypertension Kidney disease Mother Diabetes Family History no significant family his Surgical History Hx of kidney removal History of implantable cardiac defibrillator (ICD) (11/22/19) History of coronary artery stent placement (04/22/16) fistulogram History of thyroid surgery Surgical History no surgical history Social History household members: none Smoking Status: Never smoker alcohol intake: never substance use type: does not use diet: other caffeine: No what type of physical activity do you participate in: none seatbelt use: always do you feel safe at home: Yes ROS ROS ED Constitutional Constitutional ED: Reports other Details: Fatigue, increased sleeping ; Denies fever(s) ENT ENT ED: Denies rhinorrhea Cardiovascular Cardiovascular: Reports chest pain Respiratory/Chest Respiratory/Chest: Reports cough and dyspnea Gastrointestinal Gastrointestinal: Denies nausea or vomiting Musculoskeletal Musculoskeletal: Denies arthralgias or myalgias Integumentary Denies rash Neurologic Neurologic: Reports weakness Hematologic/Lymphatic Hematologic/Lymphatic: Reports easy bleeding, easy bruising and other Details: On Coumadin EXAM Physical Exam Const Vital Signs: 03/29/25 15:14 03/29/25 16:13 03/29/25 17:00 Temperature 98 F Temperature Source Oral Pulse Rate 64 61 65 Respiratory Rate 16 16 Blood Pressure 174/61 H 172/61 H 196/66 H Blood Pressure Mean 98 98 109 Pulse Ox 94 93 94 Oxygen Delivery Method Room Air Room Air Room Air 03/29/25 18:00 03/29/25 19:00 03/29/25 19:29 Temperature 98.4 F Temperature Source Pulse Rate 65 65 65 Respiratory Rate 20 H 20 H 20 H Blood Pressure 181/58 H 193/62 H 197/65 H Blood Pressure Mean 99 105 109 Pulse Ox 95 96 95 Oxygen Delivery Method Room Air Room Air Positive well nourished and well developed General Appearance ED: well developed and NAD; Negative for pallor HEENT Reports moist mucous membranes Neck supple and no JVD Chest Wall inspection of chest normal Resp normal respiratory effort Resp Narrative: Mildly diminished breath sounds at the bases Cardio regular rate, regular rhythm and no murmurs Cardio Narrative: AV fistula in the left upper extremity with palpable thrill GI normal to inspection, nondistended, normoactive bowel sounds and soft to palpation Extremity normal to inspection General Extremety ED: Negative for edema General Extremity: Negative for edema Neuro oriented x3 Sensorium / Orientation: awake Motor Exam: general weakness Psych mental status grossly normal Skin no rashes or lesions noted and no wounds General Skin Exam: Negative for pallor Heart Score History: Moderately Suspicious ECG: Nonspecific Repolarization Age: >45 - <65 years Risk Factors: >/= 3 Risk Factors or History of CAD Troponin: >1 - <3 Normal Limit Score: 6 MDM MDM MDM Narrative Medical decision making narrative: Patient evaluated for recurrent chest pressure while at dialysis today. Not been feeling well recently. 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 Differential includes not limited to hypertensive emergency, ACS, arrhythmia, symptomatic anemia, pneumonia, pneumothorax, pleural effusion, electrolyte derangements. While in the ER patient is also have a run of V. tach however she does have an ICD and it does not fire. Unfortunately it was witnessed by nurse staff on telemetry but not captured for the records. Patient's CBC shows anemia with a hemoglobin 8.8 which is consistent with her baseline. She has a mild leukopenia at a white blood cell count of 4.2 which isnonspecific. BMP consistent with end-stagerenal disease with elevated creatinine however she otherwise does not have a significant Robbins abn ormalities. INR is therapeutic at 2.1. Low suspicion for PE as a cause of her symptoms. High since he troponin is elevated at 62 and 63 however this appears to be her baseline and consistent with where she was yesterday. Chest x-ray viewed by myself as well as radiology shows bibasilar atelectasis orpneumonia and cardiomegaly with mild congestion. CT of the chest is added on for further evaluation and to see if thereis truly an underlying pneumonia versus this is more cardiac in nature. CT of the chest shows cardiomegaly with small pericardial effusion but no signs of pneumonia. Will hold off on any antibiotic treatment at this time so she has not been having any fevers. Patient was given hydralazine for hypertension in the emergency room. Given herrecurrent chest pain, cardiac risk factors and elevated blood pressure in emergency room will admit for further cardiac workup to try to determine the cause for her pain and also obtain better blood pressure control. Patient agreeable with this. Case discussed with hospitalist, Dr. Valencia for admission. Lab Data Attestation: I reviewed the patient's lab results. Labs: Laboratory Results - last 24 hr 03/29/25 03/29/25 03/29/25 16:03 16:20 18:13 WBC 4.2 L RBC 2.96 L Hgb 8.8 L Hct 27.0 L MCV 91.2 MCH 29.7 MCHC 32.6 RDW Std Deviation 52.8 H RDW Coeff of Tana 16.9 H Plt Count 220 MPV 9.2 Immature Gran % (Auto) 0.200 Neut % (Auto) 67.8 Lymph % (Auto) 15.8 L [place] % (Auto) 8.0 Eos % (Auto) 7.5 H Baso % (Auto) 0.7 Absolute Neuts (auto) 2.9 Absolute Lymphs (auto) 0.67 L Nucleated RBC % 0 ESR 6 PT 24.1 H INR 2.1 Sodium 139 Potassium 3.7 Chloride 94 L Carbon Dioxide 30.5 Anion Gap 14 BUN 19 Creatinine 5.66 H Estim Creat Clear Calc 10.56 L Est GFR (MDRD) Non-Af 8 L BUN/Creatinine Ratio 3.4 L Glucose 101 H Calcium 7.9 Magnesium 2.0 Troponin T High Sens 62 H* Troponin T Hi Sens 2 Hr 63 H* C-React Prot Ext Range < 3.00 Radiography Diagnostic Testing: Clinical Impression(s) from Imaging Studies Chest X-Ray 03/29/25 16:33 IMPRESSION: 1. Bibasilar atelectasis or pneumonia. 2. Cardiomegaly with mild congestion. 3. No significant change from the prior exam. 4. Bilateral pleural effusions. Reading Location: [facility] Chest CT 03/29/25 18:15 IMPRESSION: 1. Cardiomegaly with small pericardial effusion. 2. Scattered mediastinal lymph nodes some of which are upper limits of normal in size and are most likely reactive lymph nodes. Reading Location: [facility] Rhythm Strip Rhythm Strip: Sinus Rhythm Rate: 62 Ectopy: None EKG Initial EKG: Attestation: I personally reviewed and interpreted this EKG as follows: Interpretation: Sinus Rhythm Comments: Normal sinus rhythm rate of 62 bpm Normal axis Nonspecific ST segment changes Mildly prolonged QTc No significant change prior to prior EKG Management Discussion w/another healthcare provider: Hospitalist Discharge Plan Dx/Rx/DC Orders Clinical Impression: Accelerated essential hypertension, Chest pressure, History of implantable cardiac defibrillator (ICD), ESRD (end stage renal disease) on dialysis Disposition Disposition: Acute Care Hospital [facility] Discharge Date/Time: 03/29/25 20:34 What to do if you have Problems For any increased pain, shortness of breath, bleeding, nausea or vomiting, chestpain, or any unexpected problems, contact your Primary Care Provider. Call [facility] ([phone]) or report tothe closest Emergency Room. Call 911 if necessary. 03/30/25 0108 Cosigner Signature (if applicable): CC: Dr. Trevor Vieyra MD ~ Signed [facility]09-19-2025 Progress note [facility] Medical Records Department [address] [place] [address] Progress Note - Hospitalist 03/29/252302 MR#: [id number] Acct: [id number] Name: SPENCER REDDING Rep #:[id number] : 1965 59 From: Michelle Frye PCP: Dr. Trevor Vieyra MD Status:ADM ISAIAS Location: [place] [address] Hospitalist Note C/o burning in her chest, repeat EKG performed at 2226-No STEMI, no change except for continued prolongation of QT/QTc lengths, 502/537ms up to 510/558ms, when compared to EKG from ER time at 2013. Noted EKG from 03.28.25 with QT/QTc of472/512ms. Reviewed current medication list for QT prolonging medications: Zolpidem was not continued from home med list; stopped ondansetron, prochlorperazine, andsertraline. Pharmacy asked to review medlist as well, [facility]. 03/29/25 2320 Cosigner Signature (if applicable): CC: ~ Signed [facility]09-19-2025 History and physical note Author Saadia Valencia [facility] Note Date/Time March 29, 2025 8:42pm [facility] Medical Records Department [address] [place] [address] H&P Exam - Hospitalist 03/29/251947 MR#: [id number] Acct: [id number] Name: SPENCER REDDING Rep #:[id number] : 1965 59 From: Saadia Valencia MD PCP: Dr. Trevor Vieyra MD Status:ADM ISAIAS Location: [place] [address] HPI - General General Date of Admission: 03/29/25 Date of Service: 03/29/25 Chief Complaint: Chest pain, Dyspnea, elevated BP. HPI Narrative The patient is a 59 y/o F w/ PMHx: Polycystic kidney disease status post bilateral nephrectomies ESRD on HD M/W/F, Chronic normocytic anemia/AOCD, Orthostatic hypotension, CAD, PAF, history torsades/VT, Hypothyroidism, Obesity,HTN, HLD, Anxiety and Depression, recent ED evaluation 03/28/2025 secondary to chest pressure occurring during dialysis and intermittently in the last several weeks lasting approximately an hour in the substernal region described as mild to moderate usually occurring dialysis with associated nausea as well as dyspneabut no emesis nor any diaphoresis with no radiation of the chest discomfort withthe ED evaluation at that time with indeterminate cardiac enzymes felt stable likely secondary to underlying renal disease status post bilateral nephrectomy with blood pressure labile with plan for discharge to home with follow-up with nephrology and cardiology as they are working on a regimen to improve her blood pressure control with also unremarkable chest x-ray and EKG with no acute evidence of ischemia now presenting again to the [facility] ED on 03/29/2025 with ongoing dyspnea in addition to a nonproductive cough reportingthat she is actually at her dry weight with persistent pressure now on the left side of her chest with also an episode of burning sensation in the ED with at that time incidentally noted 10 beat run of V. tach with elevated persistent blood pressures despite recently initiated regimen of telmisartan, digoxin and Coreg prompting repeat ED evaluation. Workup in the ED included T98, heart rate64, BP 174/61, respiratory rate 16, 94% on room air with most recent repeat vitals T98.4, heart rate 65, BP 197/65, respiratory rate 20, 95% room air, CBC with WBC 4.2, hemoglobin 8.8, MCV 91.2, platelet 220 with lymphopenia, coags with INR 2.1, BMP with chloride 94, BUN/creatinine 19/5.66, GFR 8, glucose 101, magnesium 2.0, troponin initial 62 with repeat delta 2-hour pending, chest x-raywith basilar atelectasis, cardiomegaly with mild congestion, bilateral pleural effusions with no significant change since prior evaluation, CT chest with cardiomegaly with small pericardial effusion, scattered mediastinal lymph nodes likely reactive, EKG with SR with mildly prolonged QTC, T wave morphology changeof unclear significance with no acute evidence of ischemia similar to prior. Inthe ED patient ministered hydralazine 10 mg IV x 1. PFSH Medical History Polycystic kidney disease Sudden cardiac Hypertriglyceridemia Hyperlipidemia History of torsades de pointes Atherosclerosis of coronary artery of [place] heart without angina pectoris Syncope and collapse Ventricular fibrillation Ischemic cardiomyopathy ESRD (end stage renal disease) on dialysis Nonsustained ventricular tachycardia History of recurrent miscarriages, not currently History of DVT (deep vein thrombosis) Congenital polycystic kidney disease History of allergic rhinitis Obesity Benign essential hypertension Home Medications ?Medication ?Instructions ?Recorded ?Last Taken ?Type sertraline 50 mg tablet 75 mg PO QHS depression 01/0803/15/23 History cholecalciferol (vitamin D3) 25 1,000 unit PO QDAY 03/15/23 History mcg (1,000 unit) tablet sevelamer carbonate 800 mg tablet 4,000 mg PO TID 30 d ays #90 tabs 06/11/21 03/15/23 History calcium carbonate (Tums) 400 mg PO BID 03/30/2203/15 History nitroglycerin 0.4 mg sublingual 0.4 mg sublingual Q5M PRN Chest 10/14/22 03/15/23 Rx tablet Pain #25 tabs ipratropium bromide 21 mcg (0.03 2 spray intranasal DA BHANU 05/10/23 Unknown History %) nasal spray atorvastatin 10 mg tablet 10 mg PO DAILY #30 tabs 10/02 Unknown Rx levothyroxine 25 mcg tablet 25 mcg PO QDAY 10/11/24 Un known History vitamin B complex-vitamin C-folic 1 tab PO QDAY Unknown History acid 0.8 mg tablet (Rani-Yahir) warfarin 2 mg tablet 9 mg PO SUTUTHSA 10/11/24 Un known History warfarin 3 mg tablet 8 mg PO MOWEFR 10/11/24 Unkn own History zolpidem 10 mg tablet 10 mg PO QHS PRN insomnia Unknown History digoxin 125 mcg (0.125 mg) tablet 125 mcg PO QODAY #30 tabs 01/09/25 Unknown Rx carvedilol 6.25 mg tablet 6.25 mg PO BID blood pressur e 03/29/25 Unknown History telmisartan 40 mg tablet 40 mg PO BID blood pressure 03/29/25 Unknown History Allergy/AdvReac Type Severity Reaction Status Date / Time amoxicillin Allergy Rash Verified 03/29/25 15:14 doxercalciferol (From Allergy Hives Verified 03/29/25 15:14 Hectorol) etodolac Allergy Rash Verified 03/29/25 15:14 Penicillins (PCN) Allergy Rash Verified 03/29/25 15:14 sulfamethoxazole (From Allergy Rash Verified 03/29/25 15:14 Bactrim) tramadol Allergy Rash Verified 03/29/25 15:14 trimethoprim (From Bactrim) Allergy Rash Verified 03/29/25 15:14 strawberry AdvReac Vomiting Verified 03/29/25 15:14 Family History Father Hypertension Kidney disease Mother Diabetes Family History no significant family his Surgical History Hx of kidney removal History of implantable cardiac defibrillator (ICD) (11/22/19) History of coronary artery stent placement (04/22/16) fistulogram History of thyroid surgery Surgical History no surgical history Social History household members: none Smoking Status: Never smoker alcohol intake: never substance use type: does not use diet: other caffeine: No what type of physical activity do you participate in: none seatbelt use: always do you feel safe at home: Yes ROS ROS Narrative Admission Review of Systems: CONSTITUTIONAL: No weight loss, fever, chills, + weakness or fatigue. HEENT: Eyes: No visual loss, blurred vision, double vision or yellow sclerae. Ears, Nose, Throat: No hearing loss, sneezing, congestion, runny nose or sore throat. SKIN: No rash or itching, lesions, wounds. CARDIOVASCULAR: + Chest pain/burning sensation. No specific palpitations, edema, orthopnea, syncopal events. RESPIRATORY: + Dyspnea with nonproductive cough. No wheezing, hemoptysis. GASTROINTESTINAL: No anorexia, nausea, vomiting or diarrhea, abdominal pain, melena, BRBPR. GENITOURINARY: No dysuria, frequency, urgency or retention. NEUROLOGICAL: No headache, dizziness, syncope, paralysis, ataxia, numbness or tingling in the extremities, focal weakness, change in bowel or bladder control,seizure. MUSCULOSKELETAL: No muscle, back pain, joint pain or stiffness. HEMATOLOGIC: + Chronic anemia, easy bleeding/bruising. LYMPHATICS: No enlarged nodes. No history of splenectomy. PSYCHIATRIC: + History of anxiety and depression. ENDOCRINOLOGIC: No reports of sweating, cold or heat intolerance. No polyuria orpolydipsia. ALLERGIES: + History of hives, allergic rhinitis. Vital Signs Vital Signs Vital Signs: 03/29/25 15:14 03/29/25 16:13 03/29/25 17:00 Temperature 98 F Temperature Source Oral Pulse Rate 64 61 65 Respiratory Rate 16 16 Blood Pressure 174/61 H 172/61 H 196/66 H Blood Pressure Mean 98 98 109 Pulse Ox 94 93 94 Oxygen Delivery Method Room Air Room Air Room Air 03/29/25 18:00 03/29/25 19:00 03/29/25 19:29 Temperature 98.4 F Temperature Source Pulse Rate 65 65 65 Respiratory Rate 20 H 20 H 20 H Blood Pressure 181/58 H 193/62 H 197/65 H Blood Pressure Mean 99 105 109 Pulse Ox 95 96 95 Oxygen Delivery Method Room Air Room Air Weight Weight: 182 lb 15.739 oz Body Mass Index (BMI) 33.5 Physical Exam Narrative Physical Examination: General: Awake, alert, oriented x 3 and cooperative, seated upright in the bed, notes currently mild generalized headache there is no current chest pain. Skin: Normal color, normal turgor, no icterus, no cyanosis except occasional stage ecchymoses, abrasions. HEENT: AT/NC, EOMI, PERRLA, mildly dry MM, no carotid bruits or JVD noted. Lungs: Mildly diminished, greater bases, poor effort, no rales, ronchi or wheezing, no pain elicited with palpation of the anterior chest. Heart: Regular rate and rhythm; no gallop, rub audible. Abdomen: Soft, obese, NTTP, ND, mildly hyperactive BS, no appreciated HSM. Extremities: No cyanosis, no clubbing, mild ankle not markedly pitting edema. Neurological: Patient awake, alert, oriented as noted, cognitive function intact; pupils equally reactive to light and accommodation, cranial nerves grossly normal, moving all 4 extremities, no focal deficits, strength mildly to moderately globally decreased. Psychiatric: Affect appears fatigued, no acute evidence of depressive or anxietyfeelings, does have a history of insomnia. Results Lab / Micro Data 03/29/25 16:20 03/29/25 16:20 Labs: Laboratory Results - last 24 hr 03/29/25 16:03: Magnesium 2.0 03/29/25 16:20: WBC 4.2 L, RBC 2.96 L, Hgb 8.8 L, Hct 27.0 L, MCV 91.2, MCH 29.7, MCHC 32.6, RDW Std Deviation 52.8 H, RDW Coeff of Tana 16.9 H, Plt Count 220, MPV 9.2, Immature Gran % (Auto) 0.200, Neut % (Auto) 67.8, Lymph % (Auto) 15.8 L, [place] % (Auto) 8.0, Eos % (Auto) 7.5 H, Baso % (Auto) 0.7, Absolute Neuts(auto) 2.9, Absolute Lymphs (auto) 0.67 L, Nucleated RBC % 0, PT 24.1 H, INR 2.1, Sodium 139, Potassium 3.7, Chloride 94 L, Carbon Dioxide 30.5, Anion Gap 14, BUN 19, Creatinine 5.66 H, Estim Creat Clear Calc 10.56 L, Est GFR (MDRD) Non-Af 8 L, BUN/Creatinine Ratio 3.4 L, Glucose 101 H, Calcium 7.9, Troponin T High Sens 62 H* Imaging Radiology Impression Chest X-Ray 03/29/25 16:33 IMPRESSION: 1. Bibasilar atelectasis or pneumonia. 2. Cardiomegaly with mild congestion. 3. No significant change from the prior exam. 4. Bilateral pleural effusions. Reading Location: [facility] Chest CT 03/29/25 18:15 IMPRESSION: 1. Cardiomegaly with small pericardial effusion. 2. Scattered mediastinal lymph nodes some of which are upper limits of normal in size and are most likely reactive lymph nodes. Reading Location: [facility] Assessment & Plan Assessment/Plan (1) Chest pressure: PLAN: Plan The patient is a 59 y/o F w/ PMHx: Polycystic kidney disease status post bilateral nephrectomies ESRD on HD M/W/F, Chronic normocytic anemia/AOCD, Orthostatic hypotension, CAD, PAF, history torsades/VT, Hypothyroidism, Obesity,HTN, HLD, Anxiety and Depression, recent ED evaluation 03/28/2025 secondary to chest pressure occurring during dialysis and intermittently in the last several weeks lasting approximately an hour in the substernal region described as mild to moderate usually occurring dialysis with associated nausea as well as dyspneabut no emesis nor any diaphoresis with no radiation of the chest discomfort withthe ED evaluation at that time with indeterminate cardiac enzymes felt stable likely secondary to underlying renal disease status post bilateral nephrectomy with blood pressure labile with plan for discharge to home with follow-up with nephrology and cardiology as they are working on a regimen to improve her blood pressure control with also unremarkable chest x-ray and EKG with no acute evidence of ischemia now presenting again to the [facility] ED on 03/29/2025 with ongoing dyspnea in addition to a nonproductive cough reportingthat she is actually at her dry weight with persistent pressure now on the left side of her chest with also an episode of burning sensation in the ED with at that time incidentally noted 10 beat run of V. tach with elevated persistent blood pressures despite recently initiated regimen of telmisartan, digoxin and Coreg prompting repeat ED evaluation. #1. Concern Accelerated Hypertension/Urgency (suspect enzymes indeterminant secondary to her renal disease) with associated Chest Pain with incidentally noted small pericardial effusion: EKG with SR with mildly prolonged QTC, T wave morphology change of unclear significance with no acute evidence of ischemia similar to prior; however, patient did have burst of VT in the ED suspected to be symptomatic, CXR w/ with bibasilar atelectasis, cardiomegaly with mild congestion, bilateral pleural effusions, initial trop 62 with repeat delta pending. Will admit to PCU, place on a monitored bed to assure no acute myocardial infarction with serial cardiac enzymes and EKGs. Magnesium level perED normal. Will monitor EKGs for QTc and adjust/alter/avoid medications as needed. Will obtain repeat echocardiogram given noted pericardial effusion to be cautious. ESR and CRP requested for trending purposes although would expect some elevation given underlying renal disease. If repeat serial cardiac enzymesremain similar will plan a.m. cardiac stress testing. ECHO requested given effusion noted. NG TD will be initiated, morphine. Interrogation attempted in the ED with noted AF with no firing. #2. Polycystic kidney disease status post bilateral nephrectomy with ESRD: Patient with ongoing dialysis Tuesday, Tuesday, Tuesday, encourage continued follow-up with nephrology given issues with blood pressure and low threshold to consult given they have been working with cardiology directly for an improved hypertensive regimen. Will continue patient home several [place] regimen. #3. Chronic normocytic anemia/AOCD: Admission hemoglobin 8.8, MCV 91.2, baseline hemoglobin ranges primarily 9-11, most recently previous 03/28/2025 hemoglobin 9.1, will continue to trend. #4. Orthostatic hypotension: Given patient recent increased blood pressures although labile especially dialysis will hold midodrine regimen at this time. #5. CAD: Status post previous PCI 2015, will continue Coumadin, statin, Coreg, telmisartan regimen with hold parameters as needed. #6. PAF: Will continue patient home digoxin and Coumadin regimen, not on any other rate or rhythm agent of note. #7. History of torsades, recent as noted symptomatic VT burst: Status post previous AICD placement 2019, Will continue digoxin, coreg regimen. Interrogation attempted in the ED with noted AF with no firing. #8. Hypothyroidism: Will continue patient levothyroxine regimen, TSH requested #9. Obesity: Weight loss and lifestyle changes encouraged. #10. Anxiety and depression: Will continue patient home sertraline regimen. #11. Hyperlipidemia: Will continue patient on statin therapy, FLP in AM. #12. DVT prophylaxis: Coumadin with INR trending. #13. CODE status: Patient NATALIIA is her daughter who is present and living will is currently in place. Discussed CODE status at length including difference between FULL code, DNR-CCA and DNR-CC status. Following discussions about the differences in these status, requested Full Code status. Advanced Care Planning Face to Face Time: 16 minutes. Charges/Coding Visit Charges Inpatient E&M: 91618 Init Hosp L3 Procedures Hospitalists Procedures: 06077 Advncd Care Plan 30 Min 03/29/252041 <Electronically signed by Saadia Valencia MD> Cosigner Signature (if applicable): CC: Dr. Saadia Valencia MD; Dr. Trevor Vieyra MD~ Signed [facility] Work Phone: 1(158) 152-460909-19-2025 History and physical note [facility] Medical Records Department [address] [place] [id number] H&P Exam - Hospitalist 03/29/251947 MR#: [id number] Acct: [id number] Name: SPENCER REDDING Rep #:[id number] : 1965 59 From: Sadaia Valencia MD PCP: Dr. Trevor Vieyra MD Status:ADM ISAIAS Location: [place] [address] HPI - General General Date of Admission: 03/29/25 Date of Service: 03/29/25 Chief Complaint: Chest pain, Dyspnea, elevated BP. HPI Narrative The patient is a 59 y/o F w/ PMHx: Polycystic kidney disease status post bilateral nephrectomies ESRD on HD M/W/F, Chronic normocytic anemia/AOCD, Orthostatic hypotension, CAD, PAF, history torsades/VT, Hypothyroidism, Obesity,HTN, HLD, Anxiety and Depression, recent ED evaluation 03/28/2025 secondary to chest pressure occurring during dialysis and intermittently in the last several weeks lasting approximately an hour in the substernal region described as mild to moderate usually occurring dialysis with associated nausea as well as dyspneabut no emesis nor any diaphoresis with no radiation of the chest discomfort withthe ED evaluation at that time with indeterminate cardiac enzymes felt stable likely secondary to underlying renal disease status post bilateral nephrectomy with blood pressure labile with plan for discharge to home with follow-up with nephrology and cardiology as they are working on a regimen to improve her blood pressure control with also unremarkable chest x-ray and EKG with no acute evidence of ischemia now presenting again to the [facility] ED on 03/29/2025 with ongoing dyspnea in addition to a nonproductive cough reportingthat she is actually at her dry weight with persistent pressure now on the left side of her chest with also an episode of burning sensation in the ED with at that time incidentally noted 10 beat run of V. tach with elevated persistent blood pressures despite recently initiated regimen of telmisartan, digoxin and Coreg prompting repeat ED evaluation. Workup in the ED included T98, heart rate64, BP 174/61, respiratory rate 16, 94% on room air with most recent repeat vitals T98.4, heart rate 65, BP 197/65, respiratory rate 20, 95% room air, CBC with WBC 4.2, hemoglobin 8.8, MCV 91.2, platelet 220 with lymphopenia, coags with INR 2.1, BMP with chloride 94, BUN/creatinine 19/5.66, GFR 8, glucose 101, magnesium 2.0, troponin initial 62 with repeat delta 2-hour pending, chest x-raywith basilar atelectasis, cardiomegaly with mild congestion, bilateral pleural effusions with no significant change since prior evaluation, CT chest with cardiomegaly with small pericardial effusion, scattered mediastinal lymph nodes likely reactive, EKG with SR with mildly prolonged QTC, T wave morphology changeof unclear significance with no acute evidence of ischemia similar to prior. Inthe ED patient ministered hydralazine 10 mg IV x1. PFSH Medical History Polycystic kidney disease Sudden cardiac Hypertriglyceridemia Hyperlipidemia History of torsades de pointes Atherosclerosis of coronary artery of [place] heart without angina pectoris Syncope and collapse Ventricular fibrillation Ischemic cardiomyopathy ESRD (end stage renal disease) on dialysis Nonsustained ventricular tachycardia History of recurrent miscarriages, not currently History of DVT (deep vein thrombosis) Congenital polycystic kidney disease History of allergic rhinitis Obesity Benign essential hypertension Home Medications ?Medication ?Instructions ?Recorded ?Last Taken ?Type sertraline 50 mg tablet 75 mg PO QHS depression 01/0803/15/23 History cholecalciferol (vitamin D3) 25 1,000 unit PO QDAY 03/15/23 History mcg (1,000 unit) tablet sevelamer carbonate 800 mg tablet 4,000 mg PO TID 30 d ays #90 tabs 06/11/21 03/15/23 History calcium carbonate (Tums) 400 mg PO BID 03/30/2203/15 History nitroglycerin 0.4 mg sublingual 0.4 mg sublingual Q5M PRN Chest 10/14/22 03/15/23 Rx tablet Pain #25 tabs ipratropium bromide 21 mcg (0.03 2 spray intranasal DA BHANU 05/10/23 Unknown History %) nasal spray atorvastatin 10 mg tablet 10 mg PO DAILY #30 tabs 10/02 Unknown Rx levothyroxine 25 mcg tablet 25 mcg PO QDAY 10/11/24 Un known History vitamin B complex-vitamin C-folic 1 tab PO QDAY Unknown History acid 0.8 mg tablet (Rani-Yahir) warfarin 2 mg tablet 9 mg PO SUTUTHSA 10/11/24 Un known History warfarin 3 mg tablet 8 mg PO MOWEFR 10/11/24 Unkn own History zolpidem 10 mg tablet 10 mg PO QHS PRN insomnia Unknown History digoxin 125 mcg (0.125 mg) tablet 125 mcg PO QODAY #30 tabs 01/09/25 Unknown Rx carvedilol 6.25 mg tablet 6.25 mg PO BID blood pressur e 03/29/25 Unknown History telmisartan 40 mg tablet 40 mg PO BID blood pressure 03/29/25 Unknown History Allergy/AdvReac Type Severity Reaction Status Date / Time amoxicillin Allergy Rash Verified 03/29/25 15:14 doxercalciferol (From Allergy Hives Verified 03/29/25 15:14 Hectorol) etodolac Allergy Rash Verified 03/29/25 15:14 Penicillins (PCN) Allergy Rash Verified 03/29/25 15:14 sulfamethoxazole (From Allergy Rash Verified 03/29/25 15:14 Bactrim) tramadol Allergy Rash Verified 03/29/25 15:14 trimethoprim (From Bactrim) Allergy Rash Verified 03/29/25 15:14 strawberry AdvReac Vomiting Verified 03/29/25 15:14 Family History Father Hypertension Kidney disease Mother Diabetes Family History no significant family his Surgical History Hx of kidney removal History of implantable cardiac defibrillator (ICD) (11/22/19) History of coronary artery stent placement (04/22/16) fistulogram History of thyroid surgery Surgical History no surgical history Social History household members: none Smoking Status: Never smoker alcohol intake: never substance use type: does not use diet: other caffeine: No what type of physical activity do you participate in: none seatbelt use: always do you feel safe at home: Yes ROS ROS Narrative Admission Review of Systems: CONSTITUTIONAL: No weight loss, fever, chills, + weakness or fatigue. HEENT: Eyes: No visual loss, blurred vision, double vision or yellow sclerae. Ears, Nose, Throat: No hearing loss, sneezing, congestion, runny nose or sore throat. SKIN: No rash or itching, lesions, wounds. CARDIOVASCULAR: + Chest pain/burning sensation. No specific palpitations, edema, orthopnea, syncopal events. RESPIRATORY: + Dyspnea with nonproductive cough. No wheezing, hemoptysis. GASTROINTESTINAL: No anorexia, nausea, vomiting or diarrhea, abdominal pain, melena, BRBPR. GENITOURINARY: No dysuria, frequency, urgency or retention. NEUROLOGICAL: No headache, dizziness, syncope, paralysis, ataxia, numbness or tingling in the extremities, focal weakness, change in bowel or bladder control,seizure. MUSCULOSKELETAL: No muscle, back pain, joint pain or stiffness. HEMATOLOGIC: + Chronic anemia, easy bleeding/bruising. LYMPHATICS: No enlarged nodes. No history of splenectomy. PSYCHIATRIC: + History of anxiety and depression. ENDOCRINOLOGIC: No reports of sweating, cold or heat intolerance. No polyuria orpolydipsia. ALLERGIES: + History of hives, allergic rhinitis. Vital Signs Vital Signs Vital Signs: 03/29/25 15:14 03/29/25 16:13 03/29/25 17:00 Temperature 98 F Temperature Source Oral Pulse Rate 64 61 65 Respiratory Rate 16 16 Blood Pressure 174/61 H 172/61 H 196/66 H Blood Pressure Mean 98 98 109 Pulse Ox 94 93 94 Oxygen Delivery Method Room Air Room Air Room Air 03/29/25 18:00 03/29/25 19:00 03/29/25 19:29 Temperature 98.4 F Temperature Source Pulse Rate 65 65 65 Respiratory Rate 20 H 20 H 20 H Blood Pressure 181/58 H 193/62 H 197/65 H Blood Pressure Mean 99 105 109 Pulse Ox 95 96 95 Oxygen Delivery Method Room Air Room Air Weight Weight: 182 lb 15.739 oz Body Mass Index (BMI) 33.5 Physical Exam Narrative Physical Examination: General: Awake, alert, oriented x 3 and cooperative, seated upright in the bed, notes currently mild generalized headache there is no current chest pain. Skin: Normal color, normal turgor, no icterus, no cyanosis except occasional stage ecchymoses, abrasions. HEENT: AT/NC, EOMI, PERRLA, mildly dry MM, no carotid bruits or JVD noted. Lungs: Mildly diminished, greater bases, poor effort, no rales, ronchi or wheezing, no pain elicited with palpation of the anterior chest. Heart: Regular rate and rhythm; no gallop, rub audible. Abdomen: Soft, obese, NTTP, ND, mildly hyperactive BS, no appreciated HSM. Extremities: No cyanosis, no clubbing, mild ankle not markedly pitting edema. Neurological: Patient awake, alert, oriented as noted, cognitive function intact; pupils equally reactive to light and accommodation, cranial nerves grossly normal, moving all 4 extremities, no focaldeficits, strength mildly to moderately globally decreased. Psychiatric: Affect appears fatigued, no acute evidence of depressive or anxietyfeelings, does havea history of insomnia. Results Lab / Micro Data 03/29/25 16:20 03/29/25 16:20 Labs: Laboratory Results - last 24 hr 03/29/25 16:03: Magnesium 2.0 03/29/25 16:20: WBC 4.2 L, RBC 2.96 L, Hgb 8.8 L, Hct 27.0 L, MCV 91.2, MCH 29.7, MCHC 32.6, RDW Std Deviation 52.8 H, RDW Coeff of Tana 16.9 H, Plt Count 220, MPV 9.2, Immature Gran % (Auto) 0.200, Neut % (Auto) 67.8, Lymph % (Auto) 15.8 L, [place] % (Auto) 8.0, Eos % (Auto) 7.5 H, Baso % (Auto) 0.7, Absolute Neuts(auto) 2.9, Absolute Lymphs (auto) 0.67 L, Nucleated RBC % 0, PT 24.1 H, INR 2.1, Sodium 139, Potassium 3.7, Chloride 94 L, Carbon Dioxide 30.5, Anion Gap 14, BUN 19, Creatinine 5.66 H, Estim Creat Clear Calc 10.56 L, Est GFR (MDRD) Non-Af 8 L, BUN/Creatinine Ratio 3.4 L, Glucose 101 H, Calcium 7.9, Troponin T High Sens 62 H* Imaging Radiology Impression Chest X-Ray 03/29/25 16:33 IMPRESSION: 1. Bibasilar atelectasis or pneumonia. 2. Cardiomegaly with mild congestion. 3. No significant change from the prior exam. 4. Bilateral pleural effusions. Reading Location: [facility] Chest CT 03/29/25 18:15 IMPRESSION: 1. Cardiomegaly with small pericardial effusion. 2. Scattered mediastinal lymph nodes some of which are upper limits of normal in size and are most likely reactive lymph nodes. Reading Location: [facility] Assessment & Plan Assessment/Plan (1) Chest pressure: PLAN: Plan The patient is a 59 y/o F w/ PMHx: Polycystic kidney disease status post bilateral nephrectomies ESRD on HD M/W/F, Chronic normocytic anemia/AOCD, Orthostatic hypotension, CAD, PAF, history torsades/VT, Hypothyroidism, Obesity,HTN, HLD, Anxiety and Depression, recent ED evaluation 03/28/2025 secondary to chest pressure occurring during dialysis and intermittently in the last several weeks lasting approximately an hour in the substernal region described as mild to moderate usually occurring dialysis with associated nausea as well as dyspneabut no emesis nor any diaphoresis with no radiation of the chest discomfort withthe ED evaluation at that time with indeterminate cardiac enzymes felt stable likely secondary to underlying renal disease status post bilateral nephrectomy with blood pressure labile with plan for discharge to home with follow-up with nephrology and cardiology as they are working on a regimen to improve her blood pressure control with also unremarkable chest x-ray and EKG with no acute evidence of ischemia now presenting again to the [facility] ED on 03/29/2025 with ongoing dyspnea in addition to a nonproductive cough reportingthat she is actually at her dry weight with persistent pressure now on the left side of her chest with also an episode of burning sensation in the ED with at that time incidentally noted 10 beat run of V. tach with elevated persistent blood pressures despite recently initiated regimen of telmisartan, digoxin and Coreg prompting repeat ED evaluation. #1. Concern Accelerated Hypertension/Urgency (suspect enzymes indeterminant secondary to her renal disease) with associated Chest Pain with incidentally noted small pericardial effusion: EKG with SR with mildly prolonged QTC, T wave morphology change of unclear significance with no acute evidence of ischemia similar to prior; however, patient did have burst of VT in the ED suspected to be symptomatic, CXR w/ with bibasilar atelectasis, cardiomegaly with mild congestion, bilateral pleural effusions, initial trop 62 with repeat delta pending. Will admit to PCU, place on a monitored bed to assure no acute myocardial infarction with serial cardiac enzymes and EKGs. Magnesium level perED normal.Will monitor EKGs for QTc and adjust/alter/avoid medications as needed. Will obtain repeat echocardiogram given noted pericardial effusion to be cautious. ESR and CRP requested for trending purposes although would expect some elevation given underlying renal disease. If repeat serial cardiac enzymesremain similar will plan a.m. cardiac stress testing. ECHO requested given effusion noted. NG TD will be initiated, morphine. Interrogation attempted in the ED with noted AF with no firing. #2. Polycystic kidney disease status post bilateral nephrectomy with ESRD: Patient with ongoing dialysis Tuesday, Tuesday, Tuesday, encourage continued follow-up with nephrology given issues with blood pressure and low threshold to consult given they have been working with cardiology directly for an improved hypertensive regimen. Will continue patient home several [place] regimen. #3. Chronic normocytic anemia/AOCD: Admission hemoglobin 8.8, MCV 91.2, baseline hemoglobin ranges primarily 9-11, most recently previous 03/28/2025 hemoglobin 9.1, will continue to trend. #4. Orthostatic hypotension: Given patient recent increased blood pressures although labile especially dialysis will hold midodrine regimen at this time. #5. CAD: Status post previous PCI 2015, will continue Coumadin, statin, Coreg, telmisartan regimen with hold parameters as needed. #6. PAF: Will continue patient home digoxin and Coumadin regimen, not on any other rate or rhythm agent of note. #7. History of torsades, recent as noted symptomatic VT burst: Status post previous AICD placement 2019, Will continue digoxin, coreg regimen. Interrogation attempted in the ED with noted AF with no firing. #8. Hypothyroidism: Will continue patient levothyroxine regimen, TSH requested #9. Obesity: Weight loss and lifestyle changes encouraged. #10. Anxiety and depression: Will continue patient home sertraline regimen. #11. Hyperlipidemia: Will continue patient on statin therapy, FLP in AM. #12. DVT prophylaxis: Coumadin with INR trending. #13. CODE status: Patient NATALIIA is her daughter who is present and living will is currently in place. Discussed CODE status at length including difference between FULL code, DNR-CCA and DNR-CC status. Following discussions about the differences in these status, requested Full Code status. Advanced Care Planning Face to Face Time: 16 minutes. Charges/Coding Visit Charges Inpatient E&M: 43789 Init Hosp L3 Procedures Hospitalists Procedures: 92967 Advncd Care Plan 30 Min 03/29/252041 Cosigner Signature (if applicable): CC: Dr. Saadia Valencia MD; Dr. Trevor Vieyra MD~ Signed [facility]09-19-2025 Radiology Diagnostic study note [facility] Imaging Services [address] [place] [id number] Chest without Contrast MR#: [id number] Acct: [id number] Name: SPENCER REDDING Rep #: [id number] : 1965 F 59 From: Cailin Miles MD PCP: Dr. Trevor Vieyra MD Status: REG ER Study:Chest without Contrast Date of Exam: 03/29/25 Exam# [id number] Ordering Dr: Juan Wen DO EXAM: CT Chest Without Intravenous Contrast CLINICAL INDICATION: CHEST PAIN, ABNORMAL CXR TECHNIQUE: Axial computed tomography images of the chest without intravenous contrast. This CT examwas performed using one or more of the following dose reduction techniques: automated exposure control, adjustment of the mA and/or kV according to patient size, and/or use of iterative reconstruction technique. COMPARISON: CTA chest 03/15/2022 FINDINGS: LUNGS AND PLEURAL SPACES: Bilateral pleural effusion with compressive atelectasis. Superimposed pneumonia can not be excluded. Lung emphysema. No mass. HEART: Cardiomegaly with small pericardial effusion. Calcified coronary arterial disease. MEDIASTINUM: Scattered mediastinal lymph nodes some of which are upper limits of normal in size andare most likely reactive lymph nodes. BONES/JOINTS: Unremarkable. No acute fracture. SOFT TISSUES: Unremarkable. VASCULATURE: See above. LYMPH NODES: See above. CT/Chest without Contrast IMPRESSION: 1. Cardiomegaly with small pericardial effusion. 2. Scattered mediastinal lymph nodes some of which are upper limits of normal in size and are most likely reactive lymph nodes. Reading Location: [facility] CC: Dr. Padmini Wen DO; Dr. Trevor Vieyra MD ~ Clearing Distribution Clerk: Signed [facility]09-19-2025 Radiology Diagnostic study note [facility] Imaging Services [address] [place] [id number] Chest PA and Lateral MR#: [id number] Acct: [id number] Name: SPECNER REDDING Rep #: [id number] : 1965 F 59 From: Cailin Miles MD PCP: Dr. Trevor Vieyra MD Status: REG ER Study:Chest PA and Lateral Date of Exam: 03/29/25 Exam# [id number] Ordering Dr: Juan Wen DO EXAM: XR Chest, 1 View CLINICAL INDICATION: CHEST PAIN TECHNIQUE: Frontal view of the chest. COMPARISON: XR Chest dated 03/28/2025 FINDINGS: LUNGS AND PLEURAL SPACES: Bibasilar atelectasis or pneumonia. Bilateral pleural effusions. HEART: Cardiomegaly with mild congestion. MEDIASTINUM: Unremarkable. Normal mediastinal contour. BONES/JOINTS: Unremarkable. No acute fracture. SOFT TISSUES: Left axillary stents. TUBES, LINES AND DEVICES: Left-sided cardiac pacemaker. RAD/Chest PA and Lateral IMPRESSION: 1. Bibasilar atelectasis or pneumonia. 2. Cardiomegaly with mild congestion. 3. No significant change from the prior exam. 4. Bilateral pleural effusions. Reading Location: [facility] CC: Dr. Padmini Wen DO; Dr. Trevor Vieyra MD ~ Clearing Distribution Clerk: Signed [facility]09-19-2025 Discharge summary Author Padmini Wen [facility] Note Date/Time March 30, 2025 1:08am [facility] Medical Records Department [address] [place] [address] Emergency Department Summary 03/29/25 MR#: [id number] Acct: [id number] Name: SPENCER REDDING Rep #:[id number] : 1965 59 From: Padmini Rice PCP: Dr. Trevor Vieyra MD Status:ADM ISAIAS Location: [address] History of Present Illness Chief Complaint: Chest Pain Informant: patient Narrative Narrative: Patient is a 59 year old female with history of end-stage renal disease secondary to bilateral nephrectomy for polycystic kidney disease on hemodialysis( M,W,F), coronary artery disease, history of torsades de point and ICD placement in 2019 as well as atrial fibrillation and history of DVT (on Coumadin). She is presenting today with recurrent episode of chest pain. Patient states that over the past few weeks has not been feeling right and they have been trying to manage her blood pressure. She has had blood pressures [id number]. She is recently started on telmisartan, digoxin and carvedilol. She was seen in the ER yesterday for chest pressure as well and ultimately discharged home. She notes while at dialysis today her blood pressure was elevated and shestarted having chest pain. She was given nitroglycerin as well as clonidine 0.1mg. She had dialysis for 2 hours and 10 minutes no sent to the ER for further evaluation. She states she has also been having ongoing cough. She states she feels short of breath and has to cough to clear it. She notes that she is actually under her dry weight. She denies any fever or chills. The pressure dio the left side of her chest. While in the ER patient did also have an episode of a burning chest pain that felt different than her other chest pains. Nursing states this correlated for about a 10 beat run of V. tach. [facility] Medical History Polycystic kidney disease Sudden cardiac Hypertriglyceridemia Hyperlipidemia History of torsades de pointes Atherosclerosis of coronary artery of [place] heart without angina pectoris Syncope and collapse Ventricular fibrillation Ischemic cardiomyopathy ESRD (end stage renal disease) on dialysis Nonsustained ventricular tachycardia History of recurrent miscarriages, not currently History of DVT (deep vein thrombosis) Congenital polycystic kidney disease History of allergic rhinitis Obesity Benign essential hypertension Home Medications ?Medication ?Instructions ?Recorded ?Last Taken ?Type sertraline 50 mg tablet 75 mg PO QHS depression 01/0803/15/23 History cholecalciferol (vitamin D3) 25 1,000 unit PO QDAY 03/15/23 History mcg (1,000 unit) tablet sevelamer carbonate 800 mg tablet 4,000 mg PO TID 30 d ays #90 tabs 06/11/21 03/15/23 History calcium carbonate (Tums) 400 mg PO BID 03/30/2203/15 History nitroglycerin 0.4 mg sublingual 0.4 mg sublingual Q5M PRN Chest 10/14/22 03/15/23 Rx tablet Pain #25 tabs ipratropium bromide 21 mcg (0.03 2 spray intranasal DA BHANU 05/10/23 Unknown History %) nasal spray atorvastatin 10 mg tablet 10 mg PO DAILY #30 tabs 10/02 Unknown Rx levothyroxine 25 mcg tablet 25 mcg PO QDAY 10/11/24 Un known History vitamin B complex-vitamin C-folic 1 tab PO QDAY Unknown History acid 0.8 mg tablet (Rani-Yahir) warfarin 2 mg tablet 9 mg PO SUTUTHSA 10/11/24 Un known History warfarin 3 mg tablet 8 mg PO MOWEFR 10/11/24 Unkn own History zolpidem 10 mg tablet 10 mg PO QHS PRN insomnia Unknown History digoxin 125 mcg (0.125 mg) tablet 125 mcg PO QODAY #30 tabs 01/09/25 Unknown Rx carvedilol 6.25 mg tablet 6.25 mg PO BID blood pressur e 03/29/25 Unknown History telmisartan 40 mg tablet 40 mg PO BID blood pressure 03/29/25 Unknown History Allergy/AdvReac Type Severity Reaction Status Date / Time amoxicillin Allergy Rash Verified 03/29/25 15:14 doxercalciferol (From Allergy Hives Verified 03/29/25 15:14 Hectorol) etodolac Allergy Rash Verified 03/29/25 15:14 Penicillins (PCN) Allergy Rash Verified 03/29/25 15:14 sulfamethoxazole (From Allergy Rash Verified 03/29/25 15:14 Bactrim) tramadol Allergy Rash Verified 03/29/25 15:14 trimethoprim (From Bactrim) Allergy Rash Verified 03/29/25 15:14 strawberry AdvReac Vomiting Verified 03/29/25 15:14 Family History Father Hypertension Kidney disease Mother Diabetes Family History no significant family his Surgical History Hx of kidney removal History of implantable cardiac defibrillator (ICD) (11/22/19) History of coronary artery stent placement (04/22/16) fistulogram History of thyroid surgery Surgical History no surgical history Social History household members: none Smoking Status: Never smoker alcohol intake: never substance use type: does not use diet: other caffeine: No what type of physical activity do you participate in: none seatbelt use: always do you feel safe at home: Yes ROS ROS ED Constitutional Constitutional ED: Reports other Details: Fatigue, increased sleeping ; Denies fever(s) ENT ENT ED: Denies rhinorrhea Cardiovascular Cardiovascular: Reports chest pain Respiratory/Chest Respiratory/Chest: Reports cough and dyspnea Gastrointestinal Gastrointestinal: Denies nausea or vomiting Musculoskeletal Musculoskeletal: Denies arthralgias or myalgias Integumentary Denies rash Neurologic Neurologic: Reports weakness Hematologic/Lymphatic Hematologic/Lymphatic: Reports easy bleeding, easy bruising and other Details: On Coumadin EXAM Physical Exam Const Vital Signs: 03/29/25 15:14 03/29/25 16:13 03/29/25 17:00 Temperature 98 F Temperature Source Oral Pulse Rate 64 61 65 Respiratory Rate 16 16 Blood Pressure 174/61 H 172/61 H 196/66 H Blood Pressure Mean 98 98 109 Pulse Ox 94 93 94 Oxygen Delivery Method Room Air Room Air Room Air 03/29/25 18:00 03/29/25 19:00 03/29/25 19:29 Temperature 98.4 F Temperature Source Pulse Rate 65 65 65 Respiratory Rate 20 H 20 H 20 H Blood Pressure 181/58 H 193/62 H 197/65 H Blood Pressure Mean 99 105 109 Pulse Ox 95 96 95 Oxygen Delivery Method Room Air Room Air Positive well nourished and well developed General Appearance ED: well developed and NAD; Negative for pallor HEENT Reports moist mucous membranes Neck supple and no JVD Chest Wall inspection of chest normal Resp normal respiratory effort Resp Narrative: Mildly diminished breath sounds at the bases Cardio regular rate, regular rhythm and no murmurs Cardio Narrative: AV fistula in the left upper extremity with palpable thrill GI normal to inspection, nondistended, normoactive bowel sounds and soft to palpation Extremity normal to inspection General Extremety ED: Negative for edema General Extremity: Negative for edema Neuro oriented x3 Sensorium / Orientation: awake Motor Exam: general weakness Psych mental status grossly normal Skin no rashes or lesions noted and no wounds General Skin Exam: Negative for pallor Heart Score History: Moderately Suspicious ECG: Nonspecific Repolarization Age: >45 - <65 years Risk Factors: >/= 3 Risk Factors or History of CAD Troponin: >1 - <3 Normal Limit Score: 6 MDM MDM MDM Narrative Medical decision making narrative: Patient evaluated for recurrent chest pressure while at dialysis today. Not been feeling well recently. 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 Differential includes not limited to hypertensive emergency, ACS, arrhythmia, symptomatic anemia, pneumonia, pneumothorax, pleural effusion, electrolyte derangements. While in the ER patient is also have a run of V. tach however she does have an ICD and it does not fire. Unfortunately it was witnessed by nurse staff on telemetry but not captured for the records. Patient's CBC shows anemia with a hemoglobin 8.8 which is consistent with her baseline. She has a mild leukopenia at a white blood cell count of 4.2 which isnonspecific. BMP consistent with end-stage renal disease with elevated creatinine however she otherwise does not have a significant Robbins abnormalities. INR is therapeutic at 2.1. Low suspicion for PE as a cause of her symptoms. High since he troponin is elevated at 62 and 63 however this appears to be her baseline and consistent with where she was yesterday. Chest x-ray viewed by myself as well as radiology shows bibasilar atelectasis orpneumonia and cardiomegaly with mild congestion. CT of the chest is added on for further evaluation and to see if there is truly an underlying pneumonia versus this is more cardiac in nature. CT of the chest shows cardiomegaly with small pericardial effusion but no signs of pneumonia. Will hold off on any antibiotic treatment at this time so she has not been having any fevers. Patient was given hydralazine for hypertension in the emergency room. Given herrecurrent chest pain, cardiac risk factors and elevated blood pressure in emergency room will admit for further cardiac workup to try to determine the cause for her pain and also obtain better blood pressure control. Patient agreeable with this. Case discussed with hospitalist, Dr. Valencia for admission. Lab Data Attestation: I reviewed the patient's lab results. Labs: Laboratory Results - last 24 hr 03/29/25 03/29/25 03/29/25 16:03 16:20 18:13 WBC 4.2 L RBC 2.96 L Hgb 8.8 L Hct 27.0 L MCV 91.2 MCH 29.7 MCHC 32.6 RDW Std Deviation 52.8 H RDW Coeff of Tana 16.9 H Plt Count 220 MPV 9.2 Immature Gran % (Auto) 0.200 Neut % (Auto) 67.8 Lymph % (Auto) 15.8 L [place] % (Auto) 8.0 Eos % (Auto) 7.5 H Baso % (Auto) 0.7 Absolute Neuts (auto) 2.9 Absolute Lymphs (auto) 0.67 L Nucleated RBC % 0 ESR 6 PT 24.1 H INR 2.1 Sodium 139 Potassium 3.7 Chloride 94 L Carbon Dioxide 30.5 Anion Gap 14 BUN 19 Creatinine 5.66 H Estim Creat Clear Calc 10.56 L Est GFR (MDRD) Non-Af 8 L BUN/Creatinine Ratio 3.4 L Glucose 101 H Calcium 7.9 Magnesium 2.0 Troponin T High Sens 62 H* Troponin T Hi Sens 2 Hr 63 H* C-React Prot Ext Range < 3.00 Radiography Diagnostic Testing: Clinical Impression(s) from Imaging Studies Chest X-Ray 03/29/25 16:33 IMPRESSION: 1. Bibasilar atelectasis or pneumonia. 2. Cardiomegaly with mild congestion. 3. No significant change from the prior exam. 4. Bilateral pleural effusions. Reading Location: [facility] Chest CT 03/29/25 18:15 IMPRESSION: 1. Cardiomegaly with small pericardial effusion. 2. Scattered mediastinal lymph nodes some of which are upper limits of normal in size and are most likely reactive lymph nodes. Reading Location: [facility] Rhythm Strip Rhythm Strip: Sinus Rhythm Rate: 62 Ectopy: None EKG Initial EKG: Attestation: I personally reviewed and interpreted this EKG as follows: Interpretation: Sinus Rhythm Comments: Normal sinus rhythm rate of 62 bpm Normal axis Nonspecific ST segment changes Mildly prolonged QTc No significant change prior to prior EKG Management Discussion w/another healthcare provider: Hospitalist Discharge Plan Dx/Rx/DC Orders Clinical Impression: Accelerated essential hypertension, Chest pressure, History of implantable cardiac defibrillator (ICD), ESRD (end stage renal disease) on dialysis Disposition Disposition: Acute Care Hospital [facility] Discharge Date/Time: 03/29/25 20:34 What to do if you have Problems For any increased pain, shortness of breath, bleeding, nausea or vomiting, chestpain, or any unexpected problems, contact your Primary Care Provider. Call [facility] ([phone]) or report to the closest Emergency Room. Call 911 if necessary. 03/30/25 0108 <Electronically signed by Padmini Wen DO> Cosigner Signature (if applicable): CC: Dr. Trevor Vierya MD ~ Signed [facility] Work Phone: [phone] Discharge summary [facility] Medical Records Department [address] [place] [address] Emergency Department Summary 03/28/25 MR#: [id number] Acct: [id number] Name: SPENCER REDDING Rep #:[id number] : 1965 59 From: Yaniv Aguero MD PCP: Dr. Trevor Vieyra MD Status:REG ER Location: ED HPI History of Present Illness Chief Complaint: Chest Pain Detail of Chief Complaint: Chest pressure and elevated blood pressure. Informant: patient Onset/Context/Timing Onset: Today and Yesterday Activity at onset: sudden and rest (Today occurred during dialysis.) Timing: Continuous (Today) and Intermittent (Lasted approximate hour yesterday) Quality: Positive for Pressure Location: Substernal Current Severity: Mild Maximum Severity: Moderate Worsened By: - (Usually occurs during dialysis.) Relieved By: Nothing Associated Symptoms: Positive for Nausea and Dyspnea; Negative for Vomiting, Diaphoresis, Cough, Fever, Lightheadedness, Acid Reflux or Palpitations Narrative Narrative: Patient is a 59-year-old woman. She has history of end-stage renal dialysis status post bilateral nephrectomy due to polycystic kidney disease. She is on hemodialysis Tuesday, and Tuesday. She has a history of paroxysmal atrial fibrillation, DVT, ICD, coronary artery disease with stent placement manyyears ago. She also has history of torsades de point and benign essential hypertension. Patient presents because of chest discomfort. This occurred during dialysis. She still having some discomfort. She denies radiation of the pain. She has slight nausea and shortness of breath. She denies abdominal pain, vomiting or diarrhea. She makes no urine since she is status post nephrectomy bilaterally. She denies history of trauma. She denies headache, visual, ocular auditory symptoms. She has no upper respiratory tract infectious symptoms. She denies fever or chills. Prior Similar Symptoms: Yes Recent Illness/Hospitalization: No CVD Risk Factors: Positive for Hypertension and Hypercholesterolemia PE Risk Factors: Positive for Prior DVT or PE and OCP + Smoking + >/=35; Negative for Recent Travel/Surgery, Recent Immobilization or Cancer TAD Risk Factors: Positive for Hypertension; Negative for Marfan's Syndrome or Family History [facility] Medical History Polycystic kidney disease Sudden cardiac Hypertriglyceridemia Hyperlipidemia History of torsades de pointes Atherosclerosis of coronary artery of [place] heart without angina pectoris Syncope and collapse [...] 50 mg PO QHS depression 01/0803/15/23 History cholecalciferol (vitamin D3) 25 1,000 unit PO QDAY 03/15/23 History mcg (1,000 unit) tablet sevelamer carbonate 800 mg tablet 800 mg PO TID 30 day s #90 tabs 06/11/21 03/15/23 History calcium carbonate (Tums) 400 mg PO BID 03/30/2203/15 History nitroglycerin 0.4 mg sublingual 0.4 mg sublingual Q5M PRN Chest 10/14/22 03/15/23 Rx tablet Pain #25 tabs ipratropium bromide 21 mcg (0.03 2 spray intranasal BI D 05/10/23 Unknown History %) nasal spray atorvastatin 10 mg tablet 10 mg PO DAILY #30 tabs 0410/02 Unknown Rx levothyroxine 25 mcg tablet 25 mcg PO QDAY 10/11/24 Un known History midodrine 10 mg tablet 10 mg PO DAILY 10/11/24 Unkn own History vitamin B complex-vitamin C-folic 1 tab PO QDAY Unknown History acid 0.8 mg tablet (Rani-Yahir) warfarin 2 mg tablet 2 mg PO QDAY 10/11/24 Unknow n History warfarin 3 mg tablet 3 mg PO 3XW 10/11/24 Unknown History warfarin 5 mg tablet 5 mg PO QDAY 10/11/24 Unknow n History zolpidem 10 mg tablet 10 mg PO QHS PRN insomnia Unknown History digoxin 125 mcg (0.125 mg) tablet 125 mcg PO QODAY #30 tabs 01/09/25 Unknown Rx Allergy/AdvReac Type Severity Reaction Status Date / Time amoxicillin Allergy Rash Verified 03/28/25 16:50 doxercalciferol (From Allergy Hives Verified 03/28/25 16:50 Hectorol) etodolac Allergy Rash Verified 03/28/25 16:50 Penicillins (PCN) Allergy Rash Verified 03/28/25 16:50 sulfamethoxazole (From Allergy Rash Verified 03/28/25 16:50 Bactrim) tramadol Allergy Rash Verified 03/28/25 16:50 trimethoprim (From Bactrim) Allergy Rash Verified 03/28/25 16:50 strawberry AdvReac Vomiting Verified 03/28/25 16:50 Family History Father Hypertension Kidney disease Mother [...] ROS ROS ED Constitutional Constitutional ED: Denies chills, fever(s), subjective or sweats Eyes Eyes: Reports none ENT ENT ED: Denies ear pain, rhinorrhea or sore throat Cardiovascular Cardiovascular: Reports as per HPI; Denies orthopnea or paroxysmal nocturnal dyspnea Respiratory/Chest Respiratory/Chest: Reports dyspnea; Denies cough, dyspnea on exertion, orthopnea, paroxysmal nocturnal dyspnea or sputum Gastrointestinal Gastrointestinal: Reports nausea; Denies abdominal pain, constipation, diarrhea,melena or vomiting Musculoskeletal Musculoskeletal: Denies arthralgias, back pain, myalgias or neck pain Integumentary Denies rash Neurologic Neurologic: Denies headache(s) or paresthesias Endocrine Endocrinology: Denies cold intolerance or heat intolerance Hematologic/Lymphatic Hematologic/Lymphatic: Denies easy bleeding or easy bruising EXAM Physical Exam Const Vital Signs: 03/28/25 16:49 03/28/25 17:04 03/28/25 17:05 Temperature 98.5 F Temperature Source Oral Pulse Rate 75 73 Respiratory Rate 16 21 H Respiratory Effort Normal Non-Labored Respiratory Pattern Normal Blood Pressure 219/69 H 200/59 H Blood Pressure Mean 119 106 Pulse Ox 100 92 Oxygen Delivery Method Room Air Room Air Oxygen Flow Rate (L/min) 03/28/25 18:34 03/28/25 18:37 03/28/25 19:00 Temperature Temperature Source Pulse Rate 67 66 Respiratory Rate 12 18 Respiratory Effort Respiratory Pattern Blood Pressure 194/59 H 196/56 H Blood Pressure Mean 104 102 Pulse Ox 94 97 95 Oxygen Delivery Method Nasal Cannula Nasal Cannula Oxygen Flow Rate (L/min) 2 2 03/28/25 20:00 03/28/25 21:00 Temperature Temperature Source Pulse Rate 66 65 Respiratory Rate 15 13 Respiratory Effort Respiratory Pattern Blood Pressure 192/58 H 191/53 H Blood Pressure Mean 102 99 Pulse Ox 98 99 Oxygen Delivery Method Nasal Cannula Nasal Cannula Oxygen Flow Rate (L/min) 2 2 Positive well nourished and well developed Constitutional Narrative: Patient appears in no distress. General Appearance ED: well developed HEENT Reports moist mucous membranes normocephalic Eyes PERRL and EOMs intact bilaterally General Eye ED: Negative for pale conjunctiva or scleral icterus Neck no lymphadenopathy, supple and no JVD Chest Wall inspection of chest normal and palpation of chest normal Resp normal respiratory effort and clear to auscultation bilaterally Cardio regular rate, regular rhythm, S1 normal heart sound, S2 normal heart sound and no murmurs GI normal to inspection, nondistended, normoactive bowel sounds, soft to palpation,non-tender, non-distended and no masses; Negative for hepatosplenomegaly Back/Spine no CVA tenderness and no thoracic nor lumbar tenderness Extremity normal to inspection Neuro oriented x3, CN's II-XII intact bilaterally and no sensory deficits noted Sensorium / Orientation: awake and alert Psych mental status grossly normal Skin no rashes or lesions noted and no wounds MDM MDM MDM Narrative Medical decision making narrative: Differential diagnosis cardiac versus noncardiac chest pain. Noncardiac would be reflux, hiatal hernia, peptic ulcer disease, pulmonary. History and physicalnot consistent with pulmonary embolus or aortic dissection. In light of her history of cardiac disease will obtain EKG troponins. CBC to assess H&H. BMP to assess BUN and creatinine. Her symptoms are consistent with pericarditis either. Lab Data Attestation: I reviewed the patient's lab results. Lab results narrative: CBC reveals mild anemia with an H&H of 9.1 and 28.5. Basic metabolic panel reveals a BUN and creatinine of 27 and 7.43. CO2 is normal. Glucose was slightly low at 115. First troponin is elevated 63. This is probably due to the fact that she has no kidneys. 2 hours pending. Labs: Laboratory Results - last 24 hr 03/28/25 03/28/25 17:30 19:32 WBC 4.8 RBC 3.11 L Hgb 9.1 L Hct 28.5 L MCV 91.6 MCH 29.3 MCHC 31.9 L RDW Std Deviation 52.5 H RDW Coeff of Tana 16.6 H Plt Count 266 MPV 9.4 Immature Gran % (Auto) 0.200 Neut % (Auto) 66.8 Lymph % (Auto) 16.3 L [place] % (Auto) 7.6 Eos % (Auto) 8.7 H Baso % (Auto) 0.4 Absolute Neuts (auto) 3.2 Absolute Lymphs (auto) 0.79 L Nucleated RBC % 0.6 Sodium 140 Potassium 4.0 Chloride 96 L Carbon Dioxide 28.8 Anion Gap 16 H BUN 27 H Creatinine 7.43 H* Est GFR (MDRD) Non-Af 6 L BUN/Creatinine Ratio 3.6 L Glucose 115 H Calcium 8.7 Troponin T High Sens 63 H* Troponin T Hi Sens 2 Hr 64 H* . 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 Suspect patient's troponin is elevated due to the fact she has had bilateral nephrectomy. Will discharge to home. Of note her blood pressure is elevated. Her blood pressure has been labile. She states is either very low or very high. Her director of player personnel and portrait photographer are trying to work a drug regimen that will work for her. Since there is no evidence of endorgan dysfunction, aortic dissection, MD she will be discharged to home to have this treated as an outpatient Radiography Diagnostic Testing: Clinical Impression(s) from Imaging Studies Chest X-Ray 03/28/25 17:30 IMPRESSION: Mild cardiomegaly. Small bibasilar pleural effusions/atelectasis. Reading Location: [facility] Discharge Plan Triage Chief Complaint: Chest Pain Other Complaint: Hypertension ED Provider: Yaniv Aguero Dx/Rx/DC Orders Clinical Impression: Chest pressure, Accelerated essential hypertension, Atherosclerosis of coronaryartery of [place] heart without angina pectoris, ESRD (end stage renal disease) on dialysis, Hyperlipidemia Instructions: ED Chest Pain, Uncertain Cause, ED High Blood Pressure Hypertension Prescriptions: No Action cholecalciferol (vitamin D3) 1,000 unit tablet 1,000 unit PO QDAY sevelamer carbonate 800 mg tablet 800 mg PO TID 30 Days Qty: 90 Patient Comments: 4 tabs tid calcium carbonate [Tums] 200 mg calcium (500 mg) tablet,chewable 400 mg PO BID ipratropium bromide 21 mcg (0.03 %) spray,non-aerosol 2 spray intranasal BID Rx Instructions: administer into each nostril midodrine 10 mg tablet 10 mg PO DAILY levothyroxine 25 mcg tablet 25 mcg PO QDAY warfarin 3 mg tablet 3 mg PO 3XW warfarin 2 mg tablet 2 mg PO QDAY warfarin 5 mg tablet 5 mg PO QDAY Rx Instructions: Managed by PCP Rani-Yahir 0.8 mg tablet 1 tab PO QDAY zolpidem 10 mg tablet 10 mg PO QHS PRN (Reason: insomnia) atorvastatin 10 mg tablet 10 mg PO DAILY Qty: 30 12RF sertraline 50 MG tablet 50 mg PO QHS nitroglycerin 0.4 mg tablet, sublingual 0.4 mg SUBLINGUAL Q5M PRN (Reason: Chest Pain) Qty: 25 2RF digoxin 125 mcg (0.125 mg) tablet 125 mcg PO QODAY Qty: 30 11RF Primary Care Provider: Trevor Vieyra Referrals: Trevor Vieyra MD [Primary Care Provider, [facility] - 3-5 Days Print Language: Bhutanese Disposition Disposition: Home, Self Care What to do if you have Problems For any increased pain, shortness of breath, bleeding, nausea or vomiting, chestpain, or any unexpected problems, contact your Primary Care Provider. Call [facility] ([phone]) or report tothe closest Emergency Room. Call 911 if necessary. 03/28/252153 Cosigner Signature (if applicable): CC: Dr. Trevor Vieyra MD ~ Signed ADDENDUM by Dr. Yaniv Aguero MD on 03/28/25 at 2155 EKG normal sinus rhythm rate of 71. VA interval intervals under 76 ms QRS duration 84 ms. QT duration Forner 72 ms axis is normal. Patient has some nonseptic ST-T wave changes. No acute ischemic changes. Unchanged from prior 03/28/252154 Cosigner Signature (if applicable): cc: Dr. Trevor Vieyra MD ~* Signed [facility]09-18-2025 Radiology Diagnostic study note [facility] Imaging Services [address] [place], [place] [address] Chest PA and Lateral MR#: [id number] Acct: [id number] Name: SPENCER REDDING Rep #: [id number] : 1965 F 59 From: Bobo Magallon MD PCP: Dr. Trevor Vieyra MD Status: REG ER Study:Chest PA and Lateral Date of Exam: 03/28/25 Exam# [id number] Ordering Dr: Joe Aguero MD PROCEDURE: CHEST PA AND LATERAL 03/28/2025 REASON FOR EXAM: CHEST PRESSURE, DYSPNEA AND ELEVATED BLOOD PRESSUR TECHNIQUE: Procedure Code: RADCXR Modality: DX Procedure: CHEST PA AND LATERAL COMPARISON: 09/17/2024 FINDINGS: Devices: Anterior left chest wall subcutaneous ICD. Lungs/Pleura: Small bibasilar pleural effusions and/or atelectasis. No pneumothorax. No focal airspace consolidation. Heart/Mediastinum: Mildly enlarged. Aortic arch calcification. Bones/Soft tissues: Degenerative changes of the spine. Left axillary vascular stent. RAD/Chest PA and Lateral IMPRESSION: Mild cardiomegaly. Small bibasilar pleural effusions/atelectasis. Reading Location: [facility] CC: Dr. Trevor Vieyra MD; Dr. Yaniv Aguero MD ~ Clearing Distribution Clerk: Signed [facility]09-18-2025 Discharge summary Author Yaniv Aguero [facility] Note Date/Time March 28, 2025 9:55pm [facility] Medical Records Department [address] [place] [id number] Emergency Department Summary 03/28/25 MR#: [id number] Acct: [id number] Name: SPENCER REDDING Rep #:[id number] : 1965 59 From: Yaniv Aguero MD PCP: Dr. Trevor Vieyra MD Status:REG ER Location: ED HPI History of Present Illness Chief Complaint: Chest Pain Detail of Chief Complaint: Chest pressure and elevated blood pressure. Informant: patient Onset/Context/Timing Onset: Today and Yesterday Activity at onset: sudden and rest (Today occurred during dialysis.) Timing: Continuous (Today) and Intermittent (Lasted approximate hour yesterday) Quality: Positive for Pressure Location: Substernal Current Severity: Mild Maximum Severity: Moderate Worsened By: - (Usually occurs during dialysis.) Relieved By: Nothing Associated Symptoms: Positive for Nausea and Dyspnea; Negative for Vomiting, Diaphoresis, Cough, Fever, Lightheadedness, Acid Reflux or Palpitations Narrative Narrative: Patient is a 59-year-old woman. She has history of end-stage renal dialysis status post bilateral nephrectomy due to polycystic kidney disease. She is on hemodialysis Tuesday, and Tuesday. She has a history of paroxysmal atrial fibrillation, DVT, ICD, coronary artery disease with stent placement manyyears ago. She also has history of torsades de point and benign essential hypertension. Patient presents because of chest discomfort. This occurred during dialysis. She still having some discomfort. She denies radiation of the pain. She has slight nausea and shortness of breath. She denies abdominal pain, vomiting or diarrhea. She makes no urine since she is status post nephrectomy bilaterally. She denies history of trauma. She denies headache, visual, ocular auditory symptoms. She has no upper respiratory tract infectious symptoms. She denies fever or chills. Prior Similar Symptoms: Yes Recent Illness/Hospitalization: No CVD Risk Factors: Positive for Hypertension and Hypercholesterolemia PE Risk Factors: Positive for Prior DVT or PE and OCP + Smoking + >/=35; Negative for Recent Travel/Surgery, Recent Immobilization or Cancer TAD Risk Factors: Positive for Hypertension; Negative for Marfan's Syndrome or Family History [facility] Medical History Polycystic kidney disease Sudden cardiac Hypertriglyceridemia Hyperlipidemia History of torsades de pointes Atherosclerosis of coronary artery of [place] heart without angina pectoris Syncope and collapse [...] 50 mg PO QHS depression 01/0803/15/23 History cholecalciferol (vitamin D3) 25 1,000 unit PO QDAY 03/15/23 History mcg (1,000 unit) tablet sevelamer carbonate 800 mg tablet 800 mg PO TID 30 day s #90 tabs 06/11/21 03/15/23 History calcium carbonate (Tums) 400 mg PO BID 03/30/2203/15 History nitroglycerin 0.4 mg sublingual 0.4 mg sublingual Q5M PRN Chest 10/14/22 03/15/23 Rx tablet Pain #25 tabs ipratropium bromide 21 mcg (0.03 2 spray intranasal BI D 05/10/23 Unknown History %) nasal spray atorvastatin 10 mg tablet 10 mg PO DAILY #30 tabs 10/02 Unknown Rx levothyroxine 25 mcg tablet 25 mcg PO QDAY 10/11/24 Un known History midodrine 10 mg tablet 10 mg PO DAILY 10/11/24 Unkn own History vitamin B complex-vitamin C-folic 1 tab PO QDAY Unknown History acid 0.8 mg tablet (Rani-Yahir) warfarin 2 mg tablet 2 mg PO QDAY 10/11/24 Unknow n History warfarin 3 mg tablet 3 mg PO 3XW 10/11/24 Unknown History warfarin 5 mg tablet 5 mg PO QDAY 10/11/24 Unknow n History zolpidem 10 mg tablet 10 mg PO QHS PRN insomnia Unknown History digoxin 125 mcg (0.125 mg) tablet 125 mcg PO QODAY #30 tabs 01/09/25 Unknown Rx Allergy/AdvReac Type Severity Reaction Status Date / Time amoxicillin Allergy Rash Verified 03/28/25 16:50 doxercalciferol (From Allergy Hives Verified 03/28/25 16:50 Hectorol) etodolac Allergy Rash Verified 03/28/25 16:50 Penicillins (PCN) Allergy Rash Verified 03/28/25 16:50 sulfamethoxazole (From Allergy Rash Verified 03/28/25 16:50 Bactrim) tramadol Allergy Rash Verified 03/28/25 16:50 trimethoprim (From Bactrim) Allergy Rash Verified 03/28/25 16:50 strawberry AdvReac Vomiting Verified 03/28/25 16:50 Family History Father Hypertension Kidney disease Mother [...] ROS ROS ED Constitutional Constitutional ED: Denies chills, fever(s), subjective or sweats Eyes Eyes: Reports none ENT ENT ED: Denies ear pain, rhinorrhea or sore throat Cardiovascular Cardiovascular: Reports as per HPI; Denies orthopnea or paroxysmal nocturnal dyspnea Respiratory/Chest Respiratory/Chest: Reports dyspnea; Denies cough, dyspnea on exertion, orthopnea, paroxysmal nocturnal dyspnea or sputum Gastrointestinal Gastrointestinal: Reports nausea; Denies abdominal pain, constipation, diarrhea,melena or vomiting Musculoskeletal Musculoskeletal: Denies arthralgias, back pain, myalgias or neck pain Integumentary Denies rash Neurologic Neurologic: Denies headache(s) or paresthesias Endocrine Endocrinology: Denies cold intolerance or heat intolerance Hematologic/Lymphatic Hematologic/Lymphatic: Denies easy bleeding or easy bruising EXAM Physical Exam Const Vital Signs: 03/28/25 16:49 03/28/25 17:04 03/28/25 17:05 Temperature 98.5 F Temperature Source Oral Pulse Rate 75 73 Respiratory Rate 16 21 H Respiratory Effort Normal Non-Labored Respiratory Pattern Normal Blood Pressure 219/69 H 200/59 H Blood Pressure Mean 119 106 Pulse Ox 100 92 Oxygen Delivery Method Room Air Room Air Oxygen Flow Rate (L/min) 03/28/25 18:34 03/28/25 18:37 03/28/25 19:00 Temperature Temperature Source Pulse Rate 67 66 Respiratory Rate 12 18 Respiratory Effort Respiratory Pattern Blood Pressure 194/59 H 196/56 H Blood Pressure Mean 104 102 Pulse Ox 94 97 95 Oxygen Delivery Method Nasal Cannula Nasal Cannula Oxygen Flow Rate (L/min) 2 2 03/28/25 20:00 03/28/25 21:00 Temperature Temperature Source Pulse Rate 66 65 Respiratory Rate 15 13 Respiratory Effort Respiratory Pattern Blood Pressure 192/58 H 191/53 H Blood Pressure Mean 102 99 Pulse Ox 98 99 Oxygen Delivery Method Nasal Cannula Nasal Cannula Oxygen Flow Rate (L/min) 2 2 Positive well nourished and well developed Constitutional Narrative: Patient appears in no distress. General Appearance ED: well developed HEENT Reports moist mucous membranes normocephalic Eyes PERRL and EOMs intact bilaterally General Eye ED: Negative for pale conjunctiva or scleral icterus Neck no lymphadenopathy, supple and no JVD Chest Wall inspection of chest normal and palpation of chest normal Resp normal respiratory effort and clear to auscultation bilaterally Cardio regular rate, regular rhythm, S1 normal heart sound, S2 normal heart sound and no murmurs GI normal to inspection, nondistended, normoactive bowel sounds, soft to palpation,non-tender, non-distended and no masses; Negative for hepatosplenomegaly Back/Spine no CVA tenderness and no thoracic nor lumbar tenderness Extremity normal to inspection Neuro oriented x3, CN's II-XII intact bilaterally and no sensory deficits noted Sensorium / Orientation: awake and alert Psych mental status grossly normal Skin no rashes or lesions noted and no wounds MDM MDM MDM Narrative Medical decision making narrative: Differential diagnosis cardiac versus noncardiac chest pain. Noncardiac would be reflux, hiatal hernia, peptic ulcer disease, pulmonary. History and physicalnot consistent with pulmonary embolus or aortic dissection. In light of her history of cardiac disease will obtain EKG troponins. CBC to assess H&H. BMP to assess BUN and creatinine. Her symptoms are consistent with pericarditis either. Lab Data Attestation: I reviewed the patient's lab results. Lab results narrative: CBC reveals mild anemia with an H&H of 9.1 and 28.5. Basic metabolic panel reveals a BUN and creatinine of 27 and 7.43. CO2 is normal. Glucose was slightly low at 115. First troponin is elevated 63. This is probably due to the fact that she has no kidneys. 2 hours pending. Labs: Laboratory Results - last 24 hr 03/28/25 03/28/25 17:30 19:32 WBC 4.8 RBC 3.11 L Hgb 9.1 L Hct 28.5 L MCV 91.6 MCH 29.3 MCHC 31.9 L RDW Std Deviation 52.5 H RDW Coeff of Tana 16.6 H Plt Count 266 MPV 9.4 Immature Gran % (Auto) 0.200 Neut % (Auto) 66.8 Lymph % (Auto) 16.3 L Eastland % (Auto) 7.6 Eos % (Auto) 8.7 H Baso % (Auto) 0.4 Absolute Neuts (auto) 3.2 Absolute Lymphs (auto) 0.79 L Nucleated RBC % 0.6 Sodium 140 Potassium 4.0 Chloride 96 L Carbon Dioxide 28.8 Anion Gap 16 H BUN 27 H Creatinine 7.43 H* Est GFR (MDRD) Non-Af 6 L BUN/Creatinine Ratio 3.6 L Glucose 115 H Calcium 8.7 Troponin T High Sens 63 H* Troponin T Hi Sens 2 Hr 64 H* . 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 Suspect patient's troponin is elevated due to the fact she has had bilateral nephrectomy. Will discharge to home. Of note her blood pressure is elevated. Her blood pressure has been labile. She states is either very low or very high. Her director of player personnel and portrait photographer are trying to work a drug regimen that will work for her. Since there is no evidence of endorgan dysfunction, aortic dissection, MD she will be discharged to home to have this treated as an outpatient Radiography Diagnostic Testing: Clinical Impression(s) from Imaging Studies Chest X-Ray 03/28/25 17:30 IMPRESSION: Mild cardiomegaly. Small bibasilar pleural effusions/atelectasis. Reading Location: [facility] Discharge Plan Triage Chief Complaint: Chest Pain Other Complaint: Hypertension ED Provider: Yaniv Aguero Dx/Rx/DC Orders Clinical Impression: Chest pressure, Accelerated essential hypertension, Atherosclerosis of coronaryartery of [place] heart without angina pectoris, ESRD (end stage renal disease) on dialysis, Hyperlipidemia Instructions: ED Chest Pain, Uncertain Cause, ED High Blood Pressure Hypertension Prescriptions: No Action cholecalciferol (vitamin D3) 1,000 unit tablet 1,000 unit PO QDAY sevelamer carbonate 800 mg tablet 800 mg PO TID 30 Days Qty: 90 Patient Comments: 4 tabs tid calcium carbonate [Tums] 200 mg calcium (500 mg) tablet,chewable 400 mg PO BID ipratropium bromide 21 mcg (0.03 %) spray,non-aerosol 2 spray intranasal BID Rx Instructions: administer into each nostril midodrine 10 mg tablet 10 mg PO DAILY levothyroxine 25 mcg tablet 25 mcg PO QDAY warfarin 3 mg tablet 3 mg PO 3XW warfarin 2 mg tablet 2 mg PO QDAY warfarin 5 mg tablet 5 mg PO QDAY Rx Instructions: Managed by PCP Rani-Yahir 0.8 mg tablet 1 tab PO QDAY zolpidem 10 mg tablet 10 mg PO QHS PRN (Reason: insomnia) atorvastatin 10 mg tablet 10 mg PO DAILY Qty: 30 12RF sertraline 50 MG tablet 50 mg PO QHS nitroglycerin 0.4 mg tablet, sublingual 0.4 mg SUBLINGUAL Q5M PRN (Reason: Chest Pain) Qty: 25 2RF digoxin 125 mcg (0.125 mg) tablet 125 mcg PO QODAY Qty: 30 11RF Primary Care Provider: Trevor Vieyra Referrals: Trevor Vieyar MD [Primary Care Provider, [facility]] - 3-5 Days Print Language: Bhutanese Disposition Disposition: Home, Self Care What to do if you have Problems For any increased pain, shortness of breath, bleeding, nausea or vomiting, chestpain, or any unexpected problems, contact your Primary Care Provider. Call [facility] ([phone]) or report to the closest Emergency Room. Call 911 if necessary. 03/28/252153 <Electronically signed by Yaniv Aguero MD> Cosigner Signature (if applicable): CC: Dr. Trevor Vieyra MD ~ Signed ADDENDUM by Dr. Yaniv Aguero MD on 03/28/25 at 2155 EKG normal sinus rhythm rate of 71. VA interval intervals under 76 ms QRS duration 84 ms. QT duration Forner 72 ms axis is normal. Patient has some nonseptic ST-T wave changes. No acute ischemic changes. Unchanged from prior 03/28/252154<Electronically signed by Yaniv Aguero MD> Cosigner Signature (if applicable): cc: Dr. Trevor Vieyra MD ~* Signed [facility] Work Phone: 1(391) 197-271709-08-2025 Telephone encounter Note* Telephone Encounter - Mary Ellen Sharif - 03/18/2025 1:51 PM EDT Per secure chaat pt needing 1yr fu w JKS, and in office device check DANA bob fu 07/01/25 [id number]* Diagnosis Onset Date Resolution Status Admit Date History of DVT (deep vein thrombosis) acute October 11, 2024 9:07am Hypotension acute October 11 9:07am Paroxysmal atrial fibrillation acute October 11, 2024 9:07am History of implantable cardiac defibrillator (ICD) November 22, 2019 chronic Apri l 2024 9:07am Hyperlipidemia chronic October 11, 2024 9:07am History of coronary artery stent placement April 22, 2016 resolved October 11 9:07am [facility] Work Phone: 1(177) 976-937103-31-2025 Hospital Discharge instructions Additional Instructions Take the digoxin every other day starting 2 days from now. You will need to have a digoxin level checked. Follow-up with your portrait photographer in approximately 2 to 3 weeks. Return with elevated heart rate, new or worsening symptoms.[facility] Work Phone: 1(731) 244-870703-10-2025 Discharge summary [facility] Medical Records Department [address] [place] [address] Emergency Department Summary 09/17/24 MR#: [id number] Acct: [id number] Name: SPENCER REDDING Rep #:[id number] : 1965 59 From: Marques Peace MD [...] on Coumadin which she takes for DVTs. [facility] Medical History Polycystic kidney disease Sudden cardiac Hypertriglyceridemia Hyperlipidemia History of torsades de pointes Atherosclerosis of coronary artery of [place] heart without angina pectoris Syncope and collapse [...] 03/15/23 History belladonna alkaloids-opium 16.2 1 supp VA TID PRN pain 7 days #12 01/30/22 [...] 111 68 Pulse Ox 99 95 MDM [facility] MDM Narrative Medical decision making narrative: Differential [...] (Auto) 68.7 Lymph % (Auto) 18.8 L Eastland % (Auto) 6.6 Eos % (Auto) 5.2 [...] 16:28 IMPRESSION: Stable chest radiograph. Reading Location: [facility] Management Discussion w/another healthcare provider: Duplicating Machine Operator (Dr. Vega, cardiology) Discharge Plan Triage Chief Complaint: Chest Pain ED Provider: Marques Peace Dx/Rx/DC Orders Clinical Impression: Atrial fibrillation with rapid ventricular response, ESRD (end stage renal disease) on dialysis, prison current use of anticoagulant Instructions: ED AFIB [...] belladonna alkaloids-opium 16.2-30 mg suppository 1 supp VA TID PRN (Reason: pain) 7 Days Qty: [...] a digoxin level checked. Follow-up with your portrait photographer in approximately2 to 3 weeks. Return with elevated heart rate, new or worsening symptoms. Print Language: Bhutanese Disposition Disposition: Home, Self Care What to do if you have Problems For any increased pain, shortness of breath, bleeding, nausea or vomiting, chestpain, or any unexpected problems, contact your Primary Care Provider. Call [facility] ([phone]) or report tothe closest Emergency Room. Call 911 if necessary. 09/17/24 5241 Cosigner Signature (if applicable): CC: Dr. Trevor Vieyra MD ~ Signed [facility]03-10-2025 Radiology Diagnostic study note [facility] Imaging Services [address] [place] [address] Chest 1 View (Portable) MR#: [id number] Acct: [id number] Name: SPENCER REDDING Rep #: [id number] : 1965 F 59 From: Joycelyn Hernandez MD PCP: Dr. Trevor Vieyra MD Status: PRE ER Study:Chest 1 View (Portable) Date of Exam: 09/17/24 Exam# [id number] Ordering Dr: Marques Peace MD PROCEDURE: CHEST [...] (Portable) IMPRESSION: Stable chest radiograph. Reading Location: [facility] CC: Dr. Marques Peace MD; Dr. Trevor Vieyra MD ~ Clearing Distribution Clerk: Signed [facility]03-10-2025 Discharge summary Author Marques Peace [facility] Note Date/Time September 17, 2024 6:2 1pm [facility] Medical Records Department [address] [place] [address] Emergency Department Summary 09/17/24 MR#: [id number] Acct: [id number] Name: SPENCER REDDING Rep #:[id number] : 1965 59 From: Marques Peace MD [...] rate a few months ago, just before [place]. They never found what was going on. She states that EMS had have her do Valsalva maneuvers which alleviated her rapid heart rate. However, they tried this multiple times at dialysis without resolution. 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 [facility] Medical History Polycystic kidney disease Sudden cardiac Hypertriglyceridemia Hyperlipidemia History of torsades de pointes Atherosclerosis of coronary artery of [place] heart without angina pectoris Syncope and collapse [...] 03/15/23 History belladonna alkaloids-opium 16.2 1 supp VA TID PRN pain 7 days #12 01/30/22 [...] (Auto) 68.7 Lymph % (Auto) 18.8 L Eastland % (Auto) 6.6 Eos % (Auto) 5.2 [...] 16:28 IMPRESSION: Stable chest radiograph. Reading Location: [facility] Management Discussion w/another healthcare provider: Duplicating Machine Operator (Dr. Vega, cardiology) Discharge Plan Triage Chief Complaint: Chest Pain ED Provider: Marques Peace Dx/Rx/DC Orders Clinical Impression: Atrial fibrillation with rapid ventricular response, ESRD (end stage renal disease) on dialysis, prison current use of anticoagulant Instructions: ED AFIB [...] belladonna alkaloids-opium 16.2-30 mg suppository 1 supp VA TID PRN (Reason: pain) 7 Days Qty: [...] a digoxin level checked. Follow-up with your portrait photographer in approximately2 to 3 weeks. Return with elevated heart rate, new or worsening symptoms. Print Language: Bhutanese Disposition Disposition: Home, Self Care What to do if you have Problems For any increased pain, shortness of breath, bleeding, nausea or vomiting, chestpain, or any unexpected problems, contact your Primary Care Provider. Call [facility] ([phone]) or report to the closest Emergency Room. Call 911 if necessary. 09/17/24 1821 <Electronically signed by Marques Peace MD> Cosigner Signature (if applicable): CC: Dr. Trevor Vieyra MD ~ Signed [facility] Work Phone: [phone]) 590-551412-30-2024 History of Present illness Narrative* Gilberto Vieyra MD - 07/09/2024 10:00 AM EST [facility] Cardiology Note Chief Complaint: Chief [...] to 4 weeks she has been hypertensive. Bsset757/70. No trouble at the ICD site. Device interrogations are reviewed demonstrating good sensing and impedance and no significant arrhythmia. Past Medical History: Past Medical History: Diagnosis Date Abnormal EKG CAD (coronary artery disease) Cardiac arrest ([facility]) Chest pain, unspecified CHF (congestive heart failure) ([facility]/HCC) ([facility]) Chronic kidney disease Depression DVT (deep venous thrombosis) ([facility]) 2006 Left below knee End stage renal disease on dialysis ([facility]) Endocarditis Hypertension Left ventricular dysfunction Osteoarthritis Presence [...] CORONARY ANGIOPLASTY WITH STENT PLACEMENT Left 04/21/2016 [facility] Left 12/23/2015 CAMEL[facility] AVG [...] Comments), Severe N/V Penicillins Hives and Rash Milan Extract Nausea And Vomiting and Rash Other reaction(s): Vomiting, Vomiting Etodolac Rash Sevelamer Other reaction(s): GI Upset, Nausea, Unknown Sulfamethoxazole-Trimethoprim Rash Other reaction(s): GI Upset Tramadol Rash Other reaction(s): Intolerance, Nausea Sulfamethoxazole Other reaction(s): Rash Trimethoprim Other reaction(s): Rash Medications: Current Outpatient Medications: atorvastatin (Lipitor) 40 MG tablet, Take 40 mg by mouth Nightly. for cholesterol, Disp: , Rfl: B Tsazwta-K-Crntq Acid (RANI-YAHIR PO), Take 1 tablet by [...] hypertensive beta-genesis is being added by her director of player personnel. From a rhythm standpoint she is doing well we will see her yearly documented in this [facility]08-05-2024 NoteHNO ID: [id number] Author: LUCAS RUFF RN Service: ? Author Type: Registered Nurse Type: Progress Notes Filed: 02/13/2024 13:26 Note Text: [facility] POPULATION HEALTH NAVIGATION OUTREACH Action/FYI Patient Identified by Name and : Yes, via phone Reason for Outreach Attribution: Attribution review/confirmation Care Gap Reviewed:: Outreach Outcome/Action Unable to reach patient: Left message Population Health Navigation Workflow Attribution Payer: [facility] Navigation Signature: Lucas Ruff RN February 13, 2024 1:25 [facility]08-05-2024 History of Present illness Narrative* Lucas Ruff RN - 02/13/2024 1:25 PM EDT [facility] POPULATION HEALTH NAVIGATION OUTREACH Action/FYI Patient Identified by Name and : Yes, via phone Reason for Outreach Attribution: Attribution review/confirmation Care Gap Reviewed:: Outreach Outcome/Action Unable to reach patient: Left message Population Health Navigation Workflow Attribution Payer: [facility] Navigation Signature: Lucas Ruff RN February 13, 2024 1:25 PM [facility] NotePatient Outreach (AGACM) SPENCER REDDING ([id number]) 1965 F Date Time Provider Department 02/13/24 LUCAS RUFF [facility] During your visit today, we recorded the following information about you: Lucas Ruff RN 02/13/2024 1:26 PM Signed [facility] POPULATION HEALTH NAVIGATION OUTREACH Action/FYI Patient Identified by Name and : Yes, via phone Reason for Outreach Attribution: Attribution review/confirmation Care Gap Reviewed:: Outreach Outcome/Action Unable to reach patient: Left message Population Health Navigation Workflow Attribution Payer: [facility] Navigation Signature: Lucas Ruff RN February 13, [...] Visit: Population Health Navigation Outreach [3910] Cmt: [facility] Attributed Member - Added to Attribution List [...] (HCC) [Z99.2] 09/08/2007 DVT (deep venous thrombosis) ([facility]) [I82.409] 07/11/2006 End-stage renal disease (HCC) [N18.6] 05/03/2016 History of thrombosis [Z86.718] 05/03/2016 Mixed hyperlipidemia [E78.2] 02/17/2023 Left flank pain [R10.9] 02/28/2023 Encounter Status:Closed by LUC[facility] RUFF [facility]24[facility] History of Present illness Narrative* Gilberto Vieyra MD - 06/20/2023 9:00 AM EST [facility] Cardiology Note Chief Complaint: Chief [...] Chest pain, unspecified CHF (congestive heart failure) ([facility]/HCC) (HCC) Chronic kidney disease Depression DVT (deep venous thrombosis) ([facility]) 2006 Left below knee End stage renal disease on dialysis (HCC) Endocarditis Hypertension Left ventricular dysfunction Osteoarthritis Presence [...] CORONARY ANGIOPLASTY WITH STENT PLACEMENT Left 04/21/2016 [facility] FISTULA CREATION Left 12/23/2015 CAMELIA AVG [...] Comments), Severe N/V Penicillins Hives and Rash Milan Extract Nausea And Vomiting and Rash Other reaction(s): Vomiting, Vomiting Etodolac Rash Sevelamer Other reaction(s): GI Upset, Nausea, Unknown Sulfamethoxazole-Trimethoprim Rash Other reaction(s): GI Upset Tramadol Rash Other reaction(s): Intolerance, Nausea Sulfamethoxazole Other reaction(s): Rash Trimethoprim Other reaction(s): Rash Medications: Current Outpatient Medications: atorvastatin (Lipitor) 40 MG tablet, Take 40 mg by mouth Nightly. for cholesterol, Disp: , Rfl: B Kswhaxv-G-Jskkk Acid (RANI-YAHIR PO), Take 1 tablet by mouth in the morning., Disp: , Rfl: calcium carbonate (Tums Ultra) 1000 MG chewable tablet, Chew 1,000 mg in the morning., Disp: , Rfl: cholecalciferol (Vitamin D-3) 50 MCG (1999 UT) capsule, Take by mouth daily., Disp: [...] between 2 and 3. documented in this [facility]12-06-2023 Procedure [facility]11-02-2023 Telephone encounter Note* Telephone Encounter - Jaquelin Moyer RN - 05/12/2023 9:22 AM EDT Patient came to office today. Thought both JKS and Clinic appts were today. Will check device. [facility] app[facility] to be rescheduled [id number] Miscellaneous Notes* Telephone Encounter - Jaquelin Moyer RN - 05/12/2023 9:22 AM EDT Patient came to office today. Thought both [facility] and Clinic appts were today. Will check device. [facility] appt to be rescheduled * Telephone Encounter - Amy Terry RN - [...] send certified letter? Ty documented in this [facility]SReg[facility] [id number] Telephone encounter Note* Telephone Encounter - Amy [...] per website. Maybe send certified letter? Ty [facility]-2515 NoteHNO ID: [id number] Author: Christiano Huntley MD Service: ? Author [...] Unremarkable margins of the resection. 01/28/2022: Cystoscopy: [place] appearing bladder, blood emanating from the right ureteral orifice 02/15/2020: Cystoscopy and pyelograms: (-). 2017: Coronary stents x 5 09/02/2015: Cystoscopy and pyelograms: Negative 06/27/2015: Right upper extremity fistula 07/11/2007: Left upper extremity fistula 2004: DVT without PE No results found for this basename: uglucpoc,ubilipoc,uketonpoc,usgpoc,uhbpoc,uphpoc,upropoc,uuropoc,unitpoc,uw bcpoc,ucolpoc,[facility] @[email or web address]@ [email or web address] ALLERGIES Allergen Reactions Penicillins Hives, Rash Milan Vomiting, Rash Etodolac Rash Sevelamer GI Upset [...] disease) on dialysis (HCC) MWF/[facility] [place] [phone] History of coronary artery stent placement 04/22/2016 Hx of cardiovascular stress test 2016 negative for ischemia, EF 70% Hx of echocardiogram 02/2017 EF 60% moderate LVH, no valvular abnormalities- received from [facility]- on hard chart Hx of sudden [...] visit. General appearance: We (more content not included)...[facility] 04-28-2023 History of Present illness Narrative* Christiano [...] Unremarkable margins of the resection. 01/28/2022: Cystoscopy: [place] appearing bladder, blood emanating from the right ureteral orifice 02/15/2020: Cystoscopy and pyelograms: (-). 2017: Coronary stents x 5 09/02/2015: Cystoscopy and pyelograms: Negative 06/27/2015: Right upper extremity fistula 07/11/2007: Left upper extremity fistula 2004: DVT without PE No results found for this basename: uglucpoc,ubilipoc,uketonpoc,usgpoc,uhbpoc,uphpoc,upropoc,uuropoc ,unitpoc,uwbcpoc,ucolpoc,uclarpoc @[email or web address]@ [email or web address] ALLERGIES Allergen Reactions Penicillins Hives, Rash Milan Vomiting, Rash Etodolac Rash Sevelamer GI Upset [...] disease) on dialysis (HCC) MWF/[facility] [place] [phone] History of coronary artery stent placement 04/22/2016 Hx of cardiovascular stress test 2017 negative for ischemia, EF 70% Hx of echocardiogram 02/2017 EF 60% moderate LVH, no valvular abnormalities- received from [facility]- on hard chart Hx of sudden [...] extrapolated by contextual derivation. documented in this encounterWayne [facility]09-06-2023 Discharge summary Author Salas Basilio [facility] March 16, 2023 6:09pm Note Date/Time March 16, 2023 2:37pm [facility] Medical Records Department [address] [place] [address] Emergency Department Summary 03/16/23 MR#: [id number] Acct: [id number] Name: SPENCER REDDING Rep #:[id number] : 1965 57 From: Salas Basilio MD [...] had her left kidney taken out at [facility] due to chronic discomfort in the area. [...] not focal or limited to one side. [facility] Medical History Atherosclerosis of coronary artery of [place] heart without angina pectoris Benign essential hypertension [...] 16.2 mg-30 mg rectal suppository 1 supp VA TID PRN pain 7 days #12 ea [...] 73.2 H Lymph % (Auto) 10.8 L [place] % (Auto) 4.6 Eos % (Auto) 10.2 [...] ectopy. No acute ST elevation or depression. VA interval, QRS duration are normal. QTc is [...] belladonna alkaloids-opium 16.2-30 mg suppository 1 supp VA TID PRN (Reason: pain) 7 Days Qty: [...] your Primary Care Provider. Call [facility] ([phone]) or report to the closest Emergency Room. Call 911 if necessary. 03/16/23 180 <Electronically signed by Saals Basilio MD> Cosigner Signature (if applicable): CC: Dr. Trevor Vieyra MD ~ Signed [facility] Work Phone: 1(356) 238-763908-29-2023 Miscellaneous Notes* Telephone Encounter - Andrea Madden RN - 03/08/2023 3:35 PM EDT PATIENT INFORMATION Record ID: [id number] Patient Name: [facility] [place]: [facility] [place] Attending: Christiano Huntley Center: Urology INSTRUCTIONS All Clear If patient has a CC Physician- transfer to Appointment Center at [phone] at end of script Ifpatient has [facility] Physician- transfer to [place] [facility] [phone] (CARE) If patient has a [facility] physician, transfer to [facility]; Any other physician recommend patient follow-up with their physician at the end of script All Clear All Clear All Clear SURVEY INFORMATION Medical/Nurse Manager Winter: Andrea Madden 1. Your discharge instructions are [...] symptoms? (Standard Question) No documented in this encounterWayne Healthcare [facility] Campus08-24-2023 NoteHNO ID: [id number] Author: Jaquelin Tinoco RN Service: Care Management [...] HD at [facility] tomorrow. Patient is in agreement with plans. Her daughter will be picking her up. Discussed again with patient that if she has issues finding transport for HD sessions that she can utilize her [facility] transport benefit and will need to schedule transport 48 hrs in advance. IMM Follow Up Copy Given: Yes Copy given to:: Patient Method: In Person SIGNATURE: Jaquelin Tinoco RN PATIENT NAME: Spencer Reddnig DATE: March 03, 2023 TIME: 11:28 AM CONTACT #: [id number]2023 NoteHNO ID: [id number] Author: Sandip Allen MD Service: Urology Author Type: Resident Type: Progress Notes Filed: 03/03/2023 8:15 AM Note Text: Attestation signed by Silverio Reaves MD at 03/03/2023 5:06 PM Urology Attending Attestation: Discussed with the resident and agree with resident's findings and plan as documented in the resident's note. Silverio Reaves MD [facility] [place] [facility] UROLOGY PROGRESS NOTE PATIENT NAME: Spencer Redding [...] k/uL <0.01 <0.01 <0.01 <0.01 Urinalysis: Specific [place], Ur Date Value Ref Range Status 01/17/2020 [...] PGY-5 March 03, 2023 8:13 AM Page automation controls specialist resident with [facility]08-23-2023 Note HNO ID: [id number] Author: Maurice Acevedo DO Service: Nephrology Author Type: Physician Type: Progress Notes Filed: 03/02/2023 1:31 PM Note Text: NEPHROLOGY PROGRESS NOTE PATIENT NAME: Spencer Redding ROOM: [id number]/[facility]* SERVICE DATE: 03/02/2023 SERVICE TIME: 1:25 PM LENGTH OF STAY: 2 day(s) REFERRING PHYSICIAN: Christiano Huntley MD PRIMARY CARE PHYSICIAN: Trevor Vieyra MD OUTPATIENT VACUUM FRAME OPERATOR: Keyanna Castellanos MD Subjective/HPI Patient was seen [...] Oral 62 17 96 % -- -- 02/28/231916 -- -- -- -- -- -- 158.8 cm (5' 2.5) 87.1 kg (192 lb 0.3 oz) 02/28/231914 (!) 101/43 36.4 ?C (97.5 ?F) Oral 67 18 98 % -- -- 02/28/231850 -- -- -- 66 18 96 % -- -- 02/28/231849 104/53 -- -- 65 14 95 % -- -- 02/28/231844 101/51 -- -- 64 12 93 % -- -- 08/21/23 1840 97/52 -- -- 63 12 93 % -- -- 02/28/23 1830 (!) 95/38 -- -- 63 15 94 % -- -- 02/28/23 1822 (!) 10148 -- -- 70 14 96 % -- -- 02/28/23 1820 (!) 48 -- -- 67 16 96 % -- -- 02/28/23 1815 (!) -- -- 68 13 94 % -- -- 02/28/23 181 (!) -- -- 69 19 93 % -- -- 02/28/23 1800 (!) 83/44 -- -- 66 17 94 % -- -- 02/28/23 1752 (!) 95/46 36.3 ?C (97.3 ?F) Temporal 65 14 94 % -- -- 02/28/23 1745 (!) 44 -- -- 67 16 94 % -- -- 02/28/23 1739 (!) 98 -- -- 66 16 94 % -- -- 02/28/23 1733 -- -- -- 69 19 96 % -- -- 02/28/23 1730 (!) 99 -- -- 66 15 94 % -- -- 02/28/23 1725 (!) -- -- 68 18 94 % -- -- 02/28/23 1721 (!) -- -- 68 19 94 % -- -- 02/28/23 1715 (!) -- -- 72 14 93 % -- -- 02/28/23 1707 -- -- -- 70 17 93 % -- -- 02/28/23 1700 (!) 99 -- -- 71 17 92 % -- -- 02/28/23 1659 (!) 11642 36.2 ?C (97.2 ?F) Temporal 70 19 [...] to B/L LEs Recent Labs: Recent Labs 03/02/2322103/01/23 0548 02/28/23 1216 NA 133* 139 138 K 4.0 4.8 4.7 CHLOR 93* 98 96* CO2 26 23 26 BUN 34* 41* 37* CREAT 10.27* 12.22* 11.91* GLUC 99 95 86 ANION 14 18 16 CA 7.4* 8.2* 9.4 P -- 7.5* -- No results for input(s): LACT, AST, ALT, TBILI, DIRBILI in the last 168 hours. No results for input(s): PTH, WGUEFJLE13R, TSHREFL, URICACID, AMM, VANCORA in the last 2160 hours. Recent Labs 03/02/2322103/01/23 0548 02/28/23 1216 WBC 7.49 6.21 6.35 [...] Medication Dose Route Frequency (more content not included)...[facility]08-23-2023 NoteHNO ID: [id number] Author: Kimberlyn Reaves RN Service: ? Author Type: Registered Nurse Type: Progress Notes Filed: 03/02/2023 12:34 PM Note Text: Hemodialysis completed, pt tolerated well. See flow sheet. Fluid balance -1900 [facility]08-23-2023 NoteHNO ID: [id number] Author: Sandip Allen MD Service: Urology Author [...] k/uL <0.01 <0.01 <0.01 <0.01 Urinalysis: Specific [place], Ur Date Value Ref Range Status 01/17/2020 [...] PGY-5 March 02, 2023 6:44 AM Page automation controls specialist resident with [facility]08-22-2023 Note HNO ID: [id number] Author: Jaquelin Tinoco RN Service: Care Management Author Type: Registered Nurse Type: Care Mgt Initial Assessment Filed: 03/01/2023 3:46 PM Note Text: CARE MANAGEMENT: ASSESSMENT AND DISCHARGE PLAN SERVICE DATE: March 01, 2023 SERVICE TIME: 3:18 PM PCP: Trevor Vieyra MD Primary Contact: Extended Emergency Contact Information Primary Emergency Contact: Jaquelin Redding Mobile Relation: Daughter Admission Status: Inpatient Insurance Provider: [facility]ICARE Discharge Planning requested by: Per Department Practice Potential Transition Plans Home Advance Directives Current Advance Directive: Health Care Power of Consulting Sme In Chart: Yes Up To Date and Valid: Yes Current Living Arrangements and Support Lives with: Children Type of Residence: Private Residence (Apartment or Condo) Support: Family members How do you manage to accomplish the following: Independent: Ambulation;Bathe/Shower;Dress;Meals/Meal Prep;Going to the bathroom;Medication Management;Transportation to appointments/community Current Services/Equipment Current Post-Acute Service(s): DME, Dialysis Current DME Type: Cane Current Post-Acute Service(s) Provider: Yesi Crian Discharge Planning Patient Goal(s): Be able to go home, General wellness [place] of [place] Explained: [place] of [place] Given: No Reason Not Given: [...] is from home with her daughter. 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 Patient is active [...] 01, 2023 TIME: 3:40 PM CONTACT #: [phone]08-[facility]-2023 Note HNO ID: [id number] Author: Gabrielle Sotomayor RN Service: Dialysis Author Type: Registered Nurse Type: Progress Notes Filed: 03/01/2023 12:45 PM Note Text: Tolerated 3 hr tx well, net UF 2000 ml. See scanned treatment sheet for details.[facility]08-22-2023 NoteHNO ID: [id number] Author: Maurice Acevedo DO Service: Nephrology Author Type: Physician Type: Plan of Care Filed: 03/01/2023 7:48 AM Note Text: Brief nephrology note Patient's primary director of player personnel Dr. Castellanos provided notice that patient is currently hospitalized - [facility] will assume nephrology care of this patient. We will continue to follow along with you. Please text/call/page with any questions or concerns. Maurice Acevedo DO Nephrology [facility] ([facility]) Pager: [phone] Office Office Electronically Signed on 03/01/2023 at 7:47 AMB[facility]gton [facility] 03-01-2023 NoteHNO ID: [id number] Author: Christiano Huntley MD Service: Urology Author [...] k/uL <0.01 <0.01 <0.01 <0.01 Urinalysis: Specific [place], Ur Date Value Ref Range Status 01/17/2020 [...] RA left radical nephrectomy PLAN: -Continue hemodialysis t/th/s -Continue IV fluids at 100 mL/hr -Pain control with tylenol/hydromorphone/oxycodone as ordered -Diet: Regular -Incentive spirometry -Ambulate with assistance Jere Head- Medical Student Doing well Sleeping but arousable [...] PGY-5 March 01, 2023 7:16 AM Page automation controls specialist resident with questions I evaluated the patient. Discussed with the resident and agree with resident's findings and plan as documented in the resident's note.[facility]08-21-2023 NoteHNO ID: [id number] Author: Georgette Harevy RN Service: Nursing Author Type: Registered Nurse Type: Nursing Progress Note Filed: 02/28/2023 6:31 PM Note Text: Dr. Scott at bedsideBridgton Hospital08-21-2023 NoteHNO ID: [id number] Author: Georgette Harvey RN Service: Nursing Author Type: Registered Nurse Type: Nursing Progress Note Filed: 02/28/2023 6:19 PM Note Text: Pt instructed on use of IS, able to return demonstrate proper use.[facility]08-21-2023 NoteHNO ID: [id number] Author: Georgette Harvey RN Service: Nursing Author Type: Registered Nurse Type: Nursing Progress Note Filed: 02/28/2023 6:05 PM Note Text: Dr. Scott in to see pt. Sat's 92-94 on 3liters, BP 80's. Pt asymptomatic. New orders receivedBridgton Hospital08-21-2023 NoteHNO ID: [id number] Author: Sugar Rhodes APRN.SENIOR ELECTRICAL CONTROLS ENGINEER Service: Anesthesiology Author Type: Nurse Recreation Coordinator Type: Anesthesia Procedure Notes Filed: 02/28/2023 1:28 PM Note Text: ANESTHESIOLOGY PROCEDURE NOTE Airway General Information Procedure Start Time/Medication Administration: 02/28/2023 12:53 PM Patient location during procedure: OR Consent Obtained: Yes Patient identity confirmed: arm band Staffing Anesthesiologist: Jeremy Scott DO SENIOR ELECTRICAL CONTROLS ENGINEER: Sugar Rhodes APRN.SENIOR ELECTRICAL CONTROLS ENGINEER Performed by: ROSELYN Indications and Patient Condition [...] no Airway not difficult SIGNATURE: Sugar Rhodes APRN.SENIOR ELECTRICAL CONTROLS ENGINEER PATIENT NAME: Spencer Redding DATE: February 28, 2023 TIME: 1:27 PM CSN: [id number]-2023 NoteHNO ID: [id number] Author: Mayda Jaramillo APRN.CNP Service: General Surgery Author Type: Nurse Practitioner Type: Progress Notes Filed: 02/22/2023 12:50 PM Note Text: Summary: PAT LM for Laya at Dr. Huntley's office asking for cardiac and medical optimization to be scanned in [facility]. Richelle please follow up.[facility]08-11-2023 Miscellaneous Notes* Telephone Encounter - Laya Alonzo [...] for nephrectomy as planned documented in this encounterWayne Healthcare Main Campus08-11-2023 History and physical note * Licha Hoffmann, ANDI.COAL WHEELER - 02/18/2023 8:40 AM EDT HISTORY AND [...] COVID-19 original vaccine, age 12+ yr, monovalent ([employer]- [employer] - [facility]) CHIEF COMPLAINT: Polycystic kidney, Preopeartive evaluation HPI: 57 year old female presents for presurgical testing. She has been diagnosed with polycystic kidney disease. She has been on hemodialysis for 15 years. She receives hemodialysis Tuesday, Tuesdayand Tuesday at [facility] in [place]. She has a left upper arm graft. [...] (followed by [facility]. Recommendations in epic), anticoagulation therapy, CAD and hypertension Patient's last office visit with portrait photographer, Dr. Garvin, was February 2023. Negative for: [...] ESRD (end stage renal disease) on dialysis ([facility]) MWF/[facility] in [place] [phone] History of coronary artery stent placement 04/22/2016 Hx of cardiovascular stress test 2016 negative for ischemia, EF 70% Hx of echocardiogram 02/2017 EF 60% moderate LVH, no valvular abnormalities- received from [facility]- on hard chart Hx of sudden [...] found. ALLERGIES Allergen Reactions Penicillins Hives, Rash Milan Vomiting, Rash Etodolac Rash Sevelamer GI Upset [...] or any previous visit (from the past 53946 hour(s)). Assessment Implantable Devices: AICD Blood thinners: [...] mouth once daily. Ordered per surgeon in [facility]: Urine culture, type and screen H&H 14.2/42.6 02/07/23 at [facility]. Results on chart. [facility] 01/17/23 from [facility] reviewed Pt. Reports she is anuric and she is unable to give urine sample Pt. Reports labs to be drawn again 02/21 at dialysis I spent a total of 65 minutes on the date of the service which included preparing to see the patient, dxif-[id number] patient care, completing clinical documentation, obtaining and/or [...] AICD 06/2016; generator change 2019 Managed by [facility] and [facility] cardiologyGilberto. Remote device check 01/21/23. Report in [facility]. Device recommendations in [facility] Atherosclerosis of coronary artery Stable. Denies cardiac symptoms Hx of coronary artery stent 2015 Medically managed. Advised to continue same medication and take day of surgery. Cardiac clearance is pending Mixed hyperlipidemia Statin. Advised to continue same medication and take day of surgery. End-stage renal disease (HCC) Hemodialysis Tuesday [facility] Ch[facility]vez Activity Status Index: METS: Climb a [...] cardiology, primary care/internal medicine and renal (in [facility]). Planned Anesthetic: general The Following Tests/Procedures Have [...] 7:55 AM PAGER/CONTACT #: documented in this encounterWayne Healthcare Main Campus08-09-2023 Telephone encounter Note * Telephone Encounter - Barbra Clark - 02/16/2023 2:55 PM EDT Faxed over per their request latest interrogation. [facility] [id number] Miscellaneous Notes* Telephone Encounter - Barbra Clark - 02/16/2023 2:55 PM EDT Faxed over per their request latest interrogation. documented in this encounterSRegency Hospital [id number] Instructions* Patient Instructions* Licha Hoffmann APRN.CNP - 02/16/2023 2:00 PM EDT PATIENT PREOPERATIVE INSTRUCTIONS Christiano Huntley MD has scheduled you for your procedure at this surgery center: [facility]: [phone], [address] [id number] Please read below carefully for your personalized [...] surgery. - YOU MUST HAVE A RESPONSIBLE SEDIMENTATIONIST TAKE YOU HOME. A SECONDARY SOCIAL STUDIES TEACHER, CAB OR UBER SEDIMENTATIONIST CANNOT BE MADEA RESPONSIBLE SEDIMENTATIONIST. - We recommend that a responsible person [...] day of surgery. -[facility] should bring their walker into the building. -[facility] as to be admitted should leave [...] Advance Directive, please fax a copy to [phone] or email to for it to be [...] into your chart that day. Licha Hoffmann APRN.ALFA documented in this encounterWayne Healthcare Main Campus08-09-2023 NoteHNO ID: [id number] Author: Shanika Ewing RT(Lelia) Service: ? Author Type: Freight Coordinator Type: Progress Notes Filed: 02/16/2023 1:50 PM [...] BY: RT Yg(Lelia) February 16, 2023 1:50 [facility]08-09-2023 History of Present illness Narrative* Shanika Ewing [...] BY: RT Yg(Lelia) February 16, 2023 1:50 PM documented in this encounterWayne Healthcare Main Campus08-09-2023 Miscellaneous Notes* Result Encounter Note - Christiano Huntley MD - 02/16/2023 8:20 AM EDT Here are the test results.Keep follow up appointment for nephrectomy as planned documented in this encounterWayne Healthcare Main Campus08-03-2023 NoteHNO ID: [id number] Author: Christiano Huntley MD Service: ? Author [...] Unremarkable margins of the resection. 01/28/2022: Cystoscopy: [place] appearing bladder, blood emanating from the right ureteral orifice 02/15/2020: Cystoscopy and pyelograms: (-). 2017: Coronary stents x 5 09/02/2015: Cystoscopy and pyelograms: Negative 06/27/2015: Right upper extremity fistula 07/11/2007: Left upper extremity fistula 2004: DVT without PE No results found for this basename: uglucpoc,ubilipoc,uketonpoc,usgpoc,uhbpoc,uphpoc,upropoc,uuropoc,unitpoc, bcpoc,ucolpoc,[facility] @KATTY@ ALLERGIES ALLERGIES Allergen Reactions Penicillins Hives, Rash Milan Vomiting, Rash Etodolac Rash Sevelamer GI Upset [...] moderate LVH, no valvular abnormalities- received from [facility]- on hard chart Hyperlipidemia Hypertension Polycystic [...] the patient's laborat (more content not included)... [facility]08-03-2023 History of Present illness Narrative* Christiano Huntley [...] Unremarkable margins of the resection. 01/28/2022: Cystoscopy: [place] appearing bladder, blood emanating from the right ureteral orifice 02/15/2020: Cystoscopy and pyelograms: (-). 2017: Coronary stents x 5 09/02/2015: Cystoscopy and pyelograms: Negative 06/27/2015: Right upper extremity fistula 07/11/2007: Left upper extremity fistula 2004: DVT without PE No results found for this basename: uglucpoc,ubilipoc,uketonpoc,usgpoc,uhbpoc,uphpoc,upropoc,uuropoc ,unitpoc,uwbcpoc,ucolpoc,uclarpoc @KATTY@ ALLERGIES ALLERGIES Allergen Reactions Penicillins Hives, Rash Milan Vomiting, Rash Etodolac Rash Sevelamer GI Upset [...] moderate LVH, no valvular abnormalities- received from [facility]- on hard chart Hyperlipidemia Hypertension Polycystic [...] Radical Nephrectomy, robotic renal cyst decortication Dr. Wegryn PICC LINE PRQ CARDIAC STENT W/ANGIO 1 [...] Level: 4 - Moderate documented in this encounterWayne Healthcare Main Campus09-29-2022 History of Present illness Narrative* Christiano Huntley [...] Unremarkable margins of the resection. 01/28/2022: Cystoscopy: [place] appearing bladder, blood emanating from the right ureteral orifice 02/15/2020: Cystoscopy and pyelograms: (-). 2017: Coronary stents x 5 09/02/2015: Cystoscopy and pyelograms: Negative 06/27/2015: Right upper extremity fistula 07/11/2007: Left upper extremity fistula 2004: DVT without PE No results found for this basename: uglucpoc,ubilipoc,uketonpoc,usgpoc,uhbpoc,uphpoc,upropoc,uuropoc ,unitpoc,uwbcpoc,ucolpoc,rubirpoc @KATTY@ ALLERGIES ALLERGIES Allergen Reactions Penicillins Hives, Rash Milan Vomiting, Rash Etodolac Rash Sevelamer GI Upset [...] moderate LVH, no valvular abnormalities- received from [facility]- on hard chart Hyperlipidemia Hypertension Polycystic [...] extrapolated by contextual derivation. documented in this encounterWayne Healthcare Main Campus08-20-2022 Miscellaneous Notes* Telephone Encounter - Eduardo - 02/27/2022 1:33 AM EDT Record ID: [id number] Patient name: Spencer Redding Date: February 26, [...] likely is it that you would recommend [facility] to a friend or family member? -> likely Please tell me what you liked best about your hospital experience: -> The nurses were all very kind documented in this encounterWayne Healthcare Main Campus08-17-2022 Miscellaneous Notes* Telephone Encounter - LONG Addison [...] to discuss the results. documented in this encounterWayne Healthcare Main Campus08-15-2022 Miscellaneous Notes* Telephone Encounter - Christiano Huntley MD - 02/22/2022 1:26 PM EDT 02/22/2022: RAL Lap Right Radical Nephrectomy F/u 6 weeks documented in this encounterWayne Healthcare Main Campus08-04-2022 History of Present illness Narrative* Anitha Cobian APRN.COAL WHEELER - 02/11/2022 1:51 PM EDT Patient is oliguric, states she barely urinates once a day. Unable to provide urine sample for urine culture ordered by surgeon. Notified Laya in Dr. Huntley's office whom states she will notify Dr. Huntley. documented in this encounterWayne Healthcare Main Campus08-04-2022 History and physical note * Anitha Cobian APRN.CNP - 02/11/2022 1:40 PM EDT HISTORY AND [...] and hypertension Patient's last office visit with portrait photographer, Dr. Unger , The following tests and/or procedures were performed: cardiac stents (x 6- last stent in 2018). Negative for: arrhythmia, atrial fibrillation, chest pain and CHF. GI: Negative for: abdominal pain, dysphagia, nausea and vomiting. : + polycystic kidney disease + dialysis Mon, Wed, Tue Dialysis for 14 years Positive for: [...] (coronary artery disease) s/p cardiac stent x6 2016; last cardiology visit 12/25/[address] Garvin; pt taking Plavix Depression DVT (deep vein thrombosis) in 2006 pt taking Warfarin ESRD (end stage renal disease) on dialysis (HCC) MWF Hx of cardiovascular stress test 2017 negative for ischemia, EF 70% Hx of echocardiogram 02/2017 EF 60% moderate LVH, no valvular abnormalities- received from [facility]- on hard chart Hyperlipidemia Hypertension Polycystic [...] See Comments, Unknown Unknown Penicillins Hives, Rash Milan Vomiting, Rash Etodolac Rash Sevelamer GI Upset [...] or any previous visit (from the past 33259 hour(s)). Assessment No problem-specific Assessment & Plan [...] at this time: cardiology (letter sent to portrait photographer- pt has stress test and EKG scheduled [...] andEKG next . Instructed to talk to portrait photographer about plavix instructions. CIED - Defibrillator last [...] per surgeon. CONABO and H/H ordered per VENEER TRIMMER. HIBICLENS chlorhexidine gluconate wash given with patient instructions. Instructions Given to Patient: Instructions located in the after visit summary. Patient given verbal and written preop instructions and voices comprehension and compliance. SIGNATURE: Anitha Cobian APRN.CNP PATIENT NAME: Spencer Redding DATE: February 11, 2022 TIME: 7:42 AM PAGER/CONTACT #: documented in this encounterWayne Healthcare Main Campus08-04-2022 Instructions* Patient Instructions* Anitha Cobian APRN.CNP - 02/11/2022 1:40 PM EDT PATIENT PREOPERATIVE INSTRUCTIONS Christiano Huntley MD has scheduled you for your procedure at this surgery center: [facility]: [phone], [address] [id number] Please read below carefully for your personalized [...] be able to go the the surgery welcome center if they have a mask on. [...] surgery. Anitha Cobian APRN.ALFA documented in this encounterWayne Healthcare Main Campus08-01-2022 Miscellaneous Notes* Telephone Encounter - Laya Cordova - 02/08/2022 1:50 PM EDT I called and spoke with patient. She was at dialysis and said she will call me tomorrow morning to confirm so she can check the dates and write everything down. * Telephone Encounter - Laya Cordova - 02/08/2022 11:55 AM EDT RAL Right Radical Nephrectomy Polycystic kidney PST: 02/11/22 1:40 PM [facility] UCX, H&P, T&S Covid Test: 02/19/22 11:00 AM [facility] Surgery: 02/22/22 8:00 AM [facility] Arrive at 6:00 AM Takes Coumadin & Plavix - stop 5 days prior Surgical Clearance: Trevor Vieyra MD (PCP, manages Warfarin)\ Ernesto Unger MD (Undercar Specialist, manages Plavix) Contact patient to confirm surgery. documented in this encounterWayne Healthcare Main Campus07-27-2022 History of Present illness Narrative* Christiano Huntley MD - 02/03/2022 10:38 AM EDT HISTORY OF PRESENT ILLNESS: Spencer Redding is a 56 year old female with complaints of recurrent gross hematuria and polycystic kidneys She has end-stage renal disease 01/28/2022: Cystoscopy: [place] appearing bladder, blood emanating from the right ureteral orifice 02/15/2020: Cystoscopy and pyelograms: (-). 09/02/2015: Cystoscopy and pyelograms: Negative 06/27/2015: Right upper extremity fistula 07/11/2007: Left upper extremity fistula No results found for this basename: uglucpoc,ubilipoc,uketonpoc,usgpoc,uhbpoc,uphpoc,upropoc,uuropoc ,unitpoc,uwbcpoc,ucolpoc,[facility] @KATTY@ ALLERGIES ALLERGIES Allergen Reactions Doxercalciferol Other: See Comments, Unknown Unknown Penicillins Hives, Rash Milan Vomiting, Rash Etodolac Rash Sevelamer GI Upset [...] moderate LVH, no valvular abnormalities- received from [facility]- on hard chart Hyperlipidemia Hypertension Polycystic kidney disease Ventricular tachycardia (HCC) S/P defibrillator 2016 PAST SURGICAL HISTORY Procedure Laterality Date CYST/MOLE [...] She understands that if this happened to returning officer to be a urothelial malignancy that the [...] Level: 4 - Moderate documented in this encounterWayne Healthcare Main Campus07-22-2022 Miscellaneous Notes* Telephone Encounter - Laya Fabian Art - 01/29/2022 12:36 PM EDT Cystoscopy & Pyelogram Gross hematuria PST: 02/22/22 1:40 PM [facility] UCx, H&P Surgery: 03/05/22 12:15 PM [facility] Arrive at 10:15 AM Takes Warfarin & Plavix - stop 5 days prior (cleared to stop both 02/05/20, check w/ Dr. Huntley to see if it is okay to use) Surgical Clearance: Trevor Vieyra MD (PCP, manages Warfarin)\ Ernesto Unger MD (Undercar Specialist, manages Plavix) Contact patient to confirm surgery. documented in this encounterWayne Healthcare Main Campus07-21-2022 Nurse Note* Magali Terrazas LPN - 01/28/2022 [...] Nurse: Magali Terrazas LPN documented in this encounterWayne Healthcare Main Campus07-21-2022 Procedure note* Christiano Huntley MD - 01/28/2022 11:26 AM EDT CYSTOSCOPY PROCEDURE NOTE: Spencer Redding is a 56 year old female who presents with Hematuria gross for cystoscopy. Pt ID verified with patient: Yes Procedure verified with patient: Yes Procedure confirmed with physician and operations support manager: Yes UNIVERSAL PROTOCOL / SAFETY CHECKLIST Procedure to be Performed: [id number] Sign In: A Moment of CARE was [...] extrapolated by contextual derivation. documented in this encounterWayne Healthcare Main Campus07-21-2022 Instructions* Patient Instructions* Magali Terrazas LPN - 01/28/2022 10:41 AM EDT [facility] Department of Urology After your Cystoscopy You [...] clear with drinking extra fluids. Please call [facility] office at [phone] M-F 8:00 am to 5:00pm With any questions you may have and ask for the Triage Nurse After 5:00 pm or weekends [phone] Thank you 05/16/13 KW documented in this encounterWayne Healthcare Main Campus07-19-2022 Miscellaneous Notes* Telephone Encounter - Christiano Huntley MD - 01/26/2022 3:09 PM EDT Need appt * Telephone Encounter - Anastasiia RIOS - 01/26/2022 12:00 PM EDT [place] [facility] called requesting you call their ER physician. Her name is Dr. Padmini Wen and she canbe reached at [phone]. fyi...patient is scheduled for a Cysto with you on 01/28/22. Thank you, Anastasiia Barrett PSS documented in this encounterWayne Healthcare Main Campus07-17-2022 Miscellaneous Notes* Telephone Encounter - Christiano Huntley MD - 01/24/2022 5:48 PM EDT She needs an appt with me * Telephone Encounter - Deb Howard APRN.CNP - 01/22/2022 3:14 PM EDT MRI reviewed Contacted by radiologist. I would like the patient to be seen by Dr. Huntley to discuss the findings and determine if she needs to complete retrograde pyelograms. Please schedule with Dr. Huntley in person or virtual. I contacted the patient regarding her results documented in this encounterWay[facility]-2022 History of Present illness Narrative* Frankie Miller, RT(R) - 01/21/2022 1:00 PM EDT Radiology Service [...] 2022 TIME: 12:26 PM documented in this encounterWayne [facility]07-14-2022 History of Present illness Narrative* RT Addy(R) [...] 21, 2022 10:17 AM documented in this encounterWayne [facility]06-09-2022 Miscellaneous Notes* Telephone Encounter - Dedra Engle RN - 12/17/2021 11:43 AM EDT Patient made aware of message. Aware of plan of care. No other questions. Encounter closed. * Telephone Encounter - Dedra Engle RN - 12/17/2021 11:42 AM EDT ----- Message from Maday Loco APRN.CNP sent at 12/16/2021 4:04 PM EDT ----- Deb is out of the office today. Please let her patient know that the urine culture was negative for an infection Maday Loco APRN.CNP documented in this encounterWayne [facility]06-09-2022 Miscellaneous Notes* Telephone Encounter - Monalisa Delgado [...] mr urogram and cystoscopy. She can call [phone] to schedule. The MR urogram can be done at [place] if that is better for her. Cystoscopy at [place] * Telephone Encounter - Monalisa Delgado - 12/16/2021 4:15 PM EDT Made Spencer aware of her negative urine culture. She would like to know what the next steps are regarding her hematuria. Please advise. documented in this encounterWayne [facility]06-07-2022 History of Present illness Narrative* Deb Howard [...] 91.2 kg (201 lb). ALLERGIES: Doxercalciferol, Penicillins, [place], Etodolac, Sevelamer, Sulfamethoxazole-Trimethoprim, and Tramadol MEDICATIONS: Current [...] moderate LVH, no valvular abnormalities- received from [facility]- on hard chart Hyperlipidemia Hypertension Polycystic [...] -currently on HD -no recent labs in epic - URINE CULTURE Patient is instructed to schedule a follow up based on results Deb Howard APRN.CNP documented in this encounterWayne Healthcare [facility]03-16-2022 Hospital Discharge instructions* Instructions* Michelle Cole RN - 09/23/2021 Fistulagram Hemodialysis Access: What [...] or dog food bags, or a vacuum engine cleaner. Your dressing will be removed at [...] call and ask for the Interventional Radiologist automation controls specialist. Where can you learn more? Go to [email or web address] and sign in to your [employer] account. Enter P616 in the Search Health Information box to learn more about Hemodialysis Access: What to Expect at Home. If you do not have an account, please click on the Sign Up Now link. Current as of: May 26, 2016 Content Version: 11.2 5799-6477 [employer]. Care instructions adapted under license by [employer]. If youhave questions about a medical condition or this instruction, always ask your healthcare professional. [employer] disclaims any warranty or liability for your [...] call and ask for the Interventional Radiologist automation controls specialist. IF YOU REPORT TO AN EMERGENCY ROOM, DOCTOR'S OFFICE OR HOSPITAL WITHIN 24 HOURS AFTER YOUR PROCEDURE, BRING THIS SHEET AND YOUR AFTER VISIT SUMMARY WITH YOU AND GIVE IT TO THE PHYSICIAN OR NURSE ATTENDING YOU. documented in this encounterSUMMA Work Phone: [phone]) 532-189803-16-2022 History of Present illness Narrative* Michelle Cole RN - 09/23/2021 1:49 PM EDT Patient arrived from [facility], Dr. Sauceda in to speak with the [...] IR observation for discharge. documented in this encounterSUMMA Work Phone: [phone]) 630-216212-14-2021 NotePap Smear Specimen AdequacyDecember 2020 10:17amCommentSatisfactory for evaluation. Endocervical and/or squamous metaplasticcells (endocervical component)are present.[facility] INTERFACED A#[id number] [facility] Work Phone: Comment on above:Satisfactory for evaluation. Endocervical and/or squamous metaplasticcells (endocervical component)are present.11-22-2019 Evaluation note* Diagnosis Onset Date Resolution Status Atherosclerosis of coronary artery of [place] heart without angina pectoris chronic Benign essential hypertension chronic History of implantable cardiac defibrillator (ICD) November 22, [address] [facility] Work Phone: [phone] Evaluation note* Diagnosis Onset Date Resolution Status History of DVT (deep vein thrombosis) acute Hypotension acute Atherosclerosis of coronary artery of [place] heart without angina pectoris chronic History of implantable cardiac defibrillator (ICD) November 22, [address] [facility] Work Phone: Consult note Author Ace Worley tr [facility] Note Date/Time March 31, 2025 2:43[facility] Medical Records Department [address] [place] [address] Consultation - Nephrology 03/30/251956 MR#: [id number] Acct: [id number] Name: SPENCER REDDING Rep #:[id number] : 1965 59 From: Ace george MD PCP: Dr. Trevor Vieyra MD Status:ADM IN Location: ICU ICU02-1 Assessment & Plan Assessment/Plan (1) ESRD (end stage renal disease) on dialysis: (2) Benign essential hypertension: PLAN: Plan Assessment/Plan: Patient is a 59-year-old female with past history of ESRD secondary to ADPKD status post bilateral nephrectomies, hypertension, CAD, paroxysmal atrial fibrillation, ventricular tachycardia, hypothyroidism, hyperlipidemia, anemia, major depressive disorder, and generalized anxiety disorder. Patient presented to hospital on 03/29/2025 with chest pain, abdominal pain and dyspnea while she is getting dialysis on 03/29/2025. Patient was also found to have severe hypertension on presentation. Nephrology is asked to see the patient because of ESRD and for dialysis management. ESRD. Patient usually dialyzes on MWF schedule. Patient was dialyzed yesterday on 03/29/2025 prior to admission. There is no hyperkalemia, metabolic acidosis or significant volume overload today. There is no need for dialysis today. Will plan on dialyzing patient on 04/01/2025 on her usual schedule. Hypertension. BP has been as high as 219/69 mmHg when patient presented on 03/28/2025. BP has trended down since admission. Patient is currently on carvedilol 12.5 mg twice daily, losartan 100 mg daily, and chlorthalidone 12.5 mg daily. Chlorthalidone is unlikely to be effective for BP control in the setting of ESRD. Patient is also anephric from bilateral nephrectomy. I would recommend stopping chlorthalidone and starting calcium channel genesis such as amlodipine instead. HPI Consult Data Date of Consult: 03/31/25 HPI Narrative Reason for Consultation: ESRD. 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 Patient presented to hospital on 03/29/2025 with chest pain, abdominal pain and dyspnea while she is getting dialysis on 03/29/2025. Patient was also found to have severe hypertension on presentation. Nephrology is asked to see the patient because of ESRD and for dialysis management. Patient normally dialyzes on MWF schedule. She was dialyzed prior to admission. Patient denies chest pain, dyspnea, or nausea/vomiting. There has been no diarrhea. Patient does complain of cough which is productive for the past 2 weeks. [facility] Medical History Polycystic kidney disease Sudden cardiac Hypertriglyceridemia Hyperlipidemia History of torsades de pointes Atherosclerosis of coronary artery of [place] heart without angina pectoris Syncope and collapse Ventricular fibrillation Ischemic cardiomyopathy ESRD (end stage renal disease) on dialysis Nonsustained ventricular tachycardia History of recurrent miscarriages, not currently History of DVT (deep vein thrombosis) Congenital polycystic kidney disease History of allergic rhinitis Obesity Benign essential hypertension Home Medications ?Medication ?Instructions ?Recorded ?Last Taken ?Type sertraline 50 mg tablet 75 mg PO QHS depression 01/0803/15/23 History cholecalciferol (vitamin D3) 25 1,000 unit PO QDAY sup plement 10/24/17 03/15/23 History mcg (1,000 unit) tablet sevelamer carbonate 800 mg tablet 4,000 mg PO TID bind er 30 days #90 06/11/21 03/15/23 History tabs calcium carbonate (Tums) 400 mg PO BID 03/30/2203/15 History nitroglycerin 0.4 mg sublingual 0.4 mg sublingual Q5M PRN Chest 10/14/22 03/15/23 Rx tablet Pain #25 tabs ipratropium bromide 21 mcg (0.03 2 spray intranasal DA BHANU 05/10/23 Unknown History %) nasal spray atorvastatin 10 mg tablet 10 mg PO DAILY cholesterol # 30 tabs 10/11/24 Unknown Rx levothyroxine 25 mcg tablet 25 mcg PO QDAY thyroid 10/02 Unknown History vitamin B complex-vitamin C-folic 1 tab PO QDAY supple ment 10/11/24 Unknown History acid 0.8 mg tablet (Rani-Yahir) warfarin 2 mg tablet 9 mg PO SUTUTHSA blood thinn er 10/11/24 Unknown History warfarin 3 mg tablet 8 mg PO MOWEFR blood thinner 10/11/24 Unknown History zolpidem 10 mg tablet 10 mg PO QHS PRN insomnia Unknown History digoxin 125 mcg (0.125 mg) tablet 125 mcg PO QODAY hea rt #30 tabs 01/09/25 Unknown Rx carvedilol 6.25 mg tablet 6.25 mg PO BID blood pressur e 03/29/25 Unknown History telmisartan 40 mg tablet 40 mg PO BID blood pressure 03/29/25 Unknown History Allergy/AdvReac Type Severity Reaction Status Date / Time amoxicillin Allergy Rash Verified 03/29/25 15:14 doxercalciferol (From Allergy Hives Verified 03/29/25 15:14 Hectorol) etodolac Allergy Rash Verified 03/29/25 15:14 Penicillins (PCN) Allergy Rash Verified 03/29/25 15:14 sulfamethoxazole (From Allergy Rash Verified 03/29/25 15:14 Bactrim) tramadol Allergy Rash Verified 03/29/25 15:14 trimethoprim (From Bactrim) Allergy Rash Verified 03/29/25 15:14 strawberry AdvReac Vomiting Verified 03/29/25 15:14 Family History Father Hypertension Kidney disease Mother Diabetes Family History no significant family his Surgical History Hx of kidney removal History of implantable cardiac defibrillator (ICD) (11/22/19) History of coronary artery stent placement (04/22/16) fistulogram History of thyroid surgery Surgical History no surgical history Social History household members: none Smoking Status: Never smoker alcohol intake: never substance use type: does not use diet: other caffeine: No what type of physical activity do you participate in: none seatbelt use: always do you feel safe at home: Yes ROS ROS Narrative As per HPI, otherwise noncontributory. Physical Exam Narrative General: Alert and oriented x3, NAD. HEENT: Normocephalic, atraumatic. Mucous membrane moist without erythema. PERRLA, EOMI. Hearing is intact. Neck: Supple, no JVD. Trachea is midline. No thyromegaly or lymphadenopathy. Cardiovascular: Normal S1, S2. No rubs, murmurs, or gallops. Respiratory: Lungs are clear to auscultation bilaterally. No wheezing, rhonchi,or rales. Abdomen: Normal bowel sounds, soft, nontender, no guarding or rebound, no organomegaly. Extremities: No clubbing, cyanosis, or edema. Musculoskeletal: Full passive range of motion, no joint swelling. Psychiatric: Normal mood and affect. Skin: Warm and dry, no rash. Neurologic: Cranial nerve II to XII are grossly intact. No focal neurologic deficits. Lab / Micro Data 03/30/25 05:22 03/30/25 05:22 Labs: Laboratory Results - last 24 hr 03/29/25 16:20: ESR 6 03/29/25 18:13: C-React Prot Ext Range < 3.00 03/29/25 21:00: Troponin T Hi Sens 4Hr 66 H* 03/30/25 05:22: WBC 4.5, RBC 2.93 L, Hgb 8.6 L, Hct 26.9 L, MCV 91.8, MCH 29.4, MCHC 32.0, RDW Std Deviation 53.4 H, RDW Coeff of Tana 17.2 H, Plt Count 230, MPV10.1, Immature Gran % (Auto) 0.400, Neut % (Auto) 70.6 H, Lymph % (Auto) 14.4 L,[place] % (Auto) 7.3, Eos % (Auto) 6.4 H, Baso % (Auto) 0.9, Absolute Neuts (auto) 3.2, Absolute Lymphs (auto) 0.65 L, Nucleated RBC % 0, ESR 4, PT 26.2 H, INR 2.3, Sodium 136, Potassium 3.9, Chloride 95 L, Carbon Dioxide 27.1, Anion Gap 15, BUN 27 H, Creatinine 7.27 H, Estim Creat Clear Calc 8.07 L*, Est GFR (MDRD) Non-Af 6 L, BUN/Creatinine Ratio 3.6 L, Glucose 102 H, Calcium 8.2, Phosphorus 4.0, Magnesium 2.3 H, Total Bilirubin 0.54, AST 23, ALT 19, Alkaline [id number], C-React Prot Ext Range < 3.00, Total Protein 5.8 L, Albumin 3.6, Globulin 2.2, Albumin/Globulin Ratio 1.6, TSH 3.440 Rhythm Strip Rhythm Strip: Sinus Rhythm Rate: 62 Ectopy: None Imaging Radiology Impression Echocardiogram 03/29/25 20:38 Interpretation Summary Normal LV size. Left ventricular systolic function is normal. The left ventricular ejection fraction is 65 %. Stage 2 diastolic dysfunction. Pulmonary artery systolic pressure is 40 mmHg. Ordering Physician: Saadia Valencia Performed By: Jane Arnold RDCS Abdomen X-Ray 03/30/25 16:05 IMPRESSION: Nonspecific findings. - Findings and recommendations discussed above in detail. Reading Location: [id number] 03/31/25 0243 <Electronically signed by Ace Salgado MD> Cosigner Signature (if applicable): CC: Dr. Trevor Vieyra MD~ Signed [facility] Work Phone: Consult note Author Ernesto Garvin [facility] Note Date/Time April 01, 2025 5:15pm [facility] Medical Records Department [address] [place] [address] Consultation - Cardiology 03/31/25 0825 MR#: [id number] Acct: [id number] Name: SPENCER REDDING Rep #:[id number] : 1965 59 From: Ernesto Garvin MD PCP: Dr. Trevor Vieyra MD Status:DIS IN Location: ICU ICU02-1 Assessment & Plan Assessment/Plan (1) Torsades de pointes: PLAN: She does present with symptomatic torsade de pointes. The plan will be totry and keep her potassium at 4.0 or higher. She will be given extra potassium this morning not with standing renal problems. She is also on the Isopril whichwill be continued but we will reduce the dose to 2.5 mics per minute. Will continue to monitor her with serial EKGs. (2) Accelerated essential hypertension: PLAN: Her blood pressure was elevated overnight. Will adjust her medications and increase amlodipine to 10 mg a day and continue her other current medications. Will discuss with nephrology about continued use of [place]. (3) History of implantable cardiac defibrillator (ICD): PLAN: She is status post implantable defibrillator. No defibrillator dischargeshave been noted. (4) History of coronary artery stent placement: PLAN: She does have a history of coronary artery disease coronary artery stenting of the right coronary artery and the left anterior descending artery. Stress test performed during this admission demonstrates no evidence of ischemia. (5) Benign essential hypertension: PLAN: Her blood pressure is elevated and we will try and make appropriate adjustments. Echocardiogram demonstrated preserved ejection fraction of 65%. (6) Hyperlipidemia: QUALIFIERS: Hyperlipidemia type: unspecified Qualified Code(s): E78.5 - Hyperlipidemia, unspecified PLAN: She does have a history of hyperlipidemia and will continue with risk factor modification. HPI Consult Data Date of Consult: 03/31/25 HPI Narrative HPI Narrative: SPENCER REDDING, is a 59 F who presents to the emergency room with complaints of chest discomfort, dyspnea and elevated blood pressure. She was also noted to have a 10 beat run of a wide-complex tachycardia. She was admitted to the telemetry unit and underwent an echocardiogram which demonstrated preserved ejection fraction as well as myocardial perfusion stress test which demonstratedno evidence of ischemia. While on the telemetry floor the patient was noted to have wide-complex tachycardia in the pattern of torsade. Cardiology was called for evaluation and management. Patient was noted to have a prolonged QT interval. She had been on digoxin. She has a history of coronary artery disease with a known high-grade lesion of the right coronary artery diagnosed 2015 after she had developed torsade de pointes. She underwent angioplasty and stenting of the above. She did have angioplasty and stenting ofher moderate 60 to 70% lesion in the left anterior descending artery which was stented and a moderate 60% lesion in the circumflex artery which was managed medically. As a result of her rhythm abnormalities of the above she also underwent implantation of a subcutaneous defibrillator in July 2016. She hadgenerator changed in November 2019. She continues on dialysis 3 times a week M,W, and F. She also has a history of hypertension, hyperparathyroidism, and anemia.She does have her ICD checked routinely through [facility]. Her INR is managed by her PCP. When she was last seen in the office,She denies chest, arm, jaw, or neck discomfort. She states infrequent palpitations that she describes as fast. Shedenies bilateral lower extremity edema. She denies claudication. She denies shortness of breath with activity, shortness of breath at rest, orthopnea, or PND. She denies chronic cough. She denies significant, sudden weight gain. She states lightheadedness, dizziness, near-syncope, and syncope. She denies blood in urine, blood in stool, or epistaxis. He denies fever with chills. Shedenies myalgia. She acknowledges fatigue. Her exercise level has remained stable. EKG on the telemetry floor demonstrated prolonged QT of 540 ms and resulting torsade de pointes. She was transferred to the telemetry intensive care unit and started on intravenous Isopril. This morning she is doing so muchbetter with no further rhythm abnormalities present. [facility] Medical History Polycystic kidney disease Sudden cardiac Hypertriglyceridemia Hyperlipidemia History of torsades de pointes Atherosclerosis of coronary artery of [place] heart without angina pectoris Syncope and collapse Ventricular fibrillation Ischemic cardiomyopathy ESRD (end stage renal disease) on dialysis Nonsustained ventricular tachycardia History of recurrent miscarriages, not currently History of DVT (deep vein thrombosis) Congenital polycystic kidney disease History of allergic rhinitis Obesity Benign essential hypertension Home Medications ?Medication ?Instructions ?Recorded ?Last Taken ?Type sertraline 50 mg tablet 75 mg PO QHS depression 01/0803/15/23 History cholecalciferol (vitamin D3) 25 1,000 unit PO QDAY sup plement 10/24/17 03/15/23 History mcg (1,000 unit) tablet sevelamer carbonate 800 mg tablet 4,000 mg PO TID bind er 30 days #90 06/11/21 03/15/23 History tabs calcium carbonate (Tums) 400 mg PO BID 03/30/2203/15 History nitroglycerin 0.4 mg sublingual 0.4 mg sublingual Q5M PRN Chest 10/14/22 03/15/23 Rx tablet Pain #25 tabs ipratropium bromide 21 mcg (0.03 2 spray intranasal DA BHANU 05/10/23 Unknown History %) nasal spray atorvastatin 10 mg tablet 10 mg PO DAILY cholesterol # 30 tabs 10/11/24 Unknown Rx levothyroxine 25 mcg tablet 25 mcg PO QDAY thyroid 10/02 Unknown History vitamin B complex-vitamin C-folic 1 tab PO QDAY supple ment 10/11/24 Unknown History acid 0.8 mg tablet (Rani-Yahir) warfarin 2 mg tablet 9 mg PO SUTUTHSA blood thinn er 10/11/24 Unknown History warfarin 3 mg tablet 8 mg PO MOWEFR blood thinner 10/11/24 Unknown History zolpidem 10 mg tablet 10 mg PO QHS PRN insomnia Unknown History digoxin 125 mcg (0.125 mg) tablet 125 mcg PO QODAY hea rt #30 tabs 01/09/25 Unknown Rx carvedilol 6.25 mg tablet 6.25 mg PO BID blood pressur e 03/29/25 Unknown History telmisartan 40 mg tablet 40 mg PO BID blood pressure 03/29/25 Unknown History Allergy/AdvReac Type Severity Reaction Status Date / Time amoxicillin Allergy Rash Verified 03/29/25 15:14 doxercalciferol (From Allergy Hives Verified 03/29/25 15:14 Hectorol) etodolac Allergy Rash Verified 03/29/25 15:14 Penicillins (PCN) Allergy Rash Verified 03/29/25 15:14 sulfamethoxazole (From Allergy Rash Verified 03/29/25 15:14 Bactrim) tramadol Allergy Rash Verified 03/29/25 15:14 trimethoprim (From Bactrim) Allergy Rash Verified 03/29/25 15:14 strawberry AdvReac Vomiting Verified 03/29/25 15:14 Family History Father Hypertension Kidney disease Mother Diabetes Family History no significant family his Surgical History Hx of kidney removal History of implantable cardiac defibrillator (ICD) (11/22/19) History of coronary artery stent placement (04/22/16) fistulogram History of thyroid surgery Surgical History no surgical history Social History household members: none Smoking Status: Never smoker alcohol intake: never substance use type: does not use diet: other caffeine: No what type of physical activity do you participate in: none seatbelt use: always do you feel safe at home: Yes ROS Constitutional Constitutional: Denies fever(s) or weight loss Eyes Eyes: Reports systems reviewed and no addt'l complaints, except as documented ENT HEENT: Reports systems reviewed and no addt'l complaints, except as documented Cardiovascular Cardiovascular: Denies chest pain at rest, chest pain with activity, dyspnea at rest, dyspnea on exertion, edema, palpitations or paroxysmal nocturnal dyspnea Respiratory/Chest Respiratory/Chest: Denies dyspnea on exertion, productive cough, shortness of breath at rest or shortness of breath with exertion Gastrointestinal Gastrointestinal: Denies change in bowel habits, nausea, vomiting or weight changes Genitourinary Genitourinary: Denies difficulty urinating Musculoskeletal Musculoskeletal: Denies joint stiffness or muscle weakness Integumentary Integumentary: Denies lesions Neurologic Neurologic: Denies dizziness or syncope Psychiatric Psychiatric: Denies anxiety Endocrine Endocrinology: Denies excessive sweating or fatigue Hematologic/Lymphatic Hematologic/Lymphatic: Denies anemia Allergic/Immunologic Allergic/Immunologic: Denies seasonal rhinorrhea Objective Data Vital Signs: Vital Signs Temp Pulse Resp BP Pulse Ox O2 Del Method O2 Flow Rate 98.0 F 88 23 H 163/62 H 100 Nasal Cannula 2 03/30/25 20:30 03/31/25 06:00 03/31/25 06:00 03/31/25 06:00 03/31/25 06:00 03/31/25 06:00 03/31/25 06:00 Oxygen Flow Rate (L/min) 2 Oxygen Delivery Method Nasal Cannula Weight: 178 lb 5.663 oz Body Mass Index (BMI) 32.5 Intake & Output: Intake and Output for Last 24 Hours 03/29/25 03/30/25 03/31/25 23:59 23:59 23:59 Intake Total 400 / 400 104 / 104 676.25 / 676.25 Output Total 0 / 0 Balance 400 / 400 104 / 104 676.25 / 676.25 Lab / Micro Data 03/31/25 06:08 03/31/25 06:08 Labs: Laboratory Results - last 24 hr 03/31/25 06:08: WBC 6.5, RBC 3.06 L, Hgb 9.1 L, Hct 27.7 L, MCV 90.5, MCH 29.7, MCHC 32.9, RDW Std Deviation 54.9 H, RDW Coeff of Tana 17.6 H, Plt Count 232, MPV9.1, Immature Gran % (Auto) 0.300, Neut % (Auto) 77.4 H, Lymph % (Auto) 11.1 L, [place] % (Auto) 8.0, Eos % (Auto) 2.9, Baso % (Auto) 0.3, Absolute Neuts (auto) 5.0, Absolute Lymphs (auto) 0.72 L, Nucleated RBC % 0, Sodium 130 L, Potassium 3.5, Chloride 89 L, Carbon Dioxide 23.0, Anion Gap 18 H, BUN 37 H, Creatinine 9.32 H*, Estim Creat Clear Calc 6.33 L*, Est GFR (MDRD) Non-Af 4 L, BUN/Creatinine Ratio 4.0 L, Glucose 156 H, Calcium 8.0, Triglycerides 166, Cholesterol 155, LDL Cholesterol, Calc 95, VLDL Cholesterol 33, HDL Cholesterol 27 L, Cholesterol/HDL Ratio 5.83 Rhythm Strip Rhythm Strip: Sinus Rhythm Rate: 62 Ectopy: None Cardiology Labs/Tests 03/31/25 06:08: WBC 6.5, RBC 3.06 L, Hgb 9.1 L, Hct 27.7 L, MCV 90.5, MCH 29.7, MCHC 32.9, Plt Count 232, MPV 9.1, Immature Gran % (Auto) 0.300, Neut % (Auto) 77.4 H, Lymph % (Auto) 11.1 L, [place] % (Auto) 8.0, Eos % (Auto) 2.9, Baso % (Auto) 0.3, Absolute Neuts (auto) 5.0, Nucleated RBC % 0, Sodium 130 L, Potassium 3.5, Chloride 89 L, Carbon Dioxide 23.0, Anion Gap 18 H, BUN 37 H, Creatinine 9.32 H*, Est GFR (MDRD) Non-Af 4 L, BUN/Creatinine Ratio 4.0 L, Glucose 156 H, Calcium 8.0, Triglycerides 166, Cholesterol 155, VLDL Cholesterol 33, HDL Cholesterol 27 L, Cholesterol/HDL Ratio 5.83 Rhythm: EKG: ECHO: Stress Test: Cardiac Cath: PCI: CT Surgery: Holter monitor: EPS: PPM: CXR: Chest CT Scan: Radiography Diagnostic Testing: Radiology Impression Echocardiogram 03/29/25 20:38 Interpretation Summary Normal LV size. Left ventricular systolic function is normal. The left ventricular ejection fraction is 65 %. Stage 2 diastolic dysfunction. Pulmonary artery systolic pressure is 40 mmHg. Ordering Physician: Saadia Valencia Performed By: Jane Arnold RDCS Abdomen X-Ray 03/30/25 16:05 IMPRESSION: Nonspecific findings. - Findings and recommendations discussed above in detail. Reading Location: [facility] Risk Score for UA/STEMI Assesmment (YES = 1) Risk Stratification Applicable: No 04/02/25 0635 <Electronically signed by Ernesto Garvin MD> Cosigner Signature (if applicable): CC: Dr. Trevor Vieyra MD~ Signed [facility] Work Phone: Consult note Author Watson Dalal [facility] Note Date/Time April 01, 2025 11:00am [facility] Medical Records Department [address] [place] [address] Consultation - Nephrology 04/01/25 1059 MR#: [id number] Acct: [id number] Name: SPENCER REDDING Rep #:[id number] : 1965 59 From: Watson garcía MD PCP: Dr. Trevor Vieyra MD Status:ADM IN Location: ICU ICU02-1 Assessment & Plan Assessment/Plan (1) ESRD (end stage renal disease) on dialysis: PLAN: Seen on dialysis today. See orders/flowsheets. Will use 3K bath in view of arrhythmia. HPI Consult Data Date of Consult: 04/01/25 HPI Narrative Reason for Consultation: ESRD HPI Narrative: SPENCER REDDING, is a 59 F who presents to the hospital with tachyarrhythmias. Nephrology on consultation in view of ESRD. On hemodialysis Tuesday, Tuesday, Tuesday. [facility] Medical History Polycystic kidney disease Sudden cardiac Hypertriglyceridemia Hyperlipidemia History of torsades de pointes Atherosclerosis of coronary artery of [place] heart without angina pectoris Syncope and collapse Ventricular fibrillation Ischemic cardiomyopathy ESRD (end stage renal disease) on dialysis Nonsustained ventricular tachycardia History of recurrent miscarriages, not currently History of DVT (deep vein thrombosis) Congenital polycystic kidney disease History of allergic rhinitis Obesity Benign essential hypertension Home Medications ?Medication ?Instructions ?Recorded ?Last Taken ?Type sertraline 50 mg tablet 75 mg PO QHS depression 01/0803/15/23 History cholecalciferol (vitamin D3) 25 1,000 unit PO QDAY sup plement 10/24/17 03/15/23 History mcg (1,000 unit) tablet sevelamer carbonate 800 mg tablet 4,000 mg PO TID bind er 30 days #90 06/11/21 03/15/23 History tabs calcium carbonate (Tums) 400 mg PO BID 03/30/2203/15 History nitroglycerin 0.4 mg sublingual 0.4 mg sublingual Q5M PRN Chest 10/14/22 03/15/23 Rx tablet Pain #25 tabs ipratropium bromide 21 mcg (0.03 2 spray intranasal DA BHANU 05/10/23 Unknown History %) nasal spray atorvastatin 10 mg tablet 10 mg PO DAILY cholesterol # 30 tabs 10/11/24 Unknown Rx levothyroxine 25 mcg tablet 25 mcg PO QDAY thyroid 10/02 Unknown History vitamin B complex-vitamin C-folic 1 tab PO QDAY supple ment 10/11/24 Unknown History acid 0.8 mg tablet (Rani-Yahir) warfarin 2 mg tablet 9 mg PO SUTUTHSA blood thinn er 10/11/24 Unknown History warfarin 3 mg tablet 8 mg PO MOWEFR blood thinner 10/11/24 Unknown History zolpidem 10 mg tablet 10 mg PO QHS PRN insomnia Unknown History digoxin 125 mcg (0.125 mg) tablet 125 mcg PO QODAY hea rt #30 tabs 01/09/25 Unknown Rx carvedilol 6.25 mg tablet 6.25 mg PO BID blood pressur e 03/29/25 Unknown History telmisartan 40 mg tablet 40 mg PO BID blood pressure 03/29/25 Unknown History Allergy/AdvReac Type Severity Reaction Status Date / Time amoxicillin Allergy Rash Verified 03/29/25 15:14 doxercalciferol (From Allergy Hives Verified 03/29/25 15:14 Hectorol) etodolac Allergy Rash Verified 03/29/25 15:14 Penicillins (PCN) Allergy Rash Verified 03/29/25 15:14 sulfamethoxazole (From Allergy Rash Verified 03/29/25 15:14 Bactrim) tramadol Allergy Rash Verified 03/29/25 15:14 trimethoprim (From Bactrim) Allergy Rash Verified 03/29/25 15:14 strawberry AdvReac Vomiting Verified 03/29/25 15:14 Family History Father Hypertension Kidney disease Mother Diabetes Family History no significant family his Surgical History Hx of kidney removal History of implantable cardiac defibrillator (ICD) (11/22/19) History of coronary artery stent placement (04/22/16) fistulogram History of thyroid surgery Surgical History no surgical history Social History household members: none Smoking Status: Never smoker alcohol intake: never substance use type: does not use diet: other caffeine: No what type of physical activity do you participate in: none seatbelt use: always do you feel safe at home: Yes ROS ROS Narrative Negative except above Physical Exam Narrative no obvious distress no pallor no icterus no JVD s1s2 no murmurs lungs clear abdomen soft no organomegaly no edema Lab / Micro Data 04/01/25 05:55 04/01/25 05:55 Labs: Laboratory Results - last 24 hr 03/31/25 15:15: PT 29.6 H, INR 2.7 04/01/25 05:55: WBC 7.2, RBC 3.02 L, Hgb 9.1 L, Hct 27.6 L, MCV 91.4, MCH 30.1, MCHC 33.0, RDW Std Deviation 58.0 H, RDW Coeff of Tana 18.0 H, Plt Count 246, MPV9.2, Immature Gran % (Auto) 0.400, Neut % (Auto) 66.8, Lymph % (Auto) 16.4 L, [place] % (Auto) 7.5, Eos % (Auto) 8.2 H, Baso % (Auto) 0.7, Absolute Neuts (auto) 4.8, Absolute Lymphs (auto) 1.18, Nucleated RBC % 0, Sodium 131 L, Potassium 4.5, Chloride 91 L, Carbon Dioxide 22.4, Anion Gap 18 H, BUN 50 H, Creatinine 11.10 H*, Estim Creat Clear Calc 5.33 L*, Est GFR (MDRD) Non-Af 4 L, BUN/Creatinine Ratio 4.5 L, Glucose 91, Calcium 7.7 Rhythm Strip Rhythm Strip: Sinus Rhythm Rate: 62 Ectopy: None 04/01/25 1100 <Electronically signed by Watson Dalal MD> Cosigner Signature (if applicable): CC: Dr. Trevor Vieyra MD~ Signed [facility] Work Phone: Discharge summary Author Armando Booker [facility] Note Date/Time April 01, 2025 11:57am [facility] Medical Records Department [address] [place] [address] Instructions for Home/Discharge Instructions 04/01/25 1150 MR#: [id number] Acct: [id number] Name: SPENCER REDDING Rep #:[id number] : 1965 59 From: Armando paul MD PCP: Dr. Trevor Vieyra MD Status:ADM IN Discharge Instructions DC O2, CPAP, BIPAP needs Home O2 Discharge instructions: No Dressing / Incision Discharge Activity: Return to Normal Activity Dressing / Incision Call your doctor if you observe: Fever of 101 or Higher, Shortness of breath, Dizziness, Fainting spells, Swelling in the ankles, Chest pain and Increased palpitations (irregular heartbeat) Follow Up Care Test Results: Test results from this visit will be discussed in further detail at your follow- up appointment, if applicable. Discharge Plan Admission Admit Date/Time: 03/30/25 20:01 Attending Provider: Armando Booker Primary Care Provider: Trevor Vieyra Consulting Providers: Saadia Valencia; Ernesto Garvin; Watson Dalal; Sudarshan Garcia Discharge Orders/Prescriptions Prescriptions: New amlodipine 10 mg Tablet 10 mg PO DAILY 30 Days Qty: 30 0RF Continued cholecalciferol (vitamin D3) 1,000 unit tablet 1,000 unit PO QDAY sevelamer carbonate 800 mg tablet 4,000 mg PO TID 30 Days Qty: 90 calcium carbonate [Tums] 200 mg calcium (500 mg) tablet,chewable 400 mg PO BID ipratropium bromide 21 mcg (0.03 %) spray,non-aerosol 2 spray intranasal DAILY Rx Instructions: administer into each nostril levothyroxine 25 mcg tablet 25 mcg PO QDAY warfarin 3 mg tablet 8 mg PO MOWEFR warfarin 2 mg tablet 9 mg PO SUTUTHSA Rani-Yahir 0.8 mg tablet 1 tab PO QDAY zolpidem 10 mg tablet 10 mg PO QHS PRN (Reason: insomnia) atorvastatin 10 mg tablet 10 mg PO DAILY Qty: 30 12RF sertraline 50 MG tablet 75 mg PO QHS carvedilol 6.25 mg tablet 6.25 mg PO BID telmisartan 40 mg tablet 40 mg PO BID nitroglycerin 0.4 mg tablet, sublingual 0.4 mg SUBLINGUAL Q5M PRN (Reason: Chest Pain) Qty: 25 2RF Discontinued digoxin 125 mcg (0.125 mg) tablet 125 mcg PO QODAY Qty: 30 11RF Other Ambulatory Orders: Cardiac Holter Monitor, 48 Hrs (Routine) Timeframe: 1 Day Facility: [facility] - Location: Cardiovascular Services Ordered By: Dr. Armando Booker Referrals / Follow Up: Ernesto Garvin MD [Med Staff - Active Staff, Cardiology] - Within 1 Month Trevor Vieyra MD [Primary Care Provider, Family Practice] - Within 1 Week Disposition Disposition (needs filled in before D/C Order can be placed): Home, Self Care 04/01/25 1157<Electronically signed by Armando Booker MD>Armando Booker MD CC: Dr. Saadia Valencia MD; Dr. Ernesto Garvin MD; Dr. Trevor Vieyra MD; Dr. Watson Dalal MD; Dr. Sudarshan aGrcia MD ~ Signed [facility] Work Phone: Discharge summary Author Armando Booker [facility] Note Date/Time April 01, 2025 3:23pm [facility] Medical Records Department [address] [place] [id number] Discharge Summary 04/01/25 1518 MR#: [id number] Acct: [id number] Name: SPENCER REDDING Rep #:[id number] : 1965 59 From: Armando paul MD PCP: Dr. Trevor Vieyra MD Status:ADM IN Location: ICU ICU02-1 Providers Date of Admission: 03/30/25 Primary Care Physician: Dr. Trevor Vieyra MD Consultations 03/30/25 07:42 Consult: Nephrology Routine Consulting Provider: Watson Dalal Reason for Consult: ESRD m,w,f EMERGENT Consult: No MD Notified: Yes Date Notified: 03/30/25 Time Notified: 07:43 Method of Notification: Text 03/30/25 19:47 Consult: Cardiology Routine Consulting Provider: Ernesto Garvin Reason for Consult: Prolonged QTc, recurrent NSVT. stress test negative. EMERGENT Consult: No Notified: Yes Date Notified: 03/30/25 Time Notified: 19:20 Method of Notification: Text Reason For Visit: CHEST PAIN Diagnosis Discharge Diagnosis (1) ESRD (end stage renal disease) on dialysis: Status: Chronic Code(s): N18.6 - End stage renal disease; Z99.2 - Dependence on renal dialysis Medications at Discharge Home Medications sertraline 50 mg tablet 75 mg PO QHS depression 01/19/17 cholecalciferol (vitamin D3) 25 mcg (1,000 unit) tablet 1,000 unit PO QDAY supplement 10/24/17 sevelamer carbonate 800 mg tablet 4,000 mg PO TID binder 30 days #90 tabs 06/11/21 calcium carbonate (Tums) 400 mg PO BID 03/30/22 nitroglycerin 0.4 mg sublingual tablet 0.4 mg sublingual Q5M PRN Chest Pain #25 tabs 10/14/22 ipratropium bromide 21 mcg (0.03 %) nasal spray 2 spray intranasal DAILY 05/10/23 atorvastatin 10 mg tablet 10 mg PO DAILY cholesterol #30 tabs 10/11/24 levothyroxine 25 mcg tablet 25 mcg PO QDAY thyroid 10/11/24 vitamin B complex-vitamin C-folic acid 0.8 mg tablet (Rani-Yahir) 1 tab PO QDAY supplement 10/11/24 warfarin 2 mg tablet 9 mg PO SUTUTHSA blood thinner 10/11/24 warfarin 3 mg tablet 8 mg PO MOWEFR blood thinner 10/11/24 zolpidem 10 mg tablet 10 mg PO QHS PRN insomnia 10/11/24 carvedilol 6.25 mg tablet 6.25 mg PO BID blood pressure 03/29/25 telmisartan 40 mg tablet 40 mg PO BID blood pressure 03/29/25 amlodipine 10 mg tablet 10 mg PO DAILY 30 days #30 tabs 04/01/25 Hospital Course Operations None Procedures 2-D Echocardiogram Summary of Care Provided Minutes Spent on Discharge: 37 Hospital Course: Per HPI: The patient is a 59 y/o F w/ PMHx: Polycystic kidney disease status post bilateral nephrectomies ESRD on HD M/W/F, Chronic normocytic anemia/AOCD, Orthostatic hypotension, CAD, PAF, history torsades/VT, Hypothyroidism, Obesity,HTN, HLD, Anxiety and Depression, recent ED evaluation 03/28/2025 secondary to chest pressure occurring during dialysis and intermittently in the last several weeks lasting approximately an hour in the substernal region described as mild to moderate usually occurring dialysis with associated nausea as well as dyspneabut no emesis nor any diaphoresis with no radiation of the chest discomfort withthe ED evaluation at that time with indeterminate cardiac enzymes felt stable likely secondary to underlying renal disease status post bilateral nephrectomy with blood pressure labile with plan for discharge to home with follow-up with nephrology and cardiology as they are working on a regimen to improve her blood pressure control with also unremarkable chest x-ray and EKG with no acute evidence of ischemia now presenting again to the [facility] ED on 03/29/2025 with ongoing dyspnea in addition to a nonproductive cough reportingthat she is actually at her dry weight with persistent pressure now on the left side of her chest with also an episode of burning sensation in the ED with at that time incidentally noted 10 beat run of V. tach with elevated persistent blood pressures despite recently initiated regimen of telmisartan, digoxin and Coreg prompting repeat ED evaluation. Workup in the ED included T98, heart rate64, BP 174/61, respiratory rate 16, 94% on room air with most recent repeat vitals T98.4, heart rate 65, BP 197/65, respiratory rate 20, 95% room air, CBC with WBC 4.2, hemoglobin 8.8, MCV 91.2, platelet 220 with lymphopenia, coags with INR 2.1, BMP with chloride 94, BUN/creatinine 19/5.66, GFR 8, glucose 101, magnesium 2.0, troponin initial 62 with repeat delta 2-hour pending, chest x-raywith basilar atelectasis, cardiomegaly with mild congestion, bilateral pleural effusions with no significant change since prior evaluation, CT chest with cardiomegaly with small pericardial effusion, scattered mediastinal lymph nodes likely reactive, EKG with SR with mildly prolonged QTC, T wave morphology changeof unclear significance with no acute evidence of ischemia similar to prior. Inthe ED patient ministered hydralazine 10 mg IV x 1. Hospital Course: #1. Hypertensive urgency: Patient blood pressure is high chronically systolic more than 200. At home patient is on telmisartan, carvedilol and digoxin but not on diuretic. Patient is started on chlorthalidone 12.5 mg daily. On IV hydralazine and labetalol as needed SBP more than 180 mmHg. Blood pressure still high 180/57, 172/56. and blood pressure is controlled about systolic 150spatient can be discharged and advised follow-up with director of player personnel for better control of blood pressure. 04/01/2025: Chlorthalidone was discontinued given her renal failure. She was started on Norvasc and resumed on her Coreg at 6.25 mg p.o. twice daily. I recommend outpatient monitoring with her PCP and cardiology for further adjustments. I discussed with her the plan for discharge and she expressed understanding of the risks and benefits of going home and would like to go home today. Her digoxin was also discontinued as there was concern that this was thecause of her symptomatic episode of torsades. 2. Atypical chest pain, localized: ACS ruled out. Twelve-lead EKG nondiagnostic of ACS. Serial troponins were mildly elevated 60-63 and 66. patient had nuclear stress test negative for acute ischemia. ACS ruled out. 2Decho shows EF 65% with stage II diastolic dysfunction, mild TR PASP 43. Overallsuggestive of chronic HFpEF #2. Polycystic kidney disease status post bilateral nephrectomy with ESRD: Patient with ongoing dialysis Tuesday, Tuesday, Tuesday,: Patient did not have any need for hemodialysis. Operations Coordinator consulted electrolytes in normal limit. BUN/creatinine high 27/7.27. Serum magnesium 2.0. 03/31/2025: Appreciate nephrology's assistance #3. Chronic normocytic anemia/AOCD: Admission hemoglobin 8.8, MCV 91.2, baseline hemoglobin ranges primarily 9-11, most recently previous 03/28/2025 hemoglobin 9.1, hemoglobin 8.8. On baseline #4. Orthostatic hypotension: Given patient recent increased blood pressures although labile especially dialysis will hold midodrine regimen at this time. #5. CAD: Status post previous PCI 2015, continue Coumadin, statin, Coreg, telmisartan regimen with hold parameters as needed. #6. PAF: continue patient home digoxin and Coumadin regimen, INR 2.3, therapeutic #7. History of torsades, recent as noted symptomatic VT burst: Status post previous AICD placement 2019, Will continue digoxin, coreg regimen. Interrogation attempted in the ED with noted AF with no firing. 03/31/2025: Transferred to the ICU overnight for symptomatic torsades, appreciatecardiology's assistance. Will maintain potassium greater than 4 and magnesium is 2.8 today 04/01/2025: Potassium is greater than 4 and her torsades has resolved. Will place her on a Holter monitor on discharge and have her follow-up with cardiology and her primary care physician on discharge #8. Hypothyroidism: On levothyroxine. TSH normal. #9. Obesity: Weight loss and lifestyle changes encouraged. #10. Anxiety and depression: Will continue patient home sertraline regimen. #11. Hyperlipidemia: Will continue patient on statin therapy, Physical Exam Narrative General: Alert, Oriented x3, Cooperative, No apparent distress HEENT: Atraumatic, PERRLA, EOMI, Normocephalic Oral: Moist Mucosa Neck: Supple, No JVD Lungs: Diminished, Normal air movement, No rhonchi, No wheeze, No rales Cardiovascular: Regular rate, Regular Rhythm, Normal S1, Normal S2, No murmurs Abdomen: Soft, Non Tender, Non-Distended, No Hepato-splenomegaly Extremities: No edema, Capillary Refill Less than 3 Seconds Skin: No rashes, No breakdown Musculoskeletal: No Tenderness to Palpation of Joints or Extremities Neurological: No focal neurological deficits, Motor Exam 5/5 strength throughout, Sensory exam intact to light touch and pain Psych/Mental Status: Normal Affect, Appropriate Weight / BMI Weight Weight: 173 lb 11.588 oz Body Mass Index (BMI) 31.9 ABG / Lab / Microbiology Data 04/01/25 05:55 04/01/25 05:55 Laboratory: Laboratory Results - last 24 hr 03/31/25 15:15: PT 29.6 H, INR 2.7 04/01/25 05:55: WBC 7.2, RBC 3.02 L, Hgb 9.1 L, Hct 27.6 L, MCV 91.4, MCH 30.1, MCHC 33.0, RDW Std Deviation 58.0 H, RDW Coeff of Tana 18.0 H, Plt Count 246, MPV9.2, Immature Gran % (Auto) 0.400, Neut % (Auto) 66.8, Lymph % (Auto) 16.4 L, [place] % (Auto) 7.5, Eos % (Auto) 8.2 H, Baso % (Auto) 0.7, Absolute Neuts (auto) 4.8, Absolute Lymphs (auto) 1.18, Nucleated RBC % 0, Sodium 131 L, Potassium 4.5, Chloride 91 L, Carbon Dioxide 22.4, Anion Gap 18 H, BUN 50 H, Creatinine 11.10 H*, Estim Creat Clear Calc 5.33 L*, Est GFR (MDRD) Non-Af 4 L, BUN/Creatinine Ratio 4.5 L, Glucose 91, Calcium 7.7 Radiography Diagnostic Testing: Radiology Impression Echocardiogram 03/29/25 20:38 Interpretation Summary Normal LV size. Left ventricular systolic function is normal. The left ventricular ejection fraction is 65 %. Stage 2 diastolic dysfunction. Pulmonary artery systolic pressure is 40 mmHg. Small (<1.0 cm) pericardial effusion. Ordering Physician: Saadia Valencia Performed By: Jane Arnold RDCS D/C Instructions Call your doctor if you observe: Fever of 101 or Higher, Shortness of breath, Dizziness, Fainting spells, Swelling in the ankles, Chest pain and Increased palpitations (irregular heartbeat) DC O2, CPAP, BIPAP Needs Home O2 Discharge instructions: No Meaningful Use Info Meaningful Use Meaningful Use Diagnoses (Choose all that apply): None applicable Discharge Plan Admission Admit Date/Time: 03/30/25 20:01 Attending Provider: Armando Booker Primary Care Provider: Trevor Vieyra Consulting Providers: Saadia Valencia; Ernesto Garvin; Watson Dalal; Sudarshan Garcia Discharge Orders/Prescriptions Prescriptions: New amlodipine 10 mg Tablet 10 mg PO DAILY 30 Days Qty: 30 0RF Continued cholecalciferol (vitamin D3) 1,000 unit tablet 1,000 unit PO QDAY sevelamer carbonate 800 mg tablet 4,000 mg PO TID 30 Days Qty: 90 calcium carbonate [Tums] 200 mg calcium (500 mg) tablet,chewable 400 mg PO BID ipratropium bromide 21 mcg (0.03 %) spray,non-aerosol 2 spray intranasal DAILY Rx Instructions: administer into each nostril levothyroxine 25 mcg tablet 25 mcg PO QDAY warfarin 3 mg tablet 8 mg PO MOWEFR warfarin 2 mg tablet 9 mg PO SUTUTHSA Rani-Yahir 0.8 mg tablet 1 tab PO QDAY zolpidem 10 mg tablet 10 mg PO QHS PRN (Reason: insomnia) atorvastatin 10 mg tablet 10 mg PO DAILY Qty: 30 12RF sertraline 50 MG tablet 75 mg PO QHS carvedilol 6.25 mg tablet 6.25 mg PO BID telmisartan 40 mg tablet 40 mg PO BID nitroglycerin 0.4 mg tablet, sublingual 0.4 mg SUBLINGUAL Q5M PRN (Reason: Chest Pain) Qty: 25 2RF Discontinued digoxin 125 mcg (0.125 mg) tablet 125 mcg PO QODAY Qty: 30 11RF Other Ambulatory Orders: Cardiac Holter Monitor, 48 Hrs (Routine) Timeframe: 1 Day Facility: [facility] - Location: Cardiovascular Services Ordered By: Dr. Armando Booker Referrals / Follow Up: Ernesto Garvin MD [Med Staff - Active Staff, Cardiology] - Within 1 Month Trevor Vieyra MD [Primary Care Provider, Family Practice] - Within 1 Week Disposition Disposition (needs filled in before D/C Order can be placed): Home, Self Care Charges/Coding Visit Charges Inpatient E&M: 47883 Subs Hosp L2 04/01/25 1523 <Electronically signed by Armando Booker MD> Cosigner Signature (if applicable): CC: Dr. Trevor Viyera MD; Dr. Armando Booker MD~ Signed [facility] Work Phone: Evaluation noteNo assessment information available [facility] Work Phone: Evaluation note* Diagnosis Gross hematuria- Primary Polycystic kidney, unspecified documented in this encounter [facility] note* Diagnosis Gross hematuria- Primary [facility]* Diagnosis Gross hematuria documented in this encounter [facility] note* Diagnosis Microscopic hematuria documented in this encounter [facility] note* Diagnosis Gross hematuria- Primary Polycystic kidney, unspecified Hydronephrosis of right kidney Hydronephrosis [facility]* Diagnosis Gross hematuria- Primary Gross hematuria documented in this encounter [facility] note* Diagnosis Polycystic kidney- Primary Polycystic kidney, unspecified type documented in this encounter [facility] note* Diagnosis Gross hematuria- Primary Polycystic kidney Polycystic kidney, unspecified type 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) Early satiety Abdominal pain, unspecified abdominal location documented in this encounter [facility] note* Diagnosis Obesity, Class II, BMI 35-39.9 Obesity, unspecified Pre-op exam- Primary Preoperative examination, unspecified Polycystic kidney disease Polycystic kidney, unspecified type Coronary artery disease involving [place] heart without angina pectoris, unspecified vessel or lesion type Primary hypertension Unspecified essential hypertension Hyperlipidemia, unspecified hyperlipidemia type Stage 5 chronic kidney disease not on chronic dialysis (HCC) History of DVT (deep vein thrombosis) Personal history of venous thrombosis and embolism Polycystic kidney Polycystic kidney, unspecified type documented in this encounter [facility] note* Diagnosis Polycystic kidney- Primary Polycystic kidney, unspecified type Gross hematuria documented in this encounter [facility] note* Diagnosis Polycystic kidney- Primary Polycystic kidney, unspecified type Abdominal pain, unspecified abdominal location documented in this encounter [facility] note* Diagnosis Polycystic kidney- Primary Polycystic kidney, unspecified type Polycystic kidney Polycystic kidney, unspecified type documented [facility]* Diagnosis Obesity, Class I, BMI 30-34.9 Obesity, unspecified Preop examination Preoperative examination, unspecified Polycystic kidney Polycystic kidney, unspecified type Cardiac defibrillator in place Automatic implantable cardiac defibrillator in situ Atherosclerosis of [place] coronary artery of [place] heart without angina pectoris Mixed hyperlipidemia End-stage renal disease (HCC) End stage renal disease Polycystic kidney Polycystic kidney, unspecified type documented in this encounter [facility]* Diagnosis Polycystic kidney, unspecified- Primary documented in this encounter [facility]* Diagnosis Polycystic kidney Polycystic kidney, unspecified type documented in this encounter [facility] note* Diagnosis Ventricular tachycardia (HCC) Paroxysmal ventricular tachycardia Encounter for adjustment or management of cardiac device documented in this encounter [facility] note* Diagnosis Ventricular tachycardia (HCC)- Primary Paroxysmal ventricular tachycardia Encounter for adjustment or management of cardiac device documented in this encounter [facility] note* Diagnosis Onset Date Resolution Status Admit Date Accelerated essential hypertension acute March 30, 2025 8:01pm Chest pressure acute March 30, 2025 8:01pm Benign essential hypertension chronic March 30, 2025 8:01pm ESRD (end stage renal disease) on dialysis chronic March 122024 8:01pm History of implantable cardiac defibrillator (ICD) November 22, 2019 chronic March 30, 2025 8:01pm Hyperlipidemia chronic March 30, 2025 8:01pm History of coronary artery stent placement April 22, 2016 resolved March 8:01pm Torsades de pointes resolved 2024 8:01pm [facility] Work Phone: History and physical note Author Saadia Valencia [facility] Note Date/Time March 29, 2025 8:42pm [facility] Medical Records Department [address] [place] [id number] H&P Exam - Hospitalist 03/29/251947 MR#: [id number] Acct: [id number] Name: SPENCER REDDING Rep #:[id number] : 1965 59 From: Saadia Valencia MD PCP: Dr. Trevor Vieyra MD Status:ADM ISAIAS Location: [place] [address] HPI - General General Date of Admission: 03/29/25 Date of Service: 03/29/25 Chief Complaint: Chest pain, Dyspnea, elevated BP. HPI Narrative The patient is a 59 y/o F w/ PMHx: Polycystic kidney disease status post bilateral nephrectomies ESRD on HD M/W/F, Chronic normocytic anemia/AOCD, Orthostatic hypotension, CAD, PAF, history torsades/VT, Hypothyroidism, Obesity,HTN, HLD, Anxiety and Depression, recent ED evaluation 03/28/2025 secondary to chest pressure occurring during dialysis and intermittently in the last several weeks lasting approximately an hour in the substernal region described as mild to moderate usually occurring dialysis with associated nausea as well as dyspneabut no emesis nor any diaphoresis with no radiation of the chest discomfort withthe ED evaluation at that time with indeterminate cardiac enzymes felt stable likely secondary to underlying renal disease status post bilateral nephrectomy with blood pressure labile with plan for discharge to home with follow-up with nephrology and cardiology as they are working on a regimen to improve her blood pressure control with also unremarkable chest x-ray and EKG with no acute evidence of ischemia now presenting again to the [facility] ED on 03/29/2025 with ongoing dyspnea in addition to a nonproductive cough reportingthat she is actually at her dry weight with persistent pressure now on the left side of her chest with also an episode of burning sensation in the ED with at that time incidentally noted 10 beat run of V. tach with elevated persistent blood pressures despite recently initiated regimen of telmisartan, digoxin and Coreg prompting repeat ED evaluation. Workup in the ED included T98, heart rate64, BP 174/61, respiratory rate 16, 94% on room air with most recent repeat vitals T98.4, heart rate 65, BP 197/65, respiratory rate 20, 95% room air, CBC with WBC 4.2, hemoglobin 8.8, MCV 91.2, platelet 220 with lymphopenia, coags with INR 2.1, BMP with chloride 94, BUN/creatinine 19/5.66, GFR 8, glucose 101, magnesium 2.0, troponin initial 62 with repeat delta 2-hour pending, chest x-raywith basilar atelectasis, cardiomegaly with mild congestion, bilateral pleural effusions with no significant change since prior evaluation, CT chest with cardiomegaly with small pericardial effusion, scattered mediastinal lymph nodes likely reactive, EKG with SR with mildly prolonged QTC, T wave morphology changeof unclear significance with no acute evidence of ischemia similar to prior. Inthe ED patient ministered hydralazine 10 mg IV x 1. PFSH Medical History Polycystic kidney disease Sudden cardiac Hypertriglyceridemia Hyperlipidemia History of torsades de pointes Atherosclerosis of coronary artery of [place] without angina pectoris Syncope and collapse Ventricular fibrillation Ischemic cardiomyopathy ESRD (end stage renal disease) on dialysis Nonsustained ventricular tachycardia History of recurrent miscarriages, not currently History of DVT (deep vein thrombosis) Congenital polycystic kidney disease History of allergic rhinitis Obesity Benign essential hypertension Home Medications ?Medication ?Instructions ?Recorded ?Last Taken ?Type sertraline 50 mg tablet 75 mg PO QHS depression 01/0803/15/23 History cholecalciferol (vitamin D3) 25 1,000 unit PO QDAY 03/15/23 History mcg (1,000 unit) tablet sevelamer carbonate 800 mg tablet 4,000 mg PO TID 30 d ays #90 tabs 06/11/21 03/15/23 History calcium carbonate (Tums) 400 mg PO BID 03/30/2203/15 History nitroglycerin 0.4 mg sublingual 0.4 mg sublingual Q5M PRN Chest 10/14/22 03/15/23 Rx tablet Pain #25 tabs ipratropium bromide 21 mcg (0.03 2 spray intranasal DA BHANU 05/10/23 Unknown History %) nasal spray atorvastatin 10 mg tablet 10 mg PO DAILY #30 tabs 10/02 Unknown Rx levothyroxine 25 mcg tablet 25 mcg PO QDAY 10/11/24 Un known History vitamin B complex-vitamin C-folic 1 tab PO QDAY Unknown History acid 0.8 mg tablet (Rani-Yahir) warfarin 2 mg tablet 9 mg PO SUTUTHSA 10/11/24 Un known History warfarin 3 mg tablet 8 mg PO MOWEFR 10/11/24 Unkn own History zolpidem 10 mg tablet 10 mg PO QHS PRN insomnia Unknown History digoxin 125 mcg (0.125 mg) tablet 125 mcg PO QODAY #30 tabs 01/09/25 Unknown Rx carvedilol 6.25 mg tablet 6.25 mg PO BID blood pressur e 03/29/25 Unknown History telmisartan 40 mg tablet 40 mg PO BID blood pressure 03/29/25 Unknown History Allergy/AdvReac Type Severity Reaction Status Date / Time amoxicillin Allergy Rash Verified 03/29/25 15:14 doxercalciferol (From Allergy Hives Verified 03/29/25 15:14 Hectorol) etodolac Allergy Rash Verified 03/29/25 15:14 Penicillins (PCN) Allergy Rash Verified 03/29/25 15:14 sulfamethoxazole (From Allergy Rash Verified 03/29/25 15:14 Bactrim) tramadol Allergy Rash Verified 03/29/25 15:14 trimethoprim (From Bactrim) Allergy Rash Verified 03/29/25 15:14 strawberry AdvReac Vomiting Verified 03/29/25 15:14 Family History Father Hypertension Kidney disease Mother Diabetes Family History no significant family his Surgical History Hx of kidney removal History of implantable cardiac defibrillator (ICD) (11/22/19) History of coronary artery stent placement (04/22/16) fistulogram History of thyroid surgery Surgical History no surgical history Social History household members: none Smoking Status: Never smoker alcohol intake: never substance use type: does not use diet: other caffeine: No what type of physical activity do you participate in: none seatbelt use: always do you feel safe at home: Yes ROS ROS Narrative Admission Review of Systems: CONSTITUTIONAL: No weight loss, fever, chills, + weakness or fatigue. HEENT: Eyes: No visual loss, blurred vision, double vision or yellow sclerae. Ears, Nose, Throat: No hearing loss, sneezing, congestion, runny nose or sore throat. SKIN: No rash or itching, lesions, wounds. CARDIOVASCULAR: + Chest pain/burning sensation. No specific palpitations, edema, orthopnea, syncopal events. RESPIRATORY: + Dyspnea with nonproductive cough. No wheezing, hemoptysis. GASTROINTESTINAL: No anorexia, nausea, vomiting or diarrhea, abdominal pain, melena, BRBPR. GENITOURINARY: No dysuria, frequency, urgency or retention. NEUROLOGICAL: No headache, dizziness, syncope, paralysis, ataxia, numbness or tingling in the extremities, focal weakness, change in bowel or bladder control,seizure. MUSCULOSKELETAL: No muscle, back pain, joint pain or stiffness. HEMATOLOGIC: + Chronic anemia, easy bleeding/bruising. LYMPHATICS: No enlarged nodes. No history of splenectomy. PSYCHIATRIC: + History of anxiety and depression. ENDOCRINOLOGIC: No reports of sweating, cold or heat intolerance. No polyuria orpolydipsia. ALLERGIES: + History of hives, allergic rhinitis. Vital Signs Vital Signs Vital Signs: 03/29/25 15:14 03/29/25 16:13 03/29/25 17:00 Temperature 98 F Temperature Source Oral Pulse Rate 64 61 65 Respiratory Rate 16 16 Blood Pressure 174/61 H 172/61 H 196/66 H Blood Pressure Mean 98 98 109 Pulse Ox 94 93 94 Oxygen Delivery Method Room Air Room Air Room Air 03/29/25 18:00 03/29/25 19:00 03/29/25 19:29 Temperature 98.4 F Temperature Source Pulse Rate 65 65 65 Respiratory Rate 20 H 20 H 20 H Blood Pressure 181/58 H 193/62 H 197/65 H Blood Pressure Mean 99 105 109 Pulse Ox 95 96 95 Oxygen Delivery Method Room Air Room Air Weight Weight: 182 lb 15.739 oz Body Mass Index (BMI) 33.5 Physical Exam Narrative Physical Examination: General: Awake, alert, oriented x 3 and cooperative, seated upright in the bed, notes currently mild generalized headache there is no current chest pain. Skin: Normal color, normal turgor, no icterus, no cyanosis except occasional stage ecchymoses, abrasions. HEENT: AT/NC, EOMI, PERRLA, mildly dry MM, no carotid bruits or JVD noted. Lungs: Mildly diminished, greater bases, poor effort, no rales, ronchi or wheezing, no pain elicited with palpation of the anterior chest. Heart: Regular rate and rhythm; no gallop, rub audible. Abdomen: Soft, obese, NTTP, ND, mildly hyperactive BS, no appreciated HSM. Extremities: No cyanosis, no clubbing, mild ankle not markedly pitting edema. Neurological: Patient awake, alert, oriented as noted, cognitive function intact; pupils equally reactive to light and accommodation, cranial nerves grossly normal, moving all 4 extremities, no focal deficits, strength mildly to moderately globally decreased. Psychiatric: Affect appears fatigued, no acute evidence of depressive or anxietyfeelings, does have a history of insomnia. Results Lab / Micro Data 03/29/25 16:20 03/29/25 16:20 Labs: Laboratory Results - last 24 hr 03/29/25 16:03: Magnesium 2.0 03/29/25 16:20: WBC 4.2 L, RBC 2.96 L, Hgb 8.8 L, Hct 27.0 L, MCV 91.2, MCH 29.7, MCHC 32.6, RDW Std Deviation 52.8 H, RDW Coeff of [place]ana 16.9 H, Plt Count 220, MPV 9.2, Immature Gran % (Auto) 0.200, Neut % (Auto) 67.8, Lymph % (Auto) 15.8 L, [place] % (Auto) 8.0, Eos % (Auto) 7.5 H, Baso % (Auto) 0.7, Absolute Neuts(auto) 2.9, Absolute Lymphs (auto) 0.67 L, Nucleated RBC % 0, PT 24.1 H, INR 2.1, Sodium 139, Potassium 3.7, Chloride 94 L, Carbon Dioxide 30.5, Anion Gap 14, BUN 19, Creatinine 5.66 H, Estim Creat Clear Calc 10.56 L, Est GFR (MDRD) Non-Af 8 L, BUN/Creatinine Ratio 3.4 L, Glucose 101 H, Calcium 7.9, Troponin T High Sens 62 H* Imaging Radiology Impression Chest X-Ray 03/29/25 16:33 IMPRESSION: 1. Bibasilar atelectasis or pneumonia. 2. Cardiomegaly with mild congestion. 3. No significant change from the prior exam. 4. Bilateral pleural effusions. Reading Location: [facility] Chest CT 03/29/25 18:15 IMPRESSION: 1. Cardiomegaly with small pericardial effusion. 2. Scattered mediastinal lymph nodes some of which are upper limits of normal in size and are most likely reactive lymph nodes. Reading Location: [facility] Assessment & Plan Assessment/Plan (1) Chest pressure: PLAN: Plan The patient is a 59 y/o F w/ PMHx: Polycystic kidney disease status post bilateral nephrectomies ESRD on HD M/W/F, Chronic normocytic anemia/AOCD, Orthostatic hypotension, CAD, PAF, history torsades/VT, Hypothyroidism, Obesity,HTN, HLD, Anxiety and Depression, recent ED evaluation 03/28/2025 secondary to chest pressure occurring during dialysis and intermittently in the last several weeks lasting approximately an hour in the substernal region described as mild to moderate usually occurring dialysis with associated nausea as well as dyspneabut no emesis nor any diaphoresis with no radiation of the chest discomfort withthe ED evaluation at that time with indeterminate cardiac enzymes felt stable likely secondary to underlying renal disease status post bilateral nephrectomy with blood pressure labile with plan for discharge to home with follow-up with nephrology and cardiology as they are working on a regimen to improve her blood pressure control with also unremarkable chest x-ray and EKG with no acute evidence of ischemia now presenting again to the [facility] ED on 03/29/2025 with ongoing dyspnea in addition to a nonproductive cough reportingthat she is actually at her dry weight with persistent pressure now on the left side of her chest with also an episode of burning sensation in the ED with at that time incidentally noted 10 beat run of V. tach with elevated persistent blood pressures despite recently initiated regimen of telmisartan, digoxin and Coreg prompting repeat ED evaluation. #1. Concern Accelerated Hypertension/Urgency (suspect enzymes indeterminant secondary to her renal disease) with associated Chest Pain with incidentally noted small pericardial effusion: EKG with SR with mildly prolonged QTC, T wave morphology change of unclear significance with no acute evidence of ischemia similar to prior; however, patient did have burst of VT in the ED suspected to be symptomatic, CXR w/ with bibasilar atelectasis, cardiomegaly with mild congestion, bilateral pleural effusions, initial trop 62 with repeat delta pending. Will admit to PCU, place on a monitored bed to assure no acute myocardial infarction with serial cardiac enzymes and EKGs. Magnesium level perED normal. Will monitor EKGs for QTc and adjust/alter/avoid medications as needed. Will obtain repeat echocardiogram given noted pericardial effusion to be cautious. ESR and CRP requested for trending purposes although would expect some elevation given underlying renal disease. If repeat serial cardiac enzymesremain similar will plan a.m. cardiac stress testing. ECHO requested given effusion noted. NG TD will be initiated, morphine. Interrogation attempted in the ED with noted AF with no firing. #2. Polycystic kidney disease status post bilateral nephrectomy with ESRD: Patient with ongoing dialysis Tuesday, Tuesday, Tuesday, encourage continued follow-up with nephrology given issues with blood pressure and low threshold to consult given they have been working with cardiology directly for an improved hypertensive regimen. Will continue patient home several [place] regimen. #3. Chronic normocytic anemia/AOCD: Admission hemoglobin 8.8, MCV 91.2, baseline hemoglobin ranges primarily 9-11, most recently previous 03/28/2025 hemoglobin 9.1, will continue to trend. #4. Orthostatic hypotension: Given patient recent increased blood pressures although labile especially dialysis will hold midodrine regimen at this time. #5. CAD: Status post previous PCI 2015, will continue Coumadin, statin, Coreg, telmisartan regimen with hold parameters as needed. #6. PAF: Will continue patient home digoxin and Coumadin regimen, not on any other rate or rhythm agent of note. #7. History of torsades, recent as noted symptomatic VT burst: Status post previous AICD placement 2019, Will continue digoxin, coreg regimen. Interrogation attempted in the ED with noted AF with no firing. #8. Hypothyroidism: Will continue patient levothyroxine regimen, TSH requested #9. Obesity: Weight loss and lifestyle changes encouraged. #10. Anxiety and depression: Will continue patient home sertraline regimen. #11. Hyperlipidemia: Will continue patient on statin therapy, FLP in AM. #12. DVT prophylaxis: Coumadin with INR trending. #13. CODE status: Patient NATALIIA is her daughter who is present and living will is currently in place. Discussed CODE status at length including difference between FULL code, DNR-CCA and DNR-CC status. Following discussions about the differences in these status, requested Full Code status. Advanced Care Planning Face to Face Time: 16 minutes. Charges/Coding Visit Charges Inpatient E&M: 62523 Init Hosp L3 Procedures Hospitalists Procedures: 51271 Advncd Care Plan 30 Min 03/29/252041 <Electronically signed by Saadia Valencia MD> Cosigner Signature (if applicable): CC: Dr. Saadia Valencia MD; Dr. Trevor Vieyra MD~ Signed [facility] Work Phone: Hospital Discharge instructions Additional Instructions [facility] Phone: Hospital Discharge instructions Additional Instructions Take the digoxin every other day starting 2 days from now. You will need to have a digoxin level checked. Follow-up with your portrait photographer in approximately 2 to 3 weeks. Return with elevated heart rate, new or worsening symptoms.[facility] Work Phone: progress note Author Michelle Bee [facility] Note Date/Time March 29, 2025 11:20pm [facility] Medical Records Department [address] [place] [address] Progress Note - Hospitalist 03/29/25 2303 MR#: [id number] Acct: [id number] Name: SPENCER REDDING Rep #:[id number] : 1965 59 From: Michelle Frye PCP: Dr. Trevor Vieyra MD Status:ADM ISAIAS Location: [place] [address] Hospitalist Note C/o burning in her chest, repeat EKG performed at 2226-No STEMI, no change except for continued prolongation of QT/QTc lengths, 502/537ms up to 510/558ms, when compared to EKG from ER time at 2013. Noted EKG from 03.28.25 with QT/QTc of472/512ms. Reviewed current medication list for QT prolonging medications: Zolpidem was not continued from home med list; stopped ondansetron, prochlorperazine, and sertraline. Pharmacy asked to review medlist as well, [facility] taken. 03/29/252319 <Electronically signed by Michelle DEE> Cosigner Signature (if applicable): CC: ~ Signed [facility] Work Phone: progress note Author Sudarshan Garcia [facility] Note Date/Time March 30, 2025 2:54pm [facility] Medical Records Department [address] [place] [address] Progress Note - Hospitalist 03/30/25 0742 MR#: [id number] Acct: [id number] Name: SPENCER REDDING Rep #:[id number] : 1965 59 From: Sudarshan Martinez PCP: Dr. Trevor iVeyra MD Status:ADM ISAIAS Location: [place] [address] Reason for Visit Chief Complaint: Chest pain, Dyspnea, elevated BP. Objective Data Objective Data Vital Signs: Vital Signs Temp Pulse Resp BP Pulse Ox O2 Del Method 97.8 F 64 16 180/57 H 93 Room Air 03/30/25 04:20 03/30/25 04:20 03/30/25 04:20 03/30/25 04:20 03/30/25 07:29 03/30/25 07:29 Oxygen Delivery Method Room Air Weight: 176 lb 12.972 oz Body Mass Index (BMI) 32.3 Intake & Output: Intake and Output for Last 24 Hours 03/28/25 03/29/25 03/30/25 23:59 23:59 23:59 Intake Total 400 / 400 0 / 0 Balance 400 / 400 0 / 0 Lab / Micro Data 03/30/25 05:22 03/30/25 05:22 Labs: Laboratory Results - last 24 hr 03/29/25 16:03: Magnesium 2.0 03/29/25 16:20: WBC 4.2 L, RBC 2.96 L, Hgb 8.8 L, Hct 27.0 L, MCV 91.2, MCH 29.7, MCHC 32.6, RDW Std Deviation 52.8 H, RDW Coeff of Tana 16.9 H, Plt Count 220, MPV 9.2, Immature Gran % (Auto) 0.200, Neut % (Auto) 67.8, Lymph % (Auto) 15.8 L, [place] % (Auto) 8.0, Eos % (Auto) 7.5 H, Baso % (Auto) 0.7, Absolute Neuts(auto) 2.9, Absolute Lymphs (auto) 0.67 L, Nucleated RBC % 0, ESR 6, PT 24.1 H, INR 2.1, Sodium 139, Potassium 3.7, Chloride 94 L, Carbon Dioxide 30.5, Anion Gap 14, BUN 19, Creatinine 5.66 H, Estim Creat Clear Calc 10.56 L, Est GFR (MDRD) Non-Af 8 L, BUN/Creatinine Ratio 3.4 L, Glucose 101 H, Calcium 7.9, Troponin T High Sens 62 H* 03/29/25 18:13: Troponin T Hi Sens 2 Hr 63 H*, C-React Prot Ext Range < 3.00 03/29/25 21:00: Troponin T Hi Sens 4Hr 66 H* 03/30/25 05:22: ESR 4, Sodium 136, Potassium 3.9, Chloride 95 L, Carbon Dioxide 27.1, Anion Gap 15, BUN 27 H, Creatinine 7.27 H, Estim Creat Clear Calc 8.07 L*,Est GFR (MDRD) Non-Af 6 L, BUN/Creatinine Ratio 3.6 L, Glucose 102 H, Calcium 8.2, Phosphorus 4.0, Magnesium 2.3 H, Total Bilirubin 0.54, AST 23, ALT 19, Alkaline Phosphatase 47, C-React Prot Ext Range < 3.00, Total Protein 5.8 L, Albumin 3.6, Globulin 2.2, Albumin/Globulin Ratio 1.6, TSH 3.440 Radiography Diagnostic Testing: Radiology Impression Chest X-Ray 03/29/25 16:33 IMPRESSION: 1. Bibasilar atelectasis or pneumonia. 2. Cardiomegaly with mild congestion. 3. No significant change from the prior exam. 4. Bilateral pleural effusions. Reading Location: [facility] Chest CT 03/29/25 18:15 IMPRESSION: 1. Cardiomegaly with small pericardial effusion. 2. Scattered mediastinal lymph nodes some of which are upper limits of normal in size and are most likely reactive lymph nodes. Reading Location: [facility] Rhythm Strip Rhythm Strip: Sinus Rhythm Rate: 62 Ectopy: None Physical Exam Narrative Patient said she has high blood pressure at home systolic more than 200s. Yesterday in dialysis session, she felt chest pain more like a squeezing sensation/tightness over left chest without radiation. She was not feeling short of breath though she was put on oxygen. No syncope. She had a stress test in the morning. She has bilateral mastectomy in the past for polycystic kidney disease. She is on hemodialysis for 17 years. Loose bowel movement yesterday. Denies URI symptoms Physical exam General: Alert, Oriented x3, Cooperative HEENT: Atraumatic, PERRLA, EOMI, Normocephalic. Oral: No Gingival or Mucosal Lesions/ Ulcerations Neck: Supple, No JVD, Negative Carotid Bruits Chest wall/Lungs: Air entry diminished in bilateral lung bases. No crepitation/rhonchi Cardiovascular: Regular rate and rhythm, Normal S1,S2, No M/G/R Abdomen: Bowel Sounds Present, Soft, Non Tender, Non-Distended : Anuric. Status post bilateral nephrectomy. Extremities: No edema, Capillary Refill Less than 3 Seconds Skin: No rashes, No breakdown Musculoskeletal: No Tenderness to Palpation of Joints or Extremities Neurological: Cranial nerves II-XII grossly intact, DTR 2+/4. No acute focal neurological deficit. Psych/Mental Status: Normal Affect, Appropriate. Assessment & Plan Assessment/Plan (1) Chest pressure: PLAN: Plan The patient is a 59 y/o F who was admitted with left-sided chest pain and upper abdominal pain while on dialysis. She also noted 10 weeks of NSVT. She states her blood pressure at home is more than 200 systolic. #1. Hypertensive urgency: Patient blood pressure is high chronically systolic more than 200. At home patient is on telmisartan, carvedilol and digoxin but not on diuretic. Patient is started on chlorthalidone 12.5 mg daily. On IV hydralazine and labetalol as needed SBP more than 180 mmHg. Blood pressure still high 180/57, 172/56. and blood pressure is controlled about systolic 150spatient can be discharged and advised follow-up with director of player personnel for better control of blood pressure. 2. Atypical chest pain, localized: ACS ruled out. Twelve-lead EKG nondiagnostic of ACS. Serial troponins were mildly elevated 60-63 and 66. patient had nuclear stress test negative for acute ischemia. ACS ruled out. 2Decho shows EF 65% with stage II diastolic dysfunction, mild TR PASP 43. Overallsuggestive of chronic HFpEF #2. Polycystic kidney disease status post bilateral nephrectomy with ESRD: Patient with ongoing dialysis Tuesday, Tuesday, Tuesday,: Patient did not have any need for hemodialysis. Operations Coordinator consulted electrolytes in normal limit. BUN/creatinine high 27/7.27. Serum magnesium 2.0. #3. Chronic normocytic anemia/AOCD: Admission hemoglobin 8.8, MCV 91.2, baseline hemoglobin ranges primarily 9-11, most recently previous 03/28/2025 hemoglobin 9.1, hemoglobin 8.8. On baseline #4. Orthostatic hypotension: Given patient recent increased blood pressures although labile especially dialysis will hold midodrine regimen at this time. #5. CAD: Status post previous PCI 2015, continue Coumadin, statin, Coreg, telmisartan regimen with hold parameters as needed. #6. PAF: continue patient home digoxin and Coumadin regimen, INR 2.3, therapeutic #7. History of torsades, recent as noted symptomatic VT burst: Status post previous AICD placement 2019, Will continue digoxin, coreg regimen. Interrogation attempted in the ED with noted AF with no firing. #8. Hypothyroidism: On levothyroxine. TSH normal. #9. Obesity: Weight loss and lifestyle changes encouraged. #10. Anxiety and depression: Will continue patient home sertraline regimen. #11. Hyperlipidemia: Will continue patient on statin therapy, #12. DVT prophylaxis: Coumadin with INR trending. #13. CODE status: Patient NATALIIA is her daughter who is present and living will is currently in place. Discussed CODE status at length including difference between FULL code, DNR-CCA and DNR-CC status. Following discussions about the differences in these status, requested Full Code status. Laboratory Results 03/29/25 16:03: Magnesium 2.0 03/29/25 16:20: WBC 4.2 L, RBC 2.96 L, Hgb 8.8 L, Hct 27.0 L, MCV 91.2, MCH 29.7, MCHC 32.6, RDW Std Deviation 52.8 H, RDW Coeff of Tana 16.9 H, Plt Count 220, MPV 9.2, Immature Gran % (Auto) 0.200, Neut % (Auto) 67.8, Lymph % (Auto) 15.8 L, [place] % (Auto) 8.0, Eos % (Auto) 7.5 H, Baso % (Auto) 0.7, Absolute Neuts(auto) 2.9, Absolute Lymphs (auto) 0.67 L, Nucleated RBC % 0, ESR 6, PT 24.1 H, INR 2.1, Sodium 139, Potassium 3.7, Chloride 94 L, Carbon Dioxide 30.5, Anion Gap 14, BUN 19, Creatinine 5.66 H, Estim Creat Clear Calc 10.56 L, Est GFR (MDRD) Non-Af 8 L, BUN/Creatinine Ratio 3.4 L, Glucose 101 H, Calcium 7.9, Troponin T High Sens 62 H* 03/29/25 18:13: Troponin T Hi Sens 2 Hr 63 H*, C-React Prot Ext Range < 3.00 03/29/25 21:00: Troponin T Hi Sens 4Hr 66 H* 03/30/25 05:22: WBC 4.5, RBC 2.93 L, Hgb 8.6 L, Hct 26.9 L, MCV 91.8, MCH 29.4, MCHC 32.0, RDW Std Deviation 53.4 H, RDW Coeff of Tana 17.2 H, Plt Count 230, MPV10.1, Immature Gran % (Auto) 0.400, Neut % (Auto) 70.6 H, Lymph % (Auto) 14.4 L,[place] % (Auto) 7.3, Eos % (Auto) 6.4 H, Baso % (Auto) 0.9, Absolute Neuts (auto) 3.2, Absolute Lymphs (auto) 0.65 L, Nucleated RBC % 0, ESR 4, PT 26.2 H, INR 2.3, Sodium 136, Potassium 3.9, Chloride 95 L, Carbon Dioxide 27.1, Anion Gap 15, BUN 27 H, Creatinine 7.27 H, Estim Creat Clear Calc 8.07 L*, Est GFR (MDRD) Non-Af 6 L, BUN/Creatinine Ratio 3.6 L, Glucose 102 H, Calcium 8.2, Phosphorus 4.0, Magnesium 2.3 H, Total Bilirubin 0.54, AST 23, ALT 19, Alkaline Phosphatase 47, C-React Prot Ext Range < 3.00, Total Protein 5.8 L, Albumin 3.6, Globulin 2.2, Albumin/Globulin Ratio 1.6, TSH 3.440 Echo 03/30/2025 Interpretation Summary Normal LV size. Left ventricular systolic function is normal. The left ventricular ejection fraction is 65 %. Stage 2 diastolic dysfunction. Pulmonary artery systolic pressure is 40 mmHg. Charges/Coding Visit Charges Inpatient E&M: 80796 Subs Hosp L2 03/30/25 1450 <Electronically signed by Sudarshan Garcia MD> Cosigner Signature (if applicable): CC: ~ Signed ADDENDUM by Dr. Sudarshan Garcia MD on 03/30/25 at 1454 Addendum Patient also complained of nausea and loose bowel movement. Has chronic diarrhea. Home supportive treatment and Imodium. Patient also had 10 beats of NSVT. Pacemaker interrogation ordered as per family request. 03/30/25 1454<Electronically signed by Sudarshan Garcia MD> Cosigner Signature (if applicable): cc: ~* Signed [facility] Work Phone: Progress note Author Sudarshan Garcia [facility] Note Date/Time March 30, 2025 7:48pm [facility] Medical Records Department [address] [place] [address] Progress Note - Hospitalist 03/30/251941 MR#: [id number] Acct: [id number] Name: SPENCER REDDING Rep #:[id number] : 1965 59 From: Sudarshan Martinez PCP: Dr. Trevor Vieyra MD Status:ADM ISAIAS Location: [place] [address] Hospitalist Note Patient had runs of NSVT about 7 to 8 weeks since afternoon. one strip looked like changing QRS axes therefore suspicious of torsade. Magnesium was 2.20, confirmed). Due to recurrent NSVT, twelve-lead EKG was done. QTc interval 543 ms. 12 lead EKG shows NSR 66b/m, pr 172 ms. She has PPM/ICD. Pacemaker interrogation was ordered but couldnt be done. Undercar Specialist consulted.Magnesium sulphate 2 gm IV one dose ordered for Prolonged QTc. Operations Coordinator is also consulted. Clinical Impression(s) from Imaging Studies Chest X-Ray 03/29/25 16:33 IMPRESSION: 1. Bibasilar atelectasis or pneumonia. 2. Cardiomegaly with mild congestion. 3. No significant change from the prior exam. 4. Bilateral pleural effusions. Reading Location: [facility] Chest CT 03/29/25 18:15 IMPRESSION: 1. Cardiomegaly with small pericardial effusion. 2. Scattered mediastinal lymph nodes some of which are upper limits of normal in size and are most likely reactive lymph nodes. Reading Location: [facility] Echocardiogram 03/29/25 20:38 Interpretation Summary Normal LV size. Left ventricular systolic function is normal. The left ventricular ejection fraction is 65 %. Stage 2 diastolic dysfunction. Pulmonary artery systolic pressure is 40 mmHg. Ordering Physician: Saadia Valencia Performed By: Jane Arnold, [facility] Abdomen X-Ray 03/30/25 16:05 IMPRESSION: Nonspecific findings. - Findings and recommendations discussed above in detail. Reading Location: [facility] 03/30/251947 <Electronically signed by Sudarshan Garcia MD> Cosigner Signature (if applicable): CC: ~ Signed [facility] Work Phone: Progress note Author Saadia Valencia [facility] Note Date/Time March 30, 2025 8:03pm [facility] Medical Records Department [address] [place] [address] Progress Note - Hospitalist 03/30/252001 MR#: [id number] Acct: [id number] Name: SPENCER REDDING Rep #:[id number] : 1965 59 From: Saadia Valencia MD PCP: Dr. Trevor Vieyra MD Status:ADM ISAIAS Location: [place] [address] Hospitalist Note Patient with intermittent bursts torsades, symptomatic. Hospitalist team reviewed case with Cardiology Dr. Garvin, recommended transition to the ICU and will initiate Isoproterenol at 5 mcg/min. Will also continue mag infusion. Changed her status to full admission. Senior Grants Officer and PCU updated about plan of care. 03/30/252002 <Electronically signed by Saadia Vlaencia MD> Cosigner Signature (if applicable): CC: ~ Signed [facility] Work Phone: Prouszfc note Author Armando Booker [facility] Note Date/Time March 31, 2025 9:56am [facility] Medical Records Department [address] [place] [address] Progress Note - Hospitalist 03/31/2551 MR#: [id number] Acct: [id number] Name: SPENCER REDDING Rep #:[id number] : 1965 59 From: Armando paul MD PCP: Dr. Trevor Vieyra MD Status:ADM IN Location: ICU ICU02-1 Subjective Subjective She went into torsades last night and had to be transferred back to the ICU. Nochest pain or lightheadedness. Objective Data Objective Data Vital Signs: Vital Signs Temp Pulse Resp BP Pulse Ox O2 Del Method O2 Flow Rate 98.0 F 72 18 151/65 H 95 Room Air 2 03/30/25 20:30 03/31/25 09:00 03/31/25 09:00 03/31/25 09:00 03/31/25 09:00 03/31/25 09:00 03/31/25 06:00 Oxygen Flow Rate (L/min) 2 Oxygen Delivery Method Room Air Weight: 178 lb 5.663 oz Body Mass Index (BMI) 32.5 Intake & Output: Intake and Output for Last 24 Hours 03/30/25 03/31/25 04/01/25 03:59 03:59 03:59 Intake Total 400 / 400 564 / 564 386.88 / 386.88 Output Total 0 / 0 0 / 0 Balance 400 / 400 564 / 564 386.88 / 386.88 Lab / Micro Data 03/31/25 06:08 03/31/25 06:08 Labs: Laboratory Results - last 24 hr 03/31/25 06:08: WBC 6.5, RBC 3.06 L, Hgb 9.1 L, Hct 27.7 L, MCV 90.5, MCH 29.7, MCHC 32.9, RDW Std Deviation 54.9 H, RDW Coeff of Tana 17.6 H, Plt Count 232, MPV9.1, Immature Gran % (Auto) 0.300, Neut % (Auto) 77.4 H, Lymph % (Auto) 11.1 L, [place] % (Auto) 8.0, Eos % (Auto) 2.9, Baso % (Auto) 0.3, Absolute Neuts (auto) 5.0, Absolute Lymphs (auto) 0.72 L, Nucleated RBC % 0, Sodium 130 L, Potassium 3.5, Chloride 89 L, Carbon Dioxide 23.0, Anion Gap 18 H, BUN 37 H, Creatinine 9.32 H*, Estim Creat Clear Calc 6.33 L*, Est GFR (MDRD) Non-Af 4 L, BUN/Creatinine Ratio 4.0 L, Glucose 156 H, Calcium 8.0, Magnesium 2.8 H, Triglycerides 166, Cholesterol 155, LDL Cholesterol, Calc 95, VLDL Cholesterol 33, HDL Cholesterol 27 L, Cholesterol/HDL Ratio 5.83 Radiography Diagnostic Testing: Radiology Impression Echocardiogram 03/29/25 20:38 Interpretation Summary Normal LV size. Left ventricular systolic function is normal. The left ventricular ejection fraction is 65 %. Stage 2 diastolic dysfunction. Pulmonary artery systolic pressure is 40 mmHg. Ordering Physician: Saadia Valencia Performed By: Jane Arnold RDCS Abdomen X-Ray 03/30/25 16:05 IMPRESSION: Nonspecific findings. - Findings and recommendations discussed above in detail. Reading Location: [facility] Rhythm Strip Rhythm Strip: Sinus Rhythm Rate: 62 Ectopy: None Physical Exam Narrative General: Alert, Oriented x3, Cooperative, No apparent distress HEENT: Atraumatic, PERRLA, EOMI, Normocephalic Oral: Moist Mucosa Neck: Supple, No JVD Lungs: Diminished, Normal air movement, No rhonchi, No wheeze, No rales Cardiovascular: Regular rate, Regular Rhythm, Normal S1, Normal S2, No murmurs Abdomen: Soft, Non Tender, Non-Distended, No Hepato-splenomegaly Extremities: No edema, Capillary Refill Less than 3 Seconds Skin: No rashes, No breakdown Musculoskeletal: No Tenderness to Palpation of Joints or Extremities Neurological: No focal neurological deficits, Motor Exam 5/5 strength throughout, Sensory exam intact to light touch and pain Psych/Mental Status: Normal Affect, Appropriate Assessment & Plan Assessment/Plan (1) Chest pressure: PLAN: Plan #1. Hypertensive urgency: Patient blood pressure is high chronically systolic more than 200. At home patient is on telmisartan, carvedilol and digoxin but not on diuretic. Patient is started on chlorthalidone 12.5 mg daily. On IV hydralazine and labetalol as needed SBP more than 180 mmHg. Blood pressure still high 180/57, 172/56. and blood pressure is controlled about systolic 150spatient can be discharged and advised follow-up with director of player personnel for better control of blood pressure. 2. Atypical chest pain, localized: ACS ruled out. Twelve-lead EKG nondiagnostic of ACS. Serial troponins were mildly elevated 60-63 and 66. patient had nuclear stress test negative for acute ischemia. ACS ruled out. 2Decho shows EF 65% with stage II diastolic dysfunction, mild TR PASP 43. Overallsuggestive of chronic HFpEF #2. Polycystic kidney disease status post bilateral nephrectomy with ESRD: Patient with ongoing dialysis Tuesday, Tuesday, Tuesday,: Patient did not have any need for hemodialysis. Operations Coordinator consulted electrolytes in normal limit. BUN/creatinine high 27/7.27. Serum magnesium 2.0. 03/31/2025: Appreciate nephrology's assistance #3. Chronic normocytic anemia/AOCD: Admission hemoglobin 8.8, MCV 91.2, baseline hemoglobin ranges primarily 9-11, most recently previous 03/28/2025 hemoglobin 9.1, hemoglobin 8.8. On baseline #4. Orthostatic hypotension: Given patient recent increased blood pressures although labile especially dialysis will hold midodrine regimen at this time. #5. CAD: Status post previous PCI 2015, continue Coumadin, statin, Coreg, telmisartan regimen with hold parameters as needed. #6. PAF: continue patient home digoxin and Coumadin regimen, INR 2.3, therapeutic #7. History of torsades, recent as noted symptomatic VT burst: Status post previous AICD placement 2019, Will continue digoxin, coreg regimen. Interrogation attempted in the ED with noted AF with no firing. 03/31/2025: Transferred to the ICU overnight for symptomatic torsades, appreciatecardiology's assistance. Will maintain potassium greater than 4 and magnesium is 2.8 today #8. Hypothyroidism: On levothyroxine. TSH normal. #9. Obesity: Weight loss and lifestyle changes encouraged. #10. Anxiety and depression: Will continue patient home sertraline regimen. #11. Hyperlipidemia: Will continue patient on statin therapy, DVT: Coumadin Charges/Coding Visit Charges Inpatient E&M: 53773 Subs Hosp L2 03/31/25 0956 <Electronically signed by Armando Booker MD> Cosigner Signature (if applicable): CC: ~ Signed [facility] Work Phone: Progress note Author Ernesto Garvin [facility] Note Date/Time April 01, 2025 7:04am [facility] Medical Records Department [address] [place] [address] Progress Note - Cardiology 04/01/25645 MR#: [id number] Acct: [id number] Name: SPENCER REDDING Rep #:[id number] : 1965 59 From: Ernesto Garvin MD PCP: Dr. Trevor Vieyra MD Status:ADM IN Location: ICU ICU02-1 Subjective Subjective Patient seen and evaluated. Doing well. No complaints. No further rhythm disturbances Objective Data Vital Signs: Vital Signs Temp Pulse Resp BP Pulse Ox O2 Del Method O2 Flow Rate 98.0 F 65 16 168/65 H 95 Nasal Cannula 2 03/30/25 20:30 04/01/25 06:00 04/01/25 06:00 04/01/25 06:00 04/01/25 06:00 04/01/25 06:00 04/01/25 06:00 Oxygen Flow Rate (L/min) 2 Oxygen Delivery Method Nasal Cannula Weight: 179 lb 7.3 oz Body Mass Index (BMI) 32.8 Intake & Output: Intake and Output for Last 24 Hours 03/30/25 03/31/25 04/01/25 23:59 23:59 23:59 Intake Total 104 / 104 1015.00 / 1015.00 Output Total 0 / 0 0 / 0 Balance 104 / 104 1015.00 / 1015.00 0 / 0 Lab / Micro Data 04/01/25 05:55 04/01/25 05:55 Labs: Laboratory Results - last 24 hr 03/31/25 06:08: Sodium 130 L, Potassium 3.5, Chloride 89 L, Carbon Dioxide 23.0,Anion Gap 18 H, BUN 37 H, Creatinine 9.32 H*, Estim Creat Clear Calc 6.33 L*, Est GFR (MDRD) Non-Af 4 L, BUN/Creatinine Ratio 4.0 L, Glucose 156 H, Calcium 8.0, Magnesium 2.8 H, Triglycerides 166, Cholesterol 155, LDL Cholesterol, Calc 95, VLDL Cholesterol 33, HDL Cholesterol 27 L, Cholesterol/HDL Ratio 5.83 03/31/25 15:15: PT 29.6 H, INR 2.7 04/01/25 05:55: WBC 7.2, RBC 3.02 L, Hgb 9.1 L, Hct 27.6 L, MCV 91.4, MCH 30.1, MCHC 33.0, RDW Std Deviation 58.0 H, RDW Coeff of Tana 18.0 H, Plt Count 246, MPV9.2, Immature Gran % (Auto) 0.400, Neut % (Auto) 66.8, Lymph % (Auto) 16.4 L, [place] % (Auto) 7.5, Eos % (Auto) 8.2 H, Baso % (Auto) 0.7, Absolute Neuts (auto) 4.8, Absolute Lymphs (auto) 1.18, Nucleated RBC % 0, Sodium 131 L, Potassium 4.5, Chloride 91 L, Carbon Dioxide 22.4, Anion Gap 18 H, BUN 50 H, Creatinine 11.10 H*, Estim Creat Clear Calc 5.33 L*, Est GFR (MDRD) Non-Af 4 L, BUN/Creatinine Ratio 4.5 L, Glucose 91, Calcium 7.7 Rhythm Strip Rhythm Strip: Sinus Rhythm Rate: 62 Ectopy: None Cardiology Labs/Tests 03/31/25 06:08: Sodium 130 L, Potassium 3.5, Chloride 89 L, Carbon Dioxide 23.0,Anion Gap 18 H, BUN 37 H, Creatinine 9.32 H*, Est GFR (MDRD) Non-Af 4 L, BUN/Creatinine Ratio 4.0 L, Glucose 156 H, Calcium 8.0, Magnesium 2.8 H, Triglycerides 166, Cholesterol 155, VLDL Cholesterol 33, HDL Cholesterol 27 L, Cholesterol/HDL Ratio 5.83 03/31/25 15:15: PT 29.6 H, INR 2.7 04/01/25 05:55: WBC 7.2, RBC 3.02 L, Hgb 9.1 L, Hct 27.6 L, MCV 91.4, MCH 30.1, MCHC 33.0, Plt Count 246, MPV 9.2, Immature Gran % (Auto) 0.400, Neut % (Auto) 66.8, Lymph % (Auto) 16.4 L, [place] % (Auto) 7.5, Eos % (Auto) 8.2 H, Baso % (Auto) 0.7, Absolute Neuts (auto) 4.8, Nucleated RBC % 0, Sodium 131 L, Potassium 4.5, Chloride 91 L, Carbon Dioxide 22.4, Anion Gap 18 H, BUN 50 H, Creatinine 11.10 H*, Est GFR (MDRD) Non-Af 4 L, BUN/Creatinine Ratio 4.5 L, Glucose 91, Calcium 7.7 Rhythm: EKG: ECHO: Stress Test: Cardiac Cath: PCI: CT Surgery: Holter monitor: EPS: PPM: CXR: Chest CT Scan: Physical Exam Const alert, oriented x3 and no apparent distress General Appearance: cooperative HEENT hearing grossly normal bilaterally Head and Scalp: atraumatic Eyes EOMs intact bilaterally Neck General: normal visual inspection Chest inspection of chest normal and palpation of chest normal Resp normal respiratory effort Auscultation: clear to auscultation bilaterally Cardio regular rate, regular rhythm, S1 normal heart sound and S2 normal heart sound Jugular Venous Distention: JVD GI normal to inspection, nondistended, normoactive bowel sounds Extremity normal capillary refill and no pedal edema Peripheral Pulses: Yes pulses 2+ throughout and femoral pulses present Skin no rashes or lesions noted Neuro oriented x3 and CN's II-XII intact bilaterally Psych Appearance: grossly normal and appropriate Assessment & Plan Assessment/Plan (1) Torsades de pointes: PLAN: She does present with symptomatic torsade de pointes. This was likely dueto digoxin. The above has resolved. Isopril can be discontinued She can undergo dialysis today then consider discharge with outpatient Holter monitor. (2) Accelerated essential hypertension: PLAN: Her blood pressure was elevated overnight. Continue current antihypertensive medications. (3) History of implantable cardiac defibrillator (ICD): PLAN: She is status post implantable defibrillator. No defibrillator dischargeshave been noted. (4) History of coronary artery stent placement: PLAN: She does have a history of coronary artery disease coronary artery stenting of the right coronary artery and the left anterior descending artery. Stress test performed during this admission demonstrates no evidence of ischemia. (5) Benign essential hypertension: PLAN: Her blood pressure is elevated and we will try and make appropriate adjustments. Echocardiogram demonstrated preserved ejection fraction of 65%. (6) Hyperlipidemia: QUALIFIERS: Hyperlipidemia type: unspecified Qualified Code(s): E78.5 - Hyperlipidemia, unspecified PLAN: She does have a history of hyperlipidemia and will continue with risk factor modification. 04/01/25 0704 <Electronically signed by Ernesto Garvin MD> Cosigner Signature (if applicable): CC: ~ Signed [facility] Work Phone: Reason for referral (narrative)No reason for referral information availableWUniversity Hospitals St. [facility] Work Phone: Summary Purpose Family History No Family History Records Found Relationship Condition Age at Onset Recorded Date/T tiffany father Hypertension Unknown Kidney disorder Unknown mother Diabetes mellitus Unknown Advance Directives No Advanced Directives Records FoundDocuments on File Type Date Recorded Patient Edger Machine Helper Expl anation Advance Directives and Living Will Power of Consulting Sme Latest Code Status on File Code Status Date Activated Date Inactivated Comments Full Code 11/22/2019 10:17 AM Full Code 11/22/2019 7:25 AM 11/22/2019 10:17 AM Documents on File Type Date Recorded Patient Edger Machine Helper Expl anation ACP-Advance Directive ACP-Power of Consulting Sme Latest Code Status on File Code Status Date Activated Date Inactivated Comments Full Code 11/22/2019 10:17 AM 11/22/2019 4:07 PM Advance Directive Response Recorded Date/ Time Advance Directives No June 3:58pm Living Will No December 11, 2019 1 :17am Power of Consulting Sme No December 11, 2019 1:17am Documents on File Type Date Recorded Patient Edger Machine Helper Expl anation Advance Directive(s) 02/15/2020 8:23 AM Documents on File Type Date Recorded Patient Edger Machine Helper Expl anation Advance Directive(s) 02/15/2020 8:23 AM Advance Directive Response Recorded Date/ Time Advance Directives No June 3:58pm Living Will No January 26, 2022 10:22am Power of Consulting Sme No January 26 10:22am Advance Directive Response Recorded Date/ Time Advance Directives No June 3:58pm Living Will No January 30, 2022 4:19pm Power of Consulting Sme No January 30 4:19pm Advance Directive Response Recorded Date/ Time Name of Medical Power of Consulting Sme Katrin sister, Jaquelin-daughter March 15, 2022 8:30am Advance Directives No June 3:58pm Living Will No March 15 022 8:30am Power of Consulting Sme Yes March 15, 2022 8:30am Advance Directive Response Recorded Date/ Time Name of Medical Power of Consulting Sme Katrin sister, Jaquelin-daughter March 15, 2022 7:30am Advance Directives No June 2:58pm Living Will No March 15 7:30am Power of Consulting Sme Yes March 15, 2022 7:30am Advance Directive Response Recorded Date/ Time Advance Directives No June 2:58pm Living Will No March 15 7:30am Power of Consulting Sme Yes March 15, 2022 7:30am Advance Directive Response Recorded Date/ Time Advance Directives No June 3:58pm Living Will No March 15 8:30am Power of Consulting Sme Yes March 15, 2022 8:30am Documents on File Type Date Recorded Patient Edger Machine Helper Expl anation Advance Directive(s) 02/28/2023 10:29 AM Advance Directive Response Recorded Date/ Time Name of Medical Power of Consulting Sme Katrin Cardoza & Jaquelin Miladis March 16, 2023 2:11pm Advance Directives No June 3:58pm Living Will No March 16 023 2:11pm Power of Consulting Sme Yes March 16, 2023 2:11pm Documents on File Type Date Recorded Patient Edger Machine Helper Expl anation Advance Directive(s) 02/28/2023 10:29 AM Advance Directive Response Recorded Date/ Time Name of Medical Power of Consulting Sme Katrin Cardoza & Jaquelin Snure March 16, 2023 1:11pm Advance Directives No June 2:58pm Living Will No March 16, 2 023 1:11pm Power of Consulting Sme Yes March 16, 2023 1:11pm Advance Directive Response Recorded Date/ Time Advance Directives No June 2:58pm Living Will No March 16, 2 023 1:11pm Power of Consulting Sme Yes March 16, 2023 1:11pm Advance Directive Response Recorded Date/ Time Advance Directives No June 3:58pm Living Will No March 16, 2 023 2:11pm Power of Consulting Sme Yes March 16, 2023 2:11pm Advance Directive Response Recorded Date/ Time Living Will No August 11 3:25am Power of Consulting Sme Yes August 11, 2024 3:25am Living Will No September 08, 2024 2:19am Power of Consulting Sme Yes September 08 2:19am Living Will No March 16, 2 023 2:11pm Power of Consulting Sme Yes March 16, 2023 2:11pm Living Will No June 10 1:53am Power of Consulting Sme Yes June 10, 2024 1:53am Living Will No July 08, 2 024 5:43pm Power of Consulting Sme Yes July 08, 2024 5:43pm Name of Medical Power of Consulting Sme LIZZETH July 08, 2024 5:43pm Living Will No July 11 1:48am Power of Consulting Sme Yes July 11, 2 025 1:48am Living Will No September 17, 2024 4:34pm Power of Consulting Sme No September 17 4:34pm Advance Directives No June 3:58pm Advance Directive Response Recorded Date/ Time Living Will No August 11 3:25am Do you have a Healthcare Power of Consulting Sme? Yes August 11, 2024 3:25am Living Will No September 08, 2024 2:19am Do you have a Healthcare Power of Consulting Sme? Yes September 08, 2024 2:19am Living Will No June 10 1:53am Do you have a Healthcare Power of Consulting Sme? Yes June 10, 2024 1:53am Living Will No July 08, 2 024 5:43pm Do you have a Healthcare Power of Consulting Sme? Yes July 08, 2024 5:43pm Name of Medical Power of Consulting Sme LIZZETH July 08, 2024 5:43pm Living Will No July 11 1:48am Do you have a Healthcare Power of Consulting Sme? Yes July 11, 2024 1:48am Living Will No September 17, 2024 4:34pm Do you have a Healthcare Power of Consulting Sme? No September 17, 2024 4:34pm Advance Directives No June 3:58pm Advance Directive Response Recorded Date/ Time Living Will No August 11 3:25am Do you have a Healthcare Power of Consulting Sme? Yes August 11, 2024 3:25am Living Will No September 08, 2024 2:19am Do you have a Healthcare Power of Consulting Sme? Yes September 08, 2024 2:19am Living Will No July 08 5:43pm Do you have a Healthcare Power of Consulting Sme? Yes July 08, 2024 5:43pm Name of Medical Power of Consulting Sme LIZZETH July 08, 2024 5:43pm Living Will No July 11 1:48am Do you have a Healthcare Power of Consulting Sme? Yes July 11, 2024 1:48am Living Will No September 17, 2024 4:34pm Do you have a Healthcare Power of Consulting Sme? No September 17, 2024 4:34pm Living Will No October 09, 2024 12:21am Do you have a Healthcare Power of Consulting Sme? Yes October 09, 2024 12:21am Advance Directives No June 3:58pm Advance Directive Response Recorded Date/ Time Living Will No August 11 3:25am Do you have a Healthcare Power of Consulting Sme? Yes August 11, 2024 3:25am Living Will No September 08, 2024 2:19am Do you have a Healthcare Power of Consulting Sme? Yes September 08, 2024 2:19am Living Will No September 17, 2024 4:34pm Do you have a Healthcare Power of Consulting Sme? No September 17, 2024 4:34pm Living Will No October 09, 2024 12:21am Do you have a Healthcare Power of Consulting Sme? Yes October 09, 2024 12:21am Living Will No November 08, 2024 12 :29am Do you have a Healthcare Power of Consulting Sme? Yes November 08, 2024 12:29am Advance Directives No June 3:58pm Advance Directive Response Recorded Date/ Time Living Will No September 08, 2024 2:19am Do you have a Healthcare Power of Consulting Sme? Yes September 08, 2024 2:19am Living Will No December 09, 2024 1 2:35am Do you have a Healthcare Power of Consulting Sme? Yes December 09, 2024 12:35am Living Will No September 17, 2024 4:34pm Do you have a Healthcare Power of Consulting Sme? No September 17, 2024 4:34pm Living Will No October 09, 2024 12:21am Do you have a Healthcare Power of Consulting Sme? Yes October 09, 2024 12:21am Living Will No November 08, 2024 12 :29am Do you have a Healthcare Power of Consulting Sme? Yes November 08, 2024 12:29am Advance Directives No June 3:58pm Advance Directive Response Recorded Date/ Time Living Will No December 09, 2024 1 2:35am Do you have a Healthcare Power of Consulting Sme? Yes December 09, 2024 12:35am Living Will No October 09, 2024 12:21am Do you have a Healthcare Power of Consulting Sme? Yes October 09, 2024 12:21am Living Will No November 08, 2024 12 :29am Do you have a Healthcare Power of Consulting Sme? Yes November 08, 2024 12:29am Advance Directives No June 3:58pm Advance Directive Response Recorded Date/ Time Living Will No December 09, 2024 1 2:35am Do you have a Healthcare Power of Consulting Sme? Yes December 09, 2024 12:35am Living Will No November 08, 2024 12 :29am Do you have a Healthcare Power of Consulting Sme? Yes November 08, 2024 12:29am Advance Directives No June 3:58pm Advance Directive Response Recorded Date/ Time Living Will No December 09, 2024 1 2:35am Do you have a Healthcare Pow er of Consulting Sme? Yes December 09, 2024 12:35am Do you have a Healthcare Pow er of Consulting Sme? Yes March 29, 2025 8:40pm Name of Medical Power of Consulting Sme Jaquelin Chen March 29, 2025 8:40pm Do you have a Healthcare Pow er of Consulting Sme? No March 28, 2025 5:05pm Advance Directives No June 3:58pm Discharge Instructions [...] or dog food bags, or a vacuum engine cleaner. Your dressing will be removed at [...] call and ask for the Interventional Radiologist automation controls specialist. Where can you learn more? Go to [email or web address] and sign in to your [employer] account. Enter P616 in the Search Health Information box to learn more about Hemodialysis Access: What to Expect at Home. If you do not have an account, please click on the Sign Up Now link. Current as of: May 26, 2016 Content Version: [id number] [employer]. Care instructions adapted under license by [employer]. If youhave questions about a medical condition or this instruction, always ask your healthcare professional. [employer] disclaims any warranty or liability for your use of this information. documented in this encounter* Instructions* Radha Woods, ANDI - COAL WHEELER - 11/22/2019 Generator Change Discharge Instructions Incision [...] symptoms occur, notify the device clinic immediately. [phone]. 5. If the area around your generator/incision [...] for Visit Chief Complaint Admit Date S/P [facility] 09/17October 11, 2024 9:07 am Reason for Visit Admit Date History of DVT (deep vein thrombosis) Ap 2024 9:07am Hypotension October 11, 2024 9:07 am Paroxysmal atrial fibrillation October 9:07am History of implantable cardiac defibrill ator (ICD) October 11, 2024 9:07am Hyperlipidemia October 11, 2024 9:07 am History of coronary artery stent placeme nt October 11, 2024 9:07am Chief Complaint Admit Date high heart rate September 17, 2024 4:0 7pm S/P 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/07 Reason for Visit Atherosclerosis of c oronary artery of [place] heart without angina pectoris Benign essential hypertension [...] Visit Atherosclerosis of c oronary artery of [place] heart without angina pectoris Benign essential hypertension History of implantable cardiac defibrillator (ICD) Hyperlipidemia Chief Complaint CAD LEXISCAN SOB 1 Y FU/ was in ER 03-15-22 Reason for Visit Atherosclerosis of c oronary artery of [place] heart without angina pectoris Benign essential hypertension History of implantable cardiac defibrillator (ICD) Hyperlipidemia Chief Complaint 6 M FU Reason for Visit History of DVT (deep vein thrombosis) Hypotension Atherosclerosis of coronary artery of [place] heart without angina pectoris History of implantable cardiac defibrillator (ICD) Hyperlipidemia Chief Complaint FU PER MMM Reason for Visit History of DVT (deep vein thrombosis) Hypotension Atherosclerosis of coronary artery of [place] heart without angina pectoris History of implantable cardiac defibrillator (ICD) Hyperlipidemia Chief Complaint FU PER MMM palpitations Reason for Visit History of DVT (deep vein thrombosis) Hypotension Atherosclerosis of coronary artery of [place] heart without angina pectoris History of implantable cardiac defibrillator (ICD) Hyperlipidemia Chief Complaint palpitations BILATERAL HAND PARESTHESIA. RX HERE 1 Y FU/PREV PFM BILAT UPPER EXT PARESTHESIA BILAT UPPER EXT PARESTHESIA Reason for Visit History of DVT (deep vein thrombosis) Hypotension Atherosclerosis of coronary artery of [place] heart without angina pectoris History of implantable cardiac defibrillator (ICD) Hyperlipidemia Chief Complaint BILATERAL HAND PARES THESIA. RX HERE 1 Y FU/PREV PFM BILAT UPPER EXT PARESTHESIA BILAT UPPER EXT PARESTHESIA Reason for Visit History of DVT (deep vein thrombosis) Hypotension Atherosclerosis of coronary artery of [place] heart without angina pectoris History of implantable cardiac defibrillator (ICD) Hyperlipidemia Chief Complaint Admit Date PALPATION July 08, 2024 4:36pm ST/COUGH/SINUS COMP/MOHAMUD August 21 8:45am high heart rate September 17, 2024 4:0 7pm Chief Complaint Admit Date PALPATION July 08, 2024 4:36pm ST/COUGH/SINUS COMP/MOHAMUD August 21 8:45am high heart rate September 17, 2024 4:0 7pm S/P [facility] 09/17October 11, 2024 9:07 am Chief Complaint Admit Date ST/COUGH/SINUS COMP/MOHAMUD August 21 8:45am high heart rate September 17, 2024 4:0 7pm S/P [facility] 09/17October 11, 2024 9:07 am Chief Complaint Admit Date chest pain March 28, 2025 4:48pm CHEST PAIN March 29, 2025 7:51pm CHEST PAIN March 30, 2025 7:42am CHEST PAIN March 30, 2025 8:01pm CHEST PAIN March 31, 2025 8:25am CHEST PAIN March 31, 2025 9:51am CHEST PAIN April 01, 2025 6:46am CHEST PAIN April 01, 2025 3:18pm Reason for Visit Admit Date [facility] 2024 8:01pm Chest pressure March 30, 2025 8:01pm Benign essential hypertension March 30, 2025 8:01pm ESRD (end stage renal disease) on dialys is March 30, 2025 8:01pm History of implantable cardiac defibrill ator (ICD) March 30, 2025 8:01pm Hyperlipidemia March 30, 2025 8:01pm History of coronary artery stent placeme nt March 30, 2025 8:01pm Torsades de pointes March 30, 2025 8:01pm Chief Complaint Admit Date chest pain March 28, 2025 4:48pm CHEST PAIN March 29, 2025 7:51pm CHEST PAIN March 30, 2025 7:42am CHEST PAIN March 30, 2025 8:01pm CHEST PAIN March 31, 2025 8:25am CHEST PAIN March 31, 2025 9:51am CHEST PAIN April 01, 2025 6:46am CHEST PAIN April 01, 2025 3:18pm Torsades de pointes April 01, 2025 3:28pm S/P [facility] 04/01April 16, 2025 9: 56am Reason for Visit Admit Date Accelerated essential hypertension [facility]2024 8:01pm Chest pressure March 30, 2025 8:01pm Benign essential hypertension March 30, 2025 8:01pm ESRD (end stage renal disease) on dialys is March 30, 2025 8:01pm History of implantable cardiac defibrill ator (ICD) March 30, 2025 8:01pm Hyperlipidemia March 30, 2025 8:01pm History of coronary artery stent placeme nt March 30, 2025 8:01pm Torsades de pointes March 30, 2025 8:01pm History of DVT (deep vein thrombosis) Oc tob2024 9:56am Hypotension April 16, 2025 9: 56am Paroxysmal atrial fibrillation April 162024 9:56am ESRD (end stage renal disease) on dialys is April 16, 2025 9:56am History of implantable cardiac defibrill ator (ICD) April 16, 2025 9:56am Hyperlipidemia April 16, 2025 9: 56am History of coronary artery stent placeme nt April 16, 2025 9:56am Reason for Referral Specialty Diagnoses / Procedures Referred By Contac t Referred To Contact MR IMAGING Diagnoses Gross hematuria Procedures MRI PELVIS URO WO/W IVCON MRI PELVIS W/O & W/CONTRAST MATERIAL Deb Howard, VENEER TRIMMER.COAL WHEELER [address] [place] [address] Mr Imaging Referral ID Status Reason Start Date Expiration Date Visits Requested Visits Authorized [id number] Pending Review Auto-Generat ed Referral 12/16/2021 01/15/2023 1 1 Specialty Diagnoses / Procedures Referred By Contac t Referred To Contact MR IMAGING Diagnoses Gross hematuria Procedures MRI ABDOMEN URO WO/W IVCON MRI ABDOMEN W/O & W/CONTRAST MATERIAL Deb Howard, VENEER TRIMMER.COAL WHEELER [address] [place] [address] Mr Imaging Referral ID Status Reason Start Date Expiration Date Visits Requested Visits Authorized [id number] Pending Review Auto-Generat ed Referral 12/16/2021 01/15/2023 1 1 Referral ID Status Reason Start Date Expiration Date V isits Requested Visits Authorized [id number] Closed Auto-Generate d Referral 12/16/2021 01/15/2023 1 1 Referral ID Status Reason Start Date Expiration Date V isits Requested Visits Authorized [id number] Closed Auto-Generate d Referral 12/16/2021 01/15/2023 1 1 Specialty Diagnoses / Procedures Referred By Contac t Referred To Contact CT IMAGING Diagnoses Polycystic kidney Procedures CT ABD/PEL WO IVCON CT ABD & PELVIS W/O CONTRAST Christiano Huntley MD [address] [place] [address] Ct Imaging Referral ID Status Reason Start Date Expiration Date Visits Requested Visits Authorized [id number] Pending Review Auto-Generat ed Referral 02/10/2023 03/11/2024 1 1 Specialty Diagnoses / Procedures Referred By Contac t Referred To Contact CT IMAGING Diagnoses Polycystic kidney Procedures CT ABD/PEL WO IVCON CT ABD & PELVIS W/O CONTRAST Christiano Huntley MD [address] [facility] [place] [address] [place] [address] Referral ID Status Reason Start Date Expiration Date V isits Requested Visits Authorized [id number] Closed Auto-Generate d Referral 02/10/2023 03/11/2024 1 [...] section and content) DATE CREATED AUTHOR 01/14/2018 [facility] DATE CREATED AUTHOR AUTHOR'S ORGANIZ ATION 04/10/2020 [facility] DATE CREATED AUTHOR AUTHOR'S ORGANIZ ATION 05/07/2022 [facility] DATE CREATED AUTHOR AUTHOR'S ORGANIZ ATION 04/30/2023 [facility] DATE CREATED AUTHOR AUTHOR'S ORGANIZ ATION 02/15/2024 [facility] DATE CREATED AUTHOR AUTHOR'S ORGANIZ ATION 04/20/2025 [facility] DATE CREATED AUTHOR AUTHOR'S ORGANIZ ATION 04/21/2025 [facility] Comments (unrecognize d section and content) In the event this informatio n is protected by the Federal Confidentiality of Alcohol and Drug Abuse Patient Records regulations: The Federal rules restrict any use of the information to criminally investigate or prosecute any alcohol or drug abuse patient.[facility] the event this information is protected by the Federal Confidentiality of Alcohol and Drug Abuse Patient Records regulations: The Federal rules restrict any use of the information to criminally investigate or prosecute any alcohol or drug abuse patient.[facility] CampusIn the event this information is protected by the Federal Confidentiality of Alcohol and Drug Abuse Patient Records regulations: The Federal rules restrict any use of the information to criminally investigate or prosecute any alcohol or drug abuse patient.[facility] CampusIn the event this information is protected by the Federal Confidentiality of Alcohol and Drug Abuse Patient Records regulations: The Federal rules restrict any use of the information to criminally investigate or prosecute any alcohol or drug abuse patient.[facility] CampusIn the event this information is protected by the Federal Confidentiality of Alcohol and Drug Abuse Patient Records regulations: The Federal rules restrict any use of the information to criminally investigate or prosecute any alcohol or drug abuse patient.[facility] CampusIn the event this information is protected by the Federal Confidentiality of Alcohol and Drug Abuse Patient Records regulations: The Federal rules restrict any use of the information to criminally investigate or prosecute any alcohol or drug abuse patient.[facility] CampusIn the event this information is protected by the Federal Confidentiality of Alcohol and Drug Abuse Patient Records regulations: The Federal rules restrict any use of the information to criminally investigate or prosecute any alcohol or drug abuse patient.[facility] CampusIn the event this information is protected by the Federal Confidentiality of Alcohol and Drug Abuse Patient Records regulations: The Federal rules restrict any use of the information to criminally investigate or prosecute any alcohol or drug abuse patient.[facility] CampusIn the event this information is protected by the Federal Confidentiality of Alcohol and Drug Abuse Patient Records regulations: The Federal rules restrict any use of the information to criminally investigate or prosecute any alcohol or drug abuse patient.[facility] CampusIn the event this information is protected by the Federal Confidentiality of Alcohol and Drug Abuse Patient Records regulations: The Federal rules restrict any use of the information to criminally investigate or prosecute any alcohol or drug abuse patient.[facility] CampusIn the event this information is protected by the Federal Confidentiality of Alcohol and Drug Abuse Patient Records regulations: The Federal rules restrict any use of the information to criminally investigate or prosecute any alcohol or drug abuse patient.[facility] CampusIn the event this information is protected by the Federal Confidentiality of Alcohol and Drug Abuse Patient Records regulations: The Federal rules restrict any use of the information to criminally investigate or prosecute any alcohol or drug abuse patient.[facility] CampusIn the event this information is protected by the Federal Confidentiality of Alcohol and Drug Abuse Patient Records regulations: The Federal rules restrict any use of the information to criminally investigate or prosecute any alcohol or drug abuse patient.[facility] CampusIn the event this information is protected by the Federal Confidentiality of Alcohol and Drug Abuse Patient Records regulations: The Federal rules restrict any use of the information to criminally investigate or prosecute any alcohol or drug abuse patient.[facility] CampusIn the event this information is protected by the Federal Confidentiality of Alcohol and Drug Abuse Patient Records regulations: The Federal rules restrict any use of the information to criminally investigate or prosecute any alcohol or drug abuse patient.[facility] CampusIn the event this information is protected by the Federal Confidentiality of Alcohol and Drug Abuse Patient Records regulations: The Federal rules restrict any use of the information to criminally investigate or prosecute any alcohol or drug abuse patient.[facility] CampusIn the event this information is protected by the Federal Confidentiality of Alcohol and Drug Abuse Patient Records regulations: The Federal rules restrict any use of the information to criminally investigate or prosecute any alcohol or drug abuse patient.[facility] CampusIn the event this information is protected by the Federal Confidentiality of Alcohol and Drug Abuse Patient Records regulations: The Federal rules restrict any use of the information to criminally investigate or prosecute any alcohol or drug abuse patient.[facility] CampusIn the event this information is protected by the Federal Confidentiality of Alcohol and Drug Abuse Patient Records regulations: The Federal rules restrict any use of the information to criminally investigate or prosecute any alcohol or drug abuse patient.[facility] CampusIn the event this information is protected by the Federal Confidentiality of Alcohol and Drug Abuse Patient Records regulations: The Federal rules restrict any use of the information to criminally investigate or prosecute any alcohol or drug abuse patient.[facility] CampusIn the event this information is protected by the Federal Confidentiality of Alcohol and Drug Abuse Patient Records regulations: The Federal rules restrict any use of the information to criminally investigate or prosecute any alcohol or drug abuse patient.[facility] CampusIn the event this information is protected by the Federal Confidentiality of Alcohol and Drug Abuse Patient Records regulations: The Federal rules restrict any use of the information to criminally investigate or prosecute any alcohol or drug abuse patient.[facility] CampusIn the event this information is protected by the Federal Confidentiality of Alcohol and Drug Abuse Patient Records regulations: The Federal rules restrict any use of the information to criminally investigate or prosecute any alcohol or drug abuse patient.[facility] CampusIn the event this information is protected by the Federal Confidentiality of Alcohol and Drug Abuse Patient Records regulations: The Federal rules restrict any use of the information to criminally investigate or prosecute any alcohol or drug abuse patient.[facility] CampusIn the event this information is protected by the Federal Confidentiality of Alcohol and Drug Abuse Patient Records regulations: The Federal rules restrict any use of the information to criminally investigate or prosecute any alcohol or drug abuse patient.[facility] CampusIn the event this information is protected by the Federal Confidentiality of Alcohol and Drug Abuse Patient Records regulations: The Federal rules restrict any use of the information to criminally investigate or prosecute any alcohol or drug abuse patient.[facility] CampusIn the event this information is protected by the Federal Confidentiality of Alcohol and Drug Abuse Patient Records regulations: The Federal rules restrict any use of the information to criminally investigate or prosecute any alcohol or drug abuse patient.[facility] CampusIn the event this information is protected by the Federal Confidentiality of Alcohol and Drug Abuse Patient Records regulations: The Federal rules restrict any use of the information to criminally investigate or prosecute any alcohol or drug abuse patient.[facility] CampusIn the event this information is protected by the Federal Confidentiality of Alcohol and Drug Abuse Patient Records regulations: The Federal rules restrict any use of the information to criminally investigate or prosecute any alcohol or drug abuse patient.[facility] CampusIn the event this information is protected by the Federal Confidentiality of Alcohol and Drug Abuse Patient Records regulations: The Federal rules restrict any use of the information to criminally investigate or prosecute any alcohol or drug abuse patient.[facility] Continuous Active and Recently Administ ered Medications [...] (Given - Provid er: Michelle Cole RN) Care Teams (unrecognized sec tion and content) Operations/Dispatch Relationship Specialty Start Date End Date Trevor Vieyra PCP - General 02/03/15 [facility] 10/10/15 Operations/Dispatch Relationship Specialty Start Date End Date Trevor Vieyra MD [address] [place] [address] PCP - General Family Practice 01/16/20 Operations/Dispatch Relationship Specialty Start Date End Date Trevor Vieyra MD [address] [place] [address] PCP - General Family Practice 01/16/20 Operations/Dispatch Relationship Specialty Start Date End Date Trevor Vieyra MD [address] [place] [address] PCP - General Family Practice 01/16/20 Operations/Dispatch Relationship Specialty Start Date End Date Trevor Vieyra MD [address] [place] [address] PCP - General Family Practice 01/16/20 Operations/Dispatch Relationship Specialty Start Date End Date Trevor Vieyra MD [address] [place] [address] PCP - General Family Practice 01/16/20 Operations/Dispatch Relationship Specialty Start Date End Date Trevor Vieyra MD [address] [place] [address] PCP - General Family Practice 01/16/20 Operations/Dispatch Relationship Specialty Start Date End Date Trevor Vieyra MD [address] [facility] [address] PCP - General Family Practice 01/16/20 Operations/Dispatch Relationship Specialty Start Date End Date Trevor Vieyra MD [address] [place] [address] PCP - General Family Practice 01/16/20 Operations/Dispatch Relationship Specialty Start Date End Date Trevor Vieyra MD [address] [place] [address] PCP - General Family Practice 01/16/20 Operations/Dispatch Relationship Specialty Start Date End Date Trevor Viyera MD [address] [place] [address] PCP - General Family Practice 01/16/20 Operations/Dispatch Relationship Specialty Start Date End Date Trevor Vieyra MD [address] [place] [address] PCP - General Family Practice 01/16/20 Operations/Dispatch Relationship Specialty Start Date End Date Trevor Vieyra MD [address] [place] [address] PCP - General Family Practice 01/16/20 Operations/Dispatch Relationship Specialty Start Date End Date Trevor Vieyra MD [address] [place] [address] PCP - General Family Practice 01/16/20 Operations/Dispatch Relationship Specialty Start Date End Date Trevor Vieyra MD [address] [place] [address] PCP - General Family Practice 01/16/20 Operations/Dispatch Relationship Specialty Start Date End Date Trevor Vieyra MD [address] [place] [address] PCP - General Family Medicine 01/16/20 Team Status: Active Member Role Status Dates Dr. Trevor Vieyra MD Family Provider Active Dr. Trevor Vieyra MD Primary Care Provider Active Team Status: Inactive Member Role Status Dates Dr. Trevor Vieyra MD Primary Care Provider, Attending Renetta olivares Active Team Status: Active Member Role Status Dates Dr. Trevor Vieyra MD Primary Care Provider, Attending Renetta olivares Active Team Status: Inactive Member Role Status Dates Dr. Trevor Vieyra MD Primary Care Provider, Referring P marshall Active Maday Sheppard PA, PA Attending Provider Active Team Status: Active Member Role Status Dates Dr. Trevor Vieyra MD Primary Care Provide r, Attending Provider, Referring Provider Active Team Status: Inactive Member Role Status Dates Dr. Trevor Vieyra MD Primary Care Provide r, Attending Provider, Referring Provider Active Operations/Dispatch Relationship Specialty Start Date End Date Trevor Vieyra MD [address] [facility] [place] [address] PCP - General Family Medicine 01/16/20 Operations/Dispatch Relationship Specialty Start Date End Date Trevor Vieyra MD [address] [facility] [address] PCP - General Family Medicine 01/16/20 Operations/Dispatch Relationship Specialty Start Date End Date Trevor Vieyra [address] [facility] [address] [place] [address] PCP - General 02/03/15 Operations/Dispatch Relationship Specialty Start Date End Date Trevor Vieyra MD [address] [facility] [address] PCP - General Family Medicine 01/16/20 Operations/Dispatch Relationship Specialty Start Date End Date Trevor Vieyra MD [address] [facility] [address] PCP - General Family Medicine 01/16/20 Operations/Dispatch Relationship Specialty Start Date End Date Trevor Vieyra MD [address] [facility] [address] PCP - General Family Medicine 01/16/20 Team Status: Inactive Member Role Status Dates Dr. Trevor Vieyra MD Primary Care Provider Active Dr. Salas Basilio MD Emergency Provider Active Operations/Dispatch Relationship Specialty Start Date End Date Trevor Vieyra MD [address] [facility], [place] [id number] PCP - General Family Medicine 01/16/20 Operations/Dispatch Relationship Specialty Start Date End Date Jarrell Trevor Kira [address] [facility] [address] [place] [address] PCP - General 02/03/15 Operations/Dispatch Relationship Specialty Start Date End Date Jarrell Trevor Malone [address] [facility] [address] [place] [address] PCP - General 02/03/15 Team Status: Active Member Role Status Dates Dr. Trevor Vieyra MD Primary Care Provide r, Referring Provider, Other Provider Active Dr. Camille Heller MD Attending Provider Active Team Status: Inactive Member Role Status Dates Dr. Trevor Vieyra MD Primary Care Provider Active Dr. Salas Basilio MD Attending Provider, Emergency Provider Active Operations/Dispatch Relationship Specialty Start Date End Date Trevor Vieyra MD [address] [place] [place] [address] PCP - General Family Medicine 01/16/20 Operations/Dispatch Relationship Specialty Start Date End Date VieyraTrevor [address] [facility] [address] [place] [phone] PCP - General 02/03/15 Team Status: Active [...] 2024 End: October 11, 2024 Christiano Tee NP, [employer] Attending Provider Active S tart: October 11, [...] 18, 2024 End: October 18, 2024 Christiano H Roof [employer], [employer] Attending Provider Active S tart: October 18, 2024 End: October 18, 2024 Christiano Tee [employer], [employer] Referring Provider Active S tart: October 18, [...] 2024 End: October 11, 2024 Christiano Tee [employer], [employer] Attending Provider Active S tart: October 11, [...] 2024 End: October 18, 2024 Christiano Tee [employer], [employer] Attending Provider Active S tart: October 18, 2024 End: October 18, 2024 Christiano Tee [employer], [employer] Referring Provider Active S tart: October 18, [...] 2024 End: October 11, 2024 Christiano Tee [employer], [employer] Attending Provider Active S tart: October 11, [...] 2024 End: October 18, 2024 Christiano Tee [employer], [employer] Attending Provider Active S tart: October 18, 2024 End: October 18, 2024 Christiano Tee [employer], [employer] Referring Provider Active S tart: October 18, [...] February 19, 2025 End: March 10, 2025 Team Status: Active Member Role/Relationship Status Dates Dr. Trevor Vieyra MD Primary care physician Active Team Status: Inactive Member Role/Relationship Status Dates Dr. Trevor Vieyra MD Primary care physician Active Start: December 17, 2024 End: January 07, 2025 Dr. Trevor Vieyra MD Attending physician Active S tart: December 17, 2024 End: January 07, 2025 Dr. Trevor Vieyra MD Referring Provider Active St art: December 17, 2024 End: January 07, 2025 Team Status: Inactive Member Role/Relationship Status Dates Dr. Trevor Vieyra MD Primary care physician Active Start: January 15, 2025 End: February 07, 2025 Dr. Trevor Vieyra MD Attending physician Active S tart: January 15, 2025 End: February 07, 2025 Dr. Trevor Vieyra MD Referring Provider Active St art: January 15, 2025 End: February 07, 2025 Team Status: Inactive Member Role/Relationship Status Dates Dr. Trevor Vieyra MD Primary care physician Active Start: February 19, 2025 End: March 10, 2025 Dr. Trevor Vieyra MD Attending physician Active S tart: February 19, 2025 End: March 10, 2025 Dr. Trevor Vieyra MD Referring Provider Active St art: February 19, 2025 End: March 10, 2025 Team Status: Inactive Member Role/Relationship Status Dates Dr. Trevor Vieyra MD Primary care physician Active Start: March 28, 2025 End: March 28, 2025 Dr. Yaniv Aguero MD Attending physician Active St art: March 28, 2025 End: March 28, 2025 Dr. Yaniv Aguero MD Emergency Department Physician Active Start: March 28, 2025 End: March 28, 2025 Team Status: Active Member Role/Relationship Status Dates Dr. Trevor Vieyra MD Primary care physician Active Start: March 29, 2025 Dr. Padmini Wen DO Emergency Departm ent Physician Active Start: March 29, 2025 Dr. Saadia Valencia MD Admitting physician Active Start: March 29, 2025 Dr. Saadia Valencia MD Attending physician Active Start: March 29, 2025 Dr. Saadia Valencia MD Nurse Practitioner Active Start: March 29, 2025 Team Status: Active Member Role/Relationship Status Dates Dr. Trevor Vieyra MD Primary care physician Active Start: March 30, 2025 Dr. Padmini Wen DO Emergency Departm ent Physician Active Start: March 30, 2025 Dr. Saadia Valencia MD Admitting physician Active Start: March 30, 2025 Dr. Saadia Valencia MD Nurse Practitioner Active Start: March 30, 2025 Dr. Sudarshan Garcia MD Attending physician Active Start: March 30, 2025 Dr. Sudarshan Garcia MD Nurse Practitioner Active Start: March 30, 2025 Dr. Watson Dalal MD Nurse Practitioner Active Start: March 30, 2025 Team Status: Active Member Role/Relationship Status Dates Dr. Trevor Vieyra MD Primary care physician Active Start: March 30, 2025 Dr. Ernesto Garvin MD Attending physician Active Start: March 30, 2025 Team Status: Inactive Member Role/Relationship Status Dates Dr. Trevor Vieyra MD Primary care physician Active Start: March 30, 2025 End: April 01, 2025 Dr. Padmini Wen DO Emergency Departm ent Physician Active Start: March 30, 2025 End: April 01, 2025 Dr. Saadia Valencia MD Admitting physician Active Start: March 30, 2025 End: April 01, 2025 Dr. Saadia Valencia MD Nurse Practitioner Active Start: March 30, 2025 End: April 01, 2025 Dr. Ernesto Garvin MD Nurse Practitioner Active S tart: March 30, 2025 End: April 01, 2025 Dr. Watson Dalal MD Nurse Practitioner Active Start: March 30, 2025 End: April 01, 2025 Dr. Armando Booker MD Attending physician Active Start: March End: April 01, 2025 Dr. Sudarshan Garcia MD Nurse Practitioner Active Start: March 30, 2025 End: April 01, 2025 Team Status: Active Member Role/Relationship Status Dates Dr. Trevor Vieyra MD Primary care physician Active Start: March 31, 2025 Dr. Padmini Wen DO Emergency Departm ent Physician Active Start: March 31, 2025 Dr. Saadia Valencia MD Admitting physician Active Start: March 31, 2025 Dr. Saadia Valencia MD Nurse Practitioner Active Start: March 31, 2025 Dr. Ernesto Garvin MD Attending physician Active Start: March 31, 2025 Dr. Ernesto Garvin MD Nurse Practitioner Active S tart: March 31, 2025 Dr. Watson Dalal MD Nurse Practitioner Active Start: March 31, 2025 Dr. Armando Booker MD Nurse Practitioner Active Start: March Dr. Sudarshan Garcia MD Nurse Practitioner Active Start: March 31, 2025 Team Status: Active Member Role/Relationship Status Dates Dr. Trevor Vieyra MD Primary care physician Active Start: March 31, 2025 Dr. Padmini Wen , Emergency Departm ent Physician Active Start: March 31, 2025 Dr. Saadia Valencia MD Admitting physician Active Start: March 31, 2025 Dr. Saadia Valencia MD Nurse Practitioner Active Start: March 31, 2025 Dr. Ernesto Garvin MD Nurse Practitioner Active S tart: March 31, 2025 Dr. Watson Dalal MD Nurse Practitioner Active Start: March 31, 2025 Dr. Armando Booker MD Attending physician Active Start: March Dr. Armando Booker MD Nurse Practitioner Active Start: March Dr. Sudarshan Garcia MD Nurse Practitioner Active Start: March 31, 2025 Team Status: Active Member Role/Relationship Status Dates Dr. Trevor Vieyra MD Primary care physician Active Start: April 01, 2025 Dr. Padmini Wen DO Emergency Departm ent Physician Active Start: April 01, 2025 Dr. Saadia Valencia MD Admitting physician Active Start: April 01, 2025 Dr. Saadia Valencia MD Nurse Practitioner Active Start: April 01, 2025 Dr. Ernesto Garvin MD Attending physician Active Start: April 01, 2025 Dr. Ernesto Garvin MD Nurse Practitioner Active S tart: April 01, 2025 Dr. Watson Dalal MD Nurse Practitioner Active Start: April 01, 2025 Dr. Armando Booker MD Nurse Practitioner Active Start: March Dr. Sudarshan Garcia MD Nurse Practitioner Active Start: April 01, 2025 Team Status: Active Member Role/Relationship Status Dates Dr. Trevor Vieyra MD Primary care physician Active Start: April 01, 2025 Dr. Padmini Wen DO Emergency Departm ent Physician Active Start: April 01, 2025 Dr. Saadia Valencia MD Admitting physician Active Start: April 01, 2025 Dr. Saadia Valencia MD Nurse Practitioner Active Start: April 01, 2025 Dr. Ernesto Garvin MD Nurse Practitioner Active S tart: April 01, 2025 Dr. Watson Dalal MD Nurse Practitioner Active Start: April 01, 2025 Dr. Armando Booker MD Attending physician Active Start: March Dr. Armando Booker MD Nurse Practitioner Active Start: March Dr. Sudarshan Garcia MD Nurse Practitioner Active Start: April 01, 2025 Team Status: Active Member Role/Relationship Status Dates Dr. Trevor Vieyra MD Primary care physician Active Start: April 01, 2025 Dr. Ernesto Garvin MD Attending physician Active Start: April 01, 2025 Dr. Armando Booker MD Referring Provider Active Start: March Team Status: Inactive Member Role/Relationship Status Dates Dr. Trevor Vieyra MD Primary care physician Active Start: April 16, 2025 End: April 16, 2025 Dr. Trevor Vieyra MD Referring Provider Active St art: April 16, 2025 End: April 16, 2025 Christiano Vikki Nay [employer], [employer] Attending physician Active Start: April 16, 2025 End: April 16, 2025 Operations/Dispatch Relationship Specialty Start Date End Date Trevor Vieyra [address] [facility] [address] [place] [phone] PCP - General 02/03/15 Goals (unrecognized section and content) Goals may [...] Urogram Specialty Diagnoses / Procedures Referred By Contac t Referred To Contact MR IMAGING Diagnoses Gross hematuria Procedures MRI PELVIS URO WO/W IVCON MRI PELVIS W/O & W/CONTRAST MATERIAL Deb Howard, [employer] [address] [place] [address] Mr Imaging Referral ID Status Reason Start Date Expiration Date V isits Requested Visits Authorized [id number] Closed Auto-Generate d Referral 12/16/2021 01/15/2023 1 [...] CT Specialty Diagnoses / Procedures Referred By Contac t Referred To Contact CT IMAGING Diagnoses Polycystic kidney Procedures CT ABD/PEL WO IVCON CT ABD & PELVIS W/O CONTRAST Christiano Huntley MD [address] [place] [address] [place] [address] Referral ID Status Reason Start Date Expiration Date V isits Requested Visits Authorized [id number] Closed Auto-Generate d Referral 02/10/2023 03/11/2024 1 1 Reason Onset Date Comments Missed Appointment 05/11/2023 Reason Comments 1 Year Follow-up Reason Onset Date Comments Population Health Navigation Outreach 02/13/2024 [facility] Attributed Member - Added to Attribution List Reason Comments Annual Exam Reason Onset Date Comments Appointment Request 03/18/2025 FOR RECORDS PERTAINING TO PATIENTS WHO ARE [...] BE BASED ON THE PRIMARY CLINICAL RECORDS. [employer] [facility]. provides no warranty or guarantee of the accuracy or completeness of information in this document.
[2025-04-25 03:00] LABS: Anion Gap 13 (5-15); BUN 22 mg/dL (4-19); BUN/Creat Ratio 3.6 RATIO (10-20); Calcium,Total 8.7 mg/dL (7.6-11.0); Carbon Dioxide 29.3 mmol/L (21.0-32.0); Chloride 94 mmol/L (98-108); Glucose 113 mg/dL (70-99); Potassium 4.3 mmol/L (3.3-5.1); Troponin T High Sensitivity 61 ng/L (<=14)
[2025-04-25 03:02] LABS: Prothrombin Time (Protime)PT. 29.9 SECONDS (11.7-14.9)
[2025-04-25 03:03] LABS: Partial Thromboplast Time 47.4 Seconds (24.1-36.2)
[2025-04-25 04:21] VITALS: BP 177/60; PULSE 60; RESP 18
[2025-04-25 05:12] LABS: Troponin T High Sens 2 HR 62 ng/L (<=14)
[2025-04-25 06:04] VITALS: BP 170/63; PULSE 74; RESP 14; TEMP 36.6; O2SAT 92; O2SAT 94
== END 2025-04-25 06:07 | disposition home or self-care (01) ==
PROVIDERS: Emergency Provider Emergency Medicine; PCP Family Medicine; Visit Provider Emergency Medicine
DX: R07.9 Chest pain, unspecified (principal); N18.6 End stage renal disease; I12.0 Hypertensive chronic kidney disease with stage 5 chronic kidney disease or end stage renal disease; I82.409 Acute embolism and thrombosis of unspecified deep veins of unspecified lower extremity; Z99.2 Dependence on renal dialysis; E78.5 Hyperlipidemia, unspecified; I25.10 Atherosclerotic heart disease of native coronary artery without angina pectoris; Z95.0 Presence of cardiac pacemaker; Z79.01 Long term (current) use of anticoagulants; Z79.899 Other long term (current) drug therapy; Z95.5 Presence of coronary angioplasty implant and graft; R05.9 Cough, unspecified
CPT/HCPCS: 36415; 71046; 80048; 84484; 85025; 85610; 85730; 93005; 99285; A4216

== ENCOUNTER 2025-04-29 11:36 | Inpatient (IN) | payer MEDICARE, MEDICAID, SELFPAY ==
[2025-04-29] VITALS (20 sets, daily range): BP systolic 166–202; BP diastolic 59–82; PULSE 61–98; RESP 15–24; TEMP 36.2–37.1; O2SAT 86–98; BMI 33.1; BMI 31.8; BMI 32.0; BMI 31.0
--- NOTE | 2025-04-29 11:42 | EKG12_ITS ---
Test Reason : CP Blood Pressure : */* mmHG Vent. Rate : 68 BPM Atrial Rate : 68 BPM P-R Int : 170 ms QRS Dur : 78 ms QT Int : 484 ms P-R-T Axes : -6 39 54 degrees QTcB Int : 514 ms Normal sinus rhythm Prolonged QT Abnormal ECG Confirmed by Jeremy Vega ([id number]), editor dictionary GALO OLGUIN ([id number]) on 04/30/2025 11:27:59 AM Referred By: UG/BB Confirmed By: Jeremy Vega
[2025-04-29 12:18] LABS: Hematocrit 31.4 % (37-47); Hemoglobin 10.1 g/dL (12.0-15.0); Immature Granulocytes Count 0.010 X10^3/uL (0.0-0.0); Mean Corp Hgb Conc 32.2 g/dL (32-36); Mean Corpuscular Volume 89.0 fL (81-99); Mean Platelet Vol. 9.3 fl (6.2-12.0); NRBC Flagged by Analyzer 0 % (0-5); Platelet Count 271 K/mm3 (150-450); RBC Distribution Width CV 16.4 % (11.6-14.6); RBC Distribution Width SD 53.6 fl (35.1-43.9); Red Blood Count 3.53 M/mm3 (4.2-5.4); White Blood Count 5.8 K/mm3 (4.4-11.0)
[2025-04-29 12:56] LABS: Anion Gap 18 (5-15); BUN 49 mg/dL (4-19); BUN/Creat Ratio 4.5 RATIO (10-20); Calcium,Total 8.0 mg/dL (7.6-11.0); Carbon Dioxide 22.5 mmol/L (21.0-32.0); Chloride 94 mmol/L (98-108); Estimated Creatinine Clearance 5.45 ml/min (50-250); Glucose 97 mg/dL (70-99); Potassium 4.9 mmol/L (3.3-5.1)
[2025-04-29] MEDS: Lidocaine 2% Viscous15 ML UDC 15 ML PO (12:56)
--- NOTE | 2025-04-29 14:05 | EX.ED.DYSGE1 ---
HPI History of Present Illness Chief Complaint: Shortness of Breath Detail of Chief Complaint: Patient sent from dialysis because of shortness of breath and chest pain af Informant: patient Onset/Context/Timing Onset: Days Context: Sudden Onset Timing: Intermittent Quality: Pain Location: Chest Current Severity: Gone Maximum Severity: Moderate Worsened by: Coughing Relieved by: Not coughing Associated Symptoms Associated Symptoms: No fever or chills. Seen within the past week. Narrative Narrative: Patient is a 59-year-old female who presents from dialysis because of chest pain and shortness of breath after coughing. She has been coughing for some time. She was seen on April 25 for chest pain. She had extensive workup at that time that was negative. Patient denies any fever or chills. She has had some mild congestion. She denies earache or decreased hearing. She denies sore throat. She denies hemoptysis, nausea or vomiting. She denies radiation of the pain to her jaws, shoulders or upper extremities. She denied diaphoresis. She was not dialyzed. This occurred prior to the start of dialysis. Patient denies abdominal pain. She denies nausea or vomiting. She denies black or maroon-colored stool. She does have history of AICD. She has history of nonsustained V. tach and history of V-fib. She also has history of thyroid surgery. She is on levothyroxine 25 mcg. Prior similar symptoms: Yes Recent Illness/Hospitalization: [facility] Medical History Polycystic kidney disease Sudden cardiac Hypertriglyceridemia Hyperlipidemia History of torsades de pointes Atherosclerosis of coronary artery of [place] heart without angina pectoris Syncope and collapse Ventricular fibrillation Ischemic cardiomyopathy ESRD (end stage renal disease) on dialysis Nonsustained ventricular tachycardia History of recurrent miscarriages, not currently History of DVT (deep vein thrombosis) Congenital polycystic kidney disease History of allergic rhinitis Obesity Benign essential hypertension Home Medications ?Medication ?Instructions ?Recorded ?Last Taken ?Type sertraline 50 mg tablet 75 mg PO QHS depression 01/19/17 04/28/25 History cholecalciferol (vitamin D3) 25 1,000 unit PO QDAY supplement 10/24/17 04/28/25 History mcg (1,000 unit) tablet sevelamer carbonate 800 mg tablet 4,000 mg PO TIDCM binder 30 days 06/11/21 04/28/25 History #90 tabs nitroglycerin 0.4 mg sublingual 0.4 mg sublingual Q5M PRN Chest 10/14/22 03/15/23 Rx tablet Pain #25 tabs atorvastatin 10 mg tablet 10 mg PO DAILY cholesterol #30 tabs 10/11/24 04/28/25 Rx levothyroxine 25 mcg tablet 25 mcg PO QDAY thyroid 10/11/24 04/29/25 History warfarin 2 mg tablet 9 mg PO SUTUTHSA blood thinner 10/11/24 04/28/25 History warfarin 3 mg tablet 8 mg PO MOWEFR blood thinner 10/11/24 04/19/25 History zolpidem 10 mg tablet 10 mg PO QHS PRN insomnia 10/11/24 Unknown History carvedilol 6.25 mg tablet 6.25 mg PO BID blood pressure 03/29/25 04/29/25 History amlodipine 10 mg tablet 10 mg PO DAILY 30 days #30 tabs 04/01/25 04/28/25 Rx azelastine 137 mcg (0.1 %) nasal 1 spray intranasal BID 04/16/25 04/28/25 History spray benzonatate 100 mg capsule 100 mg PO TID PRN cough #30 caps 04/25/25 Unknown Rx omeprazole 40 mg capsule,delayed 40 mg PO DAILY #30 caps 04/29/25 Unknown Rx release telmisartan 80 mg tablet 80 mg PO DAILY 04/29/25 04/28/25 History warfarin 5 mg tablet 5 mg PO DAILY 04/29/25 04/28/25 History Allergy/AdvReac Type Severity Reaction Status Date / Time amoxicillin Allergy Rash Verified 04/29/25 11:38 doxercalciferol (From Allergy Hives Verified 04/29/25 11:38 Hectorol) etodolac Allergy Rash Verified 04/29/25 11:38 Penicillins (PCN) Allergy Rash Verified 04/29/25 11:38 sulfamethoxazole (From Allergy Rash Verified 04/29/25 11:38 Bactrim) tramadol Allergy Rash Verified 04/29/25 11:38 trimethoprim (From Bactrim) Allergy Rash Verified 04/29/25 11:38 strawberry AdvReac Vomiting Verified 04/29/25 11:38 Family History Father Hypertension Kidney disease Mother Diabetes Surgical History Hx of kidney removal History of implantable cardiac defibrillator (ICD) (11/22/19) History of coronary artery stent placement (04/22/16) fistulogram History of thyroid surgery Social History household members: none Smoking Status: Never smoker alcohol intake: never substance use type: does not use diet: other caffeine: No what type of physical activity do you participate in: none seatbelt use: always do you feel safe at home: Yes ROS ROS ED Constitutional Constitutional ED: Denies chills, fever(s), subjective, sweats or weight loss Eyes Eyes: Denies blurry vision or change in vision ENT ENT ED: Reports sore throat; Denies ear pain or rhinorrhea Cardiovascular Cardiovascular: Reports chest pain; Denies orthopnea, palpitations, paroxysmal nocturnal dyspnea or racing heartbeat Respiratory/Chest Respiratory/Chest: Reports cough and dyspnea; Denies dyspnea on exertion, orthopnea, paroxysmal nocturnal dyspnea or sputum Gastrointestinal Gastrointestinal: Denies abdominal pain, melena, nausea or vomiting Musculoskeletal Musculoskeletal: Denies arthralgias, back pain or myalgias Integumentary Denies rash Neurologic Neurologic: Denies headache(s), paresthesias or weakness Hematologic/Lymphatic Hematologic/Lymphatic: Reports systems reviewed and no addt'l complaints, except as documented EXAM Physical Exam Const Vital Signs: 04/29/25 11:38 04/29/25 11:44 04/29/25 11:44 Temperature 98.4 F 98.5 F Temperature Source Oral Oral Pulse Rate 98 61 Pulse Rate [Lying] Pulse Rate [Sitting (for 1 minute prior to obtaining)] Pulse Rate [Standing (for 1 minute prior to obtaining)] Respiratory Rate 20 H 20 H Respiratory Effort Normal Respiratory Depth Normal Respiratory Pattern Normal Blood Pressure 191/63 H 191/80 H Blood Pressure [Lying] Blood Pressure [Sitting (for 1 minute prior to obtaining)] Blood Pressure [Standing (for 1 minute prior to obtaining)] Blood Pressure Mean 105 117 Blood Pressure Mean [Lying] Blood Pressure Mean [Sitting (for 1 minute prior to obtaining)] Blood Pressure Mean [Standing (for 1 minute prior to obtaining)] Pulse Ox 98 98 Oxygen Delivery Method Room Air Room Air Room Air Oxygen Flow Rate (L/min) 04/29/25 12:44 04/29/25 12:44 04/29/25 13:00 Temperature 98.7 F Temperature Source Oral Pulse Rate 70 69 70 Pulse Rate [Lying] Pulse Rate [Sitting (for 1 minute prior to obtaining)] Pulse Rate [Standing (for 1 minute prior to obtaining)] Respiratory Rate 18 20 H 19 H Respiratory Effort Respiratory Depth Respiratory Pattern Blood Pressure 193/67 H 193/67 H 197/74 H Blood Pressure [Lying] Blood Pressure [Sitting (for 1 minute prior to obtaining)] Blood Pressure [Standing (for 1 minute prior to obtaining)] Blood Pressure Mean 109 109 115 Blood Pressure Mean [Lying] Blood Pressure Mean [Sitting (for 1 minute prior to obtaining)] Blood Pressure Mean [Standing (for 1 minute prior to obtaining)] Pulse Ox 94 94 94 Oxygen Delivery Method Nasal Cannula Nasal Cannula Oxygen Flow Rate (L/min) 2 2 04/29/25 13:17 Temperature Temperature Source Pulse Rate Pulse Rate [Lying] 71 Pulse Rate [Sitting (for 1 minute prior to obtaining)] 73 Pulse Rate [Standing (for 1 minute prior to obtaining)] 68 Respiratory Rate Respiratory Effort Respiratory Depth Respiratory Pattern Blood Pressure Blood Pressure [Lying] 202/76 H Blood Pressure [Sitting (for 1 minute prior to obtaining)] 196/72 H Blood Pressure [Standing (for 1 minute prior to obtaining)] 184/65 H Blood Pressure Mean Blood Pressure Mean [Lying] 118 Blood Pressure Mean [Sitting (for 1 minute prior to obtaining)] 113 Blood Pressure Mean [Standing (for 1 minute prior to obtaining)] 104 Pulse Ox Oxygen Delivery Method Oxygen Flow Rate (L/min) Positive well nourished and well developed Constitutional Narrative: Patient appears in no distress. BMI is 33.1. Vital signs noted. Blood pressure is elevated. Orthostatics were negative. General Appearance ED: well developed and pallor HEENT Reports moist mucous membranes Eyes PERRL and EOMs intact bilaterally General Eye ED: Yes pale conjunctiva; Negative for scleral icterus Neck no lymphadenopathy, supple and no JVD Chest Wall inspection of chest normal and palpation of chest normal Resp normal respiratory effort and clear to auscultation bilaterally Cardio regular rate, regular rhythm, S1 normal heart sound, S2 normal heart sound and no murmurs GI normal to inspection, nondistended, normoactive bowel sounds, non-tender, non-distended and no masses Palpation: soft Back/Spine no CVA tenderness Extremity normal to inspection General Extremety ED: Negative for tenderness Neuro oriented x3 and CN's II-XII intact bilaterally Sensorium / Orientation: alert Psych mental status grossly normal Skin no rashes or lesions noted, no wounds and skin turgor normal General Skin Exam: pallor; Negative for elasticity normal or jaundice MDM MDM MDM Narrative Medical decision making narrative: Suspect patient's symptoms due to the coughing. This is not consistent with cardiac disease. Since she had a cardiac workup on the this was not repeated. She is not she does appear pale conjunctive is pale will obtain a CBC to see if there is significant drop in her hemoglobin. Also to assess white count and differential. Since she did not get dialyzed electrolyte panel was obtained to assess her BUN as well as her CO2 anion gap. Lab Data Attestation: I reviewed the patient's lab results. Lab results narrative: CBC is remarkable for mild anemia with an H&H of 10.1 and 31.4. This is slightly above her normal range. BUN and creatinine are 49 and 10.9. Glucose is normal. Labs: Laboratory Results - last 24 hr 04/29/25 12:11 WBC 5.8 RBC 3.53 L Hgb 10.1 L Hct 31.4 L MCV 89.0 MCH 28.6 MCHC 32.2 RDW Std Deviation 53.6 H RDW Coeff of Tana 16.4 H Plt Count 271 MPV 9.3 Immature Gran % (Auto) 0.200 Neut % (Auto) 72.8 H Lymph % (Auto) 13.5 L [place] % (Auto) 6.9 Eos % (Auto) 5.7 H Baso % (Auto) 0.9 Absolute Neuts (auto) 4.2 Absolute Lymphs (auto) 0.78 L Nucleated RBC % 0 Sodium 134 Potassium 4.9 Chloride 94 L Carbon Dioxide 22.5 Anion Gap 18 H BUN 49 H Creatinine 10.90 H* Estim Creat Clear Calc 5.45 L* Est GFR (MDRD) Non-Af 4 L BUN/Creatinine Ratio 4.5 L Glucose 97 Calcium 8.0 Treatment and Re-Evaluation :: Patient was reassessed at 1411. Her pain resolved with a GI cocktail. Since her workup is unremarkable she was discharged home. Patient has to hide what admit her to make sure everything is okay. Patient was informed that she does not meet criteria for admission I will discharge her. Since patient is not on PPI or H2 genesis she was prescribed omeprazole. Discharge Plan Triage Chief Complaint: Shortness of Breath ED Provider: Yaniv Aguero Dx/Rx/DC Orders Clinical Impression: Chest pain due to esophageal problem, Atherosclerosis of coronary artery of [place] heart without angina pectoris, History of coronary artery stent placement, ESRD (end stage renal disease) on dialysis, Benign essential hypertension, History of implantable cardiac defibrillator (ICD) Instructions: ED Chest Pain, Noncardiac, ED Peptic Ulcer Prescriptions: New omeprazole 40 mg capsule,delayed release(DR/EC) 40 mg PO DAILY Qty: 30 0RF No Action cholecalciferol (vitamin D3) 1,000 unit tablet 1,000 unit PO QDAY sevelamer carbonate 800 mg tablet 4,000 mg PO TIDCM 30 Days Qty: 90 levothyroxine 25 mcg tablet 25 mcg PO QDAY warfarin 3 mg tablet 8 mg PO MOWEFR Patient Comments: WITH 5MG warfarin 2 mg tablet 9 mg PO SUTUTHSA Patient Comments: WITH 5MG zolpidem 10 mg tablet 10 mg PO QHS PRN (Reason: insomnia) atorvastatin 10 mg tablet 10 mg PO DAILY Qty: 30 12RF azelastine 137 mcg (0.1 %) spray,non-aerosol 1 spray intranasal BID Rx Instructions: administer into each nostril sertraline 50 MG tablet 75 mg PO QHS carvedilol 6.25 mg tablet 6.25 mg PO BID amlodipine 10 mg Tablet 10 mg PO DAILY 30 Days Qty: 30 0RF benzonatate 100 mg capsule 100 mg PO TID PRN (Reason: cough) Qty: 30 0RF warfarin 5 mg tablet 5 mg PO DAILY Patient Comments: WITH 2MG AND 3MG UD telmisartan 80 mg tablet 80 mg PO DAILY nitroglycerin 0.4 mg tablet, sublingual 0.4 mg SUBLINGUAL Q5M PRN (Reason: Chest Pain) Qty: 25 2RF Primary Care Provider: Tai Vieyra Referrals: Tai Vieyra MD [Primary Care Provider, Family Practice] Print Language: Slovak
--- NOTE | 2025-04-29 14:43 | ED.RN ---
When this RN went to discharge patient, O2 was turned off and patient desated to [address] Aguero notified and bedside to see patient.
--- NOTE | 2025-04-29 14:50 | RAD_ITS ---
PROCEDURE: CHEST PA AND LATERAL 04/29/2025 REASON FOR EXAM: HYPOXIA TECHNIQUE: Procedure Code: RADCXR Modality: DX Procedure: CHEST PA AND LATERAL COMPARISON: Prior study dated April 25, 2025. FINDINGS: Hardware: A left-sided pacemaker is seen. EKG electrodes are seen. Vascular stents are seen within the left axillary and brachial artery or vein. Heart: Heart size is moderately enlarged. Mediastinum: The mediastinal contour is unremarkable. Lungs: Vascular congestion and CHF. Blunting of both costophrenic angles with bibasilar atelectasis. Bones: The bones are unremarkable. RAD/Chest PA and Lateral IMPRESSION: Cardiomegaly and CHF. Bibasilar atelectasis. Reading Location: [place] [id number]
--- NOTE | 2025-04-29 14:57 | EKG12_ITS ---
Test Reason : REPEAT Blood Pressure : */* mmHG Vent. Rate : 70 BPM Atrial Rate : 70 BPM P-R Int : 170 ms QRS Dur : 78 ms QT Int : 464 ms P-R-T Axes : -3 39 54 degrees QTcB Int : 501 ms Normal sinus rhythm Prolonged QT Abnormal ECG Confirmed by Jeremy Vega ([id number]), telegraph editor GALO OLGUIN ([id number]) on 04/30/2025 11:28:07 AM Referred By: Confirmed By: Jeremy Vega
--- NOTE | 2025-04-29 15:44 | PCM.HP.STD ---
HPI - General General Date of Admission: 04/29/25 Date of Service: 04/29/25 Chief Complaint: Chest pain, low oxygen HPI Narrative SPENCER ALLEN, is a 59-year-old female with a history of end-stage renal disease on hemodialysis, hypertension, hypothyroidism, GERD, DVT on Coumadin, depression who presented [facility] ED 04/29/2025 from dialysis due to chest pain worsened with coughing. She has been coughing recently and was seen on April 25 for chest pain, had workup that time which was negative. Reported pain was in the center of her chest and burning in nature, she was given a GI cocktail in the ED and did seem to have some improvement. Initial vitals with temp of 98.4, heart rate 71, blood pressure 191/63, respiratory rate 20 and pulse ox 98% on room air. CBC with white count 5.8, hemoglobin 10.1, BUN 49 and creatinine of 10.9. Initial plan was for discharge home however when patient was taken off O2 she desaturated to 88% subsequently at 86%. Chest x-ray with cardiomegaly and evidence of fluid overload. Given increasing oxygen requirements nephrology contacted for dialysis and hospitalist contacted for admission. Patient evaluated at bedside with daughter present. Reportedly she has been having this pain that is burning in the center of her chest recently and she is frustrated his workup has been negative. Notes diarrhea for 2 days and she has recently had somewhat of a cough, diarrhea is resolved with Imodium, has not been feeling like eating over the past couple days and has been a little bit nauseous. Will get a little bit of left-sided abdominal pain at times. Does not make any urine she does not kidneys. No fevers at home. No new swelling in her extremities. No productive cough. Reports that the chest pain was burning in the center of her chest, is feeling slightly better and more dull in nature. Reports that the pain is worse with coughing. [facility] Medical History (Updated 04/29/25 @ 15:[address] Manuela Mancini MD) Atherosclerosis of coronary artery of [place] heart without angina pectoris Benign essential hypertension CHF (congestive heart failure) Congenital polycystic kidney disease ESRD (end stage renal disease) on dialysis History of allergic rhinitis History of DVT (deep vein thrombosis) History of recurrent miscarriages, not currently History of torsades de pointes Hyperlipidemia Hypertriglyceridemia Ischemic cardiomyopathy Nonsustained ventricular tachycardia Obesity Polycystic kidney disease Sudden cardiac Syncope and collapse Ventricular fibrillation Home Medications ?Medication ?Instructions ?Recorded ?Last Taken ?Type sertraline 50 mg tablet 75 mg PO QHS depression 01/19/17 04/28/25 History cholecalciferol (vitamin D3) 25 1,000 unit PO QDAY supplement 10/24/17 04/28/25 History mcg (1,000 unit) tablet sevelamer carbonate 800 mg tablet 4,000 mg PO TIDCM binder 30 days 06/11/21 04/28/25 History #90 tabs nitroglycerin 0.4 mg sublingual 0.4 mg sublingual Q5M PRN Chest 10/14/22 03/15/23 Rx tablet Pain #25 tabs atorvastatin 10 mg tablet 10 mg PO DAILY cholesterol #30 tabs 10/11/24 04/28/25 Rx levothyroxine 25 mcg tablet 25 mcg PO QDAY thyroid 10/11/24 04/29/25 History warfarin 2 mg tablet 9 mg PO SUTUTHSA blood thinner 10/11/24 04/28/25 History warfarin 3 mg tablet 8 mg PO MOWEFR blood thinner 10/11/24 04/19/25 History zolpidem 10 mg tablet 10 mg PO QHS PRN insomnia 10/11/24 Unknown History carvedilol 6.25 mg tablet 6.25 mg PO BID blood pressure 03/29/25 04/29/25 History amlodipine 10 mg tablet 10 mg PO DAILY 30 days #30 tabs 04/01/25 04/28/25 Rx azelastine 137 mcg (0.1 %) nasal 1 spray intranasal BID 04/16/25 04/28/25 History spray benzonatate 100 mg capsule 100 mg PO TID PRN cough #30 caps 04/25/25 Unknown Rx omeprazole 40 mg capsule,delayed 40 mg PO DAILY #30 caps 04/29/25 Unknown Rx release telmisartan 80 mg tablet 80 mg PO DAILY 04/29/25 04/28/25 History warfarin 5 mg tablet 5 mg PO DAILY 04/29/25 04/28/25 History Allergy/AdvReac Type Severity Reaction Status Date / Time amoxicillin Allergy Rash Verified 04/29/25 11:38 doxercalciferol (From Allergy Hives Verified 04/29/25 11:38 Hectorol) etodolac Allergy Rash Verified 04/29/25 11:38 Penicillins (PCN) Allergy Rash Verified 04/29/25 11:38 sulfamethoxazole (From Allergy Rash Verified 04/29/25 11:38 Bactrim) tramadol Allergy Rash Verified 04/29/25 11:38 trimethoprim (From Bactrim) Allergy Rash Verified 04/29/25 11:38 strawberry AdvReac Vomiting Verified 04/29/25 11:38 Family History Father Hypertension Kidney disease Mother Diabetes Surgical History (Updated 04/29/25 @ 14:[address] Yaniv Aguero MD) fistulogram History of coronary artery stent placement (04/22/16) History of implantable cardiac defibrillator (ICD) (11/22/19) History of thyroid surgery Hx of kidney removal Social History household members: none Smoking Status: Never smoker alcohol intake: never substance use type: does not use diet: other caffeine: No what type of physical activity do you participate in: none seatbelt use: always do you feel safe at home: Yes ROS ROS Narrative General: Denies fever/chills HENT: Denies headache, denies stuffy nose, denies sore throat EYES: Denies changes in vision Resp: Has had recent dry cough, a little bit short of breath at present Cardiac: Has had burning pain in chest GI: Intermittently will get a little bit of left-sided abdominal pain, did temporarily have some diarrhea for 2 days, little bit of nausea with poor p.o. : Does not make urine Extremity: Denies any increase in swelling MSK: Feels a little bit unwell overall Neuro: Denies any numbness/tingling Heme: Denies any bleeding or bruising Skin: Denies rashes Psychiatric: No complaints voiced Vital Signs Vital Signs Vital Signs: 04/29/25 11:38 04/29/25 11:44 04/29/25 11:44 Temperature 98.4 F 98.5 F Temperature Source Oral Oral Pulse Rate 98 61 Pulse Rate [Lying] Pulse Rate [Sitting (for 1 minute prior to obtaining)] Pulse Rate [Standing (for 1 minute prior to obtaining)] Respiratory Rate 20 H 20 H Respiratory Effort Normal Respiratory Depth Normal Respiratory Pattern Normal Blood Pressure 191/63 H 191/80 H Blood Pressure [Lying] Blood Pressure [Sitting (for 1 minute prior to obtaining)] Blood Pressure [Standing (for 1 minute prior to obtaining)] Blood Pressure Mean 105 117 Blood Pressure Mean [Lying] Blood Pressure Mean [Sitting (for 1 minute prior to obtaining)] Blood Pressure Mean [Standing (for 1 minute prior to obtaining)] Pulse Ox 98 98 Oxygen Delivery Method Room Air Room Air Room Air Oxygen Flow Rate (L/min) 04/29/25 12:44 04/29/25 12:44 04/29/25 13:00 Temperature 98.7 F Temperature Source Oral Pulse Rate 70 69 70 Pulse Rate [Lying] Pulse Rate [Sitting (for 1 minute prior to obtaining)] Pulse Rate [Standing (for 1 minute prior to obtaining)] Respiratory Rate 18 20 H 19 H Respiratory Effort Respiratory Depth Respiratory Pattern Blood Pressure 193/67 H 193/67 H 197/74 H Blood Pressure [Lying] Blood Pressure [Sitting (for 1 minute prior to obtaining)] Blood Pressure [Standing (for 1 minute prior to obtaining)] Blood Pressure Mean 109 109 115 Blood Pressure Mean [Lying] Blood Pressure Mean [Sitting (for 1 minute prior to obtaining)] Blood Pressure Mean [Standing (for 1 minute prior to obtaining)] Pulse Ox 94 94 94 Oxygen Delivery Method Nasal Cannula Nasal Cannula Oxygen Flow Rate (L/min) 2 2 04/29/25 13:17 04/29/25 14:00 04/29/25 14:30 Temperature 98.7 F Temperature Source Pulse Rate 71 71 Pulse Rate [Lying] 71 Pulse Rate [Sitting (for 1 minute prior to obtaining)] 73 Pulse Rate [Standing (for 1 minute prior to obtaining)] 68 Respiratory Rate 23 H 23 H Respiratory Effort Respiratory Depth Respiratory Pattern Blood Pressure 184/69 H 184/69 H Blood Pressure [Lying] 202/76 H Blood Pressure [Sitting (for 1 minute prior to obtaining)] 196/72 H Blood Pressure [Standing (for 1 minute prior to obtaining)] 184/65 H Blood Pressure Mean 107 107 Blood Pressure Mean [Lying] 118 Blood Pressure Mean [Sitting (for 1 minute prior to obtaining)] 113 Blood Pressure Mean [Standing (for 1 minute prior to obtaining)] 104 Pulse Ox 93 93 Oxygen Delivery Method Nasal Cannula Oxygen Flow Rate (L/min) 04/29/25 14:43 04/29/25 14:46 04/29/25 15:00 Temperature Temperature Source Pulse Rate 71 Pulse Rate [Lying] Pulse Rate [Sitting (for 1 minute prior to obtaining)] Pulse Rate [Standing (for 1 minute prior to obtaining)] Respiratory Rate 24 H Respiratory Effort Respiratory Depth Respiratory Pattern Blood Pressure 188/69 H Blood Pressure [Lying] Blood Pressure [Sitting (for 1 minute prior to obtaining)] Blood Pressure [Standing (for 1 minute prior to obtaining)] Blood Pressure Mean 108 Blood Pressure Mean [Lying] Blood Pressure Mean [Sitting (for 1 minute prior to obtaining)] Blood Pressure Mean [Standing (for 1 minute prior to obtaining)] Pulse Ox 86 91 94 Oxygen Delivery Method Room Air Nasal Cannula Nasal Cannula Oxygen Flow Rate (L/min) 3 4 04/29/25 15:15 Temperature 98.7 F Temperature Source Pulse Rate 71 Pulse Rate [Lying] Pulse Rate [Sitting (for 1 minute prior to obtaining)] Pulse Rate [Standing (for 1 minute prior to obtaining)] Respiratory Rate 23 H Respiratory Effort Respiratory Depth Respiratory Pattern Blood Pressure 184/69 H Blood Pressure [Lying] Blood Pressure [Sitting (for 1 minute prior to obtaining)] Blood Pressure [Standing (for 1 minute prior to obtaining)] Blood Pressure Mean 107 Blood Pressure Mean [Lying] Blood Pressure Mean [Sitting (for 1 minute prior to obtaining)] Blood Pressure Mean [Standing (for 1 minute prior to obtaining)] Pulse Ox 91 Oxygen Delivery Method Oxygen Flow Rate (L/min) Weight Weight: 82.2 kg Body Mass Index (BMI) 33.1 Physical Exam Narrative General: Alert, oriented, no apparent distress HEENT: Atraumatic, normocephalic Eyes: Anicteric, normal conjunctiva, extraocular movements grossly intact Neck: Supple Respiratory: Diminished with crackles bilaterally, slight increased respiratory effort Cardiovascular: Regular rate and rhythm GI: Soft, nontender, nondistended Extremities: No significant peripheral pitting edema Musculoskeletal: Moving all extremities Neuro: No overt focal neurological deficits Skin: No rashes appreciated Psych: Cooperative Results Lab / Micro Data 04/29/25 12:11 04/29/25 12:11 Labs: Laboratory Results - last 24 hr 04/29/25 12:11: WBC 5.8, RBC 3.53 L, Hgb 10.1 L, Hct 31.4 L, MCV 89.0, MCH 28.6, MCHC 32.2, RDW Std Deviation 53.6 H, RDW Coeff of Tana 16.4 H, Plt Count 271, MPV 9.3, Immature Gran % (Auto) 0.200, Neut % (Auto) 72.8 H, Lymph % (Auto) 13.5 L, [place] % (Auto) 6.9, Eos % (Auto) 5.7 H, Baso % (Auto) 0.9, Absolute Neuts (auto) 4.2, Absolute Lymphs (auto) 0.78 L, Nucleated RBC % 0, Sodium 134, Potassium 4.9, Chloride 94 L, Carbon Dioxide 22.5, Anion Gap 18 H, BUN 49 H, Creatinine 10.90 H*, Estim Creat Clear Calc 5.45 L*, Est GFR (MDRD) Non-Af 4 L, BUN/Creatinine Ratio 4.5 L, Glucose 97, Calcium 8.0 Imaging Radiology Impression Chest X-Ray 04/29/25 14:50 IMPRESSION: Cardiomegaly and CHF. Bibasilar atelectasis. Reading Location: [facility] Assessment & Plan Assessment/Plan (1) Hypoxia: PLAN: Plan # Acute hypoxia secondary to fluid overload from missed dialysis -Chest x-ray suggestive of fluid overload, patient dropped to 88% on room air and then 86, requiring 4 L now to maintain sats -Nephrology consulted for dialysis -Patient does not make urine -Supportive care #ESRD on HD -Secondary to congenital polycystic kidney disease status with bilateral nephrectomy -Follows with Dr. José Luis Kaba -Consult nephrology -Renal diet -Daily weights, I's and O's #Hypertension - Patient significantly hypertensive, continue home medications, suspect this will improve with dialysis - Appears she has struggled with hypotension with dialysis previously and had even taken midodrine per cardiology note reviewed from 04/16/2025, hesitant to make changes in light of this -Will further determine depending on patient's postdialysis blood pressures - Advise close outpatient follow-up for further adjustment and monitoring blood pressure #Burning feeling in chest - Patient with burning feeling in her chest that is worse with coughing - Pharmacologic stress test March 2025 no acute process -CT chest in March with cardiomegaly and small pericardial effusion, scattered mediastinal lymph nodes likely reactive -EKG at that time with no evidence of acute ischemia and was similar to prior -Echo at that time with preserved EF of 65% with no wall motion abnormalities, stage II diastolic dysfunction, PASP 40mmHg - Troponins have been fairly flat in the setting of end-stage renal disease -Patient and daughter report they are considering a second opinion in [place] from a cardiac standpoint - May want to consider outpatient GI workup/scope given the burning nature and thus far lack of cardiac cause, patient did seem to have some relief with GI cocktail in the ED - Will add PPI # History of DVT -Patient on Coumadin - INR elevated at 3.8, repeat in the a.m., holding Coumadin pending repeat INR - May need adjustment versus close follow-up PCP depending on a.m. level #Hx of CAD and defibrillator -w/ previous stenting -Continue home medications - Patient also has home defibrillator due to history of torsades de pointes and underwent implantation July 2016 #GERD -Continue PPI #Hypothyroidism -Continue Synthroid #DVT ppx: On Coumadin, additionally SCDs Manuela Mancini MD Time spent in the patient's overall evaluation,decision-making process, review of diagnostic data, adjustment of management, discussion with other providers, nursing nursing and ancillary staff involved in patient's care documentation, 76 Minutes Charges/Coding Visit Charges Inpatient E&M: 58790 Init Hosp L3
[2025-04-29 15:48] LABS: Troponin T High Sensitivity 70 ng/L (<=14)
[2025-04-29 15:49] LABS: Troponin T High Sens 2 HR 72 ng/L (<=14)
[2025-04-29] MEDS: 0.9% Normal Saline 1,000 ML IV.SOLN. 1000 ML OPERA.SITE (16:53)
--- NOTE | 2025-04-29 17:06 | CASEMGMT ---
Social Work Patients last face to face assessment was completed less than 30 days ago, patient verified no changes since last assessment. Patient plans to DC home when medically ready. Marisa Myles, ASSOCIATE DIRECTOR QA, STAGE SETTINGS PAINTER
[2025-04-29 17:31] LABS: Prothrombin Time (Protime)PT. 38.7 SECONDS (11.7-14.9)
[2025-04-29] MEDS: SEVELAMER CARBONATE 800 MG TABLET 4000 MG PO (18:15)
[2025-04-29 18:20] LABS: Troponin T High Sens 4 HR 68 ng/L (<=14)
[2025-04-29] MEDS: Azelastine HCl NASAL.SRY 1 SPRAY NASAL (20:33)
--- NOTE | 2025-04-29 20:59 | PCM.CONS.R ---
Assessment & Plan Assessment/Plan (1) ESRD (end stage renal disease) on dialysis: PLAN: on HD. has been losing weight unintentially. mostly upper GI symptoms. has been working with PCP about this.EDW adjusted down multiple times. even now close to last EDW. will likely need further adjustment down. UF today and HD tomorrow. HPI Consult Data Date of Consult: 04/29/25 HPI Narrative Reason for Consultation: ESRD HPI Narrative: SPENCER ALLEN, is a 59 F who presents to the hospital with abdomen discomfort. renal consulted in view of ESRD. on HD MWF schedule. has been losing weight unintentionally. no LE edema. Bp has been ok. [facility] Medical History (Updated 04/29/25 @ 15:[address] Manuela Mancini MD) CHF (congestive heart failure) Polycystic kidney disease Sudden cardiac Hypertriglyceridemia Hyperlipidemia History of torsades de pointes Atherosclerosis of coronary artery of [place] heart without angina pectoris Syncope and collapse Ventricular fibrillation Ischemic cardiomyopathy ESRD (end stage renal disease) on dialysis Nonsustained ventricular tachycardia History of recurrent miscarriages, not currently History of DVT (deep vein thrombosis) Congenital polycystic kidney disease History of allergic rhinitis Obesity Benign essential hypertension Home Medications ?Medication ?Instructions ?Recorded ?Last Taken ?Type sertraline 50 mg tablet 75 mg PO QHS depression 01/19/17 04/28/25 History cholecalciferol (vitamin D3) 25 1,000 unit PO QDAY supplement 10/24/17 04/28/25 History mcg (1,000 unit) tablet sevelamer carbonate 800 mg tablet 4,000 mg PO TIDCM binder 30 days 06/11/21 04/28/25 History #90 tabs nitroglycerin 0.4 mg sublingual 0.4 mg sublingual Q5M PRN Chest 10/14/22 03/15/23 Rx tablet Pain #25 tabs atorvastatin 10 mg tablet 10 mg PO DAILY cholesterol #30 tabs 10/11/24 04/28/25 Rx levothyroxine 25 mcg tablet 25 mcg PO QDAY thyroid 10/11/24 04/29/25 History warfarin 2 mg tablet 9 mg PO SUTUTHSA blood thinner 10/11/24 04/28/25 History warfarin 3 mg tablet 8 mg PO MOWEFR blood thinner 10/11/24 04/19/25 History zolpidem 10 mg tablet 10 mg PO QHS PRN insomnia 10/11/24 Unknown History carvedilol 6.25 mg tablet 6.25 mg PO BID blood pressure 03/29/25 04/29/25 History amlodipine 10 mg tablet 10 mg PO DAILY 30 days #30 tabs 04/01/25 04/28/25 Rx azelastine 137 mcg (0.1 %) nasal 1 spray intranasal BID 04/16/25 04/28/25 History spray benzonatate 100 mg capsule 100 mg PO TID PRN cough #30 caps 04/25/25 Unknown Rx omeprazole 40 mg capsule,delayed 40 mg PO DAILY #30 caps 04/29/25 Unknown Rx release telmisartan 80 mg tablet 80 mg PO BID 04/29/25 04/28/25 History warfarin 5 mg tablet 5 mg PO DAILY 04/29/25 04/28/25 History Allergy/AdvReac Type Severity Reaction Status Date / Time amoxicillin Allergy Rash Verified 04/29/25 11:38 doxercalciferol (From Allergy Hives Verified 04/29/25 11:38 Hectorol) etodolac Allergy Rash Verified 04/29/25 11:38 Penicillins (PCN) Allergy Rash Verified 04/29/25 11:38 sulfamethoxazole (From Allergy Rash Verified 04/29/25 11:38 Bactrim) tramadol Allergy Rash Verified 04/29/25 11:38 trimethoprim (From Bactrim) Allergy Rash Verified 04/29/25 11:38 strawberry AdvReac Vomiting Verified 04/29/25 11:38 Family History Father Hypertension Kidney disease Mother Diabetes Surgical History (Updated 04/29/25 @ 14:[address] Yaniv Aguero MD) Hx of kidney removal History of implantable cardiac defibrillator (ICD) (11/22/19) History of coronary artery stent placement (04/22/16) fistulogram History of thyroid surgery Social History household members: none Smoking Status: Never smoker alcohol intake: never substance use type: does not use diet: other caffeine: No what type of physical activity do you participate in: none seatbelt use: always do you feel safe at home: Yes ROS ROS Narrative negative except HPI Physical Exam Narrative Alert awake oriented x 3 no obvious distress no pallor no icterus no JVD s1s2 no murmurs lungs clear abdomen soft no organomegaly no edema Lab / Micro Data 04/29/25 12:11 04/29/25 12:11 Labs: Laboratory Results - last 24 hr 04/29/25 12:11: WBC 5.8, RBC 3.53 L, Hgb 10.1 L, Hct 31.4 L, MCV 89.0, MCH 28.6, MCHC 32.2, RDW Std Deviation 53.6 H, RDW Coeff of [place] 16.4 H, Plt Count 271, MPV 9.3, Immature Gran % (Auto) 0.200, Neut % (Auto) 72.8 H, Lymph % (Auto) 13.5 L, [place] % (Auto) 6.9, Eos % (Auto) 5.7 H, Baso % (Auto) 0.9, Absolute Neuts (auto) 4.2, Absolute Lymphs (auto) 0.78 L, Nucleated RBC % 0, PT 38.7 H, INR 3.8, Sodium 134, Potassium 4.9, Chloride 94 L, Carbon Dioxide 22.5, Anion Gap 18 H, BUN 49 H, Creatinine 10.90 H*, Estim Creat Clear Calc 5.45 L*, Est GFR (MDRD) Non-Af 4 L, BUN/Creatinine Ratio 4.5 L, Glucose 97, Calcium 8.0, Troponin T High Sens 70 H* D 04/29/25 15:11: Troponin T Hi Sens 2 Hr 72 H* 04/29/25 17:10: Troponin T Hi Sens 4Hr 68 H* Micro: Microbiology 04/29/25 20:16 Nasal Secretion SARS-CoV-2 Antigen (Rapid) - Final Imaging Radiology Impression Chest X-Ray 04/29/25 14:50 IMPRESSION: Cardiomegaly and CHF. Bibasilar atelectasis. Reading Location: [place] [id number]
[2025-04-30] VITALS (14 sets, daily range): BP systolic 157–190; BP diastolic 47–91; PULSE 47–67; RESP 14–18; TEMP 36.1–37.1; O2SAT 94–99; BMI 30.9; BMI 29.9
[2025-04-30 06:06] LABS: Hematocrit 31.5 % (37-47); Hemoglobin 10.1 g/dL (12.0-15.0); Immature Granulocytes Count 0.010 X10^3/uL (0.0-0.0); Mean Corp Hgb Conc 32.1 g/dL (32-36); Mean Corpuscular Volume 88.2 fL (81-99); Mean Platelet Vol. 9.3 fl (6.2-12.0); NRBC Flagged by Analyzer 0 % (0-5); Platelet Count 241 K/mm3 (150-450); RBC Distribution Width CV 16.0 % (11.6-14.6); RBC Distribution Width SD 52.4 fl (35.1-43.9); Red Blood Count 3.57 M/mm3 (4.2-5.4); White Blood Count 5.2 K/mm3 (4.4-11.0)
[2025-04-30 06:07] LABS: Prothrombin Time (Protime)PT. 43.6 SECONDS (11.7-14.9)
[2025-04-30 06:28] LABS: Anion Gap 19 (5-15); BUN 62 mg/dL (4-19); BUN/Creat Ratio 5.0 RATIO (10-20); Calcium,Total 8.0 mg/dL (7.6-11.0); Carbon Dioxide 25.0 mmol/L (21.0-32.0); Chloride 96 mmol/L (98-108); Estimated Creatinine Clearance 4.58 ml/min (50-250); Glucose 82 mg/dL (70-99); Potassium 4.8 mmol/L (3.3-5.1)
--- NOTE | 2025-04-30 08:45 | PN.HOSP_ITS ---
Reason for Visit Chief Complaint: Chest pain, low oxygen Objective Data Objective Data Vital Signs: Vital Signs Temp Pulse Resp BP Pulse Ox O2 Del Method O2 Flow Rate 37.1 C 64 16 181/59 H 96 Nasal Cannula 3 04/30/25 08:08 04/30/25 08:08 04/30/25 08:08 04/30/25 08:08 04/30/25 08:08 04/30/25 08:08 04/30/25 08:08 Oxygen Flow Rate (L/min) 3 Oxygen Delivery Method Nasal Cannula Weight: 76.4 kg Body Mass Index (BMI) 30.9 Intake & Output: Intake and Output for Last 24 Hours 04/28/25 04/29/25 04/30/25 23:59 23:59 23:59 Intake Total 540 / 540 Output Total 2500 / 2500 Balance -2500 / -2200 540 / 540 Lab / Micro Data 04/30/25 05:41 04/30/25 05:41 Labs: Laboratory Results - last 24 hr 04/29/25 12:11: WBC 5.8, RBC 3.53 L, Hgb 10.1 L, Hct 31.4 L, MCV 89.0, MCH 28.6, MCHC 32.2, RDW Std Deviation 53.6 H, RDW Coeff of [place] 16.4 H, Plt Count 271, MPV 9.3, Immature Gran % (Auto) 0.200, Neut % (Auto) 72.8 H, Lymph % (Auto) 13.5 L, [place] % (Auto) 6.9, Eos % (Auto) 5.7 H, Baso % (Auto) 0.9, Absolute Neuts (auto) 4.2, Absolute Lymphs (auto) 0.78 L, Nucleated RBC % 0, PT 38.7 H, INR 3.8, Sodium 134, Potassium 4.9, Chloride 94 L, Carbon Dioxide 22.5, Anion Gap 18 H, B UN 49 H, Creatinine 10.90 H*, Estim Creat Clear Calc 5.45 L*, Est GFR (MDRD) Non-Af 4 L, BUN/Creatinine Ratio 4.5 L, Glucose 97, Calcium 8.0, Troponin T High Sens 70 H* D 04/29/25 15:11: Troponin T Hi Sens 2 Hr 72 H* 04/29/25 17:10: Troponin T Hi Sens 4Hr 68 H* 04/30/25 05:41: WBC 5.2, RBC 3.57 L, Hgb 10.1 L, Hct 31.5 L, MCV 88.2, MCH 28.3, MCHC 32.1, RDW Std Deviation 52.4 H, RDW Coeff of [place] 16.0 H, Plt Count 241, MPV 9.3, Immature Gran % (Auto) 0.200, Neut % (Auto) 67.4, Lymph % (Auto) 17.0 L, [place] % (Auto) 6.7, Eos % (Auto) 7.6 H, Baso % (Auto) 1.1 H, Absolute Neuts (auto) 3.5, Absolute Lymphs (auto) 0.89, Nucleated RBC % 0, PT 43.6 H, INR 4.5 H*, Sodium 139, Potassium 4.8, Chloride 96 L, Carbon Dioxide 25.0, Anion Gap 19 H, BUN 62 H, Creatinine 12.50 H*, Estim Creat Clear Calc 4.58 L*, Est GFR (MDRD) Non-Af 3 L, BUN/Creatinine Ratio 5.0 L, Glucose 82, Calcium 8.0 Micro: Microbiology 04/29/25 19:14 Mucosa - Nasopharyngeal Respiratory Panel (PCR) - Final 04/29/25 20:16 Nasal Secretion SARS-CoV-2 Antigen (Rapid) - Final Radiography Diagnostic Testing: Radiology Impression Chest X-Ray 04/29/25 14:50 IMPRESSION: Cardiomegaly and CHF. Bibasilar atelectasis. Reading Location: [facility] Assessment & Plan Assessment/Plan (1) Hypoxia: PLAN: Plan Acute hypoxia secondary to fluid overload from missed dialysis * Chest x-ray suggestive of fluid overload, patient dropped to 88% on room air and then 86, requiring 4 L now to maintain sats * nephrology consulted for dialysis * Patient does not make urine ESRD on HD * Secondary to congenital polycystic kidney disease status with bilateral nephrectomy * Follows with Dr. José Luis Kaba * Consult nephrology * Renal diet * Daily weights, I's and O's Hypertension * Patient significantly hypertensive, continue home medications, suspect this will improve with dialysis * Appears she has struggled with hypotension with dialysis previously and had even taken midodrine per cardiology note reviewed from 04/16/2025, hesitant to make changes in light of this * Will further determine depending on patient's postdialysis blood pressures * Advise close outpatient follow-up for further adjustment and monitoring blood pressure Burning feeling in chest * Patient with burning feeling in her chest that is worse with coughing * Pharmacologic stress test March 2025 no acute process * CT chest in March with cardiomegaly and small pericardial effusion, scattered mediastinal lymph nodes likely reactive * EKG at that time with no evidence of acute ischemia and was similar to prior * Echo at that time with preserved EF of 65% with no wall motion abnormalities, stage II diastolic dysfunction, PASP 40mmHg * Troponins have been fairly flat in the setting of end-stage renal disease * Patient and daughter report they are considering a second opinion in [place] from a cardiac standpoint * May want to consider outpatient GI workup/scope given the burning nature and thus far lack of cardiac cause, patient did seem to have some relief with GI cocktail in the ED History of DVT * Patient on Coumadin, currently held * INR elevated at 4.5, repeat in the a.m., holding Coumadin pending repeat INR * May need adjustment versus close follow-up PCP depending on a.m. level Hx of CAD and defibrillator * w/ previous stenting * Continue home medications * Patient also has home defibrillator due to history of torsades de pointes and underwent implantation July 2016 GERD * Continue PPI Hypothyroidism * Continue Synthroid DVT ppx: anticoagulated
--- NOTE | 2025-04-30 08:45 | PCM.PN.HOSP ---
Reason for Visit Chief Complaint: Chest pain, low oxygen Subjective Subjective Has not been eating for some time and has early satiety and also gets nauseated with any type of food or smell. Also complaints of abdominal pain. Objective Data Objective Data Vital Signs: Vital Signs Temp Pulse Resp BP Pulse Ox O2 Del Method O2 Flow Rate 37.1 C 64 16 181/59 H 96 Nasal Cannula 3 04/30/25 08:08 04/30/25 08:08 04/30/25 08:08 04/30/25 08:08 04/30/25 08:08 04/30/25 08:08 04/30/25 08:08 Oxygen Flow Rate (L/min) 3 Oxygen Delivery Method Nasal Cannula Weight: 76.4 kg Body Mass Index (BMI) 30.9 Intake & Output: Intake and Output for Last 24 Hours 04/28/25 04/29/25 04/30/25 23:59 23:59 23:59 Intake Total 540 / 540 Output Total 2500 / 2500 Balance -2500 / -2200 540 / 540 Lab / Micro Data 04/30/25 05:41 04/30/25 05:41 Labs: Laboratory Results - last 24 hr 04/29/25 12:11: WBC 5.8, RBC 3.53 L, Hgb 10.1 L, Hct 31.4 L, MCV 89.0, MCH 28.6, MCHC 32.2, RDW Std Deviation 53.6 H, RDW Coeff of Tana 16.4 H, Plt Count 271, MPV 9.3, Immature Gran % (Auto) 0.200, Neut % (Auto) 72.8 H, Lymph % (Auto) 13.5 L, [place] % (Auto) 6.9, Eos % (Auto) 5.7 H, Baso % (Auto) 0.9, Absolute Neuts (auto) 4.2, Absolute Lymphs (auto) 0.78 L, Nucleated RBC % 0, PT 38.7 H, INR 3.8, Sodium 134, Potassium 4.9, Chloride 94 L, Carbon Dioxide 22.5, Anion Gap 18 H, BUN 49 H, Creatinine 10.90 H*, Estim Creat Clear Calc 5.45 L*, Est GFR (MDRD) Non-Af 4 L, BUN/Creatinine Ratio 4.5 L, Glucose 97, Calcium 8.0, Troponin T High Sens 70 H* D 04/29/25 15:11: Troponin T Hi Sens 2 Hr 72 H* 04/29/25 17:10: Troponin T Hi Sens 4Hr 68 H* 04/30/25 05:41: WBC 5.2, RBC 3.57 L, Hgb 10.1 L, Hct 31.5 L, MCV 88.2, MCH 28.3, MCHC 32.1, RDW Std Deviation 52.4 H, RDW Coeff of Tana 16.0 H, Plt Count 241, MPV 9.3, Immature Gran % (Auto) 0.200, Neut % (Auto) 67.4, Lymph % (Auto) 17.0 L, [place] % (Auto) 6.7, Eos % (Auto) 7.6 H, Baso % (Auto) 1.1 H, Absolute Neuts (auto) 3.5, Absolute Lymphs (auto) 0.89, Nucleated RBC % 0, PT 43.6 H, INR 4.5 H*, Sodium 139, Potassium 4.8, Chloride 96 L, Carbon Dioxide 25.0, Anion Gap 19 H, BUN 62 H, Creatinine 12.50 H*, Estim Creat Clear Calc 4.58 L*, Est GFR (MDRD) Non-Af 3 L, BUN/Creatinine Ratio 5.0 L, Glucose 82, Calcium 8.0 Micro: Microbiology 04/29/25 19:14 Mucosa - Nasopharyngeal Respiratory Panel (PCR) - Final 04/29/25 20:16 Nasal Secretion SARS-CoV-2 Antigen (Rapid) - Final Radiography Diagnostic Testing: Radiology Impression Chest X-Ray 04/29/25 14:50 IMPRESSION: Cardiomegaly and CHF. Bibasilar atelectasis. Reading Location: [facility] Physical Exam Const alert and no apparent distress Constitutional Narrative: Lying in bed. Seen while she was on dialysis. HEENT head/scalp atraumatic and moist oral mucous membranes Resp normal respiratory effort, no retractions, no use of accessory muscles and clear to auscultation bilaterally Cardio regular rate, regular rhythm, S1 normal heart sound and S2 normal heart sound GI normal to inspection, nondistended, normoactive bowel sounds, soft to palpation and non-distended GI Narrative: Emboli: Slight to the left side abdominal pain. No masses appreciated. Neuro Sensorium / Orientation: awake, alert, oriented to person and oriented to place Assessment & Plan Assessment/Plan (1) Hypoxia: PLAN: Plan Acute hypoxia secondary to fluid overload from missed dialysis Chest x-ray suggestive of fluid overload, patient dropped to 88% on room air and then 86, requiring 4 L now to maintain sats nephrology consulted for dialysis Patient does not make urine ESRD on HD Secondary to congenital polycystic kidney disease status with bilateral nephrectomy Follows with Dr. José Luis Kaba Consult nephrology Renal diet Daily weights, I's and O's Hypertension Patient significantly hypertensive, continue home medications, suspect this will improve with dialysis Appears she has struggled with hypotension with dialysis previously and had even taken midodrine per cardiology note reviewed from 04/16/2025, hesitant to make changes in light of this Will further determine depending on patient's postdialysis blood pressures Advise close outpatient follow-up for further adjustment and monitoring blood pressure Abdominal pain Unclear etiology Verified with finance attorney patient has lost roughly 5 kg over the past month. Check a CT of the abdomen pelvis with oral contrast only. Check LFTs. History of DVT Patient on Coumadin, currently held INR elevated at 4.5, repeat in the a.m., Likely complicated by not eating. Hx of CAD and defibrillator w/ previous stenting Continue home medications Patient also has home defibrillator due to history of torsades de pointes and underwent implantation July 2016 GERD Continue PPI Hypothyroidism Continue Synthroid DVT ppx: anticoagulated DW patient's dtr at bedside. Charges/Coding Visit Charges Inpatient E&M: 35094 Subs Hosp L2
[2025-04-30] MEDS: 0.9% Normal Saline 1,000 ML IV.SOLN. 1000 ML OPERA.SITE (08:46)
[2025-04-30] MEDS: PureFlow B 2K Dialysis Soln 1 BAG 6 BAG PF (08:46)
[2025-04-30] MEDS: SEVELAMER CARBONATE 800 MG TABLET 4000 MG PO ×2 (12:45→16:43)
--- NOTE | 2025-04-30 14:02 | CT_ITS ---
PROCEDURE: ABDOMEN/PEL W ORAL CONT ONLY 04/30/2025 REASON FOR EXAM: ABDOMINAL PAIN. WEIGHT LOSS TECHNIQUE: Procedure Code: [id number] Modality: CT Procedure: ABDOMEN/PEL W ORAL CONT ONLY Noncontrast technique limits evaluation of the abdominal and pelvic viscera. Coronal and Sagittal reconstruction series were provided. One or more dose reduction techniques were used (e.g., Automated exposure control, adjustment of the mA and/or kV according to patient size, use of iterative reconstruction technique). COMPARISON: 03/19/2020. FINDINGS: Lack of IV contrast limits evaluation. Hepatomegaly, increased since the previous study. Moderate-sized bilateral pleural effusions. Consolidated portions of the bilateral lower lobes of the lungs may represent compressive atelectasis and/or infiltrates. Hepatosplenomegaly, unchanged. A 10 mm oval low-density within the left lobe of the liver is new or increased in size since the previous study. This may represent a cyst. Bilateral nephrectomies, new since the previous study. No evidence of a bowel obstruction. No abnormal bowel wall thickening. The appendix is visualized and normal-appearing. The uterus is present. The near completely decompressed urinary bladder appears unremarkable. Extensive atherosclerotic calcifications. No intraperitoneal free air or free fluid. No acute osseous abnormality. CT/Abdomen/Pel W ORAL Cont Only IMPRESSION: Moderate-sized bilateral pleural effusions. Bilateral lower lobe compressive a telectasis and/or infiltrates. Hepatosplenomegaly, unchanged. Oval 10 mm low-density within the left lobe of the liver, new or increased since the previous study and may represent a cyst. Lack of IV contrast limits further evaluation. Cardiomegaly, increased since the previous study. Bilateral nephrectomies, new since the previous study. Extensive atherosclerosis. Reading Location: [id number]
[2025-04-30 16:02] LABS: AST(SGOT) 12 U/L (<=31); Alanine Aminotransfer ALT/SGPT 16 U/L (<=34); Albumin, Serum 3.8 g/dL (3.4-4.8); Alkaline Phosphatase 52 U/L (35-104); Bilirubin, Direct 0.21 mg/dL (0.00-0.30); Globulin 2.1 g/dL (2.2-4.2)
--- NOTE | 2025-04-30 17:35 | PCM.PN.REN ---
Subjective Subjective seen on HD today Objective Data Objective Data Vital Signs: Vital Signs Temp Pulse Resp BP Pulse Ox O2 Del Method O2 Flow Rate 98.7 F 64 16 158/53 H 94 Nasal Cannula 2 04/30/25 16:36 04/30/25 16:36 04/30/25 16:36 04/30/25 16:36 04/30/25 16:36 04/30/25 16:36 04/30/25 16:36 Oxygen Flow Rate (L/min) 2 Oxygen Delivery Method Nasal Cannula Weight: 73.7 kg Body Mass Index (BMI) 29.9 Intake & Output: Intake and Output for Last 24 Hours 04/28/25 04/29/25 04/30/25 23:59 23:59 23:59 Intake Total 540 / 540 Output Total 2500 / 2500 2720 / 2720 Balance -2500 / -2200 -2180 / -2180 Lab / Micro Data 04/30/25 05:41 04/30/25 05:41 Labs: Laboratory Results - last 24 hr 04/29/25 17:10: Troponin T Hi Sens 4Hr 68 H* 04/30/25 05:41: WBC 5.2, RBC 3.57 L, Hgb 10.1 L, Hct 31.5 L, MCV 88.2, MCH 28.3, MCHC 32.1, RDW Std Deviation 52.4 H, RDW Coeff of Tana 16.0 H, Plt Count 241, MPV 9.3, Immature Gran % (Auto) 0.200, Neut % (Auto) 67.4, Lymph % (Auto) 17.0 L, [place] % (Auto) 6.7, Eos % (Auto) 7.6 H, Baso % (Auto) 1.1 H, Absolute Neuts (auto) 3.5, Absolute Lymphs (auto) 0.89, Nucleated RBC % 0, PT 43.6 H, INR 4.5 H*, Sodium 139, Potassium 4.8, Chloride 96 L, Carbon Dioxide 25.0, Anion Gap 19 H, BUN 62 H, Creatinine 12.50 H*, Estim Creat Clear Calc 4.58 L*, Est GFR (MDRD) Non-Af 3 L, BUN/Creatinine Ratio 5.0 L, Glucose 82, Calcium 8.0, Total Bilirubin 0.46, Direct Bilirubin 0.21, AST 12, ALT 16, Alkaline Phosphatase 52, Total Protein 5.9, Albumin 3.8, Globulin 2.1 L Micro: Microbiology 04/29/25 19:14 Mucosa - Nasopharyngeal Respiratory Panel (PCR) - Final 04/29/25 20:16 Nasal Secretion SARS-CoV-2 Antigen (Rapid) - Final Physical Exam Narrative Alert awake oriented x 3 no obvious distress no pallor no icterus no JVD s1s2 no murmurs lungs clear abdomen soft no organomegaly no edema Assessment & Plan Assessment/Plan (1) ESRD (end stage renal disease) on dialysis: PLAN: on HD. has been losing weight unintentially. mostly upper GI symptoms. has been working with PCP about this.EDW adjusted down multiple times. even now she is under her EDW. dw hospitalist. ? GI evaluation
[2025-04-30] MEDS: Azelastine HCl NASAL.SRY 1 SPRAY NASAL (22:25)
[2025-05-01] VITALS (13 sets, daily range): BP systolic 125–172; BP diastolic 57–64; PULSE 50–64; RESP 14–18; TEMP 36.6–36.9; O2SAT 88–100; BMI 30.9; BMI 30.7
[2025-05-01 06:42] LABS: Hematocrit 31.5 % (37-47); Hemoglobin 10.1 g/dL (12.0-15.0); Immature Granulocytes Count 0.020 X10^3/uL (0.0-0.0); Mean Corp Hgb Conc 32.1 g/dL (32-36); Mean Corpuscular Volume 87.3 fL (81-99); Mean Platelet Vol. 9.1 fl (6.2-12.0); NRBC Flagged by Analyzer 0 % (0-5); Platelet Count 257 K/mm3 (150-450); RBC Distribution Width CV 15.9 % (11.6-14.6); RBC Distribution Width SD 50.4 fl (35.1-43.9); Red Blood Count 3.61 M/mm3 (4.2-5.4); White Blood Count 5.4 K/mm3 (4.4-11.0)
[2025-05-01 06:50] LABS: Prothrombin Time (Protime)PT. 41.4 SECONDS (11.7-14.9)
[2025-05-01 07:42] LABS: Anion Gap 16 (5-15); BUN 46 mg/dL (4-19); BUN/Creat Ratio 5.0 RATIO (10-20); Calcium,Total 8.1 mg/dL (7.6-11.0); Carbon Dioxide 25.6 mmol/L (21.0-32.0); Chloride 96 mmol/L (98-108); Estimated Creatinine Clearance 6.14 ml/min (50-250); Glucose 96 mg/dL (70-99); Potassium 4.4 mmol/L (3.3-5.1)
--- NOTE | 2025-05-01 08:18 | PN.HOSP_ITS ---
Reason for Visit Chief Complaint: Chest pain, low oxygen Subjective Subjective Feeling better. Did not eat much. Objective Data Objective Data Vital Signs: Vital Signs Temp Pulse Resp BP Pulse Ox O2 Del Method O2 Flow Rate 36.6 C 63 18 167/60 H 98 Nasal Cannula 2 05/01/25 04:46 05/01/25 04:46 05/01/25 04:46 05/01/25 04:46 05/01/25 04:46 05/01/25 04:46 05/01/25 04:46 Oxygen Flow Rate (L/min) 2 Oxygen Delivery Method Nasal Cannula Weight: 76.6 kg Body Mass Index (BMI) 30.9 Intake & Output: Intake and Output for Last 24 Hours 04/29/25 04/30/25 05/01/25 23:59 23:59 23:59 Intake Total 1460 / 1460 Output Total 2500 / 2500 2720 / 2720 Balance -2500 / -2200 -1260 / -1260 Lab / Micro Data 05/01/25 06:32 05/01/25 06:32 Labs: Laboratory Results - last 24 hr 04/30/25 05:41: Total Bilirubin 0.46, Direct Bilirubin 0.21, AST 12, ALT 16, Alkaline Phosphatase 52, Total Protein 5.9, Albumin 3.8, Globulin 2.1 L 05/01/25 06:32: WBC 5.4, RBC 3.61 L, Hgb 10.1 L, Hct 31.5 L, MCV 87.3, MCH 28.0, MCHC 32.1, RDW Std Deviation 50.4 H, RDW Coeff of Tana 15.9 H, Plt Count 257, MPV 9.1, Immature Gran % (Auto) 0.400, Neut % (Auto) 65.2, Lymph % (Auto) 14.4 L, [place] % (Auto) 8.4, Eos % (Auto) 10.5 H, Baso % (Auto) 1.1 H, Absolute Neuts (auto) 3.5, Absolute Lymphs (auto) 0.77 L, Nucleated RBC % 0, PT 41.4 H, INR 4.2 H*, Sodium 137, Potassium 4.4, Chloride 96 L, Carbon Dioxide 25.6, Anion Gap 16 H, BUN 46 H, Creatinine 9.33 H*, Estim Creat Clear Calc 6.14 L*, Est GFR (MDRD) Non-Af 4 L, BUN/Creatinine Ratio 5.0 L, Glucose 96, Calcium 8.1 Micro: Microbiology 04/29/25 19:14 Mucosa - Nasopharyngeal Respiratory Panel (PCR) - Final 04/29/25 20:16 Nasal Secretion SARS-CoV-2 Antigen (Rapid) - Final Radiography Diagnostic Testing: Radiology Impression Abdomen CT 04/30/25 14:02 IMPRESSION: Moderate-sized bilateral pleural effusions. Bilateral lower lobe compressive atelectasis and/or infiltrates. Hepatosplenomegaly, unchanged. Oval 10 mm low-density within the left lobe of the liver, new or increased since the previous study and may represent a cyst. Lack of IV contrast limits further evaluation. Cardiomegaly, increased since the previous study. Bilateral nephrectomies, new since the previous study. Extensive atherosclerosis. Reading Location: [facility] Physical Exam Const alert and no apparent distress HEENT head/scalp atraumatic and moist oral mucous membranes Resp normal respiratory effort, no retractions, no use of accessory muscles and clear to auscultation bilaterally Cardio regular rate, regular rhythm, S1 normal heart sound and S2 normal heart sound GI normal to inspection, nondistended, normoactive bowel sounds, soft to palpation, non-tender and non-distended Extremity normal to inspection and full ROM Assessment & Plan Assessment/Plan (1) Hypoxia: PLAN: Plan Acute hypoxia secondary to fluid overload from missed dialysis * Chest x-ray suggestive of fluid overload, patient dropped to 88% on room air and then 86, requiring 4 L now to maintain sats * nephrology consulted for dialysis * Patient does not make urine given that she is status post bilateral nephrectomies * Overall improved. ESRD on HD * Secondary to congenital polycystic kidney disease status with bilateral nephrectomy * Follows with Dr. José Luis Kaba * Consult nephrology * Renal diet * Daily weights, I's and O's Hypertension * Patient significantly hypertensive, continue home medications, suspect this will improve with dialysis * Appears she has struggled with hypotension with dialysis previously and had even taken midodrine per cardiology note reviewed from 04/16/2025, hesitant to make changes in light of this * Will further determine depending on patient's postdialysis blood pressures * Advise close outpatient follow-up for further adjustment and monitoring blood pressure Abdominal pain * Unclear etiology * Verified with project buyer patient has lost roughly 5 kg over the past month. * CT showed 10mm left lobe of the liver. Ultrasound showed hepatic cysts. History of DVT * Patient on Coumadin, currently held * INR elevated at 4.5, repeat in the a.m., * Likely complicated by not eating. Hx of CAD and defibrillator * w/ previous stenting * Continue home medications * Patient also has home defibrillator due to history of torsades de pointes and underwent implantation July 2016 GERD * Continue PPI Hypothyroidism * Continue Synthroid DVT ppx: anticoagulated Charges/Coding Visit Charges Inpatient E&M: 42841 Subs Hosp L2
--- NOTE | 2025-05-01 08:19 | US_ITS ---
PROCEDURE: ABDOMEN LIMITED 05/01/2025 REASON FOR EXAM: HEPATIC LESION TECHNIQUE: Procedure Code: USABDL Modality: US Procedure: ABDOMEN LIMITED COMPARISON: 04/30/2025. FINDINGS: LIVER: The liver measures 17.5 cm in length. Echogenicity is increased and heterogeneous consistent with fatty infiltration. Three simple cysts are identified, measuring 1.0 x 1.0 x 0.8 cm and 1.3 x 1.1 x 0.8 cm in the left hepatic lobe, and 1.05 x 1.4 x 0.8 cm in the right hepatic lobe. No solid hepatic masses are seen. BILE DUCTS: Intrahepatic ducts are not dilated. The common bile duct measures 5.3 mm. GALLBLADDER: The gallbladder is slightly contracted with a 2 mm polyp. No stones, sludge, or wall thickening are seen. Wall measures 3.0 mm. PANCREAS: The pancreas is heterogeneous in echotexture without focal mass. No pancreatic ductal dilatation is seen. RIGHT KIDNEY: Not visualized, consistent with history of bilateral nephrectomy. ADDITIONAL FINDINGS: A small right pleural effusion is noted incidentally. US/Abdomen Limited IMPRESSION: Fatty liver with three small benign-appearing hepatic cysts. Slightly contracted gallbladder containing a 2 mm polyp, without evidence of ch olelithiasis or cholecystitis. Heterogeneous pancreatic echotexture without ductal dilatation. History of bilateral nephrectomy. Small right pleural effusion. Reading Location: [address]
[2025-05-01] MEDS: 0.9% Normal Saline 1,000 ML IV.SOLN. 1000 ML OPERA.SITE (12:45)
[2025-05-01] MEDS: PureFlow B 2K Dialysis Soln 1 BAG 6 BAG PF (12:47)
--- NOTE | 2025-05-01 12:51 | PN.RENAL_ITS ---
Subjective Subjective somewhat better Objective Data Objective Data Vital Signs: Vital Signs Temp Pulse Resp BP Pulse Ox O2 Del Method O2 Flow Rate 97.9 F 63 16 160/64 H 100 Nasal Cannula 2 05/01/25 10:45 05/01/25 12:28 05/01/25 12:28 05/01/25 12:28 05/01/25 12:28 05/01/25 12:28 05/01/25 12:28 Oxygen Flow Rate (L/min) 2 Oxygen Delivery Method Nasal Cannula Weight: 76.1 kg Body Mass Index (BMI) 30.7 Intake & Output: Intake and Output for Last 24 Hours 04/29/25 04/30/25 05/01/25 23:59 23:59 23:59 Intake Total 1460 / 1460 Output Total 2500 / 2500 2720 / 2720 Balance -2500 / -2200 -1260 / -1260 Lab / Micro Data 05/01/25 06:32 05/01/25 06:32 Labs: Laboratory Results - last 24 hr 04/30/25 05:41: Total Bilirubin 0.46, Direct Bilirubin 0.21, AST 12, ALT 16, Alkaline Phosphatase 52, Total Protein 5.9, Albumin 3.8, Globulin 2.1 L 05/01/25 06:32: WBC 5.4, RBC 3.61 L, Hgb 10.1 L, Hct 31.5 L, MCV 87.3, MCH 28.0, MCHC 32.1, RDW Std Deviation 50.4 H, RDW Coeff of Tana 15.9 H, Plt Count 257, MPV 9.1, Immature Gran % (Auto) 0.400, Neut % (Auto) 65.2, Lymph % (Auto) 14.4 L, [place] % (Auto) 8.4, Eos % (Auto) 10.5 H, Baso % (Auto) 1.1 H, Absolute Neuts (auto) 3.5, Absolute Lymphs (auto) 0.77 L, Nucleated RBC % 0, PT 41.4 H, INR 4.2 H*, Sodium 137, Potassium 4.4, Chloride 96 L, Carbon Dioxide 25.6, Anion Gap 16 H, BUN 46 H, Creatinine 9.33 H*, Estim Creat Clear Calc 6.14 L*, Est GFR (MDRD) Non-Af 4 L, BUN/Creatinine Ratio 5.0 L, Glucose 96, Calcium 8.1 Micro: Microbiology 04/29/25 19:14 Mucosa - Nasopharyngeal Respiratory Panel (PCR) - Final 04/29/25 20:16 Nasal Secretion SARS-CoV-2 Antigen (Rapid) - Final Radiography Diagnostic Testing: Radiology Impression Abdomen CT 04/30/25 14:02 IMPRESSION: Moderate-sized bilateral pleural effusions. Bilateral lower lobe compressive atelectasis and/or infiltrates. Hepatosplenomegaly, unchanged. Oval 10 mm low-density within the left lobe of the liver, new or increased since the previous study and may represent a cyst. Lack of IV contrast limits further evaluation. Cardiomegaly, increased since the previous study. Bilateral nephrectomies, new since the previous study. Extensive atherosclerosis. Reading Location: [facility] Abdomen Ultrasound 05/01/25 08:19 IMPRESSION: Fatty liver with three small benign-appearing hepatic cysts. Slightly contracted gallbladder containing a 2 mm polyp, without evidence of cholelithiasis or cholecystitis. Heterogeneous pancreatic echotexture without ductal dilatation. History of bilateral nephrectomy. Small right pleural effusion. Reading Location: [address] Physical Exam Narrative Alert awake oriented x 3 no obvious distress no pallor no icterus no JVD s1s2 no murmurs lungs clear abdomen soft no organomegaly no edema Assessment & Plan Assessment/Plan (1) ESRD (end stage renal disease) on dialysis: PLAN: HD today CT abd not impressive cyst on liver, to be expected from history of PKD will plan for HD with fluid removal today again dw staff
[2025-05-01] MEDS: SEVELAMER CARBONATE 800 MG TABLET 4000 MG PO (12:52)
--- NOTE | 2025-05-01 15:31 | DS.PCM_ITS ---
Providers Date of Admission: 04/30/25 Primary Care Physician: Dr. Tai Vieyra MD Consultations 04/29/25 16:21 Consult: Nephrology Routine Consulting Provider: Watson Dalal Reason for Consult: hypoxia 2/2 fluid overload EMERGENT Consult: No MD Notified: Yes Date Notified: 04/29/25 Time Notified: 15:52 Method of Notification: ED Physician Initiated Reason For Visit: HYPOXIA SECONDARY TO FLUID OVERLOAD Diagnosis Discharge Diagnosis (1) Hypoxia: Status: Acute Code(s): R09.02 - Hypoxemia Plan Acute hypoxia secondary to fluid overload from missed dialysis * Chest x-ray suggestive of fluid overload, patient dropped to 88% on room air and then 86, requiring 4 L now to maintain sats * nephrology consulted for dialysis * Patient does not make urine given that she is status post bilateral nephrectomies * Overall improved. ESRD on HD * Secondary to congenital polycystic kidney disease status with bilateral nephrectomy * Follows with Dr. José Luis Kaba * Consult nephrology * Renal diet * Daily weights, I's and O's Hypertension * Patient significantly hypertensive, continue home medications, suspect this will improve with dialysis * Appears she has struggled with hypotension with dialysis previously and had even taken midodrine per cardiology note reviewed from 04/16/2025, hesitant to make changes in light of this * Will further determine depending on patient's postdialysis blood pressures * Advise close outpatient follow-up for further adjustment and monitoring blood pressure Abdominal pain * Unclear etiology * Verified with boiler water tester patient has lost roughly 5 kg over the past month. * CT showed 10mm left lobe of the liver. Ultrasound showed hepatic cysts. * Follow up with GI as outpt. History of DVT * Patient on Coumadin, currently held * INR elevated at 4.2 * Likely complicated by not eating. resume warfarin in 48 hours. Hx of CAD and defibrillator * w/ previous stenting * Continue home medications * Patient also has home defibrillator due to history of torsades de pointes and underwent implantation July 2016 GERD * Continue PPI Hypothyroidism * Continue Synthroid DVT ppx: anticoagulated Medications at Discharge Home Medications sertraline 50 mg tablet 75 mg PO QHS depression 01/19/17 cholecalciferol (vitamin D3) 25 mcg (1,000 unit) tablet 1,000 unit PO QDAY supplement 10/24/17 sevelamer carbonate 800 mg tablet 4,000 mg PO TIDCM binder 30 days #90 tabs 06/11/21 nitroglycerin 0.4 mg sublingual tablet 0.4 mg sublingual Q5M PRN Chest Pain #25 tabs 10/14/22 atorvastatin 10 mg tablet 10 mg PO DAILY cholesterol #30 tabs 10/11/24 levothyroxine 25 mcg tablet 25 mcg PO QDAY thyroid 10/11/24 warfarin 2 mg tablet 9 mg PO SUTUTHSA blood thinner 10/11/24 Held on 05/01/25. Instructions: Resume on 05/04/25. warfarin 3 mg tablet 8 mg PO MOWEFR blood thinner 10/11/24 Held on 05/01/25. Instructions: Resume on 05/03/25. zolpidem 10 mg tablet 10 mg PO QHS PRN insomnia 10/11/24 carvedilol 6.25 mg tablet 6.25 mg PO BID blood pressure 03/29/25 amlodipine 10 mg tablet 10 mg PO DAILY 30 days #30 tabs 04/01/25 azelastine 137 mcg (0.1 %) nasal spray 1 spray intranasal BID 04/16/25 benzonatate 100 mg capsule 100 mg PO TID PRN cough #30 caps 04/25/25 omeprazole 40 mg capsule,delayed release 40 mg PO DAILY #30 caps 04/29/25 telmisartan 80 mg tablet 80 mg PO BID 04/29/25 warfarin 5 mg tablet 5 mg PO DAILY 04/29/25 Held on 05/01/25. Instructions: Resume on 05/03/25. Hospital Course Operations None Procedures Dialysis Summary of Care Provided Minutes Spent on Discharge: 32 Weight / BMI Weight Weight: 76.1 kg Body Mass Index (BMI) 30.7 ABG / Lab / Microbiology Data 05/01/25 06:32 05/01/25 06:32 Laboratory: Laboratory Results - last 24 hr 04/30/25 05:41: Total Bilirubin 0.46, Direct Bilirubin 0.21, AST 12, ALT 16, Alkaline Phosphatase 52, Total Protein 5.9, Albumin 3.8, Globulin 2.1 L 05/01/25 06:32: WBC 5.4, RBC 3.61 L, Hgb 10.1 L, Hct 31.5 L, MCV 87.3, MCH 28.0, MCHC 32.1, RDW Std Deviation 50.4 H, RDW Coeff of Tana 15.9 H, Plt Count 257, MPV 9.1, Immature Gran % (Auto) 0.400, Neut % (Auto) 65.2, Lymph % (Auto) 14.4 L, [place] % (Auto) 8.4, Eos % (Auto) 10.5 H, Baso % (Auto) 1.1 H, Absolute Neuts (auto) 3.5, Absolute Lymphs (auto) 0.77 L, Nucleated RBC % 0, PT 41.4 H, INR 4.2 H*, Sodium 137, Potassium 4.4, Chloride 96 L, Carbon Dioxide 25.6, Anion Gap 16 H, BUN 46 H, Creatinine 9.33 H*, Estim Creat Clear Calc 6.14 L*, Est GFR (MDRD) Non-Af 4 L, BUN/Creatinine Ratio 5.0 L, Glucose 96, Calcium 8.1 Microbiology: Microbiology 04/29/25 19:14 Mucosa - Nasopharyngeal Respiratory Panel (PCR) - Final 04/29/25 20:16 Nasal Secretion SARS-CoV-2 Antigen (Rapid) - Final Radiography Diagnostic Testing: Radiology Impression Abdomen CT 04/30/25 14:02 IMPRESSION: Moderate-sized bilateral pleural effusions. Bilateral lower lobe compressive atelectasis and/or infiltrates. Hepatosplenomegaly, unchanged. Oval 10 mm low-density within the left lobe of the liver, new or increased since the previous study and may represent a cyst. Lack of IV contrast limits further evaluation. Cardiomegaly, increased since the previous study. Bilateral nephrectomies, new since the previous study. Extensive atherosclerosis. Reading Location: [id number] Abdomen Ultrasound 05/01/25 08:19 IMPRESSION: Fatty liver with three small benign-appearing hepatic cysts. Slightly contracted gallbladder containing a 2 mm polyp, without evidence of cholelithiasis or cholecystitis. Heterogeneous pancreatic echotexture without ductal dilatation. History of bilateral nephrectomy. Small right pleural effusion. Reading Location: [address] D/C Instructions DC O2, CPAP, BIPAP Needs Home O2 Discharge instructions: No Meaningful Use Info Meaningful Use Meaningful Use Diagnoses (Choose all that apply): None applicable Discharge Plan Admission Admit Date/Time: 04/30/25 15:00 Primary Reason for Your Visit: respiratory distress. Attending Provider: Tai Garza Primary Care Provider: Tai Vieyra Consulting Providers: Watson Dalal; Manuela Mancini Instructions Patient Instructions: ED Chest Pain, Noncardiac, ED Peptic Ulcer Additional Instructions / Restrictions: Follow up with your primary care physician and have your INR checked next week. Please follow up with gastroenterology given you weight loss. Discharge Orders/Prescriptions Prescriptions: New omeprazole 40 mg capsule,delayed release(DR/EC) 40 mg PO DAILY Qty: 30 0RF Continued cholecalciferol (vitamin D3) 1,000 unit tablet 1,000 unit PO QDAY sevelamer carbonate 800 mg tablet 4,000 mg PO TIDCM 30 Days Qty: 90 levothyroxine 25 mcg tablet 25 mcg PO QDAY zolpidem 10 mg tablet 10 mg PO QHS PRN (Reason: insomnia) atorvastatin 10 mg tablet 10 mg PO DAILY Qty: 30 12RF azelastine 137 mcg (0.1 %) spray,non-aerosol 1 spray intranasal BID Rx Instructions: administer into each nostril sertraline 50 MG tablet 75 mg PO QHS carvedilol 6.25 mg tablet 6.25 mg PO BID amlodipine 10 mg Tablet 10 mg PO DAILY 30 Days Qty: 30 0RF benzonatate 100 mg capsule 100 mg PO TID PRN (Reason: cough) Qty: 30 0RF telmisartan 80 mg tablet 80 mg PO BID nitroglycerin 0.4 mg tablet, sublingual 0.4 mg SUBLINGUAL Q5M PRN (Reason: Chest Pain) Qty: 25 2RF Held warfarin 3 mg tablet 8 mg PO MOWEFR Hold Instructions: Resume on 05/03/25. Patient Comments: WITH 5MG warfarin 2 mg tablet 9 mg PO SUTUTHSA Hold Instructions: Resume on 05/04/25. Patient Comments: WITH 5MG warfarin 5 mg tablet 5 mg PO DAILY Hold Instructions: Resume on 05/03/25. Patient Comments: WITH 2MG AND 3MG UD Referrals / Follow Up: [facility] [Provider Group] - Within 1 Month Tai Vieyra MD [Primary Care Provider, Family Practice] - 5-7 Days Disposition Disposition (needs filled in before D/C Order can be placed): Home, Self Care Charges/Coding Visit Charges Inpatient E&M: 38282 Disch Hosp >30min
--- NOTE | 2025-05-01 16:49 | PHA.DC_ITS ---
Pharmacy [facility] Counseling Pharmacy Service has performed discharge medication reconciliation and counseling for this patient. 1. OMEPRAZOLE 40MG PO DAILY 2. HOLD WARFARIN UNTIL 05/03 The patient's discharge medication list was reviewed for discrepancies and discrepancies were resolved. The patient was counseled on the following discharge medications and changes in medications for homegoing were reviewed. The Reason for Use, instructions for use, and potential side effects were reviewed for all new medications. The patient's questions regarding all of their medications were answered. The patient was able to verbally demonstrate an understanding of their discharge medications. Medications at Discharge Home Medications sertraline 50 mg tablet 75 mg PO QHS depression 01/19/17 cholecalciferol (vitamin D3) 25 mcg (1,000 unit) tablet 1,000 unit PO QDAY supplement 10/24/17 sevelamer carbonate 800 mg tablet 4,000 mg PO TIDCM binder 30 days #90 tabs 06/11/21 nitroglycerin 0.4 mg sublingual tablet 0.4 mg sublingual Q5M PRN Chest Pain #25 tabs 10/14/22 atorvastatin 10 mg tablet 10 mg PO DAILY cholesterol #30 tabs 10/11/24 levothyroxine 25 mcg tablet 25 mcg PO QDAY thyroid 10/11/24 warfarin 2 mg tablet 9 mg PO SUTUTHSA blood thinner 10/11/24 Held on 05/01/25. Instructions: Resume on 05/04/25. warfarin 3 mg tablet 8 mg PO MOWEFR blood thinner 10/11/24 Held on 05/01/25. Instructions: Resume on 05/03/25. zolpidem 10 mg tablet 10 mg PO QHS PRN insomnia 10/11/24 carvedilol 6.25 mg tablet 6.25 mg PO BID blood pressure 03/29/25 amlodipine 10 mg tablet 10 mg PO DAILY 30 days #30 tabs 04/01/25 azelastine 137 mcg (0.1 %) nasal spray 1 spray intranasal BID 04/16/25 benzonatate 100 mg capsule 100 mg PO TID PRN cough #30 caps 04/25/25 omeprazole 40 mg capsule,delayed release 40 mg PO DAILY #30 caps 04/29/25 telmisartan 80 mg tablet 80 mg PO BID 04/29/25 warfarin 5 mg tablet 5 mg PO DAILY 04/29/25 Held on 05/01/25. Instructions: Resume on 05/03/25.
--- NOTE | 2025-05-01 17:14 | CASEMGMT ---
CONSTANZA VERDIN NOTE: Home O2 amb testing has been completed. Pt qualifies for home o2 @ 2 l/m w/exertion. RN VELVET spoke w/pt about DME co preferences. She chose [facility]. Dr Garza made aware. Script for O2 prepared and sent to Dr Garza to ED via tube system to sign. Charge nurse made aware. Green sheet on chart. Amy PABON RN, CM
== END 2025-05-01 18:59 | disposition home or self-care (01) | DRG 640 ==
LOC: ED 15:46 → PCU 15:56
PROVIDERS: Admitting Provider Internal Medicine; Emergency Provider Emergency Medicine; PCP Family Medicine
DX: E87.70 Fluid overload, unspecified (principal); N18.6 End stage renal disease; I13.2 Hypertensive heart and chronic kidney disease with heart failure and with stage 5 chronic kidney disease, or end stage renal disease; J90 Pleural effusion, not elsewhere classified; I50.32 Chronic diastolic (congestive) heart failure; Q61.3 Polycystic kidney, unspecified; K76.89 Other specified diseases of liver; E03.9 Hypothyroidism, unspecified; K21.9 Gastro-esophageal reflux disease without esophagitis; E78.5 Hyperlipidemia, unspecified; I25.10 Atherosclerotic heart disease of native coronary artery without angina pectoris; I25.5 Ischemic cardiomyopathy; Z99.2 Dependence on renal dialysis; Z79.01 Long term (current) use of anticoagulants; Z79.890 Hormone replacement therapy; Z79.899 Other long term (current) drug therapy; R07.9 Chest pain, unspecified; R79.1 Abnormal coagulation profile; Z95.5 Presence of coronary angioplasty implant and graft; Z86.718 Personal history of other venous thrombosis and embolism; R09.02 Hypoxemia; Z95.810 Presence of automatic (implantable) cardiac defibrillator; Z90.5 Acquired absence of kidney
CPT/HCPCS: 36415; 71046; 74176; 76705; 80048; 80076; 84484; 85025; 85610; 87633; 87811; 90937; 93005; 97802; 99285; A4216; G0257

== ENCOUNTER 2025-05-03 10:06 | Outpatient (RCR) | payer MEDICARE, MEDICAID, SELFPAY ==
[2025-05-03 12:47] LABS: Prothrombin Time (Protime)PT. 21.6 SECONDS (11.7-14.9)
[2025-05-06 12:30] LABS: Prothrombin Time (Protime)PT. 21.8 SECONDS (11.7-14.9)
== END 2025-05-10 23:59 ==
LOC: BWCLAB 10:06
PROVIDERS: PCP Family Medicine; Referring Provider Family Medicine; Visit Provider Family Medicine
DX: I82.91 Chronic embolism and thrombosis of unspecified vein (principal)
CPT/HCPCS: 36415; 85610

== ENCOUNTER 2025-05-28 10:24 | Outpatient (RCR) | payer MEDICARE, MEDICAID, SELFPAY ==
[2025-05-28 11:05] LABS: Prothrombin Time (Protime)PT. 30.7 SECONDS (11.7-14.9)
== END 2025-06-09 23:59 ==
LOC: BWCLAB 10:24
PROVIDERS: PCP Family Medicine; Referring Provider Family Medicine; Visit Provider Family Medicine
DX: I82.91 Chronic embolism and thrombosis of unspecified vein (principal)
CPT/HCPCS: 36415; 85610

== ENCOUNTER 2025-07-08 09:54 | Outpatient (RCR) | payer MEDICARE, MEDICAID, SELFPAY ==
[2025-07-08 12:37] LABS: Prothrombin Time (Protime)PT. 31.6 SECONDS (11.7-14.9)
== END 2025-07-10 23:59 | disposition home or self-care (01) ==
LOC: BWCLAB 09:54
PROVIDERS: PCP Family Medicine; Referring Provider Family Medicine; Visit Provider Family Medicine
DX: I82.91 Chronic embolism and thrombosis of unspecified vein (principal)
CPT/HCPCS: 36415; 85610